=== PATIENT | male | born 1945 | race Caucasian/White ===

== ENCOUNTER 2025-02-09 16:54 | Inpatient (IN) | payer MEDICARE, OTHER, SELFPAY ==
[2025-02-09 17:35] VITALS: BMI 32.8
--- NOTE | 2025-02-09 18:04 | HP.PCM_ITS ---
HPI - General General Date of Admission: 02/09/25 Date of Service: 02/11/25 Chief Complaint: Here for rehabilitation. HPI Narrative ANDREW ARNOLD, is a 79 Male who presents with followin01/28/2025 Admit [facility] with malaise, tachycardia, after left ganglion cyst removal. Vancomycin, Zosyn, Clindamycin, pressors, panculture, IV fluids ID consult for septic shock 2/2 left hand cellulitis/abscess. Insulin drip, IV fluids for diabetic ketoacidosis, glucose 528. Trend troponin, heparin drip for elevated troponin. Trend AST/ALT for transaminitis 2/2 septic shock. IV fluids, Hold Lisinopril, avoid nephrotoxins for acute kidney injury. 01/29/2025 Blood cultures positive for strep 2 out of 2 bottles, Lactic acid improved from 5.8 to 2.9. Vancomycin, Zosyn, Clindamycin. Urinalysis positive for ketones for DKA. Troponin 247, 1046, 2216 2/2 demand ischemia/sepic shock, Cardiology consulted. 01/30/2025 Echo EF 43% Global systolic dysfunction. Stop IV fluids for acute HFpEF. Change antibiotics from Vancomycin, Zosyn, Clindamycin to PCN G per Infectious Disease. 01/31/2025 CT left hand negative for septic arthritis. SHAHAB to rule out endocarditis. Creatinine 1.65, 2.26, 3.06, Nephrology consulted. Hines catheter with good urine output. 02/01/2025 OR incision and drainage left hand today. PCN G for strep bacteremia, septic shock, left hand abscess/cellulitis. Renal ultrasound negative. Creatinine improved to 2.53. 02/02/2025 Continue PCN G. SHAHAB postponed to 02/05/2025. Lantus 30 units bid for diabetes mellitus II, DKA, sugar improved. Creatinine improved to .95. 02/03/2025 Surgical cultures grew gram positive cocci. Repeat blood culture 02/01/2025 positive growing strep agalactiae. Encephalopathy resolved. Creatinine improved to 1.50. Restart Eliquis soon for atrial fibrillation. 02/04/2025 NSTEMI 2/2 demand ischemia. Decrease Lantus to 25 units bid for Diabetes Mellitus II, DKA. Stop heparin drip for elevated troponin 2/2 demand ischemia 2/2 septic shock. 02/05/2025 SHAHAB negative for vegetations. Continue PCN G for strep bacteremia, repeat blood culture negative. Hemoccult positive, GI recommends restarting Eliquis, no sign of bleeding. 02/06/2025 Ceftriaxone IV at discharge for strep agalactiae for convenience of administration. Restart Lexapro for depression. Nystatin for thrush. 02/07/2025 Flomax, bladderscan, consider hines for urinary retention. Resume Eliquis, GI deferred endoscopy. Fluconazole for 2 weeks for esophageal candidiasis. 02/08/2025 Ceftriaxone IV for 3-4 weeks for strep agalactiae bacteremia. Fluconazole for esophageal candidiasis. 02/09/2025 Admit to TCU with debility, here for rehabilitation, strengthening, intravenous antibiotics, prior to discharge home with significant other. [facility] Medical History History of subdural hematoma TIA (transient ischemic attack) Essential (primary) hypertension Mood disorder Type 2 diabetes mellitus with hyperglycemia Atrial fibrillation Coronary artery disease Blood in stool BPH (benign prostatic hyperplasia) Urinary retention Cellulitis of left hand Abscess of left hand Acute heart failure with preserved ejection fraction (HFpEF) Transaminitis Acute kidney injury Demand ischemia Elevated troponin Diabetic ketoacidosis Acute encephalopathy Streptococcal bacteremia Septic shock Debility Home Medications ?Medication ?Instructions ?Recorded ?Last Taken ?Type apixaban 5 mg tablet (Eliquis) 5 mg PO BID blood thinn er 02/09/25 Unknown History ascorbic acid (vitamin C) 500 mg 500 mg PO .every othe r day 02/09/25 Unknown History capsule supplement aspirin 81 mg tablet 81 mg PO DAILY heart 5 Unknown History bumetanide 1 mg tablet 0.5 mg PO QODAY diuretic 09/04 Unknown History ceftriaxone 2 gram intravenous 2 g IV DAILY infection 02/09/25 Unknown History solution docusate sodium 100 mg capsule 100 mg PO BID bowel 09/04 Unknown History escitalopram oxalate 10 mg tablet 10 mg PO QHS mood Unknown History fluconazole 200 mg tablet 200 mg PO DAILY infection Unknown History insulin glargine 100 unit/mL 5 unit subcut QHS diabete s 02/09/25 Unknown History subcutaneous solution (Lantus U-100 Insulin) lisinopril 5 mg tablet 5 mg PO DAILY heart health 0 8/02/25 Unknown History metoprolol succinate 25 mg 25 mg PO DAILY heart health 02/09/25 Unknown History tablet,extended release 24 hr pantoprazole 40 mg tablet,delayed 40 mg PO BID stomach 02/09/25 Unknown History release potassium chloride 10 mEq 10 meq PO QODAY supplement 0 02/09/25 Unknown History tablet,extended release sennosides 8.6 mg-docusate sodium 1 tab-cap PO BID bow el 02/09/25 Unknown History 50 mg tablet (Senna with Docusate Sodium) simvastatin 40 mg tablet 40 mg PO QHS cholesterol 09/04 Unknown History tamsulosin 0.4 mg capsule 0.4 mg PO .After evening josh l 02/09/25 Unknown History prostate Allergy/AdvReac Type Severity Reaction Status Date / Time pioglitazone (From Actos) AdvReac Other Verified 02/09/25 19:11 Family History Mother COPD (chronic obstructive pulmonary disease) Father Diabetes Grandmother CVA (cerebral vascular accident) Surgical History Status post de Quervain release surgery History of oral cancer History of cardiac cath 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 Gaetano Menendez MD) household members: significant other and other details: Sister in law Smoking Status: Former smoker Smokeless tobacco user: chewing tobacco alcohol intake: never substance use type: does not use ROS Constitutional Constitutional: Reports weakness; Denies chills, fever(s) or weight gain ENT HEENT: Denies headache(s), nasal congestion or nasal discharge Cardiovascular Cardiovascular: Denies chest pain or palpitations Respiratory/Chest Respiratory/Chest: Denies cough, excessive phlegm production or shortness of breath with exertion Gastrointestinal Gastrointestinal: Denies abdominal pain, nausea or vomiting Genitourinary Genitourinary: Denies dysuria Musculoskeletal Musculoskeletal: Denies joint pain or joint swelling Integumentary Integumentary: Denies rash or wounds Neurologic Neurologic: Denies focal weakness, numbness or tingling Psychiatric Psychiatric: Denies anxiety, auditory hallucinations, depression, homicidal ideation or suicidal ideation Physical Exam Const alert General Appearance: cooperative HEENT normocephalic Eyes PERRL and EOMs intact bilaterally Neck supple, no JVD and no carotid bruits Resp normal respiratory effort, normal air movement and clear to auscultation bilaterally Cardio regular rate and regular rhythm GI normal to inspection, nondistended, normoactive bowel sounds, non-tender and non-distended Extremity normal capillary refill Extremity Narrative: RUE PICC, Left hand dressed with Kerlix. General Extremity: Negative for edema Skin no rashes or lesions noted General Skin Exam: no breakdown Psych affect normal Appearance: appropriate Results Lab / Micro Data 02/10/25 06:53 02/10/25 06:53 Assessment & Plan Assessment/Plan (1) Debility: (2) Septic shock: (3) Streptococcal bacteremia: (4) Acute encephalopathy: (5) Diabetic ketoacidosis: (6) Elevated troponin: (7) Demand ischemia: (8) Acute kidney injury: (9) Transaminitis: (10) Acute heart failure with preserved ejection fraction (HFpEF): (11) Abscess of left hand: (12) Cellulitis of left hand: (13) Urinary retention: (14) BPH (benign prostatic hyperplasia): (15) Blood in stool: (16) Coronary artery disease: (17) Atrial fibrillation: (18) Type 2 diabetes mellitus with hyperglycemia: (19) Mood disorder: (20) Essential (primary) hypertension: (21) TIA (transient ischemic attack): (22) History of subdural hematoma: PLAN: Plan 79 year old male with below past medical history hospitalized for septic shock 2/2 left hand abscess/cellulitis, strep agalactiae bacteremia, complicated by encephalopathy, diabetic ketoacidosis, acute kidney injury, transaminitis, elevated troponin 2/2 demand ischemia, acute HFpEF, urinary retention, admitted to TCU with debility, here for rehabilitation, strengthening, intravenous antibiotics, prior to discharge home with significant other. * Debility - PT/OT. * Pain - Tylenol 650mg q6 prn. * Bowel - senna/colace 1 tablet bid. * Adult immunization - Administer pneumonia vaccine, covid vaccine, flu vaccine. * DVT prophylaxis - Hold, reassess after labs back. * Septic shock/left hand abscess/Strep Agalactiae bacteremia - Ceftriaxone 2gm iv daily thru 03/02/2025, Consult Dr. Snyder for expert care. * Esophageal candidiasis - Fluconazole 200mg daily thru 02/20/2025. * GERD - Pantoprazole 40mg bid. * BPH - Tamsulosin 0.4mg daily. * Diabetes Mellitus II - Lantus 5 units qhs, Ozempic 1mg per week if available. * Vitamin C deficiency - Vitamin C 500mg daily. * Coronary artery disease - Metoprolol succinate 25mg daily, Lisinopril 5mg daily, Aspirin 81mg daily. * Chronic HFpEF - Metoprolol succinate 25mg daily, Lisinopril 5mg daily, Bumex 1mg 1/2 tablet every other day. * Hypokalemia - KCL ER 10meq every other day. The following psychotropic medication was present on admission: Lexapro 10mg daily. Psychotropic medication therapy is indicated for a diagnosis of: Major Depression. Based on my clinical evaluation, continuation of the medication is necessary at this time. Gradual dose reduction plan (select one): ____ GDR will be attempted. Will monitor patient symptoms and behaviors in response to GDR. __x__ GRD contraindicated. 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
[2025-02-09 19:00] VITALS: BP 120/51; PULSE 51; RESP 18; TEMP 36.8; O2SAT 94
[2025-02-09] MEDS: Insulin Glargine-YFGN 100 UNIT/ML Pen SC (21:45)
[2025-02-09] MEDS: Senna/Docusate Sodium 1 Tablet PO (21:45)
[2025-02-09 22:00] VITALS: BMI 32.7
--- NOTE | 2025-02-10 01:50 | NURSING ---
Order received for PICC placement due to IV ATB through 02/27/25. Order placed to [facility].
[2025-02-10 07:17] LABS: Hematocrit 23.3 % (40-54); Hemoglobin 7.5 g/dL (13.0-16.5); Immature Granulocytes Count 0.100 X10^3/uL (0.0-0.0); Mean Corp Hgb Conc 32.2 g/dL (32-36); Mean Corpuscular Volume 82.0 fL (80-94); Mean Platelet Vol. 8.4 fl (6.2-12.0); NRBC Flagged by Analyzer 0 % (0-5); Platelet Count 346 K/mm3 (150-450); RBC Distribution Width CV 14.5 % (11.6-14.6); RBC Distribution Width SD 42.7 fl (35.1-43.9); Red Blood Count 2.84 M/mm3 (4.6-6.2); White Blood Count 8.7 K/mm3 (4.4-11.0)
[2025-02-10 07:48] LABS: Anion Gap 11 (5-15); BUN 12 mg/dL (4-19); BUN/Creat Ratio 10.9 RATIO (10-20); Calcium,Total 8.5 mg/dL (7.6-11.0); Carbon Dioxide 25.6 mmol/L (21.0-32.0); Chloride 95 mmol/L (98-108); Estimated Creatinine Clearance 60.99 ml/min (50-250); Glucose 204 mg/dL (70-99); Potassium 3.9 mmol/L (3.3-5.1)
[2025-02-10 09:33] VITALS: BP 101/53; PULSE 88; RESP 16; TEMP 36.7; O2SAT 93
[2025-02-10 09:37] VITALS: PULSE 88
[2025-02-10] MEDS: Senna/Docusate Sodium 1 Tablet PO ×2 (09:37→21:37)
[2025-02-10] MEDS: Tuberculin,Purif.prot.deriv. 50 TU/ML Vial 0.1 ML ID (09:37)
[2025-02-10] MEDS: Metoprolol(XL)Succ 25 MG Tablet PO (09:37)
[2025-02-10 13:30] LABS: Iron 23 ug/dL (65-175); Iron Binding Capacity,Unsat 205 ug/dL (228-428)
[2025-02-10 13:59] LABS: Iron Binding Capacity,Total 228 ug/dL (250-450)
--- NOTE | 2025-02-10 14:23 | RAD_ITS ---
PROCEDURE: CHEST 1 VIEW (PORTABLE) 02/10/2025 REASON FOR EXAM: PICC PLACEMENT TECHNIQUE: Frontal view of the chest. COMPARISON: None. FINDINGS: Hardware: Right-sided PICC line tip is seen near the cavoatrial junction. Heart: Normal size Lungs: Grossly clear Bones: No aggressive process. Other: RAD/Chest 1 View (Portable) IMPRESSION: PICC line in satisfactory position. No acute process in the chest. Reading Location: [facility]
--- NOTE | 2025-02-10 14:30 | PHA.CONS_ITS ---
Documented by User: Sheryl Castillo 02/10/25 16:36 TCU RX Drug Regimen Review Subjective/Objective Subjective/Objective Subjective: TCU Admission. 79 YOM presented to outside ER with malaise/tachycardia following ganglion cyst removal. Hospitalized for septic shock 2/2 left hand abscess/cellulitis, strep agalactiae bacteremia, complicated by encephalopathy, diabetic ketoacidosis, acute kidney injury, transaminitis, elevated troponin 2/2 demand ischemia, acute HFpEF, urinary retention. Admitted to TCU with debility for strengthening, rehabilitation and IV antibiotics. Objective: Allergies pioglitazone (From Gini) Adverse Reaction (Verified 02/09/25 19:11) Other GI irritation Current Medications Generic Name Dose Route Start Last Admin Trade Name Freq PRN Reason Stop Dose Admin Acetaminophen 650 mg 02/09/25 18:32 Acetaminophen 325 Mg Tablet PO Q6H PRN PRN Pain Score 1-10 Apixaban 5 mg 02/09/25 22:00 Apixaban 5 Mg Tablet PO BID [facility] Ascorbic Acid 500 mg 02/11/25 10:00 Ascorbic Acid 500 Mg Tablet PO QODAY@1000 [facility] Aspirin 81 mg 02/10/25 08:00 02/10/25 09:36 Aspirin 81 Mg Tab.Chew PO 81 mg DAILY TEREZA Administration Atorvastatin Calcium 20 mg 02/09/25 22:00 Atorvastatin Calcium 20 Mg Tablet PO QHS TEREZA Bumetanide 0.5 mg 02/11/25 10:00 Bumetanide 0.5 Mg Tablet PO QODAY TEREZA Escitalopram Oxalate 10 mg 02/09/25 22:00 02/09/25 21:45 Escitalopram Oxalate 10 Mg Tablet PO 10 mg QHS TEREZA Administration Fluconazole 200 mg 02/10/25 10:00 02/10/25 09:36 Fluconazole 100 Mg Tablet PO 200 mg DAILY TEREZA Administration Ceftriaxone Sodium 2 gm/ 50 mls @ 100 mls/hr 02/10/25 10:00 Sodium Chloride IV 02/27/25 10:01 Q24 [facility] Insulin Glargine 5 unit 02/09/25 22:00 02/09/25 21:45 Insulin Glargine-Yfgn 100 Unit/Ml Pen SC 5 unit QHS TEREZA Administration Lisinopril 5 mg 02/10/25 10:00 02/10/25 09:37 Lisinopril 5 Mg Tablet PO 5 mg DAILY TEREZA Administration Protocol Metoprolol Succinate 25 mg 02/10/25 10:00 02/10/25 09:37 Metoprolol(Xl)Succ 25 Mg Tablet PO 25 mg DAILY TEREZA Administration Protocol Pantoprazole Sodium 40 mg 02/09/25 22:00 02/10/25 09:36 Pantoprazole Sodium 40 Mg Tablet PO 40 mg BID TEREZA Administration Potassium Chloride 10 meq 02/11/25 08:00 Potassium Chloride Oral Tablet 10 Meq PO QODAY@0800 [facility] Senna/Docusate Sodium 1 tablet 02/09/25 22:00 02/10/25 09:37 Senna/Docusate Sodium 1 Tablet PO 1 tablet BID [facility] Administration Tamsulosin HCl 0.4 mg 02/10/25 18:15 Tamsulosin Hcl 0.4 Mg Capsule PO 1815 [facility] Tuberculin PPD 0.1 ml 02/17/25 10:00 Tuberculin,Purif.Prot.Deriv. 50 Tu/Ml Vial ID 02/17/25 10:01 X1 ONE Problem List History of subdural hematoma (Acute) TIA (transient ischemic attack) (Acute) Essential (primary) hypertension (Acute) Mood disorder (Acute) Type 2 diabetes mellitus with hyperglycemia (Acute) Atrial fibrillation (Acute) Coronary artery disease (Acute) Blood in stool (Acute) BPH (benign prostatic hyperplasia) (Acute) Urinary retention (Acute) Cellulitis of left hand (Acute) Abscess of left hand (Acute) Acute heart failure with preserved ejection fraction (HFpEF) (Acute) Transaminitis (Acute) Acute kidney injury (Acute) Demand ischemia (Acute) Elevated troponin (Acute) Diabetic ketoacidosis (Acute) Acute encephalopathy (Acute) Streptococcal bacteremia (Acute) Septic shock (Acute) Debility (Acute) Vital Signs Temp Pulse Resp BP Pulse Ox O2 Del Method 98.1 F 88 16 101/53 L 93 Room Air 02/10/25 09:33 02/10/25 09:37 02/10/25 09:33 02/10/25 09:33 02/10/25 09:33 02/10/25 09:33 Oxygen Delivery Method Room Air Weight: 94.8 kg Body Mass Index (BMI) 32.7 Sodium 132 mmol/L (133-145) L 02/10/25 06:53 Potassium 3.9 mmol/L (3.3-5.1) 02/10/25 06:53 Chloride 95 mmol/L (98-108) L 02/10/25 06:53 Carbon Dioxide 25.6 mmol/L (21.0-32.0) 02/10/25 06:53 Anion Gap 11 (5-15) 02/10/25 06:53 BUN 12 mg/dL (4-19) 02/10/25 06:53 Creatinine 1.06 mg/dL (0.70-1.20) 02/10/25 06:53 Est GFR (MDRD) Non-Af 71 (>60) 02/10/25 06:53 BUN/Creatinine Ratio 10.9 RATIO (10-20) 02/10/25 06:53 Glucose 204 mg/dL (70-99) H 02/10/25 06:53 Assessment/Plan: 1. Pain: acetaminophen 650mg PO Q6H PRN pain 1-10. No PRN doses given. Please continue to monitor for increased pain and PRN usage. 2. Bowel: senna/docusate 1T PO BID. Please continue to monitor for constipation and diarrhea. No documented bowel movement at this time. 3. Septic shock/left hand abscess/step agalactiae bacteremia: ceftriaxone 2gm IV daily thru 02/27/25. ID consulted. Please continue to monitor for S/S of infection, diarrhea. 4. Esophageal candidiasis: fluconazole 200mg PO daily thru 02/20/25. Please continue to monitor for improvement in candidiasis, diarrhea and renal function. 5. CAD/chronic HFpEF: metoprolol succinate 25mg PO daily, lisinopril 5mg PO daily, aspirin 81mg PO daily, bumetanide 0.5mg PO every other day and atorvastatin 20mg PO QHS (on hold due to elevated transaminitis at previous facility). Please continue to monitor BP (101/53 - 120/51), HR (88), renal function, cough, potassium (last 3.9mmol/L), edema. 6. GERD: pantoprazole 40mg PO BID. Please continue to monitor for S/S of GERD and diarrhea (Anita). 7. Diabetes mellitus II: insulin glargine 5units SC QHS. Please consider ordering a hemoglobin A1c as there is no level in the chart. Thanks. Please continue to monitor glucose (last 198mg/dL) and S/S of hypoglycemia. 8. BPH: tamsulosin 0.4mg PO daily. Please continue to monitor for S/S of BPH and BP. 9. Hypokalemia: potassium chloride 10meq PO every other day. Please continue to monitor potassium (last 3.9mmol/L). 10. Vitamin C deficiency: ascorbic acid 500mg PO daily. Please continue to monitor. Assessment/Plan for indications treated with psychotropic medications: 1. Major depression: escitalopram 10mg PO daily. Please see physician note regarding GDR. Monitor for diarrhea, nausea, headache, anxiety or drowsiness, suicidal thoughts or behaviors (Boxed Warning), symptoms of bleeding, symptoms of serotonin syndrome (including agitation, confusion, hyperreflexia, rigidity/myoclonus, tremor, tachycardia, tachypnea), sodium levels (last Na =132mmol/L). Monitor for efficacy including resident symptoms, behaviors and indications of distress. Monitor for tolerability including mental status, cognition, excessive sleepiness, withdrawal or decreased participation in activities and decline in physical functioning. Maximize use of nonpharmacologic/behavioral interventions to facilitate dose reduction or discontinuation as appropriate. Please evaluate the appropriateness of GDR unless contraindicated. If appropriate, GDR should be attempted in 2 separate quarters within the first year of use or admission to TCU. If GDR attempted, monitor resident symptoms/behaviors. Medical chart and medication regimen reviewed. The following medication irregularities or issues were identified: 1. Insulin glargine 5units SC QHS. Please consider ordering a hemoglobin A1c as there is no level in the chart. Thanks. Date Date of Note: 02/10/25 Documented by User: Dr. Gaetano Menendez MD 02/10/25 17:10 TCU RX Drug Regimen Review Provider Comments Provider responsibility Provider Comments to Recommendations by Pharmacy Agree
[2025-02-10] MEDS: 0.9% Normal Saline 250 ML IV.SOLN. IV (19:02)
[2025-02-10] MEDS: Ceftriaxone 2 GM in 0.9% Normal Saline (50mL MB+) 50 ML IV (19:02)
[2025-02-10] MEDS: Insulin Glargine-YFGN 100 UNIT/ML Pen 30 UNIT SC (21:36)
--- NOTE | 2025-02-11 07:09 | NURSING ---
dr Snyder texted this AM for consult order
--- NOTE | 2025-02-11 08:15 | NURSING ---
infusion center called pt will get blood tomorrow morning.
[2025-02-11 08:21] VITALS: BP 116/61; PULSE 79; RESP 18; TEMP 36.1; O2SAT 93
[2025-02-11 08:24] VITALS: PULSE 79
[2025-02-11] MEDS: Senna/Docusate Sodium 1 Tablet PO ×2 (08:24→20:42)
[2025-02-11] MEDS: Metoprolol(XL)Succ 25 MG Tablet PO (08:24)
[2025-02-11] MEDS: Potassium Chloride Oral Tablet 10 MEQ PO (08:24)
[2025-02-11] MEDS: 0.9% Saline Lock 10 ML Syringe IV ×2 (08:26→20:44)
[2025-02-11] MEDS: Ceftriaxone 2 GM in 0.9% Normal Saline (50mL MB+) 50 ML IV (08:27)
--- NOTE | 2025-02-11 10:50 | NURSING ---
I.D. here to see pt, reviewing chart
--- NOTE | 2025-02-11 11:30 | CON.PCM.ID_ITS ---
Assessment & Plan Assessment/Plan (1) Abscess of left hand: (2) Streptococcal bacteremia: PLAN: Reviewed [facility] records. Overall much improved. Ceftriaxone until 02/27, fluconazole until 02/20. Will follow, thank you (3) Esophageal candidiasis: HPI Consult Data Date of Consult: 02/11/25 HPI Narrative Reason for Consultation: hand infection HPI Narrative: ANDREW ARNOLD, is a 79 M who presented to [facility] 01/28/25 with several days worsening L hand pain, redness, swelling after ganglion cyst removal. Had associated fever and chills. Admitted with septic shock, started on vanc/zosyn/clinda. Also with DKA at that time. Seen by ID (Dr. Norman). Taken to OR 02/01 for I&D. Bcx with GBS. Picc placed. EGD showed esophagitis. Discharged to TCU on ceftriaxone and po fluc. Feeling better, no issues with picc, hand much improved, no n/v/d. Full ROS performed and neg except as noted above. [facility] Medical History History of subdural hematoma TIA (transient ischemic attack) Essential (primary) hypertension Mood disorder Type 2 diabetes mellitus with hyperglycemia Atrial fibrillation Coronary artery disease Blood in stool BPH (benign prostatic hyperplasia) Urinary retention Cellulitis of left hand Abscess of left hand Acute heart failure with preserved ejection fraction (HFpEF) Transaminitis Acute kidney injury Demand ischemia Elevated troponin Diabetic ketoacidosis Acute encephalopathy Streptococcal bacteremia Septic shock Debility Home Medications ?Medication ?Instructions ?Recorded ?Last Taken ?Type apixaban 5 mg tablet (Eliquis) 5 mg PO BID blood thinn er 02/09/25 Unknown History ascorbic acid (vitamin C) 500 mg 500 mg PO .every othe r day 02/09/25 Unknown History capsule supplement aspirin 81 mg tablet 81 mg PO DAILY heart 5 Unknown History bumetanide 1 mg tablet 0.5 mg PO QODAY diuretic 09/04 Unknown History ceftriaxone 2 gram intravenous 2 g IV DAILY infection 02/09/25 Unknown History solution docusate sodium 100 mg capsule 100 mg PO BID bowel 09/04 Unknown History escitalopram oxalate 10 mg tablet 10 mg PO QHS mood Unknown History fluconazole 200 mg tablet 200 mg PO DAILY infection Unknown History insulin glargine 100 unit/mL 5 unit subcut QHS diabete s 02/09/25 Unknown History subcutaneous solution (Lantus U-100 Insulin) lisinopril 5 mg tablet 5 mg PO DAILY heart health 0 02/09/25 Unknown History metoprolol succinate 25 mg 25 mg PO DAILY heart health 02/09/25 Unknown History tablet,extended release 24 hr pantoprazole 40 mg tablet,delayed 40 mg PO BID stomach 02/09/25 Unknown History release potassium chloride 10 mEq 10 meq PO QODAY supplement 0 02/09/25 Unknown History tablet,extended release sennosides 8.6 mg-docusate sodium 1 tab-cap PO BID bow el 02/09/25 Unknown History 50 mg tablet (Senna with Docusate Sodium) simvastatin 40 mg tablet 40 mg PO QHS cholesterol 09/04 Unknown History tamsulosin 0.4 mg capsule 0.4 mg PO .After evening josh l 02/09/25 Unknown History prostate Allergy/AdvReac Type Severity Reaction Status Date / Time pioglitazone (From Actos) AdvReac Other Verified 02/09/25 19:11 Family History Mother COPD (chronic obstructive pulmonary disease) Father Diabetes Grandmother CVA (cerebral vascular accident) Surgical History Status post de Quervain release surgery History of oral cancer History of cardiac cath 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 Gaetano Menendez MD) household members: significant other and other details: Sister in law Smoking Status: Former smoker Smokeless tobacco user: chewing tobacco alcohol intake: never substance use type: does not use Physical Exam Const alert and no apparent distress General Appearance: cooperative HEENT normocephalic and head/scalp atraumatic Eyes PERRL and EOMs intact bilaterally Neck supple and No nodes Resp normal air movement and clear to auscultation bilaterally Cardio regular rate and regular rhythm GI soft to palpation, non-tender and non-distended Extremity General Extremity: Negative for edema Skin no rashes or lesions noted Skin Narrative: L hand wrapped, minimal swelling, no redness, no drainage. Neuro CN's II-XII intact bilaterally Lab / Micro Data Attestation: I reviewed the patient's lab results. 02/10/25 06:53 02/10/25 06:53 Labs: Laboratory Results - last 24 hr 02/10/25 06:53: Hemoglobin A1c 8.3 H, Iron 23 L, TIBC 228 L, Iron Saturation 10.1, Unsaturated IBC 205 L 02/10/25 16:33: POC Glucose 349 H 02/10/25 17:12: Blood Type A POSITIVE, Antibody Screen NEGATIVE, Crossmatch See Detail 02/10/25 21:33: POC Glucose 317 H 02/11/25 06:24: POC Glucose 190 H Imaging Radiology Impression Chest X-Ray 02/10/25 14:23 IMPRESSION: PICC line in satisfactory position. No acute process in the chest. Reading Location[facility]
[2025-02-11 11:44] VITALS: PULSE 78; RESP 18
--- NOTE | 2025-02-11 12:02 | NURSING ---
dr munoz notified of sugar 100, new order to administer 5 units of humalog instead of 10units. insulin adjusted at bedtime also
--- NOTE | 2025-02-11 17:05 | CASEMGMT ---
Social Work MARY notified by RN that pt made comments of being better off during the end of his PT session. SW immediately met with pt in therapy gym, introduced self and role, and propelled pt back to his room. SW spoke with patient for about 40 minutes. Completed initial assessment throughout conversation. Pt wishes to be DNR-CCA, no intubation. Nursing notified. Educated to Medicare benefit and IV ATB through 02/27. Pt's goal is to DC home with SOMigdalia, of 5.5 years. SW inquired about advance directives and pt states his bankruptcy attorney has those and agreed to sign release of records for this worker to retrieve those. SW explored pt's comments with DIRECTOR OF HEALTH CARE MARKETING. Pt stated, I should have never said that. I was just joking. People don't know me here. SW thanked pt for sharing his feelings as this worker and staff are here to assist pt. Pt asked if this conversation was confidential. SW confirmed. This worker explored feelings further, assured no judgement, as this worker wants to meet pt where he is at and determine how to assist pt moving forward. Pt agreed to continue speaking with this worker. SW inquired if pt had thoughts of going to sleep and not waking up in the last 30 days. Pt explained he only had those thoughts in the last two weeks, once or twice since the injury/cellulitis started in his left hand, which lead to TCU admission. Pt and SW identified the trigger to these thoughts are the pain in his hand, which pt made this comment while in therapy. Pt states he was only speaking out of pain, but once pain subsides, so do those thoughts of being better off . SW pressed further on thoughts of how pt would kill himself, intentions, plans. Pt visibly thought about those questions, but stated I can't answer that question, as he did not have a plan, and genuinely had not thought further about harming himself. SW provided possible examples such as strangulation, overdosing on medications, using a gun or other lethal means. Pt denied and does not have guns or access to ample medications at home. Pt denied known family history of suicide. SW asked pt to promise to notify this worker or other staff member if thoughts continue, intensify or if plans develop. Pt promised. SW explored protective factors. Pt identified his SO, Migdalia, as a protective factor and he does not want to leave her behind to live life without me, along with his other friends. Pt could not identify additional protective factors, though. SW questioned if Migdalia was going to be 'enough' of a protective factor to not act on future thoughts of suicide. Pt responded, you're good jokingly, but then confirmed she is his strongest protective factor. SW explored latter day. Pt states he believes in God, but does not have an opinion on suicide being a sin, as he began to analyze if God states suicide is a sin. Pt is sporadic with his thoughts at times. SW provided ongoing active listening and probed further as appropriate. Pt shared stories on his longterm, past marriage and 's , the of his daughter four years after his , his history of health issues, and his connection with current SO. SW explored pt's symptoms of depression and grief from loss of his about 8 years ago, and dtr. Pt stated his PCP started him on an antidepressant and referred him to grief support through hospice. Pt attended at the time. Pt shared he has feelings of guilt that stem from him continuing to live and dying a year after her colon cancer dx. SW discussed feelings and stages of grief. SW offered counseling but pt denied. SW provided ongoing emotional and verbal support during life reflection. Pt expressed gratitude several times for conversation with this worker. SW concluded conversation with ensuring pt notifies staff of any further feelings/thoughts/plans/intents of suicide, and this worker will communicate with Dr. Menendez on pain being a trigger, to determine if pt is on an appropriate pain medication regime. Pt agreed and appreciative. - SW left written communication with Dr. Menendez on above and request for adjusting pain medication regime. - SW concluded that although pt has risk factors of suicide, ie. gender, age, loss of and daughter, pain; pt identified a strong protective factor, thoughts are acute, and could not identify any plans or intentions of dying by suicide. SW will continue to monitor for any changes, but is cleared from SI precautions at this time. SW collaborated with Bulkhead Carpenter of and Bulkhead Carpenter agreed with this workers conclusion and intervention. Windy Castillo BUSINESS CASE ANALYST ACUTE CARE NURSE
[2025-02-11] MEDS: Magnesium Citrate 300 ML PO (17:48)
[2025-02-11] MEDS: Insulin Glargine-YFGN 100 UNIT/ML Pen 20 UNIT SC (23:09)
[2025-02-12] VITALS (10 sets, daily range): BP systolic 86–123; BP diastolic 42–58; PULSE 61–890; RESP 14–18; TEMP 35.6–36.2; O2SAT 93–98
[2025-02-12 06:53] LABS: Anion Gap 10 (5-15); BUN 21 mg/dL (4-19); BUN/Creat Ratio 14.4 RATIO (10-20); Calcium,Total 8.5 mg/dL (7.6-11.0); Carbon Dioxide 28.1 mmol/L (21.0-32.0); Chloride 97 mmol/L (98-108); Estimated Creatinine Clearance 44.90 ml/min (50-250); Glucose 169 mg/dL (70-99); Potassium 5.0 mmol/L (3.3-5.1)
[2025-02-12] MEDS: Senna/Docusate Sodium 1 Tablet PO ×2 (07:57→22:54)
[2025-02-12] MEDS: Metoprolol(XL)Succ 25 MG Tablet PO (07:57)
--- NOTE | 2025-02-12 08:20 | NURSING ---
left unit for
[2025-02-12] MEDS: 0.9% Saline Lock 10 ML Syringe IV ×4 (13:21→23:22)
[2025-02-12] MEDS: Ceftriaxone 2 GM in 0.9% Normal Saline (50mL MB+) 50 ML IV (13:43)
--- NOTE | 2025-02-12 13:43 | NURSING ---
pt returned from unit
--- NOTE | 2025-02-12 14:50 | WOUNDNOTE ---
wound photo: left hand
--- NOTE | 2025-02-12 15:29 | CHAPLAIN ---
Type of Pastoral Visit ___ Initial Visit ___ Follow-up Visit ___ On-call Visit ___ General Patient Visit ___ Spiritual Assessment ___ Family Conference ___ Bereavement ___ Rapid Response ___ Code Blue ___ Other (describe below) Pastoral Care Referral From ___ Patient ___ Family ___ Nurse ___ Physician ___ Nonprofit Manager ___ Manager [place] ___ Other (describe below) Sacrament/Intervention ___ Active listening ___ Anointing ___ Anglican ___ Bereavement ___ Communion ___ Chanelle exploration ___ ___ Life review ___ Prayer ___ Reconciliation ___ Sacrament of Sick ___ Supportive presence ___ Wedding ___ Other (describe below) Pastoral Comments made three attempts today to visit this patient but he was unavailable or having patient care or in therapy
--- NOTE | 2025-02-12 23:17 | NURSING ---
Addendum entered by Rose Cartagena 02/13/25 00:11: IV Glucagon administered per order. Rechecked blood sugar, increased to 137. Original Note: Patient's blood sugar 55 at HS. Patient given milkshake. Recheck blood sugar increased to 66. Gave patient another milkshake and snack. Recheck blood sugar decreased to 59. Consulted Dr. Menendez via telephone, new orders to discontinue all insulin on eMAR and administer x1 dose of IV Glucagon 1mg. Orders read back and verified.
[2025-02-12] MEDS: Glucagon 1 MG/ML Syringe IV (23:23)
[2025-02-13 06:21] LABS: Anion Gap 11 (5-15); BUN 26 mg/dL (4-19); BUN/Creat Ratio 19.7 RATIO (10-20); Calcium,Total 8.4 mg/dL (7.6-11.0); Carbon Dioxide 24.6 mmol/L (21.0-32.0); Chloride 93 mmol/L (98-108); Estimated Creatinine Clearance 49.35 ml/min (50-250); Glucose 164 mg/dL (70-99); Potassium 5.1 mmol/L (3.3-5.1)
[2025-02-13 09:01] VITALS: BP 103/53; PULSE 71; RESP 16; TEMP 35.9; O2SAT 94
[2025-02-13 09:45] VITALS: PULSE 71
[2025-02-13] MEDS: Metoprolol(XL)Succ 25 MG Tablet PO (09:45)
[2025-02-13] MEDS: Senna/Docusate Sodium 1 Tablet PO ×2 (09:45→21:42)
[2025-02-13] MEDS: Glucerna Shake 120 ML LIQUID PO ×3 (09:45→17:26)
[2025-02-13] MEDS: Ceftriaxone 2 GM in 0.9% Normal Saline (50mL MB+) 50 ML IV (09:47)
[2025-02-13] MEDS: 0.9% Saline Lock 10 ML Syringe IV (09:50)
[2025-02-13 10:00] VITALS: PULSE 71; RESP 18; O2SAT 94
[2025-02-13 10:16] LABS: Osmolality, Serum 291 mOsm/KG (280-301)
[2025-02-13 10:17] LABS: Osmolality, Urine 416 mOsm/KG
--- NOTE | 2025-02-13 14:07 | CASEMGMT ---
Social Work IDT met with patient, SO, brother, GAVIN and son for care plan meeting. Discussed patient's progress in PT/OT/ST/SN/RDN. Educated to Medicare benefit. Provided pt/family with written communication of insurance process and copay coverage during stay. SO having difficulty comprehending fluid restriction and sodium levels explained by the RDN, along with SW insurance information explanation. Pt is on IV ATB through 02/27. IDT will assess pt's progress at that time of IV stop date to determine pt's overall readiness to DC. Offered SO to attend therapy training closer to DC to ensure she can provide assistance needed to pt. SW will continue to follow for DC planning. SW signed release of records and secure emailed to research attorney's office to obtain advance directives. Windy SCHAEFERW
--- NOTE | 2025-02-13 15:34 | NURSING ---
pt sig other Migdalia had many questions regarding fluid restriction, low sodium, IV ATBs, sugars & Dr Menendez. pt verbalized understanding. Education provided on all.
[2025-02-13 16:16] LABS: Hematocrit 28.1 % (40-54); Hemoglobin 8.8 g/dL (13.0-16.5)
[2025-02-13 17:30] VITALS: BMI 33.5
--- NOTE | 2025-02-13 18:54 | NURSING ---
dr munoz placed new order for consult DR Gar d/t anemia & + occult stool. pt and family updated.
[2025-02-14 06:21] LABS: Anion Gap 8 (5-15); BUN 24 mg/dL (4-19); BUN/Creat Ratio 19.3 RATIO (10-20); Calcium,Total 8.5 mg/dL (7.6-11.0); Carbon Dioxide 27.5 mmol/L (21.0-32.0); Chloride 94 mmol/L (98-108); Estimated Creatinine Clearance 53.21 ml/min (50-250); Glucose 177 mg/dL (70-99); Potassium 5.0 mmol/L (3.3-5.1)
[2025-02-14] MEDS: Glucerna Shake 120 ML LIQUID PO ×3 (08:03→17:21)
[2025-02-14 08:06] VITALS: PULSE 71
[2025-02-14] MEDS: Senna/Docusate Sodium 1 Tablet PO ×2 (08:06→21:25)
[2025-02-14] MEDS: Metoprolol(XL)Succ 25 MG Tablet PO (08:06)
--- NOTE | 2025-02-14 08:38 | NURSING ---
Clinical Research Director Note; Activity Asset: Aram Tenorio is independent in his choice of daily activities. His family and friends visit daily and bring him things he may need. Jona will work on word puzzles , watch tv, read and rest when not in therapy. He welcomes visits from the quality control chemist and therapy dog when available. Staff will remind him of weekly activities and respect his right to say no.
[2025-02-14 10:00] VITALS: RESP 18
[2025-02-14] MEDS: Ceftriaxone 2 GM in 0.9% Normal Saline (50mL MB+) 50 ML IV (10:22)
[2025-02-14 11:41] VITALS: BP 112/60; PULSE 71; RESP 18; TEMP 36.1; O2SAT 95
--- NOTE | 2025-02-14 13:19 | MDS.RN ---
Pain assessment for MDS complete.
--- NOTE | 2025-02-14 15:10 | CHAPLAIN ---
Type of Pastoral Visit _x__ Initial Visit ___ Follow-up Visit ___ On-call Visit ___ General Patient Visit ___ Spiritual Assessment ___ Family Conference ___ Bereavement ___ Rapid Response ___ Code Blue ___ Other (describe below) Pastoral Care Referral From _x__ Patient ___ Family ___ Nurse ___ Physician ___ Gusset Edger ___ Automobiles Salesperson ___ Other (describe below) Sacrament/Intervention _x__ Active listening ___ Anointing ___ Mormonism ___ Bereavement ___ Communion ___ Chanelle exploration ___ _x__ Life review _x__ Prayer ___ Reconciliation ___ Sacrament of Sick _x__ Supportive presence ___ Wedding ___ Other (describe below) Pastoral Comments patient is welcoming and talkative; pt speaks of his current health situation and the sudden turn of events that led to this hospitalization; pt is trying to deal with the emotional reality of a new health concern after having plans for his life and alf years; pt has a SO and this has been a blessing to him as they enjoy companionship and travel; pt and SO have been but found each other in these years; pt expresses some 'guilt' at enjoying this kind of life without his of 52 years who of cancer; pt expresses some frustration on the change of plans but says that he is getting good care and that he enjoys talking with people; pt welcomes future visits if possible; prayer is also welcomed; pt adds that he attends worship with his SO and has been finding this helpful for his own life journey
[2025-02-14] MEDS: 0.9% Saline Lock 10 ML Syringe IV (21:24)
[2025-02-15 05:49] LABS: Hematocrit 26.2 % (40-54); Hemoglobin 8.4 g/dL (13.0-16.5); Immature Granulocytes Count 0.040 X10^3/uL (0.0-0.0); Mean Corp Hgb Conc 32.1 g/dL (32-36); Mean Corpuscular Volume 84.8 fL (80-94); Mean Platelet Vol. 8.8 fl (6.2-12.0); NRBC Flagged by Analyzer 0 % (0-5); Platelet Count 243 K/mm3 (150-450); RBC Distribution Width CV 14.9 % (11.6-14.6); RBC Distribution Width SD 46.0 fl (35.1-43.9); Red Blood Count 3.09 M/mm3 (4.6-6.2); White Blood Count 5.4 K/mm3 (4.4-11.0)
[2025-02-15 06:14] LABS: Anion Gap 12 (5-15); BUN 23 mg/dL (4-19); BUN/Creat Ratio 20.1 RATIO (10-20); CRP 34.90 mg/L (0.0-3.0); Calcium,Total 8.7 mg/dL (7.6-11.0); Carbon Dioxide 23.6 mmol/L (21.0-32.0); Chloride 96 mmol/L (98-108); Estimated Creatinine Clearance 57.41 ml/min (50-250); Glucose 243 mg/dL (70-99); Potassium 4.4 mmol/L (3.3-5.1)
[2025-02-15 08:22] VITALS: PULSE 81
[2025-02-15] MEDS: Senna/Docusate Sodium 1 Tablet PO ×2 (08:22→22:45)
[2025-02-15] MEDS: Metoprolol(XL)Succ 25 MG Tablet PO (08:22)
[2025-02-15] MEDS: Glucerna Shake 120 ML LIQUID PO ×3 (08:26→17:15)
[2025-02-15] MEDS: Ceftriaxone 2 GM in 0.9% Normal Saline (50mL MB+) 50 ML IV (12:17)
[2025-02-15 16:00] VITALS: BP 108/55; PULSE 81; RESP 18; TEMP 36.8; O2SAT 93
--- NOTE | 2025-02-15 17:50 | CASEMGMT ---
Social Work SW completed BIMS () and PHQ-2 () for MDS assessment. Pt did not remember this worker from previous conversations. SW pressed further with mood. Pt raved about how happy I am to be getting my life back after incident. Pt stated I feel so good, I almost feel bad [for feeling so good]. SW assured pt had no further thoughts of harm. Windy Castillo ALTITUDE CHAMBER TECHNICIAN SOURCING ASSOCIATE
--- NOTE | 2025-02-15 17:50 | CASEMGMT ---
Social Work SW completed BIMS () and PHQ-2 () for MDS assessment. Pt did not remember this worker from previous conversations. SW pressed further with mood. Pt raved about how happy I am to be getting my life back after incident. Pt stated I feel so good, I feel bad. SW assured pt had no further thoughts of harm. Windy Castillo DANCE HALL HOST/HOSTESS PARCEL WRAPPER
[2025-02-15] MEDS: 0.9% Saline Lock 10 ML Syringe IV (22:49)
[2025-02-16] MEDS: Glucerna Shake 120 ML LIQUID PO ×3 (07:48→18:14)
[2025-02-16 07:50] VITALS: PULSE 78
[2025-02-16] MEDS: Senna/Docusate Sodium 1 Tablet PO ×2 (07:50→20:55)
[2025-02-16] MEDS: Metoprolol(XL)Succ 25 MG Tablet PO (07:50)
[2025-02-16 07:53] LABS: Anion Gap 11 (5-15); BUN 20 mg/dL (4-19); BUN/Creat Ratio 20.4 RATIO (10-20); Calcium,Total 8.9 mg/dL (7.6-11.0); Carbon Dioxide 23.4 mmol/L (21.0-32.0); Chloride 97 mmol/L (98-108); Estimated Creatinine Clearance 66.11 ml/min (50-250); Glucose 265 mg/dL (70-99); Potassium 4.5 mmol/L (3.3-5.1)
[2025-02-16 08:00] VITALS: BP 115/72; PULSE 87; RESP 16; TEMP 36.1; O2SAT 96
[2025-02-16] MEDS: 0.9% Saline Lock 10 ML Syringe IV (09:58)
[2025-02-16] MEDS: Ceftriaxone 2 GM in 0.9% Normal Saline (50mL MB+) 50 ML IV (09:58)
[2025-02-16 18:20] VITALS: RESP 16
[2025-02-16] MEDS: Insulin Glargine-YFGN 100 UNIT/ML Pen 10 UNIT SC (21:00)
[2025-02-17 06:13] VITALS: PULSE 83; RESP 18; O2SAT 95
[2025-02-17 07:49] VITALS: BP 123/59; PULSE 87; RESP 17; TEMP 36.1; O2SAT 95
[2025-02-17 07:54] VITALS: PULSE 87
[2025-02-17] MEDS: Metoprolol(XL)Succ 25 MG Tablet PO (07:54)
[2025-02-17] MEDS: Senna/Docusate Sodium 1 Tablet PO ×2 (07:54→20:56)
[2025-02-17] MEDS: Ceftriaxone 2 GM in 0.9% Normal Saline (50mL MB+) 50 ML IV (07:58)
[2025-02-17] MEDS: 0.9% Saline Lock 10 ML Syringe IV ×2 (07:58→20:55)
[2025-02-17] MEDS: Glucerna Shake 120 ML LIQUID PO ×3 (08:05→17:42)
[2025-02-17] MEDS: Tuberculin,Purif.prot.deriv. 50 TU/ML Vial 0.1 ML ID (10:58)
[2025-02-17] MEDS: Insulin Glargine-YFGN 100 UNIT/ML Pen 20 UNIT SC (21:02)
--- NOTE | 2025-02-18 00:01 | NURSING ---
NPO per order
[2025-02-18 08:10] VITALS: BP 140/82; PULSE 88; RESP 18; TEMP 36.3; O2SAT 96
[2025-02-18 08:13] VITALS: PULSE 88
[2025-02-18] MEDS: Ceftriaxone 2 GM in 0.9% Normal Saline (50mL MB+) 50 ML IV (08:13)
[2025-02-18] MEDS: Metoprolol(XL)Succ 25 MG Tablet PO (08:13)
[2025-02-18] MEDS: 0.9% Saline Lock 10 ML Syringe IV ×2 (08:16→22:32)
[2025-02-18] MEDS: 0.9% Normal Saline 250 ML IV.SOLN. IV (08:16)
[2025-02-18] MEDS: 0.9% Normal Saline (250mL Bag) 250 ML 15 ML IV (08:25)
--- NOTE | 2025-02-18 08:35 | NURSING ---
Die Maker Note; MDS for 02/16/2025 Complete
[2025-02-18 08:37] VITALS: BP 140/82; PULSE 88; RESP 18; TEMP 36.3; O2SAT 96; BMI 33.5
--- NOTE | 2025-02-18 08:49 | NURSING ---
Offered covid vaccine, VIS provided. Resident declines.
--- NOTE | 2025-02-18 08:57 | NURSING ---
attempted to call alan Negron significant other for EGD time today. no answer.
--- NOTE | 2025-02-18 11:13 | NURSING ---
Addendum entered by Analisa Kendrick 02/18/25 11:57: Call back, orders to remove sutures on 02/22/25. Ok to leave AVIATION MAINTENANCE INSTRUCTOR if healed or cover with DSD as needed as open area heals. No creams/lotions to site. F/u appt made for 03/01/25 at the [place] office. Original Note: Spoke with Dr. Cooper's nurse Paola, asked about removing sutures and let her know still small open area to middle of incision, no redness. She will call back with orders. Office #[phone].
--- NOTE | 2025-02-18 11:45 | NURSING ---
pt off unit via bed to endo
--- NOTE | 2025-02-18 13:56 | NURSING ---
pt returned from endo at this time.
[2025-02-18 14:30] VITALS: BP 98/45; PULSE 72; RESP 16; TEMP 36.2; O2SAT 96
[2025-02-18] MEDS: Glucerna Shake 120 ML LIQUID PO (17:13)
[2025-02-18 20:15] VITALS: PULSE 82; RESP 16; O2SAT 95
[2025-02-18] MEDS: Insulin Glargine-YFGN 100 UNIT/ML Pen 20 UNIT SC (22:32)
--- NOTE | 2025-02-19 07:19 | NURSING ---
Written communication left for Dr. Menendez regarding restarting Eliquis.
[2025-02-19] MEDS: Glucerna Shake 120 ML LIQUID PO ×3 (07:59→17:37)
[2025-02-19 08:02] VITALS: PULSE 62
[2025-02-19] MEDS: Metoprolol(XL)Succ 25 MG Tablet PO (08:02)
[2025-02-19] MEDS: APIXABAN 5 MG TABLET PO ×2 (08:04→21:54)
[2025-02-19 08:10] VITALS: BP 108/55; PULSE 62; RESP 18; TEMP 36.1; O2SAT 94
[2025-02-19] MEDS: Ceftriaxone 2 GM in 0.9% Normal Saline (50mL MB+) 50 ML IV (10:03)
[2025-02-19] MEDS: 0.9% Saline Lock 10 ML Syringe IV ×2 (11:10→21:50)
[2025-02-19 13:56] VITALS: BMI 33.0
--- NOTE | 2025-02-19 16:45 | NURSING ---
Pt BS was 66 troy crackers and peanut butter given and BS rechecked and was 71. More Peanut butter and Troy crackers given and rechecked 15 min later and was 82. Will continue to monitor.
[2025-02-19] MEDS: Senna/Docusate Sodium 1 Tablet PO (21:53)
[2025-02-19] MEDS: Insulin Glargine-YFGN 100 UNIT/ML Pen 15 UNIT SC (21:54)
[2025-02-20 05:13] VITALS: PULSE 64; RESP 18; O2SAT 94
[2025-02-20 08:10] VITALS: PULSE 83
[2025-02-20] MEDS: Metoprolol(XL)Succ 25 MG Tablet PO (08:10)
[2025-02-20] MEDS: Glucerna Shake 120 ML LIQUID PO ×3 (08:10→17:51)
[2025-02-20] MEDS: Senna/Docusate Sodium 1 Tablet PO (08:11)
[2025-02-20] MEDS: APIXABAN 5 MG TABLET PO ×2 (08:11→21:25)
[2025-02-20 08:16] VITALS: BP 107/59; PULSE 83; RESP 17; TEMP 36.8; O2SAT 92
[2025-02-20] MEDS: 0.9% Saline Lock 10 ML Syringe IV ×2 (10:30→21:31)
[2025-02-20] MEDS: Ceftriaxone 2 GM in 0.9% Normal Saline (50mL MB+) 50 ML IV (10:30)
[2025-02-20] MEDS: 0.9% Normal Saline 250 ML IV.SOLN. IV (10:31)
[2025-02-20] MEDS: Insulin Glargine-YFGN 100 UNIT/ML Pen 15 UNIT SC (21:25)
[2025-02-21 08:22] VITALS: BP 124/64; PULSE 81; RESP 17; TEMP 36.3; O2SAT 93
[2025-02-21] MEDS: Glucerna Shake 120 ML LIQUID PO ×3 (08:26→18:02)
[2025-02-21] MEDS: APIXABAN 5 MG TABLET PO ×2 (08:31→22:56)
[2025-02-21] MEDS: Senna/Docusate Sodium 1 Tablet PO (08:31)
[2025-02-21 08:32] VITALS: PULSE 81
[2025-02-21] MEDS: Metoprolol(XL)Succ 25 MG Tablet PO (08:32)
[2025-02-21] MEDS: Ceftriaxone 2 GM in 0.9% Normal Saline (50mL MB+) 50 ML IV (11:07)
[2025-02-21] MEDS: 0.9% Saline Lock 10 ML Syringe IV ×2 (11:08→23:05)
--- NOTE | 2025-02-21 12:54 | MDS.RN ---
Information for the MDS was obtained from review of the clinical record, interview of resident, staff, and direct observation of resident?s care.
[2025-02-21 22:00] VITALS: PULSE 85; RESP 16; O2SAT 93
[2025-02-21] MEDS: Insulin Glargine-YFGN 100 UNIT/ML Pen 15 UNIT SC (22:56)
--- NOTE | 2025-02-22 04:21 | NURSING ---
Four sutures removed this shift per order. Edges of wound well approximated. Center of wound open and draining. Adaptic, DSD, and kerlex applied to protect open area and promote healing per order. Pt denies further needs at this time. Call light and personal belongings within reach.
[2025-02-22 05:49] LABS: Hematocrit 27.0 % (40-54); Hemoglobin 8.7 g/dL (13.0-16.5); Immature Granulocytes Count 0.020 X10^3/uL (0.0-0.0); Mean Corp Hgb Conc 32.2 g/dL (32-36); Mean Corpuscular Volume 83.3 fL (80-94); Mean Platelet Vol. 9.3 fl (6.2-12.0); NRBC Flagged by Analyzer 0 % (0-5); POSITIVE MORPHOLOGY YES; Platelet Count 156 K/mm3 (150-450); RBC Distribution Width CV 15.2 % (11.6-14.6); RBC Distribution Width SD 46.4 fl (35.1-43.9); Red Blood Count 3.24 M/mm3 (4.6-6.2); White Blood Count 4.2 K/mm3 (4.4-11.0)
[2025-02-22 06:19] LABS: Differential Indicated SCAN CRITERIA MET
[2025-02-22 06:52] LABS: Differential Comment SCANNED
[2025-02-22 07:02] VITALS: PULSE 72; RESP 17; O2SAT 93
[2025-02-22 07:30] LABS: Anion Gap 10 (5-15); BUN 23 mg/dL (4-19); BUN/Creat Ratio 25.3 RATIO (10-20); Calcium,Total 8.6 mg/dL (7.6-11.0); Carbon Dioxide 24.0 mmol/L (21.0-32.0); Chloride 100 mmol/L (98-108); Estimated Creatinine Clearance 72.04 ml/min (50-250); Glucose 209 mg/dL (70-99); Potassium 4.2 mmol/L (3.3-5.1)
[2025-02-22 07:57] VITALS: BP 108/61; PULSE 84; RESP 16; TEMP 36.3; O2SAT 92
[2025-02-22] MEDS: Glucerna Shake 120 ML LIQUID PO ×3 (08:05→16:25)
[2025-02-22] MEDS: APIXABAN 5 MG TABLET PO ×2 (08:06→22:38)
[2025-02-22 08:07] VITALS: PULSE 84
[2025-02-22] MEDS: Senna/Docusate Sodium 1 Tablet PO (08:07)
[2025-02-22] MEDS: Metoprolol(XL)Succ 25 MG Tablet PO (08:07)
[2025-02-22 09:21] LABS: CRP 30.80 mg/L (0.0-3.0)
[2025-02-22] MEDS: Ceftriaxone 2 GM in 0.9% Normal Saline (50mL MB+) 50 ML IV (12:14)
[2025-02-22] MEDS: Insulin Glargine-YFGN 100 UNIT/ML Pen 15 UNIT SC (22:39)
--- NOTE | 2025-02-23 00:57 | NURSING ---
During pt care, pt's wrist appeared swollen and inflamed with fluid weeping out. Pt denied pain in the inflamed area. Area was not tender or hot to touch. Pt temperature WNL at 98.5. Area marked for re-evaluation. Written communication left for Dr. Menendez. Pt denies any needs at this time. Personal belonging and call light within reach.
[2025-02-23] MEDS: 0.9% Saline Lock 10 ML Syringe IV ×2 (06:49→10:35)
[2025-02-23 08:23] VITALS: PULSE 81
[2025-02-23] MEDS: APIXABAN 5 MG TABLET PO ×2 (08:23→20:06)
[2025-02-23] MEDS: Senna/Docusate Sodium 1 Tablet PO ×2 (08:23→20:06)
[2025-02-23] MEDS: Metoprolol(XL)Succ 25 MG Tablet PO (08:23)
[2025-02-23] MEDS: Glucerna Shake 120 ML LIQUID PO ×3 (08:23→17:47)
[2025-02-23 08:28] VITALS: BP 121/62; PULSE 81; RESP 17; TEMP 36.3; O2SAT 92
--- NOTE | 2025-02-23 10:00 | NURSING ---
Pt's left forearm red inflamed and warm to touch. Sent pictures VIA secure text. Dr. Menendez called this nurse and gave order to swab surgical incision of left hand for MRSA. Dr. Menendez also updated at this time that pt was bladder scanned for 600ml. N.O. received to reinsert Brenner and start pt on Finasteride 5 mg daily and increase Tamsulosin to BID. Orders read back.
[2025-02-23] MEDS: 0.9% Normal Saline 250 ML IV.SOLN. IV (10:34)
[2025-02-23] MEDS: Ceftriaxone 2 GM in 0.9% Normal Saline (50mL MB+) 50 ML IV (10:34)
[2025-02-23 12:55] LABS: Hematocrit 27.3 % (40-54); Hemoglobin 8.5 g/dL (13.0-16.5); Immature Granulocytes Count 0.030 X10^3/uL (0.0-0.0); Mean Corp Hgb Conc 31.1 g/dL (32-36); Mean Corpuscular Volume 84.8 fL (80-94); Mean Platelet Vol. 9.4 fl (6.2-12.0); NRBC Flagged by Analyzer 0 % (0-5); POSITIVE MORPHOLOGY YES; Platelet Count 183 K/mm3 (150-450); RBC Distribution Width CV 15.3 % (11.6-14.6); RBC Distribution Width SD 47.2 fl (35.1-43.9); Red Blood Count 3.22 M/mm3 (4.6-6.2); White Blood Count 4.8 K/mm3 (4.4-11.0)
[2025-02-23 13:06] LABS: Anion Gap 11 (5-15); BUN 21 mg/dL (4-19); BUN/Creat Ratio 21.3 RATIO (10-20); CRP 39.10 mg/L (0.0-3.0); Calcium,Total 8.6 mg/dL (7.6-11.0); Carbon Dioxide 25.3 mmol/L (21.0-32.0); Chloride 100 mmol/L (98-108); Estimated Creatinine Clearance 66.15 ml/min (50-250); Glucose 190 mg/dL (70-99); Potassium 4.2 mmol/L (3.3-5.1); Uric Acid 5.5 mg/dL (3.5-7.2)
[2025-02-23 13:14] LABS: Differential Indicated SCAN CRITERIA MET
[2025-02-23 13:41] LABS: Differential Comment SCANNED
[2025-02-23 17:55] LABS: Staph aureus DNA By PCR NEGATIVE (Negative)
[2025-02-23] MEDS: Insulin Glargine-YFGN 100 UNIT/ML Pen 15 UNIT SC (20:07)
[2025-02-24 02:43] VITALS: O2SAT 95
[2025-02-24 08:06] VITALS: PULSE 78
[2025-02-24] MEDS: APIXABAN 5 MG TABLET PO (08:06)
[2025-02-24] MEDS: Metoprolol(XL)Succ 25 MG Tablet PO (08:06)
[2025-02-24] MEDS: Senna/Docusate Sodium 1 Tablet PO (08:06)
[2025-02-24] MEDS: Glucerna Shake 120 ML LIQUID PO (08:07)
[2025-02-24 08:18] VITALS: BP 108/55; PULSE 78; RESP 17; TEMP 36.8
[2025-02-24] MEDS: 0.9% Saline Lock 10 ML Syringe IV (10:14)
[2025-02-24] MEDS: Ceftriaxone 2 GM in 0.9% Normal Saline (50mL MB+) 50 ML IV (10:14)
--- NOTE | 2025-02-24 10:49 | NURSING ---
Pt Left wrist more swollen red and painful Dr. Menendez updated N.O. received for MRI without contrast if able to do today if not do a Cat Scan with contrast. Order read back. MRI called and unable to get pt in today. Written order Faxed to CT scan. Pt updated.
--- NOTE | 2025-02-24 13:46 | NURSING ---
Dr. Menendez updated on CT scan of left wrist/hand. N.O. received to send pt to ER. Report called to Anette HEDRICK.
--- NOTE | 2025-02-24 15:02 | DS.PCM_ITS ---
Providers Date of Admission: 02/09/25 Primary Care Physician: VIVIEN FOREMAN MD Consultations 02/09/25 18:40 Consult: Infectious Disease Routine Consulting Provider: Nik Snyder Reason for Consult: Left hand abscess/S. Agalactiae bacteremia. EMERGENT Consult: No Notified: Yes Date Notified: 02/11/25 Time Notified: 07:09 Method of Notification: Text 02/09/25 19:45 Consult: Onc/Wound/vamp cut out worker Routine Comment: 02/12/25 17:19 Consult: Gastroenterology Routine Consulting Provider: Lexie Gastroenterology Reason for Consult: Anemia, +hemoccult. EMERGENT Consult: No Notified: Yes Date Notified: 02/13/25 Time Notified: 12:36 Method of Notification: Text Reason For Visit: LEFT HAND ABSCESS, SEPTIC SHOCK Diagnosis Discharge Diagnosis (1) Abscess of left hand: Status: Acute Code(s): L02.512 - Cutaneous abscess of left hand (2) Streptococcal bacteremia: Status: Acute Code(s): R78.81 - Bacteremia; B95.5 - Unspecified streptococcus as the cause of diseases classified elsewhere (3) Esophageal candidiasis: Status: Acute Code(s): B37.81 - Candidal esophagitis Plan 79 year old male with below past medical history hospitalized for septic shock 2/2 left hand abscess/cellulitis, strep agalactiae bacteremia, complicated by encephalopathy, diabetic ketoacidosis, acute kidney injury, transaminitis, elevated troponin 2/2 demand ischemia, acute HFpEF, urinary retention, admitted to TCU with debility, here for rehabilitation, strengthening, intravenous antibiotics, prior to discharge home with significant other. * Debility - PT/OT. * Pain - Tylenol 650mg q6 prn. * Bowel - senna/colace 1 tablet bid. * Adult immunization - Administer pneumonia vaccine, covid vaccine, flu vaccine. * DVT prophylaxis - Hold, reassess after labs back. * Septic shock/left hand abscess/Strep Agalactiae bacteremia - Ceftriaxone 2gm iv daily thru 03/02/2025, Consult Dr. Snyder for expert care. * Esophageal candidiasis - Fluconazole 200mg daily thru 02/20/2025. * GERD - Pantoprazole 40mg bid. * BPH - Tamsulosin 0.4mg daily. * Diabetes Mellitus II - Lantus 5 units qhs, Ozempic 1mg per week if available. * Vitamin C deficiency - Vitamin C 500mg daily. * Coronary artery disease - Metoprolol succinate 25mg daily, Lisinopril 5mg daily, Aspirin 81mg daily. * Chronic HFpEF - Metoprolol succinate 25mg daily, Lisinopril 5mg daily, Bumex 1mg 1/2 tablet every other day. * Hypokalemia - KCL ER 10meq every other day. The following psychotropic medication was present on admission: Lexapro 10mg daily. Psychotropic medication therapy is indicated for a diagnosis of: Major Depression. Based on my clinical evaluation, continuation of the medication is necessary at this time. Gradual dose reduction plan (select one): ____ GDR will be attempted. Will monitor patient symptoms and behaviors in response to GDR. __x__ GRD contraindicated. Reason contraindicated: stable chronic senior living use. Medications at Discharge Home Medications apixaban 5 mg tablet (Eliquis) 5 mg PO BID blood thinner 02/09/25 Held on 02/18/25. Instructions: Ordered ascorbic acid (vitamin C) 500 mg capsule 500 mg PO .every other day supplement 02/09/25 aspirin 81 mg tablet 81 mg PO DAILY heart 02/09/25 bumetanide 1 mg tablet 0.5 mg PO QODAY diuretic 02/09/25 ceftriaxone 2 gram intravenous solution 2 g IV DAILY infection 02/09/25 docusate sodium 100 mg capsule 100 mg PO BID bowel 02/09/25 escitalopram oxalate 10 mg tablet 10 mg PO QHS mood 02/09/25 fluconazole 200 mg tablet 200 mg PO DAILY infection 02/09/25 insulin glargine 100 unit/mL subcutaneous solution (Lantus U-100 Insulin) 20 unit subcut QHS diabetes 02/09/25 lisinopril 5 mg tablet 5 mg PO DAILY heart health 02/09/25 metoprolol succinate 25 mg tablet,extended release 24 hr 25 mg PO DAILY heart health 02/09/25 pantoprazole 40 mg tablet,delayed release 40 mg PO BID stomach 02/09/25 potassium chloride 10 mEq tablet,extended release 10 meq PO QODAY supplement 02/09/25 Held on 02/18/25. Instructions: Ordered sennosides 8.6 mg-docusate sodium 50 mg tablet (Senna with Docusate Sodium) 1 tab-cap PO BID bowel 02/09/25 tamsulosin 0.4 mg capsule 0.4 mg PO .After evening meal prostate 02/09/25 acetaminophen 500 mg capsule 1,000 mg PO Q8 02/18/25 atorvastatin 20 mg tablet (Lipitor) 20 mg PO QHS 02/18/25 bisacodyl 10 mg rectal suppository 10 mg AK DAILY PRN constipation 02/18/25 insulin lispro 100 unit/mL subcutaneous solution 7 unit subcut TID 02/18/25 nystatin 150 million unit oral powder unit 02/18/25 Hospital Course Operations - (See below.) Procedures EGD Summary of Care Provided Minutes Spent on Discharge: 15 Hospital Course: 79 year old male with below past medical history hospitalized for septic shock 2/2 left hand abscess/cellulitis, strep agalactiae bacteremia, complicated by encephalopathy, diabetic ketoacidosis, acute kidney injury, transaminitis, elevated troponin 2/2 demand ischemia, acute HFpEF, urinary retention, admitted to TCU with debility, here for rehabilitation, strengthening, intravenous antibiotics, prior to discharge home with significant other. 02/18/2025 Dr. Gar EGD: Impression: - Normal esophagus. 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 Treated with a heater probe. - Non-bleeding gastric ulcers with no stigmata of bleeding. Biopsied. - No gross lesions in the entire examined duodenum. Recommendation: - Discharge patient to home. - Resume previous diet. - Continue present medications. - Await pathology results. -Carafate 1 g 3 times a day for 4 weeks and Protonix 40 mg twice a day for 8 weeks 02/23/2025 Left wrist swelling, redness, no pain, Uric acid normal, CRP elevated. 02/24/2025 Left wrist swelling, redness, pain. 02/24/2025 CT left upper extremity: IMPRESSION: A 3.7 AP, 6 cm longitudinal and 3.7 transverse peripherally enhancing collection which contains air at the dorsal and medial aspect of the left wrist surrounding the ulnar head and consistent with an abscess. Extensive lytic changes at the ulnar head and to a lesser degree the radial head, also the proximal scaphoid, lunate and capitate bones consistent with osteomyelitis. Discharge to [facility] ED for evaluation of left wrist abscess/osteomyelitis, while on intravenous antibiotics. Weight / BMI Weight Weight: 95.345 kg Body Mass Index (BMI) 33.0 ABG / Lab / Microbiology Data 02/23/25 12:01 02/23/25 12:01 Laboratory: Laboratory Results - last 24 hr 02/23/25 15:20: S.aureus Protein A PCR NEGATIVE, MRSA (PCR) Negative 02/23/25 16:27: POC Glucose 217 H 02/23/25 20:04: POC Glucose 210 H 02/24/25 05:57: POC Glucose 170 H 02/24/25 11:42: POC Glucose 211 H Microbiology: Microbiology 02/12/25 15:30 Stool Stool Occult Blood (ARMINDA) - Final Occult Blood Positive D/C Instructions Discharge Activity: Return to Normal Activity, May Shower and Use Walker Weight Bearing Status: Weight bearing as tolerated Call your doctor if you observe: Fever of 101 or Higher, Inability to urinate, Inability to have a bowel movement, Shortness of breath, Dizziness, Fainting spells, Swelling in the ankles, Chest pain and Uncontrolled pain DC O2, CPAP, BIPAP Needs Home O2 Discharge instructions: No Please Follow Up With: Jessica Hargrove Meaningful Use Info Meaningful Use Meaningful Use Diagnoses (Choose all that apply): None applicable Discharge Plan Admission Admit Date/Time: 02/09/25 16:54 Primary Reason for Your Visit: Debility. Attending Provider: Gaetano Menendez Chi Primary Care Provider: VIVIEN FOREMAN Consulting Providers: Nik Snyder Instructions Additional Instructions / Restrictions: Discharge to [facility] ED for evaluation of left wrist abscess/osteomyelitis, while on intravenous antibiotics. Discharge Orders/Prescriptions Prescriptions: No Action Eliquis 5 mg tablet 5 mg PO BID Rx Instructions: currently on hold until hemoglobin is stable bumetanide 1 mg tablet 0.5 mg PO QODAY escitalopram oxalate 10 mg tablet 10 mg PO QHS fluconazole 200 mg tablet 200 mg PO DAILY insulin glargine [Lantus U-100 Insulin] 100 unit/mL solution 20 unit subcut QHS lisinopril 5 mg tablet 5 mg PO DAILY metoprolol succinate 25 mg tablet extended release 24 hr 25 mg PO DAILY pantoprazole 40 mg tablet,delayed release (DR/EC) 40 mg PO BID potassium chloride 10 mEq tablet extended release 10 meq PO QODAY tamsulosin 0.4 mg capsule 0.4 mg PO .After evening meal sennosides-docusate sodium [Senna with Docusate Sodium] 8.6-50 mg tablet 1 tab-cap PO BID docusate sodium 100 mg capsule 100 mg PO BID ascorbic acid (vitamin C) 500 mg capsule 500 mg PO .every other day aspirin 81 mg tablet 81 mg PO DAILY ceftriaxone 2 gram recon soln 2 g IV DAILY acetaminophen 500 mg capsule 1,000 mg PO Q8 atorvastatin [Lipitor] 20 mg tablet 20 mg PO QHS bisacodyl 10 mg suppository 10 mg AK DAILY PRN (Reason: constipation) insulin lispro 100 unit/mL solution 7 unit subcut TID nystatin 150 million unit powder Referrals / Follow Up: VIVIEN FOREMAN MD [Primary Care Provider] - Dillan Cooper MD [Non-Staff] - 03/01/25 3:15 pm Disposition Disposition (needs filled in before D/C Order can be placed): Acute Care Hospital [facility]
== END 2025-02-24 13:50 | disposition short-term general hospital (02) | DRG 602 ==
PROVIDERS: Admitting Provider Family Medicine Geriatric Medicine; PCP Family Medicine; Visit Provider Family Medicine Geriatric Medicine
DX: L03.114 Cellulitis of left upper limb (principal); I21.A1 Myocardial infarction type 2; I50.33 Acute on chronic diastolic (congestive) heart failure; K31.811 Angiodysplasia of stomach and duodenum with bleeding; R78.81 Bacteremia; B37.81 Candidal esophagitis; M86.8X3 Other osteomyelitis, forearm; N17.9 Acute kidney failure, unspecified; L02.512 Cutaneous abscess of left hand; E11.69 Type 2 diabetes mellitus with other specified complication; I11.0 Hypertensive heart disease with heart failure; F32.9 Major depressive disorder, single episode, unspecified; K25.9 Gastric ulcer, unspecified as acute or chronic, without hemorrhage or perforation; I48.91 Unspecified atrial fibrillation; Z79.4 Long term (current) use of insulin; K21.9 Gastro-esophageal reflux disease without esophagitis; I25.10 Atherosclerotic heart disease of native coronary artery without angina pectoris; E87.6 Hypokalemia; F17.220 Nicotine dependence, chewing tobacco, uncomplicated; Z87.891 Personal history of nicotine dependence; R79.89 Other specified abnormal findings of blood chemistry; R33.8 Other retention of urine; Z79.84 Long term (current) use of oral hypoglycemic drugs; R74.01 Elevation of levels of liver transaminase levels; Z79.01 Long term (current) use of anticoagulants; B95.5 Unspecified streptococcus as the cause of diseases classified elsewhere; N40.1 Benign prostatic hyperplasia with lower urinary tract symptoms
CPT/HCPCS: 36415; 36430; 36569; 71045; 80048; 82274; 82962; 83036; 83540; 83550; 83930; 83935; 84300; 84550; 85014; 85018; 85025; 85652; 86140; 86850; 86900; 86901; 87640; 92507; 92523; 97110; 97116; 97162; 97166; 97530; 97535; 97802; P9016; A4216; J0696; J1610

== ENCOUNTER 2025-02-18 11:57 | Day surgery (SDC) | payer MEDICARE, OTHER, SELFPAY ==
[2025-02-18] VITALS (7 sets, daily range): BP systolic 89–130; BP diastolic 53–73; PULSE 67–84; RESP 16; TEMP 36.1–36.8; O2SAT 93–97; BMI 33.6
[2025-02-18] MEDS: Lactated Ringers 1,000 ML 15 ML IV (12:15)
--- NOTE | 2025-02-18 12:38 | PCM.PRE.AN2 ---
ASA Classification* ASA Classification ASA Classification: 3 Assessment & Plan Anesthesia* Anesthesia Assessment Anesthesia Assessment: Discussed sedation and/or anesthesia options, risks, benefits, and alternatives with patient/parents/legal guardian/POA. Questions invited. The patient/parents/legal guardian/POA seems to understand and agrees to proceed with anesthesia plan. Reviewed the physical assessment, medical history, allergy history and patient home medications list prior to surgery/procedure/anesthetic and documented any changes. Performed airway and anesthesia risk assessments. Anesthesia Type Anesthesia Type: MAC History Source History Obtained from:: Patient and Chart Anesthesia Focused Assessment* Temperature: 98.3 F Pulse Rate: 84 Blood Pressure: 130/73 Respiratory Rate: 16 Pulse Ox: 97 Oxygen Delivery Method: Room Air Airway Assessment Mouth opens: >3 cm Mallampati Score: IV Teeth Condition: Missing (Patient is edentulous.) Neck Range of motion (ROM): Limited ROM (Severe Restriction) Labs Anesthesia Preop lab: CBC WBC 5.4 K/mm3 (4.4-11.0) 02/15/25 05:38 02/15/25 RBC 3.09 M/mm3 (4.6-6.2) L 02/15/25 05:38 02/15/25 Hgb 8.4 g/dL (13.0-16.5) L 02/15/25 05:38 02/15/25 Hct 26.2 % (40-54) L 02/15/25 05:38 02/15/25 Plt Count 243 K/mm3 (150-450) 02/15/25 05:38 02/15/25 CHEMISTRY Potassium 4.5 mmol/L (3.3-5.1) 02/16/25 07:06 02/16/25 Sodium 132 mmol/L (133-145) L 02/16/25 07:06 02/16/25 BUN 20 mg/dL (4-19) H 02/16/25 07:06 02/16/25 Creatinine 0.99 mg/dL (0.70-1.20) 02/16/25 07:06 02/16/25 Glucose 265 mg/dL (70-99) H 02/16/25 07:06 02/16/25 POC Glucose 166 mg/dL (74-106) H 02/18/25 11:36 02/18/25 COAG Pre-Assessment Diagnosis/Proposed Procedure Planned Operative Procedure(s): Esophagogastroduodenoscopy Anesthesia History Anesthesia History - owner consulting engineer: Anesthesia History - owner consulting engineer Hx Hospitalization Any Problems With Anesthesia Cholinesterase deficiency You/Your Family Experience fever (hyperthermia) with Relationship Recent Exposure to Contagious No 02/18/25 12:18 Disease Does patient have nerve stimulator Patient instructed to have device shut off --Does patient have Pacemaker or ICD? When Was Last Pacemaker Check QUESTION #4 FULL TEXT: You/Your Family Experience fever (hyperthermia) with Anesthesia Last Oral Intake Last Oral intake: Last Oral Intake NPO since 00:00 02/18/25 12:18 Meds taken in AM with sips of water? Meds patient instructed to take am of surgery PONV PONV - owner consulting engineer: PONV - owner consulting engineer Female HX of Motion Sickness HX of N/V After Surgery Non-Smoker Duration of Surgery greater than 60 minutes Number of Risk Factors PONV Score Height & Weight Height & Weight: Anesthesia: Height & Weight Height 5 ft 7 in 02/18/25 12:18 Weight: 97.522 kg 02/18/25 12:18 Body Mass Index (BMI) 33.6 02/18/25 12:18 Respiratory Assessment Respiratory Assessment - owner consulting engineer: Respiratory Tract Infection Hx - owner consulting engineer Hx Respiratory Tract Infection Any additional information?: Yes Hx Respiratory Tract Infection: No STOP Sleep Apnea STOP Sleep Apnea - owner consulting engineer: STOP Sleep Apnea - owner consulting engineer Hx Hypertension No 02/12/25 08:40 Hx Sleep Apnea No 02/09/25 17:58 CPAP BIPAP Do you snore loudly (louder than talking or can be heard Do you often feel tired/ fatigued/ sleepy during daytime? Has anyone observed you stop breathing during sleep? STOP Results QUESTION #5 FULL TEXT : Do you snore loudly (louder than talking or can be heard through closed doors)? Tobacco Use History Tobacco Use History - owner consulting engineer: Tobacco Use History - owner consulting engineer Tobacco Use Smoking Status Former smoker 02/11/25 07:28 Hx Tobacco Use No 02/09/25 17:58 Years Smoking Packs Smoked per Day Smoking Cessation Date was within the last 15 years Hx Smoking Cessation Date Hx Smoking Cessation Counseling Hematologic Medial History Hematologic Hx - owner consulting engineer: Hematologic Medical Hx - territory outside sales manager Hx of Blood Transfusion Hx of Transfusion in last 3 Months Date of Last Transfusion (if within last 3 months) Ever experience any problems with transfusion(s)? Specify any problems Hx of Preganancy in last 3 Months Nurse Filling Out Transfusion & Questions: Date: Time: Patient unable to answer at this time (ie. confused, unrespo /Reproduction History /Reproductive History - owner consulting engineer: /Reproductive Hx- owner consulting engineer Hx Now Gestational Age (in weeks): EDC: Hx Hx Para Hx Section SAB Active Medications Active Medications: Current Medications Generic Name Dose Route Start Last Admin Trade Name Freq PRN Reason Stop Dose Admin Lactated Ringer's 1,000 mls @ 15 mls/hr 02/18/25 12:00 02/18/25 12:15 IV 15 mls/hr .Q48H TEREZA Administration PFSH Medical History History of subdural hematoma TIA (transient ischemic attack) Essential (primary) hypertension Mood disorder Type 2 diabetes mellitus with hyperglycemia Atrial fibrillation Coronary artery disease Blood in stool BPH (benign prostatic hyperplasia) Urinary retention Cellulitis of left hand Abscess of left hand Acute heart failure with preserved ejection fraction (HFpEF) Transaminitis Acute kidney injury Demand ischemia Elevated troponin Diabetic ketoacidosis Acute encephalopathy Streptococcal bacteremia Septic shock Debility Home Medications ?Medication ?Instructions ?Recorded ?Last Taken ?Type apixaban 5 mg tablet (Eliquis) 5 mg PO BID blood thinner 02/09/25 Unknown History Held on 02/18/25. Instructions: Ordered ascorbic acid (vitamin C) 500 mg 500 mg PO .every other day 02/09/25 02/17/25 History capsule supplement aspirin 81 mg tablet 81 mg PO DAILY heart 02/09/25 02/17/25 History bumetanide 1 mg tablet 0.5 mg PO QODAY diuretic 02/09/25 02/17/25 History ceftriaxone 2 gram intravenous 2 g IV DAILY infection 02/09/25 02/17/25 History solution docusate sodium 100 mg capsule 100 mg PO BID bowel 02/09/25 02/17/25 History escitalopram oxalate 10 mg tablet 10 mg PO QHS mood 02/09/25 02/17/25 History fluconazole 200 mg tablet 200 mg PO DAILY infection 02/09/25 02/17/25 History insulin glargine 100 unit/mL 20 unit subcut QHS diabetes 02/09/25 02/17/25 History subcutaneous solution (Lantus U-100 Insulin) lisinopril 5 mg tablet 5 mg PO DAILY heart health 02/09/25 02/17/25 History metoprolol succinate 25 mg 25 mg PO DAILY heart health 02/09/25 02/17/25 History tablet,extended release 24 hr pantoprazole 40 mg tablet,delayed 40 mg PO BID stomach 02/09/25 Unknown History release potassium chloride 10 mEq 10 meq PO QODAY supplement 02/09/25 Unknown History tablet,extended release Held on 02/18/25. Instructions: MD Ordered sennosides 8.6 mg-docusate sodium 1 tab-cap PO BID bowel 02/09/25 Unknown History 50 mg tablet (Senna with Docusate Sodium) tamsulosin 0.4 mg capsule 0.4 mg PO .After evening meal 02/09/25 02/17/25 History prostate acetaminophen 500 mg capsule 1,000 mg PO Q8 02/18/25 02/17/25 History atorvastatin 20 mg tablet (Lipitor) 20 mg PO QHS 02/18/25 Unknown History bisacodyl 10 mg rectal suppository 10 mg [place] DAILY PRN constipation 02/18/25 Unknown History insulin lispro 100 unit/mL 7 unit subcut TID 02/18/25 02/17/25 History subcutaneous solution nystatin 150 million unit oral unit 02/18/25 Unknown History powder Allergy/AdvReac Type Severity Reaction Status Date / Time pioglitazone (From Actos) AdvReac Other Verified 02/09/25 19:11 Family History Mother COPD (chronic obstructive pulmonary disease) Father Diabetes Grandmother CVA (cerebral vascular accident) Surgical History Status post de Quervain release surgery History of oral cancer History of cardiac cath 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
--- NOTE | 2025-02-18 12:49 | PCM.HP.STD ---
[facility] - General General Date of Admission: 02/18/25 Date of Service: 02/18/25 Chief Complaint: Anemia HPI Narrative ANDREW ARNOLD, is a 79 M who presents for the evaluation of anemia. He had a history of TIA, subdural hematoma, type 2 diabetes, atrial fibrillation and non-ST segment elevation AL on Eliquis therapy and low-dose aspirin. His hemoglobin has progressively been going down. He was Hemoccult positive. He is consented for upper endoscopy to evaluate his upper GI tract for possible upper GI bleed. [facility] Medical History History of subdural hematoma TIA (transient ischemic attack) Essential (primary) hypertension Mood disorder Type 2 diabetes mellitus with hyperglycemia Atrial fibrillation Coronary artery disease Blood in stool BPH (benign prostatic hyperplasia) Urinary retention Cellulitis of left hand Abscess of left hand Acute heart failure with preserved ejection fraction (HFpEF) Transaminitis Acute kidney injury Demand ischemia Elevated troponin Diabetic ketoacidosis Acute encephalopathy Streptococcal bacteremia Septic shock Debility Home Medications ?Medication ?Instructions ?Recorded ?Last Taken ?Type apixaban 5 mg tablet (Eliquis) 5 mg PO BID blood thinner 02/09/25 Unknown History Held on 02/18/25. Instructions: Ordered ascorbic acid (vitamin C) 500 mg 500 mg PO .every other day 02/09/25 02/17/25 History capsule supplement aspirin 81 mg tablet 81 mg PO DAILY heart 02/09/25 02/17/25 History bumetanide 1 mg tablet 0.5 mg PO QODAY diuretic 02/09/25 02/17/25 History ceftriaxone 2 gram intravenous 2 g IV DAILY infection 02/09/25 02/17/25 History solution docusate sodium 100 mg capsule 100 mg PO BID bowel 02/09/25 02/17/25 History escitalopram oxalate 10 mg tablet 10 mg PO QHS mood 02/09/25 02/17/25 History fluconazole 200 mg tablet 200 mg PO DAILY infection 02/09/25 02/17/25 History insulin glargine 100 unit/mL 20 unit subcut QHS diabetes 02/09/25 02/17/25 History subcutaneous solution (Lantus U-100 Insulin) lisinopril 5 mg tablet 5 mg PO DAILY [facility] 02/09/25 02/17/25 History metoprolol succinate 25 mg 25 mg PO DAILY [facility] 02/09/25 02/17/25 History tablet,extended release 24 hr pantoprazole 40 mg tablet,delayed 40 mg PO BID stomach 02/09/25 Unknown History release potassium chloride 10 mEq 10 meq PO QODAY supplement 02/09/25 Unknown History tablet,extended release Held on 02/18/25. Instructions: MD Ordered sennosides 8.6 mg-docusate sodium 1 tab-cap PO BID bowel 02/09/25 Unknown History 50 mg tablet (Senna with Docusate Sodium) tamsulosin 0.4 mg capsule 0.4 mg PO .After evening meal 02/09/25 02/17/25 History prostate acetaminophen 500 mg capsule 1,000 mg PO Q8 02/18/25 02/17/25 History atorvastatin 20 mg tablet (Lipitor) 20 mg PO QHS 02/18/25 Unknown History bisacodyl 10 mg rectal suppository 10 mg SC DAILY PRN constipation 02/18/25 Unknown History insulin lispro 100 unit/mL 7 unit subcut TID 02/18/25 02/17/25 History subcutaneous solution nystatin 150 million unit oral unit 02/18/25 Unknown History powder Allergy/AdvReac Type Severity Reaction Status Date / Time pioglitazone (From Actos) AdvReac Other Verified 02/09/25 19:11 Family History Mother COPD (chronic obstructive pulmonary disease) Father Diabetes Grandmother CVA (cerebral vascular accident) Surgical History Status post de Quervain release surgery History of oral cancer History of cardiac cath History 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 Social History household members: significant other and other details: Sister in law Smoking Status: Former smoker Smokeless tobacco user: chewing tobacco alcohol intake: never substance use type: does not use ROS Constitutional Constitutional: Denies fatigue, fever(s), poor appetite, weight gain or weight loss Gastrointestinal Gastrointestinal: Denies belching, bloating, change in bowel habits, change in stool character, chewing difficulty, coffee ground emesis, constipation, cramping, diarrhea, dyspepsia, dysphagia, early satiety, excessive flatus, fecal incontinence, heartburn, hematemesis, hematochezia, hemorrhoids, loose stools, melena, nausea, odynophagia, rectal bleeding, tenesmus, vomiting or weight changes Vital Signs Vital Signs Vital Signs: 02/18/25 12:18 02/18/25 12:18 02/18/25 12:48 Temperature 98.3 F 98.3 F Temperature Source Temporal Pulse Rate 84 84 Respiratory Rate 16 16 Respiratory Pattern Normal Blood Pressure 130/73 H 130/73 H Blood Pressure Mean 92 Blood Pressure Source Monitor Blood Pressure Position Semi-Fowlers Blood Pressure Location Right Arm Pulse Ox 97 97 Oxygen Delivery Method Room Air Room Air Weight Weight: 215 lb Body Mass Index (BMI) 33.6 Physical Exam Const alert, oriented x3, no apparent distress and healthy appearing General Appearance: cooperative GI normal to inspection, nondistended, normoactive bowel sounds, soft to palpation, non-tender and non-distended Percussion: normal to percussion Rectal Exam: deferred Assessment & Plan Assessment/Plan (1) Anemia: (2) Blood in stool: PLAN: He will undergo an upper endoscopy and possible colonoscopy. He was explained alternatives, risk and benefits include not withstanding bleeding, infection, sepsis, perforation, need for return to . He will have an ASA 3.
--- NOTE | 2025-02-18 13:00 | EGD_PTH ---
PATIENT: ANDREW ARNOLD LOC: EN U#:[id number] AGE/SX: 79/M ROOM: RE02/18/[address]: Dr. Kali Gar DO : 1945 BED: DIS: 02/18/2025 SPEC #: [id number] RECD: 02/18/25 14:47 STATUS: AGUSTINA REMabel #: [id number] ZAHRA: 02/18/25 13:[address]: Kali Gar DEPT: SURGICAL PATHOLOGY RECD BY: Jonathon Roper ENTERED: 02/18/25 15:40 SP TYPE: EGD BIOPSY OTHR DR: VIVIEN FOREMAN MD Tissues: A - Gastric mucous membrane Procedures: Immunohistochemical Stains Surgery Specimen Level IV HEADER OPERATION: EGD with biopsy and electrohemostasis PRE-OP DIAGNOSIS: Anemia, blood in stool TISSUE SUBMITTED: A- Gastric body biopsy MICROSCOPIC DIAGNOSIS A. Gastric body, biopsy: - Oxyntic mucosa with chronic inflammation. - IHC negative for H. pylori organisms. MICROSCOPIC DESCRIPTION Slides are reviewed. All matched controls reacted appropriately. These tests were developed and their performance characteristics determined by [facility]. They may not have been cleared or approved by the U.S. Food and Drug Administration. The FDA has determined that such clearance or approval is not necessary. The above immunohistochemical markers are reviewed by the Pathologist. GROSS DESCRIPTION A. Received in fixative is one container labeled with the patient's name and designated Gastric body biopsy. The specimen consists of two irregular fragments of light loza soft tissue that measure 0.3 and 0.5 cm. The specimen is totally submitted in one cassette. PR 02/18/2025 CPT:53968 ,80271
--- NOTE | 2025-02-18 13:19 | OP.PROVAT_ITS ---
02/18/2025 Mara Arriaga Md Re : Upper GI endoscopy procedure for Jona Zambrano Dear Corina This procedure was performed on Tuesday, February 18, 2025. My impressions and recommendations are as follows: Impressions : - Normal esophagus. 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 Treated with a heater probe. - Non-bleeding gastric ulcers with no stigmata of bleeding. Biopsied. - No gross lesions in the entire examined duodenum. Recommendations : - Discharge patient to home. - Resume previous diet. - Continue present medications. - Await pathology results. -Carafate 1 g 3 times a day for 4 weeks and Protonix 40 mg twice a day for 8 weeks My findings are described in the full procedure note, which is enclosed. If I can be of further assistance, please feel free to contact me at . Sincerely, Kali Gar, 02/18/2025 1:18:51 PM This report has been signed electronically.
--- NOTE | 2025-02-18 13:19 | OP.EGD_ITS ---
Patient Name: Jona Zambrano Procedure Date: 02/18/2025 1:00 PM Date of : 1945 Age: 79 Procedure: Upper GI endoscopy Indications: Iron deficiency anemia, Heme positive stool, Suspected upper gastrointestinal bleeding Providers: Kali Gar DO Medicines: Monitored Anesthesia Care Patient Profile: This is an 79 year old male. Refer to note in patient chart for documentation of history and physical. Patient has symptoms. Complications: No immediate complications. Procedure: Pre-Anesthesia Assessment: - Prior to the procedure, a History and Physical was performed, and patient medications and allergies were reviewed. The patient is competent. The risks and benefits of the procedure and the sedation options and risks were discussed with the patient. All questions were answered and informed consent was obtained. Patient identification and proposed procedure were verified by the physician in the pre-procedure area. Mental Status Examination: alert and oriented. Airway Examination: normal oropharyngeal airway and neck mobility. Respiratory Examination: clear to auscultation. CV Examination: normal. Prophylactic Antibiotics: The patient does not require prophylactic antibiotics. Prior Anticoagulants: The patient has taken no anticoagulant or antiplatelet agents except for NSAID medication. ASA Grade Assessment: II - A patient with mild systemic disease. After reviewing the risks and benefits, the patient was deemed in satisfactory condition to undergo the procedure. The anesthesia plan was to use monitored anesthesia care (MAC). Immediately prior to administration of medications, the patient was re-assessed for adequacy to receive sedatives. The heart rate, respiratory rate, oxygen saturations, blood pressure, adequacy of pulmonary ventilation, and response to care were monitored throughout the procedure. The physical status of the patient was re-assessed after the procedure. After obtaining informed consent, the endoscope was passed under direct vision. Throughout the procedure, the patient's blood pressure, pulse, and oxygen saturations were monitored continuously. The Colonoscope was introduced through the mouth, and advanced to the jejunum. Small bowel enteroscopy was deemed necessary. The upper GI endoscopy was accomplished without difficulty. The patient tolerated the procedure well. Scope In: 1:05:17 PM Scope Out: 1:10:14 PM Total Procedure Duration Time 0 hours 4 minutes 57 seconds Findings: The examined esophagus was normal. One 8 mm angiodysplastic lesion with bleeding was found on the greater curvature of the stomach. Coagulation for bleeding prevention using heater probe was successful. Estimated blood loss was minimal. Many non-bleeding linear gastric ulcers with no stigmata of bleeding were found in the gastric body. The largest lesion was 6 mm in largest dimension. Biopsies were taken with a cold forceps for histology. Verification of patient identification for the specimen was done. Biopsies were taken with a cold forceps for Helicobacter pylori testing. Verification of patient identification for the specimen was done. Estimated blood loss was minimal. No gross lesions were noted in the entire examined duodenum. Impression: - Normal esophagus. 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 Treated with a heater probe. - Non-bleeding gastric ulcers with no stigmata of bleeding. Biopsied. - No gross lesions in the entire examined duodenum. Recommendation: - Discharge patient to home. - Resume previous diet. - Continue present medications. - Await pathology results. -Carafate 1 g 3 times a day for 4 weeks and Protonix 40 mg twice a day for 8 weeks Procedure Code(s): --- Professional --- 12865, 59, Small intestinal endoscopy, enteroscopy beyond second portion of duodenum, not including ileum; with control of bleeding (eg, injection, bipolar cautery, unipolar cautery, laser, heater probe, stapler, plasma welt sole layer) 66537, 51, Small intestinal endoscopy, enteroscopy beyond second portion of duodenum, not including ileum; with biopsy, single or multiple CPT copyright 2021 [employer]. All rights reserved. The codes documented in this report are preliminary and upon typewriter ribbon winder review may be revised to meet current compliance requirements. Kali Gar DO 02/18/2025 1:18:51 PM This report has been signed electronically. Number of Addenda: 0 Note Initiated On: 02/18/2025 1:00 PM
--- NOTE | 2025-02-18 13:20 | PCM.POST.ANE ---
Anesthesia: Postop Eval I Current Vital Signs Temperature: 97 F Pulse Rate: 67 Blood Pressure: 99/53 Respiratory Rate: 16 Pulse Ox: 95 Oxygen Delivery Method: Room Air Assessment Airway patent: Yes Spontaneous unlabored respirations: Yes Mental status: Asleep nausea: No Vomiting: No Anesthesia Complication: No Fluid Hydration Crystalloid volume administer (ml): 300 Total IV fluid infused: 300 Progress Note Anesthesia document: Postop Eval 1 completed: Yes
--- NOTE | 2025-02-18 14:17 | PCM.POSTANE2 ---
Anesthesia Postop Eval I Sum Postop Eval Completion status Anesthesia document: Postop Eval 1 completed: Yes Anesthesia Postop Eval I Summary Anesthesia Postop Eval I Summary: Anesthesia Postop Eval I: Assessment Summary Airway patent Yes 02/18/25 13:20 [email or web address] Spontaneous unlabored Yes 02/18/25 13:20 [email or web address] respirations Mental status Asleep 02/18/25 13:20 [email or web address] nausea No 02/18/25 13:20 [email or web address] Vomiting No 02/18/25 13:20 [email or web address] Anesthesia Postop Eval I: Fluid Summary Crystalloid volume administer 300 02/18/25 13:20 [email or web address] (ml) Colloids volume administered ( ml) Blood Product volume administered (ml) Total IV fluid infused 300 02/18/25 13:20 [email or web address] Anesthesia Postop Eval I: Summary Notes Anesthesia Complication No 02/18/25 13:20 [email or web address] Anesthesia Complication Comment: Post-operative progress note Anesthesia: Postop Eval II Evaluation Mental status: Awake and Calm Pain Level: 0 nausea: No Vomiting: No Complications Anesthesia Complication: No
== END 2025-02-18 13:45 | disposition home or self-care (01) ==
LOC: EN 12:01 → AC 12:01
PROVIDERS: PCP Family Medicine; Referring Provider Family Medicine; Visit Provider Internal Medicine Gastroenterology
PROC: 0DJ08ZZ Inspection of Upper Intestinal Tract, Via Natural or Artificial Opening Endoscopic (ICD-10-PCS; CPT 43235; principal; 2025-02-18 12:55)
DX: K25.9 Gastric ulcer, unspecified as acute or chronic, without hemorrhage or perforation (principal); E11.9 Type 2 diabetes mellitus without complications; K92.1 Melena; Z83.3 Family history of diabetes mellitus; D64.9 Anemia, unspecified; Z87.891 Personal history of nicotine dependence; I25.10 Atherosclerotic heart disease of native coronary artery without angina pectoris; I25.2 Old myocardial infarction; I10 Essential (primary) hypertension; K31.811 Angiodysplasia of stomach and duodenum with bleeding
CPT/HCPCS: 44366; 44361; 82962; 88305; 88342; C1889; A4216; J2405

== ENCOUNTER 2025-02-24 13:58 | Emergency (ER) | payer MEDICARE, OTHER, SELFPAY ==
[2025-02-24] VITALS (8 sets, daily range): BP systolic 112–136; BP diastolic 51–75; PULSE 72–98; RESP 16–18; TEMP 36.9; O2SAT 92–98; BMI 33.7
--- NOTE | 2025-02-24 14:21 | EX.ED.DYSGE1 ---
HPI History of Present Illness Chief Complaint: Abscess Narrative Narrative: Patient is an 79-year-old male presenting to the emergency department for osteomyelitis found on an outpatient CT. Patient was recently hospitalized on 01/28 for septic shock secondary to a left hand abscess and cellulitis with complications of encephalopathy, DKA, DOMENICO, transaminitis and elevated troponin at [facility]. He was discharged on 02/09 to TCU at [facility] for rehab with a right upper extremity PICC line in place for abx. Patient has been receiving Rocephin 2 g daily through 03/02. Had a CT done today that showed osteomyelitis and was sent here for evaluation. Patient denies any fever or chills. Feels well otherwise. Denies any nausea or vomiting. [facility] Medical History History of subdural hematoma TIA (transient ischemic attack) Essential (primary) hypertension Mood disorder Type 2 diabetes mellitus with hyperglycemia Atrial fibrillation Coronary artery disease Blood in stool BPH (benign prostatic hyperplasia) Urinary retention Cellulitis of left hand Abscess of left hand Acute heart failure with preserved ejection fraction (HFpEF) Transaminitis Acute kidney injury Demand ischemia Elevated troponin Diabetic ketoacidosis Acute encephalopathy Streptococcal bacteremia Septic shock Debility Home Medications ?Medication ?Instructions ?Recorded ?Last Taken ?Type apixaban 5 mg tablet (Eliquis) 5 mg PO BID blood thinner 02/09/25 Unknown History Held on 02/18/25. Instructions: Ordered ascorbic acid (vitamin C) 500 mg 500 mg PO .every other day 02/09/25 02/17/25 History capsule supplement aspirin 81 mg tablet 81 mg PO DAILY heart 02/09/25 02/17/25 History bumetanide 1 mg tablet 0.5 mg PO QODAY diuretic 02/09/25 02/17/25 History ceftriaxone 2 gram intravenous 2 g IV DAILY infection 02/09/25 02/17/25 History solution docusate sodium 100 mg capsule 100 mg PO BID bowel 02/09/25 02/17/25 History escitalopram oxalate 10 mg tablet 10 mg PO QHS mood 02/09/25 02/17/25 History fluconazole 200 mg tablet 200 mg PO DAILY infection 02/09/25 02/17/25 History insulin glargine 100 unit/mL 20 unit subcut QHS diabetes 02/09/25 02/17/25 History subcutaneous solution (Lantus U-100 Insulin) lisinopril 5 mg tablet 5 mg PO DAILY heart health 02/09/25 02/17/25 History metoprolol succinate 25 mg 25 mg PO DAILY [facility] health 02/09/25 02/17/25 History tablet,extended release 24 hr pantoprazole 40 mg tablet,delayed 40 mg PO BID stomach 02/09/25 Unknown History release potassium chloride 10 mEq 10 meq PO QODAY supplement 02/09/25 Unknown History tablet,extended release Held on 02/18/25. Instructions: MD Ordered sennosides 8.6 mg-docusate sodium 1 tab-cap PO BID bowel 02/09/25 Unknown History 50 mg tablet (Senna with Docusate Sodium) tamsulosin 0.4 mg capsule 0.4 mg PO .After evening meal 02/09/25 02/17/25 History prostate acetaminophen 500 mg capsule 1,000 mg PO Q8 02/18/25 02/17/25 History atorvastatin 20 mg tablet (Lipitor) 20 mg PO QHS 02/18/25 Unknown History bisacodyl 10 mg rectal suppository 10 mg MI DAILY PRN constipation 02/18/25 Unknown History insulin lispro 100 unit/mL 7 unit subcut TID 02/18/25 02/17/25 History subcutaneous solution nystatin 150 million unit oral unit 02/18/25 Unknown History powder Allergy/AdvReac Type Severity Reaction Status Date / Time pioglitazone (From Actos) AdvReac Other Verified 02/24/25 14:03 Family History Mother COPD (chronic obstructive pulmonary disease) Father Diabetes Grandmother CVA (cerebral vascular accident) Surgical History Status post de Quervain release surgery History of oral cancer History of cardiac cath History 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 Social History household members: significant other and other details: Sister in law Smoking Status: Former smoker Smokeless tobacco user: chewing tobacco alcohol intake: never substance use type: does not use ROS ROS ED ROS Narrative see HPI EXAM Physical Exam Narrative Exam Narrative: Vital signs: Reviewed General: Alert and orientedx3. No acute distress HEENT: Head is normocephalic and atraumatic, sinuses nontender, pupils equal round and reactive. Nares are patent. Oropharynx and throat exams normal. Neck: Supple without lymphadenopathy nontender Cardiovascular: Regular rate and rhythm, no murmurs. No rubs or gallops. Normal S1 and S2 Respiratory: Clear to auscultation bilaterally. No wheezes, rales, rhonchi Abdominal: Soft and nontender. Normal bowel sounds. No guarding or rebound. Nonsurgical abdomen Extremities: Left dorsal wrist with an open wound about 1.5 cm with some surrounding erythema and scant purulent discharge. Slightly proximal to this wound is an area of swelling, fluctuance and warmth that is about 4 cm in diameter. Radial pulse intact. Sensation and motor intact in radial, median and ulnar distributions. Neurological: Cranial nerves II through XII are grossly intact. Normal strength and sensation. Normal cerebellar function The rest of the physical exam is unremarkable Const Vital Signs: 02/24/25 14:03 02/24/25 14:08 02/24/25 15:08 Temperature 98.5 F 98.4 F 98.4 F Temperature Source Oral Oral Oral Pulse Rate 98 91 84 Respiratory Rate 18 18 18 Blood Pressure 132/65 H 132/65 H 136/74 H Blood Pressure Mean 87 87 94 Pulse Ox 95 97 96 Oxygen Delivery Method Room Air Room Air Room Air 02/24/25 15:59 Temperature 98.4 F Temperature Source Oral Pulse Rate 76 Respiratory Rate 16 Blood Pressure 121/75 H Blood Pressure Mean 90 Pulse Ox 96 Oxygen Delivery Method Room Air MDM MDM MDM Narrative Medical decision making narrative: Patient is a 79-year-old male presenting to the emergency department for osteomyelitis seen on CT done outpatient today. Patient was seen and examined. Vitals are stable. Patient resting bed comfortably no acute distress. Patient's vitals are all stable, no signs of systemic infection. I did speak to Dr. Menendez, from TCU who was caring for the patient prior and he recommended admission given the findings. I offered the patient transfer to [facility] in [place] where he had the debridement performed versus attempting to stay here if our orthopedics would accept. He asked to stay here. I did speak to on-call orthopedics, Dr. Mckeon, who recommended a hand surgeon specifically for debridement. He recommended that I speak to Dr. Renee. He was not food preparation supervisor, but was able to take my call. He recommended transfer to a tertiary care center such as [facility], [facility] or [facility]. I attempted to transfer to [facility] but was told they would not have a bed for a week. [facility] and [facility] were both then contacted. [facility] accepted the patient for transfer under Dr. Auguste. Patient and family updated on the plan and are agreeable. History & Record Review Discussion w/independent historian: Patient and Family Discharge Plan Triage Chief Complaint: Abscess ED Provider: Nikki Watson Dx/Rx/DC Orders Prescriptions: No Action Eliquis 5 mg tablet 5 mg PO BID Rx Instructions: currently on hold until hemoglobin is stable bumetanide 1 mg tablet 0.5 mg PO QODAY escitalopram oxalate 10 mg tablet 10 mg PO QHS fluconazole 200 mg tablet 200 mg PO DAILY insulin glargine [Lantus U-100 Insulin] 100 unit/mL solution 20 unit subcut QHS lisinopril 5 mg tablet 5 mg PO DAILY metoprolol succinate 25 mg tablet extended release 24 hr 25 mg PO DAILY pantoprazole 40 mg tablet,delayed release (DR/EC) 40 mg PO BID potassium chloride 10 mEq tablet extended release 10 meq PO QODAY tamsulosin 0.4 mg capsule 0.4 mg PO .After evening meal sennosides-docusate sodium [Senna with Docusate Sodium] 8.6-50 mg tablet 1 tab-cap PO BID docusate sodium 100 mg capsule 100 mg PO BID ascorbic acid (vitamin C) 500 mg capsule 500 mg PO .every other day aspirin 81 mg tablet 81 mg PO DAILY ceftriaxone 2 gram recon soln 2 g IV DAILY acetaminophen 500 mg capsule 1,000 mg PO Q8 atorvastatin [Lipitor] 20 mg tablet 20 mg PO QHS bisacodyl 10 mg suppository 10 mg MI DAILY PRN (Reason: constipation) insulin lispro 100 unit/mL solution 7 unit subcut TID nystatin 150 million unit powder Primary Care Provider: VIVIEN FOREMAN Referrals: VIVIEN FOREMAN MD [Primary Care Provider] - Print Language: Cymro
--- OUTSIDE RECORDS SUMMARY | 2025-02-24 14:36 | XMS RPT_ITS | CCD ---
Author Organization [facility] Care Team Providers Care Water/Wastewater Project Engineer Name Role Phone Dieter Bernal Unavailable Unavailable Unavailable Unavailable Preston Healy Unavailable Unavailable [...] Vivien Ybarra Primary Care Pro vider Hughes JHON, Radha Edward Unavailable [phone] Preston Healy MD Unavailable Adilson Stone MD Unavailable [phone] Cruz Montana DPM, Hola Unavailable Fly COELHO DO, W. Don Unavailable [phone] Vivien Foreman MD Unavailable Vivien Foreman MD Unavailable Pernell RN, Hayley R Unavailable Unav ailable Saul LOPEZ, Radha Castellanosward Unavailable Sung OWEN, Dieter Rosa Primary Care Provider Saul LOPEZ, Radha Edward Unavailable [phone] Rich KEATING, [facility] Unavailable Unavailable Cruz Montana DPM, [...] PRESTON HEALY Attending Unavailabl e CORINA, VIVIEN AKRTIK MOUNIR Attending Rylee vailable CORINA, VIVIEN KARTIK [...] Care Pro vider Radha Hughes CNP Unavailable Preston Healy MD Unavailable Adilson Stone MD Unavailable Cruz Montana, DPM, Hola Unavailable Fly COELHO DO WLaquita Don Unavailable Shon OWEN, Dr. Gaetano Farias Admit Provider Shon OWEN, Dr. Gaetano Farias Attending Provider Claudio OWEN, Dr. Zaragoza Other Provider [phone] CORINA OWEN, VIVIEN Primary Care Provider VIVIEN FOREMAN MD Referring Provider Friend Dr. Kali TAYLOR Attending Provider Friend Dr. Kali TAYLOR Other Provider [phone] CORINA, VIVIEN KARTIK MOUNIR Primary Care Rylee [...] (9 sources) pioglitazone Drug Allergy GI Intolerance [facility] (20 sources) pioglitazone; 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: [Unknown] Propensity to adverse reactions to drug 02-10-20 GI Intolerance [facility] Comment on above: GI irritation (1 source) pioglitazone Drug Allergy 02-10-20 [facility] Repository Medications Current Medications Medication Drug Class(es) [...] EC tablet Indications: Coronary 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 without angina pectoris Take 1 tablet [...] Active docusate sodium 50 mg / sennosides, [facility] 8.6 mg oral tablet (6 sources) Start: [...] 01/26/2025 01/31/2025 Suspended 20 ml albumin human, [facility] 250 mg/ml injection (1 source) Human Serum [...] for 3 wks. Follow up with the [facility] weekly and clinic at [facility]. End: 02/27/25 42 each 02/06/2025 02/27/2025 Active cilostazol 100 mg oral tablet (20 sources) Phosphodiesterase 3 Inhibitor Start: 02-02-2023 End: 02-09-2025 take 1 tablet by mouth twice daily cilostazoL (PLETAL) 100 MG tablet Indications: PAD (peripheral artery disease) (HCC) , Atherosclerosis of [place] arteries of extremities with intermittent claudication, bilateral legs (HCC) TAKE 1 TABLET BY MOUTH TWICE DAILY ON AN EMPTY STOMACH 180 tablet 06/26/2024 Suspended Start: 03-17-2022 End: 10-28-2022 take 1 tablet by mouth twice daily cilostazoL (PLETAL) 100 MG tablet Indications: PAD (peripheral artery disease) (HCC) , Atherosclerosis of [place] arteries of extremities with intermittent claudication, bilateral [...] 12-26-2018 naloxone (NARCAN) injection 0.1 mg nystatin 501701 unt/ml oral suspension (14 sources) Polyene Antifungal [...] as needed 50 ml penicillin g potassium 81434 unt/ml injection (1 source) Penicillin-class Antibacterial Start: [...] Start: 01-28-2025 End: 01-28-2025 polyethylene glycol 3350 81658 mg powder for oral solution (1 source) [...] Coronary arteriosclerosis; 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: [Atherosclerotic heart disease of [place] coronary artery without angina pectoris] Onset: 02-20-2025 [...] Unclassified (20 sources) HEALTHY DIET INFORMATION NEEDED ([id number]) Onset: 08-08-2023 08-08-2023 Unclassified (2 sources) Nail [...] sources) Long-term current use of anticoagulant; 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: [terminal clerk (current) use of anticoagulants] Onset: 12-09-2022 12-09-2022 Episodic Other aftercare (2 sources) FPC (current) use of insulin; 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: [terminal clerk (current) use of insulin] Onset: 07-28-2023 Episodic Other aftercare (2 sources) terminal clerk (current) use of anticoagulants; 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: [terminal clerk (current) use of anticoagulants] Onset: 12-09-2022 Episodic [...] BUN/CRE 21.3 RATIO High 10-20 [facility] Comment on above: Performed By: #### L 101.9900, L500.2500, L100.0100, L501.6710, L501.1400 #### [facility] [address] [place], [address] Calcium [Mass/Vol] 8.6 mg/dL Normal 7.6-11.0 [facility] Comment on above: Performed By: #### L 101.9900, L500.2500, L100.0100, L501.6710, L501.1400 #### [facility] [address] [place], [address] Chloride [Moles/Vol] 100 mmol/L Normal 98-108 [facility] Comment on above: Performed By: #### L 101.9900, L500.2500, L100.0100, L501.6710, L501.1400 #### [facility] [address] [place], [address] CO2 [Moles/Vol] 25.3 mmol/L Normal 21.0-32.0 [facility] Comment on above: Performed By: #### L 101.9900, L500.2500, L100.0100, L501.6710, L501.1400 #### [facility] [address] [place], [address] Creatinine [Mass/Vol] 0.98 mg/dL Normal 0.70-1.20 [facility] Comment on above: Performed By: #### L 101.9900, L500.2500, L100.0100, L501.6710, L501.1400 #### [facility] [address] [place], [address] ECRCL 66.15 ml/min Normal 50-250 [facility] Comment on above: Performed By: #### L 101.9900, L500.2500, L100.0100, L501.6710, L501.1400 #### [facility] [address] [place], [address] GAP 11 Normal 5-15 [facility] Comment on above: Performed By: #### L 101.9900, L500.2500, L100.0100, L501.6710, L501.1400 #### [facility] [address] [place], [address] GFR/1.73 sq M.predicted among non-blacks MDRD (S/P/Bld) [Vol rate/Area] 78 mL/min/{1.73_m2} Normal >60 [facility] Comment on above: Result Comment: mL/m in/1.73m2 CKD-EPI Creatinine Equation (2020) Performed By: #### L 101.9900, L500.2500, L100.0100, L501.6710, L501.1400 #### [facility] [address] [place], [address] Glucose [Mass/Vol] 190 mg/dL High 70-99 [facility] Comment on above: Performed By: #### L 101.9900, L500.2500, L100.0100, L501.6710, L501.1400 #### [facility] [address] [place], [address] Potassium [Moles/Vol] 4.2 mmol/L Normal 3.3-5.1 [facility] Comment on above: Performed By: #### L 101.9900, L500.2500, L100.0100, L501.6710, L501.1400 #### [facility] [address] [place], [address] Sodium [Moles/Vol] 136 mmol/L Normal 133-145 [facility] Comment on above: Performed By: #### L 101.9900, L500.2500, L100.0100, L501.6710, L501.1400 #### [facility] [address] [place], [address] Urea nitrogen [Mass/Vol] 21 mg/dL High 4-19 [facility] Comment on above: Performed By: #### L 101.9900, L500.2500, L100.0100, L501.6710, L501.1400 #### [facility] [address] [place], [address] Bedside Glucoseon 02-23-2025 FINGERSTICK GLU 217 mg/dL High 74-106 [facility] Comment on above: Result Comment: ARACELI FISH OF PATIENT CARE PER NURSING PROTOCOL Performed By: #### L 501.080 #### [facility] [address] [place], [address] FINGERSTICK GLU 190 mg/dL High 74-106 [facility] Comment on above: Result Comment: ARACELI GEMENT OF PATIENT CARE PER NURSING PROTOCOL Performed By: #### L 501.080 #### [facility] [address] [place], [address] FINGERSTICK GLU 185 mg/dL High 74-106 [facility] Comment on above: Result Comment: ARACELI GEMENT OF PATIENT CARE PER NURSING PROTOCOL Performed By: #### L 501.080 #### [facility] [address] [place], [address] CBC W/Diff, Automatedon 02-08 ATYPICAL LYMPH 2+ Normal [facility] Comment on above: Performed By: #### L 101.9900, L500.2500, L100.0100, L501.6710, L501.1400 #### [facility] [address] [place], [address] SMEAR COMMENT SCANNED Normal [facility] Comment on above: Performed By: #### L 101.9900, L500.2500, L100.0100, L501.6710, L501.1400 #### [facility] [address] [place], [address] CRPon 02-23-2025 C-REACTIVE PROT 39.10 mg/L High 0.0-3.0 [facility] Comment on above: Performed By: #### L 101.9900, L500.2500, L100.0100, L501.6710, L501.1400 #### [facility] [address] [place], [address] Erythrocyte Sed Rateon 02-23 SED RATE 50 mm/hr High 0-20 [facility] Comment on above: Performed By: #### L 101.9900, L500.2500, L100.0100, L501.6710, L501.1400 #### [facility] [address] [place], [address] MRSA Wound DNA by PCRon 02-08 MRSA DNA ASSAY Negative Normal Negative [facility] Comment on above: Order Comment: Left Hand wound Performed By: #### L 501.080 #### [facility] [address] [place], [address] SA DNA ASSAY Negative Normal Negative [facility] Comment on above: Order Comment: Left Hand wound Performed By: #### L 501.080 #### [facility] [address] [place], [address] Uric Acidon 02-23-2025 URIC 5.5 mg/dL Normal 3.5-7.2 [facility] Comment on above: Result Comment: The drugs N-Acetylcysteine and Metamizole may falsely depress this assay. Performed By: #### L 101.9900, L500.2500, L100.0100, L501.6710, L501.1400 #### [facility] [address] [place], [address] Basic Metabolic Profile (BMP )on 02-22-2025 BUN/CRE 25.3 RATIO High 10-20 [facility] Comment on above: Performed By: #### L 500.2500, L100.0100 #### [facility] [address] [place], [address] Calcium [Mass/Vol] 8.6 mg/dL Normal 7.6-11.0 [facility] Comment on above: Performed By: #### L 500.2500, L100.0100 #### [facility] [address] [place], [address] Chloride [Moles/Vol] 100 mmol/L Normal 98-108 [facility] Comment on above: Performed By: #### L 500.2500, L100.0100 #### [facility] [address] [place], [address] CO2 [Moles/Vol] 24.0 mmol/L Normal 21.0-32.0 [facility] Comment on above: Performed By: #### L 500.2500, L100.0100 #### [facility] [address] [place], [address] Creatinine [Mass/Vol] 0.90 mg/dL Normal 0.70-1.20 [facility] Comment on above: Performed By: #### L 500.2500, L100.0100 #### [facility] [address] [place], [address] ECRCL 72.04 ml/min Normal 50-250 [facility] Comment on above: Performed By: #### L 500.2500, L100.0100 #### [facility] [address] [place], [address] GAP 10 Normal 5-15 [facility] Comment on above: Performed By: #### L 500.2500, L100.0100 #### [facility] [address] [place], [address] GFR/1.73 sq M.predicted among non-blacks MDRD (S/P/Bld) [Vol rate/Area] 86 mL/min/{1.73_m2} Normal >60 [facility] Comment on above: Result Comment: mL/m in/1.73m2 CKD-EPI Creatinine Equation (2020) Performed By: #### L 500.2500, L100.0100 #### [facility] [address] [place], [address] Glucose [Mass/Vol] 209 mg/dL High 70-99 [facility] Comment on above: Performed By: #### L 500.2500, L100.0100 #### [facility] [address] [place], [address] Potassium [Moles/Vol] 4.2 mmol/L Normal 3.3-5.1 [facility] Comment on above: Performed By: #### L 500.2500, L100.0100 #### [facility] [address] [place], [address] Sodium [Moles/Vol] 134 mmol/L Normal 133-145 [facility] Comment on above: Performed By: #### L 500.2500, L100.0100 #### [facility] [address] [place], [address] Urea nitrogen [Mass/Vol] 23 mg/dL High 4-19 [facility] Comment on above: Performed By: #### L 500.2500, L100.0100 #### [facility] [address] [place], [address] Bedside Glucoseon 02-22-2025 FINGERSTICK GLU 169 mg/dL High 74-106 [facility] Comment on above: Result Comment: ARACELI GEMENT OF PATIENT CARE PER NURSING PROTOCOL Performed By: #### L 501.080 #### [facility] [address] [place], [address] FINGERSTICK GLU 218 mg/dL High 74-106 [facility] Comment on above: Result Comment: ARACELI GEMENT OF PATIENT CARE PER NURSING PROTOCOL Performed By: #### L 501.080 #### [facility] [address] [place], [address] FINGERSTICK GLU 178 mg/dL High 74-106 [facility] Comment on above: Result Comment: ARACELI GEMENT OF PATIENT CARE PER NURSING PROTOCOL Performed By: #### L 101.9900, L500.2500, L100.0100, L501.6710, L501.1400 #### [facility] [address] [place], [address] FINGERSTICK GLU 192 mg/dL High 74-106 [facility] Comment on above: Result Comment: ARACELI GEMENT OF PATIENT CARE PER NURSING PROTOCOL Performed By: #### L 500.2500, L100.0100 #### [facility] [address] [place], [address] CBC W/Diff, Automatedon 08 SMEAR COMMENT SCANNED Normal [facility] Comment on above: Performed By: #### L 500.2500, L100.0100 #### [facility] [address] [place], [address] CRPon 02-22-2025 C-REACTIVE PROT 30.80 mg/L High 0.0-3.0 [facility] Comment on above: Performed By: #### L 500.2500, L100.0100 #### [facility] [address] [place], [address] Erythrocyte Sed Rateon 02-22 SED RATE 52 mm/hr High 0-20 [facility] Comment on above: Performed By: #### L 500.2500, L100.0100 #### [facility] [address] [place], [address] Bedside Glucoseon 02-21-2025 FINGERSTICK GLU 188 mg/dL High 74-106 [facility] Comment on above: Result Comment: ARACELI GEMENT OF PATIENT CARE PER NURSING PROTOCOL Performed By: #### L 500.2500, L100.0100 #### [facility] [address] [place], [address] FINGERSTICK GLU 211 mg/dL High 74-106 [facility] Comment on above: Result Comment: ARACELI GEMENT OF PATIENT CARE PER NURSING PROTOCOL Performed By: #### L 101.9900, L500.2500, L100.0100, L501.6710, L501.1400 #### [facility] [address] [place], [address] FINGERSTICK GLU 110 mg/dL High 74-106 [facility] Comment on above: Result Comment: ARACELI GEMENT OF PATIENT CARE PER NURSING PROTOCOL Performed By: #### L 101.9900, L500.2500, L100.0100, L501.6710, L501.1400 #### [facility] [address] [place], [address] FINGERSTICK GLU 159 mg/dL High 74-106 [facility] Comment on above: Result Comment: ARACELI GEMENT OF PATIENT CARE PER NURSING PROTOCOL Performed By: #### L 101.9900, L500.2500, L100.0100, L501.6710, L501.1400 #### [facility] [address] [place], [address] Bedside Glucoseon 02-20-2025 FINGERSTICK GLU 102 mg/dL Normal 74-106 [facility] Comment on above: Result Comment: ARACELI GEMENT OF PATIENT CARE PER NURSING PROTOCOL Performed By: #### L 101.9900, L500.2500, L100.0100, L501.6710, L501.1400 #### [facility] [address] [place], [address] FINGERSTICK GLU 155 mg/dL High 74-106 [facility] Comment on above: Result Comment: AARCELI GEMENT OF PATIENT CARE PER NURSING PROTOCOL Performed By: #### L 500.2500, L100.0100 #### [facility] [address] [place], [address] FINGERSTICK GLU 220 mg/dL High 74-106 [facility] Comment on above: Result Comment: ARACELI GEMENT OF PATIENT CARE PER NURSING PROTOCOL Performed By: #### L 500.2500, L100.0100 #### [facility] [address] [place], [address] FINGERSTICK GLU 162 mg/dL High [facility]106 [facility] Comment on above: Result Comment: ARACELI GEMENT OF PATIENT CARE PER NURSING PROTOCOL Performed By: #### L 500.2500, L100.0100 #### [facility] [address] [place], [address] Bedside Glucoseon 02-19-2025 FINGERSTICK GLU 191 mg/dL High 74-106 [facility] Comment on above: Result Comment: ARACELI GEMENT OF PATIENT CARE PER NURSING PROTOCOL Performed By: #### L 101.9900, L500.2500, L100.0100, L501.6710, L501.1400 #### [facility] [address] [place], [address] FINGERSTICK GLU 82 mg/dL Normal 74-106 [facility] Comment on above: Result Comment: ARACELI GEMENT OF PATIENT CARE PER NURSING PROTOCOL Performed By: #### L 500.2500, L100.0100 #### [facility] [address] [place], [address] FINGERSTICK GLU 71 mg/dL Low 74-106 [facility] Comment on above: Result Comment: ARACELI GEMENT OF PATIENT CARE PER NURSING PROTOCOL Performed By: #### L 101.9900, L500.2500, L100.0100, L501.6710, L501.1400 #### [facility] [address] [place], [address] FINGERSTICK GLU 66 mg/dL Low 74-106 [facility] Comment on above: Result Comment: ARACELI GEMENT OF PATIENT CARE PER NURSING PROTOCOL Performed By: #### L 500.2500, L100.0100 #### [facility] [address] [place], [address] FINGERSTICK GLU 102 mg/dL Normal 74-106 [facility] Comment on above: Result Comment: ARACELI GEMENT OF PATIENT CARE PER NURSING PROTOCOL Performed By: #### L 500.2500, L100.0100 #### [facility] [address] [place], [address] FINGERSTICK GLU 137 mg/dL High 74-106 [facility] Comment on above: Result Comment: ARACELI GEMENT OF PATIENT CARE PER NURSING PROTOCOL Performed By: #### L 101.9900, L500.2500, L100.0100, L501.6710, L501.1400 #### [facility] [address] [place], [address] Gl[facility] measurement at [facility] deOrdered By: Gaetano Menendez on 02-19-2025 Glucose [Mass/Vol] 137 mg/dL High 74-106 [facility] Comment on above: MANAGEMENT OF PATIEN T CARE PER NURSING PROTOCOL Bedside Glucoseon 02-18-2025 FINGERSTICK GLU 159 mg/dL High 74-106 [facility] Comment on above: Result Comment: ARACELI GEMENT OF PATIENT CARE PER NURSING PROTOCOL Performed By: #### L 500.2500, L100.0100 #### [facility] [address] [place], [address] FINGERSTICK GLU 292 mg/dL High -106 [facility] Comment on above: Result Comment: ARACELI GEMENT OF PATIENT CARE PER NURSING PROTOCOL Performed By: #### L 101.9900, L500.2500, L100.0100, L501.6710, L501.1400 #### [facility] [address] [place], [address] FINGERSTICK GLU 166 mg/dL High [address] [place] [address] Comment on above: Result Comment: ARACELI GEMENT OF PATIENT CARE PER NURSING PROTOCOL Performed By: #### L 500.2500, L100.0100 #### [facility] [address] [place], [address] FINGERSTICK GLU 153 mg/dL High 74-106 [facility] Comment on above: Result Comment: ARACELI GEMENT OF PATIENT CARE PER NURSING PROTOCOL Performed By: #### L 101.9900, L500.2500, L100.0100, L501.6710, L501.1400 #### [facility] [address] [place], [address] EGD Reporton 02-18-2025 EGD Report [facility] Medical Records Department [address] [place] [address] EGD Report MR#: [id number] Acct: [id number] Name: ANDREW ARNOLD Rep #: [id number] : 1945 79 From: Kali Gar DO PCP: VIVIEN FOREMAN MD Status:REG [facility] Patient Name: Andrew Arnold Procedure Date: 02/18/2025 [...] 8 weeks Procedure Code(s): --- Professional --- 27813, 59, Small intestinal endoscopy, enteroscopy beyond second portion of duodenum, not including ileum; with control of bleeding (eg, injection, bipolar cautery, unipolar cautery, laser, heater probe, stapler, plasma director graphics) 03641, 51, Small intestinal endoscopy, enteroscopy beyond second portion of duodenum, not including ileum; with biopsy, single or multiple CPT copyright 2021 [employer]. All rights reserved. The codes documented in this report are preliminary and upon thread cutter review may be revised to meet current compliance requirements. Kali Gar DO 02/18/2025 1:18:51 PM This report has been signed electronically. Number of Addenda: 0 Note Initiated On: 02/18/2025 1:00 PM 02/18/25 1318 Date (more content not included)... Normal [facility] deOrdered By: Kali Gar on 02-18-2025 Glucose [Mass/Vol] 292 mg/dL High 74-106 [facility] Comment on above: MANAGEMENT OF PATIEN T CARE PER NURSING PROTOCOL MR/OP.Faisal 02-18-2025 MR/OP.[facility] Medical Records Department [address] [place] [address] Provation Physician Letter MR#: [id number] Acct: [id number] Name: ANDREW ARNOLD Rep #: [id number] : 1945 79 From: Kali Gar DO PCP: VIVIEN FOREMAN MD Status:[facility] 02/18/2025 Vivien Foreman Md Re : Upper [...] DO Date Dictated: 02/18/25 1300 Date Transcribed: Cartridge Maker: RF Signed [facility] MR/POSTOP.ANEon 02-18-2025 MR/POSTOP.[facility] Medical Records Department [address] [place] [address] Anesthesia Postop Eval I 02/18/25 1320 MR#: [id number] Acct: [id number] Name: ANDREW ARNOLD Rep #: [id number] : 1945 79 From: Anatoliy Mtz PCP: VIVIEN FOREMAN MD Status:REG LESIA Y Race: C Location: [place] [address] Anesthesia: Postop Eval I Current Vital Signs [...] Date Anatoliy Ortizigntariq Signature: Date CC: Signed [facility] [id number] 02-18-2025 [facility] Medical Records Department [address] [place] [address] Anesthesia Postop Eval II 02/18/25 1417 MR#: [id number] Acct: [id number] Name: ANDREW ARNOLD Rep #: [id number] : 1945 79 From: Yun Sapp CRNA PCP: VIVIEN FOREMAN MD Status:REG SDC Y Race: C Location: [address] Anesthesia Postop Eval I Sum Postop [...] Signature: Date CC: Signed Normal [facility] Bedside Glucoseon 02-17-2025 FINGERSTICK GLU 141 mg/dL High 74-106 [facility] Comment on above: Result Comment: ARACELI FISH OF PATIENT CARE PER NURSING PROTOCOL Performed By: #### L 500.2500, L100.0100 #### [facility] [address] [place], [address] FINGERSTICK GLU 155 mg/dL High 74-106 [facility] Comment on above: Result Comment: ARACELI GEMENT OF PATIENT CARE PER NURSING PROTOCOL Performed By: #### L 500.2500, L100.0100 #### [facility] [address] [place], [address] FINGERSTICK GLU 150 mg/dL High [address] [place] [address] Comment on above: Result Comment: ARACELI GEMENT OF PATIENT CARE PER NURSING PROTOCOL Performed By: #### L 101.9900, L500.2500, L100.0100, L501.6710, L501.1400 #### [facility] [address] [place], [address] FINGERSTICK GLU 238 mg/dL High [address] [place] [address] Comment on above: Result Comment: ARACELI GEMENT OF PATIENT CARE PER NURSING PROTOCOL Performed By: #### L 500.2500, L100.0100 #### [facility] [address] [place], [address] FINGERSTICK GLU 217 mg/dL High [address] [place] [address] Comment on above: Result Comment: ARACELI GEMENT OF PATIENT CARE PER NURSING PROTOCOL Performed By: #### L 500.2500, L100.0100 #### [facility] [facility] [address] [place], [address] Anion gap in Serum or Plasma Ordered By: Gaetano Menendez on 02-16-2025 Anion gap [Moles/Vol] 11 mmol/L 5-15 [facility] BUN/creatinine ratioOrdered By: Gaetano Menendez on 02-16-2025 Urea nitrogen/Creatinine [Mass ratio] 20.4 mg/mg High - [facility] Basic Metabolic Profile (BMP )on 02-16-2025 BUN/CRE 20.4 RATIO High - [facility] Comment on above: Performed By: #### L 101.9900, L500.2500, L100.0100, L501.6710, L501.1400 #### [facility] [address] [place], [address] Calcium [Mass/Vol] 8.9 mg/dL Normal 7.6-11.0 [facility] Comment on above: Performed By: #### L 101.9900, L500.2500, L100.0100, L501.6710, L501.1400 #### [facility] [address] [place], [address] Chloride [Moles/Vol] 97 mmol/L Low 98-108 [facility] Comment on above: Performed By: #### L 101.9900, L500.2500, L100.0100, L501.6710, L501.1400 #### [facility] [address] [place], [address] CO2 [Moles/Vol] 23.4 mmol/L Normal 21.0-32.0 [facility] Comment on above: Performed By: #### L 101.9900, L500.2500, L100.0100, L501.6710, L501.1400 #### [facility] [address] [place], [address] Creatinine [Mass/Vol] 0.99 mg/dL Normal 0.70-1.20 [facility] Comment on above: Performed By: #### L 101.9900, L500.2500, L100.0100, L501.6710, L501.1400 #### [facility] [address] [place], [address] ECRCL 66.11 ml/min Normal 50-250 [facility] Comment on above: Performed By: #### L 101.9900, L500.2500, L100.0100, L501.6710, L501.1400 #### [facility] [address] [place], [address] GAP 11 Normal 5-15 [facility] Comment on above: Performed By: #### L 101.9900, L500.2500, L100.0100, L501.6710, L501.1400 #### [facility] [address] [place], [address] GFR/1.73 sq M.predicted among non-blacks MDRD (S/P/Bld) [Vol rate/Area] 77 mL/min/{1.73_m2} Normal >60 [facility] Comment on above: Result Comment: mL/m in/1.73m2 CKD-EPI Creatinine Equation (2020) Performed By: #### L 101.9900, L500.2500, L100.0100, L501.6710, L501.1400 #### [facility] [address] [place], [address] Glucose [Mass/Vol] 265 mg/dL High 70-99 [facility] Comment on above: Performed By: #### L 101.9900, L500.2500, L100.0100, L501.6710, L501.1400 #### [facility] [address] [place], [address] Potassium [Moles/Vol] 4.5 mmol/L Normal 3.3-5.1 [facility] Comment on above: Performed By: #### L 101.9900, L500.2500, L100.0100, L501.6710, L501.1400 #### [facility] [address] [place], [address] Sodium [Moles/Vol] 132 mmol/L Low 133-145 [facility] Comment on above: Performed By: #### L 101.9900, L500.2500, L100.0100, L501.6710, L501.1400 #### [facility] [address] [place], [address] Urea nitrogen [Mass/Vol] 20 mg/dL High 4-19 [facility] Comment on above: Performed By: #### L 101.9900, L500.2500, L100.0100, L501.6710, L501.1400 #### [facility] [address] [place], [address] Bedside Glucoseon 02-16-2025 FINGERSTICK GLU 225 mg/dL High [address] [place] [address] Comment on above: Result Comment: ARACELI GEMENT OF PATIENT CARE PER NURSING PROTOCOL Performed By: #### L 101.9900, L500.2500, L100.0100, L501.6710, L501.1400 #### [facility] [address] [place], [address] FINGERSTICK GLU 258 mg/dL High [address] [place] [address] Comment on above: Result Comment: ARACELI GEMENT OF PATIENT CARE PER NURSING PROTOCOL Performed By: #### L 500.2500, L100.0100 #### [facility] [address] [place], [address] FINGERSTICK GLU 220 mg/dL High [address] [place] [address] Comment on above: Result Comment: ARACELI GEMENT OF PATIENT CARE PER NURSING PROTOCOL Performed By: #### L 500.2500, L100.0100 #### [facility] [address] [place], [address] FINGERSTICK GLU 248 mg/dL [address] Comment on above: Result Comment: ARACELI GEMENT OF PATIENT CARE PER NURSING PROTOCOL Performed By: #### L 501.080 #### [facility] [address] [place], [address] Carbon dioxide, total [Moles /volume] in Central venous bloodOrdered By: Gaetano Menendez on 02-16-2025 CO2 [Moles/Vol] 23.4 mmol/L 21.0-32.0 [facility] Chloride assayOrdered By: Joseluis Menendez on 02-16-2025 Chloride [Moles/Vol] 97 mmol/L Low 98-108 [facility] Glomerular filtration rate ( GFR) estimation/1.73 sq m using serum, plasma, or whole bOrdered By: Gaetano Menendez on 02-16-2025 GFR/1.73 sq M.predicted among non-blacks MDRD (S/P/Bld) [Vol rate/Area] 77 mL/min/{1.73_m2} >60 [facility] Comment on above: mL/min/1.73m2 CKD-EP I Creatinine Equation (2020) Potassium measurement (mass/ volume)Ordered By: Gaetano Menendez on 02-16-2025 Potassium (Unsp spec) [Mass/Vol] 4.5 mmol/L 3.3-5.1 [facility] Serum creatinine measurement (mass/volume)Ordered By: Gaetano Menendez on 02-16-2025 Creatinine [Mass/Vol] 0.99 mg/dL 0.70-1.20 [facility] Serum glucose measurement (m ass/volume)Ordered By: Gaetano Menendez on 02-16-2025 Glucose [Mass/Vol] 265 mg/dL High 70-99 [facility] Serum or plasma calcium nola urement (mass/volume)Ordered By: Gaetano Menendez on 02-16-2025 Calcium [Mass/Vol] 8.9 mg/dL 7.6-11.0 [facility] Serum or plasma urea nitroge n measurement (mass/volume)Ordered By: Gaetano Menendez on 02-16-2025 Urea nitrogen [Mass/Vol] 20 mg/dL High 4-19 [facility] Sodium levelOrdered By: Gaetano Menendez on 02-16-2025 Sodium [Moles/Vol] 132 mmol/L Low 133-145 [facility] Absolute lymphocyte countOrd ered By: Gaetano Menendez on 02-15-2025 Lymphocytes Auto (Unsp spec) [#/Vol] 1.13 10*3/uL 0.83-4.51 [facility] Absolute neutrophil countOrd ered By: Gaetano Menendez on 02-15-2025 Neutrophils (Bld) [#/Vol] 3.3 10*3/uL 2.0-7.7 [facility] Automated lymphocyte count a s percentage of total leukocytesOrdered By: Gaetano Menendez on 02-15-2025 Lymphocytes/100 WBC Auto (Unsp spec) 21.0 % 19-41 [facility] Basic Metabolic Profile (BMP )on 02-15-2025 BUN/CRE 20.1 RATIO High 10-20 [facility] Comment on above: Performed By: #### L 101.9900, L500.2500, L100.0100, L501.6710, L501.1400 #### [facility] [address] [place], [address] Calcium [Mass/Vol] 8.7 mg/dL Normal 7.6-11.0 [facility] Comment on above: Performed By: #### L 101.9900, L500.2500, L100.0100, L501.6710, L501.1400 #### [facility] [address] [place], [address] Chloride [Moles/Vol] 96 mmol/L Low 98-108 [facility] Comment on above: Performed By: #### L 101.9900, L500.2500, L100.0100, L501.6710, L501.1400 #### [facility] [address] [place], [address] CO2 [Moles/Vol] 23.6 mmol/L Normal 21.0-32.0 [facility] Comment on above: Performed By: #### L 101.9900, L500.2500, L100.0100, L501.6710, L501.1400 #### [facility] [address] [place], [address] Creatinine [Mass/Vol] 1.14 mg/dL Normal 0.70-1.20 [facility] Comment on above: Performed By: #### L 101.9900, L500.2500, L100.0100, L501.6710, L501.1400 #### [facility] [address] [place], [address] ECRCL 57.41 ml/min Normal 50-250 [facility] Comment on above: Performed By: #### L 101.9900, L500.2500, L100.0100, L501.6710, L501.1400 #### [facility] [address] [place], [address] GAP 12 Normal 5-15 [facility] Comment on above: Performed By: #### L 101.9900, L500.2500, L100.0100, L501.6710, L501.1400 #### [facility] [address] [place], [address] GFR/1.73 sq M.predicted among non-blacks MDRD (S/P/Bld) [Vol rate/Area] 65 mL/min/{1.73_m2} Normal >60 [facility] Comment on above: Result Comment: mL/m in/1.73m2 CKD-EPI Creatinine Equation (2020) Performed By: #### L 101.9900, L500.2500, L100.0100, L501.6710, L501.1400 #### [facility] [address] [place], [address] Glucose [Mass/Vol] 243 mg/dL High 70-99 [facility] Comment on above: Performed By: #### L 101.9900, L500.2500, L100.0100, L501.6710, L501.1400 #### [facility] [address] [place], [address] Potassium [Moles/Vol] 4.4 mmol/L Normal 3.3-5.1 [facility] Comment on above: Performed By: #### L 101.9900, L500.2500, L100.0100, L501.6710, L501.1400 #### [facility] [address] [place], [address] Sodium [Moles/Vol] 131 mmol/L Low 133-145 [facility] Comment on above: Performed By: #### L 101.9900, L500.2500, L100.0100, L501.6710, L501.1400 #### [facility] [address] [place], [address] Urea nitrogen [Mass/Vol] 23 mg/dL High 4-19 [facility] Comment on above: Performed By: #### L 101.9900, L500.2500, L100.0100, L501.6710, L501.1400 #### [facility] [address] [place], [address] Basophil percentageOrdered B y: Gaetano Shon on 02-15-2025 Basophils/100 WBC (Bld) 0.9 % 0-1 [facility] Bedside Glucoseon 02-15-2025 FINGERSTICK GLU 183 mg/dL High 74-106 [facility] Comment on above: Result Comment: ARACELI GEMENT OF PATIENT CARE PER NURSING PROTOCOL Performed By: #### L 101.9900, L500.2500, L100.0100, L501.6710, L501.1400 #### [facility] [address] [place], [address] FINGERSTICK GLU 231 mg/dL High 74-106 [facility] Comment on above: Result Comment: ARACELI GEMENT OF PATIENT CARE PER NURSING PROTOCOL Performed By: #### L 101.9900, L500.2500, L100.0100, L501.6710, L501.1400 #### [facility] [address] [place], [address] FINGERSTICK GLU 266 mg/dL High 74-106 [facility] Comment on above: Result Comment: ARACELI GEMENT OF PATIENT CARE PER NURSING PROTOCOL Performed By: #### L 101.9900, L500.2500, L100.0100, L501.6710, L501.1400 #### [facility] [address] [place], [address] FINGERSTICK GLU 229 mg/dL High 74-106 [facility] Comment on above: Result Comment: ARACELI GEMENT OF PATIENT CARE PER NURSING PROTOCOL Performed By: #### L 101.9900, L500.2500, L100.0100, L501.6710, L501.1400 #### [facility] [address] [place], [address] CBC W/Diff, Automatedon 08-0 8-2024 Absolute Lymph 1.13 X10 3/uL Normal 0.83-4.51 [facility] Comment on above: Performed By: #### L 101.9900, L500.2500, L100.0100, L501.6710, L501.1400 #### [facility] [address] [place], [address] Absolute Neut 3.3 X10 3/uL Normal 2.0-7.7 [facility] Comment on above: Performed By: #### L 101.9900, L500.2500, L100.0100, L501.6710, L501.1400 #### [facility] [address] [place], [address] Basophils/100 WBC (Bld) 0.9 % Normal 0-1 [facility] Comment on above: Performed By: #### L 101.9900, L500.2500, L100.0100, L501.6710, L501.1400 #### [facility] [address] [place], [address] Eosinophils/100 WBC (Bld) 5.8 % High 0-5 [facility] Comment on above: Performed By: #### L 101.9900, L500.2500, L100.0100, L501.6710, L501.1400 #### [facility] [address] [place], [address] Erythrocyte distribution width (RBC) [Ratio] 14.9 % High 11.6-14.6 [facility] Comment on above: Performed By: #### L 101.9900, L500.2500, L100.0100, L501.6710, L501.1400 #### [facility] [address] [place], [address] Hematocrit (Bld) [Volume fraction] 26.2 % Low 40-54 [facility] Comment on above: Performed By: #### L 101.9900, L500.2500, L100.0100, L501.6710, L501.1400 #### [facility] [address] [place], [address] Hemoglobin (Bld) [Mass/Vol] 8.4 g/dL Low 13.0-16.5 [facility] Comment on above: Performed By: #### L 101.9900, L500.2500, L100.0100, L501.6710, L501.1400 #### [facility] [address] [place], [address] IG% 0.700 Normal 0.0-0.9 [facility] Comment on above: Result Comment: IG% - Immature Granulocytes (promyelocytes, myelocytes and metamyelocytes) > 1% indicates that a LEFT SHIFT is Present. Performed By: #### L 101.9900, L500.2500, L100.0100, L501.6710, L501.1400 #### [facility] [address] [place], [address] Lymphocytes/100 WBC (Bld) 21.0 % Normal 19-41 [facility] Comment on above: Performed By: #### L 101.9900, L500.2500, L100.0100, L501.6710, L501.1400 #### [facility] [address] [place], [address] MCH (RBC) [Entitic mass] 27.2 pg Normal 27.0-32.0 [facility] Comment on above: Performed By: #### L 101.9900, L500.2500, L100.0100, L501.6710, L501.1400 #### [facility] [address] [place], [address] MCHC (RBC) [Mass/Vol] 32.1 g/dL Normal 32-36 [facility] Comment on above: Performed By: #### L 101.9900, L500.2500, L100.0100, L501.6710, L501.1400 #### [facility] [address] [place], [address] MCV (RBC) [Entitic vol] 84.8 fL Normal 80-94 [facility] Comment on above: Performed By: #### L 101.9900, L500.2500, L100.0100, L501.6710, L501.1400 #### [facility] [address] [place], [address] Monocytes/100 WBC (Bld) 9.9 % Normal 0-10 [facility] Comment on above: Performed By: #### L 101.9900, L500.2500, L100.0100, L501.6710, L501.1400 #### [facility] [address] [place], [address] Neutrophils/100 WBC (Bld) 61.7 % Normal 47-70 [facility] Comment on above: Performed By: #### L 101.9900, L500.2500, L100.0100, L501.6710, L501.1400 #### [facility] [address] [place], [address] Nucleated RBC (Bld) [#/Vol] 0 10*3/uL Normal 0-5 [facility] Comment on above: Performed By: #### L 101.9900, L500.2500, L100.0100, L501.6710, L501.1400 #### [facility] [address] [place], [address] Platelet mean volume (Bld) [Entitic vol] 8.8 fL Normal 6.2-12.0 [facility] Comment on above: Performed By: #### L 101.9900, L500.2500, L100.0100, L501.6710, L501.1400 #### [facility] [address] [place], [address] Platelets (Bld) [#/Vol] 243 10*3/uL Normal 150-450 [facility] Comment on above: Performed By: #### L 101.9900, L500.2500, L100.0100, L501.6710, L501.1400 #### [facility] [address] [place], [address] RBC (Bld) [#/Vol] 3.09 10*6/uL Low 4.6-6.2 [facility] Comment on above: Performed By: #### L 101.9900, L500.2500, L100.0100, L501.6710, L501.1400 #### [facility] [address] [place], [address] RDW SD 46.0 fl High 35.1-43.9 [facility] Comment on above: Performed By: #### L 101.9900, L500.2500, L100.0100, L501.6710, L501.1400 #### [facility] [address] [place], [address] WBC (Bld) [#/Vol] 5.4 10*3/uL Normal 4.4-11.0 [facility] Comment on above: Performed By: #### L 101.9900, L500.2500, L100.0100, L501.6710, L501.1400 #### [facility] [address] [place], [address] CRPon 02-15-2025 C-REACTIVE PROT 34.90 mg/L High 0.0-3.0 [facility] Comment on above: Performed By: #### L 101.9900, L500.2500, L100.0100, L501.6710, L501.1400 #### [facility] [address] [place], [address] Eosinophil percentageOrdered By: Gaetano Menendez on 02-15-2025 Eosinophils/100 WBC (Bld) 5.8 % High 0-5 [facility] Erythrocyte Sed Rateon 02-15 SED RATE 47 mm/hr High 0-20 [facility] Comment on above: Performed By: #### L 101.9900, L500.2500, L100.0100, L501.6710, L501.1400 #### [facility] [address] [place], [place], [id number] Erythrocyte distribution wid th ratioOrdered By: Gaetano Menendez on 02-15-2025 Erythrocyte distribution width (RBC) [Ratio] 14.9 % High 11.6-14.6 [facility] Erythrocyte distribution wid th standard deviationOrdered By: Gaetano Menendez on 02-15-2025 Erythrocyte distribution width (RBC) [Ratio] 46.0 fl High 35.1-43.9 [facility] Erythrocyte sedimentation ra teOrdered By: Gaetano Menendez 02-15-2025 ESR (Bld) [Velocity] 47 mm/h High 0-20 [facility] Hematocrit Auto (Bld) [Volum e fraction]Ordered By: Gaetano Menendez 02-15-2025 Hematocrit (Bld) [Volume fraction] 26.2 % Low 40-54 [facility] Hemoglobin measurementOrdere d By: Gaetano Menendez 02-15-2025 Hemoglobin (Bld) [Mass/Vol] 8.4 g/dL Low 13.0-16.5 [facility] Immature granulocytes/100 WB C Auto (Bld)Ordered By: Gaetano Menendez on 02-15-2025 Immature granulocytes/100 WBC (Bld) 0.700 % 0.0-0.9 [facility] Comment on above: IG% - Immature Granu locytes (promyelocytes, myelocytes and metamyelocytes) > 1% indicates that a LEFT SHIFT is Present. MCV (mean corpuscular volume ) determinationOrdered By: Gaetano Shon on 02-15-2025 MCV (RBC) [Entitic vol] 84.8 fL 80-94 [facility] Mean corpuscular hemoglobin (MCH) determinationOrdered By: Gaetano Menendez on 02-15-2025 MCH (RBC) [Entitic mass] 27.2 pg 27.0-32.0 [facility] Mean corpuscular hemoglobin concentration (MCHC) determinationOrdered By: Gaetano Menendez on 02-15-2025 MCHC (RBC) [Mass/Vol] 32.1 g/dL 32-36 [facility] Mean platelet volume determi nationOrdered By: Gaetano Menendez on 02-15-2025 Platelet mean volume (Bld) [Entitic vol] 8.8 fL 6.2-12.0 [facility] Monocyte percentageOrdered B y: Gaetano Menendez on 02-15-2025 Monocytes/100 WBC (Bld) 9.9 % 0-10 [facility] Neutrophil percentageOrdered By: Gaetano Menendez on 02-15-2025 Neutrophils/100 WBC (Bld) 61.7 % 47-70 [facility] Nucleated red blood cell per centageOrdered By: Gaetano Menendez on 02-15-2025 Nucleated RBC/100 WBC (Bld) [Ratio] 0 % 0-5 [facility] Platelet countOrdered By: Joseluis Menendez on 02-15-2025 Platelets (Bld) [#/Vol] 243 10*3/uL 150-450 [facility] RBC Auto (Bld) [#/Vol]Ordere d By: Gaetano Menendez on 02-15-2025 RBC (Bld) [#/Vol] 3.09 10*6/uL Low 4.6-6.2 [facility] Serum or plasma C reactive p rotein measurement (mass/volume)Ordered By: Gaetano Menendez on 02-15-2025 CRP [Mass/Vol] 34.90 mg/L High 0.0-3.0 [facility] White blood cell (WBC) count Ordered By: Gaetano Menendez on 02-15-2025 WBC (Bld) [#/Vol] 5.4 10*3/uL 4.4-11.0 [facility] Basic Metabolic Profile (BMP )on 02-14-2025 BUN/CRE 19.3 RATIO Normal 10-20 [facility] Comment on above: Performed By: #### L 501.550 #### [facility] [address] [place], [address] Calcium [Mass/Vol] 8.5 mg/dL Normal 7.6-11.0 [facility] Comment on above: Performed By: #### L 501.080 #### [facility] [address] [place], [address] Chloride [Moles/Vol] 94 mmol/L Low 98-108 [facility] Comment on above: Performed By: #### L 501.080 #### [facility] [address] [place], [address] CO2 [Moles/Vol] 27.5 mmol/L Normal 21.0-32.0 [facility] Comment on above: Performed By: #### L 501.080 #### [facility] [address] [place], [address] Creatinine [Mass/Vol] 1.23 mg/dL High 0.70-1.20 [facility] Comment on above: Performed By: #### L 501.080 #### [facility] [address] [place], [address] ECRCL 53.21 ml/min Normal 50-250 [facility] Comment on above: Performed By: #### L 501.080 #### [facility] [address] [place], [address] GAP 8 Normal 5-15 [facility] Comment on above: Performed By: #### L 501.080 #### [facility] [address] [place], [address] GFR/1.73 sq M.predicted among non-blacks MDRD (S/P/Bld) [Vol rate/Area] 59 mL/min/{1.73_m2} Low >60 [facility] Comment on above: Result Comment: mL/m in/1.73m2 CKD-EPI Creatinine Equation (2020) Performed By: #### L 501.080 #### [facility] [address] [place], [address] Glucose [Mass/Vol] 177 mg/dL High 70-99 [facility] Comment on above: Performed By: #### L 501.080 #### [facility] [address] [place], [address] Potassium [Moles/Vol] 5.0 mmol/L Normal 3.3-5.1 [facility] Comment on above: Performed By: #### L 501.080 #### [facility] [address] [place], [address] Sodium [Moles/Vol] 130 mmol/L Low 133-145 [facility] Comment on above: Performed By: #### L 501.080 #### [facility] [address] [place], [address] Urea nitrogen [Mass/Vol] 24 mg/dL High 4-19 [facility] Comment on above: Performed By: #### L 501.080 #### [facility] [address] [place], [address] Bedside Glucoseon 02-14-2025 FINGERSTICK GLU 260 mg/dL High 74-106 [facility] Comment on above: Result Comment: ARACELI GEMENT OF PATIENT CARE PER NURSING PROTOCOL Performed By: #### L 101.9900, L500.2500, L100.0100, L501.6710, L501.1400 #### [facility] [address] [place], [address] FINGERSTICK GLU 165 mg/dL High 74-106 [facility] Comment on above: Result Comment: ARACELI GEMENT OF PATIENT CARE PER NURSING PROTOCOL Performed By: #### L 101.9900, L500.2500, L100.0100, L501.6710, L501.1400 #### [facility] [address] [place], [address] FINGERSTICK GLU 135 mg/dL High 74-106 [facility] Comment on above: Result Comment: ARACELI GEMENT OF PATIENT CARE PER NURSING PROTOCOL Performed By: #### L 101.9900, L500.2500, L100.0100, L501.6710, L501.1400 #### [facility] [address] [place], [address] FINGERSTICK GLU 162 mg/dL High 74-106 [facility] Comment on above: Result Comment: ARACELI GEMENT OF PATIENT CARE PER NURSING PROTOCOL Performed By: #### L 101.9900, L500.2500, L100.0100, L501.6710, L501.1400 #### [facility] [address] [place], [address] Basic Metabolic Profile (BMP )on 02-13-2025 BUN/CRE 19.7 RATIO Normal 10-20 [facility] Comment on above: Performed By: #### L 501.080 #### [facility] [address] [place], [address] Calcium [Mass/Vol] 8.4 mg/dL Normal 7.6-11.0 [facility] Comment on above: Performed By: #### L 501.080 #### [facility] [address] [place], [address] Chloride [Moles/Vol] 93 mmol/L Low 98-108 [facility] Comment on above: Performed By: #### L 501.080 #### [facility] [address] [place], [address] CO2 [Moles/Vol] 24.6 mmol/L Normal 21.0-32.0 [facility] Comment on above: Performed By: #### L 501.080 #### [facility] [address] [place], [address] Creatinine [Mass/Vol] 1.31 mg/dL High 0.70-1.20 [facility] Comment on above: Performed By: #### L 501.080 #### [facility] [address] [place], [address] ECRCL 49.35 ml/min Low 50-250 [facility] Comment on above: Performed By: #### L 501.080 #### [facility] [address] [place], [address] GAP 11 Normal 5-15 [facility] Comment on above: Performed By: #### L 501.080 #### [facility] [address] [place], [address] GFR/1.73 sq M.predicted among non-blacks MDRD (S/P/Bld) [Vol rate/Area] 55 mL/min/{1.73_m2} Low >60 [facility] Comment on above: Result Comment: mL/m in/1.73m2 CKD-EPI Creatinine Equation (2020) Performed By: #### L 501.080 #### [facility] [address] [place], [address] Glucose [Mass/Vol] 164 mg/dL High 70-99 [facility] Comment on above: Performed By: #### L 501.080 #### [facility] [address] [place], [address] Potassium [Moles/Vol] 5.1 mmol/L Normal 3.3-5.1 [facility] Comment on above: Performed By: #### L 501.080 #### [facility] [address] [place], [address] Sodium [Moles/Vol] 128 mmol/L Low 133-145 [facility] Comment on above: Performed By: #### L 501.080 #### [facility] [address] [place], [address] Urea nitrogen [Mass/Vol] 26 mg/dL High 4-19 [facility] Comment on above: Performed By: #### L 501.080 #### [facility] [address] [place], [address] Bedside Glucoseon 02-13-2025 FINGERSTICK GLU 127 mg/dL High 74-106 [facility] Comment on above: Result Comment: ARACELI GEMENT OF PATIENT CARE PER NURSING PROTOCOL Performed By: #### L 501.080 #### [facility] [address] [place], [address] FINGERSTICK GLU 242 mg/dL High 74-106 [facility] Comment on above: Result Comment: ARACELI GEMENT OF PATIENT CARE PER NURSING PROTOCOL Performed By: #### L 101.9900, L500.2500, L100.0100, L501.6710, L501.1400 #### [facility] [address] [place], [address] FINGERSTICK GLU 197 mg/dL High 74-106 [facility] Comment on above: Result Comment: ARACELI GEMENT OF PATIENT CARE PER NURSING PROTOCOL Performed By: #### L 101.9900, L500.2500, L100.0100, L501.6710, L501.1400 #### [facility] [address] [place], [address] FINGERSTICK GLU 154 mg/dL High 74-106 [facility] Comment on above: Result Comment: ARACELI GEMENT OF PATIENT CARE PER NURSING PROTOCOL Performed By: #### L 101.9900, L500.2500, L100.0100, L501.6710, L501.1400 #### [facility] [address] [place], [address] FINGERSTICK GLU 133 mg/dL High 74-106 [facility] Comment on above: Result Comment: ARACELI GEMENT OF PATIENT CARE PER NURSING PROTOCOL Performed By: #### L 501.080 #### [facility] [address] [place], [address] HH, Hemoglobin AND Hematocri ton 02-13-2025 Hematocrit (Bld) [Volume fraction] 28.1 % Low 40-54 [facility] Comment on above: Performed By: #### L 101.9900, L500.2500, L100.0100, L501.6710, L501.1400 #### [facility] [address] [place], [address] Hemoglobin (Bld) [Mass/Vol] 8.8 g/dL Low 13.0-16.5 [facility] Comment on above: Performed By: #### L 101.9900, L500.2500, L100.0100, L501.6710, L501.1400 #### [facility] [address] [place], [address] Osmolality urOrdered By: Gaetano Menendez on 02-13-2025 Osmolality (U) [Osmolality] 416 mOsm/KG >50 [facility] Comment on above: Normal Urine Referen ce Ranges Random: 50 - 1200 mOsm/kg H20 depending on fluid intake Random: >850 mOsm/kg after 12 hour fluid restriction 24 hour: ~300 - 900 mOsm/kg H2O Osmolality, Serumon 02-14-20 25 OSMOLALITY,SER 291 mOsm/KG Normal 280-301 [facility] Comment on above: Performed By: #### L 101.9900, L500.2500, L100.0100, L501.6710, L501.1400 #### [facility] [address] [place], [address] Osmolality, Urineon 02-14-20 25 OSMOLALITY,UR 416 mOsm/KG Normal [facility] Comment on above: Result Comment: Normal Urine Reference Ranges Random: 50 - 1200 mOsm/kg H20 depending on fluid intake Random: >850 mOsm/kg after 12 hour fluid restriction 24 hour: 300 - 900 mOsm/kg H2O Performed By: #### L 501.080 #### [facility] [address] [place], [address] Urine sodium measurement (mo les/volume)Ordered By: Gaetano Menendez on 02-13-2025 Sodium (U) [Moles/Vol] 28 mmol/L Normal Not Establ. [facility] Comment on above: Performed By: #### L 101.9900, L500.2500, L100.0100, L501.6710, L501.1400 #### [facility] [address] [place], [address] Basic Metabolic Profile (BMP )on 02-12-2025 BUN/CRE 14.4 RATIO Normal 10-20 [facility] Comment on above: Performed By: #### L 501.080 #### [facility] [address] [place], [address] Calcium [Mass/Vol] 8.5 mg/dL Normal 7.6-11.0 [facility] Comment on above: Performed By: #### L 501.080 #### [facility] [address] [place], [address] Chloride [Moles/Vol] 97 mmol/L Low 98-108 [facility] Comment on above: Performed By: #### L 501.080 #### [facility] [address] [place], [address] CO2 [Moles/Vol] 28.1 mmol/L Normal 21.0-32.0 [facility] Comment on above: Performed By: #### L 501.080 #### [facility] [address] [place], [address] Creatinine [Mass/Vol] 1.44 mg/dL High 0.70-1.20 [facility] Comment on above: Performed By: #### L 501.080 #### [facility] [address] [place], [address] ECRCL 44.90 ml/min Low 50-250 [facility] Comment on above: Performed By: #### L 501.080 #### [facility] [address] [place], [address] GAP 10 Normal 5-15 [facility] Comment on above: Performed By: #### L 501.080 #### [facility] [address] [place], [address] GFR/1.73 sq M.predicted among non-blacks MDRD (S/P/Bld) [Vol rate/Area] 49 mL/min/{1.73_m2} Low >60 [facility] Comment on above: Result Comment: mL/m in/1.73m2 CKD-EPI Creatinine Equation (2020) Performed By: #### L 501.080 #### [facility] [address] [place], [address] Glucose [Mass/Vol] 169 mg/dL High 70-99 [facility] Comment on above: Performed By: #### L 501.080 #### [facility] [address] [place], [address] Potassium [Moles/Vol] 5.0 mmol/L Normal 3.3-5.1 [facility] Comment on above: Performed By: #### L 501.080 #### [facility] [address] [place], [address] Sodium [Moles/Vol] 134 mmol/L Normal 133-145 [facility] Comment on above: Performed By: #### L 501.080 #### [facility] [address] [place], [address] Urea nitrogen [Mass/Vol] 21 mg/dL High 4-19 [facility] Comment on above: Performed By: #### L 501.080 #### [facility] [address] [place], [address] Bedside Glucoseon 02-12-2025 FINGERSTICK GLU 59 mg/dL Low 74-106 [facility] Comment on above: Result Comment: ARACELI GEMENT OF PATIENT CARE PER NURSING PROTOCOL Performed By: #### L 101.9900, L500.2500, L100.0100, L501.6710, L501.1400 #### [facility] [address] [place], [address] FINGERSTICK GLU 66 mg/dL Low 74-106 [facility] Comment on above: Result Comment: ARACELI GEMENT OF PATIENT CARE PER NURSING PROTOCOL Performed By: #### L 501.080 #### [facility] [address] [place], [address] FINGERSTICK GLU 55 mg/dL Low 74-106 [facility] Comment on above: Result Comment: ARACELI GEMENT OF PATIENT CARE PER NURSING PROTOCOL Performed By: #### L 501.080 #### [facility] [address] [place], [address] FINGERSTICK GLU 74 mg/dL Normal 74-106 [facility] Comment on above: Result Comment: ARACELI GEMENT OF PATIENT CARE PER NURSING PROTOCOL Performed By: #### L 101.9900, L500.2500, L100.0100, L501.6710, L501.1400 #### [facility] [address] [place], [address] FINGERSTICK GLU 157 mg/dL High 74-106 [facility] Comment on above: Result Comment: ARACELI GEMENT OF PATIENT CARE PER NURSING PROTOCOL Performed By: #### L 101.9900, L500.2500, L100.0100, L501.6710, L501.1400 #### [facility] [address] [place], [address] Stool Occult Blood iFOBon STOB Positive Normal [facility] Comment on above: Performed By: #### L 101.9900, L500.2500, L100.0100, L501.6710, L501.1400 #### [facility] [address] [place], [address] Stool gastrointestinal hemog lobin detection by immunologic methodOrdered By: Gaetano Menendez on 02-12-2025 Lower GI hemoglobin IA Ql (Stl) Positive Abnormal [facility] Bedside Glucoseon 02-11-2025 FINGERSTICK GLU 167 mg/dL High 74-106 [facility] Comment on above: Result Comment: ARACELI GEMENT OF PATIENT CARE PER NURSING PROTOCOL Performed By: #### L 101.9900, L500.2500, L100.0100, L501.6710, L501.1400 #### [facility] [address] [place], [address] FINGERSTICK GLU 189 mg/dL High 74-106 [facility] Comment on above: Result Comment: ARACELI GEMENT OF PATIENT CARE PER NURSING PROTOCOL Performed By: #### L 101.9900, L500.2500, L100.0100, L501.6710, L501.1400 #### [facility] [address] [place], [address] FINGERSTICK GLU 100 mg/dL Normal -106 [facility] Comment on above: Result Comment: ARACELI GEMENT OF PATIENT CARE PER NURSING PROTOCOL Performed By: #### L 501.080 #### [facility] [address] [place], [address] FINGERSTICK GLU 190 mg/dL High 74-106 [facility] Comment on above: Result Comment: ARACELI GEMENT OF PATIENT CARE PER NURSING PROTOCOL Performed By: #### L 501.080 #### [facility] [address] [place], [address] Consultation - Infectious Dx on 02-11-2025 Consultation - Infectious Dx [facility] Medical Records Department [address] [place] [address] Consultation - Infectious Dx 02/11/25 1130 MR#: [id number] Acct: [id number] Name: ANDREW ARNOLD Rep #: [id number] : 1945 79 From: Nik Snyder MD PCP: Care Physician,No Primary Status:ADM IN Location: TCU TC22-1 Assessment Plan Assessment/Plan (1) Abscess of left hand: (2) Streptococcal bacteremia: PLAN: Reviewed [facility] records. Overall much improved. Ceftriaxone until 02/27, fluconazole until 02/20. Will follow, thank you (3) Esophageal candidiasis: HPI Consult Data Date of Consult: 02/11/25 HPI Narrative Reason for Consultation: hand infection HPI Narrative: ANDREW ARNOLD, is a 79 M who presented to [facility] 01/28/25 with several days worsening L hand [...] and neg except as noted above. [facility] Medical History History of subdural hematoma TIA [...] (more content not included)... Normal [facility] BRCon 02-10-2025 Normal [facility] Comment on above: Result Comment: [id number] AP RC TRANSFUSED 02/12/25 1102 [id number] AP TRANSFUSED 02/12/25 0846 Performed By: #### L 101.9900, L500.2500, L100.0100, L501.6710, L501.1400 #### [facility] [address] [place], [address] Basic Metabolic Profile (BMP )on 02-10-2025 BUN/CRE 10.9 RATIO Normal 10-20 [facility] Comment on above: Performed By: #### L 500.2500, L100.0100 #### [facility] [address] [place], [address] Calcium [Mass/Vol] 8.5 mg/dL Normal 7.6-11.0 [facility] Comment on above: Performed By: #### L 500.2500, L100.0100 #### [facility] [address] [place], [address] Chloride [Moles/Vol] 95 mmol/L Low 98-108 [facility] Comment on above: Performed By: #### L 500.2500, L100.0100 #### [facility] [address] [place], [address] CO2 [Moles/Vol] 25.6 mmol/L Normal 21.0-32.0 [facility] Comment on above: Performed By: #### L 500.2500, L100.0100 #### [facility] [address] [place], [address] Creatinine [Mass/Vol] 1.06 mg/dL Normal 0.70-1.20 [facility] Comment on above: Performed By: #### L 500.2500, L100.0100 #### [facility] [address] [place], [address] ECRCL 60.99 ml/min Normal 50-250 [facility] Comment on above: Performed By: #### L 500.2500, L100.0100 #### [facility] [address] [place], [address] GAP 11 Normal 5-15 [facility] Comment on above: Performed By: #### L 500.2500, L100.0100 #### [facility] [address] [place], [address] GFR/1.73 sq M.predicted among non-blacks MDRD (S/P/Bld) [Vol rate/Area] 71 mL/min/{1.73_m2} Normal >60 [facility] Comment on above: Result Comment: mL/m in/1.73m2 CKD-EPI Creatinine Equation (2020) Performed By: #### L 500.2500, L100.0100 #### [facility] [address] [place], [address] Glucose [Mass/Vol] 204 mg/dL High 70-99 [facility] Comment on above: Performed By: #### L 500.2500, L100.0100 #### [facility] [address] [place], [address] Potassium [Moles/Vol] 3.9 mmol/L Normal 3.3-5.1 [facility] Comment on above: Performed By: #### L 500.2500, L100.0100 #### [facility] [address] [place], [address] Sodium [Moles/Vol] 132 mmol/L Low 133-145 [facility] Comment on above: Performed By: #### L 500.2500, L100.0100 #### [facility] [address] [place], [address] Urea nitrogen [Mass/Vol] 12 mg/dL Normal 4-19 [facility] Comment on above: Performed By: #### L 500.2500, L100.0100 #### [facility] [address] [place], [address] Bedside Glucoseon 02-10-2024 FINGERSTICK GLU 317 mg/dL High 74-106 [facility] Comment on above: Result Comment: ARACELI GEMENT OF PATIENT CARE PER NURSING PROTOCOL Performed By: #### L 501.080 #### [facility] [address] [place], [address] FINGERSTICK GLU 349 mg/dL High 74-106 [facility] Comment on above: Result Comment: ARACELI GEMENT OF PATIENT CARE PER NURSING PROTOCOL Performed By: #### L 101.9900, L500.2500, L100.0100, L501.6710, L501.1400 #### [facility] [address] [place], [address] FINGERSTICK GLU 198 mg/dL High 74-106 [facility] Comment on above: Result Comment: ARACELI GEMENT OF PATIENT CARE PER NURSING PROTOCOL Performed By: #### L 501.080 #### [facility] [address] [place], [address] CBC W/Diff, Automatedon 08-0 Absolute Lymph 1.57 X10 3/uL Normal 0.83-4.51 [facility] Comment on above: Performed By: #### L 500.2500, L100.0100 #### [facility] [address] [place], [address] Absolute Neut 6.1 X10 3/uL Normal 2.0-7.7 [facility] Comment on above: Performed By: #### L 500.2500, L100.0100 #### [facility] [address] [place], [address] Basophils/100 WBC (Bld) 0.7 % Normal 0-1 [facility] Comment on above: Performed By: #### L 500.2500, L100.0100 #### [facility] [address] [place], [address] Eosinophils/100 WBC (Bld) 1.6 % Normal 0-5 [facility] Comment on above: Performed By: #### L 500.2500, L100.0100 #### [facility] [address] [place], [address] Erythrocyte distribution width (RBC) [Ratio] 14.5 % Normal 11.6-14.6 [facility] Comment on above: Performed By: #### L 500.2500, L100.0100 #### [facility] [address] [place], [address] Hematocrit (Bld) [Volume fraction] 23.3 % Low 40-54 [facility] Comment on above: Performed By: #### L 500.2500, L100.0100 #### [facility] [address] [place], [address] Hemoglobin (Bld) [Mass/Vol] 7.5 g/dL Low 13.0-16.5 [facility] Comment on above: Performed By: #### L 500.2500, L100.0100 #### [facility] [address] [place], [address] IG% 1.100 High 0.0-0.9 [facility] Comment on above: Result Comment: IG% - Immature Granulocytes (promyelocytes, myelocytes and metamyelocytes) > 1% indicates that a LEFT SHIFT is Present. Performed By: #### L 500.2500, L100.0100 #### [facility] [address] [place], [address] Lymphocytes/100 WBC (Bld) 18.0 % Low 19-41 [facility] Comment on above: Performed By: #### L 500.2500, L100.0100 #### [facility] [address] [place], [address] MCH (RBC) [Entitic mass] 26.4 pg Low 27.0-32.0 [facility] Comment on above: Performed By: #### L 500.2500, L100.0100 #### [facility] [address] [place], [address] MCHC (RBC) [Mass/Vol] 32.2 g/dL Normal 32-36 [facility] Comment on above: Performed By: #### L 500.2500, L100.0100 #### [facility] [address] [place], [address] MCV (RBC) [Entitic vol] 82.0 fL Normal 80-94 [facility] Comment on above: Performed By: #### L 500.2500, L100.0100 #### [facility] [address] [place], [address] Monocytes/100 WBC (Bld) 9.0 % Normal 0-10 [facility] Comment on above: Performed By: #### L 500.2500, L100.0100 #### [facility] [address] [place], [address] Neutrophils/100 WBC (Bld) 69.6 % Normal 47-70 [facility] Comment on above: Performed By: #### L 500.2500, L100.0100 #### [facility] [address] [place], [address] Nucleated RBC (Bld) [#/Vol] 0 10*3/uL Normal 0-5 [facility] Comment on above: Performed By: #### L 500.2500, L100.0100 #### [facility] [address] [place], [address] Platelet mean volume (Bld) [Entitic vol] 8.4 fL Normal 6.2-12.0 [facility] Comment on above: Performed By: #### L 500.2500, L100.0100 #### [facility] [address] [place], [address] Platelets (Bld) [#/Vol] 346 10*3/uL Normal 150-450 [facility] Comment on above: Performed By: #### L 500.2500, L100.0100 #### [facility] [address] [place], [address] RBC (Bld) [#/Vol] 2.84 10*6/uL Low 4.6-6.2 [facility] Comment on above: Performed By: #### L 500.2500, L100.0100 #### [facility] [address] [place], [address] RDW SD 42.7 fl Normal 35.1-43.9 [facility] Comment on above: Performed By: #### L 500.2500, L100.0100 #### [facility] [address] [place], [address] WBC (Bld) [#/Vol] 8.7 10*3/uL Normal 4.4-11.0 [facility] Comment on above: Performed By: #### L 500.2500, L100.0100 #### [facility] [address] [place], [address] Chest 1 View (Portable)on Chest 1 View (Portable) [facility] Imaging Services [address] [place] [address] Chest 1 View (Portable) MR#: [id number] Acct: [id number] Name: ANDREW ARNOLD Rep #: [id number] : 1945 M 79 From: Petey Andersen DO PCP: Care Physician,No Primary Status: ADM IN Study: Chest 1 View (Portable) Date of Exam: 02/10/25 Exam# [id number] Ordering Dr: Gaetano Menendez MD PROCEDURE: CHEST [...] acute process in the chest. [facility] CC: Dr. 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 Performed By: #### L 501.080 #### [facility] [address] [place] [address], [address] Hemoglobin A1c percentageOrd ered By: Gaetano Menendez on 02-10-2025 HbA1c (Bld) [Mass fraction] 8.3 % High <5.7 [facility] Comment on above: Normal < 5.7 % Predi abetic 5.7 - 6.4 % Diabetic >or= 6.5 % Please note range changes. Iron measurement (mass/mass) Ordered By: Gaetano Menendez on 02-10-2025 Iron (Unsp spec) [Mass/Mass] 23 ug/dL Low 65-175 [facility] Iron+Iron Binding Capacityon 02-10-2025 TIBC 228 ug/dL Low 250-450 [facility] Comment on above: Performed By: #### L 101.9900, L500.2500, L100.0100, L501.6710, L501.1400 #### [facility] [address] [place], [address] No Panel InformationOrdered By: Gaetano Menendez on 02-10-2025 Unsaturated Iron Binding Capacity 205 ug/dL Low 228-428 [facility] Serum or plasma iron saturat ion measurement (mass fraction)Ordered By: Gaetano Menendez on 02-10-2025 Iron saturation [Mass fraction] 10.1 % 9-55 [facility] Comment on above: Previous reported re sult: 10.0 %Edited by: CarousellONER on 02/10/25:1359 Type AND Screenon 02-10-2025 Ab SCREEN GEL Negative Normal [facility] Comment on above: Order Comment: CMV N EG? NNumber of units to transfuse: 2Reason for Ordering Blood: AcuteAre the blood/blood products to be transfused? YIs the patient having/had surgery? NWhen Ale Performed By: #### L 101.9900, L500.2500, L100.0100, L501.6710, L501.1400 #### [facility] [address] [place], [address] BASIC METABOLIC PANELon Anion gap [Moles/Vol] 15 mmol/L Normal 10-20 [facility] Comment on above: Order Comment: [facility] has implemented the eGFR calculation approach that does not have a coefficient for race that conforms to the NKF-ASN Task Force Recommendations. Performed By: #### 4 6124 #### [address] [place], [place] [address] Yusuf Villaseñor M.D. [id number] Calcium [Mass/Vol] 8.6 mg/dL Normal 8.4-10.2 [facility] Comment on above: Order Comment: [facility] has implemented the eGFR calculation approach that does not have a coefficient for race that conforms to the NKF-ASN Task Force Recommendations. Performed By: #### 4 6189 ####[facility] [address] [place], [place] [address] Yusuf Villaseñor M.D. [id number] Chloride [Moles/Vol] 95 mmol/L Low 98-108 [facility] Comment on above: Order Comment: [facility] has implemented the eGFR calculation approach that does not have a coefficient for race that conforms to the NKF-ASN Task Force Recommendations. Performed By: #### 4 6124 #### [address] [place] [address] Yusuf Villaseñor M.D. [id number] Creatinine [Mass/Vol] 1.19 mg/dL Normal 0.80-1.30 [facility] Comment on above: Order Comment: [facility] has implemented the eGFR calculation approach that does not have a coefficient for race that conforms to the NKF-ASN Task Force Recommendations. Performed By: #### 4 6124 #### [address] [place] [address] Yusuf Villaseñor M.D. [id number] EGFR 62 mL/min/1.73 m2 Normal >=60 [facility] Comment on above: Order Comment: [facility] has implemented the eGFR calculation approach that does not have a coefficient for race that conforms to the NKF-ASN Task Force Recommendations. Result Comment: Aide mated GFR was calculated using the 2020 CKD-EPI creatinine equation. Performed By: #### 4 6124 #### [address] [place] [address] Yusuf Villaseñor M.D. [id number] Glucose [Mass/Vol] 142 mg/dL High 65-99 [facility] Comment on above: Order Comment: [facility] has implemented the eGFR calculation approach that does not have a coefficient for race that conforms to the NKF-ASN Task Force Recommendations. Performed By: #### 4 [id number] #### LAB [address] [address] Yusuf Villaseñor M.D. [id number] HCO3 (Bld) [Moles/Vol] 25 mmol/L Normal 21-32 [facility] Comment on above: Order Comment: [facility] has implemented the eGFR calculation approach that does not have a coefficient for race that conforms to the NKF-ASN Task Force Recommendations. Performed By: #### 4 [id number] #### LAB [address] [address] Yusuf Villaseñor M.D. [id number] Potassium [Moles/Vol] 4.0 mmol/L Normal 3.5-5.1 [facility] Comment on above: Order Comment: [facility] has implemented the eGFR calculation approach that does not have a coefficient for race that conforms to the NKF-ASN Task Force Recommendations. Performed By: #### 4 [id number] #### LAB [address] [address] Yusuf Villaseñor M.D. [id number] Sodium [Moles/Vol] 131 mmol/L Low 135-145 [facility] Comment on above: Order Comment: [facility] has implemented the eGFR calculation approach that does not have a coefficient for race that conforms to the NKF-ASN Task Force Recommendations. Performed By: #### 4 [id number] #### LAB [address] [address] Yusuf Villaseñor M.D. [id number] Urea nitrogen [Mass/Vol] 11 mg/dL Normal 8-25 [facility] Comment on above: Order Comment: [facility] has implemented the eGFR calculation approach that does not have a coefficient for race that conforms to the NKF-ASN Task Force Recommendations. Performed By: #### 4 6124 #### LAB [address] [address] Yusuf Villaseñor M.D. [id number] Urea nitrogen/Creatinine [Mass ratio] 9.2 mg/mg Low 10.0-20.0 [facility] Comment on above: Order Comment: [facility] has implemented the eGFR calculation approach that does not have a coefficient for race that conforms to the NKF-ASN Task Force Recommendations. Performed By: #### 4 [id number] #### LAB [address] [address] Yusuf Villaseñor M.D. [id number] Bacteria identified Cx Nom ( Bld)on 02-09-2025 Interpretation and review of laboratory results Normal [facility] Basic metabolic 2000 panelon 02-09-2025 Anion gap [Moles/Vol] 15 mmol/L 10 - 2 0 mmol/L [facility] Calcium [Mass/Vol] 8.6 mg/dL 8.4 - 10. 2 mg/dL [facility] Chloride [Moles/Vol] 95 mmol/L Low 98 - 10 8 mmol/L [facility] Creatinine [Mass/Vol] 1.19 mg/dL 0.80 - 1.30 mg/dL [facility] GFR/1.73 sq M.predicted CKD-EPI (S/P/Bld) [Vol rate/Area] 62 - PINF [facility] Glucose [Mass/Vol] 142 mg/dL High 65 - 99 mg/dL [facility] HCO3 [Moles/Vol] 25 mmol/L 21 - 32 mmol/L [facility] Potassium [Moles/Vol] 4 mmol/L 3.5 - 5.1 mmol/L [facility] Sodium [Moles/Vol] 131 mmol/L Low 135 - 145 mmol/L [facility] Urea nitrogen [Mass/Vol] 11 mg/dL 8 - 25 mg/dL [facility] Urea nitrogen/Creatinine [Mass ratio] 9.2 mg/mg Low 10.0 - 20.0 [facility] Bedside Glucoseon 02-09-2025 [facility] GLU 271 mg/dL High 74-106 [facility] Comment on above: Result Comment: ARACELI FISH OF PATIENT CARE PER NURSING PROTOCOL Performed By: #### L 101.9900, L500.2500, L100.0100, L501.6710, L501.1400 #### [facility] [address] [place], [address] CBC Auto Differentialon Basophils (Bld) [#/Vol] 0.04 10*3/uL [facility] Basophils/100 WBC (Bld) 0.4 % [facility] Eosinophils (Bld) [#/Vol] 0.2 10*3/uL [facility] Eosinophils/100 WBC (Bld) 1.8 % [facility] Erythrocyte distribution width (RBC) [Entitic vol] 14.6 % 11.6 - 14.8 % [facility] Hematocrit (Bld) [Volume fraction] 24.4 % Low 41.0 - 53.0 % [facility] Hemoglobin (Bld) [Mass/Vol] 7.6 g/dL Low 13.5 - 17.5 g/dL [facility] Immature granulocytes (Bld) [#/Vol] 0.21 10*3/uL [facility] Immature granulocytes/100 WBC (Bld) 1.9 % [facility] Interpretation and review of laboratory results Abnormal [facility] Lymphocytes (Bld) [#/Vol] 1.81 10*3/uL [facility] Lymphocytes/100 WBC (Bld) 16 % [facility] MCH (RBC) [Entitic mass] 26 pg 26.0 - 34.0 pg [facility] MCHC (RBC) [Mass/Vol] 31.1 g/dL 31.0 - 37.0 g/dL [facility] MCV (RBC) [Entitic vol] 83.6 fL 80.0 - 100.0 fL [facility] Monocytes (Bld) [#/Vol] 0.78 10*3/uL [facility] Monocytes/100 WBC (Bld) 6.9 % [facility] Neutrophils (Bld) [#/Vol] 8.26 10*3/uL High [facility] Neutrophils/100 WBC (Bld) 73 % [facility] Nucleated RBC (Bld) [#/Vol] 0 10*3/uL [facility] Nucleated RBC/100 WBC (Bld) [Ratio] 0 % [facility] Platelet mean volume (Bld) [Entitic vol] 8.5 fL Low 9.4 - 12.4 fL [facility] Platelets (Bld) [#/Vol] 325 10*3/uL [facility] RBC (Bld) [#/Vol] 2.92 10*6/uL Low [facility] WBC (Bld) [#/Vol] 11.3 10*3/uL High [facility] CBC WITH AUTO DIFFERENTIALon 02-09-2025 AUTO NRBC 0.0 % Normal [facility] Comment on above: Performed By: #### L [id number] ####[facility] LAB [address], [place] [address] Yusuf Villaseñor M.D. [id number] AUTO NRBC ABS COUNT 0.00 K/mcL Normal 0.00-0.00 [facility] Comment on above: Performed By: #### L [id number] #### LAB [address] [address] Yusuf Villaseñor M.D. [id number] BASOPHILS ABSOLUTE COUNT 0.04 K/mcL Normal 0.00-0.30 [facility] Comment on above: Performed By: #### L [id number] #### LAB [address] [address] Yusuf Villaseñor M.D. [id number] Basophils/100 WBC (Bld) 0.4 % Normal [facility] Comment on above: Performed By: #### L [id number] #### LAB [address] [address] Yusuf Villaseñor M.D. [id number] Eosinophils (Bld) [#/Vol] 0.20 10*3/uL Normal 0.00-0.50 [facility] Comment on above: Performed By: #### L [id number] #### LAB [address] [address] Yusuf Villaseñor M.D. [id number] Eosinophils/100 WBC (Bld) 1.8 % Normal [facility] Comment on above: Performed By: #### L [id number] #### LAB [address] [place] [address] Yusuf Villaseñor M.D. [id number] Erythrocyte distribution width (RBC) [Ratio] 14.6 % Normal 11.6-14.8 [facility] Comment on above: Performed By: #### L [id number] #### LAB [address] [address] Yusuf Villaseñor M.D. [id number] Hematocrit (Bld) [Volume fraction] 24.4 % Low 41.0-53.0 [facility] Comment on above: Performed By: #### L [id number] #### LAB [address] [place] [address] Yusuf Villaseñor M.D. [id number] Hemoglobin (Bld) [Mass/Vol] 7.6 g/dL Low 13.5-17.5 [facility] Comment on above: Performed By: #### L [id number] #### LAB [address] [address] Yusuf Villaseñor M.D. [id number] IG ABSOLUTE 0.21 K/mcL Normal 0.00-0.30 [facility] Comment on above: Performed By: #### L [id number] #### LAB [address] [address] Yusuf Villaseñor M.D. [id number] IG PERCENT 1.90 % [facility] Comment on above: Result Comment: The IG parameter is the percentage of metamyelocytes, myelocytes and promyelocytes. An immature granulocyte count (IG) of 1% or more suggests the possibility of infection, an IG count of 3% is very likely related to an infection. Performed By: #### L [id number] #### LAB [address] [address] Yusuf Villaseñor M.D. [id number] Lymphocytes (Bld) [#/Vol] 1.81 10*3/uL Normal 0.90-4.00 [facility] Comment on above: Performed By: #### L [id number] #### LAB [address] [address] Yusuf Villaseñor M.D. [id number] Lymphocytes/100 WBC (Bld) 16.0 % Normal [facility] Comment on above: Performed By: #### L [id number] #### LAB [address] [address] Yusuf Villaseñor M.D. [id number] MCH (RBC) [Entitic mass] 26.0 pg Normal 26.0-34.0 [facility] Comment on above: Performed By: #### L [id number] #### LAB [address] [address] Yusuf Villaseñor M.D. [id number] MCV (RBC) [Entitic vol] 83.6 fL Normal 80.0-100.0 [facility] Comment on above: Performed By: #### L [id number] #### LAB [address] [address] Yusuf Villaseñor M.D. [id number] MEAN CORPUSCULAR HEMOGLOBIN CONC 31.1 g/dL Normal 31.0-37.0 [facility] Comment on above: Performed By: #### L [id number] #### LAB [address] [address] Yusuf Villaseñor M.D. [id number] Monocytes (Bld) [#/Vol] 0.78 10*3/uL Normal 0.30-0.90 [facility] Comment on above: Performed By: #### L [id number] #### LAB [address] [address] Yusuf Villaseñor M.D. [id number] Monocytes/100 WBC (Bld) 6.9 % Normal [facility] Comment on above: Performed By: #### L [id number] #### LAB [address] [address] Yusuf Villaseñor M.D. [id number] NEUTROPHILS ABSOLUTE COUNT 8.26 K/mcL High 1.70-7.00 [facility] Comment on above: Performed By: #### L [id number] #### LAB [address] [address] Yusuf Villaseñor M.D. [id number] Neutrophils/100 WBC (Bld) 73.0 % Normal [facility] Comment on above: Performed By: #### L [id number] #### LAB [address] [address] Yusuf Villaseñor M.D. [id number] Platelet mean volume (Bld) [Entitic vol] 8.5 fL Low 9.4-12.4 [facility] Comment on above: Performed By: #### L [id number] #### LAB [address] [address] Yusuf Villaseñor M.D. [id number] Platelets (Bld) [#/Vol] 325 10*3/uL Normal 150-400 [facility] Comment on above: Performed By: #### L [id number] ####[facility] LAB [address], [place] [address] Yusuf Villaseñor M.D. [id number] RBC (Bld) [#/Vol] 2.92 10*6/uL Low 4.50-5.90 [facility] Comment on above: Performed By: #### L [id number] ####[facility] LAB [address] [address] Yusuf Villaseñor M.D. [id number] WBC (Bld) [#/Vol] 11.30 10*3/uL High 4.50-11.00 [facility] Comment on above: Performed By: #### L [id number] ####[facility] LAB [address] [address] Yusuf Villaseñor M.D. [id number] Disch [place] 02-09-2025 Disch [facility] Glucose (Bld) [Mass/Vol]on 0 02-09-2025 Glucose [Mass/Vol] 183 mg/dL High 65 - 99 mg/[facility] Interpretation and review of laboratory results Abnormal [facility] Glucose [Mass/Vol] 145 mg/dL High 65 - 99 mg/dL [facility] Interpretation and review of laboratory results Abnormal [facility] HEPATIC FUNCTION PANELon Albumin [Mass/Vol] 2.8 g/dL Low 3.2-5.2 [facility] Comment on above: Performed By: #### 4 5866 ####[facility] LAB [address] [id number] Yusuf Villaseñor M.D. [id number] ALP [Catalytic activity/Vol] 93 U/L Normal 40-150 [facility] Comment on above: Performed By: #### 4 5866 ####[facility] LAB [address] [id number] Yusuf Villaseñor M.D. [id number] ALT [Catalytic activity/Vol] 146 U/L High 0-50 U/L [facility] Comment on above: Performed By: #### 4 5866 ####[facility] LAB [address], [place] [address] Yusuf Villaseñor M.D. [id number] AST [Catalytic activity/Vol] 28 U/L Normal 0-50 U/L [facility] Comment on above: Performed By: #### 4 5866 #### LAB [address], [place] [address] Yusuf Villaseñor M.D. [id number] Bilirubin [Mass/Vol] 0.5 mg/dL Normal 0.0-1.3 [facility] Comment on above: Performed By: #### 4 5866 #### LAB [address] [address] Yusuf Villaseñor M.D. [id number] Bilirubin.indirect [Mass/Vol] 0.3 mg/dL Normal 0.0-0.4 [facility] Comment on above: Performed By: #### 4 5866 #### LAB [address] [address] Yusuf Villaseñor M.D. [id number] Protein [Mass/Vol] 6.5 g/dL Normal 6.0-8.0 [facility] Comment on above: Performed By: #### 4 5866 #### LAB [address] [id number] Yusuf Villaseñor M.D. [id number] Hepatic function 2000 panelo n 02-09-2025 Albumin [Mass/Vol] 2.8 g/dL Low 3.2 - 5.2 g/dL [facility] ALP [Catalytic activity/Vol] 93 U/L 40 - 150 U/L [facility] ALT [Catalytic activity/Vol] 146 U/L High 0 - 50 U/L [facility] AST [Catalytic activity/Vol] 28 U/L 0 - 50 U/L [facility] Bilirubin [Mass/Vol] 0.5 mg/dL 0.0 - 1 .3 mg/dL [facility] Bilirubin.conjugated [Mass/Vol] 0.3 mg/dL 0.0 - 0.4 mg/dL [facility] Protein [Mass/Vol] 6.5 g/dL 6.0 - 8.0 g/dL [facility] INR Coag (PPP) [Relative pily e]on 02-09-2025 Interpretation and review of laboratory results Abnormal [facility] PT Coag (PPP) [Time] 21.2 s High [facility] - Microbiology an d Antimicrobial susceptibilityon 02-09-2025 Bacteria identified Cx Nom (Bld) No Growth after 5 days [facility] MAGNESIUM LEVELon 02-09-2025 Magnesium [Mass/Vol] 1.6 mg/dL Normal 1.6-2.4 [facility] Comment on above: Performed By: #### 4 6109 #### LAB [address], [place] [address] Yusuf Villaseñor M.D. [id number] Magnesium Levelon 02-09-2025 Magnesium [Mass/Vol] 1.6 mg/dL 1.6 - 2 .4 mg/dL [facility] Magnesium [Mass/Vol]on 02-09 Interpretation and review of laboratory results Normal [facility] No Panel Informationon 02-09 Interpretation and review of laboratory results Abnormal [facility] POC GLUCOSE - RALSon 025 Glucose [Mass/Vol] 183 mg/dL High 65-99 [facility] Glucose [Mass/Vol] 145 mg/dL High 65-99 [facility] PT/INRon 02-09-2025 INR Coag (PPP) [Relative time] 1.8 {INR} High 0.8 - 1.1 [facility] INR Coag (PPP) [Relative time] 1.8 {INR} High 0.8-1.1 [facility] Comment on above: Order Comment: Annie nicole the induction phase of oral anticoagulation, the INR may not reflect the anticoagulation status of the patient. Therapeutic ranges for INR's are:Most clinical situations: INR 2.0-3.0Mechanical Prosthetic Valve: INR 2.5-3.5Critical: INR >5.0 Performed By: #### 4 6391 #### LAB [address], [place] [address] Yusuf Villaseñor M.D. [id number] PT Coag (PPP) [Time] 21.2 s High 11.8-14.3 [facility] Comment on above: Order Comment: Annie nicole the induction phase of oral anticoagulation, the INR may not reflect the anticoagulation status of the patient. Therapeutic ranges for INR's are:Most clinical situations: INR 2.0-3.0Mechanical Prosthetic Valve: INR 2.5-3.5Critical: INR >5.0 Performed By: #### 4 6391 #### LAB [address] [address] Yusuf Villaseñor M.D. [id number] B12/FOLATEon 02-08-2025 Cobalamin (Vitamin B12) [Mass/Vol] 1076 pg/mL Normal 232-1245 [facility] Comment on above: Performed By: #### 4 6967 #### LAB [address] [address] Yusuf Villaseñor M.D. [id number] FOLATE 12.6 ng/mL Normal 3.1-17.5 [facility] Comment on above: Result Comment: Defi cient <2.2Borderline 2.2 - 3.0Excessive >17.5 Performed By: #### 4 6967 #### LAB [address] [address] Yusuf Villaseñor M.D. [id number] B12/Folateon 02-08-2025 Cobalamin (Vitamin B12) [Mass/Vol] 1076 pg/mL 232 - 1245 pg/mL [facility] Folate [Mass/Vol] 12.6 ng/mL 3.1 - 17.5 ng/mL [facility] Interpretation and review of laboratory results Normal [facility] BASIC METABOLIC PANELon 08-0 Anion gap [Moles/Vol] 12 mmol/L Normal 10-20 [facility] Comment on above: Order Comment: [facility] has implemented the eGFR calculation approach that does not have a coefficient for race that conforms to the NKF-ASN Task Force Recommendations. Performed By: #### 4 6124 #### LAB [address] [address] Yusuf Villaseñor M.D. [id number] Calcium [Mass/Vol] 8.3 mg/dL Low 8.4-10.2 [facility] Comment on above: Order Comment: [facility] has implemented the eGFR calculation approach that does not have a coefficient for race that conforms to the NKF-ASN Task Force Recommendations. Performed By: #### 4 6124 #### LAB [address], [place] [address] Yusuf Villaseñor M.D. [id number] Chloride [Moles/Vol] 99 mmol/L Normal 98-108 [facility] Comment on above: Order Comment: [facility] has implemented the eGFR calculation approach that does not have a coefficient for race that conforms to the NKF-ASN Task Force Recommendations. Performed By: #### 4 6124 ####[facility] [address] [address] Yusuf Villaseñor M.D. [id number] Creatinine [Mass/Vol] 1.13 mg/dL Normal 0.80-1.30 [facility] Comment on above: Order Comment: [facility] has implemented the eGFR calculation approach that does not have a coefficient for race that conforms to the NKF-ASN Task Force Recommendations. Performed By: #### 4 6124 #### LAB [address] [address] Yusuf Villaseñor M.D. [id number] EGFR 66 mL/min/1.73 m2 Normal >=60 [facility] Comment on above: Order Comment: [facility] has implemented the eGFR calculation approach that does not have a coefficient for race that conforms to the NKF-ASN Task Force Recommendations. Result Comment: Aide mated GFR was calculated using the 2020 CKD-EPI creatinine equation. Performed By: #### 4 6124 ####[facility] [address] [address] Yusuf Villaseñor M.D. [id number] Glucose [Mass/Vol] 104 mg/dL High 65-99 [facility] Comment on above: Order Comment: [facility] has implemented the eGFR calculation approach that does not have a coefficient for race that conforms to the NKF-ASN Task Force Recommendations. Performed By: #### 4 6124 #### LAB [address] [id number] Yusuf Villaseñor M.D. [id number] HCO3 (Bld) [Moles/Vol] 26 mmol/L Normal 21-32 [facility] Comment on above: Order Comment: [facility] has implemented the eGFR calculation approach that does not have a coefficient for race that conforms to the NKF-ASN Task Force Recommendations. Performed By: #### 4 6124 #### LAB [address] [id number] Yusuf Villaseñor M.D. [id number] Potassium [Moles/Vol] 4.1 mmol/L Normal 3.5-5.1 [facility] Comment on above: Order Comment: [facility] has implemented the eGFR calculation approach that does not have a coefficient for race that conforms to the NKF-ASN Task Force Recommendations. Performed By: #### 4 6124 #### LAB [address] [address] Yusuf Villaseñor M.D. [id number] Sodium [Moles/Vol] 133 mmol/L Low 135-145 [facility] Comment on above: Order Comment: [facility] has implemented the eGFR calculation approach that does not have a coefficient for race that conforms to the NKF-ASN Task Force Recommendations. Performed By: #### 4 6124 #### LAB [address] [address] Yusuf Villaseñor M.D. [id number] Urea nitrogen [Mass/Vol] 9 mg/dL Normal 8-25 [facility] Comment on above: Order Comment: [facility] has implemented the eGFR calculation approach that does not have a coefficient for race that conforms to the NKF-ASN Task Force Recommendations. Performed By: #### 4 6124 ####[facility] [address] [address] Yusuf Villaseñor M.D. [id number] Urea nitrogen/Creatinine [Mass ratio] 8.0 mg/mg Low 10.0-20.0 [facility] Comment on above: Order Comment: [facility] has implemented the eGFR calculation approach that does not have a coefficient for race that conforms to the NKF-ASN Task Force Recommendations. Performed By: #### 4 6124 ####[facility] [address] [place], [place] [address] Yusuf Villaseñor M.D. [id number] Basic metabolic 2000 panelon 02-08-2025 Anion gap [Moles/Vol] 12 mmol/L 10 - 2 0 mmol/L [facility] Calcium [Mass/Vol] 8.3 mg/dL Low 8.4 - 10. 2 mg/[facility] Chloride [Moles/Vol] 99 mmol/L 98 - 10 8 mmol/[facility] Creatinine [Mass/Vol] 1.13 mg/dL 0.80 - 1.30 mg/dL [facility] GFR/1.73 sq M.predicted CKD-EPI (S/P/Bld) [Vol rate/Area] 66 - PINF [facility] Glucose [Mass/Vol] 104 mg/dL High 65 - 99 mg/dL [facility] HCO3 [Moles/Vol] 26 mmol/L 21 - 32 mmol/L [facility] Potassium [Moles/Vol] 4.1 mmol/L 3.5 - 5.1 mmol/L [facility] Sodium [Moles/Vol] 133 mmol/L Low 135 - 145 mmol/L [facility] Urea nitrogen [Mass/Vol] 9 mg/dL 8 - 25 mg/dL [facility] Urea nitrogen/Creatinine [Mass ratio] 8 mg/mg Low 10.0 - 20.0 [facility] CBC Auto Differentialon Basophils (Bld) [#/Vol] 0.05 10*3/uL [facility] Basophils/100 WBC (Bld) 0.4 % [facility] Eosinophils (Bld) [#/Vol] 0.28 10*3/uL [facility] Eosinophils/100 WBC (Bld) 2.3 % [facility] Erythrocyte distribution width (RBC) [Entitic vol] 14.7 % 11.6 - 14.8 % [facility] Hematocrit (Bld) [Volume fraction] 23.9 % Low 41.0 - 53.0 % [facility] Hemoglobin (Bld) [Mass/Vol] 7.4 g/dL Low 13.5 - 17.5 g/dL [facility] Immature granulocytes (Bld) [#/Vol] 0.3 10*3/uL [facility] Immature granulocytes/100 WBC (Bld) 2.4 % [facility] Interpretation and review of laboratory results Abnormal [facility] Lymphocytes (Bld) [#/Vol] 2.06 10*3/uL [facility] Lymphocytes/100 WBC (Bld) 16.7 % [facility] MCH (RBC) [Entitic mass] 26.1 pg 26.0 - 34.0 pg [facility] MCHC (RBC) [Mass/Vol] 31 g/dL 31.0 - 37.0 g/dL [facility] MCV (RBC) [Entitic vol] 84.2 fL 80.0 - 100.0 fL [facility] Monocytes (Bld) [#/Vol] 0.88 10*3/uL [facility] Monocytes/100 WBC (Bld) 7.1 % [facility] Neutrophils (Bld) [#/Vol] 8.78 10*3/uL High [facility] Neutrophils/100 WBC (Bld) 71.1 % [facility] Nucleated RBC (Bld) [#/Vol] 0 10*3/uL [facility] Nucleated RBC/100 WBC (Bld) [Ratio] 0 % [facility] Platelet mean volume (Bld) [Entitic vol] 8.4 fL Low 9.4 - 12.4 fL [facility] Platelets (Bld) [#/Vol] 295 10*3/uL [facility] RBC (Bld) [#/Vol] 2.84 10*6/uL Low [facility] ealt WBC (Bld) [#/Vol] 12.35 10*3/uL High [facility] CBC WITH AUTO DIFFERENTIALon 02-08-2025 AUTO NRBC 0.0 % Normal [facility] Comment on above: Performed By: #### L [id number] ####[facility] [address] [place], [place] [address] Yusuf Villaseñor M.D. [id number] AUTO NRBC ABS COUNT 0.00 K/mcL Normal 0.00-0.00 [facility] Comment on above: Performed By: #### L [id number] ####[facility] [address] [place], [place] [address] Yusuf Villaseñor M.D. [id number] BASOPHILS ABSOLUTE COUNT 0.05 K/mcL Normal 0.00-0.30 [facility] Comment on above: Performed By: #### L [id number] #### LAB [address] [address] Yusuf Villaseñor M.D. [id number] Basophils/100 WBC (Bld) 0.4 % Normal [facility] Comment on above: Performed By: #### L [id number] #### LAB [address] [address] Yusuf Villaseñor M.D. [id number] Eosinophils (Bld) [#/Vol] 0.28 10*3/uL Normal 0.00-0.50 [facility] Comment on above: Performed By: #### L [id number] #### LAB [address] [address] Yusuf Villaseñor M.D. [id number] Eosinophils/100 WBC (Bld) 2.3 % Normal [facility] Comment on above: Performed By: #### L [id number] #### LAB [address] [place] [address] Yusuf Villaseñor M.D. [id number] Erythrocyte distribution width (RBC) [Ratio] 14.7 % Normal 11.6-14.8 [facility] Comment on above: Performed By: #### L [id number] #### LAB [address] [place] [address] Yusuf Villaseñor M.D. [id number] Hematocrit (Bld) [Volume fraction] 23.9 % Low 41.0-53.0 [facility] Comment on above: Performed By: #### L [id number] #### LAB [address] [place] [address] Yusuf Villaseñor M.D. [id number] Hemoglobin (Bld) [Mass/Vol] 7.4 g/dL Low 13.5-17.5 [facility] Comment on above: Performed By: #### L [id number] #### LAB [address] [place] [address] Yusuf Villaseñor M.D. [id number] IG ABSOLUTE 0.30 K/mcL Normal 0.00-0.30 [facility] Comment on above: Performed By: #### L [id number] #### LAB [address] [place] [address] Yusuf Villaseñor M.D. [id number] IG PERCENT 2.40 % Normal [facility] Comment on above: Result Comment: The IG parameter is the percentage of metamyelocytes, myelocytes and promyelocytes. An immature granulocyte count (IG) of 1% or more suggests the possibility of infection, an IG count of 3% is very likely related to an infection. Performed By: #### L [id number] #### LAB [address] [address] Yusuf Villaseñor M.D. [id number] Lymphocytes (Bld) [#/Vol] 2.06 10*3/uL Normal 0.90-4.00 [facility] Comment on above: Performed By: #### L [id number] #### LAB [address] [place] [address] Yusuf Villaseñor M.D. [id number] Lymphocytes/100 WBC (Bld) 16.7 % Normal [facility] Comment on above: Performed By: #### L [id number] #### LAB [address] [place] [address] Yusuf Villaseñor M.D. [id number] MCH (RBC) [Entitic mass] 26.1 pg Normal 26.0-34.0 [facility] Comment on above: Performed By: #### L [id number] #### LAB [address] [address] Yusuf Villaseñor M.D. [id number] MCV (RBC) [Entitic vol] 84.2 fL Normal 80.0-100.0 [facility] Comment on above: Performed By: #### L [id number] #### LAB [address] [place] [address] Yusuf Villaseñor M.D. [id number] MEAN CORPUSCULAR HEMOGLOBIN CONC 31.0 g/dL Normal 31.0-37.0 [facility] Comment on above: Performed By: #### L [id number] #### LAB [address] [place], [place] [id number] Yusuf Villaseñor M.D. [id number] Monocytes (Bld) [#/Vol] 0.88 10*3/uL Normal 0.30-0.90 [facility] Comment on above: Performed By: #### L [id number] #### LAB [address] [address] Yusuf Villaseñor M.D. [id number] Monocytes/100 WBC (Bld) 7.1 % Normal [facility] Comment on above: Performed By: #### L [id number] #### LAB [address] [address] Yusuf Villaseñor M.D. [id number] NEUTROPHILS ABSOLUTE COUNT 8.78 K/mcL High 1.70-7.00 [facility] Comment on above: Performed By: #### L [id number] #### LAB [address] [address] Yusuf Villaseñor M.D. [id number] Neutrophils/100 WBC (Bld) 71.1 % Normal [facility] Comment on above: Performed By: #### L [id number] #### LAB [address] [address] Yusuf Villaseñor M.D. [id number] Platelet mean volume (Bld) [Entitic vol] 8.4 fL Low 9.4-12.4 [facility] Comment on above: Performed By: #### L [id number] #### LAB [address] [address] Yusuf Villaseñor M.D. [id number] Platelets (Bld) [#/Vol] 295 10*3/uL Normal 150-400 [facility] Comment on above: Performed By: #### L [id number] #### LAB [address] [address] Yusuf Villaseñor M.D. [id number] RBC (Bld) [#/Vol] 2.84 10*6/uL Low 4.50-5.90 [facility] Comment on above: Performed By: #### L [id number] ####[facility] LAB [address] [place], [place] [address] Yusuf Villaseñor M.D. [id number] WBC (Bld) [#/Vol] 12.35 10*3/uL High 4.50-11.00 [facility] Comment on above: Performed By: #### L [id number] #### LAB [address] [place], [place] [address] Yusuf Villaseñor M.D. [id number] Glucose (Bld) [Mass/Vol]on 0 02-08-2025 Glucose [Mass/Vol] 182 mg/dL High 65 - 99 mg/dL [facility] Interpretation and review of laboratory results Abnormal [facility] Glucose [Mass/Vol] 215 mg/dL High 65 - 99 mg/dL [facility] Interpretation and review of laboratory results Abnormal [facility] Glucose [Mass/Vol] 151 mg/dL High 65 - 99 mg/dL [facility] Interpretation and review of laboratory results Abnormal [facility] Glucose [Mass/Vol] 119 mg/dL High 65 - 99 mg/dL [facility] Interpretation and review of laboratory results Abnormal [facility] HEPATIC FUNCTION PANELon Albumin [Mass/Vol] 2.8 g/dL Low 3.2-5.2 [facility] Comment on above: Performed By: #### 4 5866 ####[facility] LAB [address] [place], [place] [address] Yusuf Villaseñor M.D. [id number] ALP [Catalytic activity/Vol] 90 U/L Normal 40-150 [facility] Comment on above: Performed By: #### 4 5866 ####[facility] LAB [address] [place], [place] [address] Yusuf Villaseñor M.D. [id number] ALT [Catalytic activity/Vol] 181 U/L High 0-50 U/L [facility] Comment on above: Performed By: #### 4 5866 ####[facility] LAB [address] [place], [place] [address] Yusuf Villaseñor M.D. [id number] AST [Catalytic activity/Vol] 34 U/L Normal 0-50 U/L [facility] Comment on above: Performed By: #### 4 5866 #### LAB [address], [place] [address] Yusuf Villaseñor M.D. [id number] Bilirubin [Mass/Vol] 0.6 mg/dL Normal 0.0-1.3 [facility] Comment on above: Performed By: #### 4 5866 #### LAB [address] [address] Yusuf Villaseñor M.D. [id number] Bilirubin.indirect [Mass/Vol] 0.3 mg/dL Normal 0.0-0.4 [facility] Comment on above: Performed By: #### 4 [id number] #### LAB [address] [address] Yusuf Villaseñor M.D. [id number] Protein [Mass/Vol] 6.2 g/dL Normal 6.0-8.0 [facility] Comment on above: Performed By: #### 4 [id number] #### LAB [address] [address] Yusuf Villaseñor M.D. [id number] Hepatic function 2000 panelo n 02-08-2025 Albumin [Mass/Vol] 2.8 g/dL Low 3.2 - 5.2 g/dL [facility] ALP [Catalytic activity/Vol] 90 U/L 40 - 150 U/L [facility] ALT [Catalytic activity/Vol] 181 U/L High 0 - 50 U/L [facility] AST [Catalytic activity/Vol] 34 U/L 0 - 50 U/L [facility] Bilirubin [Mass/Vol] 0.6 mg/dL 0.0 - 1 .3 mg/dL [facility] Bilirubin.conjugated [Mass/Vol] 0.3 mg/dL 0.0 - 0.4 mg/dL [facility] Protein [Mass/Vol] 6.2 g/dL 6.0 - 8.0 g/dL [facility] INR Coag (PPP) [Relative pily e]on 02-08-2025 Interpretation and review of laboratory results Abnormal [facility] PT Coag (PPP) [Time] 20.5 s High [facility] IRON STUDY WITH FERRITINon 0 02-08-2025 Ferritin [Mass/Vol] 154 ng/mL Normal 30-400 [facility] Comment on above: Performed By: #### 4 [id number] #### LAB [address] [address] Yusuf Villaseñor M.D. [id number] Iron [Mass/Vol] 21 ug/dL Low 40-165 [facility] Comment on above: Performed By: #### 4 7645 #### LAB [address] [address] Yusuf Villaseñor M.D. [id number] IRON SATURATION 9 % Low 20-50 [facility] Comment on above: Performed By: #### 4 7645 #### LAB [address] [address] Yusuf Villaseñor M.D. [id number] TIBC (CALCULATED) 236 mcg/dL Normal 225-430 [facility] Comment on above: Performed By: #### 4 7645 #### LAB [address] [address] Yusuf Villaseñor M.D. [id number] Iron Study with Ferritinon 0 02-08-2025 Ferritin [Mass/Vol] 154 ng/mL 30 - 400 ng/mL [facility] Interpretation and review of laboratory results Abnormal [facility] Iron [Mass/Vol] 21 ug/dL Low [facility] h Iron binding capacity [Mass/Vol] 236 [facility] Iron saturation [Mass fraction] 9 % Low 20 - 50 % [facility] MAGNESIUM LEVELon 02-08-2025 Magnesium [Mass/Vol] 1.7 mg/dL Normal 1.6-2.4 [facility] Comment on above: Performed By: #### 4 6109 #### LAB [address] [address] Yusuf Villaseñor M.D. [id number] Magnesium Levelon 02-08-2025 Magnesium [Mass/Vol] 1.7 mg/dL 1.6 - 2 .4 mg/dL [facility] Magnesium [Mass/Vol]on 02-08 Interpretation and review of laboratory results Normal [facility] No Panel Informationon 02-08 Interpretation and review of laboratory results Abnormal [facility] POC GLUCOSE - Kiah 025 Glucose [Mass/Vol] 182 mg/dL High 65- [facility] Glucose [Mass/Vol] 215 mg/dL High 65- [facility] Glucose [Mass/Vol] 151 mg/dL High 65- [facility] Glucose [Mass/Vol] 119 mg/dL High 65- [facility] PT/INRon 02-08-2025 INR Coag (PPP) [Relative time] 1.7 {INR} High 0.8 - 1.1 [facility] INR Coag (PPP) [Relative time] 1.7 {INR} High 0.8-1.1 [facility] Comment on above: Order Comment: Annie nicole the induction phase of oral anticoagulation, the INR may not reflect the anticoagulation status of the patient. Therapeutic ranges for INR's are:Most clinical situations: INR 2.0-3.0Mechanical Prosthetic Valve: INR 2.5-3.5Critical: INR >5.0 Performed By: #### 4 6391 #### LAB [address], [place] [address] Yusuf Villaseñor M.D. [id number] PT Coag (PPP) [Time] 20.5 s High 11.8-14.3 [facility] Comment on above: Order Comment: Annie nicole the induction phase of oral anticoagulation, the INR may not reflect the anticoagulation status of the patient. Therapeutic ranges for INR's are:Most clinical situations: INR 2.0-3.0Mechanical Prosthetic Valve: INR 2.5-3.5Critical: INR >5.0 Performed By: #### 4 6391 #### LAB [address] [place], [place] [address] Yusuf Vilalseñor M.D. [id number] BASIC METABOLIC PANELon 01-10 Anion gap [Moles/Vol] 14 mmol/L Normal 10-20 [facility] Comment on above: Order Comment: [facility] has implemented the eGFR calculation approach that does not have a coefficient for race that conforms to the NKF-ASN Task Force Recommendations. Performed By: #### 4 6124 ####[facility] LAB [address] [place], [place] [address] Yusuf Villaseñor M.D. [id number] Calcium [Mass/Vol] 8.5 mg/dL Normal 8.4-10.2 [facility] Comment on above: Order Comment: [facility] has implemented the eGFR calculation approach that does not have a coefficient for race that conforms to the NKF-ASN Task Force Recommendations. Performed By: #### 4 6124 #### LAB [address] [address] Yusuf Villaseñor M.D. [id number] Chloride [Moles/Vol] 98 mmol/L Normal 98-108 [facility] Comment on above: Order Comment: [facility] has implemented the eGFR calculation approach that does not have a coefficient for race that conforms to the NKF-ASN Task Force Recommendations. Performed By: #### 4 6124 #### LAB [address] [address] Yusuf Villaseñor M.D. [id number] Creatinine [Mass/Vol] 1.17 mg/dL Normal 0.80-1.30 [facility] Comment on above: Order Comment: [facility] has implemented the eGFR calculation approach that does not have a coefficient for race that conforms to the NKF-ASN Task Force Recommendations. Performed By: #### 4 6124 #### LAB [address] [address] Yusuf Villaseñor M.D. [id number] EGFR 63 mL/min/1.73 m2 Normal >=60 [facility] Comment on above: Order Comment: [facility] has implemented the eGFR calculation approach that does not have a coefficient for race that conforms to the NKF-ASN Task Force Recommendations. Result Comment: Aide mated GFR was calculated using the 2020 CKD-EPI creatinine equation. Performed By: #### 4 6124 #### LAB [address] [address] Yusuf Villaseñor M.D. [id number] Glucose [Mass/Vol] 56 mg/dL Low 65-99 [facility] Comment on above: Order Comment: [facility] has implemented the eGFR calculation approach that does not have a coefficient for race that conforms to the NKF-ASN Task Force Recommendations. Performed By: #### 4 6124 #### LAB [address] [address] Yuusf Villaseñor M.D. [id number] HCO3 (Bld) [Moles/Vol] 26 mmol/L Normal 21-32 [facility] Comment on above: Order Comment: [facility] has implemented the eGFR calculation approach that does not have a coefficient for race that conforms to the NKF-ASN Task Force Recommendations. Performed By: #### 4 6124 #### LAB [address] [address] Yusuf Villaseñor M.D. [id number] Potassium [Moles/Vol] 4.1 mmol/L Normal 3.5-5.1 [facility] Comment on above: Order Comment: [facility] has implemented the eGFR calculation approach that does not have a coefficient for race that conforms to the NKF-ASN Task Force Recommendations. Performed By: #### 4 6124 #### LAB [address] [address] Yusuf Villaseñor M.D. [id number] Sodium [Moles/Vol] 134 mmol/L Low 135-145 [facility] Comment on above: Order Comment: [facility] has implemented the eGFR calculation approach that does not have a coefficient for race that conforms to the NKF-ASN Task Force Recommendations. Performed By: #### 4 6124 #### LAB [address] [address] Yusuf Villaseñor M.D. [id number] Urea nitrogen [Mass/Vol] 13 mg/dL Normal 8-25 [facility] Comment on above: Order Comment: [facility] has implemented the eGFR calculation approach that does not have a coefficient for race that conforms to the NKF-ASN Task Force Recommendations. Performed By: #### 4 6125 #### LAB [address] [address] Yusuf Villaseñor M.D. [id number] Urea nitrogen/Creatinine [Mass ratio] 11.1 mg/mg Normal 10.0-20.0 [facility] Comment on above: Order Comment: [facility] has implemented the eGFR calculation approach that does not have a coefficient for race that conforms to the NKF-ASN Task Force Recommendations. Performed By: #### 4 6124 #### LAB [address] [address] Yusuf Villaseñor M.D. [id number] Basic metabolic 2000 panelon 02-07-2025 Anion gap [Moles/Vol] 14 mmol/L 10 - 2 0 mmol/L [facility] Calcium [Mass/Vol] 8.5 mg/dL 8.4 - 10. 2 mg/dL [facility] Chloride [Moles/Vol] 98 mmol/L 98 - 10 8 mmol/L [facility] Creatinine [Mass/Vol] 1.17 mg/dL 0.80 - 1.30 mg/dL [facility] GFR/1.73 sq M.predicted CKD-EPI (S/P/Bld) [Vol rate/Area] 63 - PINF [facility] Glucose [Mass/Vol] 56 mg/dL Low 65 - 99 mg/dL [facility] HCO3 [Moles/Vol] 26 mmol/L 21 - 32 mmol/L [facility] Potassium [Moles/Vol] 4.1 mmol/L 3.5 - 5.1 mmol/L [facility] Sodium [Moles/Vol] 134 mmol/L Low 135 - 145 mmol/L [facility] Urea nitrogen [Mass/Vol] 13 mg/dL 8 - 25 mg/dL [facility] Urea nitrogen/Creatinine [Mass ratio] 11.1 mg/mg 10.0 - 20.0 [facility] CBCon 02-07-2025 AUTO NRBC 0.0 % Normal [facility] Comment on above: Order Comment: While on heparin Performed By: #### 4 [id number] #### LAB [address] [place], [place] [address] Yusuf Villaseñor M.D. [id number] AUTO NRBC ABS COUNT 0.00 K/mcL Normal 0.00-0.00 [facility] Comment on above: Order Comment: While on heparin Performed By: #### 4 [id number] #### LAB [address] [address] Yusuf Villaseñor M.D. [id number] Erythrocyte distribution width (RBC) [Ratio] 14.8 % Normal 11.6-14.8 [facility] Comment on above: Order Comment: While on heparin Performed By: #### 4 [id number] #### LAB [address] [address] Yusuf Villaseñor M.D. [id number] Hematocrit (Bld) [Volume fraction] 24.7 % Low 41.0-53.0 [facility] Comment on above: Order Comment: While on heparin Performed By: #### 4 [id number] #### LAB [address] [address] Yusuf Villaseñor M.D. [id number] Hemoglobin (Bld) [Mass/Vol] 7.7 g/dL Low 13.5-17.5 [facility] Comment on above: Order Comment: While on heparin Performed By: #### 4 [id number] #### LAB [address] [address] Yusuf Villaseñor M.D. [id number] MCH (RBC) [Entitic mass] 26.2 pg Normal 26.0-34.0 [facility] Comment on above: Order Comment: While on heparin Performed By: #### 4 [id number] #### LAB [address] [address] Yusuf Villaseñor M.D. [id number] MCV (RBC) [Entitic vol] 84.0 fL Normal 80.0-100.0 [facility] Comment on above: Order Comment: While on heparin Performed By: #### 4 [id number] #### LAB [address] [address] Yusuf Villaseñor M.D. [id number] MEAN CORPUSCULAR HEMOGLOBIN CONC 31.2 g/dL Normal 31.0-37.0 [facility] Comment on above: Order Comment: While on heparin Performed By: #### 4 [id number] #### LAB [address] [address] Yusuf Villaseñor M.D. [id number] Platelet mean volume (Bld) [Entitic vol] 8.2 fL Low 9.4-12.4 [facility] Comment on above: Order Comment: While on heparin Performed By: #### 4 [id number] #### LAB [address] [place] [id number] Yusuf Villaseñor M.D. [id number] Platelets (Bld) [#/Vol] 280 10*3/uL Normal 150-400 [facility] Comment on above: Order Comment: While on heparin Performed By: #### 4 [id number] #### LAB [address] [address] Yusuf Villaseñor M.D. [id number] RBC (Bld) [#/Vol] 2.94 10*6/uL Low 4.50-5.90 [facility] Comment on above: Order Comment: While on heparin Performed By: #### 4 [id number] #### LAB [address] [address] Yusuf Villaseñor M.D. [id number] WBC (Bld) [#/Vol] 12.99 10*3/uL High 4.50-11.00 [facility] Comment on above: Order Comment: While on heparin Performed By: #### 4 [id number] #### LAB [address] [place], [place] [address] Yusuf Villaseñor M.D. [id number] CBC Auto Differentialon 01-10 Erythrocyte distribution width (RBC) [Entitic vol] 14.6 % 11.6 - 14.8 % [facility] Hematocrit (Bld) [Volume fraction] 24.3 % Low 41.0 - 53.0 % [facility] Hemoglobin (Bld) [Mass/Vol] 7.6 g/dL Low 13.5 - 17.5 g/dL [facility] MCH (RBC) [Entitic mass] 26.6 pg 26.0 - 34.0 pg [facility] MCHC (RBC) [Mass/Vol] 31.3 g/dL 31.0 - 37.0 g/dL [facility] MCV (RBC) [Entitic vol] 85 fL 80.0 - 100.0 fL [facility] Nucleated RBC (Bld) [#/Vol] 0.02 10*3/uL High [facility] Nucleated RBC/100 WBC (Bld) [Ratio] 0.1 % [facility] Platelet mean volume (Bld) [Entitic vol] 8.4 fL Low 9.4 - 12.4 fL [facility] Platelets (Bld) [#/Vol] 303 10*3/uL [facility] RBC (Bld) [#/Vol] 2.86 10*6/uL Low [facility] ealt WBC (Bld) [#/Vol] 14.58 10*3/uL [facility] CBC WITH AUTO DIFFERENTIALon 02-07-2025 AUTO NRBC 0.1 % Normal [facility] Comment on above: Performed By: #### L [id number] #### LAB [address] [place] [address] Yusuf Villaseñor M.D. [id number] AUTO NRBC ABS COUNT 0.02 K/mcL High 0.00-0.00 [facility] Comment on above: Performed By: #### L [id number] #### LAB [address] [address] Yusuf Villaseñor M.D. [id number] Erythrocyte distribution width (RBC) [Ratio] 14.6 % Normal 11.6-14.8 [facility] Comment on above: Performed By: #### L [id number] #### LAB [address] [address] Yusuf Villaseñor M.D. [id number] Hematocrit (Bld) [Volume fraction] 24.3 % Low 41.0-53.0 [facility] Comment on above: Performed By: #### L [id number] #### LAB [address] [address] Yusuf Villaseñor M.D. [id number] Hemoglobin (Bld) [Mass/Vol] 7.6 g/dL Low 13.5-17.5 [facility] Comment on above: Performed By: #### L [id number] #### LAB [address] [place] [address] Yusuf Villaseñor M.D. [id number] MCH (RBC) [Entitic mass] 26.6 pg Normal 26.0-34.0 [facility] Comment on above: Performed By: #### L [id number] #### LAB [address] [address] Yusuf Villaseñor M.D. [id number] MCV (RBC) [Entitic vol] 85.0 fL Normal 80.0-100.0 [facility] Comment on above: Performed By: #### L [id number] ####[facility] LAB [address] [address] Yusuf Villaseñor M.D. [id number] MEAN CORPUSCULAR HEMOGLOBIN CONC 31.3 g/dL Normal 31.0-37.0 [facility] Comment on above: Performed By: #### L [id number] #### LAB [address] [place] [address] Yusuf Villaseñor M.D. [id number] Platelet mean volume (Bld) [Entitic vol] 8.4 fL Low 9.4-12.4 [facility] Comment on above: Performed By: #### L [id number] #### LAB [address] [place] [address] Yusuf Villaseñor M.D. [id number] Platelets (Bld) [#/Vol] 303 10*3/uL Normal 150-400 [facility] Comment on above: Performed By: #### L [id number] #### LAB [address] [place] [address] Yusuf Villaseñor M.D. [id number] RBC (Bld) [#/Vol] 2.86 10*6/uL Low 4.50-5.90 [facility] Comment on above: Performed By: #### L [id number] ####[facility] LAB [address] [place] [address] Yusuf Villaseñor M.D. [id number] WBC (Bld) [#/Vol] 14.58 10*3/uL High 4.50-11.00 [facility] Comment on above: Performed By: #### L [id number] ####[facility] LAB [address] [place], [place] [address] Yusuf Villaseñor M.D. [id number] CBC and Diff Morphologyon Ovalocytes LM Ql (Bld) Few [facility] Platelets LM Ql (Bld) Normal Normal [facility] Polychromasia LM Ql (Bld) Few [facility] RBC morphology finding Nom (Bld) See Comment [facility] CBC panel Auto (Bld)on 02-07 Erythrocyte distribution width (RBC) [Entitic vol] 14.8 % 11.6 - 14.8 % [facility] Hematocrit (Bld) [Volume fraction] 24.7 % Low 41.0 - 53.0 % [facility] Hemoglobin (Bld) [Mass/Vol] 7.7 g/dL Low 13.5 - 17.5 g/dL [facility] Interpretation and review of laboratory results Abnormal [facility] MCH (RBC) [Entitic mass] 26.2 pg 26.0 - 34.0 pg [facility] MCHC (RBC) [Mass/Vol] 31.2 g/dL 31.0 - 37.0 g/dL [facility] MCV (RBC) [Entitic vol] 84 fL 80.0 - 100.0 fL [facility] Nucleated RBC (Bld) [#/Vol] 0 10*3/uL [facility] Nucleated RBC/100 WBC (Bld) [Ratio] 0 % [facility] Platelet mean volume (Bld) [Entitic vol] 8.2 fL Low 9.4 - 12.4 fL [facility] Platelets (Bld) [#/Vol] 280 10*3/uL [facility] RBC (Bld) [#/Vol] 2.94 10*6/uL Low [facility] W[facility] (Bld) [#/Vol] 12.99 10*3/uL High [facility] Glucose (Bld) [Mass/Vol]on 0 02-07-2025 Glucose [Mass/Vol] 161 mg/dL High 65 - 99 mg/dL [facility] Interpretation and review of laboratory results Abnormal [facility] Glucose [Mass/Vol] 129 mg/dL High 65 - 99 mg/dL [facility] Interpretation and review of laboratory results Abnormal [facility] Glucose [Mass/Vol] 133 mg/dL High 65 - 99 mg/dL [facility] Interpretation and review of laboratory results Abnormal [facility] Glucose [Mass/Vol] 122 mg/dL High 65 - 99 mg/dL [facility] Interpretation and review of laboratory results Abnormal [facility] Glucose [Mass/Vol] 55 mg/dL Critically low 65 - 99 mg/dL [facility] Interpretation and review of laboratory results Abnormal [facility] HEPATIC FUNCTION PANELon Albumin [Mass/Vol] 2.8 g/dL Low 3.2-5.2 [facility] Comment on above: Performed By: #### 4 [id number] #### LAB [address] [place] [address] Yusuf Villaseñor M.D. [id number] ALP [Catalytic activity/Vol] 95 U/L Normal 40-150 [facility] Comment on above: Performed By: #### 4 5866 #### LAB [address] [place] [address] Yusuf Villaseñor M.D. [id number] ALT [Catalytic activity/Vol] 241 U/L High 0-50 U/L [facility] Comment on above: Performed By: #### 4 [id number] #### LAB [address] [place] [address] Yusuf Villaseñor M.D. [id number] AST [Catalytic activity/Vol] 37 U/L Normal 0-50 U/L [facility] [facility] Comment on above: Performed By: #### 4 [id number] #### LAB [address] [address] Yusuf Villaseñor M.D. [id number] Bilirubin [Mass/Vol] 0.5 mg/dL Normal 0.0-1.3 [facility] Comment on above: Performed By: #### 4 5866 #### LAB [address] [address] Yusuf Villaseñor M.D. [id number] Bilirubin.indirect [Mass/Vol] 0.3 mg/dL Normal 0.0-0.4 [facility] Comment on above: Performed By: #### 4 5866 #### LAB [address] [address] Yusuf Villaseñor M.D. [id number] Protein [Mass/Vol] 6.4 g/dL Normal 6.0-8.0 [facility] Comment on above: Performed By: #### 4 [id number] #### LAB [address] [place], [place] [address] Yusuf Villaseñor M.D. [id number] Hepatic function 2000 panelo n 02-07-2025 Albumin [Mass/Vol] 2.8 g/dL Low 3.2 - 5.2 g/dL [facility] ALP [Catalytic activity/Vol] 95 U/L 40 - 150 U/L [facility] ALT [Catalytic activity/Vol] 241 U/L High 0 - 50 U/L [facility] AST [Catalytic activity/Vol] 37 U/L 0 - 50 U/L [facility] Bilirubin [Mass/Vol] 0.5 mg/dL 0.0 - 1 .3 mg/dL [facility] Bilirubin.conjugated [Mass/Vol] 0.3 mg/dL 0.0 - 0.4 mg/dL [facility] Protein [Mass/Vol] 6.4 g/dL 6.0 - 8.0 g/dL [facility] INR Coag (PPP) [Relative pily e]on 02-07-2025 Interpretation and review of laboratory results Abnormal [facility] PT Coag (PPP) [Time] 17.7 s High [facility] MAGNESIUM LEVELon 02-07-2025 Magnesium [Mass/Vol] 1.9 mg/dL Normal 1.6-2.4 [facility] Comment on above: Performed By: #### 4 6109 ####[facility] LAB [address] [id number] Yusuf Villaseñor M.D. [id number] MANUAL DIFFERENTIALon 2024 BASOPHILS - ABS (DIFF) 0.00 K/mcL Normal 0.00-0.30 [facility] Comment on above: Performed By: #### 4 5456 ####[facility] LAB [address] [id number] Yusuf Villaseñor M.D. [id number] BASOPHILS - REL (DIFF) 0.0 % Normal [facility] Comment on above: Performed By: #### 4 [id number] #### LAB [address] [address] Yusuf Villaseñor M.D. [id number] EOSINOPHILS - ABS (DIFF) 0.00 K/mcL Normal 0.00-0.50 [facility] Comment on above: Performed By: #### 4 [id number] #### LAB [address] [address] Yusuf Villaseñor M.D. [id number] EOSINOPHILS - REL (DIFF) 0.0 % [facility] Comment on above: Performed By: #### 4 [id number] #### LAB [address] [address] Yusuf Villaseñor M.D. [id number] LYMPHOCYTES - ABS (DIFF) 2.19 K/mcL Normal 0.90-4.00 [facility] Comment on above: Performed By: #### 4 5456 #### LAB [address] [place] [address] Yusuf Villaseñor M.D. [id number] LYMPHOCYTES - REL (DIFF) 15.0 % [facility] Comment on above: Performed By: #### 4 5456 #### LAB [address] [place] [address] Yusuf Villaseñor M.D. [id number] METAMYELOCYTES-REL (DIFF) 1.0 % [facility] Comment on above: Performed By: #### 4 5456 #### LAB [address] [place] [address] Yusuf Villaseñor M.D. [id number] MONOCYTES - ABS (DIFF) 0.73 K/mcL Normal 0.30-0.90 [facility] Comment on above: Performed By: #### 4 [id number] #### LAB [address] [address] Yusuf Villaseñor M.D. [id number] MONOCYTES - REL (DIFF) 5.0 % Normal [facility] Comment on above: Performed By: #### 4 1467 #### LAB [address] [address] Yusuf Villaseñor M.D. [id number] MYELOCYTES RELATIVE PERCENT 4.0 % Normal [facility] Comment on above: Performed By: #### 4 5456 ####[facility] LAB [address] [address] Yusuf Villaseñor M.D. [id number] NEUTROPHILS - ABS (DIFF) 11.66 K/mcL High 1.70-7.00 [facility] Comment on above: Performed By: #### 4 [id number] ####[facility] LAB [address] [address] Yusuf Villaseñor M.D. [id number] NEUTROPHILS - REL (DIFF) 75.0 % Normal [facility] Comment on above: Performed By: #### 4 [id number] ####[facility] LAB [address] [address] Yusuf Villaseñor M.D. [id number] MORPHOLOGYon 02-07-2025 OVAL SCAN Few Normal [facility] Comment on above: Performed By: #### L [id number] ####[facility] LAB [address] [address] Yusuf Villaseñor M.D. [id number] PLATELET ESTIMATE Normal Normal Normal [facility] Comment on above: Performed By: #### L [id number] ####[facility] LAB [address] [address] Yusuf Villaseñor M.D. [id number] POLY SCAN Few Normal [facility] Comment on above: Performed By: #### L [id number] ####[facility] LAB [address] [address] Yusuf Villaseñor M.D. [id number] RBC MORPH SCAN See Comment Normal [facility] Comment on above: Result Comment: RBC Indices confirmed with manual peripheral smear review. Performed By: #### L [id number] ####[facility] LAB [address] [address] Yusuf Villaseñor M.D. [id number] Magnesium Levelon 02-07-2025 Magnesium [Mass/Vol] 1.9 mg/dL 1.6 - 2 .4 mg/dL [facility] Magnesium [Mass/Vol]on 02-07 Interpretation and review of laboratory results Normal [facility] Manual Differential panel (B ld)on 02-07-2025 Basophils (Bld) [#/Vol] 0 10*3/uL [facility] Basophils/100 WBC (Bld) 0 % [facility] Eosinophils (Bld) [#/Vol] 0 10*3/uL [facility] Eosinophils/100 WBC (Bld) 0 % [facility] Lymphocytes (Bld) [#/Vol] 2.19 10*3/uL [facility] Lymphocytes/100 WBC (Bld) 15 % [facility] Metamyelocytes/100 WBC (Bld) 1 % [facility] Monocytes (Bld) [#/Vol] 0.73 10*3/uL [facility] Monocytes/100 WBC (Bld) 5 % [facility] Myelocytes/100 WBC (Bld) 4 % [facility] Neutrophils (Bld) [#/Vol] 11.66 10*3/uL High [facility] Neutrophils/100 WBC (Bld) 75 % [facility] No Panel Informationon 02-07 Interpretation and review of laboratory results Abnormal [facility] Interpretation and review of laboratory results Abnormal [facility] POC GLUCOSE - [facility] 025 Glucose [Mass/Vol] 161 mg/dL High 65-99 [facility] Glucose [Mass/Vol] 129 mg/dL High 65-99 [facility] Glucose [Mass/Vol] 133 mg/dL High 65-99 [facility] Glucose [Mass/Vol] 122 mg/dL High 65-99 [facility] Glucose [Mass/Vol] 55 mg/dL Off scale low 65-99 [facility] Comment on above: Order Comment: Criti ian result acted upon time of test. Test performed at bedside. PT/INRon 02-07-2025 INR Coag (PPP) [Relative time] 1.5 {INR} High 0.8 - 1.1 [facility] INR Coag (PPP) [Relative time] 1.5 {INR} High 0.8-1.1 [facility] Comment on above: Order Comment: Annie nicole the induction phase of oral anticoagulation, the INR may not reflect the anticoagulation status of the patient. Therapeutic ranges for INR's are:Most clinical situations: INR 2.0-3.0Mechanical Prosthetic Valve: INR 2.5-3.5Critical: INR >5.0 Performed By: #### 4 6391 #### LAB [address] [place], [place] [address] Yusuf Villaseñor M.D. [id number] PT Coag (PPP) [Time] 17.7 s High 11.8-14.3 [facility] Comment on above: Order Comment: Annie nicole the induction phase of oral anticoagulation, the INR may not reflect the anticoagulation status of the patient. Therapeutic ranges for INR's are:Most clinical situations: INR 2.0-3.0Mechanical Prosthetic Valve: INR 2.5-3.5Critical: INR >5.0 Performed By: #### 4 6391 #### LAB [address], [place] [address] Yusuf Villaseñor M.D. [id number] XR CHEST PA/APon 02-07-2025 XR CHEST PA/AP Normal [facility] Comment on above: Order Comment: Injur y/Trauma or Illness?:Illness/OtherHow long have you had these symptoms (acute/chronic)?:AcuteReason for exam?:coughHistory of cancer?:unknownSurgeries, chemotherapy, or radiation?:unknownType of Exam?:OngoingAdditional signs and symptoms?:cough XR Chest PA and Abdomen APon 02-07-2025 GE RIS GE RIS [facility] Radiology Study observation (narrative) XR Chest PA and Abdomen APOr dered By: Giovani Fernandez on 02-07-2025 [facility] Work Phone: BASIC METABOLIC PANELon 01-10 Anion gap [Moles/Vol] 14 mmol/L Normal 10-20 [facility] Comment on above: Order Comment: [facility] has implemented the eGFR calculation approach that does not have a coefficient for race that conforms to the NKF-ASN Task Force Recommendations. Performed By: #### 4 6124 #### LAB [address] [place], [place] [address] Yusuf Villaseñor M.D. [id number] Calcium [Mass/Vol] 8.3 mg/dL Low 8.4-10.2 [facility] Comment on above: Order Comment: [facility] has implemented the eGFR calculation approach that does not have a coefficient for race that conforms to the NKF-ASN Task Force Recommendations. Performed By: #### 4 6124 #### LAB [address] [place], [place] [address] Yusuf Villaseñor M.D. [id number] Chloride [Moles/Vol] 95 mmol/L Low 98-108 [facility] Comment on above: Order Comment: [facility] has implemented the eGFR calculation approach that does not have a coefficient for race that conforms to the NKF-ASN Task Force Recommendations. Performed By: #### 4 6124 #### LAB [address] [address] Yusuf Villaseñor M.D. [id number] Creatinine [Mass/Vol] 1.14 mg/dL Normal 0.80-1.30 [facility] Comment on above: Order Comment: [facility] has implemented the eGFR calculation approach that does not have a coefficient for race that conforms to the NKF-ASN Task Force Recommendations. Performed By: #### 4 6124 #### LAB [address] [address] Yusuf Villaseñor M.D. [id number] EGFR 65 mL/min/1.73 m2 Normal >=60 [facility] Comment on above: Order Comment: [facility] has implemented the eGFR calculation approach that does not have a coefficient for race that conforms to the NKF-ASN Task Force Recommendations. Result Comment: Aide mated GFR was calculated using the 2020 CKD-EPI creatinine equation. Performed By: #### 4 6124 ####[facility] LAB [address] [address] Yusuf Villaseñor M.D. [id number] Glucose [Mass/Vol] 84 mg/dL Normal 65-99 [facility] Comment on above: Order Comment: [facility] has implemented the eGFR calculation approach that does not have a coefficient for race that conforms to the NKF-ASN Task Force Recommendations. Performed By: #### 4 6156 ####[facility] LAB [address] [id number] Yusuf Villaseñor M.D. [id number] HCO3 (Bld) [Moles/Vol] 26 mmol/L Normal 21-32 [facility] Comment on above: Order Comment: [facility] has implemented the eGFR calculation approach that does not have a coefficient for race that conforms to the NKF-ASN Task Force Recommendations. Performed By: #### 4 6124 #### LAB [address] [address] Yusuf Villaseñor M.D. [id number] Potassium [Moles/Vol] 3.8 mmol/L Normal 3.5-5.1 [facility] Comment on above: Order Comment: [facility] has implemented the eGFR calculation approach that does not have a coefficient for race that conforms to the NKF-ASN Task Force Recommendations. Performed By: #### 4 6124 #### LAB [address] [address] Yusuf Villaseñor M.D. [id number] Sodium [Moles/Vol] 131 mmol/L Low 135-145 [facility] Comment on above: Order Comment: [facility] has implemented the eGFR calculation approach that does not have a coefficient for race that conforms to the NKF-ASN Task Force Recommendations. Performed By: #### 4 6124 #### LAB [address] [address] Yusuf Villaseñor M.D. [id number] Urea nitrogen [Mass/Vol] 18 mg/dL Normal 8-25 [facility] Comment on above: Order Comment: [facility] has implemented the eGFR calculation approach that does not have a coefficient for race that conforms to the NKF-ASN Task Force Recommendations. Performed By: #### 4 6124 #### LAB [address] [address] Yusuf Villaseñor M.D. [id number] Urea nitrogen/Creatinine [Mass ratio] 15.8 mg/mg Normal 10.0-20.0 [facility] Comment on above: Order Comment: [facility] has implemented the eGFR calculation approach that does not have a coefficient for race that conforms to the NKF-ASN Task Force Recommendations. Performed By: #### 4 6124 ####[address] [address] [address] [place], [place] [address] Yusuf Villaseñor M.D. [id number] Basic metabolic 2000 panelon 02-06-2025 Anion gap [Moles/Vol] 14 mmol/L 10 - 2 0 mmol/L [facility] Calcium [Mass/Vol] 8.3 mg/dL Low 8.4 - 10. 2 mg/dL [facility] Chloride [Moles/Vol] 95 mmol/L Low 98 - 10 8 mmol/L [facility] Creatinine [Mass/Vol] 1.14 mg/dL 0.80 - 1.30 mg/dL [facility] GFR/1.73 sq M.predicted CKD-EPI (S/P/Bld) [Vol rate/Area] 65 - PINF [facility] Glucose [Mass/Vol] 84 mg/dL 65 - 99 mg/dL [facility]3 [Moles/Vol] 26 mmol/L 21 - 32 mmol/L [facility] Potassium [Moles/Vol] 3.8 mmol/L 3.5 - 5.1 mmol/L [facility] Sodium [Moles/Vol] 131 mmol/L Low 135 - 145 mmol/L [facility] Urea nitrogen [Mass/Vol] 18 mg/dL 8 - 25 mg/dL [facility] Urea nitrogen/Creatinine [Mass ratio] 15.8 mg/mg 10.0 - 20.0 [facility] CBC Auto Differentialon 01-10 Erythrocyte distribution width (RBC) [Entitic vol] 14.6 % 11.6 - 14.8 % [facility] Hematocrit (Bld) [Volume fraction] 24.4 % Low 41.0 - 53.0 % [facility] Hemoglobin (Bld) [Mass/Vol] 7.7 g/dL Low 13.5 - 17.5 g/dL [facility] MCH (RBC) [Entitic mass] 26.5 pg 26.0 - 34.0 pg [facility] MCHC (RBC) [Mass/Vol] 31.6 g/dL 31.0 - 37.0 g/dL [facility] MCV (RBC) [Entitic vol] 83.8 fL 80.0 - 100.0 fL [facility] Nucleated RBC (Bld) [#/Vol] 0.03 10*3/uL High [facility] Nucleated RBC/100 WBC (Bld) [Ratio] 0.2 % [facility] Platelet mean volume (Bld) [Entitic vol] 8.5 fL Low 9.4 - 12.4 fL [facility] Platelets (Bld) [#/Vol] 267 10*3/uL [facility] RBC (Bld) [#/Vol] 2.91 10*6/uL Low [facility] ealt WBC (Bld) [#/Vol] 14.44 10*3/uL High [facility] CBC WITH AUTO DIFFERENTIALon 02-06-2025 AUTO NRBC 0.2 % Normal [facility] Comment on above: Performed By: #### L [id number] #### LAB [address] [address] Yusuf Villaseñor M.D. [id number] AUTO NRBC ABS COUNT 0.03 K/mcL High 0.00-0.00 [facility] Comment on above: Performed By: #### L [id number] #### LAB [address] [address] Yusuf Villaseñor M.D. [id number] Erythrocyte distribution width (RBC) [Ratio] 14.6 % Normal 11.6-14.8 [facility] Comment on above: Performed By: #### L [id number] #### LAB [address] [address] Yusuf Villaseñor M.D. [id number] Hematocrit (Bld) [Volume fraction] 24.4 % Low 41.0-53.0 [facility] Comment on above: Performed By: #### L [id number] #### LAB [address] [address] Yusuf Villaseñor M.D. [id number] Hemoglobin (Bld) [Mass/Vol] 7.7 g/dL Low 13.5-17.5 [facility] Comment on above: Performed By: #### L [id number] #### LAB [address] [address] Yusuf Villaseñor M.D. [id number] MCH (RBC) [Entitic mass] 26.5 pg Normal 26.0-34.0 [facility] Comment on above: Performed By: #### L [id number] #### LAB [address] [address] Yusuf Villaseñor M.D. [id number] MCV (RBC) [Entitic vol] 83.8 fL Normal 80.0-100.0 [facility] Comment on above: Performed By: #### L [id number] ####[facility] LAB [address] [address] Yusuf Villaseñor M.D. [id number] MEAN CORPUSCULAR HEMOGLOBIN CONC 31.6 g/dL Normal 31.0-37.0 [facility] Comment on above: Performed By: #### L [id number] #### LAB [address] [address] Yusuf Villaseñor M.D. [id number] Platelet mean volume (Bld) [Entitic vol] 8.5 fL Low 9.4-12.4 [facility] Comment on above: Performed By: #### L [id number] ####[facility] LAB [address] [address] Yusuf Villaseñor M.D. [id number] Platelets (Bld) [#/Vol] 267 10*3/uL Normal 150-400 [facility] Comment on above: Performed By: #### L [id number] ####[facility] LAB [address] [address] Yusuf Villaseñor M.D. [id number] RBC (Bld) [#/Vol] 2.91 10*6/uL Low 4.50-5.90 [facility] Comment on above: Performed By: #### L [id number] ####[facility] LAB [address] [address] Yusuf Villaseñor M.D. [id number] WBC (Bld) [#/Vol] 14.44 10*3/uL High 4.50-11.00 [facility] Comment on above: Performed By: #### L [id number] ####[facility] LAB [address], [place] [address] Yusuf Villaseñor M.D. [id number] CBC and Diff Morphologyon Acanthocytes LM Ql (Bld) Few [facility] Platelets LM Ql (Bld) Normal Normal [facility] Polychromasia LM Ql (Bld) Few [facility] RBC morphology finding Nom (Bld) See Comment [facility] Glucose (Bld) [Mass/Vol]on 0 02-06-2025 Glucose [Mass/Vol] 192 mg/dL High 65 - 99 mg/dL [facility] Interpretation and review of laboratory results Abnormal [facility] Glucose [Mass/Vol] 118 mg/dL High 65 - 99 mg/dL [facility] Interpretation and review of laboratory results Abnormal [facility] Glucose [Mass/Vol] 160 mg/dL High 65 - 99 mg/dL [facility] Interpretation and review of laboratory results Abnormal [facility] Glucose [Mass/Vol] 116 mg/dL High 65 - 99 mg/dL [facility] Interpretation and review of laboratory results Abnormal [facility] Glucose [Mass/Vol] 73 mg/dL 65 - 99 mg/dL [facility] Interpretation and review of laboratory results Normal [facility] HEPATIC FUNCTION PANELon Albumin [Mass/Vol] 2.8 g/dL Low 3.2-5.2 [facility] Comment on above: Performed By: #### 4 5866 ####[facility] LAB [address] [place], [place] [address] Yusuf Villaseñor M.D. [id number] ALP [Catalytic activity/Vol] 98 U/L Normal 40-150 [facility] Comment on above: Performed By: #### 4 5866 ####[facility] LAB [address], [place] [address] Yusuf Villaseñor M.D. [id number] ALT [Catalytic activity/Vol] 315 U/L High 0-50 U/L [facility] Comment on above: Performed By: #### 4 5866 ####[facility] LAB [address], [place] [address] Yusuf Villaseñor M.D. [id number] AST [Catalytic activity/Vol] 40 U/L Normal 0-50 U/L [facility] Comment on above: Performed By: #### 4 5866 #### LAB [address] [address] Yusuf Villaseñor M.D. [id number] Bilirubin [Mass/Vol] 0.5 mg/dL Normal 0.0-1.3 [facility] Comment on above: Performed By: #### 4 5866 #### LAB [address] [address] Yusuf Villaseñor M.D. [id number] Bilirubin.indirect [Mass/Vol] 0.3 mg/dL Normal 0.0-0.4 [facility] Comment on above: Performed By: #### 4 5866 #### LAB [address] [address] Yusuf Villaseñor M.D. [id number] Protein [Mass/Vol] 5.8 g/dL Low 6.0-8.0 [facility] Comment on above: Performed By: #### 4 5866 #### LAB [address] [address] Yusuf Villaseñor M.D. [id number] Hepatic function 2000 panelo n 02-06-2025 Albumin [Mass/Vol] 2.8 g/dL Low 3.2 - 5.2 g/dL [facility] ALP [Catalytic activity/Vol] 98 U/L 40 - 150 U/L [facility] ALT [Catalytic activity/Vol] 315 U/L High 0 - 50 U/L [facility] AST [Catalytic activity/Vol] 40 U/L 0 - 50 U/L [facility] Bilirubin [Mass/Vol] 0.5 mg/dL 0.0 - 1 .3 mg/dL [facility] Bilirubin.conjugated [Mass/Vol] 0.3 mg/dL 0.0 - 0.4 mg/dL [facility] Protein [Mass/Vol] 5.8 g/dL Low 6.0 - 8.0 g/dL [facility] INR Coag (PPP) [Relative pily e]on 02-06-2025 Interpretation and review of laboratory results Abnormal [facility] PT Coag (PPP) [Time] 15.3 s High [facility] MAGNESIUM LEVELon 02-06-2025 Magnesium [Mass/Vol] 1.8 mg/dL Normal 1.6-2.4 [facility] Comment on above: Performed By: #### 4 6109 #### LAB [address] [address] Yusuf Villaseñor M.D. [id number] MANUAL DIFFERENTIALon 2024 BASOPHILS - ABS (DIFF) 0.29 K/mcL Normal 0.00-0.30 [facility] Comment on above: Performed By: #### 4 [id number] #### LAB [address] [address] Yusuf Villaseñor M.D. [id number] BASOPHILS - REL (DIFF) 2.0 % Normal [facility] Comment on above: Performed By: #### 4 5456 #### LAB [address] [address] Yusuf Villaseñor M.D. [id number] EOSINOPHILS - ABS (DIFF) 0.72 K/mcL High 0.00-0.50 [facility] Comment on above: Performed By: #### 4 5456 #### LAB [address] [address] Yusuf Villaseñor M.D. [id number] EOSINOPHILS - REL (DIFF) 5.0 % [facility] Comment on above: Performed By: #### 4 5456 #### LAB [address] [address] Yusuf Villaseñor M.D. [id number] LYMPHOCYTES - ABS (DIFF) 0.87 K/mcL Low 0.90-4.00 [facility] Comment on above: Performed By: #### 4 5456 #### LAB [address] [address] Yusuf Villaseñor M.D. [id number] LYMPHOCYTES - REL (DIFF) 6.0 % Normal [facility] Comment on above: Performed By: #### 4 3192 #### LAB [address] [address] Yusuf Villaseñor M.D. [id number] METAMYELOCYTES-REL (DIFF) 2.0 % Normal [facility] Comment on above: Performed By: #### 4 5456 #### LAB [address] [address] Yusuf Villaseñor M.D. [id number] MONOCYTES - ABS (DIFF) 1.01 K/mcL High 0.30-0.90 [facility] Comment on above: Performed By: #### 4 5456 #### LAB [address] [address] Yusuf Villaseñor M.D. [id number] MONOCYTES - REL (DIFF) 7.0 % Normal [facility] Comment on above: Performed By: #### 4 5456 #### LAB [address] [address] Yusuf Villaseñor M.D. [id number] NEUTROPHILS - ABS (DIFF) 11.55 K/mcL High 1.70-7.00 [facility] Comment on above: Performed By: #### 4 5456 #### LAB [address] [address] Yusuf Villaseñor M.D. [id number] NEUTROPHILS - REL (DIFF) 78.0 % [facility] Comment on above: Performed By: #### 4 5456 #### LAB [address] [address] Yusuf Villaseñor M.D. [id number] MORPHOLOGYon 02-06-[address] [facility] Comment on above: Performed By: #### L [id number] #### LAB [address] [address] Yusuf Villaseñor M.D. [id number] PLATELET ESTIMATE Normal Normal [facility] Comment on above: Performed By: #### L [id number] #### LAB [address] [address] Yusuf Villaseñor M.D. [id number] POLY SCAN Few [facility] Comment on above: Performed By: #### L [id number] ####[facility] LAB [address] [address] Yusuf Villaseñor M.D. [id number] RBC MORPH SCAN See Comment Normal [facility] Comment on above: Result Comment: RBC Indices confirmed with manual peripheral smear review. Performed By: #### L [id number] ####[facility] LAB [address] [place], [place] [address] Yusuf Villaseñor M.D. [id number] Magnesium Levelon 02-06-2025 Magnesium [Mass/Vol] 1.8 mg/dL 1.6 - 2 .4 mg/dL [facility] Magnesium [Mass/Vol]on 02-06 Interpretation and review of laboratory results Normal [facility] Manual Differential panel (B ld)on 02-06-2025 Basophils (Bld) [#/Vol] 0.29 10*3/uL [facility] Basophils/100 WBC (Bld) 2 % [facility] Eosinophils (Bld) [#/Vol] 0.72 10*3/uL High [facility] Eosinophils/100 WBC (Bld) 5 % [facility] Lymphocytes (Bld) [#/Vol] 0.87 10*3/uL Low [facility] Lymphocytes/100 WBC (Bld) 6 % [facility] Metamyelocytes/100 WBC (Bld) 2 % [facility] Monocytes (Bld) [#/Vol] 1.01 10*3/uL High [facility] Monocytes/100 WBC (Bld) 7 % [facility] Neutrophils (Bld) [#/Vol] 11.55 10*3/uL High [facility] Neutrophils/100 WBC (Bld) 78 % [facility] No Panel Informationon 02-06 Interpretation and review of laboratory results Abnormal [facility] Interpretation and review of laboratory results Abnormal [facility] POC GLUCOSE - [facility] 025 Glucose [Mass/Vol] 192 mg/dL High 65-99 [facility] Glucose [Mass/Vol] 118 mg/dL High 65- [facility] Glucose [Mass/Vol] 160 mg/dL High 65-99 [facility] Glucose [Mass/Vol] 116 mg/dL High 65- [facility] Glucose [Mass/Vol] 73 mg/dL Normal 65-99 [facility] POTASSIUM LEVELon 02-06-2025 Potassium [Moles/Vol] 4.3 mmol/L Normal 3.5-5.1 [facility] Comment on above: Performed By: #### 4 6351 #### LAB [address] [place], [place] [address] Yusuf Villaseñor M.D. [id number] PT/INRon 02-06-2025 INR Coag (PPP) [Relative time] 1.2 {INR} High 0.8 - 1.1 [facility] INR Coag (PPP) [Relative time] 1.2 {INR} High 0.8-1.1 [facility] Comment on above: Order Comment: Durin g the induction phase of oral anticoagulation, the INR may not reflect the anticoagulation status of the patient. Therapeutic ranges for INR's are:Most clinical situations: INR 2.0-3.0Mechanical Prosthetic Valve: INR 2.5-3.5Critical: INR >5.0 Performed By: #### 4 6391 #### LAB [address] [place], [place] [address] Yusuf Villaseñor M.D. [id number] PT Coag (PPP) [Time] 15.3 s High 11.8-14.3 [facility] Comment on above: Order Comment: Durradha g the induction phase of oral anticoagulation, the INR may not reflect the anticoagulation status of the patient. Therapeutic ranges for INR's are:Most clinical situations: INR 2.0-3.0Mechanical Prosthetic Valve: INR 2.5-3.5Critical: INR >5.0 Performed By: #### 4 6391 #### LAB [address] [place], [place] [address] Yusuf Villaseñor M.D. [id number] Potassium Levelon 02-06-2025 Potassium [Moles/Vol] 4.3 mmol/L 3.5 - 5.1 mmol/L [facility] Potassium [Moles/Vol]on 01-10 Interpretation and review of laboratory results Normal [facility] Surgical Site Aerobic & Anae robic CultureOrdered By: Rosi Miramontes on 02-06-2025 Bacteria identified Aer cx Nom (Unsp spec) No Anaerobic Growth after 5 days [facility] Bacteria identified Aer cx Nom (Unsp spec) Moderate Growth Streptococcus agalactiae (Group B) Abnormal [facility] Interpretation and review of laboratory results Abnormal [facility] Microscopic observation Gram stain Nom (Unsp spec) Moderate WBC [facility] Microscopic observation Gram stain Nom (Unsp spec) Positive [facility] Aerobic & Anae robic CultureOrdered By: Zohra Manrique on 02-06-2025 Bacteria identified Aer cx Nom (Unsp spec) No Anaerobic Growth after 5 days [facility] Bacteria identified Aer cx Nom (Unsp spec) Moderate Growth Streptococcus agalactiae (Group B) Abnormal [facility] Interpretation and review of laboratory results Abnormal [facility] Microscopic observation Gram stain Nom (Unsp spec) Many WBC [facility] Microscopic observation Gram stain Nom (Unsp spec) Many RBC [facility] Microscopic observation Gram stain Nom (Unsp spec) Positive [facility] BASIC METABOLIC PANELon 01-09 Anion gap [Moles/Vol] 15 mmol/L Normal 10-20 [facility] Comment on above: Order Comment: [facility] has implemented the eGFR calculation approach that does not have a coefficient for race that conforms to the NKF-ASN Task Force Recommendations. Performed By: #### 4 6124 #### LAB [address] [place] [address] Yusuf Villaseñor M.D. [id number] Calcium [Mass/Vol] 8.5 mg/dL Normal 8.4-10.2 [facility] Comment on above: Order Comment: [facility] has implemented the eGFR calculation approach that does not have a coefficient for race that conforms to the NKF-ASN Task Force Recommendations. Performed By: #### 4 6124 ####[facility] LAB [address] [place] [address] Yusuf Villaseñor M.D. [id number] Chloride [Moles/Vol] 95 mmol/L Low 98-108 [facility] Comment on above: Order Comment: [facility] has implemented the eGFR calculation approach that does not have a coefficient for race that conforms to the NKF-ASN Task Force Recommendations. Performed By: #### 4 6124 ####[facility] LAB [address] [place] [address] Yusuf Villaseñor M.D. [id number] Creatinine [Mass/Vol] 1.24 mg/dL Normal 0.80-1.30 [facility] Comment on above: Order Comment: [facility] has implemented the eGFR calculation approach that does not have a coefficient for race that conforms to the NKF-ASN Task Force Recommendations. Performed By: #### 4 6136 #### LAB [address] [place] [address] Yusuf Villaseñor M.D. [id number] EGFR 59 mL/min/1.73 m2 Low >=60 [facility] Comment on above: Order Comment: [facility] has implemented the eGFR calculation approach that does not have a coefficient for race that conforms to the NKF-ASN Task Force Recommendations. Result Comment: Aide mated GFR was calculated using the 2020 CKD-EPI creatinine equation. Performed By: #### 4 6124 #### LAB [address] [place] [address] Yusuf Villaseñor M.D. [id number] Glucose [Mass/Vol] 136 mg/dL High 65-99 [facility] Comment on above: Order Comment: [facility] has implemented the eGFR calculation approach that does not have a coefficient for race that conforms to the NKF-ASN Task Force Recommendations. Performed By: #### 4 6124 #### LAB [address] [place] [address] Yusuf Villaseñor M.D. [id number] HCO3 (Bld) [Moles/Vol] 27 mmol/L Normal 21-32 [facility] Comment on above: Order Comment: [facility] has implemented the eGFR calculation approach that does not have a coefficient for race that conforms to the NKF-ASN Task Force Recommendations. Performed By: #### 4 6136 #### LAB [address] [place] [address] Yusuf Villaseñor M.D. [id number] Potassium [Moles/Vol] 4.2 mmol/L Normal 3.5-5.1 [facility] Comment on above: Order Comment: [facility] has implemented the eGFR calculation approach that does not have a coefficient for race that conforms to the NKF-ASN Task Force Recommendations. Performed By: #### 4 6124 #### LAB [address] [place], [place] [address] Yusuf Villaseñor M.D. [id number] Sodium [Moles/Vol] 133 mmol/L Low 135-145 [facility] Comment on above: Order Comment: [facility] has implemented the eGFR calculation approach that does not have a coefficient for race that conforms to the NKF-ASN Task Force Recommendations. Performed By: #### 4 6124 #### LAB [address] [place] [address] Yusuf Villaseñor M.D. [id number] Urea nitrogen [Mass/Vol] 21 mg/dL Normal 8-25 [facility] Comment on above: Order Comment: [facility] has implemented the eGFR calculation approach that does not have a coefficient for race that conforms to the NKF-ASN Task Force Recommendations. Performed By: #### 4 6124 #### LAB [address] [place] [address] Yusuf Villaseñor M.D. [id number] Urea nitrogen/Creatinine [Mass ratio] 16.9 mg/mg Normal 10.0-20.0 [facility] Comment on above: Order Comment: [facility] has implemented the eGFR calculation approach that does not have a coefficient for race that conforms to the NKF-ASN Task Force Recommendations. Performed By: #### 4 6124 #### LAB [address] [place] [address] Yusuf Villaseñor M.D. [id number] Basic metabolic 2000 panelon 02-05-2025 Anion gap [Moles/Vol] 15 mmol/L 10 - 2 0 mmol/L [facility] Calcium [Mass/Vol] 8.5 mg/dL 8.4 - 10. 2 mg/dL [facility] Chloride [Moles/Vol] 95 mmol/L Low 98 - 10 8 mmol/L [facility] Creatinine [Mass/Vol] 1.24 mg/dL 0.80 - 1.30 mg/dL [facility] GFR/1.73 sq M.predicted CKD-EPI (S/P/Bld) [Vol rate/Area] 59 Low - PINF [facility] Glucose [Mass/Vol] 136 mg/dL High 65 - 99 mg/dL [facility] HCO3 [Moles/Vol] 27 mmol/L 21 - 32 mmol/L [facility] Potassium [Moles/Vol] 4.2 mmol/L 3.5 - 5.1 mmol/L [facility] Sodium [Moles/Vol] 133 mmol/L Low 135 - 145 mmol/L [facility] Urea nitrogen [Mass/Vol] 21 mg/dL 8 - 25 mg/dL [facility] Urea nitrogen/Creatinine [Mass ratio] 16.9 mg/mg 10.0 - 20.0 [facility] CBC Auto Differentialon 01-09 Erythrocyte distribution width (RBC) [Entitic vol] 14.5 % 11.6 - 14.8 % [facility] Hematocrit (Bld) [Volume fraction] 24.4 % Low 41.0 - 53.0 % [facility] Hemoglobin (Bld) [Mass/Vol] 7.7 g/dL Low 13.5 - 17.5 g/dL [facility] MCH (RBC) [Entitic mass] 26.7 pg 26.0 - 34.0 pg [facility] MCHC (RBC) [Mass/Vol] 31.6 g/dL 31.0 - 37.0 g/dL [facility] MCV (RBC) [Entitic vol] 84.7 fL 80.0 - 100.0 fL [facility] Nucleated RBC (Bld) [#/Vol] 0.04 10*3/uL [facility] Nucleated RBC/100 WBC (Bld) [Ratio] 0.3 % [facility] Platelet mean volume (Bld) [Entitic vol] 8.7 fL Low 9.4 - 12.4 fL [facility] Platelets (Bld) [#/Vol] 228 10*3/uL [facility] RBC (Bld) [#/Vol] 2.88 10*6/uL Low [facility] ealth WBC (Bld) [#/Vol] 15.98 10*3/uL [facility] CBC WITH AUTO DIFFERENTIALon 02-05-2025 AUTO NRBC 0.3 % Normal [facility] Comment on above: Performed By: #### L [id number] ####[facility] LAB [address] [place], [place] [address] Yusuf Villaseñor M.D. [id number] AUTO NRBC ABS COUNT 0.04 K/mcL High 0.00-0.00 [facility] Comment on above: Performed By: #### L [id number] #### LAB [address] [place] [address] Yusuf Villaseñor M.D. [id number] Erythrocyte distribution width (RBC) [Ratio] 14.5 % Normal 11.6-14.8 [facility] Comment on above: Performed By: #### L [id number] ####[facility] LAB [address] [place] [address] Yusuf Villaseñor M.D. [id number] Hematocrit (Bld) [Volume fraction] 24.4 % Low 41.0-53.0 [facility] Comment on above: Performed By: #### L [id number] #### LAB [address] [place] [address] Yusuf Villaseñor M.D. [id number] Hemoglobin (Bld) [Mass/Vol] 7.7 g/dL Low 13.5-17.5 [facility] Comment on above: Performed By: #### L [id number] #### LAB [address] [place] [address] Yusuf Villaseñor M.D. [id number] MCH (RBC) [Entitic mass] 26.7 pg Normal 26.0-34.0 [facility] Comment on above: Performed By: #### L [id number] #### LAB [address] [place] [address] Yusuf Villaseñor M.D. [id number] MCV (RBC) [Entitic vol] 84.7 fL Normal 80.0-100.0 [facility] Comment on above: Performed By: #### L [id number] ####[facility] LAB [address] [place] [address] Yusuf Villaseñor M.D. [id number] MEAN CORPUSCULAR HEMOGLOBIN CONC 31.6 g/dL Normal 31.0-37.0 [facility] Comment on above: Performed By: #### L [id number] ####[facility] LAB [address] [place] [address] Yusuf Villaseñor M.D. [id number] Platelet mean volume (Bld) [Entitic vol] 8.7 fL Low 9.4-12.4 [facility] Comment on above: Performed By: #### L [id number] ####[facility] LAB [address] [place], [place] [address] Yusuf Villaseñor M.D. [id number] Platelets (Bld) [#/Vol] 228 10*3/uL Normal 150-400 [facility] Comment on above: Performed By: #### L [id number] ####[facility] LAB [address] [place] [address] Yusuf Villaseñor M.D. [id number] RBC (Bld) [#/Vol] 2.88 10*6/uL Low 4.50-5.90 [facility] Comment on above: Performed By: #### L [id number] ####[facility] LAB [address] [place] [address] Yusuf Villaseñor M.D. [id number] WBC (Bld) [#/Vol] 15.98 10*3/uL High 4.50-11.00 [facility] Comment on above: Performed By: #### L [id number] ####[facility] LAB [address] [place] [address] Yusuf Villaseñor M.D. [id number] CBC and Diff Morphologyon Ovalocytes LM Ql (Bld) [facility] Platelets LM Ql (Bld) Normal [facility] Polychrom[facility] LM Ql (Bld) Moderate [facility] RBC morphology finding Nom (Bld) See Comment [facility] Glucose (Bld) [Mass/Vol]on 0 02-05-2025 Glucose [Mass/Vol] 139 mg/dL High 65 - 99 mg/dL [facility] Interpretation and review of laboratory results Abnormal [facility] Glucose [Mass/Vol] 105 mg/dL High 65 - 99 mg/dL [facility] Interpretation and review of laboratory results Abnormal [facility] Glucose [Mass/Vol] 161 mg/dL High 65 - 99 mg/dL [facility] Interpretation and review of laboratory results Abnormal [facility] Glucose [Mass/Vol] 152 mg/dL High 65 - 99 mg/dL [facility] Interpretation and review of laboratory results Abnormal [facility] HEPATIC FUNCTION PANELon Albumin [Mass/Vol] 2.9 g/dL Low 3.2-5.2 [facility] Comment on above: Performed By: #### 4 5866 #### LAB [address] [place] [address] Yusuf Villaseñor M.D. [id number] ALP [Catalytic activity/Vol] 109 U/L Normal 40-150 [facility] Comment on above: Performed By: #### 4 5866 ####[facility] LAB [address] [place] [address] Yusuf Villaseñor M.D. [id number] ALT [Catalytic activity/Vol] 414 U/L High 0-50 U/L [facility] Comment on above: Performed By: #### 4 5866 #### LAB [address] [place] [address] Yusuf Villaseñor M.D. [id number] AST [Catalytic activity/Vol] 55 U/L High 0-50 U/L [facility] Comment on above: Performed By: #### 4 5866 #### LAB [address] [place] [address] Yusuf Villaseñor M.D. [id number] Bilirubin [Mass/Vol] 0.6 mg/dL Normal 0.0-1.3 [facility] Comment on above: Performed By: #### 4 5866 ####[facility] LAB [address] [place] [address] Yusuf Villaseñor M.D. [id number] Bilirubin.indirect [Mass/Vol] 0.3 mg/dL Normal 0.0-0.4 [facility] Comment on above: Performed By: #### 4 5866 #### LAB [address] [place] [address] Yusuf Villaseñor M.D. [id number] Protein [Mass/Vol] 6.2 g/dL Normal 6.0-8.0 [facility] Comment on above: Performed By: #### 4 5866 #### LAB [address] [place] [address] Yusuf Villaseñor M.D. [id number] Hepatic function 2000 panelo n 02-05-2025 Albumin [Mass/Vol] 2.9 g/dL Low 3.2 - 5.2 g/dL [facility] ALP [Catalytic activity/Vol] 109 U/L 40 - 150 U/L [facility] ALT [Catalytic activity/Vol] 414 U/L High 0 - 50 U/L [facility] AST [Catalytic activity/Vol] 55 U/L High 0 - 50 U/L [facility] Bilirubin [Mass/Vol] 0.6 mg/dL 0.0 - 1 .3 mg/dL [facility] Bilirubin.conjugated [Mass/Vol] 0.3 mg/dL 0.0 - 0.4 mg/dL [facility] Protein [Mass/Vol] 6.2 g/dL 6.0 - 8.0 g/dL [facility] INR Coag (PPP) [Relative pily e]on 02-05-2025 Interpretation and review of laboratory results Abnormal [facility] PT Coag (PPP) [Time] 15.3 s High [facility] MAGNESIUM LEVELon 02-05-2025 Magnesium [Mass/Vol] 2.0 mg/dL Normal 1.6-2.4 [facility] Comment on above: Performed By: #### 4 6109 #### LAB [address] [place] [address] Yusuf Villaseñor M.D. [id number] MANUAL DIFFERENTIALon 2024 BASOPHILS - ABS (DIFF) 0.00 K/mcL Normal 0.00-0.30 [facility] Comment on above: Performed By: #### 4 5456 #### LAB [address] [place] [id number] Yusuf Villaseñor M.D. [id number] BASOPHILS - REL (DIFF) 0.0 % Normal [facility] Comment on above: Performed By: #### 4 5456 #### LAB [address] [place] [address] Yusuf Villaseñor M.D. [id number] EOSINOPHILS - ABS (DIFF) 0.16 K/mcL Normal 0.00-0.50 [facility] Comment on above: Performed By: #### 4 5496 #### LAB [address] [place] [address] Yusuf Villaseñor M.D. [id number] EOSINOPHILS - REL (DIFF) 1.0 % [facility] Comment on above: Performed By: #### 4 5439 #### LAB [address] [place] [address] Yusuf Villaseñor M.D. [id number] LYMPHOCYTES - ABS (DIFF) 1.44 K/mcL Normal 0.90-4.00 [facility] Comment on above: Performed By: #### 4 5456 #### LAB [address] [place] [address] Yusuf Villaseñor M.D. [id number] LYMPHOCYTES - REL (DIFF) 9.0 % [facility] Comment on above: Performed By: #### 4 3287 #### LAB [address] [place] [address] Yusuf Villaseñor M.D. [id number] METAMYELOCYTES-REL (DIFF) 3.0 % [facility] Comment on above: Performed By: #### 4 9656 #### LAB [address] [place] [address] Yusuf Villaseñor M.D. [id number] MONOCYTES - ABS (DIFF) 1.12 K/mcL High 0.30-0.90 [facility] Comment on above: Performed By: #### 4 4856 #### LAB [address] [place] [address] Yusuf Villaseñor M.D. [id number] MONOCYTES - REL (DIFF) 7.0 % Normal [facility] Comment on above: Performed By: #### 4 9900 #### LAB [address] [place] [address] Yusuf Villaseñor M.D. [id number] MYELOCYTES RELATIVE PERCENT 2.0 % [facility] Comment on above: Performed By: #### 4 1977 ####[facility] LAB [address] [place] [id number] Yusuf Villaseñor M.D. [id number] NEUTROPHILS - ABS (DIFF) 13.26 K/mcL High 1.70-7.00 [facility] Comment on above: Performed By: #### 4 5456 ####[facility] LAB [address] [place] [address] Yusuf Villaseñor M.D. [id number] NEUTROPHILS - REL (DIFF) 78.0 % Normal [facility] Comment on above: Performed By: #### 4 5456 #### LAB [address] [place] [address] Yusuf Villaseñor M.D. [id number] MORPHOLOGYon 02-05-2025 OVAL SCAN Few Normal [facility] Comment on above: Performed By: #### L [id number] ####[facility] LAB [address] [place] [address] Yusuf Villaseñor M.D. [id number] PLATELET ESTIMATE Normal Normal Normal [facility] Comment on above: Performed By: #### L [id number] ####[facility] LAB [address] [place] [address] Yusuf Villaseñor M.D. [id number] POLY SCAN Moderate Normal [facility] Comment on above: Performed By: #### L [id number] ####[facility] LAB [address] [place] [address] Yusuf Villaseñor M.D. [id number] RBC MORPH SCAN See Comment Normal [facility] Comment on above: Result Comment: RBC Indices confirmed with manual peripheral smear review. Performed By: #### L [id number] ####[facility] LAB [address] [place] [address] Yusuf Villaseñor M.D. [id number] Magnesium Levelon 02-05-2025 Magnesium [Mass/Vol] 2 mg/dL 1.6 - 2 .4 mg/dL [facility] Magnesium [Mass/Vol]on 02-05 Interpretation and review of laboratory results Normal [facility] Manual Differential panel (B ld)on 02-05-2025 Basophils (Bld) [#/Vol] 0 10*3/uL [facility] Basophils/100 WBC (Bld) 0 % [facility] Eosinophils (Bld) [#/Vol] 0.16 10*3/uL [facility] Eosinophils/100 WBC (Bld) 1 % [facility] Lymphocytes (Bld) [#/Vol] 1.44 10*3/uL [facility] Lymphocytes/100 WBC (Bld) 9 % [facility] Metamyelocytes/100 WBC (Bld) 3 % [facility] Monocytes (Bld) [#/Vol] 1.12 10*3/uL High [facility] Monocytes/100 WBC (Bld) 7 % [facility] Myelocytes/100 WBC (Bld) 2 % [facility] Neutrophils (Bld) [#/Vol] 13.26 10*3/uL High [facility] Neutrophils/100 WBC (Bld) 78 % [facility] No Panel Informationon 02-05 Interpretation and review of laboratory results Abnormal [facility] Interpretation and review of laboratory results Abnormal [facility] POC GLUCOSE - [facility] 025 Glucose [Mass/Vol] 139 mg/dL High 65-[address] [place] [address] Glucose [Mass/Vol] 105 mg/dL High [address] [place] [address] Glucose [Mass/Vol] 161 mg/dL High [address] Glucose [Mass/Vol] 152 mg/dL High -[address] [place] [address] PT/INRon 02-05-2025 INR Coag (PPP) [Relative time] 1.2 {INR} High 0.8 - 1.1 [facility] INR Coag (PPP) [Relative time] 1.2 {INR} High 0.8-1.1 [facility] Comment on above: Order Comment: Annie nicole the induction phase of oral anticoagulation, the INR may not reflect the anticoagulation status of the patient. Therapeutic ranges for INR's are:Most clinical situations: INR 2.0-3.0Mechanical Prosthetic Valve: INR 2.5-3.5Critical: INR >5.0 Performed By: #### 4 6391 #### LAB [address] [place], [place] [address] Yusuf Villaseñor M.D. [id number] PT Coag (PPP) [Time] 15.3 s High 11.8-14.3 [facility] Comment on above: Order Comment: Annie nicole the induction phase of oral anticoagulation, the INR may not reflect the anticoagulation status of the patient. Therapeutic ranges for INR's are:Most clinical situations: INR 2.0-3.0Mechanical Prosthetic Valve: INR 2.5-3.5Critical: INR >5.0 Performed By: #### 4 6391 #### LAB [address] [place], [place] [address] Yusuf Villaseñor M.D. [id number] BASIC METABOLIC PANELon 07-2 Anion gap [Moles/Vol] 15 mmol/L Normal 10-20 [facility] Comment on above: Order Comment: [facility] has implemented the eGFR calculation approach that does not have a coefficient for race that conforms to the NKF-ASN Task Force Recommendations. Performed By: #### 4 6124 #### LAB [address] [place] [address] Yusuf Villaseñor M.D. [id number] Calcium [Mass/Vol] 8.5 mg/dL Normal 8.4-10.2 [facility] Comment on above: Order Comment: [facility] has implemented the eGFR calculation approach that does not have a coefficient for race that conforms to the NKF-ASN Task Force Recommendations. Performed By: #### 4 6124 #### LAB [address] [place], [place] [address] Yusuf Villaseñor M.D. [id number] Chloride [Moles/Vol] 95 mmol/L Low 98-108 [facility] Comment on above: Order Comment: [facility] has implemented the eGFR calculation approach that does not have a coefficient for race that conforms to the NKF-ASN Task Force Recommendations. Performed By: #### 4 6199 #### LAB [address] [place] [address] Yusuf Villaseñor M.D. [id number] Creatinine [Mass/Vol] 1.32 mg/dL High 0.80-1.30 [facility] Comment on above: Order Comment: [facility] has implemented the eGFR calculation approach that does not have a coefficient for race that conforms to the NKF-ASN Task Force Recommendations. Performed By: #### 4 6124 #### LAB [address] [place] [address] Yusuf Villaseñor M.D. [id number] EGFR 55 mL/min/1.73 m2 Low >=60 [facility] Comment on above: Order Comment: [facility] has implemented the eGFR calculation approach that does not have a coefficient for race that conforms to the NKF-ASN Task Force Recommendations. Result Comment: Aide mated GFR was calculated using the 2020 CKD-EPI creatinine equation. Performed By: #### 4 6124 #### LAB [address] [place] [address] Yusuf Villaseñor M.D. [id number] Glucose [Mass/Vol] 104 mg/dL High 65-99 [facility] Comment on above: Order Comment: [facility] has implemented the eGFR calculation approach that does not have a coefficient for race that conforms to the NKF-ASN Task Force Recommendations. Performed By: #### 4 6124 #### LAB [address] [place] [address] Yusuf Villaseñor M.D. [id number] HCO3 (Bld) [Moles/Vol] 27 mmol/L Normal 21-32 [facility] Comment on above: Order Comment: [facility] has implemented the eGFR calculation approach that does not have a coefficient for race that conforms to the NKF-ASN Task Force Recommendations. Performed By: #### 4 6124 ####[facility] [address] [place] [address] Yusuf Villaseñor M.D. [id number] Potassium [Moles/Vol] 4.3 mmol/L Normal 3.5-5.1 [facility] Comment on above: Order Comment: [facility] has implemented the eGFR calculation approach that does not have a coefficient for race that conforms to the NKF-ASN Task Force Recommendations. Performed By: #### 4 [id number] #### LAB [address] [address] Yusuf Villaseñor M.D. [id number] Sodium [Moles/Vol] 133 mmol/L Low 135-145 [facility] Comment on above: Order Comment: [facility] has implemented the eGFR calculation approach that does not have a coefficient for race that conforms to the NKF-ASN Task Force Recommendations. Performed By: #### 4 6124 #### LAB [address] [place], [place] [address] Yusuf Villaseñor M.D. [id number] Urea nitrogen [Mass/Vol] 30 mg/dL High 8-25 [facility] Comment on above: Order Comment: [facility] has implemented the eGFR calculation approach that does not have a coefficient for race that conforms to the NKF-ASN Task Force Recommendations. Performed By: #### 4 6124 #### LAB [address] [address] Yusuf Villaseñor M.D. [id number] Urea nitrogen/Creatinine [Mass ratio] 22.7 mg/mg High 10.0-20.0 [facility] Comment on above: Order Comment: [facility] has implemented the eGFR calculation approach that does not have a coefficient for race that conforms to the NKF-ASN Task Force Recommendations. Performed By: #### 4 6124 #### LAB [address] [address] Yusuf Villaseñor M.D. [id number] BLOOD CULTURE AEROBIC/ANAERO BICon 02-04-2025 BLOOD CULTURE AEROBIC/ANAEROBIC BLOOD CULTURE No Growth after 5 days Normal [facility] Comment on above: Performed By: #### 4 [id number] ####[facility] [address] [address] Giorgio Williamson M.D. [id number] Bacteria identified Cx Nom ( Bld)on 02-04-2025 Interpretation and review of laboratory results Normal [facility] Basic metabolic 2000 panelon 02-04-2025 Anion gap [Moles/Vol] 15 mmol/L 10 - 2 0 mmol/L [facility] Calcium [Mass/Vol] 8.5 mg/dL 8.4 - 10. 2 mg/dL [facility] Chloride [Moles/Vol] 95 mmol/L Low 98 - 10 8 mmol/L [facility] Creatinine [Mass/Vol] 1.32 mg/dL High 0.80 - 1.30 mg/dL [facility] GFR/1.73 sq M.predicted CKD-EPI (S/P/Bld) [Vol rate/Area] 55 Low - PINF [facility] Glucose [Mass/Vol] 104 mg/dL High 65 - 99 mg/dL [facility] HCO3 [Moles/Vol] 27 mmol/L 21 - 32 mmol/L [facility] Potassium [Moles/Vol] 4.3 mmol/L 3.5 - 5.1 mmol/L [facility] Sodium [Moles/Vol] 133 mmol/L Low 135 - 145 mmol/L [facility] Urea nitrogen [Mass/Vol] 30 mg/dL High 8 - 25 mg/dL [facility] Urea nitrogen/Creatinine [Mass ratio] 22.7 mg/mg High 10.0 - 20.0 [facility] CBC Auto Differentialon 01-09 Erythrocyte distribution width (RBC) [Entitic vol] 14.5 % 11.6 - 14.8 % [facility] Hematocrit (Bld) [Volume fraction] 25.8 % Low 41.0 - 53.0 % [facility] Hemoglobin (Bld) [Mass/Vol] 8.2 g/dL Low 13.5 - 17.5 g/dL [facility] MCH (RBC) [Entitic mass] 26.3 pg 26.0 - 34.0 pg [facility] MCHC (RBC) [Mass/Vol] 31.8 g/dL 31.0 - 37.0 g/dL [facility] MCV (RBC) [Entitic vol] 82.7 fL 80.0 - 100.0 fL [facility] Nucleated RBC (Bld) [#/Vol] 0.05 10*3/uL High [facility] Nucleated RBC/100 WBC (Bld) [Ratio] 0.3 % [facility] Platelet mean volume (Bld) [Entitic vol] 8.9 fL Low 9.4 - 12.4 fL [facility] Platelets (Bld) [#/Vol] 211 10*3/uL [facility] RBC (Bld) [#/Vol] 3.12 10*6/uL Low [facility] ealth WBC (Bld) [#/Vol] 14.49 10*3/uL [facility] CBC WITH AUTO DIFFERENTIALon 02-04-2025 AUTO NRBC 0.3 % Normal [facility] Comment on above: Performed By: #### L [id number] #### LAB [address] [address] Yusuf Villaseñor M.D. [id number] AUTO NRBC ABS COUNT 0.05 K/mcL High 0.00-0.00 [facility] Comment on above: Performed By: #### L [id number] ####[facility] LAB [address] [address] Yusuf Villaseñor M.D. [id number] Erythrocyte distribution width (RBC) [Ratio] 14.5 % Normal 11.6-14.8 [facility] Comment on above: Performed By: #### L [id number] #### LAB [address] [address] Yusuf Villaseñor M.D. [id number] Hematocrit (Bld) [Volume fraction] 25.8 % Low 41.0-53.0 [facility] Comment on above: Performed By: #### L [id number] ####[facility] LAB [address] [address] Yusuf Villaseñor M.D. [id number] Hemoglobin (Bld) [Mass/Vol] 8.2 g/dL Low 13.5-17.5 [facility] Comment on above: Performed By: #### L [id number] #### LAB [address] [address] Yusuf Villaseñor M.D. [id number] MCH (RBC) [Entitic mass] 26.3 pg Normal 26.0-34.0 [facility] Comment on above: Performed By: #### L [id number] ####[facility] LAB [address] [place] [address] Yusuf Villaseñor M.D. [id number] MCV (RBC) [Entitic vol] 82.7 fL Normal 80.0-100.0 [facility] Comment on above: Performed By: #### L [id number] #### LAB [address] [place] [address] Yusuf Villaseñor M.D. [id number] MEAN CORPUSCULAR HEMOGLOBIN CONC 31.8 g/dL Normal 31.0-37.0 [facility] Comment on above: Performed By: #### L [id number] #### LAB [address] [address] Yusuf Villaseñor M.D. [id number] Platelet mean volume (Bld) [Entitic vol] 8.9 fL Low 9.4-12.4 [facility] Comment on above: Performed By: #### L [id number] ####[facility] LAB [address] [address] Yusuf Villaseñor M.D. [id number] Platelets (Bld) [#/Vol] 211 10*3/uL Normal 150-400 [facility] Comment on above: Performed By: #### L [id number] ####[facility] LAB [address] [address] Yusuf Villaseñor M.D. [id number] RBC (Bld) [#/Vol] 3.12 10*6/uL Low 4.50-5.90 [facility] Comment on above: Performed By: #### L [id number] ####[facility] LAB [address] [address] Yusuf Villaseñor M.D. [id number] WBC (Bld) [#/Vol] 14.49 10*3/uL High 4.50-11.00 [facility] Comment on above: Performed By: #### L [id number] ####[facility] LAB [address] [address] Yusuf Villaseñor M.D. [id number] CBC and Diff Morphologyon Platelets LM Ql (Bld) Normal Normal [facility] Polychromasia LM Ql (Bld) Moderate [facility] RBC morphology finding Nom (Bld) See Comment [facility] CONSULTon 02-04-2025 CONSULT Normal [facility] ECHOCARDIOGRAM TRANSESOPHAGE Antonia 02-04-2025 ECHOCARDIOGRAM TRANSESOPHAGEAL Normal [facility] Glucose (Bld) [Mass/Vol]on 0 02-04-2025 Glucose [Mass/Vol] 200 mg/dL High 65 - 99 mg/dL [facility] Interpretation and review of laboratory results Abnormal [facility] Glucose [Mass/Vol] 141 mg/dL High 65 - 99 mg/dL [facility] Interpretation and review of laboratory results Abnormal [facility] Glucose [Mass/Vol] 141 mg/dL High 65 - 99 mg/dL [facility] Interpretation and review of laboratory results Abnormal [facility] Glucose [Mass/Vol] 113 mg/dL High 65 - 99 mg/dL [facility] Interpretation and review of laboratory results Abnormal [facility] Glucose [Mass/Vol] 111 mg/dL High 65 - 99 mg/dL [facility] Interpretation and review of laboratory results Abnormal [facility] HEPATIC FUNCTION PANELon Albumin [Mass/Vol] 2.8 g/dL Low 3.2-5.2 [facility] Comment on above: Performed By: #### 4 5866 #### LAB [address] [address] Yusuf Villaseñor M.D. [id number] ALP [Catalytic activity/Vol] 106 U/L Normal 40-150 [facility] Comment on above: Performed By: #### 4 5866 #### LAB [address] [address] Yusuf Villaseñor M.D. [id number] ALT [Catalytic activity/Vol] 570 U/L High 0-50 U/L [facility] Comment on above: Performed By: #### 4 5866 #### LAB [address] [address] Yusuf Villaseñor M.D. [id number] AST [Catalytic activity/Vol] 81 U/L High 0-50 U/L [facility] Comment on above: Performed By: #### 4 5866 #### LAB [address] [address] Yusuf Villaseñor M.D. [id number] Bilirubin [Mass/Vol] 0.6 mg/dL Normal 0.0-1.3 [facility] Comment on above: Performed By: #### 4 5866 ####[facility] LAB [address] [id number] Yusuf Villaseñor M.D. [id number] Bilirubin.indirect [Mass/Vol] 0.4 mg/dL Normal 0.0-0.4 [facility] Comment on above: Performed By: #### 4 5866 #### LAB [address] [address] Yusuf Villaseñor M.D. [id number] Protein [Mass/Vol] 6.0 g/dL Normal 6.0-8.0 [facility] Comment on above: Performed By: #### 4 5866 #### LAB [address] [id number] Yusuf Villaseñor M.D. [id number] Hepatic function 2000 panelo n 02-04-2025 Albumin [Mass/Vol] 2.8 g/dL Low 3.2 - 5.2 g/dL [facility] ALP [Catalytic activity/Vol] 106 U/L 40 - 150 U/L [facility] ALT [Catalytic activity/Vol] 570 U/L High 0 - 50 U/L [facility] AST [Catalytic activity/Vol] 81 U/L High 0 - 50 U/L [facility] Bilirubin [Mass/Vol] 0.6 mg/dL 0.0 - 1 .3 mg/dL [facility] Bilirubin.conjugated [Mass/Vol] 0.4 mg/dL 0.0 - 0.4 mg/dL [facility] Protein [Mass/Vol] 6 g/dL 6.0 - 8.0 g/dL [facility] INR Coag (PPP) [Relative pily e]on 02-04-2025 Interpretation and review of laboratory results Abnormal [facility] PT Coag (PPP) [Time] 15.5 s High [facility] - Microbiology an d Antimicrobial susceptibilityon 02-04-2025 Bacteria identified Cx Nom (Bld) No Growth after 5 days [facility] MAGNESIUM LEVELon 02-04-2025 Magnesium [Mass/Vol] 1.9 mg/dL Normal 1.6-2.4 [facility] Comment on above: Performed By: #### 4 6109 #### LAB [address] [address] Yusuf Villaseñor M.D. [id number] MANUAL DIFFERENTIALon 2024 BASOPHILS - ABS (DIFF) 0.00 K/mcL Normal 0.00-0.30 [facility] Comment on above: Performed By: #### 4 [id number] #### LAB [address] [address] Yusuf Villaseñor M.D. [id number] BASOPHILS - REL (DIFF) 0.0 % Normal [facility] Comment on above: Performed By: #### 4 5456 #### LAB [address] [address] Yusuf Villaseñor M.D. [id number] EOSINOPHILS - ABS (DIFF) 0.29 K/mcL Normal 0.00-0.50 [facility] Comment on above: Performed By: #### 4 5456 #### LAB [address] [address] Yusuf Villaseñor M.D. [id number] EOSINOPHILS - REL (DIFF) 2.0 % [facility] Comment on above: Performed By: #### 4 5456 #### LAB [address] [address] Yusuf Villaseñor M.D. [id number] LYMPHOCYTES - ABS (DIFF) 1.59 K/mcL Normal 0.90-4.00 [facility] Comment on above: Performed By: #### 4 5456 #### LAB [address] [address] Yusuf Villaseñor M.D. [id number] LYMPHOCYTES - REL (DIFF) 11.0 % [facility] Comment on above: Performed By: #### 4 5456 #### LAB [address] [address] Yusuf Villaseñor M.D. [id number] METAMYELOCYTES-REL (DIFF) 8.0 % [facility] Comment on above: Performed By: #### 4 5481 #### LAB [address] [address] Yusuf Villaseñor M.D. [id number] MONOCYTES - ABS (DIFF) 0.87 K/mcL Normal 0.30-0.90 [facility] Comment on above: Performed By: #### 4 5456 #### LAB [address] [address] Yusuf Villaseñor M.D. [id number] MONOCYTES - REL (DIFF) 6.0 % Normal [facility] Comment on above: Performed By: #### 4 5456 #### LAB [address] [address] Yusuf Villaseñor M.D. [id number] MYELOCYTES RELATIVE PERCENT 2.0 % Normal [facility] Comment on above: Performed By: #### 4 5456 #### LAB [address] [address] Yusuf Villaseñor M.D. [id number] NEUTROPHILS - ABS (DIFF) 11.74 K/mcL High 1.70-7.00 [facility] Comment on above: Performed By: #### 4 [id number] #### LAB [address] [address] Yusuf Villaseñor M.D. [id number] NEUTROPHILS - REL (DIFF) 71.0 % [facility] Comment on above: Performed By: #### 4 [id number] #### LAB [address] [address] Yusuf Villaseñor M.D. [id number] MORPHOLOGYon 02-04-2025 PLATELET ESTIMATE Normal Normal [facility] Comment on above: Performed By: #### L [id number] #### LAB [address] [address] Yusuf Villaseñor M.D. [id number] POLY SCAN Moderate [facility] Comment on above: Performed By: #### L [id number] ####[facility] LAB [address] [address] Yusuf Villaseñor M.D. [id number] RBC MORPH SCAN See Comment [facility] Comment on above: Result Comment: RBC Indices confirmed with manual peripheral smear review. Performed By: #### L [id number] ####[facility] LAB [address] [address] Yusuf Villaseñor M.D. [id number] Magnesium Levelon 02-04-2025 Magnesium [Mass/Vol] 1.9 mg/dL 1.6 - 2 .4 mg/dL [facility] Magnesium [Mass/Vol]on 02-04 Interpretation and review of laboratory results Normal [facility] Manual Differential panel (B ld)on 02-04-2025 Basophils (Bld) [#/Vol] 0 10*3/uL [facility] Basophils/100 WBC (Bld) 0 % [facility] Eosinophils (Bld) [#/Vol] 0.29 10*3/uL [facility] Eosinophils/100 WBC (Bld) 2 % [facility] Lymphocytes (Bld) [#/Vol] 1.59 10*3/uL [facility] Lymphocytes/100 WBC (Bld) 11 % [facility] Metamyelocytes/100 WBC (Bld) 8 % [facility] Monocytes (Bld) [#/Vol] 0.87 10*3/uL [facility] Monocytes/100 WBC (Bld) 6 % [facility] Myelocytes/100 WBC (Bld) 2 % [facility] Neutrophils (Bld) [#/Vol] 11.74 10*3/uL High [facility] Neutrophils/100 WBC (Bld) 71 % [facility] No Panel Informationon 02-04 Interpretation and review of laboratory results Abnormal [facility] Interpretation and review of laboratory results Abnormal [facility] POC GLUCOSE - [facility] 025 Glucose [Mass/Vol] 200 mg/dL High 65-99 [facility] Glucose [Mass/Vol] 141 mg/dL High 65-99 [facility] Glucose [Mass/Vol] 141 mg/dL High 65-99 [facility] Glucose [Mass/Vol] 113 mg/dL High 65-99 [facility] Glucose [Mass/Vol] 111 mg/dL High 65-[address] [place] [address] PT/INRon 02-04-2025 INR Coag (PPP) [Relative time] 1.2 {INR} High 0.8 - 1.1 [facility] INR Coag (PPP) [Relative time] 1.2 {INR} High 0.8-1.1 [facility] Comment on above: Order Comment: Annie nicole the induction phase of oral anticoagulation, the INR may not reflect the anticoagulation status of the patient. Therapeutic ranges for INR's are:Most clinical situations: INR 2.0-3.0Mechanical Prosthetic Valve: INR 2.5-3.5Critical: INR >5.0 Performed By: #### 4 6391 #### LAB [address] [place], [place] [address] Yusuf Villaseñor M.D. [id number] PT Coag (PPP) [Time] 15.5 s High 11.8-14.3 [facility] Comment on above: Order Comment: Annie nicole the induction phase of oral anticoagulation, the INR may not reflect the anticoagulation status of the patient. Therapeutic ranges for INR's are:Most clinical situations: INR 2.0-3.0Mechanical Prosthetic Valve: INR 2.5-3.5Critical: INR >5.0 Performed By: #### 4 6391 #### LAB [address] [place], [place] [address] Yusuf Villaseñor M.D. [id number] Wound Aerobic And Anaerobic Cultureon 02-04-2025 Bacteria identified Aer cx Nom (Unsp spec) No Anaerobic Growth after 5 days [facility] Bacteria identified Aer cx Nom (Unsp spec) Moderate Growth Streptococcus agalactiae (Group B) Abnormal [facility] Interpretation and review of laboratory results Abnormal [facility] Microscopic observation Gram stain Nom (Unsp spec) Rare WBC [facility] Microscopic observation Gram stain Nom (Unsp spec) Many RBC [facility] Microscopic observation Gram stain Nom (Unsp spec) Positive [facility] BASIC METABOLIC PANELon 01-09 Anion gap [Moles/Vol] 14 mmol/L Normal 10-20 [facility] Comment on above: Order Comment: [facility] has implemented the eGFR calculation approach that does not have a coefficient for race that conforms to the NKF-ASN Task Force Recommendations. Performed By: #### 4 6124 #### LAB [address] [place], [place] [address] Yusuf Villaseñor M.D. [id number] Calcium [Mass/Vol] 8.5 mg/dL Normal 8.4-10.2 [facility] Comment on above: Order Comment: [facility] has implemented the eGFR calculation approach that does not have a coefficient for race that conforms to the NKF-ASN Task Force Recommendations. Performed By: #### 4 6124 #### LAB [address] [place], [place] [address] Yusuf Villaseñor M.D. [id number] Chloride [Moles/Vol] 93 mmol/L Low 98-108 [facility] Comment on above: Order Comment: [facility] has implemented the eGFR calculation approach that does not have a coefficient for race that conforms to the NKF-ASN Task Force Recommendations. Performed By: #### 4 6124 ####[facility] LAB [address] [address] Yusuf Villaseñor M.D. [id number] Creatinine [Mass/Vol] 1.50 mg/dL High 0.80-1.30 [facility] Comment on above: Order Comment: [facility] has implemented the eGFR calculation approach that does not have a coefficient for race that conforms to the NKF-ASN Task Force Recommendations. Performed By: #### 4 6124 #### LAB [address] [address] Yusuf Villaseñor M.D. [id number] EGFR 47 mL/min/1.73 m2 Low >=60 [facility] Comment on above: Order Comment: [facility] has implemented the eGFR calculation approach that does not have a coefficient for race that conforms to the NKF-ASN Task Force Recommendations. Result Comment: Aide mated GFR was calculated using the 2020 CKD-EPI creatinine equation. Performed By: #### 4 6124 ####[facility] LAB [address] [address] Yusuf Villaseñor M.D. [id number] Glucose [Mass/Vol] 69 mg/dL Normal 65-99 [facility] Comment on above: Order Comment: [facility] has implemented the eGFR calculation approach that does not have a coefficient for race that conforms to the NKF-ASN Task Force Recommendations. Performed By: #### 4 6124 #### LAB [address] [address] Yusuf Villaseñor M.D. [id number] HCO3 (Bld) [Moles/Vol] 28 mmol/L Normal 21-32 [facility] Comment on above: Order Comment: [facility] has implemented the eGFR calculation approach that does not have a coefficient for race that conforms to the NKF-ASN Task Force Recommendations. Performed By: #### 4 6124 #### LAB [address] [id number] Yusuf Villaseñor M.D. [id number] Potassium [Moles/Vol] 4.5 mmol/L Normal 3.5-5.1 [facility] Comment on above: Order Comment: [facility] has implemented the eGFR calculation approach that does not have a coefficient for race that conforms to the NKF-ASN Task Force Recommendations. Performed By: #### 4 6124 #### LAB [address] [address] Yusuf Villaseñor M.D. [id number] Sodium [Moles/Vol] 130 mmol/L Low 135-145 [facility] Comment on above: Order Comment: [facility] has implemented the eGFR calculation approach that does not have a coefficient for race that conforms to the NKF-ASN Task Force Recommendations. Performed By: #### 4 6124 #### LAB [address] [id number] Yusuf Villaseñor M.D. [id number] Urea nitrogen [Mass/Vol] 42 mg/dL High 8-25 [facility] Comment on above: Order Comment: [facility] has implemented the eGFR calculation approach that does not have a coefficient for race that conforms to the NKF-ASN Task Force Recommendations. Performed By: #### 4 6124 #### LAB [address] [address] Yusuf Villaseñor M.D. [id number] Urea nitrogen/Creatinine [Mass ratio] 28.0 mg/mg High 10.0-20.0 [facility] Comment on above: Order Comment: [facility] has implemented the eGFR calculation approach that does not have a coefficient for race that conforms to the NKF-ASN Task Force Recommendations. Performed By: #### 4 6124 ####[facility] LAB [address], [place] [address] Yusuf Villaseñor M.D. [id number] Basic metabolic 2000 panelon 02-03-2025 Anion gap [Moles/Vol] 14 mmol/L 10 - 2 0 mmol/L [facility] Calcium [Mass/Vol] 8.5 mg/dL 8.4 - 10. 2 mg/dL [facility] Chloride [Moles/Vol] 93 mmol/L Low 98 - 10 8 mmol/L [facility] Creatinine [Mass/Vol] 1.5 mg/dL High 0.80 - 1.30 mg/dL [facility] GFR/1.73 sq M.predicted CKD-EPI (S/P/Bld) [Vol rate/Area] 47 Low - PINF [facility] Glucose [Mass/Vol] 69 mg/dL 65 - 99 mg/dL [facility] HCO3 [Moles/Vol] 28 mmol/L 21 - 32 mmol/L [facility] Interpretation and review of laboratory results Abnormal [facility] Potassium [Moles/Vol] 4.5 mmol/L 3.5 - 5.1 mmol/L [facility] Sodium [Moles/Vol] 130 mmol/L Low 135 - 145 mmol/L [facility] Urea nitrogen [Mass/Vol] 42 mg/dL High 8 - 25 mg/dL [facility] Urea nitrogen/Creatinine [Mass ratio] 28 mg/mg High 10.0 - 20.0 [facility] CBC Auto Differentialon 01-09 Erythrocyte distribution width (RBC) [Entitic vol] 14.3 % 11.6 - 14.8 % [facility] Hematocrit (Bld) [Volume fraction] 26.7 % Low 41.0 - 53.0 % [facility] Hemoglobin (Bld) [Mass/Vol] 8.4 g/dL Low 13.5 - 17.5 g/dL [facility] MCH (RBC) [Entitic mass] 26.3 pg 26.0 - 34.0 pg [facility] MCHC (RBC) [Mass/Vol] 31.5 g/dL 31.0 - 37.0 g/dL [facility] MCV (RBC) [Entitic vol] 83.4 fL 80.0 - 100.0 fL [facility] Nucleated RBC (Bld) [#/Vol] 0.07 10*3/uL High [facility] Nucleated RBC/100 WBC (Bld) [Ratio] 0.4 % [facility] Platelet mean volume (Bld) [Entitic vol] 9.2 fL Low 9.4 - 12.4 fL [facility] Platelets (Bld) [#/Vol] 181 10*3/uL [facility] RBC (Bld) [#/Vol] 3.2 10*6/uL Low [facility] alth WBC (Bld) [#/Vol] 16.16 10*3/uL [facility] CBC WITH AUTO DIFFERENTIALon 02-03-2025 AUTO NRBC 0.4 % Normal [facility] Comment on above: Performed By: #### L [id number] #### LAB [address] [address] Yusuf Villaseñor M.D. [id number] AUTO NRBC ABS COUNT 0.07 K/mcL High 0.00-0.00 [facility] Comment on above: Performed By: #### L [id number] #### LAB [address] [address] Yusuf Villaseñor M.D. [id number] Erythrocyte distribution width (RBC) [Ratio] 14.3 % Normal 11.6-14.8 [facility] Comment on above: Performed By: #### L [id number] #### LAB [address] [address] Yusuf Villaseñor M.D. [id number] Hematocrit (Bld) [Volume fraction] 26.7 % Low 41.0-53.0 [facility] Comment on above: Performed By: #### L [id number] #### LAB [address] [address] Yusuf Villaseñor M.D. [id number] Hemoglobin (Bld) [Mass/Vol] 8.4 g/dL Low 13.5-17.5 [facility] Comment on above: Performed By: #### L [id number] #### LAB [address] [place] [address] Yusuf Villaseñor M.D. [id number] MCH (RBC) [Entitic mass] 26.3 pg Normal 26.0-34.0 [facility] Comment on above: Performed By: #### L [id number] #### LAB [address] [address] Yusuf Villaseñor M.D. [id number] MCV (RBC) [Entitic vol] 83.4 fL Normal 80.0-100.0 [facility] Comment on above: Performed By: #### L [id number] #### LAB [address] [address] Yusuf Villaseñor M.D. [id number] MEAN CORPUSCULAR HEMOGLOBIN CONC 31.5 g/dL Normal 31.0-37.0 [facility] Comment on above: Performed By: #### L [id number] #### LAB [address] [address] Yusuf Villaseñor M.D. [id number] Platelet mean volume (Bld) [Entitic vol] 9.2 fL Low 9.4-12.4 [facility] Comment on above: Performed By: #### L [id number] #### LAB [address] [address] Yusuf Villaseñor M.D. [id number] Platelets (Bld) [#/Vol] 181 10*3/uL Normal 150-400 [facility] Comment on above: Performed By: #### L [id number] #### LAB [address] [address] Yusuf Villaseñor M.D. [id number] RBC (Bld) [#/Vol] 3.20 10*6/uL Low 4.50-5.90 [facility] Comment on above: Performed By: #### L [id number] ####[facility] LAB [address] [address] Yusuf Villaseñor M.D. [id number] WBC (Bld) [#/Vol] 16.16 10*3/uL High 4.50-11.00 [facility] Comment on above: Performed By: #### L [id number] ####[facility] LAB [address] [address] Yusuf Villaseñor M.D. [id number] CBC and Diff Morphologyon Ovalocytes LM Ql (Bld) Few [facility] Platelets LM Ql (Bld) Normal Normal [facility] Polychromasia LM Ql (Bld) Few [facility] RBC morphology finding Nom (Bld) See Comment [facility] Glucose (Bld) [Mass/Vol]on 0 02-03-2025 Glucose [Mass/Vol] 136 mg/dL High 65 - 99 mg/dL [facility] Interpretation and review of laboratory results Abnormal [facility] Glucose [Mass/Vol] 200 mg/dL High 65 - 99 mg/dL [facility] Interpretation and review of laboratory results Abnormal [facility] Glucose [Mass/Vol] 224 mg/dL High 65 - 99 mg/dL [facility] Interpretation and review of laboratory results Abnormal [facility] Glucose [Mass/Vol] 73 mg/dL 65 - 99 mg/dL [facility] Interpretation and review of laboratory results Normal [facility] Glucose [Mass/Vol] 79 mg/dL 65 - 99 mg/dL [facility] Interpretation and review of laboratory results Normal [facility] HEPATIC FUNCTION PANELon Albumin [Mass/Vol] 2.7 g/dL Low 3.2-5.2 [facility] Comment on above: Performed By: #### 4 [id number] ####[facility] LAB [address], [place] [address] Yusuf Villaseñor M.D. [id number] ALP [Catalytic activity/Vol] 111 U/L Normal 40-150 [facility] Comment on above: Performed By: #### 4 [id number] ####[facility] LAB [address], [place] [address] Yusuf Villaseñor M.D. [id number] ALT [Catalytic activity/Vol] 841 U/L High 0-50 U/L [facility] Comment on above: Performed By: #### 4 [id number] ####[facility] LAB [address], [place] [address] Yusuf Villaseñor M.D. [id number] AST [Catalytic activity/Vol] 149 U/L High 0-50 U/L [facility] Comment on above: Performed By: #### 4 [id number] #### LAB [address] [address] Yusuf Villaseñor M.D. [id number] Bilirubin [Mass/Vol] 0.6 mg/dL Normal 0.0-1.3 [facility] Comment on above: Performed By: #### 4 [id number] #### LAB [address] [id number] Yusuf Villaseñor M.D. [id number] Bilirubin.indirect [Mass/Vol] 0.4 mg/dL Normal 0.0-0.4 [facility] Comment on above: Performed By: #### 4 [id number] #### LAB [address] [address] Yusuf Villaseñor M.D. [id number] Protein [Mass/Vol] 5.8 g/dL Low 6.0-8.0 [facility] Comment on above: Performed By: #### 4 [id number] #### LAB [address] [address] Yusuf Villaseñor M.D. [id number] Hepatic function 2000 panelo n 02-03-2025 Albumin [Mass/Vol] 2.7 g/dL Low 3.2 - 5.2 g/dL [facility] ALP [Catalytic activity/Vol] 111 U/L 40 - 150 U/L [facility] ALT [Catalytic activity/Vol] 841 U/L High 0 - 50 U/L [facility] AST [Catalytic activity/Vol] 149 U/L High 0 - 50 U/L [facility] Bilirubin [Mass/Vol] 0.6 mg/dL 0.0 - 1 .3 mg/dL [facility] Bilirubin.conjugated [Mass/Vol] 0.4 mg/dL 0.0 - 0.4 mg/dL [facility] Interpretation and review of laboratory results Abnormal [facility] Protein [Mass/Vol] 5.8 g/dL Low 6.0 - 8.0 g/dL [facility] INR Coag (PPP) [Relative pily e]on 02-03-2025 Interpretation and review of laboratory results Abnormal [facility] PT Coag (PPP) [Time] 16 s High [facility] MAGNESIUM LEVELon 02-03-2025 Magnesium [Mass/Vol] 2.0 mg/dL Normal 1.6-2.4 [facility] Comment on above: Performed By: #### 4 6109 #### LAB [address] [address] Yusuf Villaseñor M.D. [id number] MANUAL DIFFERENTIALon 2024 BASOPHILS - ABS (DIFF) 0.00 K/mcL Normal 0.00-0.30 [facility] Comment on above: Performed By: #### 4 [id number] #### LAB [address] [address] Yusuf Villaseñor M.D. [id number] BASOPHILS - REL (DIFF) 0.0 % Normal [facility] Comment on above: Performed By: #### 4 [id number] #### LAB [address] [address] Yusuf Villaseñor M.D. [id number] EOSINOPHILS - ABS (DIFF) 0.32 K/mcL Normal 0.00-0.50 [facility] Comment on above: Performed By: #### 4 [id number] #### LAB [address] [address] Yusuf Villaseñor M.D. [id number] EOSINOPHILS - REL (DIFF) 2.0 % Normal [facility] Comment on above: Performed By: #### 4 [id number] #### LAB [address] [address] Yusuf Villaseñor M.D. [id number] LYMPHOCYTES - ABS (DIFF) 2.10 K/mcL Normal 0.90-4.00 [facility] Comment on above: Performed By: #### 4 [id number] #### LAB [address] [address] Yusuf Villaseñor M.D. [id number] LYMPHOCYTES - REL (DIFF) 13.0 % Normal [facility] Comment on above: Performed By: #### 4 5403 #### LAB [address] [address] Yusuf Villaseñor M.D. [id number] METAMYELOCYTES-REL (DIFF) 3.0 % Normal [facility] Comment on above: Performed By: #### 4 [id number] #### LAB [address] [address] Yusuf Villaseñor M.D. [id number] MONOCYTES - ABS (DIFF) 1.45 K/mcL High 0.30-0.90 [facility] Comment on above: Performed By: #### 4 [id number] #### LAB [address] [address] Yusuf Villaseñor M.D. [id number] MONOCYTES - REL (DIFF) 9.0 % Normal [facility] Comment on above: Performed By: #### 4 [id number] #### LAB [address] [address] Yusuf Villaseñor M.D. [id number] MYELOCYTES RELATIVE PERCENT 2.0 % [facility] Comment on above: Performed By: #### 4 [id number] #### LAB [address] [address] Yusuf Villaseñor M.D. [id number] NEUTROPHILS - ABS (DIFF) 12.28 K/mcL High 1.70-7.00 [facility] Comment on above: Performed By: #### 4 [id number] #### LAB [address] [address] Yusuf Villaseñor M.D. [id number] NEUTROPHILS - REL (DIFF) 71.0 % Normal [facility] Comment on above: Performed By: #### 4 [id number] #### LAB [address] [address] Yusuf Villaseñor M.D. [id number] MORPHOLOGYon 02-03-2025 OVAL SCAN Few Normal [facility] Comment on above: Performed By: #### L [id number] ####[facility] LAB [address] [address] Yusuf Villaseñor M.D. [id number] PLATELET ESTIMATE Normal Normal [facility] Comment on above: Performed By: #### L [id number] ####[facility] LAB [address] [address] Yusuf Villaseñor M.D. [id number] POLY SCAN Few Normal [facility] Comment on above: Performed By: #### L [id number] ####[facility] LAB [address], [place] [address] Yusuf Villaseñor M.D. [id number] RBC MORPH SCAN See Comment Normal [facility] Comment on above: Result Comment: RBC Indices confirmed with manual peripheral smear review. Performed By: #### L [id number] ####[facility] LAB [address], [place] [address] Yusuf Villaseñor M.D. [id number] Magnesium Levelon 02-03-2025 Magnesium [Mass/Vol] 2 mg/dL 1.6 - 2 .4 mg/dL [facility] Magnesium [Mass/Vol]on 02-03 Interpretation and review of laboratory results Normal [facility] Manual Differential panel (B ld)on 02-03-2025 Basophils (Bld) [#/Vol] 0 10*3/uL [facility] Basophils/100 WBC (Bld) 0 % [facility] Eosinophils (Bld) [#/Vol] 0.32 10*3/uL [facility] Eosinophils/100 WBC (Bld) 2 % [facility] Lymphocytes (Bld) [#/Vol] 2.1 10*3/uL [facility] Lymphocytes/100 WBC (Bld) 13 % [facility] Metamyelocytes/100 WBC (Bld) 3 % [facility] Monocytes (Bld) [#/Vol] 1.45 10*3/uL High [facility] Monocytes/100 WBC (Bld) 9 % [facility] Myelocytes/100 WBC (Bld) 2 % [facility] Neutrophils (Bld) [#/Vol] 12.28 10*3/uL High [facility] Neutrophils/100 WBC (Bld) 71 % [facility] No Panel Informationon 02-03 Interpretation and review of laboratory results Abnormal [facility] POC GLUCOSE - Kiah 025 Glucose [Mass/Vol] 136 mg/dL High 65- [facility] Glucose [Mass/Vol] 200 mg/dL High 65- [facility] Glucose [Mass/Vol] 224 mg/dL High 65- [facility] Glucose [Mass/Vol] 73 mg/dL Normal 65-99 [facility] Glucose [Mass/Vol] 79 mg/dL Normal 65-99 [facility] PT/INRon 02-03-2025 INR Coag (PPP) [Relative time] 1.3 {INR} High 0.8 - 1.1 [facility] INR Coag (PPP) [Relative time] 1.3 {INR} High 0.8-1.1 [facility] Comment on above: Order Comment: Annie nicole the induction phase of oral anticoagulation, the INR may not reflect the anticoagulation status of the patient. Therapeutic ranges for INR's are:Most clinical situations: INR 2.0-3.0Mechanical Prosthetic Valve: INR 2.5-3.5Critical: INR >5.0 Performed By: #### 4 6391 #### LAB [address] [address] Yusuf Villaseñor M.D. [id number] PT Coag (PPP) [Time] 16.0 s High 11.8-14.3 [facility] Comment on above: Order Comment: Annie nicole the induction phase of oral anticoagulation, the INR may not reflect the anticoagulation status of the patient. Therapeutic ranges for INR's are:Most clinical situations: INR 2.0-3.0Mechanical Prosthetic Valve: INR 2.5-3.5Critical: INR >5.0 Performed By: #### 4 6391 #### LAB [address] [address] Yusuf Villaseñor M.D. [id number] APTT HEPARIN COVERAGEon 01-09 aPTT Coag (Bld) [Time] 32 s Normal 23-34 [facility] Comment on above: Order Comment: Thera peutic range for APTT's is 68 - 104 seconds Performed By: #### 4 6848 #### LAB [address], [place] [address] Yusuf Villaseñor M.D. [id number] APTT Heparin CoverageOrdered By: Luis Enrique Ricketts on 02-02-2025 aPTT Coag (Bld) [Time] 32 s [facility] Interpretation and review of laboratory results Normal [facility] BASIC METABOLIC PANELon 07-2 Anion gap [Moles/Vol] 17 mmol/L Normal 10-20 [facility] Comment on above: Order Comment: [facility] has implemented the eGFR calculation approach that does not have a coefficient for race that conforms to the NKF-ASN Task Force Recommendations. Performed By: #### 4 6124 #### LAB [address] [address] Yusuf Villaseñor M.D. [id number] Calcium [Mass/Vol] 8.5 mg/dL Normal 8.4-10.2 [facility] Comment on above: Order Comment: [facility] has implemented the eGFR calculation approach that does not have a coefficient for race that conforms to the NKF-ASN Task Force Recommendations. Performed By: #### 4 6124 #### LAB [address] [address] Yusuf Villaseñor M.D. [id number] Chloride [Moles/Vol] 96 mmol/L Low 98-108 [facility] Comment on above: Order Comment: [facility] has implemented the eGFR calculation approach that does not have a coefficient for race that conforms to the NKF-ASN Task Force Recommendations. Performed By: #### 4 6124 #### LAB [address] [address] Yusuf Villaseñor M.D. [id number] Creatinine [Mass/Vol] 1.95 mg/dL High 0.80-1.30 [facility] Comment on above: Order Comment: [facility] has implemented the eGFR calculation approach that does not have a coefficient for race that conforms to the NKF-ASN Task Force Recommendations. Performed By: #### 4 6124 #### LAB [address] [address] Yusuf Villaseñor M.D. [id number] EGFR 34 mL/min/1.73 m2 Low >=60 [facility] Comment on above: Order Comment: [facility] has implemented the eGFR calculation approach that does not have a coefficient for race that conforms to the NKF-ASN Task Force Recommendations. Result Comment: Aide mated GFR was calculated using the 2020 CKD-EPI creatinine equation. Performed By: #### 4 6186 #### LAB [address] [address] Yusuf Villaseñor M.D. [id number] Glucose [Mass/Vol] 50 mg/dL Off scale low 65-99 [facility] Comment on above: Order Comment: [facility] has implemented the eGFR calculation approach that does not have a coefficient for race that conforms to the NKF-ASN Task Force Recommendations. Performed By: #### 4 6116 #### LAB [address] [address] Yusuf Villaseñor M.D. [id number] HCO3 (Bld) [Moles/Vol] 27 mmol/L Normal 21-32 [facility] Comment on above: Order Comment: [facility] has implemented the eGFR calculation approach that does not have a coefficient for race that conforms to the NKF-ASN Task Force Recommendations. Performed By: #### 4 6111 #### LAB [address] [address] Yusuf Villaseñor M.D. [id number] Potassium [Moles/Vol] 3.7 mmol/L Normal 3.5-5.1 [facility] Comment on above: Order Comment: [facility] has implemented the eGFR calculation approach that does not have a coefficient for race that conforms to the NKF-ASN Task Force Recommendations. Performed By: #### 4 6159 #### LAB [address] [address] Yusuf Villaseñor M.D. [id number] Sodium [Moles/Vol] 136 mmol/L Normal 135-145 [facility] Comment on above: Order Comment: [facility] has implemented the eGFR calculation approach that does not have a coefficient for race that conforms to the NKF-ASN Task Force Recommendations. Performed By: #### 4 6101 #### LAB [address] [address] Yusuf Villaseñor M.D. [id number] Urea nitrogen [Mass/Vol] 61 mg/dL High 8-25 [facility] Comment on above: Order Comment: [facility] has implemented the eGFR calculation approach that does not have a coefficient for race that conforms to the NKF-ASN Task Force Recommendations. Performed By: #### 4 6124 #### LAB [address], [place] [address] Yusuf Villaseñor M.D. [id number] Urea nitrogen/Creatinine [Mass ratio] 31.3 mg/mg High 10.0-20.0 [facility] Comment on above: Order Comment: [facility] has implemented the eGFR calculation approach that does not have a coefficient for race that conforms to the NKF-ASN Task Force Recommendations. Performed By: #### 4 6124 #### LAB [address], [place] [address] Yusuf Villaseñor M.D. [id number] Basic metabolic 2000 panelon 02-02-2025 Anion gap [Moles/Vol] 17 mmol/L 10 - 2 0 mmol/L [facility] Calcium [Mass/Vol] 8.5 mg/dL 8.4 - 10. 2 mg/dL [facility] Chloride [Moles/Vol] 96 mmol/L Low 98 - 10 8 mmol/L [facility] Creatinine [Mass/Vol] 1.95 mg/dL High 0.80 - 1.30 mg/dL [facility] GFR/1.73 sq M.predicted CKD-EPI (S/P/Bld) [Vol rate/Area] 34 Low - PINF [facility] Glucose [Mass/Vol] 50 mg/dL Critically low 65 - 99 mg/dL [facility] HCO3 [Moles/Vol] 27 mmol/L 21 - 32 mmol/L [facility] Interpretation and review of laboratory results Abnormal [facility] Potassium [Moles/Vol] 3.7 mmol/L 3.5 - 5.1 mmol/L [facility] Sodium [Moles/Vol] 136 mmol/L 135 - 145 mmol/L [facility] Urea nitrogen [Mass/Vol] 61 mg/dL High 8 - 25 mg/dL [facility] Urea nitrogen/Creatinine [Mass ratio] 31.3 mg/mg High 10.0 - 20.[address] [facility] CBC Auto Differentialon 01-09 Erythrocyte distribution width (RBC) [Entitic vol] 14.2 % 11.6 - 14.8 % [facility] Hematocrit (Bld) [Volume fraction] 29.4 % Low 41.0 - 53.0 % [facility] Hemoglobin (Bld) [Mass/Vol] 9.4 g/dL Low 13.5 - 17.5 g/dL [facility] MCH (RBC) [Entitic mass] 26.6 pg 26.0 - 34.0 pg [facility] MCHC (RBC) [Mass/Vol] 32 g/dL 31.0 - 37.0 g/dL [facility] MCV (RBC) [Entitic vol] 83.1 fL 80.0 - 100.0 fL [facility] Nucleated RBC (Bld) [#/Vol] 0.04 10*3/uL High [facility] Nucleated RBC/100 WBC (Bld) [Ratio] 0.3 % [facility] Platelet mean volume (Bld) [Entitic vol] 9.3 fL Low 9.4 - 12.4 fL [facility] Platelets (Bld) [#/Vol] 174 10*3/uL [facility] RBC (Bld) [#/Vol] 3.54 10*6/uL Low [facility] W[facility] (Bld) [#/Vol] 15.6 10*3/uL High [facility] CBC WITH AUTO DIFFERENTIALon 02-02-2025 AUTO NRBC 0.3 % Normal [facility] Comment on above: Performed By: #### L [id number] ####[facility] LAB [address], [place] [address] Yusuf Villaseñor M.D. [id number] AUTO NRBC ABS COUNT 0.04 K/mcL High 0.00-0.00 [facility] Comment on above: Performed By: #### L [id number] ####[facility] LAB [address], [place] [address] Yusuf Villaseñor M.D. [id number] Erythrocyte distribution width (RBC) [Ratio] 14.2 % Normal 11.6-14.8 [facility] Comment on above: Performed By: #### L [id number] #### LAB [address], [place] [address] Yusuf Villaseñor M.D. [id number] Hematocrit (Bld) [Volume fraction] 29.4 % Low 41.0-53.0 [facility] Comment on above: Performed By: #### L [id number] #### LAB [address] [address] Yusuf Villaseñor M.D. [id number] Hemoglobin (Bld) [Mass/Vol] 9.4 g/dL Low 13.5-17.5 [facility] Comment on above: Performed By: #### L [id number] ####[facility] LAB [address] [address] Yusuf Villaseñor M.D. [id number] MCH (RBC) [Entitic mass] 26.6 pg Normal 26.0-34.0 [facility] Comment on above: Performed By: #### L [id number] #### LAB [address] [address] Yusuf Villaseñor M.D. [id number] MCV (RBC) [Entitic vol] 83.1 fL Normal 80.0-100.0 [facility] Comment on above: Performed By: #### L [id number] #### LAB [address] [address] Yusuf Villaseñor M.D. [id number] MEAN CORPUSCULAR HEMOGLOBIN CONC 32.0 g/dL Normal 31.0-37.0 [facility] Comment on above: Performed By: #### L [id number] #### LAB [address] [address] Yusuf Villaseñor M.D. [id number] Platelet mean volume (Bld) [Entitic vol] 9.3 fL Low 9.4-12.4 [facility] Comment on above: Performed By: #### L [id number] #### LAB [address] [address] Yusuf Villaseñor M.D. [id number] Platelets (Bld) [#/Vol] 174 10*3/uL Normal 150-400 [facility] Comment on above: Performed By: #### L [id number] #### LAB [address], [place] [address] Yusuf Villaseñor M.D. [id number] RBC (Bld) [#/Vol] 3.54 10*6/uL Low 4.50-5.90 [facility] Comment on above: Performed By: #### L [id number] ####[facility] LAB [address], [place] [address] Yusuf Villaseñor M.D. [id number] WBC (Bld) [#/Vol] 15.60 10*3/uL High 4.50-11.00 [facility] Comment on above: Performed By: #### L [id number] ####[facility] LAB [address] [address] Yusuf Villaseñor M.D. [id number] CBC and Diff Morphologyon Ovalocytes LM Ql (Bld) Few [facility] Platelets LM Ql (Bld) Normal Normal [facility] Polychromasia LM Ql (Bld) Few [facility] RBC morphology finding Nom (Bld) See Comment [facility] Glucose (Bld) [Mass/Vol]on 0 02-02-2025 Glucose [Mass/Vol] 196 mg/dL High 65 - 99 mg/dL [facility] Interpretation and review of laboratory results Abnormal [facility] Glucose [Mass/Vol] 119 mg/dL High 65 - 99 mg/dL [facility] Interpretation and review of laboratory results Abnormal [facility] Glucose [Mass/Vol] 200 mg/dL High 65 - 99 mg/dL [facility] Interpretation and review of laboratory results Abnormal [facility] Glucose [Mass/Vol] 216 mg/dL High 65 - 99 mg/dL [facility] Interpretation and review of laboratory results Abnormal [facility] Glucose [Mass/Vol] 304 mg/dL High 65 - 99 mg/dL [facility] Interpretation and review of laboratory results Abnormal [facility] Glucose [Mass/Vol] 242 mg/dL High 65 - 99 mg/dL [facility] Interpretation and review of laboratory results Abnormal [facility] Glucose [Mass/Vol] 30 mg/dL Critically low 65 - 99 mg/dL [facility] Interpretation and review of laboratory results Abnormal [facility] Glucose [Mass/Vol] 34 mg/dL Critically low 65 - 99 mg/dL [facility] Interpretation and review of laboratory results Abnormal [facility] Glucose [Mass/Vol] 44 mg/dL Critically low 65 - 99 mg/dL [facility] Interpretation and review of laboratory results Abnormal [facility] Glucose [Mass/Vol] 46 mg/dL Critically low 65 - 99 mg/dL [facility] Interpretation and review of laboratory results Abnormal [facility] Glucose [Mass/Vol] 62 mg/dL Low 65 - 99 mg/dL [facility] Interpretation and review of laboratory results Abnormal [facility] Glucose [Mass/Vol] 50 mg/dL Critically low 65 - 99 mg/dL [facility] Interpretation and review of laboratory results Abnormal [facility] HEMOGLOBIN AND HEMATOCRITon 02-02-2025 Hematocrit (Bld) [Volume fraction] 29.5 % Low 41.0-53.0 [facility] Comment on above: Performed By: #### 4 6909 ####[facility] LAB [address] [address] Yusuf Villaseñor M.D. [id number] Hemoglobin (Bld) [Mass/Vol] 9.4 g/dL Low 13.5-17.5 [facility] Comment on above: Performed By: #### 4 6909 ####[facility] LAB [address] [id number] Yusuf Villaseñor M.D. [id number] HEPATIC FUNCTION PANELon Albumin [Mass/Vol] 3.1 g/dL Low 3.2-5.2 [facility] Comment on above: Performed By: #### 4 5866 ####[facility] LAB [address], [place] [address] Yusuf Villaseñor M.D. [id number] ALP [Catalytic activity/Vol] 135 U/L Normal 40-150 [facility] Comment on above: Performed By: #### 4 5866 ####[facility] LAB [address], [place] [address] Yusuf Villaseñor M.D. [id number] ALT [Catalytic activity/Vol] 1371 U/L High 0-50 U/L [facility] Comment on above: Performed By: #### 4 5866 #### LAB [address] [address] Yusuf Villaseñor M.D. [id number] AST [Catalytic activity/Vol] 422 U/L High 0-50 U/L [facility] Comment on above: Performed By: #### 4 5866 #### LAB [address] [address] Yusuf Villaseñor M.D. [id number] Bilirubin [Mass/Vol] 0.9 mg/dL Normal 0.0-1.3 [facility] Comment on above: Performed By: #### 4 5866 #### LAB [address] [address] Yusuf Villaseñor M.D. [id number] Bilirubin.indirect [Mass/Vol] 0.6 mg/dL High 0.0-0.4 [facility] Comment on above: Performed By: #### 4 5866 #### LAB [address] [address] Yusuf Villaseñor M.D. [id number] Protein [Mass/Vol] 6.3 g/dL Normal 6.0-8.0 [facility] Comment on above: Performed By: #### 4 5866 #### LAB [address] [address] Yusuf Villaseñor M.D. [id number] Hemoglobin and Hematocrit pa karly (Bld)on 02-02-2025 Hematocrit (Bld) [Volume fraction] 29.5 % Low 41.0 - 53.0 % [facility] Hemoglobin (Bld) [Mass/Vol] 9.4 g/dL Low 13.5 - 17.5 g/dL [facility] Interpretation and review of laboratory results Abnormal [facility] Hepatic function 2000 panelo n 02-02-2025 Albumin [Mass/Vol] 3.1 g/dL Low 3.2 - 5.2 g/dL [facility] [facility] ALP [Catalytic activity/Vol] 135 U/L 40 - 150 U/L [facility] ALT [Catalytic activity/Vol] 1371 U/L High 0 - 50 U/L [facility] AST [Catalytic activity/Vol] 422 U/L High 0 - 50 U/L [facility] Bilirubin [Mass/Vol] 0.9 mg/dL 0.0 - 1 .3 mg/dL [facility] Bilirubin.conjugated [Mass/Vol] 0.6 mg/dL High 0.0 - 0.4 mg/dL [facility] Interpretation and review of laboratory results Abnormal [facility] Protein [Mass/Vol] 6.3 g/dL 6.0 - 8.0 g/dL [facility] INR Coag (PPP) [Relative pily e]on 02-02-2025 Interpretation and review of laboratory results Abnormal [facility] PT Coag (PPP) [Time] 16 s High [facility] MAGNESIUM LEVELon 02-02-2025 Magnesium [Mass/Vol] 2.2 mg/dL Normal 1.6-2.4 [facility] Comment on above: Performed By: #### 4 6109 #### LAB [address] [address] Yusuf Villaseñor M.D. [id number] Magnesium [Mass/Vol] 2.3 mg/dL Normal 1.6-2.4 [facility] Comment on above: Performed By: #### 4 6109 #### LAB [address] [address] Yusuf Villaseñor M.D. [id number] MANUAL DIFFERENTIALon 2024 BASOPHILS - ABS (DIFF) 0.00 K/mcL Normal 0.00-0.30 [facility] Comment on above: Performed By: #### 4 5456 #### LAB [address] [address] Yusuf Villaseñor M.D. [id number] BASOPHILS - REL (DIFF) 0.0 % Normal [facility] Comment on above: Performed By: #### 4 5456 #### LAB [address] [address] Yusuf Villaseñor M.D. [id number] EOSINOPHILS - ABS (DIFF) 0.31 K/mcL Normal 0.00-0.50 [facility] Comment on above: Performed By: #### 4 5456 #### LAB [address] [address] Yusuf Villaseñor M.D. [id number] EOSINOPHILS - REL (DIFF) 2.0 % [facility] Comment on above: Performed By: #### 4 [id number] #### LAB [address] [address] Yusuf Villaseñor M.D. [id number] LYMPHOCYTES - ABS (DIFF) 2.03 K/mcL Normal 0.90-4.00 [facility] Comment on above: Performed By: #### 4 5456 #### LAB [address] [address] Yusuf Villaseñor M.D. [id number] LYMPHOCYTES - REL (DIFF) 13.0 % Normal [facility] Comment on above: Performed By: #### 4 5456 #### LAB [address] [address] Yusuf Villaseñor M.D. [id number] METAMYELOCYTES-REL (DIFF) 2.0 % [facility] Comment on above: Performed By: #### 4 5456 #### LAB [address] [address] Yusuf Villaseñor M.D. [id number] MONOCYTES - ABS (DIFF) 1.25 K/mcL High 0.30-0.90 [facility] Comment on above: Performed By: #### 4 [id number] #### LAB [address] [address] Yusuf Villaseñor M.D. [id number] MONOCYTES - REL (DIFF) 8.0 % Normal [facility] Comment on above: Performed By: #### 4 5456 #### LAB [address] [address] Yusuf Villaseñor M.D. [id number] MYELOCYTES RELATIVE PERCENT 3.0 % [facility] Comment on above: Performed By: #### 4 5456 #### LAB [address] [address] Yusuf Villaseñor M.D. [id number] NEUTROPHILS - ABS (DIFF) 12.01 K/mcL High 1.70-7.00 [facility] Comment on above: Performed By: #### 4 8931 ####[facility] LAB [address] [place], [place] [address] Yusuf Villaseñor M.D. [id number] NEUTROPHILS - REL (DIFF) 72.0 % Normal [facility] Comment on above: Performed By: #### 4 5456 ####[facility] LAB [address] [id number] Yusuf Villaseñor M.D. [id number] MORPHOLOGYon 02-02-2025 OVAL SCAN Few Normal [facility] Comment on above: Performed By: #### L [id number] ####[facility] LAB [address] [address] Yusuf Villaseñor M.D. [id number] PLATELET ESTIMATE Normal Normal Normal [facility] Comment on above: Performed By: #### L [id number] ####[facility] LAB [address] [address] Yusuf Villaseñor M.D. [id number] POLY SCAN Few Normal [facility] Comment on above: Performed By: #### L [id number] ####[facility] LAB [address] [address] Yusuf Villaseñor M.D. [id number] RBC MORPH SCAN See Comment Normal [facility] Comment on above: Result Comment: RBC Indices confirmed with manual peripheral smear review. Performed By: #### L [id number] ####[facility] LAB [address] [id number] Yusuf Villaseñor M.D. [id number] Magnesium LevelOrdered By: Matilda Campos on 02-02-2025 Magnesium [Mass/Vol] 2.3 mg/dL 1.6 - 2 .4 mg/dL [facility] Magnesium Levelon 02-02-2025 Magnesium [Mass/Vol] 2.2 mg/dL 1.6 - 2 .4 mg/dL [facility] Magnesium [Mass/Vol]Ordered By: Grover Campos on 02-02-2025 Interpretation and review of laboratory results Normal [facility] Magnesium [Mass/Vol]on 02-02 Interpretation and review of laboratory results Normal [facility] Manual Differential panel (B ld)on 02-02-2025 Basophils (Bld) [#/Vol] 0 10*3/uL [facility] Basophils/100 WBC (Bld) 0 % [facility] Eosinophils (Bld) [#/Vol] 0.31 10*3/uL [facility] Eosinophils/100 WBC (Bld) 2 % [facility] Lymphocytes (Bld) [#/Vol] 2.03 10*3/uL [facility] Lymphocytes/100 WBC (Bld) 13 % [facility] Metamyelocytes/100 WBC (Bld) 2 % [facility] Monocytes (Bld) [#/Vol] 1.25 10*3/uL High [facility] Monocytes/100 WBC (Bld) 8 % [facility] Myelocytes/100 WBC (Bld) 3 % [facility] Neutrophils (Bld) [#/Vol] 12.01 10*3/uL High [facility] Neutrophils/100 WBC (Bld) 72 % [facility] No Panel Informationon 02-02 Interpretation and review of laboratory results Abnormal [facility] No Panel InformationOrdered By: Luis Enrique Ricketts on 02-02-2025 [facility] OCCULT BLOOD STOOL IMMUNOASS AY ([facility] ONLY)on 02-02-2025 OCCULT BLOOD STOOL IMMUNOASSAY ([facility] ONLY) Positive Abnormal Negative for Occult Blood [facility] Comment on above: Performed By: #### 4 8354 ####[facility] LAB [address] [place] [address] Yusuf Villaseñor M.D. [id number] Occult Blood Stool Immunoass ay ([facility] Only)Ordered By: Olivia Thacker on 02-02-2025 Hemoglobin.gastrointest inal Ql (Stl) Positive Abnormal Negative for Occult Blood [facility] Interpretation and review of laboratory results Abnormal [facility] POC GLUCOSE - Kiah 025 Glucose [Mass/Vol] 196 mg/dL High 65- [facility] Glucose [Mass/Vol] 119 mg/dL High 65- [facility] Glucose [Mass/Vol] 200 mg/dL High 65- [facility] Glucose [Mass/Vol] 216 mg/dL High 65- [facility] Glucose [Mass/Vol] 304 mg/dL High 65- [facility] Glucose [Mass/Vol] 242 mg/dL High 65-99 [facility] Glucose [Mass/Vol] 30 mg/dL Off scale low [address] Comment on above: Order Comment: Criti ian result acted upon time of test. Test performed at bedside. Glucose [Mass/Vol] 34 mg/dL Off scale low [address] [place] [address] Comment on above: Order Comment: Criti ian result acted upon time of test. Test performed at bedside. Glucose [Mass/Vol] 44 mg/dL Off scale low [address] [place] [address] Comment on above: Order Comment: Criti ian result acted upon time of test. Test performed at bedside. Glucose [Mass/Vol] 46 mg/dL Off scale [address] Comment on above: Order Comment: Criti ian result acted upon time of test. Test performed at bedside. Glucose [Mass/Vol] 62 mg/dL Low [address] [place] [address] Glucose [Mass/Vol] 50 mg/dL Off scale [address] Comment on above: Order Comment: Criti ian result acted upon time of test. Test performed at bedside. POTASSIUM LEVELon 02-02-2025 Potassium [Moles/Vol] 4.4 mmol/L Normal 3.5-5.1 [facility] Comment on above: Performed By: #### 4 6351 ####[facility] LAB [address] [address] Yusuf Villaseñor M.D. [id number] PT/INRon 02-02-2025 INR Coag (PPP) [Relative time] 1.3 {INR} High 0.8 - 1.1 [facility] INR Coag (PPP) [Relative time] 1.3 {INR} High 0.8-1.1 [facility] Comment on above: Order Comment: Annie nicole the induction phase of oral anticoagulation, the INR may not reflect the anticoagulation status of the patient. Therapeutic ranges for INR's are:Most clinical situations: INR 2.0-3.0Mechanical Prosthetic Valve: INR 2.5-3.5Critical: INR >5.0 Performed By: #### 4 6350 #### LAB [address] [address] Yusuf Villaseñor M.D. [id number] PT Coag (PPP) [Time] 16.0 s High 11.8-14.3 [facility] Comment on above: Order Comment: Annie nicole the induction phase of oral anticoagulation, the INR may not reflect the anticoagulation status of the patient. Therapeutic ranges for INR's are:Most clinical situations: INR 2.0-3.0Mechanical Prosthetic Valve: INR 2.5-3.5Critical: INR >5.0 Performed By: #### 4 6391 #### LAB [address] [place], [place] [address] Yusuf Villaseñor M.D. [id number] Potassium Levelon 02-02-2025 Potassium [Moles/Vol] 4.4 mmol/L 3.5 - 5.1 mmol/L [facility] Potassium [Moles/Vol]on 01-09 Interpretation and review of laboratory results Normal [facility] APTT HEPARIN COVERAGEon 01-09 aPTT Coag (Bld) [Time] 97 s High 23-34 [facility] Comment on above: Order Comment: 0400T herapeutic range for APTT's is 68 - 104 seconds Performed By: #### 4 6848 #### LAB [address] [id number] Yusuf Villaseñor M.D. [id number] APTT Heparin Coverageon 01-09 aPTT Coag (Bld) [Time] 97 s High [facility] Interpretation and review of laboratory results Abnormal [facility] BASIC METABOLIC PANELon 01-09 Anion gap [Moles/Vol] 18 mmol/L Normal 10-20 [facility] Comment on above: Order Comment: [facility] has implemented the eGFR calculation approach that does not have a coefficient for race that conforms to the NKF-ASN Task Force Recommendations. Performed By: #### 4 6124 #### LAB [address], [place] [address] Yusuf Villaseñor M.D. [id number] Calcium [Mass/Vol] 8.6 mg/dL Normal 8.4-10.2 [facility] Comment on above: Order Comment: [facility] has implemented the eGFR calculation approach that does not have a coefficient for race that conforms to the NKF-ASN Task Force Recommendations. Performed By: #### 4 6124 ####[facility] LAB [address], [place] [address] Yusuf Villaseñor M.D. [id number] Chloride [Moles/Vol] 94 mmol/L Low 98-108 [facility] Comment on above: Order Comment: [facility] has implemented the eGFR calculation approach that does not have a coefficient for race that conforms to the NKF-ASN Task Force Recommendations. Performed By: #### 4 6124 ####[facility] LAB [address] [address] Yusuf Villaseñor M.D. [id number] Creatinine [Mass/Vol] 2.53 mg/dL High 0.80-1.30 [facility] Comment on above: Order Comment: [facility] has implemented the eGFR calculation approach that does not have a coefficient for race that conforms to the NKF-ASN Task Force Recommendations. Performed By: #### 4 6124 #### LAB [address] [address] Yusuf Villaseñor M.D. [id number] EGFR 25 mL/min/1.73 m2 Low >=60 [facility] Comment on above: Order Comment: [facility] has implemented the eGFR calculation approach that does not have a coefficient for race that conforms to the NKF-ASN Task Force Recommendations. Result Comment: Aide mated GFR was calculated using the 2020 CKD-EPI creatinine equation. Performed By: #### 4 6184 ####[facility] LAB [address], [place] [address] Yusuf Villaseñor M.D. [id number] Glucose [Mass/Vol] 73 mg/dL Normal 65-99 [facility] Comment on above: Order Comment: [facility] has implemented the eGFR calculation approach that does not have a coefficient for race that conforms to the NKF-ASN Task Force Recommendations. Performed By: #### 4 6156 ####[facility] LAB [address] [id number] Yusuf Villaseñor M.D. [id number] HCO3 (Bld) [Moles/Vol] 25 mmol/L Normal 21-32 [facility] Comment on above: Order Comment: [facility] has implemented the eGFR calculation approach that does not have a coefficient for race that conforms to the NKF-ASN Task Force Recommendations. Performed By: #### 4 6124 #### LAB [address] [address] Yusuf Villaseñor M.D. [id number] Potassium [Moles/Vol] 3.7 mmol/L Normal 3.5-5.1 [facility] Comment on above: Order Comment: [facility] has implemented the eGFR calculation approach that does not have a coefficient for race that conforms to the NKF-ASN Task Force Recommendations. Performed By: #### 4 6124 #### LAB [address] [address] Yusuf Villaseñor M.D. [id number] Sodium [Moles/Vol] 133 mmol/L Low 135-145 [facility] Comment on above: Order Comment: [facility] has implemented the eGFR calculation approach that does not have a coefficient for race that conforms to the NKF-ASN Task Force Recommendations. Performed By: #### 4 6124 #### LAB [address] [address] Yusuf Villaseñor M.D. [id number] Urea nitrogen [Mass/Vol] 74 mg/dL High 8-25 [facility] Comment on above: Order Comment: [facility] has implemented the eGFR calculation approach that does not have a coefficient for race that conforms to the NKF-ASN Task Force Recommendations. Performed By: #### 4 6124 #### LAB [address] [address] Yusuf Villaseñor M.D. [id number] Urea nitrogen/Creatinine [Mass ratio] 29.2 mg/mg High 10.0-20.0 [facility] Comment on above: Order Comment: [facility] has implemented the eGFR calculation approach that does not have a coefficient for race that conforms to the NKF-ASN Task Force Recommendations. Performed By: #### 4 6124 ####[facility] LAB [address] [place], [place] [address] Yusuf Villaseñor M.D. [id number] Basic metabolic 2000 panelon 02-01-2025 Anion gap [Moles/Vol] 18 mmol/L 10 - 2 0 mmol/L [facility] Calcium [Mass/Vol] 8.6 mg/dL 8.4 - 10. 2 mg/dL [facility] Chloride [Moles/Vol] 94 mmol/L Low 98 - 10 8 mmol/L [facility] Creatinine [Mass/Vol] 2.53 mg/dL High 0.80 - 1.30 mg/dL [facility] GFR/1.73 sq M.predicted CKD-EPI (S/P/Bld) [Vol rate/Area] 25 Low - PINF [facility] Glucose [Mass/Vol] 73 mg/dL 65 - 99 mg/dL [facility] HCO3 [Moles/Vol] 25 mmol/L 21 - 32 mmol/L [facility] Interpretation and review of laboratory results Abnormal [facility] Potassium [Moles/Vol] 3.7 mmol/L 3.5 - 5.1 mmol/L [facility] Sodium [Moles/Vol] 133 mmol/L Low 135 - 145 mmol/L [facility] Urea nitrogen [Mass/Vol] 74 mg/dL High 8 - 25 mg/dL [facility] Urea nitrogen/Creatinine [Mass ratio] 29.2 mg/mg High 10.0 - 20.0 [facility] CBC Auto Differentialon 01-09 Basophils (Bld) [#/Vol] 0.07 10*3/uL [facility] Basophils/100 WBC (Bld) 0.4 % [facility] Eosinophils (Bld) [#/Vol] 0.24 10*3/uL [facility] Eosinophils/100 WBC (Bld) 1.4 % [facility] Erythrocyte distribution width (RBC) [Entitic vol] 14.3 % 11.6 - 14.8 % [facility] Hematocrit (Bld) [Volume fraction] 30 % Low 41.0 - 53.0 % [facility] Hemoglobin (Bld) [Mass/Vol] 9.8 g/dL Low 13.5 - 17.5 g/dL [facility] Immature granulocytes (Bld) [#/Vol] 0.4 10*3/uL High [facility] Immature granulocytes/100 WBC (Bld) 2.3 % [facility] Interpretation and review of laboratory results Abnormal [facility] Lymphocytes (Bld) [#/Vol] 2.38 10*3/uL [facility] Lymphocytes/100 WBC (Bld) 13.4 % [facility] MCH (RBC) [Entitic mass] 26.5 pg 26.0 - 34.0 pg [facility] MCHC (RBC) [Mass/Vol] 32.7 g/dL 31.0 - 37.0 g/dL [facility] MCV (RBC) [Entitic vol] 81.1 fL 80.0 - 100.0 fL [facility] Monocytes (Bld) [#/Vol] 1.5 10*3/uL High [facility] Monocytes/100 WBC (Bld) 8.5 % [facility] Neutrophils (Bld) [#/Vol] 13.16 10*3/uL High [facility] Neutrophils/100 WBC (Bld) 74 % [facility] Nucleated RBC (Bld) [#/Vol] 0.02 10*3/uL High [facility] Nucleated RBC/100 WBC (Bld) [Ratio] 0.1 % [facility] Platelet mean volume (Bld) [Entitic vol] 9.9 fL 9.4 - 12.4 fL [facility] Platelets (Bld) [#/Vol] 168 10*3/uL [facility] RBC (Bld) [#/Vol] 3.7 10*6/uL Low [facility] alth WBC (Bld) [#/Vol] 17.75 10*3/uL [facility] CBC WITH AUTO DIFFERENTIALon 02-01-2025 AUTO NRBC 0.1 % Normal [facility] Comment on above: Performed By: #### L [id number] #### LAB [address] [place], [place] [address] Yusuf Villaseñor M.D. [id number] AUTO NRBC ABS COUNT 0.02 K/mcL High 0.00-0.00 [facility] Comment on above: Performed By: #### L [id number] #### LAB [address] [address] Yusuf Villaseñor M.D. [id number] BASOPHILS ABSOLUTE COUNT 0.07 K/mcL Normal 0.00-0.30 [facility] Comment on above: Performed By: #### L [id number] #### LAB [address] [address] Yusuf Villaseñor M.D. [id number] Basophils/100 WBC (Bld) 0.4 % Normal [facility] Comment on above: Performed By: #### L [id number] #### LAB [address] [address] Yusuf Villaseñor M.D. [id number] Eosinophils (Bld) [#/Vol] 0.24 10*3/uL Normal 0.00-0.50 [facility] Comment on above: Performed By: #### L [id number] #### LAB [address] [place] [address] Yusuf Villaseñor M.D. [id number] Eosinophils/100 WBC (Bld) 1.4 % Normal [facility] Comment on above: Performed By: #### L [id number] #### LAB [address] [place] [address] Yusuf Villaseñor M.D. [id number] Erythrocyte distribution width (RBC) [Ratio] 14.3 % Normal 11.6-14.8 [facility] Comment on above: Performed By: #### L [id number] #### LAB [address] [place] [address] Yusuf Villaseñor M.D. [id number] Hematocrit (Bld) [Volume fraction] 30.0 % Low 41.0-53.0 [facility] Comment on above: Performed By: #### L [id number] #### LAB [address] [address] Yusuf Villaseñor M.D. [id number] Hemoglobin (Bld) [Mass/Vol] 9.8 g/dL Low 13.5-17.5 [facility] Comment on above: Performed By: #### L [id number] #### LAB [address] [place] [address] Yusuf Villaseñor M.D. [id number] IG ABSOLUTE 0.40 K/mcL High 0.00-0.30 [facility] Comment on above: Performed By: #### L [id number] #### LAB [address] [address] Yusuf Villaseñor M.D. [id number] IG PERCENT 2.30 % Normal [facility] Comment on above: Result Comment: The IG parameter is the percentage of metamyelocytes, myelocytes and promyelocytes. An immature granulocyte count (IG) of 1% or more suggests the possibility of infection, an IG count of 3% is very likely related to an infection. Performed By: #### L [id number] #### LAB [address] [address] Yusuf Villaseñor M.D. [id number] Lymphocytes (Bld) [#/Vol] 2.38 10*3/uL Normal 0.90-4.00 [facility] Comment on above: Performed By: #### L [id number] #### LAB [address] [address] Yusuf Villaseñor M.D. [id number] Lymphocytes/100 WBC (Bld) 13.4 % [facility] Comment on above: Performed By: #### L [id number] #### LAB [address] [address] Yusuf Villaseñor M.D. [id number] MCH (RBC) [Entitic mass] 26.5 pg Normal 26.0-34.0 [facility] Comment on above: Performed By: #### L [id number] #### LAB [address] [address] Yusuf Villaseñor M.D. [id number] MCV (RBC) [Entitic vol] 81.1 fL Normal 80.0-100.0 [facility] Comment on above: Performed By: #### L [id number] #### LAB [address] [address] Yusuf Villaseñor M.D. [id number] MEAN CORPUSCULAR HEMOGLOBIN CONC 32.7 g/dL Normal 31.0-37.0 [facility] Comment on above: Performed By: #### L [id number] #### LAB [address] [address] Yusuf Villaseñor M.D. [id number] Monocytes (Bld) [#/Vol] 1.50 10*3/uL High 0.30-0.90 [facility] Comment on above: Performed By: #### L [id number] #### LAB [address] [address] Yusuf Villaseñor M.D. [id number] Monocytes/100 WBC (Bld) 8.5 % Normal [facility] Comment on above: Performed By: #### L [id number] #### LAB [address] [address] Yusuf Villaseñor M.D. [id number] NEUTROPHILS ABSOLUTE COUNT 13.16 K/mcL High 1.70-7.00 [facility] Comment on above: Performed By: #### L [id number] #### LAB [address] [address] Yusuf Villaseñor M.D. [id number] Neutrophils/100 WBC (Bld) 74.0 % Normal [facility] Comment on above: Performed By: #### L [id number] #### LAB [address] [place] [address] Yusuf Villaseñor M.D. [id number] Platelet mean volume (Bld) [Entitic vol] 9.9 fL Normal 9.4-12.4 [facility] Comment on above: Performed By: #### L [id number] #### LAB [address] [address] Yusuf Villaseñor M.D. [id number] Platelets (Bld) [#/Vol] 168 10*3/uL Normal 150-400 [facility] Comment on above: Performed By: #### L [id number] #### LAB [address] [place] [address] Yusuf Villaseñor M.D. [id number] RBC (Bld) [#/Vol] 3.70 10*6/uL Low 4.50-5.90 [facility] Comment on above: Performed By: #### L [id number] ####[facility] [address] [place], [place] [address] Yusuf Villaseñor M.D. [id number] WBC (Bld) [#/Vol] 17.75 10*3/uL High 4.50-11.00 [facility] Comment on above: Performed By: #### L [id number] ####[facility] [address] [place], [place] [address] Yusuf Villaseñor M.D. [id number] Glucose (Bld) [Mass/Vol]on 0 02-01-2025 Glucose [Mass/Vol] 80 mg/dL 65 - 99 mg/dL [facility] Interpretation and review of laboratory results Normal [facility] Glucose [Mass/Vol] 104 mg/dL High 65 - 99 mg/dL [facility] Interpretation and review of laboratory results Abnormal [facility] Glucose [Mass/Vol] 88 mg/dL 65 - 99 mg/dL [facility] Interpretation and review of laboratory results Normal [facility] Glucose [Mass/Vol] 96 mg/dL 65 - 99 mg/dL [facility] Interpretation and review of laboratory results Normal [facility] Glucose [Mass/Vol] 99 mg/dL 65 - 99 mg/dL [facility] Interpretation and review of laboratory results Normal [facility] Glucose [Mass/Vol] 83 mg/dL 65 - 99 mg/dL [facility] Interpretation and review of laboratory results Normal [facility] HEPATIC FUNCTION PANELon Albumin [Mass/Vol] 3.0 g/dL Low 3.2-5.2 [facility] Comment on above: Performed By: #### 4 5866 ####[facility] [address] [id number] Yusuf Villaseñor M.D. [id number] ALP [Catalytic activity/Vol] 147 U/L Normal 40-150 [facility] Comment on above: Performed By: #### 4 5866 ####[facility] [address] [address] Yusuf Villaseñor M.D. [id number] ALT [Catalytic activity/Vol] 2070 U/L High 0-50 U/L [facility] Comment on above: Performed By: #### 4 5866 #### LAB [address] [address] Yusuf Villaseñor M.D. [id number] AST [Catalytic activity/Vol] 1257 U/L High 0-50 U/L [facility] Comment on above: Performed By: #### 4 5866 #### LAB [address] [address] Yusuf Villaseñor M.D. [id number] Bilirubin [Mass/Vol] 0.9 mg/dL Normal 0.0-1.3 [facility] Comment on above: Performed By: #### 4 5866 #### LAB [address] [address] Yusuf Villaseñor M.D. [id number] Bilirubin.indirect [Mass/Vol] 0.6 mg/dL High 0.0-0.4 [facility] Comment on above: Performed By: #### 4 5866 #### LAB [address] [address] Yusuf Villaseñor M.D. [id number] Protein [Mass/Vol] 6.3 g/dL Normal 6.0-8.0 [facility] Comment on above: Performed By: #### 4 [id number] #### LAB [address] [id number] Yusuf Villaseñor M.D. [id number] Hepatic function 2000 panelo n 02-01-2025 Albumin [Mass/Vol] 3 g/dL Low 3.2 - 5.2 g/dL [facility] ALP [Catalytic activity/Vol] 147 U/L 40 - 150 U/L [facility] ALT [Catalytic activity/Vol] 2070 U/L High 0 - 50 U/L [facility] AST [Catalytic activity/Vol] 1257 U/L High 0 - 50 U/L [facility] Bilirubin [Mass/Vol] 0.9 mg/dL 0.0 - 1 .3 mg/dL [facility] Bilirubin.conjugated [Mass/Vol] 0.6 mg/dL High 0.0 - 0.4 mg/dL [facility] Interpretation and review of laboratory results Abnormal [facility] Protein [Mass/Vol] 6.3 g/dL 6.0 - 8.0 g/dL [facility] INR Coag (PPP) [Relative pily e]on 02-01-2025 Interpretation and review of laboratory results Abnormal [facility] PT Coag (PPP) [Time] 18.5 s High [facility] MAGNESIUM LEVELon 02-01-2025 Magnesium [Mass/Vol] 1.9 mg/dL Normal 1.6-2.4 [facility] Comment on above: Performed By: #### 4 [id number] ####[facility] LAB [address], [place] [address] Yusuf Villaseñor M.D. [id number] Magnesium Levelon 02-01-2025 Magnesium [Mass/Vol] 1.9 mg/dL 1.6 - 2 .4 mg/dL [facility] Magnesium [Mass/Vol]on 02-01 Interpretation and review of laboratory results Normal [facility] No Panel Informationon 02-01 [facility] OP NOTEon 02-01-2025 OP NOTE Normal [facility] POC GLUCOSE - [facility] 025 Glucose [Mass/Vol] 80 mg/dL Normal 65-99 [facility] Glucose [Mass/Vol] 104 mg/dL High 65-99 [facility] Glucose [Mass/Vol] 88 mg/dL Normal 65-99 [facility] Glucose [Mass/Vol] 96 mg/dL Normal 65-99 [facility] Glucose [Mass/Vol] 99 mg/dL Normal 65-99 [facility] Glucose [Mass/Vol] 83 mg/dL Normal 65-99 [facility] POTASSIUM LEVELon 02-01-2025 Potassium [Moles/Vol] 4.2 mmol/L Normal 3.5-5.1 [facility] Comment on above: Order Comment: 1000 Performed By: #### 4 6351 ####[facility] LAB [address], [place] [address] Yusuf Villaseñor M.D. [id number] PT/INRon 02-01-2025 INR Coag (PPP) [Relative time] 1.5 {INR} High 0.8 - 1.1 [facility] INR Coag (PPP) [Relative time] 1.5 {INR} High 0.8-1.1 [facility] Comment on above: Order Comment: Annie nicole the induction phase of oral anticoagulation, the INR may not reflect the anticoagulation status of the patient. Therapeutic ranges for INR's are:Most clinical situations: INR 2.0-3.0Mechanical Prosthetic Valve: INR 2.5-3.5Critical: INR >5.0 Performed By: #### 4 6391 ####[facility] LAB [address] [address] Yusuf Villaseñor M.D. [id number] PT Coag (PPP) [Time] 18.5 s High 11.8-14.3 [facility] Comment on above: Order Comment: Annie nicole the induction phase of oral anticoagulation, the INR may not reflect the anticoagulation status of the patient. Therapeutic ranges for INR's are:Most clinical situations: INR 2.0-3.0Mechanical Prosthetic Valve: INR 2.5-3.5Critical: INR >5.0 Performed By: #### 4 [id number] ####[facility] [address] [address] Yusuf Villaseñor M.D. [id number] Potassium Levelon 02-01-2025 Potassium [Moles/Vol] 4.2 mmol/L 3.5 - 5.1 mmol/L [facility] Potassium [Moles/Vol]on 01-09 Interpretation and review of laboratory results Normal [facility] SURGICAL SITE AEROBIC AND AN AEROBIC CULTUREon 02-01-2025 SURGICAL SITE AEROBIC AND ANAEROBIC CULTURE Abnormal [facility] Comment on above: Performed By: #### L [id number] ####[facility] [place], [place] [address] Giorgio Williamson M.D. [id number] TROPONIN (ONCE)on 02-01-2025 BASELINE TROPONIN T NG/L 721 ng/L Off scale high <=22 [facility] Comment on above: Performed By: #### L [id number] ####[facility] [address] [address] Yusuf Villaseñor M.D. [id number] TROPONIN T INTERPRETATION Possible acute cardiac injury. Normal [facility] Comment on above: Performed By: #### L [id number] ####[facility] [address] [address] Yusuf Villaseñor M.D. [id number] Troponin (Once)Ordered By: Robby Wood on 02-01-2025 Interpretation and review of laboratory results Abnormal [facility] Troponin T 721 ng/L Critically high NINF - 22 ng/L [facility] Troponin T Interpretation Possible acute cardiac injury. [facility] APTT HEPARIN COVERAGEon 01-09 aPTT Coag (Bld) [Time] 98 s High 23-34 [facility] Comment on above: Order Comment: Thera peutic range for APTT's is 68 - 104 seconds Performed By: #### 4 [id number] ####[facility] [address] [address] Yusuf Villaseñor M.D. [id number] aPTT Coag (Bld) [Time] 107 s High 23-34 [facility] Comment on above: Order Comment: Thera peutic range for APTT's is 68 - 104 seconds Performed By: #### 4 [id number] ####[facility] [address] [address] Yusuf Villaseñor M.D. [id number] aPTT Coag (Bld) [Time] 66 s High 23-34 [facility] Comment on above: Order Comment: Thera peutic range for APTT's is 68 - 104 seconds Performed By: #### 4 [id number] ####[facility] [address] [address] Yusuf Villaseñor M.D. [id number] APTT Heparin Coverageon 01-09 aPTT Coag (Bld) [Time] 98 s High [facility] Interpretation and review of laboratory results Abnormal [facility] aPTT Coag (Bld) [Time] 107 s High [facility] Interpretation and review of laboratory results Abnormal [facility] APTT Heparin CoverageOrdered By: Daisy Méndez on 01-31-2025 aPTT Coag (Bld) [Time] 66 s High [facility] BASIC METABOLIC PANELon 01-09 Anion gap [Moles/Vol] 19 mmol/L Normal 10-20 [facility] Comment on above: Order Comment: [facility] has implemented the eGFR calculation approach that does not have a coefficient for race that conforms to the NKF-ASN Task Force Recommendations. Performed By: #### 4 6124 #### LAB [address] [address] Yusuf Villaseñor M.D. [id number] Calcium [Mass/Vol] 8.0 mg/dL Low 8.4-10.2 [facility] Comment on above: Order Comment: [facility] has implemented the eGFR calculation approach that does not have a coefficient for race that conforms to the NKF-ASN Task Force Recommendations. Performed By: #### 4 6124 #### LAB [address] [address] Yusuf Villaseñor M.D. [id number] Chloride [Moles/Vol] 97 mmol/L Low 98-108 [facility] Comment on above: Order Comment: [facility] has implemented the eGFR calculation approach that does not have a coefficient for race that conforms to the NKF-ASN Task Force Recommendations. Performed By: #### 4 6124 #### LAB [address] [address] Yusuf Villaseñor M.D. [id number] Creatinine [Mass/Vol] 3.06 mg/dL High 0.80-1.30 [facility] Comment on above: Order Comment: [facility] has implemented the eGFR calculation approach that does not have a coefficient for race that conforms to the NKF-ASN Task Force Recommendations. Performed By: #### 4 6124 #### LAB [address] [address] Yusuf Villaseñor M.D. [id number] EGFR 20 mL/min/1.73 m2 Low >=60 [facility] Comment on above: Order Comment: [facility] has implemented the eGFR calculation approach that does not have a coefficient for race that conforms to the NKF-ASN Task Force Recommendations. Result Comment: Aide mated GFR was calculated using the 2020 CKD-EPI creatinine equation. Performed By: #### 4 6124 #### LAB [address] [address] Yusuf Villaseñor M.D. [id number] Glucose [Mass/Vol] 103 mg/dL High 65-99 [facility] Comment on above: Order Comment: [facility] has implemented the eGFR calculation approach that does not have a coefficient for race that conforms to the NKF-ASN Task Force Recommendations. Performed By: #### 4 6183 #### LAB [address] [address] Yusuf Villaseñor M.D. [id number] HCO3 (Bld) [Moles/Vol] 19 mmol/L Low 21-32 [facility] Comment on above: Order Comment: [facility] has implemented the eGFR calculation approach that does not have a coefficient for race that conforms to the NKF-ASN Task Force Recommendations. Performed By: #### 4 6124 #### LAB [address] [address] Yusuf Villaseñor M.D. [id number] Potassium [Moles/Vol] 4.2 mmol/L Normal 3.5-5.1 [facility] Comment on above: Order Comment: [facility] has implemented the eGFR calculation approach that does not have a coefficient for race that conforms to the NKF-ASN Task Force Recommendations. Performed By: #### 4 6105 ####[facility] [address] [address] Yusuf Villaseñor M.D. [id number] Sodium [Moles/Vol] 131 mmol/L Low 135-145 [facility] Comment on above: Order Comment: [facility] has implemented the eGFR calculation approach that does not have a coefficient for race that conforms to the NKF-ASN Task Force Recommendations. Performed By: #### 4 6123 #### LAB [address], [place] [address] Yusuf Villaseñor M.D. [id number] Urea nitrogen [Mass/Vol] 81 mg/dL High 8- [facility] Comment on above: Order Comment: [facility] has implemented the eGFR calculation approach that does not have a coefficient for race that conforms to the NKF-ASN Task Force Recommendations. Performed By: #### 4 6124 #### LAB [address] [address] Yusuf Villaseñor M.D. [id number] Urea nitrogen/Creatinine [Mass ratio] 26.5 mg/mg High 10.0-20.0 [facility] Comment on above: Order Comment: [facility] has implemented the eGFR calculation approach that does not have a coefficient for race that conforms to the NKF-ASN Task Force Recommendations. Performed By: #### 4 6124 #### LAB [address] [address] Yusuf Villaseñor M.D. [id number] Bacteria identified Cx Nom ( Bld)on 01-31-2025 Gram Stain Result Positive Abnormal [facility] Interpretation and review of laboratory results Abnormal [facility] Basic metabolic 2000 panelon 01-31-2025 Anion gap [Moles/Vol] 19 mmol/L 10 - 2 0 mmol/L [facility] Calcium [Mass/Vol] 8 mg/dL Low 8.4 - 10. 2 mg/dL [facility] Chloride [Moles/Vol] 97 mmol/L Low 98 - 10 8 mmol/L [facility] Creatinine [Mass/Vol] 3.06 mg/dL High 0.80 - 1.30 mg/dL [facility] GFR/1.73 sq M.predicted CKD-EPI (S/P/Bld) [Vol rate/Area] 20 Low - PINF [facility] Glucose [Mass/Vol] 103 mg/dL High 65 - 99 mg/dL [facility] HCO3 [Moles/Vol] 19 mmol/L Low 21 - 32 mmol/L [facility] Interpretation and review of laboratory results Abnormal [facility] Potassium [Moles/Vol] 4.2 mmol/L 3.5 - 5.1 mmol/L [facility] Sodium [Moles/Vol] 131 mmol/L Low 135 - 145 mmol/L [facility] Urea nitrogen [Mass/Vol] 81 mg/dL High 8 - 25 mg/dL [facility] Urea nitrogen/Creatinine [Mass ratio] 26.5 mg/mg High 10.0 - 20.[address] [facility] Blood Culture Aerobic/Anaero bicon 01-31-2025 Bacteria identified Cx Nom (Bld) Streptococcus agalactiae (Group B) Abnormal [facility] CBC Auto Differentialon 01-09 Basophils (Bld) [#/Vol] 0.05 10*3/uL [facility] Basophils/100 WBC (Bld) 0.3 % [facility] Eosinophils (Bld) [#/Vol] 0.1 10*3/uL [facility] Eosinophils/100 WBC (Bld) 0.6 % [facility] Erythrocyte distribution width (RBC) [Entitic vol] 14.6 % 11.6 - 14.8 % [facility] Hematocrit (Bld) [Volume fraction] 28.8 % Low 41.0 - 53.0 % [facility] Hemoglobin (Bld) [Mass/Vol] 9.2 g/dL Low 13.5 - 17.5 g/dL [facility] Immature granulocytes (Bld) [#/Vol] 0.24 10*3/uL [facility] Immature granulocytes/100 WBC (Bld) 1.4 % [facility] Interpretation and review of laboratory results Abnormal [facility] Lymphocytes (Bld) [#/Vol] 1.39 10*3/uL [facility] Lymphocytes/100 WBC (Bld) 7.9 % [facility] MCH (RBC) [Entitic mass] 26.6 pg 26.0 - 34.0 pg [facility] MCHC (RBC) [Mass/Vol] 31.9 g/dL 31.0 - 37.0 g/dL [facility] MCV (RBC) [Entitic vol] 83.2 fL 80.0 - 100.0 fL [facility] Monocytes (Bld) [#/Vol] 1.13 10*3/uL High [facility] Monocytes/100 WBC (Bld) 6.4 % [facility] Neutrophils (Bld) [#/Vol] 14.71 10*3/uL High [facility] Neutrophils/100 WBC (Bld) 83.4 % [facility] Nucleated RBC (Bld) [#/Vol] 0.03 10*3/uL High [facility] Nucleated RBC/100 WBC (Bld) [Ratio] 0.2 % [facility] Platelet mean volume (Bld) [Entitic vol] 9.4 fL 9.4 - 12.4 fL [facility] Platelets (Bld) [#/Vol] 146 10*3/uL Low [facility] RBC (Bld) [#/Vol] 3.46 10*6/uL Low [facility] ealt WBC (Bld) [#/Vol] 17.62 10*3/uL High [facility] CBC WITH AUTO DIFFERENTIALon 01-31-2025 AUTO NRBC 0.2 % [facility] Comment on above: Performed By: #### L [id number] #### LAB [address] [place] [address] Yusuf Villaseñor M.D. [id number] AUTO NRBC ABS COUNT 0.03 K/mcL High 0.00-0.00 [facility] Comment on above: Performed By: #### L [id number] #### LAB [address] [place] [address] Yusuf Villaseñor M.D. [id number] BASOPHILS ABSOLUTE COUNT 0.05 K/mcL Normal 0.00-0.30 [facility] Comment on above: Performed By: #### L [id number] #### LAB [address] [place] [address] Yusuf Villaseñor M.D. [id number] Basophils/100 WBC (Bld) 0.3 % [facility] Comment on above: Performed By: #### L [id number] #### LAB [address] [place] [address] Yusuf Villaseñor M.D. [id number] Eosinophils (Bld) [#/Vol] 0.10 10*3/uL Normal 0.00-0.50 [facility] Comment on above: Performed By: #### L [id number] #### LAB [address] [place] [address] Yusuf Villaseñor M.D. [id number] Eosinophils/100 WBC (Bld) 0.6 % [facility] Comment on above: Performed By: #### L [id number] #### LAB [address] [address] Yusuf Villaseñor M.D. [id number] Erythrocyte distribution width (RBC) [Ratio] 14.6 % Normal 11.6-14.8 [facility] Comment on above: Performed By: #### L [id number] #### LAB [address] [address] Yusuf Villaseñor M.D. [id number] Hematocrit (Bld) [Volume fraction] 28.8 % Low 41.0-53.0 [facility] Comment on above: Performed By: #### L [id number] #### LAB [address] [address] Yusuf Villaseñor M.D. [id number] Hemoglobin (Bld) [Mass/Vol] 9.2 g/dL Low 13.5-17.5 [facility] Comment on above: Performed By: #### L [id number] #### LAB [address] [address] Yusuf Villaseñor M.D. [id number] IG ABSOLUTE 0.24 K/mcL Normal 0.00-0.30 [facility] Comment on above: Performed By: #### L [id number] #### LAB [address] [address] Yusuf Villaseñor M.D. [id number] IG PERCENT 1.40 % Normal [facility] Comment on above: Result Comment: The IG parameter is the percentage of metamyelocytes, myelocytes and promyelocytes. An immature granulocyte count (IG) of 1% or more suggests the possibility of infection, an IG count of 3% is very likely related to an infection. Performed By: #### L [id number] #### LAB [address] [place] [address] Yusuf Villaseñor M.D. [id number] Lymphocytes (Bld) [#/Vol] 1.39 10*3/uL Normal 0.90-4.00 [facility] Comment on above: Performed By: #### L [id number] #### LAB [address] [place] [address] Yusuf Villaseñor M.D. [id number] Lymphocytes/100 WBC (Bld) 7.9 % Normal [facility] Comment on above: Performed By: #### L [id number] #### LAB [address] [address] Yusuf Villaseñor M.D. [id number] MCH (RBC) [Entitic mass] 26.6 pg Normal 26.0-34.0 [facility] Comment on above: Performed By: #### L [id number] ####[facility] [address] [address] Yusuf Villaseñor M.D. [id number] MCV (RBC) [Entitic vol] 83.2 fL Normal 80.0-100.0 [facility] Comment on above: Performed By: #### L [id number] #### LAB [address] [address] Yusuf Villaseñor M.D. [id number] MEAN CORPUSCULAR HEMOGLOBIN CONC 31.9 g/dL Normal 31.0-37.0 [facility] Comment on above: Performed By: #### L [id number] #### LAB [address] [address] Yusuf Villaseñor M.D. [id number] Monocytes (Bld) [#/Vol] 1.13 10*3/uL High 0.30-0.90 [facility] Comment on above: Performed By: #### L [id number] #### LAB [address] [address] Yusuf Villaseñor M.D. [id number] Monocytes/100 WBC (Bld) 6.4 % Normal [facility] Comment on above: Performed By: #### L [id number] #### LAB [address] [address] Yusuf Villaseñor M.D. [id number] NEUTROPHILS ABSOLUTE COUNT 14.71 K/mcL High 1.70-7.00 [facility] Comment on above: Performed By: #### L [id number] #### LAB [address] [id number] Yusuf Villaseñor M.D. [id number] Neutrophils/100 WBC (Bld) 83.4 % Normal [facility] Comment on above: Performed By: #### L [id number] #### LAB [address] [address] Yusuf Villaseñor M.D. [id number] Platelet mean volume (Bld) [Entitic vol] 9.4 fL Normal 9.4-12.4 [facility] Comment on above: Performed By: #### L [id number] ####[facility] [address] [address] Yusuf Villaseñor M.D. [id number] Platelets (Bld) [#/Vol] 146 10*3/uL Low 150-400 [facility] Comment on above: Performed By: #### L [id number] ####[facility] [address] [address] Yusuf Villaseñor M.D. [id number] RBC (Bld) [#/Vol] 3.46 10*6/uL Low 4.50-5.90 [facility] Comment on above: Performed By: #### L [id number] ####[facility] [address] [address] Yusuf Villaseñor M.D. [id number] WBC (Bld) [#/Vol] 17.62 10*3/uL High 4.50-11.00 [facility] Comment on above: Performed By: #### L [id number] ####[facility] [address] [address] Yusuf Villaseñor M.D. [id number] Glucose (Bld) [Mass/Vol]on 0 01-31-2025 Glucose [Mass/Vol] 125 mg/dL High 65 - 99 mg/dL [facility] Interpretation and review of laboratory results Abnormal [facility] Glucose [Mass/Vol] 155 mg/dL High 65 - 99 mg/[facility] Interpretation and review of laboratory results Abnormal [facility] Glucose [Mass/Vol] 243 mg/dL High 65 - 99 mg/dL [facility] Interpretation and review of laboratory results Abnormal [facility] Glucose [Mass/Vol] 128 mg/dL High 65 - 99 mg/dL [facility] Interpretation and review of laboratory results Abnormal [facility] HEPATIC FUNCTION PANELon Albumin [Mass/Vol] 2.9 g/dL Low 3.2-5.2 [facility] Comment on above: Performed By: #### 4 [id number] #### LAB [address] [address] Yusuf Villaseñor M.D. [id number] ALP [Catalytic activity/Vol] 120 U/L Normal 40-150 [facility] Comment on above: Performed By: #### 4 5866 #### LAB [address] [address] Yusuf Villaseñor M.D. [id number] ALT [Catalytic activity/Vol] 1883 U/L High 0-50 U/L [facility] Comment on above: Performed By: #### 4 5866 #### LAB [address] [address] Yusuf Villaseñor M.D. [id number] AST [Catalytic activity/Vol] 1779 U/L High 0-50 U/L [facility] Comment on above: Performed By: #### 4 5866 #### LAB [address] [address] Yusuf Villaseñor M.D. [id number] Bilirubin [Mass/Vol] 0.9 mg/dL Normal 0.0-1.3 [facility] Comment on above: Performed By: #### 4 5866 #### LAB [address] [id number] Yusuf Villaseñor M.D. [id number] Bilirubin.indirect [Mass/Vol] 0.6 mg/dL High 0.0-0.4 [facility] Comment on above: Performed By: #### 4 5866 #### LAB [address] [address] Yusuf Villaseñor M.D. [id number] Protein [Mass/Vol] 5.8 g/dL Low 6.0-8.0 [facility] Comment on above: Performed By: #### 4 5866 #### LAB [address], [place] [address] Yusuf Villaseñor M.D. [id number] Hepatic function 2000 panelo n 01-31-2025 Albumin [Mass/Vol] 2.9 g/dL Low 3.2 - 5.2 g/dL [facility] ALP [Catalytic activity/Vol] 120 U/L 40 - 150 U/L [facility] ALT [Catalytic activity/Vol] 1883 U/L High 0 - 50 U/L [facility] AST [Catalytic activity/Vol] 1779 U/L High 0 - 50 U/L [facility] Bilirubin [Mass/Vol] 0.9 mg/dL 0.0 - 1 .3 mg/dL [facility] Bilirubin.conjugated [Mass/Vol] 0.6 mg/dL High 0.0 - 0.4 mg/dL [facility] Interpretation and review of laboratory results Abnormal [facility] Protein [Mass/Vol] 5.8 g/dL Low 6.0 - 8.0 g/dL [facility] INR Coag (PPP) [Relative pily e]on 01-31-2025 PT Coag (PPP) [Time] 21.3 s High [facility] MAGNESIUM LEVELon 01-31-2025 Magnesium [Mass/Vol] 2.0 mg/dL Normal 1.6-2.4 [facility] Comment on above: Performed By: #### 4 6109 #### LAB [address], [place] [address] Yusuf Villaseñor M.D. [id number] Magnesium Levelon 01-31-2025 Magnesium [Mass/Vol] 2 mg/dL 1.6 - 2 .4 mg/dL [facility] Magnesium [Mass/Vol]on 01-31 Interpretation and review of laboratory results Normal [facility] No Panel InformationOrdered By: Daisy Méndez on 01-31-2025 Interpretation and review of laboratory results Abnormal [facility] POC GLUCOSE - [place] 025 Glucose [Mass/Vol] 125 mg/dL High 65-99 [facility] Glucose [Mass/Vol] 155 mg/dL High 65-99 [facility] Glucose [Mass/Vol] 243 mg/dL High 65-99 [facility] Glucose [Mass/Vol] 128 mg/dL High 65-99 [facility] PT/INRon 01-31-2025 INR Coag (PPP) [Relative time] 1.8 {INR} High 0.8 - 1.1 [facility] INR Coag (PPP) [Relative time] 1.8 {INR} High 0.8-1.1 [facility] Comment on above: Order Comment: Annie nicole the induction phase of oral anticoagulation, the INR may not reflect the anticoagulation status of the patient. Therapeutic ranges for INR's are:Most clinical situations: INR 2.0-3.0Mechanical Prosthetic Valve: INR 2.5-3.5Critical: INR >5.0 Performed By: #### 4 [id number] #### LAB [address] [address] Yusuf Villaseñor M.D. [id number] PT Coag (PPP) [Time] 21.3 s High 11.8-14.3 [facility] Comment on above: Order Comment: Annie nicole the induction phase of oral anticoagulation, the INR may not reflect the anticoagulation status of the patient. Therapeutic ranges for INR's are:Most clinical situations: INR 2.0-3.0Mechanical Prosthetic Valve: INR 2.5-3.5Critical: INR >5.0 Performed By: #### 4 6391 ####[facility] [address], [place] [address] Yusuf Villaseñor M.D. [id number] AMMONIAon 01-30-2025 AMMONIA 21 micromol/L Normal 12-47 [facility] Comment on above: Performed By: #### 4 5060 ####[facility] [address], [place] [address] Yusuf Villaseñor M.D. [id number] APTTOrdered By: Eliel caputo on 01-30-2025 aPTT Coag (Bld) [Time] 69 s High [facility] APTTon 01-30-2025 aPTT Coag (Bld) [Time] 69 s High 23-34 [facility] Comment on above: Order Comment: Thera peutic range for APTT's is 68 - 104 seconds Performed By: #### 4 5113 #### LAB [address], [place] [address] Yusuf Villaseñor M.D. [id number] APTT HEPARIN COVERAGEon 01-09 aPTT Coag (Bld) [Time] 78 s High 23-34 [facility] Comment on above: Order Comment: Thera peutic range for APTT's is 68 - 104 seconds Performed By: #### 4 6848 #### LAB [address], [place] [address] Yusuf Villaseñor M.D. [id number] Ammoniaon 01-30-2025 Ammonia (P) [Mass/Vol] 21 ug/dL [facility] Ammonia (P) [Mass/Vol]on Interpretation and review of laboratory results Normal [facility] BASIC METABOLIC PANELon 01-09 Anion gap [Moles/Vol] 21 mmol/L High 10-20 [facility] Comment on above: Order Comment: [facility] has implemented the eGFR calculation approach that does not have a coefficient for race that conforms to the NKF-ASN Task Force Recommendations. Performed By: #### 4 6124 #### LAB [address] [place], [place] [address] Yusuf Villaseñor M.D. [id number] Calcium [Mass/Vol] 8.0 mg/dL Low 8.4-10.2 [facility] Comment on above: Order Comment: [facility] has implemented the eGFR calculation approach that does not have a coefficient for race that conforms to the NKF-ASN Task Force Recommendations. Performed By: #### 4 6124 #### LAB [address] [place], [place] [address] Yusuf Villaseñor M.D. [id number] Chloride [Moles/Vol] 98 mmol/L Normal 98-108 [facility] Comment on above: Order Comment: [facility] has implemented the eGFR calculation approach that does not have a coefficient for race that conforms to the NKF-ASN Task Force Recommendations. Performed By: #### 4 6124 #### LAB [address] [place] [address] Yusuf Villaseñor M.D. [id number] Creatinine [Mass/Vol] 3.02 mg/dL High 0.80-1.30 [facility] Comment on above: Order Comment: [facility] has implemented the eGFR calculation approach that does not have a coefficient for race that conforms to the NKF-ASN Task Force Recommendations. Performed By: #### 4 6124 #### LAB [address] [place] [address] Yusuf Villaseñor M.D. [id number] EGFR 20 mL/min/1.73 m2 Low >=60 [facility] Comment on above: Order Comment: [facility] has implemented the eGFR calculation approach that does not have a coefficient for race that conforms to the NKF-ASN Task Force Recommendations. Result Comment: Aide mated GFR was calculated using the 2020 CKD-EPI creatinine equation. Performed By: #### 4 6124 #### LAB [address] [place] [address] Yusuf Villaseñor M.D. [id number] Glucose [Mass/Vol] 202 mg/dL High 65-99 [facility] Comment on above: Order Comment: [facility] has implemented the eGFR calculation approach that does not have a coefficient for race that conforms to the NKF-ASN Task Force Recommendations. Performed By: #### 4 6124 #### LAB [address] [place] [address] Yusuf Villaseñor M.D. [id number] HCO3 (Bld) [Moles/Vol] 18 mmol/L Low 21-32 [facility] Comment on above: Order Comment: [facility] has implemented the eGFR calculation approach that does not have a coefficient for race that conforms to the NKF-ASN Task Force Recommendations. Performed By: #### 4 6124 #### LAB [address] [place] [address] Yusuf Villaseñor M.D. [id number] Potassium [Moles/Vol] 5.5 mmol/L High 3.5-5.1 [facility] Comment on above: Order Comment: [facility] has implemented the eGFR calculation approach that does not have a coefficient for race that conforms to the NKF-ASN Task Force Recommendations. Performed By: #### 4 6124 #### LAB [address] [place] [address] Yusuf Villaseñor M.D. [id number] Sodium [Moles/Vol] 131 mmol/L Low 135-145 [facility] Comment on above: Order Comment: [facility] has implemented the eGFR calculation approach that does not have a coefficient for race that conforms to the NKF-ASN Task Force Recommendations. Performed By: #### 4 6151 #### LAB [address] [place] [address] Yusuf Villaseñor M.D. [id number] Urea nitrogen [Mass/Vol] 77 mg/dL High 8-25 [facility] Comment on above: Order Comment: [facility] has implemented the eGFR calculation approach that does not have a coefficient for race that conforms to the NKF-ASN Task Force Recommendations. Performed By: #### 4 6124 #### LAB [address] [place] [address] Yusuf Villaseñor M.D. [id number] Urea nitrogen/Creatinine [Mass ratio] 25.5 mg/mg High 10.0-20.0 [facility] Comment on above: Order Comment: [facility] has implemented the eGFR calculation approach that does not have a coefficient for race that conforms to the NKF-ASN Task Force Recommendations. Performed By: #### 4 6148 #### LAB [address] [place] [address] Yusuf Villaseñor M.D. [id number] Anion gap [Moles/Vol] 22 mmol/L High 10-20 [facility] Comment on above: Order Comment: [facility] has implemented the eGFR calculation approach that does not have a coefficient for race that conforms to the NKF-ASN Task Force Recommendations. Performed By: #### 4 6137 #### LAB [address] [place] [address] Yusuf Villaseñor M.D. [id number] Calcium [Mass/Vol] 8.2 mg/dL Low 8.4-10.2 [facility] Comment on above: Order Comment: [facility] has implemented the eGFR calculation approach that does not have a coefficient for race that conforms to the NKF-ASN Task Force Recommendations. Performed By: #### 4 6124 #### LAB [address] [place] [address] Yusuf Villaseñor M.D. [id number] Chloride [Moles/Vol] 100 mmol/L Normal 98-108 [facility] Comment on above: Order Comment: [facility] has implemented the eGFR calculation approach that does not have a coefficient for race that conforms to the NKF-ASN Task Force Recommendations. Performed By: #### 4 6124 #### LAB [address] [place] [id number] Yusuf Villaseñor M.D. [id number] Creatinine [Mass/Vol] 2.83 mg/dL High 0.80-1.30 [facility] Comment on above: Order Comment: [facility] has implemented the eGFR calculation approach that does not have a coefficient for race that conforms to the NKF-ASN Task Force Recommendations. Performed By: #### 4 6124 #### LAB [address] [place] [address] Yusuf Villaseñor M.D. [id number] EGFR 22 mL/min/1.73 m2 Low >=60 [facility] Comment on above: Order Comment: [facility] has implemented the eGFR calculation approach that does not have a coefficient for race that conforms to the NKF-ASN Task Force Recommendations. Result Comment: Aide mated GFR was calculated using the 2020 CKD-EPI creatinine equation. Performed By: #### 4 6124 #### LAB [address] [place] [address] Yusuf Villaseñor M.D. [id number] Glucose [Mass/Vol] 150 mg/dL High 65-99 [facility] Comment on above: Order Comment: [facility] has implemented the eGFR calculation approach that does not have a coefficient for race that conforms to the NKF-ASN Task Force Recommendations. Performed By: #### 4 6124 #### LAB [address] [place] [id number] Yusuf Villaseñor M.D. [id number] HCO3 (Bld) [Moles/Vol] 16 mmol/L Low 21-32 [facility] Comment on above: Order Comment: [facility] has implemented the eGFR calculation approach that does not have a coefficient for race that conforms to the NKF-ASN Task Force Recommendations. Performed By: #### 4 6124 #### LAB [address] [place] [address] Yusuf Villaseñor M.D. [id number] Potassium [Moles/Vol] 5.4 mmol/L High 3.5-5.1 [facility] Comment on above: Order Comment: [facility] has implemented the eGFR calculation approach that does not have a coefficient for race that conforms to the NKF-ASN Task Force Recommendations. Performed By: #### 4 6124 #### LAB [address] [place] [address] Yusuf Villaseñor M.D. [id number] Sodium [Moles/Vol] 133 mmol/L Low 135-145 [facility] Comment on above: Order Comment: [facility] has implemented the eGFR calculation approach that does not have a coefficient for race that conforms to the NKF-ASN Task Force Recommendations. Performed By: #### 4 6124 ####[facility] LAB [address] [place] [address] Yusuf Villaseñor M.D. [id number] Urea nitrogen [Mass/Vol] 64 mg/dL High 8-25 [facility] Comment on above: Order Comment: [facility] has implemented the eGFR calculation approach that does not have a coefficient for race that conforms to the NKF-ASN Task Force Recommendations. Performed By: #### 4 6124 #### LAB [address] [place] [address] Yusuf Villaseñor M.D. [id number] Urea nitrogen/Creatinine [Mass ratio] 22.6 mg/mg High 10.0-20.0 [facility] Comment on above: Order Comment: [facility] has implemented the eGFR calculation approach that does not have a coefficient for race that conforms to the NKF-ASN Task Force Recommendations. Performed By: #### 4 6124 #### LAB [address] [place], [place] [address] Yusuf Villaseñor M.D. [id number] BETA-HYDROXYBUTYRATEon 01-30 BETA-HYDROXYBUTYRATE 0.6 mmol/L High 0.0-0.3 [facility] Comment on above: Performed By: #### 4 5139 #### LAB [address] [place] [address] Yusuf Villaseñor M.D. [id number] BLOOD CULTURE AEROBIC/ANAERO BICon 01-30-2025 BLOOD CULTURE AEROBIC/ANAEROBIC BLOOD CULTURE No Growth after [address] [facility] Comment on above: Performed By: #### 4 4014 ####[facility] [address] [address] Giorgio Williamson M.D. [id number] BLOOD CULTURE AEROBIC/ANAEROBIC BLOOD CULTURE No Growth after [address] [facility] Comment on above: Performed By: #### 4 4014 ####[facility] [address] [address] Giorgio Williamson M.D. [id number] Bacteria identified Aer cx N om (Unsp spec)Ordered By: Checo Zelaya on 01-30-2025 [facility] Bacteria identified Cx Nom ( Bld)Ordered By: Elli Vera on 01-30-2025 Gram Stain Result Positive Abnormal [facility] Interpretation and review of laboratory results Abnormal [facility] Basic metabolic 2000 panelon 01-30-2025 Anion gap [Moles/Vol] 21 mmol/L High 10 - 2 0 mmol/L [facility] Calcium [Mass/Vol] 8 mg/dL Low 8.4 - 10. 2 mg/dL [facility] Chloride [Moles/Vol] 98 mmol/L 98 - 10 8 mmol/L [facility] Creatinine [Mass/Vol] 3.02 mg/dL High 0.80 - 1.30 mg/dL [facility] GFR/1.73 sq M.predicted CKD-EPI (S/P/Bld) [Vol rate/Area] 20 Low - PINF [facility] Glucose [Mass/Vol] 202 mg/dL High 65 - 99 mg/dL [facility] HCO3 [Moles/Vol] 18 mmol/L Low 21 - 32 mmol/L [facility] Potassium [Moles/Vol] 5.5 mmol/L High 3.5 - 5.1 mmol/L [facility] Sodium [Moles/Vol] 131 mmol/L Low 135 - 145 mmol/L [facility] Urea nitrogen [Mass/Vol] 77 mg/dL High 8 - 25 mg/dL [facility] Urea nitrogen/Creatinine [Mass ratio] 25.5 mg/mg High 10.0 - 20.0 [facility] Beta-Hydroxybutyrateon 01-30 Beta hydroxybutyrate [Moles/Vol] 0.6 mmol/L High 0.0 - 0.3 mmol/L [facility] Blood Culture Aerobic/Anaero bicOrdered By: Elli Vera on 01-30-2025 Bacteria identified Cx Nom (Bld) Streptococcus agalactiae (Group B) Abnormal [facility] CBC WITH AUTO DIFFERENTIALon 01-30-2025 AUTO NRBC 0.2 % Normal [facility] Comment on above: Performed By: #### L [id number] ####[facility] [address] [place] [address] Yusuf Villaseñor M.D. [id number] AUTO NRBC ABS COUNT 0.05 K/mcL High 0.00-0.00 [facility] Comment on above: Performed By: #### L [id number] ####[facility] [address] [place], [place] [address] Yusuf Villaseñor M.D. [id number] BASOPHILS ABSOLUTE COUNT 0.04 K/mcL Normal 0.00-0.30 [facility] Comment on above: Performed By: #### L [id number] ####[facility] [address] [place] [id number] Yusuf Villaseñor M.D. [id number] Basophils/100 WBC (Bld) 0.2 % Normal [facility] Comment on above: Performed By: #### L [id number] #### LAB [address] [place] [address] Yusuf Villaseñor M.D. [id number] Eosinophils (Bld) [#/Vol] 0.07 10*3/uL Normal 0.00-0.50 [facility] Comment on above: Performed By: #### L [id number] #### LAB [address] [place] [address] Yusuf Villaseñor M.D. [id number] Eosinophils/100 WBC (Bld) 0.3 % Normal [facility] Comment on above: Performed By: #### L [id number] #### LAB [address] [place] [address] Yusuf Villaseñor M.D. [id number] Erythrocyte distribution width (RBC) [Ratio] 14.5 % Normal 11.6-14.8 [facility] Comment on above: Performed By: #### L [id number] #### LAB [address] [place] [address] Yusuf Villaseñor M.D. [id number] Hematocrit (Bld) [Volume fraction] 31.6 % Low 41.0-53.0 [facility] Comment on above: Performed By: #### L [id number] #### LAB [address] [place] [address] Yusuf Villaseñor M.D. [id number] Hemoglobin (Bld) [Mass/Vol] 10.2 g/dL Low 13.5-17.5 [facility] Comment on above: Performed By: #### L [id number] ####[facility] LAB [address] [place] [address] Yusuf Villaseñor M.D. [id number] IG ABSOLUTE 0.29 K/mcL Normal 0.00-0.30 [facility] Comment on above: Performed By: #### L [id number] #### LAB [address] [place] [address] Yusuf Villaseñor M.D. [id number] IG PERCENT 1.40 % Normal [facility] Comment on above: Result Comment: The IG parameter is the percentage of metamyelocytes, myelocytes and promyelocytes. An immature granulocyte count (IG) of 1% or more suggests the possibility of infection, an IG count of 3% is very likely related to an infection. Performed By: #### L [id number] #### LAB [address] [place] [address] Yusuf Villaseñor M.D. [id number] Lymphocytes (Bld) [#/Vol] 1.55 10*3/uL Normal 0.90-4.00 [facility] Comment on above: Performed By: #### L [id number] #### LAB [address] [place] [address] Yusuf Villaseñor M.D. [id number] Lymphocytes/100 WBC (Bld) 7.6 % [facility] Comment on above: Performed By: #### L [id number] #### LAB [address] [place] [address] Yusuf Villaseñor M.D. [id number] MCH (RBC) [Entitic mass] 27.1 pg Normal 26.0-34.0 [facility] Comment on above: Performed By: #### L [id number] #### LAB [address] [place] [address] Yusuf Villaseñor M.D. [id number] MCV (RBC) [Entitic vol] 84.0 fL Normal 80.0-100.0 [facility] Comment on above: Performed By: #### L [id number] #### LAB [address] [place] [address] Yusuf Villaseñor M.D. [id number] MEAN CORPUSCULAR HEMOGLOBIN CONC 32.3 g/dL Normal 31.0-37.0 [facility] Comment on above: Performed By: #### L [id number] #### LAB [address] [place] [address] Yusuf Villaseñor M.D. [id number] Monocytes (Bld) [#/Vol] 1.29 10*3/uL High 0.30-0.90 [facility] Comment on above: Performed By: #### L [id number] #### LAB [address] [place] [address] Yusuf Villaseñor M.D. [id number] Monocytes/100 WBC (Bld) 6.3 % Normal [facility] Comment on above: Performed By: #### L [id number] #### LAB [address] [place] [address] Yusuf Villaseñor M.D. [id number] NEUTROPHILS ABSOLUTE COUNT 17.24 K/mcL High 1.70-7.00 [facility] Comment on above: Performed By: #### L [id number] #### LAB [address] [place] [address] Yusuf Villaseñor M.D. [id number] Neutrophils/100 WBC (Bld) 84.2 % [facility] Comment on above: Performed By: #### L [id number] #### LAB [address] [place] [address] Yusuf Villaseñor M.D. [id number] Platelet mean volume (Bld) [Entitic vol] 10.4 fL Normal 9.4-12.4 [facility] Comment on above: Performed By: #### L [id number] #### LAB [address] [place] [address] Yusuf Villaseñor M.D. [id number] Platelets (Bld) [#/Vol] 154 10*3/uL Normal 150-400 [facility] Comment on above: Performed By: #### L [id number] #### LAB [address] [place] [address] Yusuf Villaseñor M.D. [id number] RBC (Bld) [#/Vol] 3.76 10*6/uL Low 4.50-5.90 [facility] Comment on above: Performed By: #### L [id number] #### LAB [address] [place] [address] Yusuf Villaseñor M.D. [id number] WBC (Bld) [#/Vol] 20.48 10*3/uL High 4.50-11.00 [facility] Comment on above: Performed By: #### L [id number] ####[facility] [address] [place], [place] [address] Yusuf Villaseñor M.D. [id number] CONSULTon 01-30-2025 CONSULT Normal [facility] CONSULT Normal [facility] ECG 12 Leadon 01-30-2025 Q-T Interval 466 ms [facility] QRS Duration 178 ms [facility] QTC Calculation (Bezet) 566 ms [facility] [place] -76 degrees [facility] T [place] 5 degrees [facility] Ventricular Rate 89 BPM [facility] EKGon 01-30-2025 [facility] EKG 12-leadon 01-30-2025 Q-T Interval 316 ms [facility] QRS Duration 168 ms [facility] QTC Calculation (Bezet) 482 ms [facility] [place] -79 degrees [facility] T [place] 45 degrees [facility] Ventricular Rate 140 BPM [facility] Glucose (Bld) [Mass/Vol]on 0 01-30-2025 Glucose [Mass/Vol] 174 mg/dL High 65 - 99 mg/dL [facility] Interpretation and review of laboratory results Abnormal [facility] Glucose [Mass/Vol] 193 mg/dL High 65 - 99 mg/dL [facility] Interpretation and review of laboratory results Abnormal [facility] Glucose [Mass/Vol] 158 mg/dL High 65 - 99 mg/dL [facility] Interpretation and review of laboratory results Abnormal [facility] Glucose [Mass/Vol] 153 mg/dL High 65 - 99 mg/dL [facility] Interpretation and review of laboratory results Abnormal [facility] HEPATIC FUNCTION PANELon Albumin [Mass/Vol] 3.1 g/dL Low 3.2-5.2 [facility] Comment on above: Performed By: #### 4 5866 ####[facility] [address] [place], [place] [address] Yusuf Villaseñor M.D. [id number] ALP [Catalytic activity/Vol] 127 U/L Normal 40-150 [facility] Comment on above: Performed By: #### 4 5866 ####[facility] [address] [place], [place] [address] Yusuf Villaseñor M.D. [id number] ALT [Catalytic activity/Vol] 1419 U/L High 0-50 U/L [facility] Comment on above: Performed By: #### 4 5866 #### LAB [address] [place], [place] [address] Yusuf Villaseñor M.D. [id number] AST [Catalytic activity/Vol] 1591 U/L High 0-50 U/L [facility] Comment on above: Performed By: #### 4 5866 #### LAB [address] [place], [place] [address] Yusuf Villaseñor M.D. [id number] Bilirubin [Mass/Vol] 1.3 mg/dL Normal 0.0-1.3 [facility] Comment on above: Performed By: #### 4 5866 #### LAB [address] [place] [address] Yusuf Villaseñor M.D. [id number] Bilirubin.indirect [Mass/Vol] 0.8 mg/dL High 0.0-0.4 [facility] Comment on above: Performed By: #### 4 5866 #### LAB [address] [place] [address] Yusuf Villaseñor M.D. [id number] Protein [Mass/Vol] 6.1 g/dL Normal 6.0-8.0 [facility] Comment on above: Performed By: #### 4 5866 #### LAB [address] [place] [id number] Yusuf Villaseñor M.D. [id number] HEPATITIS PANEL, ACUTEon HEPATITIS A IGM ANTIBODY Negative Normal Negative [facility] Comment on above: Order Comment: Test performed using Katiana AZUL immunoassay system Performed By: #### 4 5887 ####[facility] [address] [place], [place] [address] Giorgio Williamson M.D. [id number] HEPATITIS B CORE IGM ANTIBODY Negative Normal Negative [facility] Comment on above: Order Comment: Test performed using Kat[employer] AZUL immunoassay system Performed By: #### 4 5887 ####[facility] [address] [place] [address] Giorgio Williamson M.D. [id number] HEPATITIS B SURFACE ANTIGEN Negative Normal Negative [facility] Comment on above: Order Comment: Test performed using [employer] AZUL immunoassay system Performed By: #### 4 5887 ####[facility] [address] [place] [address] Giorgio Williamson M.D. [id number] HEPATITIS C ANTIBODY Negative Normal Negative [facility] Comment on above: Order Comment: Test performed using [employer] AZUL immunoassay system Performed By: #### 4 5887 ####[facility] [address] [place] [address] Giorgio Williamson M.D. [id number] Hepatic function 2000 panelo n 01-30-2025 Albumin [Mass/Vol] 3.1 g/dL Low 3.2 - 5.2 g/dL [facility] ALP [Catalytic activity/Vol] 127 U/L 40 - 150 U/L [facility] ALT [Catalytic activity/Vol] 1419 U/L High 0 - 50 U/L [facility] AST [Catalytic activity/Vol] 1591 U/L High 0 - 50 U/L [facility] Bilirubin [Mass/Vol] 1.3 mg/dL 0.0 - 1 .3 mg/dL [facility] Bilirubin.conjugated [Mass/Vol] 0.8 mg/dL High 0.0 - 0.4 mg/dL [facility] Hepatitis Panel, Acuteon HAV IgM Ql (S) Negative Negative [facility] HBV core IgM Ql (S) Negative Negative [facility] surface Ag Ql (S) Negative Negative [facility] HCV Ab Ql (S) Negative Negative [facility] Interpretation and review of laboratory results Normal [facility] INR Coag (PPP) [Relative pily e]on 01-30-2025 Interpretation and review of laboratory results Abnormal [facility] PT Coag (PPP) [Time] 23.9 s High [facility] LACTIC ACID, PLASMAon 2024 LACTIC ACID, PLASMA 1.8 mmol/L Normal 0.6-2.0 [facility] Comment on above: Performed By: #### 4 6053 #### LAB [address] [place], [place] [address] Yusuf Villaseñor M.D. [id number] Lactate [Moles/Vol]on 2024 Interpretation and review of laboratory results Normal [facility] Lactic Acid, Plasmaon 2024 Lactate [Moles/Vol] 1.8 mmol/L 0.6 - 2. 0 mmol/L [facility] MAGNESIUM LEVELon 01-30-2025 Magnesium [Mass/Vol] 2.0 mg/dL Normal 1.6-2.4 [facility] Comment on above: Performed By: #### 4 6109 #### LAB [address] [place], [place] [address] Yusuf Villaseñor M.D. [id number] No Panel Informationon 01-30 Interpretation and review of laboratory results Abnormal [facility] Obtain venous blood gases an d performon 01-30-2025 [facility] POC GLUCOSE - [facility] 025 Glucose [Mass/Vol] 174 mg/dL High 65-99 [facility] Glucose [Mass/Vol] 193 mg/dL High -[address] [place] [address] Glucose [Mass/Vol] 158 mg/dL High 65-[address] [place] [address] Glucose [Mass/Vol] 153 mg/dL High 65-[address] [place] [address] POC VENOUS BLOOD GAS PANEL-P ULM - [facility] 01-30-2025 BASE EXCESS, VENOUS -6.5 Low -2.0-2.0 [facility] FIO2 28 Normal [facility] HCO3 (Bld) [Moles/Vol] 19.8 mmol/L Low 24.0-28.0 [facility] Hematocrit (Bld) [Volume fraction] 32.0 % Low 41.0-53.0 [facility] Hemoglobin (Bld) [Mass/Vol] 10.4 g/dL Low 13.5-17.5 [facility] Oxygen saturation in Blood 59.5 % Normal 40.0-70.0 [facility] PCO2 VENOUS 41.6 mm Hg Normal 41.0-51.0 [facility] PH VENOUS 7.29 Low 7.32-7.42 [facility] PO2 VENOUS 34 mm Hg Normal 25-40 [facility] SPECIMEN SOURCE RADIANCE Not specified Normal [facility] POC Venous Blood Gas Panel-P ulmon 01-30-2025 Base excess Calc (BldV) [Moles/Vol] -6.5000 mmol/L Low -2.0 - 2.0 [facility] CO2 (BldV) [Partial pressure] 41.6 mm[Hg] [facility] Hematocrit (BldA) [Volume fraction] 32 % Low 41.0 - 53.0 % [facility] Inhaled oxygen concentration 28 % [facility] Interpretation and review of laboratory results Abnormal [facility] Oxygen (BldV) [Partial pressure] 34 mm[Hg] [facility] Oxygen saturation in Venous blood 59.5 % 40.0 - 70.0 % [facility] pH (BldV) 7.29 [pH] Low 7.32 - 7.42 [facility] Specimen source Nom (Unsp spec) Not specified [facility] PT/INRon 01-30-2025 INR Coag (PPP) [Relative time] 2.1 {INR} High 0.8 - 1.1 [facility] INR Coag (PPP) [Relative time] 2.1 {INR} High 0.8-1.1 [facility] Comment on above: Order Comment: Annie nicole the induction phase of oral anticoagulation, the INR may not reflect the anticoagulation status of the patient. Therapeutic ranges for INR's are:Most clinical situations: INR 2.0-3.0Mechanical Prosthetic Valve: INR 2.5-3.5Critical: INR >5.0 Performed By: #### 4 6391 #### LAB [address] [address] Yusuf Villaseñor M.D. [id number] PT Coag (PPP) [Time] 23.9 s High 11.8-14.3 [facility] Comment on above: Order Comment: Annie nicole the induction phase of oral anticoagulation, the INR may not reflect the anticoagulation status of the patient. Therapeutic ranges for INR's are:Most clinical situations: INR 2.0-3.0Mechanical Prosthetic Valve: INR 2.5-3.5Critical: INR >5.0 Performed By: #### 4 6391 #### LAB [address] [place], [place] [address] Yusuf Villaseñor M.D. [id number] URINALYSISon 01-30-2025 AMORPHOUS CRYSTALS Few Abnormal None Seen , Rare [facility] Comment on above: Order Comment: Micro scopic examination is performed on all urinalysis samples and only positive findings are reported. The test for blood on the chemical analytic portion of urinalysis may also be positive due to hemoglobinuria and myoglobinuria and if red blood cells are present they are quantified by microscopic examination. Performed By: #### 4 6625 #### LAB [address] [address] Yusuf Villaseñor M.D. [id number] BACTERIA, URINE Rare Abnormal None Seen [facility] Comment on above: Order Comment: Micro scopic examination is performed on all urinalysis samples and only positive findings are reported. The test for blood on the chemical analytic portion of urinalysis may also be positive due to hemoglobinuria and myoglobinuria and if red blood cells are present they are quantified by microscopic examination. Performed By: #### 4 6625 #### LAB [address] [address] Yusuf Villaseñor M.D. [id number] BILIRUBIN, URINE Negative Normal Negative [facility] Comment on above: Order Comment: Micro scopic examination is performed on all urinalysis samples and only positive findings are reported. The test for blood on the chemical analytic portion of urinalysis may also be positive due to hemoglobinuria and myoglobinuria and if red blood cells are present they are quantified by microscopic examination. Performed By: #### 4 6625 ####[facility] [address] [address] Yusuf Villaseñor M.D. [id number] BLOOD, URINE Large Abnormal Negative [facility] Comment on above: Order Comment: Micro scopic examination is performed on all urinalysis samples and only positive findings are reported. The test for blood on the chemical analytic portion of urinalysis may also be positive due to hemoglobinuria and myoglobinuria and if red blood cells are present they are quantified by microscopic examination. Performed By: #### 4 6625 ####[facility] [address] [address] Yusuf Villaseñor M.D. [id number] Clarity (U) Cloudy Abnormal Clear [facility] Comment on above: Order Comment: Micro scopic examination is performed on all urinalysis samples and only positive findings are reported. The test for blood on the chemical analytic portion of urinalysis may also be positive due to hemoglobinuria and myoglobinuria and if red blood cells are present they are quantified by microscopic examination. Performed By: #### 4 6625 #### LAB [address] [place] [address] Yusuf Villaseñor M.D. [id number] Color (U) Brown Abnormal Colorless, Yellow [facility] Comment on above: Order Comment: Micro scopic examination is performed on all urinalysis samples and only positive findings are reported. The test for blood on the chemical analytic portion of urinalysis may also be positive due to hemoglobinuria and myoglobinuria and if red blood cells are present they are quantified by microscopic examination. Performed By: #### 4 6625 #### LAB [address] [place] [address] Yusuf Villaseñor M.D. [id number] Glucose Ql (U) Negative Normal Negative [facility] Comment on above: Order Comment: Micro scopic examination is performed on all urinalysis samples and only positive findings are reported. The test for blood on the chemical analytic portion of urinalysis may also be positive due to hemoglobinuria and myoglobinuria and if red blood cells are present they are quantified by microscopic examination. Performed By: #### 4 6625 #### LAB [address] [address] Yusuf Villaseñor M.D. [id number] Ketones Ql (U) Negative Normal Negative [facility] Comment on above: Order Comment: Micro scopic examination is performed on all urinalysis samples and only positive findings are reported. The test for blood on the chemical analytic portion of urinalysis may also be positive due to hemoglobinuria and myoglobinuria and if red blood cells are present they are quantified by microscopic examination. Performed By: #### 4 6625 #### LAB [address] [address] Yusuf Villaseñor M.D. [id number] Leukocyte esterase Test strip Ql (U) Trace Abnormal Negative [facility] Comment on above: Order Comment: Micro scopic examination is performed on all urinalysis samples and only positive findings are reported. The test for blood on the chemical analytic portion of urinalysis may also be positive due to hemoglobinuria and myoglobinuria and if red blood cells are present they are quantified by microscopic examination. Performed By: #### 4 6625 #### LAB [address] [address] Yusuf Villaseñor M.D. [id number] MUCUS, URINE Rare Normal None Seen, Rare [facility] Comment on above: Order Comment: Micro scopic examination is performed on all urinalysis samples and only positive findings are reported. The test for blood on the chemical analytic portion of urinalysis may also be positive due to hemoglobinuria and myoglobinuria and if red blood cells are present they are quantified by microscopic examination. Performed By: #### 4 6625 #### LAB [address] [address] Yusuf Villaseñor M.D. [id number] NITRITE, URINE Negative Normal Negative [facility] Comment on above: Order Comment: Micro scopic examination is performed on all urinalysis samples and only positive findings are reported. The test for blood on the chemical analytic portion of urinalysis may also be positive due to hemoglobinuria and myoglobinuria and if red blood cells are present they are quantified by microscopic examination. Performed By: #### 4 6625 #### LAB [address] [address] Yusuf Villaseñor M.D. [id number] pH (U) 5.0 [pH] Normal 5.0-7.0 [facility] Comment on above: Order Comment: Micro scopic examination is performed on all urinalysis samples and only positive findings are reported. The test for blood on the chemical analytic portion of urinalysis may also be positive due to hemoglobinuria and myoglobinuria and if red blood cells are present they are quantified by microscopic examination. Performed By: #### 4 6625 #### LAB [address] [address] Yusuf Villaseñor M.D. [id number] Protein (U) [Mass/Vol] 30 mg/dL Abnormal Negative [facility] Comment on above: Order Comment: Micro [...] By: #### 4 6625 #### LAB [address], [place] [address] Yusuf Villaseñor M.D. [id number] RBC, URINE > High 0-3 [facility] Comment on above: Order Comment: Micro scopic examination is performed on all urinalysis samples and only positive findings are reported. The test for blood on the chemical analytic portion of urinalysis may also be positive due to hemoglobinuria and myoglobinuria and if red blood cells are present they are quantified by microscopic examination. Performed By: #### 4 6625 #### LAB [address], [place] [address] Yusuf Villaseñor M.D. [id number] Specific gravity (U) [Rel density] 1.015 Normal 1.005-1.025 [facility] Comment on above: Order Comment: Micro scopic examination is performed on all urinalysis samples and only positive findings are reported. The test for blood on the chemical analytic portion of urinalysis may also be positive due to hemoglobinuria and myoglobinuria and if red blood cells are present they are quantified by microscopic examination. Performed By: #### 4 6625 #### LAB [address], [place] [address] Yusuf Villaseñor M.D. [id number] UROBILINOGEN, URINE <2.0 Normal <2.0 [facility] Comment on above: Order Comment: Micro scopic examination is performed on all urinalysis samples and only positive findings are reported. The test for blood on the chemical analytic portion of urinalysis may also be positive due to hemoglobinuria and myoglobinuria and if red blood cells are present they are quantified by microscopic examination. Performed By: #### 4 6625 #### LAB [address], [place] [address] Yusuf Villaseñor M.D. [id number] WBC, URINE > High 0-5 [facility] Comment on above: Order Comment: Micro scopic examination is performed on all urinalysis samples and only positive findings are reported. The test for blood on the chemical analytic portion of urinalysis may also be positive due to hemoglobinuria and myoglobinuria and if red blood cells are present they are quantified by microscopic examination. Performed By: #### 4 6625 #### LAB [address], [place] [address] Yusuf Villaseñor M.D. [id number] US ABDOMEN LIMITED STUDYon 0 01-30-2025 US ABDOMEN LIMITED STUDY Normal [facility] Comment on above: Order Comment: Injur y/Trauma or Illness?:Illness/OtherHow long have you had these symptoms (acute/chronic)?:AcuteReason for exam?:elevated LFTSHistory of cancer?:unknownSurgeries, chemotherapy, or radiation?:unknownType of Exam?:InitialAdditional signs and symptoms?:none US Abdomen limitedon 025 GE RIS GE RIS [facility] Radiology Study observation (narrative) [facility] US Abdomen limitedOrdered By : Sonam Jenkins on 01-30-2025 [facility] Work Phone: Urinalysison 01-30-2025 Bacteria Auto Ql (U) Rare Abnormal None Se en /hpf [facility] Bilirubin Ql (U) Negative [facility] Cl[facility] Refractometry automated (U) Cloudy Abnormal Clear [facility] Color (U) Brown Abnormal Colorless, Yellow [facility] Crystals.amorphous Computer assisted (U) [#/Area] Few Abnormal None Seen, Rare /hpf [facility] Glucose Auto test strip (U) [Mass/Vol] Negative Negative mg/dL [facility] Hemoglobin Auto test strip Ql (U) Large Abnormal Negative [facility] Interpretation and review of laboratory results Abnormal [facility] Ketones (U) [Mass/Vol] Negative Negat aleksander mg/dL [facility] Leukocyte esterase Auto test strip Ql (U) Trace Abnormal Negative [facility] Mucus Auto (Urine sed) [#/Area] Rare None Seen, Rare /lpf [facility] Nitrite Auto test strip Ql (U) Negative Negative [facility] pH (U) 5 [pH] 5.0 - 7.0 [facility] Protein (U) [Mass/Vol] 30 mg/dL Abnormal Negative [facility] RBC Auto (Urine sed) [#/Area] High [facility] Specific gravity (U) [Rel density] 1.015 1.005 - 1.025 [facility] Urobilinogen (U) [Mass/Vol] mg/dL NINF - 2.0 mg/dL [facility] WBC Auto (Urine sed) [#/Area] High [facility] Urine Aerobic CultureOrdered By: Checo Zelaya on 01-30-2025 Bacteria identified Aer cx Nom (Unsp spec) No Growth (<1,000 CFU/mL) [facility] WOUND AEROBIC AND ANAEROBIC CULTUREon 01-30-2025 WOUND AEROBIC AND ANAEROBIC CULTURE Abnormal [facility] Comment on above: Performed By: #### 4 [id number] ####[facility] [address] [place] [address] Giorgio Williamson M.D. [id number] aPTT Coag (Bld) [Time]Ordere d By: Eliel Huerta on 01-30-2025 Interpretation and review of laboratory results Abnormal [facility] APTT HEPARIN COVERAGEon 01-09 aPTT Coag (Bld) [Time] 64 s High 23-34 [facility] Comment on above: Order Comment: Thera peutic range for APTT's is 68 - 104 seconds Performed By: #### 4 6848 #### LAB [address] [address] Yusuf Villaseñor M.D. [id number] aPTT Coag (Bld) [Time] 54 s High 23-34 [facility] Comment on above: Order Comment: Thera peutic range for APTT's is 68 - 104 seconds Performed By: #### 4 6881 #### LAB [address] [address] Yusuf Villaseñor M.D. [id number] aPTT Coag (Bld) [Time] 44 s High 23-34 [facility] Comment on above: Order Comment: Thera peutic range for APTT's is 68 - 104 seconds Performed By: #### 4 6848 #### LAB [address] [place], [place] [address] Yusuf Villaseñor M.D. [id number] BASIC METABOLIC PANELon 07-2 -2024 Anion gap [Moles/Vol] 22 mmol/L High 10-20 [facility] Comment on above: Order Comment: [facility] has implemented the eGFR calculation approach that does not have a coefficient for race that conforms to the NKF-ASN Task Force Recommendations. Performed By: #### 4 6124 #### LAB [address] [address] Yusuf Villaseñor M.D. [id number] Calcium [Mass/Vol] 8.2 mg/dL Low 8.4-10.2 [facility] Comment on above: Order Comment: [facility] has implemented the eGFR calculation approach that does not have a coefficient for race that conforms to the NKF-ASN Task Force Recommendations. Performed By: #### 4 6124 #### LAB [address] [address] Yusuf Villaseñor M.D. [id number] Chloride [Moles/Vol] 100 mmol/L Normal 98-108 [facility] Comment on above: Order Comment: [facility] has implemented the eGFR calculation approach that does not have a coefficient for race that conforms to the NKF-ASN Task Force Recommendations. Performed By: #### 4 6124 ####[facility] [address] [address] Yusuf Villaseñor M.D. [id number] Creatinine [Mass/Vol] 2.68 mg/dL High 0.80-1.30 [facility] Comment on above: Order Comment: [facility] has implemented the eGFR calculation approach that does not have a coefficient for race that conforms to the NKF-ASN Task Force Recommendations. Performed By: #### 4 6138 #### LAB [address] [id number] Yusuf Villaseñor M.D. [id number] EGFR 23 mL/min/1.73 m2 Low >=60 [facility] Comment on above: Order Comment: [facility] has implemented the eGFR calculation approach that does not have a coefficient for race that conforms to the NKF-ASN Task Force Recommendations. Result Comment: Aide mated GFR was calculated using the 2020 CKD-EPI creatinine equation. Performed By: #### 4 6124 #### LAB [address] [address] Yusuf Villaseñor M.D. [id number] Glucose [Mass/Vol] 133 mg/dL High 65-99 [facility] Comment on above: Order Comment: [facility] has implemented the eGFR calculation approach that does not have a coefficient for race that conforms to the NKF-ASN Task Force Recommendations. Performed By: #### 4 6124 #### LAB [address] [address] Yusuf Villaseñor M.D. [id number] HCO3 (Bld) [Moles/Vol] 15 mmol/L Low 21-32 [facility] Comment on above: Order Comment: [facility] has implemented the eGFR calculation approach that does not have a coefficient for race that conforms to the NKF-ASN Task Force Recommendations. Performed By: #### 4 6124 #### LAB [address] [address] Yusuf Villaseñor M.D. [id number] Potassium [Moles/Vol] 5.5 mmol/L High 3.5-5.1 [facility] Comment on above: Order Comment: [facility] has implemented the eGFR calculation approach that does not have a coefficient for race that conforms to the NKF-ASN Task Force Recommendations. Performed By: #### 4 6124 #### LAB [address] [address] Yusuf Villaseñor M.D. [id number] Sodium [Moles/Vol] 131 mmol/L Low 135-145 [facility] Comment on above: Order Comment: [facility] has implemented the eGFR calculation approach that does not have a coefficient for race that conforms to the NKF-ASN Task Force Recommendations. Performed By: #### 4 6124 #### LAB [address] [address] Yusuf Villaseñor M.D. [id number] Urea nitrogen [Mass/Vol] 59 mg/dL High 8-25 [facility] Comment on above: Order Comment: [facility] has implemented the eGFR calculation approach that does not have a coefficient for race that conforms to the NKF-ASN Task Force Recommendations. Performed By: #### 4 6124 #### LAB [address] [address] Yusuf Villaseñor M.D. [id number] Urea nitrogen/Creatinine [Mass ratio] 22.0 mg/mg High 10.0-20.0 [facility] Comment on above: Order Comment: [facility] has implemented the eGFR calculation approach that does not have a coefficient for race that conforms to the NKF-ASN Task Force Recommendations. Performed By: #### 4 6124 #### LAB [address] [address] Yusuf Villaseñor M.D. [id number] Anion gap [Moles/Vol] 21 mmol/L High 10-20 [facility] Comment on above: Order Comment: [facility] has implemented the eGFR calculation approach that does not have a coefficient for race that conforms to the NKF-ASN Task Force Recommendations. Performed By: #### 4 6124 #### LAB [address] [address] Yusuf Villaseñor M.D. [id number] Calcium [Mass/Vol] 8.2 mg/dL Low 8.4-10.2 [facility] Comment on above: Order Comment: [facility] has implemented the eGFR calculation approach that does not have a coefficient for race that conforms to the NKF-ASN Task Force Recommendations. Performed By: #### 4 6124 #### LAB [address] [address] Yusuf Villaseñor M.D. [id number] Chloride [Moles/Vol] 101 mmol/L Normal 98-108 [facility] Comment on above: Order Comment: [facility] has implemented the eGFR calculation approach that does not have a coefficient for race that conforms to the NKF-ASN Task Force Recommendations. Performed By: #### 4 6124 #### LAB [address] [address] Yusuf Villaseñor M.D. [id number] Creatinine [Mass/Vol] 2.52 mg/dL High 0.80-1.30 [facility] Comment on above: Order Comment: [facility] has implemented the eGFR calculation approach that does not have a coefficient for race that conforms to the NKF-ASN Task Force Recommendations. Performed By: #### 4 6124 ####[facility] [address] [address] Yusuf Villaseñor M.D. [id number] EGFR 25 mL/min/1.73 m2 Low >=60 [facility] Comment on above: Order Comment: [facility] has implemented the eGFR calculation approach that does not have a coefficient for race that conforms to the NKF-ASN Task Force Recommendations. Result Comment: Aide mated GFR was calculated using the 2020 CKD-EPI creatinine equation. Performed By: #### 4 6124 ####[facility] [address] [address] Yusuf Villaseñor M.D. [id number] Glucose [Mass/Vol] 134 mg/dL High 65-99 [facility] Comment on above: Order Comment: [facility] has implemented the eGFR calculation approach that does not have a coefficient for race that conforms to the NKF-ASN Task Force Recommendations. Performed By: #### 4 6124 #### LAB [address] [address] Yusuf Villaseñor M.D. [id number] HCO3 (Bld) [Moles/Vol] 15 mmol/L Low 21-32 [facility] Comment on above: Order Comment: [facility] has implemented the eGFR calculation approach that does not have a coefficient for race that conforms to the NKF-ASN Task Force Recommendations. Performed By: #### 4 6124 #### LAB [address] [address] Yusuf Villaseñor M.D. [id number] Potassium [Moles/Vol] 5.3 mmol/L High 3.5-5.1 [facility] Comment on above: Order Comment: [facility] has implemented the eGFR calculation approach that does not have a coefficient for race that conforms to the NKF-ASN Task Force Recommendations. Performed By: #### 4 6124 #### LAB [address] [address] Yusuf Villaseñor M.D. [id number] Sodium [Moles/Vol] 132 mmol/L Low 135-145 [facility] Comment on above: Order Comment: [facility] has implemented the eGFR calculation approach that does not have a coefficient for race that conforms to the NKF-ASN Task Force Recommendations. Performed By: #### 4 6124 #### LAB [address] [address] Yusuf Villaseñor M.D. [id number] Urea nitrogen [Mass/Vol] 55 mg/dL High 8-25 [facility] Comment on above: Order Comment: [facility] has implemented the eGFR calculation approach that does not have a coefficient for race that conforms to the NKF-ASN Task Force Recommendations. Performed By: #### 4 6124 #### LAB [address] [address] Yusuf Villaseñor M.D. [id number] Urea nitrogen/Creatinine [Mass ratio] 21.8 mg/mg High 10.0-20.0 [facility] Comment on above: Order Comment: [facility] has implemented the eGFR calculation approach that does not have a coefficient for race that conforms to the NKF-ASN Task Force Recommendations. Performed By: #### 4 6124 #### LAB [address] [address] Yusuf Villaseñor M.D. [id number] Anion gap [Moles/Vol] 18 mmol/L Normal 10-20 [facility] Comment on above: Order Comment: [facility] has implemented the eGFR calculation approach that does not have a coefficient for race that conforms to the NKF-ASN Task Force Recommendations. Performed By: #### 4 6124 #### LAB [address] [place], [place] [address] Yusuf Villaseñor M.D. [id number] Calcium [Mass/Vol] 8.3 mg/dL Low 8.4-10.2 [facility] Comment on above: Order Comment: [facility] has implemented the eGFR calculation approach that does not have a coefficient for race that conforms to the NKF-ASN Task Force Recommendations. Performed By: #### 4 6124 #### LAB [address] [place], [place] [address] Yusuf Villaseñor M.D. [id number] Chloride [Moles/Vol] 103 mmol/L Normal 98-108 [facility] Comment on above: Order Comment: [facility] has implemented the eGFR calculation approach that does not have a coefficient for race that conforms to the NKF-ASN Task Force Recommendations. Performed By: #### 4 6124 #### LAB [address] [place], [place] [address] Yusuf Villaseñor M.D. [id number] Creatinine [Mass/Vol] 2.26 mg/dL High 0.80-1.30 [facility] Comment on above: Order Comment: [facility] has implemented the eGFR calculation approach that does not have a coefficient for race that conforms to the NKF-ASN Task Force Recommendations. Performed By: #### 4 6124 #### LAB [address] [place], [place] [address] Yusuf Villaseñor M.D. [id number] EGFR 29 mL/min/1.73 m2 Low >=60 [facility] Comment on above: Order Comment: [facility] has implemented the eGFR calculation approach that does not have a coefficient for race that conforms to the NKF-ASN Task Force Recommendations. Result Comment: Aide mated GFR was calculated using the 2020 CKD-EPI creatinine equation. Performed By: #### 4 6124 #### LAB [address] [place] [address] Yusuf Villaseñor M.D. [id number] Glucose [Mass/Vol] 178 mg/dL High 65-99 [facility] Comment on above: Order Comment: [facility] [facility] has implemented the eGFR calculation approach that does not have a coefficient for race that conforms to the NKF-ASN Task Force Recommendations. Performed By: #### 4 6124 #### LAB [address] [address] Yusuf Villaseñor M.D. [id number] HCO3 (Bld) [Moles/Vol] 17 mmol/L Low 21-32 [facility] Comment on above: Order Comment: [facility] has implemented the eGFR calculation approach that does not have a coefficient for race that conforms to the NKF-ASN Task Force Recommendations. Performed By: #### 4 6124 #### LAB [address] [address] Yusuf Villaseñor M.D. [id number] Potassium [Moles/Vol] 4.7 mmol/L Normal 3.5-5.1 [facility] Comment on above: Order Comment: [facility] has implemented the eGFR calculation approach that does not have a coefficient for race that conforms to the NKF-ASN Task Force Recommendations. Performed By: #### 4 6124 #### LAB [address] [address] Yusuf Villaseñor M.D. [id number] Sodium [Moles/Vol] 133 mmol/L Low 135-145 [facility] Comment on above: Order Comment: [facility] has implemented the eGFR calculation approach that does not have a coefficient for race that conforms to the NKF-ASN Task Force Recommendations. Performed By: #### 4 6124 ####[facility] [address] [address] Yusuf Villaseñor M.D. [id number] Urea nitrogen [Mass/Vol] 45 mg/dL High 8-25 [facility] Comment on above: Order Comment: [facility] has implemented the eGFR calculation approach that does not have a coefficient for race that conforms to the NKF-ASN Task Force Recommendations. Performed By: #### 4 6124 #### LAB [address] [address] Yusuf Villaseñor M.D. [id number] Urea nitrogen/Creatinine [Mass ratio] 19.9 mg/mg Normal 10.0-20.0 [facility] Comment on above: Order Comment: [facility] has implemented the eGFR calculation approach that does not have a coefficient for race that conforms to the NKF-ASN Task Force Recommendations. Performed By: #### 4 6124 #### LAB [address] [address] Yusuf Villaseñor M.D. [id number] Anion gap [Moles/Vol] 19 mmol/L Normal 10-20 [facility] Comment on above: Order Comment: [facility] has implemented the eGFR calculation approach that does not have a coefficient for race that conforms to the NKF-ASN Task Force Recommendations. Performed By: #### 4 6124 #### LAB [address] [address] Yusuf Villaseñor M.D. [id number] Calcium [Mass/Vol] 8.4 mg/dL Normal 8.4-10.2 [facility] Comment on above: Order Comment: [facility] has implemented the eGFR calculation approach that does not have a coefficient for race that conforms to the NKF-ASN Task Force Recommendations. Performed By: #### 4 6192 ####[facility] [address] [address] Yusuf Villaseñor M.D. [id number] Chloride [Moles/Vol] 100 mmol/L Normal 98-108 [facility] Comment on above: Order Comment: [facility] has implemented the eGFR calculation approach that does not have a coefficient for race that conforms to the NKF-ASN Task Force Recommendations. Performed By: #### 4 6104 #### LAB [address] [address] Yusuf Villaseñor M.D. [id number] Creatinine [Mass/Vol] 2.11 mg/dL High 0.80-1.30 [facility] Comment on above: Order Comment: [facility] has implemented the eGFR calculation approach that does not have a coefficient for race that conforms to the NKF-ASN Task Force Recommendations. Performed By: #### 4 6124 #### LAB [address] [address] Yusuf Villaseñor M.D. [id number] EGFR 31 mL/min/1.73 m2 Low >=60 [facility] Comment on above: Order Comment: [facility] has implemented the eGFR calculation approach that does not have a coefficient for race that conforms to the NKF-ASN Task Force Recommendations. Result Comment: Aide mated GFR was calculated using the 2020 CKD-EPI creatinine equation. Performed By: #### 4 6124 #### LAB [address] [address] Yusuf Villaseñor M.D. [id number] Glucose [Mass/Vol] 282 mg/dL High 65-99 [facility] Comment on above: Order Comment: [facility] has implemented the eGFR calculation approach that does not have a coefficient for race that conforms to the NKF-ASN Task Force Recommendations. Performed By: #### 4 6124 #### LAB [address] [address] Yusuf Villaseñor M.D. [id number] HCO3 (Bld) [Moles/Vol] 18 mmol/L Low 21-32 [facility] Comment on above: Order Comment: [facility] has implemented the eGFR calculation approach that does not have a coefficient for race that conforms to the NKF-ASN Task Force Recommendations. Performed By: #### 4 6124 ####[facility] [address] [address] Yusuf Villaseñor M.D. [id number] Potassium [Moles/Vol] 4.4 mmol/L Normal 3.5-5.1 [facility] Comment on above: Order Comment: [facility] has implemented the eGFR calculation approach that does not have a coefficient for race that conforms to the NKF-ASN Task Force Recommendations. Performed By: #### 4 6124 #### LAB [address] [address] Yusuf Villaseñor M.D. [id number] Sodium [Moles/Vol] 133 mmol/L Low 135-145 [facility] Comment on above: Order Comment: [facility] has implemented the eGFR calculation approach that does not have a coefficient for race that conforms to the NKF-ASN Task Force Recommendations. Performed By: #### 4 6124 #### LAB [address] [address] Yusuf Villaseñor M.D. [id number] Urea nitrogen [Mass/Vol] 43 mg/dL High 8-25 [facility] Comment on above: Order Comment: [facility] has implemented the eGFR calculation approach that does not have a coefficient for race that conforms to the NKF-ASN Task Force Recommendations. Performed By: #### 4 6124 #### LAB [address] [address] Yusuf Villaseñor M.D. [id number] Urea nitrogen/Creatinine [Mass ratio] 20.4 mg/mg High 10.0-20.0 [facility] Comment on above: Order Comment: [facility] has implemented the eGFR calculation approach that does not have a coefficient for race that conforms to the NKF-ASN Task Force Recommendations. Performed By: #### 4 6124 ####[facility] [address] [address] Yusuf Villaseñor M.D. [id number] BETA-HYDROXYBUTYRATEon 01-29 BETA-HYDROXYBUTYRATE 0.9 mmol/L High 0.0-0.3 [facility] Comment on above: Performed By: #### 4 5139 #### LAB [address] [address] Yusuf Villaseñor M.D. [id number] BETA-HYDROXYBUTYRATE 0.8 mmol/L High 0.0-0.3 [facility] Comment on above: Performed By: #### 4 5139 #### LAB [address] [address] Yusuf Villaseñor M.D. [id number] BETA-HYDROXYBUTYRATE < Normal 0.0-0.3 [facility] Comment on above: Performed By: #### 4 5139 ####[facility] [address] [address] Yusuf Villaseñor M.D. [id number] BETA-HYDROXYBUTYRATE 0.1 mmol/L Normal 0.0-0.3 [facility] Comment on above: Performed By: #### 4 5139 #### LAB [address] [address] Yusuf Villaseñor M.D. [id number] CONSULTon 01-29-[address] [facility] CONSULT Normal [facility] CONSULT [facility] CPKon 01-29-2025 CPK 828 U/L High 60-225 [facility] Comment on above: Performed By: #### 4 8261 #### LAB [address] [address] Yusuf Villaseñor M.D. [id number] CT UPPER EXTREMITY LEFT SOFT TISSUE WITHOUT CONTRASTon 01-29-2025 CT UPPER EXTREMITY LEFT SOFT TISSUE WITHOUT CONTRAST [facility] Comment on above: Order Comment: Injur y/Trauma or Illness?:Illness/OtherHow long have you had these symptoms (acute/chronic)?:AcuteReason for exam?:pain, swelling left forearm and hand. possible cellulitis.Type of Exam?:Subsequent/Follow-upAdditional signs and symptoms?:. ECHOCARDIOGRAM COMPLETEon ECHOCARDIOGRAM COMPLETE Normal [facility] MAGNESIUM LEVELon 01-29-2025 Magnesium [Mass/Vol] 2.0 mg/dL Normal 1.6-2.4 [facility] Comment on above: Performed By: #### 4 6109 ####[facility] [address] [address] Yusuf Villaseñor M.D. [id number] Magnesium [Mass/Vol] 2.1 mg/dL Normal 1.6-2.4 [facility] Comment on above: Performed By: #### 4 6109 #### LAB [address] [place], [place] [address] Yusuf Villaseñor M.D. [id number] MRSA DNA AMPLIFIED PROBEon 0 01-29-2025 MRSA DNA AMPLIFIED PROBE Negative Normal Not Detected, MRSA NEGATIVE [facility] Comment on above: Performed By: #### 4 8061 #### LAB [address] [address] Yusuf Villaseñor M.D. [id number] NT PRO BNPon 01-29-2025 Natriuretic peptide B (Bld) [Mass/Vol] 76794 pg/mL High 0-300 [facility] Comment on above: Order Comment: Pride Study Cut-offsRule In:< /= 50 Years >450 pg/mL51 Years - 75 Years >900 pg/mL76 Years - 99 Years >1800 pg/mLRule Out:All patients <300 pg/mL Performed By: #### 4 7395 #### LAB [address] [address] Yusuf Villaseñor M.D. [id number] PHOSPHORUSon 01-29-2025 Phosphate [Mass/Vol] 3.9 mg/dL High 2.3-3.7 [facility] Comment on above: Performed By: #### 4 6299 #### LAB [address] [address] Yusuf Villaseñor M.D. [id number] POC GLUCOSE - [facility] 025 Glucose [Mass/Vol] 119 mg/dL High 65-99 [facility] Glucose [Mass/Vol] 122 mg/dL High 65-99 [facility] Glucose [Mass/Vol] 128 mg/dL High 65-99 [facility] Glucose [Mass/Vol] 119 mg/dL High 65-99 [facility] Glucose [Mass/Vol] 105 mg/dL High 65-99 [facility] Glucose [Mass/Vol] 93 mg/dL Normal 65-99 [facility] Glucose [Mass/Vol] 94 mg/dL Normal 65-99 [facility] Glucose [Mass/Vol] 118 mg/dL High 65-99 [facility] Glucose [Mass/Vol] 137 mg/dL High 65-99 [facility] Glucose [Mass/Vol] 183 mg/dL High 65-99 [facility] Glucose [Mass/Vol] 186 mg/dL High 65-99 [facility] Glucose [Mass/Vol] 209 mg/dL High 65-99 [facility] Glucose [Mass/Vol] 290 mg/dL High 65-99 [facility] Glucose [Mass/Vol] 291 mg/dL High 65-99 [facility] Glucose [Mass/Vol] 348 mg/dL High 65-99 [facility] Glucose [Mass/Vol] 394 mg/dL High 65-99 [facility] Glucose [Mass/Vol] 409 mg/dL Off scale high 65-99 [facility] Comment on above: Order Comment: Criti ian result acted upon time of test. Test performed at bedside. Glucose [Mass/Vol] 456 mg/dL Off scale high 65-99 [facility] Comment on above: Order Comment: Criti ian result acted upon time of test. Test performed at bedside. POC VENOUS BLOOD GAS PANEL-P AMANDEEP Dupont 01-29-2025 BASE EXCESS, VENOUS -7.4 Low -2.0-2.0 [facility] CALCIUM IONIZED 4.2 mg/dL Low 4.5-5.3 [facility] CARBOXYHEMOGLOBIN 2.5 % of total Hb High <=1.5 [facility] Comment on above: Result Comment: Refe kenji Ranges:Suburban Non-smokers: <1.5%Smokers: 1.5-5.0%Heavy Smokers: 5.0-9.0% Chloride [Moles/Vol] 105 mmol/L Normal 98-108 [facility] FIO2 32 Normal [facility] Glucose [Mass/Vol] 102 mg/dL High 65-99 [facility] HCO3 (Bld) [Moles/Vol] 18.7 mmol/L Low 24.0-28.0 [facility] Hematocrit (Bld) [Volume fraction] 33.5 % Low 41.0-53.0 [facility] Hemoglobin (Bld) [Mass/Vol] 10.9 g/dL Low 13.5-17.5 [facility] LACTIC ACID, WHOLE BLOOD 2.5 mmol/L High 0.6-2.0 [facility] METHEMOGLOBIN 0.3 % Normal 0.0-2.0 [facility] O2HB 90.1 % Normal No established reference range [facility] Oxygen saturation in Blood 92.7 % High 40.0-70.0 [facility] PCO2 VENOUS 39.0 mm Hg Low 41.0-51.0 [facility] PH VENOUS 7.29 Low 7.32-7.42 [facility] PO2 VENOUS 69 mm Hg High 25-40 [facility] Potassium [Moles/Vol] 4.7 mmol/L Normal 3.5-5.1 [facility] Sodium [Moles/Vol] 135 mmol/L Normal 135-145 [facility] SPECIMEN SOURCE RADIANCE Not specified Normal [facility] PT/INRon 01-29-2025 INR Coag (PPP) [Relative time] 2.5 {INR} High 0.8-1.1 [facility] Comment on above: Order Comment: Annie the induction phase of oral anticoagulation, the INR may not reflect the anticoagulation status of the patient. Therapeutic ranges for INR's are:Most clinical situations: INR 2.0-3.0Mechanical Prosthetic Valve: INR 2.5-3.5Critical: INR >5.0 Performed By: #### 4 6391 ####[facility] [address] [address] Yusuf Villaseñor M.D. [id number] PT Coag (PPP) [Time] 27.5 s High 11.8-14.3 [facility] Comment on above: Order Comment: Annie nicole the induction phase of oral anticoagulation, the INR may not reflect the anticoagulation status of the patient. Therapeutic ranges for INR's are:Most clinical situations: INR 2.0-3.0Mechanical Prosthetic Valve: INR 2.5-3.5Critical: INR >5.0 Performed By: #### 4 6391 #### LAB [address] [address] Yusuf Villaseñor M.D. [id number] REFLEX LACTIC ACID, PLASMAon 01-29-2025 LACTIC ACID, PLASMA 1.8 mmol/L Normal 0.6-2.0 [facility] Comment on above: Performed By: #### L [id number] ####[facility] [address] [address] Yusuf Villaseñor M.D. [id number] LACTIC ACID, PLASMA 2.9 mmol/L High 0.6-2.0 [facility] Comment on above: Performed By: #### L [id number] ####[facility] [address] [id number] Yusuf Villaseñor M.D. [id number] LACTIC ACID, PLASMA 2.7 mmol/L High 0.6-2.0 [facility] Comment on above: Performed By: #### L [id number] ####[facility] [address] [address] Yusuf Villaseñor M.D. [id number] LACTIC ACID, PLASMA 3.3 mmol/L High 0.6-2.0 [facility] Comment on above: Performed By: #### L [id number] #### LAB [address] [address] Yusuf Villaseñor M.D. [id number] TROPONIN X 2 (NOW AND REPEAT IN 2 HOURS)on 01-29-2025 TROPONIN T DELTA % NG/L 2 % Normal <20% of Baseline Troponin [facility] Comment on above: Performed By: #### 4 6608 ####[facility] [address] [address] Ysuuf Villaseñor M.D. [id number] TROPONIN T DELTA CHANGE INTERPRETATION Probable non-acute cardiac injury or late presentation of acute injury. Normal [facility] Comment on above: Performed By: #### 4 6608 ####[facility] [address] [address] Yusuf Villaseñor M.D. [id number] TROPONIN T NG/L 2278 ng/L Off scale high <=22 [facility] Comment on above: Performed By: #### 4 6608 #### LAB [address] [address] Yusuf Villaseñor M.D. [id number] BASELINE TROPONIN T NG/L 2216 ng/L Off scale high <=22 [facility] Comment on above: Performed By: #### 4 6608 #### LAB [address] [address] Yusuf Villaseñor M.D. [id number] TROPONIN T INTERPRETATION Possible acute cardiac injury. [facility] Comment on above: Performed By: #### 4 6608 #### LAB [address] [address] Yusuf Villaseñor M.D. [id number] TROPONIN T DELTA % NG/L 576 % Off scale high <2 0% of Baseline Troponin [facility] Comment on above: Performed By: #### 4 6608 #### LAB [address] [address] Yusuf Villaseñor M.D. [id number] TROPONIN T DELTA CHANGE INTERPRETATION Probable acute injury or myocardial infarction. [facility] Comment on above: Performed By: #### 4 6608 #### LAB [address] [address] Yusuf Villaseñor M.D. [id number] TROPONIN T NG/L 1670 ng/L Off scale high <=22 [facility] Comment on above: Performed By: #### 4 6608 #### LAB [address] [address] Yusuf Villaseñor M.D. [id number] URINE AEROBIC CULTUREon 01-09 URINE AEROBIC CULTURE URINE CULTURE No Growth (<1,000 CFU/mL) [facility] Comment on above: Performed By: #### 4 4053 ####[facility] [address] [address] Giorgio Williamson M.D. [id number] US RENAL AND BLADDERon 01-29 US RENAL AND BLADDER [facility] Comment on above: Order Comment: Injur y/Trauma or Illness?:Illness/OtherHow long have you had these symptoms (acute/chronic)?:AcuteReason for exam?:AKIHistory of cancer?:uSurgeries, chemotherapy, or radiation?:uType of Exam?:InitialAdditional signs and symptoms?:none BASIC METABOLIC PANELon 07-2 Anion gap [Moles/Vol] 25 mmol/L High 10-20 [facility] Comment on above: Order Comment: [facility] has implemented the eGFR calculation approach that does not have a coefficient for race that conforms to the NKF-ASN Task Force Recommendations. Performed By: #### 4 6124 #### LAB [address] [address] Yusuf Villaseñor M.D. [id number] Calcium [Mass/Vol] 8.2 mg/dL Low 8.4-10.2 [facility] Comment on above: Order Comment: [facility] has implemented the eGFR calculation approach that does not have a coefficient for race that conforms to the NKF-ASN Task Force Recommendations. Performed By: #### 4 6124 #### LAB [address] [address] Yusuf Villaseñor M.D. [id number] Chloride [Moles/Vol] 96 mmol/L Low 98-108 [facility] Comment on above: Order Comment: [facility] has implemented the eGFR calculation approach that does not have a coefficient for race that conforms to the NKF-ASN Task Force Recommendations. Performed By: #### 4 6124 #### LAB [address] [place], [place] [address] Yusuf Villaseñor M.D. [id number] Creatinine [Mass/Vol] 1.86 mg/dL High 0.80-1.30 [facility] Comment on above: Order Comment: [facility] has implemented the eGFR calculation approach that does not have a coefficient for race that conforms to the NKF-ASN Task Force Recommendations. Performed By: #### 4 6124 #### LAB [address] [address] Yusuf Villaseñor M.D. [id number] EGFR 36 mL/min/1.73 m2 Low >=60 [facility] Comment on above: Order Comment: [facility] has implemented the eGFR calculation approach that does not have a coefficient for race that conforms to the NKF-ASN Task Force Recommendations. Result Comment: Aide mated GFR was calculated using the 2020 CKD-EPI creatinine equation. Performed By: #### 4 6116 #### LAB [address] [address] Yusuf Villaseñor M.D. [id number] Glucose [Mass/Vol] 464 mg/dL Off scale high 65-99 [facility] Comment on above: Order Comment: [facility] has implemented the eGFR calculation approach that does not have a coefficient for race that conforms to the NKF-ASN Task Force Recommendations. Performed By: #### 4 6124 #### LAB [address] [address] Yusuf Villaseñor M.D. [id number] HCO3 (Bld) [Moles/Vol] 13 mmol/L Low 21-32 [facility] Comment on above: Order Comment: [facility] has implemented the eGFR calculation approach that does not have a coefficient for race that conforms to the NKF-ASN Task Force Recommendations. Performed By: #### 4 6124 #### LAB [address] [address] Yusuf Villaseñor M.D. [id number] Potassium [Moles/Vol] 4.6 mmol/L Normal 3.5-5.1 [facility] Comment on above: Order Comment: [facility] has implemented the eGFR calculation approach that does not have a coefficient for race that conforms to the NKF-ASN Task Force Recommendations. Performed By: #### 4 6124 #### LAB [address] [address] Yusuf Villaseñor M.D. [id number] Sodium [Moles/Vol] 129 mmol/L Low 135-145 [facility] Comment on above: Order Comment: [facility] has implemented the eGFR calculation approach that does not have a coefficient for race that conforms to the NKF-ASN Task Force Recommendations. Performed By: #### 4 6124 #### LAB [address] [address] Yusuf Villaseñor M.D. [id number] Urea nitrogen [Mass/Vol] 38 mg/dL High 8-25 [facility] Comment on above: Order Comment: [facility] has implemented the eGFR calculation approach that does not have a coefficient for race that conforms to the NKF-ASN Task Force Recommendations. Performed By: #### 4 6124 #### LAB [address] [address] Yusuf Villaseñor M.D. [id number] Urea nitrogen/Creatinine [Mass ratio] 20.4 mg/mg High 10.0-20.0 [facility] Comment on above: Order Comment: [facility] has implemented the eGFR calculation approach that does not have a coefficient for race that conforms to the NKF-ASN Task Force Recommendations. Performed By: #### 4 6124 #### LAB [address] [address] Yusuf Villaseñor M.D. [id number] BETA-HYDROXYBUTYRATEon 01-28 BETA-HYDROXYBUTYRATE 2.1 mmol/L High 0.0-0.3 [facility] Comment on above: Performed By: #### 4 5139 #### LAB [address] [address] Yusuf Villaseñor M.D. [id number] BETA-HYDROXYBUTYRATE 4.2 mmol/L High 0.0-0.3 [facility] Comment on above: Performed By: #### 4 5139 #### LAB [address] [address] Yusuf Villaseñor M.D. [id number] BILIRUBIN, DIRECTon 01-29-20 Bilirubin.indirect [Mass/Vol] 1.0 mg/dL High 0.0-0.4 [facility] Comment on above: Performed By: #### 4 5145 #### LAB [address] [address] Yusuf Villaseñor M.D. [id number] BLOOD CULTURE AEROBIC/ANAERO BICon 01-28-2025 BLOOD CULTURE AEROBIC/ANAEROBIC Abnormal [facility] Comment on above: Performed By: #### 4 4014 ####[facility] [address] [place] [address] Giorgio Williamson M.D. [id number] BLOOD CULTURE ID PCRon 01-28 BLOOD CULTURE ID PCR Abnormal Not Detected [facility] Comment on above: Performed By: #### L [id number] ####[facility] [address] [place] [address] Giorgio Williamson M.D. [id number] CBCon 01-28-2025 AUTO NRBC 0.1 % Normal [facility] Comment on above: Order Comment: While on heparin Performed By: #### 4 5218 #### LAB [address] [address] Yusuf Villaseñor M.D. [id number] AUTO NRBC ABS COUNT 0.02 K/mcL High 0.00-0.00 [facility] Comment on above: Order Comment: While on heparin Performed By: #### 4 5218 #### LAB [address] [address] Yusuf Villaseñor M.D. [id number] Erythrocyte distribution width (RBC) [Ratio] 14.2 % Normal 11.6-14.8 [facility] Comment on above: Order Comment: While on heparin Performed By: #### 4 5218 #### LAB [address] [address] Yusuf Villaseñor M.D. [id number] Hematocrit (Bld) [Volume fraction] 34.2 % Low 41.0-53.0 [facility] Comment on above: Order Comment: While on heparin Performed By: #### 4 5218 #### LAB [address] [address] Yusuf Villaseñor M.D. [id number] Hemoglobin (Bld) [Mass/Vol] 10.8 g/dL Low 13.5-17.5 [facility] Comment on above: Order Comment: While on heparin Performed By: #### 4 5218 ####[facility] [address] [address] Yusuf Villsaeñor M.D. [id number] MCH (RBC) [Entitic mass] 27.2 pg Normal 26.0-34.0 [facility] Comment on above: Order Comment: While on heparin Performed By: #### 4 5218 #### LAB [address] [address] Yusuf Villaseñor M.D. [id number] MCV (RBC) [Entitic vol] 86.1 fL Normal 80.0-100.0 [facility] Comment on above: Order Comment: While on heparin Performed By: #### 4 5218 #### LAB [address] [address] Yusuf Villaseñor M.D. [id number] MEAN CORPUSCULAR HEMOGLOBIN CONC 31.6 g/dL Normal 31.0-37.0 [facility] Comment on above: Order Comment: While on heparin Performed By: #### 4 5218 #### LAB [address] [address] Yusuf Villaseñor M.D. [id number] Platelet mean volume (Bld) [Entitic vol] 10.0 fL Normal 9.4-12.4 [facility] Comment on above: Order Comment: While on heparin Performed By: #### 4 [id number] #### LAB [address] [address] Yusuf Villaseñor M.D. [id number] Platelets (Bld) [#/Vol] 162 10*3/uL Normal 150-400 [facility] Comment on above: Order Comment: While on heparin Performed By: #### 4 [id number] #### LAB [address] [address] Yusuf Villaseñor M.D. [id number] RBC (Bld) [#/Vol] 3.97 10*6/uL Low 4.50-5.90 [facility] Comment on above: Order Comment: While on heparin Performed By: #### 4 [id number] #### LAB [address] [address] Yusuf Villaseñor M.D. [id number] WBC (Bld) [#/Vol] 22.21 10*3/uL High 4.50-11.00 [facility] Comment on above: Order Comment: While on heparin Performed By: #### 4 [id number] #### LAB [address] [address] Yusuf Villaseñor M.D. [id number] CBC WITH AUTO DIFFERENTIALon 01-28-2025 AUTO NRBC 0.0 % [facility] Comment on above: Performed By: #### L [id number] #### LAB [address] [address] Yusuf Villaseñor M.D. [id number] AUTO NRBC ABS COUNT 0.00 K/mcL Normal 0.00-0.00 [facility] Comment on above: Performed By: #### L [id number] #### LAB [address] [place] [address] Yusuf Vlilaseñor M.D. [id number] BASOPHILS ABSOLUTE COUNT 0.04 K/mcL Normal 0.00-0.30 [facility] Comment on above: Performed By: #### L [id number] #### LAB [address] [place] [address] Yusuf Villaseñor M.D. [id number] Basophils/100 WBC (Bld) 0.2 % [facility] Comment on above: Performed By: #### L [id number] #### LAB [address] [place] [address] Yusuf Villaseñor M.D. [id number] Eosinophils (Bld) [#/Vol] 0.00 10*3/uL Normal 0.00-0.50 [facility] Comment on above: Performed By: #### L [id number] #### LAB [address] [place] [address] Yusuf Villaseñor M.D. [id number] Eosinophils/100 WBC (Bld) 0.0 % [facility] Comment on above: Performed By: #### L [id number] #### LAB [address] [place] [address] Yusuf Villaseñor M.D. [id number] Erythrocyte distribution width (RBC) [Ratio] 14.1 % Normal 11.6-14.8 [facility] Comment on above: Performed By: #### L [id number] #### LAB [address] [address] Yusuf Villaseñor M.D. [id number] Hematocrit (Bld) [Volume fraction] 36.6 % Low 41.0-53.0 [facility] Comment on above: Performed By: #### L [id number] #### LAB [address] [address] Yusuf Villaseñor M.D. [id number] Hemoglobin (Bld) [Mass/Vol] 11.7 g/dL Low 13.5-17.5 [facility] Comment on above: Performed By: #### L [id number] #### LAB [address] [address] Yusuf Villaseñor M.D. [id number] IG ABSOLUTE 0.31 K/mcL High 0.00-0.30 [facility] Comment on above: Performed By: #### L [id number] #### LAB [address] [address] Yusuf Villaseñor M.D. [id number] IG PERCENT 1.70 % Normal [facility] Comment on above: Result Comment: The IG parameter is the percentage of metamyelocytes, myelocytes and promyelocytes. An immature granulocyte count (IG) of 1% or more suggests the possibility of infection, an IG count of 3% is very likely related to an infection. Performed By: #### L [id number] #### LAB [address] [place] [address] Yusuf Villaseñor M.D. [id number] Lymphocytes (Bld) [#/Vol] 0.31 10*3/uL Low 0.90-4.00 [facility] Comment on above: Performed By: #### L [id number] #### LAB [address] [place] [address] Yusuf Villaseñor M.D. [id number] Lymphocytes/100 WBC (Bld) 1.7 % Normal [facility] Comment on above: Performed By: #### L [id number] #### LAB [address] [address] Yusuf Villaseñor M.D. [id number] MCH (RBC) [Entitic mass] 27.1 pg Normal 26.0-34.0 [facility] Comment on above: Performed By: #### L [id number] #### LAB [address] [address] Yusuf Villaseñor M.D. [id number] MCV (RBC) [Entitic vol] 84.7 fL Normal 80.0-100.0 [facility] Comment on above: Performed By: #### L [id number] #### LAB [address] [address] Yusuf Villaseñor M.D. [id number] MEAN CORPUSCULAR HEMOGLOBIN CONC 32.0 g/dL Normal 31.0-37.0 [facility] Comment on above: Performed By: #### L [id number] #### LAB [address] [address] Yusuf Villaseñor M.D. [id number] Monocytes (Bld) [#/Vol] 0.58 10*3/uL Normal 0.30-0.90 [facility] Comment on above: Performed By: #### L [id number] #### LAB [address] [place] [address] Yusuf Villaseñor M.D. [id number] Monocytes/100 WBC (Bld) 3.2 % Normal [facility] Comment on above: Performed By: #### L [id number] ####[facility] LAB [address] [address] Yusuf Villaseñor M.D. [id number] NEUTROPHILS ABSOLUTE COUNT 16.90 K/mcL High 1.70-7.00 [facility] Comment on above: Performed By: #### L [id number] #### LAB [address] [place] [address] Yusuf Villaseñor M.D. [id number] Neutrophils/100 WBC (Bld) 93.2 % Normal [facility] Comment on above: Performed By: #### L [id number] ####[facility] LAB [address] [address] Yusuf Villaseñor M.D. [id number] Platelet mean volume (Bld) [Entitic vol] 9.4 fL Normal 9.4-12.4 [facility] Comment on above: Performed By: #### L [id number] ####[facility] LAB [address] [address] Yusuf Villaseñor M.D. [id number] Platelets (Bld) [#/Vol] 170 10*3/uL Normal 150-400 [facility] Comment on above: Performed By: #### L [id number] ####[facility] LAB [address] [address] Yusuf Villaseñor M.D. [id number] RBC (Bld) [#/Vol] 4.32 10*6/uL Low 4.50-5.90 [facility] Comment on above: Performed By: #### L [id number] ####[facility] LAB [address] [address] Yusuf Villaseñor M.D. [id number] WBC (Bld) [#/Vol] 18.14 10*3/uL High 4.50-11.00 [facility] Comment on above: Performed By: #### L [id number] #### LAB [address] [address] Yusuf Villaseñor M.D. [id number] COMPREHENSIVE METABOLIC PANE Ruddy 01-28-2025 Albumin [Mass/Vol] 3.6 g/dL Normal 3.2-5.2 [facility] Comment on above: Order Comment: [facility] has implemented the eGFR calculation approach that does not have a coefficient for race that conforms to the NKF-ASN Task Force Recommendations. Performed By: #### 4 [id number] ####[facility] LAB [address] [address] Yusuf Villaseñor M.D. [id number] ALP [Catalytic activity/Vol] 115 U/L Normal 40-150 [facility] Comment on above: Order Comment: [facility] has implemented the eGFR calculation approach that does not have a coefficient for race that conforms to the NKF-ASN Task Force Recommendations. Performed By: #### 4 [id number] #### LAB [address] [address] Yusuf Villaseñor M.D. [id number] ALT [Catalytic activity/Vol] 102 U/L High 0-50 U/L [facility] Comment on above: Order Comment: [facility] has implemented the eGFR calculation approach that does not have a coefficient for race that conforms to the NKF-ASN Task Force Recommendations. Performed By: #### 4 [id number] #### LAB [address] [address] Yusuf Villaseñor M.D. [id number] Anion gap [Moles/Vol] 29 mmol/L High 10-20 [facility] Comment on above: Order Comment: [facility] has implemented the eGFR calculation approach that does not have a coefficient for race that conforms to the NKF-ASN Task Force Recommendations. Performed By: #### 4 [id number] #### LAB [address] [address] Yusuf Villaseñor M.D. [id number] AST [Catalytic activity/Vol] 139 U/L High 0-50 U/L [facility] Comment on above: Order Comment: [facility] has implemented the eGFR calculation approach that does not have a coefficient for race that conforms to the NKF-ASN Task Force Recommendations. Performed By: #### 4 6126 #### LAB [address] [address] Yusuf Villaseñor M.D. [id number] Bilirubin [Mass/Vol] 1.7 mg/dL High 0.0-1.3 [facility] Comment on above: Order Comment: [facility] has implemented the eGFR calculation approach that does not have a coefficient for race that conforms to the NKF-ASN Task Force Recommendations. Performed By: #### 4 6126 #### LAB [address] [place], [place] [address] Yusuf Villaseñor M.D. [id number] Calcium [Mass/Vol] 9.1 mg/dL Normal 8.4-10.2 [facility] Comment on above: Order Comment: [facility] has implemented the eGFR calculation approach that does not have a coefficient for race that conforms to the NKF-ASN Task Force Recommendations. Performed By: #### 4 6126 #### LAB [address] [address] Yusuf Villaseñor M.D. [id number] Chloride [Moles/Vol] 88 mmol/L Low 98-108 [facility] Comment on above: Order Comment: [facility] has implemented the eGFR calculation approach that does not have a coefficient for race that conforms to the NKF-ASN Task Force Recommendations. Performed By: #### 4 6126 #### LAB [address] [address] Yusuf Villaseñor M.D. [id number] Creatinine [Mass/Vol] 1.65 mg/dL High 0.80-1.30 [facility] Comment on above: Order Comment: [facility] has implemented the eGFR calculation approach that does not have a coefficient for race that conforms to the NKF-ASN Task Force Recommendations. Performed By: #### 4 6126 #### LAB [address] [address] Yusuf Villaseñor M.D. [id number] EGFR 42 mL/min/1.73 m2 Low >=60 [facility] Comment on above: Order Comment: [facility] has implemented the eGFR calculation approach that does not have a coefficient for race that conforms to the NKF-ASN Task Force Recommendations. Result Comment: Aide mated GFR was calculated using the 2020 CKD-EPI creatinine equation. Performed By: #### 4 6126 #### LAB [address] [address] Yusuf Villaseñor M.D. [id number] Glucose [Mass/Vol] 528 mg/dL Off scale high 65-99 [facility] Comment on above: Order Comment: [facility] has implemented the eGFR calculation approach that does not have a coefficient for race that conforms to the NKF-ASN Task Force Recommendations. Performed By: #### 4 6126 #### LAB [address] [address] Yusuf Villaseñor M.D. [id number] HCO3 (Bld) [Moles/Vol] 14 mmol/L Low 21-32 [facility] Comment on above: Order Comment: [facility] has implemented the eGFR calculation approach that does not have a coefficient for race that conforms to the NKF-ASN Task Force Recommendations. Performed By: #### 4 6126 #### LAB [address] [address] Yusuf Villaseñor M.D. [id number] Potassium [Moles/Vol] 5.1 mmol/L Normal 3.5-5.1 [facility] Comment on above: Order Comment: [facility] has implemented the eGFR calculation approach that does not have a coefficient for race that conforms to the NKF-ASN Task Force Recommendations. Performed By: #### 4 6126 #### LAB [address] [address] Yusuf Villaseñor M.D. [id number] Protein [Mass/Vol] 7.2 g/dL Normal 6.0-8.0 [facility] Comment on above: Order Comment: [facility] has implemented the eGFR calculation approach that does not have a coefficient for race that conforms to the NKF-ASN Task Force Recommendations. Performed By: #### 4 6126 #### LAB [address] [address] Yusuf Villaseñor M.D. [id number] Sodium [Moles/Vol] 126 mmol/L Low 135-145 [facility] Comment on above: Order Comment: [facility] has implemented the eGFR calculation approach that does not have a coefficient for race that conforms to the NKF-ASN Task Force Recommendations. Performed By: #### 4 6126 #### LAB [address] [address] Yusuf Villaseñor M.D. [id number] Urea nitrogen [Mass/Vol] 34 mg/dL High 8-25 [facility] Comment on above: Order Comment: [facility] has implemented the eGFR calculation approach that does not have a coefficient for race that conforms to the NKF-ASN Task Force Recommendations. Performed By: #### 4 6126 #### LAB [address] [place], [place] [address] Yusuf Villaseñor M.D. [id number] Urea nitrogen/Creatinine [Mass ratio] 20.6 mg/mg High 10.0-20.0 [facility] Comment on above: Order Comment: [facility] has implemented the eGFR calculation approach that does not have a coefficient for race that conforms to the NKF-ASN Task Force Recommendations. Performed By: #### 4 6126 #### LAB [address] [place], [place] [address] Yusuf Villaseñor M.D. [id number] CRP, INFLAMMATIONon 01-29-20 CRP [Mass/Vol] 311.0 mg/L High 0.0-10.0 [facility] Comment on above: Performed By: #### 4 5334 #### LAB [address] [place], [place] [address] Yusuf Villaseñor M.D. [id number] CT PULMONARY ARTERIESon 01-09 CT PULMONARY ARTERIES [facility] Comment on above: Order Comment: Injur y/Trauma or Illness?:Illness/OtherHow long have you had these symptoms (acute/chronic)?:AcuteReason for exam?:tachycardia, sobType of Exam?:InitialAdditional signs and symptoms?:pt on eliquis D-DIMER, QUANTITATIVEon 01-09 D-DIMER QUANTITATIVE 3.48 mcg/mL FEU High 0.27-0.49 [facility] Comment on above: Order Comment: A D-d [...] By: #### 4 5434 #### LAB [address] [address] Yusuf Villaseñor M.D. [id number] ED Prov Noteon 01-28-2025 ED Prov Note Normal [facility] H AND Maximiliano 01-28-2025 H AND P Normal [facility] HEMOGLOBIN A1Con 01-28-2025 Glucose [Mass/Vol] 203 mg/dL High 74-114 [facility] Comment on above: Performed By: #### 4 8202 #### LAB [address] [address] Yusuf Villaseñor M.D. [id number] HbA1c (Bld) [Mass fraction] 8.7 % High 4.2-5.6 [facility] Comment on above: Performed By: #### 4 8202 #### LAB [address] [address] Yusuf Villaseñor M.D. [id number] LACTIC ACID, PLASMAon 2024 LACTIC ACID, PLASMA 6.0 mmol/L Off scale high 0.6-2.0 [facility] Comment on above: Performed By: #### 4 6053 #### LAB [address] [address] Yusuf Villaseñor M.D. [id number] MAGNESIUM LEVELon 01-28-2025 Magnesium [Mass/Vol] 1.9 mg/dL Normal 1.6-2.4 [facility] Comment on above: Performed By: #### 4 6109 ####[facility] LAB [address] [address] Yusuf Villaseñor M.D. [id number] PHOSPHORUSon 01-28-2025 Phosphate [Mass/Vol] 3.9 mg/dL High 2.3-3.7 [facility] Comment on above: Performed By: #### 4 6299 #### LAB [address] [id number] Yusuf Villaseñor M.D. [id number] [facility] POC GLUCOSE > Off scale high 65-99 [facility] Comment on above: Order Comment: Criti ian result acted upon time of test. Test performed at bedside. POC VENOUS BLOOD GAS PANEL-P AMANDEEP Dupont 01-28-2025 BASE EXCESS, VENOUS -12.8 Low -2.0-2.0 [facility] Comment on above: Order Comment: Criti ian result acted upon time of test. Test performed at bedside. CALCIUM IONIZED 4.2 mg/dL Low 4.5-5.3 [facility] Comment on above: Order Comment: Criti ian result acted upon time of test. Test performed at bedside. CARBOXYHEMOGLOBIN 2.5 % of total Hb High <=1.5 [facility] Comment on above: Order Comment: Criti ian result acted upon time of test. Test performed at bedside. Result Comment: Refe rence Ranges:[facility] Non-smokers: <1.5%Smokers: 1.5-5.0%Heavy Smokers: 5.0-9.0% Chloride [Moles/Vol] 101 mmol/L Normal 98-108 [facility] Comment on above: Order Comment: Criti ian result acted upon time of test. Test performed at bedside. FIO2 40 Normal [facility] Comment on above: Order Comment: Criti ian result acted upon time of test. Test performed at bedside. Glucose [Mass/Vol] 450 mg/dL Off scale high 65-99 [facility] Comment on above: Order Comment: Criti ian result acted upon time of test. Test performed at bedside. HCO3 (Bld) [Moles/Vol] 13.4 mmol/L Low 24.0-28.0 [facility] Comment on above: Order Comment: Criti ian result acted upon time of test. Test performed at bedside. Hematocrit (Bld) [Volume fraction] 35.0 % Low 41.0-53.0 [facility] Comment on above: Order Comment: Criti ian result acted upon time of test. Test performed at bedside. Hemoglobin (Bld) [Mass/Vol] 11.4 g/dL Low 13.5-17.5 [facility] Comment on above: Order Comment: Criti ian result acted upon time of test. Test performed at bedside. LACTIC ACID, WHOLE BLOOD 5.7 mmol/L Off scale high 0.6-2.0 [facility] Comment on above: Order Comment: Criti ian result acted upon time of test. Test performed at bedside. METHEMOGLOBIN 0.5 % Normal 0.0-2.0 [facility] Comment on above: Order Comment: Criti ian result acted upon time of test. Test performed at bedside. O2HB 90.4 % Normal No established reference range [facility] Comment on above: Order Comment: Criti ian result acted upon time of test. Test performed at bedside. Oxygen saturation in Blood 93.3 % High 40.0-70.0 [facility] Comment on above: Order Comment: Criti ian result acted upon time of test. Test performed at bedside. PCO2 VENOUS 31.4 mm Hg Low 41.0-51.0 [facility] Comment on above: Order Comment: Criti ian result acted upon time of test. Test performed at bedside. PH VENOUS 7.24 Low 7.32-7.42 [facility] Comment on above: Order Comment: Criti ian result acted upon time of test. Test performed at bedside. PO2 VENOUS 74 mm Hg High 25-40 [facility] Comment on above: Order Comment: Criti ian result acted upon time of test. Test performed at bedside. Potassium [Moles/Vol] 4.4 mmol/L Normal 3.5-5.1 [facility] Comment on above: Order Comment: Criti ian result acted upon time of test. Test performed at bedside. Sodium [Moles/Vol] 130 mmol/L Low 135-145 [facility] Comment on above: Order Comment: Criti ian result acted upon time of test. Test performed at bedside. SPECIMEN SOURCE RADIANCE Not specified Normal [facility] Comment on above: Order Comment: Criti ian result acted upon time of test. Test performed at bedside. BASE EXCESS, VENOUS -10.4 Low -2.0-2.0 [facility] Comment on above: Order Comment: Criti ian result acted upon time of test. Test performed at bedside. CALCIUM IONIZED 4.4 mg/dL Low 4.5-5.3 [facility] Comment on above: Order Comment: Criti ian result acted upon time of test. Test performed at bedside. CARBOXYHEMOGLOBIN 2.5 % of total Hb High <=1.5 [facility] Comment on above: Order Comment: Criti ian result acted upon time of test. Test performed at bedside. Result Comment: Refe rence Ranges:[place] Non-smokers: <1.5%Smokers: 1.5-5.0%Heavy Smokers: 5.0-9.0% Chloride [Moles/Vol] 94 mmol/L Low 98-108 [facility] Comment on above: Order Comment: Criti ian result acted upon time of test. Test performed at bedside. FIO2 21 Normal [facility] Comment on above: Order Comment: Criti ian result acted upon time of test. Test performed at bedside. Glucose [Mass/Vol] 522 mg/dL Off scale high 65-99 [facility] Comment on above: Order Comment: Criti ian result acted upon time of test. Test performed at bedside. HCO3 (Bld) [Moles/Vol] 14.7 mmol/L Low 24.0-28.0 [facility] Comment on above: Order Comment: Criti ian result acted upon time of test. Test performed at bedside. Hematocrit (Bld) [Volume fraction] 36.4 % Low 41.0-53.0 [facility] Comment on above: Order Comment: Criti ian result acted upon time of test. Test performed at bedside. Hemoglobin (Bld) [Mass/Vol] 11.9 g/dL Low 13.5-17.5 [facility] Comment on above: Order Comment: Criti ian result acted upon time of test. Test performed at bedside. LACTIC ACID, WHOLE BLOOD 5.4 mmol/L Off scale high 0.6-2.0 [facility] Comment on above: Order Comment: Criti ian result acted upon time of test. Test performed at bedside. METHEMOGLOBIN 0.5 % Normal 0.0-2.0 [facility] Comment on above: Order Comment: Criti ian result acted upon time of test. Test performed at bedside. O2HB 71.5 % Normal No established reference range [facility] Comment on above: Order Comment: Criti ian result acted upon time of test. Test performed at bedside. Oxygen saturation in Blood 73.7 % High 40.0-70.0 [facility] Comment on above: Order Comment: Criti ian result acted upon time of test. Test performed at bedside. PCO2 VENOUS 30.0 mm Hg Low 41.0-51.0 [facility] Comment on above: Order Comment: Criti ian result acted upon time of test. Test performed at bedside. PH VENOUS 7.30 Low 7.32-7.42 [facility] Comment on above: Order Comment: Criti ian result acted upon time of test. Test performed at bedside. PO2 VENOUS 42 mm Hg High 25-40 [facility] Comment on above: Order Comment: Criti ian result acted upon time of test. Test performed at bedside. Potassium [Moles/Vol] 4.9 mmol/L Normal 3.5-5.1 [facility] Comment on above: Order Comment: Criti ian result acted upon time of test. Test performed at bedside. Sodium [Moles/Vol] 127 mmol/L Low 135-145 [facility] Comment on above: Order Comment: Criti ian result acted upon time of test. Test performed at bedside. SPECIMEN SOURCE RADIANCE Not specified Normal [facility] Comment on above: Order Comment: Criti ian result acted upon time of test. Test performed at bedside. PROCALCITONINon 01-28-2025 PROCALCITONIN 2.66 ng/ml High <0.50 [facility] Comment on above: Order Comment: Resul ts >2.00 ng/ml represent a high risk of severe sepsis and/or septic shock. Performed By: #### 4 7652 #### LAB [address] [place], [place] [address] Yusuf Villaseñor M.D. [id number] REFLEX LACTIC ACID, PLASMAon 01-28-2025 LACTIC ACID, PLASMA 5.8 mmol/L Off scale high 0.6-2.0 [facility] Comment on above: Performed By: #### L [id number] ####[facility] LAB [address] [place], [place] [address] Yusuf Villaseñor M.D. [id number] SEDIMENTATION RATEon 025 SEDIMENTATION RATE, ERYTHROCYTE 69 mm/hr High 0-20 [facility] Comment on above: Performed By: #### 4 6477 #### LAB [address] [place], [place] [address] Yusuf Villaseñor M.D. [id number] TROPONIN X 2 (NOW AND REPEAT IN 2 HOURS)on 01-28-2025 TROPONIN T DELTA % NG/L 323 % Off scale high <2 0% of Baseline Troponin [facility] Comment on above: Performed By: #### 4 6608 #### LAB [address] [place] [address] Yusuf Villaseñor M.D. [id number] TROPONIN T DELTA CHANGE INTERPRETATION Probable acute injury or myocardial infarction. [facility] Comment on above: Performed By: #### 4 6608 #### LAB [address] [place] [address] Yusuf Villaseñor M.D. [id number] TROPONIN T NG/L 1046 ng/L Off scale high <=22 [facility] Comment on above: Performed By: #### 4 6608 #### LAB [address] [place] [address] Yusuf Villaseñor M.D. [id number] TROPONIN T DELTA % NG/L 186 % Off scale high <2 0% of Baseline Troponin [facility] Comment on above: Performed By: #### 4 6608 #### LAB [address] [place] [address] Yusuf Villaseñor M.D. [id number] TROPONIN T DELTA CHANGE INTERPRETATION Probable acute injury or myocardial infarction. [facility] Comment on above: Performed By: #### 4 6608 #### LAB [address] [place] [address] Yusuf Villaseñor M.D. [id number] TROPONIN T NG/L 708 ng/L Off scale high <=22 [facility] Comment on above: Performed By: #### 4 6608 #### LAB [address] [place] [address] Yusuf Villaseñor M.D. [id number] BASELINE TROPONIN T NG/L 247 ng/L Off scale high <=22 [facility] Comment on above: Performed By: #### 4 6608 #### LAB [address] [place] [address] Yusuf Villaseñor M.D. [id number] TROPONIN T INTERPRETATION Possible acute cardiac injury. [facility] Comment on above: Performed By: #### 4 [id number] #### LAB [address] [address] Yusuf Villaseñor M.D. [id number] URINALYSISon 01-28-2025 BACTERIA, URINE Rare Abnormal None Seen [facility] Comment on above: Order Comment: Micro scopic examination is performed on all urinalysis samples and only positive findings are reported. The test for blood on the chemical analytic portion of urinalysis may also be positive due to hemoglobinuria and myoglobinuria and if red blood cells are present they are quantified by microscopic examination. Performed By: #### 4 6625 #### LAB [address] [address] Yusuf Villaseñor M.D. [id number] BILIRUBIN, URINE Negative Normal Negative [facility] Comment on above: Order Comment: Micro scopic examination is performed on all urinalysis samples and only positive findings are reported. The test for blood on the chemical analytic portion of urinalysis may also be positive due to hemoglobinuria and myoglobinuria and if red blood cells are present they are quantified by microscopic examination. Performed By: #### 4 6625 #### LAB [address] [address] Yusuf Villaseñor M.D. [id number] BLOOD, URINE Small Abnormal Negative [facility] Comment on above: Order Comment: Micro scopic examination is performed on all urinalysis samples and only positive findings are reported. The test for blood on the chemical analytic portion of urinalysis may also be positive due to hemoglobinuria and myoglobinuria and if red blood cells are present they are quantified by microscopic examination. Performed By: #### 4 6625 #### LAB [address] [address] Yusuf Villaseñor M.D. [id number] Clarity (U) Clear Normal Clear [facility] Comment on above: Order Comment: Micro scopic examination is performed on all urinalysis samples and only positive findings are reported. The test for blood on the chemical analytic portion of urinalysis may also be positive due to hemoglobinuria and myoglobinuria and if red blood cells are present they are quantified by microscopic examination. Performed By: #### 4 [id number] #### LAB [address] [address] Yusuf Villaseñor M.D. [id number] Color (U) Yellow Normal Colorless, Yellow [facility] Comment on above: Order Comment: Micro scopic examination is performed on all urinalysis samples and only positive findings are reported. The test for blood on the chemical analytic portion of urinalysis may also be positive due to hemoglobinuria and myoglobinuria and if red blood cells are present they are quantified by microscopic examination. Performed By: #### 4 [id number] #### LAB [address] [address] Yusuf Villaseñor M.D. [id number] Glucose Ql (U) >=500 Abnormal Negative [facility] Comment on above: Order Comment: Micro scopic examination is performed on all urinalysis samples and only positive findings are reported. The test for blood on the chemical analytic portion of urinalysis may also be positive due to hemoglobinuria and myoglobinuria and if red blood cells are present they are quantified by microscopic examination. Performed By: #### 4 6625 #### LAB [address] [address] Yusuf Villaseñor M.D. [id number] Hyaline casts LM Ql (Urine sed) 3-5 Abnormal 0-2 [facility] Comment on above: Order Comment: Micro scopic examination is performed on all urinalysis samples and only positive findings are reported. The test for blood on the chemical analytic portion of urinalysis may also be positive due to hemoglobinuria and myoglobinuria and if red blood cells are present they are quantified by microscopic examination. Performed By: #### 4 6625 #### LAB [address] [address] Yusuf Villaseñor M.D. [id number] Ketones Ql (U) 20 mg/dL Abnormal Negative [facility] Comment on above: Order Comment: Micro scopic examination is performed on all urinalysis samples and only positive findings are reported. The test for blood on the chemical analytic portion of urinalysis may also be positive due to hemoglobinuria and myoglobinuria and if red blood cells are present they are quantified by microscopic examination. Performed By: #### 4 6625 #### LAB [address] [id number] Yusuf Villaseñor M.D. [id number] Leukocyte esterase Test strip Ql (U) Trace Abnormal Negative [facility] Comment on above: Order Comment: Micro scopic examination is performed on all urinalysis samples and only positive findings are reported. The test for blood on the chemical analytic portion of urinalysis may also be positive due to hemoglobinuria and myoglobinuria and if red blood cells are present they are quantified by microscopic examination. Performed By: #### 4 6625 #### LAB [address] [address] Yusuf Villaseñor M.D. [id number] MUCUS, URINE Rare Normal None Seen, Rare [facility] Comment on above: Order Comment: Micro scopic examination is performed on all urinalysis samples and only positive findings are reported. The test for blood on the chemical analytic portion of urinalysis may also be positive due to hemoglobinuria and myoglobinuria and if red blood cells are present they are quantified by microscopic examination. Performed By: #### 4 6625 #### LAB [address] [address] Yusuf Villaseñor M.D. [id number] NITRITE, URINE Negative Normal Negative [facility] Comment on above: Order Comment: Micro scopic examination is performed on all urinalysis samples and only positive findings are reported. The test for blood on the chemical analytic portion of urinalysis may also be positive due to hemoglobinuria and myoglobinuria and if red blood cells are present they are quantified by microscopic examination. Performed By: #### 4 6625 #### LAB [address] [address] Yusuf Villaseñor M.D. [id number] pH (U) 5.5 [pH] Normal 5.0-7.0 [facility] Comment on above: Order Comment: Micro scopic examination is performed on all urinalysis samples and only positive findings are reported. The test for blood on the chemical analytic portion of urinalysis may also be positive due to hemoglobinuria and myoglobinuria and if red blood cells are present they are quantified by microscopic examination. Performed By: #### 4 6625 #### LAB [address] [id number] Yusuf Villaseñor M.D. [id number] Protein (U) [Mass/Vol] 30 mg/dL Abnormal Negative [facility] Comment on above: Order Comment: Micro [...] By: #### 4 6625 #### LAB [address] [address] Yusuf Villaseñor M.D. [id number] RBC LM.HPF (Urine sed) [#/Area] 10 /[HPF] High 0-3 [facility] Comment on above: Order Comment: Micro scopic examination is performed on all urinalysis samples and only positive findings are reported. The test for blood on the chemical analytic portion of urinalysis may also be positive due to hemoglobinuria and myoglobinuria and if red blood cells are present they are quantified by microscopic examination. Performed By: #### 4 6625 ####[facility] [address] [address] Yusuf Villaseñor M.D. [id number] Specific gravity (U) [Rel density] 1.024 Normal 1.005-1.025 [facility] Comment on above: Order Comment: Micro scopic examination is performed on all urinalysis samples and only positive findings are reported. The test for blood on the chemical analytic portion of urinalysis may also be positive due to hemoglobinuria and myoglobinuria and if red blood cells are present they are quantified by microscopic examination. Performed By: #### 4 6625 #### LAB [address] [address] Yusuf Villaseñor M.D. [id number] SQUAMOUS EPITHELIAL 2 /hpf Normal 0-4 [facility] Comment on above: Order Comment: Micro scopic examination is performed on all urinalysis samples and only positive findings are reported. The test for blood on the chemical analytic portion of urinalysis may also be positive due to hemoglobinuria and myoglobinuria and if red blood cells are present they are quantified by microscopic examination. Performed By: #### 4 6625 #### LAB [address] [address] Yusuf Villaseñor M.D. [id number] UROBILINOGEN, URINE <2.0 Normal <2.0 [facility] Comment on above: Order Comment: Micro scopic examination is performed on all urinalysis samples and only positive findings are reported. The test for blood on the chemical analytic portion of urinalysis may also be positive due to hemoglobinuria and myoglobinuria and if red blood cells are present they are quantified by microscopic examination. Performed By: #### 4 6625 #### LAB [address] [address] Yusuf Villaseñor M.D. [id number] WBC LM.HPF (Urine sed) [#/Area] 26 /[HPF] High 0-5 [facility] Comment on above: Order Comment: Micro scopic examination is performed on all urinalysis samples and only positive findings are reported. The test for blood on the chemical analytic portion of urinalysis may also be positive due to hemoglobinuria and myoglobinuria and if red blood cells are present they are quantified by microscopic examination. Performed By: #### 4 6625 #### LAB [address] [place] [address] Yusuf Villaseñor M.D. [id number] XR CHEST PA/APon 01-28-2025 XR CHEST PA/AP [facility] Comment on above: Order Comment: Injur y/Trauma or Illness?:Illness/OtherHow long have you had these symptoms (acute/chronic)?:AcuteReason for exam?:palpitationsHistory of cancer?:uSurgeries, chemotherapy, or radiation?:uType of Exam?:InitialAdditional signs and symptoms?:tachycardia ED Prov Noteon 01-27-2025 ED Prov Note Normal [facility] XR WRIST LEFT 3+ VIEWS (ARCADIO GALICIA)on 01-27-2025 XR WRIST LEFT 3+ VIEWS (STANDARD) [facility] Comment on above: Order Comment: Injur [...] to auscultation segundo (more content not included)... [facility] ED Prov Note HPI: 01/26/2025, Time: [...] no mu (more content not included)... Normal [facility] XR HAND LEFT 3+ VIEWS (STAND GLYNN)on [...] TueNovember 08, 2024 8:13:41 PM EDT Normal [facility] Comment on above: Order Comment: Injur y/Trauma or Illness?:Illness/Other How long have you had these symptoms (acute/chronic)?:Chronic Reason for exam?:Dorsal left hand pain with moveable lump x 6 months without injury. History of cancer?:u Surgeries, chemotherapy, or radiation?:u Type of Exam?:Initial Additional signs and symptoms?:none US ANKLE/BRACHIAL INDICES EX TREMITY LIMITEDon 04-26-2024 US ANKLE/BRACHIAL INDICES EXTREMITY LIMITED Normal [facility] ANKLE/BRACHIAL INDICES EXTREMITY LIMITED Normal [facility] Basic metabolic 2000 panelon 06-30-2023 Anion gap [Moles/Vol] 9 mmol/L Low 10 - 2 0 mmol/L [facility] Calcium [Mass/Vol] 8.7 mg/dL 8.4 - 10. 2 mg/dL [facility] Chloride [Moles/Vol] 103 mmol/L 98 - 10 8 mmol/L [facility] Creatinine [Mass/Vol] 1.03 mg/dL 0.80 - 1.30 mg/dL [facility] GFR/1.73 sq M.predicted CKD-EPI (S/P/Bld) [Vol rate/Area] 74 - PINF [facility] Comment on above: Estimated GFR was ca lculated using the 2020 CKD-EPI creatinine equation. Glucose [Mass/Vol] 142 mg/dL High 65 - 99 mg/dL [facility] HCO3 [Moles/Vol] 29 mmol/L 21 - 32 mmol/L [facility] Interpretation and review of laboratory results Abnormal [facility] Potassium [Moles/Vol] 4.5 mmol/L 3.5 - 5.1 mmol/L [facility] Sodium [Moles/Vol] 136 mmol/L 135 - 145 mmol/L [facility] Urea nitrogen [Mass/Vol] 23 mg/dL 8 - 25 mg/dL [facility] Urea nitrogen/Creatinine [Mass ratio] 22.3 mg/mg High 10.0 - 20.0 [facility] has implemented the eGFR calculation approach that does not have a coefficient for race that conforms to the NKF-ASN Task Force Recommendations. [facility] ECG 12 Leadon 03-04-2023 Atrial Rate [facility] P [place] [facility] P-R Interval [facility] Q-T Interval [facility] Q-T Interval (corrected) [facility] QRS Duration [facility] QTC Calculation (Bezet) [facility] [place] [facility] T [place] [facility] Ventricular Rate [facility] ESR Westergren method (Bld) [Velocity]on 01-21-2023 ESR (Bld) [Velocity] 43 mm/h High [facility] Interpretation and review of laboratory results Abnormal [facility] UrinalysisOrdered By: Aye lloyd on 01-21-2023 Bacteria Auto Ql (U) None Seen None Se en /hpf [facility] Bilirubin Ql (U) Negative Negative [facility] Clarity Refractometry automated (U) Clear Clear [facility] Color (U) Colorless Colorless, Yellow [facility] Epithelial cells.squamous Auto (Urine sed) [#/Area] 1 [facility] Glucose Auto test strip (U) [Mass/Vol] Negative Negative mg/dL [facility] Hemoglobin Auto test strip Ql (U) Negative Negative [facility] Interpretation and review of laboratory results Normal [facility] Ketones (U) [Mass/Vol] Negative Negat aleksander mg/dL [facility] Leukocyte esterase Auto test strip Ql (U) Negative Negative [facility] Nitrite Auto test strip Ql (U) Negative Negative [facility] pH (U) 5.5 [pH] 5.0 - 7.0 [facility] Protein (U) [Mass/Vol] Negative Negat aleksander mg/dL [facility] RBC Auto (Urine sed) [#/Area] 1 [facility] Specific gravity (U) [Rel density] 1.008 1.005 - 1.025 [facility] Urobilinogen (U) [Mass/Vol] mg/dL NINF - 2.0 mg/dL [facility] WBC Auto (Urine sed) [#/Area] [facility] Microscopic examination is performed on all urinalysis samples and only positive findings are reported. The test for blood on the chemical analytic portion of urinalysis may also be positive due to hemoglobinuria and myoglobinuria and if red blood cells are present they are quantified by microscopic examination. [facility] Basic metabolic 2000 panelon 12-22-2021 Anion gap [Moles/Vol] 11 mmol/L 10 - 2 0 mmol/L [facility] Calcium [Mass/Vol] 9.2 mg/dL 8.4 - 10. 2 mg/dL [facility] Chloride [Moles/Vol] 106 mmol/L 98 - 10 8 mmol/L [facility] Creatinine [Mass/Vol] 1.04 mg/dL 0.80 - 1.30 mg/dL [facility] GFR/1.73 sq M.predicted CKD-EPI (S/P/Bld) [Vol rate/Area] 74 - PINF [facility] Comment on above: Estimated GFR was ca lculated using the 2020 CKD-EPI creatinine equation. Glucose [Mass/Vol] 97 mg/dL 65 - 99 mg/dL [facility] HCO3 [Moles/Vol] 27 mmol/L 21 - 32 mmol/L [facility] Interpretation and review of laboratory results Abnormal [facility] Potassium [Moles/Vol] 4.5 mmol/L 3.5 - 5.1 mmol/L [facility] Sodium [Moles/Vol] 139 mmol/L 135 - 145 mmol/L [facility] Urea nitrogen [Mass/Vol] 23 mg/dL 8 - 25 mg/dL [facility] Urea nitrogen/Creatinine [Mass ratio] 22.1 mg/mg High 10 - 20 [facility] has implemented the eGFR calculation approach that does not have a coefficient for race that conforms to the NKF-ASN Task Force Recommendations. [facility] ECG 12-LEADOrdered By: Nichol Healy on 01-09-2021 Atrial Rate [facility] P [place] [facility] P-R Interval [facility] Q-T Interval [facility] Q-T Interval (corrected) [facility] QRS Duration [facility] QTC Calculation (Bezet) [facility] [place] [facility] T [place] [facility] COMPREHENSIVE PANELon 2019 Albumin [Mass/Vol] 3.9 g/dL Normal 3.4 - 5.0 [facility] Comment on above: Performed By: #### C MP ####[address] [address] ALP [Catalytic activity/Vol] 70 U/L Normal 33 - 136 [facility] Comment on above: Performed By: #### C MP ####[address] [address] ALT [Catalytic activity/Vol] 16 U/L Normal 10 - 52 [facility] Comment on above: Result Comment: Carie ents treated with Sulfasalazine may generate falsely decreased results for ALT. Performed By: #### C MP ####[address] [id number] Anion gap [Moles/Vol] 11 mmol/L Normal 10 - 20 [facility] Comment on above: Performed By: #### C MP ####[address] [id number] AST [Catalytic activity/Vol] 17 U/L Normal 9 - 39 [facility] Comment on above: Performed By: #### C MP ####[address] [id number] Bilirubin [Mass/Vol] 0.6 mg/dL Normal 0.0 - 1.2 [facility] Comment on above: Performed By: #### C MP ####[address] [id number] Calcium [Mass/Vol] 9.2 mg/dL Normal 8.6 - 10.3 [facility] Comment on above: Performed By: #### C MP ####[address] [id number] Chloride [Moles/Vol] 104 mmol/L Normal 98 - 107 [facility] Comment on above: Performed By: #### C MP ####[address] [address] Creatinine [Mass/Vol] 0.94 mg/dL Normal 0.50 - 1.30 [facility] Comment on above: Performed By: #### C MP ####[address] [id number] GFR- AM. >60 Normal >60 [facility] Comment on above: Result Comment: CALC ULATIONS OF ESTIMATED GFR ARE PERFORMED USING THE MDRD STUDY EQUATION FOR THE IDMS-TRACEABLE CREATININE METHODS. CLIN CHEM 2007;53:766-72 Performed By: #### C MP ####[address] [address] GFR-NON AM. >60 Normal >60 [facility] Comment on above: Performed By: #### C MP ####[address] [address] Glucose [Mass/Vol] 189 mg/dL High 74 - 99 [facility] Comment on above: Performed By: #### C MP ####[address] [address] HCO3 (Bld) [Moles/Vol] 27 mmol/L Normal 21 - 32 [facility] Comment on above: Performed By: #### C MP ####[address] [address] Potassium [Moles/Vol] 4.0 mmol/L Normal 3.5 - 5.3 [facility] Comment on above: Performed By: #### C MP ####[address] [address] Protein [Mass/Vol] 6.8 g/dL Normal 6.4 - 8.2 [facility] Comment on above: Performed By: #### C MP ####[address] [address] Sodium [Moles/Vol] 138 mmol/L Normal 136 - 145 [facility] Comment on above: Performed By: #### C MP ####[address] [address] Urea nitrogen [Mass/Vol] 23 mg/dL Normal 6 - 23 [facility] Comment on above: Performed By: #### C MP ####[address] [address] HEMOGLOBIN A1Con 05-05-2020 HbA1c (Bld) [Mass fraction] 209 MG/DL Normal [facility] Comment on above: Performed By: #### C BCDF #### [address] [address] HbA1c (Bld) [Mass fraction] 8.9 % Normal [facility] Comment on above: Result Comment: Diag nosis of Diabetes-Adults Non-Diabetic: < or = 5.6% Increased risk for developing diabetes: 5.7-6.4% Diagnostic of diabetes: > or = 6.5% . Monitoring of Diabetes Age (y) Therapeutic Goal (%) Adults: >18 <7.0 Pediatrics: 13-18 <7.5 7-12 <8.0 0- 6 7.5-8.5 [place] [employer]. Diabetes Care 33(S1), Jul 2009. Performed By: #### C BCDF #### [address] [id number] THYROXINE,FREEon 05-05-2020 THYROXINE,FREE 1.10 ng/dL Normal 0.61 - 1.12 [facility] Comment on above: Result Comment: Thyr oxine Free testing is performed using different testing methodology at [facility] than at other [facility]. Direct result comparisons should only be made [...] blood draw. Performed By: #### T 4FRE ####[address] [id number] TSHon 05-05-2020 TSH Qn 2.39 m[IU]/L Normal 0.44 - 3.98 [facility] Comment on above: Result Comment: TSH testing is performed using different testing methodology at [facility] than at other [facility]. Direct result comparisons should only be made within the same method. Performed By: #### T SH2 ####[place] [address] Provider Note - ED v2on 03-12 Provider [...] 5 hours PHYSICAL EXAM Image Comments: Physical vsyorwwtkaa-jbps-omxa l avulsion of skin along the submental [...] Updated: 02-Apr-2020 08:02 by Jenaro Villalta () [facility] Risk Screen - Adult Emergenc yon [...] Learning Preferencesverbal instruction Cultural Considerationsnone Developmental Considerationsnone Islam Considerationsnone Learning Assessment (Other Learner): Learning Assessment (Other Learner): Other learner availableno Pressure Injury/TB/Substance: Pressure Injury: Do you have a coughno Substance Use Current or Former Historynever: Street Drugs YES: Cigarette/Tobacco Smoking Statusformer smoker Admission Risk Screen: Significant IndicatorsComplete CAGE: CAGE: Is this an injured patient at a Trauma Center ([facility]/[place]/[facility]/[place]): no Electronic Signatures: Elinor Sandoval (RN) (Signed 02-Apr-2020 08:00) Authored: Preferred Language, Advanced Directives, Family Violence Adult, Learning Assessment (Patient), Learning Assessment (Other Learner), Pressure Injury/TB/Substance, Pressure Injury, CAGE Last Updated: 02-Apr-2020 08:00 by Elinor Sandoval (RN) Normal [facility] Triage - EDon 04-02-2020 Triage - ED [...] Arrival From: home Language: Spoken Language Preferred: Danish Reading Language Preferred: Danish Present on Arrival: Device Present on Arrival [...] 02-Apr-2020 07:59 by Elinor Sandoval (RYLEY) Normal [facility] CBC AND DIFFERENTIALon 12-26 Basophils (Bld) [#/Vol] 0.00 10*3/uL Normal 0.00 - 0.1 0 [facility] Comment on above: Performed By: #### C BCDF ####[address] [address] Basophils/100 WBC (Bld) 0.5 % Normal 0.0 - 2.0 [facility] Comment on above: Performed By: #### C BCDF ####[address] [address] Eosinophils (Bld) [#/Vol] 0.20 10*3/uL Normal 0.00 - 0.40 [facility] Comment on above: Performed By: #### C BCDF ####[address] [address] Eosinophils/100 WBC (Bld) 2.6 % Normal 0.0 - 6.0 [facility] Comment on above: Performed By: #### C BCDF ####[address] [address] Erythrocyte distribution width (RBC) [Ratio] 14.2 % Normal 11.5 - 14.5 [facility] Comment on above: Performed By: #### C BCDF ####[address] [address] Hematocrit (Bld) [Volume fraction] 42.7 % Normal 41.0 - 52.0 [facility] Comment on above: Performed By: #### C BCDF ####[address] [address] Hemoglobin (Bld) [Mass/Vol] 14.0 g/dL Normal 13.5 - 17.5 [facility] Comment on above: Performed By: #### C BCDF ####[address] [address] Lymphocytes (Bld) [#/Vol] 2.20 10*3/uL Normal 0.80 - 3.00 [facility] Comment on above: Performed By: #### C BCDF ####[address] [address] Lymphocytes/100 WBC (Bld) 31.7 % Normal 13.0 - 44.0 [facility] Comment on above: Performed By: #### C BCDF ####[address] [address] MCHC (RBC) [Mass/Vol] 32.8 g/dL Normal 32.0 - 36.0 [facility] Comment on above: Performed By: #### C BCDF ####[address] [address] MCV (RBC) [Entitic vol] 86 fL Normal 80 - 100 [facility] Comment on above: Performed By: #### C BCDF ####[address] [address] Monocytes (Bld) [#/Vol] 0.60 10*3/uL Normal 0.05 - 0.8 0 [facility] Comment on above: Performed By: #### C BCDF ####[address] [address] Monocytes/100 WBC (Bld) 8.5 % Normal 2.0 - 10.0 [facility] Comment on above: Performed By: #### C BCDF ####[address] [address] Neutrophils (Bld) [#/Vol] 4.00 10*3/uL Normal 1.60 - 5.50 [facility] Comment on above: Result Comment: Perc ent differential counts (%) should be interpreted in the context of the absolute cell counts (cells/L). Performed By: #### C BCDF ####[address] [address] Neutrophils/100 WBC (Bld) 56.7 % Normal 40.0 - 80.0 [facility] Comment on above: Performed By: #### C BCDF ####[address] [address] Nucleated RBC/100 WBC (Bld) [Ratio] 0.3 /100 WBC Normal [facility] Comment on above: Performed By: #### C BCDF ####[address] [address] Platelets (Bld) [#/Vol] 201 10*3/uL Normal 150 - 450 [facility] Comment on above: Performed By: #### C BCDF ####[address] [address] RBC (Bld) [#/Vol] 4.97 x10E12/L Normal 4.50 - 5.90 [facility] Comment on above: Performed By: #### C BCDF ####[address] [address] WBC (Bld) [#/Vol] 7.0 10*3/uL Normal 4.4 - 11.3 [facility] Comment on above: Performed By: #### C BCDF ####[place] [id number] COMPREHENSIVE PANELon 2019 Albumin [Mass/Vol] 3.7 g/dL Normal 3.4 - 5.0 [facility] Comment on above: Performed By: #### C MP #### [address] [address] ALP [Catalytic activity/Vol] 63 U/L Normal 33 - 136 [facility] Comment on above: Performed By: #### C MP #### [address] [address] ALT [Catalytic activity/Vol] 21 U/L Normal 10 - 52 [facility] Comment on above: Result Comment: Carie ents treated with Sulfasalazine may generate falsely decreased results for ALT. Performed By: #### C MP #### [address] [address] Anion gap [Moles/Vol] 9 mmol/L Low 10 - 20 [facility] Comment on above: Performed By: #### C MP #### [address] [address] AST [Catalytic activity/Vol] 14 U/L Normal 9 - 39 [facility] Comment on above: Performed By: #### C MP #### [address] [address] Bilirubin [Mass/Vol] 0.5 mg/dL Normal 0.0 - 1.2 [facility] Comment on above: Performed By: #### C MP #### [address] [address] Calcium [Mass/Vol] 8.8 mg/dL Normal 8.6 - 10.3 [facility] Comment on above: Performed By: #### C MP #### [address] [address] Chloride [Moles/Vol] 101 mmol/L Normal 98 - 107 [facility] Comment on above: Performed By: #### C MP #### [address] [address] Creatinine [Mass/Vol] 0.98 mg/dL Normal 0.50 - 1.30 [facility] Comment on above: Performed By: #### C MP #### [address] [address] GFR- AM. >60 Normal >60 [facility] Comment on above: Result Comment: CALC ULATIONS OF ESTIMATED GFR ARE PERFORMED USING THE MDRD STUDY EQUATION FOR THE IDMS-TRACEABLE CREATININE METHODS. CLIN CHEM 2007;53:766-72 Performed By: #### C MP #### [address] [address] GFR-NON AM. >60 Normal >60 [facility] Comment on above: Performed By: #### C MP #### [address] [address] Glucose [Mass/Vol] 255 mg/dL High 74 - 99 [facility] Comment on above: Performed By: #### C MP #### [address] [address] HCO3 (Bld) [Moles/Vol] 30 mmol/L Normal 21 - 32 [facility] Comment on above: Performed By: #### C MP #### [address] [address] Potassium [Moles/Vol] 4.6 mmol/L Normal 3.5 - 5.3 [facility] Comment on above: Performed By: #### C MP #### [address] [address] Protein [Mass/Vol] 6.4 g/dL Normal 6.4 - 8.2 [facility] Comment on above: Performed By: #### C MP #### [address] [address] Sodium [Moles/Vol] 135 mmol/L Low 136 - 145 [facility] Comment on above: Performed By: #### C MP #### [address] [address] Urea nitrogen [Mass/Vol] 32 mg/dL High 6 - 23 [facility] Comment on above: Performed By: #### C MP #### [address] [address] HEMOGLOBIN A1Con 12-27-2019 HbA1c (Bld) [Mass fraction] 212 MG/DL Normal [facility] Comment on above: Performed By: #### H BA1E ####[address] [address] HbA1c (Bld) [Mass fraction] 9.0 % Normal [facility] Comment on above: Result Comment: Diag nosis of Diabetes-Adults Non-Diabetic: < or = 5.6% Increased risk for developing diabetes: 5.7-6.4% Diagnostic of diabetes: > or = 6.5% . Monitoring of Diabetes Age (y) Therapeutic Goal (%) Adults: >18 <7.0 Pediatrics: 13-18 <7.5 7-12 <8.0 0- 6 7.5-8.5 [place]. Diabetes Care 33(S1), Jul 2009. Performed By: #### H BA1E ####[address] [address] LIPID PANEL (CORONARY RISK 2 )on 12-27-2019 Cholesterol [Mass/Vol] 133 mg/dL Normal 0 - 199 [facility] Comment on above: Result Comment: . AGE [...] dosing. Performed By: #### L IPID #### [address] [address] Cholesterol in HDL [Mass/Vol] 52.0 mg/dL Normal [facility] Comment on above: Result Comment: . AGE VERY LOW LOW NORMAL HIGH 0-19 Y < 35 < 40 40-45 ---- 20-24 Y ---- < 40 >45 ---- >24 Y ---- < 40 40-60 >60 . Performed By: #### L IPID #### [address] [address] Cholesterol in LDL [Mass/Vol] 70 mg/dL Normal 0 - 99 [facility] Comment on above: Result Comment: . NEAR BORD AGE DESIRABLE OPTIMAL HIGH HIGH VERY HIGH 0-19 Y 0 - 109 --- 110-129 >/= 130 ---- 20-24 Y 0 - 119 --- 120-159 >/= 160 ---- >24 Y 0 - 99 100-129 130-159 160-189 >/=190 . Performed By: #### L IPID #### [address] [address] Cholesterol in VLDL [Mass/Vol] 11 mg/dL Normal 0 - 40 [facility] Comment on above: Performed By: #### L IPID #### [address] [address] Cholesterol.total/Princess sterol in HDL [Mass ratio] 2.6 {ratio} Normal [facility] Comment on above: Result Comment: REF VALUES DESIRABLE < 3.4 HIGH RISK > 5.0 Performed By: #### L IPID #### [address] [address] Triglyceride [Mass/Vol] 56 mg/dL Normal 0 - 149 [facility] Comment on above: Result Comment: . AGE [...] dosing. Performed By: #### L IPID #### [address] [address] THYROXINE,FREEon 12-27-2019 THYROXINE,FREE 1.05 ng/dL Normal 0.61 - 1.12 [facility] Comment on above: Result Comment: Thyr oxine Free testing is performed using different testing methodology at [facility] than at other [facility]. Direct result comparisons should only be made [...] blood draw. Performed By: #### T 4FRE ####[address] [address] TSHon 12-27-2019 TSH Qn 2.72 m[IU]/L Normal 0.44 - 3.98 [facility] Comment on above: Result Comment: TSH testing is performed using different testing methodology at [facility] than at other [facility]. Direct result comparisons should only be made within the same method. Performed By: #### T SH2 ####[address] [address] BASIC METABOLIC PANELon 12-2 Anion gap [Moles/Vol] 10 mmol/L Normal 10 - 20 [facility] Comment on above: Performed By: #### B MP #### [address] [address] Calcium [Mass/Vol] 8.5 mg/dL Low 8.6 - 10.3 [facility] Comment on above: Performed By: #### B MP #### [address] [address] Chloride [Moles/Vol] 103 mmol/L Normal 98 - 107 [facility] Comment on above: Performed By: #### B MP #### [address] [address] Creatinine [Mass/Vol] 0.94 mg/dL Normal 0.50 - 1.30 [facility] Comment on above: Performed By: #### B MP #### [address] [address] GFR- AM. >60 Normal >60 [facility] Comment on above: Result Comment: CALC ULATIONS OF ESTIMATED GFR ARE PERFORMED USING THE MDRD STUDY EQUATION FOR THE IDMS-TRACEABLE CREATININE METHODS. CLIN CHEM 2007;53:766-72 Performed By: #### B MP #### [place] [id number] GFR-NON AM. >60 Normal >60 [facility] Comment on above: Performed By: #### B MP #### [address] [address] Glucose [Mass/Vol] 338 mg/dL High 74 - 99 [facility] Comment on above: Performed By: #### B MP #### [address] [address] HCO3 (Bld) [Moles/Vol] 25 mmol/L Normal 21 - 32 [facility] Comment on above: Performed By: #### B MP #### [address] [address] Potassium [Moles/Vol] 4.4 mmol/L Normal 3.5 - 5.3 [facility] Comment on above: Performed By: #### B MP #### [address] [address] Sodium [Moles/Vol] 134 mmol/L Low 136 - 145 [facility] Comment on above: Performed By: #### B MP #### [address] [address] Urea nitrogen [Mass/Vol] 24 mg/dL High 6 - 23 [facility] Comment on above: Performed By: #### B MP #### [address] [address] CBC AND DIFFERENTIALon 07-08 Basophils (Bld) [#/Vol] 0.00 10*3/uL Normal 0.00 - 0.1 0 [facility] Comment on above: Performed By: #### C BCDF #### [address] [address] Basophils/100 WBC (Bld) 0.5 % Normal 0.0 - 2.0 [facility] Comment on above: Performed By: #### C BCDF #### [address] [address] Eosinophils (Bld) [#/Vol] 0.20 10*3/uL Normal 0.00 - 0.40 [facility] Comment on above: Performed By: #### C BCDF #### [address] [address] Eosinophils/100 WBC (Bld) 2.8 % Normal 0.0 - 6.0 [facility] Comment on above: Performed By: #### C BCDF #### [address] [address] Erythrocyte distribution width (RBC) [Ratio] 13.9 % Normal 11.5 - 14.5 [facility] Comment on above: Performed By: #### C BCDF #### [address] [address] Hematocrit (Bld) [Volume fraction] 38.1 % Low 41.0 - 52.0 [facility] Comment on above: Performed By: #### C BCDF #### [address] [address] Hemoglobin (Bld) [Mass/Vol] 12.6 g/dL Low 13.5 - 17.5 [facility] Comment on above: Performed By: #### C BCDF #### [address] [address] Lymphocytes (Bld) [#/Vol] 1.50 10*3/uL Normal 0.80 - 3.00 [facility] Comment on above: Performed By: #### C BCDF #### [address] [address] Lymphocytes/100 WBC (Bld) 24.1 % Normal 13.0 - 44.0 [facility] Comment on above: Performed By: #### C BCDF #### [address] [address] MCHC (RBC) [Mass/Vol] 33.1 g/dL Normal 32.0 - 36.0 [facility] Comment on above: Performed By: #### C BCDF #### [address] [address] MCV (RBC) [Entitic vol] 84 fL Normal 80 - 100 [facility] Comment on above: Performed By: #### C BCDF #### [address] [address] Monocytes (Bld) [#/Vol] 0.50 10*3/uL Normal 0.05 - 0.8 0 [facility] Comment on above: Performed By: #### C BCDF #### [address] [address] Monocytes/100 WBC (Bld) 8.2 % Normal 2.0 - 10.0 [facility] Comment on above: Performed By: #### C BCDF #### [address] [address] Neutrophils (Bld) [#/Vol] 4.00 10*3/uL Normal 1.60 - 5.50 [facility] Comment on above: Performed By: #### C BCDF #### [address] [address] Neutrophils/100 WBC (Bld) 64.4 % Normal 40.0 - 80.0 [facility] Comment on above: Performed By: #### C BCDF #### [address] [address] Platelets (Bld) [#/Vol] 188 10*3/uL Normal 150 - 450 [facility] Comment on above: Performed By: #### C BCDF #### [address] [address] RBC (Bld) [#/Vol] 4.56 x10E12/L Normal 4.50 - 5.90 [facility] Comment on above: Performed By: #### C BCDF #### [address] [address] WBC (Bld) [#/Vol] 6.3 10*3/uL Normal 4.4 - 11.3 [facility] Comment on above: Performed By: #### C BCDF #### [address] [address] CHEST 2 VIEW PA AND LATon CHEST 2 VIEW PA AND LAT Patient Name: ANDREW ARNOLD STUDY: CHEST 2 VIEW PA AND LAT; 07/08/2019 1:45 am INDICATION: Chest Pain. COMPARISON: 11/14/2014 ACCESSION NUMBER(S): [id number] ORDERING CLINICIAN: RANJAN CASTRO FINDINGS: Elevation right hemidiaphragm Cardiomediastinal silhouette with ectatic thoracic aorta vascular calcifications Calcified granuloma left lower lung No segmental consolidation, no large pleural effusion or pneumothorax Apical superimposition of structures. CABG surgery EKG leads are present. IMPRESSION: Cardiomediastinal silhouette/ectatic thoracic aorta. Electronically signed by: ZEFERINO GARY [facility] RADIOLOGIST Normal [facility] Provider Note - ED v2on 06-11 Provider [...] dysrhythmia. QTC is slightly prolonged at [address] interval is 182 Labs: Labs showed hyperglycemia [...] made to minimize errors. Minor errors in dispersion mixer may be present. Please call if questions.. [...] Referenced From Triage - ED 08-Jul-2019 00:58 [facility] Risk Screen - Adult Emergenc yon [...] instruction; written material Cultural Considerationsnone Developmental Considerationsnone Islam Considerationsnone Other Learnerssignificant other Learning Assessment (Other Learner): Learning Assessment (Other Learner): Other learner availableyes... Learnersignificant other Factors Influencing Readiness to Learninterest in learning Factors that Impact Ability to Learnnone Devices/Methods Used to Communicatenone Learning Preferencesverbal instruction, written material Cultural Considerationsnone Developmental Considerationsnone Islam Considerationsnone Pressure Injury/TB/Substance: Pressure Injury: Pressure Injury Present on Admissionno Do you have a coughyes... Has your cough lasted longer than 2 weeksno Substance Use Current or Former Historynever: Cigarette/Tobacco, e-Cigarette/Vaping, Alcohol, Street Drugs Admission Risk Screen: Significant IndicatorsComplete CAGE: CAGE: Is this an injured patient at a Trauma Center ([facility]/[place]/[facility]/[place]): no Electronic Signatures: Amber Gregorio (RYLEY) (Signed 08-Jul-2019 01:09) Authored: Preferred Language, Advanced Directives, Family Violence Adult, Learning Assessment (Patient), Learning Assessment (Other Learner), Pressure Injury/TB/Substance, CAGE Last Updated: 08-Jul-2019 01:09 by Amber Gregorio (RYLEY) Normal [facility] TROPONIN Ion 07-08-2019 Troponin I.cardiac [Mass/Vol] 0.03 ng/mL Normal 0.00 - 0.03 [facility] Comment on above: Result Comment: LESS THAN [...] is performed using different testing methodology at [facility] than at other [facility]. Direct result comparisons should only be made within the same method. Performed By: #### T ROP2 #### [facility] [address] [place] [address] TSHon 07-08-2019 TSH Qn 2.28 m[IU]/L Normal 0.44 - 3.98 [facility] Comment on above: Result Comment: TSH testing is performed using different testing methodology at [facility] than at other [facility]. Direct result comparisons should only be made within the same method. Performed By: #### T SH2 #### [facility] [address] [place] [address] Triage - EDon 07-08-2019 Triage - ED [...] 08-Jul-2019 01:53 by Amber Gregorio (RN) Normal [facility] CMPon 02-20-2019 Albumin [Mass/Vol] 3.8 g/dL Normal 3.4-5.0 [facility] Comment on above: Performed By: #### 2 [id number] #### [employer] [address] [place] [address] Albumin/Globulin [Mass ratio] 1.4 {ratio} Normal 1.1-1.9 [facility] Comment on above: Performed By: #### 2 [id number] #### [employer] [address] [place] [address] Alk Phos 69 Int._Unit/L Normal 33-136 [facility] Comment on above: Performed By: #### 2 [id number] #### [employer] [address] [place] [address] ALT [Catalytic activity/Vol] 25 Int._Unit/L Normal 10-52 [facility] Comment on above: Performed By: #### 2 [id number] #### [employer] [address] [place] [address] Anion gap [Moles/Vol] 9 mmol/L Low 10-20 [facility] Comment on above: Performed By: #### 2 [id number] #### [employer] [address] [place] [address] AST [Catalytic activity/Vol] 22 Int._Unit/L Normal 9-39 [facility] Comment on above: Performed By: #### 2 504742 #### [employer] [address] [place] [address] Bili Total 0.53 mg/dL Normal 0.00-1.20 [facility] Comment on above: Performed By: #### 2 574023 #### [employer] [address] [place] [address] Calcium [Mass/Vol] 9.2 mg/dL Normal 8.6-10.3 [facility] Comment on above: Performed By: #### 2 397610 #### [employer] [address] [place] [address] Chloride [Moles/Vol] 106 mmol/L Normal 98-107 [facility] Comment on above: Performed By: #### 2 887076 #### [employer] [address] [place] [address] CO2 [Moles/Vol] 29.0 mmol/L Normal 21.0-32.0 [facility] Comment on above: Performed By: #### 2 514722 #### [employer] [address] [place] [address] Creatinine [Mass/Vol] 1.0 mg/dL Normal 0.5-1.3 [facility] Comment on above: Performed By: #### 2 251827 #### [employer] [address] [place] [address] Globulin (S) [Mass/Vol] 3.0 g/dL Normal 2.0-4.0 [facility] Comment on above: Performed By: #### 2 995755 #### [employer] [address] [place] [address] Glucose [Mass/Vol] 103 mg/dL High 70-99 [facility] Comment on above: Performed By: #### 2 532492 #### [employer] [address] [place] [address] Potassium [Moles/Vol] 4.1 mmol/L Normal 3.5-5.3 [facility] Comment on above: Performed By: #### 2 087597 #### [facility] [employer] [address] [place] [address] Protein [Mass/Vol] 6.6 g/dL Normal 6.4-8.2 [facility] Comment on above: Performed By: #### 2 080109 #### [employer] [address] [place] [address] Sodium [Moles/Vol] 139 mmol/L Normal 136-145 [facility] Comment on above: Performed By: #### 2 654666 #### [employer] [address] [place] [address] Urea nitrogen [Mass/Vol] 25 mg/dL High 6-23 [facility] Comment on above: Performed By: #### 2 433941 #### [employer] [facility] [place] [address] Urea nitrogen/Creatinine [Mass ratio] 25.0 ratio Normal 5.4-30.0 [facility] Comment on above: Performed By: #### 2 861774 #### [employer] [facility] [place] [address] [id number] 02-20-2019 HbA1c (Bld) [Mass fraction] 8.8 % High 4.0-6.3 [facility] Comment on above: Performed By: #### 2 491154 #### [employer] [address] [place] [address] eGFRon 02-20-2019 GFR/1.73 sq M predicted among non-blacks MDRD (S/P/Bld) [Vol rate/Area] mL/min/{1.73_m2} Normal [facility] Comment on above: Order Comment: Order added by Discern Expert. Performed By: #### 2 548011 #### [employer] [address] [place] [address] POC Glucoseon 12-26-2018 Glucose mass conc 143 mg/dL High 65 - 99 mg/dL [facility] Interpretation and review of laboratory results Abnormal [facility] Glucose mass conc 192 mg/dL High 65 - 99 mg/dL [facility] Interpretation and review of laboratory results Abnormal [facility] XR WRIST RIGHT 3+ VIEWS (STA [...] on TueDec 15, 2018 10:58:[address] [facility] Comment on above: Order Comment: Reaso [...] 3. Soft tissue edema. Workstation ID: [id number] [facility] EXAMINATION: XR WRIS T RIGHT 3+ [...] joint space. Soft tissue edema is suggested. [facility], Rad In Fuji Speechq - 12/15/2018 11:00 [...] 3. Soft tissue edema. Workstation ID: [id number] [facility] 12-12-2018 Nuclear Report Patient: CLAYTON Mccollum Med Rec#: [id number] (Age): 1945(73y) Height: Study Date: 12/12/2018 Weight: [...] imaging protocol was followed using Tc-99m tetrofosmin (Mobilisafeview) injected intravenously. For the rest portion of [...] 12/12/2018 15:06:04 by: Ernesto Gibbs MD, PI [facility] Interface, Rad In [facility]lab [facility] - 12/12/2018 3:25 PM EDT Nuclear Report Patient: CLAYTON Mccollum [facility] Rec#: [id number] (Age): 1945(73y) Height: Study Date: 12/12/2018 Weight: [...] imaging protocol was followed using Tc-99m tetrofosmin (Mobilisafeview) injected intravenously. For the rest portion of [...] 12/12/2018 15:06:04 by: Ernesto Gibbs MD, RVPI [facility] ECHOCARDIOGRAM 2D COMPLETEon 12-08-2018 Transthoracic Echocardiogram Patient: CLAYTON Mccollum [facility] Rec#: [id number] (Age): 1945(73y) Height: 170.18(cm)/66(i Study Date: 12/08/2018 Weight: 93.9(kg)/207(lb Room#: BSA: [id number] Type: Loc: Sex: M Reading: Jennifer Cintron M.D. Referring: PRESTON HEALY PAUL Pantograph Machine Set Up Operator: Irina Hooper RDCS, RVT History: Aortic Valve [...] at 12/08/2018 10:51:17 by: Jennifer Cintron M.D. [facility] Interface, Rad In Heartlab Xper Echopacs - 12/08/2018 10:53 AM EDT Transthoracic Echocardiogram Patient: CLAYTON Mccollum [facility] Rec#: [id number] (Age): 1945(73y) Height: 170.18(cm)/66(i Study Date: 12/08/2018 Weight: 93.9(kg)/207(lb Room#: BSA: [id number] Type: Loc: Sex: M Reading: Jennifer Cintron M.D. Referring: PRESTON HEALY PAUL Pantograph Machine Set Up Operator: Irina Hooper RDCS, RVT History: Aortic Valve [...] at 12/08/2018 10:51:17 by: Jennifer Cintron M.D. [facility] Ultrasound abdominal aorta d uplex limitedon 12-07-2018 Non-Invasive Vascula r Patient: CLAYTON Mccollum [facility] Rec#: [id number] (Age): 1945(73y) Study Date: 12/07/2018 Room#: Type: Sex: M Reading: CIRA Reading: Irwin Gayle MD, RPVI Referring: PRESTON HEALY PAUL Pantograph Machine Set Up Operator: VIPUL COOPER Procedure Info: [id number] Study Quality: Aneurysm Duplex: adequate Diagnosis: R09.89 [...] Electronically signed at 12/07/2018 12:15:35 by: Irwin aGyle MD, RPTANISHA [facility], [facility] In Heartlab [facility] - 12/07/2018 12:31 PM EDT Non-Invasive Vascular Patient: CLAYTON Mccollum [facility] Rec#: [id number] (Age): 1945(73y) Study Date: 12/07/2018 Room#: Type: Sex: M Reading: CIRA Reading: Irwin Gayle MD, ALISHAVI Referring: PRESTON HEALY PAUL Pantograph Machine Set Up Operator: VIPUL COOPER Procedure Info: [id number] Study Quality: Aneurysm Duplex: adequate Diagnosis: R09.89 [...] at 12/07/2018 12:15:35 by: Irwin Gayle MD, [facility] XR CHEST AP/PA AND LATon No acute cardiopulmonary process. Prif[employer]ell[employer] Workstation ID: [id number] [facility] EXAMINATION: XR CHES T AP/PA AND [...] multilevel degenerative changes of the thoracic spine. [facility] Interface, Rad In Rudyi Speechq - [...] thoracic spine. IMPRESSION: No acute cardiopulmonary process. Nusirt Workstation ID: [id number] [facility] Auto Diffon 10-23-2018 Basophils (Bld) [#/Vol] 0.0 E3/mcL Normal 0.0-0.2 [facility] Comment on above: Order Comment: Order Added by Discern Expert. Performed By: #### 2 [id number] #### [employer] [address] [place] [address] Basophils/100 WBC (Bld) 0.8 % Normal 0.0-2.0 [facility] Comment on above: Order Comment: Order Added by Discern Expert. Performed By: #### 2 [id number] #### [employer] [address] [place] [address] Eos Absolute 0.2 E3/mcL Normal 0.0-0.7 [facility] Comment on above: Order Comment: Order Added by Discern Expert. Performed By: #### 2 710310 #### [employer] [address] [place] [address] Eosinophils/100 WBC (Bld) 3.1 % Normal 0.0-11.0 [facility] Comment on above: Order Comment: Order Added by Discern Expert. Performed By: #### 2 149655 #### [employer] [address] [place] [address] Lymphocytes (Bld) [#/Vol] 1.7 E3/mcL Normal 1.2-3.4 [facility] Comment on above: Order Comment: Order Added by Discern Expert. Performed By: #### 2 063383 #### [employer] [address] [place] [address] Lymphocytes/100 WBC (Bld) 33.4 % Normal 20.0-55.0 [facility] Comment on above: Order Comment: Order Added by Discern Expert. Performed By: #### 2 495211 #### [employer] [address] [place] [address] Ross Absolute 0.4 E3/mcL Normal 0.0-0.7 [facility] Comment on above: Order Comment: Order Added by Discern Expert. Performed By: #### 2 [id number] #### DWIGHT JudiHemo [address] [id number] Monocytes/100 WBC (Bld) 8.0 % Normal 0.0-10.0 [facility] Comment on above: Order Comment: Order Added by Discern Expert. Performed By: #### 2 [id number] #### DWIGHT JudiHemo [facility] [id number] Neutro Absolute 2.8 E3/mcL Normal 1.4-6.5 [facility] Comment on above: Order Comment: Order Added by Discern Expert. Performed By: #### 2 [id number] #### DWIGHT JudiHemo [address] [place], [place] [id number] Neutro Auto 54.7 % Normal 37.0-75.0 [facility] Comment on above: Order Comment: Order Added by Discern Expert. Performed By: #### 2 034910 #### DWIGHT JudiHemo [facility] [place] [address] CBC w/ Auto Diffon 9 Erythrocyte distribution width (RBC) [Ratio] 14.2 % Normal 11.5-14.5 [facility] Comment on above: Performed By: #### 2 707313 #### DWIGHT JudiHemo [facility] [place] [address] Hematocrit (Bld) [Volume fraction] 42.6 % Normal 42.0-52.0 [facility] Comment on above: Performed By: #### 2 060798 #### DWIGHT JudiHemo [facility] [place] [address] Hemoglobin (Bld) [Mass/Vol] 14.3 g/dL Normal 13.5-18.0 [facility] Comment on above: Performed By: #### 2 510960 #### DWIGHT RemHemo [address] [place] [address] MCH (RBC) [Entitic mass] 28.7 pg Normal 27.0-31.0 [facility] Comment on above: Performed By: #### 2 577452 #### DWIGHT RemHemo [address] [place] [address] MCHC (RBC) [Mass/Vol] 33.6 g/dL Normal 33.0-37.0 [facility] Comment on above: Performed By: #### 2 201072 #### DWIGHT RemHemo [address] [place] [address] MCV (RBC) [Entitic vol] 85.4 fL Normal 78.0-100.0 [facility] Comment on above: Performed By: #### 2 945405 #### DWIGHT RemHemo [address] [place] [address] Platelet mean volume (Bld) [Entitic vol] 8.6 fL Normal 7.4-11.0 [facility] Comment on above: Performed By: #### 2 794116 #### DWIGHT RemHemo [facility] [place] [address] Platelets (Bld) [#/Vol] 180 E3/mcL Normal 130-400 [facility] Comment on above: Performed By: #### 2 349117 #### DWIGHT RemHemo [address] [place] [address] RBC (Bld) [#/Vol] 4.99 E6/mcL Normal 3.90-6.10 [facility] Comment on above: Performed By: #### 2 265072 #### DWIGHT RemHemo [address] [place] [address] WBC (Bld) [#/Vol] 5.2 E3/mcL Normal 3.6-11.0 [facility] Comment on above: Performed By: #### 2 748682 #### DWIGHT RemHemo [address] [place] [address] CMPon 10-23-2018 Albumin [Mass/Vol] 4.0 g/dL Normal 3.4-5.0 [facility] Comment on above: Performed By: #### 2 602648 #### DWIGHT Arangoo [address] [place] [address] Albumin/Globulin [Mass ratio] 1.5 {ratio} Normal 1.1-1.9 [facility] Comment on above: Performed By: #### 2 799732 #### DWIGHT Arangoo [address] [place] [address] Alk Phos 71 Int._Unit/L Normal 33-136 [facility] Comment on above: Performed By: #### 2 590363 #### DWIGHT LauHemo [facility] [place] [address] ALT [Catalytic activity/Vol] 31 Int._Unit/L Normal 10-52 [facility] Comment on above: Performed By: #### 2 792419 #### DWIGHT Arangoo [facility] [place] [address] Anion gap [Moles/Vol] 10 mmol/L Normal 10-20 [facility] Comment on above: Performed By: #### 2 687996 #### DWIGHT Arangoo [address] [place] [address] AST [Catalytic activity/Vol] 22 Int._Unit/L Normal 9-39 [facility] Comment on above: Performed By: #### 2 754275 #### DWIGHT LauHemo [address] [place] [address] Bili Total 0.70 mg/dL Normal 0.00-1.20 [facility] Comment on above: Performed By: #### 2 074794 #### DWIGHT LauHemo [facility] [place] [address] Calcium [Mass/Vol] 9.2 mg/dL Normal 8.6-10.3 [facility] Comment on above: Performed By: #### 2 428717 #### DWIGHT LauHemo [address] [place] [address] Chloride [Moles/Vol] 104 mmol/L Normal 98-107 [facility] Comment on above: Performed By: #### 2 645241 #### DWIGHT LauHemo [address] [place] [address] CO2 [Moles/Vol] 30.0 mmol/L Normal 21.0-32.0 [facility] Comment on above: Performed By: #### 2 039680 #### DWIGHT RemHemo [address] [place] [address] Creatinine [Mass/Vol] 1.0 mg/dL Normal 0.5-1.3 [facility] Comment on above: Performed By: #### 2 530900 #### DWIGHT RemHemo [address] [place] [address] Globulin (S) [Mass/Vol] 3.0 g/dL Normal 2.0-4.0 [facility] Comment on above: Performed By: #### 2 098984 #### DWIGHT RemHemo [address] [place] [address] Glucose [Mass/Vol] 106 mg/dL High 70-99 [facility] Comment on above: Performed By: #### 2 279751 #### DWIGHT RemHemo [address] [place] [address] Potassium [Moles/Vol] 4.2 mmol/L Normal 3.5-5.3 [facility] Comment on above: Performed By: #### 2 120535 #### DWIGHT RemHemo [address] [place] [address] Protein [Mass/Vol] 6.7 g/dL Normal 6.4-8.2 [facility] Comment on above: Performed By: #### 2 554809 #### DWIGHT RemHemo [address] [place] [address] Sodium [Moles/Vol] 140 mmol/L Normal 136-145 [facility] Comment on above: Performed By: #### 2 739429 #### DWIGHT RemHemo [address] [place] [address] Urea nitrogen [Mass/Vol] 28 mg/dL High 6-23 [facility] Comment on above: Performed By: #### 2 578708 #### DWIGHT RemHemo [address] [place] [address] Urea nitrogen/Creatinine [Mass ratio] 28.0 ratio Normal 5.4-30.0 [facility] Comment on above: Performed By: #### 2 935137 #### DWIGHT RemHemo [address] [place] [address] Free T4on 10-23-2018 Free T4 [Mass/Vol] 0.87 ng/dL Normal 0.58-1.64 [facility] Comment on above: Performed By: #### 2 748873 #### DWIGHT LauHemo [address] [place] [address] [id number] 10-23-2018 HbA1c (Bld) [Mass fraction] 9.7 % High 4.0-6.3 [facility] Comment on above: Performed By: #### 2 474217 #### DWIGHT Arangoo [address] [place] [address] Lipid Profileon 10-23-2018 Cholesterol [Mass/Vol] 118 mg/dL Normal 0-199 [facility] Comment on above: Performed By: #### 2 232808 #### DWIGHT LauHemo [address] [place] [address] Cholesterol in HDL [Mass/Vol] 51 mg/dL Normal 40-60 [facility] Comment on above: Performed By: #### 2 167924 #### DWIGHT LauHemo [address] [place] [address] Cholesterol in LDL [Mass/Vol] 57 mg/dL Normal 0-130 [facility] Comment on above: Performed By: #### 2 196666 #### DWIGHT LauHemo [address] [place] [address] Cholesterol in VLDL [Mass/Vol] 10 mg/dL Normal 0-40 [facility] Comment on above: Performed By: #### 2 834500 #### DWIGHT LauHemo [address] [place] [address] Triglyceride [Mass/Vol] 49 mg/dL Normal 0-149 [facility] Comment on above: Result Comment: AGE DESIRABLE BORDERLINE HIGH 91 D - 9 Y 0 - 74 75 - 99 > 100 10 - 19 Y 0 - 89 90 - 129 > 130 20 - 24 Y 0 - 114 115 - 149 > 150 > 25 0 - 149 150 - 199 200 - 499 Performed By: #### 2 058610 #### DWIGHTMarielena LauHemo [address] [place] [address] Microalb/Creat Ratioon 10-23 Creatinine [Mass/Vol] 68.0 mg/dL Normal 20.0-300.0 [facility] Comment on above: Performed By: #### 2 195903 #### DWIGHT LauHemo [address] [address] Creatinine [Mass/Vol] 12 ug/mg Normal 0-30 [facility] Comment on above: Performed By: #### 2 060282 #### DWIGHT LauHemo [address] [address] Ur Microalbumin 0.8 mg/dL Normal 0.0-1.9 [facility] Comment on above: Performed By: #### 2 448383 #### DWIGHT LauHemo [facility] [address] TSHon 10-23-2018 TSH Qn 2.03 mcIU/mL Normal 0.30-5.60 [facility] Comment on above: Performed By: #### 2 351014 #### DWIGHT LauHemo [address] [place], [place] [id number] eGFRon 10-23-2018 GFR/1.73 sq M predicted among non-blacks MDRD (S/P/Bld) [Vol rate/Area] mL/min/{1.73_m2} Normal [facility] Comment on above: Order Comment: Order Added by Discern Expert. Performed By: #### 2 394984 #### DWIGHT LauHemo [address] [place] [address] CMPon 06-20-2018 Albumin [Mass/Vol] 4.1 g/dL Normal 3.4-5.0 [facility] Comment on above: Performed By: #### 2 849781 #### DWIGHT [employer] [address] [place] [address] Albumin/Globulin [Mass ratio] 1.4 {ratio} Normal 1.1-1.9 [facility] Comment on above: Performed By: #### 2 449895 #### DWIGHT [employer] [address] [place] [address] Alk Phos 80 Int._Unit/L Normal 33-136 [facility] Comment on above: Performed By: #### 2 416837 #### DWIGHT [employer] [address] [place] [address] ALT [Catalytic activity/Vol] 17 Int._Unit/L Normal 10-52 [facility] Comment on above: Performed By: #### 2 897613 #### DWIGHT [employer] [address] [place] [address] Anion gap [Moles/Vol] 9 mmol/L Low 10-20 [facility] Comment on above: Performed By: #### 2 214834 #### DWIGHT LauChem [facility] [place] [address] AST [Catalytic activity/Vol] 25 Int._Unit/L Normal 9-39 [facility] Comment on above: Performed By: #### 2 875881 #### DWIGHT LauChem [facility] [place] [address] Bili Total 0.65 mg/dL Normal 0.00-1.20 [facility] Comment on above: Performed By: #### 2 513671 #### DWIGHT [employer] [address] [place] [address] Calcium [Mass/Vol] 9.7 mg/dL Normal 8.6-10.3 [facility] Comment on above: Performed By: #### 2 248175 #### DWIGHT [employer] [address] [place] [address] Chloride [Moles/Vol] 104 mmol/L Normal 98-107 [facility] Comment on above: Performed By: #### 2 784045 #### DWIGHT RemChem [facility] [place] [address] CO2 [Moles/Vol] 30.0 mmol/L Normal 21.0-32.0 [facility] Comment on above: Performed By: #### 2 588511 #### DWIGHT [employer] [address] [place] [address] Creatinine [Mass/Vol] 0.9 mg/dL Normal 0.5-1.3 [facility] Comment on above: Performed By: #### 2 503201 #### DWIGHT [employer] [address] [place] [address] Globulin (S) [Mass/Vol] 3.0 g/dL Normal 2.0-4.0 [facility] Comment on above: Performed By: #### 2 677510 #### DWIGHT [employer] [address] [place] [address] Glucose [Mass/Vol] 58 mg/dL Low 70-99 [facility] Comment on above: Performed By: #### 2 185528 #### DWIGHT [employer] [address] [place] [address] Potassium [Moles/Vol] 4.3 mmol/L Normal 3.5-5.3 [facility] Comment on above: Performed By: #### 2 804744 #### DWIGHT [employer] [address] [place] [address] Protein [Mass/Vol] 7.1 g/dL Normal 6.4-8.2 [facility] Comment on above: Performed By: #### 2 077114 #### DWIGHT [employer] [address] [place] [address] Sodium [Moles/Vol] 139 mmol/L Normal 136-145 [facility] Comment on above: Performed By: #### 2 509471 #### DWIGHT [employer] [address] [place] [address] Urea nitrogen [Mass/Vol] 21 mg/dL Normal 6-23 [facility] Comment on above: Performed By: #### 2 679226 #### DWIGHT [employer] [address] [place] [address] Urea nitrogen/Creatinine [Mass ratio] 23.3 ratio Normal 5.4-30.0 [facility] Comment on above: Performed By: #### 2 117536 #### DWIGHT [facility] [address] [place] [address] [id number] 06-20-2018 HbA1c (Bld) [Mass fraction] 6.3 % Normal 4.0-6.3 [facility] Comment on above: Performed By: #### 2 345708 #### DWIGHT RemHemo [address] [place] [address] eGFRon 06-20-2018 GFR/1.73 sq M predicted among non-blacks MDRD (S/P/Bld) [Vol rate/Area] mL/min/{1.73_m2} Normal [facility] Comment on above: Order Comment: Order added by Discern Expert. Performed By: #### 1 [id number] #### DWIGHT [facility] [address] [place] [address] Auto Diffon 03-07-2018 Basophils (Bld) [#/Vol] 0.1 E3/mcL Normal 0.0-0.2 [facility] Comment on above: Order Comment: Order Added by Discern Expert. Performed By: #### 2 161440 #### DWIGHT RemHemo [address] [place] [address] Basophils/100 WBC (Bld) 1.1 % Normal 0.0-2.0 [facility] Comment on above: Order Comment: Order Added by Discern Expert. Performed By: #### 2 362481 #### DWIGHT RemHemo [address] [place] [address] Eos Absolute 0.3 E3/mcL Normal 0.0-0.7 [facility] Comment on above: Order Comment: Order Added by Lorenza Expert. Performed By: #### 2 814520 #### DWIGHT RemHemo [address] [place] [address] Eosinophils/100 WBC (Bld) 6.6 % Normal 0.0-11.0 [facility] Comment on above: Order Comment: Order Added by Discern Expert. Performed By: #### 2 623285 #### DWIGHT RemHemo [address] [place] [address] Lymphocytes (Bld) [#/Vol] 1.3 E3/mcL Normal 1.2-3.4 [facility] Comment on above: Order Comment: Order Added by Discern Expert. Performed By: #### 2 482842 #### DWIGHT RemHemo [address] [place] [address] Lymphocytes/100 WBC (Bld) 28.5 % Normal 20.0-55.0 [facility] Comment on above: Order Comment: Order Added by Discern Expert. Performed By: #### 2 986825 #### DWIGHT RemHemo [address] [place] [address] Ross Absolute 0.4 E3/mcL Normal 0.0-0.7 [facility] Comment on above: Order Comment: Order Added by Discern Expert. Performed By: #### 2 204799 #### DWIGHT LauHemo [address] [place] [address] Monocytes/100 WBC (Bld) 9.3 % Normal 0.0-10.0 [facility] Comment on above: Order Comment: Order Added by Discern Expert. Performed By: #### 2 520358 #### DWIGHT LauHemo [address] [place] [address] Neutro Absolute 2.5 E3/mcL Normal 1.4-6.5 [facility] Comment on above: Order Comment: Order Added by Discern Expert. Performed By: #### 2 068865 #### DWIGHT LauHemo [address] [address] Neutro Auto 54.5 % Normal 37.0-75.0 [facility] Comment on above: Order Comment: Order Added by Discern Expert. Performed By: #### 2 157553 #### DWIGHT LauHemo [facility] [place] [address] CBC w/ Auto Diffon 8 Erythrocyte distribution width (RBC) [Ratio] 14.3 % Normal 11.5-14.5 [facility] Comment on above: Performed By: #### 2 049451 #### DWIGHT Arangoo [address] [place] [address] Hematocrit (Bld) [Volume fraction] 42.4 % Normal 42.0-52.0 [facility] Comment on above: Performed By: #### 2 626680 #### DWIGHT LauHemo [address] [place] [address] Hemoglobin (Bld) [Mass/Vol] 14.2 g/dL Normal 13.5-18.0 [facility] Comment on above: Performed By: #### 2 789929 #### DWIGHT LauHemo [facility] [place] [address] MCH (RBC) [Entitic mass] 27.7 pg Normal 27.0-31.0 [facility] Comment on above: Performed By: #### 2 083181 #### DWIGHT LauHemo [facility] [place] [address] MCHC (RBC) [Mass/Vol] 33.5 g/dL Normal 33.0-37.0 [facility] Comment on above: Performed By: #### 2 917127 #### DWIGHT LauHemo [facility] [place] [address] MCV (RBC) [Entitic vol] 82.9 fL Normal 78.0-100.0 [facility] Comment on above: Performed By: #### 2 550732 #### DWIGHT JudiHemo [facility] [place] [address] Platelet mean volume (Bld) [Entitic vol] 8.3 fL Normal 7.4-11.0 [facility] Comment on above: Performed By: #### 2 378327 #### DWIGHT JudiHemo [address] [place] [address] Platelets (Bld) [#/Vol] 194 E3/mcL Normal 130-400 [facility] Comment on above: Performed By: #### 2 456053 #### DWIGHT JudiHemo [address] [place] [address] RBC (Bld) [#/Vol] 5.11 E6/mcL Normal 3.90-6.10 [facility] Comment on above: Performed By: #### 2 479129 #### DWIGHT LauHemo [address] [place] [address] WBC (Bld) [#/Vol] 4.6 E3/mcL Normal 3.6-11.0 [facility] Comment on above: Performed By: #### 2 304530 #### DWIGHT JudiHemo [facility] [place] [address] CMPon 03-07-2018 Albumin [Mass/Vol] 3.8 g/dL Normal 3.2-5.0 [facility] Comment on above: Performed By: #### 2 296062 #### DWIGHT JudiChem [facility] [place] [address] Albumin/Globulin [Mass ratio] 1.2 {ratio} Normal 1.1-1.9 [facility] Comment on above: Performed By: #### 2 360717 #### DWIGHT [facility] [place] [address] Alk Phos 63 Int._Unit/L Normal 42-121 [facility] Comment on above: Performed By: #### 2 533808 #### DWIGHT [facility] [address] [place] [address] ALT [Catalytic activity/Vol] 14 Int._Unit/L Normal 10-40 [facility] Comment on above: Performed By: #### 2 842233 #### DWIGHT [facility] [address] [place] [address] AST [Catalytic activity/Vol] 23 Int._Unit/L Normal 10-42 [facility] Comment on above: Performed By: #### 2 163644 #### DWIGHT [facility] [address] [place] [address] Bili Total 0.8 mg/dL Normal 0.2-1.0 [facility] Comment on above: Performed By: #### 2 773813 #### DWIGHT [facility] [address] [place] [address] Calcium [Mass/Vol] 9.3 mg/dL Normal 8.4-10.2 [facility] Comment on above: Performed By: #### 2 493677 #### DWIGHT [facility] [address] [place] [address] Chloride [Moles/Vol] 102 mmol/L Normal 98-107 [facility] Comment on above: Performed By: #### 2 654952 #### DWIGHT [facility] [address] [place] [address] CO2 [Moles/Vol] 25.1 mmol/L Normal 24.0-30.0 [facility] Comment on above: Performed By: #### 2 176619 #### DWIGHT [facility] [address] [place] [address] Creatinine [Mass/Vol] 0.8 mg/dL Normal 0.6-1.3 [facility] Comment on above: Performed By: #### 2 263722 #### DWIGHT [facility] [address] [place] [address] Globulin (S) [Mass/Vol] 3.1 g/dL Normal 2.0-4.0 [facility] Comment on above: Performed By: #### 2 190825 #### DWIGHT [facility] [address] [place] [address] Glucose [Mass/Vol] 137 mg/dL High 70-99 [facility] Comment on above: Performed By: #### 2 117488 #### DWIGHT [facility] [address] [place] [address] Potassium [Moles/Vol] 4.3 mmol/L Normal 3.5-5.1 [facility] Comment on above: Performed By: #### 2 707622 #### DWIGHT [employer] [address] [place] [address] Protein [Mass/Vol] 6.9 g/dL Normal 6.4-8.3 [facility] Comment on above: Performed By: #### 2 832905 #### DWIGHT [employer] [address] [place] [address] Sodium [Moles/Vol] 136 mmol/L Normal 136-145 [facility] Comment on above: Performed By: #### 2 086475 #### DWIGHT [facility] [address] [place] [address] Urea nitrogen [Mass/Vol] 17 mg/dL Normal 7-18 [facility] Comment on above: Performed By: #### 2 311186 #### DWIGHT [address] [address] Urea nitrogen/Creatinine [Mass ratio] 21.2 ratio Normal 5.4-30.0 [facility] Comment on above: Performed By: #### 2 817046 #### DWIGHT Rem[address] [address] Free T4on 03-07-2018 Free T4 [Mass/Vol] 0.92 ng/dL Normal 0.58-1.64 [facility] Comment on above: Performed By: #### 2 770285 #### DWIGHT [employer] [address] [place] [address] [id number] 03-07-2018 HbA1c (Bld) [Mass fraction] 7.9 % High 4.0-6.3 [facility] Comment on above: Performed By: #### 3 [id number] #### DWIGHT Chemistry Manual Subsection [address] [place] [address] Lipid Profileon 03-07-2018 Cholesterol [Mass/Vol] 102 mg/dL Normal 50-200 [facility] Comment on above: Result Comment: TOTA L CHOLEESTEROL: <200 NORMAL 200 - 239 BORDERLINE HIGH >240 HIGH Performed By: #### 3 [id number] #### DWIGHT [facility] [address] [place] [address] Cholesterol in HDL [Mass/Vol] 45 mg/dL Normal >=41 [facility] Comment on above: Performed By: #### 3 4354540 #### DWIGHT [facility] [address] [place] [address] Cholesterol in LDL [Mass/Vol] 44 mg/dL Normal 0-130 [facility] Comment on above: Result Comment: <100 OPTIMAL 100-129 NEAR / ABOVE OPTIMAL 130-159 BORDERLINE HIGH 160-189 HIGH >190 VERY HIGH CALC LDL NOT VALID WHEN TRIGLYCERIDE IS >400 MG/DL Performed By: #### 3 [id number] #### DWIGHT [facility] [address] [place] [address] Cholesterol in VLDL [Mass/Vol] 13 mg/dL Normal [facility] Comment on above: Performed By: #### 3 [id number] #### DWIGHT [facility] [address] [place] [address] Triglyceride [Mass/Vol] 66 mg/dL Normal 35-150 [facility] Comment on above: Result Comment: <150 NORMAL 150-199 BORDERLINE HIGH 200-499 HIGH >500 VERY HIGH Performed By: #### 3 4187251 #### DWIGHT [facility] [address] [place] [address] TSHon 03-07-2018 TSH Qn 2.18 mIU/m Normal 0.30-5.60 [facility] Comment on above: Performed By: #### 2 931399 #### DWIGHT [employer] [address] [place] [address] eGFRon 03-07-2018 GFR/1.73 sq M predicted among non-blacks MDRD (S/P/Bld) [Vol rate/Area] mL/min/{1.73_m2} Normal [facility] Comment on above: Order Comment: Order added by Discern Expert. Performed By: #### 1 [id number] #### DWIGHT [facility] [address] [place] [address] XR Hand Left 2 Viewson 12-26 XR Hand Left 2 Views X-ray left hand 3 views reveals a left fifth finger proximal phalangeal fracture anatomic alignment on the AP plane 35? angulation on the lateral film Invalid Interpretation Code [employer] [facility] Echocardiogram complete w co ntraston 11-21-2017 Echocardiogram complete w contrast Transthoracic Echocardiogram Patient: CLAYTON Mccollum Med Rec#: [id number] (Age): 1945(72y) Height: 170(cm)/66(in) Study Date: 11/21/2017 Weight: 110(kg)/242(lbs Room#: BSA: [id number] Type: Outpatient Loc: Sex: M Reading: Ernesto Gibbs MD, RVPI Referring[facility] Healy [facility] Pantograph Machine Set Up Operator: Yen Yeh RN, [facility] History: Aortic Valve replacement. -#23mm [facility] [...] Ernesto Gibbs MD, RVPI Invalid Interpretation Code [facility] Echocardiogram complete w contrast Interface, Rad [facility] 11/21/2017 4:38 PM EDT Transthoracic Echocardiogram Patient: CLAYTON Mccollum [facility] Rec#: [id number] (Age): 1945(72y) Height: 170(cm)/66(in) Study Date: 11/21/2017 Weight: 110(kg)/242(lbs Room#: BSA: [id number] Type: Outpatient Loc: Sex: M Reading: Ernesto Gibbs MD, RVPI Ref[facility]: [facility] ProvidDr. Preston Healy MD Pantograph Machine Set Up Operator: Yen Yeh RN, [facility] History: Aortic Valve replacement. -#23mm [facility] [...] Ernesto Gibbs MD, RVPI Invalid Interpretation Code [facility] Vital Signs Date Time Vital Sign Value Performing Clinician Facility 02-18-2025 20:15-0400 Heart rate 82 /min Dr. Gaetano Menendez MD Work Phone: [facility] 02-18-2025 20:15-0400 Respiratory rate 16 /min Dr. Gaetano Menendez MD Work Phone: [facility] 02-18-2025 20:15-0400 SaO2% (BldA) [Mass fraction] 95 % Dr. Gaetano Menendez MD Work Phone: [facility] 02-18-2025 14:30-0400 Body temperature 97.2 [degF] Dr. Gaetano Menendez MD Work Phone: [facility] 02-18-2025 14:30-0400 Diastolic blood pressure 45 mm[Hg] Dr. Gaetano Menendez MD Work Phone: [facility] 02-18-2025 14:30-0400 Systolic blood pressure 98 mm[Hg] Dr. Gaetano Menendez MD Work Phone: [facility] 02-18-2025 13:35-0400 Body temperature 98.1 [degF] Dr. Gaetano Menendez MD Work Phone: [facility] 02-18-2025 13:35-0400 Diastolic blood pressure 55 mm[Hg] Dr. Gaetano Menendez MD Work Phone: [facility] 02-18-2025 13:35-0400 Heart rate 71 /min Dr. Gaetano Menendez MD Work Phone: [facility] 02-18-2025 13:35-0400 Respiratory rate 16 /min Dr. Gaetano Menendez MD Work Phone: [facility] 02-18-2025 13:35-0400 SaO2% (BldA) [Mass fraction] 93 % Dr. Gaetano Menendez MD Work Phone: [facility] 02-18-2025 13:35-0400 Systolic blood pressure 106 mm[Hg] Dr. Gaetano Menendez MD Work Phone: [facility] 02-18-2025 13:21-0400 Body height 170.[address] Gaetano Menendez MD Work Phone: [facility] 02-18-2025 13:21-0400 Body weight 97.[address] Gaetano Menendez MD Work Phone: [facility] 02-18-2025 12:18-0400 Body mass index (BMI) [Ratio] 33.6 kg/m2 Dr. Gaetano Menendez MD Work Phone: [facility] 02-18-2025 12:18-0400 Body weight 97.[address] Gaetano Menendez MD Work Phone: [facility] 02-18-2025 08:37-0400 Body mass index (BMI) [Ratio] 33.5 kg/m2 Dr. Gaetano Menendez MD Work Phone: [facility] 02-09-2025 11:43-0400 Body temperature 98.49 [degF] Kelly Burton MD Work Phone: [facility] 02-09-2025 11:43-0400 Diastolic blood pressure 55 mm[Hg] Kelly Burton MD Work Phone: [facility] 02-09-2025 11:43-0400 Heart rate 85 /min Kelly Burton MD Work Phone: [facility] 02-09-2025 11:43-0400 Respiratory rate 24 /min Kelly Burton MD Work Phone: [facility] 02-09-2025 11:43-0400 SaO2% (BldA) [Mass fraction] 94 % Kelly Burton MD Work Phone: [facility] 02-09-2025 11:43-0400 Systolic blood pressure 100 mm[Hg] Kelly Burton MD Work Phone: [facility] 02-09-2025 06:13-0400 Body mass index (BMI) [Ratio] 32.73 kg/m2 Kelly Burton MD Work Phone: [facility] 02-09-2025 06:13-0400 Body weight 94.8 kg Kelly Burton MD Work Phone: [facility] 01-29-2025 00:04-0400 Body height 170.2 cm Kelly Burton MD Work Phone: [facility] 01-28-2025 10:58-0400 Body height 170.2 cm Bradley Moore MD Work Phone: [facility] 01-28-2025 10:58-0400 Body mass index (BMI) [Ratio] 34.46 kg/m2 Bradley Moore MD Work Phone: [facility] 01-28-2025 10:58-0400 Body weight 99.79 kg Bradley Moore MD Work Phone: [facility] 11-21-2024 11:06-0400 Body temperature 98.1 [degF] Hola Arroyo Jr. DPM Work Phone: [facility] 11-21-2024 11:06-0400 Diastolic blood pressure 78 mm[Hg] Hola Arroyo Jr. DPM Work Phone: [facility] 11-21-2024 11:06-0400 Heart rate 79 /min Hola Arroyo Jr. DPM Work Phone: [facility] 11-21-2024 11:06-0400 Systolic blood pressure 121 mm[Hg] Hola Arroyo Jr. DPM Work Phone: [facility] 11-12-2024 08:50-0400 Body mass index (BMI) [Ratio] 34.99 kg/m2 Radha Hughes CNP Work Phone: [facility] 11-12-2024 08:50-0400 Body weight 101.33 kg Radha Hughes MOLD [employer]ER Work Phone: [facility] 11-12-2024 08:50-0400 Diastolic blood pressure 71 mm[Hg] Radha Hughes MOLD [employer]ER Work Phone: [facility] 11-12-2024 08:50-0400 Heart rate 99 /min Radha Hughes MOLD [employer]ER Work Phone: [facility] 11-12-2024 08:50-0400 Systolic blood pressure 109 mm[Hg] Radha Hughes MOLD CO[employer]ER Work Phone: [facility] 10-30-2024 08:38-0400 Body height 170.2 cm Liliya Shank M[employer]ER Work Phone: [facility] 10-30-2024 08:38-0400 Body mass index (BMI) [Ratio] 35.07 kg/m2 Liliya Shank M[employer]ER Work Phone: [facility] 10-30-2024 08:38-0400 Body temperature 97.81 [degF] Liliya Shank MOLD [employer]ER Work Phone: [facility] 10-30-2024 08:38-0400 Body weight 101.56 kg Liliya Shank MOLD [employer]ER Work Phone: [facility] 10-30-2024 08:38-0400 Diastolic blood pressure 72 mm[Hg] Liliya Shank MOLD [employer]ER Work Phone: [facility] 10-30-2024 08:38-0400 Heart rate 85 /min Liliya Shank M[employer]ER Work Phone: [facility] 10-30-2024 08:38-0400 Respiratory rate 16 /min Liliya Shank M[employer]ER Work Phone: [facility] 10-30-2024 08:38-0400 SaO2% (BldA) [Mass fraction] 96 % Liliya Shank MOLD [employer]ER Work Phone: [facility] 10-30-2024 08:38-0400 Systolic blood pressure 128 mm[Hg] Liliya Shank MOLD [employer]ER Work Phone: [facility] 10-19-2024 08:50-0400 Body height 170.2 cm Preston Healy MD Work Phone: [facility] 10-19-2024 08:50-0400 Body mass index (BMI) [Ratio] 34.3 kg/m2 Preston Healy MD Work Phone: [facility] 10-19-2024 08:50-0400 Body weight 99.34 kg Preston Healy MD Work Phone: [facility] 10-19-2024 08:50-0400 Diastolic blood pressure 51 mm[Hg] Preston Healy MD Work Phone: [facility] 10-19-2024 08:50-0400 Heart rate 79 /min Preston Healy MD Work Phone: [facility] 10-19-2024 08:50-0400 SaO2% (BldA) [Mass fraction] 92 % Preston Healy MD Work Phone: [facility] 10-19-2024 08:50-0400 Systolic blood pressure 106 mm[Hg] Preston Healy MD Work Phone: [facility] 06-06-2024 10:59-0500 Body height 170.2 cm Vivien Foreman MD Work Phone: [facility] 06-06-2024 10:59-0500 Body mass index (BMI) [Ratio] 33.99 kg/m2 Vivien Foreman MD Work Phone: [facility] 06-06-2024 10:59-0500 Body temperature 98.01 [degF] Vivien Foreman MD Work Phone: [facility] 06-06-2024 10:59-0500 Body weight 98.43 kg Vivien Foreman MD Work Phone: [facility] 06-06-2024 10:59-0500 Diastolic blood pressure 78 mm[Hg] Vivien Foreman MD Work Phone: [facility] 06-06-2024 10:59-0500 Heart rate 62 /min Vivien Foreman MD Work Phone: [facility] 06-06-2024 10:59-0500 Respiratory rate 16 /min Vivien Foreman MD Work Phone: [facility] 06-06-2024 10:59-0500 SaO2% (BldA) [Mass fraction] 97 % Vivien Foreman MD Work Phone: [facility] 06-06-2024 10:59-0500 Systolic blood pressure 128 mm[Hg] Vivien Foreman MD Work Phone: [facility] 05-23-2024 11:06-0500 Body temperature 98.2 [degF] Hola Arroyo Jr., DPM Work Phone: [facility] 05-23-2024 11:06-0500 Diastolic blood pressure 62 mm[Hg] Hola Arroyo Jr., DPM Work Phone: [facility] 05-23-2024 11:06-0500 Heart rate 82 /min Hola Arroyo Jr., DPM Work Phone: [facility] 05-23-2024 11:06-0500 Systolic blood pressure 119 mm[Hg] Hola Arroyo Jr., DPM Work Phone: [facility] 05-18-2024 08:27-0500 Diastolic blood pressure 69 mm[Hg] Radha Hughes MOLD [employer]ER Work Phone: [facility] 05-18-2024 08:27-0500 Heart rate 93 /min Radha Hughes MOLD [employer]ER Work Phone: [facility] 05-18-2024 08:27-0500 Systolic blood pressure 136 mm[Hg] Radha Hughes MOLD CO[employer]ER Work Phone: [facility] 05-18-2024 08:15-0500 Body mass index (BMI) [Ratio] 34.85 kg/m2 Radha Hughes MOLD [employer]ER Work Phone: [facility] 05-18-2024 08:15-0500 Body weight 100.92 kg Radha Hughes MOLD CO[employer]ER Work Phone: [facility] 02-22-2024 13:47-0400 Body temperature 97.59 [degF] Hola Mohrn Jr., DPM Work Phone: [facility] 02-22-2024 13:47-0400 Diastolic blood pressure 66 mm[Hg] Hola Mohrn Jr., DPM Work Phone: [facility] 02-22-2024 13:47-0400 Heart rate 109 /min Hola Mohrn Jr., DPM Work Phone: [facility] 02-22-2024 13:47-0400 Systolic blood pressure 100 mm[Hg] Hola Arroyo Jr., DPM Work Phone: [facility] 01-26-2024 09:26-0400 Diastolic blood pressure 70 mm[Hg] W. Megganske III, DO Work Phone: [facility] 01-26-2024 09:26-0400 Systolic blood pressure 110 mm[Hg] W. Craske III, DO Work Phone: [facility] 01-26-2024 09:23-0400 Body mass index (BMI) [Ratio] 35.24 kg/m2 W. Craske III, DO Work Phone: [facility] 01-26-2024 09:23-0400 Body weight 102.06 kg W. Craske III, DO Work Phone: [facility] 01-26-2024 09:23-0400 Heart rate 81 /min W. Craske III, DO Work Phone: [facility] 01-26-2024 09:23-0400 SaO2% (BldA) [Mass fraction] 97 % W. Craske III, DO Work Phone: [facility] 12-09-2023 08:46-0400 Body mass index (BMI) [Ratio] 36.81 kg/m2 Radha Hughes MOLD CO[employer]ER Work Phone: [facility] 12-09-2023 08:46-0400 Body weight 106.59 kg Radha Hughes MOLD CO[employer]ER Work Phone: [facility] 12-09-2023 08:46-0400 Diastolic blood pressure 88 mm[Hg] Radha Hughes MOLD CO[employer]ER Work Phone: [facility] 12-09-2023 08:46-0400 Heart rate 93 /min Radha Hughes MOLD [employer]ER Work Phone: [facility] 12-09-2023 08:46-0400 Systolic blood pressure 135 mm[Hg] Radha Hughes MOLD CO[employer]ER Work Phone: [facility] 11-29-2023 07:27-0400 Body height 170.2 cm Vivien Foreman MD Work Phone: [facility] 11-29-2023 07:27-0400 Body mass index (BMI) [Ratio] 35.4 kg/m2 Vivien Foreman MD Work Phone: [facility] 11-29-2023 07:27-0400 Body temperature 98.2 [degF] Vivien Foreman MD Work Phone: [facility] 11-29-2023 07:27-0400 Body weight 102.51 kg Vivien Foreman MD Work Phone: [facility] 11-29-2023 07:27-0400 Diastolic blood pressure 72 mm[Hg] Vivien Foreman MD Work Phone: [facility] 11-29-2023 07:27-0400 Heart rate 54 /min Vivien Foreman MD Work Phone: [facility] 11-29-2023 07:27-0400 Respiratory rate 16 /min Vivien Foreman MD Work Phone: [facility] 11-29-2023 07:27-0400 SaO2% (BldA) [Mass fraction] 93 % Vivien Foreman MD Work Phone: [facility] 11-29-2023 07:27-0400 Systolic blood pressure 134 mm[Hg] Vivien Foreman MD Work Phone: [facility] 11-23-2023 10:27-0400 Diastolic blood pressure 66 mm[Hg] Hola Mohrcecile [place], DPM Work Phone: [facility] 11-23-2023 10:27-0400 Heart rate 85 /min Hola Arroyo Jr., DPM Work Phone: [facility] 11-23-2023 10:27-0400 Systolic blood pressure 102 mm[Hg] Hola Mohrcecile Rhodes., DPM Work Phone: [facility] 11-23-2023 10:00-0400 Body temperature 97.9 [degF] Hola Mohrcecile Rhodes., DPM Work Phone: [facility] 11-23-2023 10:00-0400 SaO2% (BldA) [Mass fraction] 93 % Hola Mohrcecile [place], DPM Work Phone: [facility] 11-11-2023 09:38-0400 Diastolic blood pressure 53 mm[Hg] Preston Healy MD Work Phone: [facility] 11-11-2023 09:38-0400 Systolic blood pressure 98 mm[Hg] Preston Healy MD Work Phone: [facility] 11-11-2023 09:33-0400 Body height 170.2 cm Preston Healy MD Work Phone: [facility] 11-11-2023 09:33-0400 Body mass index (BMI) [Ratio] 35.4 kg/m2 Preston Healy MD Work Phone: [facility] 11-11-2023 09:33-0400 Body weight 102.51 kg Preston Healy MD Work Phone: [facility] 11-11-2023 09:33-0400 Heart rate 83 /min Preston Healy MD Work Phone: [facility] 11-11-2023 09:33-0400 SaO2% (BldA) [Mass fraction] 92 % Preston Healy MD Work Phone: [facility] 10-27-2023 09:38-0400 Diastolic blood pressure 67 mm[Hg] W. Craske III, DO Work Phone: [facility] 10-27-2023 09:38-0400 Heart rate 88 /min W. Craske III, DO Work Phone: [facility] 10-27-2023 09:38-0400 Systolic blood pressure 103 mm[Hg] W. Craske III, DO Work Phone: [facility] 10-27-2023 09:28-0400 Body height 170.2 cm W. Craske III, DO Work Phone: [facility] 10-27-2023 09:28-0400 Body mass index (BMI) [Ratio] 35.87 kg/m2 W. Craske III, DO Work Phone: [facility] 10-27-2023 09:28-0400 Body weight 103.87 kg W. Craske III, DO Work Phone: [facility] 08-08-2023 11:00-0500 Body height 170.2 cm Besslaura Villanueva [facility] 08-08-2023 11:00-0500 Body mass index (BMI) [Ratio] 37.75 kg/m2 Bessrobby Villanueva [facility] 08-08-2023 11:00-0500 Body weight 109.32 kg Bessrobby Aguilars [facility] 07-28-2023 08:54-0500 Diastolic blood pressure 77 mm[Hg] W. Craske III, DO Work Phone: [facility] 07-28-2023 08:54-0500 Heart rate 85 /min W. Craske III, DO Work Phone: [facility] 07-28-2023 08:54-0500 Systolic blood pressure 123 mm[Hg] W. Craske III, DO Work Phone: [facility] 07-28-2023 08:46-0500 Body height 170.2 cm WLaquita Craske III, DO Work Phone: [facility] 07-28-2023 08:46-0500 Body mass index (BMI) [Ratio] 37.75 kg/m2 W. Craske III, DO Work Phone: [facility] 07-28-2023 08:46-0500 Body weight 109.32 kg W. Megganske III, DO Work Phone: [facility] 06-30-2023 09:42-0500 Diastolic blood pressure 70 mm[Hg] W. Megganske III, DO Work Phone: [facility] 06-30-2023 09:42-0500 Heart rate 86 /min WLaquita Broderickske III, DO Work Phone: [facility] 06-30-2023 09:42-0500 Systolic blood pressure 121 mm[Hg] W. Megganske III, DO Work Phone: [facility] 06-30-2023 09:34-0500 Body height 170.2 cm WLaquita Broderickske III, DO Work Phone: [facility] 06-30-2023 09:34-0500 Body mass index (BMI) [Ratio] 36.65 kg/m2 W. Craske III, DO Work Phone: [facility] 06-30-2023 09:34-0500 Body weight 106.14 kg WLaquita Broderickske III, DO Work Phone: [facility] 06-06-2023 09:17-0500 Diastolic blood pressure 70 mm[Hg] Radha Hughes MOLD [employer]ER Work Phone: [facility] 06-06-2023 09:17-0500 Systolic blood pressure 128 mm[Hg] Radha Hughes MOLD [employer]ER Work Phone: [facility] 06-06-2023 08:56-0500 Body mass index (BMI) [Ratio] 37.32 kg/m2 Radha Hughes MOLD [employer]ER Work Phone: [facility] 11-27-2023 08:56-0500 Body weight 108.09 kg Radha Hughes MOLD [employer]ER Work Phone: [facility] 06-06-2023 08:56-0500 Heart rate 74 /min Radha Hughes MOLD [employer]ER Work Phone: [facility] 05-13-2023 07:59-0400 Body temperature 97.5 [degF] Hola Mohrn ., DPM Work Phone: [facility] 05-13-2023 07:59-0400 Diastolic blood pressure 68 mm[Hg] Hola Cruz Jr., DPM Work Phone: [facility] 05-13-2023 07:59-0400 Heart rate 86 /min Holacaron Arroyo Jr., DPM Work Phone: [facility] 05-13-2023 07:59-0400 Systolic blood pressure 115 mm[Hg] Hola Arroyo Jr., DPM Work Phone: [facility] 03-04-2023 08:10-0400 Body height 170.2 cm Preston Healy MD Work Phone: [facility] 03-04-2023 08:10-0400 Body mass index (BMI) [Ratio] 36.18 kg/m2 Preston Healy MD Work Phone: [facility] 03-04-2023 08:10-0400 Body weight 104.78 kg Preston Healy MD Work Phone: [facility] 03-04-2023 08:10-0400 Diastolic blood pressure 79 mm[Hg] Preston Healy MD Work Phone: [facility] 03-04-2023 08:10-0400 Heart rate 84 /min Preston Healy MD Work Phone: [facility] 03-04-2023 08:10-0400 SaO2% (BldA) [Mass fraction] 93 % Preston Healy MD Work Phone: [facility] 03-04-2023 08:10-0400 Systolic blood pressure 123 mm[Hg] Preston Healy MD Work Phone: [facility] 01-21-2023 09:42-0400 Body height 170.2 cm Vivien Foreman MD Work Phone: [facility] 01-21-2023 09:42-0400 Body mass index (BMI) [Ratio] 35.87 kg/m2 Vivien Foreman MD Work Phone: [facility] 01-21-2023 09:42-0400 Body temperature 98.01 [degF] Vivien Foreman MD Work Phone: [facility] 01-21-2023 09:42-0400 Body weight 103.87 kg Vivien Foreman MD Work Phone: [facility] 01-21-2023 09:42-0400 Diastolic blood pressure 66 mm[Hg] Vivien Foreman MD Work Phone: [facility] 01-21-2023 09:42-0400 Heart rate 83 /min Vivien Foreman MD Work Phone: [facility] 01-21-2023 09:42-0400 Respiratory rate 16 /min Vivien Foreman MD Work Phone: [facility] 01-21-2023 09:42-0400 SaO2% (BldA) [Mass fraction] 92 % Vivien Foreman MD Work Phone: [facility] 01-21-2023 09:42-0400 Systolic blood pressure 115 mm[Hg] Vivien Foreman MD Work Phone: [facility] 01-07-2023 08:05-0400 Body temperature 98.4 [degF] Hola Arroyo Jr. DPOlegario Work Phone: [facility] 01-07-2023 08:05-0400 Diastolic blood pressure 74 mm[Hg] Hola Arroyo Jr. DPOlegario Work Phone: [facility] 01-07-2023 08:05-0400 Heart rate 83 /min Hola Arroyo Jr., DPM Work Phone: [facility] 01-07-2023 08:05-0400 Systolic blood pressure 114 mm[Hg] Holaobed Arroyo Jr., DPM Work Phone: [facility] 12-09-2022 08:37-0400 Diastolic blood pressure 77 mm[Hg] WLaquita Broderickske III, DO Work Phone: [facility] 12-09-2022 08:37-0400 Heart rate 97 /min WLaquita Broderickske III, DO Work Phone: [facility] 12-09-2022 08:37-0400 Systolic blood pressure 144 mm[Hg] WLaquita Craske III, DO Work Phone: [facility] 12-09-2022 08:28-0400 Body height 170.2 cm WLaquita Craske III, DO Work Phone: [facility] 12-09-2022 08:28-0400 Body mass index (BMI) [Ratio] 35.24 kg/m2 WLaquita Craske III, DO Work Phone: [facility] 12-09-2022 08:28-0400 Body weight 102.06 kg WLaquita Broderickske III, DO Work Phone: [facility] 07-23-2022 12:29-0500 Body height 170.2 cm Vivien Foreman MD Work Phone: [facility] 07-23-2022 12:29-0500 Body mass index (BMI) [Ratio] 35.32 kg/m2 Vivien Foreman MD Work Phone: [facility] 07-23-2022 12:29-0500 Body temperature 98.1 [degF] Vivien Foreman MD Work Phone: [facility] 07-23-2022 12:29-0500 Body weight 102.29 kg Vivien Foreman MD Work Phone: [facility] 07-23-2022 12:29-0500 Diastolic blood pressure 63 mm[Hg] Vivien Foreman MD Work Phone: [facility] 07-23-2022 12:29-0500 Heart rate 73 /min Vivien Foreman MD Work Phone: [facility] 07-23-2022 12:29-0500 Respiratory rate 16 /min Vivien Foreman MD Work Phone: [facility] 07-23-2022 12:29-0500 SaO2% (BldA) [Mass fraction] 96 % Vivien Foreman MD Work Phone: [facility] 07-23-2022 12:29-0500 Systolic blood pressure 119 mm[Hg] Vivien Foreman MD Work Phone: [facility] 07-09-2022 08:21-0500 Diastolic blood pressure 70 mm[Hg] Hola Arroyo Jr., DPM Work Phone: [facility] 07-09-2022 08:21-0500 Heart rate 67 /min Hola Arroyo Jr., DPM Work Phone: [facility] 07-09-2022 08:21-0500 Systolic blood pressure 122 mm[Hg] Hola Arroyo Jr., DPM Work Phone: [facility] 07-09-2022 08:16-0500 Body temperature 96.8 [degF] Hola Arroyo Jr., DPM Work Phone: [facility] 06-14-2022 08:05-0500 Diastolic blood pressure 62 mm[Hg] Vivien Foreman MD Work Phone: [facility] 06-14-2022 08:05-0500 Systolic blood pressure 104 mm[Hg] Vivien Foreman MD Work Phone: [facility] 06-14-2022 08:04-0500 Body height 170.2 cm Vivien Foreman MD Work Phone: [facility] 06-14-2022 08:04-0500 Body mass index (BMI) [Ratio] 35.01 kg/m2 Vivien Foreman MD Work Phone: [facility] 06-14-2022 08:04-0500 Body temperature 97.81 [degF] Vivien Foreman MD Work Phone: [facility] 06-14-2022 08:04-0500 Body weight 101.38 kg Vivien Foreman MD Work Phone: [facility] 06-14-2022 08:04-0500 Heart rate 87 /min Vivien Foreman MD Work Phone: [facility] 06-14-2022 08:04-0500 Respiratory rate 18 /min Vivien Foreman MD Work Phone: [facility] 06-14-2022 08:04-0500 SaO2% (BldA) [Mass fraction] 92 % Vivien Foreman MD Work Phone: [facility] Comment on above: room air 05-14-2022 08:25-0400 Body height 170.2 cm Preston Healy MD Work Phone: [facility] 05-14-2022 08:25-0400 Body mass index (BMI) [Ratio] 34.14 kg/m2 Preston Healy MD Work Phone: [facility] 05-14-2022 08:25-0400 Body weight 98.88 kg Preston Healy MD Work Phone: [facility] 05-14-2022 08:25-0400 Diastolic blood pressure 68 mm[Hg] Preston Healy MD Work Phone: [facility] 05-14-2022 08:25-0400 Heart rate 79 /min Preston Healy MD Work Phone: [facility] 05-14-2022 08:25-0400 SaO2% (BldA) [Mass fraction] 93 % Preston Healy MD Work Phone: [facility] 05-14-2022 08:25-0400 Systolic blood pressure 126 mm[Hg] Preston Healy MD Work Phone: [facility] 04-07-2022 07:58-0400 Body temperature 96.69 [degF] Hola Arroyo Jr., DPM Work Phone: [facility] 04-07-2022 07:58-0400 Diastolic blood pressure 77 mm[Hg] Hola Mohrn Jr., DPM Work Phone: [facility] 04-07-2022 07:58-0400 Heart rate 72 /min Hola Arroyo Jr., DPM Work Phone: [facility] 04-07-2022 07:58-0400 Systolic blood pressure 129 mm[Hg] Hola Arroyo Jr., DPM Work Phone: [facility] 03-17-2022 14:20-0400 Diastolic blood pressure 73 mm[Hg] W. Craske III, DO Work Phone: [facility] 03-17-2022 14:20-0400 Heart rate 80 /min W. Craske III, DO Work Phone: [facility] 03-17-2022 14:20-0400 Systolic blood pressure 112 mm[Hg] W. Craske III, DO Work Phone: [facility] 03-17-2022 14:14-0400 Body height 170.2 cm W. Craske III, DO Work Phone: [facility] 03-17-2022 14:14-0400 Body mass index (BMI) [Ratio] 34.14 kg/m2 W. Craske III, DO Work Phone: [facility] 03-17-2022 14:14-0400 Body weight 98.88 kg W. Craske III, DO Work Phone: [facility] 02-22-2022 07:54-0400 Body height 170.2 cm Vivien Foreman MD Work Phone: [facility] 02-22-2022 07:54-0400 Body mass index (BMI) [Ratio] 34.14 kg/m2 Vivien Foreman MD Work Phone: [facility] 02-22-2022 07:54-0400 Body temperature 98.01 [degF] Vivien Foreman MD Work Phone: [facility] 02-22-2022 07:54-0400 Body weight 98.88 kg Vivien Foreman MD Work Phone: [facility] 02-22-2022 07:54-0400 Diastolic blood pressure 70 mm[Hg] Vivien Foreman MD Work Phone: [facility] 02-22-2022 07:54-0400 Heart rate 64 /min Vivien Foreman MD Work Phone: [facility] 02-22-2022 07:54-0400 SaO2% (BldA) [Mass fraction] 97 % Vivien Foreman MD Work Phone: [facility] 02-22-2022 07:54-0400 Systolic blood pressure 132 mm[Hg] Vivien Foreman MD Work Phone: [facility] 02-19-2022 08:06-0400 Body mass index (BMI) [Ratio] 33.99 kg/m2 Radha Hughes CNP Work Phone: [facility] 02-19-2022 08:06-0400 Body weight 98.43 kg Radha Hughes CNP Work Phone: [facility] 02-19-2022 08:06-0400 Diastolic blood pressure 69 mm[Hg] Radha Hughes MOLD [employer]ER Work Phone: [facility] 02-19-2022 08:06-0400 Heart rate 63 /min Radha Hughes MOLD [employer]ER Work Phone: [facility] 02-19-2022 08:06-0400 Systolic blood pressure 136 mm[Hg] Radha Hughes MOLD [employer]ER Work Phone: [facility] 12-23-2021 08:13-0400 Body temperature 97.5 [degF] Hola Cruz Jr., DPM Work Phone: [facility] 12-23-2021 08:13-0400 Diastolic blood pressure 75 mm[Hg] Hola Arroyo Jr., DPM Work Phone: [facility] 12-23-2021 08:13-0400 Heart rate 66 /min Hola Arrooy Jr., DPM Work Phone: [facility] 12-23-2021 08:13-0400 Systolic blood pressure 132 mm[Hg] Hola Arroyo Jr., DPM Work Phone: [facility] 10-12-2021 08:01-0400 Body height 170.2 cm Radha Hughes MOLD CO[employer]ER Work Phone: [facility] 10-12-2021 08:01-0400 Body mass index (BMI) [Ratio] 36.41 kg/m2 Radha Hughes M[employer]ER Work Phone: [facility] 10-12-2021 08:01-0400 Body weight 105.46 kg Radha Hughes MOLD CO[employer]ER Work Phone: [facility] 10-12-2021 08:01-0400 Diastolic blood pressure 73 mm[Hg] Radha Hughes MOLD [employer]ER Work Phone: [facility] 10-12-2021 08:01-0400 Heart rate 80 /min Radha Hughes MOLD [employer]ER Work Phone: [facility] 10-12-2021 08:01-0400 Systolic blood pressure 118 mm[Hg] Radhagilson Hughes MOLD CO[employer]ER Work Phone: [facility] 06-19-2021 08:25-0500 Body height 170.2 cm Preston Healy MD Work Phone: [facility] 06-19-2021 08:25-0500 Body mass index (BMI) [Ratio] 36.65 kg/m2 Preston Healy MD Work Phone: [facility] 06-19-2021 08:25-0500 Body weight 106.14 kg Preston Healy MD Work Phone: [facility] 06-19-2021 08:25-0500 Diastolic blood pressure 68 mm[Hg] Preston Healy MD Work Phone: [facility] 06-19-2021 08:25-0500 Heart rate 73 /min Preston Healy MD Work Phone: [facility] 06-19-2021 08:25-0500 Systolic blood pressure 129 mm[Hg] Preston Healy MD Work Phone: [facility] 06-15-2021 08:47-0500 Body mass index (BMI) [Ratio] 36.79 kg/m2 Radha Hughes MOLD COOLER Work Phone: [facility] 06-15-2021 08:47-0500 Body weight 106.55 kg Radha Hughes M[employer]ER Work Phone: [facility] 06-15-2021 08:47-0500 Diastolic blood pressure 78 mm[Hg] Radha Hughes MOLD [employer]ER Work Phone: [facility] 06-15-2021 08:47-0500 Heart rate 91 /min Radha Hughes [employer]ER Work Phone: [facility] 06-15-2021 08:47-0500 Systolic blood pressure 128 mm[Hg] Radhagilson Hughes MOLD COOLER Work Phone: [facility] 06-12-2021 10:11-0500 Body height 170.2 cm Vivien Foreman MD Work Phone: [facility] 06-12-2021 10:11-0500 Body mass index (BMI) [Ratio] 36.74 kg/m2 Vivien Foreman MD Work Phone: [facility] 06-12-2021 10:11-0500 Body temperature 97.9 [degF] Vivien Foreman MD Work Phone: [facility] 06-12-2021 10:11-0500 Body weight 106.41 kg Vivien Foreman MD Work Phone: [facility] 06-12-2021 10:11-0500 Diastolic blood pressure 83 mm[Hg] Vivien Foreman MD Work Phone: [facility] 06-12-2021 10:11-0500 Heart rate 90 /min Vivien Foreman MD Work Phone: [facility] 06-12-2021 10:11-0500 Respiratory rate 18 /min Vivien Foreman MD Work Phone: [facility] 06-12-2021 10:11-0500 SaO2% (BldA) [Mass fraction] 94 % Vivien Foreman MD Work Phone: [facility] 06-12-2021 10:11-0500 Systolic blood pressure 129 mm[Hg] Vivien Foreman MD Work Phone: [facility] 03-25-2021 08:09-0400 Body temperature 96.8 [degF] Hola Arroyo Jr., DPM Work Phone: [facility] 03-25-2021 08:09-0400 Diastolic blood pressure 72 mm[Hg] Hola Arroyo Jr., DPM Work Phone: [facility] 03-25-2021 08:09-0400 Heart rate 81 /min Hola Arroyo Jr., DPM Work Phone: [facility] 03-25-2021 08:09-0400 Systolic blood pressure 137 mm[Hg] Hola Arroyo Jr., DPM Work Phone: [facility] 03-02-2021 09:53-0400 Body height 170.2 cm Vivien Foreman MD Work Phone: [facility] 03-02-2021 09:53-0400 Body mass index (BMI) [Ratio] 36.18 kg/m2 Vivien Foreman MD Work Phone: [facility] 03-02-2021 09:53-0400 Body temperature 99 [degF] Vivien Foreman MD Work Phone: [facility] 03-02-2021 09:53-0400 Body weight 104.78 kg Vivien Foreman MD Work Phone: [facility] 03-02-2021 09:53-0400 Diastolic blood pressure 62 mm[Hg] Vivien Foreman MD Work Phone: [facility] 03-02-2021 09:53-0400 Heart rate 83 /min Vivien Foreman MD Work Phone: [facility] 03-02-2021 09:53-0400 Respiratory rate 16 /min Vivien Foreman MD Work Phone: [facility] 03-02-2021 09:53-0400 SaO2% (BldA) [Mass fraction] 96 % Vivien Foreman MD Work Phone: [facility] 03-02-2021 09:53-0400 Systolic blood pressure 120 mm[Hg] Vivien Foreman MD Work Phone: [facility] 03-02-2021 09:13-0400 Diastolic blood pressure 75 mm[Hg] Radha Hughes MOLD COOLER Work Phone: [facility] 03-02-2021 09:13-0400 Heart rate 92 /min Radha Hughes M[employer]ER Work Phone: [facility] 03-02-2021 09:13-0400 Systolic blood pressure 133 mm[Hg] Radha Hughes MOLD CO[employer]ER Work Phone: [facility] 03-02-2021 09:06-0400 Body height 170.2 cm Radha Hughes M[employer]ER Work Phone: [facility] 03-02-2021 09:06-0400 Body mass index (BMI) [Ratio] 36.31 kg/m2 Radha Hughes M[employer]ER Work Phone: [facility] 03-02-2021 09:06-0400 Body weight 105.14 kg Radha Hughes M[employer]ER Work Phone: [facility] 02-27-2021 08:26-0400 Body height 170.2 cm Preston Healy MD Work Phone: [facility] 02-27-2021 08:26-0400 Body mass index (BMI) [Ratio] 36.34 kg/m2 Preston Haely MD Work Phone: [facility] 02-27-2021 08:26-0400 Body weight 105.23 kg Preston Healy MD Work Phone: [facility] 02-27-2021 08:26-0400 Diastolic blood pressure 64 mm[Hg] Preston Healy MD Work Phone: [facility] 02-27-2021 08:26-0400 Heart rate 78 /min Preston Healy MD Work Phone: [facility] 02-27-2021 08:26-0400 SaO2% (BldA) [Mass fraction] 95 % Preston Healy MD Work Phone: [facility] 02-27-2021 08:26-0400 Systolic blood pressure 117 mm[Hg] Preston Healy MD Work Phone: [facility] 01-09-2021 08:31-0400 Body height 170.2 cm Preston Healy MD Work Phone: [facility] 01-09-2021 08:31-0400 Body mass index (BMI) [Ratio] 33.83 kg/m2 Preston Healy MD Work Phone: [facility] 01-09-2021 08:31-0400 Body weight 97.98 kg Preston Healy MD Work Phone: [facility] 01-09-2021 08:31-0400 Diastolic blood pressure 72 mm[Hg] Preston Healy MD Work Phone: [facility] 01-09-2021 08:31-0400 Heart rate 81 /min Preston Healy MD Work Phone: [facility] 01-09-2021 08:31-0400 SaO2% (BldA) [Mass fraction] 93 % Preston Healy MD Work Phone: [facility] 01-09-2021 08:31-0400 Systolic blood pressure 116 mm[Hg] Preston Healy MD Work Phone: [facility] 01-05-2021 09:04-0400 Body height 170.2 cm Radha Hughes MOLD CO[employer]ER Work Phone: [facility] 01-05-2021 09:04-0400 Body mass index (BMI) [Ratio] 36.15 kg/m2 Radha Hughes M[employer] CO[employer]ER Work Phone: [facility] 01-05-2021 09:04-0400 Body weight 104.7 kg Radha Hughes MOLD CO[employer]ER Work Phone: [facility] 01-05-2021 09:04-0400 Diastolic blood pressure 77 mm[Hg] Radha Hughes M[employer]ER Work Phone: [facility] 01-05-2021 09:04-0400 Heart rate 77 /min Radha Hughes M[employer]ER Work Phone: [facility] 01-05-2021 09:04-0400 Systolic blood pressure 130 mm[Hg] Radha Hughes M[employer]ER Work Phone: [facility] 01-05-2021 08:20-0400 Body height 170.2 cm Vivien Foreman MD Work Phone: [facility] 01-05-2021 08:20-0400 Body mass index (BMI) [Ratio] 36.15 kg/m2 Vivien Foreman MD Work Phone: [facility] 01-05-2021 08:20-0400 Body temperature 97.81 [degF] Vivien Foreman MD Work Phone: [facility] 01-05-2021 08:20-0400 Body weight 104.69 kg Vivien Foreman MD Work Phone: [facility] 01-05-2021 08:20-0400 Diastolic blood pressure 77 mm[Hg] Vivien Foreman MD Work Phone: [facility] 01-05-2021 08:20-0400 Heart rate 77 /min Vivien Foreman MD Work Phone: [facility] 01-05-2021 08:20-0400 Respiratory rate 16 /min Vivien Foreman MD Work Phone: [facility] 01-05-2021 08:20-0400 SaO2% (BldA) [Mass fraction] 95 % Vivien Foreman MD Work Phone: [facility] 01-05-2021 08:20-0400 Systolic blood pressure 130 mm[Hg] Vivien Foreman MD Work Phone: [facility] 12-16-2020 08:32-0400 Diastolic blood pressure 79 mm[Hg] Vivien Foreman MD Work Phone: [facility] 12-16-2020 08:32-0400 Systolic blood pressure 146 mm[Hg] Vivien Foreman MD Work Phone: [facility] 12-16-2020 08:27-0400 Body height 170.2 cm Vivien Foreman MD Work Phone: [facility] 12-16-2020 08:27-0400 Body mass index (BMI) [Ratio] 36.12 kg/m2 Vivien Foreman MD Work Phone: [facility] 12-16-2020 08:27-0400 Body temperature 97.39 [degF] Vivien Foreman MD Work Phone: [facility] 12-16-2020 08:27-0400 Body weight 104.6 kg Vivien Foreman MD Work Phone: [facility] 12-16-2020 08:27-0400 Heart rate 79 /min Vivien Foreman MD Work Phone: [facility] 12-16-2020 08:27-0400 Respiratory rate 18 /min Vivien Foreman MD Work Phone: [facility] 12-16-2020 08:27-0400 SaO2% (BldA) [Mass fraction] 94 % Vivien Foreman MD Work Phone: [facility] 05-12-2020 09:20-0500 BMI (Body Mass Index) 33.39 kg/m2 Radha [facility] 05-12-2020 09:20-0500 Body weight 96.71 kg Radha [facility] 05-12-2020 09:20-0500 BP Diastolic 69 mm[Hg] Radha [facility] 05-12-2020 09:20-0500 BP Systolic 131 mm[Hg] Radha [facility] 05-12-2020 09:20-0500 Height 170.2 cm Radha [facility] 05-12-2020 09:20-0500 Pulse (Heart Rate) 83 /min Radha [facility] 12-31-2019 14:32-0400 BMI (Body Mass Index) 34.93 kg/m2 Radha [facility] 12-31-2019 14:32-0400 Body weight 101.15 kg Radha [facility] 12-31-2019 14:32-0400 BP Diastolic 72 mm[Hg] Radha [facility] 12-31-2019 14:32-0400 BP Systolic 161 mm[Hg] [facility] 12-31-2019 14:32-0400 Height 170.2 cm Radha [facility] 12-31-2019 14:32-0400 Pulse (Heart Rate) 86 /min Radha [facility] 09-20-2019 08:49-0400 BMI (Body Mass Index) 35.24 kg/m2 Amanda Johnson [facility] 09-20-2019 08:49-0400 Body weight 102.06 kg Amanda Johnson [facility] 09-20-2019 08:49-0400 Height 170.2 cm Amanda Johnson [facility] 07-26-2019 09:30-0500 BMI (Body Mass Index) 33.83 kg/m2 Preston Healy [facility] 07-26-2019 09:30-0500 Body weight 97.98 kg Preston Healy [facility] 07-26-2019 09:30-0500 BP Diastolic 63 mm[Hg] Preston Healy [facility] 07-26-2019 09:30-0500 BP Systolic 111 mm[Hg] Preston Healy [facility] 07-26-2019 09:30-0500 Pulse (Heart Rate) 69 /min Preston Healy [facility] 07-26-2019 09:30-0500 Pulse Oximetry 96 % Preston Healy [facility] 03-01-2019 08:28-0400 BMI (Body Mass Index) 33.05 kg/m2 Radha [facility] 03-01-2019 08:28-0400 Body weight 95.71 kg Radha [facility] 03-01-2019 08:28-0400 BP Diastolic 76 mm[Hg] Radha [facility] 03-01-2019 08:28-0400 BP Systolic 129 mm[Hg] Radha Hughes [facility] 03-01-2019 08:28-0400 Height 170.2 cm Radha [facility] 03-01-2019 08:28-0400 Pulse (Heart Rate) 59 /min [facility] 12-26-2018 16:00-0400 Body Temperature 97.9 [degF] [facility] 12-26-2018 15:33-0400 BP Diastolic 74 mm[Hg] [facility] 12-26-2018 15:33-0400 BP Systolic 137 mm[Hg] [facility] 12-26-2018 15:33-0400 Pulse (Heart Rate) 59 /min [facility] 12-26-2018 15:33-0400 Pulse Oximetry 98 % [facility] 12-26-2018 15:33-0400 Respiratory Rate 16 /min [facility] 12-26-2018 11:24-0400 BMI (Body Mass Index) 31.64 kg/m2 [facility] 12-26-2018 11:24-0400 Height 170.[address] [facility] 12-26-2018 11:24-04[address] [facility] 12-15-2018 09:56-0400 BMI (Body Mass Index) 32.42 kg/m2 [facility] 12-15-2018 09:56-0400 Height 170.[address] [facility] 12-15-2018 09:56-04[address] [facility] 12-12-2018 11:17-0400 BP Diastolic 77 mm[Hg] Preston Healy [facility] 12-12-2018 11:17-0400 BP Systolic 175 mm[Hg] Preston Healy [facility] 12-12-2018 11:17-0400 Height 170.2 cm Preston Healy [facility] 12-12-2018 11:17-0400 Pulse (Heart Rate) 60 /min Preston Hobbsjose [facility] 12-01-2018 07:46-0400 BMI (Body Mass Index) 32.51 kg/m2 Preston Hobbsjose [facility] 12-01-2018 07:46-0400 Body weight 94.17 kg Preston Hobbsjose [facility] 12-01-2018 07:46-0400 BP Diastolic 82 mm[Hg] Preston Hobbsjose [facility] 12-01-2018 07:46-0400 BP Systolic 162 mm[Hg] Preston Hobbsjose [facility] 12-01-2018 07:46-0400 Height 170.2 cm Preston [facility] 12-01-2018 07:46-0400 Pulse (Heart Rate) 60 /min Preston [facility] 12-01-2018 07:46-0400 Pulse Oximetry 95 % Preston [facility] 10-30-2018 11:31-0400 BMI (Body Mass Index) 31.75 kg/m2 [facility] 10-30-2018 11:31-0400 BP Diastolic 79 mm[Hg] [facility] 10-30-2018 11:31-0400 BP Systolic 150 mm[Hg] [facility] 10-30-2018 11:31-0400 Height 170.2 cm [facility] 10-30-2018 11:31-0400 Pulse (Heart Rate) 66 /min [facility] 10-30-2018 11:31-0400 Weight 91.94 kg [facility] 06-29-2018 10:44-0500 BMI (Body Mass Index) 32.31 kg/m2 Radha [facility] 06-29-2018 10:44-0500 BP Diastolic 77 mm[Hg] Radha [facility] 06-29-2018 10:44-0500 BP Systolic 134 mm[Hg] Radha [facility] 06-29-2018 10:44-0500 Height 170.2 cm Radha [facility] 06-29-2018 10:44-0500 Pulse (Heart Rate) 64 /min Radha [facility] 06-29-2018 10:44-0500 Weight 93.58 kg Radha [facility] 11-07-2017 12:40-0400 BMI (Body Mass Index) 38.22 kg/m2 Radha Hughes [facility] 11-07-2017 12:40-0400 BP Diastolic 74 mm[Hg] Radha Hughes [facility] 11-07-2017 12:40-0400 BP Systolic 118 mm[Hg] Radha Hughes [facility] 11-07-2017 12:40-0400 Height 170.2 cm Radha [facility] 11-07-2017 12:40-0400 Pulse (Heart Rate) 72 /min Radha Hughes [facility] 11-07-2017 12:40-0400 Weight 110.68 kg Radha [facility] 11-04-2017 07:30-0400 BMI (Body Mass Index) 38.69 kg/m2 [facility] 11-04-2017 07:30-0400 BP Diastolic 76 mm[Hg] Preston Hobbsjose [facility] 11-04-2017 07:30-0400 BP Systolic 150 mm[Hg] Preston Hobbsjose [facility] 11-04-2017 07:30-0400 Height 170.2 cm Preston [facility] 11-04-2017 07:30-0400 Pulse (Heart Rate) 69 /min Preston Hobbsjose [facility] 11-04-2017 07:30-0400 Pulse Oximetry 97 % Preston Healy [facility] 11-04-2017 07:30-0400 Weight 112.04 kg Preston Healy [facility] 05-09-2017 13:26-0400 BMI (Body Mass Index) 40.41 kg/m2 Preston Healy [facility] Work Phone: 05-09-2017 13:26-0400 BP Diastolic 85 mm[Hg] Preston Healy [facility] Work Phone: 05-09-2017 13:26-0400 BP Systolic 132 mm[Hg] Preston Healy [facility] Work Phone: 05-09-2017 13:26-0400 Height 170.2 cm Preston Healy [facility] Work Phone: 05-09-2017 13:26-0400 Pulse (Heart Rate) 77 /min Preston Healy [facility] Work Phone: 05-09-2017 13:26-0400 Pulse Oximetry 94 % Preston Healy [facility] Work Phone: 05-09-2017 13:26-0400 Weight 117.03 kg Preston Healy [facility] Work Phone: 02-09-2017 13:41-0400 BMI (Body Mass Index) 37.59 kg/m2 Estephania Yeh [facility] Work Phone: 02-09-2017 13:41-0400 BP Diastolic 74 mm[Hg] Estephania Yeh [facility] Work Phone: 02-09-2017 13:41-0400 BP Systolic 112 mm[Hg] Estephania Yeh [facility] Work Phone: 02-09-2017 13:41-0400 Height 170.2 cm Estephania Yeh [facility] Work Phone: 02-09-2017 13:41-0400 Weight 108.86 kg Estephania Yeh [facility] Work Phone: Encounters Encounter Date Encounter Type Care Provider Facility Start: 02-21-2025 End: 02-21-2025 Documentation procedure Darrell Norman CNP Work Phone: [facility] Procedural Care Unit Start: 02-18-2025 End: 02-18-2025 Documentation procedure Poala Rangel LPN [facility] Start: 02-18-2025 Non-patient / Non-visit Kali Ferrer nd DO -[facility] Start: 02-18-2025 End: 02-18-2025 Admission to same day surgery center Kali Gar DO -Endoscopy Work Phone: Start: 02-18-2025 End: 02-18-[address] Gaetano Menendez MD Work Phone: -Endoscopy Start: 02-15-2025 End: 02-15-2025 Documentation procedure Darrell Norman M[employer]ER Work Phone: [facility] Procedural Care Unit Start: 02-09-2025 Evaluation and manag ement of inpatient Dr. Gaetano Menendez MD -Transitional Care Unit Start: 02-04-2025 End: 02-04-2025 Orders Only Niharika Delarosa MOLD [employer]ER Work Phone: [facility] Comment on above: Echocardiogram abnor mal (Primary Dx) Start: 02-04-2025 End: 02-04-2025 Evaluation and management of inpatient OREN URBAN [facility] Start: 01-30-2025 End: 01-30-2025 Orders Only Luis A Gayle M[employer]ER Work Phone: [facility] Comment on above: Sepsis, due to unspe cified organism, unspecified whether acute organ dysfunction present (HCC) (Primary Dx) Start: 01-28-2025 End: 02-09-2025 Evaluation and management of inpatient Nevin Matthew MD Work Phone: [facility] Intermediate Care Unit Start: 01-28-2025 End: 01-28-2025 Office outpatient new 30 minutes Bradley Moore MD Work Phone: [facility] Comment on above: Left wrist pain (Sydni ernesto Dx) Start: 01-28-2025 End: 01-28-20[facility] Start: 01-27-2025 End: 01-27-2025 Emergency department patient visit VIVIENRAFA HERRERAHAM [facility] Start: 01-26-2025 End: 01-26-2025 Emergency department patient visit VIVIEN AMES [facility] Start: 01-26-2025 End: 01-26-2025 Emergency department patient visit VIVIEN AMES [facility] Start: 01-22-2025 ambulatory VIVIEN HERMAN [facility] Ambulatory Start: 12-14-2024 End: 12-14-2024 Refill Vivien Foreman MD Work Phone: [facility] Comment on above: Mild major depressio n; Essential hypertension; Hyperlipidemia, unspecified hyperlipidemia type Start: 12-07-2024 ambulatory SHARON ARREOLA [facility] Ambulatory Start: 11-21-2024 End: 11-21-2024 Patient encounter procedure Hola Arroyo DPOlegario Work Phone: [facility] Comment on above: Onychomycosis (Prima ry Dx); Peripheral vascular disease, unspecified Start: 11-21-2024 End: 11-21-2024 ambulatory HOLA ARROYO JR. 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, with long-term current use of insulin, macular edema presence unspecified, unspecified retinopathy severity (HCC) (Primary Dx); Hypercholesterolemia; Primary hypertension Start: 11-12-2024 End: 11-12-2024 [facility] Start: 11-09-2024 End: 11-09-2024 Orders Only Radha Hughes CNP Work Phone: [facility] Lila Comment on above: 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, with long-term current use of insulin, macular edema presence unspecified, unspecified retinopathy severity (HCC) (Primary Dx); Hypercholesterolemia Start: 11-07-2024 End: 11-07-2024 Office outpatient new 30 minutes Liliya Fine M[employer]ER Work Phone: [facility] Comment on above: Ganglion cyst Start: 11-07-2024 End: 11-11-2024 ambulatory [facility] Start: 10-30-2024 End: 10-30-2024 Office outpatient visit 15 minutes Liliya Fine [employer]ER Work Phone: [facility] Comment on above: Ganglion cyst (Prima ry Dx) Start: 10-30-2024 End: 11-03-2024 ambulatory VIVIEN AMES [facility] Ambulatory Start: 10-24-2024 End: 10-24-2024 Refill Radha Lantigua Saul LOPEZ Work Phone: [facility] Cecilia Start: 10-19-2024 End: 10-19-2024 Office outpatient visit 25 minutes Preston Healy MD Work Phone: [facility] Comment on above: PAD (peripheral conor ry disease) (HCC) (Primary Dx); Essential hypertension; Primary hypertension; Persistent atrial fibrillation (HCC); S/P CABG (coronary artery bypass graft); S/P AVR Start: 10-19-2024 End: 10-19-2024 [facility] Start: 09-07-2024 End: 09-07-2024 Refill Preston Healy MD Work Phone: [facility] Comment on above: Medication Refill Essential hypertensi on; Hyperlipidemia, unspecified hyperlipidemia type Start: 08-31-2024 End: 08-31-2024 Refill Preston Healy MD Work Phone: [facility] Comment on above: Medication Refill Start: 08-03-2024 End: 08-03-2024 Refill Preston Healy MD Work Phone: [facility] Comment on above: Medication Refill Essential hypertensi on; Hyperlipidemia, unspecified hyperlipidemia type Start: 06-23-2024 End: 07-08-2024 Refill Vee Mtz PA-C Work Phone: [facility] Comment on above: Medication Refill Start: 06-11-2024 ambulatory VIVIEN HERMAN [facility] Ambulatory Start: 06-06-2024 End: 06-06-2024 Office outpatient visit 25 minutes Vivien Foreman MD Work Phone: [facility] Comment on above: PAD (peripheral conor ry disease) (HCC) (Primary Dx); Primary hypertension Start: 06-06-2024 End: 06-06-2024 ambulatory VIVIEN FOREMAN [facility] Ambulatory Start: 05-23-2024 End: 05-23-2024 Patient encounter procedure Hola Arroyo DPM Work Phone: [facility] Comment on above: Onychomycosis (Prima ry Dx); Peripheral vascular disease, unspecified (HCC) Start: 05-23-2024 End: 05-23-2024 ambulatory HOLA ARROYO JR. 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) (Primary Dx); Type 2 diabetes mellitus with retinopathy of both eyes, with long-term current use of insulin, macular edema presence unspecified, unspecified retinopathy severity (HCC) Start: 05-18-2024 End: 05-18-2024 ambulatory RADHA HUGHES [facility] Start: 05-09-2024 End: 05-09-2024 Refill Preston Heayl MD Work Phone: [facility] Comment on above: Medication Refill Start: 04-26-2024 End: 04-26-2024 ambulatory JessicaLaquita MAL FLY III [facility] Ambulatory Start: 03-16-2024 End: 03-16-2024 Refill Vivien Foreman MD Work Phone: [facility] Comment on above: Essential hypertensi on Hyperlipidemia, unsp ecified hyperlipidemia type Start: 02-22-2024 End: 02-22-2024 Patient encounter procedure Hola Arroyo DPM Work Phone: [facility] Comment on above: Onychomycosis (Prima ry Dx); Peripheral vascular disease, unspecified (HCC) Start: 02-22-2024 End: 02-22-2024 ambulatory HOLA ARROYO JR. 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; Obesity (BMI 30-39.9) Start: 01-24-2024 End: 01-24-2024 ambulatory Vivien Foreman MD Work Phone: [facility] Comment on above: At high risk for fal ls (Primary Dx) Start: 01-19-2024 End: 01-19-2024 Treatment Vivien Foreman MD Work Phone: [facility] Comment on above: Balance disorder (Pr imary Dx) Start: 01-17-2024 End: 01-17-2024 ambulatory Vivien Foreman MD Work Phone: [facility] Comment on above: At high risk for fal ls (Primary Dx) Start: 01-10-2024 End: 01-10-2024 ambulatory Vivien Foreman MD Work Phone: [facility] Comment on above: At high risk for fal ls (Primary Dx) Start: 01-05-2024 End: 01-05-2024 ambulatory Vivien Foreman MD Work Phone: [facility] Comment on above: At high risk for fal ls (Primary Dx) Start: 01-03-2024 End: 01-03-2024 ambulatory Vivien Foreman MD Work Phone: [facility] Comment on above: At high risk for fal ls (Primary Dx) Start: 12-29-2023 End: 12-29-2023 ambulatory Vivien Foreman MD Work Phone: [facility] Comment on above: At high risk for fal ls (Primary Dx) Start: 12-27-2023 End: 12-27-2023 ambulatory [facility] Fore[facility] MD [facility] Phone[facility] Comment on above: At high risk for fal ls (Primary Dx) Start: 12-19-2023 End: 12-19-2023 ambulatory Viv[facility] Foreman MD [facility] Phone[facility] Comment on above: At high risk for fal ls Start: 12-09-2023 End: 12-09-2023 Office outpatient visit 25 minutes Radha Hughes CNP Work Phone: [facility] [place] Comment on above: 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, with long-term current use of insulin, macular edema presence unspecified, unspecified retinopathy severity (HCC) (Primary Dx) Start: 11-29-2023 End: 11-29-2023 Patient encounter procedure Vivien Foreman MD Work Phone: [facility] Comment on above: [...] loss of consciousness, sequela (HCC); Atherosclerosis of [place] arteries of extremities with intermittent claudication, bilateral [...] encounter procedure Hola Arroyo DPM Work Phone: [facility] Comment on above: Onychomycosis (Prima ry Dx); Peripheral vascular disease, unspecified (HCC) Start: 11-11-2023 End: 11-11-2023 Office outpatient visit 25 minutes Preston Healy MD Work Phone: [facility] Comment on above: Persistent atrial fi brillation (HCC) (Primary Dx); Essential hypertension; PAD (peripheral artery disease) (HCC); S/P CABG (coronary artery bypass graft); S/P aortic valve replacement Start: 10-27-2023 End: 10-27-2023 Office outpatient visit 25 minutes Sanju Bill DO Work Phone: [facility] Comment on above: 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, bilateral legs (HCC) (Primary Dx); PAD (peripheral artery disease) (HCC); Abrasion, right foot, subsequent encounter; Poorly controlled diabetes mellitus (HCC); Persistent atrial fibrillation (HCC); FPC current use of anticoagulant; Obesity (BMI 30-39.9) Start: 10-20-2023 ambulatory Bess Villanueva [facility] Comment on above: Diabetes Mgt [facility] Start: 08-25-2023 Refill Radha Hughes CNP Work Phone: [facility] Comment on above: 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, with long-term current use of insulin, macular edema presence unspecified, unspecified retinopathy severity (HCC) (Primary Dx) Start: 08-08-2023 End: 08-08-2023 Orders Only Radha Hughes CNP Work Phone: [facility] Comment on above: Diabetes Mgt [facility] Start: 08-06-2023 Refill Preston Healy MD Work Phone: [facility] Comment on above: Medication Refill Essential hypertensi on Start: 07-28-2023 End: 07-28-2023 Office outpatient visit 25 minutes JessicaLaquita Bill DO Work Phone: [facility] Comment on above: 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, bilateral legs (HCC) (Primary Dx); PAD (peripheral artery disease) (HCC); Poorly controlled diabetes mellitus (HCC); Type 2 diabetes mellitus with other circulatory complication, with long-term current use of insulin (HCC); Persistent atrial fibrillation (HCC); FPC current use of anticoagulant; Obesity (BMI 30-39.9); Aneurysm of ascending aorta without rupture (HCC) Start: 06-30-2023 Orders Only Shaila Matos RN [facility] Comment on above: PAD (peripheral conor ry disease) (HCC) (Primary Dx); Essential hypertension Start: 06-30-2023 End: 06-30-2023 Office outpatient visit 25 minutes Sanju Bill DO Work Phone: [facility] Comment on above: 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, bilateral legs (HCC) (Primary Dx); PAD (peripheral artery disease) (HCC); Type 2 diabetes mellitus with other circulatory complication, with long-term current use of insulin (HCC); FPC current use of anticoagulant; Obesity (BMI 30-39.9) Start: 06-24-2023 Refill Vivien Foreman MD Work Phone: [facility] Comment on above: Mild major depressio n (HCC) Start: 06-06-2023 End: 06-06-2023 Office outpatient visit 25 minutes Radha Hughes CNP Work Phone: [facility] [place] Comment on above: 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, with long-term current use of insulin, macular edema presence unspecified, unspecified retinopathy severity (HCC) (Primary Dx); Primary hypertension Start: 05-13-2023 End: 05-13-2023 Patient encounter procedure Hola Arroyo DPM Work Phone: [facility] Comment on above: Onychomycosis (Prima ry Dx); Peripheral vascular disease, unspecified (HCC) Start: 03-04-2023 End: 03-04-2023 Office outpatient visit 25 minutes Preston Healy MD Work Phone: [facility] Comment on above: Persistent atrial fi brillation (HCC) (Primary Dx); S/P CABG (coronary artery bypass graft); S/P aortic valve replacement Start: 02-09-2023 Refill Radha Hughes CNP Work Phone: [facility] [place] Start: 01-31-2023 Refill Sanju Bill DO Work Phone: [facility] Comment on above: Medication Refill Start: 01-21-2023 End: 01-21-2023 Office outpatient visit 25 minutes Vivien Foreman MD Work Phone: [facility] Comment on above: Diarrhea, unspecifie d type (Primary Dx); Essential hypertension; Hyperlipidemia, unspecified hyperlipidemia type; Persistent atrial fibrillation (HCC); Atherosclerosis of [place] arteries of extremities with intermittent claudication, bilateral legs (HCC) Start: 01-07-2023 End: 01-07-2023 Patient encounter procedure Hola Cruz SEYMOURM Work Phone: [facility] Comment on above: Onychomycosis (Prima ry Dx); Peripheral vascular disease, unspecified (HCC) Start: 12-10-2022 Refill Vivien Foreman MD Work Phone: [facility] Comment on above: Essential hypertensi on; Hyperlipidemia, unspecified hyperlipidemia type Medication Refill Start: 12-09-2022 End: 12-09-2022 Office outpatient visit 15 minutes Sanju Bill DO Work Phone: [facility] Comment on above: 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, bilateral legs (HCC) (Primary Dx); PAD (peripheral artery disease) (HCC); Type 2 diabetes mellitus with other circulatory complication, with long-term current use of insulin (HCC); Obesity (BMI 30-39.9); 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 Start: 10-28-2022 Refill Sanju Bill DO Work Phone: [facility] Comment on above: Medication Refill Start: 08-27-2022 Refill Preston Healy MD Work Phone: [facility] Comment on above: Medication Refill Start: 07-23-2022 End: 07-23-2022 Office outpatient visit 25 minutes Vivien Foreman MD Work Phone: [facility] Comment on above: [...] PAD (peripheral artery disease) (HCC); Atherosclerosis of [place] arteries of extremities with intermittent claudication, bilateral legs (HCC) Start: 07-09-2022 End: 07-09-2022 Patient encounter procedure Hola Arroyo DPM Work Phone: [facility] Comment on above: Onychomycosis (Prima ry Dx); Peripheral vascular disease, unspecified (HCC); Diabetic polyneuropathy 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) Start: 06-25-2022 Refill Yun Darnell RN [facility] Comment on above: Medication Refill Start: 06-14-2022 End: 06-14-2022 Patient encounter procedure Vivien Foreman MD Work Phone: [facility] Comment on above: At low risk for fall (Primary Dx); Mild major depression (HCC); Persistent atrial fibrillation (HCC); Medicare annual wellness visit, subsequent; Need for COVID-19 vaccine; Advanced directives, counseling/discussion; PAD (peripheral artery disease) (HCC) Start: 05-14-2022 End: 05-14-2022 Office outpatient visit 25 minutes Preston Healy MD Work Phone: [facility] Comment on above: Persistent atrial fi brillation (HCC); S/P CABG (coronary artery bypass graft); S/P aortic valve replacement Start: 04-07-2022 End: 04-07-2022 Office outpatient visit 15 minutes Hola Arroyo DPM Work Phone: [facility] Comment on above: Diabetic polyneuropa thy 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) (Primary Dx); Onychomycosis; Peripheral vascular disease, unspecified (HCC) Start: 04-03-2022 Refill Preston Healy MD Work Phone: [facility] Comment on above: Medication Refill Start: 03-20-2022 Refill Preston Healy MD Work Phone: [facility] Comment on above: Medication Refill Start: 03-17-2022 End: 03-17-2022 Office outpatient new 45 minutes Osbaldo Jim MD Work Phone: [facility] Comment on above: 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, bilateral legs (HCC) (Primary Dx); PAD (peripheral artery disease) (HCC); Persistent atrial fibrillation (HCC); Morbid obesity (HCC); Type 2 diabetes mellitus with other circulatory complication, with long-term current use of insulin (HCC) Start: 03-04-2022 Refill Yanna bernardo CNP Work Phone: [facility] Comment on above: Medication Refill Start: 02-22-2022 End: 02-22-2022 Office outpatient visit 25 minutes Vivien Foreman MD Work Phone: [facility] Comment on above: Coronary artery dise ase involving [place] heart without angina pectoris, unspecified vessel or [...] 25 minutes Radha Hughes CNP Work Phone: [facility] [place] Comment on above: 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, with long-term current use of insulin, macular edema presence unspecified, unspecified retinopathy severity (HCC) (Primary Dx); Primary hypertension; Hypercholesterolemia Start: 01-14-2022 Orders Only Yun Darnell RN [facility] Comment on above: PAD (peripheral conor ry disease) (HCC) (Primary Dx); Claudication (HCC) PAD (peripheral conor ry disease) (HCC) (Primary Dx) Start: 01-12-2022 Refill Rdaha Hughes CNP Work Phone: [facility] [place] Start: 12-23-2021 End: 12-23-2021 Patient encounter procedure Hola Arroyo DPM Work Phone: [facility] Comment on above: Onychomycosis (Prima ry Dx); Peripheral vascular disease, unspecified (HCC) Start: 12-22-2021 Admission to [facility] Preston Healy MD Work Phone: [facility] Start: 12-22-2021 End: 12-22-2021 Documentation procedure Preston Healy MD Work Phone: [facility] Comment on above: Pre-operative cardio vascular examination (Primary Dx); Hx of aortic valve replacement Medication Refill Abnormal stress test (Primary Dx); Coronary artery disease, unspecified vessel or lesion type, unspecified whether angina present, unspecified whether [place] or transplanted heart Start: 12-22-2021 End: 12-22-2021 Patient encounter status Yun Darnell RN [facility] Start: 10-22-2021 Refill Radha Hughes CNP Work Phone: [facility] [place] Start: 10-12-2021 End: 10-12-2021 Office outpatient visit 25 minutes Radha Grzegorz Hughes CNP Work Phone: [facility] [place] Comment on above: 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, with long-term current use of insulin, macular edema presence unspecified, unspecified retinopathy severity (HCC) (Primary Dx); Primary hypertension Start: 06-19-2021 End: 06-19-2021 Phys/qhp telephone evaluation 21-30 min Preston Healy MD Work Phone: [facility] Comment on above: Persistent atrial fi brillation (HCC) (Primary Dx); Coronary artery disease involving [place] heart without angina pectoris, unspecified vessel or lesion type Start: 06-15-2021 End: 06-15-2021 Office outpatient visit 25 minutes Radha Hughes CNP Work Phone: [facility] [place] Comment on above: 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, with long-term current use of insulin, macular edema presence unspecified, unspecified retinopathy severity (HCC) (Primary Dx); Primary hypertension; Hypercholesterolemia Start: 06-12-2021 End: 06-12-2021 Office outpatient visit 25 minutes Vivien Foreman MD Work Phone: [facility] Comment on above: At low risk for fall (Primary Dx); Ventricular fibrillation (HCC); Primary hypertension; Mild major depression (HCC); Anxiety and depression; Encounter for immunization Start: 04-27-2021 Refill Yun Darnell RN [facility] Comment on above: Medication Refill Start: 03-25-2021 End: 03-25-2021 Patient encounter procedure Hoal Arroyo DPM Work Phone: [facility] Comment on above: Onychomycosis (Prima ry Dx); Peripheral vascular disease, unspecified (HCC) Start: 03-03-2021 ambulatory Cindy huber [facility] Start: 03-03-2021 Coordination of care plan Kamryn Dyer [facility] Comment on above: Care Coordination-BH P Start: 03-02-2021 End: 03-02-2021 Patient encounter procedure Vivien Foreman MD Work Phone: [facility] Comment on above: Anxiety and depressi on (Primary Dx); Balance disorder; Encounter for immunization Start: 03-02-2021 End: 03-02-2021 Office outpatient visit 15 minutes Radha Hughes CNP Work Phone: [facility] [place] Comment on above: 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, with long-term current use of insulin, macular edema presence unspecified, unspecified retinopathy severity (HCC) (Primary Dx); Essential hypertension Start: 02-27-2021 End: 02-27-2021 Office outpatient visit 25 minutes Preston Healy MD Work Phone: [facility] Comment on above: Persistent atrial fi brillation (HCC) Start: 01-26-2021 End: 01-26-2021 Refill Dayna Johnson RN [facility] Comment on above: Medication Refill Start: 01-13-2021 End: 01-13-2021 Subsequent hospital visit by physician Preston Healy MD Work Phone: [facility] Comment on above: Arrived Start: 01-09-2021 End: 01-09-2021 Office outpatient visit 40 minutes Preston Healy MD Work Phone: [facility] Comment on above: Essential hypertensi on; Hyperlipidemia, unspecified hyperlipidemia type; Persistent atrial fibrillation (HCC); S/P CABG (coronary artery bypass graft); S/P aortic valve replacement Start: 01-05-2021 End: 01-05-2021 Office outpatient visit 25 minutes Vivien Foreman MD Work Phone: [facility] Comment on above: [...] 12-31-2020 Refill Preston Healy MD Work Phone: [facility] Comment on above: Medication Refill Start: 12-27-2020 End: 12-27-2020 Refill Preston Healy MD Work Phone: [facility] Comment on above: Medication Refill Start: 12-17-2020 End: 12-17-2020 Orders Only Radha Hughes CNP Work Phone: [facility] Comment on above: 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 and macular edema, with long-term current use of insulin, unspecified laterality, unspecified retinopathy severity (HCC) (Primary Dx); Pure hypercholesterolemia Start: 12-16-2020 End: 12-16-2020 Office outpatient new 60 minutes Vivien Foreman MD Work Phone: [facility] Comment on above: [facility]counter to [facility] (Primary Dx); Malignant neoplasm of buccal sulcus (HCC); Type 2 diabetes mellitus with retinopathy of both eyes, with long-term current use of insulin, macular edema presence unspecified, unspecified retinopathy severity (HCC); Postoperative atrial fibrillation (HCC); Morbid obesity (HCC); Essential hypertension; 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, sequela (HCC); Hypercholesterolemia; S/P aortic valve replacement; Coronary artery disease involving [place] heart without angina pectoris, unspecified vessel or lesion type; Skin mole Start: 10-15-2020 End: 10-15-2020 Refill Dayna Johnson [facility] Comment on above: Medication Refill Start: 09-08-2020 End: 09-08-2020 Refill Tianna Conn [facility] Comment on above: Medication Refill Start: 08-01-2020 End: 08-01-2020 Orders Only Vipul Bueno Work Phone: [facility] Start: 07-26-2020 End: 07-26-2020 Refill Preston Healy Work Phone: [facility] Comment on above: Medication Refill Start: 05-12-2020 End: 05-12-2020 Office outpatient visit 25 minutes Radha Hughes Work Phone: [facility] Comment on above: 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, with long-term current use of insulin, macular edema presence unspecified, unspecified retinopathy severity (HCC) (Primary Dx); Essential hypertension; Hypercholesterolemia Start: 12-31-2019 End: 12-31-2019 Office outpatient visit 25 minutes Radha Hughes Work Phone: [facility] Comment on above: 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, with long-term current use of insulin, macular edema presence unspecified, unspecified retinopathy severity (HCC) (Primary Dx); Essential hypertension; Hypercholesterolemia Start: 10-11-2019 End: 10-11-2019 Patient encounter procedure Amanda Johnson Work Phone: [facility] Comment on above: DDD (degenerative di sc disease), lumbar (Primary Dx) Start: 10-02-2019 End: 10-02-2019 Patient encounter procedure Amanda Johnson Work Phone: [facility] Comment on above: DDD (degenerative di sc disease), lumbar Start: 09-20-2019 End: 09-20-2019 Office outpatient new 30 minutes Amanda Johnson Work Phone: [facility] Comment on above: DDD (degenerative di sc disease), lumbar (Primary Dx) Start: 07-26-2019 End: 07-26-2019 Office outpatient visit 15 minutes Preston Healy Work Phone: [facility] Comment on above: Hyperlipidemia, unsp ecified hyperlipidemia type; S/P CABG (coronary artery bypass graft) Start: 03-01-2019 End: 03-01-2019 Office outpatient visit 25 minutes Radha Hughes Work Phone: [facility] Comment on above: 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, with long-term current use of insulin, macular edema presence unspecified, unspecified retinopathy severity (HCC) (Primary Dx); Essential hypertension; Hypercholesterolemia Start: 02-19-2019 Patient encounter procedure DIETER CARCAMO AnNINO Facility:[facility] Start: 01-29-2019 Refill Radha Hughes CNP Work Phone: [facility] Start: 01-03-2019 End: 01-03-2019 Follow-up encounter Jenaro Oquendo Work Phone: [facility] Comment on above: Surgery follow-up (P rimary Dx) Start: 12-26-2018 End: 12-26-2018 Patient encounter procedure [facility] Start: 12-26-2018 End: 12-26-2018 [facility] [place] Work Phone: [facility] Start: 12-21-2018 End: 12-25-2018 Patient encounter procedure [facility] Start: 12-21-2018 End: 12-21-2018 Patient encounter procedure Jenaro Oquendo Work Phone: [facility] Comment on above: Preoperative testing (Primary Dx); Type 2 diabetes mellitus with retinopathy of both eyes, with long-term current use of insulin, macular edema presence unspecified, unspecified retinopathy severity (HCC) Start: 12-15-2018 End: 12-15-2018 Documentation procedure Joe Viramontes [facility] Start: 12-15-2018 End: 12-19-2018 Patient encounter procedure [facility] Start: 12-15-2018 End: 12-15-2018 Office outpatient new 20 minutes Jenaro Oquendo Work Phone: [facility] [place] Comment on above: Wrist pain, chronic, right (Primary Dx); De Quervain's disease (radial styloid tenosynovitis) Start: 12-12-2018 End: 12-12-2018 Patient encounter procedure Preston Healy Work Phone: [facility] Comment on above: Arrived Coronary artery dise ase involving [place] heart without angina pectoris, unspecified vessel or lesion type; Chest pain, unspecified type Start: 12-08-2018 End: 12-08-2018 Patient encounter procedure Preston Healy Work Phone: [facility] Comment on above: Chest pain, unspecif ied type; S/P aortic valve replacement Start: 12-07-2018 End: 12-07-2018 Patient encounter procedure Preston Healy Work Phone: [facility] Comment on above: Chest pain, unspecif ied type Prominent abdominal aortic pulse Start: 12-01-2018 End: 12-01-2018 Office outpatient visit 25 minutes Preston Healy Work Phone: [facility] Comment on above: Coronary artery dise ase involving [place] heart without angina pectoris, unspecified vessel or lesion type (Primary Dx); Chest pain, unspecified type; Prominent abdominal aortic pulse; S/P aortic valve replacement; Essential hypertension; S/P CABG (coronary artery bypass graft) Start: 10-30-2018 End: 10-30-2018 Office outpatient visit 25 minutes Girish Gramajo Work Phone: [facility] Comment on above: 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, with long-term current use of insulin, macular edema presence unspecified, unspecified retinopathy severity (HCC) (Primary Dx); Coronary artery disease involving [place] heart without angina pectoris, unspecified vessel or lesion type; Essential hypertension; Hypercholesterolemia Start: 10-23-2018 Patient encounter procedure Facility:[id number] Start: 10-05-2018 Refill Preston Healy MD Work Phone: [facility] Comment on above: Medication Refill Start: 06-29-2018 End: 06-29-2018 Office outpatient visit 25 minutes Radha Hughes Work Phone: [facility] Comment on above: 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, with long-term current use of insulin, macular edema presence unspecified, unspecified retinopathy severity (HCC) (Primary Dx); Hypercholesterolemia Start: 06-20-2018 Patient encounter procedure Facility:[id number] Start: 05-31-2018 Patient encounter procedure Facility:[id number] Start: 03-07-2018 Patient encounter procedure Facility:[id number] Start: 02-20-2018 Patient encounter procedure DIETER CHRISTINA [facility] Start: 12-26-2017 End: 12-26-2017 Office outpatient visit 10 minutes Dillan Cooper Work Phone: [facility] Start: 11-28-2017 End: 11-28-2017 Office/outpatient visit, est, level 2 Dillan Cooper Work Phone: [facility] Start: 11-21-2017 Ambulatory Preston Healy [facility] ity:Janett Start: 11-21-2017 End: 11-21-2017 Ambulatory Preston Healy Work Phone: [facility] Start: 11-07-2017 End: 11-07-2017 Office/outpatient visit, est, level 4 Radha Hughes Work Phone: [facility] Start: 11-04-2017 End: 11-04-2017 Office/outpatient visit, est, level 3 Preston Healy Work Phone: [facility] Start: 05-09-2017 Office outpatient vi sit 15 minutes Preston Healy Work Phone: [facility] Start: 02-09-2017 Office/outpatient vi sit, est, level 4 Estephania Yeh Work Phone: [facility] Start: 11-03-2015 Refill Preston Healy MD Work Phone: [facility] Comment on [...] Work Phone: Start: 02-09-2025 Glucose measurement Generic [facility] Work Phone: Start: 02-09-2025 Complete blood count with white cell differential, manual Dominga Muñiz [employer] Work Phone: Start: 02-09-2025 Comprehensive metabolic panel Dominga Marks [employer] Work Phone: Start: 02-09-2025 Hepatic function panel Dominga fox [employer] Work Phone: Start: 02-08-2025 Glucose measurement Generic [facility] Work Phone: Start: 02-08-2025 Glucose measurement Generic [facility] Work Phone: Start: 02-08-2025 Glucose measurement Generic [facility] Work Phone: Start: 02-08-2025 Cyanocobalamin vitamin b-12 Kelly Burton MD Work Phone: Start: 02-08-2025 Glucose measurement Generic [facility] Work Phone: Start: 02-08-2025 Complete blood count with white cell differential, manual Dominga Muñiz [employer] Work Phone: Start: 02-08-2025 Comprehensive metabolic panel Dominga Marks [employer] Work Phone: Start: 02-08-2025 Hepatic function panel Dominga fox [employer] Work Phone: Start: 02-07-2025 Blood count complete automated [place] Nikki Matthew MD Work Phone: Start: 02-07-2025 [...] with white cell differential, manual Dominga Muñiz [employer] Work Phone: Start: 02-07-2025 Comprehensive metabolic panel Dominga Marks [employer] Work Phone: Start: 02-07-2025 Hepatic function panel Dominga fox [employer] Work Phone: Start: 02-07-2025 Red blood cell morphology Dominga crawford [employer] Work Phone: Start: 02-06-2025 Glucose measurement Generic [facility] Work Phone: Start: 02-06-2025 Glucose measurement Generic [facility] Work Phone: Start: 02-06-2025 Glucose measurement Generic [facility] Work Phone: Start: 02-06-2025 Potassium serum plasma/whole blood Kelly Burton MD Work Phone: Start: 02-06-2025 End: 02-06-2025 Glucose measurement Generic [facility] Work Phone: Start: 02-06-2025 Complete blood count with white cell differential, manual Dominga Muñiz [employer] Work Phone: Start: 02-06-2025 Comprehensive metabolic panel Dominga Marks [employer] Work Phone: Start: 02-06-2025 Hepatic function panel Dominga fox [employer] Work Phone: Start: 02-06-2025 Red blood cell morphology Dominga crawford [employer] Work Phone: Start: 02-05-2025 Glucose measurement Generic [facility] Work Phone: Start: 02-05-2025 Glucose measurement Generic [facility] Work Phone: Start: 02-05-2025 Glucose measurement Generic [facility] Work Phone: Start: 02-05-2025 Glucose measurement Generic [facility] Work Phone: Start: 02-05-2025 Complete blood count with white cell differential, manual Dominga Muñiz [employer] Work Phone: Start: 02-05-2025 Comprehensive metabolic panel Dominga Marks [employer] Work Phone: Start: 02-05-2025 Hepatic function panel Dominga fox [employer] Work Phone: Start: 02-05-2025 Red blood cell morphology Dominga crawford [employer] Work Phone: Start: 02-04-2025 Glucose measurement Generic [...] with white cell differential, manual Dominga Muñiz [employer] Work Phone: Start: 02-04-2025 Comprehensive metabolic panel Dominga Marks [employer] Work Phone: Start: 02-04-2025 Hepatic function panel Dominga Poeo dominique [employer] Work Phone: Start: 02-04-2025 Red blood cell morphology Dominga crawford [employer] Work Phone: Start: 02-03-2025 Glucose measurement Generic [facility] Work Phone: Start: 02-03-2025 Glucose measurement Generic [facility] Work Phone: Start: 02-03-2025 Glucose measurement Generic [facility] Work Phone: Start: 02-03-2025 Glucose measurement Generic [facility] Work Phone: Start: 02-03-2025 Complete blood count with white cell differential, manual Dominga Muñiz [employer] Work Phone: Start: 02-03-2025 Comprehensive metabolic panel Dominga Marks [employer] Work Phone: Start: 02-03-2025 Hepatic function panel Dominga Poeo dominique [employer] Work Phone: Start: 02-03-2025 Red blood cell morphology Dominga crawford [employer] Work Phone: Start: 02-03-2025 Glucose measurement Generic [...] with white cell differential, manual Dominga Muñiz [employer] Work Phone: Start: 02-02-2025 Comprehensive metabolic panel Dominga Marks [employer] Work Phone: Start: 02-02-2025 Hepatic function panel Dominga fox [employer] Work Phone: Start: 02-02-2025 Red blood cell morphology Dominga crawford [employer] Work Phone: Start: 02-01-2025 Glucose measurement Generic [...] 02-01-2025 Potassium serum plasma/whole blood Dominga Muñiz [employer] Work Phone: Start: 02-01-2025 Glucose measurement Generic [facility] Work Phone: Start: 02-01-2025 Complete blood count with white cell differential, manual Dominga Muñiz [employer] Work Phone: Start: 02-01-2025 Comprehensive metabolic panel Domigna Marks [employer] Work Phone: Start: 02-01-2025 Hepatic function panel Dominga fox [employer] Work Phone: Start: 01-31-2025 Glucose measurement Generic [facility] Work Phone: Start: 01-31-2025 Thromboplastin time partial plasma/whole blood Noemi Andrade MD Work Phone: Start: 01-31-2025 Glucose measurement Generic [facility] Work Phone: Start: 01-31-2025 Thromboplastin time partial plasma/whole blood Noemi Andrade MD Work Phone: Start: 01-31-2025 Glucose measurement Generic [facility] Work Phone: Start: 01-31-2025 Glucose measurement Generic [facility] Work Phone: Start: 01-31-2025 Complete blood count with white cell differential, manual Dominga Muñiz [employer] Work Phone: Start: 01-31-2025 Comprehensive metabolic panel Dominga Marks [employer] Work Phone: Start: 01-31-2025 Hepatic function panel Dominga fox [employer] Work Phone: Start: 01-30-2025 Electrocardiogram Generic [facility] Work Phone: Start: 01-30-2025 Glucose measurement Generic [facility] Work Phone: Start: 01-30-2025 Glucose measurement Generic [facility] Work Phone: Start: 01-30-2025 Us abdominal real time w/image limited Dominga Muñiz [employer] Work Phone: Start: 01-30-2025 Basic metabolic panel calcium total Dominga Muñiz [employer] Work Phone: Start: 01-30-2025 Urnls dip stick/tablet reagent auto microscopy Noemi Andrade MD Work Phone: Start: 01-30-2025 End: 01-30-2025 Culture bacterial blood aerobic w/id isolates Dominga Muñiz [employer] Work Phone: Start: 01-30-2025 Glucose measurement Generic [facility] Work Phone: Start: 01-30-2025 Cul bact xcpt urine blood/stool aerobic isol Dominga Muñiz [employer] Work Phone: Start: 01-30-2025 Gases blood ph direct nola xcpt pulse oximitry Generic [facility] Work Phone: Start: 01-30-2025 Assay of ammonia Dominga Muñiz [employer] Work Phone: Start: 01-30-2025 OBTAIN VENOUS BLOOD GASES AND PERFORM Dominga Muñiz [employer] Work Phone: Start: 01-30-2025 Glucose measurement Generic [facility] Work Phone: Start: 01-30-2025 Complete blood count with white cell differential, manual Dominga Muñiz [employer] Work Phone: Start: 01-30-2025 Comprehensive metabolic panel Dominga Marks [employer] Work Phone: Start: 01-30-2025 Hepatic function panel Dominga fox [employer] Work Phone: Start: 01-29-2025 Glucose measurement Generic [facility] Work Phone: Start: 01-29-2025 Basic metabolic panel calcium total Demetria Gomez MD Work Phone: Start: 01-29-2025 Glucose measurement Generic [facility] Work Phone: Start: 01-29-2025 Thromboplastin time partial plasma/whole blood Noemi Andrade MD Work Phone: Start: 01-29-2025 Culture bacterial quanttative colony count urine Dominga Muñiz [employer] Work Phone: Start: 01-29-2025 Us retroperitoneal real time w/image complete Dominga Muñiz [employer] Work Phone: Start: 01-29-2025 Glucose measurement Generic [facility] Work Phone: Start: 01-29-2025 Basic metabolic panel calcium total Nanci Andrade MD Work Phone: Start: 01-29-2025 Ct upper extremity w/o contrast material Kunal Norman MD Work Phone: Start: 01-29-2025 Glucose measurement Generic [facility] Work Phone: Start: 01-29-2025 Echo tthrc r-t 2d w/wom-mode compl spec&colr d Dominga Muñiz [employer] Work Phone: Start: 01-29-2025 Assay of lactate Nevin Matthew MD Work Phone: Start: 01-29-2025 End: 01-29-2025 Glucose measurement Generic [facility] Work Phone: Start: 01-29-2025 Gases blood ph direct nola xcpt pulse oximitry Generic [facility] Work Phone: Start: 01-29-2025 OBTAIN VENOUS BLOOD GASES AND PERFORM Dominga Muñiz [employer] Work Phone: Start: 01-29-2025 Assay of troponin quantitative [facility] [employer] Work Phone: Start: 01-29-2025 Ecg routine ecg w/least 12 lds trcg only w/o i&r [facility] Work Phone: Start: 01-29-2025 End: 01-29-2025 Glucose measurement Generic [facility] Work Phone: Start: 01-29-2025 Glucose measurement Generic [facility] Work Phone: Start: 01-29-2025 Iadna s aureus methicillin resist amp probe tq Dominga Poeour [employer] Work Phone: Start: 01-29-2025 Basic metabolic panel [...] Start: 01-29-2025 End: 01-29-2025 Glucose measurement Generic [facility] Work Phone: Start: 01-29-2025 Glucose measurement Generic [facility] Work Phone: Start: 01-28-2025 Gases blood [...] MD Work Phone: Start: 01-28-2025 Glucose measurement [facility] Start: 01-28-2025 VAZQUEZ TOP Nevin Matthew MD Work Phone: Start: 01-28-2025 LIGHT BLUE TOP Nevin Matthew MD Work Phone: Start: 01-28-2025 RAINBOW DRAW Nevin Matthew MD Work Phone: Start: 01-28-2025 Ecg routine ecg w/least 12 lds w/i&r Nevin Matthew MD Work Phone: Start: 01-28-2025 EMS RUN SHEET Generic Ems Provider Start: 11-12-2024 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, 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 carla Hughes [employer] Work Phone: Start: 05-18-2024 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, CGM carla Hughes [employer] Work Phone: Start: 03-04-2023 Ecg routine ecg [...] comp foot exam completed Radha Watso n [employer] Work Phone: Start: 12-02-2021 Ophthalmic examination and evaluation Yanna Minor [facility] Work Phone: Start: 10-12-2021 3 comp foot exam completed Radha Watso n [employer] Work Phone: Start: 06-15-2021 3 comp foot exam completed Radha Watso n [employer] Work Phone: Start: 03-02-2021 3 comp foot exam completed Radha Watso n [employer] Work Phone: Start: 01-09-2021 Ecg routine ecg w/least 12 lds w/i&r Preston Healy MD Work Phone: Start: 01-05-2021 3 comp foot exam completed Vivien Foreman MD Work Phone: Start: 12-22-2020 Ophthalmic examination and evaluation Vivien Foreman MD Work Phone: Start: 12-17-2020 Microalbumin [Mass/volume] in Urine by Test strip Preston Healy MD Work Phone: Start: 12-16-2020 Adult depression screening assessment Radha Hughes [facility] Work Phone: Start: 05-12-2020 3 comp foot exam completed Preston garcia Start: 12-31-2019 3 comp foot exam completed Radha Watso n Start: 03-01-2019 3 comp foot exam completed Preston Beltran an Start: 12-26-2018 Glucose [Mass/volume] in Blood Jenaro Bernie Oquendo Work Phone: Start: 12-26-2018 Glucose [Mass/volume] in Blood Jenaro Bernie Oquendo Work Phone: Start: 12-15-2018 Radex wrist complete minimum 3 views Jenaro Oquendo Work Phone: Start: 12-12-2018 Radionuclide myocardial [...] CABG (coronary artery bypass graft) Radha Hughes [employer] Work Phone: History of coronary artery bypass [...] Author Start: 02-09-2026 eGFR Diabetes eGFR Diabetes [facility] Start: 02-04-2026 eGFR Diabetes eGFR Diabetes [facility] Start: 11-12-2025 Diabetic foot examination Diabetic Foot Exam [facility] Start: 11-09-2025 eGFR Diabetes eGFR Diabetes [facility] Start: 11-09-2025 Urine screening for protein eGFR Diabetes [facility] Start: 09-01-2025 Depression Remission Assessment (PHQ9) Depression Remission Assessment (PHQ9) [facility] Start: 08-02-2025 eGFR Diabetes eGFR Diabetes [facility] Start: 07-01-2025 End: 07-01-2025 ambulatory [facility] Start: 07-01-2025 End: 07-01-2025 Patient encounter procedure 07/01/2025 2:00 PM EST Office Visit [facility] [address] [place] [address] Vivien Foreman MD [address] [address] [facility] Start: 05-18-2025 Diabetic foot examination Diabetic Foot Exam [facility] Start: 05-13-2025 End: 05-13-2025 ambulatory [facility] Start: 05-13-2025 End: 05-13-2025 Patient encounter procedure 05/13/2025 1:00 PM EST Office Visit [facility] [address] [place] [address] Radha Hughes, [employer] [address] [place] [address] [facility] Start: 05-11-2025 Urine screening for protein eGFR Diabetes [facility] Start: 04-30-2025 Hemoglobin A1c measurement A1C [facility] Start: 04-26-2025 End: 04-26-2025 ambulatory [facility] Start: 04-26-2025 End: 04-26-2025 Patient encounter procedure 04/26/2025 8:40 AM EDT Office Visit [facility] [address] [place] [phone] Preston Healy MD [address] [address] [facility] Start: 03-11-2025 Influenza vaccination [facility] Start: 03-01-2025 End: 03-01-2025 Follow-up encounter 03/01/2025 3:15 PM EDT Follow-Up [facility] [address] [id number] Dillan Cooper MD [address] [place] [address] [facility] Start: 02-28-2025 End: 02-28-2025 Patient encounter procedure 02/28/2025 3:40 PM EDT Office Visit [facility] [address] [place] [address] [place] [address] [place], [place] [id number] [facility] Start: 02-26-2025 End: 02-26-2025 ambulatory [facility] Start: 02-26-2025 End: 02-26-2025 Patient encounter procedure 02/26/2025 3:20 PM EDT Office Visit [facility] [address] [place] [address] Vivien Foreman MD [address] [address] [facility] Start: 02-20-2025 End: 02-20-2025 ambulatory [facility] Start: 02-20-2025 End: 02-20-2025 Patient encounter procedure 02/20/2025 10:30 AM EDT Office Visit [facility] [address] [place] [address] Hola Arroyo Jr., DPM [address] [address] [facility] Start: 02-19-2025 Patient discharge [facility] Start: 02-18-2025 Removal of device [facility] Start: 02-16-2025 [facility] Start: 02-14-2025 End: 02-14-2025 ambulatory [facility] Start: 02-14-2025 End: 02-14-2025 Patient encounter procedure 02/14/2025 9:30 AM EDT Office Visit [facility] [address] [place] [address] Sanju Bill III, DO [address] [place] [address] [facility] Start: 02-13-2025 [facility] Start: 02-12-2025 Speech therapy management [facility] Start: 02-12-2025 Administration of blood product [facility] Start: 02-12-2025 [facility] Start: 02-11-2025 Speech therapy assessment [facility] Start: 02-11-2025 Verification routine [facility] Start: 02-11-2025 Following clinical pathway protocol [facility] Start: 02-10-2025 Administration of blood product [facility] Start: 02-10-2025 Development of care plan [facility] Start: 02-10-2025 Developing a treatment plan [facility] Start: 02-10-2025 Wound care [facility] Start: 02-10-2025 Contact precautions [facility] Start: 02-09-2025 End: 02-10-2025 Patient referral to dietitian [facility] Start: 02-09-2025 Consultation for treatment [facility] Start: 02-09-2025 Consultation [facility] Start: 02-09-2025 Admission procedure [facility] Start: 02-09-2025 Introduction of urinary catheter [facility] Start: 02-09-2025 Measuring intake and output [facility] Start: 02-09-2025 Referral to occupational therapist [facility] Start: 02-09-2025 Referral to service [facility] Start: 02-09-2025 Vital signs measurements [facility] Start: 02-09-2025 [facility] Start: 02-09-2025 Hemoglobin A1c measurement A1C [facility] Start: 02-04-2025 End: 02-04-2025 Patient encounter procedure [facility] Start: 01-24-2025 End: 01-24-2025 Patient encounter procedure [facility] Start: 12-12-2024 Glaucoma screening Diabetic Eye Exam [facility] Start: 12-08-2024 Diabetic foot examination Diabetic Foot Exam [facility] Start: 12-01-2024 Urine screening for protein eGFR Diabetes [facility] Start: 11-30-2024 End: 11-30-2024 Patient encounter procedure 11/30/2024 10:00 AM EDT Office Visit [facility] [address] [place] [address] Vivien Foreman MD [address] [address] [facility] Start: 11-28-2024 Fall risk assessment Falls Risk Assessment [facility] Start: 11-28-2024 History and physical examination, annual for health maintenance Wellness Visit [facility] Start: 11-28-2024 Medicare Wellness Visit Medicare Wellness Visit [facility] Start: 11-21-2024 End: 11-21-2024 Patient encounter procedure 11/21/2024 11:15 AM EDT Office Visit [facility] [address] [place] [address] Hola Arroyo Jr., DPM [address] [place] [address] [facility] Start: 11-12-2024 End: 11-12-2024 Patient encounter procedure 11/12/2024 9:15 AM EDT Office Visit [facility] [address] [place] [address] Radha Hughes, [employer] [address] [place] [address] [facility] Start: 11-09-2024 End: 11-09-2025 Complete blood count with white cell differential, manual CBC and Differential Lab Routine Type 2 diabetes mellitus with retinopathy of both eyes, with long-term current use of insulin, macular edema presence unspecified, unspecified retinopathy severity (HCC) Expected: 11/09/2024, Expires: 11/09/2025 [facility] Comment on above: Expected: 11/09/2024, Expires: Start: 11-09-2024 End: 11-09-2025 Comprehensive metabolic 2000 panel - Serum or Plasma Comprehensive metabolic panel Lab Routine Type 2 diabetes mellitus with retinopathy of both eyes, with long-term current use of insulin, macular edema presence unspecified, unspecified retinopathy severity (HCC) Expected: 11/09/2024, Expires: 11/09/2025 [facility] Comment on above: Expected: 11/09/2024, Expires: Start: 11-09-2024 End: 11-09-2025 Hemoglobin A1c/Hemoglobin.total in Blood Hemoglobin A1c Lab Routine Type 2 diabetes mellitus with retinopathy of both eyes, with long-term current use of insulin, macular edema presence unspecified, unspecified retinopathy severity (HCC) Expected: 11/09/2024, Expires: 11/09/2025 [facility] Work Phone: Comment on above: Expected: 11/09/2024, Expires: Start: 11-09-2024 End: 11-09-2025 Lipid 1996 panel - Serum or Plasma Lipid panel Lab Routine Type 2 diabetes mellitus with retinopathy of both eyes, with long-term current use of insulin, macular edema presence unspecified, unspecified retinopathy severity (HCC) Hypercholesterolemia Expected: 11/09/2024, Expires: 11/09/2025 [facility] Comment on above: Expected: 11/09/2024, Expires: Start: 11-09-2024 End: 11-09-2025 Thyrotropin [Units/volume] in Serum or Plasma TSH Lab Routine Type 2 diabetes mellitus with retinopathy of both eyes, with long-term current use of insulin, macular edema presence unspecified, unspecified retinopathy severity (HCC) Expected: 11/09/2024, Expires: 11/09/2025 [facility] Comment on above: Expected: 11/09/2024, Expires: Start: 11-09-2024 End: 11-09-2025 Thyroxine (T4) free [Mass/volume] in Serum or Plasma T4, free Lab Routine Type 2 diabetes mellitus with retinopathy of both eyes, with long-term current use of insulin, macular edema presence unspecified, unspecified retinopathy severity (HCC) Expected: 11/09/2024, Expires: 11/09/2025 [facility] Comment on above: Expected: 11/09/2024, Expires: Start: 11-08-2024 Hemoglobin A1c measurement A1C [facility] Start: 10-19-2024 End: 10-19-2024 Patient encounter procedure 10/19/2024 8:40 AM EDT Office Visit [facility] [address] [place] [phone] Preston Healy MD [address] [address] [facility] Start: 09-28-2024 Depression Remission Assessment (PHQ9) Depression Remission Assessment (PHQ9) [facility] Start: 08-11-2024 Hemoglobin A1c measurement A1C [facility] Start: 06-06-2024 Diabetic foot examination Diabetic Foot Exam [facility] Start: 06-06-2024 End: 06-06-2024 Patient encounter procedure 06/06/2024 11:20 AM EST Office Visit [facility] [address] [place] [address] Vivien Foreman MD [address] [address] [facility] Start: 06-03-2024 Hemoglobin A1c measurement A1C [facility] Start: 05-23-2024 End: 05-23-2024 Patient encounter procedure [facility] Start: 05-18-2024 End: 05-18-2024 Patient encounter procedure [facility] Start: 04-26-2024 End: 04-26-2024 Patient encounter procedure [facility] Start: 03-11-2024 COVID-19 Vaccine () COVID-19 Vaccine () [facility] Start: 03-11-2024 COVID-19 Vaccine () COVID-19 Vaccine () [facility] Start: 03-11-2024 Influenza vaccination [facility] Start: 02-22-2024 End: 02-22-2024 Patient encounter procedure 02/22/2024 2:00 PM EDT Office Visit [facility] Physician [facility] Podiatry [address] [place] [address] Hola Arroyo Jr., DPM [address] [place] [address] [facility] Physician [facility] Start: 01-26-2024 End: 01-26-2024 Patient encounter procedure 01/26/2024 9:20 AM EDT Office Visit [facility] [address] [place] [address] Sanju Bill III, DO [address] [place] [address] [facility] Start: 01-24-2024 End: 01-24-2024 ambulatory 01/24/2024 7:45 AM EDT Treatment [facility] [address] [place] [phone] Vivien Foreman MD [address] [address] Santiago Dozier, PT [facility] Start: 01-19-2024 End: 01-19-2024 ambulatory [facility] Start: 01-17-2024 End: 01-17-2024 ambulatory 01/17/2024 7:45 AM EDT [facility] [address] [place] [address] Vivien Foreman MD [address] [address] Lupe Kunz, ELECTRIFICATION ADVISER [facility] Start: 01-10-2024 End: 01-10-2024 ambulatory [facility] Start: 01-05-2024 End: 01-05-2024 ambulatory 01/05/2024 7:45 AM EDT [facility] [address] [place] [address] Vivien Foreman MD [address] [place] [id number] Santiago Dozier, PT [facility] Start: 01-03-2024 End: 01-03-2024 ambulatory 01/03/2024 7:45 AM EDT Treatment [facility] [place] [address] Vivien Formean MD [facility] [address] [address] Kar Medel, ELECTRIFICATION ADVISER [facility] Start: 12-29-2023 End: 12-29-2023 ambulatory 12/29/2023 7:45 AM EDT [facility] [place] [address] Vivien Foreman MD [facility] [address] [address] Santiago Dozier, PT [facility] Start: 12-27-2023 End: 12-27-2023 ambulatory 12/27/2023 7:45 AM EDT Treatment [facility] [address] [place] [address] Vivien Foreman MD [address] [address] Santiago Dozier, PT Discharge Disposition: Home [facility] Start: 12-19-2023 End: 12-19-2023 ambulatory 12/19/2023 10:00 AM EDT Evaluation [facility] [address] [place] [address] [place] [address] [place] [id number] Santiago Dozier, PT Discharge Disposition: [facility] Start: 12-09-2023 End: 12-09-2023 Patient encounter procedure 12/09/2023 9:15 AM EDT Office Visit [facility] Phys[facility] End[facility] [place] [address] [place] [phone] Radha Hughes, MOLD COOLER [address] [place] [address] [facility] [place] Start: 12-04-2023 Diabetic foot examination Foot Exam [facility] Start: 11-30-2023 Urine screening for protein [facility] Start: 11-28-2023 End: 11-28-2023 Patient encounter procedure 11/28/2023 8:00 AM EDT Office Visit [facility] [address] [place] [address] Vivien Foreman MD [address] [address] [facility] Start: 11-11-2023 End: 11-11-2023 Patient encounter procedure 11/11/2023 9:40 AM EDT Office Visit [facility] [address] [place] [address] Preston Healy MD [address] [address] [facility] Start: 10-27-2023 End: 10-27-2023 Patient encounter procedure 10/27/2023 9:40 AM EDT Office Visit [facility] [address] [place] [address] Sanju Bill III, DO [address] [place] [address] [facility] Start: 10-03-2023 End: 06-06-2024 Comprehensive metabolic 2000 panel - Serum or Plasma Comprehensive Metabolic Panel Lab Routine Type 2 diabetes mellitus with retinopathy of both eyes, with long-term current use of insulin, macular edema presence unspecified, unspecified retinopathy severity (HCC) Expected: 10/03/2023, Expires: 06/06/2024 [facility] Work Phone: Comment on above: Expected: 10/03/2023, Expires: Start: 10-03-2023 End: 06-06-2024 Hemoglobin A1c/Hemoglobin.total in Blood Hemoglobin A1c Lab Routine Type 2 diabetes mellitus with retinopathy of both eyes, with long-term current use of insulin, macular edema presence unspecified, unspecified retinopathy severity (HCC) Expected: 10/03/2023, Expires: 06/06/2024 [facility] Comment on above: Expected: 10/03/2023, Expires: Start: 10-03-2023 End: 06-06-2024 Thyrotropin [Units/volume] in Serum or Plasma TSH Lab Routine Type 2 diabetes mellitus with retinopathy of both eyes, with long-term current use of insulin, macular edema presence unspecified, unspecified retinopathy severity (HCC) Expected: 10/03/2023, Expires: 06/06/2024 [facility] Comment on above: Expected: 10/03/2023, Expires: Start: 10-03-2023 End: 06-06-2024 Thyroxine (T4) free [Mass/volume] in Serum or Plasma T4, Free Lab Routine Type 2 diabetes mellitus with retinopathy of both eyes, with long-term current use of insulin, macular edema presence unspecified, unspecified retinopathy severity (HCC) Expected: 10/03/2023, Expires: 06/06/2024 [facility] Comment on above: Expected: 10/03/2023, Expires: Start: 09-01-2023 Hemoglobin A1c measurement A1C [facility] Start: 08-08-2023 End: 08-08-2023 ambulatory 08/08/2023 11:00 AM EST Patient Outreach [facility] [address] [place] [address] [facility] Start: 07-28-2023 End: 07-28-2023 Patient encounter procedure 07/28/2023 9:00 AM EST Office Visit [facility] [address] [place] [address] Sanju Bill III, DO [address] [place] [address] [facility] Start: 07-14-2023 End: 07-14-2023 Patient encounter procedure 07/14/2023 2:00 PM EST Appointment [facility] CT Scan [address] [place] [address] Sanju Bill III, DO [address] [place] [address] [facility] CT Scan Start: 07-12-2023 End: 07-12-2023 Patient encounter procedure 07/12/2023 8:00 AM EST Office Visit [facility] [place] [phone] Vivien Foreman MD [address] [address] [facility] Start: 06-30-2023 End: 06-30-2023 Patient encounter procedure [facility] Start: 06-14-2023 Fall risk assessment Falls Risk Assessment [facility] Start: 06-14-2023 History and physical examination, annual for health maintenance Wellness Visit [facility] Start: 06-06-2023 End: 06-06-2023 Patient encounter procedure 06/06/2023 9:15 AM EST Office Visit [facility] [place] [address] [place] [phone] Radha Hughes, MOLD COOLER [address] [place] [address] [facility] [place] Start: 06-01-2023 Urine screening for protein Urine (micro)albumin/creatinine ratio - Diabetes [facility] Start: 05-13-2023 End: 05-13-2023 Patient encounter procedure 05/13/2023 8:00 AM EDT Office Visit [facility] Physician [facility] Pod[facility] [address] [place] [phone] Hola Arroyo Jr., DPM [address] [place] [address] [facility] Physician [facility] Start: 04-14-2023 Depression Remission Assessment (PHQ9) Depression Remission Assessment (PHQ9) [facility] Start: 04-05-2023 Glaucoma screening [facility] Start: 03-11-2023 COVID-19 Vaccine ( season) COVID-19 Vaccine ( season) [facility] Start: 03-11-2023 Influenza vaccination Sequential Influenza Vaccine (#1) [facility] Start: 03-04-2023 End: 03-04-2023 Patient encounter procedure 03/04/2023 8:20 AM EDT Office Visit [facility] [address] [place] [address] Preston Healy MD [address] [address] [facility] Start: 03-01-2023 Hemoglobin A1c measurement A1C [facility] Start: 02-19-2023 Diabetic foot examination Foot Exam [facility] Start: 01-21-2023 End: 01-21-2023 Patient encounter procedure [facility] Start: 01-07-2023 End: 01-07-2023 Patient encounter procedure [facility] Start: 12-09-2022 End: 12-09-2022 Patient encounter procedure [facility] Start: 12-02-2022 Glaucoma screening Ophthalmology Exam [facility] Start: 11-19-2022 End: 11-19-2022 Patient encounter procedure 11/19/2022 Office Visit Cardiology Preston Healy MD [address] [address] [facility] Start: 10-12-2022 Diabetic foot examination Foot Exam [facility] Start: 07-09-2022 End: 07-09-2022 Patient encounter procedure 07/09/2022 Office Visit Podiatry Hola Arroyo Jr., DPM [address] [place] [address] [facility] Start: 07-07-2022 End: 07-07-2022 Patient encounter procedure 07/07/2022 Office Visit Podiatry Hola Arroyo Jr., DPM [address] [place] [address] [facility] Start: 06-15-2022 Diabetic foot examination Foot Exam [facility] Start: 06-14-2022 End: 06-14-2022 Patient encounter procedure 06/14/2022 Office Visit Primary Care Vivien Foreman MD [address] [place] [phone] [facility] Start: 06-12-2022 Fall risk assessment Falls Risk Assessment [facility] Start: 06-10-2022 End: 02-20-2023 Comprehensive metabolic 2000 panel - Serum or Plasma Comprehensive Metabolic Panel Lab Routine Type 2 diabetes mellitus with retinopathy of both eyes, with long-term current use of insulin, macular edema presence unspecified, unspecified retinopathy severity (HCC) Expected: 06/10/2022, Expires: 02/20/2023 [facility] Work Phone: Comment on above: Expected: 06/10/2022, Expires: 3 Start: 06-10-2022 End: 02-20-2023 Hemoglobin A1c/Hemoglobin.total in Blood Hemoglobin A1c Lab Routine Type 2 diabetes mellitus with retinopathy of both eyes, with long-term current use of insulin, macular edema presence unspecified, unspecified retinopathy severity (HCC) Expected: 06/10/2022, Expires: 02/20/2023 [facility] Comment on above: Expected: 06/10/2022, Expires: 3 Start: 06-10-2022 End: 02-20-2023 Lipid 1996 panel - Serum or Plasma Lipid Panel Lab Routine Type 2 diabetes mellitus with retinopathy of both eyes, with long-term current use of insulin, macular edema presence unspecified, unspecified retinopathy severity (HCC) Expected: 06/10/2022, Expires: 02/20/2023 [facility] Comment on above: Expected: 06/10/2022, Expires: 3 Start: 06-10-2022 End: 02-20-2023 Thyrotropin [Units/volume] in Serum or Plasma TSH Lab Routine Type 2 diabetes mellitus with retinopathy of both eyes, with long-term current use of insulin, macular edema presence unspecified, unspecified retinopathy severity (HCC) Expected: 06/10/2022, Expires: 02/20/2023 [facility] Comment on above: Expected: 06/10/2022, Expires: 3 Start: 06-10-2022 End: 02-20-2023 Thyroxine (T4) free [Mass/volume] in Serum or Plasma T4, Free Lab Routine Type 2 diabetes mellitus with retinopathy of both eyes, with long-term current use of insulin, macular edema presence unspecified, unspecified retinopathy severity (HCC) Expected: 06/10/2022, Expires: 02/20/2023 [facility] Comment on above: Expected: 06/10/2022, Expires: Start: 06-10-2022 End: 06-10-2022 Patient encounter procedure 06/10/2022 Office Visit Cardiology Sanju Bill III, DO [address] [place] [address] [facility] Start: 05-20-2022 Hemoglobin A1c measurement A1C [facility] Start: 05-14-2022 End: 05-14-2022 Patient encounter procedure 05/14/2022 Office Visit Cardiology Preston Healy MD [address] [address] [facility] Start: 04-11-2022 COVID-19 Vaccine (5 - Booster for Moderna series) COVID-19 Vaccine (5 - Booster for Moderna series) [facility] Start: 04-07-2022 End: 04-07-2022 Patient encounter procedure 04/07/2022 Office Visit Podiatry Hola Arroyo Jr., DPM [address] [place] [address] [facility] Start: 03-17-2022 End: 03-17-2022 Patient encounter procedure [facility] Start: 03-11-2022 Influenza vaccination Sequential Influenza Vaccine (#1) [facility] Start: 03-11-2022 End: 03-11-2022 Patient encounter procedure [facility] Start: 03-02-2022 Diabetic foot examination Foot Exam [facility] Start: 03-02-2022 Fall risk assessment Falls Risk Assessment [facility] Start: 03-02-2022 History and physical examination, annual for health maintenance Wellness Visit [facility] Start: 02-22-2022 End: 02-22-2022 Patient encounter procedure 02/22/2022 Office Visit Primary Care Vivien Foreman MD [address] [address] [facility] Start: 02-19-2022 End: 02-19-2022 Patient encounter procedure 02/19/2022 Office Visit Endocrinology Radha Hughes, MOLD COOLER [address] [place] [address] [facility] [place] Start: 02-10-2022 End: 02-10-2022 Patient encounter procedure [facility] Start: 02-08-2022 End: 10-13-2022 Complete blood count with white cell differential, manual CBC and Differential Lab Routine Type 2 diabetes mellitus with retinopathy of both eyes, with long-term current use of insulin, macular edema presence unspecified, unspecified retinopathy severity (HCC) Expected: 02/08/2022, Expires: 10/13/2022 [facility] Comment on above: Expected: 02/08/2022, Expires: 3 Start: 02-08-2022 End: 10-13-2022 Comprehensive metabolic 2000 panel - Serum or Plasma Comprehensive Metabolic Panel Lab Routine Type 2 diabetes mellitus with retinopathy of both eyes, with long-term current use of insulin, macular edema presence unspecified, unspecified retinopathy severity (HCC) Expected: 02/08/2022, Expires: 10/13/2022 [facility] Work Phone: Comment on above: Expected: 02/08/2022, Expires: 3 Start: 02-08-2022 End: 10-13-2022 Hemoglobin A1c/Hemoglobin.total in Blood Hemoglobin A1c Lab Routine Type 2 diabetes mellitus with retinopathy of both eyes, with long-term current use of insulin, macular edema presence unspecified, unspecified retinopathy severity (HCC) Expected: 02/08/2022, Expires: 10/13/2022 [facility] Comment on above: Expected: 02/08/2022, Expires: 3 Start: 02-08-2022 End: 02-08-2022 Patient encounter procedure 02/08/2022 Office Visit Cardiology Preston Healy MD [address] [address] Osbaldo Jim MD [address] [place] [address] [facility] Start: 02-04-2022 COVID-19 Vaccine (5 - Booster for Moderna series) COVID-19 Vaccine (5 - Booster for Moderna series) [facility] Start: 01-07-2022 Hemoglobin A1c measurement A1C [facility] Start: 01-05-2022 Diabetic foot examination Foot Exam [facility] Start: 01-05-2022 Pneumococcal Vaccine: Age 65+ (3 - PPSV23 or PCV20) Pneumococcal Vaccine: Age 65+ (3 - PPSV23 or PCV20) [facility] Start: 12-31-2021 Depression Remission Assessment (PHQ9) Depression Remission Assessment (PHQ9) [facility] Start: 12-25-2021 Subsequent hospital visit by physician 12/25/2021 Hospital Encounter Cardiology Adilson Stone MD [address] [place] [address] [facility] Start: 12-23-2021 End: 12-23-2021 Patient encounter procedure 12/23/2021 Office Visit Podiatry Hola Arroyo Jr., DPOlegario [address] [place] [address] [facility] Start: 12-22-2021 End: 12-22-2021 Patient encounter procedure 12/22/2021 Appointment Cardiology Preston Healy MD [address] [address] [facility] Start: 12-22-2021 Ophthalmic examination and evaluation Ophthalmology Exam [facility] Start: 12-17-2021 Microalbumin measurement, urine, quantitative Urine Microalbumin [facility] Start: 12-17-2021 Urine screening for protein Urine Microalbumin [facility] Start: 12-16-2021 Depression screening using PHQ-9 (Patient Health Questionnaire 9) score Depression Screening (PHQ9) [facility] Start: 12-16-2021 Fall risk assessment Falls Risk Assessment [facility] Start: 12-10-2021 End: 12-10-2021 Patient encounter procedure 12/10/2021 Office Visit Primary Care Vivien Foreman MD [address] [address] [facility] Start: 10-16-2021 Depression Remission Assessment (PHQ9) Depression Remission Assessment (PHQ9) [facility] Start: 10-12-2021 End: 10-12-2021 Patient encounter procedure 10/12/2021 Office Visit Endocrinology Radha Hughes, MOLD COOLER [address] [place] [address] [facility] [place] Start: 10-09-2021 End: 06-16-2022 Comprehensive metabolic 2000 panel - Serum or Plasma Comprehensive Metabolic Panel Lab Routine Type 2 diabetes mellitus with retinopathy of both eyes, with long-term current use of insulin, macular edema presence unspecified, unspecified retinopathy severity (HCC) Expected: 10/09/2021, Expires: 06/16/2022 [facility] Work Phone: Comment on above: Expected: 10/09/2021, Expires: 2 Start: 10-09-2021 End: 06-16-2022 Hemoglobin A1c/Hemoglobin.total in Blood Hemoglobin A1c Lab Routine Type 2 diabetes mellitus with retinopathy of both eyes, with long-term current use of insulin, macular edema presence unspecified, unspecified retinopathy severity (HCC) Expected: 10/09/2021, Expires: 06/16/2022 [facility] Comment on above: Expected: 10/09/2021, Expires: 2 Start: 10-09-2021 End: 06-16-2022 Lipid 1996 panel - Serum or Plasma Lipid Panel Lab Routine Type 2 diabetes mellitus with retinopathy of both eyes, with long-term current use of insulin, macular edema presence unspecified, unspecified retinopathy severity (HCC) Expected: 10/09/2021, Expires: 06/16/2022 [facility] Comment on above: Expected: 10/09/2021, Expires: 2 Start: 10-09-2021 End: 06-16-2022 Thyrotropin [Units/volume] in Serum or Plasma TSH Lab Routine Type 2 diabetes mellitus with retinopathy of both eyes, with long-term current use of insulin, macular edema presence unspecified, unspecified retinopathy severity (HCC) Expected: 10/09/2021, Expires: 06/16/2022 [facility] Comment on above: Expected: 10/09/2021, Expires: 2 Start: 10-09-2021 End: 06-16-2022 Thyroxine (T4) free [Mass/volume] in Serum or Plasma T4, Free Lab Routine Type 2 diabetes mellitus with retinopathy of both eyes, with long-term current use of insulin, macular edema presence unspecified, unspecified retinopathy severity (HCC) Expected: 10/09/2021, Expires: 06/16/2022 [facility] Comment on above: Expected: 10/09/2021, Expires: 2 Start: 09-10-2021 Hemoglobin A1c measurement A1C [facility] Start: 08-28-2021 Hemoglobin A1c measurement A1C [facility] Start: 07-11-2021 COVID-19 Vaccine (2 - Moderna risk 4-dose series) COVID-19 Vaccine (2 - Moderna risk 4-dose series) [facility] Start: 06-24-2021 End: 06-24-2021 Patient encounter procedure 06/24/2021 Office Visit Podiatry Hola Arroyo Jr., DPOlegario [address] [place] [address] [facility] [facility] Start: 06-19-2021 End: 06-19-2021 Patient encounter procedure 06/19/2021 Office Visit Cardiology Preston Healy MD [address] [place] [address] [facility] Start: 06-18-2021 Hemoglobin A1c measurement A1C [facility] Start: 06-15-2021 End: 06-15-2021 Patient encounter procedure 06/15/2021 Office Visit Endocrinology Radha Hughes, JOHN [address] [place] [address] [facility] Start: 06-12-2021 End: 06-12-2021 Patient encounter procedure 06/12/2021 Office Visit Primary Care Vivien Foreman MD [address] [address] [facility] Start: 06-01-2021 End: 06-01-2021 Patient encounter procedure 06/01/2021 Office Visit Endocrinology Radha Hughes CNP [address] [place] [address] [facility] Start: 05-25-2021 End: 05-25-2021 Patient encounter procedure 05/25/2021 Office Visit Endocrinology Radha Hughes CNP [address] [place] [address] [facility] Start: 05-12-2021 Diabetic foot examination Foot Exam [facility] Start: 05-11-2021 End: 03-03-2022 Comprehensive metabolic 2000 panel - Serum or Plasma Comprehensive Metabolic Panel Lab Routine Type 2 diabetes mellitus with retinopathy of both eyes, with long-term current use of insulin, macular edema presence unspecified, unspecified retinopathy severity (HCC) Expected: 05/11/2021, Expires: 03/03/2022 [facility] Work Phone: Comment on above: Expected: 05/11/2021, Expires: Start: 05-11-2021 End: 03-03-2022 Hemoglobin A1c/Hemoglobin.total in Blood Hemoglobin A1c Lab Routine Type 2 diabetes mellitus with retinopathy of both eyes, with long-term current use of insulin, macular edema presence unspecified, unspecified retinopathy severity (HCC) Expected: 05/11/2021, Expires: 03/03/2022 [facility] Comment on above: Expected: 05/11/2021, Expires: 2 Start: 05-11-2021 End: 03-03-2022 Thyrotropin [Units/volume] in Serum or Plasma TSH Lab Routine Type 2 diabetes mellitus with retinopathy of both eyes, with long-term current use of insulin, macular edema presence unspecified, unspecified retinopathy severity (HCC) Expected: 05/11/2021, Expires: 03/03/2022 [facility] Comment on above: Expected: 05/11/2021, Expires: 2 Start: 05-11-2021 End: 03-03-2022 Thyroxine (T4) free [Mass/volume] in Serum or Plasma T4, Free Lab Routine Type 2 diabetes mellitus with retinopathy of both eyes, with long-term current use of insulin, macular edema presence unspecified, unspecified retinopathy severity (HCC) Expected: 05/11/2021, Expires: 03/03/2022 [facility] Comment on above: Expected: 05/11/2021, Expires: 2 Start: 04-28-2021 Administration of herpes zoster vaccine Zoster Vaccines (2 of 2) [facility] Start: 03-18-2021 Tetanus vaccination Tetanus: Every 10yrs [facility] Start: 03-11-2021 End: 01-06-2022 Comprehensive metabolic 2000 panel - Serum or Plasma Comprehensive Metabolic Panel Lab Routine Type 2 diabetes mellitus with retinopathy of both eyes, with long-term current use of insulin, macular edema presence unspecified, unspecified retinopathy severity (HCC) Expected: 03/11/2021, Expires: 01/06/2022 [facility] Comment on above: Expected: 03/11/2021, Expires: 2 Start: 03-11-2021 End: 01-06-2022 Hemoglobin A1c/Hemoglobin.total in Blood Hemoglobin A1c Lab Routine Type 2 diabetes mellitus with retinopathy of both eyes, with long-term current use of insulin, macular edema presence unspecified, unspecified retinopathy severity (HCC) Expected: 03/11/2021, Expires: 01/06/2022 [facility] Comment on above: Expected: 03/11/2021, Expires: 2 Start: 03-11-2021 Influenza vaccination Sequential Influenza Vaccine (#1) [facility] Start: 03-11-2021 End: 01-06-2022 Thyrotropin [Units/volume] in Serum or Plasma TSH Lab Routine Type 2 diabetes mellitus with retinopathy of both eyes, with long-term current use of insulin, macular edema presence unspecified, unspecified retinopathy severity (HCC) Expected: 03/11/2021, Expires: 01/06/2022 [facility] Comment on above: Expected: 03/11/2021, Expires: Start: 03-11-2021 End: 01-06-2022 Thyroxine (T4) free [Mass/volume] in Serum or Plasma T4, Free Lab Routine Type 2 diabetes mellitus with retinopathy of both eyes, with long-term current use of insulin, macular edema presence unspecified, unspecified retinopathy severity (HCC) Expected: 03/11/2021, Expires: 01/06/2022 [facility] Comment on above: Expected: 03/11/2021, Expires: 2 Start: 03-02-2021 End: 03-02-2021 Telemedicine consultation with patient 03/02/2021 Telemedicine Primary Care Vivien Foreman MD [address] [address] [phone] [facility] Start: 03-02-2021 End: 03-02-2021 Patient encounter procedure [facility] Cecilia Start: 02-27-2021 End: 02-27-2021 Patient encounter procedure 02/27/2021 Office Visit Cardiology Preston Healy MD [address] [address] [phone] [facility] Start: 02-02-2021 End: 02-02-2021 Patient encounter procedure 02/02/2021 Appointment Cardiology Preston Healy MD [address] [address] [phone] [facility] Start: 01-13-2021 End: 01-13-2021 Patient encounter procedure 01/13/2021 Appointment Cardiology Preston Healy MD [address] [address] [phone] [facility] Start: 01-09-2021 End: 01-09-2021 Office Visit 01/09/2021 Office Visit Cardiology Preston Healy MD [address] [address] [phone] [facility] Start: 01-05-2021 End: 01-05-2021 Patient encounter procedure [facility] Start: 12-30-2020 Diabetic foot examination Foot Exam [facility] Start: 11-03-2020 HbA1c (Bld) [Mass fraction] A1C [facility] Start: 11-03-2020 Hemoglobin A1c measurement A1C [facility] Start: 10-13-2020 End: 10-13-2020 Office Visit [facility] Start: 10-07-2020 End: 05-13-2021 Complete blood count with white cell differential, manual CBC and Differential Lab Routine Type 2 diabetes mellitus with retinopathy of both eyes, with long-term current use of insulin, macular edema presence unspecified, unspecified retinopathy severity (HCC) Expected: 10/07/2020, Expires: 05/13/2021 [facility] Comment on above: Expected: 10/07/2020, Expires: Start: 10-07-2020 End: 05-13-2021 Comprehensive metabolic 2000 panel Comprehensive Metabolic Panel Lab Routine Type 2 diabetes mellitus with retinopathy of both eyes, with long-term current use of insulin, macular edema presence unspecified, unspecified retinopathy severity (HCC) Expected: 10/07/2020, Expires: 05/13/2021 [facility] Comment on above: Expected: 10/07/2020, Expires: Start: 10-07-2020 End: 05-13-2021 Free T4 [Mass/Vol] T4, Free Lab Routine Type 2 diabetes mellitus with retinopathy of both eyes, with long-term current use of insulin, macular edema presence unspecified, unspecified retinopathy severity (HCC) Expected: 10/07/2020, Expires: 05/13/2021 [facility] Comment on above: Expected: 10/07/2020, Expires: Start: 10-07-2020 End: 05-13-2021 HbA1c (Bld) [Mass fraction] Hemoglobin A1c Lab Routine Type 2 diabetes mellitus with retinopathy of both eyes, with long-term current use of insulin, macular edema presence unspecified, unspecified retinopathy severity (HCC) Expected: 10/07/2020, Expires: 05/13/2021 [facility] Comment on above: Expected: 10/07/2020, Expires: Start: 10-07-2020 End: 05-13-2021 Lipid 1996 panel Lipid Panel Lab Routine Type 2 diabetes mellitus with retinopathy of both eyes, with long-term current use of insulin, macular edema presence unspecified, unspecified retinopathy severity (HCC) Expected: 10/07/2020, Expires: 05/13/2021 [facility] Comment on above: Expected: 10/07/2020, Expires: Start: 10-07-2020 End: 05-13-2021 TSH Qn TSH Lab Routine Type 2 diabetes mellitus with retinopathy of both eyes, with long-term current use of insulin, macular edema presence unspecified, unspecified retinopathy severity (HCC) Expected: 10/07/2020, Expires: 05/13/2021 [facility] Comment on above: Expected: 10/07/2020, Expires: Start: 06-27-2020 HbA1c (Bld) [Mass fraction] A1C [facility] Start: 05-05-2020 End: 05-05-2020 Office Visit 05/05/2020 Office Visit Endocrinology Radha Hughes, MOLD COOLER [address] [place] [id number] [phone] [facility] Start: 04-15-2020 End: 12-31-2020 Comprehensive metabolic 2000 panel Comprehensive Metabolic Panel Lab Routine Type 2 diabetes mellitus with retinopathy of both eyes, with long-term current use of insulin, macular edema presence unspecified, unspecified retinopathy severity (HCC) Expected: 04/15/2020, Expires: 12/31/2020 [facility] Comment on above: Expected: 04/15/2020, Expires: 1 Start: 04-15-2020 End: 12-31-2020 Free T4 [Mass/Vol] T4, Free Lab Routine Type 2 diabetes mellitus with retinopathy of both eyes, with long-term current use of insulin, macular edema presence unspecified, unspecified retinopathy severity (HCC) Expected: 04/15/2020, Expires: 12/31/2020 [facility] Comment on above: Expected: 04/15/2020, Expires: 1 Start: 04-15-2020 End: 12-31-2020 HbA1c (Bld) [Mass fraction] Hemoglobin A1c Lab Routine Type 2 diabetes mellitus with retinopathy of both eyes, with long-term current use of insulin, macular edema presence unspecified, unspecified retinopathy severity (HCC) Expected: 04/15/2020, Expires: 12/31/2020 [facility] Comment on above: Expected: 04/15/2020, Expires: 1 Start: 04-15-2020 End: 12-31-2020 TSH Qn TSH Lab Routine Type 2 diabetes mellitus with retinopathy of both eyes, with long-term current use of insulin, macular edema presence unspecified, unspecified retinopathy severity (HCC) Expected: 04/15/2020, Expires: 12/31/2020 [facility] Comment on above: Expected: 04/15/2020, Expires: 1 Start: 03-11-2020 Influenza vaccination given [facility] Start: 03-01-2020 Diabetic foot examination FOOT EXAM [facility] Start: 02-01-2020 End: 02-01-2020 Office Visit 02/01/2020 Office Visit Cardiology Preston Healy MD [address] [address] [phone] [facility] Start: 11-05-2019 End: 11-05-2019 Office Visit 11/05/2019 Office Visit Endocrinology Radha Hughes, MOLD COOLER [address] [address] [phone] [facility] Start: 10-31-2019 Diabetic foot examination FOOT EXAM [facility] Start: 10-24-2019 Microalbumin measurement, urine, quantitative Urine Microalbumin [facility] Start: 10-11-2019 End: 10-11-2019 Treatment 10/11/2019 Treatment Rehabilitation Amanda Johnson, MOLD CO[employer]ER [address] [place] [address] [phone] Joyce Moraes PTA [facility] Start: 08-23-2019 HbA1c (Bld) [Mass fraction] A1C [facility] Start: 06-29-2019 Diabetic foot examination FOOT EXAM [facility] Start: 06-21-2019 End: 06-21-2019 Office Visit 06/21/2019 Office Visit Endocrinology Radha Hughes CNP [address] [place] [address] [phone] [facility] Start: 2019 Respiratory Syncytial Virus Immunization: Risk, 60-74 Risk, or 75+ (1 - 1-dose 75+ series) Respiratory Syncytial Virus Immunization: Risk, 60-74 Risk, or 75+ (1 - 1-dose 75+ series) [facility] Start: 04-24-2019 Hemoglobin A1c/Hemoglobin.total mass fraction (Bld) A1C [facility] Start: 03-11-2019 Influenza vaccination given [facility] Start: 03-01-2019 End: 03-01-2019 Office Visit 03/01/2019 Office Visit Endocrinology Radha Hughes CNP [address] [place] [address] [phone] [facility] Start: 01-03-2019 End: 01-03-2019 Follow-Up 01/03/2019 Follow-Up Sports Medicine Jenaro Oquendo MD [address] [place] [address] [phone] [facility] [place] Start: 12-26-2018 End: 12-26-2018 Surgery 12/26/2018 Surgery Jenaro Oquendo MD [address] [place] [address] [phone] TENDON RELEASE DE QUERVAINS [facility] Comment on above: TENDON RELEASE DE QUERVAHEATHER Start: 12-26-2018 End: 12-26-2018 Hospital Encounter [facility] Comment on above: TENDON RELEASE DE QUERVAHEATHER RIGHT Start: 12-15-2018 End: 12-15-2018 Office Visit 12/15/2018 Office Visit Sports Medicine Jenaro Oquendo MD [address] [address] [phone] [facility] [place] Start: 12-12-2018 End: 12-12-2018 Appointment 12/12/2018 Appointment Cardiology Preston Healy MD [address] [address] [phone] [facility] Start: 12-08-2018 End: 12-08-2018 Appointment 12/08/2018 Appointment Cardiology Preston Healy MD [address] [address] [phone] [facility] Start: 12-07-2018 End: 12-07-2018 Appointment 12/07/2018 Appointment Cardiology Preston Healy MD [address] [address] [phone] [facility] Start: 12-01-2018 End: 12-01-2018 Office Visit 12/01/2018 Office Visit Cardiology Preston Healy MD [address] [address] [phone] [facility] Start: 11-07-2018 Diabetic foot examination (regime/therapy) FOOT EXAM [facility] Start: 10-30-2018 End: 10-30-2018 Ambulatory 10/30/2018 Office Visit Endocrinology Estephania Yeh MD [facility] [address] [address] [phone] [facility] Start: 03-14-2018 End: 03-14-2018 Ambulatory 03/14/2018 Office Visit Endocrinology Vipul Arnold PA-C [address] [address] [phone] [facility] Start: 03-11-2018 Influenza vaccination [facility] Start: 03-11-2018 Influenza vaccination given SEQUENTIAL INFLUENZA VACCINE (#1) [facility] Start: 02-09-2018 Diabetic foot examination (regime/therapy) FOOT EXAM [facility] Work Phone: Start: 02-09-2018 FOOT EXAM FOOT EXAM [facility] Work Phone: Start: 12-26-2017 End: 12-26-2017 Ambulatory 12/26/2017 Office Visit Sports Medicine Dillan Cooper MD [address] [place] [address] [phone] [facility] Start: 11-21-2017 End: 11-21-2017 Ambulatory 11/21/2017 Appointment Cardiology Preston Healy MD [address] [address] [phone] [facility] Start: 11-07-2017 End: 11-07-2017 Ambulatory 11/07/2017 Office Visit Endocrinology Radha Hughes CNP [address] [address] [phone] [facility] Start: 11-04-2017 Ambulatory 11/04/2017 Office Visit Cardiology Preston Healy MD [address] [place] [address] [phone] [facility] Start: 06-13-2017 Ambulatory 06/13/2017 Office Visit Endocrinology Radha Hughes CNP [address] [address] [phone] [facility] Start: 03-11-2017 Influenza vaccination SEQUENTIAL INFLUENZA VACCINE (#1) [facility] Work Phone: Start: 03-11-2017 SEQUENTIAL INFLUENZA VACCINE (#1) SEQUENTIAL INFLUENZA VACCINE (#1) [facility] Work Phone: Start: 03-10-2017 Ambulatory 03/10/2017 Office Visit Cardiology Preston Healy MD [address] [place] [address] [phone] [facility] Start: 09-05-2013 Pneumococcal vaccination Pneumococcal Vaccine Age 65+ (2 of 2 - PCV13) [facility] Start: 2009 ABDOMINAL AORTIC ULTRASOUND ABDOMINAL AORTIC ULTRASOUND [facility] Work Phone: Start: 2009 Fall risk assessment Falls Risk Assessment [facility] Start: 2009 Pneumococcal vaccination PNEUMOCOCCAL VACCINE AGE 65+ (1 of 2 - PCV13) [facility] Work Phone: Start: 2009 PNEUMOCOCCAL VACCINE AGE 65+ (1 of 2 - PCV13) PNEUMOCOCCAL VACCINE AGE 65+ (1 of 2 - PCV13) [facility] Work Phone: Start: 2009 Ultrasound scan of abdominal aorta ABDOMINAL AORTIC ULTRASOUND [facility] Work Phone: Start: 2004 Zoster vacc, sc ZOSTER VACCINE [facility] Work Phone: Start: 1994 Administration of herpes zoster vaccine Zoster Vaccines (1 of 2) [facility] Start: 1994 Screening for malignant neoplasm of colon [facility] Start: 1994 ZOSTER VACCINES (1 of 2) ZOSTER VACCINES (1 of 2) [facility] Start: 1962 Hepatitis C antibody, confirmatory test Hepatitis C Screening [facility] Start: 1962 Hepatitis C screening Hepatitis C Screening [facility] Start: 1960 COVID-19 Vaccine (1 of 2) COVID-19 Vaccine (1 of 2) [facility] Start: 1960 COVID-19 Vaccine (1) COVID-19 Vaccine (1) [facility] Start: 1956 Adolescent depression screening assessment Depression Screening (PHQ9) [facility] Start: 1956 COVID-19 Vaccine (1) COVID-19 Vaccine (1) [facility] Start: 1954 Diabetic foot examination Diabetic Foot Exam [facility] Start: 1954 Ophthalmic examination and evaluation OPHTHALMOLOGY EXAM [facility] Start: 1954 OPHTHALMOLOGY EXAM OPHTHALMOLOGY EXAM [facility] Work Phone: Start: 1954 URINE MICROALBUMIN URINE MICROALBUMIN [facility] Work Phone: Start: 1954 Urine, microalbumin URINE MICROALBUMIN [facility] Work Phone: Start: 1950 Pneumococcal Vaccine: Age 65+ (1 of 4 - PCV13) Pneumococcal Vaccine: Age 65+ (1 of 4 - PCV13) [facility] Start: 1947 History and physical examination, annual for health maintenance Wellness Visit [facility] Start: 1944 Colonoscopy COLONOSCOPY [facility] Work Phone: Start: 1944 HbA1c HEMOGLOBIN A1C [facility] Work Phone: Start: 1944 HEMOGLOBIN A1C HEMOGLOBIN A1C [facility] Work Phone: Start: 1944 Screening colonoscopy COLONOSCOPY [facility] Work Phone: Start: 1944 TETANUS EVERY 10 YR TETANUS EVERY 10 YR [facility] Work Phone: Start: 1944 End: 1944 Tetanus vaccination [facility] Work Phone: Start: 1944 Depression screening using PHQ-9 (Patient Health Questionnaire 9) score DEPRESSION SCREENING (PHQ9) [facility] Start: 1944 Fall risk assessment Falls Risk Assessment [facility] Start: 1944 Physical therapy management PT Plan of Care [facility] Start: 1944 Prostate specific antigen measurement PSA Level [facility] Start: 1944 Screening for malignant neoplasm of colon Colorectal Cancer Screening: Colonoscopy [facility] Start: 1944 Screening for substance abuse SUBSTANCE ABUSE SCREENING (AUDIT-C) [facility] Start: 1944 US scan of abdominal aorta Abdominal Aortic Ultrasound [facility] 12 lead ECG ECG 12 Lead ECG Routine Preoperative testing Ordered: 12/21/2018 [facility] Comment on above: Ordered: 12/21/2018 Anion gap in Serum o r Plasma [facility] Anion gap in Serum o r Plasma [facility] Anion gap in Serum o r Plasma [facility] Anion gap in Serum o r Plasma [facility] Anion gap in Serum o r Plasma [facility] Anion gap in Serum o r Plasma [facility] Anion gap in Serum o r Plasma [facility] Anion gap in Serum o r Plasma [facility] BUN/Creatinine ratio [facility] BUN/Creatinine ratio [facility] BUN/Creatinine ratio [facility] BUN/Creatinine ratio [facility] BUN/Creatinine ratio [facility] BUN/Creatinine ratio [facility] BUN/Creatinine ratio [facility] BUN/Creatinine ratio [facility] End: 01-22-2024 C reactive protein [Mass/volume] in Serum or Plasma CRP, Inflammation Lab Routine Diarrhea, unspecified type 1 Occurrences starting 01/21/2023 until 01/22/2024 [facility] Comment on above: 1 Occurrences starting 01/21/2023 until 01/22/2024 C reactive protein [Mass/volume] in Serum or Plasma CRP, Inflammation Lab Routine Diarrhea, unspecified type 01/21/2023 10:37 AM EDT [facility] C reactive protein [Mass/volume] in Serum or Plasma [facility] C reactive protein [Mass/volume] in Serum or Plasma [facility] Calcium [Mass/volume ] in Serum or Plasma [facility] Calcium [Mass/volume ] in Serum or Plasma [facility] Calcium [Mass/volume ] in Serum or Plasma [facility] Calcium [Mass/volume ] in Serum or Plasma [facility] Calcium [Mass/volume ] in Serum or Plasma [facility] Calcium [Mass/volume ] in Serum or Plasma [facility] Calcium [Mass/volume ] in Serum or Plasma [facility] Calcium [Mass/volume ] in Serum or Plasma [facility] Carbon dioxide, tota l [Moles/volume] in Central venous blood [facility] Carbon dioxide, tota l [Moles/volume] in Central venous blood [facility] Carbon dioxide, tota l [Moles/volume] in Central venous blood [facility] Carbon dioxide, tota l [Moles/volume] in Central venous blood [facility] Carbon dioxide, tota l [Moles/volume] in Central venous blood [facility] Carbon dioxide, tota l [Moles/volume] in Central venous blood [facility] Carbon dioxide, tota l [Moles/volume] in Central venous blood [facility] Carbon dioxide, tota l [Moles/volume] in Central venous blood [facility] End: 11-08-2018 CBC and Differential CBC and Differential Routine Type 2 diabetes mellitus with retinopathy of both eyes, with long-term current use of insulin, macular edema presence unspecified, unspecified retinopathy severity (HCC) 1 Occurrences starting 11/07/2017 until 11/08/2018 [facility] Complete blood count (hemogram) panel - Blood by Automated count CBC Lab Routine Preoperative testing Ordered: 12/21/2018 [facility] Comment on above: Ordered: 12/21/2018 End: 06-30-2019 Complete blood count with white cell differential, manual CBC and Differential Routine Type 2 diabetes mellitus with retinopathy of both eyes, with long-term current use of insulin, macular edema presence unspecified, unspecified retinopathy severity (HCC) 1 Occurrences starting 06/29/2018 until 06/30/2019 [facility] Comment on above: 1 Occurrences starting 06/29/2018 until 06/30/2019 End: 03-01-2020 Complete blood count with white cell differential, manual CBC and Differential Lab Routine Type 2 diabetes mellitus with retinopathy of both eyes, with long-term current use of insulin, macular edema presence unspecified, unspecified retinopathy severity (HCC) 1 Occurrences starting 03/01/2019 until 03/01/2020 [facility] Comment on above: 1 Occurrences starting 03/01/2019 until 03/01/2020 End: 12-17-2021 Complete blood count with white cell differential, manual CBC and Differential Lab Routine 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, with long-term current use of insulin, unspecified laterality, unspecified retinopathy severity (HCC) 1 Occurrences starting 12/17/2020 until 12/17/2021 [facility] Comment on above: 1 Occurrences starting 12/17/2020 until 12/17/2021 Complete blood count with white cell differential, manual CBC and Differential Lab Routine 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, with long-term current use of insulin, unspecified laterality, unspecified retinopathy severity (HCC) 12/17/2020 7:57 AM EDT [facility] End: 11-28-2024 Complete blood count with white cell differential, manual CBC and Differential Lab Routine Atherosclerosis of [place] arteries of extremities with intermittent claudication, bilateral legs (HCC) 1 Occurrences starting 11/29/2023 until 11/28/2024 [facility] Comment on above: 1 Occurrences starting 11/29/2023 until 11/28/2024 End: 06-30-2019 Comprehensive metabolic 2000 panel Comprehensive Metabolic Panel Routine Type 2 diabetes mellitus with retinopathy of both eyes, with long-term current use of insulin, macular edema presence unspecified, unspecified retinopathy severity (HCC) 1 Occurrences starting 06/29/2018 until 06/30/2019 [facility] Comment on above: 1 Occurrences starting 06/29/2018 until 06/30/2019 End: 10-31-2019 Comprehensive metabolic 2000 panel Comprehensive Metabolic Panel Routine Type 2 diabetes mellitus with retinopathy of both eyes, with long-term current use of insulin, macular edema presence unspecified, unspecified retinopathy severity (HCC) 1 Occurrences starting 10/30/2018 until 10/31/2019 [facility] Comment on above: 1 Occurrences starting 10/30/2018 until 10/31/2019 Comprehensive metabo lic 2000 panel [facility] Comment on above: Ordered: 12/21/2018 End: 03-01-2020 Comprehensive metabolic 2000 panel Comprehensive Metabolic Panel Lab Routine Type 2 diabetes mellitus with retinopathy of both eyes, with long-term current use of insulin, macular edema presence unspecified, unspecified retinopathy severity (HCC) 1 Occurrences starting 03/01/2019 until 03/01/2020 [facility] Comment on above: 1 Occurrences starting 03/01/2019 until 03/01/2020 End: 12-16-2021 Comprehensive metabolic 2000 panel - Serum or Plasma Comprehensive Metabolic Panel Lab Routine Type 2 diabetes mellitus with retinopathy of both eyes, with long-term current use of insulin, macular edema presence unspecified, unspecified retinopathy severity (HCC) Essential hypertension 1 Occurrences starting 12/16/2020 until 12/16/2021 [facility] Comment on above: 1 Occurrences starting 12/16/2020 until 12/16/2021 End: 01-22-2024 Comprehensive metabolic 2000 panel - Serum or Plasma Comprehensive Metabolic Panel Lab Routine Diarrhea, unspecified type 1 Occurrences starting 01/21/2023 until 01/22/2024 [facility] Comment on above: 1 Occurrences starting 01/21/2023 until 01/22/2024 Comprehensive metabo lic 2000 panel - Serum or Plasma Comprehensive Metabolic Panel Lab Routine Diarrhea, unspecified type 01/21/2023 10:37 AM EDT [facility] End: 12-09-2024 Comprehensive metabolic 1999 panel - Serum or Plasma Comprehensive Metabolic Panel Lab Routine Type 2 diabetes mellitus with retinopathy of both eyes, with long-term current use of insulin, macular edema presence unspecified, unspecified retinopathy severity (HCC) 1 Occurrences starting 12/09/2023 until 12/09/2024 [facility] Work Phone: Comment on above: 1 Occurrences starting 12/09/2023 until 12/09/2024 End: 11-13-2025 Comprehensive metabolic 2000 panel - Serum or Plasma Comprehensive Metabolic Panel Lab Routine Type 2 diabetes mellitus with retinopathy of both eyes, with long-term current use of insulin, macular edema presence unspecified, unspecified retinopathy severity (HCC) 1 Occurrences starting 11/12/2024 until 11/13/2025 [facility] Comment on above: 1 Occurrences starting 11/12/2024 until 11/13/2025 End: 11-08-2018 Comprehensive metabolic panel [AGGREGATE] Comprehensive Metabolic Panel Routine Type 2 diabetes mellitus with retinopathy of both eyes, with long-term current use of insulin, macular edema presence unspecified, unspecified retinopathy severity (HCC) 1 Occurrences starting 11/07/2017 until 11/08/2018 [facility] End: 02-10-2018 Comprehensive metabolic panel [AGGREGATE] Comprehensive Metabolic Panel Routine Type 2 diabetes mellitus with retinopathy, with long-term current use of insulin, macular edema presence unspecified, unspecified laterality, unspecified retinopathy severity (HCC) Hypercholesterolemia Essential hypertension 1 Occurrences starting 02/09/2017 until 02/10/2018 [facility] Work Phone: Creatinine [Mass/volume] in Serum or Plasma [facility] Creatinine [Mass/volume] in Serum or Plasma [facility] Creatinine [Mass/volume] in Serum or Plasma [facility] Creatinine [Mass/volume] in Serum or Plasma [facility] Creatinine [Mass/volume] in Serum or Plasma [facility] Creatinine [Mass/volume] in Serum or Plasma [facility] Creatinine [Mass/volume] in Serum or Plasma [facility] Creatinine [Mass/volume] in Serum or Plasma [facility] End: 08-30-2024 CTA Abdominal Aorta and Bilateral Runoff Vessels W contrast IV CT Angiogram Abdominal Aorta With Lower Extremity Imaging Routine Atherosclerosis of [place] arteries of extremities with intermittent claudication, bilateral legs (HCC) PAD (peripheral artery disease) (HCC) 1 Occurrences starting 06/30/2023 until 08/30/2024 [facility] Work Phone: Comment on above: 1 Occurrences starting 06/30/2023 until 08/30/2024 End: 11-05-2018 Echocardiogram complete Echocardiogram complete Routine S/P aortic valve replacement 1 Occurrences starting 11/04/2017 until 11/05/2018 [facility] End: 12-02-2019 Echocardiography Echocardiogram complete Echocardiography Routine Chest pain, unspecified type S/P aortic valve replacement 1 Occurrences starting 12/01/2018 until 12/02/2019 [facility] Comment on above: 1 Occurrences starting 12/01/2018 until 12/02/2019 End: 03-12-2022 Echocardiography Echocardiogram complete Echocardiography Routine Persistent atrial fibrillation (HCC) 1 Occurrences starting 01/09/2021 until 03/12/2022 [facility] Comment on above: 1 Occurrences starting 01/09/2021 until 03/12/2022 End: 02-21-2023 Echocardiography Echocardiogram complete Echocardiography Routine Pre-operative cardiovascular examination Hx of aortic valve replacement 1 Occurrences starting 12/22/2021 until 02/21/2023 [employer] Work Phone: Comment on above: 1 Occurrences starting 12/22/2021 until 02/21/2023 End: 03-04-2024 Echocardiography Echocardiogram complete Echocardiography Routine Persistent atrial fibrillation (HCC) 1 Occurrences starting 03/04/2023 until 03/04/2024 [employer] Work Phone: Comment on above: 1 Occurrences starting 03/04/2023 until 03/04/2024 Erythrocyte mean corpuscular volume determination [facility] Erythrocyte mean corpuscular volume determination [facility] Erythrocyte mean corpuscular volume determination [facility] Erythrocyte mean corpuscular volume determination [facility] Erythrocyte mean corpuscular volume determination [facility] Erythrocyte mean corpuscular volume determination [facility] Erythrocyte mean corpuscular volume determination [facility] Erythrocyte sedimentation rate [facility] Erythrocyte sedimentation rate [facility] End: 03-12-2022 Extended Holter Monitor (3-7 days) Extended Holter Monitor (3-7 days) Cardiac Services Routine Persistent atrial fibrillation (HCC) 1 Occurrences starting 01/09/2021 until 03/12/2022 [facility] Comment on above: 1 Occurrences starting 01/09/2021 until 03/12/2022 End: 01-13-2021 Extended Holter Monitor (3-7 days) Extended Holter Monitor (3-7 days) Cardiac Services Routine Persistent atrial fibrillation (HCC) Once for 1 Occurrences starting 01/13/2021 until 01/13/2021 [facility] Comment on above: Once for 1 Occurrences starting 01/14/20 until 01/13/2021 End: 02-10-2018 External Lab Microalbumin/Creatinine External Lab Microalbumin/Creatinine Routine Type 2 diabetes mellitus with retinopathy, with long-term current use of insulin, macular edema presence unspecified, unspecified laterality, unspecified retinopathy severity (HCC) Hypercholesterolemia Essential hypertension 1 Occurrences starting 02/09/2017 until 02/10/2018 [facility] Work Phone: End: 06-30-2019 External Lab Microalbumin/Creatinine External Lab Microalbumin/Creatinine Routine Type 2 diabetes mellitus with retinopathy of both eyes, with long-term current use of insulin, macular edema presence unspecified, unspecified retinopathy severity (HCC) 1 Occurrences starting 06/29/2018 until 06/30/2019 [facility] Comment on above: 1 Occurrences starting 06/29/2018 until 06/30/2019 End: 03-01-2020 Free T4 [Mass/Vol] T4, Free Lab Routine Type 2 diabetes mellitus with retinopathy of both eyes, with long-term current use of insulin, macular edema presence unspecified, unspecified retinopathy severity (HCC) 1 Occurrences starting 03/01/2019 until 03/01/2020 [facility] Comment on above: 1 Occurrences starting 03/01/2019 until 03/01/2020 End: 01-22-2024 Gastrointestinal pathogens DNA and RNA panel - Stool by [facility] with non-probe detection Stool/GI PCR Panel Microbiology Routine Diarrhea, unspecified type 1 Occurrences starting 01/21/2023 until 01/22/2024 [facility] Comment on above: 1 Occurrences starting 01/21/2023 until 01/22/2024 Glucose [Mass/volume ] in Serum or Plasma [facility] Glucose [Mass/volume ] in Serum or Plasma [facility] Glucose [Mass/volume ] in Serum or Plasma [facility] Glucose [Mass/volume ] in Serum or Plasma [facility] Glucose [Mass/volume ] in Serum or Plasma [facility] Glucose [Mass/volume ] in Serum or Plasma [facility] Glucose [Mass/volume ] in Serum or Plasma [facility] Glucose [Mass/volume ] in Serum or Plasma [facility] Glucose mass conc POC Glucose Po int of Care Testing STAT 12/26/2018 11:48 AM EDT [facility] End: 11-08-2018 HbA1c Hemoglobin A1c Routine Type 2 diabetes mellitus with retinopathy of both eyes, with long-term current use of insulin, macular edema presence unspecified, unspecified retinopathy severity (HCC) 1 Occurrences starting 11/07/2017 until 11/08/2018 [facility] End: 02-10-2018 HbA1c Hemoglobin A1c Routine Type 2 diabetes mellitus with retinopathy, with long-term current use of insulin, macular edema presence unspecified, unspecified laterality, unspecified retinopathy severity (HCC) Hypercholesterolemia Essential hypertension 1 Occurrences starting 02/09/2017 until 02/10/2018 [facility] Work Phone: End: 03-01-2020 HbA1c (Bld) [Mass fraction] Hemoglobin A1c Lab Routine Type 2 diabetes mellitus with retinopathy of both eyes, with long-term current use of insulin, macular edema presence unspecified, unspecified retinopathy severity (HCC) 1 Occurrences starting 03/01/2019 until 03/01/2020 [facility] Comment on above: 1 Occurrences starting 03/01/2019 until 03/01/2020 Hematocrit [Volume Fraction] of Blood [facility] Hematocrit [Volume Fraction] of Blood [facility] Hematocrit [Volume Fraction] of Blood [facility] Hematocrit [Volume Fraction] of Blood [facility] Hematocrit [Volume Fraction] of Blood [facility] Hematocrit [Volume Fraction] of Blood [facility] Hematocrit [Volume Fraction] of Blood [facility] Hemoglobin [Mass/volume] in Blood [facility] Hemoglobin [Mass/volume] in Blood [facility] Hemoglobin [Mass/volume] in Blood [facility] Hemoglobin [Mass/volume] in Blood [facility] Hemoglobin [Mass/volume] in Blood [facility] Hemoglobin [Mass/volume] in Blood [facility] Hemoglobin [Mass/volume] in Blood [facility] End: 12-17-2021 Hemoglobin A1c/Hemoglobin.total in Blood Hemoglobin A1c Lab Routine 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, with long-term current use of insulin, unspecified laterality, unspecified retinopathy severity (HCC) 1 Occurrences starting 12/17/2020 until 12/17/2021 [facility] Comment on above: 1 Occurrences starting 12/17/2020 until 12/17/2021 Hemoglobin A1c/Hemoglobin.total in Blood Hemoglobin A1c Lab Routine 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, with long-term current use of insulin, unspecified laterality, unspecified retinopathy severity (HCC) 12/17/2020 7:57 AM EDT [facility] End: 12-09-2024 Hemoglobin A1c/Hemoglobin.total in Blood Hemoglobin A1c Lab Routine Type 2 diabetes mellitus with retinopathy of both eyes, with long-term current use of insulin, macular edema presence unspecified, unspecified retinopathy severity (HCC) 1 Occurrences starting 12/09/2023 until 12/09/2024 [facility] Comment on above: 1 Occurrences starting 12/09/2023 until 12/09/2024 End: 11-13-2025 Hemoglobin A1c/Hemoglobin.total in Blood Hemoglobin A1c Lab Routine Type 2 diabetes mellitus with retinopathy of both eyes, with long-term current use of insulin, macular edema presence unspecified, unspecified retinopathy severity (HCC) 1 Occurrences starting 11/12/2024 until 11/13/2025 [facility] Work Phone: Comment on above: 1 Occurrences starting 11/12/2024 until 11/13/2025 End: 06-30-2019 Hemoglobin A1c/Hemoglobin.total mass fraction (Bld) Hemoglobin A1c Routine Type 2 diabetes mellitus with retinopathy of both eyes, with long-term current use of insulin, macular edema presence unspecified, unspecified retinopathy severity (HCC) 1 Occurrences starting 06/29/2018 until 06/30/2019 [facility] Comment on above: 1 Occurrences starting 06/29/2018 until 06/30/2019 End: 10-31-2019 Hemoglobin A1c/Hemoglobin.total mass fraction (Bld) Hemoglobin A1c Routine Type 2 diabetes mellitus with retinopathy of both eyes, with long-term current use of insulin, macular edema presence unspecified, unspecified retinopathy severity (HCC) 1 Occurrences starting 10/30/2018 until 10/31/2019 [facility] Comment on above: 1 Occurrences starting 10/30/2018 until 10/31/2019 End: 07-23-2023 Hepatitis C antibody measurement Hepatitis C Antibody Lab Routine Type 2 diabetes mellitus with retinopathy of both eyes, with long-term current use of insulin, macular edema presence unspecified, unspecified retinopathy severity (HCC) 1 Occurrences starting 07/23/2022 until 07/23/2023 [facility] Comment on above: 1 Occurrences starting 07/23/2022 until 07/23/2023 LEFT HEART CATH W/GRAFTS LEFT HEART CATH W/GRAFTS Abnormal stress test Coronary artery disease, unspecified vessel or lesion type, unspecified whether angina present, unspecified whether [place] or transplanted heart [facility] Leukocytes [#/volume ] in Blood [facility] Leukocytes [#/volume ] in Blood [facility] Leukocytes [#/volume ] in Blood [facility] Leukocytes [#/volume ] in Blood [facility] Leukocytes [#/volume ] in Blood [facility] Leukocytes [#/volume ] in Blood [facility] Leukocytes [#/volume ] in Blood [facility] End: 06-30-2019 Lipid 1996 panel Lipid Panel Routine Type 2 diabetes mellitus with retinopathy of both eyes, with long-term current use of insulin, macular edema presence unspecified, unspecified retinopathy severity (HCC) 1 Occurrences starting 06/29/2018 until 06/30/2019 [facility] Comment on above: 1 Occurrences starting 06/29/2018 until 06/30/2019 End: 03-01-2020 Lipid 1996 panel Lipid Panel Lab Routine Type 2 diabetes mellitus with retinopathy of both eyes, with long-term current use of insulin, macular edema presence unspecified, unspecified retinopathy severity (HCC) 1 Occurrences starting 03/01/2019 until 03/01/2020 [facility] Comment on above: 1 Occurrences starting 03/01/2019 until 03/01/2020 End: 12-16-2021 Lipid 1996 panel - Serum or Plasma Lipid Panel Lab Routine Essential hypertension Hypercholesterolemia 1 Occurrences starting 12/16/2020 until 12/16/2021 [facility] Comment on above: 1 Occurrences starting 12/16/2020 until 12/16/2021 Lipid 1996 panel - Serum or Plasma Lipid Panel Lab Routine Essential hypertension Hypercholesterolemia 12/17/2020 7:57 AM EDT [facility] End: 11-28-2024 Lipid 1996 panel - Serum or Plasma Lipid Panel Lab Routine Type 2 diabetes mellitus with other circulatory complication, with long-term current use of insulin (HCC) 1 Occurrences starting 11/29/2023 until 11/28/2024 [facility] Work Phone: Comment on above: 1 Occurrences starting 11/29/2023 until 11/28/2024 End: 11-08-2018 Lipid panel Lipid Panel Routine Type 2 diabetes mellitus with retinopathy of both eyes, with long-term current use of insulin, macular edema presence unspecified, unspecified retinopathy severity (HCC) 1 Occurrences starting 11/07/2017 until 11/08/2018 [facility] Mean corpuscular hemoglobin concentration determination [facility] Mean corpuscular hemoglobin concentration determination [facility] Mean corpuscular hemoglobin concentration determination [facility] Mean corpuscular hemoglobin concentration determination [facility] Mean corpuscular hemoglobin concentration determination [facility] Mean corpuscular hemoglobin concentration determination [facility] Mean corpuscular hemoglobin concentration determination [facility] Mean corpuscular hemoglobin determination [facility] Mean corpuscular hemoglobin determination [facility] Mean corpuscular hemoglobin determination [facility] Mean corpuscular hemoglobin determination [facility] Mean corpuscular hemoglobin determination [facility] Mean corpuscular hemoglobin determination [facility] Mean corpuscular hemoglobin determination [facility] Measurement of renal function [facility] Measurement of renal function [facility] Measurement of renal function [facility] Measurement of renal function [facility] Measurement of renal function [facility] Measurement of renal function [facility] Measurement of renal function [facility] Measurement of renal function [facility] End: 12-16-2021 Microalbumin measurement, urine, quantitative Microalbumin, Urine, Random Lab Routine Essential hypertension 1 Occurrences starting 12/16/2020 until 12/16/2021 [facility] Comment on above: 1 Occurrences starting 12/16/2020 until 12/16/2021 Microalbumin measurement, urine, quantitative Microalbumin, Urine, Random Lab Routine Essential hypertension 12/17/2020 8:01 AM EDT [facility] End: 07-23-2023 Microalbumin measurement, urine, quantitative Microalbumin/Creatinine Ratio, UR Random Lab Routine Type 2 diabetes mellitus with retinopathy of both eyes, with long-term current use of insulin, macular edema presence unspecified, unspecified retinopathy severity (HCC) 1 Occurrences starting 07/23/2022 until 07/23/2023 [facility] Work Phone: Comment on above: 1 Occurrences starting 07/23/2022 until 07/23/2023 Neutrophil count [facility] Neutrophil count [facility] Neutrophil count [facility] Neutrophil count [facility] Neutrophil count [facility] Neutrophil count [facility] Neutrophil count [facility] Neutrophil percent differential count [facility] Neutrophil percent differential count [facility] Neutrophil percent differential count [facility] Neutrophil percent differential count [facility] Neutrophil percent differential count [facility] Neutrophil percent differential count [facility] Neutrophil percent differential count [facility] Platelets [#/volume] in Blood [facility] Platelets [#/volume] in Blood [facility] Platelets [#/volume] in Blood [facility] Platelets [#/volume] in Blood [facility] Platelets [#/volume] in Blood [facility] Platelets [#/volume] in Blood [facility] Platelets [#/volume] in Blood [facility] Potassium measurement [facility] Potassium measurement [facility] Potassium measurement [facility] Potassium measurement [facility] Potassium measurement [facility] Potassium measurement [facility] Potassium measurement [facility] Potassium measurement [facility] End: 12-02-2019 Radionuclide myocardial perfusion study NM Myocardial Perfusion Multiple SPECT Imaging Routine Coronary artery disease involving [place] heart without angina pectoris, unspecified vessel or lesion type Chest pain, unspecified type 1 Occurrences starting 12/01/2018 until 12/02/2019 [facility] Comment on above: 1 Occurrences starting 12/01/2018 until 12/02/2019 Red blood cell count [facility] Red blood cell count [facility] Red blood cell count [facility] Red blood cell count [facility] Red blood cell count [facility] Red blood cell count [facility] Red blood cell count [facility] Red cell distributio n width determination [facility] Red cell distributio n width determination [facility] Red cell distributio n width determination [facility] Red cell distributio n width determination [facility] Red cell distributio n width determination [facility] Red cell distributio n width determination [facility] Red cell distributio n width determination [facility] Serum chloride measurement [facility] Serum chloride measurement [facility] Serum chloride measurement [facility] Serum chloride measurement [facility] Serum chloride measurement [facility] [facility] Serum chloride measurement [facility] Serum chloride measurement [facility] Serum chloride measurement [facility] Sodium measurement [facility] Sodium measurement [facility] Sodium measurement [facility] Sodium measurement [facility] Sodium measurement [facility] Sodium measurement [facility] Sodium measurement [facility] Sodium measurement [facility] End: 12-01-2019 Standard chest X-ray XR Chest AP/PA and LAT Imaging Routine Chest pain, unspecified type 1 Occurrences starting 12/01/2018 until 12/01/2019 [facility] Comment on above: 1 Occurrences starting 12/01/2018 until 12/01/2019 End: 06-30-2019 T4 free mass conc T4, Free Routine Type 2 diabetes mellitus with retinopathy of both eyes, with long-term current use of insulin, macular edema presence unspecified, unspecified retinopathy severity (HCC) 1 Occurrences starting 06/29/2018 until 06/30/2019 [facility] Comment on above: 1 Occurrences starting 06/29/2018 until 06/30/2019 End: 12-16-2021 Thyrotropin [Units/volume] in Serum or Plasma TSH with Reflex Free T4 Lab Routine Essential hypertension 1 Occurrences starting 12/16/2020 until 12/16/2021 [facility] Comment on above: 1 Occurrences starting 12/16/2020 until 12/16/2021 Thyrotropin [Units/volume] in Serum or Plasma TSH with Reflex Free T4 Lab Routine Essential hypertension 12/17/2020 7:57 AM EDT [facility] End: 01-22-2024 Thyrotropin [Units/volume] in Serum or Plasma TSH with Reflex Free T4 Lab Routine Diarrhea, unspecified type 1 Occurrences starting 01/21/2023 until 01/22/2024 [facility] Comment on above: 1 Occurrences starting 01/21/2023 until 01/22/2024 Thyrotropin [Units/volume] in Serum or Plasma TSH with Reflex Free T4 Lab Routine Diarrhea, unspecified type 01/21/2023 10:37 AM EDT [facility] End: 12-09-2024 Thyrotropin [Units/volume] in Serum or Plasma TSH Lab Routine Type 2 diabetes mellitus with retinopathy of both eyes, with long-term current use of insulin, macular edema presence unspecified, unspecified retinopathy severity (HCC) 1 Occurrences starting 12/09/2023 until 12/09/2024 [facility] Comment on above: 1 Occurrences starting 12/09/2023 until 12/09/2024 End: 06-30-2019 Thyrotropin Qn TSH Routine Type 2 diabetes mellitus with retinopathy of both eyes, with long-term current use of insulin, macular edema presence unspecified, unspecified retinopathy severity (HCC) 1 Occurrences starting 06/29/2018 until 06/30/2019 [facility] Comment on above: 1 Occurrences starting 06/29/2018 until 06/30/2019 End: 11-08-2018 Thyroxine (T4) free T4, Free Routine Type 2 diabetes mellitus with retinopathy of both eyes, with long-term current use of insulin, macular edema presence unspecified, unspecified retinopathy severity (HCC) 1 Occurrences starting 11/07/2017 until 11/08/2018 [facility] End: 02-10-2018 Thyroxine (T4) free T4, Free Routine Type 2 diabetes mellitus with retinopathy, with long-term current use of insulin, macular edema presence unspecified, unspecified laterality, unspecified retinopathy severity (HCC) Hypercholesterolemia Essential hypertension 1 Occurrences starting 02/09/2017 until 02/10/2018 [facility] Work Phone: End: 12-09-2024 Thyroxine (T4) free [Mass/volume] in Serum or Plasma T4, Free Lab Routine Type 2 diabetes mellitus with retinopathy of both eyes, with long-term current use of insulin, macular edema presence unspecified, unspecified retinopathy severity (HCC) 1 Occurrences starting 12/09/2023 until 12/09/2024 [facility] Comment on above: 1 Occurrences starting 12/09/2023 until 12/09/2024 End: 01-22-2024 Tissue transglutaminase IgA measurement Tissue Transglutaminase, IgA Lab Routine Diarrhea, unspecified type 1 Occurrences starting 01/21/2023 until 01/22/2024 [facility] Work Phone: Comment on above: 1 Occurrences starting 01/21/2023 until 01/22/2024 Tissue transglutamin ase IgA measurement Tissue Transglutaminase, IgA Lab Routine Diarrhea, unspecified type 01/21/2023 10:37 AM EDT [facility] End: 04-02-2026 Transesophageal echocardiography Echocardiogram transesophageal Echocardiography Routine Sepsis, due to unspecified organism, unspecified whether acute organ dysfunction present (HCC) 1 Occurrences starting 01/30/2025 until 04/02/2026 [facility] Work Phone: Comment on above: 1 Occurrences starting 01/30/2025 until 04/02/2026 End: 11-08-2018 TSH TSH Routine Type 2 diabetes mellitus with retinopathy of both eyes, with long-term current use of insulin, macular edema presence unspecified, unspecified retinopathy severity (HCC) 1 Occurrences starting 11/07/2017 until 11/08/2018 [facility] End: 03-01-2020 TSH Qn TSH Lab Routine Type 2 diabetes mellitus with retinopathy of both eyes, with long-term current use of insulin, macular edema presence unspecified, unspecified retinopathy severity (HCC) 1 Occurrences starting 03/01/2019 until 03/01/2020 [facility] Comment on above: 1 Occurrences starting 03/01/2019 until 03/01/2020 End: 01-31-2020 Ultrasound abdominal aorta duplex limited Ultrasound abdominal aorta duplex limited Vascular Ultrasound Routine Prominent abdominal aortic pulse 1 Occurrences starting 12/01/2018 until 01/31/2020 [facility] Comment on above: 1 Occurrences starting 12/01/2018 until 01/31/2020 End: 03-17-2023 Ultrasound ankle / brachial indices extremity complete Ultrasound ankle / brachial indices extremity complete Vascular Ultrasound Routine PAD (peripheral artery disease) (HCC) 1 Occurrences starting 01/14/2022 until 03/17/2023 [facility] Work Phone: Comment on above: 1 Occurrences starting 01/14/2022 until 03/17/2023 Urea nitrogen [Mass/volume] in Serum or Plasma [facility] Urea nitrogen [Mass/volume] in Serum or Plasma [facility] Urea nitrogen [Mass/volume] in Serum or Plasma [facility] Urea nitrogen [Mass/volume] in Serum or Plasma [facility] Urea nitrogen [Mass/volume] in Serum or Plasma [facility] Urea nitrogen [Mass/volume] in Serum or Plasma [facility] Urea nitrogen [Mass/volume] in Serum or Plasma [facility] Urea nitrogen [Mass/volume] in Serum or Plasma [facility] End: 02-09-2024 US Doppler ankle/brachial index US Doppler ankle/brachial index Vascular Ultrasound Routine Atherosclerosis of [place] arteries of extremities with intermittent claudication, bilateral legs (HCC) PAD (peripheral artery disease) (HCC) 1 Occurrences starting 12/09/2022 until 02/09/2024 [facility] Work Phone: Comment on above: 1 Occurrences starting 12/09/2022 until 02/09/2024 End: 03-28-2025 US Doppler ankle/brachial index US Doppler ankle/brachial index Vascular Ultrasound Routine Atherosclerosis of [place] arteries of extremities with intermittent claudication, bilateral legs (HCC) PAD (peripheral artery disease) (HCC) 1 Occurrences starting 01/26/2024 until 03/28/2025 [facility] Work Phone: Comment on above: 1 Occurrences starting 01/26/2024 until 03/28/2025 Immunizations Immunization Date Immunization Notes Care Provider Fa [facility] 06-14-2022 PFIZER-BIONT[employer]Bridge COVI D-19 VACCINE BIVALENT BOOSTER (12+) Vivien Foreman MD Work Phone: [facility] 06-14-2022 COVID-19 vac, bv, Pfizer,,PF, (PFIZER COVID-10 BIVALENT VACCINE) injection Vivien Foreman MD Work Phone: [facility] 04-22-2022 Influenza High-Dose Quadrivalent Dr. Gaetano Menendez MD Work Phone: [facility] 04-22-2022 influenza virus vacc ine, unspecified formulation Bessrobby Aguilars RD [facility] 12-10-2021 Covid (Pfizer) Dr. Gaetano Menendez MD Work Phone: [facility] 12-10-2021 Pfizer 12+ Years inocente-sucrose COVID-19 vaccine Preston Healy MD Work Phone: [facility] 07-07-2021 zoster vaccine recombinant Preston Healy MD Work Phone: [facility] 06-13-2021 Covid (Moderna) Dr. Gaetano Menendez MD Work Phone: [facility] 06-12-2021 Influenza IIV4 high dose 65 and Older Vivien Foreman MD Work Phone: [facility] 06-12-2021 influenza, high dose seasonal, preservative-free Vivien Foreman MD Work Phone: [facility] 06-12-2021 flu vacc [id number] 5yr up,-PF (FLUZONE HIGH-DOSE) syringe Vivien Foreman MD Work Phone: [facility] 03-03-2021 zoster vaccine recombinant Vivien Foreman MD Work Phone: [facility] 03-02-2021 varicella-zoster gE (SHINGRIX-KIT) 0.5 mL Vivien Foreman MD Work Phone: [facility] 01-05-2021 pneumococcal conjuga te vaccine, 13 valent Vivien Foreman MD Work Phone: [facility] 01-05-2021 pneumococcal vaccine , unspecified formulation Vivien Foreman MD Work Phone: [facility] 10-16-2020 Moderna SARS-CoV-2 Vaccination Preston Healy MD Work Phone: [facility] 09-18-2020 Moderna SARS-CoV-2 Vaccination Preston Healy MD Work Phone: [facility] 04-18-2020 Influenza IIV4 high dose 65 and Older Vivien Foreman MD Work Phone: [facility] 04-18-2020 influenza, high dose seasonal, preservative-free Vivien Foreman MD Work Phone: [facility] 04-14-2015 influenza, injectabl e, quadrivalent, preservative free Dr. Gaetano Menendez MD Work Phone: [facility] 04-14-2015 influenza, seasonal, injectable Vivien Foreman MD Work Phone: [facility] 09-05-2012 pneumococcal polysaccharide vaccine, 23 valent Vivien Foreman MD Work Phone: [facility] 03-18-2011 tetanus toxoid, redu hazel diphtheria toxoid, and acellular pertussis vaccine, adsorbed Vivien Foreman MD Work Phone: [facility] 04-10-2008 influenza virus vacc ine, unspecified formulation Vivien Foreman MD Work Phone: [facility] 04-10-2008 influenza virus vacc ine, whole virus Preston Healy MD Work Phone: [facility] 04-10-2008 influenza, injectabl e, quadrivalent, preservative free Dr. Gaetano Menendez MD Work Phone: [facility] 04-10-2004 pneumococcal conjuga te vaccine, 7 valent Yun Darnell RN [facility] 04-10-2004 pneumococcal Conjuga te, unspecified formulation Vivien Foreman MD Work Phone: [facility] Payers Date Payer Category Payer Self-pay 2015 Managed Care (unspecified) [id number] 2015 Private Health Insurance HUMANA HUMANA OTHER AFTER MEDICARE xxxxxxxxx 2015-Present xxxxxxxxx [id number] 2015 Private Health Insurance [id number] 2015 Private Health Insurance HUMANA HUMANA OTHER AFTER MEDICARE [id number] 2015-Present [phone] [place] [id number] [id number] .[id number] 2015 Private Health Insurance [id number] 2.16.840.1.306538.3.249.1 3 2009 Medicare [id number] 2.16.840.1.039177.3.249.1 3 2009 Medicare MEDICARE MEDICAR E PART A & B xxxxxxxxxxx 2009-Present [place] xxxxxxxxxxx [id number] 2009 Medicare [id number] 1.2.840.362945.1.13.385.2 .7.3.527404.315 2009 Medicare [id number]. 1.13.385.2 .7.3.848779.315 2009 Medicare [id number] 1945 Unknown [id number] 2.16840.1.559659.3.579.2 .356 1944 Unknown [id number] 2.16840.1.327511.3.579.2 .356 1944 Unknown [id number] 2.16840.1.261879.3.579.2 .356 1944 Unknown [id number] 2.840.1.419343.3.579.2 .356 1944 Unknown [id number] 2.840.1.918449.3.579.2 .594 1944 Unknown [id number] 2.840.1.675078.3.579.2 .594 1944 Unknown [id number] 2.16840.1.735452.3.579.2 .903 1944 Unknown [id number] 2.840.1.618041.3.579.2 .903 1944 Unknown [id number] 2.16840.1.896868.3.579.2 .903 1944 Unknown [id number] 2.16840.1.373369.3.579.2 .903 1944 Unknown [id number] 2.16840.1.628716.3.579.2 .903 1944 Unknown [id number] 2.16840.1.007839.3.579.2 .903 1944 Unknown [id number] 2.16.840.1.328197.3.579.2 .1944 Unknown [id number] 2..840.1.847153.3.579.2 1944 Unknown [id number] 2..840.1.520857.3.579.2 1944 Unknown [id number] 2.840.1.711883.3.579.2 1944 Unknown [id number] 2.840.1.484062.3.579.2 1944 Unknown [id number] 2.840.1.431333.3.579.2 1944 Unknown [id number] 2.840.1.620661.3.579.2 1944 Unknown [id number] 2.840.1.387838.3.579.2 1944 Unknown [id number] 2.840.1.635809.3.579.2 1944 Unknown [id number] 2.840.1.375840.3.579.2 1944 Unknown [id number] 2.840.1.489837.3.579.2 1944 Unknown [id number] 2.840.1.811864.3.579.2 1944 Unknown [id number] 2.840.1.210313.3.579.2 1944 Unknown [id number] 2.16.840.1.207506.3.579.2 1944 Unknown [id number] 2.840.1.642928.3.579.2 1944 Unknown [id number] 2.16.840.1.166759.3.579.2 .903 1944 Unknown [id number] 2.16.840.1.037819.3.579.2 .903 1944 Unknown [id number] 2.16.840.1.382441.3.579.2 .903 1944 Unknown [id number] 2.16.840.1.977070.3.579.2 .903 Unknown [id number] 2.16.840.1.208211.3.579.2 .462 Unknown [id number] 2.16.840.1.737325.3.579.2 .462 Unknown [id number] 2.16.840.1.838552.3.579.2 .462 Social History Date Type Detail Facility Start: 11-28-2017 End: 01-26-2024 Tobacco smoking status ILIS Former smoker [facility] Start: 08-27-1961 End: 08-27-1973 History of tobacco use Current smoker [facility] Work Phone: Start: 11-28-2017 End: 02-05-2025 Cigarettes smoked current (pack per day) - Reported [facility] Start: 1945 Sex Assigned At Not on file [facility] Work Phone: Start: 10-27-2015 End: 07-29-2019 Alcohol intake Current non-drinker of alcohol (finding) [facility] Start: 12-15-2015 End: 05-12-2020 Tobacco use and exposure Never used [facility] Start: 10-02-2021 End: 07-23-2022 Exposure to SARS-CoV-2 (event) Not sure [facility] Start: 12-16-2020 End: 12-17-2020 Tobacco use and exposure Current user [facility] History of tobacco use Chews Tobacco [facility] Start: 12-17-2020 End: 02-07-2025 Alcohol intake Ex-drinker (finding) [facility] Start: 01-09-2021 End: 01-26-2024 Tobacco use and exposure Former user [facility] Exposure to SARS-CoV -2 (event) Unable to assess [facility] Start: 08-27-1961 End: 08-27-1973 History of tobacco use [facility]igarette [facility] Start: 06-14-2022 History SDOH Social Connections Get Together 2 [facility] Start: 06-14-2022 History SDOH Financial [address] [facility] Start: 06-14-2022 History SDOH Food Worry 1 [facility] Start: 06-14-2022 End: 02-05-2025 Social connection and isolation panel [facility] Frequency of Communication with Friends and Family Not on file [facility] (I/We) worried wheth er (my/our) food would run out before (I/we) got money to buy more. Never true [facility] Start: 12-16-2020 Gender identity Identifies as male gender (finding) [facility] Start: 12-16-2020 Sexual orientation Heterosexual (finding) [facility] Start: 11-28-2022 End: 12-08-2022 Exposure to SARS-CoV-2 (event) Yes [facility] In the past 12 month s, was there a time when you were not able to pay the mortgage or rent on time? No [facility] Start: 1945 Sex Assigned At Male [facility] Medical Equipment Procedure Code Equipment Code Equipment Origin al Text Equipment Identifier Dates E11.65 Use as directed 4 times per day. [id number] Start: 01-05-2016 Dx code E11.9 us e to check BG 4x daily. [id number] Start: 01-05-2016 End: 06-06-2024 Use as directed QID. [id number] Star t: 09-26-2015 Use to check BG QID SolusV2 brand Dx E11.65. [id number] Start: 09-23-2015 Use as directed 4 times daily. . [id number] Start: 06-29-2018 End: 12-09-2023 Use as directed TID. [id number] Star t: 09-23-2015 End: 06-29-2018 Diag code E11.31 9 Use 4 times daily . [id number] Start: 10-30-2018 End: 06-15-2021 Use as directed QID . [id number] Start: 12-10-2021 Use to check BG 4x daily E 11.65. [id number] Start: 09-30-2015 End: 01-05-2016 Use as directed 4 times daily. . [id number] Start: 12-09-2023 End: 05-18-2024 Use as directed 4 times daily. . [id number] Start: 05-18-2024 Goals Date Patient Goal Desired [...] Nutritional Foundations and Clinical Applications. 7th ed. [place], [place]: Franky, 2020:1-16. Notes: Functional Status Date Assessment Result Facility 02-19-2025 Functional status [facility] Work Phone: 02-18-2025 Functional status Tolerates Activity Fair [facility] Work Phone: Mental Status Date Assessment Result Facility 02-18-2025 Cognitive function Voice/Name [facility] Work Phone: 02-18-2025 Cognitive function Voice/Name;Touch/Shaki ng [facility] Work Phone: Clinical Notes 12-16-2020 to 02-21-2025 Darrell Norman CNP - 02/21/2025 9:13 AM EDT Note Date & Type Note Facility 02-21-2025 Note [facility] 02-21-2025 History of Presen t illness Narrative I called patient today to follow-up but not available to answer. Also called his friend Loretta but no answer. Voicemail was dropped to call the clinic as soon as possible for reevaluation. documented in this encounter [facility] 02-18-2025 Consult note Note Date/Time February 18, 2025 2:17pm [facility] Medical Records Department [address] [place] [address] Anesthesia Postop Eval II 08/06/04 1417 MR#: [id number] Acct: [id number] Name: ANDREW ARNOLD Rep #:[id number] : 1945 79 From: Yun summers CRNA PCP: VIVIEN FOREMAN MD Status:REG SDC Y Race: C Location: [place] [address] Anesthesia Postop Eval I Sum Postop Eval [...] Signature: Date CC: ~ Signed [facility] Work Phone: 1(918) 476-342608-11-2025 Consult note Author Anatoliy Mtz [facility] Note Date/Time February 18, 2025 1: 45pm [facility] Medical Records Department [address] [place] [address] Anesthesia Postop Eval I 02/18/25 1320 MR#: [id number] Acct: [id number] Name: ANDREW ARNOLD Rep #:[id number] : 1945 79 From: Anatoliy Mtz PCP: VIVIEN FOREMAN MD Status:REG SDC Y Race: C Location: [place] [address] Anesthesia: Postop Eval I Current Vital Signs [...] Signature: Date CC: ~ Signed [facility] Work Phone: 1(748) 472-463808-11-2025 History and physical note Author Kali Friend [facility] Note Date/Time February 18, 2025 12 :51pm [facility] Medical Records Department [address] [place] [address] History & Physical Exam 02/18/25 1249 MR#: [id number] Acct: [id number] Name: ANDREW ARNOLD Veda Rep #:[id number] : 1945 79 From: Kali Gar DO PCP: VIVIEN FOREMAN MD Status:REG [facility] Location: [place] [address] HPI - General General Date of Admission: [...] tract for possible upper GI bleed. [facility] Medical History History of subdural hematoma TIA [...] bisacodyl 10 mg rectal suppository 10 mg [place] DAILY PRN constipation 02/18/25 Unknown History insulin [...] MD; Kali Gar DO~ Signed [facility] Work Phone: 1(867) 806-247108-11-2025 Consult note Author Leo Cassidy [facility] Note Date/Time February 18, 2025 12 :48pm [facility] Medical Records Department [address] [place] [address] Pre-Anesthesia Evaluation 02/18/25 1238 MR#: [id number] Acct: [id number] Name: ANDREW ARNOLD Rep #:[id number] : 1945 79 From: Leo Cassidy MD PCP: VIVIEN FOREMAN MD Status:REG SD Y Race: C Location: [place] [address] ASA Classification* ASA Classification ASA Classification: 3 [...] Procedure(s): Esophagogastroduodenoscopy Anesthesia History 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 Hx Hospitalization Any Problems With Anesthesia Cholinesterase [...] take am of surgery PONV 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: 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 Female HX of Motion Sickness HX of N/V After Surgery Non-Smoker Duration of Surgery greater than 60 minutes Number of Risk Factors PONV Score Height & Weight Height & Weight: Anesthesia: Height & Weight Height 5 ft 7 in 02/18/25 12:18 Weight: 97.522 kg 02/18/25 12:18 Body Mass Index (BMI) 33.6 02/18/25 12:18 Respiratory Assessment 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: Respiratory Tract Infection 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 Hx Respiratory Tract Infection Any additional information?: Yes Hx Respiratory Tract Infection: No STOP Sleep Apnea STOP Sleep Apnea - 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: STOP Sleep Apnea - 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 Hx Hypertension No 02/12/25 08:40 Hx Sleep [...] Tobacco Use History Tobacco Use History - 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 Specify any problems Hx of Preganancy in last 3 Months Nurse Filling Out Transfusion & Questions: Date: Time: Patient unable to answer at this time (ie. 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 Hx Now Gestational Age (in weeks): EDC: [...] bisacodyl 10 mg rectal suppository 10 mg [place] DAILY PRN constipation 02/18/25 Unknown History insulin [...] Signature: Date CC: ~ Signed [facility] Work Phone: 1(784) 924-178608-11-2025 Consult note [facility] Medical Records Department [address] [place] [address] Anesthesia Postop Eval II 02/18/25 1417 MR#: [id number] Acct: [id number] Name: ANDREW ARNOLD Veda Rep #:[id number] : 1945 79 From: Yun summers CRNA PCP: VIVIEN FOREMAN MD Status:REG [facility] Y Race: C Location: [place] [address] Anesthesia Postop Eval I Sum Postop Eval [...] Complications Anesthesia Complication: No 02/18/25 1417 maribel CONTACT LENS MANUFACTURER> Date _ Yun Sekou CONTACT LENS MANUFACTURER Cosigner Signature: Date CC: ~ Signed [facility]08-11-2025 Consult note [facility] Medical Records Department [address] [place] [address] Anesthesia Postop Eval I 02/18/25 1320 MR#: [id number] Acct: [id number] Name: ANDREW ARNOLD Rep #:[id number] : 1945 79 From: Anatoliy Mtz PCP: VIVIEN FOREMAN MD Status:REG [facility] Y Race: C Location: [place] [address] Anesthesia: Postop Eval I Current Vital Signs [...] Signature: Date CC: ~ Signed [facility]-11-2025 Procedure note [facility] Medical Records Department [address] [place] [address] EGD Report MR#: [id number] Acct: [id number] Name: ANDREW ARNOLD Rep #:[id number] : 1945 79 From: Kali Gar DO PCP: VIVIEN FOREMAN MD Status:REG [facility] Patient Name: Andrew Arnold Procedure Date: 02/18/2025 [...] 8 weeks Procedure Code(s): --- Professional --- 20388, 59, Small intestinal endoscopy, enteroscopy beyond second portion of duodenum, not including ileum; with control of bleeding (eg, injection, bipolar cautery, unipolar cautery, laser, heater probe, stapler, plasma director graphics) [address], 51, Small intestinal endoscopy, enteroscopy beyond second portion of duodenum, not including ileum; with biopsy, single or multiple CPT copyright 2021 [employer]. All rights reserved. The codes documented in this report are preliminary and upon thread cutter review may be revised to meet current compliance requirements. Kali Gar DO 02/18/2025 1:18:51 PM This report has been signed electronically. Number of Addenda: 0 Note Initiated On: 02/18/2025 1:00 PM 02/18/25 1318 Date _ Kali Gar DO Cosigner Signature: Date (if indicated) CC: VIVIEN FOREMAN MD; Kali Gar DO ~ Date Dictated: 02/18/25 1300 Date Transcribed: Cartridge Maker: RF Signed [facility]08-11-2025 Procedure note [facility] Medical Records Department [address] [place] [address] Provation Physician Letter MR#: [id number] Acct: [id number] Name: ANDREW ARNOLD Rep #:[id number] : 1945 79 From: Kali Gar DO PCP: VIVIEN FOREMAN MD Status:[facility] 02/18/2025 Vivien Foreman Md Re : Upper [...] ~ Date Dictated: 02/18/25 1300 Date Transcribed: Cartridge Maker: RF Signed [facility]08-11-2025 History and physical note [facility] Medical Records Department [address] [place] [address] History & Physical Exam 02/18/25 1249 MR#: [id number] Acct: [id number] Name: ANDREW ARNOLD Rep #:[id number] : 1945 79 From: Kali Gar DO PCP: VIVIEN FOREMAN MD Status:[facility] Location: [place] [address] HPI - General General Date of Admission: [...] tract for possible upper GI bleed. [facility] Medical History History of subdural hematoma TIA [...] bisacodyl 10 mg rectal suppository 10 mg [place] DAILY PRN constipation 02/18/25 Unknown History insulin [...] MD; Kali Gar DO~ Signed [facility]08-11-2025 [facility] Medical Records Department [address] [place] [address] History Physical Exam 02/18/25 1249 MR#: [id number] Acct: [id number] Name: ANDREW ARNOLD Rep #: [id number] : 1945 79 From: Kali Gar DO PCP: VIVIEN FOREMAN MD Status:REG [facility] Location: [place] [address] HPI - General General Date of Admission: [...] tract for possible upper GI bleed. [facility] Medical History History of subdural hematoma TIA [...] 5 mg tablet 5 mg PO DAILY [facility] 5 02/17/25 History metoprolol succinate 25 mg 25 mg PO DAILY [facility] 02/17/25 History tablet,extended release 24 hr [...] bisacodyl 10 mg rectal suppository 10 mg [place] DAILY PRN constipation 02/18/25 Unknown History insulin [...] stools, melena (more content not included)...[facility]08-11-2025 Consult note [facility] Medical Records Department [address] [place] [address] Pre-Anesthesia Evaluation 02/18/25 1238 MR#: [id number] Acct: [id number] Name: ANDREW ARNOLD Rep #:[id number] : 1945 79 From: Leo Cassidy MD PCP: VIVIEN FOREMAN MD Status:REG [facility] Y Race: C Location: [place] [address] ASA Classification* ASA Classification ASA Classification: 3 [...] Procedure(s): Esophagogastroduodenoscopy Anesthesia History 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 Hx Hospitalization Any Problems With Anesthesia Cholinesterase [...] take am of surgery PONV 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: 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 Female HX of Motion Sickness HX of N/V After Surgery Non-Smoker Duration of Surgery greater than 60 minutes Number of Risk Factors PONV Score Height & Weight Height & Weight: Anesthesia: Height & Weight Height 5 ft 7 in 02/18/25 12:18 Weight: 97.522 kg 02/18/25 12:18 Body Mass Index (BMI) 33.6 02/18/25 12:18 Respiratory Assessment 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: Respiratory Tract Infection 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 Hx Respiratory Tract Infection Any additional information?: Yes Hx Respiratory Tract Infection: No STOP Sleep Apnea STOP Sleep Apnea - 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: STOP Sleep Apnea - 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 Hx Hypertension No 02/12/25 08:40 Hx Sleep [...] Tobacco Use History Tobacco Use History - 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 Specify any problems Hx of Preganancy in last 3 Months Nurse Filling Out Transfusion & Questions: Date: Time: Patient unable to answer at this time (ie. 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 Per Dr Cooper the sutures can be removed on 02-22-25 and apply a dry sterile dressing. He would like to seehim in the office when he gets home. I have tentatively made him an appointment on 03-01-25. documented in this [id number] NotePatient not available to answer calls a voicemail was dropped to call the clinic if there is any question or concerns.. AUTHENTICATED BY DARRELL NORMAN, ON 02/15/2025 14:36:[address] [place] [address] 02-15-2025 History of Present illness Narrative* Darrell Norman CNP - 02/15/2025 2:35 PM EDT Patient not available to answer calls a voicemail was dropped to call the clinic if there is any question or concerns.. documented in this [id number] Evaluation note* Diagnosis Onset Date Resolution Status [...] in stool acute February 11:57am [facility] Work Phone: 1(794) 772-612208-02-2025 [facility] Medical Records Department [address] [place] [address] History Physical Exam 02/09/25 1804 MR#: [id number] Acct: [id number] Name: ANDREW ARNOLD Rep #: [id number] : 1945 79 From: Gaetano Menendez MD PCP: VIVIEN FOREMAN MD Status:ADM IN Location: [place] [address] HPI - General General Date of Admission: 02/09/25 Date of Service: 02/11/25 Chief Complaint: Here for rehabilitation. HPI Narrative ANDREW ARNOLD, is a 79 Male who presents with followin01/28/2025 Admit [facility] with malaise, tachycardia, after left ganglion cyst [...] to discharge home with significant other. [facility] Medical History History of subdural hematoma TIA [...] succinate 25 mg 25 mg PO DAILY [facility] Unknown History tablet,extended release 24 hr pantoprazole 40 (more content not included)...[facility] 02-09-2025 [facility]08-02-2025 History of Present illness Narrative * Kunal Norman MD - 02/09/2025 3:00 PM EDT Patient Name: Andrew Arnold Admit Date: 7200815 MR #: [id number] : 1945 Physicians: Vivien Foreman MD (Family); [...] excoriations Musculoskeletal: No joint swelling, non tender FUNERAL PROFESSIONAL: Awake, and Ox3, Wound: Left wrist area [...] of breath Elevated troponin DKA (diabetic ketoacidosis) ([facility]) Relevant Medications insulin regular (Humulin R, [...] 81 mg, 81 mg, Oral, Daily, Oren Mireles, , 81 mg at 02/09/25 0822 bumetanide [...] 4 mg, Intravenous, Q6H PRN, Dominga Muñiz, MOLD COOLER, 4 mg at01/29/25 1538 oxyCODONE (ROXICODONE) immediate [...] 02/09/2025 1:40 PM EDT Report called to [facility]. All questions answered. * Lin Tarn RN - 02/09/2025 8:16 AM EDT Care Management Progress Note Date: 02/09/2025 Time: 8:16 AM Patient Name: Andrew Arnold Date of : 1945 Discharge Plan: D/C Disposition: Swing Bed Final D/C Agency/Destination: Other ([facility] SNF (Swing Bed)) HME: None Reason for Choice: Patient/Family preference Regulatory Documentation: Medicare IM Regulatory Documentation Status: Certified Plan A: [facility] Facility Plan A : Post Acute Patient Choice 1: Other ([facility] bed) Patient Paper Copy: Patient declined paper copy Discharging Transportation Plan: Transportation Type: Ambulance Transportation Company/Agency Name: [facility] Discharge Plan Status: IPR Assessment and Background Information: Virtual Care Management Discharge planning IPR Secure chat to medical team with transport time. [phone] Faxed to [facility] the day of discharge bundle * Kunal Norman MD - 02/08/2025 2:59 PM EDT Patient Name: Andrew Arnold Admit Date: 7200815 MR #: [id number] : 1945 Physicians: Vivien Foreman MD (Family); [...] excoriations Musculoskeletal: No joint swelling, non tender FUNERAL PROFESSIONAL: Awake, and Ox3, Wound: Left wrist area [...] % infusion, 50 mL/hr, Intravenous, Continuous, Cindy Herrear, MOLD COOLER, Last Rate: 50 mL/hr at 02/08/25 0233, [...] hospital request: Date:02/09/25Tuesday Time:2:30pm Destination: [facility]: Inpatient Rehab [address] [place] [address] Company: [employer] ([phone]) Special needs/equipment:Oxygen Truck Type: Ambulance Companies called:Roundtrip * Mamie Del Rosario PSA - 02/08/2025 1:08 PM EDT Transport request received and is being scheduled, trip information will follow as soon as the timeis secured. * Dillan Cooper MD - 02/08/2025 11:36 AM EDT ATTENDING PHYSICIAN CANDIDA PATRICIO [facility] PRIMARY CARE PHYSICIAN VIVIEN FOREMAN MD [...] weeks for suture removal. D 02/08/2025 11:37 [id number] T 02/08/2025 12:07 MCB/MODL * Lillian Spicer [...] Lillian Spicer RDN, LD, CLC Dietitian Office: [phone] * Elli Hanna RN - 02/08/2025 11:30 AM EDT Care Management Progress Note Date: 02/08/2025 Time: 11:30 AM Patient Name: Andrew Arnold Date of : 1945 Discharge Plan: [facility] (Swing Bed) Discharging Transportation Plan: Ambulance needed Discharge Plan Status: [facility] notified [facility] that they had a bed open today, if pt can cometoday. Per medical team, pt will not be medically ready until tomorrow- stated CM could request ambulance transport for 2pm or after tomorrow. Pt and pt's SO notified. IV ATBs signed printed script faxed [facility] at [phone]. Ambulance transport request sent. 1340- Ambulance transport scheduled for tomorrow at 2:30pm, Unit nurse and medical team notified. Unit nurse is to call [phone] to give [place] report tomorrow. 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.) Cognition Arousal/Alertness: Appropriate responses to stimuli Orientation [...] hearing, Left ear, Right ear Social Interaction: [facility] Comments: Followed all commands throughout session.Pt to discharge to [place] transitional Unit 02/09/25 ADL Grooming: (declined reporting [...] Sit: Minimal assist, Head of bed elevated Cracking Machine Operator: bedrails, bed positioning mechanics Skilled Intervention Provided: monitoring patient response with activity For: efficient movement, safe use of bedrails and/or equipment, sequencing of movement Resulting In: improved performance Functional Transfers Sit to Stand: Minimal assist (from EOB) Bed to Chair Transfers: Minimal assist Cracking Machine Operator: wheeled walker Skilled Intervention Provided: verbal cues, [...] via walker Mobility Equipment: Cane ADL Equipment: Real Estate Office Supervisor Prior Level of Function Level of [place] - Transfers/Ambulation/Mobility: Independent with community ambulation (no AD) Level of [place] - ADLs: Independent (Sometimes assist for hair combing.) Level of [place] - Homemaking: (S.O. did cooking and laundry [...] Burton MD - 02/08/2025 8:36 AM EDT [facility] PROGRESS NOTE Patient Name: Andrew Arnold : 1945 Assessment and Plan Andrew Arnold is a 79 y.o. male patient of Vivien Foreman MD with history of CAD s/p CABG, atrial fibrillation on Eliquis, DM II, and mood disorder who presented to [facility] on01/28/2025 with tachycardia and generalized malaise which [...] acute distress. Family members present. He is [place]. HEENT: Head- normocephalic; Eyes- EOMI, sclera anicteric; [...] and affect, no agitation. * Chidi Murillo, ELECTRIFICATION ADVISER - 02/07/2025 2:17 PM EDT Physical Therapy PHYSICAL THERAPY TREATMENT NOTE Skilled Therapy Needs After Discharge Are therapist respiratory Therapy Services Needed After Discharge: Yes Intensity of therapist respiratory Therapy: 5 to 7 days per week Anticipated Duration of therapist respiratory Therapy: Duration 7 - 10 days Rehab [...] assist Standing Balance - Static: Moderate assist Cracking Machine Operator - Standing Static: wheeled walker Bed Mobility Supine to Sit: Moderate assist, Minimal assist Skilled Intervention Provided: facilitation, verbal cues, tactile cues, monitoring patient vital signs at rest/during/after activity, monitoring patient response with positional changes, monitoring patient response with activity For: sequencing of movement Transfers Sit to Stand: Moderate assist, Minimal assist Bed to Chair: Moderate assist, Minimal assist Cracking Machine Operator: wheeled walker Skilled Intervention Provided: verbal cues, [...] via walker Mobility Equipment: Cane ADL Equipment: Real Estate Office Supervisor Prior Level of Function Level of [place] - Transfers/Ambulation/Mobility: Independent with community ambulation (no AD) Level of [place] - ADLs: Independent (Sometimes assist for hair combing.) Level of [place] - Homemaking: (S.O. did cooking and laundry [...] Andrew Arnold Admit Date: 7200815 MR #: [id number] : 1945 Physicians: Vivein Foreman MD (Family); No ref. provider found [...] excoriations Musculoskeletal: No joint swelling, non tender FUNERAL PROFESSIONAL: Awake, and Ox3, Wound: Left wrist area [...] infusion, 50 mL/hr, Intravenous, Continuous, Cindy Herrera, MOLD COOLER, Last Rate: 50 mL/hr at 02/07/25 0617, [...] Burton MD - 02/07/2025 8:21 AM EDT [facility] PROGRESS NOTE Patient Name: Andrew Arnold : 1945 Assessment and Plan Andrew Arnold is a 79 y.o. male patient of Vivien Foreman MD with history of CAD s/p CABG, atrial fibrillation on Eliquis, DM II, and mood disorder who presented to [facility] on01/28/2025 with tachycardia and generalized malaise which [...] acute distress. Family members present. He is [place]. HEENT: Head- normocephalic; Eyes- EOMI, sclera anicteric; [...] Andrew Arnold Admit Date: 7200815 MR #: [id number] : 1945 Physicians: Vivien Foreman MD (Family); [...] excoriations Musculoskeletal: No joint swelling, non tender FUNERAL PROFESSIONAL: Awake, and Ox3, Wound: Left wrist area [...] infusion, 50 mL/hr, Intravenous, Continuous, Cindy Herrera, MOLD COOLER, Stopped at 02/02/25 0800 [Held by provider] [...] 1 tablet, 1 tablet, Oral, BID, Kiza, Oern Sherylmukiza,DO, 1 tablet at 02/06/25 0832 [Held [...] NOTE Skilled Therapy Needs After Discharge Are therapist respiratory Therapy Services Needed After Discharge: Yes Intensity of therapist respiratory Therapy: 5 to 7 days per week Anticipated Duration of therapist respiratory Therapy: Duration 7 - 10 days Rehab [...] assist Standing Balance - Static: Moderate assist Cracking Machine Operator - Standing Static: (none) Bed Mobility Supine to Sit: (pt in the bed upon arrival) Transfers Sit to Stand: Moderate assist, Minimal assist Cracking Machine Operator: (none) Skilled Intervention Provided: verbal cues, tactile [...] via walker Mobility Equipment: Cane ADL Equipment: Real Estate Office Supervisor Prior Level of Function Level of [place] - Transfers/Ambulation/Mobility: Independent with community ambulation (no AD) Level of [place] - ADLs: Independent (Sometimes assist for hair combing.) Level of [place] - Homemaking: (S.O. did cooking and laundry [...] : 1945 Discharge Plan: Possible [facility] SNF (Swing bed) Discharging Transportation Plan: Ambulance needed Discharge Plan Status: Spoke with pt at the bedside this morning, he would like referral sent to [facility] swing bed, Jennifer KOTHARI notified. Per medical team pt will possibly be medically ready for discharge on Tuesday. Pt does not require a precert. CM will continue to follow. Assessment and Background Information: * Kelly Burton MD - 02/06/2025 10:07 AM EDT [facility] PROGRESS NOTE Patient Name: Andrew Arnold : 1945 Assessment and Plan Andrew Arnold is a 79 y.o. male patient of Vivien Foreman MD with history of CAD s/p CABG, atrial fibrillation on Eliquis, DM II, and mood disorder who presented to [facility] on01/28/2025 with tachycardia and generalized malaise which [...] acute distress. Family members present. He is [place]. HEENT: Head- normocephalic; Eyes- EOMI, sclera anicteric; [...] Andrew Arnold Admit Date: 7200815 MR #: [id number] : 1945 Physicians: Vivien Foreman MD (Family); [...] excoriations Musculoskeletal: No joint swelling, non tender FUNERAL PROFESSIONAL: Awake, and Ox3, Wound: Left wrist area [...] Burton MD - 02/05/2025 11:34 AM EDT [facility] PROGRESS NOTE Patient Name: Andrew Arnold : 1945 Assessment and Plan Andrew Arnold is a 79 y.o. male patient of Vivien Foreman MD with history of CAD s/p CABG, atrial fibrillation on Eliquis, DM II, and mood disorder who presented to [facility] on01/28/2025 with tachycardia and generalized malaise which [...] acute distress. Family members present. He is [place]. HEENT: Head- normocephalic; Eyes- EOMI, sclera anicteric; [...] SO at the bedside. Educate both on [facility] and SNFs, pt inquired about [facility] and if there was a Swing bed closer to [place] where they live, educated on [facility] Swing bed, they would like to think about it and pt's girlfriend would like to discuss with pt's son this evening as well. CM will continueto follow. Assessment and Background Information: * Destiney Lora CNP - 02/05/2025 8:40 AM EDT DAILY PROGRESS NOTE Patient Name: Andrew Arnold MR #: [id number] Assessment/Plan: 79 y.o. male with history of [...] this chart may have been created with [employer] voice recognition software. Occasional wrong-word or sound-like [...] follow DI protocol and reach out to IRON PLASTIC BULLET MAKER as needed for support. * Carla Callahan [...] Andrew Arnold Admit Date: 7200815 MR #: [id number] : 1945 Physicians: Vivien Foreman MD (Family); [...] excoriations Musculoskeletal: No joint swelling, non tender FUNERAL PROFESSIONAL: Awake, and Ox3, Wound: Left wrist area [...] , , Until Discontinued, Antonino, Dominga Joyce, MOLD COOLER insulin lispro (AdmeLOG,HumaLOG) injection 0-30 Units, 0-30 Units, Subcutaneous, TID AC, Dominga Muñiz CNP, 6 Units at 02/03/25 1641 [Held by provider] lisinopriL (PRINIVIL,ZESTRIL) tablet 5 mg, 5 mg, Oral, Daily, Oren Mireles DO melatonin tablet 3 mg, 3 mg, Oral, Nightly PRN, oNemi Andrade MD, 3 mg at 02/03/25 2307 [...] Angiogram; Surgeon: Adilson Stone MD; Location: [employer] WORK[employer]; Service: Cardiovascular CARDIAC CATHETERIZATION N/A 12/25/2021 Procedure: [...] No Nutrition Related Allergies noted Cultural or Islam Dietary Needs :No Cultural or Islam Dietary needs noted Patient/family comments:Deferred: Pt confused; [...] Lillian Spicer RDN, LD, CLC Dietitian Office: [phone] * Gina Reyna MD - 02/04/2025 10:37 AM EDT NEPHROLOGY PROGRESS [facility] Patient Name: Andrew Arnold Admit Date: 7200815 MR #: [id number] : 1945 Perpetual Assessment: Andrew Arnold is [...] created by dictation via voice recognition software (DoApp). The completed note was reviewed for accuracy. However, there may be subtle errors that were not found during the review. If such errors are discovered, or if there are any questions or concerns regarding the recommendations/plan of care, please contact the author of the note prior to undertaking the recommendations/plan of care. * Noemi Andrade MD - 02/04/2025 8:42 AM EDT [facility] PROGRESS NOTE Patient Name: Andrew Arnold : 1945 Assessment and Plan Andrew Arnold is a 79 y.o. male patient of Vivien Foreman MD with history of CAD s/p CABG, atrial fibrillation on Eliquis, DM II, and mood disorder who presented to [facility] on01/28/2025 with tachycardia and generalized malaise which [...] acute distress. Family members present. He is [place]. HEENT: Head- normocephalic; Eyes- EOMI, sclera anicteric; [...] General Cardiology Inpatient Follow-up Heart & Vascular [facility] 02/04/2025 Niharika Delarosa CNP [facility] Patient: Andrew Arnold Date of : 1945 (79 y.o.) PCP: Vivien Foreman MD Primary press loader: Dr. Healy Assessment/Plan: This is an 79-year-old [...] due to reported and bleeding and anemia [id number] over 2 Will need Eliquis restarted prior [...] Final Result by Interface, Lab Results In [facility] (01/30/2025 1116) Echocardiogram Complete Final Result [...] infusion 50 mL/hr Intravenous Continuous Cindy Herrera, MOLD COOLER Stopped at 02/02/25 0800 [Held by provider] [...] Andrew Arnold Admit Date: 7200815 MR #: [id number] : 1945 Perpetual Assessment: Andrew Arnold is [...] created by dictation via voice recognition software (DoApp). The completed note was reviewed for accuracy. However, there may be subtle errors that were not found during the review. If such errors are discovered, or if there are any questions or concerns regarding the recommendations/plan of care, please contact the author of the note prior to undertaking the recommendations/plan of care. * Noemi Andrade MD - 02/03/2025 9:17 AM EDT [facility] PROGRESS NOTE Patient Name: Andrew Arnold : 1945 Assessment and Plan Andrew Arnold is a 79 y.o. male patient of Vivien Foreman MD with history of CAD s/p CABG, atrial fibrillation on Eliquis, DM II, and mood disorder who presented to [facility] on01/28/2025 with tachycardia and generalized malaise which [...] 8:45 AM EDT ATTENDING PHYSICIAN CANDIDA PATRICIO [facility] PRIMARY CARE PHYSICIAN VIVIEN FOREMAN MD [...] Further recommendations to follow. D 02/03/2025 08:46 [id number] 02/03/2025 09:37 MCB/MODL * Franchesca Dior RN - 02/03/2025 3:08 AM EDT Deterioration Index score is 59, DI increased by 17, chart reviewed, nursing to continue to follow DI protocol and reach out to IRON PLASTIC BULLET MAKER as needed for support. * Kunal Norman MD - 02/02/2025 4:24 PM EDT Patient Name: Andrew Arnold Admit Date: 7200815 MR #: [id number] : 1945 Physicians: Vivien Foreman MD (Family); [...] excoriations Musculoskeletal: No joint swelling, non tender FUNERAL PROFESSIONAL: Awake, and Ox3, Wound: Left wrist area [...] Andrew Arnold Admit Date: 7200815 MR #: [id number] : 1945 Perpetual Assessment: Andrew Arnold is [...] created by dictation via voice recognition software (DoApp). The completed note was reviewed for accuracy. [...] 9:29 AM EDT ATTENDING PHYSICIAN CANDIDA PATRICIO [facility] PRIMARY CARE PHYSICIAN VIVIEN FOREMAN MD [...] results. Continue current antibiotics. D 02/02/2025 09:30 [id number] T 02/02/2025 09:54 MCB/MODL * Noemi Andrade MD - 02/02/2025 8:17 AM EDT [facility] PROGRESS NOTE Patient Name: Andrew Arnold : 1945 Assessment and Plan Andrew Arnold is a 79 y.o. male patient of Vivien Foreman MD with history of CAD s/p CABG, atrial fibrillation on Eliquis, DM II, and mood disorder who presented to [facility] on01/28/2025 with tachycardia and generalized malaise which [...] bed, awake and alert, no acute distress. PILOT POINT. Family members present. HEENT: Head- normocephalic; Eyes- [...] Andrew Arnold Admit Date: 7200815 MR #: [id number] : 1945 Physicians: Vivien Foreman MD (Family); [...] a call back. Stat RN, Dr Hartman, Director Translational [facility] messaged aboutdressing saturating dressing again. Heparin put on hold by fraud prevention analyst [facility] and this RN and Ariana RN called Dr Cooper's cell phone to get instruction on dressing care. Per Dr Cooper, nursing is to cover with more gauze, kyrlex, ABD, and Patricia wrap and to make it look like a club. Dr Cooper insisted that the bleeding will stop this way. Heparin holding, ok with [facility] and Dr Cooper. Pressure was held by Stat RN for about 10 minutes before applying more to the dressing. * Gina Reyna MD - 02/01/2025 2:01 PM EDT NEPHROLOGY PROGRESS NOTE [facility] Patient Name: Andrew Arnold Admit Date: 7200815 MR #: [id number] : 1945 Perpetual Assessment: Andrew Arnold is [...] created by dictation via voice recognition software (DoApp). The completed note was reviewed for accuracy. [...] General Cardiology Inpatient Follow-up Heart & Vascular [facility] 02/01/2025 Luis A Gayle CNP [facility] Patient: Andrew Arnold Date of : 1945 (79 y.o.) PCP: Vivien Foreman MD Primary press loader: Assessment/Plan: This is an 79-year-old male with [...] Final Result by Interface, Lab Results In [facility] (01/30/2025 1116) Echocardiogram Complete Final Result [...] software was used Luis A Gayle MSN, STILL OPERATOR BRANDY, ANP-C [1] Current Facility-Administered Medications Medication Dose [...] injection 0-15 Units 0-15 Units Subcutaneous at bedtimeSeyuvalde memorial hospitalDominga CNP [SEP Hold] insulin lispro (AdmeLOG,HumaLOG) injection [...] 4 mg Intravenous Q6H PRN Dominga Muñiz MOLD COOLER 4mg at 01/29/25 1538 [SEP Hold] oxyCODONE (ROXICODONE) immediate release tablet 5 mg 5 mg Oral Q4H PRN Noemi Andrade MD 5 mg at 02/01/25 0849 [SEP Hold] pantoprazole (PROTONIX) EC tablet 40 mg 40 mg Oral Daily Dominga Muñiz MOLD COOLER 40 mgat 02/01/25 0848 [SEP Hold] penicillin G potassium 3 million unit/50 mL IVPB 3 Million Units 3 Million Units Intravenous Q4H Dominga Muñiz MOLD COOLER 200 mL/hr at 02/01/25 0927 3 Million [...] 02/01/2025 9:44 AM EDT ATTENDING PHYSICIAN [facility] PRIMARY [facility]ARE PHYSICIAN VIVIEN FOREMAN MD [...] of the left hand. D 02/01/2025 09:45 [id number] T 02/01/2025 10:12 MCB/MODL * Noemi Andrade MD - 02/01/2025 8:48 AM EDT [facility] PROGRESS NOTE Patient Name: Andrew Arnold : 1945 Assessment and Plan Andrew Arnold is a 79 y.o. male patient of Vivien Foreman MD with history of CAD s/p CABG, atrial fibrillation on Eliquis, DM II, and mood disorder who presented to [facility] on01/28/2025 with tachycardia and generalized malaise which [...] Appearance: Supine in bed, awake and alert, PILOT POINT, no acute distress. Family members present. HEENT: [...] Andrew Arnold Admit Date: 7200815 MR #: [id number] : 1945 Perpetual Assessment: Andrew Arnold is [...] Large* Small* NITRITE, UR Negative Negative LEUK BARNYE, UR Trace* Trace* MUCUS, UR /lpf Rare Rare WBC, UR /hpf >180* 26* BACTERIA, UR /hpf Rare* Rare* HYALINE CASTS /lpf -- 3-5* Potential limitations of the note: Parts of this note were created by dictation via voice recognition software (DoApp). The completed note was reviewed for accuracy. [...] Andrew Arnold Admit Date: 7200815 MR #: [id number] : 1945 Physicians: Vivien Foreman MD (Family); [...] upper extremity stable, with less pain but blending tank tender . Tmax of 97.9. Saturating 98% on [...] excoriations Musculoskeletal: No joint swelling, non tender FUNERAL PROFESSIONAL: Awake, and Ox3, weak looking. Wound: Scabbed [...] injection 1 mg, 1 mg, Intravenous, Q12H [facility] Beth Ashley, MOLD COOLER, 1 mg at 01/31/25 0512 [Held by [...] With Patient Not Available Visit By Staff Public Housing Manager Visit Progression Attempt Visit Requested By Public Housing Manager Initiated Visit Source Public Housing Manager Initiated Visit Type Inpatient;Rounding Visit Circumstances and Events Routine Visit Visit Length (minutes) 5 Patient's Response to Pastoral Care Timing of Visit Not Optimal. Visit Rescheduled Visit Planning PRN Spiritual Assessment Not assessed during visit Islam Assessment Not assessed during this visit Family assessment provided? Not assessed during this visit Signature: Stephanie Randhawa MDiv Staff Public Housing Manager [facility] On-Call Public Housing Manager /[place] On-Call Public Housing Manager She/Her/Hers * Luis A Gayle CNP - 01/31/2025 10:07 AM EDT General Cardiology Inpatient Follow-up Heart & Vascular [facility] 01/31/2025 Luis A Gayle CNP [facility] Patient: Andrew Arnold Date of : 1945 (79 y.o.) PCP: Vivien Foreman MD Primary press loader: Assessment/Plan: This is an 79-year-old male with [...] Final Result by Interface, [facility] (01/30/2025 1116) Echocardiogram Complete Final [...] software was used Luis A Gayle MSN, STILL OPERATOR BRANDY, ANP-C [1] Current Facility-Administered Medications Medication Dose Route Frequency Provider Last Rate Last Admin aspirin EC tablet 81 mg 81 mg Oral Daily Oren Mireles DO 81 mg at 01/31/25 0839 bumetanide (BUMEX) injection 1 mg 1 mg Intravenous Q12H [facility] Dominga Muñiz CNP 1 mg at 01/31/25 [...] Andrew Arnold Date of : 1945 Site: [facility] Provider: Iván Robbins CNP ASSESSMENT/PLAN: Andrew Arnold [...] Intake/Output Summary (Last 24 hours) at 01/31/2025 0990 Last data filed at 01/31/2025 0850 Gross [...] Andrade MD - 01/31/2025 9:04 AM EDT [facility] PROGRESS NOTE Patient Name: Andrew Arnold : 1945 Assessment and Plan Andrew Arnold is a 79 y.o. male patient of Vivien Foreman MD with history of CAD s/p CABG, atrial fibrillation on Eliquis, DM II, and mood disorder who presented to [facility] on01/28/2025 with tachycardia and generalized malaise which [...] Appearance: Supine in bed, awake and alert, PILOT POINT, no acute distress. Family members present. HEENT: [...] Andrew Arnold Admit Date: 7200815 MR #: [id number] : 1945 Physicians: Vivien Foreman MD (Family); [...] excoriations Musculoskeletal: No joint swelling, non tender FUNERAL PROFESSIONAL: Awake, and Ox3, weak looking. Wound: Scabbed [...] injection 1 mg, 1 mg, Intravenous, Q12H [facility], Dominga Muñiz CNP, 1 mg at 01/30/25 [...] General Cardiology Inpatient Follow-up Heart & Vascular [facility] 01/30/2025 Luis A Gayle CNP [facility] Patient: Andrew Arnold Date of : 1945 (79 y.o.) PCP: Vivien Foreman MD Primary press loader: Assessment/Plan: This is an 79-year-old male with [...] Final Result by Interface, Lab Results In [facility] (01/30/2025 1116) Echocardiogram Complete Final [...] software was used Luis A Gayle MSN, STILL OPERATOR BRANDY, ANP-C [1] Current Facility-Administered Medications Medication Dose [...] injection 1 mg 1 mg Intravenous Q12H [facility] Dominga Muñiz CNP 1 mg at 01/30/25 [...] infusion 0- 100 mcg/min Intravenous Continuous Nevin Mtathew MD 18.8 mL/hr at 01/28/25 2205 5 mcg/min at 01/28/25 220 And VASOpressin (PITRESSIN) 0.2 unit/mL infusion 0.03 Units/min Intravenous Continuous PRN Familia Matthew MD ondansetron (ZOFRAN) injection 4 mg 4 mg Intravenous Q6H PRN AntoninoDominga crawford CNP 4 mg at 01/29/25 1538 pantoprazole (PROTONIX) EC tablet 40 mg 40 mg Oral Daily [facility] Center[facility]inga crawford CNP 40 mg at 01/30/25 0913 [...] Andrade MD - 01/30/2025 9:00 AM EDT [facility] PROGRESS NOTE Patient Name: Andrew Arnold : 1945 Assessment and Plan Andrew Arnold is a 79 y.o. male patient of Vivien Foreman MD with history of CAD s/p CABG, atrial fibrillation on Eliquis, DM II, and mood disorder who presented to [facility] on01/28/2025 with tachycardia and generalized malaise which [...] Appearance: Comfortable in bed, awake and alert, PILOT POINT, no acute distress. Significant other was present. [...] Andrew Arnold Date of : 1945 Site: [facility] Provider: Dominga Muñiz CNP ASSESSMENT/PLAN: Andrew Arnold [...] examined and interviewed the patient with the MOLD COOLER. SUBJECTIVE: 79-year-old male admitted with complaints of [...] unit providing critical care services [facility] and other care providers. My time managing this critically ill patient included review of interval history, laboratories, radiology and consultation reports; performing a physical examination; discussing the patient with the multi-disciplinary team and managing life sustaining therapies to prevent imminent clinical deterioration, including managing vent support. * Noemi Andrade MD - 01/29/2025 11:34 AM EDT [facility] PROGRESS NOTE Patient Name: Andrew Arnold DOB: 1945 Assessment and Plan Andrew Arnold is a 79 y.o. male patient of Vivien Foreman MD with history of CAD s/p CABG, atrial fibrillation on Eliquis, DM II, and mood disorder who presented to [facility] on01/28/2025 with tachycardia and generalized malaise which [...] Supine in bed, awake and alert, conversant, PILOT POINT. Family members were present. HEENT: Head- normocephalic; [...] and affect, no agitation. * Radha Brar [facility],PharmD - 01/28/2025 10:55 PM EDT Pharmacy to [...] and make adjustments as needed. Please use [employer] to call pharmacy or secure chat the [...] 1 Encounters: 01/28/25 99.8 kg (220 lb) [place] body weight: 66.1 kg (145 lb 11.6 oz) Adjusted ideal body weight: 79.6 kg (175 lb 6.9 oz) Patient Tmax (last 24 hours): 101 F Micro: Pharmacy Personnel: Radha Brar RPh,PharmD Contact: or Vocera documented in this [id number] Hospital course Narrative* Kelly Burton MD - 02/09/2025 11:14 AM EDT [facility] DISCHARGE SUMMARY -- [facility] Andrew Arnold : 1945 Admitted: 01/28/2025 Discharge [...] II, and mood disorder who presented to [facility] on01/28/2025 with tachycardia and generalized malaise which [...] for 3 wks. Follow up with the MOLD COOLER weekly and clinic at [facility]. End: 02/27/25 [...] directed QID . Quantity: 400 each lancets [facility] Use to check BG QID SolusV2 brand [...] Physician(s) Follow Up: Darrell Norman CNP [address] [facility] [address] Schedule an appointment as soon as possible for a visit weekly telehealth Kunal Norman MD [address] [facility] [address] Schedule an appointment as soon as possible for a visit at [facility] [address] [place] [address] Condition at Discharge: Stable Disposition: SNF I reviewed discharge recommendations with the patient in person. Patient instructions, including activity, were given to the patient/family at discharge. On day of discharge I saw Andrew Arnold and spent: > 30 minutes on discharge. Completed by: Kelly Burton MD on 02/09/25, 11:14 AM documented in this [id number] [facility] 02-08-2025 [facility]08-01-2025 [facility]07-31-2025 [facility]07-31-2025 Miscellaneous Notes* Quick Note - Jenaro Sanchez [...] Macias MD - 02/06/2025 9:33 PM EDT [facility] SUPPORT CENTER NOTE Contacted by staff regarding [...] 02/04/2025 2:14 PM EDT Cardiology Progress Note [facility] Heart and Vascular Physicians Cardiology Sign-Off [...] Unable to reach his staff. @ 1705 [facility] on-call MD Hernandez was notified of situation [...] (79 y.o.) Date of Service: 02/01/2025 CSN: [id number] Procedure(s): LEFT HAND IRRIGATION AND DEBRIDEMENT Pre-Operative Diagnoses: * Left hand abscess Post-Operative Diagnoses: * Same as Pre-Op Diagnosis Surgeons and Role: * Dillan oCoper MD - Primary Anesthesiologist: Edgar Rowan MD CONTACT LENS MANUFACTURER: Marichuy Barnett CRNA Communications Scientist: Daphne Skaggs RN Scrub Person: Ranjan Gayle [...] 1:29 PM EDT ATTENDING PHYSICIAN CANDIDA PATRICIO [facility] PRIMARY CARE PHYSICIAN VIVIEN FOREMAN MD [...] PACU without intraoperative complication. D 02/01/2025 18:08 [id number] T 02/01/2025 18:52 MCB/MODL * Quick Note [...] reported to Dr. Matthew. documented in this [id number] [facility] 02-06-2025 [facility]07-30-2025 [facility]07-29-2025 [facility]07-29-2025 [facility]07-29-2025 Consult note* Ranjan Jimenez, PT - 02/05/2025 8:48 AM EDT Physical Therapy PHYSICAL THERAPY EVALUATION and TREATMENT NOTE Dx: Left upper extremity cellulitis/abscess, s/p I&D 01/26 Acute encephalopathy Septic Shock Bacteremia DOMENICO on chronic kidney disease PHYSICAL THERAPY EVALUATION Skilled Therapy Needs After Discharge Are therapist respiratory Therapy Services Needed After Discharge: Yes Intensity of therapist respiratory Therapy: 5 to 7 days per week Anticipated Duration of therapist respiratory Therapy: Duration 7 - 10 days Rehab [...] assist Standing Balance - Static: Moderate assist Cracking Machine Operator - Standing Static: (none) Bed Mobility Supine [...] 1 Prior Level of Function Level of Conway - Transfers/Ambulation/Mobility: Independent with community ambulation (no [...] Coronary Angiogram; Surgeon: Adilson Stone MD; Location: [facility]; Service: Cardiovascular CARDIAC CATHETERIZATION N/A 12/25/2021 Procedure: Left Heart Cath w/Grafts; Surgeon: Adilson Stone MD; Location: [facility]; Service: Cardiovascular CARDIAC VALVE REPLACEMENT CORONARY [...] for discharge planning. Pt in room with channel rougher talking, spoke with SO in the hallway- [...] Gastroenterology Inpatient Consult 02/04/2025 Destiney Lora CNP [facility] Patient: Andrew Arnold Date of : 1945 [...] Last colonoscopy over 10 years ago in [place] no report available; Report found for colonoscopy [...] colonoscopy was over 10 years ago in [place], no report available. Pending Lab and Radiology [...] Angiogram; Surgeon: Adilson Stone MD; Location: [facility]; Service: Cardiovascular CARDIAC CATHETERIZATION N/A 12/25/2021 Procedure: [...] this chart may have been created with DoApp voice recognition software. Occasional wrong-word or sound-like [...] interviewed and examined the patient. I reviewed [facility] nurse practitioner consultation report and agree with [...] Last colonoscopy over 10 years ago in [place] no report available; Report found for colonoscopy [...] 5:18 PM EDT ATTENDING PHYSICIAN CANDIDA PATRICIO [facility] PRIMARY CARE PHYSICIAN VIVIEN FOREMAN MD [...] infectionfor potential further debridement. D 01/30/2025 17:20 [id number] 01/30/2025 18:16 MCB/MODL * Gina Reyna MD - 01/30/2025 12:36 PM EDTAssociated Order(s): IP CONSULT TO NEPHROLOGY NEPHROLOGY CONSULTATION NOTE [facility] Patient Name: Andrew Arnold MR #: [id number] : 1945 Requesting provider: Dominga Muñiz CNP [...] Coronary Angiogram; Surgeon: Adilson Stone MD; Location: [facility]; Service: Cardiovascular CARDIAC CATHETERIZATION N/A 12/25/2021 Procedure: Left Heart Cath w/Grafts; Surgeon: Adilson Stone MD; Location: [facility]; Service: Cardiovascular CARDIAC VALVE REPLACEMENT CORONARY [...] I have reviewed Progress Notes in the [facility] EHR and CareEverywhere. [x] I have interpreted/reviewed lab tests and radiography data in the [facility] EHR. [x] I have discussed the case with the primary service. [x] I have ordered appropriate tests/labs Comments: Thank you for allowing us to participate in the care of this patient. We will continue to follow. Please call if questions or concerns arise. Potential limitations of the note: Parts of this note were created by dictation via voice recognition software (DoApp). The completed note was reviewed for accuracy. [...] kids and one grand-duaghter Retired [place] [employer] in 2005 Social Drivers of Health Financial [...] intolerance. The patient's home setup is a coffee weigher, limitations of family / caregiver support is a barrier for return to prior level of function. The patient's education level is a coffee weigher, compliance is a coffee weigher, awareness of own capacity and performance is a coffee weigher to return to prior level of function. [...] fall at home about a month ago ELECTRIFICATION ADVISER.) Progressive Mobility Level 3 Cognition Arousal/Alertness: Appropriate responses to stimuli Orientation Level: Oriented to place, Oriented to time, Oriented to person (Knew birthdate.) Attention: Attends to distracted environment Hearing Status: Hard of hearing, Left ear, Right ear, Hearing aide Social Interaction: [facility] ADL Grooming: Maximal assist (Hair [...] Supine: Minimal assist, Head of bed flat Cracking Machine Operator: bedrails, bed positioning mechanics, patient slide sheet / friction-reducing device Functional Transfers Sit to Stand: Minimal assist (Min A for stand to sit transition at BSC.) Stand Pivot Transfers: Minimal assist (1-2 person assist) Cracking Machine Operator: (None) (SBA with UE support for EOB [...] via walker Mobility Equipment: Cane ADL Equipment: Real Estate Office Supervisor Prior Level of Function Level of Conway - Transfers/Ambulation/Mobility: Independent with functional transfers, Independent with household ambulation, Independent with community ambulation (No AD for ambulation at home ELECTRIFICATION ADVISER.) Level of [place] - ADLs: Independent (Sometimes assist for hair combing.) Level of [place] - Homemaking: (S.O. did cooking and laundry [...] Coronary Angiogram; Surgeon: Adilson Stone MD; Location: [facility]GET[facility] FA[facility]ORY WORKER; Service: Cardiovascular CARDIAC CATHETERIZATION N/A 12/25/2021 Procedure: Left Heart Cath w/Grafts; Surgeon: Adilson Stone MD; Location: [facility]; Service: Cardiovascular CARDIAC VALVE REPLACEMENT CORONARY ARTERY BYPASS GRAFT 08/13/2015 3 Vessel/YEUNG to the LAD/SVG to obtuse marginal/SVG to a PDA MOUTH SURGERY 2007 Oral cancer TENDON RELEASE DEQUERVAINS Right 12/26/2018 Procedure: TENDON RELEASE DE QUERVAINS RIGHT; Surgeon: Jenaro Oquendo MD; Location: [facility]; Service: Orthopedic For complete objective data, detailed [...] IP CONSULT TO CARDIOLOGY General Cardiology Consult [facility] Heart & Vascular 01/29/2025 Neetu Pinto MD [address] [facility] [id number] Date of Service: 01/29/2025 Patient: Andrew Arnold [...] cardiac surgeries. With good accuracy and collation [facility] medical chart. He reports that he is [...] Final Result by Interface, Lab Results In [facility] (07/12/20232049) Echocardiogram complete w contrast Final [...] Coronary Angiogram; Surgeon: Adilson Stone MD; Location: [facility]ORY [facility]; Service: Cardiovascular CARDIAC CATHETERIZATION N/A 12/25/2021 Procedure: Left Heart Cath w/Grafts; Surgeon: Adilson Stone MD; Location: [facility]; Service: Cardiovascular CARDIAC VALVE REPLACEMENT CORONARY [...] is improved hemodynamically. Neetu Pinto MD, MPH Non-Chief Medical Technologist, [facility] Heart and Vascular [1] Social History Tobacco Use Smoking Status Former Current packs/day: 0.00 Average packs/day: 3.0 packs/day for 12.0 years (36.0 ttl pk-yrs) Types: Cigarettes Start date: 08/27/1961 Quit date: 08/27/1973 Years since quittin.4 Smokeless Tobacco Former Types: Chew * Kunal Norman MD - 01/29/2025 11:59 AM EDT Patient Name: Andrew Arnold MR #: [id number] : 1945 Physicians: Vivien Foreman MD (Family); [...] Coronary Angiogram; Surgeon: Adilson Stone MD; Location: [facility] FA[facility]ORY WORK[facility]; Service: Cardiovascular CARDIAC CATHETERIZATION N/A 12/25/2021 Procedure: [...] one grand-duaghter Retired [place] [employer] in 2006 Social Drivers of Health Financial [...] 7:40 AM EDTAssociated Order(s): IP CONSULT TO WELDING MANAGER CRITICAL CARE CONSULT 01/29/2025 Patient: Andrew Arnold Date of : 1945 Site: [facility] Referring Provider: Refer to consult order in [...] Coronary Angiogram; Surgeon: Adilson Stone MD; Location: [facility]; Service: Cardiovascular CARDIAC CATHETERIZATION N/A 12/25/2021 Procedure: Left Heart Cath w/Grafts; Surgeon: Adilson Stone MD; Location: [facility]; Service: Cardiovascular CARDIAC VALVE REPLACEMENT CORONARY [...] mg 20 mg Intravenous Daily Umang Underwood, [facility],PharmD heparin (porcine) 25,000 unit/250 mL(100 unit/mL) in [...] mL 5 mL Intravenous PRN Kiza, Oren Nicorettamukiza, DO And sodium chloride (PF) (NS) [...] provided not including procedures. documented in this [id number] [facility] 02-04-2025 [facility]07-28-2025 [facility]07-28-2025 [facility]07-28-2025 [facility]07-27-2025 [facility]07-27-2025 [facility]07-27-2025 [facility] 02-02-2025 [facility]07-26-2025 [facility]07-26-2025 [facility]07-26-2025 [facility]07-25-2025 [facility]07-25-2025 [facility]07-25-2025 [facility] 02-01-2025 [facility]07-25-2025 [facility]07-24-2025 [facility]07-24-2025 [facility]07-24-2025 [facility]07-24-2025 [facility]07-24-2025 [facility] 01-30-2025 [facility]07-23-2025 [facility]07-23-2025 [facility]07-23-2025 [facility]07-22-2025 [facility]07-21-2025 History and physical note* Oren Mireles, DO - 01/28/2025 10:16 PM EDT [facility] HISTORY AND PHYSICAL -- [facility] Patient Name: Andrew Arnold : 1945 MR #: [id number] Admit Date: 01/28/2025 Physicians: Vivien Foreman MD (Family); No ref. provider found (Referring) Andrew Arnold is a 79 y.o. male patient of Vivien Foreman MD with history of CAD status post CABG, atrial fibrillation on Eliquis, insulin- dependent type 2 diabetes mellitus, and mood disorder who presented to [facility] on 01/28/2025 with tachycardia and generalized malaise, [...] mellitus, and mood disorder who presented to [facility] on 01/28/2025 with tachycardia and generalized malaise, [...] Angiogram; Surgeon: Adilson Stone MD; Location: [facility] WORKER; Service: Cardiovascular CARDIAC CATHETERIZATION N/A 12/25/2021 Procedure: Left Heart Cath w/Grafts; Surgeon: Adilson Stone MD; Location: [facility]; Service: Cardiovascular CARDIAC VALVE REPLACEMENT CORONARY ARTERY BYPASS GRAFT 08/13/2015 3 Vessel/YEUNG to the LAD/SVG to obtuse marginal/SVG to a PDA MOUTH SURGERY 2007 Oral cancer TENDON RELEASE DEQUERVAINS Right 12/26/2018 Procedure: TENDON RELEASE DE QUERVAINS RIGHT; Surgeon: Jenaro Oquenod MD; Location: Main OR; Service: Orthopedic Family [...] Withdrawn -- The note was dictated using [employer]App dictation system. The voice recognition software is inherently subject to errors including those of syntax and sound- alike substitutions which may escape proofreading. In such instances, original meaning may be extrapolated by contextual derivation. Reach out tome via Med.ly Chat for clarification, if needed. -- Critical [...] Tobacco Former Types: Chew documented in this [id number] Emergency department Note* Nevin Matthew MD - 01/28/2025 10:02 PM EDT [facility] ED note NAME: Andrew Arnold 79 y.o. 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; Service: Cardiovascular CARDIAC CATHETERIZATION N/A 12/25/2021 Procedure: Left Heart Cath w/Grafts; Surgeon: Adilson Stone MD; Location: [facility] CATH[facility]; Service: Cardiovascular CARDIAC VALVE REPLACEMENT CORONARY [...] All other components within normal limits Narrative: [facility] has implemented the eGFR [...] All other components within normal limits Narrative: [facility] has implemented the eGFR [...] Procedure Abnormality Status --------- ------ CBC Auto Differential[[id number]] Abnormal Final result Please view results for [...] 09/01/2015 S/P AVR 09/01/2015 Fractured sternal wires ([facility]) 09/01/2015 Type 2 diabetes mellitus with retinopathy of both eyes, with long-term current use of insulin ([facility])09/23/2015 Hypercholesterolemia 09/23/2015 Iron deficiency anemia 06/15/2016 RBBB 08/19/2016 Wrist pain, chronic, right 12/15/2018 De Quervain's disease (radial styloid tenosynovitis) 12/15/2018 DDD (degenerative disc disease), lumbar 10/02/2019 Malignant neoplasm of buccal sulcus ([facility]) 12/16/2020 Obesity (BMI 30-39.9) 12/16/2020 Benign prostatic hyperplasia with urinary retention 12/16/2020 Hearing loss, sensorineural 12/16/2020 Skin mole 12/17/2020 A-fib ([facility]) 01/09/2021 Balance disorder 03/02/2021 Anxiety and depression 03/02/2021 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 ([facility]) 12/10/2021 Atherosclerosis of [place] arteries of extremities with intermittent claudication, bilateral legs ([facility]) 03/17/2022 Mild major depression 06/14/2022 Medicare annual wellness visit, subsequent 06/14/2022 Advanced directives, counseling/discussion 06/15/2022 FPC current use of anticoagulant 12/09/2022 PAD (peripheral artery disease) ([facility]) 07/28/2023 Aneurysm of ascending aorta without rupture ([facility]) 07/28/2023 Poorly controlled diabetes mellitus ([facility]) 07/28/2023 Abrasion, right foot, subsequent encounter 10/27/2023 At high risk for falls 12/19/2023 Resolved Ambulatory Problems Diagnosis Date Noted CAD (coronary artery disease) Postoperative atrial fibrillation ([facility]) 09/01/2015 Delayed wound healing 10/15/2015 Chest pain 12/01/2018 Prominent abdominal aortic pulse 12/01/2018 Traumatic subdural hemorrhage ([facility]) 03/22/2008 Ventricular fibrillation ([facility]) 06/12/2021 Chest discomfort 12/10/2021 Abnormal stress test 12/22/2021 PAD (peripheral artery disease) ([facility]) 02/22/2022 Cough 07/23/2022 Diarrhea 01/21/2023 Morbid obesity ([facility]) 11/29/2023 Past Medical History: Diagnosis Date Aortic valve calcification Arrhythmia Atrial fibrillation ([facility]) Claudication Fractures Ganglion cyst of dorsum of left wrist Ganglion cyst of dorsum of left wrist Mitral valve annular calcification Myocardial infarction ([facility]) 08/02/2015 Obesity Oral cancer (HCC) Pilonidal [...] available in inpatient encounters. Please contact a cable systems installer. Nevin Matthew MD ED Attending Physician Alyce [...] kids and one grand-duaghter Retired [place] [employer] in 2005 Social Drivers of Health Financial [...] date: Expected time: Means of arrival: Comments: [place] documented in this [id number] NoteOPG [address] (11) [facility] [address] [facility] [id number] Andrew Arnold is a 79 y.o. male [...] MD AUTHENTICATED BY BRADLEY MOORE, ON 01/28/2025 13:12:17[facility]07-21-2025 History of Present illness Narrative* Bradley Moore MD - 01/28/2025 1:10 PM EDT O[facility] [address] (11) [facility] [address] [facility] [phone] Andrew Arnold is a 79 y.o. male [...] 02/04/2025). Bradley Moore MD documented in this [id number] NoteThis encounter was created in error - please disregard. AUTHENTICATED BY LILIYA FINE ON 01/24/2025 07:48:38[facility]06-06-2025 Telephone encounter Note* Telephone Encounter - Jeri Mccallum LPN - 12/14/2024 8:20 AM EDT Last OV 10/30/24. Next OV 02/26/25. [id number] Miscellaneous Notes* Telephone Encounter - Jeri Mccallum LPN - 12/14/2024 8:20 AM EDT Last OV 10/30/24. Next OV 02/26/25. documented in this [id number] NoteNail care Patient is a pleasant 78 [...] cool proximal to distal. Nails left foot 58567 and right foot 60211 are elongated thickened mycotic crumbling dystrophic. Neuro: [...] AUTHENTICATED BY HOLA ARROYO JR., ON 11/21/2024 17:03:31[facility]05-14-2025 History of Present illness Narrative* Hola [...] cool proximal to distal. Nails left foot 38876 and right foot 25914 are elongated thickened mycotic crumbling dystrophic. Neuro: [...] Follow-up in 3 months documented in this [id number] NotePatient ID: Andrew Arnold is a 79 y.o. male 1945 Subjective: Andrew Arnold presents for follow-up of Type 2 diabetes Patient has had diabetes for 24 years. Diagnosed in 12/02: Reports no major issues, was in [place] for 3[place] months and was not using [...] Syrg, Use as directed QID . lancets [facility] Use to check BG QID SolusV2 brand [...] 11/09/24: *labs reviewed 11/12/24 (more content not included)...[facility] 11-12-2024 History of Present illness Narrative* Radha Hughes CNP - 11/12/2024 9:03 AM EDT Images from the original note were not included. Patient ID: Andrew Arnold is a 79 y.o. male 1945 Subjective: Andrew Arnold presents for follow-up of Type 2 diabetes Patient has had diabetes for 24 years. Diagnosed in 12/02: Reports no major issues, was in [place] for 3-[place] months and was not using [...] Syrg, Use as directed QID . 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 Arroyo. Follows with Podiatry: Yes Hole Digger: Dr. Arroyo History of foot ulceration: Yes, [...] cancer March 2017. Had COVID-19 vaccine in [place]. Plan: 1. Rx changes: Adjust medications as [...] Arnold would benefit from continued use of [employer] continuous glucose monitoring system. Patient has had [...] Call if BG consistently <70 or >250. [phone] Patient has been checking blood glucoses 4 [...] Encounter Procedures Hemoglobin A1c Comprehensive Metabolic Panel [place] WASTEWATER PROCESS ENGINEER (MONITOR); EXTERNAL, FOR USE WITH NONDURABLE MEDICAL EQUIPMENT INTERSTITIAL CONTINUOUS GLUCOSE MONITORING SYSTEM (CGM) documented in this [id number] [facility] [address] [facility] [phone] Chief Complaint Patient presents with Left Hand [...] Surgeon: Adilson Stone MD; Location: [facility] FACTORY WORKER; Service: Cardiovascular CARDIAC CATHETERIZATION N/A 12/25/2021 Procedure: Left Heart Cath w/Grafts; Surgeon: Adilson Stone MD; Location: [facility] FACTORY WORKER; Service: Cardiovascular CARDIAC VALVE REPLACEMENT CORONARY ARTERY [...] Reactions Pioglitazone GI Intolerance (more content not included)...[facility]04-30-2025 History of Present illness Narrative* Amanda Johnson, [facility] - 11/07/2024 9:15 PM EDT Images from the original note were not included. 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; Service: Cardiovascular CARDIAC CATHETERIZATION N/A 12/25/2021 Procedure: [...] one grand-duaghter Retired [place] [employer] in 2005 Social Drivers of Health Financial [...] the Last Year: No documented in this [id number] NoteSubjective Patient ID: Andrew Arnold is a [...] Coronary Angiogram; Surgeon: Adilson Stone MD; Location: [facility] FR[facility] AND VEGETABLE FACTORY WORKER; Service: Cardiovascular CARDIAC CATHETERIZATION N/A 12/25/2021 Procedure: Left Heart Cath w/Grafts; Surgeon: Adilson Stone MD; Location: [facility] FR[facility] AND VEGETABLE FACTORY WORKER; Service: Cardiovascular CARDIAC VALVE REPLACEMENT CORONARY ARTERY [...] Mental Status: He is (more content not included)...[facility] 10-30-2024 History of Present illness Narrative* [...] Angiogram; Surgeon: Adilson Stone MD; Location: [facility] WORKER; Service: Cardiovascular CARDIAC CATHETERIZATION N/A 12/25/2021 Procedure: [...] mouth nightly . flash glucose sensor (FreeStyle Jonhny 2 Sensor) Kit 1 kit by Miscellaneous [...] Reactions Pioglitazone GI Intolerance documented in this [id number] Evaluation + Plan note* Assessment & Plan Note - Preston Healy MD - 10/19/2024 11:02 AM EDT Associated Problem(s): S/P AVR Reviewed. [id number] Miscellaneous Notes* Assessment & Plan Note - [...] artery disease) (HCC) Stable documented in this [id number] Evaluation + Plan note* Assessment & Plan Note - Preston Healy MD - 10/19/2024 9:20 AM EDT Associated Problem(s): S/P CABG (coronary artery bypass graft) Reviewed echo 03/2023 reviewed. [id number] Evaluation + Plan note* Assessment & Plan Note - Preston Healy MD - 10/19/2024 9:20 AM EDTAssociated Problem(s): A-fib (HCC) Tolerating rate controlled. No heart failure symptoms. [id number] Evaluation + Plan note* Assessment & Plan Note - Preston Healy MD - 10/19/2024 9:19 AM EDTAssociated Problem(s): Hypertension Systolic 106 occasional lightheadedness we will cut his lisinopril back to 5 mg daily. BP better onOzempic. [facility] [id number] Evaluation + Plan note* Assessment & Plan Note - Preston Healy MD - 10/19/2024 9:19 AM EDTAssociated Problem(s): PAD (peripheral artery disease) ([facility]) Stable [facility] [id number] [facility] [address] [facility] [phone] Subjective: Andrew Arnold is a 79 y.o. [...] Problems Addressed: Problem Pad (Peripheral Artery Disease) ([facility]) Severe claudication. Following with the vascular. A-Fib ([facility]) Since 2020, Holter monitor A. fib throughout [...] Heart cath December 2021 patent grafts severe [place] coronary artery disease Medical therapy ON 08/11/2015 [...] & Plan: Reviewed PAD (peripheral artery disease) ([facility]) Stable Hypertension Systolic 106 occasional lightheadedness we will cut his lisinopril back to 5 mg daily. BP better on Ozempic. A-fib ([facility]) Tolerating rate controlled. No heart failure symptoms. S/P CABG (coronary artery bypass graft) Reviewed echo 03/2023 reviewed. S/P AVR Reviewed. Histories: Past Medical History: Diagnosis Date Aortic valve calcification Arrhythmia Atrial fibrillation (HCC) after CABG CAD (coronary artery disease) 3 Vessel Claudication Left lower extremity symptoms Fractures Hypertension Mitral valve annular calcification Myocardial infarction (HCC) 08/02/2015 Non-ST Obesity Oral cancer ([facility]) Pilonidal cyst Subdural hematoma ([facility]) 2008 minor trauma while on Plavix at the time. Tendonitis of wrist, right TIA (transient ischemic attack) 2007 was put on plavix then had subdural one year later. Vitreous hemorrhage of left eye ([facility]) Past Surgical History: Procedure Laterality Date AORTIC VALVE REPLACEMENT CARDIAC CATHETERIZATION CARDIAC CATHETERIZATION N/A 12/25/2021 Procedure: Coronary Angiogram; Surgeon: Adilson Stone MD; Location: [facility] FR[facility] AND VEGETABLE FACTORY WORKER; Service: Cardiovascular CARDIAC CATHETERIZATION N/A 12/25/2021 Procedure: Left Heart Cath w/Grafts; Surgeon: Adilson Stone MD; Location: [facility] FRUIT AND VEGETABLE FACTORY WORKER; Service: Cardiovascular CARDIAC VALVE REPLACEMENT CORONARY ARTERY [...] total) by mouth every (more content not included)...[facility]04-11-2025 History of Present illness Narrative* Preston Healy MD - 10/19/2024 9:17 AM EDT [facility] [address] [facility] [address] [facility] [phone] Subjective: Andrew Arnold is a 79 y.o. [...] Severe claudication. Following with the vascular. A-Fib ([facility]) Since 2020, Holter monitor A. fib throughout [...] Heart cath December 2021 patent grafts severe [place] coronary artery disease Medical therapy ON 08/11/2015 [...] & Plan: Reviewed PAD (peripheral artery disease) ([facility]) Stable Hypertension Systolic 106 occasional lightheadedness we will cut his lisinopril back to 5 mg daily. BP better onOzempic. A-fib ([facility]) Tolerating rate controlled. No heart failure symptoms. S/P CABG (coronary artery bypass graft) Reviewed echo 03/2023 reviewed. S/P AVR Reviewed. Histories: Past Medical History: Diagnosis Date Aortic valve calcification Arrhythmia Atrial fibrillation ([facility]) after CABG CAD (coronary artery disease) 3 Vessel Claudication Left lower extremity symptoms Fractures Hypertension Mitral valve annular calcification Myocardial infarction ([facility]) 08/02/2015 Non-ST Obesity Oral cancer ([facility]) Pilonidal cyst Subdural hematoma ([facility]) 2008 minor trauma while on Plavix at the time. Tendonitis of wrist, right TIA (transient ischemic attack) 2007 was put on plavix then had subdural one year later. 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 documented in this [id number] Instructions* Patient Instructions* Tianna Conn MA - 10/17/2024 9:38 AM EDT How to Contact your Care Team: Provider: Dr. Preston Healy MD Hourly Shift: Marie HEDRICK assistant vice president: Tianna documented in this [id number] Telephone encounter Note* Telephone Encounter - Jeri Mccallum LPN - 09/07/2024 7:56 AM EST Last OV 06/06/24. No future scheduled OV. [id number] Miscellaneous Notes* Telephone Encounter - Jeri Mccallum LPN - 09/07/2024 7:56 AM EST Last OV 06/06/24. No future scheduled OV. documented in this [id number] Telephone encounter Note* Telephone Encounter - Tianna Conn MA - 08/31/2024 11:06 AM EST Eliquis Last ov 11/11/[address] Healy Recall 6 mo. Scheduling to contact for ov [facility] Work Phone: [phone] Miscellaneous Notes* Telephone Encounter - Tianna Conn MA - 08/31/2024 11:06 AM EST Eliquis Last ov 11/11/[address] Healy Recall 6 mo. Scheduling to contact for ov documented in this [id number] Telephone encounter Note* Telephone Encounter - Jeri Mccallum LPN - 08/03/2024 7:58 AM EST Last OV 06/06/24. Next OV 11/30/24. [id number] Miscellaneous Notes* Telephone Encounter - Jeri Mccallum LPN - 08/03/2024 7:58 AM EST Last OV 06/06/24. Next OV 11/30/24. documented in this [id number] History of Present illness Narrative* Pebbles Ball MA - 06/06/2024 12:08 PM EST Images from the original note were not included. Vivien Foreman MD Salsgiver Ashly, MA; Pebbles Ball MA Please get records from [facility] for last DM eye exam RECORD REQUESTED [...] with minimal exertion or when working on [employer] and sometimes while watching TV. Associated with [...] he has been having trouble walking through [place] that he needs to stop given pain [...] Coronary Angiogram; Surgeon: Adilson Stone MD; Location: [facility] FRUIT AND VEGETABLE FACTORY WORKER; Service: Cardiovascular CARDIAC CATHETERIZATION N/A 12/25/2021 Procedure: Left Heart Cath w/Grafts; Surgeon: Adilson Stone MD; Location: [facility]; Service: Cardiovascular CARDIAC VALVE REPLACEMENT CORONARY [...] will be considered. He can send a [employer] message if symptoms worsen, and the prescription can be sent to [facility]. 2. Leg claudication. His kidney and liver functions, as well as electrolytes, are within normal limits. His blood pressure is well-controlled. He was encouraged to maintain his exercise regimen. Swimming was suggested asa low-impact exercise option. He was advised to keep working with [employer] and continue losing weight, as recommended by [...] 12/04/2024) for MWV. VIVIEN FOREMAN MD [facility] [address] Dept: [phone] Over the last 2 weeks, how often [...] Not difficult at all documented in this [id number] NoteChief Complaint Patient presents with Follow-up No [...] he has been having trouble walking through [place] that he needs to stop given pain [...] Coronary Angiogram; Surgeon: Adilson Stone MD; Location: [facility] FRUIT AND VEGETABLE FACTORY WORKER; Service: Cardiovascular CARDIAC CATHETERIZATION N/A 12/25/2021 Procedure: Left Heart Cath w/Grafts; Surgeon: Adilson Stone MD; Location: [facility] FRUIT AND VEGETABLE FACTORY WORKER; Service: Cardiovascular CARDIAC VALVE REPLACEMENT CORONARY ARTERY [...] Right Ear: Tympanic membr (more content not included)...[facility] 05-23-2024 NoteNail care Patient is a [...] cool proximal to distal. Nails left foot 02928 and right foot 31087 are elongated thickened mycotic crumbling dystrophic. Neuro: [...] AUTHENTICATED BY HOLA ARROYO JR., ON 05/23/2024 11:23:22[facility]11-13-2024 History of Present illness Narrative* Hola [...] cool proximal to distal. Nails left foot 00697 and right foot 03759 are elongated thickened mycotic crumbling dystrophic. Neuro: [...] Follow-up in 3 months documented in this [id number] NotePatient ID: Andrew Arnold is a 78 [...] Hgb A1c: 8.4% Creat: (more content not included)...[facility]11-08-2024 History of Present illness Narrative* Radha [...] macular edema presence unspecified, unspecified retinopathy severity ([facility]) pen needle, diabetic 31 gauge x [...] blood tests - 4 times daily utilizing [employer] johnny CGM. 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 Arroyo History of foot ulceration: Yes, [...] cancer March 2017. Had COVID-19 vaccine in [place]. Plan: 1. Rx changes: Adjust medications as [...] Arnold would benefit from continued use of [employer] continuous glucose monitoring system. Patient has [...] Call if BG consistently <70 or >250. [phone] Patient has been checking blood glucoses 4 [...] placed in this encounter. documented in this [id number] NoteAssessment & Plan: 1. Atherosclerosis of [place] arteries of extremities with intermittent claudication, bilateral legs (HCC) 2. PAD (peripheral artery disease) (HCC) 3. Persistent atrial fibrillation (HCC) 4. FPC current use of anticoagulant 5. Type 2 [...] months (around 01/24/2025) for Recheck in the [place] office. Subjective: Andrew Arnold is a 78 y.o. male seen in the office today for follow up regarding PAD with claudication. Mr. Arnold (birthdate 1945) was seen in the [place] office on April 26, 2024. It has [...] Coronary Angiogram; Surgeon: Adilson Stone MD; Location: [facility] FRUIT AND VEGETABLE FACTORY WORKER; Service: Cardiovascular CARDIAC CATHETERIZATION N/A 12/25/2021 Procedure: Left Heart Cath w/Grafts; Surgeon: Adilson Stone MD; Location: [facility] FRUIT AND VEGETABLE FACTORY WORKER; Service: Cardiovascular CARDIAC VALVE REPLACEMENT CORONARY ARTERY [...] Take 1 (o (more content not included)... [facility]09-06-2024 Telephone encounter Note* Telephone Encounter - Rosi Casarez RN - 03/16/2024 9:38 AM EDT LAST OV 11/29/23. NEXT OV SCHEDULED FOR 06/06/24. [id number] Miscellaneous Notes* Telephone Encounter - Rosi Casarez RN - 03/16/2024 9:38 AM EDT LAST OV 11/29/23. NEXT OV SCHEDULED FOR 06/06/24. documented in this [id number] Telephone encounter Note* Telephone Encounter - Rosi Casarez RN - 03/16/2024 9:36 AM EDT LAST OV 11/29/23. NEXT OV SCHEDULED FOR 06/06/24. [id number] Miscellaneous Notes* Telephone Encounter - Rosi Casarez RN - 03/16/2024 9:36 AM EDT LAST OV 11/29/23. NEXT OV SCHEDULED FOR 06/06/24. documented in this [id number] NoteNail care Patient is a pleasant 78 [...] cool proximal to distal. Nails left foot 62919 and right foot 41432 are elongated thickened mycotic crumbling dystrophic. Neuro: [...] AUTHENTICATED BY HOLA ARROYO JR., ON 02/22/2024 14:22:30[facility]08-14-2024 History of Present illness Narrative* Hola [...] cool proximal to distal. Nails left foot 63194 and right foot 98168 are elongated thickened mycotic crumbling dystrophic. Neuro: [...] Follow-up in 3 months documented in this [id number] Telephone encounter Note* Telephone Encounter - Jeri Mccallum LPN - 02/06/2024 8:06 AM EDT Last OV 11/29/23. Next OV 05/18/24. [id number] Miscellaneous Notes* Telephone Encounter - Jeri Mccallum LPN - 02/06/2024 8:06 AM EDT Last OV 11/29/23. Next OV 05/18/24. documented in this [id number] History of Present illness Narrative* Sanju Bill III, - 01/26/2024 9:09 AM EDT Assessment & Plan: 1. Atherosclerosis of [place] arteries of extremities with intermittent claudication, bilateral legs(HCC) US Doppler ankle/brachial index 2. PAD (peripheral artery disease) (HCC) US Doppler ankle/brachial index 3. Persistent atrial fibrillation (HCC) 4. 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 5. Obesity (BMI [...] Arnold (birthdate 1945) was seen in the [place] office on January 26, 2024. It has [...] Oral cancer (HCC) Pilonidal cyst Subdural hematoma ([facility]) 2008 minor trauma while on Plavix at the time. Tendonitis of wrist, right TIA (transient ischemic attack) 2007 was put on plavix then had subdural one year later. Vitreous hemorrhage of left eye (HCC) Past Surgical History: Procedure Laterality Date AORTIC VALVE REPLACEMENT CARDIAC CATHETERIZATION CARDIAC CATHETERIZATION N/A 12/25/2021 Procedure: Coronary Angiogram; Surgeon: Adilson Stone MD; Location: [facility]; Service: Cardiovascular CARDIAC CATHETERIZATION N/A 12/25/2021 Procedure: Left Heart Cath w/Grafts; Surgeon: Adilson Stone MD; Location: [facility]; Service: Cardiovascular CARDIAC VALVE REPLACEMENT CORONARY [...] TWICE DAILY ON AN EMPTY STOMACH 180 docusate sodium (COLACE) 100 MG capsule Take [...] study from March 2022. documented in this [id number] History of Present illness Narrative* Santiago Dozier, PT - 01/24/2024 7:45 AM EDT [facility] DAILY TREATMENT NOTE Today's Date 01/24/2024 Patient Name: Andrew Arnold Date of : [...] Forward with Outstretched Arms while Standing 3 Regulatory Affairs Assistant Object From The Floor From a Standing [...] Visit 7: 7:46 - 8:24 Therapeutic Exercise (47857) Intervention scifit lvl 4 x5 mins Parameters [...] Plan: Discharge Santiago Dozier PT State License, [id number] documented in this [id number] History of Present illness Narrative* Alvarado Tinajero PTA - 01/19/2024 7:45 AM EDT [facility] DAILY TREATMENT NOTE Today's Date [...] Precautions/Contraindications Supervising PT: Ward Notes Visit [phone] Therapeutic Exercise (30755) Intervention scifit lvl 4 x5 mins Parameters [...] on DC Alvarado Tinajero PTA STATE LICENSE, [id number] documented in this [id number] History of Present illness Narrative* Lupe Kunz PTA - 01/17/2024 7:45 AM EDT [facility] DAILY TREATMENT NOTE Today's Date [...] Precautions/Contraindications Supervising PT: Ward Notes Visit [phone] Therapeutic Exercise (06979) Intervention scifit lvl 4 x5 mins Parameters [...] balance exercises Lupe Kunz PTA STATE LICENSE, [id number] documented in this [id number] History of Present illness Narrative* Alvarado Tinajero PTA - 01/10/2024 7:45 AM EDT [facility] DAILY TREATMENT NOTE Today's Date [...] Precautions/Contraindications Supervising PT: Ward Notes Visit [phone] Therapeutic Exercise (57279) Intervention scifit lvl 4 x5 mins Parameters [...] as tolerated Alvarado Tinajero PTA STATE LICENSE, [id number] documented in this [id number] History of Present illness Narrative* Alvarado Tinajero PTA - 01/05/2024 7:45 AM EDT [facility] DAILY TREATMENT NOTE Today's Date [...] Precautions/Contraindications Supervising PT: Ward Notes Visit 4 [phone] Therapeutic Exercise (16476) Intervention scifit lvl 4 x5 mins Parameters [...] as tolerated Alvarado Tinajero PTA STATE LICENSE, [id number] documented in this [id number] History of Present illness Narrative* Kar Medel PTA - 01/03/2024 7:45 AM EDT [facility] DAILY TREATMENT NOTE Today's Date [...] Visit 3: 7:40 - 8:30 Therapeutic Exercise (13083) Intervention scifit lvl 4 x5 mins Parameters [...] strengthening progressions Kar Medel PTA STATE LICENSE, [id number] documented in this [id number] History of Present illness Narrative* Santiago Dozier, PT - 12/29/2023 7:45 AM EDT [facility] DAILY TREATMENT NOTE Today's Date [...] Visit 2: 7:47 - 8:28 Therapeutic Exercise (34521) Intervention scifit lvl 3 x5 mins Parameters [...] mobility progressions Santiago Dozier PT State License, [id number] documented in this [id number] History of Present illness Narrative* Santiago Dozier PT - 12/27/2023 7:45 AM EDT [facility] DAILY TREATMENT NOTE Today's Date [...] Visit 1: 7:53 - 8:28 Therapeutic Exercise (91368) Parameters sink ex on airex x10 bilat. [...] provided HEP Santiago Dozier PT State License, [id number] documented in this [id number] History of Present illness Narrative* Santiago Dozier PT - 12/19/2023 10:00 AM EDT Images from the original note were not included. [facility] Physical Therapy Evaluation Today's Date [...] Current Activity Level: low active Social Support: Islam, social, or cultural considerations to be made [...] fall in the last 12 months: No Islam, social, or cultural considerations to be made [...] UE: Grossly WFL Tone: WNL Neuromotor Coordination: [facility] Neuromotor Tests Light Touch RLE: [...] Forward with Outstretched Arms while Standing 2 Regulatory Affairs Assistant Object From The Floor From a Standing Position 3 Turning to Look Behind Over Left and Right Shoulders While Standing 4 Turn [address]ate Foot on Step or Stool While Standing Unsupported 2 Standing Unsupported One Foot Infront 2 Standing on One Leg 1 Ahll Balance Scale Score 45 Out of a [...] Notes Eval: 10:01 - 10:40 Therapeutic Exercise (04850) Intervention reviewed PT POC and goals w/ [...] a patient reported outcome measure. CPT Code 40508 Low 58884 Moderate 41410 High History 0 1-2 3+ Comorbidities: cardiac history, HTN, and obesity, Personal factors: chronicity or severity of the current condition Examination of body systems (elements of body structures & functions, activity limitations, and/or participation restrictions) 1-2 elements 3+ elements 4+ elements See below clinical impression Clinical Presentation Stable Evolving Unstable As evidenced by reports of fluctuating symptoms over time Andrew Arnold presents to [facility] outpatient neurological rehab services with c/o impaired balance and abnormal gait. Upon assessment, patient demonstrates the following impairments: decreased strength, impaired balance and impaired posture. 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 [...] week Duration: 6 weeks Interventions: Therapeutic Exercise (50211), Neuromuscular Re-Education (29436), Manual Therapy (38260), Therapeutic/ Functional Activities (56548), and Gait Training (06916) Rehab Potential: good Patient Education Provided Pt [...] to 02/17/2024. Santiago Dozier, [place] State License, [id number] documented in this [id number] History of Present illness Narrative* Radha Hughes, [...] blood tests - 4 times daily utilizing [employer] CGM. 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 Arroyo History of foot ulceration: Yes, [...] cancer March 2017. Had COVID-19 vaccine in [place]. Plan: 1. Rx changes: Adjust medications as [...] Call if BG consistently <70 or >250. [phone] Patient has been checking blood glucoses 4 [...] A1c T4, Free TSH documented in this [id number] Evaluation + Plan note* Assessment & Plan Note - Vivien Foreman MD - 11/29/2023 8:19 AM EDTAssociated Problem(s): PAD (peripheral artery disease) (HCC) Following up with vascular with , thinking of procedure with helping his quality of life [id number] Miscellaneous Notes* Assessment & Plan Note - [...] need to follow up documented in this [id number] Evaluation + Plan note* Assessment & Plan Note - Vivien Foreman MD - 11/29/2023 8:16 AM EDTAssociated Problem(s): Mild major depression (HCC) Improving depression with increasing the lexapro dose to 10 mg [id number] Evaluation + Plan note* Assessment & Plan Note - Vivien Foreman MD - 11/29/2023 8:12 AM EDTAssociated Problem(s): Hearing loss, sensorineural Working with ENT at 's office and has hearing aids tuned recently [id number] Evaluation + Plan note* Assessment & Plan [...] his second son is his emergency contact [id number] Evaluation + Plan note* Assessment & Plan Note - Vivien Foreman MD - 11/29/2023 8:08 AM EDTAssociated Problem(s): Morbid obesity (HCC) Decreased weight with Ozempic and has been working on dietary modifications. 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 - Follow up annually told doesn't need to follow up [id number] History of Present illness Narrative* Vivien Foreman [...] (Case Management) Pharmacy / Equipment Co. (DME) [facility] [address] [place] [address] [address] [facility] [address] [facility] [address] [facility] [address] [place], [place] - [address] [facility] [address] [facility] [address] Medicare Risk Assessment Do you have an Advanced Directive (Living Will and/or Durable Power of Soaking Room Operator for Health Care)? If not, would you [...] 04/10/2008 Moderna SARS-CoV-2 Vaccination 09/18/2020, 10/16/2020, 06/13/2021 ideeli COVID-19 VACCINE BIVALENT BOOSTER (12+) 06/14/2022 Pfizer [...] eyes, with long-term current use of insulin ([facility]) A1c 9.3 in 06/2023 meds: insulin Humalog with meals. Lantus 30 units at bedtime , added Ozempic which is helping to lose weight. Getting continuous glucose monitoring system through [employer]. 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) Cardiovascular and Mediastinum Atherosclerosis of [place] arteries of extremities with intermittent claudication, bilateral legs ([facility]) Relevant Orders CBC and Differential PAD (peripheral artery disease) ([facility]) Following up with vascular with , [...] circulatory complication, with long-term current use of insulin([facility]) (Chronic) - Primary Relevant Orders Lipid [...] Not difficult at all documented in this [id number] History of Present illness Narrative* Hola Arroyo [...] cool proximal to distal. Nails left foot 05101 and right foot 16512 are elongated thickened mycotic crumbling dystrophic. Neuro: [...] Follow-up in 3 months documented in this [id number] Evaluation + Plan note* Assessment & Plan Note - Preston Healy MD - 11/13/2023 2:24 PM EDT Associated Problem(s): S/P aortic valve replacement Reviewed. [id number] Miscellaneous Notes* Assessment & Plan Note - [...] Problem(s): A-fib (HCC) Reviewed. documented in this [id number] Evaluation + Plan note* Assessment & Plan Note - Preston Healy MD - 11/13/2023 2:23 PM EDT Associated Problem(s): S/P CABG (coronary artery bypass graft) No angina. [id number] Evaluation + Plan note* Assessment & Plan Note - Preston Healy MD - 11/13/2023 2:22 PM EDTAssociated Problem(s): A-fib (HCC) Reviewed. [id number] History of Present illness Narrative* Preston Healy MD - 11/11/2023 10:06 AM EDT [facility] [address] [facility] [address] [facility] [id number] Subjective: Andrew Arnold is a 78 y.o. male seen in the office today for Chief Complaint Patient presents with Follow-up 6 mo -no complaints Doing reasonably well. No cardiac symptoms. Cardiac reviewed no chest pain no signs of any heart failure biggest problem is his significant claudication lower extremities reviewed notes from [facility]. Certainly has claudication on a flat surface less than 50 yards he says. Any slight hill or carrying things brings on much faster. Denies any abrasions of his feet. Cardiac status stable. Following up with vascular no change medications today. Overview of Problems Addressed: Problem Pad (Peripheral Artery Disease) ([facility]) Severe claudication. Following with the vascular. A-Fib ([facility]) Holter monitor A. fib throughout with rate [...] Heart cath December 2021 patent grafts severe [place] coronary artery disease Medical therapy ON 08/11/2015 [...] mmHg. 2021 Assessment & Plan: Reviewed. A-fib ([facility]) Reviewed. S/P CABG (coronary artery bypass [...] Coronary Angiogram; Surgeon: Adilson Stone MD; Location: [facility]; Service: Cardiovascular CARDIAC CATHETERIZATION N/A 12/25/2021 Procedure: Left Heart Cath w/Grafts; Surgeon: Adilson Stone MD; Location: [facility]; Service: Cardiovascular CARDIAC VALVE REPLACEMENT CORONARY [...] Neurological: Negative for dizziness. documented in this [id number] Instructions* Patient Instructions* Tianna Conn MA - 10/31/2023 3:20 PM EDT How to Contact your Care Team: Provider: Dr. Preston Healy MD Hourly Shift: Yun Darnell RN documented in this [id number] Instructions* Patient Instructions* Nilsa Garza MA - 10/27/2023 9:28 AM EDT How to contact your Care Team: Providers: DO Duane Centeno III, CNP Jill Bender, PA Nurse: Shaila Matos To reschedule office appointments call Scheduling [phone] In case of an emergency please call 911. When in need of refills please call the phone number listed above. Please include medication name, pharmacy name and specify 30 or 90 day supply Please check with your pharmacy within 24 hours of your request for refill. You must follow up as directed to continue current refills. Thank you! documented in this [id number] History of Present illness Narrative* Sanju Bill III, DO - 10/27/2023 9:27 AM EDT Assessment & Plan: 1. Atherosclerosis of [place] arteries of extremities with intermittent claudication, bilateral legs(HCC) 2. PAD (peripheral artery disease) (HCC) 3. Abrasion, right foot, subsequent encounter 4. Poorly controlled diabetes mellitus (HCC) 5. Persistent atrial fibrillation (HCC) 6. FPC current use of anticoagulant 7. Obesity (BMI [...] 3 months (around 01/26/2024) for Recheck in [place] office. Subjective: Andrew Arnold is a 78 y.o. male seen in the office today for follow up regarding PAD with significant claudication. Mr. Snyder (birthday is 1945) was seen in the [place] office on October 27, 2023. It has [...] Coronary Angiogram; Surgeon: Adilson Stone MD; Location: [facility]; Service: Cardiovascular CARDIAC CATHETERIZATION N/A 12/25/2021 Procedure: Left Heart Cath w/Grafts; Surgeon: Adilson Stone MD; Location: [facility]; Service: Cardiovascular CARDIAC VALVE REPLACEMENT CORONARY [...] TWICE DAILY ON AN EMPTY STOMACH 180 femzoc35 docusate sodium (COLACE) 100 MG capsule Take [...] directed QID . 400 each 3 [facility] Use to check BG QID SolusV2 brand [...] are noted bilateral extremities. documented in this [id number] History of Present illness Narrative* Bess Villanueva [...] 140 mg/dL. Pt provided this RD with Honey data with TIRat 81%, GMI 6.7%, and 3% low. Goal: Continue with CHO and protein balance at meals & snacks Follow-Up: 1 month Bess Villanueva RDN, [place], [facility] Office documented in this [id number] History of Present illness Narrative* Bess Villanueva RD - 08/08/2023 4:14 PM EST 08/08/23 1449 Diabetes - Initial Consideration Pt: What would you like to talk about today?[QM] Monitoring and management Diabetes - Condition Knowledge Pt: What type of diabetes do you have? Type 2 Diabetes - Provider Information Pt: What doctor manages your diabetes?[QM] Press Washer (marketing operations specialist), name and phone number: Pt: When [...] proactive outreach. He is currently BGM with [employer]. Pt states that his blood [...] one grand-duaghter Retired [place] department of [employer] in 2006 Social Determinants of Health Financial [...] Management, Goal Assessment Bess Villanueva RDN, LD, [facility] Office Cell documented in this [id number] Telephone encounter Note* Telephone Encounter - Jeri Mccallum LPN - 08/08/2023 8:49 AM EST Last OV 07/20/23. Next OV 11/28/23. [id number] Miscellaneous Notes* Telephone Encounter - Jeri Mccallum LPN - 08/08/2023 8:49 AM EST Last OV 07/20/23. Next OV 11/28/23. documented in this [id number] History of Present illness Narrative* Sanju Bill III, - 07/28/2023 8:46 AM EST Assessment & Plan: 1. Atherosclerosis of [place] arteries of extremities with intermittent claudication, bilateral legs(HCC) 2. PAD (peripheral artery disease) (HCC) 3. Poorly controlled diabetes mellitus (HCC) 4. Type 2 diabetes mellitus with other circulatory complication, with long-term current use of insulin (HCC) 5. Persistent atrial fibrillation (HCC) 6. FPC current use of anticoagulant 7. 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 Subjective: Andrew Arnold is a 78 y.o. male seen in the office today for follow up regarding PAD with claudication. Mr. Snyder (birthdate 1945) was seen in the [place] office on July 28, 2023. It has [...] scheduled to be seen by either dietary sap ppm consultant and/or his endocrinology physician in the [...] Coronary Angiogram; Surgeon: Adilson Stone MD; Location: [facility]; Service: Cardiovascular CARDIAC CATHETERIZATION N/A 12/25/2021 Procedure: Left Heart Cath w/Grafts; Surgeon: Adilson Stone MD; Location: [facility]; Service: Cardiovascular CARDIAC VALVE REPLACEMENT CORONARY ARTERY BYPASS GRAFT 08/13/2015 3 Vessel/YEUNG to the LAD/SVG to obtuse marginal/SVG to a PDA MOUTH SURGERY 2007 Oral cancer TENDON RELEASE DEQUERVAINS Right 12/26/2018 Procedure: TENDON RELEASE DE QUERVAINS RIGHT; Surgeon: Jenaro Oquendo MD; Location: [facility]; Service: Orthopedic Family History Problem Relation Age [...] TWICE DAILY ON AN EMPTY STOMACH 180 nilyjb62 docusate sodium (COLACE) 100 MG capsule Take [...] suggesting mild arterial disease. documented in this [id number] Instructions* Patient Instructions* Nilsa Garza MA - 07/28/2023 8:46 AM EST How to contact your Care Team: Providers: DO Duane Centeno III, CNP Jill Bender, PA Nurse: Shaila Matos To reschedule office appointments call Scheduling [phone] In case of an emergency please call 911. When in need of refills please call the phone number listed above. Please include medication name, pharmacy name and specify 30 or 90 day supply Please check with your pharmacy within 24 hours of your request for refill. You must follow up as directed to continue current refills. Thank you! documented in this [id number] Instructions* Patient Instructions* Nilsa Garza MA - 06/30/2023 9:34 AM EST How to contact your Care Team: Providers: DO Duane Centeno III, CNP Jill Bender, PA Nurse: Shaila Matos To reschedule office appointments call Scheduling [phone] In case of an emergency please call 911. When in need of refills please call the phone number listed above. Please include medication name, pharmacy name and specify 30 or 90 day supply Please check with your pharmacy within 24 hours of your request for refill. You must follow up as directed to continue current refills. Thank you! documented in this [id number] History of Present illness Narrative* Sanju Bill III, DO - 06/30/2023 9:27 AM EST Assessment & Plan: 1. Atherosclerosis of [place] arteries of extremities with intermittent claudication, bilateral legs(HCC) CT Angiogram Abdominal Aorta With Lower Extremity 2. PAD (peripheral artery disease) (HCC) CT Angiogram Abdominal Aorta With Lower Extremity 3. Type 2 diabetes mellitus with other circulatory complication, with long-term current use of insulin (HCC) 4. FPC current use of anticoagulant 5. Obesity (BMI [...] Arnold (birthdate 1945) was seen in the [place] office on June 30, 2023. It has been approximately 6 months since he was seen last. He states he is doing fairly well. He states that he just returned from a cruise to the [facility]. He says that he was walking up [...] Coronary Angiogram; Surgeon: Adilson Stone MD; Location: [facility]; Service: Cardiovascular CARDIAC CATHETERIZATION N/A 12/25/2021 Procedure: [...] TWICE DAILY ON AN EMPTY STOMACH 180 docusate sodium (COLACE) 100 MG capsule Take [...] leg. Clinical correlation advised. documented in this [id number] Telephone encounter Note* Telephone Encounter - Jeri Mccallum LPN - 06/24/2023 8:09 AM EST Last OV 01/21/23. Next OV 11/28/23. [id number] Miscellaneous Notes* Telephone Encounter - Jeri Mccallum LPN - 06/24/2023 8:09 AM EST Last OV 01/21/23. Next OV 11/28/23. documented in this [id number] Instructions* Patient Instructions* Radha Hughes CNP - [...] to 0.5 mg weekly. documented in this [id number] History of Present illness Narrative* Radha Hughes [...] Syrg, Use as directed QID . lancets [facility] Use to check BG QID SolusV2 brand [...] blood tests - 4 times daily utilizing [employer] CGM. 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 Podiatry notes elevated limb loss risk score he does qualify for diabetic shoes. . Thyroid: Lab Results Component Value Date TSH 1.80 01/21/2023 Negative Other: from colon cancer March 2017. Had COVID-19 vaccine in [place]. Plan: 1. Rx changes: Adjust medications as [...] Arnold would benefit from continued use of [employer] continuous glucose monitoring system. Patient has had [...] Call if BG consistently <70 or >250. [phone] Patient has been checking blood glucoses 4 [...] A1c T4, Free TSH documented in this [id number] History of Present illness Narrative* Hola Arroyo [...] cool proximal to distal. Nails left foot 56814 and right foot 79899 are elongated thickened mycotic crumbling dystrophic. Neuro: [...] Follow-up in 3 months documented in this [id number] Evaluation + Plan note* Assessment & Plan Note - Preston Healy MD - 03/04/2023 4:36 PM EDT Associated Problem(s): S/P aortic valve replacement Mayeck echo. [id number] Miscellaneous Notes* Assessment & Plan Note - [...] degree of aortic stenosis documented in this [id number] Evaluation + Plan note* Assessment & Plan Note - Preston Healy MD - 03/04/2023 4:35 PM EDT Associated Problem(s): S/P CABG (coronary artery bypass graft) Rare if any angina. Somewhat atypical chest discomfort medical therapy [id number] Evaluation + Plan note* Assessment & Plan Note - Preston Healy MD - 03/04/2023 4:35 PM EDTAssociated Problem(s): A-fib (HCC) Check echocardiogram for LV function and a degree of aortic stenosis [id number] History of Present illness Narrative* Preston Healy MD - 03/04/2023 8:40 AM EDT [facility] [address] [facility] [address] [facility] [address] Subjective: Andrew Arnold is a 77 y.o. male seen in the office today for Chief Complaint Patient presents with Follow-up 6 mo - occasional cp left sided states its been going on for years, asking ab keto diet Denies any significant chest pains. Is limited by his claudication lower extremities following closely with [facility]. EKG A-fib chronic rate controlled right bundle [...] reviewed. Overview of Problems Addressed: Problem A-Fib ([facility]) Holter monitor A. fib throughout with rate [...] Heart cath December 2021 patent grafts severe [place] coronary artery disease Medical therapy ON 08/11/[address] SONAM MÉNDEZ History of coronary bypass grafting 3 History of tissue aortic valve replacement early August 2015. S/P Aortic Valve Replacement 08/26 tissue AVR. 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 2021 Assessment & Plan: As above. A-fib ([facility]) Check echocardiogram for LV function and a degree of aortic stenosis S/P CABG (coronary artery bypass graft) Rare if any angina. Somewhat atypical chest discomfort medical therapy S/P aortic valve replacement Recheck echo. Histories: Past Medical History: Diagnosis Date Aortic valve calcification Arrhythmia Atrial fibrillation (HCC) after CABG CAD (coronary artery disease) 3 Vessel Claudication ([facility]) Left lower extremity symptoms Fractures Hypertension Mitral valve annular calcification Myocardial infarction (HCC) 08/02/2015 Non-ST Obesity Oral cancer (HCC) Pilonidal cyst Subdural hematoma ([facility]) 2008 minor trauma while on Plavix at the time. Tendonitis of wrist, right TIA (transient ischemic attack) 2007 was put on plavix then had subdural one year later. Vitreous hemorrhage of left eye ([facility]) Past Surgical History: Procedure Laterality Date AORTIC VALVE REPLACEMENT CARDIAC CATHETERIZATION CARDIAC CATHETERIZATION N/A 12/25/2021 Procedure: Coronary Angiogram; Surgeon: Adilson Stone MD; Location: [facility] [employer] [facility] [facility]; Service: Cardiovascular CARDIAC CATHETERIZATION N/A 12/25/2021 Procedure: Left Heart Cath w/Grafts; Surgeon: Adilson Stone MD; Location: [facility]; Service: Cardiovascular CARDIAC VALVE REPLACEMENT CORONARY [...] Neurological: Negative for dizziness. documented in this [id number] Instructions* Patient Instructions* Tianna Conn MA - 02/22/2023 2:41 PM EDT How to Contact your Care Team: Provider: Dr. Preston Healy MD Hourly Shift: Yun Darnell, RYLEY documented in this [id number] Evaluation + Plan note* Assessment & Plan [...] look into GI referral and possible colonoscopy [id number] Miscellaneous Notes* Assessment & Plan Note - [...] 01/21/2023 10:17 AM EDTAssociated Problem(s): Atherosclerosis of [place] arteries of extremities with intermittent claudication, bilateral legs (HCC) Meeting with vascular in 6 months, stable and improving on cilostazol, simvastatin, aspirin and eliquis * Assessment & Plan Note - Vivien Foreman MD - 01/21/2023 10:16 AM EDTAssociated Problem(s): A-fib (HCC) Doing well, asymptomatic , stable on eliquis and metoprolol documented in this [id number] Evaluation + Plan note* Assessment & Plan Note - Vivien Foreman MD - 01/21/2023 10:17 AM EDTAssociated Problem(s): Atherosclerosis of [place] arteries of extremities with intermittent claudication, bilateral legs (HCC) Meeting with vascular in 6 months, stable and improving on cilostazol, simvastatin, aspirin and eliquis [id number] Evaluation + Plan note* Assessment & Plan Note - Vivien Foreman MD - 01/21/2023 10:16 AM EDTAssociated Problem(s): A-fib (HCC) Doing well, asymptomatic , stable on eliquis and metoprolol [id number] History of Present illness Narrative* Vivien Foreman [...] with minimal exertion or when working on [employer] and sometimes while watching TV. Associated with [...] he has been having trouble walking through [place] that he needs to stop given pain [...] Coronary Angiogram; Surgeon: Adilson Stone MD; Location: [facility]; Service: Cardiovascular CARDIAC CATHETERIZATION N/A 12/25/2021 Procedure: Left Heart Cath w/Grafts; Surgeon: Adilson Stone MD; Location: [facility]; Service: Cardiovascular CARDIAC VALVE REPLACEMENT CORONARY [...] simvastatin (ZOCOR) 40 MG tablet Atherosclerosis of [place] arteries of extremities with intermittent claudication, bilateral [...] for medicare wellness. VIVIEN FOREMAN MD [facility] [address] Dept: [phone] Over the last 2 weeks, how often [...] Somewhat difficult Somewhat difficult documented in this [id number] History of Present illness Narrative* Hola Arroyo [...] cool proximal to distal. Nails left foot 14135 and right foot 82939 are elongated thickened mycotic crumbling dystrophic. Neuro: [...] Follow-up in 3 months documented in this [id number] Instructions* Patient Instructions* Nilsa Garza MA - 12/09/2022 8:28 AM EDT How to contact your Care Team: Providers: DO Duane Centeno III, CNP Jill Bender, PA Nurse: Kalyn Stewart RN To reschedule office appointments call Scheduling [phone] In case of an emergency please call 911. When in need of refills please call the phone number listed above. Please include medication name, pharmacy name and specify 30 or 90 day supply Please check with your pharmacy within 24 hours of your request for refill. You must follow up as directed to continue current refills. Thank you! documented in this [id number] History of Present illness Narrative* Sanju Bill LAQUITA, DO - 12/09/2022 8:24 AM EDT Assessment & Plan: 1. Atherosclerosis of [place] arteries of extremities with intermittent claudication, bilateral legs(HCC) US Doppler ankle/brachial index 2. PAD (peripheral artery disease) (HCC) US Doppler ankle/brachial index 3. Type 2 diabetes mellitus with other circulatory complication, with long-term current use of insulin (HCC) 4. Obesity (BMI 30-39.9) 5. FPC current use of anticoagulant Plan: At the [...] (around 06/10/2023) for Recheck with testing in [place] office.. Subjective: Andrew Arnold is a 77 y.o. male seen in the office today for follow up regarding PAD with claudication. Mr. Arnold (birthday 1945) was seen in the [place] office on December 09, 2022. It has [...] Oral cancer (HCC) Pilonidal cyst Subdural hematoma ([facility]) 2008 minor trauma while on Plavix at the time. Tendonitis of wrist, right TIA (transient ischemic attack) 2007 was put on plavix then had subdural one year later. Vitreous hemorrhage of left eye (HCC) Past Surgical History: Procedure Laterality Date AORTIC VALVE REPLACEMENT CARDIAC CATHETERIZATION CARDIAC CATHETERIZATION N/A 12/25/2021 Procedure: Coronary Angiogram; Surgeon: Adilson Stone MD; Location: [facility]; Service: Cardiovascular CARDIAC CATHETERIZATION N/A 12/25/2021 Procedure: Left Heart Cath w/Grafts; Surgeon: Adilson Stone MD; Location: [facility]; Service: Cardiovascular CARDIAC VALVE REPLACEMENT CORONARY [...] Content: Thought content normal. documented in this [id number] Telephone encounter Note* Telephone Encounter - Jaclyn Chowdhury MA - 08/27/2022 11:04 AM EST Refill request through [employer] for bumex and metoprolol succ to be sent to [facility] in [place]. Called pt. to verify he was in need of us to send to this pharmacy and pt. verified he did need meds sent. Last OV 05/14/22. Refills appropriate. [id number] Miscellaneous Notes* Telephone Encounter - Jaclyn Chowdhury MA - 08/27/2022 11:04 AM EST Refill request through [employer] for bumex and metoprolol succ to be sent to [facility] in [place]. Called pt. to verify he was in need of us to send to this pharmacy and pt. verified he did need meds sent. Last OV 05/14/22. Refills appropriate. documented in this [id number] Evaluation + Plan note* Assessment & Plan Note - Vivien Foreman MD - 07/23/2022 4:36 PM ESTAssociated Problem(s): Atherosclerosis of [place] arteries of extremities with intermittent claudication, bilateral legs (HCC) Meeting with vascular in 6 months, stable and improving on cilostazol [id number] Evaluation + Plan note* Assessment & Plan Note - Vivien Foreman MD - 07/23/2022 4:36 PM ESTAssociated Problem(s): PAD (peripheral artery disease) (HCC) Stable and improving on cilostazol [id number] Evaluation + Plan note* Assessment & Plan Note - Vivien Foreman MD - 07/23/2022 4:36 PM ESTAssociated Problem(s): Mild major depression (HCC) Significantly improving on Lexapro 5 mg, prescriptions ordered for refills. Will continue to monitor [id number] Miscellaneous Notes* Assessment & Plan Note - Vivien Foreman MD - 07/23/2022 4:36 PM ESTAssociated Problem(s): Atherosclerosis of [place] arteries of extremities with intermittent claudicat ion, [...] right side. Follow up with neurosurgery in [facility] showing improving and self limited subdural collection. [...] if it is persistent documented in this [id number] Evaluation + Plan note* Assessment & Plan Note - Vivien Foreman MD - 07/23/2022 4:35 PM ESTAssociated Problem(s): Morbid obesity (HCC) Working on lifestyle modifications. Performing daily activities and physical activity. [id number] Evaluation + Plan note* Assessment & Plan Note - Vivien Foreman MD - 07/23/2022 4:35 PM ESTAssociated Problem(s): Traumatic subdural hemorrhage Had a mechanical fall back in 2007 without losing consciousness. Evaluated in ER, CT head showed subdural interhemispheric fissure on the right side. Follow up with neurosurgery in [facility] showing improving and self limited subdural collection. No headaches at this time. 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 - Follow up annually told doesn't need to follow up [id number] Evaluation + Plan note* Assessment & Plan Note - Vivein Foreman MD - 07/23/2022 1:02 PM ESTAssociated Problem(s): Cough Post viral cough Continue to monitor for another month and let me know if it is persistent [id number] History of Present illness Narrative* Vivien Foerman MD - 07/23/2022 12:44 PM EST Chief [...] with minimal exertion or when working on [employer] and sometimes while watching TV. Associated with [...] Coronary Angiogram; Surgeon: Adilson Stone MD; Location: [facility]; Service: Cardiovascular CARDIAC CATHETERIZATION N/A 12/25/2021 Procedure: Left Heart Cath w/Grafts; Surgeon: Adilson Stone MD; Location: [facility]; Service: Cardiovascular CARDIAC VALVE REPLACEMENT CORONARY [...] Stable and improving on cilostazol Atherosclerosis of [place] arteries of extremities with intermittent claudication, bilateral legs (HCC) Meeting with vascular in 6 months, stable and improving on cilostazol Nervous and Auditory Traumatic subdural hemorrhage Had a mechanical fall back in 2007 without losing consciousness. Evaluated in ER, CT head showed subdural interhemispheric fissure on the right side. Follow up with neurosurgery in [facility] showing improving and self limited subdural collection. [...] Follow Up. VIVIEN FOREMAN MD [facility] [address] [facility] [address] [facility] [address] Dept: [phone] Over the last 2 weeks, how often [...] Somewhat difficult Somewhat difficult documented in this [id number] History of Present illness Narrative* Hloa Arroyo Jr., DPM - 07/09/2022 8:29 AM [...] cool proximal to distal. Nails left foot 85229 and right foot 15053 are elongated thickened mycotic crumbling dystrophic. Neuro: [...] Follow-up in 3 months documented in this [id number] Evaluation + Plan note* Assessment & Plan Note - Vivien Foreman MD - 06/15/2022 8:33 AM ESTAssociated Problem(s): PAD (peripheral artery disease) (HCC) Stable and improving on cilostazole [id number] Miscellaneous Notes* Assessment & Plan Note - Vivien Foreman MD - 06/15/2022 8:33 AM ESTAssociated Problem(s): PAD (peripheral artery disease) ([facility]) Stable and improving on cilostazole * Assessment & Plan Note - Vivien Foreman MD - 06/15/2022 8:32 AM ESTAssociated Problem(s): A-fib ([facility]) Doing well , stable on eliquis [...] up in one month documented in this [id number] Evaluation + Plan note* Assessment & Plan Note - Vivien Foreman MD - 06/15/2022 8:32 AM ESTAssociated Problem(s): A-fib (HCC) Doing well , stable on eliquis and metoprolol [id number] Evaluation + Plan note* Assessment & Plan Note - Vivien Foreman MD - 06/15/2022 8:32 AM ESTAssociated Problem(s): Advanced directives, counseling/discussion Patient was counseled about advanced directives and code status, given forms for DNR Encouraged to discuss with partner and kids. [id number] History of Present illness Narrative* Rosi Casarez [...] Directive (Living Will and/or Durable Power of Soaking Room Operator for Health Care)? If not, would you [...] right]. Use a different list each time.: elba guzman table Version Used: Version 2: Elba [...] and doing better. 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 Intermittent claudications/PAD: Mentioned that for a while now he has been having trouble walking through [place] that he needs to stop given pain [...] S/P aortic valve replacement Fractured sternal wires ([facility]) Type 2 diabetes mellitus with retinopathy of both eyes, with long-term current use of insulin ([facility]) Hypercholesterolemia Iron deficiency anemia RBBB Wrist pain, chronic, right De Quervain's disease (radial styloid tenosynovitis) DDD (degenerative disc disease), lumbar Malignant neoplasm of buccal sulcus (HCC) Morbid obesity ([facility]) Benign prostatic hyperplasia with urinary retention Hearing loss, sensorineural Traumatic subdural hemorrhage Skin mole A-fib ([facility]) Balance disorder Anxiety and depression 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) PAD (peripheral artery disease) ([facility]) Atherosclerosis of [place] arteries of extremities with intermittent claudication, bilateral legs ([facility]) Diabetes mellitus ([facility]) Past Medical History: Diagnosis Date Aortic valve calcification Arrhythmia Atrial fibrillation ([facility]) after CABG CAD (coronary artery disease) 3 Vessel Claudication ([facility]) Left lower extremity symptoms Fractures Hypertension Mitral valve annular calcification Myocardial infarction ([facility]) 08/02/2015 Non-ST Obesity Oral cancer ([facility]) Pilonidal cyst Subdural hematoma 2008 minor trauma while on Plavix at the time. Tendonitis of wrist, right TIA (transient ischemic attack) 2007 was put on plavix then had subdural one year later. Vitreous hemorrhage of left eye ([facility]) Past Surgical History: Procedure Laterality Date AORTIC VALVE REPLACEMENT CARDIAC CATHETERIZATION CARDIAC CATHETERIZATION N/A 12/25/2021 Procedure: Coronary Angiogram; Surgeon: Adilson Stone MD; Location: [facility]; Service: Cardiovascular CARDIAC CATHETERIZATION N/A 12/25/2021 Procedure: Left Heart Cath w/Grafts; Surgeon: Adilson Stone MD; Location: [facility]; Service: Cardiovascular CARDIAC VALVE REPLACEMENT CORONARY ARTERY BYPASS GRAFT 08/13/2015 3 Vessel/YEUNG to the LAD/SVG to obtuse marginal/SVG to a PDA MOUTH SURGERY 2007 Oral cancer TENDON RELEASE DEQUERVAINS Right 12/26/2018 Procedure: TENDON RELEASE DE QUERVAINS RIGHT; Surgeon: Jenaro Oquendo MD; Location: [facility] OR; Service: Orthopedic Current Outpatient Medications Medication [...] one grand-duaghter Retired [place] [employer] in 2005 Allergies: Allergies Allergen Reactions Pioglitazone GI Intolerance Care Team Patient Care Team: Vivien Foreman MD as PCP - General (Family Medicine) Radha Hughes CNP as Nurse Practitioner (Nurse Practitioner) Preston Healy MD as Consulting Physician (Cardiovascular Disease) Adilson Stone MD (Cardiology) Hola Arroyo Jr., DPM (Podiatry) Sanju Bill III, DO as Consulting Physician (Vascular Surgery) Pharmacy / Equipment Co. (DME) [facility] [address] [address] [address] [address] [facility] [address] [place] [phone] Objective Blood pressure 104/62, pulse 87, temperature [...] all - Somewhat difficult documented in this [id number] Evaluation + Plan note* Assessment & Plan [...] Encouraged to discuss with partner and kids. [id number] Evaluation + Plan note* Assessment & Plan Note - Vivien Foreman MD - 06/14/2022 8:20 AM ESTAssociated Problem(s): Mild major depression (HCC) PHQ9 score 10 and GAD7 score 8 Had a lengthy discussion about counseling vs medication He was in favor of taking medication and starting on lexapro 5 mg Close follow up in one month [id number] Instructions* Patient Instructions* Vivien Foreman MD - 06/14/2022 8:18 AM EST STEADI Low Risk Patient Instructions: Your Falls Screening today shows that you are at low risk for falls. To further protect yourself from falls and maintain your independence, we recommend: 1. Read through the brochure, What You Can Do to Prevent Falls (from [facility]). 2. Go through the brochure, Check for Safety: A Home Fall Prevention Checklist for Older Adults (from [facility]), and make changes as recommended. 3. [...] blankets, or other objects on the floor? A.supervisor cook room things that are on the floor. Always keep objects off the floor. Q: Do you have to walk over or around wires or cords (like lamp, telephone, or extension cords)? A. Coil or tape cords and wires next to the wall so you can t trip over them. If needed, have an electronic gaming device supervisor put in another outlet. STAIRS AND STEPS: Look at the stairs you use both inside and outside your home. Q: Are there papers, shoes, books, or other objects on the stairs? A. supervisor cook room things on the stairs. Always keep objects off stairs. Q: Are some steps broken or uneven? A. Fix loose or uneven steps. Q: Are you missing a light over the stairway? A. Have an electronic gaming device supervisor put in an overhead light at the top and bottom of the stairs. Q: Do you have only one light switch for your stairs (only at the top or at the bottom of the stairs)? A. Have an electronic gaming device supervisor put in a light switch at the [...] at all the medicines you take, even azma-fmo-udmnjep medicines.Some medicines can make you sleepy or [...] lightweight curtains or shades to reduce glare. [place] a contrasting color on the top edge [...] vision, and medications. Classes are offered at [facility]. To find out specifics about a class, please call [phone]. Gaetano chi: Moving for Better Balance involves low impact exercise. The 12-week class is offered for three hours per week and is led by a trained upholstery instructor. It is intended for people aged [...] additional resources about fall prevention please contact: [facility] Violence and Injury Prevention Program at [phone] or [email or web address] A Matter of Balance: Managing Concerns about Falls is an evidence based program designed to reduce the fear of falling and increase activity levels of older adults. A trained coffee weigher leads 8 two-hour sessions for small groups [...] at home. Classes are offered in all [address] [place] [address] in [place]. For more information about specific classes near you, please visit http://aging.[place].gov/steadyu/resources/matterofbalance.aspx. documented in this [id number] Evaluation + Plan note* Assessment & Plan Note - Preston Healy MD - 05/14/2022 9:16 AM EDT Associated Problem(s): S/P aortic valve replacement Reviewed. [id number] Evaluation + Plan note* Assessment & Plan Note - Preston Healy MD - 05/14/2022 9:16 AM EDTAssociated Problem(s): S/P CABG (coronary artery bypass graft) No angina no evidence of heart failure. [id number] Miscellaneous Notes* Assessment & Plan Note - [...] Problem(s): A-fib (HCC) Reviewed. documented in this [id number] Evaluation + Plan note* Assessment & Plan Note - Preston Healy MD - 05/14/2022 9:15 AM EDT Associated Problem(s): A-fib (HCC) Reviewed. [id number] History of Present illness Narrative* Preston Healy MD - 05/14/2022 9:13 AM EDT [facility] [address] [facility] [address] [facility] [address] Subjective: Andrew Arnold is a 76 y.o. [...] of moderate prosthetic aortic valve stenosis severe [place] coronary disease with patent coronary grafting by [...] Heart cath December 2021 patent grafts severe [place] coronary artery disease Medical therapy ON 08/11/2015 [...] Date Aortic valve calcification Arrhythmia Atrial fibrillation ([facility]) after CABG CAD (coronary artery disease) 3 Vessel Claudication ([facility]) Left lower extremity symptoms Fractures Hypertension Mitral valve annular calcification Myocardial infarction (HCC) 08/02/2015 Non-ST Obesity Oral cancer (HCC) Pilonidal cyst Subdural hematoma 2008 minor trauma while on Plavix at the time. Tendonitis of wrist, right TIA (transient ischemic attack) 2007 was put on plavix then had subdural one year later. Vitreous hemorrhage of left eye ([facility]) Past Surgical History: Procedure Laterality Date AORTIC VALVE REPLACEMENT CARDIAC CATHETERIZATION CARDIAC CATHETERIZATION N/A 12/25/2021 Procedure: Coronary Angiogram; Surgeon: Adilson Stone MD; Location: [facility]; Service: Cardiovascular CARDIAC CATHETERIZATION N/A 12/25/2021 Procedure: Left Heart Cath w/Grafts; Surgeon: Adilson Stone MD; Location: [facility]; Service: Cardiovascular CARDIAC VALVE REPLACEMENT CORONARY [...] Neurological: Negative for dizziness. documented in this [id number] Instructions* Patient Instructions* Tianna Conn MA - 05/14/2022 8:30 AM EDT How to Contact your Care Team: Provider: Dr. Preston Healy MD Hourly Shift: Yun Darnell RN documented in this [id number] History of Present illness Narrative* Hola Arroyo [...] cool proximal to distal. Nails left foot 93827 and right foot 30606 are elongated thickened mycotic crumbling dystrophic. Neuro: [...] Follow-up in 3 months documented in this [id number] Telephone encounter Note* Telephone Encounter - Tianna Conn MA - 04/05/2022 8:45 AM EDT Last ov 06/19/21 w/ Dr. Healy Upcoming 05/14/22 [id number] Miscellaneous Notes* Telephone Encounter - Tianna Conn MA - 04/05/2022 8:45 AM EDT Last ov 06/19/21 w/ Dr. Healy Upcoming 05/14/22 documented in this [id number] Instructions* Patient Instructions* Nilsa Garza MA - 03/17/2022 2:14 PM EDT How to contact your Care Team: Providers: DO Duane Centeno III, CNP Jill Bender, PA Nurse: Kalyn Stewart RN To reschedule office appointments call Scheduling [phone] In case of an emergency please call 911. When in need of refills please call the phone number listed above. Please include medication name, pharmacy name and specify 30 or 90 day supply Please check with your pharmacy within 24 hours of your request for refill. You must follow up as directed to continue current refills. Thank you! documented in this [id number] History of Present illness Narrative* Sanju Bill LAQUITA, DO - 03/17/2022 1:42 PM EDT Assessment & Plan: 1. Atherosclerosis of [place] arteries of extremities with intermittent claudication, bilateral legs(HCC) Ambulatory referral to Vascular Surgery cilostazoL (PLETAL) 100 MG tablet 2. PAD (peripheral artery disease) ([facility]) Ambulatory referral to Vascular Surgery cilostazoL [...] recommend that he get into see his nnp for further therapy and possibly gettinginto diabetic [...] 2022. 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 This patient describes [...] his claudication symptomatology. He does see a nnp, but only for trimming his toenails. He [...] Coronary Angiogram; Surgeon: Adilson Stone MD; Location: [facility]; Service: Cardiovascular CARDIAC CATHETERIZATION N/A 12/25/2021 Procedure: Left Heart Cath w/Grafts; Surgeon: Adilson Stone MD; Location: [facility]; Service: Cardiovascular CARDIAC VALVE REPLACEMENT CORONARY [...] 0.67. Clinical correlation advised. documented in this [id number] Telephone encounter Note* Telephone Encounter - Yanna Minor CNP - 03/08/2022 6:27 AM EDT I have refilled medication, just FYI [id number] Miscellaneous Notes* Telephone Encounter - Yanna Minor CNP - 03/08/2022 6:27 AM EDT I have refilled medication, just FYI documented in this [id number] Evaluation + Plan note* Assessment & Plan [...] Continue on aspirin and simvastatin 40 mg. [id number] Evaluation + Plan note* Assessment & Plan [...] exam: 12/22/21, obtaining records Foot exam: 10/30/21 [id number] Miscellaneous Notes* Assessment & Plan Note - [...] to monitor alongside cardiology. documented in this [id number] Evaluation + Plan note* Assessment & Plan Note - Vivien Foreman MD - 02/22/2022 8:25 AM EDTAssociated Problem(s): 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) Encouraged to call his eye doctor to schedule an appointment. [id number] Evaluation + Plan note* Assessment & Plan Note - Vivien Foreman MD - 02/22/2022 8:25 AM EDTAssociated Problem(s): Intermittent claudication (HCC) Chronic , has appointment with on 03/11/22 Concern for PAD. Discussed importance of regular physical activity and exercise. Optimizing underlying risk factors as hypertension and diabetes which are improving. [id number] Evaluation + Plan note* Assessment & Plan Note - Vivien Foreman MD - 02/22/2022 8:24 AM EDTAssociated Problem(s): Postoperative atrial fibrillation (HCC) Persistent A. fib for which she has rate controlled on metoprolol as well as Eliquis. Continue to monitor alongside cardiology. [id number] History of Present illness Narrative* Vivien Foreman [...] and doing better. 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 Chest discomfort: Left-sided chest pain occurs every other day sometimes with minimal exertion or when working on [employer] and sometimes while watching TV. Associated with [...] he has been having trouble walking through [place] that he needs to stop given pain in bilateral anterior thighs. 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 Healy who recommended getting checked for [...] Coronary Angiogram; Surgeon: Adilson Stone MD; Location: [facility]; Service: Cardiovascular CARDIAC CATHETERIZATION N/A 12/25/2021 Procedure: Left Heart Cath w/Grafts; Surgeon: Adilson Stone MD; Location: [facility]; Service: Cardiovascular CARDIAC VALVE REPLACEMENT CORONARY [...] eyes, with long-term current use of insulin ([facility]) A1c 10.6 in September 2021, improved [...] Annual Exam. VIVIEN FOREMAN MD [facility] [address] [facility] [address] [facility] [address] Dept: [phone] Over the last 2 weeks, how often [...] difficult at all - documented in this [id number] History of Present illness Narrative* Radha Hughes [...] blood tests - 4 times daily utilizing [employer] CGM. 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 Arroyo History of foot ulceration: No History of amputation: No Thyroid: Lab Results Component Value Date TSH 1.99 10/08/2021 Negative Other: from colon cancer March 2017. Had COVID-19 vaccine in [place]. Plan: 1. Rx changes: Adjust medications as [...] Arnold would benefit from continued use of CromoUpe continuous glucose monitoring system. Patient has had [...] Call if BG consistently <70 or >250. [phone] Patient has been checking blood glucoses 4 [...] Free TSH Lipid Panel documented in this [id number] History of Present illness Narrative* Hola Arroyo [...] cool proximal to distal. Nails left foot 94731 and right foot 18346 are elongated thickened mycotic crumbling dystrophic. Neuro: [...] Follow-up in 3 months documented in this [id number] History of Present illness Narrative* Preston Healy [...] XL to twice daily. documented in this [id number] History of Present illness Narrative* Yun Darnell RN - 12/22/2021 9:21 AM EDT [facility] scheduled for Tuesday12-25-21 arrival time of 9:00 a.m. with a procedure time of 11:[address] Healy, the patient is to increase his Metoprolol XL 25 mg to twice daily and have an Echo priorto Heart Cath on Tuesday. Patient notified and new Rx to be sent to the [facility] in [place]. Echo is scheduled for today at 2:15 p.m. * Yun Darnell RN - 12/22/2021 8:43 AM EDT Patient set up for [facility] for an abnormal stress test. Dr Healy to discuss procedure with patient. Labs ordered and consent obtained. Written and verbal instructions given to patient. documented in this [id number] Instructions* Patient Instructions* Yun Darnell RN - 12/22/2021 8:45 AM EDT How to Contact your Care Team: Provider: Dr. Preston Healy MD Hourly Shift: Yun Darnell RN Heart Catheterization Date and Time of your procedure Tuesday12-25-21 at 11:00 a.m. [facility] at [facility] and check in at the Outpatient Registration [...] questions or concerns please contact us at [phone]. 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 Follows with Podiatry: Yes Hole Digger: Dr. Arroyo History of foot ulceration: No History of amputation: No Thyroid: Lab Results Component Value Date TSH 1.99 10/08/2021 Negative Other: from colon cancer March 2017. Had COVID-19 vaccine in [place]. Plan: 1. Rx changes: Adjust medications as [...] 6 units fast acting insulin Remain off [facility] due to cost. Mr. Arnold would benefit from [employer] continuous glucose monitoring system. Patient has had [...] Call if BG consistently <70 or >250. [phone] Patient has been checking blood glucoses 4 [...] A1c CBC and Differential documented in this [id number] History of Present illness Narrative* Preston Healy MD - 06/19/2021 8:58 AM EST Telephone Visit Via Phone Call [facility] [address] [facility] [address] Telephone Visit [facility] 06/19/2021 Preston Healy MD Provider Location: Patient Location Looper Fixer: None Patient Location: Patient's Home Patient: Andrew [...] there are inherent diagnostic limitations compared to rxuq-yp-tyse evaluations. We elected toproceed with the telephone visit telemedicine consultation. HPI Telephone visit today. Due to patient having cough and cold symptoms. No fever no chills. Precaution. Cardiac grene patient doing well denies any chest pain [...] atrial fibrillation (HCC) Coronary artery disease involving [place] heart without angina pectoris, unspecified vessel or lesion type I have spent 21 minutes with the patient reviewing the HPI and Plan of Care. * Tianna Conn MA - 06/19/2021 8:26 AM EST Review of Systems Constitutional: Negative for malaise/fatigue. Cardiovascular: Negative for chest pain, dyspnea on exertion, leg swelling and palpitations. Neurological: Negative for dizziness. documented in this [id number] Instructions* Patient Instructions* Tianna Conn MA - 06/19/2021 8:22 AM EST How to Contact your Care Team: Provider: Dr. Preston Healy MD Hourly Shift: Yun Darnell RN REFILLS: When in need for refills please call your care team or the office at [phone]. Please include medication name, pharmacy name, and specify 30-day or 90-day supply. Please check with your pharmacy within 24 hours of request for your refill. You must follow up as directed to continue current refills. Thank you! 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 Follows with Podiatry: Yes Hole Digger: Dr. Cruz History of foot ulceration: No History of amputation: No Thyroid: Lab Results Component Value Date TSH 1.85 06/12/2021 Negative Other: from colon cancer March 2017. Had COVID-19 vaccine in [place]. Plan: 1. Rx changes: Continue current regimen [...] Call if BG consistently <70 or >250. [phone] Patient has been checking blood glucoses 4 [...] Panel TSH T4, Free documented in this [id number] Miscellaneous Notes* Assessment & Plan Note - Vivien Foreman MD - 06/12/2021 10:32 AM EST Associated Problem(s): Anxiety and depression PHQ 9 Score 8 MILLER 7 Score 15 Grieving appropriately , receiving counseling at this time , not interested in medications. Will continue to monitor and provide support whenever needed. documented in this [id number] Instructions* Patient Instructions* Vivien Foreman MD - 06/12/2021 10:12 AM EST STEADI Low Risk Patient Instructions: Your Falls Screening today shows that you are at low risk for falls. To further protect yourself from falls and maintain your independence, we recommend: 1. Read through the brochure, What You Can Do to Prevent Falls (from [facility]). 2. Go through the brochure, Check for Safety: A Home Fall Prevention Checklist for Older Adults (from [facility]), and make changes as recommended. 3. [...] blankets, or other objects on the floor? A.supervisor cook room things that are on the floor. Always keep objects off the floor. Q: Do you have to walk over or around wires or cords (like lamp, telephone, or extension cords)? A. Coil or tape cords and wires next to the wall so you can t trip over them. If needed, have an electronic gaming device supervisor put in another outlet. STAIRS AND STEPS: Look at the stairs you use both inside and outside your home. Q: Are there papers, shoes, books, or other objects on the stairs? A. supervisor cook room things on the stairs. Always keep objects off stairs. Q: Are some steps broken or uneven? A. Fix loose or uneven steps. Q: Are you missing a light over the stairway? A. Have an electronic gaming device supervisor put in an overhead light at the top and bottom of the stairs. Q: Do you have only one light switch for your stairs (only at the top or at the bottom of the stairs)? A. Have an electronic gaming device supervisor put in a light switch at the [...] at all the medicines you take, even qlzh-jut-fzfnxqg medicines.Some medicines can make you sleepy or [...] lightweight curtains or shades to reduce glare. [place] a contrasting color on the top edge [...] vision, and medications. Classes are offered at [facility]. To find out specifics about a class, please call [phone]. Gaetano chi: Moving for Better Balance involves low impact exercise. The 12-week class is offered for three hours per week and is led by a trained upholstery instructor. It is intended for people aged [...] additional resources about fall prevention please contact: [facility] Violence and Injury Prevention Program at [phone] or HealthyO@[facility].[place].gov A Matter of Balance: Managing Concerns about Falls is an evidence based program designed to reduce the fear of falling and increase activity levels of older adults. A trained coffee weigher leads 8 two-hour sessions for small groups [...] at home. Classes are offered in all [address] [place] [address] in [place]. For more information about specific classes near you, please visit http://aging.[place].gov/steadyu/resources/matterofbalance.aspx. documented in this [id number] History of Present illness Narrative* Yvette Miguel LPN - 06/12/2021 10:09 AM EST PHQ 9 Score 8 MILLER 7 Score 15 Falls Risk 5 * Vivien Foreman MD - 06/12/2021 10:00 AM EST Chief Complaint Patient presents with Follow-up 4 month f/u- Feeling a little better but still struggling Not sure when next counseling appointment Fall Risk Screening HPI: Andrew Anrold is a 75-year-old gentleman presenting today for [...] skin once a week . FLU VACC [id number],65YR UP,-PF (FLUZONE HIGH-DOSE) SYRINGE Sign this order in conjunction with the immunization order to satisfy [place] Board of Pharmacy Positive ID requirements for [...] Encounter for immunization Relevant Medications flu vacc bu1317-64,65yr up,-PF (FLUZONE HIGH-DOSE) syringe Other Relevant Orders Influenza vaccine IIV4 High Dose (Completed) I spent over 45 mins reviewing patient's chart , HPI and coordicating plan of care. Return in about 6 months (around 12/11/2021) for Annual Exam. VIVIEN FOREMAN MD [facility] [address] [facility] [address] [facility] [address] Dept: [phone] Over the last 2 weeks, how often [...] difficult - Somewhat difficult documented in this [id number] History of Present illness Narrative* Hola Arroyo [...] cool proximal to distal. Nails left foot 18477 and right foot 24660 are elongated thickened mycotic crumbling dystrophic. Neuro: [...] Follow-up in 3 months documented in this [id number] History of Present illness Narrative* GONZALO Hercules - 03/03/2021 2:19 PM EDT P reached out to [facility] regarding BH referral placed by PCP. [facility] left message including contact information with request for a return call. [facility] will follow up in 1 week. documented in this [id number] Miscellaneous Notes* Assessment & Plan Note - [...] up in 2-3 months documented in this [id number] Instructions* Patient Instructions* Vivien Foreman MD - [...] Relevant Orders Ambulatory Ref to [place] [facility] [employer] Debeader Encounter for immunization Relevant Medications varicella-zoster gE [...] look into their status. Customer Service/Billing Questions: [phone] [facility] Assistance: [phone] or [phone] Financial Assistance: [phone] or [phone] As of July 16, 2019 my schedule [...] the QR code OR Visit the website [email or web address] Current as of: June 26, 2020 Content Version: 12.9 Zhitu. Care instructions adapted under license by your healthcare professional. If you have questions about a medical condition or this instruction, always ask your healthcare professional. [employer] disclaims any warranty or liability for your [...] 2. Slowly rotate your hips in a cheesh-na pattern. Keep the movement focused at your hips. 3. Repeat, but cheesh-na in the other direction. 4. Repeat 8 [...] more? Log into your personal health record on?[email or web address].Seedrs?and enter\I011?in the Education box to learn more about Therapeutic Ball: Back Exercises. Current as of: May 26, 2020 Content Version: 12.9 Zhitu. Care instructions adapted under license by your healthcare professional. If you have questions about a medical condition or this instruction, always ask your healthcare professional. [employer] disclaims any warranty or liability for your [...] more? Log into your personal health record on?[email or web address]://Paradigm.Scopix.Secure Software?and enter X601?in the Education box to learn more about Diabetes and Preventing Falls: Care Instructions. Current as of: June 16, 2020 Content Version: 12.9 Zhitu. Care instructions adapted under license by your healthcare professional. If you have questions about a medical condition or this instruction, always ask your healthcare professional. [employer] disclaims any warranty or liability for your use of this information. documented in this [id number] History of Present illness Narrative* Vivien Foreman [...] Directive (Living Will and/or Durable Power of Soaking Room Operator for Health Care)?: Yes What is your [...] one grand-duaghter Retired [place] department of [employer] in 2005 Social Determinants of Health Financial [...] Friends and Family: Not on file Attends Islam Services: Not on file Active Member of [...] (Family Medicine) Pharmacy / Equipment Co. (DME) [facility] [address] [place], [place] [address] [facility] [address] [facility] [address] [facility] [address] - [place], [place] [address] [facility] [address] [facility] [address] Objective Blood pressure 120/62, pulse 83, temperature [...] placed today. Relevant Orders Ambulatory Ref to [place] [facility] [employer] Debeader Other Visit Diagnoses Encounter for immunization Relevant Medications varicella-zoster gE (SHINGRIX-KIT) 0.5 mL Patient Instructions (the written plan) was given to the patient. 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 Follows with Podiatry: Yes Hole Digger: Dr. Arroyo History of foot ulceration: No History of amputation: No Thyroid: Lab Results Component Value Date TSH 1.54 02/25/2021 Negative Other: from colon cancer March 2017. Had COVID-19 vaccine in [place]. Plan: 1. Rx changes: Adjust medications as [...] Call if BG consistently <70 or >250. [phone] Patient has been checking blood glucoses 4 [...] A1c TSH T4, Free documented in this [id number] Miscellaneous Notes* Assessment & Plan Note - [...] therapy. No changes today. documented in this [id number] History of Present illness Narrative* Preston Healy MD - 02/27/2021 8:57 AM EDT [facility] [address] [facility] [address] [facility] [address] Subjective: Andrew Arnold is a 75 y.o. [...] Diabetes mellitus, type 2 (HCC) Diabetic retinopathy ([facility]) Laser treatment Fractures Hypertension Mitral valve [...] swelling, palpitations and syncope. documented in this [id number] Instructions* Patient Instructions* Dayna Johnson RN - 02/27/2021 8:25 AM EDT How to Contact your Care Team: Provider: Dr. Preston Healy MD Hourly Shift: Dayna Johnson RN REFILLS: When in need for refills please call your care team or the office at [phone]. Please include medication name, pharmacy name, and specify 30-day or 90-day supply. Please check with your pharmacy within 24 hours of request for your refill. You must follow up as directed to continue current refills. Thank you! documented in this [id number] Miscellaneous Notes* Telephone Encounter - Dayna Johnson RN - 01/26/2021 1:40 PM EDT Last OV 01/09/21. RX attempted but failed in transmission on 01/09/21 documented in this [id number] Miscellaneous Notes* Assessment & Plan Note - [...] issues continue low-dose aspirin documented in this [id number] Instructions* Patient Instructions* Sheryl Hooker RN - [...] bleeding problems. Do not take any vitamins, wfnd-jzt-vpblube drugs, or herbal products without talking to [...] irregular heartbeat. After you call 911, the framing mill operator may tell you to chew 1 [...] Log into your personal health record on https://Derivixt.Seedrs and enter U020 in the Education box to learn more about Atrial Fibrillation: Care Instructions. Current as of: March 10, 2020 Content Version: 12.8 Zhitu. Care instructions adapted under license by your healthcare professional. If you have questions about a medical condition or this instruction, always ask your healthcare professional. Zhitu disclaims any warranty or liability for your [...] Carbamazepine, itraconazole, ketoconazole, phenytoin, rifampin, ritonavir, or [place]'s wort. If you are breast-feeding. Do not [...] and when it happened. documented in this [id number] History of Present illness Narrative* Preston Healy MD - 01/09/2021 9:06 AM EDT [facility] [address] [facility] [address] [facility] [address] Subjective: Andrew Arnold is a 75 y.o. [...] orthopnea, palpitations and syncope. 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 Follows with Podiatry: Yes Hole Digger: Dr. Arroyo History of foot ulceration: No [...] Call if BG consistently <70 or >250. [phone] Mr. Arnold would benefit from [employer] continuous glucose monitoring system. Patient has had [...] Free TSH Electronically Signed by: Radha Hughes, MOLD COOLER documented in this [id number] Miscellaneous Notes* Assessment & Plan Note - [...] to 20 mins daily documented in this [id number] Instructions* Patient Instructions* Vivien Foreman MD - [...] look into their status. Customer Service/Billing Questions: [phone] [facility] Assistance: [phone] or [phone] Financial Assistance: [phone] or [phone] As of July 16, 2019 my schedule will be changing: Tuesday 7 am to 5 pm Tuesday 7 am to 5 pm Tuesday closed 7 am to 5 pm Tuesday 7 am to 1 pm documented in this [id number] History of Present illness Narrative* Vivien Foreman [...] conjunction with the immunization order to satisfy [place] Board [place] Pharm[place] Positive ID requirements for [...] physical . VIVIEN FOREMAN MD [facility] [address] [facility] [address] [facility] [id number] Dept: [phone] Over the last 2 weeks, how often [...] along with other people? documented in this [id number] Telephone encounter Note* Telephone Encounter - Jaclyn Farah CMA - 01/02/2021 10:47 AM EDT Refill at 01/09 appt [id number] Miscellaneous Notes* Telephone Encounter - Jaclyn Farah CMA - 01/02/2021 10:47 AM EDT Refill at 7 appt documented in this [id number] Miscellaneous Notes* Assessment & Plan Note - [...] right side. Follow up with neurosurgery in [facility] showing improving and self limited subdural collection. [...] your diet goal<2 g documented in this [id number] History of Present illness Narrative* Vivien Foreman [...] in 2008 by in head and neck [facility]. Follow up for the past 10 [...] right side. Follow up with neurosurgery in [facility] showing improving and self limited subdural collection. [...] right side. Follow up with neurosurgery in [facility] showing improving and self limited subdural collection. [...] issues . VIVIEN FOREMAN MD [facility] [address] [facility] [address] [facility] [address] Dept: [phone] Over the last 2 weeks, how often [...] other people? Somewhat difficult [facility] Diagnosis Type 2 diabetes mellitus with [...] by other means Coronary artery disease involving [place] heart without angina pectoris, unspecified vessel or [...] (HCC) Atrial fibrillation [facility] Diagnosis Type 2 diabetes mellitus with retinopathy of both eyes, with long-term current use of insulin, macular edema presence unspecified, unspecified retinopathy severity (HCC)- Primary Essential hypertension Unspecified essential hypertension [facility] Diagnosis Anxiety and depression- Primary Balance disorder Encounter for immunization [facility] Diagnosis Onychomycosis- Primary Dermatophytosis of nail Peripheral vascular disease, unspecified (HCC) Peripheral vascular disease, unspecified [facility] Diagnosis At low risk for fall- Primary Ventricular fibrillation (HCC) Ventricular fibrillation Primary hypertension Unspecified essential hypertension 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, single episode, mild Anxiety and depression Encounter for immunization [facility] Diagnosis Type 2 diabetes mellitus with retinopathy of both eyes, with long-term current use of insulin, macular edema presence unspecified, unspecified retinopathy severity (HCC)- Primary Primary hypertension Unspecified essential hypertension Hypercholesterolemia Pure hypercholesterolemia [facility] Diagnosis Persistent atrial fibrillation (HCC)- Primary Atrial fibrillation Coronary artery disease involving [place] heart without angina pectoris, unspecified vessel or lesion type [facility] Diagnosis Type 2 diabetes mellitus with retinopathy of both eyes, with long-term current use of insulin, macular edema presence unspecified, unspecified retinopathy severity (HCC)- Primary Primary hypertension Unspecified essential hypertension [facility]* Diagnosis Pre-operative cardiovascular examination- Primary Hx of aortic valve replacement [facility] Diagnosis Abnormal stress test- Primary Other nonspecific abnormal cardiovascular system function study Coronary artery disease, unspecified vessel or lesion type, unspecified whether angina present, unspecified whether [place] or transplanted heart Abnormal stress test Other nonspecific abnormal cardiovascular system function study [facility] Diagnosis Abnormal stress test Other nonspecific abnormal cardiovascular system function study CAD (coronary artery disease) Coronary atherosclerosis of unspecified type of vessel, [place] or graft Onychomycosis- Primary Dermatophytosis of nail Peripheral vascular disease, unspecified (HCC) Peripheral vascular disease, unspecified [facility] Diagnosis PAD (peripheral artery disease) (HCC)- Primary Unspecified peripheral vascular disease Claudication (HCC) Unspecified peripheral vascular disease [facility]* Diagnosis PAD (peripheral artery disease) ([facility])- Primary Unspecified peripheral vascular disease [facility] Diagnosis Type 2 diabetes mellitus with retinopathy of both eyes, with long-term current use of insulin, macular edema presence unspecified, unspecified retinopathy severity (HCC)- Primary Primary hypertension Unspecified essential hypertension Hypercholesterolemia Pure hypercholesterolemia [facility]* Diagnosis Coronary artery disease involving [place] heart without angina pectoris, unspecified vessel or lesion type- Primary 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, with long-term current use of insulin, macular edema presence unspecified, unspecified retinopathy severity ([facility]) Intermittent claudication (HCC) Unspecified peripheral vascular disease [facility] Diagnosis Atherosclerosis of [place] arteries of extremities with intermittent claudication, bilateral legs ([facility])- Primary PAD (peripheral artery disease) ([facility]) Unspecified peripheral vascular disease Persistent atrial fibrillation (HCC) Atrial fibrillation Morbid obesity (HCC) Morbid obesity Type 2 diabetes mellitus with other circulatory complication, with long-term current use of insulin ([facility]) [facility] Diagnosis Essential hypertension Unspecified essential hypertension [facility]* Diagnosis Diabetic polyneuropathy 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)- Primary Onychomycosis Dermatophytosis of nail Peripheral vascular disease, unspecified (HCC) Peripheral vascular disease, unspecified [facility]* Diagnosis Persistent atrial fibrillation (HCC) Atrial fibrillation S/P CABG (coronary artery bypass graft) Postsurgical aortocoronary bypass status S/P aortic valve replacement Heart valve replaced by other means [facility]* Diagnosis At low risk for fall- Primary 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, single episode, mild Persistent atrial fibrillation (HCC) Atrial fibrillation Medicare annual wellness visit, subsequent Need for COVID-19 vaccine Advanced directives, counseling/discussion Other specified counseling PAD (peripheral artery disease) (HCC) Unspecified peripheral vascular disease [facility] Diagnosis Onychomycosis- Primary Dermatophytosis of nail Peripheral vascular disease, unspecified (HCC) Peripheral vascular disease, unspecified Diabetic polyneuropathy 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) [facility]* Diagnosis Type 2 diabetes mellitus [...] (HCC) Unspecified peripheral vascular disease Atherosclerosis of [place] arteries of extremities with intermittent claudication, bilateral legs ([facility]) [facility] Diagnosis Essential hypertension Unspecified essential hypertension [facility]* Diagnosis PAD (peripheral artery disease) (HCC) Unspecified peripheral vascular disease Atherosclerosis of [place] arteries of extremities with intermittent claudication, bilateral legs (HCC) [facility]* Diagnosis Atherosclerosis of [place] arteries of extremities with intermittent claudication, bilateral legs (HCC)- Primary PAD (peripheral artery disease) ([facility]) Unspecified peripheral vascular disease Type 2 diabetes mellitus with other circulatory complication, with long-term current use of insulin (HCC) Obesity (BMI 30-39.9) FPC current use of anticoagulant [facility] Diagnosis Essential hypertension Unspecified essential hypertension Hyperlipidemia, unspecified hyperlipidemia type [facility]* Diagnosis Onychomycosis- Primary Dermatophytosis of nail Peripheral vascular disease, unspecified (HCC) Peripheral vascular disease, unspecified [facility]* Diagnosis Diarrhea, unspecified type- Primary Essential hypertension Unspecified essential hypertension Hyperlipidemia, unspecified hyperlipidemia type Persistent atrial fibrillation (HCC) Atrial fibrillation Atherosclerosis of [place] arteries of extremities with intermittent claudication, bilateral legs (HCC) [facility]* Diagnosis PAD (peripheral artery disease) (HCC) Unspecified peripheral vascular disease Atherosclerosis of [place] arteries of extremities with intermittent claudication, bilateral legs (HCC) [facility]* Diagnosis Persistent atrial fibrillation (HCC)- [...] single episode, mild 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 Diagnosis Atherosclerosis of [place] arteries of extremities with intermittent claudication, bilateral legs (HCC)- Primary PAD (peripheral artery disease) (HCC) Unspecified peripheral vascular disease Poorly controlled diabetes mellitus (HCC) Type II or unspecified type diabetes mellitus without mention of complication, not stated as uncontrolled Type 2 diabetes mellitus with other circulatory complication, with long-term current use of insulin (HCC) Persistent atrial fibrillation (HCC) Atrial fibrillation FPC current use of anticoagulant Obesity (BMI 30-39.9) Aneurysm of ascending aorta without rupture (HCC) [facility] Diagnosis Essential hypertension Unspecified essential hypertension [facility]* Diagnosis Type 2 diabetes mellitus with retinopathy of both eyes, with long-term current use of insulin, macular edema presence unspecified, unspecified retinopathy severity (HCC)- Primary [facility]* Diagnosis Atherosclerosis of [place] arteries of extremities with intermittent claudication, bilateral legs (HCC)- Primary PAD (peripheral artery disease) (HCC) Unspecified peripheral vascular disease Abrasion, right foot, subsequent encounter Poorly controlled diabetes mellitus (HCC) Type II or unspecified type diabetes mellitus without mention of complication, not stated as uncontrolled Persistent atrial fibrillation (HCC) Atrial fibrillation FPC current use of anticoagulant Obesity (BMI 30-39.9) [...] vascular disease, unspecified [facility] Diagnosis Onychomycosis- Primary Dermatophytosis of nail Peripheral vascular disease, unspecified (HCC) Peripheral vascular disease, unspecified [facility]* Diagnosis Type 2 diabetes mellitus with [...] loss of consciousness, sequela (HCC) Atherosclerosis of [place] arteries of extremities with intermittent claudication, bilateral legs (HCC) Type 2 diabetes mellitus with retinopathy of both eyes, with long-term current use of insulin, macular edema presence unspecified, unspecified retinopathy severity (HCC) PAD (peripheral artery disease) (HCC) Unspecified peripheral vascular disease Medicare annual wellness visit, subsequent Sensorineural hearing loss (SNHL) of both ears At high risk for falls [facility]* Diagnosis Type 2 diabetes mellitus with retinopathy of both eyes, with long-term current use of insulin, macular edema presence unspecified, unspecified retinopathy severity (HCC)- Primary [facility]* Diagnosis At high risk for falls- Primary [facility]* Diagnosis At high risk for falls- Primary [facility] Diagnosis At high risk for falls [facility] Diagnosis At high risk for falls- Primary [facility]* Diagnosis At high risk for falls- Primary [facility] Diagnosis At high risk for falls- Primary [facility]* Diagnosis Balance disorder- Primary [facility]* Diagnosis At high risk for falls- Primary [facility]* Diagnosis Atherosclerosis of [place] arteries of extremities with intermittent claudication, bilateral legs (HCC)- Primary PAD (peripheral artery disease) (HCC) Unspecified peripheral vascular disease Persistent atrial fibrillation (HCC) Atrial fibrillation [facility]PC current use of anticoagulant Obesity (BMI 30-39.9) [facility]* Diagnosis Essential hypertension Unspecified essential hypertension [facility]* Diagnosis Onychomycosis- Primary Dermatophytosis of nail Peripheral vascular disease, unspecified (HCC) Peripheral vascular disease, unspecified [facility]* Diagnosis Essential hypertension Unspecified essential hypertension [facility]* Diagnosis Hyperlipidemia, unspecified hyperlipidemia type [facility] Diagnosis Coronary 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 without angina pectoris- Primary Essential hypertension [...] artery disease involving coronary bypass graft of [place] heart without angina pectoris- Primary Essential hypertension, [...] aortocoronary bypass status Coronary artery disease involving [place] heart without angina pectoris, unspecified vessel or [...] by other means Coronary artery disease involving [place] heart without angina pectoris, unspecified vessel or [...] for COVID-19 vaccine Coronary artery disease involving [place] heart without angina pectoris, unspecified vessel or [...] (HCC) Unspecified peripheral vascular disease Atherosclerosis of [place] arteries of extremities with intermittent claudication, bilateral legs (HCC) Diarrhea, unspecified type- Primary Essential hypertension Unspecified essential hypertension Hyperlipidemia, unspecified hyperlipidemia type Persistent atrial fibrillation (HCC) Atrial fibrillation Atherosclerosis of [place] arteries of extremities with intermittent claudication, bilateral [...] loss of consciousness, sequela (HCC) Atherosclerosis of [place] arteries of extremities with intermittent claudication, bilateral [...] macular edema presence unspecified, unspecified retinopathy severity ([facility]) documented in this encounter [facility]* Diagnosis Coronary 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 without angina pectoris- Primary Essential hypertension [...] artery disease involving coronary bypass graft of [place] heart without angina pectoris- Primary Essential hypertension, [...] aortocoronary bypass status Coronary artery disease involving [place] heart without angina pectoris, unspecified vessel or [...] by other means Coronary artery disease involving [place] heart without angina pectoris, unspecified vessel or [...] for COVID-19 vaccine Coronary artery disease involving [place] heart without angina pectoris, unspecified vessel or [...] (HCC) Unspecified peripheral vascular disease Atherosclerosis of [place] arteries of extremities with intermittent claudication, bilateral legs (HCC) Diarrhea, unspecified type- Primary Essential hypertension Unspecified essential hypertension Hyperlipidemia, unspecified hyperlipidemia type Persistent atrial fibrillation (HCC) Atrial fibrillation Atherosclerosis of [place] arteries of extremities with intermittent claudication, bilateral [...] loss of consciousness, sequela (HCC) Atherosclerosis of [place] arteries of extremities with intermittent claudication, bilateral [...] vascular disease, unspecified [facility] Diagnosis Coronary 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 without angina pectoris- Primary Essential hypertension [...] artery disease involving coronary bypass graft of [place] heart without angina pectoris- Primary Essential hypertension, [...] aortocoronary bypass status Coronary artery disease involving [place] heart without angina pectoris, unspecified vessel or [...] by other means Coronary artery disease involving [place] heart without angina pectoris, unspecified vessel or [...] for COVID-19 vaccine Coronary artery disease involving [place] heart without angina pectoris, unspecified vessel or [...] (HCC) Unspecified peripheral vascular disease Atherosclerosis of [place] arteries of extremities with intermittent claudication, bilateral legs (HCC) Diarrhea, unspecified type- Primary Essential hypertension Unspecified essential hypertension Hyperlipidemia, unspecified hyperlipidemia type Persistent atrial fibrillation (HCC) Atrial fibrillation Atherosclerosis of [place] arteries of extremities with intermittent claudication, bilateral [...] loss of consciousness, sequela (HCC) Atherosclerosis of [place] arteries of extremities with intermittent claudication, bilateral [...] Unspecified essential hypertension [facility] Diagnosis Coronary 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 without angina pectoris- Primary Essential hypertension [...] artery disease involving coronary bypass graft of [place] heart without angina pectoris- Primary Essential hypertension, [...] aortocoronary bypass status Coronary artery disease involving [place] heart without angina pectoris, unspecified vessel or [...] by other means Coronary artery disease involving [place] heart without angina pectoris, unspecified vessel or [...] for COVID-19 vaccine Coronary artery disease involving [place] heart without angina pectoris, unspecified vessel or [...] Cough, unspecified type PAD (peripheral artery disease) ([facility]) Unspecified peripheral vascular disease Atherosclerosis of [place] arteries of extremities with intermittent claudication, bilateral legs (HCC) Diarrhea, unspecified type- Primary Essential hypertension Unspecified essential hypertension Hyperlipidemia, unspecified hyperlipidemia type Persistent atrial fibrillation (HCC) Atrial fibrillation Atherosclerosis of [place] arteries of extremities with intermittent claudication, bilateral [...] loss of consciousness, sequela (HCC) Atherosclerosis of [place] arteries of extremities with intermittent claudication, bilateral [...] (HCC) Unspecified peripheral vascular disease Atherosclerosis of [place] arteries of extremities with intermittent claudication, bilateral legs (HCC) documented in this encounter [facility]* Diagnosis Coronary 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 without angina pectoris- Primary Essential hypertension [...] artery disease involving coronary bypass graft of [place] heart without angina pectoris- Primary Essential hypertension, [...] aortocoronary bypass status Coronary artery disease involving [place] heart without angina pectoris, unspecified vessel or [...] by other means Coronary artery disease involving [place] heart without angina pectoris, unspecified vessel or [...] for COVID-19 vaccine Coronary artery disease involving [place] heart without angina pectoris, unspecified vessel or [...] (HCC) Unspecified peripheral vascular disease Atherosclerosis of [place] arteries of extremities with intermittent claudication, bilateral legs (HCC) Diarrhea, unspecified type- Primary Essential hypertension Unspecified essential hypertension Hyperlipidemia, unspecified hyperlipidemia type Persistent atrial fibrillation (HCC) Atrial fibrillation Atherosclerosis of [place] arteries of extremities with intermittent claudication, bilateral [...] loss of consciousness, sequela (HCC) Atherosclerosis of [place] arteries of extremities with intermittent claudication, bilateral [...] unspecified hyperlipidemia type documented in this encounter [facility] note* Diagnosis Coronary 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 without angina pectoris- Primary Essential hypertension [...] artery disease involving coronary bypass graft of [place] heart without angina pectoris- Primary Essential hypertension, hypertension with unspecified goal Persistent atrial fibrillation ([facility]) Atrial fibrillation S/P CABG (coronary artery [...] aortocoronary bypass status Coronary artery disease involving [place] heart without angina pectoris, unspecified vessel or [...] by other means Coronary artery disease involving [place] heart without angina pectoris, unspecified vessel or [...] for COVID-19 vaccine Coronary artery disease involving [place] heart without angina pectoris, unspecified vessel or [...] (HCC) Unspecified peripheral vascular disease Atherosclerosis of [place] arteries of extremities with intermittent claudication, bilateral legs (HCC) Diarrhea, unspecified type- Primary Essential hypertension Unspecified essential hypertension Hyperlipidemia, unspecified hyperlipidemia type Persistent atrial fibrillation (HCC) Atrial fibrillation Atherosclerosis of [place] arteries of extremities with intermittent claudication, bilateral [...] loss of consciousness, sequela (HCC) Atherosclerosis of [place] arteries of extremities with intermittent claudication, bilateral [...] Unspecified essential [facility] Diagnosis Coronary 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 without angina pectoris- Primary Essential hypertension [...] artery disease involving coronary bypass graft of [place] heart without angina pectoris- Primary Essential hypertension, hypertension with unspecified goal Persistent atrial fibrillation ([facility]) Atrial fibrillation S/P CABG (coronary artery [...] aortocoronary bypass status Coronary artery disease involving [place] heart without angina pectoris, unspecified vessel or [...] by other means Coronary artery disease involving [place] heart without angina pectoris, unspecified vessel or [...] for COVID-19 vaccine Coronary artery disease involving [place] heart without angina pectoris, unspecified vessel or [...] (HCC) Unspecified peripheral vascular disease Atherosclerosis of [place] arteries of extremities with intermittent claudication, bilateral legs (HCC) Diarrhea, unspecified type- Primary Essential hypertension Unspecified essential hypertension Hyperlipidemia, unspecified hyperlipidemia type Persistent atrial fibrillation (HCC) Atrial fibrillation Atherosclerosis of [place] arteries of extremities with intermittent claudication, bilateral [...] complication, with long-term current use of insulin ([facility])- Primary 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 heart disease with heart failure (HCC) Unspecified hypertensive heart disease with heart failure 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 ([facility]) Mild major depression Major depressive disorder, single episode, mild Traumatic subdural hemorrhage with unknown loss of consciousness status, subsequent encounter Morbid obesity (HCC) Morbid obesity 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, sequela ([facility]) Atherosclerosis of [place] arteries of extremities with intermittent claudication, bilateral legs ([facility]) Type 2 diabetes mellitus with retinopathy of both eyes, with long-term current use of insulin, macular edema presence unspecified, unspecified retinopathy severity ([facility]) PAD (peripheral artery disease) ([facility]) Unspecified peripheral vascular disease Medicare annual wellness visit, subsequent Sensorineural hearing loss (SNHL) of both ears At high risk for falls PAD (peripheral artery disease) ([facility])- Primary Unspecified peripheral vascular disease Essential hypertension Unspecified essential hypertension Primary hypertension Unspecified essential hypertension Persistent atrial fibrillation ([facility]) Atrial fibrillation S/P CABG (coronary artery bypass graft) Postsurgical aortocoronary bypass status S/P AVR [facility] Diagnosis Coronary 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 without angina pectoris- Primary Essential hypertension Unspecified essential hypertension S/P AVR (aortic valve replacement) Heart valve replaced by other means HLD (hyperlipidemia) Other and unspecified hyperlipidemia Persistent atrial fibrillation (HCC) Atrial fibrillation S/P CABG (coronary artery bypass graft) Postsurgical aortocoronary bypass status S/P aortic valve replacement Heart valve replaced by other means Postoperative atrial fibrillation ([facility]) Coronary artery disease involving coronary bypass graft of [place] heart without angina pectoris- Primary Essential hypertension, hypertension with unspecified goal Persistent atrial fibrillation ([facility]) Atrial fibrillation S/P CABG (coronary artery [...] aortocoronary bypass status Coronary artery disease involving [place] heart without angina pectoris, unspecified vessel or [...] by other means Coronary artery disease involving [place] heart without angina pectoris, unspecified vessel or [...] for COVID-19 vaccine Coronary artery disease involving [place] heart without angina pectoris, unspecified vessel or [...] (HCC) Unspecified peripheral vascular disease Atherosclerosis of [place] arteries of extremities with intermittent claudication, bilateral legs (HCC) Diarrhea, unspecified type- Primary Essential hypertension Unspecified essential hypertension Hyperlipidemia, unspecified hyperlipidemia type Persistent atrial fibrillation (HCC) Atrial fibrillation Atherosclerosis of [place] arteries of extremities with intermittent claudication, bilateral legs (HCC) Persistent atrial fibrillation (HCC)- Primary Atrial fibrillation S/P CABG (coronary artery bypass graft) Postsurgical aortocoronary bypass status S/P aortic valve replacement Heart valve replaced by other means Persistent atrial fibrillation (HCC)- Primary Atrial fibrillation Essential hypertension Unspecified essential hypertension PAD (peripheral artery disease) ([facility]) Unspecified peripheral vascular disease S/P CABG (coronary artery bypass graft) Postsurgical aortocoronary bypass status S/P aortic valve replacement Heart valve replaced by other means Type 2 diabetes mellitus with other circulatory complication, with long-term current use of insulin ([facility])- Primary Malignant neoplasm of buccal sulcus [...] loss of consciousness, sequela (HCC) Atherosclerosis of [place] arteries of extremities with intermittent claudication, bilateral legs (HCC) Type 2 diabetes mellitus with retinopathy of both eyes, with long-term current use of insulin, macular edema presence unspecified, unspecified retinopathy severity ([facility]) PAD (peripheral artery disease) ([facility]) Unspecified peripheral vascular disease Medicare annual wellness visit, subsequent Sensorineural hearing loss (SNHL) of both ears At high risk for falls PAD (peripheral artery disease) ([facility])- Primary Unspecified peripheral vascular disease Essential hypertension Unspecified essential hypertension Primary hypertension Unspecified essential hypertension Persistent atrial fibrillation (HCC) Atrial fibrillation S/P CABG (coronary artery bypass graft) Postsurgical aortocoronary bypass status S/P AVR Ganglion cyst- Primary Unspecified ganglion [facility] Diagnosis Coronary 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 without angina pectoris- Primary Essential hypertension [...] artery disease involving coronary bypass graft of [place] heart without angina pectoris- Primary Essential hypertension, [...] aortocoronary bypass status Coronary artery disease involving [place] heart without angina pectoris, unspecified vessel or [...] by other means Coronary artery disease involving [place] heart without angina pectoris, unspecified vessel or [...] for COVID-19 vaccine Coronary artery disease involving [place] heart without angina pectoris, unspecified vessel or [...] (HCC) Unspecified peripheral vascular disease Atherosclerosis of [place] arteries of extremities with intermittent claudication, bilateral legs (HCC) Diarrhea, unspecified type- Primary Essential hypertension Unspecified essential hypertension Hyperlipidemia, unspecified hyperlipidemia type Persistent atrial fibrillation (HCC) Atrial fibrillation Atherosclerosis of [place] arteries of extremities with intermittent claudication, bilateral [...] complication, with long-term current use of insulin ([facility])- Primary Malignant neoplasm of buccal sulcus ([facility]) Hypertensive heart disease with heart failure ([facility]) Unspecified hypertensive heart disease with heart failure 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 ([facility]) Mild major depression Major depressive disorder, single episode, mild Traumatic subdural hemorrhage with unknown loss of consciousness status, subsequent encounter Morbid obesity (HCC) Morbid obesity 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, sequela (HCC) Atherosclerosis of [place] arteries of extremities with intermittent claudication, bilateral legs (HCC) Type 2 diabetes mellitus with retinopathy of both eyes, with long-term current use of insulin, macular edema presence unspecified, unspecified retinopathy severity ([facility]) PAD (peripheral artery disease) ([facility]) Unspecified peripheral vascular disease Medicare annual wellness visit, subsequent Sensorineural hearing loss (SNHL) of both ears At high risk for falls PAD (peripheral artery disease) ([facility])- Primary Unspecified peripheral vascular disease Essential hypertension Unspecified essential hypertension Primary hypertension Unspecified essential hypertension Persistent atrial fibrillation (HCC) Atrial fibrillation S/P CABG (coronary artery bypass graft) Postsurgical aortocoronary bypass status S/P AVR Type 2 diabetes mellitus with retinopathy of both eyes, with long-term current use of insulin, macular edema presence unspecified, unspecified retinopathy severity ([facility])- Primary Hypercholesterolemia Pure hypercholesterolemia [facility] Diagnosis Coronary 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 without angina pectoris- Primary Essential hypertension [...] artery disease involving coronary bypass graft of [place] heart without angina pectoris- Primary Essential hypertension, [...] aortocoronary bypass status Coronary artery disease involving [place] heart without angina pectoris, unspecified vessel or [...] by other means Coronary artery disease involving [place] heart without angina pectoris, unspecified vessel or [...] for COVID-19 vaccine Coronary artery disease involving [place] heart without angina pectoris, unspecified vessel or [...] (HCC) Unspecified peripheral vascular disease Atherosclerosis of [place] arteries of extremities with intermittent claudication, bilateral legs (HCC) Diarrhea, unspecified type- Primary Essential hypertension Unspecified essential hypertension Hyperlipidemia, unspecified hyperlipidemia type Persistent atrial fibrillation (HCC) Atrial fibrillation Atherosclerosis of [place] arteries of extremities with intermittent claudication, bilateral legs (HCC) Persistent atrial fibrillation (HCC)- Primary Atrial fibrillation S/P CABG (coronary artery bypass graft) Postsurgical aortocoronary bypass status S/P aortic valve replacement Heart valve replaced by other means Persistent atrial fibrillation (HCC)- Primary Atrial fibrillation Essential hypertension Unspecified essential hypertension PAD (peripheral artery disease) ([facility]) Unspecified peripheral vascular disease S/P CABG [...] loss of consciousness, sequela (HCC) Atherosclerosis of [place] arteries of extremities with intermittent claudication, bilateral legs (HCC) Type 2 diabetes mellitus with retinopathy of both eyes, with long-term current use of insulin, macular edema presence unspecified, unspecified retinopathy severity (HCC) PAD (peripheral artery disease) ([facility]) Unspecified peripheral vascular disease Medicare annual wellness visit, subsequent Sensorineural hearing loss (SNHL) of both ears At high risk for falls PAD (peripheral artery disease) ([facility])- Primary Unspecified peripheral vascular disease Essential [...] Unspecified essential hypertension documented in this encounter [facility] note* Diagnosis Coronary 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 without angina pectoris- Primary Essential hypertension [...] artery disease involving coronary bypass graft of [place] heart without angina pectoris- Primary Essential hypertension, [...] aortocoronary bypass status Coronary artery disease involving [place] heart without angina pectoris, unspecified vessel or [...] by other means Coronary artery disease involving [place] heart without angina pectoris, unspecified vessel or [...] for COVID-19 vaccine Coronary artery disease involving [place] heart without angina pectoris, unspecified vessel or [...] (HCC) Unspecified peripheral vascular disease Atherosclerosis of [place] arteries of extremities with intermittent claudication, bilateral legs (HCC) Diarrhea, unspecified type- Primary Essential hypertension Unspecified essential hypertension Hyperlipidemia, unspecified hyperlipidemia type Persistent atrial fibrillation (HCC) Atrial fibrillation Atherosclerosis of [place] arteries of extremities with intermittent claudication, bilateral [...] loss of consciousness, sequela (HCC) Atherosclerosis of [place] arteries of extremities with intermittent claudication, bilateral [...] Unspecified essential hypertension [facility] Diagnosis Coronary 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 without angina pectoris- Primary Essential hypertension [...] artery disease involving coronary bypass graft of [place] heart without angina pectoris- Primary Essential hypertension, [...] aortocoronary bypass status Coronary artery disease involving [place] heart without angina pectoris, unspecified vessel or [...] by other means Coronary artery disease involving [place] heart without angina pectoris, unspecified vessel or [...] for COVID-19 vaccine Coronary artery disease involving [place] heart without angina pectoris, unspecified vessel or [...] (HCC) Unspecified peripheral vascular disease Atherosclerosis of [place] arteries of extremities with intermittent claudication, bilateral legs (HCC) Diarrhea, unspecified type- Primary Essential hypertension Unspecified essential hypertension Hyperlipidemia, unspecified hyperlipidemia type Persistent atrial fibrillation (HCC) Atrial fibrillation Atherosclerosis of [place] arteries of extremities with intermittent claudication, bilateral [...] complication, with long-term current use of insulin ([facility])- Primary 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 heart disease with heart failure (HCC) Unspecified hypertensive heart disease with heart failure 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 ([facility]) Mild major depression Major depressive disorder, single episode, mild Traumatic subdural hemorrhage with unknown loss of consciousness status, subsequent encounter Morbid obesity (HCC) Morbid obesity 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, sequela (HCC) Atherosclerosis of [place] arteries of extremities with intermittent claudication, bilateral legs ([facility]) Type 2 diabetes mellitus with retinopathy of both eyes, with long-term current use of insulin, macular edema presence unspecified, unspecified retinopathy severity ([facility]) PAD (peripheral artery disease) ([facility]) Unspecified peripheral vascular disease Medicare annual wellness visit, subsequent Sensorineural hearing loss (SNHL) of both ears At high risk for falls PAD (peripheral artery disease) ([facility])- Primary Unspecified peripheral vascular disease Essential hypertension Unspecified essential hypertension Primary hypertension Unspecified essential hypertension Persistent atrial fibrillation (HCC) Atrial fibrillation S/P CABG (coronary artery bypass graft) Postsurgical aortocoronary bypass status S/P AVR Ganglion cyst Unspecified ganglion [facility] Diagnosis Coronary 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 without angina pectoris- Primary Essential hypertension [...] artery disease involving coronary bypass graft of [place] heart without angina pectoris- Primary Essential hypertension, [...] aortocoronary bypass status Coronary artery disease involving [place] heart without angina pectoris, unspecified vessel or [...] by other means Coronary artery disease involving [place] heart without angina pectoris, unspecified vessel or [...] for COVID-19 vaccine Coronary artery disease involving [place] heart without angina pectoris, unspecified vessel or [...] (HCC) Unspecified peripheral vascular disease Atherosclerosis of [place] arteries of extremities with intermittent claudication, bilateral legs (HCC) Diarrhea, unspecified type- Primary Essential hypertension Unspecified essential hypertension Hyperlipidemia, unspecified hyperlipidemia type Persistent atrial fibrillation (HCC) Atrial fibrillation Atherosclerosis of [place] arteries of extremities with intermittent claudication, bilateral [...] loss of consciousness, sequela (HCC) Atherosclerosis of [place] arteries of extremities with intermittent claudication, bilateral legs (HCC) Type 2 diabetes mellitus with retinopathy of both eyes, with long-term current use of insulin, macular edema presence unspecified, unspecified retinopathy severity (HCC) PAD (peripheral artery disease) ([facility]) Unspecified peripheral vascular disease Medicare annual wellness visit, subsequent Sensorineural hearing loss (SNHL) of both ears At high risk for falls PAD (peripheral artery disease) ([facility])- Primary Unspecified peripheral vascular disease Essential hypertension Unspecified essential hypertension Primary hypertension Unspecified essential hypertension Persistent atrial fibrillation (HCC) Atrial fibrillation S/P CABG (coronary artery bypass graft) Postsurgical aortocoronary bypass status S/P AVR Onychomycosis- Primary Dermatophytosis of nail Peripheral vascular disease, unspecified [facility] Diagnosis Coronary 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 without angina pectoris- Primary Essential hypertension [...] artery disease involving coronary bypass graft of [place] heart without angina pectoris- Primary Essential hypertension, [...] aortocoronary bypass status Coronary artery disease involving [place] heart without angina pectoris, unspecified vessel or [...] by other means Coronary artery disease involving [place] heart without angina pectoris, unspecified vessel or [...] for COVID-19 vaccine Coronary artery disease involving [place] heart without angina pectoris, unspecified vessel or [...] (HCC) Unspecified peripheral vascular disease Atherosclerosis of [place] arteries of extremities with intermittent claudication, bilateral legs (HCC) Diarrhea, unspecified type- Primary Essential hypertension Unspecified essential hypertension Hyperlipidemia, unspecified hyperlipidemia type Persistent atrial fibrillation (HCC) Atrial fibrillation Atherosclerosis of [place] arteries of extremities with intermittent claudication, bilateral [...] loss of consciousness, sequela (HCC) Atherosclerosis of [place] arteries of extremities with intermittent claudication, bilateral [...] unspecified hyperlipidemia type [facility] Diagnosis Coronary 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 without angina pectoris- Primary Essential hypertension [...] artery disease involving coronary bypass graft of [place] heart without angina pectoris- Primary Essential hypertension, [...] aortocoronary bypass status Coronary artery disease involving [place] heart without angina pectoris, unspecified vessel or [...] by other means Coronary artery disease involving [place] heart without angina pectoris, unspecified vessel or [...] for COVID-19 vaccine Coronary artery disease involving [place] heart without angina pectoris, unspecified vessel or [...] Cough, unspecified type PAD (peripheral artery disease) ([facility]) Unspecified peripheral vascular disease Atherosclerosis of [place] arteries of extremities with intermittent claudication, bilateral legs ([facility]) Diarrhea, unspecified type- Primary Essential hypertension Unspecified essential hypertension Hyperlipidemia, unspecified hyperlipidemia type Persistent atrial fibrillation (HCC) Atrial fibrillation Atherosclerosis of [place] arteries of extremities with intermittent claudication, bilateral legs (HCC) Persistent atrial fibrillation ([facility])- Primary Atrial fibrillation S/P CABG (coronary artery bypass graft) Postsurgical aortocoronary bypass status S/P aortic valve replacement Heart valve replaced by other means Persistent atrial fibrillation ([facility])- Primary Atrial fibrillation Essential hypertension Unspecified essential hypertension PAD (peripheral artery disease) ([facility]) Unspecified peripheral vascular disease S/P CABG [...] loss of consciousness, sequela (HCC) Atherosclerosis of [place] arteries of extremities with intermittent claudication, bilateral legs (HCC) Type 2 diabetes mellitus with retinopathy of both eyes, with long-term current use of insulin, macular edema presence unspecified, unspecified retinopathy severity (HCC) PAD (peripheral artery disease) ([facility]) Unspecified peripheral vascular disease Medicare annual [...] in joint, forearm documented in this encounter [facility] note* Diagnosis Coronary 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 without angina pectoris- Primary Essential hypertension [...] artery disease involving coronary bypass graft of [place] heart without angina pectoris- Primary Essential hypertension, [...] aortocoronary bypass status Coronary artery disease involving [place] heart without angina pectoris, unspecified vessel or [...] by other means Coronary artery disease involving [place] heart without angina pectoris, unspecified vessel or [...] for COVID-19 vaccine Coronary artery disease involving [place] heart without angina pectoris, unspecified vessel or [...] (HCC) Unspecified peripheral vascular disease Atherosclerosis of [place] arteries of extremities with intermittent claudication, bilateral legs (HCC) Diarrhea, unspecified type- Primary Essential hypertension Unspecified essential hypertension Hyperlipidemia, unspecified hyperlipidemia type Persistent atrial fibrillation (HCC) Atrial fibrillation Atherosclerosis of [place] arteries of extremities with intermittent claudication, bilateral [...] loss of consciousness, sequela (HCC) Atherosclerosis of [place] arteries of extremities with intermittent claudication, bilateral [...] other intrathoracic organs [facility] Diagnosis Coronary 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 without angina pectoris- Primary Essential hypertension [...] artery disease involving coronary bypass graft of [place] heart without angina pectoris- Primary Essential hypertension, [...] aortocoronary bypass status Coronary artery disease involving [place] heart without angina pectoris, unspecified vessel or [...] by other means Coronary artery disease involving [place] heart without angina pectoris, unspecified vessel or [...] for COVID-19 vaccine Coronary artery disease involving [place] heart without angina pectoris, unspecified vessel or [...] (HCC) Unspecified peripheral vascular disease Atherosclerosis of [place] arteries of extremities with intermittent claudication, bilateral legs (HCC) Diarrhea, unspecified type- Primary Essential hypertension Unspecified essential hypertension Hyperlipidemia, unspecified hyperlipidemia type Persistent atrial fibrillation (HCC) Atrial fibrillation Atherosclerosis of [place] arteries of extremities with intermittent claudication, bilateral [...] 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 ([facility]) Mild major depression Major depressive disorder, single episode, mild Traumatic subdural hemorrhage with unknown loss of consciousness status, subsequent encounter Morbid obesity (HCC) Morbid obesity 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, sequela (HCC) Atherosclerosis of [place] arteries of extremities with intermittent claudication, bilateral legs ([facility]) Type 2 diabetes mellitus with retinopathy of both eyes, with long-term current use of insulin, macular edema presence unspecified, unspecified retinopathy severity ([facility]) PAD (peripheral artery disease) ([facility]) Unspecified peripheral vascular disease Medicare annual wellness visit, subsequent Sensorineural hearing loss (SNHL) of both ears At high risk for falls PAD (peripheral artery disease) ([facility])- Primary Unspecified peripheral vascular disease Essential hypertension Unspecified essential hypertension Primary hypertension Unspecified essential hypertension Persistent atrial fibrillation (HCC) Atrial fibrillation S/P CABG (coronary artery bypass graft) Postsurgical aortocoronary bypass status S/P AVR Shock ([facility])- Primary Unspecified shock Septic shock ([facility]) Shortness of breath Elevated troponin Other abnormal blood chemistry DKA (diabetic ketoacidosis) ([facility]) Type II or unspecified type diabetes mellitus with ketoacidosis, not stated as uncontrolled Anemia of chronic disease Anemia of other chronic disease Shock ([facility]) Unspecified shock documented in this encounter [facility] note* Diagnosis Coronary 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 without angina pectoris- Primary Essential hypertension Unspecified essential hypertension S/P AVR (aortic valve replacement) Heart valve replaced by other means HLD (hyperlipidemia) Other and unspecified hyperlipidemia Persistent atrial fibrillation (HCC) Atrial fibrillation S/P CABG (coronary artery bypass graft) Postsurgical aortocoronary bypass status S/P aortic valve replacement Heart valve replaced by other means Postoperative atrial fibrillation ([facility]) Coronary artery disease involving coronary bypass graft of [place] heart without angina pectoris- Primary Essential hypertension, hypertension with unspecified goal Persistent atrial fibrillation ([facility]) Atrial fibrillation S/P CABG (coronary artery [...] aortocoronary bypass status Coronary artery disease involving [place] heart without angina pectoris, unspecified vessel or [...] by other means Coronary artery disease involving [place] heart without angina pectoris, unspecified vessel or [...] for COVID-19 vaccine Coronary artery disease involving [place] heart without angina pectoris, unspecified vessel or [...] (HCC) Unspecified peripheral vascular disease Atherosclerosis of [place] arteries of extremities with intermittent claudication, bilateral legs (HCC) Diarrhea, unspecified type- Primary Essential hypertension Unspecified essential hypertension Hyperlipidemia, unspecified hyperlipidemia type Persistent atrial fibrillation (HCC) Atrial fibrillation Atherosclerosis of [place] arteries of extremities with intermittent claudication, bilateral [...] loss of consciousness, sequela (HCC) Atherosclerosis of [place] arteries of extremities with intermittent claudication, bilateral [...] present (HCC)- Primary [facility] ([facility]arrative)No reason for referral information availableWTriHealth [facility] Work Phone: Assessments Diagnosis Hand fracture, [...] severity (HCC)- Primary Coronary artery disease involving [place] heart without angina pectoris, unspecified vessel or lesion type Essential hypertension Unspecified essential hypertension Hypercholesterolemia Pure hypercholesterolemia Diagnosis Chest pain, unspecified type Diagnosis Prominent abdominal aortic pulse Diagnosis Chest pain, unspecified type S/P aortic valve replacement Heart valve replaced by other means Diagnosis Coronary artery disease involving [place] heart without angina pectoris, unspecified vessel or [...] Pure hypercholesterolemia Diagnosis Coronary artery disease involving [place] heart without angina pectoris, unspecified vessel or [...] Documents on File Type Date Recorded Patient Director Corporate Compliance Expl anation Advance Directives and Livin g Will 12/07/2018 9:36 AM Documents on File Type Date Recorded Patient Director Corporate Compliance Expl anation Advance Directives and Livin g Will 12/07/2018 9:36 AM Documents on File Type Date Recorded Patient Director Corporate Compliance Expl anation Advance Directives and Livin g Will 12/07/2018 9:36 AM Advance Directives and Livin g Will 12/08/2018 12:00 AM Documents on File Type Date Recorded Patient Director Corporate Compliance Expl anation Advance Directives and Livin g Will 12/15/2018 9:36 AM Advance Directives and Livin g Will 12/08/2018 12:00 AM Documents on File Type Date Recorded Patient Director Corporate Compliance Expl anation Advance Directives and Livin g Will 12/21/2018 9:36 AM Advance Directives and Livin g Will 12/26/2018 10:49 AM Documents on File Type Date Recorded Patient Director Corporate Compliance Expl anation Advance Directives and Livin g Will 12/21/2018 9:36 AM Advance Directives and Livin g Will 12/26/2018 10:49 AM Documents on File Type Date Recorded Patient Director Corporate Compliance Expl anation Advance Directives and Livin g Will 12/21/2018 9:36 AM Advance Directives and Livin g Will 12/08/2018 12:00 AM Documents on File Type Date Recorded Patient Director Corporate Compliance Expl anation Advance Directives and Living Will Documents on File Type Date Recorded Patient Director Corporate Compliance Expl anation Advance Directives and Livin g Will 12/26/2018 10:49 AM Advance Directives and Livin g Will 12/21/2018 9:36 AM Documents on File Type Date Recorded Patient Director Corporate Compliance Expl anation Advance Directives and Livin g Will 12/26/2018 10:49 AM Advance Directives and Livin g Will 12/21/2018 9:36 AM Documents on File Type Date Recorded Patient Director Corporate Compliance Expl anation Advance Directives and Living Will 01/13/2021 10:49 AM NO COPY IN SOARIAN Advance Directives and Living Will 12/21/2018 9:36 AM Documents on File Type Date Recorded Patient Director Corporate Compliance Expl anation Advance Directives and Living Will 01/13/2021 10:49 AM NO COPY IN SOARIAN Advance Directives and Living Will 12/21/2018 9:36 AM Documents on File Type Date Recorded Patient Director Corporate Compliance Expl anation Advance Directives and Living Will 02/02/2021 10:41 AM NO COPY IN SOARIAN Advance Directives and Living Will 12/21/2018 9:36 AM Documents on File Type Date Recorded Patient Director Corporate Compliance Expl anation Advance Directives and Living Will 02/02/2021 10:41 AM NO COPY IN SOARIAN Advance Directives and Living Will 12/21/2018 9:36 AM Documents on File Type Date Recorded Patient Director Corporate Compliance Expl anation Advance Directives and Living Will [...] you have a Healthcare Pow er of Soaking Room Operator? Yes February 11, 2025 4:52pm Name of Medical Power of Soaking Room Operator SW requesting from pharmacy services representative's office. Unsure who is the HCPOA. February [...] Call if BG consistently <70 or >250. [phone] Check blood sugar 4 times daily. 6. Bring blood sugar meter to follow up appointment. Orders Placed This Encounter Procedures Hemoglobin A1c Comprehensive Metabolic Panel TSH T4, Free Lipid Panel CBC and Differential External Lab Microalbumin/Creatinine in this encounter* Patient Instructions* Dayna Johnson RN - 12/01/2018 7:39 AM EDT How to Contact your Care Team: Provider: Dr. Preston Healy MD Hourly Shift: Dayna Johnson RN REFILLS: When in need for refills please call your care team or the office at [phone]. Please include medication name, pharmacy name, and [...] questions please contact your care team or [phone]. documented in this encounter History of Present Illness * Radha Hughes, MOLD COOLER - 06/29/2018 10:49 AM EST Formatting of [...] lantus at HS. He has been eating [employer] systems. Has lost approximately 43 lbs. Having increased frequency of hypoglycemia. Plan: Stop Humalog May need 3 units with larger (non [employer] meals). Low dose SSI. Continue Lantus 22 units at at bedtime. Check blood glucoses more frequently and report blood sugars to office for adjustment of insulin doses. Retinopathy: Positive [employer]; has had laser treatment for retinopathy. Exam [...] Call if BG consistently <70 or >250. [phone] Check blood sugar 4 times daily. 6. [...] Hemoglobin A1c 2. Coronary artery disease involving [place] heart without angina pectoris, unspecified vessel or lesion type CORONARY ARTERIOSCLEROSIS 3. Essential hypertension ESSENTIAL HYPERTENSION 4. Hypercholesterolemia HYPERCHOLESTEROLEMIA Type 2 diabetes, under poor control Andrew Arnold presents for follow-up of Type 2 diabetes Patient is currently managed with: QID insulin. He is currenlty taking sensitive SSI Humalog with meals and 22 lantus at HS. He has since stopped his [employer] diet, and states he has increase his caloric intake. Has lost approximately 43 lbs. patient spent the winter in [place] and states he was not as compliant with mealtime insulin orchecking his BG while away. Retinopathy: Positive [employer]ANT; has had laser treatment for retinopathy. Exam [...] per day. Patient is interested in a [employer] johnny CGM. I did inform him if [...] Call if BG consistently <70 or >250. [phone] Check blood sugar 4 times daily. 6. Bring blood sugar meter to follow up appointment. Orders Placed This Encounter Procedures Comprehensive Metabolic Panel Hemoglobin A1c Electronically signed by: Girish Gramajo PA-C, [facility] 10/30/18 1:43 PM documented in this encounter* Jenaro Oquendo MD - 12/15/2018 10:15 AM EDT Subjective: Patient ID: Andrew Arnold is a 73 y.o. male. HPI: Patient is a 73-year-old male with right hand and thumb pain he was diagnosed in [place] with de Quervain's tenosynovitis. He had a [...] Nuclear Report Patient: CLAYTON Mccollum Med Rec#: [id number] (Age): 1945(73y) Height: Study Date: 12/12/2018 Weight: [...] on: 01/03/2019 10:12 AM by: JENARO OQUENDO [[id number]] documented in this encounter* Preston Healy MD - 07/29/2019 1:49 PM EST [facility] [address] (11) [facility] [address] [facility] [id number] Subjective: Andrew Arnold is a 74 y.o. male seen in the office today for Chief Complaint Patient presents with Follow-up 6 mo ov w/ no complaints today Medication Refill pt would like RX to [facility] due to leaving tomorrow for [facility] Overview of Problems Addressed: Problem S/P Cabg [...] Dozier PT - 10/02/2019 1:45 PM EDT [facility] Evaluation Today's Date 10/02/2019 Patient [...] body heights and disc spaces. There is kdft-fn-wuvqzcup multilevel disc space narrowing, endplate degenerative change [...] Social History Occupation: Retired Home environment: house Islam, social, or cultural considerations to be made [...] OTHER Notes 14:07 - 14:38 Therapeutic Exercise (19536) Intervention SciFit Parameters SKC Stretch Intervention PPTs [...] with HEP in 2 weeks. CPT Code 09391 Low 64371 Moderate 27088 High History 0 1-2 3+ Comorbidities: cardiac [...] pain control. Santiago Dozier PT State License, [id number] documented in this encounter* Amanda Johnson, MOLD COOLER - 09/20/2019 10:02 AM EDT Andrew Mccollum [...] file Gets together: Not on file Attends yazidism service: Not on file Active member of [...] body heights and disc spaces. There is vtxq-co-nxuirivn multilevel disc space narrowing, endplate degenerative change [...] Moraes PTA - 10/11/2019 1:45 PM EDT [facility] DAILY TREATMENT NOTE Today's Date [...] 10/11/19 1340 OTHER Notes 140-220 Vitals Ward Jacoby, PT Therapeutic Exercise (49494) Parameters SKC Stretch, 20x3 Intervention PPTs, x10 [...] this time. Joyce Moraes PTA STATE LICENSE, [id number] documented in this encounter* Radha Hughes CNP [...] within last 12 months: yes Date: 12/31/19 Mechanical Assembly/Dining Server: Other Ophthalmologic Conditions: None known Nephropathy: Negative [...] 05/09/20 saw podiatry. Follows with Podiatry: Yes Hole Digger: Dr. Arroyo History of foot ulceration: No [...] Call if BG consistently <70 or >250. [phone] Mr. Arnold would benefit from [employer] continuous glucose monitoring system. Patient has had [...] within last 12 months: yes Date: 07/29 Mechanical Assembly/Dining Server: Other Ophthalmologic Conditions: None known Nephropathy: Negative [...] foot exam: 03/01/19 Follows with Podiatry: Yes Hole Digger: Dr. Arroyo History of foot ulceration: No [...] Call if BG consistently <70 or >250. [phone] Patient has been checking blood glucoses 4 [...] 5/16 Syrg, Use as directed QID. lancets [facility] Use to check BG QID SolusV2 brand [...] within last 12 months: yes Date: 12/31/19 Mechanical Assembly/Dining Server: Other Ophthalmologic Conditions: None known Nephropathy: Negative [...] foot exam: 12/31/19 Follows with Podiatry: Yes Hole Digger: Dr. Arroyo History of foot ulceration: No [...] Call if BG consistently <70 or >250. [phone] Mr. Arnold would benefit from [employer] continuous glucose monitoring system. Patient has had [...] 8:04 AM EDT [facility] [address] [facility] [address] [facility] [phone] Subjective: Andrew Arnold is a 73 y.o. [...] to schedule the procedure. Fax Order/Script to: [phone] for [place] Scheduling scripts [phone] for [facility] Scheduling scripts DO NOT USE R/O A DIAGNOSIS Order Specific Question: What type of stressing agent do you want to be used? Answer: Exercise / Treadmill Order Specific Question: Reason for Exam: Answer: chest discomfort XR Chest AP/PA and LAT Standing Status: Future Standing Expiration Date: 12/01/2019 Scheduling Instructions: OK to schedule at [facility] and all ambulatory sites Fax script to: [facility]- [phone] [facility]-[phone] ISM-[phone] [facility] - [phone] Echocardiogram complete Standing Status: Future Standing Expiration [...] limited Preston Healy MD [address] [address] Status Reason Specialty Diagnoses / Procedures Referre d By Contact Referred To Contact Closed Radiology Diagnoses Coronary artery disease involving [place] heart without angina pectoris, unspecified vessel or lesion type Chest pain, unspecified type Procedures NM Myocardial Perfusion Multiple SPECT Preston Healy MD [address] [address] Status Reason Specialty Diagnoses / Procedures Referred By Contact Referred To Contact Authorized Specialty Services Required/Carie ent's Best Interest Physical Therapy / Rehabilitation Diagnoses DDD (degenerative disc disease), lumbar Johnson, Amanda Arevalo, MOLD COOLER [address] [place] [address] [facility] [address] [facility] [address] [place] [phone] Status Reason Specialty Diagnoses / Procedures Referred By Contact Referred To Contact Authorized Cardiology Diagnoses Preoperative testing Procedures ECG 12 Lead Madiha Pandey MD [address] [place] [phone] Status Reason Specialty Diagnoses / Procedures Referred By Contact Referred To Contact Authorized Radiology Diagnoses Coronary artery disease involving [place] heart without angina pectoris, unspecified vessel or lesion type Chest pain, unspecified type Procedures NM Myocardial Perfusion Multiple SPECT Preston Healy MD [address] [address] Status Reason Specialty Diagnoses / Procedures Referred By Contact Referred To Contact Authorized Cardiology Diagnoses Chest pain, unspecified type S/P aortic valve replacement Procedures Echocardiogram complete Preston Healy MD [address] [address] Status Reason Specialty Diagnoses / Procedures Referred By Contact Referred To Contact New Request Cardiology Diagnoses Persistent atrial fibrillation (HCC) Procedures Echocardiogram complete Preston Healy MD [address] [address] Status Reason Specialty Diagnoses / Procedures Re ferred By Contact Referred To Contact Authorized Cardiology Diagnoses Persistent atrial fibrillation (HCC) Procedures Extended Holter Monitor (3-7 days) Preston Healy MD [address] [address] Status Reason Specialty Diagnoses / Procedures Referre d By Contact Referred To Contact Closed Cardiology Diagnoses Persistent atrial fibrillation (HCC) Procedures Extended Holter Monitor (3-7 days) Preston Healy MD [address] [address] Specialty Diagnoses / Procedures Referred By Contac t Referred To Contact Behavorist (Outpatient Social Work) Diagnoses Anxiety and depression Vivien Foreman MD [facility] [place] [address] Referral ID Status Reason Start Date Expiration Date V isits Requested Visits Authorized [id number] Authorized 03/02/2021 03/02/2022 1 1 Specialty Diagnoses / Procedures Referred By Contac t Referred To Contact Cardiology Diagnoses Pre-operative cardiovascular examination Hx of aortic valve replacement Procedures Echocardiogram complete Preston Healy MD [address] [address] Referral ID Status Reason Start Date Expiration Date V isits Requested Visits Authorized [id number] Authorized 12/22/2021 12/22/2022 1 1 Specialty Diagnoses / Procedures Referred By Contac t Referred To Contact Vascular Surgery Diagnoses PAD (peripheral artery disease) (HCC) Claudication (HCC) Preston Healy MD [address] [address] Referral ID Status Reason Start Date Expiration Date V isits Requested Visits Authorized [id number] Authorized 01/14/2022 01/14/2023 1 1 Specialty Diagnoses / Procedures Referred By Contac t Referred To Contact Cardiology Diagnoses PAD (peripheral artery disease) (HCC) Procedures Ultrasound ankle / brachial indices extremity complete Osbaldo Jim MD [address] [place] [address] Referral ID Status Reason Start Date Expiration Date V isits Requested Visits Authorized [id number] Authorized 01/14/2022 01/14/2023 1 1 Specialty Diagnoses / Procedures Referred By Contac t Referred To Contact Cardiology Diagnoses Atherosclerosis of [place] arteries of extremities with intermittent claudication, bilateral legs (HCC) PAD (peripheral artery disease) (HCC) Procedures US Doppler ankle/brachial index Sanju Bill III, DO [address] [place] [address] Referral ID Status Reason Start Date Expiration Date V isits Requested Visits Authorized [id number] Pending Review 12/09/2022 12/09/2023 1 1 Specialty Diagnoses / Procedures Referred By Contac t Referred To Contact Cardiology Diagnoses Persistent atrial fibrillation (HCC) Procedures Echocardiogram complete Preston Healy MD [address] [address] Referral ID Status Reason Start Date Expiration Date V isits Requested Visits Authorized [id number] Pending Review 03/04/2023 03/03/2024 1 1 Specialty Diagnoses / Procedures Referred By Contac t Referred To Contact Radiology Diagnoses Atherosclerosis of [place] arteries of extremities with intermittent claudication, bilateral legs (HCC) PAD (peripheral artery disease) (HCC) Procedures CT Angiogram Abdominal Aorta With Lower Extremity Sanju Bill III, DO [address] [place] [address] Referral ID Status Reason Start Date Expiration Date V isits Requested Visits Authorized [id number] Authorized 06/30/2023 06/29/2024 1 1 Specialty Diagnoses / Procedures Referred By Contac t Referred To Contact Diagnoses Type 2 diabetes mellitus with retinopathy of both eyes, with long-term current use of insulin, macular edema presence unspecified, unspecified retinopathy severity (HCC) Radha Hughes, JOHN [address] [place] [address] Referral ID Status Reason Start Date Expiration Date Visits Re quested Visits Authorized [id number] Closed 1 1 Specialty Diagnoses / Procedures Referred By Contac t Referred To Contact Rehabilitation Diagnoses At high risk for falls Corina, Vivien Kartik Mounir, MD [address] [address] Rehab [facility] [address] [place] [address] Referral ID Status Reason Start Date Expiration Date V isits Requested Visits Authorized [id number] Authorized 11/29/2023 11/28/2024 1 1 Referral ID Status Reason Start Date Expiration Date V isits Requested Visits Authorized [id number] Pending Review 01/26/2024 01/25/2025 1 1 Discharge [...] A MEDICAL NATURE, CALL YOUR DOCTOR/EMERGENCY ROOM. [facility] [phone] Make a follow-up appointment with your surgeon. [...] in this encounter Patient currently traveling in [place] and needs a refills on his Metoprolol succinate 25 mg every day #30/0. RX called to [facility] in [facility] Last OV 02/01/20. Scheduling to contact patient for appointment. documented in this encounter (unrecognized sect ion and content) No Status Records FoundNo Status Records FoundNo Status Records FoundNo Status Records FoundNo Status Records FoundNo Status Records FoundNo Status Records FoundNo Status Records FoundNo Status Records FoundNo Status Records Found INFORMATION SOURCE (unrecogn ized section and content) DATE CREATED AUTHOR 12/28/2017 [facility] DATE CREATED AUTHOR AUTHOR'S ORGANIZ ATION 10/25/2018 [facility] DATE CREATED AUTHOR AUTHOR'S ORGANIZ ATION 02/19/2019 [facility] DATE CREATED AUTHOR AUTHOR'S ORGANIZ ATION 02/21/2019 [facility] DATE CREATED AUTHOR AUTHOR'S ORGANIZ ATION 03/10/2019 [facility] DATE CREATED AUTHOR AUTHOR'S ORGANIZ ATION 05/08/2020 [facility] DATE CREATED AUTHOR AUTHOR'S ORGANIZ ATION 01/29/2025 [facility] DATE CREATED AUTHOR AUTHOR'S ORGANIZ ATION 02/19/2025 [facility] DATE CREATED AUTHOR AUTHOR'S ORGANIZ ATION 02/21/2025 [facility] DATE CREATED AUTHOR AUTHOR'S ORGANIZ ATION 02/23/2025 [facility] Reason for Visit (unrecogniz ed section and content) Reason Comments Physical Therapy Specialty Diagnoses / Procedures Referred By Vinod mercado Referred To Contact Rehabilitation Diagnoses At high risk for falls CorinaVivien cuba MD [address] [address] [facility] [address] [place] [address] Referral ID Status Reason Start Date Expiration Date V isits Requested Visits Authorized [id number] Authorized 11/29/2023 11/28/2024 9 199 Reason Comments Diabetes Mellitus Status Reason Specialty Diagnoses / Procedures Referred By Contact Referred To Contact Pending Review Cardiology Diagnoses Prominent abdominal aortic pulse Procedures Ultrasound abdominal aorta duplex limited Preston Healy MD [address] [address] Status Reason Specialty Diagnoses / Procedures Referre d By Contact Referred To Contact Closed Cardiology Diagnoses Chest pain, unspecified type S/P aortic valve replacement Procedures Echocardiogram complete w contrast Echocardiogram complete Preston Healy MD [address] [address] Status Reason Specialty Diagnoses / Procedures Referre d By Contact Referred To Contact Closed Radiology Diagnoses Coronary artery disease involving [place] heart without angina pectoris, unspecified vessel or lesion type Chest pain, unspecified type Procedures NM Myocardial Perfusion Multiple SPECT Preston Healy MD [address] [address] Reason Comments Pain Reason Comments Status Reason Specialty Diagnoses / Procedures Referre d By Contact Referred To Contact Diagnoses De Quervain's disease (radial styloid tenosynovitis) De Quervain's disease (radial styloid tenosynovitis) [M65.4] Procedures TENDON RELEASE DE QUERVAINS RIGHT Reason Comments Follow-up 6 mo ov w/ no compla ints today Medication Refill pt would like RX to [facility] due to leaving tomorrow for [facility] Status Reason Specialty Diagnoses / Procedures Referred By Contact Referred To Contact Authorized Specialty Services Required/Carie ent's Best Interest Physical Therapy / Rehabilitation Diagnoses DDD (degenerative disc disease), lumbar Amanda Johnson, MOLD COOLER [phone] [place] [address] [place] [address] [place] [address] Reason Comments Pain Reason Onset Date Comments [...] days) Preston Healy MD [address] [address] Reason Onset Date Comments Medication Refill 01/26/2021 [...] Risk Screening 06/12/2021 Reason Comments TELEHEATH PH. [phone] -DE NIES CP/ SOB/ DIZZINESS/ PALPITATIONS/ FATIGUE/ [...] (HCC) Preston Healy MD [address] [address] [facility] [address] [place] [address] Referral ID Status Reason Start Date Expiration Date Visits Re quested Visits Authorized [id number] Closed 01/14/2022 01/14/2023 1 1 Reason Comments [...] risk for falls Vivien Foreman MD [address] [address] [facility] [address] [place] [address] Reason Onset Date Comments Medication Refill 02/04/2024 [...] Ganglion cyst Babatunde, Liliya Oviedo, JOHN [address] [address] Phone: tel: fax: Amanda Johnson, MOLD COOLER [address] [place] [phone] Phone: tel: fax: Referral ID Status Reason Start Date Expiration Date V isits Requested Visits Authorized [id number] Closed Specialty Services Required/Carie ent's Best Interest [...] Expiration Date Visits Re quested Visits Authorized [id number] 1 1 Ernesto Gayle RN - 12/12/2018 [...] Andrew Arnold Admit Date: [id number] MR #: [id number] : 1945 The H&P has been reviewed [...] and thumb pain he was diagnosed in [place] with de Quervain's tenosynovitis. He had a [...] Nuclear Report Patient: CLAYTON Mccollum Med Rec#: [id number] (Age): 1945(73y) Height: Study Date: 12/12/2018 Weight: [...] Care Teams (unrecognized sec tion and content) Water/Wastewater Project Engineer Relationship Specialty Start Date End Date Vivien Foreman MD 1720 [place] [address] PCP - General Family Medicine 12/16/20 Water/Wastewater Project Engineer Relationship Specialty Start Date End Date Vivien Foreman MD [address] [address] PCP - General Family Medicine 12/16/20 Water/Wastewater Project Engineer Relationship Specialty Start Date End Date Vivien Foreman MD [address] [address] PCP - General Family Medicine 12/16/20 Water/Wastewater Project Engineer Relationship Specialty Start Date End Date Vivien Foreman MD [address] [address] PCP - General Family Medicine 12/16/20 Water/Wastewater Project Engineer Relationship Specialty Start Date End Date Vivien Foreman MD [address] [phone] PCP - General Family Medicine 12/16/20 Water/Wastewater Project Engineer Relationship Specialty Start Date End Date Vivien Foreman MD [address] [address] PCP - General Family Medicine 12/16/20 Vivien Foreman MD [address] [address] PCP - CMS Attributed Provider 10/09/20 Water/Wastewater Project Engineer Relationship Specialty Start Date End Date Vivien Foreman MD [address] [address] PCP - General Family Medicine 12/16/20 Vivien Foreman MD [address] [address] PCP - CMS Attributed Provider 10/09/20 Water/Wastewater Project Engineer Relationship Specialty Start Date End Date Vivien Foreman MD [address] [address] PCP - General Family Medicine 12/16/20 Vivien Foreman MD [address] [address] PCP - CMS Attributed Provider 10/09/20 Water/Wastewater Project Engineer Relationship Specialty Start Date End Date Vivien Foreman MD [address] [address] PCP - General Family Medicine 12/16/20 Vivien Foreman MD [address] [address] PCP - CMS Attributed Provider 10/09/20 Water/Wastewater Project Engineer Relationship Specialty Start Date End Date Vivien Foreman MD [address] [address] PCP - General Family Medicine 12/16/20 Water/Wastewater Project Engineer Relationship Specialty Start Date End Date Vivien Foreman MD [address] [address] PCP - General Family Medicine 12/16/20 Water/Wastewater Project Engineer Relationship Specialty Start Date End Date Vivien Foreman MD [address] [address] PCP - General Family Medicine 12/16/20 Water/Wastewater Project Engineer Relationship Specialty Start Date End Date Vivien Foreman MD [address] [address] PCP - General Family Medicine 12/16/20 Water/Wastewater Project Engineer Relationship Specialty Start Date End Date Vivien Foreman MD [address] [phone] PCP - General Family Medicine 12/16/20 Water/Wastewater Project Engineer Relationship Specialty Start Date End Date Vivien Foreman MD [address] [phone] PCP - General Family Medicine 12/16/20 Water/Wastewater Project Engineer Relationship Specialty Start Date End Date Vivien Foreman MD [address] [phone] PCP - General Family Medicine 12/16/20 Water/Wastewater Project Engineer Relationship Specialty Start Date End Date Vivien Foreman MD [address] [phone] PCP - General Family Medicine 12/16/20 Water/Wastewater Project Engineer Relationship Specialty Start Date End Date Vivien Foreman MD [address] [phone] PCP - General Family Medicine 12/16/20 Water/Wastewater Project Engineer Relationship Specialty Start Date End Date Vivien Foreman MD [address] [phone] PCP - General Family Medicine 12/16/20 Water/Wastewater Project Engineer Relationship Specialty Start Date End Date Vivien Foreman MD [address] [address] PCP - General Family Medicine 12/16/20 Radha Hughes CNP [address] [phone] Nurse Practitioner Nurse Practitioner 02/22/22 Preston Healy MD [address] [place] [address] Consulting Physician Cardiovascular Disease 02/22/22 Adilson Stone MD [address] [place] [address] Cardiology 02/22/22 Hola Arroyo Jr., DPM [address] [place] [address] Podiatry 02/22/22 Water/Wastewater Project Engineer Relationship Specialty Start Date End Date Vivien Foreman MD [address] [address] PCP - General Family Medicine 12/16/20 Radha Hughes, JOHN [address] [address] Nurse Practitioner Nurse Practitioner 02/22/22 Preston Healy MD [address] [place] [address] Consulting Physician Cardiovascular Disease 02/22/22 Adilson Stone MD [address] [place] [address] Cardiology 02/22/22 Hola Arroyo Jr., DPOlegario [address] [place] [address] Podiatry 02/22/22 Water/Wastewater Project Engineer Relationship Specialty Start Date End Date Vivien Foreman MD [address] [address] PCP - General Family Medicine 12/16/20 Radha Hughes, MOLD COOLER [address] [address] Nurse Practitioner Nurse Practitioner 02/22/22 Preston Healy MD [address] [place] [address] Consulting Physician Cardiovascular Disease 02/22/22 Adilson Stone MD [address] [place] [address] Cardiology 02/22/22 Hola Arroyo Jr., DPOlegario 45 [place] [address] Podiatry 02/22/22 Sanju Bill III, DO [address] [place] [address] Consulting Physician Vascular Surgery 03/17/22 Water/Wastewater Project Engineer Relationship Specialty Start Date End Date Vivien Foreman MD [address] [address] PCP - General Family Medicine 12/16/20 Radha Hughes, MOLD COOLER [address] [address] Nurse Practitioner Nurse Practitioner 02/22/22 Preston Healy MD [address] [place] [address] Consulting Physician Cardiovascular Disease 02/22/22 Adilson Stone MD [address] [place] [address] Cardiology 02/22/22 Hola Arroyo Jr., DPOlegario [address] [place] [address] Podiatry 02/22/22 Sanju Bill III, DO [address] [place] [address] Consulting Physician Vascular Surgery 03/17/22 Water/Wastewater Project Engineer Relationship Specialty Start Date End Date Vivien Foreman MD [address] [address] PCP - General Family Medicine 12/16/20 Radha Hughes, MOLD COOLER [address] [address] Nurse Practitioner Nurse Practitioner 02/22/22 Preston Healy MD [address] [place] [address] Consulting Physician Cardiovascular Disease 02/22/22 Adilson Stone MD [address] [place] [address] Cardiology 02/22/22 Hola Arroyo Jr., DPM 45 [place] [address] Podiatry 02/22/22 Sanju Bill III, DO [address] [place] [address] Consulting Physician Vascular Surgery 03/17/22 Water/Wastewater Project Engineer Relationship Specialty Start Date End Date Vivien Foreman MD [address] [address] PCP - General Family Medicine 12/16/20 Radha Hughes, MOLD COOLER [address] [address] Nurse Practitioner Nurse Practitioner 02/22/22 Preston Healy MD [address] [place] [address] Consulting Physician Cardiovascular Disease 02/22/22 Adilson Stone MD [address] [place] [address] Cardiology 02/22/22 Hola Arroyo Jr., DPM [address] [place] [address] Podiatry 02/22/22 Sanju Bill III, DO [address] [place] [address] Consulting Physician Vascular Surgery 03/17/22 Water/Wastewater Project Engineer Relationship Specialty Start Date End Date Vivien Foreman MD [address] [address] PCP - General Family Medicine 12/16/20 Radha Hughes CNP [address] [address] Nurse Practitioner Nurse Practitioner 02/22/22 Preston Healy MD [address] [place] [address] Consulting Physician Cardiovascular Disease 02/22/22 Adilson Stone MD [address] [place] [address] Cardiology 02/22/22 Hola Arroyo Jr., DPM [address] [place] [address] Podiatry 02/22/22 Sanju Bill III, DO [address] [place] [address] Consulting Physician Vascular Surgery 03/17/22 Water/Wastewater Project Engineer Relationship Specialty Start Date End Date Vivien Foreman MD [address] [address] PCP - General Family Medicine 12/16/20 Radha Hughes CNP [address] [address] Nurse Practitioner Nurse Practitioner 02/22/22 Preston Healy MD [address] [place] [address] Consulting Physician Cardiovascular Disease 02/22/22 Adilson Stone MD [address] [place] [address] Cardiology 02/22/22 Hola Arroyo Jr., DPM 45 [place] [address] Podiatry 02/22/22 Sanju Bill III, DO [address] [place] [address] Consulting Physician Vascular Surgery 03/17/22 Water/Wastewater Project Engineer Relationship Specialty Start Date End Date Vivien Foreman MD [address] [address] PCP - General Family Medicine 12/16/20 Vivien Foreman MD [address] [address] PCP - [facility] Attributed Provider 01/08/22 Radha Hughes MOLD COOLER [address] [address] Nurse Practitioner Nurse Practitioner 02/22/22 Preston Healy MD [address] [place] [address] Consulting Physician Cardiovascular Disease 02/22/22 Adilson Stone MD [address] [phone] Cardiology 02/22/22 Hola Arroyo Jr., DPM 45 [place] [address] Podiatry 02/22/22 Sanju Bill III, DO [address] [phone] Consulting Physician Vascular Surgery 03/17/22 Water/Wastewater Project Engineer Relationship Specialty Start Date End Date Vivien Foreman MD [address] [address] PCP - General Family Medicine 12/16/20 Vivien Foreman MD [address] [address] PCP - [facility] Attributed Provider 01/08/22 Radha Hughes, MOLD COOLER [address] [address] Nurse Practitioner Nurse Practitioner 02/22/22 Preston Healy MD [address] [place] [address] Consulting Physician Cardiovascular Disease 02/22/22 Adilson Stone MD [address] [place] [address] Cardiology 02/22/22 Hola Arroyo Jr., DPM 45 [place] [address] Podiatry 02/22/22 Sanju Bill III, [address] [place] [address] Consulting Physician Vascular Surgery 03/17/22 Water/Wastewater Project Engineer Relationship Specialty Start Date End Date Vivien Foreman MD [address] [address] PCP - General Family Medicine 12/16/20 Vivien Foreman MD [address] [address] PCP - CMS Attributed Provider 10/09/20 07/10/21 Radha Hughes, JOHN [address] [place] [address] PCP - CMS Attributed Provider 10/09/21 01/07/22 Vivien Foreman MD [address] [address] PCP - CMS Attributed Provider 01/08/22 Hayley Gimenez, heel top lift splitterComposing Room Machinist Apprentice 12/21/21 12/21/21 Radha Hughes CNP [address] [address] Nurse Practitioner Nurse Practitioner 02/22/22 Preston Healy MD [address] [place] [address] Consulting Physician Cardiovascular Disease 02/22/22 Adilson Stone MD [address] [place] [address] Cardiology 02/22/22 Hola Arroyo Jr., DPM 45 [place] [address] Podiatry 02/22/22 Sanju Bill III, [address] [phone] Consulting Physician Vascular Surgery 03/17/22 Water/Wastewater Project Engineer Relationship Specialty Start Date End Date Dieter Bernal MD [address] [id number] PCP - General Family Medicine 09/01/15 12/15/20 Vivien Foreman MD [address] [phone] PCP - General Family Medicine 12/16/20 Vivien Foreman MD [address] [address] PCP - CMS Attributed Provider 10/09/20 07/10/21 Radha Hughes CNP [address] [place] [address] PCP - CMS Attributed Provider 10/09/21 01/07/22 Vivien Foreman MD [address] [address] PCP - CMS Attributed Provider 01/08/22 Hayley Gimenez, heel top lift splitterComposing Room Machinist Apprentice 12/21/21 12/21/21 Radha Hughes CNP [facility] [phone] Nurse Practitioner Nurse Practitioner 02/22/22 Preston Healy MD [address] [place] [address] Consulting Physician Cardiovascular Disease 02/22/22 Adilson Stone MD [address] [place] [address] Cardiology 02/22/22 Hola Arroyo Jr., DPM [facility] [place] [phone] Podiatry 02/22/22 Sanju Bill III, DO [address] [place] [address] Consulting Physician Vascular Surgery 03/17/22 Water/Wastewater Project Engineer Relationship Specialty Start Date End Date Dieter Bernal MD [address] [id number] PCP - General Family Medicine 09/01/15 12/15/20 Vivien Foreman MD [address] [address] PCP - General Family Medicine 12/16/20 Vivien Foreman MD [address] [address] PCP - CMS Attributed Provider 10/09/20 07/10/21 Radha Hughes CNP [address] [place] [address] PCP - CMS Attributed Provider 10/09/21 01/07/22 Vivien Foreman MD [address] [address] PCP - CMS Attributed Provider 01/08/22 Hayley Gimenez, heel top lift splitterComposing Room Machinist Apprentice 12/21/21 12/21/21 Radha Hughes, JOHN [address] [address] Nurse Practitioner Nurse Practitioner 02/22/22 Preston Healy MD [address] [place] [address] Consulting Physician Cardiovascular Disease 02/22/22 Adilson Stone MD [address] [place] [address] Cardiology 02/22/22 Hola Arroyo Jr., DPM [address] [phone] Podiatry 02/22/22 Sanju Bill III, [address] [phone] Consulting Physician Vascular Surgery 03/17/22 Water/Wastewater Project Engineer Relationship Specialty Start Date End Date Vivien Foreman MD [address] [address] PCP - General Family Medicine 12/16/20 Vivien Foreman MD [address] [address] PCP - CMS Attributed Provider 01/08/22 Radha Hughes, JOHN [address] [address] Nurse Practitioner Nurse Practitioner 02/22/22 Preston Healy MD [address] [place] [address] Consulting Physician Cardiovascular Disease 02/22/22 Adilson Stone MD [address] [place] [address] Cardiology 02/22/22 Hola Arroyo Jr., SAMIR 45 [place] [address] Podiatry 02/22/22 Sanju Bill III, DO [address] [place] [address] Consulting Physician Vascular Surgery 03/17/22 Water/Wastewater Project Engineer Relationship Specialty Start Date End Date Vivien Foreman MD [facility] [address] [address] PCP - General Family Medicine 12/16/20 Radha Hughes CNP [facility] [address] [address] Nurse Practitioner Nurse Practitioner 02/22/22 Preston Healy MD [address] [place] [address] Consulting Physician Cardiovascular Disease 02/22/22 Adilson Stone MD [address] [place] [address] Cardiology 02/22/22 Hola Arroyo Jr., DPM 45 [place] [address] Podiatry 02/22/22 Sanju Bill III, DO [address] [place] [address] Consulting Physician Vascular Surgery 03/17/22 Water/Wastewater Project Engineer Relationship Specialty Start Date End Date Vivien Foreman MD [address] [address] PCP - General Family Medicine 12/16/20 Radha Hughes CNP [facility] [address] [address] Nurse Practitioner Nurse Practitioner 02/22/22 Preston Healy MD [address] [place] [address] Consulting Physician Cardiovascular Disease 02/22/22 Adilson Stone MD [address] [place] [address] Cardiology 02/22/22 Hola Arroyo Jr., DPM [address] [place] [address] Podiatry 02/22/22 Sanju Bill III, DO [address] [place] [address] Consulting Physician Vascular Surgery 03/17/22 Water/Wastewater Project Engineer Relationship Specialty Start Date End Date Vivien Foreman MD [facility] [address] [address] PCP - General Family Medicine 12/16/20 Radha Hughes CNP [facility] [address] [address] Nurse Practitioner Nurse Practitioner 02/22/22 Preston Healy MD [address] [facility] [place] [address] Consulting Physician Cardiovascular Disease 02/22/22 Adilson Stone MD [address] [facility] [place] [address] Cardiology 02/22/22 Hola Arroyo Jr., [place] [address] Podiatry 02/22/22 Sanju Bill III, DO [address] [place] [address] Consulting Physician Vascular Surgery 03/17/22 Water/Wastewater Project Engineer Relationship Specialty Start Date End Date Vivien Foreman MD [facility] [address] [address] PCP - General Family Medicine 12/16/20 Radha Hughes CNP [facility] [address] [address] Nurse Practitioner Nurse Practitioner 02/22/22 Preston Healy MD [address] [facility] [place] [address] Consulting Physician Cardiovascular Disease 02/22/22 Adilson Stone MD [address] [place] [address] Cardiology 02/22/22 Hola Arroyo Jr., DPM [address] [place] [address] Podiatry 02/22/22 Sanju Bill III, [address] [place] [address] Consulting Physician Vascular Surgery 03/17/22 Water/Wastewater Project Engineer Relationship Specialty Start Date End Date Vivien Foreman MD [address] [address] PCP - General Family Medicine 12/16/20 Radha Hughes, JOHN [facility] [address] [address] Nurse Practitioner Nurse Practitioner 02/22/22 Preston Healy MD [address] [place] [address] Consulting Physician Cardiovascular Disease 02/22/22 Adilson Stone MD [address] [place] [address] Cardiology 02/22/22 Hola Arroyo Jr., DPM 45 [place] [address] Podiatry 02/22/22 Sanju Bill III, [address] [place] [address] Consulting Physician Vascular Surgery 03/17/22 Water/Wastewater Project Engineer Relationship Specialty Start Date End Date Vivien Foreman MD [address] [place], [place] [phone] PCP - General Family Medicine 12/16/20 Radha Hughes, JOHN [address] [place], [place] [address] Nurse Practitioner Nurse Practitioner 02/22/22 Preston Healy MD [address] [place] [address] Consulting Physician Cardiovascular Disease 02/22/22 Adilson Stone MD [address] [place] [phone] Cardiology 02/22/22 Hola Arroyo Jr., DPM [address] [place], [place] [phone] Podiatry 02/22/22 Sanju Bill III, DO [address] [place] [address] Consulting Physician Vascular Surgery 03/17/22 Water/Wastewater Project Engineer Relationship Specialty Start Date End Date Vivien Foreman MD [address] [place] [address] PCP - General Family Medicine 12/16/20 Radha Hughes, JOHN [address] [place], [place] [address] Nurse Practitioner Nurse Practitioner 02/22/22 Preston Healy MD [address] [place] [address] Consulting Physician Cardiovascular Disease 02/22/22 Adilson Stone MD [address] [place] [address] Cardiology 02/22/22 Hola Arroyo Jr., DPM [address] [place] [address] Podiatry 02/22/22 Sanju Bill III, DO [address] [place] [address] Consulting Physician Vascular Surgery 03/17/22 Water/Wastewater Project Engineer Relationship Specialty Start Date End Date Vivien Foreman MD [address] [address] PCP - General Family Medicine 12/16/20 Radha Hughes CNP [facility] [address] [address] Nurse Practitioner Nurse Practitioner 02/22/22 Preston Healy MD [address] [place] [address] Consulting Physician Cardiovascular Disease 02/22/22 Adilson Stone MD [address] [place] [address] Cardiology 02/22/22 Hola Arroyo Jr. DPM [address] [place] [address] Podiatry 02/22/22 Sanju Bill III, DO [address] [facility] [place] [address] Consulting Physician Vascular Surgery 03/17/22 Water/Wastewater Project Engineer Relationship Specialty Start Date End Date Vivien Foreman MD [address] [address] PCP - General Family Medicine 12/16/20 Radha Hughes CNP [address] [address] Nurse Practitioner Nurse Practitioner 02/22/22 Preston Healy MD [address] [place] [address] Consulting Physician Cardiovascular Disease 02/22/22 Adilson Stone MD [address] [place] [address] Cardiology 02/22/22 Hola Arroyo Jr., DPOlegario 45 [place] [address] Podiatry 02/22/22 Sanju Bill III, DO 335 [facility] [place] [address] Consulting Physician Vascular Surgery 03/17/22 Water/Wastewater Project Engineer Relationship Specialty Start Date End Date Vivien Foreman MD [address] [address] PCP - General Family Medicine 12/16/20 Radha Hughes, JOHN [facility] [address] [address] Nurse Practitioner Nurse Practitioner 02/22/22 Preston Healy MD [address] [place] [address] Consulting Physician Cardiovascular Disease 02/22/22 Adilson Stone MD [address] [place] [address] Cardiology 02/22/22 Hola Arroyo Jr., DPM [address] [place] [address] Podiatry 02/22/22 Sanju Bill III, DO [address] [place] [address] Consulting Physician Vascular Surgery 03/17/22 Water/Wastewater Project Engineer Relationship Specialty Start Date End Date Vivien Foreman MD [facility] [address] [address] PCP - General Family Medicine 12/16/20 Radha Hughes, JOHN [address] [address] Nurse Practitioner Nurse Practitioner 02/22/22 Preston Healy MD [address] [place] [address] Consulting Physician Cardiovascular Disease 02/22/22 Adilson Stone MD [address] [place] [address] Cardiology 02/22/22 Hola Arroyo Jr., DPM [address] [place] [address] Podiatry 02/22/22 Sanju Bill III, DO [address] [place] [address] Consulting Physician Vascular Surgery 03/17/22 Water/Wastewater Project Engineer Relationship Specialty Start Date End Date Vivien Foreman MD [facility] [address] [address] PCP - General Family Medicine 12/16/20 Radha Hughes CNP [facility] [address] [address] Nurse Practitioner Nurse Practitioner 02/22/22 Preston Healy MD [address] [place] [address] Consulting Physician Cardiovascular Disease 02/22/22 Adilson Stone MD [address] [place] [address] Cardiology 02/22/22 Hola Arroyo Jr., DPM [address] [place] [address] Podiatry 02/22/22 Sanju Bill III, DO [address] [place] [address] Consulting Physician Vascular Surgery 03/17/[address] Dietitian Case Management 07/20/23 Water/Wastewater Project Engineer Relationship Specialty Start Date End Date Vivien Foreman MD [address] [address] PCP - General Family Medicine 12/16/20 Radha Hughes CNP [facility] [address] [address] Nurse Practitioner Nurse Practitioner 02/22/22 Preston Healy MD 335 [facility] [place] [address] Consulting Physician Cardiovascular Disease 02/22/22 Adilson Stone MD 335 [facility] [place] [address] Cardiology 02/22/22 Hola Arroyo Jr., SAMIR [address] [place] [address] Podiatry 02/22/22 Sanju Bill III, DO [address] [place] [address] Consulting Physician Vascular Surgery 03/17/[address] Dietitijose Case Management 07/20/23 Water/Wastewater Project Engineer Relationship Specialty Start Date End Date Vivien Foreman MD [address] [address] PCP - General Family Medicine 12/16/20 Radha Hughes, JOHN [address] [address] Nurse Practitioner Nurse Practitioner 02/22/22 Preston Healy MD [address] [place] [address] Consulting Physician Cardiovascular Disease 02/22/22 Adilson Stone MD [address] [place] [address] Cardiology 02/22/22 Hola Arroyo Jr. DPOlegario [address] [place] [address] Podiatry 02/22/22 Sanju Bill III, DO [address] [place] [address] Consulting Physician Vascular Surgery 03/17/[address] Dietitian Case Management 07/20/23 Water/Wastewater Project Engineer Relationship Specialty Start Date End Date Vivien Foreman MD [facility] [address] [address] PCP - General Family Medicine 12/16/20 Radha Hugehs, JOHN [address] [address] Nurse Practitioner Nurse Practitioner 02/22/22 Preston Healy MD [address] [place] [address] Consulting Physician Cardiovascular Disease 02/22/22 Adilson Stone MD [address] [place] [address] Cardiology 02/22/22 Hola Arroyo Jr., DPM [address] [place] [address] Podiatry 02/22/22 Sanju Bill III, DO [address] [place] [address] Consulting Physician Vascular Surgery 03/17/[address] Dietitian Case Management 07/20/23 Water/Wastewater Project Engineer Relationship Specialty Start Date End Date Vivien Foreman MD [facility] [address] [address] PCP - General Family Medicine 12/16/20 Radha Hughes, JOHN [facility] [address] [address] Nurse Practitioner Nurse Practitioner 02/22/22 Preston Healy MD [address] [place] [address] Consulting Physician Cardiovascular Disease 02/22/22 Adilson Stone MD [address] [place] [address] Cardiology 02/22/22 Hola Arroyo Jr. DPOlegario [address] [place] [address] Podiatry 02/22/22 Sanju Bill III, DO [address] [place] [address] Consulting Physician Vascular Surgery 03/17/[address] Dietitian Case Management 07/20/23 Water/Wastewater Project Engineer Relationship Specialty Start Date End Date Vivien Foreman MD [address] [address] PCP - General Family Medicine 12/16/20 Radha Hughes CNP [facility] [place] [phone] Nurse Practitioner Nurse Practitioner 02/22/22 Preston Healy MD [address] [place] [address] Consulting Physician Cardiovascular Disease 02/22/22 Adilson Stone MD [address] [place] [address] Cardiology 02/22/22 Hola Arroyo Jr., DPOlegario [address] [place] [address] Podiatry 02/22/22 Sanju Bill III, DO [address] [place] [address] Consulting Physician Vascular Surgery 03/17/[address] Dietitian Case Management 07/20/23 Water/Wastewater Project Engineer Relationship Specialty Start Date End Date Vivien Foreman MD [facility] [address] [address] PCP - General Family Medicine 12/16/20 Radha Hughes CNP [facility] [address] [address] Nurse Practitioner Nurse Practitioner 02/22/22 Preston Healy MD [address] [place] [phone] Consulting Physician Cardiovascular Disease 02/22/22 Adilson Stone MD [address] [place], [place] [id number] Cardiology 02/22/22 Hola Arroyo Jr., DPM [address] [place], [place] [phone] Podiatry 02/22/22 Sanju Bill III, DO [address] [place] [address] Consulting Physician Vascular Surgery 03/17/[address] Dietitian Case Management 07/20/23 Water/Wastewater Project Engineer Relationship Specialty Start Date End Date Vivien Foreman MD [facility] [address] [address] PCP - General Family Medicine 12/16/20 Radha Hughes CNP [address] [address] Nurse Practitioner Nurse Practitioner 02/22/22 Preston Healy MD [address] [place] [address] Consulting Physician Cardiovascular Disease 02/22/22 Adilson Stone MD [address] [place] [address] Cardiology 02/22/22 Hola Arroyo Jr., DPM [address] [place] [address] Podiatry 02/22/22 Sanju Bill III, DO [address] [place] [address] Consulting Physician Vascular Surgery 03/17/[address] Dietitian Case Management 07/20/23 Water/Wastewater Project Engineer Relationship Specialty Start Date End Date Vivien Foreman MD [facility] [address] [address] PCP - General Family Medicine 12/16/20 Radha Hughes CNP [address] [address] Nurse Practitioner Nurse Practitioner 02/22/22 Preston Healy MD [address] [place] [address] Consulting Physician Cardiovascular Disease 02/22/22 Adilson Stone MD 335 [facility] [place] [address] Cardiology 02/22/22 Hola Arroyo Jr., DPM [address] [place] [address] Podiatry 02/22/22 Sanju Bill III, DO [address] [place] [address] Consulting Physician Vascular Surgery 03/17/[address] Dietitian Case Management 07/20/23 Water/Wastewater Project Engineer Relationship Specialty Start Date End Date Vivien Foreman MD [address] [address] PCP - General Family Medicine 12/16/20 Radha Hughes, JOHN [address] [address] Nurse Practitioner Nurse Practitioner 02/22/22 Preston Healy MD [address] [place] [address] Consulting Physician Cardiovascular Disease 02/22/22 Adilson Stone MD [address] [place] [address] Cardiology 02/22/22 Hola Arroyo Jr., DPM [address] [place] [address] Podiatry 02/22/22 Sanju Bill III, DO [address] [place] [address] Consulting Physician Vascular Surgery 03/17/[address] Dietitian Case Management 07/20/23 Water/Wastewater Project Engineer Relationship Specialty Start Date End Date Vivien Foreman MD [facility] [address] [address] PCP - General Family Medicine 12/16/20 Radha Hughes CNP [facility] [address] [address] Nurse Practitioner Nurse Practitioner 02/22/22 Preston Healy MD [address] [place] [phone] Consulting Physician Cardiovascular Disease 02/22/22 Adilson Stone MD [address] [place] [address] Cardiology 02/22/22 Hola Arroyo Jr., DPM [address] [place] [address] Podiatry 02/22/22 Sanju Bill III, DO [address] [place] [address] Consulting Physician Vascular Surgery 03/17/[address] Dietitian Case Management 07/20/23 Water/Wastewater Project Engineer Relationship Specialty Start Date End Date Vivien Foreman MD [facility] [address] [address] PCP - General Family Medicine 12/16/20 Radha Hughes CNP [address] [place] [address] Nurse Practitioner Nurse Practitioner 02/22/22 Preston Healy MD [address] [place] [address] Consulting Physician Cardiovascular Disease 02/22/22 Adilson Stone MD [address] [place] [address] Cardiology 02/22/22 Hola Arroyo Jr., DPM [address] [place] [address] Podiatry 02/22/22 Sanju Bill III, DO [address] [place] [address] Consulting Physician Vascular Surgery 03/17/[address] Dietitian Case Management 07/20/23 Water/Wastewater Project Engineer Relationship Specialty Start Date End Date Vivien Foreman MD [address] [place] [address] PCP - General Family Medicine 12/16/20 Radha Hughes CNP [address] [place] [address] Nurse Practitioner Nurse Practitioner 02/22/22 Preston Healy MD [address] [place] [address] Consulting Physician Cardiovascular Disease 02/22/22 Adilson Stone MD [address] [place] [phone] Cardiology 02/22/22 Hola Arroyo Jr., SAMIR [address] [place] [phone] Podiatry 02/22/22 Sanju Bill III, DO [address] [place] [phone] Consulting Physician Vascular Surgery 03/17/[address] Dietitian Case Management 07/20/23 Water/Wastewater Project Engineer Relationship Specialty Start Date End Date Vivien Foreman MD [address] [place] [phone] PCP - General Family Medicine 12/16/20 Radha Hughes CNP [address] [place] [phone] Nurse Practitioner Nurse Practitioner 02/22/22 Preston Healy MD [address] [place] [address] Consulting Physician Cardiovascular Disease 02/22/22 Adilson Stone MD [address] [place] [address] Cardiology 02/22/22 Hola Arroyo Jr., DPM [address] [place] [address] Podiatry 02/22/22 Sanju Bill III, DO 335 [facility] [place] [address] Consulting Physician Vascular Surgery 03/17/[address] Dietitian Case Management 07/20/23 Water/Wastewater Project Engineer Relationship Specialty Start Date End Date Vivien Foreman MD [address] [address] PCP - General Family Medicine 12/16/20 Radha Hughes CNP [address] [address] Nurse Practitioner Nurse Practitioner 02/22/22 Preston Healy MD [address] [place] [address] Consulting Physician Cardiovascular Disease 02/22/22 Adilson Stone MD [address] [place] [address] Cardiology 02/22/22 Hola Arroyo Jr., SAMIR [address] [place] [address] Podiatry 02/22/22 Sanju Bill III, DO [address] [place] [address] Consulting Physician Vascular Surgery 03/17/[address] Dietitijose Case Management 07/20/23 Water/Wastewater Project Engineer Relationship Specialty Start Date End Date Vivien Foreman MD [facility] [address] [address] PCP - General Family Medicine 12/16/20 Radha Hughes, JHON [facility] [address] [address] Nurse Practitioner Nurse Practitioner 02/22/22 Preston Healy MD [address] [place] [address] Consulting Physician Cardiovascular Disease 02/22/22 Adilson Stone MD [address] [place] [address] Cardiology 02/22/22 Hola Arroyo Jr., DPM [address] [place] [address] Podiatry 02/22/22 Sanju Bill III, DO [address] [place] [address] Consulting Physician Vascular Surgery 03/17/22 Water/Wastewater Project Engineer Relationship Specialty Start Date End Date Vivien Foreman MD [facility] [address] [address] PCP - General Family Medicine 12/16/20 Radha Hughes CNP [facility] [address] [address] Nurse Practitioner Nurse Practitioner 02/22/22 Preston Healy MD 335 [facility] [place] [address] Consulting Physician Cardiovascular Disease 02/22/22 Adilson Stone MD [address] [place] [address] Cardiology 02/22/22 Hola Arroyo Jr., DPM [address] [place] [address] Podiatry 02/22/22 Sanju Bill III, DO 335 [facility] [place] [address] Consulting Physician Vascular Surgery 03/17/22 Water/Wastewater Project Engineer Relationship Specialty Start Date End Date Vivien Foreman MD [address] [place] [phone] PCP - General Family Medicine 12/16/20 Radha Hughes CNP [address] [address] Nurse Practitioner Nurse Practitioner 02/22/22 Preston Healy MD [address] [place] [address] Consulting Physician Cardiovascular Disease 02/22/22 Adilson Stone MD [address] [place] [address] Cardiology 02/22/22 Hola Arroyo Jr., DPM [address] [place] [address] Podiatry 02/22/22 Sanju Bill III, DO [address] [place] [address] Consulting Physician Vascular Surgery 03/17/22 Water/Wastewater Project Engineer Relationship Specialty Start Date End Date Vivien Foreman MD [facility] [place] [phone] PCP - General Family Medicine 12/16/20 Radah Hughes CNP [address] [place], [place] [phone] Nurse Practitioner Nurse Practitioner 02/22/22 Preston Healy MD [address] [place], [place] [phone] Consulting Physician Cardiovascular Disease 02/22/22 Adilson Stone MD [address] [place] [address] Cardiology 02/22/22 Hola Arroyo Jr., [place] [address] Podiatry 02/22/22 Sanju Bill III, DO [address] [place] [address] Consulting Physician Vascular Surgery 03/17/22 Water/Wastewater Project Engineer Relationship Specialty Start Date End Date Vivien Foreman MD [address] [place] [address] PCP - General Family Medicine 12/16/20 Radha Hughes CNP [address] [place], [place] [phone] Nurse Practitioner Nurse Practitioner 02/22/22 Preston Healy MD [address] [place] [address] Consulting Physician Cardiovascular Disease 02/22/22 Adilson Stone MD [address] [place] [address] Cardiology 02/22/22 Hola Arroyo Jr., DPM [address] [place], [place] [phone] Podiatry 02/22/22 Sanuj Bill III, DO [address] [place] [address] Consulting Physician Vascular Surgery 03/17/22 Water/Wastewater Project Engineer Relationship Specialty Start Date End Date Vivien Foreman MD [address] [place] [address] PCP - General Family Medicine 12/16/20 Radha Hughes CNP [address] [place] [address] Nurse Practitioner Nurse Practitioner 02/22/22 Preston Healy MD [address] [place] [address] Consulting Physician Cardiovascular Disease 02/22/22 Adilson Stone MD 335 [facility] [place] [address] Cardiology 02/22/22 Hola Arroyo Jr., DPM [address] [place] [address] Podiatry 02/22/22 Sanju Bill III, DO [address] [place] [address] Consulting Physician Vascular Surgery 03/17/22 Water/Wastewater Project Engineer Relationship Specialty Start Date End Date Vivien Foreman MD [address] [address] PCP - General Family Medicine 12/16/20 Radha Hughes CNP [address] [address] Nurse Practitioner Nurse Practitioner 02/22/22 Preston Healy MD [address] [place] [address] Consulting Physician Cardiovascular Disease 02/22/22 Adilson Stone MD [address] [place] [address] Cardiology 02/22/22 Hola Arroyo Jr., DPOlegario [address] [place] [address] Podiatry 02/22/22 Sanju Bill III, DO [address] [place] [address] Consulting Physician Vascular Surgery 03/17/22 Water/Wastewater Project Engineer Relationship Specialty Start Date End Date Vivien Foreman MD [facility] [address] [address] PCP - General Family Medicine 12/16/20 Radha Hughes, MOLD COOLER [address] [place] [address] Nurse Practitioner Nurse Practitioner 02/22/22 Preston Healy MD [address] [place] [address] Consulting Physician Cardiovascular Disease 02/22/22 Adilson Stone MD [address] [place] [address] Cardiology 02/22/22 Hola Arroyo Jr., DPM [address] [place] [address] Podiatry 02/22/22 Sanju Bill III, DO [address] [place] [address] Consulting Physician Vascular Surgery 03/17/22 Water/Wastewater Project Engineer Relationship Specialty Start Date End Date Vivien Foreman MD [facility] [address] [address] PCP - General Family Medicine 12/16/20 Radha Hughes, JOHN [address] [address] Nurse Practitioner Nurse Practitioner 02/22/22 Preston Healy MD [address] [place] [address] Consulting Physician Cardiovascular Disease 02/22/22 Adilson Stone MD [address] [place] [address] Cardiology 02/22/22 Hola Arroyo Jr., DPM [address] [place] [address] Podiatry 02/22/22 Sanju iBll III, DO [address] [place] [address] Consulting Physician Vascular Surgery 03/17/22 Water/Wastewater Project Engineer Relationship Specialty Start Date End Date Vivien Foreman MD [facility] [address] [address] PCP - General Family Medicine 12/16/20 Radha Hughes CNP [facility] [address] [address] Nurse Practitioner Nurse Practitioner 02/22/22 Preston Healy MD [address] [place] [address] Consulting Physician Cardiovascular Disease 02/22/22 Adilson Stone MD [address] [place] [address] Cardiology 02/22/22 Hola Arroyo Jr. DPOlegario [address] [place] [address] Podiatry 02/22/22 Sanju Bill III, 335 [facility] [place] [phone] Consulting Physician Vascular Surgery 03/17/22 Water/Wastewater Project Engineer Relationship Specialty Start Date End Date Vivien Foreman MD [address] [address] PCP - General Family Medicine 12/16/20 Radha Hughes CNP [address] [place] [phone] Nurse Practitioner Nurse Practitioner 02/22/22 Preston Healy MD [address] [place] [address] Consulting Physician Cardiovascular Disease 02/22/22 Adilson Stone MD [address] [place] [address] Cardiology 02/22/22 Hola Arroyo Jr. DPOlegario [address] [place] [address] Podiatry 02/22/22 Sanju Bill III, DO [address] [place] [address] Consulting Physician Vascular Surgery 03/17/22 Water/Wastewater Project Engineer Relationship Specialty Start Date End Date Vivien Foreman MD [facility] [address] [address] PCP - General Family Medicine 12/16/20 Radha Hughes, JOHN [facility] [address] [address] Nurse Practitioner Nurse Practitioner 02/22/22 Preston Healy MD [address] [place] [address] Consulting Physician Cardiovascular Disease 02/22/22 Adilson Stone MD [address] [place] [address] Cardiology 02/22/22 Hola Arroyo Jr., DPM [address] [place] [address] Podiatry 02/22/22 Sanju Bill III, DO [address] [place] [address] Consulting Physician Vascular Surgery 03/17/22 Water/Wastewater Project Engineer Relationship Specialty Start Date End Date Vivien Foreman MD [facility] [address] [address] PCP - General Family Medicine 12/16/20 Radha Hughes, JOHN [facility] [address] [address] Nurse Practitioner Nurse Practitioner 02/22/22 Preston Healy MD 335 [facility] [place] [address] Consulting Physician Cardiovascular Disease 02/22/22 Adilson Stone MD [address] [facility] [place] [address] Cardiology 02/22/22 Hola Arroyo Jr., DPM [address] [place] [address] Podiatry 02/22/22 Sanju Bill III, DO [address] [place] [address] Consulting Physician Vascular Surgery 03/17/22 Water/Wastewater Project Engineer Relationship Specialty Start Date End Date Vivien Foreman MD [address] [address] PCP - General Family Medicine 12/16/20 Radha Hughes CNP [address] [address] Nurse Practitioner Nurse Practitioner 02/22/22 Preston Healy MD 335 [facility] [place] [address] Consulting Physician Cardiovascular Disease 02/22/22 Adilson Stone MD [address] [place] [address] Cardiology 02/22/22 Hola Arroyo Jr., DPM [address] [place] [address] Podiatry 02/22/22 Sanju Bill III, DO [address] [facility] [place] [address] Consulting Physician Vascular Surgery 03/17/22 Water/Wastewater Project Engineer Relationship Specialty Start Date End Date Vivien Foreman MD [address] [address] PCP - General Family Medicine 12/16/20 Radha Hughes CNP [facility] [address] [address] Nurse Practitioner Nurse Practitioner 02/22/22 Preston Healy MD 335 [facility] [place] [address] Consulting Physician Cardiovascular Disease 02/22/22 Adilson Stone MD [address] [place] [address] Cardiology 02/22/22 Hola Arroyo Jr., SAMIR [address] [place] [address] Podiatry 02/22/22 Sanju Bill III, DO [address] [facility] [place] [address] Consulting Physician Vascular Surgery 03/17/22 Water/Wastewater Project Engineer Relationship Specialty Start Date End Date Vivien Foreman MD [address] [address] PCP - General Family Medicine 12/16/20 Radha Hughes CNP [facility] [address] [address] Nurse Practitioner Nurse Practitioner 02/22/22 Preston Healy MD [address] [place], [place] [address] Consulting Physician Cardiovascular Disease 02/22/22 Adilson Stone MD [address] [place] [address] Cardiology 02/22/22 Hola Arroyo Jr., LIONM [address] [place] [address] Podiatry 02/22/22 Sanju Bill III, DO [address] [place] [address] Consulting Physician Vascular Surgery 03/17/22 Water/Wastewater Project Engineer Relationship Specialty Start Date End Date Vivien Foreman MD [address] [place] [address] PCP - General Family Medicine 12/16/20 Radha Hughes CNP [address] [place] [address] Nurse Practitioner Nurse Practitioner 02/22/22 Preston Healy MD [address] [place] [address] Consulting Physician Cardiovascular Disease 02/22/22 Adilson Stone MD [address] [place] [address] Cardiology 02/22/22 Hola Arroyo Jr., DPM [address] [place] [address] Podiatry 02/22/22 Sanju Bill III, DO [address] [place] [address] Consulting Physician Vascular Surgery 03/17/22 Water/Wastewater Project Engineer Relationship Specialty Start Date End Date Vivien Foreman MD [facility] [address] [address] PCP - General Family Medicine 12/16/20 Radha Hughes, JOHN [facility] [address] [address] Nurse Practitioner Nurse Practitioner 02/22/22 Preston Healy MD [address] [place] [address] Consulting Physician Cardiovascular Disease 02/22/22 Adilson Stone MD [address] [place] [address] Cardiology 02/22/22 Hola Arroyo Jr., SAMIR [address] [place] [address] Podiatry 02/22/22 Sanju Bill III, DO [address] [place] [address] Consulting Physician Vascular Surgery 03/17/22 Water/Wastewater Project Engineer Relationship Specialty Start Date End Date Vivien Foreman MD [address] [address] PCP - General Family Medicine 12/16/20 Radha Hughes CNP [facility] [address] [address] Nurse Practitioner Nurse Practitioner 02/22/22 Preston Healy MD [address] [place] [address] Consulting Physician Cardiovascular Disease 02/22/22 Adilson Stone MD [address] [place] [address] Cardiology 02/22/22 Hola Arroyo Jr., DPM [address] [place] [address] Podiatry 02/22/22 Sanju Bill III, DO [address] [place] [address] Consulting Physician Vascular Surgery 03/17/22 Water/Wastewater Project Engineer Relationship Specialty Start Date End Date Vivien Foreman MD [facility] [address] [address] PCP - General Family Medicine 12/16/20 Radha Hughes CNP [facility] [address] [address] Nurse Practitioner Nurse Practitioner 02/22/22 Preston Healy MD 335 [facility] [place] [address] Consulting Physician Cardiovascular Disease 02/22/22 Adilson Stone MD 335 [facility] [place] [address] Cardiology 02/22/22 Hola Arroyo Jr., DPM [address] [place] [address] Podiatry 02/22/22 Sanju Bill III, DO [address] [place] [address] Consulting Physician Vascular Surgery 03/17/22 Water/Wastewater Project Engineer Relationship Specialty Start Date End Date Vivien Foreman MD [address] [place] [address] PCP - General Family Medicine 12/16/20 Radha Hughes CNP [facility] [address] [address] Nurse Practitioner Nurse Practitioner 02/22/22 Preston Healy MD [address] [facility] [place] [address] Consulting Physician Cardiovascular Disease 02/22/22 Adilson Stone MD [address] [place] [address] Cardiology 02/22/22 Hola Arroyo Jr. DPOlegario [address] [place] [address] Podiatry 02/22/22 Sanju Bill III, DO [address] [place] [address] Consulting Physician Vascular Surgery 03/17/22 Water/Wastewater Project Engineer Relationship Specialty Start Date End Date Vivien Foreman MD [facility] [address] [address] PCP - General Family Medicine 12/16/20 Radha Hughes CNP [facility] [address] [address] Nurse Practitioner Nurse Practitioner 02/22/22 Preston Healy MD [address] [place] [address] Consulting Physician Cardiovascular Disease 02/22/22 Adilson Stone MD [address] [place] [address] Cardiology 02/22/22 Hola Arroyo Jr., DPM [address] [place] [address] Podiatry 02/22/22 Sanju Bill III, DO [address] [place] [address] Consulting Physician Vascular Surgery 03/17/22 Water/Wastewater Project Engineer Relationship Specialty Start Date End Date Vivien Foreman MD [facility] [address] PCP - General Family Medicine 12/16/20 Radha Hughes CNP [address] [place] [id number] Nurse Practitioner Nurse Practitioner 02/22/22 Preston Healy MD [address] [place] [address] Consulting Physician Cardiovascular Disease 02/22/22 Adilson Stone MD [address] [place] [address] Cardiology 02/22/22 Hola Arroyo Jr., SAMIR [address] [place] [address] Podiatry 02/22/22 Sanju Bill III, DO [address] [place] [address] Consulting Physician Vascular Surgery 03/17/22 Water/Waste[employer] Project Engineer Relationship Specialty Start Date End Date Vivien Foreman MD [facility] [address] [address] PCP - General Family Medicine 12/16/20 Radha Hughes CNP [address] [place] [address] Nurse Practitioner Nurse Practitioner 02/22/22 Preston Healy MD [address] [facility] [place] [address] Consulting Physician Cardiovascular Disease 02/22/22 Adilson Stone MD [address] [facility] [place] [address] Cardiology 02/22/22 Hola Arroyo Jr., DPM [address] [place] [id number] Podiatry 02/22/22 Sanju Bill III, DO [address] [place] [address] Consulting Physician Vascular Surgery 03/17/22 Water/Wastewater Project Engineer Relationship Specialty Start Date End Date Vivien Foreman MD [address] [address] PCP - General Family Medicine 12/16/20 Radha Hughes CNP [address] [address] Nurse Practitioner Nurse Practitioner 02/22/22 Preston Healy MD 335 [facility] [place] [address] Consulting Physician Cardiovascular Disease 02/22/22 Adilson Stone MD [address] [place] [address] Cardiology 02/22/22 Hola Arroyo Jr., SAMIR [address] [place] [address] Podiatry 02/22/22 Sanju Bill III, DO [address] [place] [address] Consulting Physician Vascular Surgery 03/17/22 Water/Wastewater Project Engineer Relationship Specialty Start Date End Date Vivien Foreman MD [address] [address] PCP - General Family Medicine 12/16/20 Radha Hughes CNP [address] [address] Nurse Practitioner Nurse Practitioner 02/22/22 Preston Healy MD [address] [facility] [place] [address] Consulting Physician Cardiovascular Disease 02/22/22 Adilson Stone MD [address] [facility] [place] [address] Cardiology 02/22/22 Hola Arroyo Jr., DPM [address] [place] [address] Podiatry 02/22/22 Sanju Bill III, DO [address] [place] [address] Consulting Physician Vascular Surgery 03/17/22 Team Status: [...] RN)[id number] (Held by provider - Provider: Kelly Burtno MD - Reason: Other) 0900 (Automatically Held [...] Jaclyn Ramos RN)1722 (New Bag - Provider: Jcalyn Ramos RN)[id number] (New Bag - Provider: Chhaya [...] Venegas RN)2200 (Not Given - Provider: Jonathon Corrigan RN - Reason: Other - Comment: iv [...] BE BASED ON THE PRIMARY CLINICAL RECORDS. [facility]. provides no warranty or guarantee of the accuracy or completeness of information in this document.
--- NOTE | 2025-02-24 17:33 | PCA ---
THIS US RECEIVED UPDATE THAT PT IS ACCEPTED PER DR NATH, INTERNAL MEDICINE, AT [facility] WILL CALL WITH BED ASSIGNMENT.
--- NOTE | 2025-02-24 18:57 | PCA ---
PT ACCEPTED AT [facility] RM [address] NATH N2N [phone]
--- NOTE | 2025-02-24 19:17 | PCA ---
called for local squad at 1900, given a 5 hr eta. asked dispatch to try and outsource, waiting a call back.
--- NOTE | 2025-02-24 19:59 | ED.RN ---
Per dr. vila to give night dose of lantus, tylenol,atorvastatin, lexapro and protonix. Do NOT give eliquis d/t transfer.
[2025-02-24] MEDS: Insulin Glargine-YFGN 100 UNIT/ML Pen 20 UNIT SC (20:22)
[2025-02-24 20:27] LABS: Hematocrit 26.6 % (40-54); Hemoglobin 8.3 g/dL (13.0-16.5); Immature Granulocytes Count 0.020 X10^3/uL (0.0-0.0); Mean Corp Hgb Conc 31.2 g/dL (32-36); Mean Corpuscular Volume 84.7 fL (80-94); Mean Platelet Vol. 8.7 fl (6.2-12.0); NRBC Flagged by Analyzer 0 % (0-5); POSITIVE MORPHOLOGY YES; Platelet Count 173 K/mm3 (150-450); RBC Distribution Width CV 15.6 % (11.6-14.6); RBC Distribution Width SD 47.3 fl (35.1-43.9); Red Blood Count 3.14 M/mm3 (4.6-6.2); White Blood Count 4.9 K/mm3 (4.4-11.0)
[2025-02-24 20:35] LABS: Prothrombin Time (Protime)PT. 18.6 SECONDS (11.7-14.9)
[2025-02-24 20:36] LABS: Partial Thromboplast Time 31.5 Seconds (24.1-36.2)
[2025-02-24 20:37] LABS: Anisocytosis 1+; Differential Indicated SCAN CRITERIA MET; Hypochromasia 1+
[2025-02-24 20:53] LABS: Anion Gap 10 (5-15); BUN 19 mg/dL (4-19); BUN/Creat Ratio 22.3 RATIO (10-20); Calcium,Total 8.2 mg/dL (7.6-11.0); Carbon Dioxide 24.9 mmol/L (21.0-32.0); Chloride 101 mmol/L (98-108); Estimated Creatinine Clearance 76.34 ml/min (50-250); Glucose 246 mg/dL (70-99); Potassium 3.8 mmol/L (3.3-5.1)
== END 2025-02-24 23:35 | disposition short-term general hospital (02) ==
LOC: ED 14:29
PROVIDERS: Emergency Medicine; Emergency Provider Student in an Organized Health Care Education/Training Program; PCP Family Medicine; Visit Provider Student in an Organized Health Care Education/Training Program
DX: E11.69 Type 2 diabetes mellitus with other specified complication (principal); M86.9 Osteomyelitis, unspecified; I11.0 Hypertensive heart disease with heart failure; I50.33 Acute on chronic diastolic (congestive) heart failure; I48.91 Unspecified atrial fibrillation; Z79.4 Long term (current) use of insulin; I25.10 Atherosclerotic heart disease of native coronary artery without angina pectoris; F17.220 Nicotine dependence, chewing tobacco, uncomplicated; Z95.1 Presence of aortocoronary bypass graft; Z79.01 Long term (current) use of anticoagulants; Z79.82 Long term (current) use of aspirin; Z79.899 Other long term (current) drug therapy
CPT/HCPCS: 36592; 80048; 82962; 85025; 85610; 85730; 96372; 99284; A4216

== ENCOUNTER → 2025-02-24 | Outpatient (CLI) | payer MEDICARE, OTHER, SELFPAY ==
--- OUTSIDE RECORDS SUMMARY | 2025-02-24 11:38 | XMS RPT_ITS | CCD ---
Author Organization [facility] Care Team Providers Care Sheet Metal Duct Installer Name Role Phone Dieter Bernal Unavailable [phone] Unavailable Unavailable Unavailable Preston Healy Unavailable Unavailable Preston Healy Unavailable Unavailable Dieter Bernal Primary Care Provider DIETER BERNAL Primary Care Unavailable BETY BARROS Attending Unavailable REMY RICH Referring Unavailable DIETER BERNAL Primary Care Unavailable NILSA LANGE PA-C Attending Unavail able REMY RICH Referring Unavailable JENARO OQUENDO Admitting Unavail able JENARO OQUENDO Referring Unavail able DIETER BERNAL Primary Care Unavailable JENARO OQUENDO Admitting Unavail able JENARO OQUENDO Attending Unavail able DIETER BERNAL Primary Care Unavailable DIETER BERNAL Primary Care Unavailable JENARO OQUENDO Admitting Unavail able DIETER BERNAL Primary Care Unavailable Dieter Bernal Primary Care Provider Corina OWEN, Vivien Cantuunember Primary Care Pro vider Vivien Foreman MDunember Primary Care Pro vider Vivien Foreman MDir Unavailable Vivien Foreman MDir Unavailable Vivien Foreman MD Primary Care Pro vider Saul LOPEZ, Radha Edward Unavailable Preston Healy MD Unavailable Adilson Stone MD Unavailable Cruz Montana DPM, Hola Unavailable Fly COELHO DO, W. Don Unavailable Corina OWEN, Vivien Ybarra Primary Care Pro vider Hughes JOHN, Radha Edward Unavailable Preston Healy MD Unavailable Adilson Stone MD Unavailable Cruz Montana DPM, Hola Unavailable Fly COELHO DO, W. Don Unavailable Vivien Foreman MD Unavailable Vivien Foreman MD Unavailable Pernell RN, Hayley R Unavailable Unav ailable Saul LOPEZ, Radha Castellanosward Unavailable Sung OWEN, Dieter Rosa Primary Care Provider Saul LOPEZ, Radha Edward Unavailable Rich KEATING, [facility] Unavailable Unavailable Cruz Montana DPM, Hola Unavailable Preston Healy MD Unavailable Adilson Stone MD Unavailable Fly COELHO DO, W. Don Unavailable VIVIEN FOREMAN Primary Care Rylee vailable AMANDA JOHNSON Admitting Unavailable AMANDA JOHNSON Referring Unavailable VIVIEN FOREMAN Primary Care Rylee vailable LILIYA FINE Admitting Unavailabl e LILIYA FINE Referring Unavailabl e AMANDA JOHNSON Attending Unavailable CORINA, VIVIEN KARTIK MOUNIR Primary Care Rylee vailable LILIYA FINE Attending Unavailabl e CORINA, VIVIEN KARTIK MOUNIR Primary Care Rylee vailable PRESTON HEALY Attending Unavailabl e CORINA, VIVIEN KARTIK MOUNIR Attending Rylee vailable CORINA, VIVIEN KARTIK MOUNIR Primary Care Rylee vailable CRUZ JR., HOLA Attending Unavailable CORINA, VIVIEN KARTIK MOUNIR Primary Care Rylee vailable RADHA HUGHES Attending Unavailab le CORINA, VIVIEN KARTIK MOUNIR Primary Care Rylee vailable Sanju BILL III Attending Unavailable CORINA, VIVIEN KARTIK MOUNIR Primary Care Rylee vailable CRUZ RHODES., HOLA Attending Unavailable CORINA, VIVIEN KARTIK MOUNIR Primary Care Rylee vailable CORINA, VIVIEN KARTIK MOUNIR Primary Care Rylee vailable BRADLEY MOORE Attending Unavailable CORINA, VIVIEN KARTIK MOUNIR Primary Care Rylee vailable LILIYA FINE Attending Unavailabl e CRUZ JR., HOLA Attending Unavailable CORINA, VIVIEN KARTIK MOUNIR Primary Care Rylee vailable SHARON ARREOLA Attending Unava ilable CORINA, VIVIEN KARTIK MOUNIR Primary Care Rylee vailable CORINA, VIVIEN KARTIK MOUNIR Attending Rylee vailable CORINA, VIVIEN KARTIK MOUNIR Primary Care Rylee vailable CORINA, VIVIEN KARTIK MOUNIR Primary Care Rylee vailable RADHA HUGHES Attending Unavailab janet Foreman MD, Vivien Kartik Mounir Primary Care Pro vider Radha Hughes CNP Unavailable [phone] Preston Healy MD Unavailable Adilson Stone MD Unavailable Cruz Montana, DPM, Hola Unavailable Fly COELHO DO WLaquita Don Unavailable [phone] Shon OWEN, Dr. Gaetano Farias Admit Provider Shon OWEN, Dr. Gaetano Farias Attending Provider Claudio OWEN, Dr. Zaragoza Other Provider CORINA OWEN, VIVIEN Primary Care Provider [phone] VIVIEN FOREMAN MD Referring Provider Friend Dr. Kali TAYLOR Attending Provider Friend Dr. Kali TAYLOR Other Provider CORINA, VIVIEN KARTIK MOUNIR Primary Care Rylee vailable JENARO MARTIN Attending Unavailable CORINA, VIVIEN KARTIK MOUNIR Primary Care Rylee vailable JENARO MARTIN Attending Unavailable CORINA, VIVIEN KARTIK MOUNIR Primary Care Rylee vailable VALENTÍN CRUMP Attending Unavailable OREN MIRELES Admitting Unavailabl LUIS A Costello Attending Unavailable LUIS A GAYLE Referring Unavailable CORINA, VIVIEN KARTIK MOUNIR Primary Care Rylee vailable CORINA, VIVIEN KARTIK MOUNIR Primary Care Rylee vailable CRASKE III, W. DON Attending Unavailable CRASKE III, W. DON Referring Unavailable CORINA, VIVIEN KARTIK MOUNIR Primary Care Rylee vailable ANITA ROGERS Consulting Unava ilKELLY Blair Attending Unavailable OREN MIRELES Admitting Unavailabl e NEETU PINTO Consulting Unavailable CORINA, VIVIEN Referring Unavailable CORINA, VIVIEN Primary Care Unavailable Kali Gar Attending Unavailable Kali Gar Consulting Unavailable CORINA, VIVIEN Referring Unavailable CORINA, VIVIEN Primary Care Unavailable Kali Gar Attending Unavailable Nik Snyder Consulting Unavailable CORINA, VIVIEN Primary Care Unavailable Gaetano Menendez Chi Attending Unavailable Gaetano Menendez Chi Admitting Unavailable Allergies Allergy Classification Reported Allergen(s) Allergy Type Date of Onset Reaction(s) Facility Thiazolidinediones (glitazones) (9 sources) pioglitazone Drug Allergy GI Intolerance [facility] (20 sources) pioglitazone; 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: [Unknown] Propensity to adverse reactions to drug 02-10-20 GI Intolerance [facility] Comment on above: GI irritation (1 source) pioglitazone Drug Allergy 02-10-20 [facility] Repository Medications Current Medications Medication Drug Class(es) Dates Sig (Normalized) Sig (Original) acetaminophen 500 mg oral capsule (20 sources) Start: 02-18-2025 take 2 capsules by mouth every eight hours Acetaminophen 500 mg capsule Active 1000 mg PO EVERY 8 HOURS February 18, 2025 12:00am take 2 tablets by mo uth every six hours as needed for pain acetaminophen (TYLENOL) 325 MG tablet Ta ke 2 (two) tablets (650 mg total) by mouth every 6 (six) hours as needed for pain (1-2 tablets) . Active apixaban 5 mg oral tablet (20 sources) Factor Xa Inhibitor Start: 03-08-2022 End: 02-09-2025 take 1 tablet by mouth twice daily apixaban (Eliquis) 5 mg Tab Take 1 (one) tablet (5 mg total) by mouth 2 (two) times a day . 180 tablet 3 10/19/2024 Active Start: 10-08-2021 End: 03-04-2022 take 1 tablet by mouth twice daily apixaban (ELIQUIS) 5 mg Tab Take 1 (one) tablet (5 mg total) by mouth 2 (two) times a day . 60 tablet 3 10/08/2021 03/04/2022 Discontinued (Reorder) Start: 01-09-2021 End: 01-09-2021 take 1 tablet by mouth twice daily apixaban (ELIQUIS) 5 mg Tab Take 1 (one) tablet (5 mg total) by mouth 2 (two) times a day . 180 tablet 3 01/09/2021 Active ascorbic acid 500 mg oral capsule (20 sources) Start: 02-09-2025 take 1 capsule by mouth every other day Ascorbic Acid (Vitamin C) 500 mg capsule Active 500 mg PO .every other day February 09, 2025 12:00am supplement take 1 capsule by mouth every ot her day ascorbic Acid (VITAMIN C) 500 mg CpER Take 1 (one) capsule (500 mg total) by mouth every other day . Active take 500 mg by mouth once daily ascorbic Acid (VITAMIN C) 500 mg CpER Take 500 mg by mouth daily. Active aspirin 81 mg oral tablet (20 sources) Nonsteroidal Anti-inflammatory Drug Start: 02-09-2025 take 1 tablet by mouth once daily Aspirin 81 mg tablet Active 81 mg PO DAILY February 09, 2025 12:00am heart Start: 09-29-2015 End: 02-09-2025 take 1 tablet by mouth once daily aspirin 81 MG EC tablet Indications: Coronary artery disease involving [place] coronary artery of [place] heart without angina pectoris Take 1 tablet (81 mg total) by mouth daily. 90 tablet 3 09/29/2015 Active atorvastatin 20 mg oral tablet (1 source) HMG-CoA Reductase Inhibitor Start: 02-18-2025 take 1 tablet by mouth at bedtime Atorvastatin (Lipitor) 20 mg tablet Active 20 mg PO AT BEDTIME February 18, 2025 12:00am bisacodyl 10 mg rectal suppository (2 sources) Stimulant Laxative Start: 02-18-2025 Bisacodyl 10 mg suppository Active 10 mg RC DAILY as needed for constipation February 18, 2025 12:00am End: 12-15-2015 take 10 mg rectal route once daily as needed for constipation bisacodyl (DULCOLAX) 10 mg suppository Insert 10 mg into the rectum daily as needed for constipation. 0 12/15/2015 Discontinued (Therapy completed) blood sugar diagnostic (gluc ose blood) strips (6 sources) Start: 01-05-2016 blood sugar di agnostic (glucose blood) strips Dx code E11.9 use to check BG 4x daily. 150 strip 11 01/05/2016 Active blood sugar diagnostic (RELI ON PRIME TEST STRIPS) strips (6 sources) Start: 01-05-2016 blood sugar di agnostic (RELION PRIME TEST STRIPS) strips E11.65 Use as directed 4 times per day. 150 strip 11 01/05/2016 Active Blood Sugar Diagnostic Strip s (4 sources) Start: 01-05-2016 blood sugar di agnostic (RELION PRIME TEST STRIPS) strips E11.65 Use as directed 4 times per day. 150 strip 01/05/2016 Active Start: 01-05-2016 blood sugar di agnostic (glucose blood) strips Dx code E11.9 use to check BG 4x daily. 150 strip 11 01/05/2016 Active bumetanide 1 mg oral tablet (20 sources) Loop Diuretic Start: 02-09-2025 take 1 tablet by mouth every other day Bumetanide 1 mg tablet Active 0.5 mg PO EVERY OTHER DAY February 09, 2025 12:00am diuretic Start: 01-29-2025 End: 01-31-2025 Start: 08-09-2023 End: 06-12-2025 take 0.5 tablet by mouth every other day bumetanide (BUMEX) 1 MG tablet Indications: Essential hypertension Take 0.5 (one-half) tablet (0.5 mg total) by mouth every other day . 23 tablet 1 12/14/2024 06/12/2025 Active Start: 08-27-2022 End: 08-06-2023 take 0.5 tablet by mouth every other day bumetanide (BUMEX) 1 MG tablet Indications: Essential hypertension Take 0.5 (one-half) tablet (0.5 mg total) by mouth every other day . 45 tablet 0 01/21/2023 08/06/2023 Discontinued (Reorder (Suppress CancelRx Message to Pharmacy)) Start: 03-23-2022 End: 08-27-2022 take 0.5 tablet by mouth once daily bumetanide (BUMEX) 1 MG tablet Indications: Essential hypertension Take 1/2 (one-half) tablet by mouth once daily 45 tablet 3 03/23/2022 08/27/2022 Discontinued Start: 12-25-2021 End: 01-24-2022 take 0.5 tablet by mouth every other day bumetanide (BUMEX) 1 MG tablet Indications: Essential hypertension Take 0.5 (one-half) tablet (0.5 mg total) by mouth every other day . 8 tablet 0 12/25/2021 Active Start: 01-09-2021 take 0.5 tablet by m outh once daily bumetanide (BUMEX) 1 MG tablet Indications: Essential hypertension Take 0.5 (one-half) tablet (0.5 mg total) by mouth daily . 45 tablet 3 01/09/2021 Active Start: 04-22-2020 End: 01-09-2021 take 0.5 tablet by mouth every other day bumetanide (BUMEX) 1 MG tablet Indications: Essential hypertension TAKE 1/2 (ONE-HALF) TABLET BY MOUTH EVERY OTHER DAY 45 tablet 3 04/22/2020 01/09/2021 Discontinued (Reorder (Suppress CancelRx Message to Pharmacy)) Start: 10-08-2016 End: 04-06-2019 take 0.5 tablet by mouth every other day bumetanide (BUMEX) 1 MG tablet Indications: Essential hypertension Take 0.5 tablets (0.5 mg total) by mouth every other day. 45 tablet 3 10/08/2016 04/06/2019 Discontinued (Reorder (Suppress CancelRx Message to Pharmacy)) Start: 10-08-2015 End: 04-16-2016 take 1 tablet by mouth once daily bumetanide (BUMEX) 2 MG tablet Indications: S/P AVR (aortic valve replacement) , Essential hypertension Take 1 tablet (2 mg total) by mouth daily. 90 tablet 3 10/08/2015 04/16/2016 Discontinued (Therapy completed) docusate sodium 100 mg oral capsule (20 sources) Start: 02-09-2025 take 1 capsule by mouth twice daily Docusate Sodium 100 mg capsule Active 100 mg PO TWICE A DAY February 09, 2025 12:00am bowel take 1 capsule by mouth once colette ly docusate sodium (COLACE) 100 MG capsule Take 100 mg by mouth daily. 0 Active docusate sodium 50 mg / sennosides, prison 8.6 mg oral tablet (6 sources) Start: 02-09-2025 End: 02-19-2025 take 1 tablet by mouth twice daily senna-docusate (SENNA-S) 8.6-50 mg Take 1 (one) tablet by mouth 2 (two) times a day for 10 days . 20 tablet 02/09/2025 02/19/2025 Active Start: 01-29-2025 End: 02-19-2025 0.5 ml dulaglutide 3 mg/ml auto-injector (17 sources) GLP-1 Receptor Agonist Start: 03-02-2021 End: 10-12-2021 inject 0.5 mL by subcutaneous injection every week dulaglutide (Trulicity) 1.5 mg/0.5 mL Pen Inject 0.5 mL (1.5 mg total) under the skin once a week . 2.5 mL 11 03/02/2021 10/12/2021 Discontinued Start: 01-05-2021 End: 08-23-2021 inject 0.5 mL by subcutaneous injection every week dulaglutide (Trulicity) 0.75 mg/0.5 mL Pen Inject 0.5 mL (0.75 mg total) under the skin once a week . 7.5 mL 3 01/05/2021 03/02/2021 Discontinued escitalopram 10 mg oral tablet (20 sources) Serotonin Reuptake Inhibitor Start: 11-29-2023 End: 12-14-2025 take 1 tablet by mouth once daily escitalopram oxalate (LEXAPRO) 10 MG tablet Indications: Mild major depression Take 1 (one) tablet (10 mg total) by mouth nightly . 30 tablet 11 12/14/2024 12/14/2025 Active Start: 06-14-2022 End: 06-23-2024 take 1 tablet by mouth once daily escitalopram oxalate (LEXAPRO) 5 MG tablet Indications: Mild major depression (HCC) Take 1 (one) tablet (5 mg total) by mouth daily . 30 tablet 11 06/24/2023 11/29/2023 Discontinued flash glucose sensor (FreeStyle Johnny 2 Sensor) Kit (20 sources) Start: 10-12-2021 flash glucose sensor (FreeStyle Johnny 2 Sensor) Kit Indications: Type 2 diabetes mellitus with retinopathy of both eyes, with long-term current use of insulin, macular edema presence unspecified, unspecified retinopathy severity (HCC) 1 kit by Miscellaneous route every 14 (fourteen) days Use as directed to apply new sensor . 2 kit 11 10/12/2021 Suspended Start: 10-12-2021 flash glucose sensor (FreeStyle Johnny 2 Sensor) Kit Indications: Type 2 diabetes mellitus with retinopathy of both eyes, with long-term current use of insulin, macular edema presence unspecified, unspecified retinopathy severity (HCC) 1 kit by Miscellaneous route every 14 (fourteen) days Use as directed to apply new sensor . 2 kit 11 10/12/2021 Active fluconazole 200 mg oral tablet (7 sources) Azole Antifungal Start: 02-09-2025 End: 02-20-2025 take 1 tablet by mouth once daily fluconazole (DIFLUCAN) 200 MG tablet Take 1 (one) tablet (200 mg total) by mouth daily for 10 days Start: 02/10/25. 10 tablet 02/10/2025 02/20/2025 Active Start: 02-08-2025 End: 02-09-2025 Start: 02-07-2025 End: 02-07-2025 insulin glargine 100 unt/ml injectable solution (20 sources) Insulin Analogue Start: 02-09-2025 End: 03-11-2025 inject 5 [IU] by subcutaneous injection once daily insulin glargine (Lantus U-100 Insulin) 100 unit/mL injection Inject 5 (five) Units under the skin nightly . 1.5 mL 02/09/2025 03/11/2025 Active Start: 12-09-2023 End: 09-07-2025 inject 25 [IU] by subcutaneous injection once daily insulin glargine (Lantus U-100 Insulin) 100 unit/mL injection Inject 25 (twenty five) Units under the skin nightly . 10 mL 11 09/07/2024 09/07/2025 Suspended Start: 09-23-2023 End: 12-09-2023 Lantus Solostar U-100 Insuli n 100 unit/mL (3 mL) InPn Inject 30 (thirty) Units under the skin nightly . 45 mL 3 09/23/2023 12/09/2023 Discontinued Start: 08-08-2023 inject 30 [IU] by armijo bcutaneous injection every week insulin glargine U-300 conc (Toujeo SoloStar U-300 Insulin) 300 unit/mL (1.5 mL) Inject 30 (thirty) Units under the skin once a week . 9 mL 11 08/08/2023 Active Start: 01-05-2021 End: 08-08-2023 inject 28 [IU] by subcutaneous injection once daily insulin glargine (Lantus U-100 Insulin) 100 unit/mL injection Inject 28 (twenty eight) Units under the skin nightly . 30 mL 3 02/10/2023 08/08/2023 Discontinued Start: 01-29-2019 End: 01-05-2021 insulin glargine (LANTUS U-1 00 INSULIN) 100 unit/mL injection Use as directed approx 30 u per day total. . 20 mL 3 01/29/2019 03/01/2019 Discontinued (Reorder (Suppress CancelRx Message to Pharmacy)) Start: 11-07-2017 End: 01-29-2019 inject 30 [IU] by subcutaneous injection once daily insulin glargine (LANTUS U-100 INSULIN) 100 unit/mL injection Inject 30 (thirty) Units under the skin nightly. 40 mL 3 11/07/2017 01/29/2019 Discontinued (Reorder (Suppress CancelRx Message to Pharmacy)) Start: 11-07-2017 End: 11-07-2018 insulin glargine (LANTUS U-1 00 INSULIN) 100 unit/mL injection Inject 30 (thirty) Units under the skin nightly. 40 mL 3 11/07/2017 11/07/2018 Active Start: 05-11-2017 End: 11-07-2017 insulin glargine (LANTUS) 10 0 unit/mL (3 mL) InPn Indications: type 2 diabetes mellitus Inject 30 (thirty) Units under the skin nightly Reasons: type 2 diabetes mellitus. 10 mL 11 05/11/2017 11/07/2017 Discontinued End: 05-10-2017 insulin glargine (LANTUS) 10 0 unit/mL (3 mL) InPn Indications: type 2 diabetes mellitus Inject 30 Units under the skin nightly ReasonsType 2 Diabetes Mellitus. 0 05/10/2017 Discontinued (Reorder (Suppress CancelRx Message to Pharmacy)) insulin glargine (LANTUS) 100 unit/mL (3 mL) InPn Indications: type 2 diabetes mellitus Inject 30 Units under the skin nightly ReasonsType 2 Diabetes Mellitus. Active Insulin Glargine (Lantus U-100 Insulin) 100 unit/mL solution (1 source) Start: 02-09-2025 Insulin Glargi ne (Lantus U-100 Insulin) 100 unit/mL solution Active 20 U SC AT BEDTIME February 09, 2025 12:00am diabetes insulin lispro 100 unt/ml injectable solution (20 sources) Insulin Analogue Start: 02-18-2025 Insulin Lispr o 100 unit/mL solution Active 7 U SC THREE TIMES A DAY February 18, 2025 12:00am Start: 12-09-2023 End: 02-09-2025 Start: 12-09-2023 insulin lispro (AdmeLOG,HumaLOG) 100 unit/mL injection Inject 6 (six) Units to 12 (twelve) Units under the skin 3 (three) times a day before meals . 20 mL 11 12/09/2023 Suspended Start: 09-12-2023 End: 12-09-2023 insulin lispro (AdmeLOG,Elis LOG) 100 unit/mL injection USE DIRECTED, APPROXIMATELY 30 UNITS A DAY. . 30 mL 3 09/12/2023 12/09/2023 Discontinued (Reorder (Suppress CancelRx Message to Pharmacy)) Start: 08-08-2023 End: 12-09-2023 insulin lispro-aabc (Lyumjev KwikPen U-100 Insulin) 100 unit/mL InPn Inject 10 (ten) Units to 12 (twelve) Units under the skin 3 (three) times a day . 15 mL 11 08/08/2023 12/09/2023 Discontinued Start: 01-05-2021 End: 02-09-2023 insulin lispro (AdmeLOG,Elis LOG) 100 unit/mL injection USE DIRECTED, APPROXIMATELY 30 UNITS A DAY. . 30 mL 3 02/10/2023 Active Start: 02-28-2020 End: 01-05-2021 insulin lispro (HumaLOG) 100 unit/mL injection USE DIRECTED, APPROXIMATELY 20 UNITS A DAY. . 30 mL 3 05/12/2020 01/05/2021 Discontinued (Reorder (Suppress CancelRx Message to Pharmacy)) Start: 12-08-2016 End: 11-07-2017 insulin lispro (HumaLOG U-10 0 Insulin) 100 unit/mL injection Use as directed 36 units daily.. 60 mL 3 11/07/2017 Active Start: 12-07-2016 End: 02-28-2020 insulin lispro (HumaLOG) 100 unit/mL injection Use as directed (approx 40 units/day). 40 mL 3 12/07/2016 10/30/2018 Discontinued (Reorder (Suppress CancelRx Message to Pharmacy)) Start: 10-09-2015 End: 12-04-2016 insulin lispro (HumaLOG) 100 unit/mL injection Use as directed (approx 40 units/day). 40 mL 3 10/09/2015 12/04/2016 Discontinued (Reorder (Suppress CancelRx Message to Pharmacy)) Insulin Syringe-Needle U-100 0.3 Ml 31 Gauge X 5/16 (2 sources) Start: 09-26-2015 insulin syringe-needle U-100 0.3 mL 31 x 5/16 Syrg Use as directed QID. 400 each 3 09/26/2015 Active Lancets (2 sources) Start: 09-23-2015 lancets Misc Use to check BG QID SolusV2 brand Dx E11.65. 200 each 09/23/2015 Active lancets Misc (6 sources) Start: 09-23-2015 lancets Misc Use to check BG QID SolusV2 brand Dx E11.65. 200 each 09/23/2015 Active lisinopril 5 mg oral tablet (20 sources) Angiotensin Converting Enzyme Inhibitor Start: 10-19-2024 End: 10-19-2025 take 1 tablet by mouth once daily lisinopriL (PRINIVIL,ZESTRIL) 5 MG tablet Indications: Essential hypertension Take 1 (one) tablet (5 mg total) by mouth daily . 90 tablet 3 10/19/2024 10/19/2025 Active Start: 11-11-2023 End: 09-07-2025 take 1 tablet by mouth once daily lisinopriL (PRINIVIL,ZESTRIL) 10 MG tablet Indications: Essential hypertension Take 1 (one) tablet (10 mg total) by mouth daily . 90 tablet 3 09/07/2024 10/19/2024 Discontinued (Reorder (Suppress CancelRx Message to Pharmacy)) Start: 12-14-2022 End: 01-21-2024 take 1 tablet by mouth once daily lisinopriL (PRINIVIL,ZESTRIL) 20 MG tablet Indications: Essential hypertension Take 1 (one) tablet (20 mg total) by mouth daily . 90 tablet 3 01/21/2023 11/11/2023 Discontinued (Reorder (Suppress CancelRx Message to Pharmacy)) Start: 12-16-2020 End: 12-10-2022 take 1 tablet by mouth once daily lisinopriL (PRINIVIL,ZESTRIL) 20 MG tablet Indications: Essential hypertension Take 1 (one) tablet (20 mg total) by mouth daily . 90 tablet 3 12/10/2021 12/10/2022 Discontinued (Reorder (Suppress CancelRx Message to Pharmacy)) Start: 12-01-2018 End: 12-16-2020 take 1 tablet by mouth once daily lisinopriL (PRINIVIL,ZESTRIL) 10 MG tablet Take 1 (one) tablet (10 mg total) by mouth daily . 90 tablet 3 10/26/2019 12/16/2020 Discontinued Start: 06-16-2018 End: 12-01-2018 take 1 tablet by mouth once daily lisinopril (PRINIVIL,ZESTRIL) 2.5 MG tablet Take 1 (one) tablet (2.5 mg total) by mouth daily . 90 tablet 3 06/16/2018 12/01/2018 Discontinued (Reorder (Suppress CancelRx Message to Pharmacy)) Start: 04-16-2016 End: 03-07-2018 take 1 tablet by mouth once daily, then take 1 tablet by mouth lisinopril (PRINIVIL,ZESTRIL) 5 MG tablet Take 1 (one) tablet (5 mg total) by mouth daily. 90 tablet 3 03/07/2017 03/07/2018 Active 24 hr metoprolol succinate 2 5 mg extended release oral tablet (20 sources) beta-Adrenergic Julia Start: 01-28-2025 End: 01-28-2025 Start: 08-09-2023 End: 02-09-2025 take 1 tablet by mouth once daily metoprolol succinate (TOPROL-XL) 25 MG 24 hr tablet Indications: Essential hypertension Take 1 (one) tablet (25 mg total) by mouth daily . 90 tablet 1 08/03/2024 Active Start: 08-27-2022 End: 08-06-2023 take 1 tablet by mouth once daily metoprolol succinate (TOPROL-XL) 25 MG 24 hr tablet Indications: Essential hypertension Take 1 (one) tablet (25 mg total) by mouth daily . 90 tablet 0 01/21/2023 08/06/2023 Discontinued (Reorder (Suppress CancelRx Message to Pharmacy)) Start: 12-22-2021 End: 08-27-2022 take 1 tablet by mouth twice daily metoprolol succinate (TOPROL-XL) 25 MG 24 hr tablet Take 1 (one) tablet (25 mg total) by mouth 2 (two) times a day . 180 tablet 3 12/22/2021 08/27/2022 Discontinued Start: 10-09-2018 End: 12-22-2021 take 1 tablet by mouth once daily metoprolol succinate (TOPROL-XL) 25 MG 24 hr tablet Take 1 (one) tablet (25 mg total) by mouth daily . 90 tablet 3 10/09/2018 07/26/2019 Discontinued (Reorder (Suppress CancelRx Message to Pharmacy)) Start: 10-13-2017 take 1 tablet by renzo th once daily metoprolol succinate (TOPROL-XL) 25 MG 24 hr tablet TAKE ONE TABLET BY MOUTH ONCE DAILY 90 tablet 3 10/13/2017 Active Start: 09-09-2016 End: 09-09-2017 take 1 tablet by mouth once daily metoprolol succinate (TOPROL-XL) 25 MG 24 hr tablet Take 1 tablet (25 mg total) by mouth daily. 90 tablet 3 09/09/2016 09/09/2017 Active Nystatin 150 million unit powder (1 source) Start: 02-18-2025 Nystatin 150 million unit powder Active U February 18, 2025 12:00am pantoprazole 40 mg delayed release oral tablet (8 sources) Proton Pump Inhibitor Start: 01-30-2025 End: 03-11-2025 take 1 tablet by mouth twice daily pantoprazole (PROTONIX) 40 MG tablet Take 1 (one) tablet (40 mg total) by mouth 2 (two) times a day . 60 tablet 02/09/2025 03/11/2025 Active Pen Needle, Diabetic 30 Gauge X 5/16 (2 sources) Start: 09-23-2015 pen needle, diabetic 30 gauge x 5/16 Ndle Use as directed TID. 300 each 3 09/23/2015 Active pen needle, diabetic 30 gauge x 5/16 Ndle (6 sources) Start: 09-23-2015 pen needle, diabetic 30 gauge x 5/16 Ndle Use as directed TID. 300 each 3 09/23/2015 Active potassium chloride 10 meq extended release oral tablet (20 sources) Start: 02-09-2025 take 1 tablet by mouth every other day Potassium Chloride 10 mEq tablet extended release Active 10 meq PO EVERY OTHER DAY February 09, 2025 12:00am supplement On Hold: MD Rico Start: 02-02-2025 Start: 02-01-2025 End: 02-01-2025 Start: 03-04-2023 End: 08-03-2025 take 1 tablet by mouth every other day potassium chloride SA (K-DUR,KLOR-CON M10) 10 MEQ tablet Take 1 (one) tablet (10 mEq total) by mouth every other day . 45 tablet 3 08/03/2024 08/03/2025 Active Start: 06-24-2019 End: 03-04-2023 take 1 tablet by mouth every other day potassium chloride 20 mEq TbER TAKE 1 TABLET BY MOUTH EVERY OTHER DAY 45 tablet 3 04/05/2022 03/04/2023 Discontinued Start: 06-16-2018 End: 06-16-2019 take 1 tablet by mouth every other day potassium chloride 20 mEq TbER Take 1 (one) tablet (20 mEq total) by mouth every other day . 45 tablet 3 06/16/2018 06/16/2019 Discontinued (Reorder (Suppress CancelRx Message to Pharmacy)) Start: 05-09-2017 End: 05-09-2017 take 1 tablet by mouth every other day potassium chloride 20 mEq TbER Take 1 (one) tablet (20 mEq total) by mouth every other day. 45 tablet 3 05/09/2017 Active Start: 09-29-2015 End: 11-05-2015 take 1 tablet by mouth once daily potassium chloride 20 mEq TbER Indications: S/P AVR (aortic valve replacement) Take 20 mEq by mouth daily. 30 tablet 0 09/29/2015 11/05/2015 Discontinued (Reorder (Suppress CancelRx Message to Pharmacy)) End: 05-09-2017 take 1 tablet by mouth every other day, then take 1 tablet by mouth potassium chloride SA (K-DUR,KLOR-CON) 20 MEQ tablet Take 20 mEq by mouth every other day. 05/09/2017 Discontinued predniSONE (4 sources) Start: 08-30-2019 predniSONE (DE LTASONE) 10 mg tablet pack See Admin Instructions . 0 08/30/2019 Active psyllium 520 mg oral capsule (20 sources) psyllium (METAMU CIL) 0.52 gram capsule Take 2 (two) capsules (1.04 g total) by mouth as needed . Active semaglutide (Ozempic) 0.25 mg or 0.5 mg (2 mg/3 mL) Pen (19 sources) Start: 08-26-2023 End: 12-09-2023 inject 0.5 mg by subcutaneous injection every week semaglutide (Ozempic) 0.25 mg or 0.5 mg (2 mg/3 mL) Pen Indications: Type 2 diabetes mellitus with retinopathy of both eyes, with long-term current use of insulin, macular edema presence unspecified, unspecified retinopathy severity (HCC) Inject 0.5 (one-half) mg under the skin once a week . 9 mL 3 08/26/2023 12/09/2023 Discontinued Start: 08-26-2023 End: 07-27-2024 inject 0.5 mg by subcutaneous injection every week semaglutide (Ozempic) 0.25 mg or 0.5 mg (2 mg/3 mL) Pen Indications: Type 2 diabetes mellitus with retinopathy of both eyes, with long-term current use of insulin, macular edema presence unspecified, unspecified retinopathy severity (HCC) Inject 0.5 (one-half) mg under the skin once a week . 9 mL 3 08/26/2023 07/27/2024 Active Start: 08-08-2023 End: 08-25-2023 inject 0.5 mg by subcutaneous injection every week semaglutide (Ozempic) 0.25 mg or 0.5 mg (2 mg/3 mL) Pen Inject 0.5 (one-half) mg under the skin once a week . 9 mL 3 08/08/2023 08/25/2023 Discontinued (Reorder (Suppress CancelRx Message to Pharmacy)) Start: 08-08-2023 End: 09-05-2023 inject 0.5 mg by subcutaneous injection every week semaglutide (Ozempic) 0.25 mg or 0.5 mg (2 mg/3 mL) Pen Inject 0.5 (one-half) mg under the skin once a week . 9 mL 3 08/08/2023 09/05/2023 Active Start: 06-06-2023 End: 08-08-2023 inject 0.25 mg by subcutaneous injection every week, then inject 0.5 mg by subcutaneous injection every week semaglutide (Ozempic) 0.25 mg or 0.5 mg (2 mg/3 mL) Pen Inject 0.25 (one-quarter) mg under the skin once a week for 28 days, THEN 0.5 (one-half) mg once a week. 9 mL 3 06/06/2023 08/08/2023 Discontinued (Reorder (Suppress CancelRx Message to Pharmacy)) Start: 06-06-2023 End: 07-03-2024 inject 0.25 mg by subcutaneous injection every week, then inject 0.5 mg by subcutaneous injection every week semaglutide (Ozempic) 0.25 mg or 0.5 mg (2 mg/3 mL) Pen Inject 0.25 (one-quarter) mg under the skin once a week for 28 days, THEN 0.5 (one-half) mg once a week. 9 mL 3 06/06/2023 07/03/2024 Active semaglutide (Ozempic) 1 mg/dose (4 mg/3 mL) Pen (20 sources) Start: 10-24-2024 inject 0.75 mL by subcutaneous injection every week semaglutide (Ozempic) 1 mg/dose (4 mg/3 mL) Pen Inject 0.75 mL (1 mg total) under the skin once a week . 9 mL 3 10/24/2024 Suspended Start: 10-24-2024 inject 0.75 mL by armijo bcutaneous injection every week semaglutide (Ozempic) 1 mg/dose (4 mg/3 mL) Pen Inject 0.75 mL (1 mg total) under the skin once a week . 9 mL 3 10/24/2024 Active Start: 12-09-2023 End: 10-24-2024 inject 0.75 mL by subcutaneous injection every week semaglutide (Ozempic) 1 mg/dose (4 mg/3 mL) Pen Inject 0.75 mL (1 mg total) under the skin once a week . 9 mL 3 12/09/2023 10/24/2024 Discontinued (Reorder (Suppress CancelRx Message to Pharmacy)) Start: 12-09-2023 inject 0.75 mL by armijo bcutaneous injection every week semaglutide (Ozempic) 1 mg/dose (4 mg/3 mL) Pen Inject 0.75 mL (1 mg total) under the skin once a week . 9 mL 3 12/09/2023 Active simvastatin 40 mg oral table t (20 sources) HMG-CoA Reductase Inhibitor Start: 12-14-2024 End: 12-14-2025 Start: 12-14-2022 End: 12-14-2025 take 1 tablet by mouth at bedtime simvastatin (ZOCOR) 40 MG tablet Indications: Hyperlipidemia, unspecified hyperlipidemia type Take 1 (one) tablet (40 mg total) by mouth at bedtime . 90 tablet 1 12/14/2024 12/14/2025 Active Start: 12-10-2021 End: 12-10-2022 take 1 tablet by mouth at bedtime simvastatin (ZOCOR) 40 MG tablet Indications: Hyperlipidemia, unspecified hyperlipidemia type Take 1 (one) tablet (40 mg total) by mouth at bedtime . 90 tablet 3 12/10/2021 12/10/2022 Discontinued (Reorder (Suppress CancelRx Message to Pharmacy)) Start: 07-28-2020 End: 01-09-2021 take 1 tablet by mouth at bedtime simvastatin (ZOCOR) 20 MG tablet Indications: Hyperlipidemia, unspecified hyperlipidemia type Take 1 (one) tablet (20 mg total) by mouth at bedtime . 90 tablet 1 07/28/2020 01/09/2021 Discontinued (Reorder (Suppress CancelRx Message to Pharmacy)) Start: 08-12-2017 End: 07-26-2020 take 1 tablet by mouth once daily simvastatin (ZOCOR) 20 MG tablet Indications: Hyperlipidemia, unspecified hyperlipidemia type TAKE ONE TABLET BY MOUTH ONCE NIGHTLY 90 tablet 3 06/29/2018 07/12/2019 Discontinued Start: 09-09-2016 take 1 tablet by mouth once si mvastatin (ZOCOR) 20 MG tablet Indications: Hyperlipidemia, unspecified hyperlipidemia type Take 1 tablet (20 mg total) by mouth nightly. 90 tablet 3 09/09/2016 Active Start: 09-29-2015 End: 07-21-2016 take 1 tablet by mouth once daily simvastatin (ZOCOR) 10 MG tablet Indications: HLD (hyperlipidemia) Take 1 tablet (10 mg total) by mouth nightly. 30 tablet 0 09/29/2015 07/21/2016 Discontinued (Reorder (Suppress CancelRx Message to Pharmacy)) tamsulosin hydrochloride 0.4 mg oral capsule (7 sources) alpha-Adrenergic Julia Start: 02-09-2025 End: 03-11-2025 take 1 capsule by mouth at dinner tamsulosin (FLOMAX) 0.4 mg capsule Take 1 (one) capsule (0.4 mg total) by mouth after evening meal . 30 capsule 02/09/2025 03/11/2025 Active Start: 02-07-2025 End: 03-11-2025 (2 sources) Start: 09-23-2015 (2 sources) Start: 01-05-2016 (2 sources) Start: 10-12-2021 (2 sources) Start: 12-10-2021 (2 sources) Start: 05-18-2024 (2 sources) Start: 10-24-2024 Completed/Discontinued Medications Medication Drug Class(es) Dates Sig (Normalized) Sig (Original) acetaminophen 300 mg / codeine phosphate 30 mg oral tablet (1 source) Opioid Agonist Start: 12-26-2018 End: 12-26-2018 acetaminophen-code ine (TYLENOL #3) 300-30 mg per tablet 1 tablet Start: 12-26-2018 End: 12-26-2018 acetaminophen-codeine (TYLEN OL #3) 300-30 mg per tablet 1 tablet acetaminophen 325 mg / oxyCO DONE hydrochloride 5 mg oral tablet (3 sources) Opioid Agonist Start: 01-26-2025 End: 02-09-2025 Start: 01-26-2025 End: 01-31-2025 oxyCODONE-acetaminophen (PER COCET) 5-325 mg per tablet Indications: Left wrist pain , Abscess of skin of left wrist Take 1 (one) tablet by mouth every 6 (six) hours as needed for pain (Days supply per fill: 5) . 20 tablet 01/26/2025 01/31/2025 Suspended 20 ml albumin human, prison 250 mg/ml injection (1 source) Human Serum Albumin Start: 01-28-2025 End: 01-29-2025 albuterol 0.833 mg/ml / ipratropium bromide 0.167 mg/ml inhalation solution (1 source) Anticholinergic, beta2-Adrenergic Agonist Start: 01-28-2025 End: 01-28-2025 amiodarone hydrochloride 200 mg oral tablet (1 source) Antiarrhythmic Start: 09-29-2015 End: 12-15-2015 take 1 tablet by mouth twice daily amiodarone (CORDARONE) 200 MG tablet Indications: prevention of recurrent atrial fibrillation Take 1 tablet (200 mg total) by mouth 2 (two) times a day ReasonsPrevention of Recurrent Atrial Fibrillation. 30 tablet 6 09/29/2015 12/15/2015 Discontinued (Therapy completed) calcium chloride 0.0014 meq/ml / potassium chloride 0.004 meq/ml / sodium chloride 0.103 meq/ml / sodium lactate 0.028 meq/ml injectable solution (2 sources) Start: 01-28-2025 End: 01-28-2025 Start: 12-26-2018 End: 12-26-2018 lactated Ringers infusion cefTRIAXone 2000 mg injection (7 sources) Cephalosporin Antibacterial Start: 02-09-2025 End: 02-09-2025 take 2000 mg intravenously every twenty-four hours Start: 02-06-2025 End: 02-27-2025 take 2000 mg intravenously every twenty-four hours cefTRIAXone IV (Outpatient Therapy) Indications: Bacteremia Infuse 2,000 (two thousand) mg into a venous catheter daily . Obtain labs for cbc,crp,esr and bmp weekly for 3 wks. Follow up with the [facility] weekly and clinic at [facility]. End: 02/27/25 42 each 02/06/2025 02/27/2025 Active cilostazol 100 mg oral tablet (20 sources) Phosphodiesterase 3 Inhibitor Start: 02-02-2023 End: 02-09-2025 take 1 tablet by mouth twice daily cilostazoL (PLETAL) 100 MG tablet Indications: PAD (peripheral artery disease) (HCC) , 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, bilateral legs (HCC) TAKE 1 TABLET BY MOUTH TWICE DAILY ON AN EMPTY STOMACH 180 tablet 06/26/2024 Suspended Start: 03-17-2022 End: 10-28-2022 take 1 tablet by mouth twice daily cilostazoL (PLETAL) 100 MG tablet Indications: PAD (peripheral artery disease) (HCC) , 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, bilateral legs (HCC) TAKE 1 TABLET BY MOUTH TWICE DAILY ON AN EMPTY STOMACH 60 tablet 2 10/28/2022 Active 50 ml clindamycin 18 mg/ml injection (5 sources) Lincosamide Antibacterial Start: 01-28-2025 End: 01-29-2025 take 900 mg intravenously every eight hours Start: 01-26-2025 End: 02-09-2025 50 ml fentaNYL 0.05 mg/ml injection (1 source) Opioid Agonist Start: 12-26-2018 End: 12-26-2018 25 mcg, Intravenous, Every 5 min PRN, Pain, Starting 12/26/18 at 1446, For 4 doses, PACU (only) [] Do not give more than 100 mcg while in PACU. FREESTYLE LITE METER kit (1 source) Start: 09-29-2015 End: 01-05-2016 FREESTYLE LITE METER kit Use as instructed to check BG DX code E 11.65. 1 each 0 09/29/2015 01/05/2016 Discontinued (Formulary change) 50 ml glucose 500 mg/ml prefilled syringe (7 sources) Start: 02-07-2025 End: 02-07-2025 Start: 02-02-2025 End: 02-02-2025 Start: 02-02-2025 End: 02-08-2025 Start: 02-02-2025 End: 02-02-2025 Start: 02-02-2025 End: 02-02-2025 Start: 02-02-2025 End: 02-02-2025 Start: 02-02-2025 End: 02-02-2025 500 ml glucose 50 mg/ml / potassium chloride 0.02 meq/ml / sodium chloride 4.5 mg/ml injection (1 source) Start: 01-28-2025 End: 01-29-2025 250 ml heparin sodium, porcine 100 unt/ml injection (1 source) Unfractionated Heparin, Anti-coagulant Start: 01-28-2025 End: 02-06-2025 insulin syringe-needle U-100 0.3 mL 31 x 5/16 Syrg (20 sources) Start: 09-26-2015 End: 12-10-2021 insulin syringe-needle U-100 0.3 mL 31 x 5/16 Syrg Use as directed QID. 400 each 3 09/26/2015 12/10/2021 Discontinued (Reorder (Suppress CancelRx Message to Pharmacy)) Start: 09-26-2015 insulin syring e-needle U-100 0.3 mL 31 x 5/16 Syrg Use as directed QID. 400 each 3 09/26/2015 Active 100 ml insulin, regular, hum an 1 unt/ml injection (2 sources) Insulin Start: 01-28-2025 End: 01-29-2025 Start: 01-28-2025 End: 01-28-2025 1 ml ketorolac tromethamine 30 mg/ml injection (1 source) Nonsteroidal Anti-inflammatory Drug, Cyclooxygenase Inhibitor Start: 01-28-2025 End: 01-28-2025 4 ml labetalol hydrochloride 5 mg/ml cartridge (1 source) beta-Adrenergic Julia Start: 12-26-2018 End: 12-26-2018 5 mg, Intravenous, Every 5 min PRN, SBP greater than 160 or DBP greater than 90, Starting 12/26/18 at 1446, For 4 doses, PACU (only) [] Do not give more than 20 mg total. [] Hold for HR less than 50. 50 ml magnesium sulfate 40 mg/ml injection (4 sources) Start: 02-09-2025 End: 02-09-2025 Start: 02-06-2025 End: 02-06-2025 Start: 02-04-2025 End: 02-04-2025 Start: 02-01-2025 End: 02-01-2025 melatonin 3 mg oral tablet (1 source) Start: 01-31-2025 End: 02-09-2025 naloxone (NARCAN) injection 0.1 mg (1 source) Start: 12-26-2018 End: 12-26-2018 naloxone (NARCAN) injection 0.1 mg nystatin [id number] unt/ml oral suspension (14 sources) Polyene Antifungal Start: 02-06-2025 End: 02-08-2025 Start: 08-02-2021 End: 08-02-2022 nystatin (MYCOSTATIN) powder Apply topically 2 (two) times a day . 15 g 0 08/02/2021 02/19/2022 Discontinued (Therapy completed) 2 ml ondansetron 2 mg/ml injection (1 source) Serotonin-3 Receptor Antagonist Start: 01-29-2025 End: 02-09-2025 take 4 mg intravenously every six hours as needed for nausea and vomiting oxyCODONE hydrochloride 5 mg oral tablet (1 source) Opioid Agonist Start: 01-31-2025 End: 02-09-2025 take 5 mg by mouth every four hours as needed 50 ml penicillin g potassium 55505 unt/ml injection (1 source) Penicillin-class Antibacterial Start: 01-29-2025 End: 02-08-2025 Perflutren Lipid Microspheres Syringe 10 Ml (Cmp) (1 source) Contrast Agent for Ultrasound Imaging Start: 11-21-2017 End: 11-21-2017 perflutren lipid microspheres (DEFINITY) 0.143 mg/mL solution 0-10 mL of mixture perflutren lipid microspheres (DEFINITY) 0.143 mg/mL solution 0-10 mL of mixture (1 source) Start: 12-08-2018 End: 12-08-2018 perflutren lipid microspheres (DEFINITY) 0.143 mg/mL solution 0-10 mL of mixture piperacillin 3000 mg / tazobactam 375 mg injection (2 sources) Penicillin-class Antibacterial, beta Lactamase Inhibitor Start: 01-29-2025 End: 01-29-2025 take 3.375 g intravenously every eight hours Start: 01-28-2025 End: 01-28-2025 polyethylene glycol 3350 66607 mg powder for oral solution (1 source) Osmotic Laxative Start: 02-06-2025 End: 02-09-2025 1000 ml potassium chloride 0.02 meq/ml / sodium chloride 9 mg/ml injection (1 source) Start: 01-28-2025 End: 01-29-2025 Potassium Chloride 20 Meq Oral Packet (2 sources) Start: 03-07-2017 End: 05-09-2017 take 20 mEq by mouth every other day potassium chloride (KLOR-CON) 20 mEq packet Take 20 (twenty) mEq by mouth every other day. 15 packet 11 03/07/2017 05/09/2017 Discontinued Start: 04-16-2016 End: 04-16-2017 take 20 mEq by mouth every other day potassium chloride (KLOR-CON) 20 mEq packet Take 20 mEq by mouth every other day. 15 packet 11 04/16/2016 04/16/2017 Active sildenafil 100 mg oral tablet (20 sources) Phosphodiesterase 5 Inhibitor Start: 03-31-2018 End: 03-31-2019 sildenafil (VIAGRA) 100 MG tablet Take 1 (one) tablet (100 mg total) by mouth as needed for erectile dysfunction. 5 tablet 12 03/31/2018 03/31/2019 Start: 11-04-2017 End: 11-04-2018 sildenafil (VIAGRA) 50 MG ta blet Take 1 (one) tablet (50 mg total) by mouth as needed for erectile dysfunction. 5 tablet 3 11/04/2017 11/04/2018 Active 1000 ml sodium chloride 9 mg /ml injection (4 sources) Start: 01-28-2025 End: 01-28-2025 Start: 01-28-2025 End: 01-28-2025 Start: 12-26-2018 End: 12-26-2018 sodium chloride 0.9% (NS) technetium (Tc-99m) tetrofos min (Tc-MYOVIEW) injection 8-25 millicurie (2 sources) Start: 12-12-2018 End: 12-12-2018 technetium (Tc-99m) tetrofos min (Tc-MYOVIEW) injection 8-25 millicurie Start: 12-12-2018 End: 12-12-2018 technetium (Tc-99m) tetrofos min (Tc-MYOVIEW) injection 8-25 millicurie warfarin sodium 2 mg oral tablet (1 source) Vitamin K Antagonist Start: 09-29-2015 End: 04-16-2016 warfarin (COUMADIN) 2 MG tablet Indications: as directed by INR directed based on blood test. Reasonsas directed by INR. 30 tablet 0 09/29/2015 04/16/2016 Discontinued (Therapy completed) (4 sources) Start: 02-07-2025 End: 02-09-2025 [Order 1 Start] Name: insulin lispro (AdmeLOG,HumaLOG) injection 0-15 Units Signed Summary: 0-15 Units, Subcutaneous, At bedtime, First dose (after last modification) on Tue02/07/25 at 2100, IF initial POC glucose is greater than 250, administer insulin as directed and re-check POC glucose no sooner than 2 hours after administration. THEN notify provider if POC glucose is still greater than 250., For nightly BG greater than 250, give: Half ( ) Corrective Scale, Nightly Prandial Snack Dosing Method: NO Snack Coverage - Corrective Scale ONLY, Nightly Insulin Dose Corrective Scale: FOLLOW DAYTIME Prandial Corrective Scale, Corrective Insulin Regimen (select desired scale to cover BG result): USUAL Sensitivity Scale, (REMINDER: Nightly Insulin Dose Corrective Scale will be automatically calculated to be of the daytime scale), Dose Reduction Threshold (at meals) for POC Blood Glucose less than or equal to: 80, For Downtime Calculator, use: Insulin SC NIGHTtime, On hold since Tue02/08/2025 at 0841 until manually unheld [Order 1 End] [Order 2 Start] Name: Notify physician Signed Summary: Routine, Until discontinued, Starting on Tue02/07/25 at 1103, Until Specified, Other: IF HS POC Glucose RE-CHECK Greater than 250, If initial HS POC glucose is greater than 250, administer insulin as directed and re-check POC glucose no sooner than 2 hours after administration. IF RE-CHECK POC glucose is still greater than 250, notify provider. [Order 2 End] Start: 01-31-2025 End: 02-09-2025 [Order 1 Start] Name: naloxo ne (NARCAN) injection 0.1 mg Signed Summary: 0.1 mg, Intravenous, As needed, opioid reversal, For respiratory rate less than or equal to 8 per minute., Starting on Martha 01/31/25 at 0957, Mix nalOXone (NARCAN) 0.4 mg (1mL) with 9 mL of Normal Saline to total 10 mL. Administer 0.1 mg (2.5mL) IV Push every 2 minutes until respiratory rate is 10 or greater. [Order 1 End] [Order 2 Start] Name: Notify physician Signed Summary: STAT, Until discontinued, Starting on Martha 01/31/25 at 0958, Until Specified, Respiratory rate less than: 8, For respiratory rate less than or equal to 8, notify physician and/or appropriate staff for additional orders. [Order 2 End] [Order 3 Start] Name: naloxone (NARCAN) injection 0.4 mg Signed Summary: 0.4 mg, Intravenous, As needed, opioid reversal, patient is pulseless, breathless, and unresponsive, Starting on Martha 01/31/25 at 0957, Call a code first, then administer naloxone dose undiluted IV Push over 30 seconds. [Order 3 End] Start: 01-29-2025 End: 01-29-2025 Start: 01-28-2025 End: 02-09-2025 [Order 1 Start] Name: Saline lock IV Signed Summary: Routine, Continuous, Starting on Tue01/28/25 at 2231, Until Specified [Order 1 End] [Order 2 Start] Name: sodium chloride (PF) (NS) flush 5 mL Signed Summary: 5 mL, Intravenous, As needed, line care, Starting on Tue01/28/25 at 2230 [Order 2 End] [Order 3 Start] Name: sodium chloride (PF) (NS) flush 5 mL Signed Summary: 5 mL, Intravenous, Every 8 hours scheduled, First dose on Tue01/28/25 at 2235, Saline lock [Order 3 End] [Order 4 Start] Name: sodium chloride 0.9% (NS) Signed Summary: 0-150 mL/hr, Intravenous, As needed, To flush line after IV infusions when no maintenance IV ordered or a compatibility issue. Infuse 20ml at the same rate as the secondary infusion, Starting on Tue01/28/25 at 2230, Run as Primary IV. NOT intended for KVO. [Order 4 End] (1 source) Start: 01-28-2025 End: 02-06-2025 (1 source) Start: 01-28-2025 End: 01-28-2025 (1 source) Start: 01-28-2025 End: 01-28-2025 Problems Active Problems Problem Classification Problem Date Documented Da te Episodic/Chronic Acute and unspecified renal failure (3 sources) Acute renal failure syndrome; 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: [Acute kidney failure, unspecified] Onset: 02-20-2025 02-09-2025 Episodic Anxiety disorders (20 sources) Mixed anxiety and depressive disorder; 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: [Anxiety disorder, unspecified] Onset: 03-02-2021 03-02-2021 Chronic Aortic; peripheral; and visceral artery aneurysms (20 sources) Aneurysm of ascending aorta; 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: [Aneurysm of ascending aorta without rupture (HCC)] Onset: 07-28-2023 07-28-2023 Chronic Bacterial infection; unspecified site (4 sources) Bacteremia caused by Gram-positive bacteria; 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: [Bacteremia] Onset: 02-20-2025 02-09-2025 Episodic Cancer of head and neck (20 sources) Primary malignant neoplasm of vestibule of mouth; 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: [Malignant neoplasm of vestibule of mouth] Onset: 12-16-2020 12-16-2020 Chronic Cardiac dysrhythmias (20 sources) Atrial fibrillation; 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: [Persistent atrial fibrillation] Onset: 09-01-2015 09-01-2015 Chronic Conduction disorders (20 sources) Right bundle branch block; 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: [Unspecified right bundle-branch block] Onset: 08-19-2016 08-19-2016 Chronic Congestive heart failure; nonhypertensive (3 sources) Heart failure with normal ejection fraction; 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: [Acute diastolic (congestive) heart failure] Onset: 02-20-2025 02-09-2025 Chronic Coronary atherosclerosis and other heart disease (20 sources) Coronary arteriosclerosis; 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: [Atherosclerotic heart disease of [place] coronary artery without angina pectoris] Onset: 02-20-2025 Resolved: 03-04-2023 09-01-2015 Chronic Deficiency and other anemia (1 source) Anemia of chronic disease; 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: [Anemia in other chronic diseases classified elsewhere] 01-29-2025 Chronic Deficiency and other anemia (2 sources) Anemia in other chronic diseases classified elsewhere; 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: [Anemia in other chronic diseases classified elsewhere] Onset: 01-28-2025 Chronic Deficiency and other anemia (2 sources) Anemia; 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: [Anemia, unspecified] 02-18-2025 Episodic Deficiency and other anemia (1 source) Anemia, unspecified; 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: [Anemia, unspecified] Onset: 02-22-2025 Episodic Diabetes mellitus with complications (20 sources) Type 2 diabetes mellitus; 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: [Type 2 diabetes mellitus with unspecified diabetic retinopathy with macular edema] Onset: 09-23-2015 Chronic Diabetes mellitus without complication (20 sources) Diabetes mellitus; 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: [Type 2 diabetes mellitus] Onset: 09-23-2015 09-23-2015 Chronic Disorders of lipid metabolism (20 sources) Hypercholesterolemia ; 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: [Hyperlipidemia] Onset: 09-23-2015 09-23-2015 Chronic Essential hypertension (20 sources) Hypertensive disorder; 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: [Essential hypertension] Onset: 09-01-2015 09-01-2015 Chronic Fracture of upper limb (1 source) Fracture of hand Episodic Gastrointestinal hemorrhage (5 sources) Hematochezia; 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: [Melena] Onset: 02-22-2025 02-09-2025 Episodic Genitourinary symptoms and ill-defined conditions (3 sources) Retention of urine; 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: [Retention of urine, unspecified] Onset: 02-20-2025 02-09-2025 Episodic Heart valve disorders (20 sources) History of aortic valve replacement; 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: [Presence of prosthetic heart valve] Onset: 09-01-2015 11-04-2017 Chronic Hyperplasia of prostate (20 sources) Benign prostatic hypertrophy with outflow obstruction; 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: [Benign prostatic hyperplasia with lower urinary tract symptoms] Onset: 12-16-2020 12-16-2020 Chronic Hypertension with complications and secondary hypertension (2 sources) Hypertensive heart failure; 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: [Hypertensive heart disease with heart failure] Chronic Immunizations and screening for infectious disease (1 source) Vaccination needed; 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: [Encounter for immunization] Episodic Malaise and fatigue (3 sources) Asthenia; 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: [Other malaise] Onset: 02-20-2025 02-09-2025 Episodic Mood disorders (20 sources) Mild major depression; 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: [Major depressive disorder, single episode, mild] Onset: 06-14-2022 Chronic Mycoses (16 sources) Onychomycosis; 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: [Tinea unguium] Onset: 02-22-2024 Episodic Other aftercare (1 source) Traumatic subdural hemorrhage; 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: [Traumatic subdural hemorrhage with unknown loss of consciousness status, subsequent encounter] 11-29-2023 Episodic Other circulatory disease (2 sources) History of subdural hematoma; 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: [Personal history of other diseases of the circulatory system] 02-09-2025 Episodic Other circulatory disease (1 source) Personal history of other diseases of the circulatory system; 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: [Personal history of other diseases of the circulatory system] Onset: 02-20-2025 Episodic Other connective tissue disease (5 sources) Ganglion cyst; 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: [Ganglion, unspecified site] 10-30-2024 Episodic Other connective tissue disease (2 sources) Ganglion, unspecified site; 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: [Ganglion, unspecified site] Onset: 11-07-2024 Episodic Other connective tissue disease (2 sources) Abscess of bursa, left wrist; 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: [Abscess of bursa, left wrist] Onset: 01-26-2025 Episodic Other connective tissue disease (2 sources) Ganglion, left wrist; 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: [Ganglion, left wrist] Onset: 01-27-2025 Episodic Other ear and sense organ disorders (20 sources) Sensorineural hearing loss; 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: [Unspecified sensorineural hearing loss] Onset: 12-16-2020 12-16-2020 Chronic Other ear and sense organ disorders (1 source) Sensorineural hearing loss, bilateral; 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: [Sensorineural hearing loss, bilateral] 11-29-2023 Chronic Other eye disorders (2 sources) Vitreous hemorrhage, unspecified eye; 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: [Vitreous hemorrhage, unspecified eye] Onset: 12-10-2021 Chronic Other injuries and conditions due to external causes (2 sources) At low risk for fall; 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: [History of falling] Episodic Other liver diseases (2 sources) Enzyme level - finding; 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: [Elevated transaminase measurement] 02-09-2025 Episodic Other lower respiratory disease (2 sources) Dyspnea; 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: [Shortness of breath] Onset: 01-28-2025 01-28-2025 Episodic Other lower respiratory disease (1 source) Shortness of breath; 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: [Shortness of breath] Onset: 01-28-2025 Episodic Other nervous system disorders (2 sources) Disorder of brain; 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: [Encephalopathy, unspecified] 02-09-2025 Chronic Other nervous system disorders (1 source) Encephalopathy, unspecified; 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: [Encephalopathy, unspecified] Onset: 02-20-2025 Chronic Other non-traumatic joint disorders (1 source) Pain of left wrist; 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: [Pain in left wrist] 01-28-2025 Episodic Other non-traumatic joint disorders (4 sources) Pain in left wrist; 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: [Pain in left wrist] Onset: 01-26-2025 Episodic Other nutritional; endocrine; and metabolic disorders (20 sources) Body mass index 30+ - obesity; 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: [Obesity, unspecified] Onset: 12-16-2020 12-09-2022 Chronic Other nutritional; endocrine; and metabolic disorders (2 sources) Obesity, unspecified; 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: [Obesity, unspecified] Onset: 12-09-2022 Chronic Other screening for suspected conditions (not mental disorders or infectious disease) (20 sources) Cardiovascular stress test abnormal; 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: [Abnormal result of other cardiovascular function study] Onset: 12-22-2021 Resolved: 05-14-2022 Episodic Peripheral and visceral atherosclerosis (20 sources) Peripheral vascular disease; 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: [Peripheral vascular disease, unspecified] Onset: 02-22-2022 Resolved: 03-04-2023 Chronic Residual codes; unclassified (1 source) H/O: surgery; 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: [Surgery follow-up] Episodic Residual codes; unclassified (2 sources) Pain, unspecified; 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: [Pain, unspecified] Onset: 11-07-2024 Episodic Septicemia (except in labor) (8 sources) Septic shock; 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: [Sepsis, unspecified organism] Onset: 02-04-2025 01-28-2025 Episodic Shock (13 sources) Shock; 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: [Shock, unspecified] Onset: 01-28-2025 01-28-2025 Episodic Skin and subcutaneous tissue infections (8 sources) Abscess of left hand; 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: [Cutaneous abscess of left hand] Onset: 01-26-2025 02-09-2025 Episodic Spondylosis; intervertebral disc disorders; other back problems (20 sources) Degeneration of lumbar intervertebral disc; 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: [Other intervertebral disc degeneration, lumbar region] Onset: 10-02-2019 10-02-2019 Chronic Transient cerebral ischemia (3 sources) Transient cerebral ischemia; 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: [Transient cerebral ischemic attack, unspecified] Onset: 02-20-2025 02-09-2025 Chronic Unclassified (1 source) Patient encounter status; 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: [Preoperative testing] Unclassified (20 sources) HEALTHY DIET INFORMATION NEEDED ([id number]) Onset: 08-08-2023 08-08-2023 Unclassified (2 sources) Nail Care Onset: 05-23-2024 Unclassified (2 sources) Other persistent atrial fibrillation; 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: [Other persistent atrial fibrillation] Onset: 05-14-2022 Unclassified (1 source) Elevation of levels of liver transaminase levels; 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: [Elevation of levels of liver transaminase levels] Onset: 02-20-2025 Past or Other Problems Problem Classification Problem Date Documented Da te Episodic/Chronic Administrative/social admission (20 sources) Patient encounter status; 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: [Persons encountering health services in other specified circumstances] Onset: 06-15-2022 Episodic Cardiac arrest and ventricular fibrillation (20 sources) Ventricular fibrillation; 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: [Ventricular fibrillation] Onset: 06-12-2021 Resolved: 12-10-2021 Chronic Complication of device; implant or graft (20 sources) Complication after wiring of sternum; 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: [Breakdown (mechanical) of internal fixation device of other bones, initial encounter] Onset: 09-01-2015 09-01-2015 Episodic Complications of surgical procedures or medical care (20 sources) Impaired wound healing; 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: [Complication after wiring of sternum] Onset: 09-01-2015 Resolved: 05-14-2022 10-15-2015 Episodic Coronary atherosclerosis and other heart disease (20 sources) History of coronary artery bypass grafting; 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: [S/P CABG (coronary artery bypass graft)] Onset: 09-01-2015 05-09-2017 Episodic Deficiency and other anemia (20 sources) Iron deficiency anemia; 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: [Iron deficiency anemia, unspecified] Onset: 06-15-2016 06-15-2016 Episodic Intracranial injury (20 sources) Hemorrhage into subdural space of neuraxis; 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: [Traumatic subdural hemorrhage with loss of consciousness of unspecified duration, initial encounter] Onset: 03-22-2008 Resolved: 11-29-2023 12-16-2020 Episodic Mood disorders (20 sources) Mood disorders Onset: 11-29-2023 Resolved: 10-30-2024 11-29-2023 Nonspecific chest pain (20 sources) Chest pain; 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: [Chest pain, unspecified] Onset: 12-01-2018 Resolved: 05-14-2022 12-01-2018 Episodic Other aftercare (20 sources) Long-term current use of anticoagulant; 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] Onset: 12-09-2022 12-09-2022 Episodic Other aftercare (2 sources) halfway (current) use of insulin; 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: [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] Onset: 07-28-2023 Episodic Other aftercare (2 sources) 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; 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] Onset: 12-09-2022 Episodic Other and unspecified benign neoplasm (20 sources) Pigmented skin lesion ; 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: [Melanocytic nevi, unspecified] Onset: 12-17-2020 12-17-2020 Episodic Other circulatory disease (20 sources) Aortic pulsation in abdomen; 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: [Other specified symptoms and signs involving the circulatory and respiratory systems] Onset: 12-01-2018 Resolved: 05-14-2022 12-01-2018 Episodic Other connective tissue disease (20 sources) Radial styloid tenosynovitis; 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: [Radial styloid tenosynovitis [de Quervain]] Onset: 12-15-2018 12-15-2018 Episodic Other gastrointestinal disorders (20 sources) Diarrhea; 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: [Diarrhea, unspecified] Onset: 01-21-2023 Resolved: 03-04-2023 01-21-2023 Episodic Other injuries and conditions due to external causes (20 sources) Delayed healing of wound; 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: [Other injury of unspecified body region, subsequent encounter] Onset: 10-15-2015 Resolved: 05-14-2022 10-15-2015 Episodic Other injuries and conditions due to external causes (20 sources) At high risk for fall; 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: [History of falling] Onset: 12-19-2023 11-29-2023 Episodic Other lower respiratory disease (20 sources) Cough; 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: [Cough, unspecified type] Onset: 07-23-2022 Resolved: 03-04-2023 Episodic Other nervous system disorders (20 sources) Impairment of balance; 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: [Other abnormalities of gait and mobility] Onset: 03-02-2021 03-02-2021 Episodic Other non-traumatic joint disorders (20 sources) Pain in wrist; 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: [Pain in right wrist] Onset: 12-15-2018 12-15-2018 Episodic Other non-traumatic joint disorders (20 sources) Chronic pain of right upper limb; 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: [Pain in right wrist] Onset: 12-15-2018 12-15-2018 Episodic Other nutritional; endocrine; and metabolic disorders (20 sources) Morbid obesity; 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: [Morbid (severe) obesity due to excess calories] Onset: 12-16-2020 Resolved: 01-26-2024 12-16-2020 Chronic Superficial injury; contusion (20 sources) Abrasion, right foot, subsequent encounter; 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: [Other specified aftercare] Onset: 10-27-2023 10-27-2023 Episodic Unclassified (20 sources) Onset: 11-29-2023 11-29-2023 Results Test Name Value Interpretation Reference Range Facility Basic Metabolic Profile (BMP )on 02-23-2025 BUN/CRE 21.3 RATIO High 10-20 [facility] Comment on above: Performed By: #### L 101.9900, L500.2500, L100.0100, L501.6710, L501.1400 #### [facility] [address] [place], [address] Calcium [Mass/Vol] 8.6 mg/dL Normal 7.6-11.0 [facility] Comment on above: Performed By: #### L 101.9900, L500.2500, L100.0100, L501.6710, L501.1400 #### [facility] [address] [place], [address] Chloride [Moles/Vol] 100 mmol/L Normal 98-108 [facility] Comment on above: Performed By: #### L 101.9900, L500.2500, L100.0100, L501.6710, L501.1400 #### [facility] [address] [place], [address] CO2 [Moles/Vol] 25.3 mmol/L Normal 21.0-32.0 [facility] Comment on above: Performed By: #### L 101.9900, L500.2500, L100.0100, L501.6710, L501.1400 #### [facility] [address] [place], [address] Creatinine [Mass/Vol] 0.98 mg/dL Normal 0.70-1.20 [facility] Comment on above: Performed By: #### L 101.9900, L500.2500, L100.0100, L501.6710, L501.1400 #### [facility] [address] [place], [address] ECRCL 66.15 ml/min Normal 50-250 [facility] Comment on above: Performed By: #### L 101.9900, L500.2500, L100.0100, L501.6710, L501.1400 #### [facility] [address] [place], [address] GAP 11 Normal 5-15 [facility] Comment on above: Performed By: #### L 101.9900, L500.2500, L100.0100, L501.6710, L501.1400 #### [facility] [address] [place], [address] GFR/1.73 sq M.predicted among non-blacks MDRD (S/P/Bld) [Vol rate/Area] 78 mL/min/{1.73_m2} Normal >60 [facility] Comment on above: Result Comment: mL/m in/1.73m2 CKD-EPI Creatinine Equation (2020) Performed By: #### L 101.9900, L500.2500, L100.0100, L501.6710, L501.1400 #### [facility] [address] [place], [address] Glucose [Mass/Vol] 190 mg/dL High 70-99 [facility] Comment on above: Performed By: #### L 101.9900, L500.2500, L100.0100, L501.6710, L501.1400 #### [facility] [address] [place], [address] Potassium [Moles/Vol] 4.2 mmol/L Normal 3.3-5.1 [facility] Comment on above: Performed By: #### L 101.9900, L500.2500, L100.0100, L501.6710, L501.1400 #### [facility] [address] [place], [address] Sodium [Moles/Vol] 136 mmol/L Normal 133-145 [facility] Comment on above: Performed By: #### L 101.9900, L500.2500, L100.0100, L501.6710, L501.1400 #### [facility] [address] [place], [address] Urea nitrogen [Mass/Vol] 21 mg/dL High 4-19 [facility] Comment on above: Performed By: #### L 101.9900, L500.2500, L100.0100, L501.6710, L501.1400 #### [facility] [address] [place], [address] Bedside Glucoseon 02-23-2025 FINGERSTICK GLU 217 mg/dL High 74-106 [facility] Comment on above: Result Comment: ARACELI FISH OF PATIENT CARE PER NURSING PROTOCOL Performed By: #### L 501.080 #### [facility] [address] [place], [address] FINGERSTICK GLU 190 mg/dL High 74-106 [facility] Comment on above: Result Comment: ARACELI GEMENT OF PATIENT CARE PER NURSING PROTOCOL Performed By: #### L 501.080 #### [facility] [address] [place], [address] FINGERSTICK GLU 185 mg/dL High 74-106 [facility] Comment on above: Result Comment: ARACELI GEMENT OF PATIENT CARE PER NURSING PROTOCOL Performed By: #### L 501.080 #### [facility] [address] [place], [address] CBC W/Diff, Automatedon 02-08 ATYPICAL LYMPH 2+ Normal [facility] Comment on above: Performed By: #### L 101.9900, L500.2500, L100.0100, L501.6710, L501.1400 #### [facility] [address] [place], [address] SMEAR COMMENT SCANNED Normal [facility] Comment on above: Performed By: #### L 101.9900, L500.2500, L100.0100, L501.6710, L501.1400 #### [facility] [address] [place], [address] CRPon 02-23-2025 C-REACTIVE PROT 39.10 mg/L High 0.0-3.0 [facility] Comment on above: Performed By: #### L 101.9900, L500.2500, L100.0100, L501.6710, L501.1400 #### [facility] [address] [place], [address] Erythrocyte Sed Rateon 02-23 SED RATE 50 mm/hr High 0-20 [facility] Comment on above: Performed By: #### L 101.9900, L500.2500, L100.0100, L501.6710, L501.1400 #### [facility] [address] [place], [address] MRSA Wound DNA by PCRon 02-08 MRSA DNA ASSAY Negative Normal Negative [facility] Comment on above: Order Comment: Left Hand wound Performed By: #### L 501.080 #### [facility] [address] [place], [address] SA DNA ASSAY Negative Normal Negative [facility] Comment on above: Order Comment: Left Hand wound Performed By: #### L 501.080 #### [facility] [address] [place], [address] Uric Acidon 02-23-2025 URIC 5.5 mg/dL Normal 3.5-7.2 [facility] Comment on above: Result Comment: The drugs N-Acetylcysteine and Metamizole may falsely depress this assay. Performed By: #### L 101.9900, L500.2500, L100.0100, L501.6710, L501.1400 #### [facility] [address] [place], [address] Basic Metabolic Profile (BMP )on 02-22-2025 BUN/CRE 25.3 RATIO High 10-20 [facility] Comment on above: Performed By: #### L 500.2500, L100.0100 #### [facility] [address] [place], [address] Calcium [Mass/Vol] 8.6 mg/dL Normal 7.6-11.0 [facility] Comment on above: Performed By: #### L 500.2500, L100.0100 #### [facility] [address] [place], [address] Chloride [Moles/Vol] 100 mmol/L Normal 98-108 [facility] Comment on above: Performed By: #### L 500.2500, L100.0100 #### [facility] [address] [place], [address] CO2 [Moles/Vol] 24.0 mmol/L Normal 21.0-32.0 [facility] Comment on above: Performed By: #### L 500.2500, L100.0100 #### [facility] [address] [place], [address] Creatinine [Mass/Vol] 0.90 mg/dL Normal 0.70-1.20 [facility] Comment on above: Performed By: #### L 500.2500, L100.0100 #### [facility] [address] [place], [address] ECRCL 72.04 ml/min Normal 50-250 [facility] Comment on above: Performed By: #### L 500.2500, L100.0100 #### [facility] [address] [place], [address] GAP 10 Normal 5-15 [facility] Comment on above: Performed By: #### L 500.2500, L100.0100 #### [facility] [address] [place], [address] GFR/1.73 sq M.predicted among non-blacks MDRD (S/P/Bld) [Vol rate/Area] 86 mL/min/{1.73_m2} Normal >60 [facility] Comment on above: Result Comment: mL/m in/1.73m2 CKD-EPI Creatinine Equation (2020) Performed By: #### L 500.2500, L100.0100 #### [facility] [address] [place], [address] Glucose [Mass/Vol] 209 mg/dL High 70-99 [facility] Comment on above: Performed By: #### L 500.2500, L100.0100 #### [facility] [address] [place], [address] Potassium [Moles/Vol] 4.2 mmol/L Normal 3.3-5.1 [facility] Comment on above: Performed By: #### L 500.2500, L100.0100 #### [facility] [address] [place], [address] Sodium [Moles/Vol] 134 mmol/L Normal 133-145 [facility] Comment on above: Performed By: #### L 500.2500, L100.0100 #### [facility] [address] [place], [address] Urea nitrogen [Mass/Vol] 23 mg/dL High 4-19 [facility] Comment on above: Performed By: #### L 500.2500, L100.0100 #### [facility] [address] [place], [address] Bedside Glucoseon 02-22-2025 FINGERSTICK GLU 169 mg/dL High 74-106 [facility] Comment on above: Result Comment: ARACELI GEMENT OF PATIENT CARE PER NURSING PROTOCOL Performed By: #### L 501.080 #### [facility] [address] [place], [address] FINGERSTICK GLU 218 mg/dL High 74-106 [facility] Comment on above: Result Comment: ARACELI GEMENT OF PATIENT CARE PER NURSING PROTOCOL Performed By: #### L 501.080 #### [facility] [address] [place], [address] FINGERSTICK GLU 178 mg/dL High 74-106 [facility] Comment on above: Result Comment: ARACELI GEMENT OF PATIENT CARE PER NURSING PROTOCOL Performed By: #### L 101.9900, L500.2500, L100.0100, L501.6710, L501.1400 #### [facility] [address] [place], [address] FINGERSTICK GLU 192 mg/dL High 74-106 [facility] Comment on above: Result Comment: ARACELI GEMENT OF PATIENT CARE PER NURSING PROTOCOL Performed By: #### L 500.2500, L100.0100 #### [facility] [address] [place], [address] CBC W/Diff, Automatedon 08 SMEAR COMMENT SCANNED Normal [facility] Comment on above: Performed By: #### L 500.2500, L100.0100 #### [facility] [address] [place], [address] CRPon 02-22-2025 C-REACTIVE PROT 30.80 mg/L High 0.0-3.0 [facility] Comment on above: Performed By: #### L 500.2500, L100.0100 #### [facility] [address] [place], [address] Erythrocyte Sed Rateon 02-22 SED RATE 52 mm/hr High 0-20 [facility] Comment on above: Performed By: #### L 500.2500, L100.0100 #### [facility] [address] [place], [address] Bedside Glucoseon 02-21-2025 FINGERSTICK GLU 188 mg/dL High 74-106 [facility] Comment on above: Result Comment: ARACELI GEMENT OF PATIENT CARE PER NURSING PROTOCOL Performed By: #### L 500.2500, L100.0100 #### [facility] [address] [place], [address] FINGERSTICK GLU 211 mg/dL High 74-106 [facility] Comment on above: Result Comment: ARACELI GEMENT OF PATIENT CARE PER NURSING PROTOCOL Performed By: #### L 101.9900, L500.2500, L100.0100, L501.6710, L501.1400 #### [facility] [address] [place], [address] FINGERSTICK GLU 110 mg/dL High 74-106 [facility] Comment on above: Result Comment: ARACELI GEMENT OF PATIENT CARE PER NURSING PROTOCOL Performed By: #### L 101.9900, L500.2500, L100.0100, L501.6710, L501.1400 #### [facility] [address] [place], [address] FINGERSTICK GLU 159 mg/dL High 74-106 [facility] Comment on above: Result Comment: ARACELI GEMENT OF PATIENT CARE PER NURSING PROTOCOL Performed By: #### L 101.9900, L500.2500, L100.0100, L501.6710, L501.1400 #### [facility] [address] [place], [address] Bedside Glucoseon 02-20-2025 FINGERSTICK GLU 102 mg/dL Normal 74-106 [facility] Comment on above: Result Comment: ARACELI GEMENT OF PATIENT CARE PER NURSING PROTOCOL Performed By: #### L 101.9900, L500.2500, L100.0100, L501.6710, L501.1400 #### [facility] [address] [place], [address] FINGERSTICK GLU 155 mg/dL High 74-106 [facility] Comment on above: Result Comment: ARACELI GEMENT OF PATIENT CARE PER NURSING PROTOCOL Performed By: #### L 500.2500, L100.0100 #### [facility] [address] [place], [address] FINGERSTICK GLU 220 mg/dL High 74-106 [facility] Comment on above: Result Comment: ARACELI GEMENT OF PATIENT CARE PER NURSING PROTOCOL Performed By: #### L 500.2500, L100.0100 #### [facility] [address] [place], [address] FINGERSTICK GLU 162 mg/dL High [facility]106 [facility] Comment on above: Result Comment: ARACEIL GEMENT OF PATIENT CARE PER NURSING PROTOCOL Performed By: #### L 500.2500, L100.0100 #### [facility] [address] [place], [address] Bedside Glucoseon 02-19-2025 FINGERSTICK GLU 191 mg/dL High 74-106 [facility] Comment on above: Result Comment: ARACELI GEMENT OF PATIENT CARE PER NURSING PROTOCOL Performed By: #### L 101.9900, L500.2500, L100.0100, L501.6710, L501.1400 #### [facility] [address] [place], [address] FINGERSTICK GLU 82 mg/dL Normal 74-106 [facility] Comment on above: Result Comment: ARACELI GEMENT OF PATIENT CARE PER NURSING PROTOCOL Performed By: #### L 500.2500, L100.0100 #### [facility] [address] [place], [address] FINGERSTICK GLU 71 mg/dL Low 74-106 [facility] Comment on above: Result Comment: ARACELI GEMENT OF PATIENT CARE PER NURSING PROTOCOL Performed By: #### L 101.9900, L500.2500, L100.0100, L501.6710, L501.1400 #### [facility] [address] [place], [address] FINGERSTICK GLU 66 mg/dL Low 74-106 [facility] Comment on above: Result Comment: ARACELI GEMENT OF PATIENT CARE PER NURSING PROTOCOL Performed By: #### L 500.2500, L100.0100 #### [facility] [address] [place], [address] FINGERSTICK GLU 102 mg/dL Normal 74-106 [facility] Comment on above: Result Comment: ARACELI GEMENT OF PATIENT CARE PER NURSING PROTOCOL Performed By: #### L 500.2500, L100.0100 #### [facility] [address] [place], [address] FINGERSTICK GLU 137 mg/dL High 74-106 [facility] Comment on above: Result Comment: ARACELI GEMENT OF PATIENT CARE PER NURSING PROTOCOL Performed By: #### L 101.9900, L500.2500, L100.0100, L501.6710, L501.1400 #### [facility] [address] [place], [address] Glucose measurement at [facility] deOrdered By: Gaetano Menendez on 02-19-2025 Glucose [Mass/Vol] 137 mg/dL High 74-106 [facility] Comment on above: MANAGEMENT OF PATIEN T CARE PER NURSING PROTOCOL Bedside Glucoseon 02-18-2025 FINGERSTICK GLU 159 mg/dL High 74-106 [facility] Comment on above: Result Comment: ARACELI GEMENT OF PATIENT CARE PER NURSING PROTOCOL Performed By: #### L 500.2500, L100.0100 #### [facility] [address] [place], [address] FINGERSTICK GLU 292 mg/dL High -106 [facility] Comment on above: Result Comment: ARACELI GEMENT OF PATIENT CARE PER NURSING PROTOCOL Performed By: #### L 101.9900, L500.2500, L100.0100, L501.6710, L501.1400 #### [facility] [address] [place], [address] FINGERSTICK GLU 166 mg/dL High [address] [place] [address] Comment on above: Result Comment: ARACELI GEMENT OF PATIENT CARE PER NURSING PROTOCOL Performed By: #### L 500.2500, L100.0100 #### [facility] [address] [place], [address] FINGERSTICK GLU 153 mg/dL High 74-106 [facility] Comment on above: Result Comment: ARACELI GEMENT OF PATIENT CARE PER NURSING PROTOCOL Performed By: #### L 101.9900, L500.2500, L100.0100, L501.6710, L501.1400 #### [facility] [address] [place], [address] EGD Reporton 02-18-2025 EGD Report [facility] Medical Records Department [address] [place] [address] EGD Report MR#: [id number] Acct: [id number] Name: ANDREW ARNOLD Rep #: [id number] : 1945 79 From: Kali Gar DO PCP: VIVIEN FOREMAN MD Status:REG [facility] Patient Name: Andrew Arnold Procedure Date: 02/18/2025 1:00 PM Date of : 1945 Age: 79 Procedure: Upper GI endoscopy Indications: Iron deficiency anemia, Heme positive stool, Suspected upper gastrointestinal bleeding Providers: Kali Gar DO Medicines: Monitored Anesthesia Care Patient Profile: This is an 79 year old male. Refer to note in patient chart for documentation of history and physical. Patient has symptoms. Complications: No immediate complications. Procedure: Pre-Anesthesia Assessment: - Prior to the procedure, a History and Physical was performed, and patient medications and allergies were reviewed. The patient is competent. The risks and benefits of the procedure and the sedation options and risks were discussed with the patient. All questions were answered and informed consent was obtained. Patient identification and proposed procedure were verified by the physician in the pre-procedure area. Mental Status Examination: alert and oriented. Airway Examination: normal oropharyngeal airway and neck mobility. Respiratory Examination: clear to auscultation. CV Examination: normal. Prophylactic Antibiotics: The patient does not require prophylactic antibiotics. Prior Anticoagulants: The patient has taken no anticoagulant or antiplatelet agents except for NSAID medication. ASA Grade Assessment: II - A patient with mild systemic disease. After reviewing the risks and benefits, the patient was deemed in satisfactory condition to undergo the procedure. The anesthesia plan was to use monitored anesthesia care (MAC). Immediately prior to administration of medications, the patient was re-assessed for adequacy to receive sedatives. The heart rate, respiratory rate, oxygen saturations, blood pressure, adequacy of pulmonary ventilation, and response to care were monitored throughout the procedure. The physical status of the patient was re-assessed after the procedure. After obtaining informed consent, the endoscope was passed under direct vision. Throughout the procedure, the patient's blood pressure, pulse, and oxygen saturations were monitored continuously. The Colonoscope was introduced through the mouth, and advanced to the jejunum. Small bowel enteroscopy was deemed necessary. The upper GI endoscopy was accomplished without difficulty. The patient tolerated the procedure well. Scope In: 1:05:17 PM Scope Out: 1:10:14 PM Total Procedure Duration Time 0 hours 4 minutes 57 seconds Findings: The examined esophagus was normal. One 8 mm angiodysplastic lesion with bleeding was found on the greater curvature of the stomach. Coagulation for bleeding prevention using heater probe was successful. Estimated blood loss was minimal. Many non-bleeding linear gastric ulcers with no stigmata of bleeding were found in the gastric body. The largest lesion was 6 mm in largest dimension. Biopsies were taken with a cold forceps for histology. Verification of patient identification for the specimen was done. Biopsies were taken with a cold forceps for Helicobacter pylori testing. Verification of patient identification for the specimen was done. Estimated blood loss was minimal. No gross lesions were noted in the entire examined duodenum. Impression: - Normal esophagus. 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 Treated with a heater probe. - Non-bleeding gastric ulcers with no stigmata of bleeding. Biopsied. - No gross lesions in the entire examined duodenum. Recommendation: - Discharge patient to home. - Resume previous diet. - Continue present medications. - Await pathology results. -Carafate 1 g 3 times a day for 4 weeks and Protonix 40 mg twice a day for 8 weeks Procedure Code(s): --- Professional --- 78693, 59, Small intestinal endoscopy, enteroscopy beyond second portion of duodenum, not including ileum; with control of bleeding (eg, injection, bipolar cautery, unipolar cautery, laser, heater probe, stapler, plasma rental representative) 63629, 51, Small intestinal endoscopy, enteroscopy beyond second portion of duodenum, not including ileum; with biopsy, single or multiple CPT copyright 2021 [employer]. All rights reserved. The codes documented in this report are preliminary and upon national secretary review may be revised to meet current compliance requirements. Kali Gar DO 02/18/2025 1:18:51 PM This report has been signed electronically. Number of Addenda: 0 Note Initiated On: 02/18/2025 1:00 PM 02/18/25 1318 Date (more content not included)... Normal [facility] deOrdered By: Kali Gar on 02-18-2025 Glucose [Mass/Vol] 292 mg/dL High 74-106 [facility] Comment on above: MANAGEMENT OF PATIEN T CARE PER NURSING PROTOCOL MR/OP.Faisal 02-18-2025 MR/OP.[facility] Medical Records Department [address] [place] [address] Provation Physician Letter MR#: [id number] Acct: [id number] Name: ANDREW ARNOLD Rep #: [id number] : 1945 79 From: Kali Gar DO PCP: VIVIEN FOREMAN MD Status:[facility] 02/18/2025 Vivien Foreman Md Re : Upper GI endoscopy procedure for Andrew Arnold [place] This procedure was performed on Tuesday, February 18, 2025. My impressions and recommendations are as follows: Impressions : - Normal esophagus. 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 Treated with a heater probe. - Non-bleeding gastric ulcers with no stigmata of bleeding. Biopsied. - No gross lesions in the entire examined duodenum. Recommendations : - Discharge patient to home. - Resume previous diet. - Continue present medications. - Await pathology results. -Carafate 1 g 3 times a day for 4 weeks and Protonix 40 mg twice a day for 8 weeks My findings are described in the full procedure note, which is enclosed. If I can be of further assistance, please feel free to contact me at . Sincerely, Kali Gar DO 02/18/2025 1:18:51 PM This report has been signed electronically. 02/18/25 1318 Date Kali Morales Signature: Date (if indicated) CC: VIVIEN FOREMAN MD; Kali Gar DO Date Dictated: 02/18/25 1300 Date Transcribed: Assistant Store Leader: RF Signed [facility] MR/POSTOP.ANEon 02-18-2025 MR/POSTOP.[facility] Medical Records Department [address] [place] [address] Anesthesia Postop Eval I 02/18/25 1320 MR#: [id number] Acct: [id number] Name: ANDREW ARNOLD Rep #: [id number] : 1945 79 From: Anatoliy Mtz PCP: VIVIEN FOREMAN MD Status:REG LESIA Y Race: C Location: [place] [address] Anesthesia: Postop Eval I Current Vital Signs Temperature: 97 F Pulse Rate: 67 Blood Pressure: 99/53 Respiratory Rate: 16 Pulse Ox: 95 Oxygen Delivery Method: Room Air Assessment Airway patent: Yes Spontaneous unlabored respirations: Yes Mental status: Asleep nausea: No Vomiting: No Anesthesia Complication: No Fluid Hydration Crystalloid volume administer (ml): 300 Total IV fluid infused: 300 Progress Note Anesthesia document: Postop Eval 1 completed: Yes 02/18/25 1320 Date Anatoliy Ortizigntariq Signature: Date CC: Signed [facility] MR/[id number] 02-18-2025 [facility] Medical Records Department [address] [place] [address] Anesthesia Postop Eval II 02/18/25 1417 MR#: [id number] Acct: [id number] Name: ANDREW ARNOLD Rep #: [id number] : 1945 79 From: Yun Sapp CRNA PCP: VIVIEN FOREMAN MD Status:REG SDC Y Race: C Location: [address] Anesthesia Postop Eval I Sum Postop Eval Completion status Anesthesia document: Postop Eval 1 completed: Yes Anesthesia Postop Eval I Summary Anesthesia Postop Eval I Summary: Anesthesia Postop Eval I: Assessment Summary Airway patent Yes 02/18/25 13:20 [email or web address] Spontaneous unlabored Yes 02/18/25 13:20 [email or web address] respirations Mental status Asleep 02/18/25 13:20 [email or web address] nausea No 02/18/25 13:20 [email or web address] Vomiting No 02/18/25 13:20 [email or web address] Anesthesia Postop Eval I: Fluid Summary Crystalloid volume administer 300 02/18/25 13:20 [email or web address] (ml) Colloids volume administered ( ml) Blood Product volume administered (ml) Total IV fluid infused 300 02/18/25 13:20 [email or web address] Anesthesia Postop Eval I: Summary Notes Anesthesia Complication No 02/18/25 13:20 [email or web address] Anesthesia Complication Comment: Post-operative progress note Anesthesia: Postop Eval II Evaluation Mental status: Awake and Calm Pain Level: 0 nausea: No Vomiting: No Complications Anesthesia Complication: No 02/18/25 1417 Date Yun Whatley Signature: Date CC: Signed Normal [facility] Bedside Glucoseon 02-17-2025 FINGERSTICK GLU 141 mg/dL High 74-106 [facility] Comment on above: Result Comment: ARACELI FISH OF PATIENT CARE PER NURSING PROTOCOL Performed By: #### L 500.2500, L100.0100 #### [facility] [address] [place], [address] FINGERSTICK GLU 155 mg/dL High 74-106 [facility] Comment on above: Result Comment: ARACELI GEMENT OF PATIENT CARE PER NURSING PROTOCOL Performed By: #### L 500.2500, L100.0100 #### [facility] [address] [place], [address] FINGERSTICK GLU 150 mg/dL High [address] [place] [address] Comment on above: Result Comment: ARACELI GEMENT OF PATIENT CARE PER NURSING PROTOCOL Performed By: #### L 101.9900, L500.2500, L100.0100, L501.6710, L501.1400 #### [facility] [address] [place], [address] FINGERSTICK GLU 238 mg/dL High [address] [place] [address] Comment on above: Result Comment: ARACELI GEMENT OF PATIENT CARE PER NURSING PROTOCOL Performed By: #### L 500.2500, L100.0100 #### [facility] [address] [place], [address] FINGERSTICK GLU 217 mg/dL High [address] [place] [address] Comment on above: Result Comment: ARCAELI GEMENT OF PATIENT CARE PER NURSING PROTOCOL Performed By: #### L 500.2500, L100.0100 #### [facility] [address] [place], [address] Anion gap in Serum or Plasma Ordered By: Gaetano Menendez on 02-16-2025 Anion gap [Moles/Vol] 11 mmol/L 5-15 [facility] BUN/creatinine ratioOrdered By: Gaetano Menendez on 02-16-2025 Urea nitrogen/Creatinine [Mass ratio] 20.4 mg/mg High - [facility] Basic Metabolic Profile (BMP )on 02-16-2025 BUN/CRE 20.4 RATIO High - [facility] Comment on above: Performed By: #### L 101.9900, L500.2500, L100.0100, L501.6710, L501.1400 #### [facility] [address] [place], [address] Calcium [Mass/Vol] 8.9 mg/dL Normal 7.6-11.0 [facility] Comment on above: Performed By: #### L 101.9900, L500.2500, L100.0100, L501.6710, L501.1400 #### [facility] [address] [place], [address] Chloride [Moles/Vol] 97 mmol/L Low 98-108 [facility] Comment on above: Performed By: #### L 101.9900, L500.2500, L100.0100, L501.6710, L501.1400 #### [facility] [address] [place], [address] CO2 [Moles/Vol] 23.4 mmol/L Normal 21.0-32.0 [facility] Comment on above: Performed By: #### L 101.9900, L500.2500, L100.0100, L501.6710, L501.1400 #### [facility] [address] [place], [address] Creatinine [Mass/Vol] 0.99 mg/dL Normal 0.70-1.20 [facility] Comment on above: Performed By: #### L 101.9900, L500.2500, L100.0100, L501.6710, L501.1400 #### [facility] [address] [place], [address] ECRCL 66.11 ml/min Normal 50-250 [facility] Comment on above: Performed By: #### L 101.9900, L500.2500, L100.0100, L501.6710, L501.1400 #### [facility] [address] [place], [address] GAP 11 Normal 5-15 [facility] Comment on above: Performed By: #### L 101.9900, L500.2500, L100.0100, L501.6710, L501.1400 #### [facility] [address] [place], [address] GFR/1.73 sq M.predicted among non-blacks MDRD (S/P/Bld) [Vol rate/Area] 77 mL/min/{1.73_m2} Normal >60 [facility] Comment on above: Result Comment: mL/m in/1.73m2 CKD-EPI Creatinine Equation (2020) Performed By: #### L 101.9900, L500.2500, L100.0100, L501.6710, L501.1400 #### [facility] [address] [place], [address] Glucose [Mass/Vol] 265 mg/dL High 70-99 [facility] Comment on above: Performed By: #### L 101.9900, L500.2500, L100.0100, L501.6710, L501.1400 #### [facility] [address] [place], [address] Potassium [Moles/Vol] 4.5 mmol/L Normal 3.3-5.1 [facility] Comment on above: Performed By: #### L 101.9900, L500.2500, L100.0100, L501.6710, L501.1400 #### [facility] [address] [place], [address] Sodium [Moles/Vol] 132 mmol/L Low 133-145 [facility] Comment on above: Performed By: #### L 101.9900, L500.2500, L100.0100, L501.6710, L501.1400 #### [facility] [address] [place], [address] Urea nitrogen [Mass/Vol] 20 mg/dL High 4-19 [facility] Comment on above: Performed By: #### L 101.9900, L500.2500, L100.0100, L501.6710, L501.1400 #### [facility] [address] [place], [address] Bedside Glucoseon 02-16-2025 FINGERSTICK GLU 225 mg/dL High [address] [place] [address] Comment on above: Result Comment: ARACELI GEMENT OF PATIENT CARE PER NURSING PROTOCOL Performed By: #### L 101.9900, L500.2500, L100.0100, L501.6710, L501.1400 #### [facility] [address] [place], [address] FINGERSTICK GLU 258 mg/dL High [address] [place] [address] Comment on above: Result Comment: ARACELI GEMENT OF PATIENT CARE PER NURSING PROTOCOL Performed By: #### L 500.2500, L100.0100 #### [facility] [address] [place], [address] FINGERSTICK GLU 220 mg/dL High [address] [place] [address] Comment on above: Result Comment: ARACELI GEMENT OF PATIENT CARE PER NURSING PROTOCOL Performed By: #### L 500.2500, L100.0100 #### [facility] [address] [place], [address] FINGERSTICK GLU 248 mg/dL [address] Comment on above: Result Comment: ARACELI GEMENT OF PATIENT CARE PER NURSING PROTOCOL Performed By: #### L 501.080 #### [facility] [address] [place], [address] Carbon dioxide, total [Moles /volume] in Central venous bloodOrdered By: Gaetano Menendez on 02-16-2025 CO2 [Moles/Vol] 23.4 mmol/L 21.0-32.0 [facility] Chloride assayOrdered By: Joseluis Menendez on 02-16-2025 Chloride [Moles/Vol] 97 mmol/L Low 98-108 [facility] Glomerular filtration rate ( GFR) estimation/1.73 sq m using serum, plasma, or whole bOrdered By: Gaetano Menendez on 02-16-2025 GFR/1.73 sq M.predicted among non-blacks MDRD (S/P/Bld) [Vol rate/Area] 77 mL/min/{1.73_m2} >60 [facility] Comment on above: mL/min/1.73m2 CKD-EP I Creatinine Equation (2020) Potassium measurement (mass/ volume)Ordered By: Gaetano Menendez on 02-16-2025 Potassium (Unsp spec) [Mass/Vol] 4.5 mmol/L 3.3-5.1 [facility] Serum creatinine measurement (mass/volume)Ordered By: Gaetano Menendez on 02-16-2025 Creatinine [Mass/Vol] 0.99 mg/dL 0.70-1.20 [facility] Serum glucose measurement (m ass/volume)Ordered By: Gaetano Menendez on 02-16-2025 Glucose [Mass/Vol] 265 mg/dL High 70-99 [facility] Serum or plasma calcium nola urement (mass/volume)Ordered By: Gaetano Menendez on 02-16-2025 Calcium [Mass/Vol] 8.9 mg/dL 7.6-11.0 [facility] Serum or plasma urea nitroge n measurement (mass/volume)Ordered By: Gaetano Menendez on 02-16-2025 Urea nitrogen [Mass/Vol] 20 mg/dL High 4-19 [facility] Sodium levelOrdered By: Gaetano Menendez on 02-16-2025 Sodium [Moles/Vol] 132 mmol/L Low 133-145 [facility] Absolute lymphocyte countOrd ered By: Gaetano Menendez on 02-15-2025 Lymphocytes Auto (Unsp spec) [#/Vol] 1.13 10*3/uL 0.83-4.51 [facility] Absolute neutrophil countOrd ered By: Gaetano Menendez on 02-15-2025 Neutrophils (Bld) [#/Vol] 3.3 10*3/uL 2.0-7.7 [facility] Automated lymphocyte count a s percentage of total leukocytesOrdered By: Gaetano Menendez on 02-15-2025 Lymphocytes/100 WBC Auto (Unsp spec) 21.0 % 19-41 [facility] Basic Metabolic Profile (BMP )on 02-15-2025 BUN/CRE 20.1 RATIO High 10-20 [facility] Comment on above: Performed By: #### L 101.9900, L500.2500, L100.0100, L501.6710, L501.1400 #### [facility] [address] [place], [address] Calcium [Mass/Vol] 8.7 mg/dL Normal 7.6-11.0 [facility] Comment on above: Performed By: #### L 101.9900, L500.2500, L100.0100, L501.6710, L501.1400 #### [facility] [address] [place], [address] Chloride [Moles/Vol] 96 mmol/L Low 98-108 [facility] Comment on above: Performed By: #### L 101.9900, L500.2500, L100.0100, L501.6710, L501.1400 #### [facility] [address] [place], [address] CO2 [Moles/Vol] 23.6 mmol/L Normal 21.0-32.0 [facility] Comment on above: Performed By: #### L 101.9900, L500.2500, L100.0100, L501.6710, L501.1400 #### [facility] [address] [place], [address] Creatinine [Mass/Vol] 1.14 mg/dL Normal 0.70-1.20 [facility] Comment on above: Performed By: #### L 101.9900, L500.2500, L100.0100, L501.6710, L501.1400 #### [facility] [address] [place], [address] ECRCL 57.41 ml/min Normal 50-250 [facility] Comment on above: Performed By: #### L 101.9900, L500.2500, L100.0100, L501.6710, L501.1400 #### [facility] [address] [place], [address] GAP 12 Normal 5-15 [facility] Comment on above: Performed By: #### L 101.9900, L500.2500, L100.0100, L501.6710, L501.1400 #### [facility] [address] [place], [address] GFR/1.73 sq M.predicted among non-blacks MDRD (S/P/Bld) [Vol rate/Area] 65 mL/min/{1.73_m2} Normal >60 [facility] Comment on above: Result Comment: mL/m in/1.73m2 CKD-EPI Creatinine Equation (2020) Performed By: #### L 101.9900, L500.2500, L100.0100, L501.6710, L501.1400 #### [facility] [address] [place], [address] Glucose [Mass/Vol] 243 mg/dL High 70-99 [facility] Comment on above: Performed By: #### L 101.9900, L500.2500, L100.0100, L501.6710, L501.1400 #### [facility] [address] [place], [address] Potassium [Moles/Vol] 4.4 mmol/L Normal 3.3-5.1 [facility] Comment on above: Performed By: #### L 101.9900, L500.2500, L100.0100, L501.6710, L501.1400 #### [facility] [address] [place], [address] Sodium [Moles/Vol] 131 mmol/L Low 133-145 [facility] Comment on above: Performed By: #### L 101.9900, L500.2500, L100.0100, L501.6710, L501.1400 #### [facility] [address] [place], [address] Urea nitrogen [Mass/Vol] 23 mg/dL High 4-19 [facility] Comment on above: Performed By: #### L 101.9900, L500.2500, L100.0100, L501.6710, L501.1400 #### [facility] [address] [place], [address] Basophil percentageOrdered B y: Gaetano Shon on 02-15-2025 Basophils/100 WBC (Bld) 0.9 % 0-1 [facility] Bedside Glucoseon 02-15-2025 FINGERSTICK GLU 183 mg/dL High 74-106 [facility] Comment on above: Result Comment: ARACELI GEMENT OF PATIENT CARE PER NURSING PROTOCOL Performed By: #### L 101.9900, L500.2500, L100.0100, L501.6710, L501.1400 #### [facility] [address] [place], [address] FINGERSTICK GLU 231 mg/dL High 74-106 [facility] Comment on above: Result Comment: ARACELI GEMENT OF PATIENT CARE PER NURSING PROTOCOL Performed By: #### L 101.9900, L500.2500, L100.0100, L501.6710, L501.1400 #### [facility] [address] [place], [address] FINGERSTICK GLU 266 mg/dL High 74-106 [facility] Comment on above: Result Comment: ARACELI GEMENT OF PATIENT CARE PER NURSING PROTOCOL Performed By: #### L 101.9900, L500.2500, L100.0100, L501.6710, L501.1400 #### [facility] [address] [place], [address] FINGERSTICK GLU 229 mg/dL High 74-106 [facility] Comment on above: Result Comment: ARACELI GEMENT OF PATIENT CARE PER NURSING PROTOCOL Performed By: #### L 101.9900, L500.2500, L100.0100, L501.6710, L501.1400 #### [facility] [address] [place], [address] CBC W/Diff, Automatedon 08-0 8-2024 Absolute Lymph 1.13 X10 3/uL Normal 0.83-4.51 [facility] Comment on above: Performed By: #### L 101.9900, L500.2500, L100.0100, L501.6710, L501.1400 #### [facility] [address] [place], [address] Absolute Neut 3.3 X10 3/uL Normal 2.0-7.7 [facility] Comment on above: Performed By: #### L 101.9900, L500.2500, L100.0100, L501.6710, L501.1400 #### [facility] [address] [place], [address] Basophils/100 WBC (Bld) 0.9 % Normal 0-1 [facility] Comment on above: Performed By: #### L 101.9900, L500.2500, L100.0100, L501.6710, L501.1400 #### [facility] [address] [place], [address] Eosinophils/100 WBC (Bld) 5.8 % High 0-5 [facility] Comment on above: Performed By: #### L 101.9900, L500.2500, L100.0100, L501.6710, L501.1400 #### [facility] [address] [place], [address] Erythrocyte distribution width (RBC) [Ratio] 14.9 % High 11.6-14.6 [facility] Comment on above: Performed By: #### L 101.9900, L500.2500, L100.0100, L501.6710, L501.1400 #### [facility] [facility] [address] [place], [address] Hematocrit (Bld) [Volume fraction] 26.2 % Low 40-54 [facility] Comment on above: Performed By: #### L 101.9900, L500.2500, L100.0100, L501.6710, L501.1400 #### [facility] [address] [place], [address] Hemoglobin (Bld) [Mass/Vol] 8.4 g/dL Low 13.0-16.5 [facility] Comment on above: Performed By: #### L 101.9900, L500.2500, L100.0100, L501.6710, L501.1400 #### [facility] [address] [place], [address] IG% 0.700 Normal 0.0-0.9 [facility] Comment on above: Result Comment: IG% - Immature Granulocytes (promyelocytes, myelocytes and metamyelocytes) > 1% indicates that a LEFT SHIFT is Present. Performed By: #### L 101.9900, L500.2500, L100.0100, L501.6710, L501.1400 #### [facility] [address] [place], [address] Lymphocytes/100 WBC (Bld) 21.0 % Normal 19-41 [facility] Comment on above: Performed By: #### L 101.9900, L500.2500, L100.0100, L501.6710, L501.1400 #### [facility] [address] [place], [address] MCH (RBC) [Entitic mass] 27.2 pg Normal 27.0-32.0 [facility] Comment on above: Performed By: #### L 101.9900, L500.2500, L100.0100, L501.6710, L501.1400 #### [facility] [address] [place], [address] MCHC (RBC) [Mass/Vol] 32.1 g/dL Normal 32-36 [facility] Comment on above: Performed By: #### L 101.9900, L500.2500, L100.0100, L501.6710, L501.1400 #### [facility] [address] [place], [address] MCV (RBC) [Entitic vol] 84.8 fL Normal 80-94 [facility] Comment on above: Performed By: #### L 101.9900, L500.2500, L100.0100, L501.6710, L501.1400 #### [facility] [address] [place], [address] Monocytes/100 WBC (Bld) 9.9 % Normal 0-10 [facility] Comment on above: Performed By: #### L 101.9900, L500.2500, L100.0100, L501.6710, L501.1400 #### [facility] [address] [place], [address] Neutrophils/100 WBC (Bld) 61.7 % Normal 47-70 [facility] Comment on above: Performed By: #### L 101.9900, L500.2500, L100.0100, L501.6710, L501.1400 #### [facility] [address] [place], [address] Nucleated RBC (Bld) [#/Vol] 0 10*3/uL Normal 0-5 [facility] Comment on above: Performed By: #### L 101.9900, L500.2500, L100.0100, L501.6710, L501.1400 #### [facility] [address] [place], [address] Platelet mean volume (Bld) [Entitic vol] 8.8 fL Normal 6.2-12.0 [facility] Comment on above: Performed By: #### L 101.9900, L500.2500, L100.0100, L501.6710, L501.1400 #### [facility] [address] [place], [address] Platelets (Bld) [#/Vol] 243 10*3/uL Normal 150-450 [facility] Comment on above: Performed By: #### L 101.9900, L500.2500, L100.0100, L501.6710, L501.1400 #### [facility] [address] [place], [address] RBC (Bld) [#/Vol] 3.09 10*6/uL Low 4.6-6.[address] [facility] Comment on above: Performed By: #### L 101.9900, L500.2500, L100.0100, L501.6710, L501.1400 #### [facility] [address] [place], [address] RDW SD 46.0 fl High 35.1-43.9 [facility] Comment on above: Performed By: #### L 101.9900, L500.2500, L100.0100, L501.6710, L501.1400 #### [facility] [address] [place], [address] WBC (Bld) [#/Vol] 5.4 10*3/uL Normal 4.4-11.0 [facility] Comment on above: Performed By: #### L 101.9900, L500.2500, L100.0100, L501.6710, L501.1400 #### [facility] [address] [place], [address] CRPon 02-15-2025 C-REACTIVE PROT 34.90 mg/L High 0.0-3.0 [facility] Comment on above: Performed By: #### L 101.9900, L500.2500, L100.0100, L501.6710, L501.1400 #### [facility] [address] [place], [address] Eosinophil percentageOrdered By: Gaetano Menendez on 02-15-2025 Eosinophils/100 WBC (Bld) 5.8 % High 0-5 [facility] Erythrocyte Sed Rateon 02-15 SED RATE 47 mm/hr High 0-20 [facility] Comment on above: Performed By: #### L 101.9900, L500.2500, L100.0100, L501.6710, L501.1400 #### [facility] [address] [place], [place], [address] Erythrocyte distribution wid th ratioOrdered By: Gaetano Menendez on 02-15-2025 Erythrocyte distribution width (RBC) [Ratio] 14.9 % High 11.6-14.6 [facility] Erythrocyte distribution wid th standard deviationOrdered By: Gaetano Menendez on 02-15-2025 Erythrocyte distribution width (RBC) [Ratio] 46.0 fl High 35.1-43.9 [facility] Erythrocyte sedimentation ra teOrdered By: Gaetano Menendez 02-15-2025 ESR (Bld) [Velocity] 47 mm/h High 0-20 [facility] Hematocrit Auto (Bld) [Volum e fraction]Ordered By: Gaetano Menendez 02-15-2025 Hematocrit (Bld) [Volume fraction] 26.2 % Low 40-54 [facility] Hemoglobin measurementOrdere d By: Gaetano Menendez 02-15-2025 Hemoglobin (Bld) [Mass/Vol] 8.4 g/dL Low 13.0-16.5 [facility] Immature granulocytes/100 WB C Auto (Bld)Ordered By: Gaetano Menendez on 02-15-2025 Immature granulocytes/100 WBC (Bld) 0.700 % 0.0-0.9 [facility] Comment on above: IG% - Immature Granu locytes (promyelocytes, myelocytes and metamyelocytes) > 1% indicates that a LEFT SHIFT is Present. MCV (mean corpuscular volume ) determinationOrdered By: Gaetano Shon on 02-15-2025 MCV (RBC) [Entitic vol] 84.8 fL 80-94 [facility] Mean corpuscular hemoglobin (MCH) determinationOrdered By: Gaetano Menendez on 02-15-2025 MCH (RBC) [Entitic mass] 27.2 pg 27.0-32.0 [facility] Mean corpuscular hemoglobin concentration (MCHC) determinationOrdered By: Gaetano Menendez on 02-15-2025 MCHC (RBC) [Mass/Vol] 32.1 g/dL 32-36 [facility] Mean platelet volume determi nationOrdered By: Gaetano Menendez on 02-15-2025 Platelet mean volume (Bld) [Entitic vol] 8.8 fL 6.2-12.0 [facility] Monocyte percentageOrdered B y: Gaetano Menendez on 02-15-2025 Monocytes/100 WBC (Bld) 9.9 % 0-10 [facility] Neutrophil percentageOrdered By: Gaetano Menendez on 02-15-2025 Neutrophils/100 WBC (Bld) 61.7 % 47-70 [facility] Nucleated red blood cell per centageOrdered By: Gaetano Menendez on 02-15-2025 Nucleated RBC/100 WBC (Bld) [Ratio] 0 % 0-5 [facility] Platelet countOrdered By: Joseluis Menendez on 02-15-2025 Platelets (Bld) [#/Vol] 243 10*3/uL 150-450 [facility] RBC Auto (Bld) [#/Vol]Ordere d By: Gaetano Menendez on 02-15-2025 RBC (Bld) [#/Vol] 3.09 10*6/uL Low 4.6-6.[address] [facility] Serum or plasma C reactive p rotein measurement (mass/volume)Ordered By: Gaetano Menendez on 02-15-2025 CRP [Mass/Vol] 34.90 mg/L High 0.0-3.0 [facility] White blood cell (WBC) count Ordered By: Gaetano Menendez on 02-15-2025 WBC (Bld) [#/Vol] 5.4 10*3/uL 4.4-11.0 [facility] Basic Metabolic Profile (BMP )on 02-14-2025 BUN/CRE 19.3 RATIO Normal 10-20 [facility] Comment on above: Performed By: #### L 501.860 #### [facility] [address] [place], [address] Calcium [Mass/Vol] 8.5 mg/dL Normal 7.6-11.0 [facility] Comment on above: Performed By: #### L 501.080 #### [facility] [address] [place], [address] Chloride [Moles/Vol] 94 mmol/L Low 98-108 [facility] Comment on above: Performed By: #### L 501.080 #### [facility] [address] [place], [address] CO2 [Moles/Vol] 27.5 mmol/L Normal 21.0-32.0 [facility] Comment on above: Performed By: #### L 501.080 #### [facility] [address] [place], [address] Creatinine [Mass/Vol] 1.23 mg/dL High 0.70-1.20 [facility] Comment on above: Performed By: #### L 501.080 #### [facility] [address] [place], [address] ECRCL 53.21 ml/min Normal 50-250 [facility] Comment on above: Performed By: #### L 501.080 #### [facility] [address] [place], [address] GAP 8 Normal 5-15 [facility] Comment on above: Performed By: #### L 501.080 #### [facility] [address] [place], [address] GFR/1.73 sq M.predicted among non-blacks MDRD (S/P/Bld) [Vol rate/Area] 59 mL/min/{1.73_m2} Low >60 [facility] Comment on above: Result Comment: mL/m in/1.73m2 CKD-EPI Creatinine Equation (2020) Performed By: #### L 501.080 #### [facility] [address] [place], [address] Glucose [Mass/Vol] 177 mg/dL High 70-99 [facility] Comment on above: Performed By: #### L 501.080 #### [facility] [address] [place], [address] Potassium [Moles/Vol] 5.0 mmol/L Normal 3.3-5.1 [facility] Comment on above: Performed By: #### L 501.080 #### [facility] [address] [place], [address] Sodium [Moles/Vol] 130 mmol/L Low 133-145 [facility] Comment on above: Performed By: #### L 501.080 #### [facility] [address] [place], [address] Urea nitrogen [Mass/Vol] 24 mg/dL High 4-19 [facility] Comment on above: Performed By: #### L 501.080 #### [facility] [address] [place], [address] Bedside Glucoseon 02-14-2025 FINGERSTICK GLU 260 mg/dL High 74-106 [facility] Comment on above: Result Comment: ARACELI GEMENT OF PATIENT CARE PER NURSING PROTOCOL Performed By: #### L 101.9900, L500.2500, L100.0100, L501.6710, L501.1400 #### [facility] [address] [place], [address] FINGERSTICK GLU 165 mg/dL High 74-106 [facility] Comment on above: Result Comment: ARACELI GEMENT OF PATIENT CARE PER NURSING PROTOCOL Performed By: #### L 101.9900, L500.2500, L100.0100, L501.6710, L501.1400 #### [facility] [address] [place], [address] FINGERSTICK GLU 135 mg/dL High 74-106 [facility] Comment on above: Result Comment: ARACELI GEMENT OF PATIENT CARE PER NURSING PROTOCOL Performed By: #### L 101.9900, L500.2500, L100.0100, L501.6710, L501.1400 #### [facility] [address] [place], [address] FINGERSTICK GLU 162 mg/dL High 74-106 [facility] Comment on above: Result Comment: ARACELI GEMENT OF PATIENT CARE PER NURSING PROTOCOL Performed By: #### L 101.9900, L500.2500, L100.0100, L501.6710, L501.1400 #### [facility] [address] [place], [address] Basic Metabolic Profile (BMP )on 02-13-2025 BUN/CRE 19.7 RATIO Normal 10-20 [facility] Comment on above: Performed By: #### L 501.080 #### [facility] [address] [place], [address] Calcium [Mass/Vol] 8.4 mg/dL Normal 7.6-11.0 [facility] Comment on above: Performed By: #### L 501.080 #### [facility] [address] [place], [address] Chloride [Moles/Vol] 93 mmol/L Low 98-108 [facility] Comment on above: Performed By: #### L 501.080 #### [facility] [address] [place], [address] CO2 [Moles/Vol] 24.6 mmol/L Normal 21.0-32.0 [facility] Comment on above: Performed By: #### L 501.080 #### [facility] [address] [place], [address] Creatinine [Mass/Vol] 1.31 mg/dL High 0.70-1.20 [facility] Comment on above: Performed By: #### L 501.080 #### [facility] [address] [place] [place], [address] ECRCL 49.35 ml/min Low 50-250 [facility] Comment on above: Performed By: #### L 501.080 #### [facility] [address] [place], [address] GAP 11 Normal 5-15 [facility] Comment on above: Performed By: #### L 501.080 #### [facility] [address] [place], [address] GFR/1.73 sq M.predicted among non-blacks MDRD (S/P/Bld) [Vol rate/Area] 55 mL/min/{1.73_m2} Low >60 [facility] Comment on above: Result Comment: mL/m in/1.73m2 CKD-EPI Creatinine Equation (2020) Performed By: #### L 501.080 #### [facility] [address] [place], [address] Glucose [Mass/Vol] 164 mg/dL High 70-99 [facility] Comment on above: Performed By: #### L 501.080 #### [facility] [address] [place], [address] Potassium [Moles/Vol] 5.1 mmol/L Normal 3.3-5.1 [facility] Comment on above: Performed By: #### L 501.080 #### [facility] [address] [place], [address] Sodium [Moles/Vol] 128 mmol/L Low 133-145 [facility] Comment on above: Performed By: #### L 501.080 #### [facility] [address] [place], [address] Urea nitrogen [Mass/Vol] 26 mg/dL High 4-19 [facility] Comment on above: Performed By: #### L 501.080 #### [facility] [address] [place], [address] Bedside Glucoseon 02-13-2025 FINGERSTICK GLU 127 mg/dL High 74-106 [facility] Comment on above: Result Comment: ARACELI GEMENT OF PATIENT CARE PER NURSING PROTOCOL Performed By: #### L 501.080 #### [facility] [address] [place], [address] FINGERSTICK GLU 242 mg/dL High 74-106 [facility] Comment on above: Result Comment: ARACELI GEMENT OF PATIENT CARE PER NURSING PROTOCOL Performed By: #### L 101.9900, L500.2500, L100.0100, L501.6710, L501.1400 #### [facility] [address] [place], [address] FINGERSTICK GLU 197 mg/dL High 74-106 [facility] Comment on above: Result Comment: ARACELI GEMENT OF PATIENT CARE PER NURSING PROTOCOL Performed By: #### L 101.9900, L500.2500, L100.0100, L501.6710, L501.1400 #### [facility] [address] [place], [address] FINGERSTICK GLU 154 mg/dL High 74-106 [facility] Comment on above: Result Comment: ARACELI GEMENT OF PATIENT CARE PER NURSING PROTOCOL Performed By: #### L 101.9900, L500.2500, L100.0100, L501.6710, L501.1400 #### [facility] [address] [place], [address] FINGERSTICK GLU 133 mg/dL High 74-106 [facility] Comment on above: Result Comment: ARACELI GEMENT OF PATIENT CARE PER NURSING PROTOCOL Performed By: #### L 501.080 #### [facility] [address] [place], [address] HH, Hemoglobin AND Hematocri ton 02-13-2025 Hematocrit (Bld) [Volume fraction] 28.1 % Low 40-54 [facility] Comment on above: Performed By: #### L 101.9900, L500.2500, L100.0100, L501.6710, L501.1400 #### [facility] [address] [place], [address] Hemoglobin (Bld) [Mass/Vol] 8.8 g/dL Low 13.0-16.5 [facility] Comment on above: Performed By: #### L 101.9900, L500.2500, L100.0100, L501.6710, L501.1400 #### [facility] [address] [place], [address] Osmolality urOrdered By: Gaetano Menendez on 02-13-2025 Osmolality (U) [Osmolality] 416 mOsm/KG >50 [facility] Comment on above: Normal Urine Referen ce Ranges Random: 50 - 1200 mOsm/kg H20 depending on fluid intake Random: >850 mOsm/kg after 12 hour fluid restriction 24 hour: ~300 - 900 mOsm/kg H2O Osmolality, Serumon 02-14-20 25 OSMOLALITY,SER 291 mOsm/KG Normal 280-301 [facility] Comment on above: Performed By: #### L 101.9900, L500.2500, L100.0100, L501.6710, L501.1400 #### [facility] [address] [place], [address] Osmolality, Urineon 02-14-20 25 OSMOLALITY,UR 416 mOsm/KG Normal [facility] Comment on above: Result Comment: Normal Urine Reference Ranges Random: 50 - 1200 mOsm/kg H20 depending on fluid intake Random: >850 mOsm/kg after 12 hour fluid restriction 24 hour: 300 - 900 mOsm/kg H2O Performed By: #### L 501.080 #### [facility] [address] [place], [address] Urine sodium measurement (mo les/volume)Ordered By: Gaetano Menendez on 02-13-2025 Sodium (U) [Moles/Vol] 28 mmol/L Normal Not Establ. [facility] Comment on above: Performed By: #### L 101.9900, L500.2500, L100.0100, L501.6710, L501.1400 #### [facility] [address] [place], [address] Basic Metabolic Profile (BMP )on 02-12-2025 BUN/CRE 14.4 RATIO Normal 10-20 [facility] Comment on above: Performed By: #### L 501.080 #### [facility] [address] [place], [address] Calcium [Mass/Vol] 8.5 mg/dL Normal 7.6-11.0 [facility] Comment on above: Performed By: #### L 501.080 #### [facility] [address] [place], [address] Chloride [Moles/Vol] 97 mmol/L Low 98-108 [facility] Comment on above: Performed By: #### L 501.080 #### [facility] [address] [place], [address] CO2 [Moles/Vol] 28.1 mmol/L Normal 21.0-32.0 [facility] Comment on above: Performed By: #### L 501.080 #### [facility] [address] [place], [address] Creatinine [Mass/Vol] 1.44 mg/dL High 0.70-1.20 [facility] Comment on above: Performed By: #### L 501.080 #### [facility] [address] [place], [address] ECRCL 44.90 ml/min Low 50-250 [facility] Comment on above: Performed By: #### L 501.080 #### [facility] [address] [place], [address] GAP 10 Normal 5-15 [facility] Comment on above: Performed By: #### L 501.080 #### [facility] [address] [place], [address] GFR/1.73 sq M.predicted among non-blacks MDRD (S/P/Bld) [Vol rate/Area] 49 mL/min/{1.73_m2} Low >60 [facility] Comment on above: Result Comment: mL/m in/1.73m2 CKD-EPI Creatinine Equation (2020) Performed By: #### L 501.080 #### [facility] [address] [place], [address] Glucose [Mass/Vol] 169 mg/dL High 70-99 [facility] Comment on above: Performed By: #### L 501.080 #### [facility] [address] [place], [address] Potassium [Moles/Vol] 5.0 mmol/L Normal 3.3-5.1 [facility] Comment on above: Performed By: #### L 501.080 #### [facility] [address] [place], [address] Sodium [Moles/Vol] 134 mmol/L Normal 133-145 [facility] Comment on above: Performed By: #### L 501.080 #### [facility] [address] [place], [address] Urea nitrogen [Mass/Vol] 21 mg/dL High 4-19 [facility] Comment on above: Performed By: #### L 501.080 #### [facility] [address] [place], [address] Bedside Glucoseon 02-12-2025 FINGERSTICK GLU 59 mg/dL Low 74-106 [facility] Comment on above: Result Comment: ARACELI GEMENT OF PATIENT CARE PER NURSING PROTOCOL Performed By: #### L 101.9900, L500.2500, L100.0100, L501.6710, L501.1400 #### [facility] [address] [place], [address] FINGERSTICK GLU 66 mg/dL Low 74-106 [facility] Comment on above: Result Comment: ARACELI GEMENT OF PATIENT CARE PER NURSING PROTOCOL Performed By: #### L 501.080 #### [facility] [address] [place], [address] FINGERSTICK GLU 55 mg/dL Low 74-106 [facility] Comment on above: Result Comment: ARACELI GEMENT OF PATIENT CARE PER NURSING PROTOCOL Performed By: #### L 501.080 #### [facility] [address] [place], [address] FINGERSTICK GLU 74 mg/dL Normal 74-106 [facility] Comment on above: Result Comment: ARACELI GEMENT OF PATIENT CARE PER NURSING PROTOCOL Performed By: #### L 101.9900, L500.2500, L100.0100, L501.6710, L501.1400 #### [facility] [address] [place], [address] FINGERSTICK GLU 157 mg/dL High 74-106 [facility] Comment on above: Result Comment: ARACELI GEMENT OF PATIENT CARE PER NURSING PROTOCOL Performed By: #### L 101.9900, L500.2500, L100.0100, L501.6710, L501.1400 #### [facility] [address] [place], [address] Stool Occult Blood iFOBon STOB Positive Normal [facility] Comment on above: Performed By: #### L 101.9900, L500.2500, L100.0100, L501.6710, L501.1400 #### [facility] [address] [place], [address] Stool gastrointestinal hemog lobin detection by immunologic methodOrdered By: Gaetano Menendez on 02-12-2025 Lower GI hemoglobin IA Ql (Stl) Positive Abnormal [facility] Bedside Glucoseon 02-11-2025 FINGERSTICK GLU 167 mg/dL High 74-106 [facility] Comment on above: Result Comment: ARACELI GEMENT OF PATIENT CARE PER NURSING PROTOCOL Performed By: #### L 101.9900, L500.2500, L100.0100, L501.6710, L501.1400 #### [facility] [address] [place], [address] FINGERSTICK GLU 189 mg/dL High 74-106 [facility] Comment on above: Result Comment: ARACELI GEMENT OF PATIENT CARE PER NURSING PROTOCOL Performed By: #### L 101.9900, L500.2500, L100.0100, L501.6710, L501.1400 #### [facility] [address] [place], [address] FINGERSTICK GLU 100 mg/dL Normal -106 [facility] Comment on above: Result Comment: ARACELI GEMENT OF PATIENT CARE PER NURSING PROTOCOL Performed By: #### L 501.080 #### [facility] [address] [place], [address] FINGERSTICK GLU 190 mg/dL High 74-106 [facility] Comment on above: Result Comment: ARACELI GEMENT OF PATIENT CARE PER NURSING PROTOCOL Performed By: #### L 501.080 #### [facility] [address] [place], [address] Consultation - Infectious Dx on 02-11-2025 Consultation - Infectious Dx [facility] Medical Records Department [address] [place] [address] Consultation - Infectious Dx 02/11/25 1130 MR#: [id number] Acct: [id number] Name: ANDREW ARNOLD Rep #: [id number] : 1945 79 From: Nik Snyder MD PCP: Care Physician,No Primary Status:ADM IN Location: TCU TC22-1 Assessment Plan Assessment/Plan (1) Abscess of left hand: (2) Streptococcal bacteremia: PLAN: Reviewed [facility] records. Overall much improved. Ceftriaxone until 02/27, fluconazole until 02/20. Will follow, thank you (3) Esophageal candidiasis: HPI Consult Data Date of Consult: 02/11/25 HPI Narrative Reason for Consultation: hand infection HPI Narrative: ANDREW ARNOLD, is a 79 M who presented to [facility] 01/28/25 with several days worsening L hand pain, redness, swelling after ganglion cyst removal. Had associated fever and chills. Admitted with septic shock, started on vanc/zosyn/clinda. Also with DKA at that time. Seen by ID (Dr. Norman). Taken to OR 02/01 for I D. Bcx with GBS. Picc placed. EGD showed esophagitis. Discharged to TCU on ceftriaxone and po fluc. Feeling better, no issues with picc, hand much improved, no n/v/d. Full ROS performed and neg except as noted above. [facility] Medical History History of subdural hematoma TIA (transient ischemic attack) Essential (primary) hypertension Mood disorder Type 2 diabetes mellitus with hyperglycemia Atrial fibrillation Coronary artery disease Blood in stool BPH (benign prostatic hyperplasia) Urinary retention Cellulitis of left hand Abscess of left hand Acute heart failure with preserved ejection fraction (HFpEF) Transaminitis Acute kidney injury Demand ischemia Elevated troponin Diabetic ketoacidosis Acute encephalopathy Streptococcal bacteremia Septic shock Debility Home Medications ???Medication ???Instructions ???Recorded ???Last Taken ???Type apixaban 5 mg tablet (Eliquis) 5 mg PO BID blood thinner 02/09/25 Unknown History ascorbic acid (vitamin C) 500 mg 500 mg PO .every other day 5 Unknown History capsule supplement aspirin 81 mg tablet 81 mg PO DAILY heart 02/09/25 Unkn own History bumetanide 1 mg tablet 0.5 mg PO QODAY diuretic 02/09/25 Unknown History ceftriaxone 2 gram intravenous 2 g IV DAILY infection 02/09/25 Un known History solution docusate sodium 100 mg capsule 100 mg PO BID bowel 02/09/25 Unkno wn History escitalopram oxalate 10 mg tablet 10 mg PO QHS mood 02/09/25 Unknow n History fluconazole 200 mg tablet 200 mg PO DAILY infection 02/09/25 Unknown History insulin glargine 100 unit/mL 5 unit subcut QHS diabetes 5 Unknown History subcutaneous solution (Lantus U-100 Insulin) lisinopril 5 mg tablet 5 mg PO DAILY heart health 5 Unknown History metoprolol succinate 25 mg 25 mg PO DAILY heart health Unknown History tablet,extended release 24 hr pantoprazole 40 mg tablet,delayed 40 mg PO BID stomach 02/09/25 Unk nown History release potassium chloride 10 mEq 10 meq PO QODAY supplement 5 Unknown History tablet,extended release sennosides 8.6 mg-docusate sodium 1 tab-cap PO BID bowel 02/09/25 U nknown History 50 mg tablet (Senna with Docusate Sodium) simvastatin 40 mg tablet 40 mg PO QHS cholesterol 02/09/25 Unknown History tamsulosin 0.4 mg capsule 0.4 mg PO .After evening meal 09/04 Unknown History prostate Allergy/AdvReac Type Severity Reaction Status Date / Time pioglitazone (From Actos) AdvReac Other Verified 02/09/25 19:11 Family History Mother COPD (chronic obstructive pulmonary disease) Father Diabetes Grandmother CVA (cerebral vascular accident) Surgical History Status post de Quervain release surgery History of oral cancer History of cardiac cath 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 Gaetano Menendez MD) household members: significant other and other details: Sister in law Smoking Status: Former smoker Smokeless tobacco user: chewing tobacco alcohol intake: never substance use type: does not use Physical Exam Const alert and no apparent distress General Appearance: cooperative HEENT normocephalic and head/scalp atraumatic Eyes PERRL and EOMs intact bilaterally Neck supple and No nodes Resp normal air movement and clear to auscultation bilaterally Cardio regular rate and regular rhythm GI soft to palpation, non-tender and non-distended Extremity General Extremity: Negative for edema Skin no rashes or lesions noted Skin Narrative: L hand wrapped, minimal swelling, no (more content not included)... Normal [facility] BRCon 02-10-2025 Normal [facility] Comment on above: Result Comment: [id number] AP RC TRANSFUSED 02/12/25 1102 [id number] AP TRANSFUSED 02/12/25 0846 Performed By: #### L 101.9900, L500.2500, L100.0100, L501.6710, L501.1400 #### [facility] [address] [place], [address] Basic Metabolic Profile (BMP )on 02-10-2025 BUN/CRE 10.9 RATIO Normal 10-20 [facility] Comment on above: Performed By: #### L 500.2500, L100.0100 #### [facility] [address] [place], [address] Calcium [Mass/Vol] 8.5 mg/dL Normal 7.6-11.0 [facility] Comment on above: Performed By: #### L 500.2500, L100.0100 #### [facility] [address] [place], [address] Chloride [Moles/Vol] 95 mmol/L Low 98-108 [facility] Comment on above: Performed By: #### L 500.2500, L100.0100 #### [facility] [address] [place], [address] CO2 [Moles/Vol] 25.6 mmol/L Normal 21.0-32.0 [facility] Comment on above: Performed By: #### L 500.2500, L100.0100 #### [facility] [address] [place], [address] Creatinine [Mass/Vol] 1.06 mg/dL Normal 0.70-1.20 [facility] Comment on above: Performed By: #### L 500.2500, L100.0100 #### [facility] [address] [place], [address] ECRCL 60.99 ml/min Normal 50-250 [facility] Comment on above: Performed By: #### L 500.2500, L100.0100 #### [facility] [address] [place], [address] GAP 11 Normal 5-15 [facility] Comment on above: Performed By: #### L 500.2500, L100.0100 #### [facility] [address] [place], [address] GFR/1.73 sq M.predicted among non-blacks MDRD (S/P/Bld) [Vol rate/Area] 71 mL/min/{1.73_m2} Normal >60 [facility] Comment on above: Result Comment: mL/m in/1.73m2 CKD-EPI Creatinine Equation (2020) Performed By: #### L 500.2500, L100.0100 #### [facility] [address] [place], [address] Glucose [Mass/Vol] 204 mg/dL High 70-99 [facility] Comment on above: Performed By: #### L 500.2500, L100.0100 #### [facility] [address] [place], [address] Potassium [Moles/Vol] 3.9 mmol/L Normal 3.3-5.1 [facility] Comment on above: Performed By: #### L 500.2500, L100.0100 #### [facility] [address] [place], [address] Sodium [Moles/Vol] 132 mmol/L Low 133-145 [facility] Comment on above: Performed By: #### L 500.2500, L100.0100 #### [facility] [address] [place], [address] Urea nitrogen [Mass/Vol] 12 mg/dL Normal 4-19 [facility] Comment on above: Performed By: #### L 500.2500, L100.0100 #### [facility] [address] [place], [address] Bedside Glucoseon 02-10-2024 FINGERSTICK GLU 317 mg/dL High 74-106 [facility] Comment on above: Result Comment: ARACELI GEMENT OF PATIENT CARE PER NURSING PROTOCOL Performed By: #### L 501.080 #### [facility] [address] [place], [address] FINGERSTICK GLU 349 mg/dL High 74-106 [facility] Comment on above: Result Comment: ARACELI GEMENT OF PATIENT CARE PER NURSING PROTOCOL Performed By: #### L 101.9900, L500.2500, L100.0100, L501.6710, L501.1400 #### [facility] [address] [place], [address] FINGERSTICK GLU 198 mg/dL High 74-106 [facility] Comment on above: Result Comment: ARACELI GEMENT OF PATIENT CARE PER NURSING PROTOCOL Performed By: #### L 501.080 #### [facility] [address] [place], [address] CBC W/Diff, Automatedon 08-0 Absolute Lymph 1.57 X10 3/uL Normal 0.83-4.51 [facility] Comment on above: Performed By: #### L 500.2500, L100.0100 #### [facility] [address] [place], [address] Absolute Neut 6.1 X10 3/uL Normal 2.0-7.7 [facility] Comment on above: Performed By: #### L 500.2500, L100.0100 #### [facility] [address] [place], [address] Basophils/100 WBC (Bld) 0.7 % Normal 0-1 [facility] Comment on above: Performed By: #### L 500.2500, L100.0100 #### [facility] [address] [place], [address] Eosinophils/100 WBC (Bld) 1.6 % Normal 0-5 [facility] Comment on above: Performed By: #### L 500.2500, L100.0100 #### [facility] [address] [place], [address] Erythrocyte distribution width (RBC) [Ratio] 14.5 % Normal 11.6-14.6 [facility] Comment on above: Performed By: #### L 500.2500, L100.0100 #### [facility] [address] [place], [address] Hematocrit (Bld) [Volume fraction] 23.3 % Low 40-54 [facility] Comment on above: Performed By: #### L 500.2500, L100.0100 #### [facility] [address] [place], [address] Hemoglobin (Bld) [Mass/Vol] 7.5 g/dL Low 13.0-16.5 [facility] Comment on above: Performed By: #### L 500.2500, L100.0100 #### [facility] [address] [place], [address] IG% 1.100 High 0.0-0.9 [facility] Comment on above: Result Comment: IG% - Immature Granulocytes (promyelocytes, myelocytes and metamyelocytes) > 1% indicates that a LEFT SHIFT is Present. Performed By: #### L 500.2500, L100.0100 #### [facility] [address] [place], [address] Lymphocytes/100 WBC (Bld) 18.0 % Low 19-41 [facility] Comment on above: Performed By: #### L 500.2500, L100.0100 #### [facility] [address] [place], [address] MCH (RBC) [Entitic mass] 26.4 pg Low 27.0-32.0 [facility] Comment on above: Performed By: #### L 500.2500, L100.0100 #### [facility] [address] [place], [address] MCHC (RBC) [Mass/Vol] 32.2 g/dL Normal 32-36 [facility] Comment on above: Performed By: #### L 500.2500, L100.0100 #### [facility] [address] [place], [address] MCV (RBC) [Entitic vol] 82.0 fL Normal 80-94 [facility] Comment on above: Performed By: #### L 500.2500, L100.0100 #### [facility] [address] [place], [address] Monocytes/100 WBC (Bld) 9.0 % Normal 0-10 [facility] Comment on above: Performed By: #### L 500.2500, L100.0100 #### [facility] [address] [place], [address] Neutrophils/100 WBC (Bld) 69.6 % Normal 47-70 [facility] Comment on above: Performed By: #### L 500.2500, L100.0100 #### [facility] [address] [place], [address] Nucleated RBC (Bld) [#/Vol] 0 10*3/uL Normal 0-5 [facility] Comment on above: Performed By: #### L 500.2500, L100.0100 #### [facility] [address] [place], [address] Platelet mean volume (Bld) [Entitic vol] 8.4 fL Normal 6.2-12.0 [facility] Comment on above: Performed By: #### L 500.2500, L100.0100 #### [facility] [address] [place], [address] Platelets (Bld) [#/Vol] 346 10*3/uL Normal 150-450 [facility] Comment on above: Performed By: #### L 500.2500, L100.0100 #### [facility] [address] [place], [address] RBC (Bld) [#/Vol] 2.84 10*6/uL Low 4.6-6.[address] [facility] Comment on above: Performed By: #### L 500.2500, L100.0100 #### [facility] [address] [place], [address] RDW SD 42.7 fl Normal 35.1-43.9 [facility] Comment on above: Performed By: #### L 500.2500, L100.0100 #### [facility] [address] [place], [address] WBC (Bld) [#/Vol] 8.7 10*3/uL Normal 4.4-11.0 [facility] Comment on above: Performed By: #### L 500.2500, L100.0100 #### [facility] [address] [place], [address] Chest 1 View (Portable)on Chest 1 View (Portable) [facility] Imaging Services [address] [place] [address] Chest 1 View (Portable) MR#: [id number] Acct: [id number] Name: ANDREW ARNOLD Rep #: [id number] : 1945 M 79 From: Petey Andersen DO PCP: Care Physician,No Primary Status: ADM IN Study: Chest 1 View (Portable) Date of Exam: 02/10/25 Exam# [id number] Ordering Dr: Gaetano Menendez MD PROCEDURE: CHEST 1 VIEW (PORTABLE) 02/10/2025 REASON FOR EXAM: PICC PLACEMENT TECHNIQUE: Frontal view of the chest. COMPARISON: None. FINDINGS: Hardware: Right-sided PICC line tip is seen near the cavoatrial junction. Heart: Normal size Lungs: Grossly clear Bones: No aggressive process. Other: RAD/Chest 1 View (Portable) IMPRESSION: PICC line in satisfactory position. No acute process in the chest. Reading [facility] CC: Dr. Gaetano Menendez MD; No Primary Care Physician Assistant Store Leader: Signed Normal [facility] Hemoglobin A1con 02-10-2025 HbA1c (Bld) [Mass fraction] 8.3 % High <=5.6 [facility] Comment on above: Result Comment: Norm al < 5.7 % Prediabetic 5.7 - 6.4 % Diabetic >or= 6.5 % Please note range changes. Performed By: #### L 501.080 #### [facility] [address] [place] [address], [address] Hemoglobin A1c percentageOrd ered By: Gaetano Menendez on 02-10-2025 HbA1c (Bld) [Mass fraction] 8.3 % High <5.7 [facility] Comment on above: Normal < 5.7 % Predi abetic 5.7 - 6.4 % Diabetic >or= 6.5 % Please note range changes. Iron measurement (mass/mass) Ordered By: Gaetano Menendez on 02-10-2025 Iron (Unsp spec) [Mass/Mass] 23 ug/dL Low 65-175 [facility] Iron+Iron Binding Capacityon 02-10-2025 TIBC 228 ug/dL Low 250-450 [facility] Comment on above: Performed By: #### L 101.9900, L500.2500, L100.0100, L501.6710, L501.1400 #### [facility] [address] [place], [address] No Panel InformationOrdered By: Gaetano Menendez on 02-10-2025 Unsaturated Iron Binding Capacity 205 ug/dL Low 228-428 [facility] Serum or plasma iron saturat ion measurement (mass fraction)Ordered By: Gaetano Menendez on 02-10-2025 Iron saturation [Mass fraction] 10.1 % 9-55 [facility] Comment on above: Previous reported re sult: 10.0 %Edited by: McKinstry ReklaimONER on 02/10/25:1359 Type AND Screenon 02-10-2025 Ab SCREEN GEL Negative Normal [facility] Comment on above: Order Comment: CMV N EG? NNumber of units to transfuse: 2Reason for Ordering Blood: AcuteAre the blood/blood products to be transfused? YIs the patient having/had surgery? NWhen Ale Performed By: #### L 101.9900, L500.2500, L100.0100, L501.6710, L501.1400 #### [facility] [address] [place], [address] BASIC METABOLIC PANELon Anion gap [Moles/Vol] 15 mmol/L Normal 10-20 [facility] Comment on above: Order Comment: [facility] has implemented the eGFR calculation approach that does not have a coefficient for race that conforms to the NKF-ASN Task Force Recommendations. Performed By: #### 4 6124 #### LAB [address] [place], [place] [address] Yusuf Villaseñor M.D. [id number] Calcium [Mass/Vol] 8.6 mg/dL Normal 8.4-10.2 [facility] Comment on above: Order Comment: [facility] has implemented the eGFR calculation approach that does not have a coefficient for race that conforms to the NKF-ASN Task Force Recommendations. Performed By: #### 4 6143 ####[facility] [address] [place], [place] [address] Yusuf Villaseñor M.D. [id number] Chloride [Moles/Vol] 95 mmol/L Low 98-108 [facility] Comment on above: Order Comment: [facility] has implemented the eGFR calculation approach that does not have a coefficient for race that conforms to the NKF-ASN Task Force Recommendations. Performed By: #### 4 6124 #### LAB [address] [place] [address] Yusuf Villaseñor M.D. [id number] Creatinine [Mass/Vol] 1.19 mg/dL Normal 0.80-1.30 [facility] Comment on above: Order Comment: [facility] has implemented the eGFR calculation approach that does not have a coefficient for race that conforms to the NKF-ASN Task Force Recommendations. Performed By: #### 4 6124 #### [facility] [address] [place] [address] Yusuf Villaseñor M.D. [id number] EGFR 62 mL/min/1.73 m2 Normal >=60 [facility] Comment on above: Order Comment: [facility] has implemented the eGFR calculation approach that does not have a coefficient for race that conforms to the NKF-ASN Task Force Recommendations. Result Comment: Aide mated GFR was calculated using the 2020 CKD-EPI creatinine equation. Performed By: #### 4 6124 #### [facility] [address] [place] [address] Yusuf Villaseñor M.D. [id number] Glucose [Mass/Vol] 142 mg/dL High 65-99 [facility] Comment on above: Order Comment: [facility] has implemented the eGFR calculation approach that does not have a coefficient for race that conforms to the NKF-ASN Task Force Recommendations. Performed By: #### 4 6124 #### [facility] [address] [place] [address] Yusuf Villaseñor M.D. [id number] HCO3 (Bld) [Moles/Vol] 25 mmol/L Normal 21-32 [facility] Comment on above: Order Comment: [facility] has implemented the eGFR calculation approach that does not have a coefficient for race that conforms to the NKF-ASN Task Force Recommendations. Performed By: #### 4 6124 #### LAB [address] [place] [address] Yusuf Villaseñor M.D. [id number] Potassium [Moles/Vol] 4.0 mmol/L Normal 3.5-5.1 [facility] Comment on above: Order Comment: [facility] has implemented the eGFR calculation approach that does not have a coefficient for race that conforms to the NKF-ASN Task Force Recommendations. Performed By: #### 4 6124 #### LAB [address] [place] [address] Yusuf Villaseñor M.D. [id number] Sodium [Moles/Vol] 131 mmol/L Low 135-145 [facility] Comment on above: Order Comment: [facility] has implemented the eGFR calculation approach that does not have a coefficient for race that conforms to the NKF-ASN Task Force Recommendations. Performed By: #### 4 6124 #### [facility] [address] [place] [address] Yusuf Villaseñor M.D. [id number] Urea nitrogen [Mass/Vol] 11 mg/dL Normal 8-25 [facility] Comment on above: Order Comment: [facility] has implemented the eGFR calculation approach that does not have a coefficient for race that conforms to the NKF-ASN Task Force Recommendations. Performed By: #### 4 6124 #### LAB [address] [place] [address] Yusuf Villaseñor M.D. [id number] Urea nitrogen/Creatinine [Mass ratio] 9.2 mg/mg Low 10.0-20.0 [facility] Comment on above: Order Comment: [facility] has implemented the eGFR calculation approach that does not have a coefficient for race that conforms to the NKF-ASN Task Force Recommendations. Performed By: #### 4 6124 #### LAB [address] [place] [address] Yusuf Villaseñor M.D. [id number] Bacteria identified Cx Nom ( Bld)on 02-09-2025 Interpretation and review of laboratory results Normal [facility] Basic metabolic 2000 panelon 02-09-2025 Anion gap [Moles/Vol] 15 mmol/L 10 - 2 0 mmol/L [facility] Calcium [Mass/Vol] 8.6 mg/dL 8.4 - 10. 2 mg/dL [facility] Chloride [Moles/Vol] 95 mmol/L Low 98 - 10 8 mmol/L [facility] Creatinine [Mass/Vol] 1.19 mg/dL 0.80 - 1.30 mg/dL [facility] GFR/1.73 sq M.predicted CKD-EPI (S/P/Bld) [Vol rate/Area] 62 - PINF [facility] Glucose [Mass/Vol] 142 mg/dL High 65 - 99 mg/dL [place] HCO3 [Moles/Vol] 25 mmol/L 21 - 32 mmol/L [facility] Potassium [Moles/Vol] 4 mmol/L 3.5 - 5.1 mmol/L [facility] Sodium [Moles/Vol] 131 mmol/L Low 135 - 145 mmol/L [facility] Urea nitrogen [Mass/Vol] 11 mg/dL 8 - 25 mg/dL [facility] Urea nitrogen/Creatinine [Mass ratio] 9.2 mg/mg Low 10.0 - 20.0 [facility] Bedside Glucoseon 02-09-2025 FINGERSTICK GLU 271 mg/dL High 74-106 [facility] Comment on above: Result Comment: ARACELI FISH OF PATIENT CARE PER NURSING PROTOCOL Performed By: #### L 101.9900, L500.2500, L100.0100, L501.6710, L501.1400 #### [facility] [address] [place], [address] CBC Auto Differentialon Basophils (Bld) [#/Vol] 0.04 10*3/uL [facility] Basophils/100 WBC (Bld) 0.4 % [facility] Eosinophils (Bld) [#/Vol] 0.2 10*3/uL [facility] Eosinophils/100 WBC (Bld) 1.8 % [facility] Erythrocyte distribution width (RBC) [Entitic vol] 14.6 % 11.6 - 14.8 % [facility] Hematocrit (Bld) [Volume fraction] 24.4 % Low 41.0 - 53.0 % [facility] Hemoglobin (Bld) [Mass/Vol] 7.6 g/dL Low 13.5 - 17.5 g/dL [facility] Immature granulocytes (Bld) [#/Vol] 0.21 10*3/uL [facility] Immature granulocytes/100 WBC (Bld) 1.9 % [facility] Interpretation and review of laboratory results Abnormal [facility] Lymphocytes (Bld) [#/Vol] 1.81 10*3/uL [facility] Lymphocytes/100 WBC (Bld) 16 % [facility] MCH (RBC) [Entitic mass] 26 pg 26.0 - 34.0 pg [facility] MCHC (RBC) [Mass/Vol] 31.1 g/dL 31.0 - 37.0 g/dL [facility] MCV (RBC) [Entitic vol] 83.6 fL 80.0 - 100.0 fL [facility] Monocytes (Bld) [#/Vol] 0.78 10*3/uL [facility] Monocytes/100 WBC (Bld) 6.9 % [facility] Neutrophils (Bld) [#/Vol] 8.26 10*3/uL High [facility] Neutrophils/100 WBC (Bld) 73 % [facility] Nucleated RBC (Bld) [#/Vol] 0 10*3/uL [facility] Nucleated RBC/100 WBC (Bld) [Ratio] 0 % [facility] Platelet mean volume (Bld) [Entitic vol] 8.5 fL Low 9.4 - 12.4 fL [facility] Platelets (Bld) [#/Vol] 325 10*3/uL [facility] RBC (Bld) [#/Vol] 2.92 10*6/uL Low [facility] WBC (Bld) [#/Vol] 11.3 10*3/uL High [facility] CBC WITH AUTO DIFFERENTIALon 02-09-2025 AUTO NRBC 0.0 % Normal [facility] Comment on above: Performed By: #### L [id number] ####[facility] [address] [place], [place] [address] Yusuf Villaseñor M.D. [id number] AUTO NRBC ABS COUNT 0.00 K/mcL Normal 0.00-0.00 [facility] Comment on above: Performed By: #### L [id number] #### LAB [address] [place] [address] Yusuf Villaseñor M.D. [id number] BASOPHILS ABSOLUTE COUNT 0.04 K/mcL Normal 0.00-0.30 [facility] Comment on above: Performed By: #### L [id number] #### [facility] [address] [place] [address] Yusuf Villaseñor M.D. [id number] Basophils/100 WBC (Bld) 0.4 % Normal [facility] Comment on above: Performed By: #### L [id number] #### [facility] [address] [place] [address] Yusuf Villaseñor M.D. [id number] Eosinophils (Bld) [#/Vol] 0.20 10*3/uL Normal 0.00-0.50 [facility] Comment on above: Performed By: #### L [id number] #### [facility] [address] [place] [address] Yusuf Villaseñor M.D. [id number] Eosinophils/100 WBC (Bld) 1.8 % Normal [facility] Comment on above: Performed By: #### L [id number] #### LAB [address] [place] [address] Yusuf Villaseñor M.D. [id number] Erythrocyte distribution width (RBC) [Ratio] 14.6 % Normal 11.6-14.8 [facility] Comment on above: Performed By: #### L [id number] #### LAB [address] [address] Yusuf Villaseñor M.D. [id number] Hematocrit (Bld) [Volume fraction] 24.4 % Low 41.0-53.0 [facility] Comment on above: Performed By: #### L [id number] #### LAB [address] [place] [address] Yusuf Villaseñor M.D. [id number] Hemoglobin (Bld) [Mass/Vol] 7.6 g/dL Low 13.5-17.5 [facility] Comment on above: Performed By: #### L [id number] #### LAB [address] [address] Yusuf Villaseñor M.D. [id number] IG ABSOLUTE 0.21 K/mcL Normal 0.00-0.30 [facility] Comment on above: Performed By: #### L [id number] #### LAB [address] [address] Yusuf Villaseñor M.D. [id number] IG PERCENT 1.90 % [facility] Comment on above: Result Comment: The IG parameter is the percentage of metamyelocytes, myelocytes and promyelocytes. An immature granulocyte count (IG) of 1% or more suggests the possibility of infection, an IG count of 3% is very likely related to an infection. Performed By: #### L [id number] #### LAB [address] [address] Yusuf Villaseñor M.D. [id number] Lymphocytes (Bld) [#/Vol] 1.81 10*3/uL Normal 0.90-4.00 [facility] Comment on above: Performed By: #### L [id number] #### LAB [address] [address] Yusuf Villaseñor M.D. [id number] Lymphocytes/100 WBC (Bld) 16.0 % Normal [facility] Comment on above: Performed By: #### L [id number] #### LAB [address] [address] Yusuf Villaseñor M.D. [id number] MCH (RBC) [Entitic mass] 26.0 pg Normal 26.0-34.0 [facility] Comment on above: Performed By: #### L [id number] #### LAB [address] [address] Yusuf Villaseñor M.D. [id number] MCV (RBC) [Entitic vol] 83.6 fL Normal 80.0-100.0 [facility] Comment on above: Performed By: #### L [id number] #### LAB [address] [address] Yusuf Villaseñor M.D. [id number] MEAN CORPUSCULAR HEMOGLOBIN CONC 31.1 g/dL Normal 31.0-37.0 [facility] Comment on above: Performed By: #### L [id number] #### LAB [address] [address] Yusuf Villaseñor M.D. [id number] Monocytes (Bld) [#/Vol] 0.78 10*3/uL Normal 0.30-0.90 [facility] Comment on above: Performed By: #### L [id number] #### LAB [address] [address] Yusuf Villaseñor M.D. [id number] Monocytes/100 WBC (Bld) 6.9 % Normal [facility] Comment on above: Performed By: #### L [id number] #### LAB [address] [address] Yusuf Villaseñor M.D. [id number] NEUTROPHILS ABSOLUTE COUNT 8.26 K/mcL High 1.70-7.00 [facility] Comment on above: Performed By: #### L [id number] #### LAB [address] [address] Yusuf Villaseñor M.D. [id number] Neutrophils/100 WBC (Bld) 73.0 % Normal [facility] Comment on above: Performed By: #### L [id number] #### LAB [address] [address] Yusuf Villaseñor M.D. [id number] Platelet mean volume (Bld) [Entitic vol] 8.5 fL Low 9.4-12.4 [facility] Comment on above: Performed By: #### L [id number] #### LAB [address] [address] Yusuf Villaseñor M.D. [id number] Platelets (Bld) [#/Vol] 325 10*3/uL Normal 150-400 [facility] Comment on above: Performed By: #### L [id number] ####[facility] LAB [address] [place], [place] [address] Yusuf Villaseñor M.D. [id number] RBC (Bld) [#/Vol] 2.92 10*6/uL Low 4.50-5.90 [facility] Comment on above: Performed By: #### L [id number] ####[facility] LAB [address] [address] Yusuf Villaseñor M.D. [id number] WBC (Bld) [#/Vol] 11.30 10*3/uL High 4.50-11.00 [facility] Comment on above: Performed By: #### L [id number] ####[facility] LAB [address] [address] Yusuf Villaseñor M.D. [id number] Disch [place] 02-09-2025 [facility] Glucose (Bld) [Mass/Vol]on 0 02-09-2025 Glucose [Mass/Vol] 183 mg/dL High 65 - 99 mg/[facility] Interpretation and review of laboratory results Abnormal [facility] Glucose [Mass/Vol] 145 mg/dL High 65 - 99 mg/dL [facility] Interpretation and review of laboratory results Abnormal [facility] HEPATIC FUNCTION PANELon Albumin [Mass/Vol] 2.8 g/dL Low 3.2-5.2 [facility] Comment on above: Performed By: #### 4 [id number] ####[facility] LAB [address] [id number] Yusuf Villaseñor M.D. [id number] ALP [Catalytic activity/Vol] 93 U/L Normal 40-150 [facility] Comment on above: Performed By: #### 4 5866 ####[facility] LAB [address] [id number] Yusuf Villaseñor M.D. [id number] ALT [Catalytic activity/Vol] 146 U/L High 0-50 U/L [facility] Comment on above: Performed By: #### 4 [id number] ####[facility] LAB [address] [place], [place] [address] Yusuf Villaseñor M.D. [id number] AST [Catalytic activity/Vol] 28 U/L Normal 0-50 U/L [facility] Comment on above: Performed By: #### 4 [id number] #### LAB [address] [place], [place] [address] Yusuf Villaseñor M.D. [id number] Bilirubin [Mass/Vol] 0.5 mg/dL Normal 0.0-1.3 [facility] Comment on above: Performed By: #### 4 [id number] #### LAB [address] [id number] Yusuf Villaseñor M.D. [id number] Bilirubin.indirect [Mass/Vol] 0.3 mg/dL Normal 0.0-0.4 [facility] Comment on above: Performed By: #### 4 [id number] #### LAB [address] [id number] Yusuf Villaseñor M.D. [id number] Protein [Mass/Vol] 6.5 g/dL Normal 6.0-8.0 [facility] Comment on above: Performed By: #### 4 [id number] #### LAB [address] [id number] Yusuf Villaseñor M.D. [id number] Hepatic function 2000 panelo n 02-09-2025 Albumin [Mass/Vol] 2.8 g/dL Low 3.2 - 5.2 g/dL [facility] ALP [Catalytic activity/Vol] 93 U/L 40 - 150 U/L [facility] ALT [Catalytic activity/Vol] 146 U/L High 0 - 50 U/L [facility] AST [Catalytic activity/Vol] 28 U/L 0 - 50 U/L [facility] Bilirubin [Mass/Vol] 0.5 mg/dL 0.0 - 1 .3 mg/dL [facility] Bilirubin.conjugated [Mass/Vol] 0.3 mg/dL 0.0 - 0.4 mg/dL [facility] Protein [Mass/Vol] 6.5 g/dL 6.0 - 8.0 g/dL [facility] INR Coag (PPP) [Relative pily e]on 02-09-2025 Interpretation and review of laboratory results Abnormal [facility] PT Coag (PPP) [Time] 21.2 s High [facility] - Microbiology an d Antimicrobial susceptibilityon 02-09-2025 Bacteria identified Cx Nom (Bld) No Growth after 5 days [facility] MAGNESIUM LEVELon 02-09-2025 Magnesium [Mass/Vol] 1.6 mg/dL Normal 1.6-2.4 [facility] Comment on above: Performed By: #### 4 [id number] #### LAB [address] [place], [place] [address] Yusuf Villaseñor M.D. [id number] Magnesium Levelon 02-09-2025 Magnesium [Mass/Vol] 1.6 mg/dL 1.6 - 2 .4 mg/dL [facility] Magnesium [Mass/Vol]on 02-09 Interpretation and review of laboratory results Normal [facility] No Panel Informationon 02-09 Interpretation and review of laboratory results Abnormal [facility] POC GLUCOSE - RALSon 025 Glucose [Mass/Vol] 183 mg/dL High 65-99 [facility] Glucose [Mass/Vol] 145 mg/dL High 65-99 [facility] PT/INRon 02-09-2025 INR Coag (PPP) [Relative time] 1.8 {INR} High 0.8 - 1.1 [facility] INR Coag (PPP) [Relative time] 1.8 {INR} High 0.8-1.1 [facility] Comment on above: Order Comment: Annie nicole the induction phase of oral anticoagulation, the INR may not reflect the anticoagulation status of the patient. Therapeutic ranges for INR's are:Most clinical situations: INR 2.0-3.0Mechanical Prosthetic Valve: INR 2.5-3.5Critical: INR >5.0 Performed By: #### 4 [id number] #### LAB [address] [place], [place] [address] Yusuf Villaseñor M.D. [id number] PT Coag (PPP) [Time] 21.2 s High 11.8-14.3 [facility] Comment on above: Order Comment: Annie nicole the induction phase of oral anticoagulation, the INR may not reflect the anticoagulation status of the patient. Therapeutic ranges for INR's are:Most clinical situations: INR 2.0-3.0Mechanical Prosthetic Valve: INR 2.5-3.5Critical: INR >5.0 Performed By: #### 4 6391 #### LAB [address] [address] Yusuf Villaseñor M.D. [id number] B12/FOLATEon 02-08-2025 Cobalamin (Vitamin B12) [Mass/Vol] 1076 pg/mL Normal 232-1245 [facility] Comment on above: Performed By: #### 4 6967 #### LAB [address] [address] Yusuf Villaseñor M.D. [id number] FOLATE 12.6 ng/mL Normal 3.1-17.5 [facility] Comment on above: Result Comment: Defi cient <2.2Borderline 2.2 - 3.0Excessive >17.5 Performed By: #### 4 [id number] #### LAB [address] [address] Yusuf Villaseñor M.D. [id number] B12/Folateon 02-08-2025 Cobalamin (Vitamin B12) [Mass/Vol] 1076 pg/mL 232 - 1245 pg/mL [facility] Folate [Mass/Vol] 12.6 ng/mL 3.1 - 17.5 ng/mL [facility] Interpretation and review of laboratory results Normal [facility] BASIC METABOLIC PANELon 08-0 Anion gap [Moles/Vol] 12 mmol/L Normal 10-20 [facility] Comment on above: Order Comment: [facility] has implemented the eGFR calculation approach that does not have a coefficient for race that conforms to the NKF-ASN Task Force Recommendations. Performed By: #### 4 6124 #### LAB [address] [address] Yusuf Villaseñor M.D. [id number] Calcium [Mass/Vol] 8.3 mg/dL Low 8.4-10.2 [facility] Comment on above: Order Comment: [facility] has implemented the eGFR calculation approach that does not have a coefficient for race that conforms to the NKF-ASN Task Force Recommendations. Performed By: #### 4 6124 #### LAB [address] [place], [place] [address] Yusuf Villaseñor M.D. [id number] Chloride [Moles/Vol] 99 mmol/L Normal 98-108 [facility] Comment on above: Order Comment: [facility] has implemented the eGFR calculation approach that does not have a coefficient for race that conforms to the NKF-ASN Task Force Recommendations. Performed By: #### 4 6124 ####[facility] LAB [address] [address] Yusuf Villaseñor M.D. [id number] Creatinine [Mass/Vol] 1.13 mg/dL Normal 0.80-1.30 [facility] Comment on above: Order Comment: [facility] has implemented the eGFR calculation approach that does not have a coefficient for race that conforms to the NKF-ASN Task Force Recommendations. Performed By: #### 4 6124 #### LAB [address] [address] Yusuf Villaseñor M.D. [id number] EGFR 66 mL/min/1.73 m2 Normal >=60 [facility] Comment on above: Order Comment: [facility] has implemented the eGFR calculation approach that does not have a coefficient for race that conforms to the NKF-ASN Task Force Recommendations. Result Comment: Aide mated GFR was calculated using the 2020 CKD-EPI creatinine equation. Performed By: #### 4 6124 ####[facility] LAB [address] [address] Yusuf Villaseñor M.D. [id number] Glucose [Mass/Vol] 104 mg/dL High 65-99 [facility] Comment on above: Order Comment: [facility] has implemented the eGFR calculation approach that does not have a coefficient for race that conforms to the NKF-ASN Task Force Recommendations. Performed By: #### 4 6124 #### LAB [address] [id number] Yusuf Villaseñor M.D. [id number] HCO3 (Bld) [Moles/Vol] 26 mmol/L Normal 21-32 [facility] Comment on above: Order Comment: [facility] has implemented the eGFR calculation approach that does not have a coefficient for race that conforms to the NKF-ASN Task Force Recommendations. Performed By: #### 4 6124 #### LAB [address] [id number] Yusuf Villaseñor M.D. [id number] Potassium [Moles/Vol] 4.1 mmol/L Normal 3.5-5.1 [facility] Comment on above: Order Comment: [facility] has implemented the eGFR calculation approach that does not have a coefficient for race that conforms to the NKF-ASN Task Force Recommendations. Performed By: #### 4 6124 #### LAB [address] [address] Yusuf Villaseñor M.D. [id number] Sodium [Moles/Vol] 133 mmol/L Low 135-145 [facility] Comment on above: Order Comment: [facility] has implemented the eGFR calculation approach that does not have a coefficient for race that conforms to the NKF-ASN Task Force Recommendations. Performed By: #### 4 6124 #### LAB [address] [address] Yusuf Villaseñor M.D. [id number] Urea nitrogen [Mass/Vol] 9 mg/dL Normal 8-25 [facility] Comment on above: Order Comment: [facility] has implemented the eGFR calculation approach that does not have a coefficient for race that conforms to the NKF-ASN Task Force Recommendations. Performed By: #### 4 6124 ####[facility] LAB [address] [address] Yusuf Villaseñor M.D. [id number] Urea nitrogen/Creatinine [Mass ratio] 8.0 mg/mg Low 10.0-20.0 [facility] Comment on above: Order Comment: [facility] has implemented the eGFR calculation approach that does not have a coefficient for race that conforms to the NKF-ASN Task Force Recommendations. Performed By: #### 4 6124 ####[facility] LAB [address] [place], [place] [address] Yusuf Villaseñor M.D. [id number] Basic metabolic 2000 panelon 02-08-2025 Anion gap [Moles/Vol] 12 mmol/L 10 - 2 0 mmol/L [facility] Calcium [Mass/Vol] 8.3 mg/dL Low 8.4 - 10. 2 mg/[facility] Chloride [Moles/Vol] 99 mmol/L 98 - 10 8 mmol/L [facility] Creatinine [Mass/Vol] 1.13 mg/dL 0.80 - 1.30 mg/dL [facility] GFR/1.73 sq M.predicted CKD-EPI (S/P/Bld) [Vol rate/Area] 66 - PINF [facility] Glucose [Mass/Vol] 104 mg/dL High 65 - 99 mg/dL [facility] HCO3 [Moles/Vol] 26 mmol/L 21 - 32 mmol/L [facility] Potassium [Moles/Vol] 4.1 mmol/L 3.5 - 5.1 mmol/L [facility] Sodium [Moles/Vol] 133 mmol/L Low 135 - 145 mmol/L [facility] Urea nitrogen [Mass/Vol] 9 mg/dL 8 - 25 mg/dL [facility] Urea nitrogen/Creatinine [Mass ratio] 8 mg/mg Low 10.0 - 20.0 [facility] CBC Auto Differentialon Basophils (Bld) [#/Vol] 0.05 10*3/uL [facility] Basophils/100 [facility] (Bld) 0.4 % [facility] Eosinophils (Bld) [#/Vol] 0.28 10*3/uL [facility] Eosinophils/100 WBC (Bld) 2.3 % [facility] Erythrocyte distribution width (RBC) [Entitic vol] 14.7 % 11.6 - 14.8 % [facility] Hematocrit (Bld) [Volume fraction] 23.9 % Low 41.0 - 53.0 % [facility] Hemoglobin (Bld) [Mass/Vol] 7.4 g/dL Low 13.5 - 17.5 g/dL [facility] Immature granulocytes (Bld) [#/Vol] 0.3 10*3/uL [facility] Immature granulocytes/100 WBC (Bld) 2.4 % [facility] Interpretation and review of laboratory results Abnormal [facility] Lymphocytes (Bld) [#/Vol] 2.06 10*3/uL [facility] Lymphocytes/100 WBC (Bld) 16.7 % [facility] MCH (RBC) [Entitic mass] 26.1 pg 26.0 - 34.0 pg [facility] MCHC (RBC) [Mass/Vol] 31 g/dL 31.0 - 37.0 g/dL [facility] MCV (RBC) [Entitic vol] 84.2 fL 80.0 - 100.0 fL [facility] Monocytes (Bld) [#/Vol] 0.88 10*3/uL [facility] Monocytes/100 WBC (Bld) 7.1 % [facility] Neutrophils (Bld) [#/Vol] 8.78 10*3/uL High [facility] Neutrophils/100 WBC (Bld) 71.1 % [facility] Nucleated RBC (Bld) [#/Vol] 0 10*3/uL [facility] Nucleated RBC/100 WBC (Bld) [Ratio] 0 % [facility] Platelet mean volume (Bld) [Entitic vol] 8.4 fL Low 9.4 - 12.4 fL [facility] Platelets (Bld) [#/Vol] 295 10*3/uL [facility] RBC (Bld) [#/Vol] 2.84 10*6/uL Low [facility] ealt WBC (Bld) [#/Vol] 12.35 10*3/uL High [facility] CBC WITH AUTO DIFFERENTIALon 02-08-2025 AUTO NRBC 0.0 % Normal [facility] Comment on above: Performed By: #### L [id number] ####[facility] LAB [address] [place], [place] [address] Yusuf Villaseñor M.D. [id number] AUTO NRBC ABS COUNT 0.00 K/mcL Normal 0.00-0.00 [facility] Comment on above: Performed By: #### L [id number] ####[facility] LAB [address] [place], [place] [address] Yusuf Villaseñor M.D. [id number] BASOPHILS ABSOLUTE COUNT 0.05 K/mcL Normal 0.00-0.30 [facility] Comment on above: Performed By: #### L [id number] #### LAB [address] [address] Yusuf Villaseñor M.D. [id number] Basophils/100 WBC (Bld) 0.4 % Normal [facility] Comment on above: Performed By: #### L [id number] #### LAB [address] [address] Yusuf Villaseñor M.D. [id number] Eosinophils (Bld) [#/Vol] 0.28 10*3/uL Normal 0.00-0.50 [facility] Comment on above: Performed By: #### L [id number] #### LAB [address] [address] Yusuf Villaseñor M.D. [id number] Eosinophils/100 WBC (Bld) 2.3 % Normal [facility] Comment on above: Performed By: #### L [id number] #### LAB [address] [place] [address] Yusuf Villaseñor M.D. [id number] Erythrocyte distribution width (RBC) [Ratio] 14.7 % Normal 11.6-14.8 [facility] Comment on above: Performed By: #### L [id number] #### LAB [address] [place] [address] Yusuf Villaseñor M.D. [id number] Hematocrit (Bld) [Volume fraction] 23.9 % Low 41.0-53.0 [facility] Comment on above: Performed By: #### L [id number] #### LAB [address] [place] [address] Yusuf Villaseñor M.D. [id number] Hemoglobin (Bld) [Mass/Vol] 7.4 g/dL Low 13.5-17.5 [facility] Comment on above: Performed By: #### L [id number] #### LAB [address] [place] [address] Yusuf Villaseñor M.D. [id number] IG ABSOLUTE 0.30 K/mcL Normal 0.00-0.30 [facility] Comment on above: Performed By: #### L [id number] #### LAB [address] [address] Yusuf Villaseñor M.D. [id number] IG PERCENT 2.40 % Normal [facility] Comment on above: Result Comment: The IG parameter is the percentage of metamyelocytes, myelocytes and promyelocytes. An immature granulocyte count (IG) of 1% or more suggests the possibility of infection, an IG count of 3% is very likely related to an infection. Performed By: #### L [id number] #### LAB [address] [address] Yusuf Villaseñor M.D. [id number] Lymphocytes (Bld) [#/Vol] 2.06 10*3/uL Normal 0.90-4.00 [facility] Comment on above: Performed By: #### L [id number] #### LAB [address] [place] [address] Yusuf Villaseñor M.D. [id number] Lymphocytes/100 WBC (Bld) 16.7 % Normal [facility] Comment on above: Performed By: #### L [id number] #### LAB [address] [place] [address] Yusuf Villaseñor M.D. [id number] MCH (RBC) [Entitic mass] 26.1 pg Normal 26.0-34.0 [facility] Comment on above: Performed By: #### L [id number] #### LAB [address] [address] Yusuf Villaseñor M.D. [id number] MCV (RBC) [Entitic vol] 84.2 fL Normal 80.0-100.0 [facility] Comment on above: Performed By: #### L [id number] #### LAB [address] [place] [address] Yusuf Villaseñor M.D. [id number] MEAN CORPUSCULAR HEMOGLOBIN CONC 31.0 g/dL Normal 31.0-37.0 [facility] Comment on above: Performed By: #### L [id number] #### LAB [address] [place], [place] [id number] Yusuf Villaseñor M.D. [id number] Monocytes (Bld) [#/Vol] 0.88 10*3/uL Normal 0.30-0.90 [facility] Comment on above: Performed By: #### L [id number] #### LAB [address] [address] Yusuf Villaseñor M.D. [id number] Monocytes/100 WBC (Bld) 7.1 % Normal [facility] Comment on above: Performed By: #### L [id number] #### LAB [address] [address] Yusuf Villaseñor M.D. [id number] NEUTROPHILS ABSOLUTE COUNT 8.78 K/mcL High 1.70-7.00 [facility] Comment on above: Performed By: #### L [id number] #### LAB [address] [address] Yusuf Villaseñor M.D. [id number] Neutrophils/100 WBC (Bld) 71.1 % Normal [facility] Comment on above: Performed By: #### L [id number] #### LAB [address] [address] Yusuf Villaseñor M.D. [id number] Platelet mean volume (Bld) [Entitic vol] 8.4 fL Low 9.4-12.4 [facility] Comment on above: Performed By: #### L [id number] #### LAB [address] [address] Yusuf Villaseñor M.D. [id number] Platelets (Bld) [#/Vol] 295 10*3/uL Normal 150-400 [facility] Comment on above: Performed By: #### L [id number] #### LAB [address] [address] Yusuf Villaseñor M.D. [id number] RBC (Bld) [#/Vol] 2.84 10*6/uL Low 4.50-5.90 [facility] Comment on above: Performed By: #### L [id number] ####[facility] LAB [address] [place], [place] [address] Yusuf Villaseñor M.D. [id number] WBC (Bld) [#/Vol] 12.35 10*3/uL High 4.50-11.00 [facility] Comment on above: Performed By: #### L [id number] #### LAB [address] [place], [place] [address] Yusuf Villaseñor M.D. [id number] Glucose (Bld) [Mass/Vol]on 0 02-08-2025 Glucose [Mass/Vol] 182 mg/dL High 65 - 99 mg/dL [facility] Interpretation and review of laboratory results Abnormal [facility] Glucose [Mass/Vol] 215 mg/dL High 65 - 99 mg/dL [facility] Interpretation and review of laboratory results Abnormal [facility] Glucose [Mass/Vol] 151 mg/dL High 65 - 99 mg/dL [facility] Interpretation and review of laboratory results Abnormal [facility] Glucose [Mass/Vol] 119 mg/dL High 65 - 99 mg/dL [facility] Interpretation and review of laboratory results Abnormal [facility] HEPATIC FUNCTION PANELon Albumin [Mass/Vol] 2.8 g/dL Low 3.2-5.2 [facility] Comment on above: Performed By: #### 4 5866 ####[facility] LAB [address] [place], [place] [address] Yusuf Villaseñor M.D. [id number] ALP [Catalytic activity/Vol] 90 U/L Normal 40-150 [facility] Comment on above: Performed By: #### 4 5866 ####[facility] LAB [address] [place], [place] [address] Yusuf Villaseñor M.D. [id number] ALT [Catalytic activity/Vol] 181 U/L High 0-50 U/L [facility] Comment on above: Performed By: #### 4 5866 ####[facility] LAB [address] [place], [place] [address] Yusuf Villaseñor M.D. [id number] AST [Catalytic activity/Vol] 34 U/L Normal 0-50 U/L [facility] Comment on above: Performed By: #### 4 5866 #### LAB [address] [place], [place] [address] Yusuf Villaseñor M.D. [id number] Bilirubin [Mass/Vol] 0.6 mg/dL Normal 0.0-1.3 [facility] Comment on above: Performed By: #### 4 5866 #### LAB [address] [address] Yusuf Villaseñor M.D. [id number] Bilirubin.indirect [Mass/Vol] 0.3 mg/dL Normal 0.0-0.4 [facility] Comment on above: Performed By: #### 4 5866 #### LAB [address] [address] Yusuf Villaseñor M.D. [id number] Protein [Mass/Vol] 6.2 g/dL Normal 6.0-8.0 [facility] Comment on above: Performed By: #### 4 5866 #### LAB [address] [address] Yusuf Villaseñor M.D. [id number] Hepatic function 2000 panelo n 02-08-2025 Albumin [Mass/Vol] 2.8 g/dL Low 3.2 - 5.2 g/dL [facility] ALP [Catalytic activity/Vol] 90 U/L 40 - 150 U/L [facility] ALT [Catalytic activity/Vol] 181 U/L High 0 - 50 U/L [facility] AST [Catalytic activity/Vol] 34 U/L 0 - 50 U/L [facility] Bilirubin [Mass/Vol] 0.6 mg/dL 0.0 - 1 .3 mg/dL [facility] Bilirubin.conjugated [Mass/Vol] 0.3 mg/dL 0.0 - 0.4 mg/dL [facility] Protein [Mass/Vol] 6.2 g/dL 6.0 - 8.0 g/dL [facility] INR Coag (PPP) [Relative pily e]on 02-08-2025 Interpretation and review of laboratory results Abnormal [facility] PT Coag (PPP) [Time] 20.5 s High [facility] IRON STUDY WITH FERRITINon 0 02-08-2025 Ferritin [Mass/Vol] 154 ng/mL Normal 30-400 [facility] Comment on above: Performed By: #### 4 7645 #### LAB [address] [address] Yusuf Villaseñor M.D. [id number] Iron [Mass/Vol] 21 ug/dL Low 40-165 [facility] Comment on above: Performed By: #### 4 7645 #### LAB [address] [address] Yusuf Villaseñor M.D. [id number] IRON SATURATION 9 % Low 20-50 [facility] Comment on above: Performed By: #### 4 7645 #### LAB [address] [address] Yusuf Villaseñor M.D. [id number] TIBC (CALCULATED) 236 mcg/dL Normal 225-430 [facility] Comment on above: Performed By: #### 4 7645 #### LAB [address] [address] Yusuf Villaseñor M.D. [id number] Iron Study with Ferritinon 0 02-08-2025 Ferritin [Mass/Vol] 154 ng/mL 30 - 400 ng/mL [facility] Interpretation and review of laboratory results Abnormal [facility] Iron [Mass/Vol] 21 ug/dL [facility] Iron binding capacity [Mass/Vol] 236 [facility] Iron saturation [Mass fraction] 9 % Low 20 - 50 % [facility] MAGNESIUM LEVELon 02-08-2025 Magnesium [Mass/Vol] 1.7 mg/dL Normal 1.6-2.4 [facility] Comment on above: Performed By: #### 4 6109 #### LAB [address] [address] Yusuf Villaseñor M.D. [id number] Magnesium Levelon 02-08-2025 Magnesium [Mass/Vol] 1.7 mg/dL 1.6 - 2 .4 mg/dL [facility] Magnesium [Mass/Vol]on 02-08 Interpretation and review of laboratory results Normal [facility] No Panel Informationon 02-08 Interpretation and review of laboratory results Abnormal [facility] POC GLUCOSE - [place] 025 Glucose [Mass/Vol] 182 mg/dL High 65- [facility] Glucose [Mass/Vol] 215 mg/dL High 65- [facility] Glucose [Mass/Vol] 151 mg/dL High 65- [facility] Glucose [Mass/Vol] 119 mg/dL High 65- [facility] PT/INRon 02-08-2025 INR Coag (PPP) [Relative time] 1.7 {INR} High 0.8 - 1.1 [facility] INR Coag (PPP) [Relative time] 1.7 {INR} High 0.8-1.1 [facility] Comment on above: Order Comment: Annie nicole the induction phase of oral anticoagulation, the INR may not reflect the anticoagulation status of the patient. Therapeutic ranges for INR's are:Most clinical situations: INR 2.0-3.0Mechanical Prosthetic Valve: INR 2.5-3.5Critical: INR >5.0 Performed By: #### 4 6391 #### LAB [address] [place], [place] [address] Yusuf Villaseñor M.D. [id number] PT Coag (PPP) [Time] 20.5 s High 11.8-14.3 [facility] Comment on above: Order Comment: Annie nicole the induction phase of oral anticoagulation, the INR may not reflect the anticoagulation status of the patient. Therapeutic ranges for INR's are:Most clinical situations: INR 2.0-3.0Mechanical Prosthetic Valve: INR 2.5-3.5Critical: INR >5.0 Performed By: #### 4 6391 #### LAB [address] [place], [place] [address] Yusuf Villaseñor M.D. [id number] BASIC METABOLIC PANELon 01-10 Anion gap [Moles/Vol] 14 mmol/L Normal 10-20 [facility] Comment on above: Order Comment: [facility] has implemented the eGFR calculation approach that does not have a coefficient for race that conforms to the NKF-ASN Task Force Recommendations. Performed By: #### 4 6124 ####[facility] LAB [address] [place], [place] [address] Yusuf Villaseñor M.D. [id number] Calcium [Mass/Vol] 8.5 mg/dL Normal 8.4-10.2 [facility] Comment on above: Order Comment: [facility] has implemented the eGFR calculation approach that does not have a coefficient for race that conforms to the NKF-ASN Task Force Recommendations. Performed By: #### 4 6124 #### LAB [address] [address] Yusuf Villaseñor M.D. [id number] Chloride [Moles/Vol] 98 mmol/L Normal 98-108 [facility] Comment on above: Order Comment: [facility] has implemented the eGFR calculation approach that does not have a coefficient for race that conforms to the NKF-ASN Task Force Recommendations. Performed By: #### 4 6124 #### LAB [address] [address] Yusuf Villaseñor M.D. [id number] Creatinine [Mass/Vol] 1.17 mg/dL Normal 0.80-1.30 [facility] Comment on above: Order Comment: [facility] has implemented the eGFR calculation approach that does not have a coefficient for race that conforms to the NKF-ASN Task Force Recommendations. Performed By: #### 4 6124 #### LAB [address] [address] Yusuf Villaseñor M.D. [id number] EGFR 63 mL/min/1.73 m2 Normal >=60 [facility] Comment on above: Order Comment: [facility] has implemented the eGFR calculation approach that does not have a coefficient for race that conforms to the NKF-ASN Task Force Recommendations. Result Comment: Aide mated GFR was calculated using the 2020 CKD-EPI creatinine equation. Performed By: #### 4 6124 #### LAB [address] [address] Yusuf Villaseñor M.D. [id number] Glucose [Mass/Vol] 56 mg/dL Low 65-99 [facility] Comment on above: Order Comment: [facility] has implemented the eGFR calculation approach that does not have a coefficient for race that conforms to the NKF-ASN Task Force Recommendations. Performed By: #### 4 6124 #### LAB [address] [address] Yusuf Villaseñor M.D. [id number] HCO3 (Bld) [Moles/Vol] 26 mmol/L Normal 21-32 [facility] Comment on above: Order Comment: [facility] has implemented the eGFR calculation approach that does not have a coefficient for race that conforms to the NKF-ASN Task Force Recommendations. Performed By: #### 4 6124 #### LAB [address] [address] Yusuf Villaseñor M.D. [id number] Potassium [Moles/Vol] 4.1 mmol/L Normal 3.5-5.1 [facility] Comment on above: Order Comment: [facility] has implemented the eGFR calculation approach that does not have a coefficient for race that conforms to the NKF-ASN Task Force Recommendations. Performed By: #### 4 6124 #### LAB [address] [address] Yusuf Villaseñor M.D. [id number] Sodium [Moles/Vol] 134 mmol/L Low 135-145 [facility] Comment on above: Order Comment: [facility] has implemented the eGFR calculation approach that does not have a coefficient for race that conforms to the NKF-ASN Task Force Recommendations. Performed By: #### 4 6124 #### LAB [address] [address] Yusuf Villaseñor M.D. [id number] Urea nitrogen [Mass/Vol] 13 mg/dL Normal 8-25 [facility] Comment on above: Order Comment: [facility] has implemented the eGFR calculation approach that does not have a coefficient for race that conforms to the NKF-ASN Task Force Recommendations. Performed By: #### 4 6116 #### LAB [address] [address] Yusuf Villaseñor M.D. [id number] Urea nitrogen/Creatinine [Mass ratio] 11.1 mg/mg Normal 10.0-20.0 [facility] Comment on above: Order Comment: [facility] has implemented the eGFR calculation approach that does not have a coefficient for race that conforms to the NKF-ASN Task Force Recommendations. Performed By: #### 4 6124 #### LAB [address] [address] Yusuf Villaseñor M.D. [id number] Basic metabolic 2000 panelon 02-07-2025 Anion gap [Moles/Vol] 14 mmol/L 10 - 2 0 mmol/L [facility] Calcium [Mass/Vol] 8.5 mg/dL 8.4 - 10. 2 mg/dL [facility] Chloride [Moles/Vol] 98 mmol/L 98 - 10 8 mmol/L [facility] Creatinine [Mass/Vol] 1.17 mg/dL 0.80 - 1.30 mg/dL [facility] GFR/1.73 sq M.predicted CKD-EPI (S/P/Bld) [Vol rate/Area] 63 - PINF [facility] Glucose [Mass/Vol] 56 mg/dL Low 65 - 99 mg/dL [facility] HCO3 [Moles/Vol] 26 mmol/L 21 - 32 mmol/L [facility] Potassium [Moles/Vol] 4.1 mmol/L 3.5 - 5.1 mmol/L [facility] Sodium [Moles/Vol] 134 mmol/L Low 135 - 145 mmol/L [facility] Urea nitrogen [Mass/Vol] 13 mg/dL 8 - 25 mg/dL [facility] Urea nitrogen/Creatinine [Mass ratio] 11.1 mg/mg 10.0 - 20.0 [facility] CBCon 02-07-2025 AUTO NRBC 0.0 % Normal [facility] Comment on above: Order Comment: While on heparin Performed By: #### 4 [id number] #### LAB [address] [place], [place] [address] Yusuf Villaseñor M.D. [id number] AUTO NRBC ABS COUNT 0.00 K/mcL Normal 0.00-0.00 [facility] Comment on above: Order Comment: While on heparin Performed By: #### 4 [id number] #### LAB [address] [address] Yusuf Villaseñor M.D. [id number] Erythrocyte distribution width (RBC) [Ratio] 14.8 % Normal 11.6-14.8 [facility] Comment on above: Order Comment: While on heparin Performed By: #### 4 [id number] #### LAB [address] [address] Yusuf Villaseñor M.D. [id number] Hematocrit (Bld) [Volume fraction] 24.7 % Low 41.0-53.0 [facility] Comment on above: Order Comment: While on heparin Performed By: #### 4 [id number] #### LAB [address] [address] Yusuf Villaseñor M.D. [id number] Hemoglobin (Bld) [Mass/Vol] 7.7 g/dL Low 13.5-17.5 [facility] Comment on above: Order Comment: While on heparin Performed By: #### 4 [id number] #### LAB [address] [address] Yusuf Villaseñor M.D. [id number] MCH (RBC) [Entitic mass] 26.2 pg Normal 26.0-34.0 [facility] Comment on above: Order Comment: While on heparin Performed By: #### 4 [id number] #### LAB [address] [address] Yusuf Villaseñor M.D. [id number] MCV (RBC) [Entitic vol] 84.0 fL Normal 80.0-100.0 [facility] Comment on above: Order Comment: While on heparin Performed By: #### 4 [id number] #### LAB [address] [address] Yusuf Villaseñor M.D. [id number] MEAN CORPUSCULAR HEMOGLOBIN CONC 31.2 g/dL Normal 31.0-37.0 [facility] Comment on above: Order Comment: While on heparin Performed By: #### 4 [id number] #### LAB [address] [address] Yusuf Villaseñor M.D. [id number] Platelet mean volume (Bld) [Entitic vol] 8.2 fL Low 9.4-12.4 [facility] Comment on above: Order Comment: While on heparin Performed By: #### 4 [id number] #### LAB [address] [id number] Yusuf Villaseñor M.D. [id number] Platelets (Bld) [#/Vol] 280 10*3/uL Normal 150-400 [facility] Comment on above: Order Comment: While on heparin Performed By: #### 4 [id number] #### LAB [address] [address] Yusuf Villaseñor M.D. [id number] RBC (Bld) [#/Vol] 2.94 10*6/uL Low 4.50-5.90 [facility] Comment on above: Order Comment: While on heparin Performed By: #### 4 [id number] #### LAB [address] [address] uYsuf Villaseñor M.D. [id number] WBC (Bld) [#/Vol] 12.99 10*3/uL High 4.50-11.00 [facility] Comment on above: Order Comment: While on heparin Performed By: #### 4 [id number] #### LAB [address] [place], [place] [address] Yusuf Villaseñor M.D. [id number] CBC Auto Differentialon 01-10 Erythrocyte distribution width (RBC) [Entitic vol] 14.6 % 11.6 - 14.8 % [facility] Hematocrit (Bld) [Volume fraction] 24.3 % Low 41.0 - 53.0 % [facility] Hemoglobin (Bld) [Mass/Vol] 7.6 g/dL Low 13.5 - 17.5 g/dL [facility] MCH (RBC) [Entitic mass] 26.6 pg 26.0 - 34.0 pg [facility] MCHC (RBC) [Mass/Vol] 31.3 g/dL 31.0 - 37.0 g/dL [facility] MCV (RBC) [Entitic vol] 85 fL 80.0 - 100.0 fL [facility] Nucleated RBC (Bld) [#/Vol] 0.02 10*3/uL High [facility] Nucleated RBC/100 WBC (Bld) [Ratio] 0.1 % [facility] Platelet mean volume (Bld) [Entitic vol] 8.4 fL Low 9.4 - 12.4 fL [facility] Platelets (Bld) [#/Vol] 303 10*3/uL [facility] RBC (Bld) [#/Vol] 2.86 10*6/uL Low [facility] ealt WBC (Bld) [#/Vol] 14.58 10*3/uL [facility] CBC WITH AUTO DIFFERENTIALon 02-07-2025 AUTO NRBC 0.1 % Normal [facility] Comment on above: Performed By: #### L [id number] #### LAB [address] [address] Yusuf Villaseñor M.D. [id number] AUTO NRBC ABS COUNT 0.02 K/mcL High 0.00-0.00 [facility] Comment on above: Performed By: #### L [id number] #### LAB [address] [address] Yusuf Villaseñor M.D. [id number] Erythrocyte distribution width (RBC) [Ratio] 14.6 % Normal 11.6-14.8 [facility] Comment on above: Performed By: #### L [id number] #### LAB [address] [address] Yusuf Villaseñor M.D. [id number] Hematocrit (Bld) [Volume fraction] 24.3 % Low 41.0-53.0 [facility] Comment on above: Performed By: #### L [id number] #### LAB [address] [address] Yusuf Villaseñor M.D. [id number] Hemoglobin (Bld) [Mass/Vol] 7.6 g/dL Low 13.5-17.5 [facility] Comment on above: Performed By: #### L [id number] #### LAB [address] [place] [address] Yusuf Villaseñor M.D. [id number] MCH (RBC) [Entitic mass] 26.6 pg Normal 26.0-34.0 [facility] Comment on above: Performed By: #### L [id number] #### LAB [address] [address] Yusuf Villaseñor M.D. [id number] MCV (RBC) [Entitic vol] 85.0 fL Normal 80.0-100.0 [facility] Comment on above: Performed By: #### L [id number] ####[facility] LAB [address] [address] Yusuf Villaseñor M.D. [id number] MEAN CORPUSCULAR HEMOGLOBIN CONC 31.3 g/dL Normal 31.0-37.0 [facility] Comment on above: Performed By: #### L [id number] #### LAB [address] [address] uYsuf Villaseñor M.D. [id number] Platelet mean volume (Bld) [Entitic vol] 8.4 fL Low 9.4-12.4 [facility] Comment on above: Performed By: #### L [id number] #### LAB [address] [address] Yusuf Villaseñor M.D. [id number] Platelets (Bld) [#/Vol] 303 10*3/uL Normal 150-400 [facility] Comment on above: Performed By: #### L [id number] #### LAB [address] [address] Yusuf Villaseñor M.D. [id number] RBC (Bld) [#/Vol] 2.86 10*6/uL Low 4.50-5.90 [facility] Comment on above: Performed By: #### L [id number] ####[facility] LAB [address] [address] Yusuf Villaseñor M.D. [id number] WBC (Bld) [#/Vol] 14.58 10*3/uL High 4.50-11.00 [facility] Comment on above: Performed By: #### L [id number] ####[facility] LAB [address] [place], [place] [address] Yusuf Villaseñor M.D. [id number] CBC and Diff Morphologyon Ovalocytes LM Ql (Bld) Few [place] [facility] Platelets LM Ql (Bld) Normal Normal [place] Polychromasia LM Ql (Bld) Few [facility] RBC morphology finding Nom (Bld) See Comment [facility] CBC panel Auto (Bld)on 02-07 Erythrocyte distribution width (RBC) [Entitic vol] 14.8 % 11.6 - 14.8 % [facility] Hematocrit (Bld) [Volume fraction] 24.7 % Low 41.0 - 53.0 % [facility] Hemoglobin (Bld) [Mass/Vol] 7.7 g/dL Low 13.5 - 17.5 g/dL [facility] Interpretation and review of laboratory results Abnormal [facility] MCH (RBC) [Entitic mass] 26.2 pg 26.0 - 34.0 pg [facility] MCHC (RBC) [Mass/Vol] 31.2 g/dL 31.0 - 37.0 g/dL [facility] MCV (RBC) [Entitic vol] 84 fL 80.0 - 100.0 fL [facility] Nucleated RBC (Bld) [#/Vol] 0 10*3/uL [facility] Nucleated RBC/100 WBC (Bld) [Ratio] 0 % [facility] Platelet mean volume (Bld) [Entitic vol] 8.2 fL Low 9.4 - 12.4 fL [facility] Platelets (Bld) [#/Vol] 280 10*3/uL [facility] RBC (Bld) [#/Vol] 2.94 10*6/uL Low [facility] W[facility] (Bld) [#/Vol] 12.99 10*3/uL High [facility] Glucose (Bld) [Mass/Vol]on 0 02-07-2025 Glucose [Mass/Vol] 161 mg/dL High 65 - 99 mg/dL [place] Interpretation and review of laboratory results Abnormal [facility] Glucose [Mass/Vol] 129 mg/dL High 65 - 99 mg/dL [place] Interpretation and review of laboratory results Abnormal [facility] Glucose [Mass/Vol] 133 mg/dL High 65 - 99 mg/dL [place] Interpretation and review of laboratory results Abnormal [facility] Glucose [Mass/Vol] 122 mg/dL High 65 - 99 mg/dL [place] Interpretation and review of laboratory results Abnormal [facility] Glucose [Mass/Vol] 55 mg/dL Critically low 65 - 99 mg/dL [facility] Interpretation and review of laboratory results Abnormal [facility] HEPATIC FUNCTION PANELon Albumin [Mass/Vol] 2.8 g/dL Low 3.2-5.2 [facility] Comment on above: Performed By: #### 4 5866 #### LAB [address] [address] Yusuf Villaseñor M.D. [id number] ALP [Catalytic activity/Vol] 95 U/L Normal 40-150 [facility] Comment on above: Performed By: #### 4 5866 #### LAB [address] [address] Yusuf Villaseñor M.D. [id number] ALT [Catalytic activity/Vol] 241 U/L High 0-50 U/L [facility] Comment on above: Performed By: #### 4 5866 #### LAB [address] [address] Yusuf Villaseñor M.D. [id number] AST [Catalytic activity/Vol] 37 U/L Normal 0-50 U/L [facility] Comment on above: Performed By: #### 4 5866 #### LAB [address] [address] Yusuf Villaseñor M.D. [id number] Bilirubin [Mass/Vol] 0.5 mg/dL Normal 0.0-1.3 [facility] Comment on above: Performed By: #### 4 5866 #### LAB [address] [address] Yusuf Villaseñor M.D. [id number] Bilirubin.indirect [Mass/Vol] 0.3 mg/dL Normal 0.0-0.4 [facility] Comment on above: Performed By: #### 4 5866 #### LAB [address] [address] Yusuf Villaseñor M.D. [id number] Protein [Mass/Vol] 6.4 g/dL Normal 6.0-8.0 [facility] Comment on above: Performed By: #### 4 5866 #### LAB [address] [place], [place] [address] Yusuf Villaseñor M.D. [id number] Hepatic function 2000 panelo n 02-07-2025 Albumin [Mass/Vol] 2.8 g/dL Low 3.2 - 5.2 g/dL [facility] ALP [Catalytic activity/Vol] 95 U/L 40 - 150 U/L [facility] ALT [Catalytic activity/Vol] 241 U/L High 0 - 50 U/L [facility] AST [Catalytic activity/Vol] 37 U/L 0 - 50 U/L [facility] Bilirubin [Mass/Vol] 0.5 mg/dL 0.0 - 1 .3 mg/dL [facility] Bilirubin.conjugated [Mass/Vol] 0.3 mg/dL 0.0 - 0.4 mg/dL [facility] Protein [Mass/Vol] 6.4 g/dL 6.0 - 8.0 g/dL [facility] INR Coag (PPP) [Relative pily e]on 02-07-2025 Interpretation and review of laboratory results Abnormal [facility] PT Coag (PPP) [Time] 17.7 s High [facility] MAGNESIUM LEVELon 02-07-2025 Magnesium [Mass/Vol] 1.9 mg/dL Normal 1.6-2.4 [facility] Comment on above: Performed By: #### 4 6109 ####[facility] LAB [address] [place] [id number] Yusuf Villaseñor M.D. [id number] MANUAL DIFFERENTIALon 2024 BASOPHILS - ABS (DIFF) 0.00 K/mcL Normal 0.00-0.30 [facility] Comment on above: Performed By: #### 4 5456 ####[facility] LAB [address] [id number] Yusuf Villaseñor M.D. [id number] BASOPHILS - REL (DIFF) 0.0 % Normal [facility] Comment on above: Performed By: #### 4 5456 #### LAB [address] [address] Yusuf Villaseñor M.D. [id number] EOSINOPHILS - ABS (DIFF) 0.00 K/mcL Normal 0.00-0.50 [facility] Comment on above: Performed By: #### 4 5456 #### LAB [address] [address] Yusuf Villaseñor M.D. [id number] EOSINOPHILS - REL (DIFF) 0.0 % [facility] Comment on above: Performed By: #### 4 5456 #### LAB [address] [address] Yusuf Villaseñor M.D. [id number] LYMPHOCYTES - ABS (DIFF) 2.19 K/mcL Normal 0.90-4.00 [facility] Comment on above: Performed By: #### 4 5456 #### LAB [address] [place] [address] Yusuf Villaseñor M.D. [id number] LYMPHOCYTES - REL (DIFF) 15.0 % [facility] Comment on above: Performed By: #### 4 5456 #### LAB [address] [place] [address] Yusuf Villaseñor M.D. [id number] METAMYELOCYTES-REL (DIFF) 1.0 % [facility] Comment on above: Performed By: #### 4 5456 #### LAB [address] [place] [address] Yusuf Villaseñor M.D. [id number] MONOCYTES - ABS (DIFF) 0.73 K/mcL Normal 0.30-0.90 [facility] Comment on above: Performed By: #### 4 5456 #### LAB [address] [address] Yusuf Villaseñor M.D. [id number] MONOCYTES - REL (DIFF) 5.0 % Normal [facility] Comment on above: Performed By: #### 4 1607 #### LAB [address] [address] Yusuf Villaseñor M.D. [id number] MYELOCYTES RELATIVE PERCENT 4.0 % Normal [facility] Comment on above: Performed By: #### 4 5456 ####[facility] LAB [address] [address] Yusuf Villaseñor M.D. [id number] NEUTROPHILS - ABS (DIFF) 11.66 K/mcL High 1.70-7.00 [facility] Comment on above: Performed By: #### 4 [id number] ####[facility] LAB [address] [address] Yusuf Villaseñor M.D. [id number] NEUTROPHILS - REL (DIFF) 75.0 % Normal [facility] Comment on above: Performed By: #### 4 5456 ####[facility] LAB [address] [address] Yusuf Villaseñor M.D. [id number] MORPHOLOGYon 02-07-2025 OVAL SCAN Few Normal [facility] Comment on above: Performed By: #### L [id number] ####[facility] LAB [address] [address] Yusuf Villaseñor M.D. [id number] PLATELET ESTIMATE Normal Normal Normal [facility] Comment on above: Performed By: #### L [id number] ####[facility] LAB [address] [address] Yusuf Villaseñor M.D. [id number] POLY SCAN Few Normal [facility] Comment on above: Performed By: #### L [id number] ####[facility] LAB [address] [address] Yusuf Villaseñor M.D. [id number] RBC MORPH SCAN See Comment Normal [facility] Comment on above: Result Comment: RBC Indices confirmed with manual peripheral smear review. Performed By: #### L [id number] ####[facility] LAB [address] [address] Yusuf Villaseñor M.D. [id number] Magnesium Levelon 02-07-2025 Magnesium [Mass/Vol] 1.9 mg/dL 1.6 - 2 .4 mg/dL [facility] Magnesium [Mass/Vol]on 02-07 Interpretation and review of laboratory results Normal [facility] Manual Differential panel (B ld)on 02-07-2025 Basophils (Bld) [#/Vol] 0 10*3/uL [facility] Basophils/100 WBC (Bld) 0 % [facility] Eosinophils (Bld) [#/Vol] 0 10*3/uL [facility] Eosinophils/100 WBC (Bld) 0 % [facility] Lymphocytes (Bld) [#/Vol] 2.19 10*3/uL [facility] Lymphocytes/100 WBC (Bld) 15 % [facility] Metamyelocytes/100 WBC (Bld) 1 % [facility] Monocytes (Bld) [#/Vol] 0.73 10*3/uL [facility] Monocytes/100 WBC (Bld) 5 % [facility] Myelocytes/100 WBC (Bld) 4 % [facility] Neutrophils (Bld) [#/Vol] 11.66 10*3/uL High [facility] Neutrophils/100 WBC (Bld) 75 % [facility] No Panel Informationon 02-07 Interpretation and review of laboratory results Abnormal [facility] Interpretation and review of laboratory results Abnormal [facility] POC GLUCOSE - [facility] 025 Glucose [Mass/Vol] 161 mg/dL High 65-99 [facility] Glucose [Mass/Vol] 129 mg/dL High 65-99 [facility] Glucose [Mass/Vol] 133 mg/dL High 65-99 [facility] Glucose [Mass/Vol] 122 mg/dL High 65-99 [facility] Glucose [Mass/Vol] 55 mg/dL Off scale low 65-99 [facility] Comment on above: Order Comment: Criti ian result acted upon time of test. Test performed at bedside. PT/INRon 02-07-2025 INR Coag (PPP) [Relative time] 1.5 {INR} High 0.8 - 1.1 [facility] INR Coag (PPP) [Relative time] 1.5 {INR} High 0.8-1.1 [facility] Comment on above: Order Comment: Annie nicole the induction phase of oral anticoagulation, the INR may not reflect the anticoagulation status of the patient. Therapeutic ranges for INR's are:Most clinical situations: INR 2.0-3.0Mechanical Prosthetic Valve: INR 2.5-3.5Critical: INR >5.0 Performed By: #### 4 6391 #### LAB [address] [place], [place] [address] Yusuf Villaseñor M.D. [id number] PT Coag (PPP) [Time] 17.7 s High 11.8-14.3 [facility] Comment on above: Order Comment: Annie nicole the induction phase of oral anticoagulation, the INR may not reflect the anticoagulation status of the patient. Therapeutic ranges for INR's are:Most clinical situations: INR 2.0-3.0Mechanical Prosthetic Valve: INR 2.5-3.5Critical: INR >5.0 Performed By: #### 4 6391 #### LAB [address] [place], [place] [address] Yusuf Villaseñor M.D. [id number] XR CHEST PA/APon 02-07-2025 XR CHEST PA/AP Normal [facility] Comment on above: Order Comment: Injur y/Trauma or Illness?:Illness/OtherHow long have you had these symptoms (acute/chronic)?:AcuteReason for exam?:coughHistory of cancer?:unknownSurgeries, chemotherapy, or radiation?:unknownType of Exam?:OngoingAdditional signs and symptoms?:cough XR Chest PA and Abdomen APon 02-07-2025 GE RIS GE RIS [facility] Radiology Study observation (narrative) XR Chest PA and Abdomen APOr dered By: Giovani Fernandez on 02-07-2025 [facility] Work Phone: BASIC METABOLIC PANELon 01-10 Anion gap [Moles/Vol] 14 mmol/L Normal 10-20 [facility] Comment on above: Order Comment: [facility] has implemented the eGFR calculation approach that does not have a coefficient for race that conforms to the NKF-ASN Task Force Recommendations. Performed By: #### 4 6124 #### LAB [address] [place], [place] [address] Yusuf Villaseñor M.D. [id number] Calcium [Mass/Vol] 8.3 mg/dL Low 8.4-10.2 [facility] Comment on above: Order Comment: [facility] has implemented the eGFR calculation approach that does not have a coefficient for race that conforms to the NKF-ASN Task Force Recommendations. Performed By: #### 4 6124 #### LAB [address] [place], [place] [address] Yusuf Villaseñor M.D. [id number] Chloride [Moles/Vol] 95 mmol/L Low 98-108 [facility] Comment on above: Order Comment: [facility] has implemented the eGFR calculation approach that does not have a coefficient for race that conforms to the NKF-ASN Task Force Recommendations. Performed By: #### 4 6124 #### LAB [address] [place] [address] Yusuf Villaseñor M.D. [id number] Creatinine [Mass/Vol] 1.14 mg/dL Normal 0.80-1.30 [facility] Comment on above: Order Comment: [facility] has implemented the eGFR calculation approach that does not have a coefficient for race that conforms to the NKF-ASN Task Force Recommendations. Performed By: #### 4 6124 #### LAB [address] [place] [address] Yusuf Villaseñor M.D. [id number] EGFR 65 mL/min/1.73 m2 Normal >=60 [facility] Comment on above: Order Comment: [facility] has implemented the eGFR calculation approach that does not have a coefficient for race that conforms to the NKF-ASN Task Force Recommendations. Result Comment: Aide mated GFR was calculated using the 2020 CKD-EPI creatinine equation. Performed By: #### 4 6124 ####[facility] LAB [address] [place] [address] Yusuf Villaseñor M.D. [id number] Glucose [Mass/Vol] 84 mg/dL Normal 65-99 [facility] Comment on above: Order Comment: [facility] has implemented the eGFR calculation approach that does not have a coefficient for race that conforms to the NKF-ASN Task Force Recommendations. Performed By: #### 4 6193 ####[facility] LAB [address] [place] [id number] Yusuf Villaseñor M.D. [id number] HCO3 (Bld) [Moles/Vol] 26 mmol/L Normal 21-32 [facility] Comment on above: Order Comment: [facility] has implemented the eGFR calculation approach that does not have a coefficient for race that conforms to the NKF-ASN Task Force Recommendations. Performed By: #### 4 6124 #### LAB [address] [place] [address] Yusuf Villaseñor M.D. [id number] Potassium [Moles/Vol] 3.8 mmol/L Normal 3.5-5.1 [facility] Comment on above: Order Comment: [facility] has implemented the eGFR calculation approach that does not have a coefficient for race that conforms to the NKF-ASN Task Force Recommendations. Performed By: #### 4 6124 #### LAB [address] [place] [address] Yusuf Villaseñor M.D. [id number] Sodium [Moles/Vol] 131 mmol/L Low 135-145 [facility] Comment on above: Order Comment: [facility] has implemented the eGFR calculation approach that does not have a coefficient for race that conforms to the NKF-ASN Task Force Recommendations. Performed By: #### 4 6124 #### LAB [address] [place] [address] Yusuf Villaseñor M.D. [id number] Urea nitrogen [Mass/Vol] 18 mg/dL Normal 8-25 [facility] Comment on above: Order Comment: [facility] has implemented the eGFR calculation approach that does not have a coefficient for race that conforms to the NKF-ASN Task Force Recommendations. Performed By: #### 4 6124 #### LAB [address] [place] [address] Yusuf Villaseñor M.D. [id number] Urea nitrogen/Creatinine [Mass ratio] 15.8 mg/mg Normal 10.0-20.0 [facility] Comment on above: Order Comment: [facility] has implemented the eGFR calculation approach that does not have a coefficient for race that conforms to the NKF-ASN Task Force Recommendations. Performed By: #### 4 6124 ####MH [place] [address] [address] [place], [place] [address] Yusuf Villaseñor M.D. [id number] Basic metabolic 2000 panelon 02-06-2025 Anion gap [Moles/Vol] 14 mmol/L 10 - 2 0 mmol/L [facility] Calcium [Mass/Vol] 8.3 mg/dL Low 8.4 - 10. 2 mg/dL [facility] Chloride [Moles/Vol] 95 mmol/L Low 98 - 10 8 mmol/L [facility] Creatinine [Mass/Vol] 1.14 mg/dL 0.80 - 1.30 mg/dL [facility] GFR/1.73 sq M.predicted CKD-EPI (S/P/Bld) [Vol rate/Area] 65 - PINF [facility] Glucose [Mass/Vol] 84 mg/dL 65 - 99 mg/dL [facility] HCO3 [Moles/Vol] 26 mmol/L 21 - 32 mmol/L [facility] Potassium [Moles/Vol] 3.8 mmol/L 3.5 - 5.1 mmol/L [facility] Sodium [Moles/Vol] 131 mmol/L Low 135 - 145 mmol/L [facility] Urea nitrogen [Mass/Vol] 18 mg/dL 8 - 25 mg/dL [facility] Urea nitrogen/Creatinine [Mass ratio] 15.8 mg/mg 10.0 - 20.0 [facility] CBC Auto Differentialon 01-10 Erythrocyte distribution width (RBC) [Entitic vol] 14.6 % 11.6 - 14.8 % [facility] Hematocrit (Bld) [Volume fraction] 24.4 % Low 41.0 - 53.0 % [facility] Hemoglobin (Bld) [Mass/Vol] 7.7 g/dL Low 13.5 - 17.5 g/dL [facility] MCH (RBC) [Entitic mass] 26.5 pg 26.0 - 34.0 pg [facility] MCHC (RBC) [Mass/Vol] 31.6 g/dL 31.0 - 37.0 g/dL [facility] MCV (RBC) [Entitic vol] 83.8 fL 80.0 - 100.0 fL [facility] Nucleated RBC (Bld) [#/Vol] 0.03 10*3/uL High [facility] Nucleated RBC/100 WBC (Bld) [Ratio] 0.2 % [facility] Platelet mean volume (Bld) [Entitic vol] 8.5 fL Low 9.4 - 12.4 fL [facility] Platelets (Bld) [#/Vol] 267 10*3/uL [facility] RBC (Bld) [#/Vol] 2.91 10*6/uL Low [facility] ealt WBC (Bld) [#/Vol] 14.44 10*3/uL High [facility] CBC WITH AUTO DIFFERENTIALon 02-06-2025 AUTO NRBC 0.2 % Normal [facility] Comment on above: Performed By: #### L [id number] #### LAB [address] [place] [address] Yusuf Villaseñor M.D. [id number] AUTO NRBC ABS COUNT 0.03 K/mcL High 0.00-0.00 [facility] Comment on above: Performed By: #### L [id number] #### LAB [address] [place] [address] Yusuf Villaseñor M.D. [id number] Erythrocyte distribution width (RBC) [Ratio] 14.6 % Normal 11.6-14.8 [facility] Comment on above: Performed By: #### L [id number] #### LAB [address] [place] [address] Yusuf Villaseñor M.D. [id number] Hematocrit (Bld) [Volume fraction] 24.4 % Low 41.0-53.0 [facility] Comment on above: Performed By: #### L [id number] #### LAB [address] [place] [address] Yusuf Villaseñor M.D. [id number] Hemoglobin (Bld) [Mass/Vol] 7.7 g/dL Low 13.5-17.5 [facility] Comment on above: Performed By: #### L [id number] #### LAB [address] [place] [address] Yusuf Villaseñor M.D. [id number] MCH (RBC) [Entitic mass] 26.5 pg Normal 26.0-34.0 [facility] Comment on above: Performed By: #### L [id number] #### LAB [address] [place] [address] Yusuf Villaseñor M.D. [id number] MCV (RBC) [Entitic vol] 83.8 fL Normal 80.0-100.0 [facility] Comment on above: Performed By: #### L [id number] ####[facility] LAB [address] [place] [address] Yusuf Villaseñor M.D. [id number] MEAN CORPUSCULAR HEMOGLOBIN CONC 31.6 g/dL Normal 31.0-37.0 [facility] Comment on above: Performed By: #### L [id number] #### LAB [address] [place] [address] Yusuf Villaseñor M.D. [id number] Platelet mean volume (Bld) [Entitic vol] 8.5 fL Low 9.4-12.4 [facility] Comment on above: Performed By: #### L [id number] ####[facility] LAB [address] [place] [address] Yusuf Villaseñor M.D. [id number] Platelets (Bld) [#/Vol] 267 10*3/uL Normal 150-400 [facility] Comment on above: Performed By: #### L [id number] ####[facility] LAB [address] [place] [address] Yusuf Villaseñor M.D. [id number] RBC (Bld) [#/Vol] 2.91 10*6/uL Low 4.50-5.90 [facility] Comment on above: Performed By: #### L [id number] ####[facility] LAB [address] [place] [address] Yusuf Villaseñor M.D. [id number] WBC (Bld) [#/Vol] 14.44 10*3/uL High 4.50-11.00 [facility] Comment on above: Performed By: #### L [id number] ####[facility] LAB [address] [place], [place] [address] Yusuf Villaseñor M.D. [id number] CBC and Diff Morphologyon Acanthocytes LM Ql (Bld) Few [facility] Platelets LM Ql (Bld) Normal Normal [facility] Polychromasia LM Ql (Bld) Few [facility] RBC morphology finding Nom (Bld) See Comment [facility] Glucose (Bld) [Mass/Vol]on 0 02-06-2025 Glucose [Mass/Vol] 192 mg/dL High 65 - 99 mg/dL [facility] Interpretation and review of laboratory results Abnormal [facility] Glucose [Mass/Vol] 118 mg/dL High 65 - 99 mg/dL [facility] Interpretation and review of laboratory results Abnormal [facility] Glucose [Mass/Vol] 160 mg/dL High 65 - 99 mg/dL [facility] Interpretation and review of laboratory results Abnormal [facility] Glucose [Mass/Vol] 116 mg/dL High 65 - 99 mg/dL [place] Interpretation and review of laboratory results Abnormal [facility] Glucose [Mass/Vol] 73 mg/dL 65 - 99 mg/dL [place] Interpretation and review of laboratory results Normal [facility] HEPATIC FUNCTION PANELon Albumin [Mass/Vol] 2.8 g/dL Low 3.2-5.2 [facility] Comment on above: Performed By: #### 4 5866 ####[facility] LAB [address] [place], [place] [address] Yusuf Villaseñor M.D. [id number] ALP [Catalytic activity/Vol] 98 U/L Normal 40-150 [facility] Comment on above: Performed By: #### 4 5866 ####[facility] LAB [address] [place], [place] [address] Yusuf Villaseñor M.D. [id number] ALT [Catalytic activity/Vol] 315 U/L High 0-50 U/L [facility] Comment on above: Performed By: #### 4 5866 ####[facility] LAB [address] [place], [place] [address] Yusuf Villaseñor M.D. [id number] AST [Catalytic activity/Vol] 40 U/L Normal 0-50 U/L [facility] Comment on above: Performed By: #### 4 5866 #### LAB [address] [place] [address] Yusuf Villaseñor M.D. [id number] Bilirubin [Mass/Vol] 0.5 mg/dL Normal 0.0-1.3 [facility] Comment on above: Performed By: #### 4 5866 #### LAB [address] [place] [address] Yusuf Villaseñor M.D. [id number] Bilirubin.indirect [Mass/Vol] 0.3 mg/dL Normal 0.0-0.4 [facility] Comment on above: Performed By: #### 4 5866 #### LAB [address] [place] [address] Yusuf Villaseñor M.D. [id number] Protein [Mass/Vol] 5.8 g/dL Low 6.0-8.0 [facility] Comment on above: Performed By: #### 4 5866 #### LAB [address] [place] [address] Yusuf Villaseñor M.D. [id number] Hepatic function 2000 panelo n 02-06-2025 Albumin [Mass/Vol] 2.8 g/dL Low 3.2 - 5.2 g/dL [facility] ALP [Catalytic activity/Vol] 98 U/L 40 - 150 U/L [facility] ALT [Catalytic activity/Vol] 315 U/L High 0 - 50 U/L [facility] AST [Catalytic activity/Vol] 40 U/L 0 - 50 U/L [facility] Bilirubin [Mass/Vol] 0.5 mg/dL 0.0 - 1 .3 mg/dL [facility] Bilirubin.conjugated [Mass/Vol] 0.3 mg/dL 0.0 - 0.4 mg/dL [facility] Protein [Mass/Vol] 5.8 g/dL Low 6.0 - 8.0 g/dL [facility] INR Coag (PPP) [Relative pily e]on 02-06-2025 Interpretation and review of laboratory results Abnormal [facility] PT Coag (PPP) [Time] 15.3 s High [facility] MAGNESIUM LEVELon 02-06-2025 Magnesium [Mass/Vol] 1.8 mg/dL Normal 1.6-2.4 [facility] Comment on above: Performed By: #### 4 6109 #### LAB [address] [place] [address] Yusuf Villaseñor M.D. [id number] MANUAL DIFFERENTIALon 2024 BASOPHILS - ABS (DIFF) 0.29 K/mcL Normal 0.00-0.30 [facility] Comment on above: Performed By: #### 4 [id number] #### LAB [address] [place] [address] Yusuf Villaseñor M.D. [id number] BASOPHILS - REL (DIFF) 2.0 % Normal [facility] Comment on above: Performed By: #### 4 [id number] #### LAB [address] [place] [address] Yusuf Villaseñor M.D. [id number] EOSINOPHILS - ABS (DIFF) 0.72 K/mcL High 0.00-0.50 [facility] Comment on above: Performed By: #### 4 [id number] #### LAB [address] [place] [address] Yusuf Villaseñor M.D. [id number] EOSINOPHILS - REL (DIFF) 5.0 % [facility] Comment on above: Performed By: #### 4 [id number] #### LAB [address] [place] [address] Yusuf Villaseñor M.D. [id number] LYMPHOCYTES - ABS (DIFF) 0.87 K/mcL Low 0.90-4.00 [facility] Comment on above: Performed By: #### 4 [id number] #### LAB [address] [place] [address] Yusuf Villaseñor M.D. [id number] LYMPHOCYTES - REL (DIFF) 6.0 % Normal [facility] Comment on above: Performed By: #### 4 6736 #### LAB [address] [place] [address] Yusuf Villaseñor M.D. [id number] METAMYELOCYTES-REL (DIFF) 2.0 % Normal [facility] Comment on above: Performed By: #### 4 [id number] #### LAB [address] [place] [address] Yusuf Villaseñor M.D. [id number] MONOCYTES - ABS (DIFF) 1.01 K/mcL High 0.30-0.90 [facility] Comment on above: Performed By: #### 4 [id number] #### LAB [address] [place] [address] Yusuf Villaseñor M.D. [id number] MONOCYTES - REL (DIFF) 7.0 % Normal [facility] Comment on above: Performed By: #### 4 [id number] #### LAB [address] [place] [address] Yusuf Villaseñro M.D. [id number] NEUTROPHILS - ABS (DIFF) 11.55 K/mcL High 1.70-7.00 [facility] Comment on above: Performed By: #### 4 [id number] #### LAB [address] [place] [address] Yusuf Villaseñor M.D. [id number] NEUTROPHILS - REL (DIFF) 78.0 % [facility] Comment on above: Performed By: #### 4 [id number] #### LAB [address] [place] [address] Yusuf Villaseñor M.D. [id number] MORPHOLOGYon 02-06-2025 ACANTHOCYTES Few [facility] Comment on above: Performed By: #### L [id number] #### LAB [address] [place] [address] Yusuf Villaseñor M.D. [id number] PLATELET ESTIMATE Normal Normal [facility] Comment on above: Performed By: #### L [id number] #### LAB [address] [place] [address] Yusuf Villaseñor M.D. [id number] POLY SCAN Few [facility] Comment on above: Performed By: #### L [id number] ####[facility] LAB [address] [place] [address] Yusuf Villaseñor M.D. [id number] RBC MORPH SCAN See Comment Normal [facility] Comment on above: Result Comment: RBC Indices confirmed with manual peripheral smear review. Performed By: #### L [id number] ####[facility] LAB [address] [place], [place] [address] Yusuf Villaseñor M.D. [id number] Magnesium Levelon 02-06-2025 Magnesium [Mass/Vol] 1.8 mg/dL 1.6 - 2 .4 mg/dL [facility] Magnesium [Mass/Vol]on 02-06 Interpretation and review of laboratory results Normal [facility] Manual Differential panel (B ld)on 02-06-2025 Basophils (Bld) [#/Vol] 0.29 10*3/uL [facility] Basophils/100 WBC (Bld) 2 % [facility] Eosinophils (Bld) [#/Vol] 0.72 10*3/uL High [facility] Eosinophils/100 WBC (Bld) 5 % [facility] Lymphocytes (Bld) [#/Vol] 0.87 10*3/uL Low [facility] Lymphocytes/100 WBC (Bld) 6 % [facility] Metamyelocytes/100 WBC (Bld) 2 % [facility] Monocytes (Bld) [#/Vol] 1.01 10*3/uL High [facility] Monocytes/100 WBC (Bld) 7 % [facility] Neutrophils (Bld) [#/Vol] 11.55 10*3/uL High [facility] Neutrophils/100 WBC (Bld) 78 % [facility] No Panel Informationon 02-06 Interpretation and review of laboratory results Abnormal [facility] Interpretation and review of laboratory results Abnormal [facility] POC GLUCOSE - [facility] 025 Glucose [Mass/Vol] 192 mg/dL High 65-99 [facility] Glucose [Mass/Vol] 118 mg/dL High 65- [facility] Glucose [Mass/Vol] 160 mg/dL High 65-99 [facility] Glucose [Mass/Vol] 116 mg/dL High 65- [facility] Glucose [Mass/Vol] 73 mg/dL Normal 65-99 [facility] POTASSIUM LEVELon 02-06-2025 Potassium [Moles/Vol] 4.3 mmol/L Normal 3.5-5.1 [facility] Comment on above: Performed By: #### 4 6351 #### LAB [address] [place], [place] [address] Yusuf Villaseñor M.D. [id number] PT/INRon 02-06-2025 INR Coag (PPP) [Relative time] 1.2 {INR} High 0.8 - 1.1 [facility] INR Coag (PPP) [Relative time] 1.2 {INR} High 0.8-1.1 [facility] Comment on above: Order Comment: Durin g the induction phase of oral anticoagulation, the INR may not reflect the anticoagulation status of the patient. Therapeutic ranges for INR's are:Most clinical situations: INR 2.0-3.0Mechanical Prosthetic Valve: INR 2.5-3.5Critical: INR >5.0 Performed By: #### 4 6391 #### LAB [address] [place], [place] [address] Yusuf Villaseñor M.D. [id number] PT Coag (PPP) [Time] 15.3 s High 11.8-14.3 [facility] Comment on above: Order Comment: Durradha g the induction phase of oral anticoagulation, the INR may not reflect the anticoagulation status of the patient. Therapeutic ranges for INR's are:Most clinical situations: INR 2.0-3.0Mechanical Prosthetic Valve: INR 2.5-3.5Critical: INR >5.0 Performed By: #### 4 6391 #### LAB [address] [place], [place] [address] Yusuf Villaseñor M.D. [id number] Potassium Levelon 02-06-2025 Potassium [Moles/Vol] 4.3 mmol/L 3.5 - 5.1 mmol/L [facility] Potassium [Moles/Vol]on 01-10 Interpretation and review of laboratory results Normal [facility] Surgical Site Aerobic & Anae robic CultureOrdered By: Rosi Miramontes on 02-06-2025 Bacteria identified Aer cx Nom (Unsp spec) No Anaerobic Growth after 5 days [facility] Bacteria identified Aer cx Nom (Unsp spec) Moderate Growth Streptococcus agalactiae (Group B) Abnormal [facility] Interpretation and review of laboratory results Abnormal [facility] Microscopic observation Gram stain Nom (Unsp spec) Moderate WBC [facility] Microscopic observation Gram stain Nom (Unsp spec) Positive [facility] Aerobic & Anae robic CultureOrdered By: Zohra Manrique on 02-06-2025 Bacteria identified Aer cx Nom (Unsp spec) No Anaerobic Growth after 5 days [facility] Bacteria identified Aer cx Nom (Unsp spec) Moderate Growth Streptococcus agalactiae (Group B) Abnormal [facility] Interpretation and review of laboratory results Abnormal [facility] Microscopic observation Gram stain Nom (Unsp spec) Many WBC [facility] Microscopic observation Gram stain Nom (Unsp spec) Many RBC [facility] Microscopic observation Gram stain Nom (Unsp spec) Positive [facility] BASIC METABOLIC PANELon 01-09 Anion gap [Moles/Vol] 15 mmol/L Normal 10-20 [facility] Comment on above: Order Comment: [facility] has implemented the eGFR calculation approach that does not have a coefficient for race that conforms to the NKF-ASN Task Force Recommendations. Performed By: #### 4 6124 #### LAB [address] [place] [address] Yusuf Villaseñor M.D. [id number] Calcium [Mass/Vol] 8.5 mg/dL Normal 8.4-10.2 [facility] Comment on above: Order Comment: [facility] has implemented the eGFR calculation approach that does not have a coefficient for race that conforms to the NKF-ASN Task Force Recommendations. Performed By: #### 4 6124 ####[facility] LAB [address] [place] [address] Yusuf Villaseñor M.D. [id number] Chloride [Moles/Vol] 95 mmol/L Low 98-108 [facility] Comment on above: Order Comment: [facility] has implemented the eGFR calculation approach that does not have a coefficient for race that conforms to the NKF-ASN Task Force Recommendations. Performed By: #### 4 6124 ####[facility] LAB [address] [place] [address] Yusuf Villaseñor M.D. [id number] Creatinine [Mass/Vol] 1.24 mg/dL Normal 0.80-1.30 [facility] Comment on above: Order Comment: [facility] has implemented the eGFR calculation approach that does not have a coefficient for race that conforms to the NKF-ASN Task Force Recommendations. Performed By: #### 4 6129 #### LAB [address] [place] [address] Yusuf Villaseñor M.D. [id number] EGFR 59 mL/min/1.73 m2 Low >=60 [facility] Comment on above: Order Comment: [facility] has implemented the eGFR calculation approach that does not have a coefficient for race that conforms to the NKF-ASN Task Force Recommendations. Result Comment: Aide mated GFR was calculated using the 2020 CKD-EPI creatinine equation. Performed By: #### 4 6124 #### LAB [address] [place] [address] Yusuf Villaseñor M.D. [id number] Glucose [Mass/Vol] 136 mg/dL High 65-99 [facility] Comment on above: Order Comment: [facility] has implemented the eGFR calculation approach that does not have a coefficient for race that conforms to the NKF-ASN Task Force Recommendations. Performed By: #### 4 6124 #### LAB [address] [place] [address] Yusuf Villaseñor M.D. [id number] HCO3 (Bld) [Moles/Vol] 27 mmol/L Normal 21-32 [facility] Comment on above: Order Comment: [facility] has implemented the eGFR calculation approach that does not have a coefficient for race that conforms to the NKF-ASN Task Force Recommendations. Performed By: #### 4 6197 #### LAB [address] [place] [address] Yusuf Villaseñor M.D. [id number] Potassium [Moles/Vol] 4.2 mmol/L Normal 3.5-5.1 [facility] Comment on above: Order Comment: [facility] has implemented the eGFR calculation approach that does not have a coefficient for race that conforms to the NKF-ASN Task Force Recommendations. Performed By: #### 4 6124 #### LAB [address] [place], [place] [address] Yusuf Villaseñor M.D. [id number] Sodium [Moles/Vol] 133 mmol/L Low 135-145 [facility] Comment on above: Order Comment: [facility] has implemented the eGFR calculation approach that does not have a coefficient for race that conforms to the NKF-ASN Task Force Recommendations. Performed By: #### 4 6124 #### LAB [address] [place] [address] Yusuf Villaseñor M.D. [id number] Urea nitrogen [Mass/Vol] 21 mg/dL Normal 8-25 [facility] Comment on above: Order Comment: [facility] Laboratory Services has implemented the eGFR calculation approach that does not have a coefficient for race that conforms to the NKF-ASN Task Force Recommendations. Performed By: #### 4 6124 #### LAB [address] [address] Yusuf Villaseñor M.D. [id number] Urea nitrogen/Creatinine [Mass ratio] 16.9 mg/mg Normal 10.0-20.0 [facility] Comment on above: Order Comment: [facility] Services has implemented the eGFR calculation approach that does not have a coefficient for race that conforms to the NKF-ASN Task Force Recommendations. Performed By: #### 4 6124 #### LAB [address] [address] Yusuf Villaseñor M.D. [id number] Basic metabolic 2000 panelon 02-05-2025 Anion gap [Moles/Vol] 15 mmol/L 10 - 2 0 mmol/L [facility] Calcium [Mass/Vol] 8.5 mg/dL 8.4 - 10. 2 mg/dL [facility] Chloride [Moles/Vol] 95 mmol/L Low 98 - 10 8 mmol/L [facility] Creatinine [Mass/Vol] 1.24 mg/dL 0.80 - 1.30 mg/dL [facility] GFR/1.73 sq M.predicted CKD-EPI (S/P/Bld) [Vol rate/Area] 59 Low - PINF [facility] Glucose [Mass/Vol] 136 mg/dL High 65 - 99 mg/dL [place] HCO3 [Moles/Vol] 27 mmol/L 21 - 32 mmol/L [facility] Potassium [Moles/Vol] 4.2 mmol/L 3.5 - 5.1 mmol/L [facility] Sodium [Moles/Vol] 133 mmol/L Low 135 - 145 mmol/L [facility] Urea nitrogen [Mass/Vol] 21 mg/dL 8 - 25 mg/dL [facility] Urea nitrogen/Creatinine [Mass ratio] 16.9 mg/mg 10.0 - 20.0 [facility] CBC Auto Differentialon 01-09 Erythrocyte distribution width (RBC) [Entitic vol] 14.5 % 11.6 - 14.8 % [facility] Hematocrit (Bld) [Volume fraction] 24.4 % Low 41.0 - 53.0 % [facility] Hemoglobin (Bld) [Mass/Vol] 7.7 g/dL Low 13.5 - 17.5 g/dL [facility] MCH (RBC) [Entitic mass] 26.7 pg 26.0 - 34.0 pg [facility] MCHC (RBC) [Mass/Vol] 31.6 g/dL 31.0 - 37.0 g/dL [facility] MCV (RBC) [Entitic vol] 84.7 fL 80.0 - 100.0 fL [facility] Nucleated RBC (Bld) [#/Vol] 0.04 10*3/uL [facility] Nucleated RBC/100 WBC (Bld) [Ratio] 0.3 % [facility] Platelet mean volume (Bld) [Entitic vol] 8.7 fL Low 9.4 - 12.4 fL [facility] Platelets (Bld) [#/Vol] 228 10*3/uL [facility] RBC (Bld) [#/Vol] 2.88 10*6/uL Low [facility] ealth WBC (Bld) [#/Vol] 15.98 10*3/uL [facility] CBC WITH AUTO DIFFERENTIALon 02-05-2025 AUTO NRBC 0.3 % Normal [facility] Comment on above: Performed By: #### L [id number] ####[facility] LAB [address] [place], [place] [address] Yusuf Villaseñor M.D. [id number] AUTO NRBC ABS COUNT 0.04 K/mcL High 0.00-0.00 [facility] Comment on above: Performed By: #### L [id number] #### LAB [address] [address] Yusuf Villaseñor M.D. [id number] Erythrocyte distribution width (RBC) [Ratio] 14.5 % Normal 11.6-14.8 [facility] Comment on above: Performed By: #### L [id number] ####[facility] LAB [address] [address] Yusuf Villaseñor M.D. [id number] Hematocrit (Bld) [Volume fraction] 24.4 % Low 41.0-53.0 [facility] Comment on above: Performed By: #### L [id number] #### LAB [address] [address] Yusuf Villaseñor M.D. [id number] Hemoglobin (Bld) [Mass/Vol] 7.7 g/dL Low 13.5-17.5 [facility] Comment on above: Performed By: #### L [id number] #### LAB [address] [address] Yusuf Villaseñor M.D. [id number] MCH (RBC) [Entitic mass] 26.7 pg Normal 26.0-34.0 [facility] Comment on above: Performed By: #### L [id number] #### LAB [address] [address] Yusuf Villaseñor M.D. [id number] MCV (RBC) [Entitic vol] 84.7 fL Normal 80.0-100.0 [facility] Comment on above: Performed By: #### L [id number] ####[facility] LAB [address] [address] Yusuf Villaseñor M.D. [id number] MEAN CORPUSCULAR HEMOGLOBIN CONC 31.6 g/dL Normal 31.0-37.0 [facility] Comment on above: Performed By: #### L [id number] ####[facility] LAB [address] [address] Yusuf Villaseñor M.D. [id number] Platelet mean volume (Bld) [Entitic vol] 8.7 fL Low 9.4-12.4 [facility] Comment on above: Performed By: #### L [id number] ####[facility] LAB [address] [place], [place] [address] Yusuf Villaseñor M.D. [id number] Platelets (Bld) [#/Vol] 228 10*3/uL Normal 150-400 [facility] Comment on above: Performed By: #### L [id number] ####[facility] LAB [address] [address] Yusuf Villaseñor M.D. [id number] RBC (Bld) [#/Vol] 2.88 10*6/uL Low 4.50-5.90 [facility] Comment on above: Performed By: #### L [id number] ####[facility] LAB [address] [address] Yusuf Villaseñor M.D. [id number] WBC (Bld) [#/Vol] 15.98 10*3/uL High 4.50-11.00 [facility] Comment on above: Performed By: #### L [id number] ####[facility] LAB [address] [address] Yusuf Villaseñor M.D. [id number] CBC and Diff Morphologyon Ovalocytes LM Ql (Bld) [facility] Platelets LM Ql (Bld) [facility] Pol[facility] LM Ql (Bld) Moderate [facility] RBC morphology finding Nom (Bld) See Comment [facility] Glucose (Bld) [Mass/Vol]on 0 02-05-2025 Glucose [Mass/Vol] 139 mg/dL High 65 - 99 mg/dL [facility] Interpretation and review of laboratory results Abnormal [facility] Glucose [Mass/Vol] 105 mg/dL High 65 - 99 mg/dL [facility] Interpretation and review of laboratory results Abnormal [facility] Glucose [Mass/Vol] 161 mg/dL High 65 - 99 mg/dL [facility] Interpretation and review of laboratory results Abnormal [facility] Glucose [Mass/Vol] 152 mg/dL High 65 - 99 mg/dL [facility] Interpretation and review of laboratory results Abnormal [facility] HEPATIC FUNCTION PANELon Albumin [Mass/Vol] 2.9 g/dL Low 3.2-5.2 [facility] Comment on above: Performed By: #### 4 5866 #### LAB [address] [address] Yusuf Villaseñor M.D. [id number] ALP [Catalytic activity/Vol] 109 U/L Normal 40-150 [facility] Comment on above: Performed By: #### 4 5866 ####[facility] LAB [address] [address] Yusuf Villaseñor M.D. [id number] ALT [Catalytic activity/Vol] 414 U/L High 0-50 U/L [facility] Comment on above: Performed By: #### 4 5866 #### LAB [address] [address] Yusuf Villaseñor M.D. [id number] AST [Catalytic activity/Vol] 55 U/L High 0-50 U/L [facility] Comment on above: Performed By: #### 4 5866 #### LAB [address] [address] Yusuf Villaseñor M.D. [id number] Bilirubin [Mass/Vol] 0.6 mg/dL Normal 0.0-1.3 [facility] Comment on above: Performed By: #### 4 5866 ####[facility] LAB [address] [address] Yusuf Villaseñor M.D. [id number] Bilirubin.indirect [Mass/Vol] 0.3 mg/dL Normal 0.0-0.4 [facility] Comment on above: Performed By: #### 4 5866 #### LAB [address] [address] Yusuf Villaseñor M.D. [id number] Protein [Mass/Vol] 6.2 g/dL Normal 6.0-8.0 [facility] Comment on above: Performed By: #### 4 5866 #### LAB [address] [address] Yusuf Villaseñor M.D. [id number] Hepatic function 2000 panelo n 02-05-2025 Albumin [Mass/Vol] 2.9 g/dL Low 3.2 - 5.2 g/dL [facility] ALP [Catalytic activity/Vol] 109 U/L 40 - 150 U/L [facility] ALT [Catalytic activity/Vol] 414 U/L High 0 - 50 U/L [facility] AST [Catalytic activity/Vol] 55 U/L High 0 - 50 U/L [facility] Bilirubin [Mass/Vol] 0.6 mg/dL 0.0 - 1 .3 mg/dL [facility] Bilirubin.conjugated [Mass/Vol] 0.3 mg/dL 0.0 - 0.4 mg/dL [facility] Protein [Mass/Vol] 6.2 g/dL 6.0 - 8.0 g/dL [facility] INR Coag (PPP) [Relative pily e]on 02-05-2025 Interpretation and review of laboratory results Abnormal [facility] PT Coag (PPP) [Time] 15.3 s High [facility] MAGNESIUM LEVELon 02-05-2025 Magnesium [Mass/Vol] 2.0 mg/dL Normal 1.6-2.4 [facility] Comment on above: Performed By: #### 4 6109 #### LAB [address] [address] Yusuf Villaseñor M.D. [id number] MANUAL DIFFERENTIALon 2024 BASOPHILS - ABS (DIFF) 0.00 K/mcL Normal 0.00-0.30 [facility] Comment on above: Performed By: #### 4 5456 #### LAB [address] [id number] Yusuf Villaseñor M.D. [id number] BASOPHILS - REL (DIFF) 0.0 % Normal [facility] Comment on above: Performed By: #### 4 5456 #### LAB [address] [address] Yusuf Villaseñor M.D. [id number] EOSINOPHILS - ABS (DIFF) 0.16 K/mcL Normal 0.00-0.50 [facility] Comment on above: Performed By: #### 4 5403 #### LAB [address] [address] Yusuf Villaseñor M.D. [id number] EOSINOPHILS - REL (DIFF) 1.0 % [facility] Comment on above: Performed By: #### 4 5483 #### LAB [address] [address] Yusuf Villaseñor M.D. [id number] LYMPHOCYTES - ABS (DIFF) 1.44 K/mcL Normal 0.90-4.00 [facility] Comment on above: Performed By: #### 4 5456 #### LAB [address] [address] Yusuf Villaseñor M.D. [id number] LYMPHOCYTES - REL (DIFF) 9.0 % [facility] Comment on above: Performed By: #### 4 1274 #### LAB [address] [address] Yusuf Villaseñor M.D. [id number] METAMYELOCYTES-REL (DIFF) 3.0 % [facility] Comment on above: Performed By: #### 4 6256 #### LAB [address] [address] Yusuf Villaseñor M.D. [id number] MONOCYTES - ABS (DIFF) 1.12 K/mcL High 0.30-0.90 [facility] Comment on above: Performed By: #### 4 0756 #### LAB [address] [address] Yusuf Villaseñor M.D. [id number] MONOCYTES - REL (DIFF) 7.0 % Normal [facility] Comment on above: Performed By: #### 4 2296 #### LAB [address] [address] Yusuf Villaseñor M.D. [id number] MYELOCYTES RELATIVE PERCENT 2.0 % [facility] Comment on above: Performed By: #### 4 8688 ####[facility] LAB [address] [id number] Yusuf Villaseñor M.D. [id number] NEUTROPHILS - ABS (DIFF) 13.26 K/mcL High 1.70-7.00 [facility] Comment on above: Performed By: #### 4 5456 ####[facility] LAB [address] [address] Yusuf Villaseñor M.D. [id number] NEUTROPHILS - REL (DIFF) 78.0 % Normal [facility] Comment on above: Performed By: #### 4 5456 #### LAB [address] [address] Yusuf Villaseñor M.D. [id number] MORPHOLOGYon 02-05-2025 OVAL SCAN Few Normal [facility] Comment on above: Performed By: #### L [id number] ####[facility] LAB [address] [address] Yusuf Villaseñor M.D. [id number] PLATELET ESTIMATE Normal Normal Normal [facility] Comment on above: Performed By: #### L [id number] ####[facility] LAB [address] [address] Yusuf Villaseñor M.D. [id number] POLY SCAN Moderate Normal [facility] Comment on above: Performed By: #### L [id number] ####[facility] LAB [address] [address] Yusuf Villaseñor M.D. [id number] RBC MORPH SCAN See Comment Normal [facility] Comment on above: Result Comment: RBC Indices confirmed with manual peripheral smear review. Performed By: #### L [id number] ####[facility] LAB [address] [address] Yusuf Villaseñor M.D. [id number] Magnesium Levelon 02-05-2025 Magnesium [Mass/Vol] 2 mg/dL 1.6 - 2 .4 mg/dL [facility] Magnesium [Mass/Vol]on 02-05 Interpretation and review of laboratory results Normal [facility] Manual Differential panel (B ld)on 02-05-2025 Basophils (Bld) [#/Vol] 0 10*3/uL [facility] Basophils/100 WBC (Bld) 0 % [facility] Eosinophils (Bld) [#/Vol] 0.16 10*3/uL [facility] Eosinophils/100 WBC (Bld) 1 % [facility] Lymphocytes (Bld) [#/Vol] 1.44 10*3/uL [facility] Lymphocytes/100 WBC (Bld) 9 % [facility] Metamyelocytes/100 WBC (Bld) 3 % [facility] Monocytes (Bld) [#/Vol] 1.12 10*3/uL High [facility] Monocytes/100 WBC (Bld) 7 % [facility] Myelocytes/100 WBC (Bld) 2 % [facility] Neutrophils (Bld) [#/Vol] 13.26 10*3/uL High [facility] Neutrophils/100 WBC (Bld) 78 % [facility] No Panel Informationon 02-05 Interpretation and review of laboratory results Abnormal [facility] Interpretation and review of laboratory results Abnormal [facility] POC GLUCOSE - [facility] 025 Glucose [Mass/Vol] 139 mg/dL High 65-[address] [place] [address] Glucose [Mass/Vol] 105 mg/dL High [address] [place] [address] Glucose [Mass/Vol] 161 mg/dL High [address] Glucose [Mass/Vol] 152 mg/dL High -[address] [place] [address] PT/INRon 02-05-2025 INR Coag (PPP) [Relative time] 1.2 {INR} High 0.8 - 1.1 [facility] INR Coag (PPP) [Relative time] 1.2 {INR} High 0.8-1.1 [facility] Comment on above: Order Comment: Annie nicole the induction phase of oral anticoagulation, the INR may not reflect the anticoagulation status of the patient. Therapeutic ranges for INR's are:Most clinical situations: INR 2.0-3.0Mechanical Prosthetic Valve: INR 2.5-3.5Critical: INR >5.0 Performed By: #### 4 6391 #### LAB [address] [place], [place] [address] Yusuf Villaseñor M.D. [id number] PT Coag (PPP) [Time] 15.3 s High 11.8-14.3 [facility] Comment on above: Order Comment: Annie nicole the induction phase of oral anticoagulation, the INR may not reflect the anticoagulation status of the patient. Therapeutic ranges for INR's are:Most clinical situations: INR 2.0-3.0Mechanical Prosthetic Valve: INR 2.5-3.5Critical: INR >5.0 Performed By: #### 4 6391 #### LAB [address] [place], [place] [address] Yusuf Villaseñor M.D. [id number] BASIC METABOLIC PANELon 07-2 Anion gap [Moles/Vol] 15 mmol/L Normal 10-20 [facility] Comment on above: Order Comment: [facility] has implemented the eGFR calculation approach that does not have a coefficient for race that conforms to the NKF-ASN Task Force Recommendations. Performed By: #### 4 6124 #### LAB [address] [address] Yusuf Villaseñor M.D. [id number] Calcium [Mass/Vol] 8.5 mg/dL Normal 8.4-10.2 [facility] Comment on above: Order Comment: [facility] has implemented the eGFR calculation approach that does not have a coefficient for race that conforms to the NKF-ASN Task Force Recommendations. Performed By: #### 4 6124 #### LAB [address] [place], [place] [address] Yusuf Villaseñor M.D. [id number] Chloride [Moles/Vol] 95 mmol/L Low 98-108 [facility] Comment on above: Order Comment: [facility] has implemented the eGFR calculation approach that does not have a coefficient for race that conforms to the NKF-ASN Task Force Recommendations. Performed By: #### 4 6101 #### LAB [address] [address] Yusuf Villaseñor M.D. [id number] Creatinine [Mass/Vol] 1.32 mg/dL High 0.80-1.30 [facility] Comment on above: Order Comment: [facility] has implemented the eGFR calculation approach that does not have a coefficient for race that conforms to the NKF-ASN Task Force Recommendations. Performed By: #### 4 6124 #### LAB [address] [address] Yusuf Villaseñor M.D. [id number] EGFR 55 mL/min/1.73 m2 Low >=60 [facility] Comment on above: Order Comment: [facility] has implemented the eGFR calculation approach that does not have a coefficient for race that conforms to the NKF-ASN Task Force Recommendations. Result Comment: Aide mated GFR was calculated using the 2020 CKD-EPI creatinine equation. Performed By: #### 4 6124 #### LAB [address] [address] Yusuf Villaseñor M.D. [id number] Glucose [Mass/Vol] 104 mg/dL High 65-99 [facility] Comment on above: Order Comment: [facility] has implemented the eGFR calculation approach that does not have a coefficient for race that conforms to the NKF-ASN Task Force Recommendations. Performed By: #### 4 6124 #### LAB [address] [address] Yusuf Villaseñor M.D. [id number] HCO3 (Bld) [Moles/Vol] 27 mmol/L Normal 21-32 [facility] Comment on above: Order Comment: [facility] has implemented the eGFR calculation approach that does not have a coefficient for race that conforms to the NKF-ASN Task Force Recommendations. Performed By: #### 4 6124 ####[facility] LAB [address] [address] Yusuf Villaseñor M.D. [id number] Potassium [Moles/Vol] 4.3 mmol/L Normal 3.5-5.1 [facility] Comment on above: Order Comment: [facility] has implemented the eGFR calculation approach that does not have a coefficient for race that conforms to the NKF-ASN Task Force Recommendations. Performed By: #### 4 6124 #### LAB [address] [address] Yusuf Villaseñor M.D. [id number] Sodium [Moles/Vol] 133 mmol/L Low 135-145 [facility] Comment on above: Order Comment: [facility] has implemented the eGFR calculation approach that does not have a coefficient for race that conforms to the NKF-ASN Task Force Recommendations. Performed By: #### 4 6124 #### LAB [address] [place], [place] [address] Yusuf Villaseñor M.D. [id number] Urea nitrogen [Mass/Vol] 30 mg/dL High 8-25 [facility] Comment on above: Order Comment: [facility] has implemented the eGFR calculation approach that does not have a coefficient for race that conforms to the NKF-ASN Task Force Recommendations. Performed By: #### 4 6124 #### LAB [address] [address] Yusuf Villaseñor M.D. [id number] Urea nitrogen/Creatinine [Mass ratio] 22.7 mg/mg High 10.0-20.0 [facility] Comment on above: Order Comment: [facility] has implemented the eGFR calculation approach that does not have a coefficient for race that conforms to the NKF-ASN Task Force Recommendations. Performed By: #### 4 6124 #### LAB [address] [address] Yusuf Villaseñor M.D. [id number] BLOOD CULTURE AEROBIC/ANAERO BICon 02-04-2025 BLOOD CULTURE AEROBIC/ANAEROBIC BLOOD CULTURE No Growth after 5 days Normal [facility] Comment on above: Performed By: #### 4 4014 ####[facility] [address] [address] Giorgio Williamson M.D. [id number] Bacteria identified Cx Nom ( Bld)on 02-04-2025 Interpretation and review of laboratory results Normal [facility] Basic metabolic 2000 panelon 02-04-2025 Anion gap [Moles/Vol] 15 mmol/L 10 - 2 0 mmol/L [facility] Calcium [Mass/Vol] 8.5 mg/dL 8.4 - 10. 2 mg/dL [facility] Chloride [Moles/Vol] 95 mmol/L Low 98 - 10 8 mmol/L [facility] Creatinine [Mass/Vol] 1.32 mg/dL High 0.80 - 1.30 mg/dL [facility] GFR/1.73 sq M.predicted CKD-EPI (S/P/Bld) [Vol rate/Area] 55 Low - PINF [facility] Glucose [Mass/Vol] 104 mg/dL High 65 - 99 mg/dL [facility] HCO3 [Moles/Vol] 27 mmol/L 21 - 32 mmol/L [facility] Potassium [Moles/Vol] 4.3 mmol/L 3.5 - 5.1 mmol/L [facility] Sodium [Moles/Vol] 133 mmol/L Low 135 - 145 mmol/L [facility] Urea nitrogen [Mass/Vol] 30 mg/dL High 8 - 25 mg/dL [facility] Urea nitrogen/Creatinine [Mass ratio] 22.7 mg/mg High 10.0 - 20.0 [facility] CBC Auto Differentialon 01-09 Erythrocyte distribution width (RBC) [Entitic vol] 14.5 % 11.6 - 14.8 % [facility] Hematocrit (Bld) [Volume fraction] 25.8 % Low 41.0 - 53.0 % [facility] Hemoglobin (Bld) [Mass/Vol] 8.2 g/dL Low 13.5 - 17.5 g/dL [facility] MCH (RBC) [Entitic mass] 26.3 pg 26.0 - 34.0 pg [facility] MCHC (RBC) [Mass/Vol] 31.8 g/dL 31.0 - 37.0 g/dL [facility] MCV (RBC) [Entitic vol] 82.7 fL 80.0 - 100.0 fL [facility] Nucleated RBC (Bld) [#/Vol] 0.05 10*3/uL High [facility] Nucleated RBC/100 WBC (Bld) [Ratio] 0.3 % [facility] Platelet mean volume (Bld) [Entitic vol] 8.9 fL Low 9.4 - 12.4 fL [facility] Platelets (Bld) [#/Vol] 211 10*3/uL [facility] RBC (Bld) [#/Vol] 3.12 10*6/uL Low [facility] WBC (Bld) [#/Vol] 14.49 10*3/uL [facility] CBC WITH AUTO DIFFERENTIALon 02-04-2025 AUTO NRBC 0.3 % Normal [facility] Comment on above: Performed By: #### L [id number] #### LAB [address] [address] Yusuf Villaseñor M.D. [id number] AUTO NRBC ABS COUNT 0.05 K/mcL High 0.00-0.00 [facility] Comment on above: Performed By: #### L [id number] ####[facility] LAB [address] [address] Ysuuf Villaseñor M.D. [id number] Erythrocyte distribution width (RBC) [Ratio] 14.5 % Normal 11.6-14.8 [facility] Comment on above: Performed By: #### L [id number] #### LAB [address] [address] Yusuf Villaseñor M.D. [id number] Hematocrit (Bld) [Volume fraction] 25.8 % Low 41.0-53.0 [facility] Comment on above: Performed By: #### L [id number] ####[facility] LAB [address] [address] Yusuf Villaseñor M.D. [id number] Hemoglobin (Bld) [Mass/Vol] 8.2 g/dL Low 13.5-17.5 [facility] Comment on above: Performed By: #### L [id number] #### LAB [address] [address] Yusuf Villaseñor M.D. [id number] MCH (RBC) [Entitic mass] 26.3 pg Normal 26.0-34.0 [facility] Comment on above: Performed By: #### L [id number] ####[facility] LAB [address] [place] [address] Yusuf Villaseñor M.D. [id number] MCV (RBC) [Entitic vol] 82.7 fL Normal 80.0-100.0 [facility] Comment on above: Performed By: #### L [id number] #### LAB [address] [place] [address] Yusuf Villaseñor M.D. [id number] MEAN CORPUSCULAR HEMOGLOBIN CONC 31.8 g/dL Normal 31.0-37.0 [facility] Comment on above: Performed By: #### L [id number] #### LAB [address] [address] Yusuf Villaseñor M.D. [id number] Platelet mean volume (Bld) [Entitic vol] 8.9 fL Low 9.4-12.4 [facility] Comment on above: Performed By: #### L [id number] ####[facility] LAB [address] [address] Yusuf Villaseñor M.D. [id number] Platelets (Bld) [#/Vol] 211 10*3/uL Normal 150-400 [facility] Comment on above: Performed By: #### L [id number] ####[facility] LAB [address] [address] Yusuf Villaseñor M.D. [id number] RBC (Bld) [#/Vol] 3.12 10*6/uL Low 4.50-5.90 [facility] Comment on above: Performed By: #### L [id number] ####[facility] LAB [address] [address] Yusuf Villaseñor M.D. [id number] WBC (Bld) [#/Vol] 14.49 10*3/uL High 4.50-11.00 [facility] Comment on above: Performed By: #### L [id number] ####[facility] LAB [address] [address] Yusuf Villaseñor M.D. [id number] CBC and Diff Morphologyon Platelets LM Ql (Bld) Normal Normal [facility] Polychromasia LM Ql (Bld) Moderate [facility] RBC morphology finding Nom (Bld) See Comment [facility] CONSULTon 02-04-2025 CONSULT Normal [facility] ECHOCARDIOGRAM TRANSESOPHAGE Antonia 02-04-2025 ECHOCARDIOGRAM TRANSESOPHAGEAL Normal [facility] Glucose (Bld) [Mass/Vol]on 0 02-04-2025 Glucose [Mass/Vol] 200 mg/dL High 65 - 99 mg/dL [facility] Interpretation and review of laboratory results Abnormal [facility] Glucose [Mass/Vol] 141 mg/dL High 65 - 99 mg/dL [facility] Interpretation and review of laboratory results Abnormal [facility] Glucose [Mass/Vol] 141 mg/dL High 65 - 99 mg/dL [facility] Interpretation and review of laboratory results Abnormal [facility] Glucose [Mass/Vol] 113 mg/dL High 65 - 99 mg/dL [facility] Interpretation and review of laboratory results Abnormal [facility] Glucose [Mass/Vol] 111 mg/dL High 65 - 99 mg/dL [facility] Interpretation and review of laboratory results Abnormal [facility] HEPATIC FUNCTION PANELon Albumin [Mass/Vol] 2.8 g/dL Low 3.2-5.2 [facility] Comment on above: Performed By: #### 4 5866 #### LAB [address] [address] Yusuf Villaseñor M.D. [id number] ALP [Catalytic activity/Vol] 106 U/L Normal 40-150 [facility] Comment on above: Performed By: #### 4 [id number] #### LAB [address] [address] Yusuf Villaseñor M.D. [id number] ALT [Catalytic activity/Vol] 570 U/L High 0-50 U/L [facility] Comment on above: Performed By: #### 4 [id number] #### LAB [address] [address] Yusuf Villaseñor M.D. [id number] AST [Catalytic activity/Vol] 81 U/L High 0-50 U/L [facility] Comment on above: Performed By: #### 4 [id number] #### LAB [address] [address] Yusuf Villaseñor M.D. [id number] Bilirubin [Mass/Vol] 0.6 mg/dL Normal 0.0-1.3 [facility] Comment on above: Performed By: #### 4 5866 ####[facility] LAB [address] [id number] Yusuf Villaseñor M.D. [id number] Bilirubin.indirect [Mass/Vol] 0.4 mg/dL Normal 0.0-0.4 [facility] Comment on above: Performed By: #### 4 5866 #### LAB [address] [address] Yusuf Villaseñor M.D. [id number] Protein [Mass/Vol] 6.0 g/dL Normal 6.0-8.0 [facility] Comment on above: Performed By: #### 4 [id number] #### LAB [address] [id number] Yusuf Villaseñor M.D. [id number] Hepatic function 2000 panelo n 02-04-2025 Albumin [Mass/Vol] 2.8 g/dL Low 3.2 - 5.2 g/dL [facility] ALP [Catalytic activity/Vol] 106 U/L 40 - 150 U/L [facility] ALT [Catalytic activity/Vol] 570 U/L High 0 - 50 U/L [facility] AST [Catalytic activity/Vol] 81 U/L High 0 - 50 U/L [facility] Bilirubin [Mass/Vol] 0.6 mg/dL 0.0 - 1 .3 mg/dL [facility] Bilirubin.conjugated [Mass/Vol] 0.4 mg/dL 0.0 - 0.4 mg/dL [facility] Protein [Mass/Vol] 6 g/dL 6.0 - 8.0 g/dL [facility] INR Coag (PPP) [Relative pily e]on 02-04-2025 Interpretation and review of laboratory results Abnormal [facility] PT Coag (PPP) [Time] 15.5 s High [facility] - Microbiology an d Antimicrobial susceptibilityon 02-04-2025 Bacteria identified Cx Nom (Bld) No Growth after 5 days [facility] MAGNESIUM LEVELon 02-04-2025 Magnesium [Mass/Vol] 1.9 mg/dL Normal 1.6-2.4 [facility] Comment on above: Performed By: #### 4 6109 #### LAB [address] [address] Yusuf Villaseñor M.D. [id number] MANUAL DIFFERENTIALon 2024 BASOPHILS - ABS (DIFF) 0.00 K/mcL Normal 0.00-0.30 [facility] Comment on above: Performed By: #### 4 [id number] #### LAB [address] [address] Yusuf Villaseñor M.D. [id number] BASOPHILS - REL (DIFF) 0.0 % Normal [facility] Comment on above: Performed By: #### 4 [id number] #### LAB [address] [address] Yusuf Villaseñor M.D. [id number] EOSINOPHILS - ABS (DIFF) 0.29 K/mcL Normal 0.00-0.50 [facility] Comment on above: Performed By: #### 4 [id number] #### LAB [address] [address] Yusuf Villaseñor M.D. [id number] EOSINOPHILS - REL (DIFF) 2.0 % [facility] Comment on above: Performed By: #### 4 [id number] #### LAB [address] [address] Yusuf Villaseñor M.D. [id number] LYMPHOCYTES - ABS (DIFF) 1.59 K/mcL Normal 0.90-4.00 [facility] Comment on above: Performed By: #### 4 [id number] #### LAB [address] [address] Yusuf Villaseñor M.D. [id number] LYMPHOCYTES - REL (DIFF) 11.0 % [facility] Comment on above: Performed By: #### 4 [id number] #### LAB [address] [address] Yusuf Villaseñor M.D. [id number] METAMYELOCYTES-REL (DIFF) 8.0 % [facility] Comment on above: Performed By: #### 4 5481 #### LAB [address] [address] Yusuf Villaseñor M.D. [id number] MONOCYTES - ABS (DIFF) 0.87 K/mcL Normal 0.30-0.90 [facility] Comment on above: Performed By: #### 4 [id number] #### LAB [address] [address] Yusuf Villaseñor M.D. [id number] MONOCYTES - REL (DIFF) 6.0 % Normal [facility] Comment on above: Performed By: #### 4 [id number] #### LAB [address] [address] Yusuf Villaseñor M.D. [id number] MYELOCYTES RELATIVE PERCENT 2.0 % Normal [facility] Comment on above: Performed By: #### 4 [id number] #### LAB [address] [address] Yusuf Villaseñor M.D. [id number] NEUTROPHILS - ABS (DIFF) 11.74 K/mcL High 1.70-7.00 [facility] Comment on above: Performed By: #### 4 [id number] #### LAB [address] [address] Yusuf Villaseñor M.D. [id number] NEUTROPHILS - REL (DIFF) 71.0 % [facility] Comment on above: Performed By: #### 4 [id number] #### LAB [address] [address] Yusuf Villaseñor M.D. [id number] MORPHOLOGYon 02-04-2025 PLATELET ESTIMATE Normal Normal [facility] Comment on above: Performed By: #### L [id number] #### LAB [address] [address] Yusuf Villaseñor M.D. [id number] POLY SCAN Moderate [facility] Comment on above: Performed By: #### L [id number] ####[facility] LAB [address] [address] Yusuf Villaseñor M.D. [id number] RBC MORPH SCAN See Comment [facility] Comment on above: Result Comment: RBC Indices confirmed with manual peripheral smear review. Performed By: #### L [id number] ####[facility] LAB [address] [address] Yusuf Villaseñor M.D. [id number] Magnesium Levelon 02-04-2025 Magnesium [Mass/Vol] 1.9 mg/dL 1.6 - 2 .4 mg/dL [facility] Magnesium [Mass/Vol]on 02-04 Interpretation and review of laboratory results Normal [facility] Manual Differential panel (B ld)on 02-04-2025 Basophils (Bld) [#/Vol] 0 10*3/uL [facility] Basophils/100 WBC (Bld) 0 % [facility] Eosinophils (Bld) [#/Vol] 0.29 10*3/uL [facility] Eosinophils/100 WBC (Bld) 2 % [facility] Lymphocytes (Bld) [#/Vol] 1.59 10*3/uL [facility] Lymphocytes/100 WBC (Bld) 11 % [facility] Metamyelocytes/100 WBC (Bld) 8 % [facility] Monocytes (Bld) [#/Vol] 0.87 10*3/uL [facility] Monocytes/100 WBC (Bld) 6 % [facility] Myelocytes/100 WBC (Bld) 2 % [facility] Neutrophils (Bld) [#/Vol] 11.74 10*3/uL High [facility] Neutrophils/100 WBC (Bld) 71 % [facility] No Panel Informationon 02-04 Interpretation and review of laboratory results Abnormal [facility] Interpretation and review of laboratory results Abnormal [facility] POC GLUCOSE - [facility] 025 Glucose [Mass/Vol] 200 mg/dL High 65-99 [facility] Glucose [Mass/Vol] 141 mg/dL High 65-99 [facility] Glucose [Mass/Vol] 141 mg/dL High 65-99 [facility] Glucose [Mass/Vol] 113 mg/dL High 65-99 [facility] Glucose [Mass/Vol] 111 mg/dL High 65-[address] [place] [address] PT/INRon 02-04-2025 INR Coag (PPP) [Relative time] 1.2 {INR} High 0.8 - 1.1 [facility] INR Coag (PPP) [Relative time] 1.2 {INR} High 0.8-1.1 [facility] Comment on above: Order Comment: Annie nicole the induction phase of oral anticoagulation, the INR may not reflect the anticoagulation status of the patient. Therapeutic ranges for INR's are:Most clinical situations: INR 2.0-3.0Mechanical Prosthetic Valve: INR 2.5-3.5Critical: INR >5.0 Performed By: #### 4 6391 #### LAB [address] [place], [place] [address] Yusuf Villaseñor M.D. [id number] PT Coag (PPP) [Time] 15.5 s High 11.8-14.3 [facility] Comment on above: Order Comment: Annie nicole the induction phase of oral anticoagulation, the INR may not reflect the anticoagulation status of the patient. Therapeutic ranges for INR's are:Most clinical situations: INR 2.0-3.0Mechanical Prosthetic Valve: INR 2.5-3.5Critical: INR >5.0 Performed By: #### 4 6391 #### LAB [address] [place], [place] [address] Yusuf Villaseñor M.D. [id number] Wound Aerobic And Anaerobic Cultureon 02-04-2025 Bacteria identified Aer cx Nom (Unsp spec) No Anaerobic Growth after 5 days [facility] Bacteria identified Aer cx Nom (Unsp spec) Moderate Growth Streptococcus agalactiae (Group B) Abnormal [facility] Interpretation and review of laboratory results Abnormal [facility] Microscopic observation Gram stain Nom (Unsp spec) Rare WBC [facility] Microscopic observation Gram stain Nom (Unsp spec) Many RBC [facility] Microscopic observation Gram stain Nom (Unsp spec) Positive [facility] BASIC METABOLIC PANELon 01-09 Anion gap [Moles/Vol] 14 mmol/L Normal 10-20 [facility] Comment on above: Order Comment: [facility] has implemented the eGFR calculation approach that does not have a coefficient for race that conforms to the NKF-ASN Task Force Recommendations. Performed By: #### 4 6124 #### LAB [address] [place], [place] [address] Yusuf Villaseñor M.D. [id number] Calcium [Mass/Vol] 8.5 mg/dL Normal 8.4-10.2 [facility] Comment on above: Order Comment: [facility] has implemented the eGFR calculation approach that does not have a coefficient for race that conforms to the NKF-ASN Task Force Recommendations. Performed By: #### 4 6124 #### LAB [address] [place], [place] [address] Yuusf Villaseñor M.D. [id number] Chloride [Moles/Vol] 93 mmol/L Low 98-108 [facility] Comment on above: Order Comment: [facility] has implemented the eGFR calculation approach that does not have a coefficient for race that conforms to the NKF-ASN Task Force Recommendations. Performed By: #### 4 6124 ####[facility] LAB [address] [address] Yusuf Villaseñor M.D. [id number] Creatinine [Mass/Vol] 1.50 mg/dL High 0.80-1.30 [facility] Comment on above: Order Comment: [facility] has implemented the eGFR calculation approach that does not have a coefficient for race that conforms to the NKF-ASN Task Force Recommendations. Performed By: #### 4 6124 #### LAB [address] [address] Yusuf Villaseñor M.D. [id number] EGFR 47 mL/min/1.73 m2 Low >=60 [facility] Comment on above: Order Comment: [facility] has implemented the eGFR calculation approach that does not have a coefficient for race that conforms to the NKF-ASN Task Force Recommendations. Result Comment: Aide mated GFR was calculated using the 2020 CKD-EPI creatinine equation. Performed By: #### 4 6124 ####[facility] LAB [address] [address] Yusuf Villaseñor M.D. [id number] Glucose [Mass/Vol] 69 mg/dL Normal 65-99 [facility] Comment on above: Order Comment: [facility] has implemented the eGFR calculation approach that does not have a coefficient for race that conforms to the NKF-ASN Task Force Recommendations. Performed By: #### 4 6124 #### LAB [address] [address] Yusuf Villaseñor M.D. [id number] HCO3 (Bld) [Moles/Vol] 28 mmol/L Normal 21-32 [facility] Comment on above: Order Comment: [facility] has implemented the eGFR calculation approach that does not have a coefficient for race that conforms to the NKF-ASN Task Force Recommendations. Performed By: #### 4 6124 #### LAB [address] [id number] Yusuf Villaseñor M.D. [id number] Potassium [Moles/Vol] 4.5 mmol/L Normal 3.5-5.1 [facility] Comment on above: Order Comment: [facility] has implemented the eGFR calculation approach that does not have a coefficient for race that conforms to the NKF-ASN Task Force Recommendations. Performed By: #### 4 6124 #### LAB [address] [address] Yusuf Villaseñor M.D. [id number] Sodium [Moles/Vol] 130 mmol/L Low 135-145 [facility] Comment on above: Order Comment: [facility] has implemented the eGFR calculation approach that does not have a coefficient for race that conforms to the NKF-ASN Task Force Recommendations. Performed By: #### 4 6124 #### LAB [address] [id number] Yusuf Villaseñor M.D. [id number] Urea nitrogen [Mass/Vol] 42 mg/dL High 8-25 [facility] Comment on above: Order Comment: [facility] has implemented the eGFR calculation approach that does not have a coefficient for race that conforms to the NKF-ASN Task Force Recommendations. Performed By: #### 4 6124 #### LAB [address] [address] Yusuf Villaseñor M.D. [id number] Urea nitrogen/Creatinine [Mass ratio] 28.0 mg/mg High 10.0-20.0 [facility] Comment on above: Order Comment: [facility] has implemented the eGFR calculation approach that does not have a coefficient for race that conforms to the NKF-ASN Task Force Recommendations. Performed By: #### 4 6124 ####[facility] LAB [address] [place], [place] [address] Yusuf Villaseñor M.D. [id number] Basic metabolic 2000 panelon 02-03-2025 Anion gap [Moles/Vol] 14 mmol/L 10 - 2 0 mmol/L [facility] Calcium [Mass/Vol] 8.5 mg/dL 8.4 - 10. 2 mg/dL [facility] Chloride [Moles/Vol] 93 mmol/L Low 98 - 10 8 mmol/L [facility] Creatinine [Mass/Vol] 1.5 mg/dL High 0.80 - 1.30 mg/dL [facility] GFR/1.73 sq M.predicted CKD-EPI (S/P/Bld) [Vol rate/Area] 47 Low - PINF [facility] Glucose [Mass/Vol] 69 mg/dL 65 - 99 mg/dL [facility] HCO3 [Moles/Vol] 28 mmol/L 21 - 32 mmol/L [facility] Interpretation and review of laboratory results Abnormal [facility] Potassium [Moles/Vol] 4.5 mmol/L 3.5 - 5.1 mmol/L [facility] Sodium [Moles/Vol] 130 mmol/L Low 135 - 145 mmol/L [facility] Urea nitrogen [Mass/Vol] 42 mg/dL High 8 - 25 mg/dL [facility] Urea nitrogen/Creatinine [Mass ratio] 28 mg/mg High 10.0 - 20.0 [facility] CBC Auto Differentialon 01-09 Erythrocyte distribution width (RBC) [Entitic vol] 14.3 % 11.6 - 14.8 % [facility] Hematocrit (Bld) [Volume fraction] 26.7 % Low 41.0 - 53.0 % [facility] Hemoglobin (Bld) [Mass/Vol] 8.4 g/dL Low 13.5 - 17.5 g/dL [facility] MCH (RBC) [Entitic mass] 26.3 pg 26.0 - 34.0 pg [facility] MCHC (RBC) [Mass/Vol] 31.5 g/dL 31.0 - 37.0 g/dL [facility] MCV (RBC) [Entitic vol] 83.4 fL 80.0 - 100.0 fL [facility] Nucleated RBC (Bld) [#/Vol] 0.07 10*3/uL High [facility] Nucleated RBC/100 WBC (Bld) [Ratio] 0.4 % [facility] Platelet mean volume (Bld) [Entitic vol] 9.2 fL Low 9.4 - 12.4 fL [facility] Platelets (Bld) [#/Vol] 181 10*3/uL [facility] RBC (Bld) [#/Vol] 3.2 10*6/uL Low [facility] alth WBC (Bld) [#/Vol] 16.16 10*3/uL [facility] CBC WITH AUTO DIFFERENTIALon 02-03-2025 AUTO NRBC 0.4 % Normal [facility] Comment on above: Performed By: #### L [id number] #### LAB [address] [address] Yusuf Villaseñor M.D. [id number] AUTO NRBC ABS COUNT 0.07 K/mcL High 0.00-0.00 [facility] Comment on above: Performed By: #### L [id number] #### LAB [address] [address] Yusuf Villaseñor M.D. [id number] Erythrocyte distribution width (RBC) [Ratio] 14.3 % Normal 11.6-14.8 [facility] Comment on above: Performed By: #### L [id number] #### LAB [address] [address] Yusuf Villaseñor M.D. [id number] Hematocrit (Bld) [Volume fraction] 26.7 % Low 41.0-53.0 [facility] Comment on above: Performed By: #### L [id number] #### LAB [address] [address] Yusuf Villaseñor M.D. [id number] Hemoglobin (Bld) [Mass/Vol] 8.4 g/dL Low 13.5-17.5 [facility] Comment on above: Performed By: #### L [id number] #### LAB [address] [place] [address] Yusuf Villaseñor M.D. [id number] MCH (RBC) [Entitic mass] 26.3 pg Normal 26.0-34.0 [facility] Comment on above: Performed By: #### L [id number] #### LAB [address] [address] Yusuf Villaseñor M.D. [id number] MCV (RBC) [Entitic vol] 83.4 fL Normal 80.0-100.0 [facility] Comment on above: Performed By: #### L [id number] #### LAB [address] [address] Yusuf Villaseñor M.D. [id number] MEAN CORPUSCULAR HEMOGLOBIN CONC 31.5 g/dL Normal 31.0-37.0 [facility] Comment on above: Performed By: #### L [id number] #### LAB [address] [address] Yusuf Villaseñor M.D. [id number] Platelet mean volume (Bld) [Entitic vol] 9.2 fL Low 9.4-12.4 [facility] Comment on above: Performed By: #### L [id number] #### LAB [address] [address] Yusuf Villaseñor M.D. [id number] Platelets (Bld) [#/Vol] 181 10*3/uL Normal 150-400 [facility] Comment on above: Performed By: #### L [id number] #### LAB [address] [address] Yusuf Villaseñor M.D. [id number] RBC (Bld) [#/Vol] 3.20 10*6/uL Low 4.50-5.90 [facility] Comment on above: Performed By: #### L [id number] ####[facility] LAB [address] [address] Yusuf Villaseñor M.D. [id number] WBC (Bld) [#/Vol] 16.16 10*3/uL High 4.50-11.00 [facility] Comment on above: Performed By: #### L [id number] ####[facility] LAB [address] [address] Yusuf Villaseñor M.D. [id number] CBC and Diff Morphologyon Ovalocytes LM Ql (Bld) Few [facility] Platelets LM Ql (Bld) Normal Normal [place] Polychromasia LM Ql (Bld) Few [facility] RBC morphology finding Nom (Bld) See Comment [facility] Glucose (Bld) [Mass/Vol]on 0 02-03-2025 Glucose [Mass/Vol] 136 mg/dL High 65 - 99 mg/dL [place] Interpretation and review of laboratory results Abnormal [facility] Glucose [Mass/Vol] 200 mg/dL High 65 - 99 mg/dL [place] Interpretation and review of laboratory results Abnormal [facility] Glucose [Mass/Vol] 224 mg/dL High 65 - 99 mg/dL [place] Interpretation and review of laboratory results Abnormal [facility] Glucose [Mass/Vol] 73 mg/dL 65 - 99 mg/dL [place] Interpretation and review of laboratory results Normal [facility] Glucose [Mass/Vol] 79 mg/dL 65 - 99 mg/dL [place] Interpretation and review of laboratory results Normal [facility] HEPATIC FUNCTION PANELon Albumin [Mass/Vol] 2.7 g/dL Low 3.2-5.2 [facility] Comment on above: Performed By: #### 4 5866 ####[facility] LAB [address] [place], [place] [address] Yusuf Villaseñor M.D. [id number] ALP [Catalytic activity/Vol] 111 U/L Normal 40-150 [facility] Comment on above: Performed By: #### 4 5866 ####[facility] LAB [address] [place], [place] [address] Yusuf Villaseñor M.D. [id number] ALT [Catalytic activity/Vol] 841 U/L High 0-50 U/L [facility] Comment on above: Performed By: #### 4 5866 ####[facility] LAB [address] [place], [place] [address] Yusuf Villaseñor M.D. [id number] AST [Catalytic activity/Vol] 149 U/L High 0-50 U/L [facility] Comment on above: Performed By: #### 4 5866 #### LAB [address] [address] Yusuf Villaseñor M.D. [id number] Bilirubin [Mass/Vol] 0.6 mg/dL Normal 0.0-1.3 [facility] Comment on above: Performed By: #### 4 5866 #### LAB [address] [id number] Yusuf Villaseñor M.D. [id number] Bilirubin.indirect [Mass/Vol] 0.4 mg/dL Normal 0.0-0.4 [facility] Comment on above: Performed By: #### 4 5866 #### LAB [address] [address] Yusuf Villaseñor M.D. [id number] Protein [Mass/Vol] 5.8 g/dL Low 6.0-8.0 [facility] Comment on above: Performed By: #### 4 5866 #### LAB [address] [address] Yusuf Villaseñor M.D. [id number] Hepatic function 2000 panelo n 02-03-2025 Albumin [Mass/Vol] 2.7 g/dL Low 3.2 - 5.2 g/dL [facility] ALP [Catalytic activity/Vol] 111 U/L 40 - 150 U/L [facility] ALT [Catalytic activity/Vol] 841 U/L High 0 - 50 U/L [facility] AST [Catalytic activity/Vol] 149 U/L High 0 - 50 U/L [facility] Bilirubin [Mass/Vol] 0.6 mg/dL 0.0 - 1 .3 mg/dL [facility] Bilirubin.conjugated [Mass/Vol] 0.4 mg/dL 0.0 - 0.4 mg/dL [facility] Interpretation and review of laboratory results Abnormal [facility] Protein [Mass/Vol] 5.8 g/dL Low 6.0 - 8.0 g/dL [facility] INR Coag (PPP) [Relative pily e]on 02-03-2025 Interpretation and review of laboratory results Abnormal [facility] PT Coag (PPP) [Time] 16 s High [facility] MAGNESIUM LEVELon 02-03-2025 Magnesium [Mass/Vol] 2.0 mg/dL Normal 1.6-2.4 [facility] Comment on above: Performed By: #### 4 6109 #### LAB [address] [address] Yusuf Villaseñor M.D. [id number] MANUAL DIFFERENTIALon 2024 BASOPHILS - ABS (DIFF) 0.00 K/mcL Normal 0.00-0.30 [facility] Comment on above: Performed By: #### 4 [id number] #### LAB [address] [address] Yusuf Villaseñor M.D. [id number] BASOPHILS - REL (DIFF) 0.0 % Normal [facility] Comment on above: Performed By: #### 4 [id number] #### LAB [address] [address] Yusuf Vlilaseñor M.D. [id number] EOSINOPHILS - ABS (DIFF) 0.32 K/mcL Normal 0.00-0.50 [facility] Comment on above: Performed By: #### 4 5456 #### LAB [address] [address] Yusuf Villaseñor M.D. [id number] EOSINOPHILS - REL (DIFF) 2.0 % Normal [facility] Comment on above: Performed By: #### 4 5456 #### LAB [address] [address] Yusuf Villaseñor M.D. [id number] LYMPHOCYTES - ABS (DIFF) 2.10 K/mcL Normal 0.90-4.00 [facility] Comment on above: Performed By: #### 4 [id number] #### LAB [address] [address] Yusuf Villaseñor M.D. [id number] LYMPHOCYTES - REL (DIFF) 13.0 % Normal [facility] Comment on above: Performed By: #### 4 5468 #### LAB [address] [address] Yusuf Villaseñor M.D. [id number] METAMYELOCYTES-REL (DIFF) 3.0 % Normal [facility] Comment on above: Performed By: #### 4 5456 #### LAB [address] [address] Yusuf Villaseñor M.D. [id number] MONOCYTES - ABS (DIFF) 1.45 K/mcL High 0.30-0.90 [facility] Comment on above: Performed By: #### 4 5456 #### LAB [address] [address] Yusuf Villaseñor M.D. [id number] MONOCYTES - REL (DIFF) 9.0 % Normal [facility] Comment on above: Performed By: #### 4 5456 #### LAB [address] [address] Yusuf Villaseñor M.D. [id number] MYELOCYTES RELATIVE PERCENT 2.0 % [facility] Comment on above: Performed By: #### 4 5456 #### LAB [address] [address] Yusuf Villaseñor M.D. [id number] NEUTROPHILS - ABS (DIFF) 12.28 K/mcL High 1.70-7.00 [facility] Comment on above: Performed By: #### 4 [id number] #### LAB [address] [address] Yusuf Villaseñor M.D. [id number] NEUTROPHILS - REL (DIFF) 71.0 % Normal [facility] Comment on above: Performed By: #### 4 [id number] #### LAB [address] [address] Yusuf Villaseñor M.D. [id number] MORPHOLOGYon 02-03-2025 OVAL SCAN Few Normal [facility] Comment on above: Performed By: #### L [id number] ####[facility] LAB [address] [address] Yusuf Villaseñor M.D. [id number] PLATELET ESTIMATE Normal Normal [facility] Comment on above: Performed By: #### L [id number] ####[facility] LAB [address] [address] Yusuf Villaseñor M.D. [id number] POLY SCAN Few Normal [facility] Comment on above: Performed By: #### L [id number] ####[facility] LAB [address] [place], [place] [address] Yusuf Villaseñor M.D. [id number] RBC MORPH SCAN See Comment Normal [facility] Comment on above: Result Comment: RBC Indices confirmed with manual peripheral smear review. Performed By: #### L [id number] ####[facility] LAB [address] [place], [place] [address] Yusuf Villaseñor M.D. [id number] Magnesium Levelon 02-03-2025 Magnesium [Mass/Vol] 2 mg/dL 1.6 - 2 .4 mg/dL [facility] Magnesium [Mass/Vol]on 02-03 Interpretation and review of laboratory results Normal [facility] Manual Differential panel (B ld)on 02-03-2025 Basophils (Bld) [#/Vol] 0 10*3/uL [facility] Basophils/100 WBC (Bld) 0 % [facility] Eosinophils (Bld) [#/Vol] 0.32 10*3/uL [facility] Eosinophils/100 WBC (Bld) 2 % [facility] Lymphocytes (Bld) [#/Vol] 2.1 10*3/uL [facility] Lymphocytes/100 WBC (Bld) 13 % [facility] Metamyelocytes/100 WBC (Bld) 3 % [facility] Monocytes (Bld) [#/Vol] 1.45 10*3/uL High [facility] Monocytes/100 WBC (Bld) 9 % [facility] Myelocytes/100 WBC (Bld) 2 % [facility] Neutrophils (Bld) [#/Vol] 12.28 10*3/uL High [facility] Neutrophils/100 WBC (Bld) 71 % [facility] No Panel Informationon 02-03 Interpretation and review of laboratory results Abnormal [facility] POC GLUCOSE - Kiah 025 Glucose [Mass/Vol] 136 mg/dL High 65- [facility] Glucose [Mass/Vol] 200 mg/dL High 65- [facility] Glucose [Mass/Vol] 224 mg/dL High 65- [facility] Glucose [Mass/Vol] 73 mg/dL Normal 65-99 [facility] Glucose [Mass/Vol] 79 mg/dL Normal 65-99 [facility] PT/INRon 02-03-2025 INR Coag (PPP) [Relative time] 1.3 {INR} High 0.8 - 1.1 [facility] INR Coag (PPP) [Relative time] 1.3 {INR} High 0.8-1.1 [facility] Comment on above: Order Comment: Annie nicole the induction phase of oral anticoagulation, the INR may not reflect the anticoagulation status of the patient. Therapeutic ranges for INR's are:Most clinical situations: INR 2.0-3.0Mechanical Prosthetic Valve: INR 2.5-3.5Critical: INR >5.0 Performed By: #### 4 [id number] #### LAB [address] [address] Yusuf Villaseñor M.D. [id number] PT Coag (PPP) [Time] 16.0 s High 11.8-14.3 [facility] Comment on above: Order Comment: Annie nicole the induction phase of oral anticoagulation, the INR may not reflect the anticoagulation status of the patient. Therapeutic ranges for INR's are:Most clinical situations: INR 2.0-3.0Mechanical Prosthetic Valve: INR 2.5-3.5Critical: INR >5.0 Performed By: #### 4 6391 #### LAB [address] [address] Yusuf Villaseñor M.D. [id number] APTT HEPARIN COVERAGEon 01-09 aPTT Coag (Bld) [Time] 32 s Normal 23-34 [facility] Comment on above: Order Comment: Thera peutic range for APTT's is 68 - 104 seconds Performed By: #### 4 6848 #### LAB [address] [place], [place] [address] Yusuf Villaseñor M.D. [id number] APTT Heparin CoverageOrdered By: Luis Enrique Ricketts on 02-02-2025 aPTT Coag (Bld) [Time] 32 s [facility] Interpretation and review of laboratory results Normal [facility] BASIC METABOLIC PANELon 07-2 Anion gap [Moles/Vol] 17 mmol/L Normal 10-20 [facility] Comment on above: Order Comment: [facility] has implemented the eGFR calculation approach that does not have a coefficient for race that conforms to the NKF-ASN Task Force Recommendations. Performed By: #### 4 6124 #### LAB [address] [address] Yusuf Villaseñor M.D. [id number] Calcium [Mass/Vol] 8.5 mg/dL Normal 8.4-10.2 [facility] Comment on above: Order Comment: [facility] has implemented the eGFR calculation approach that does not have a coefficient for race that conforms to the NKF-ASN Task Force Recommendations. Performed By: #### 4 6124 #### LAB [address] [address] Yusuf Villaseñor M.D. [id number] Chloride [Moles/Vol] 96 mmol/L Low 98-108 [facility] Comment on above: Order Comment: [facility] has implemented the eGFR calculation approach that does not have a coefficient for race that conforms to the NKF-ASN Task Force Recommendations. Performed By: #### 4 6124 #### LAB [address] [address] Yusuf Villaseñor M.D. [id number] Creatinine [Mass/Vol] 1.95 mg/dL High 0.80-1.30 [facility] Comment on above: Order Comment: [facility] has implemented the eGFR calculation approach that does not have a coefficient for race that conforms to the NKF-ASN Task Force Recommendations. Performed By: #### 4 6124 #### LAB [address] [address] Yusuf Villaseñor M.D. [id number] EGFR 34 mL/min/1.73 m2 Low >=60 [facility] Comment on above: Order Comment: [facility] has implemented the eGFR calculation approach that does not have a coefficient for race that conforms to the NKF-ASN Task Force Recommendations. Result Comment: Aide mated GFR was calculated using the 2020 CKD-EPI creatinine equation. Performed By: #### 4 6192 #### LAB [address] [address] Yusuf Villaseñor M.D. [id number] Glucose [Mass/Vol] 50 mg/dL Off scale low 65-99 [facility] Comment on above: Order Comment: [facility] has implemented the eGFR calculation approach that does not have a coefficient for race that conforms to the NKF-ASN Task Force Recommendations. Performed By: #### 4 6184 #### LAB [address] [address] Yusuf Villaseñor M.D. [id number] HCO3 (Bld) [Moles/Vol] 27 mmol/L Normal 21-32 [facility] Comment on above: Order Comment: [facility] has implemented the eGFR calculation approach that does not have a coefficient for race that conforms to the NKF-ASN Task Force Recommendations. Performed By: #### 4 6151 #### LAB [address] [address] Yusuf Villaseñor M.D. [id number] Potassium [Moles/Vol] 3.7 mmol/L Normal 3.5-5.1 [facility] Comment on above: Order Comment: [facility] has implemented the eGFR calculation approach that does not have a coefficient for race that conforms to the NKF-ASN Task Force Recommendations. Performed By: #### 4 6122 #### LAB [address] [address] Yusuf Villaseñor M.D. [id number] Sodium [Moles/Vol] 136 mmol/L Normal 135-145 [facility] Comment on above: Order Comment: [facility] has implemented the eGFR calculation approach that does not have a coefficient for race that conforms to the NKF-ASN Task Force Recommendations. Performed By: #### 4 6119 #### LAB [address] [address] Yusuf Villaseñor M.D. [id number] Urea nitrogen [Mass/Vol] 61 mg/dL High 8-25 [facility] Comment on above: Order Comment: [facility] has implemented the eGFR calculation approach that does not have a coefficient for race that conforms to the NKF-ASN Task Force Recommendations. Performed By: #### 4 6124 #### LAB [address] [place], [place] [address] Yusuf Villaseñor M.D. [id number] Urea nitrogen/Creatinine [Mass ratio] 31.3 mg/mg High 10.0-20.0 [facility] Comment on above: Order Comment: [facility] has implemented the eGFR calculation approach that does not have a coefficient for race that conforms to the NKF-ASN Task Force Recommendations. Performed By: #### 4 6124 #### LAB [address] [place], [place] [address] Yusuf Villaseñor M.D. [id number] Basic metabolic 2000 panelon 02-02-2025 Anion gap [Moles/Vol] 17 mmol/L 10 - 2 0 mmol/L [facility] Calcium [Mass/Vol] 8.5 mg/dL 8.4 - 10. 2 mg/dL [facility] Chloride [Moles/Vol] 96 mmol/L Low 98 - 10 8 mmol/L [facility] Creatinine [Mass/Vol] 1.95 mg/dL High 0.80 - 1.30 mg/dL [facility] GFR/1.73 sq M.predicted CKD-EPI (S/P/Bld) [Vol rate/Area] 34 Low - PINF [facility] Glucose [Mass/Vol] 50 mg/dL Critically low 65 - 99 mg/dL [facility] HCO3 [Moles/Vol] 27 mmol/L 21 - 32 mmol/L [facility] Interpretation and review of laboratory results Abnormal [facility] Potassium [Moles/Vol] 3.7 mmol/L 3.5 - 5.1 mmol/L [facility] Sodium [Moles/Vol] 136 mmol/L 135 - 145 mmol/L [facility] Urea nitrogen [Mass/Vol] 61 mg/dL High 8 - 25 mg/dL [facility] Urea nitrogen/Creatinine [Mass ratio] 31.3 mg/mg High 10.0 - 20.0 [facility] CBC Auto Differentialon 01-09 Erythrocyte distribution width (RBC) [Entitic vol] 14.2 % 11.6 - 14.8 % [facility] Hematocrit (Bld) [Volume fraction] 29.4 % Low 41.0 - 53.0 % [facility] Hemoglobin (Bld) [Mass/Vol] 9.4 g/dL Low 13.5 - 17.5 g/dL [facility] MCH (RBC) [Entitic mass] 26.6 pg 26.0 - 34.0 pg [facility] MCHC (RBC) [Mass/Vol] 32 g/dL 31.0 - 37.0 g/dL [facility] MCV (RBC) [Entitic vol] 83.1 fL 80.0 - 100.0 fL [facility] Nucleated RBC (Bld) [#/Vol] 0.04 10*3/uL High [facility] Nucleated RBC/100 WBC (Bld) [Ratio] 0.3 % [facility] Platelet mean volume (Bld) [Entitic vol] 9.3 fL Low 9.4 - 12.4 fL [facility] Platelets (Bld) [#/Vol] 174 10*3/uL [facility] RBC (Bld) [#/Vol] 3.54 10*6/uL Low [facility] W[facility] (Bld) [#/Vol] 15.6 10*3/uL High [facility] CBC WITH AUTO DIFFERENTIALon 02-02-2025 AUTO NRBC 0.3 % Normal [facility] Comment on above: Performed By: #### L [id number] ####[facility] LAB [address] [place], [place] [address] Yusuf Villaseñor M.D. [id number] AUTO NRBC ABS COUNT 0.04 K/mcL High 0.00-0.00 [facility] Comment on above: Performed By: #### L [id number] ####[facility] LAB [address] [place], [place] [address] Yusuf Villaseñor M.D. [id number] Erythrocyte distribution width (RBC) [Ratio] 14.2 % Normal 11.6-14.8 [facility] Comment on above: Performed By: #### L [id number] #### LAB [address] [place], [place] [address] Yusuf Villaseñor M.D. [id number] Hematocrit (Bld) [Volume fraction] 29.4 % Low 41.0-53.0 [facility] Comment on above: Performed By: #### L [id number] #### LAB [address] [address] Yusuf Villaseñor M.D. [id number] Hemoglobin (Bld) [Mass/Vol] 9.4 g/dL Low 13.5-17.5 [facility] Comment on above: Performed By: #### L [id number] ####[facility] LAB [address] [address] Yusuf Villaseñor M.D. [id number] MCH (RBC) [Entitic mass] 26.6 pg Normal 26.0-34.0 [facility] Comment on above: Performed By: #### L [id number] #### LAB [address] [address] Yusuf Villaseñor M.D. [id number] MCV (RBC) [Entitic vol] 83.1 fL Normal 80.0-100.0 [facility] Comment on above: Performed By: #### L [id number] #### LAB [address] [address] Yusuf Villaseñor M.D. [id number] MEAN CORPUSCULAR HEMOGLOBIN CONC 32.0 g/dL Normal 31.0-37.0 [facility] Comment on above: Performed By: #### L [id number] #### LAB [address] [address] Yusuf Villaseñor M.D. [id number] Platelet mean volume (Bld) [Entitic vol] 9.3 fL Low 9.4-12.4 [facility] Comment on above: Performed By: #### L [id number] #### LAB [address] [address] Yusuf Villaseñor M.D. [id number] Platelets (Bld) [#/Vol] 174 10*3/uL Normal 150-400 [facility] Comment on above: Performed By: #### L [id number] #### LAB [address] [place], [place] [address] Yusuf Villaseñor M.D. [id number] RBC (Bld) [#/Vol] 3.54 10*6/uL Low 4.50-5.90 [facility] Comment on above: Performed By: #### L [id number] ####[facility] LAB [address] [place], [place] [address] Yusuf Villaseñor M.D. [id number] WBC (Bld) [#/Vol] 15.60 10*3/uL High 4.50-11.00 [facility] Comment on above: Performed By: #### L [id number] ####[facility] LAB [address] [address] Yusuf Villaseñor M.D. [id number] CBC and Diff Morphologyon Ovalocytes LM Ql (Bld) Few [facility] Platelets LM Ql (Bld) Normal Normal [place] Polychromasia LM Ql (Bld) Few [facility] RBC morphology finding Nom (Bld) See Comment [facility] Glucose (Bld) [Mass/Vol]on 0 02-02-2025 Glucose [Mass/Vol] 196 mg/dL High 65 - 99 mg/dL [place] Interpretation and review of laboratory results Abnormal [facility] Glucose [Mass/Vol] 119 mg/dL High 65 - 99 mg/dL [place] Interpretation and review of laboratory results Abnormal [facility] Glucose [Mass/Vol] 200 mg/dL High 65 - 99 mg/dL [place] Interpretation and review of laboratory results Abnormal [facility] Glucose [Mass/Vol] 216 mg/dL High 65 - 99 mg/dL [place] Interpretation and review of laboratory results Abnormal [facility] Glucose [Mass/Vol] 304 mg/dL High 65 - 99 mg/dL [place] Interpretation and review of laboratory results Abnormal [facility] Glucose [Mass/Vol] 242 mg/dL High 65 - 99 mg/dL [place] Interpretation and review of laboratory results Abnormal [facility] Glucose [Mass/Vol] 30 mg/dL Critically low 65 - 99 mg/dL [facility] Interpretation and review of laboratory results Abnormal [facility] Glucose [Mass/Vol] 34 mg/dL Critically low 65 - 99 mg/dL [facility] Interpretation and review of laboratory results Abnormal [facility] Glucose [Mass/Vol] 44 mg/dL Critically low 65 - 99 mg/dL [facility] Interpretation and review of laboratory results Abnormal [facility] Glucose [Mass/Vol] 46 mg/dL Critically low 65 - 99 mg/dL [facility] Interpretation and review of laboratory results Abnormal [facility] Glucose [Mass/Vol] 62 mg/dL Low 65 - 99 mg/dL [place] Interpretation and review of laboratory results Abnormal [facility] Glucose [Mass/Vol] 50 mg/dL Critically low 65 - 99 mg/dL [facility] Interpretation and review of laboratory results Abnormal [facility] HEMOGLOBIN AND HEMATOCRITon 02-02-2025 Hematocrit (Bld) [Volume fraction] 29.5 % Low 41.0-53.0 [facility] Comment on above: Performed By: #### 4 6909 ####[facility] LAB [address] [address] Yusuf Villaseñor M.D. [id number] Hemoglobin (Bld) [Mass/Vol] 9.4 g/dL Low 13.5-17.5 [facility] Comment on above: Performed By: #### 4 6909 ####[facility] LAB [address] [id number] Yusuf Villaseñor M.D. [id number] HEPATIC FUNCTION PANELon Albumin [Mass/Vol] 3.1 g/dL Low 3.2-5.2 [facility] Comment on above: Performed By: #### 4 5866 ####[facility] LAB [address] [place], [place] [address] Yusuf Villaseñor M.D. [id number] ALP [Catalytic activity/Vol] 135 U/L Normal 40-150 [facility] Comment on above: Performed By: #### 4 5866 ####[facility] LAB [address] [place], [place] [address] Yusuf Villaseñor M.D. [id number] ALT [Catalytic activity/Vol] 1371 U/L High 0-50 U/L [facility] Comment on above: Performed By: #### 4 5866 #### LAB [address] [address] Yusuf Villaseñor M.D. [id number] AST [Catalytic activity/Vol] 422 U/L High 0-50 U/L [facility] Comment on above: Performed By: #### 4 5866 #### LAB [address] [address] Yusuf Villaseñor M.D. [id number] Bilirubin [Mass/Vol] 0.9 mg/dL Normal 0.0-1.3 [facility] Comment on above: Performed By: #### 4 5866 #### LAB [address] [address] Yusuf Villaseñor M.D. [id number] Bilirubin.indirect [Mass/Vol] 0.6 mg/dL High 0.0-0.4 [facility] Comment on above: Performed By: #### 4 5866 #### LAB [address] [address] Yusuf Villaseñor M.D. [id number] Protein [Mass/Vol] 6.3 g/dL Normal 6.0-8.0 [facility] Comment on above: Performed By: #### 4 5866 #### LAB [address] [address] Yusuf Villaseñor M.D. [id number] Hemoglobin and Hematocrit pa karly (Bld)on 02-02-2025 Hematocrit (Bld) [Volume fraction] 29.5 % Low 41.0 - 53.0 % [facility] Hemoglobin (Bld) [Mass/Vol] 9.4 g/dL Low 13.5 - 17.5 g/dL [facility] Interpretation and review of laboratory results Abnormal [facility] Hepatic function 2000 panelo n 02-02-2025 Albumin [Mass/Vol] 3.1 g/dL Low 3.2 - 5.2 g/dL [facility] ALP [Catalytic activity/Vol] 135 U/L 40 - 150 U/L [facility] ALT [Catalytic activity/Vol] 1371 U/L High 0 - 50 U/L [facility] AST [Catalytic activity/Vol] 422 U/L High 0 - 50 U/L [facility] Bilirubin [Mass/Vol] 0.9 mg/dL 0.0 - 1 .3 mg/dL [facility] Bilirubin.conjugated [Mass/Vol] 0.6 mg/dL High 0.0 - 0.4 mg/dL [facility] Interpretation and review of laboratory results Abnormal [facility] Protein [Mass/Vol] 6.3 g/dL 6.0 - 8.0 g/dL [facility] INR Coag (PPP) [Relative pily e]on 02-02-2025 Interpretation and review of laboratory results Abnormal [facility] PT Coag (PPP) [Time] 16 s High [facility] MAGNESIUM LEVELon 02-02-2025 Magnesium [Mass/Vol] 2.2 mg/dL Normal 1.6-2.4 [facility] Comment on above: Performed By: #### 4 6109 #### LAB [address] [place] [address] Yusuf Villaseñor M.D. [id number] Magnesium [Mass/Vol] 2.3 mg/dL Normal 1.6-2.4 [facility] Comment on above: Performed By: #### 4 6109 #### LAB [address] [place] [address] Yusuf Villaseñor M.D. [id number] MANUAL DIFFERENTIALon 2024 BASOPHILS - ABS (DIFF) 0.00 K/mcL Normal 0.00-0.30 [facility] Comment on above: Performed By: #### 4 5456 #### LAB [address] [place] [address] Yusuf Villaseñor M.D. [id number] BASOPHILS - REL (DIFF) 0.0 % Normal [facility] Comment on above: Performed By: #### 4 5456 #### LAB [address] [place] [address] Yusuf Villaseñor M.D. [id number] EOSINOPHILS - ABS (DIFF) 0.31 K/mcL Normal 0.00-0.50 [facility] Comment on above: Performed By: #### 4 [id number] #### LAB [address] [place] [address] Yusuf Villaseñor M.D. [id number] EOSINOPHILS - REL (DIFF) 2.0 % [facility] Comment on above: Performed By: #### 4 5456 #### LAB [address] [place] [address] Yusuf Villaseñor M.D. [id number] LYMPHOCYTES - ABS (DIFF) 2.03 K/mcL Normal 0.90-4.00 [facility] Comment on above: Performed By: #### 4 [id number] #### LAB [address] [place] [address] Yusuf Villaseñor M.D. [id number] LYMPHOCYTES - REL (DIFF) 13.0 % Normal [facility] Comment on above: Performed By: #### 4 5456 #### LAB [address] [place] [address] Yusuf Villaseñor M.D. [id number] METAMYELOCYTES-REL (DIFF) 2.0 % [facility] Comment on above: Performed By: #### 4 5456 #### LAB [address] [place] [address] Yusuf Villaseñor M.D. [id number] MONOCYTES - ABS (DIFF) 1.25 K/mcL High 0.30-0.90 [facility] Comment on above: Performed By: #### 4 [id number] #### LAB [address] [place] [address] Yusuf Villaseñor M.D. [id number] MONOCYTES - REL (DIFF) 8.0 % Normal [facility] Comment on above: Performed By: #### 4 5456 #### LAB [address] [place] [address] Yusuf Villaseñor M.D. [id number] MYELOCYTES RELATIVE PERCENT 3.0 % [facility] Comment on above: Performed By: #### 4 5456 #### LAB [address] [address] Yusuf Villaseñor M.D. [id number] NEUTROPHILS - ABS (DIFF) 12.01 K/mcL High 1.70-7.00 [facility] Comment on above: Performed By: #### 4 8837 ####[facility] LAB [address] [place], [place] [address] Yusuf Villaseñor M.D. [id number] NEUTROPHILS - REL (DIFF) 72.0 % Normal [facility] Comment on above: Performed By: #### 4 5456 ####[facility] LAB [address] [place] [id number] Yusuf Villaseñor M.D. [id number] MORPHOLOGYon 02-02-2025 OVAL SCAN Few Normal [facility] Comment on above: Performed By: #### L [id number] ####[facility] [address] [place] [address] Yusuf Villaseñor M.D. [id number] PLATELET ESTIMATE Normal Normal Normal [facility] Comment on above: Performed By: #### L [id number] ####[facility] [address] [place] [address] Yusuf Villaseñor M.D. [id number] POLY SCAN Few Normal [facility] Comment on above: Performed By: #### L [id number] ####[facility] [address] [place] [address] Yusuf Villaseñor M.D. [id number] RBC MORPH SCAN See Comment Normal [facility] Comment on above: Result Comment: RBC Indices confirmed with manual peripheral smear review. Performed By: #### L [id number] ####[facility] LAB [address] [place] [id number] Yusuf Villaseñor M.D. [id number] Magnesium LevelOrdered By: Matilda Campos on 02-02-2025 Magnesium [Mass/Vol] 2.3 mg/dL 1.6 - 2 .4 mg/dL [facility] Magnesium Levelon 02-02-2025 Magnesium [Mass/Vol] 2.2 mg/dL 1.6 - 2 .4 mg/dL [facility] Magnesium [Mass/Vol]Ordered By: Grover Campos on 02-02-2025 Interpretation and review of laboratory results Normal [facility] Magnesium [Mass/Vol]on 02-02 Interpretation and review of laboratory results Normal [facility] Manual Differential panel (B ld)on 02-02-2025 Basophils (Bld) [#/Vol] 0 10*3/uL [facility] Basophils/100 WBC (Bld) 0 % [facility] Eosinophils (Bld) [#/Vol] 0.31 10*3/uL [facility] Eosinophils/100 WBC (Bld) 2 % [facility] Lymphocytes (Bld) [#/Vol] 2.03 10*3/uL [facility] Lymphocytes/100 WBC (Bld) 13 % [facility] Metamyelocytes/100 WBC (Bld) 2 % [facility] Monocytes (Bld) [#/Vol] 1.25 10*3/uL High [facility] Monocytes/100 WBC (Bld) 8 % [facility] Myelocytes/100 WBC (Bld) 3 % [facility] Neutrophils (Bld) [#/Vol] 12.01 10*3/uL High [facility] Neutrophils/100 WBC (Bld) 72 % [facility] No Panel Informationon 02-02 Interpretation and review of laboratory results Abnormal [facility] No Panel InformationOrdered By: Luis Enrique Ricketts on 02-02-2025 [facility] OCCULT BLOOD STOOL IMMUNOASS AY ([facility]LY [facility] ONLY)on 02-02-2025 OCCULT BLOOD STOOL IMMUNOASSAY ([facility] ONLY) Positive Abnormal Negative for Occult Blood [facility] Comment on above: Performed By: #### 4 8354 ####[facility] [address] [place] [address] Yusuf Villasñeor M.D. [id number] Occult Blood Stool Immunoass ay ([facility] Only)Ordered By: Olivia Thacker on 02-02-2025 Hemoglobin.gastrointest inal Ql (Stl) Positive Abnormal Negative for Occult Blood [facility] Interpretation and review of laboratory results Abnormal [facility] POC GLUCOSE - Kiah 025 Glucose [Mass/Vol] 196 mg/dL High 65- [facility] Glucose [Mass/Vol] 119 mg/dL High 65- [facility] Glucose [Mass/Vol] 200 mg/dL High 65- [facility] Glucose [Mass/Vol] 216 mg/dL High 65- [facility] Glucose [Mass/Vol] 304 mg/dL High 65- [facility] Glucose [Mass/Vol] 242 mg/dL High 65-99 [facility] Glucose [Mass/Vol] 30 mg/dL Off scale low [address] Comment on above: Order Comment: Criti ian result acted upon time of test. Test performed at bedside. Glucose [Mass/Vol] 34 mg/dL Off scale low [address] [place] [address] Comment on above: Order Comment: Criti ian result acted upon time of test. Test performed at bedside. Glucose [Mass/Vol] 44 mg/dL Off scale low [address] [place] [address] Comment on above: Order Comment: Criti ian result acted upon time of test. Test performed at bedside. Glucose [Mass/Vol] 46 mg/dL Off scale [address] Comment on above: Order Comment: Criti ian result acted upon time of test. Test performed at bedside. Glucose [Mass/Vol] 62 mg/dL Low [address] [place] [address] Glucose [Mass/Vol] 50 mg/dL Off scale [address] Comment on above: Order Comment: Criti ian result acted upon time of test. Test performed at bedside. POTASSIUM LEVELon 02-02-2025 Potassium [Moles/Vol] 4.4 mmol/L Normal 3.5-5.1 [facility] Comment on above: Performed By: #### 4 6351 ####[facility] [address] [place] [address] Yusuf Villaseñor M.D. [id number] PT/INRon 02-02-2025 INR Coag (PPP) [Relative time] 1.3 {INR} High 0.8 - 1.1 [facility] INR Coag (PPP) [Relative time] 1.3 {INR} High 0.8-1.1 [facility] Comment on above: Order Comment: Annie nicole the induction phase of oral anticoagulation, the INR may not reflect the anticoagulation status of the patient. Therapeutic ranges for INR's are:Most clinical situations: INR 2.0-3.0Mechanical Prosthetic Valve: INR 2.5-3.5Critical: INR >5.0 Performed By: #### 4 6390 #### LAB [address] [place] [address] Yusuf Villaseñor M.D. [id number] PT Coag (PPP) [Time] 16.0 s High 11.8-14.3 [facility] Comment on above: Order Comment: Annie nicole the induction phase of oral anticoagulation, the INR may not reflect the anticoagulation status of the patient. Therapeutic ranges for INR's are:Most clinical situations: INR 2.0-3.0Mechanical Prosthetic Valve: INR 2.5-3.5Critical: INR >5.0 Performed By: #### 4 6391 #### LAB [address] [place], [place] [address] Yusuf Villaseñor M.D. [id number] Potassium Levelon 02-02-2025 Potassium [Moles/Vol] 4.4 mmol/L 3.5 - 5.1 mmol/L [facility] Potassium [Moles/Vol]on 01-09 Interpretation and review of laboratory results Normal [facility] APTT HEPARIN COVERAGEon 01-09 aPTT Coag (Bld) [Time] 97 s High 23-34 [facility] Comment on above: Order Comment: 0400T herapeutic range for APTT's is 68 - 104 seconds Performed By: #### 4 [id number] #### LAB [address] [place] [id number] Yusuf Villaseñor M.D. [id number] APTT Heparin Coverageon 01-09 aPTT Coag (Bld) [Time] 97 s High [facility] Interpretation and review of laboratory results Abnormal [facility] BASIC METABOLIC PANELon 01-09 Anion gap [Moles/Vol] 18 mmol/L Normal 10-20 [facility] Comment on above: Order Comment: [facility] has implemented the eGFR calculation approach that does not have a coefficient for race that conforms to the NKF-ASN Task Force Recommendations. Performed By: #### 4 6124 #### LAB [address] [place], [place] [address] Yusuf Villaseñor M.D. [id number] Calcium [Mass/Vol] 8.6 mg/dL Normal 8.4-10.2 [facility] Comment on above: Order Comment: [facility] has implemented the eGFR calculation approach that does not have a coefficient for race that conforms to the NKF-ASN Task Force Recommendations. Performed By: #### 4 6124 ####[facility] LAB [address] [place], [place] [address] Yusuf Villaseñor M.D. [id number] Chloride [Moles/Vol] 94 mmol/L Low 98-108 [facility] Comment on above: Order Comment: [facility] has implemented the eGFR calculation approach that does not have a coefficient for race that conforms to the NKF-ASN Task Force Recommendations. Performed By: #### 4 6124 ####[facility] LAB [address] [place] [address] Yusuf Villaseñor M.D. [id number] Creatinine [Mass/Vol] 2.53 mg/dL High 0.80-1.30 [facility] Comment on above: Order Comment: [facility] has implemented the eGFR calculation approach that does not have a coefficient for race that conforms to the NKF-ASN Task Force Recommendations. Performed By: #### 4 6124 #### LAB [address] [place] [address] Yusuf Villaseñor M.D. [id number] EGFR 25 mL/min/1.73 m2 Low >=60 [facility] Comment on above: Order Comment: [facility] has implemented the eGFR calculation approach that does not have a coefficient for race that conforms to the NKF-ASN Task Force Recommendations. Result Comment: Aide mated GFR was calculated using the 2020 CKD-EPI creatinine equation. Performed By: #### 4 6137 ####[facility] LAB [address] [place], [place] [address] Yusuf Villaseñor M.D. [id number] Glucose [Mass/Vol] 73 mg/dL Normal 65-99 [facility] Comment on above: Order Comment: [facility] has implemented the eGFR calculation approach that does not have a coefficient for race that conforms to the NKF-ASN Task Force Recommendations. Performed By: #### 4 6162 ####[facility] LAB [address] [place] [id number] Yusuf Villaseñor M.D. [id number] HCO3 (Bld) [Moles/Vol] 25 mmol/L Normal 21-32 [facility] Comment on above: Order Comment: [facility] has implemented the eGFR calculation approach that does not have a coefficient for race that conforms to the NKF-ASN Task Force Recommendations. Performed By: #### 4 6124 #### LAB [address] [place] [address] Yusuf Villaseñor M.D. [id number] Potassium [Moles/Vol] 3.7 mmol/L Normal 3.5-5.1 [facility] Comment on above: Order Comment: [facility] has implemented the eGFR calculation approach that does not have a coefficient for race that conforms to the NKF-ASN Task Force Recommendations. Performed By: #### 4 6124 #### LAB [address] [place] [address] Yusuf Villaseñor M.D. [id number] Sodium [Moles/Vol] 133 mmol/L Low 135-145 [facility] Comment on above: Order Comment: [facility] has implemented the eGFR calculation approach that does not have a coefficient for race that conforms to the NKF-ASN Task Force Recommendations. Performed By: #### 4 6124 #### LAB [address] [place] [address] Yusuf Villaseñor M.D. [id number] Urea nitrogen [Mass/Vol] 74 mg/dL High 8-25 [facility] Comment on above: Order Comment: [facility] has implemented the eGFR calculation approach that does not have a coefficient for race that conforms to the NKF-ASN Task Force Recommendations. Performed By: #### 4 6124 #### LAB [address] [place] [address] Yusuf Villaseñor M.D. [id number] Urea nitrogen/Creatinine [Mass ratio] 29.2 mg/mg High 10.0-20.0 [facility] Comment on above: Order Comment: [facility] has implemented the eGFR calculation approach that does not have a coefficient for race that conforms to the NKF-ASN Task Force Recommendations. Performed By: #### 4 6124 ####[facility] LAB [address] [place], [place] [address] Yusuf Villaseñor M.D. [id number] Basic metabolic 2000 panelon 02-01-2025 Anion gap [Moles/Vol] 18 mmol/L 10 - 2 0 mmol/L [facility] Calcium [Mass/Vol] 8.6 mg/dL 8.4 - 10. 2 mg/dL [facility] Chloride [Moles/Vol] 94 mmol/L Low 98 - 10 8 mmol/L [facility] Creatinine [Mass/Vol] 2.53 mg/dL High 0.80 - 1.30 mg/dL [facility] GFR/1.73 sq M.predicted CKD-EPI (S/P/Bld) [Vol rate/Area] 25 Low - PINF [facility] Glucose [Mass/Vol] 73 mg/dL 65 - 99 mg/dL [place] HCO3 [Moles/Vol] 25 mmol/L 21 - 32 mmol/L [facility] Interpretation and review of laboratory results Abnormal [facility] Potassium [Moles/Vol] 3.7 mmol/L 3.5 - 5.1 mmol/L [facility] Sodium [Moles/Vol] 133 mmol/L Low 135 - 145 mmol/L [facility] Urea nitrogen [Mass/Vol] 74 mg/dL High 8 - 25 mg/dL [facility] Urea nitrogen/Creatinine [Mass ratio] 29.2 mg/mg High 10.0 - 20.0 [facility] CBC Auto Differentialon 01-09 Basophils (Bld) [#/Vol] 0.07 10*3/uL [facility] Basophils/100 WBC (Bld) 0.4 % [facility] Eosinophils (Bld) [#/Vol] 0.24 10*3/uL [facility] Eosinophils/100 WBC (Bld) 1.4 % [facility] Erythrocyte distribution width (RBC) [Entitic vol] 14.3 % 11.6 - 14.8 % [facility] Hematocrit (Bld) [Volume fraction] 30 % Low 41.0 - 53.0 % [facility] Hemoglobin (Bld) [Mass/Vol] 9.8 g/dL Low 13.5 - 17.5 g/dL [facility] Immature granulocytes (Bld) [#/Vol] 0.4 10*3/uL High [facility] Immature granulocytes/100 WBC (Bld) 2.3 % [facility] Interpretation and review of laboratory results Abnormal [facility] Lymphocytes (Bld) [#/Vol] 2.38 10*3/uL [facility] Lymphocytes/100 WBC (Bld) 13.4 % [facility] MCH (RBC) [Entitic mass] 26.5 pg 26.0 - 34.0 pg [facility] MCHC (RBC) [Mass/Vol] 32.7 g/dL 31.0 - 37.0 g/dL [facility] MCV (RBC) [Entitic vol] 81.1 fL 80.0 - 100.0 fL [facility] Monocytes (Bld) [#/Vol] 1.5 10*3/uL High [facility] Monocytes/100 WBC (Bld) 8.5 % [facility] Neutrophils (Bld) [#/Vol] 13.16 10*3/uL High [facility] Neutrophils/100 WBC (Bld) 74 % [facility] Nucleated RBC (Bld) [#/Vol] 0.02 10*3/uL High [facility] Nucleated RBC/100 WBC (Bld) [Ratio] 0.1 % [facility] Platelet mean volume (Bld) [Entitic vol] 9.9 fL 9.4 - 12.4 fL [facility] Platelets (Bld) [#/Vol] 168 10*3/uL [facility] RBC (Bld) [#/Vol] 3.7 10*6/uL Low [facility] alth WBC (Bld) [#/Vol] 17.75 10*3/uL [facility] CBC WITH AUTO DIFFERENTIALon 02-01-2025 AUTO NRBC 0.1 % Normal [facility] Comment on above: Performed By: #### L [id number] #### LAB [address] [place], [place] [address] Yusuf Villaseñor M.D. [id number] AUTO NRBC ABS COUNT 0.02 K/mcL High 0.00-0.00 [facility] Comment on above: Performed By: #### L [id number] #### LAB [address] [place] [address] Yusuf Villaseñor M.D. [id number] BASOPHILS ABSOLUTE COUNT 0.07 K/mcL Normal 0.00-0.30 [facility] Comment on above: Performed By: #### L [id number] #### LAB [address] [place] [address] Yusuf Villaseñor M.D. [id number] Basophils/100 WBC (Bld) 0.4 % Normal [facility] Comment on above: Performed By: #### L [id number] #### LAB [address] [place] [address] Yusuf Villaseñor M.D. [id number] Eosinophils (Bld) [#/Vol] 0.24 10*3/uL Normal 0.00-0.50 [facility] Comment on above: Performed By: #### L [id number] #### LAB [address] [place] [address] Yusuf Villaseñor M.D. [id number] Eosinophils/100 WBC (Bld) 1.4 % Normal [facility] Comment on above: Performed By: #### L [id number] #### LAB [address] [place] [address] Yusuf Villaseñor M.D. [id number] Erythrocyte distribution width (RBC) [Ratio] 14.3 % Normal 11.6-14.8 [facility] Comment on above: Performed By: #### L [id number] #### LAB [address] [place] [address] Yusuf Villaseñor M.D. [id number] Hematocrit (Bld) [Volume fraction] 30.0 % Low 41.0-53.0 [facility] Comment on above: Performed By: #### L [id number] #### LAB [address] [place] [address] Yusuf Villaseñor M.D. [id number] Hemoglobin (Bld) [Mass/Vol] 9.8 g/dL Low 13.5-17.5 [facility] Comment on above: Performed By: #### L [id number] #### LAB [address] [place] [address] Yusuf Villaseñor M.D. [id number] IG ABSOLUTE 0.40 K/mcL High 0.00-0.30 [facility] Comment on above: Performed By: #### L [id number] #### LAB [address] [place] [address] Yusuf Villaseñor M.D. [id number] IG PERCENT 2.30 % Normal [facility] Comment on above: Result Comment: The IG parameter is the percentage of metamyelocytes, myelocytes and promyelocytes. An immature granulocyte count (IG) of 1% or more suggests the possibility of infection, an IG count of 3% is very likely related to an infection. Performed By: #### L [id number] #### LAB [address] [place] [address] Yusuf Villaseñor M.D. [id number] Lymphocytes (Bld) [#/Vol] 2.38 10*3/uL Normal 0.90-4.00 [facility] Comment on above: Performed By: #### L [id number] #### LAB [address] [place] [address] Yusuf Villaseñor M.D. [id number] Lymphocytes/100 WBC (Bld) 13.4 % [facility] Comment on above: Performed By: #### L [id number] #### LAB [address] [place] [address] Yusuf Villaseñor M.D. [id number] MCH (RBC) [Entitic mass] 26.5 pg Normal 26.0-34.0 [facility] Comment on above: Performed By: #### L [id number] #### LAB [address] [place] [address] Yusuf Villaseñor M.D. [id number] MCV (RBC) [Entitic vol] 81.1 fL Normal 80.0-100.0 [facility] Comment on above: Performed By: #### L [id number] #### LAB [address] [place] [address] Yusuf Villaseñor M.D. [id number] MEAN CORPUSCULAR HEMOGLOBIN CONC 32.7 g/dL Normal 31.0-37.0 [facility] Comment on above: Performed By: #### L [id number] #### LAB [address] [place] [address] Yusuf Villaseñor M.D. [id number] Monocytes (Bld) [#/Vol] 1.50 10*3/uL High 0.30-0.90 [facility] Comment on above: Performed By: #### L [id number] #### LAB [address] [place] [address] Yusuf Villaseñor M.D. [id number] Monocytes/100 WBC (Bld) 8.5 % Normal [facility] Comment on above: Performed By: #### L [id number] #### LAB [address] [place] [address] Yusuf Villaseñor M.D. [id number] NEUTROPHILS ABSOLUTE COUNT 13.16 K/mcL High 1.70-7.00 [facility] Comment on above: Performed By: #### L [id number] #### LAB [address] [place] [address] Yusuf Villaseñor M.D. [id number] Neutrophils/100 WBC (Bld) 74.0 % Normal [facility] Comment on above: Performed By: #### L [id number] #### LAB [address] [place] [address] Yusuf Villaseñor M.D. [id number] Platelet mean volume (Bld) [Entitic vol] 9.9 fL Normal 9.4-12.4 [facility] Comment on above: Performed By: #### L [id number] #### LAB [address] [place] [address] Yusuf Villaseñor M.D. [id number] Platelets (Bld) [#/Vol] 168 10*3/uL Normal 150-400 [facility] Comment on above: Performed By: #### L [id number] #### LAB [address] [place] [address] Yusuf Villaseñor M.D. [id number] RBC (Bld) [#/Vol] 3.70 10*6/uL Low 4.50-5.90 [facility] Comment on above: Performed By: #### L [id number] ####[facility] LAB [address] [place], [place] [address] Yusuf Villaseñor M.D. [id number] WBC (Bld) [#/Vol] 17.75 10*3/uL High 4.50-11.00 [facility] Comment on above: Performed By: #### L [id number] ####[facility] LAB [address] [place], [place] [address] Yusuf Villaseñor M.D. [id number] Glucose (Bld) [Mass/Vol]on 0 02-01-2025 Glucose [Mass/Vol] 80 mg/dL 65 - 99 mg/dL [facility] Interpretation and review of laboratory results Normal [facility] Glucose [Mass/Vol] 104 mg/dL High 65 - 99 mg/dL [facility] Interpretation and review of laboratory results Abnormal [facility] Glucose [Mass/Vol] 88 mg/dL 65 - 99 mg/dL [facility] Interpretation and review of laboratory results Normal [facility] Glucose [Mass/Vol] 96 mg/dL 65 - 99 mg/dL [facility] Interpretation and review of laboratory results Normal [facility] Glucose [Mass/Vol] 99 mg/dL 65 - 99 mg/dL [facility] Interpretation and review of laboratory results Normal [facility] Glucose [Mass/Vol] 83 mg/dL 65 - 99 mg/dL [facility] Interpretation and review of laboratory results Normal [facility] HEPATIC FUNCTION PANELon Albumin [Mass/Vol] 3.0 g/dL Low 3.2-5.2 [facility] Comment on above: Performed By: #### 4 5866 ####[facility] LAB [address] [place] [id number] Yusuf Villaseñor M.D. [id number] ALP [Catalytic activity/Vol] 147 U/L Normal 40-150 [facility] Comment on above: Performed By: #### 4 5866 ####[facility] LAB [address] [place] [address] Yusuf Villaseñor M.D. [id number] ALT [Catalytic activity/Vol] 2070 U/L High 0-50 U/L [facility] Comment on above: Performed By: #### 4 5866 #### LAB [address] [place] [id number] Yusuf Villaseñor M.D. [id number] AST [Catalytic activity/Vol] 1257 U/L High 0-50 U/L [facility] Comment on above: Performed By: #### 4 5866 #### LAB [address] [place] [id number] Yusuf Villaseñor M.D. [id number] Bilirubin [Mass/Vol] 0.9 mg/dL Normal 0.0-1.3 [facility] Comment on above: Performed By: #### 4 5866 #### LAB [address] [place] [address] Yusuf Villaseñor M.D. [id number] Bilirubin.indirect [Mass/Vol] 0.6 mg/dL High 0.0-0.4 [facility] Comment on above: Performed By: #### 4 5866 #### LAB [address] [place] [id number] Yusuf Villaseñor M.D. [id number] Protein [Mass/Vol] 6.3 g/dL Normal 6.0-8.0 [facility] Comment on above: Performed By: #### 4 5866 #### LAB [address] [place] [id number] Yusuf Villaseñor M.D. [id number] Hepatic function 2000 panelo n 02-01-2025 Albumin [Mass/Vol] 3 g/dL Low 3.2 - 5.2 g/dL [facility] ALP [Catalytic activity/Vol] 147 U/L 40 - 150 U/L [facility] ALT [Catalytic activity/Vol] 2070 U/L High 0 - 50 U/L [facility] AST [Catalytic activity/Vol] 1257 U/L High 0 - 50 U/L [facility] Bilirubin [Mass/Vol] 0.9 mg/dL 0.0 - 1 .3 mg/dL [facility] Bilirubin.conjugated [Mass/Vol] 0.6 mg/dL High 0.0 - 0.4 mg/dL [facility] Interpretation and review of laboratory results Abnormal [facility] Protein [Mass/Vol] 6.3 g/dL 6.0 - 8.0 g/dL [facility] INR Coag (PPP) [Relative pily e]on 02-01-2025 Interpretation and review of laboratory results Abnormal [facility] PT Coag (PPP) [Time] 18.5 s High [facility] MAGNESIUM LEVELon 02-01-2025 Magnesium [Mass/Vol] 1.9 mg/dL Normal 1.6-2.4 [facility] Comment on above: Performed By: #### 4 6109 ####[facility] LAB [address] [place], [place] [address] Yusuf Villaseñor M.D. [id number] Magnesium Levelon 02-01-2025 Magnesium [Mass/Vol] 1.9 mg/dL 1.6 - 2 .4 mg/dL [facility] Magnesium [Mass/Vol]on 02-01 Interpretation and review of laboratory results Normal [facility] No Panel Informationon 02-01 [facility] OP NOTEon 02-01-2025 OP NOTE Normal [facility] POC GLUCOSE - [facility] 025 Glucose [Mass/Vol] 80 mg/dL Normal 65-99 [facility] Glucose [Mass/Vol] 104 mg/dL High 65-99 [facility] Glucose [Mass/Vol] 88 mg/dL Normal 65-99 [facility] Glucose [Mass/Vol] 96 mg/dL Normal 65-99 [facility] Glucose [Mass/Vol] 99 mg/dL Normal 65-99 [facility] Glucose [Mass/Vol] 83 mg/dL Normal 65-99 [facility] POTASSIUM LEVELon 02-01-2025 Potassium [Moles/Vol] 4.2 mmol/L Normal 3.5-5.1 [facility] Comment on above: Order Comment: 1000 Performed By: #### 4 6351 ####[facility] LAB [address] [place], [place] [address] Yusuf Villaseñor M.D. [id number] PT/INRon 02-01-2025 INR Coag (PPP) [Relative time] 1.5 {INR} High 0.8 - 1.1 [facility] INR Coag (PPP) [Relative time] 1.5 {INR} High 0.8-1.1 [facility] Comment on above: Order Comment: Annie nicole the induction phase of oral anticoagulation, the INR may not reflect the anticoagulation status of the patient. Therapeutic ranges for INR's are:Most clinical situations: INR 2.0-3.0Mechanical Prosthetic Valve: INR 2.5-3.5Critical: INR >5.0 Performed By: #### 4 6391 ####[facility] LAB [address] [address] Yusuf Villaseñor M.D. [id number] PT Coag (PPP) [Time] 18.5 s High 11.8-14.3 [facility] Comment on above: Order Comment: Annie nicole the induction phase of oral anticoagulation, the INR may not reflect the anticoagulation status of the patient. Therapeutic ranges for INR's are:Most clinical situations: INR 2.0-3.0Mechanical Prosthetic Valve: INR 2.5-3.5Critical: INR >5.0 Performed By: #### 4 6391 ####[facility] [address] [place] [address] Yusuf Villaseñor M.D. [id number] Potassium Levelon 02-01-2025 Potassium [Moles/Vol] 4.2 mmol/L 3.5 - 5.1 mmol/L [facility] Potassium [Moles/Vol]on 01-09 Interpretation and review of laboratory results Normal [facility] SURGICAL SITE AEROBIC AND AN AEROBIC CULTUREon 02-01-2025 SURGICAL SITE AEROBIC AND ANAEROBIC CULTURE Abnormal [facility] Comment on above: Performed By: #### L [id number] ####[facility] [place], [place] [address] Giorgio Williamson M.D. [id number] TROPONIN (ONCE)on 02-01-2025 BASELINE TROPONIN T NG/L 721 ng/L Off scale high <=22 [facility] Comment on above: Performed By: #### L [id number] ####[facility] LAB [address] [place] [address] Yusuf Villaseñor M.D. [id number] TROPONIN T INTERPRETATION Possible acute cardiac injury. Normal [facility] Comment on above: Performed By: #### L [id number] ####[facility] [address] [address] Yusuf Villaseñor M.D. [id number] Troponin (Once)Ordered By: Robby Wood on 02-01-2025 Interpretation and review of laboratory results Abnormal [facility] Troponin T 721 ng/L Critically high NINF - 22 ng/L [facility] Troponin T Interpretation Possible acute cardiac injury. [facility] APTT HEPARIN COVERAGEon 01-09 aPTT Coag (Bld) [Time] 98 s High 23-34 [facility] Comment on above: Order Comment: Thera peutic range for APTT's is 68 - 104 seconds Performed By: #### 4 6848 ####[facility] LAB [address] [address] Yusuf Villaseñor M.D. [id number] aPTT Coag (Bld) [Time] 107 s High 23-34 [facility] Comment on above: Order Comment: Thera peutic range for APTT's is 68 - 104 seconds Performed By: #### 4 6848 ####[facility] LAB [address] [address] Yusuf Villaseñor M.D. [id number] aPTT Coag (Bld) [Time] 66 s High 23-34 [facility] Comment on above: Order Comment: Thera peutic range for APTT's is 68 - 104 seconds Performed By: #### 4 6848 ####[facility] [address] [place] [address] Yusuf Villaseñor M.D. [id number] APTT Heparin Coverageon 01-09 aPTT Coag (Bld) [Time] 98 s High [facility] Interpretation and review of laboratory results Abnormal [facility] aPTT Coag (Bld) [Time] 107 s High [facility] Interpretation and review of laboratory results Abnormal [facility] APTT Heparin CoverageOrdered By: Daisy Méndez on 01-31-2025 aPTT Coag (Bld) [Time] 66 s High [facility] BASIC METABOLIC PANELon 01-09 Anion gap [Moles/Vol] 19 mmol/L Normal 10-20 [facility] Comment on above: Order Comment: [facility] has implemented the eGFR calculation approach that does not have a coefficient for race that conforms to the NKF-ASN Task Force Recommendations. Performed By: #### 4 6124 #### LAB [address] [address] Yusuf Villaseñor M.D. [id number] Calcium [Mass/Vol] 8.0 mg/dL Low 8.4-10.2 [facility] Comment on above: Order Comment: [facility] has implemented the eGFR calculation approach that does not have a coefficient for race that conforms to the NKF-ASN Task Force Recommendations. Performed By: #### 4 6124 #### LAB [address] [place] [address] Yusuf Villaseñor M.D. [id number] Chloride [Moles/Vol] 97 mmol/L Low 98-108 [facility] Comment on above: Order Comment: [facility] has implemented the eGFR calculation approach that does not have a coefficient for race that conforms to the NKF-ASN Task Force Recommendations. Performed By: #### 4 6124 #### LAB [address] [address] Yusuf Villaseñor M.D. [id number] Creatinine [Mass/Vol] 3.06 mg/dL High 0.80-1.30 [facility] Comment on above: Order Comment: [facility] has implemented the eGFR calculation approach that does not have a coefficient for race that conforms to the NKF-ASN Task Force Recommendations. Performed By: #### 4 6124 #### LAB [address] [address] Yusuf Villaseñor M.D. [id number] EGFR 20 mL/min/1.73 m2 Low >=60 [facility] Comment on above: Order Comment: [facility] has implemented the eGFR calculation approach that does not have a coefficient for race that conforms to the NKF-ASN Task Force Recommendations. Result Comment: Aide mated GFR was calculated using the 2020 CKD-EPI creatinine equation. Performed By: #### 4 6124 #### LAB [address] [place] [address] Yusuf Villaseñor M.D. [id number] Glucose [Mass/Vol] 103 mg/dL High 65-99 [facility] Comment on above: Order Comment: [facility] has implemented the eGFR calculation approach that does not have a coefficient for race that conforms to the NKF-ASN Task Force Recommendations. Performed By: #### 4 6160 #### LAB [address] [place] [address] Yusuf Villaseñor M.D. [id number] HCO3 (Bld) [Moles/Vol] 19 mmol/L Low 21-32 [facility] Comment on above: Order Comment: [facility] has implemented the eGFR calculation approach that does not have a coefficient for race that conforms to the NKF-ASN Task Force Recommendations. Performed By: #### 4 6124 #### LAB [address] [place] [address] Yusuf Villaseñor M.D. [id number] Potassium [Moles/Vol] 4.2 mmol/L Normal 3.5-5.1 [facility] Comment on above: Order Comment: [facility] has implemented the eGFR calculation approach that does not have a coefficient for race that conforms to the NKF-ASN Task Force Recommendations. Performed By: #### 4 6141 ####[facility] [address] [address] Yusuf Villaseñor M.D. [id number] Sodium [Moles/Vol] 131 mmol/L Low 135-145 [facility] Comment on above: Order Comment: [facility] has implemented the eGFR calculation approach that does not have a coefficient for race that conforms to the NKF-ASN Task Force Recommendations. Performed By: #### 4 6125 #### LAB [address] [place], [place] [address] Yusuf Villaseñor M.D. [id number] Urea nitrogen [Mass/Vol] 81 mg/dL High 8- [facility] Comment on above: Order Comment: [facility] has implemented the eGFR calculation approach that does not have a coefficient for race that conforms to the NKF-ASN Task Force Recommendations. Performed By: #### 4 6124 #### LAB [address] [address] Yusuf Villaseñor M.D. [id number] Urea nitrogen/Creatinine [Mass ratio] 26.5 mg/mg High 10.0-20.0 [facility] Comment on above: Order Comment: [facility] has implemented the eGFR calculation approach that does not have a coefficient for race that conforms to the NKF-ASN Task Force Recommendations. Performed By: #### 4 6124 #### LAB [address] [address] Yusuf Villaseñor M.D. [id number] Bacteria identified Cx Nom ( Bld)on 01-31-2025 Gram Stain Result Positive Abnormal [facility] Interpretation and review of laboratory results Abnormal [facility] Basic metabolic 2000 panelon 01-31-2025 Anion gap [Moles/Vol] 19 mmol/L 10 - 2 0 mmol/L [facility] Calcium [Mass/Vol] 8 mg/dL Low 8.4 - 10. 2 mg/dL [facility] Chloride [Moles/Vol] 97 mmol/L Low 98 - 10 8 mmol/L [facility] Creatinine [Mass/Vol] 3.06 mg/dL High 0.80 - 1.30 mg/dL [facility] GFR/1.73 sq M.predicted CKD-EPI (S/P/Bld) [Vol rate/Area] 20 Low - PINF [facility] Glucose [Mass/Vol] 103 mg/dL High 65 - 99 mg/dL [place] HCO3 [Moles/Vol] 19 mmol/L Low 21 - 32 mmol/L [facility] Interpretation and review of laboratory results Abnormal [facility] Potassium [Moles/Vol] 4.2 mmol/L 3.5 - 5.1 mmol/L [facility] Sodium [Moles/Vol] 131 mmol/L Low 135 - 145 mmol/L [facility] Urea nitrogen [Mass/Vol] 81 mg/dL High 8 - 25 mg/dL [facility] Urea nitrogen/Creatinine [Mass ratio] 26.5 mg/mg High 10.0 - 20.0 [facility] Blood Culture Aerobic/Anaero bicon 01-31-2025 Bacteria identified Cx Nom (Bld) Streptococcus agalactiae (Group B) Abnormal [facility] CBC Auto Differentialon 01-09 Basophils (Bld) [#/Vol] 0.05 10*3/uL [facility] Basophils/100 WBC (Bld) 0.3 % [facility] Eosinophils (Bld) [#/Vol] 0.1 10*3/uL [facility] Eosinophils/100 WBC (Bld) 0.6 % [facility] Erythrocyte distribution width (RBC) [Entitic vol] 14.6 % 11.6 - 14.8 % [facility] Hematocrit (Bld) [Volume fraction] 28.8 % Low 41.0 - 53.0 % [facility] Hemoglobin (Bld) [Mass/Vol] 9.2 g/dL Low 13.5 - 17.5 g/dL [facility] Immature granulocytes (Bld) [#/Vol] 0.24 10*3/uL [facility] Immature granulocytes/100 WBC (Bld) 1.4 % [facility] Interpretation and review of laboratory results Abnormal [facility] Lymphocytes (Bld) [#/Vol] 1.39 10*3/uL [facility] Lymphocytes/100 WBC (Bld) 7.9 % [facility] MCH (RBC) [Entitic mass] 26.6 pg 26.0 - 34.0 pg [facility] MCHC (RBC) [Mass/Vol] 31.9 g/dL 31.0 - 37.0 g/dL [facility] MCV (RBC) [Entitic vol] 83.2 fL 80.0 - 100.0 fL [facility] Monocytes (Bld) [#/Vol] 1.13 10*3/uL High [facility] Monocytes/100 WBC (Bld) 6.4 % [facility] Neutrophils (Bld) [#/Vol] 14.71 10*3/uL High [facility] Neutrophils/100 WBC (Bld) 83.4 % [facility] Nucleated RBC (Bld) [#/Vol] 0.03 10*3/uL High [facility] Nucleated RBC/100 WBC (Bld) [Ratio] 0.2 % [facility] Platelet mean volume (Bld) [Entitic vol] 9.4 fL 9.4 - 12.4 fL [facility] Platelets (Bld) [#/Vol] 146 10*3/uL Low [facility] RBC (Bld) [#/Vol] 3.46 10*6/uL Low [facility] ealt WBC (Bld) [#/Vol] 17.62 10*3/uL High [facility] CBC WITH AUTO DIFFERENTIALon 01-31-2025 AUTO NRBC 0.2 % [facility] Comment on above: Performed By: #### L [id number] #### LAB [address] [place] [address] Yusuf Villaseñor M.D. [id number] AUTO NRBC ABS COUNT 0.03 K/mcL High 0.00-0.00 [facility] Comment on above: Performed By: #### L [id number] #### LAB [address] [place] [address] Yusuf Villaseñor M.D. [id number] BASOPHILS ABSOLUTE COUNT 0.05 K/mcL Normal 0.00-0.30 [facility] Comment on above: Performed By: #### L [id number] #### LAB [address] [place] [address] Yusuf Villaseñor M.D. [id number] Basophils/100 WBC (Bld) 0.3 % [facility] Comment on above: Performed By: #### L [id number] #### LAB [address] [place] [address] Yusuf Villaseñor M.D. [id number] Eosinophils (Bld) [#/Vol] 0.10 10*3/uL Normal 0.00-0.50 [facility] Comment on above: Performed By: #### L [id number] #### LAB [address] [place] [address] Yusuf Villaseñor M.D. [id number] Eosinophils/100 WBC (Bld) 0.6 % [facility] Comment on above: Performed By: #### L [id number] #### LAB [address] [address] Yusuf Villaseñor M.D. [id number] Erythrocyte distribution width (RBC) [Ratio] 14.6 % Normal 11.6-14.8 [facility] Comment on above: Performed By: #### L [id number] #### LAB [address] [address] Yusuf Villaseñor M.D. [id number] Hematocrit (Bld) [Volume fraction] 28.8 % Low 41.0-53.0 [facility] Comment on above: Performed By: #### L [id number] #### LAB [address] [address] Yusuf Villaseñor M.D. [id number] Hemoglobin (Bld) [Mass/Vol] 9.2 g/dL Low 13.5-17.5 [facility] Comment on above: Performed By: #### L [id number] #### LAB [address] [address] Yusuf Villaseñor M.D. [id number] IG ABSOLUTE 0.24 K/mcL Normal 0.00-0.30 [facility] Comment on above: Performed By: #### L [id number] #### LAB [address] [address] Yusuf Villaseñor M.D. [id number] IG PERCENT 1.40 % Normal [facility] Comment on above: Result Comment: The IG parameter is the percentage of metamyelocytes, myelocytes and promyelocytes. An immature granulocyte count (IG) of 1% or more suggests the possibility of infection, an IG count of 3% is very likely related to an infection. Performed By: #### L [id number] #### LAB [address] [place] [address] Yusuf Villaseñor M.D. [id number] Lymphocytes (Bld) [#/Vol] 1.39 10*3/uL Normal 0.90-4.00 [facility] Comment on above: Performed By: #### L [id number] #### LAB [address] [place] [address] Yusuf Villaseñor M.D. [id number] Lymphocytes/100 WBC (Bld) 7.9 % Normal [facility] Comment on above: Performed By: #### L [id number] #### LAB [address] [address] Yusuf Villaseñor M.D. [id number] MCH (RBC) [Entitic mass] 26.6 pg Normal 26.0-34.0 [facility] Comment on above: Performed By: #### L [id number] ####[facility] [address] [address] Yusuf Villaseñor M.D. [id number] MCV (RBC) [Entitic vol] 83.2 fL Normal 80.0-100.0 [facility] Comment on above: Performed By: #### L [id number] #### LAB [address] [address] Yusuf Villaseñor M.D. [id number] MEAN CORPUSCULAR HEMOGLOBIN CONC 31.9 g/dL Normal 31.0-37.0 [facility] Comment on above: Performed By: #### L [id number] #### LAB [address] [address] Yusuf Villaseñor M.D. [id number] Monocytes (Bld) [#/Vol] 1.13 10*3/uL High 0.30-0.90 [facility] Comment on above: Performed By: #### L [id number] #### LAB [address] [address] Yusuf Villaseñor M.D. [id number] Monocytes/100 WBC (Bld) 6.4 % Normal [facility] Comment on above: Performed By: #### L [id number] #### LAB [address] [address] Yusuf Villaseñor M.D. [id number] NEUTROPHILS ABSOLUTE COUNT 14.71 K/mcL High 1.70-7.00 [facility] Comment on above: Performed By: #### L [id number] #### LAB [address] [id number] Yusuf Villaseñor M.D. [id number] Neutrophils/100 WBC (Bld) 83.4 % Normal [facility] Comment on above: Performed By: #### L [id number] #### LAB [address] [address] Yusuf Villaseñor M.D. [id number] Platelet mean volume (Bld) [Entitic vol] 9.4 fL Normal 9.4-12.4 [facility] Comment on above: Performed By: #### L [id number] ####[facility] [address] [address] Yusuf Villaseñor M.D. [id number] Platelets (Bld) [#/Vol] 146 10*3/uL Low 150-400 [facility] Comment on above: Performed By: #### L [id number] ####[facility] [address] [address] Yusuf Villaseñor M.D. [id number] RBC (Bld) [#/Vol] 3.46 10*6/uL Low 4.50-5.90 [facility] Comment on above: Performed By: #### L [id number] ####[facility] [address] [address] Yusuf Villaseñor M.D. [id number] WBC (Bld) [#/Vol] 17.62 10*3/uL High 4.50-11.00 [facility] Comment on above: Performed By: #### L [id number] ####[facility] [address] [address] Yusuf Villaseñor M.D. [id number] Glucose (Bld) [Mass/Vol]on 0 01-31-2025 Glucose [Mass/Vol] 125 mg/dL High 65 - 99 mg/dL [place] Interpretation and review of laboratory results Abnormal [facility] Glucose [Mass/Vol] 155 mg/dL High 65 - 99 mg/dL [facility] Interpretation and review of laboratory results Abnormal [facility] Glucose [Mass/Vol] 243 mg/dL High 65 - 99 mg/dL [place] Interpretation and review of laboratory results Abnormal [facility] Glucose [Mass/Vol] 128 mg/dL High 65 - 99 mg/dL [facility] Interpretation and review of laboratory results Abnormal [facility] HEPATIC FUNCTION PANELon Albumin [Mass/Vol] 2.9 g/dL Low 3.2-5.2 [facility] Comment on above: Performed By: #### 4 5866 #### LAB [address] [address] Yusuf Villaseñor M.D. [id number] ALP [Catalytic activity/Vol] 120 U/L Normal 40-150 [facility] Comment on above: Performed By: #### 4 5866 #### LAB [address] [address] Yusuf Villaseñor M.D. [id number] ALT [Catalytic activity/Vol] 1883 U/L High 0-50 U/L [facility] Comment on above: Performed By: #### 4 5866 #### LAB [address] [address] Yusuf Villaseñor M.D. [id number] AST [Catalytic activity/Vol] 1779 U/L High 0-50 U/L [facility] Comment on above: Performed By: #### 4 5866 #### LAB [address] [address] Yusuf Villaseñor M.D. [id number] Bilirubin [Mass/Vol] 0.9 mg/dL Normal 0.0-1.3 [facility] Comment on above: Performed By: #### 4 5866 #### LAB [address] [id number] Yusuf Villaseñor M.D. [id number] Bilirubin.indirect [Mass/Vol] 0.6 mg/dL High 0.0-0.4 [facility] Comment on above: Performed By: #### 4 5866 #### LAB [address] [address] Yusuf Villaseñor M.D. [id number] Protein [Mass/Vol] 5.8 g/dL Low 6.0-8.0 [facility] Comment on above: Performed By: #### 4 5866 #### LAB [address] [place], [place] [address] Yusuf Villaseñor M.D. [id number] Hepatic function 2000 panelo n 01-31-2025 Albumin [Mass/Vol] 2.9 g/dL Low 3.2 - 5.2 g/dL [facility] ALP [Catalytic activity/Vol] 120 U/L 40 - 150 U/L [facility] ALT [Catalytic activity/Vol] 1883 U/L High 0 - 50 U/L [facility] AST [Catalytic activity/Vol] 1779 U/L High 0 - 50 U/L [facility] Bilirubin [Mass/Vol] 0.9 mg/dL 0.0 - 1 .3 mg/dL [facility] Bilirubin.conjugated [Mass/Vol] 0.6 mg/dL High 0.0 - 0.4 mg/dL [facility] Interpretation and review of laboratory results Abnormal [facility] Protein [Mass/Vol] 5.8 g/dL Low 6.0 - 8.0 g/dL [facility] INR Coag (PPP) [Relative pily e]on 01-31-2025 PT Coag (PPP) [Time] 21.3 s High [facility] MAGNESIUM LEVELon 01-31-2025 Magnesium [Mass/Vol] 2.0 mg/dL Normal 1.6-2.4 [facility] Comment on above: Performed By: #### 4 6109 #### LAB [address] [place], [place] [address] Yusuf Villaseñor M.D. [id number] Magnesium Levelon 01-31-2025 Magnesium [Mass/Vol] 2 mg/dL 1.6 - 2 .4 mg/dL [facility] Magnesium [Mass/Vol]on 01-31 Interpretation and review of laboratory results Normal [facility] No Panel InformationOrdered By: Daisy Méndez on 01-31-2025 Interpretation and review of laboratory results Abnormal [facility] POC GLUCOSE - Kiah 025 Glucose [Mass/Vol] 125 mg/dL High 65-99 [facility] Glucose [Mass/Vol] 155 mg/dL High 65-99 [facility] Glucose [Mass/Vol] 243 mg/dL High 65-99 [facility] Glucose [Mass/Vol] 128 mg/dL High 65-99 [facility] PT/INRon 01-31-2025 INR Coag (PPP) [Relative time] 1.8 {INR} High 0.8 - 1.1 [facility] INR Coag (PPP) [Relative time] 1.8 {INR} High 0.8-1.1 [facility] Comment on above: Order Comment: Annie nicole the induction phase of oral anticoagulation, the INR may not reflect the anticoagulation status of the patient. Therapeutic ranges for INR's are:Most clinical situations: INR 2.0-3.0Mechanical Prosthetic Valve: INR 2.5-3.5Critical: INR >5.0 Performed By: #### 4 6391 #### LAB [address] [address] Yusuf Villaseñor M.D. [id number] PT Coag (PPP) [Time] 21.3 s High 11.8-14.3 [facility] Comment on above: Order Comment: Annie nicole the induction phase of oral anticoagulation, the INR may not reflect the anticoagulation status of the patient. Therapeutic ranges for INR's are:Most clinical situations: INR 2.0-3.0Mechanical Prosthetic Valve: INR 2.5-3.5Critical: INR >5.0 Performed By: #### 4 6391 ####[facility] [address] [place], [place] [address] Yusuf Villaseñor M.D. [id number] AMMONIAon 01-30-2025 AMMONIA 21 micromol/L Normal 12-47 [facility] Comment on above: Performed By: #### 4 5060 ####[facility] [address] [place], [place] [address] Yusuf Villaseñor M.D. [id number] APTTOrdered By: Eliel caputo on 01-30-2025 aPTT Coag (Bld) [Time] 69 s High [facility] APTTon 01-30-2025 aPTT Coag (Bld) [Time] 69 s High 23-34 [facility] Comment on above: Order Comment: Thera peutic range for APTT's is 68 - 104 seconds Performed By: #### 4 5113 #### LAB [address] [place], [place] [address] Yusuf Villaseñor M.D. [id number] APTT HEPARIN COVERAGEon 01-09 aPTT Coag (Bld) [Time] 78 s High 23-34 [facility] Comment on above: Order Comment: Thera peutic range for APTT's is 68 - 104 seconds Performed By: #### 4 6848 #### LAB [address] [place], [place] [address] Yusuf Villaseñor M.D. [id number] Ammoniaon 01-30-2025 Ammonia (P) [Mass/Vol] 21 ug/dL [facility] Ammonia (P) [Mass/Vol]on Interpretation and review of laboratory results Normal [facility] BASIC METABOLIC PANELon 01-09 Anion gap [Moles/Vol] 21 mmol/L High 10-20 [facility] Comment on above: Order Comment: [facility] has implemented the eGFR calculation approach that does not have a coefficient for race that conforms to the NKF-ASN Task Force Recommendations. Performed By: #### 4 6124 #### LAB [address] [place], [place] [address] Yusuf Villaseñor M.D. [id number] Calcium [Mass/Vol] 8.0 mg/dL Low 8.4-10.2 [facility] Comment on above: Order Comment: [facility] has implemented the eGFR calculation approach that does not have a coefficient for race that conforms to the NKF-ASN Task Force Recommendations. Performed By: #### 4 6124 #### LAB [address] [place], [place] [address] Yusuf Villaseñor M.D. [id number] Chloride [Moles/Vol] 98 mmol/L Normal 98-108 [facility] Comment on above: Order Comment: [facility] has implemented the eGFR calculation approach that does not have a coefficient for race that conforms to the NKF-ASN Task Force Recommendations. Performed By: #### 4 6124 #### LAB [address] [address] Yusuf Villaseñor M.D. [id number] Creatinine [Mass/Vol] 3.02 mg/dL High 0.80-1.30 [facility] Comment on above: Order Comment: [facility] has implemented the eGFR calculation approach that does not have a coefficient for race that conforms to the NKF-ASN Task Force Recommendations. Performed By: #### 4 6124 #### LAB [address] [address] Yusuf Villaseñor M.D. [id number] EGFR 20 mL/min/1.73 m2 Low >=60 [facility] Comment on above: Order Comment: [facility] has implemented the eGFR calculation approach that does not have a coefficient for race that conforms to the NKF-ASN Task Force Recommendations. Result Comment: Aide mated GFR was calculated using the 2020 CKD-EPI creatinine equation. Performed By: #### 4 6124 #### LAB [address] [address] Yusuf Villaseñor M.D. [id number] Glucose [Mass/Vol] 202 mg/dL High 65-99 [facility] Comment on above: Order Comment: [facility] has implemented the eGFR calculation approach that does not have a coefficient for race that conforms to the NKF-ASN Task Force Recommendations. Performed By: #### 4 6124 #### LAB [address] [address] Yusuf Villaseñor M.D. [id number] HCO3 (Bld) [Moles/Vol] 18 mmol/L Low 21-32 [facility] Comment on above: Order Comment: [facility] has implemented the eGFR calculation approach that does not have a coefficient for race that conforms to the NKF-ASN Task Force Recommendations. Performed By: #### 4 6124 #### LAB [address] [address] Yusuf Villaseñor M.D. [id number] Potassium [Moles/Vol] 5.5 mmol/L High 3.5-5.1 [facility] Comment on above: Order Comment: [facility] has implemented the eGFR calculation approach that does not have a coefficient for race that conforms to the NKF-ASN Task Force Recommendations. Performed By: #### 4 6124 #### LAB [address] [address] Yusuf Villaseñor M.D. [id number] Sodium [Moles/Vol] 131 mmol/L Low 135-145 [facility] Comment on above: Order Comment: [facility] has implemented the eGFR calculation approach that does not have a coefficient for race that conforms to the NKF-ASN Task Force Recommendations. Performed By: #### 4 6115 #### LAB [address] [address] Yusuf Villaseñor M.D. [id number] Urea nitrogen [Mass/Vol] 77 mg/dL High 8-25 [facility] Comment on above: Order Comment: [facility] has implemented the eGFR calculation approach that does not have a coefficient for race that conforms to the NKF-ASN Task Force Recommendations. Performed By: #### 4 6124 #### LAB [address] [address] Yusuf Villaseñor M.D. [id number] Urea nitrogen/Creatinine [Mass ratio] 25.5 mg/mg High 10.0-20.0 [facility] Comment on above: Order Comment: [facility] has implemented the eGFR calculation approach that does not have a coefficient for race that conforms to the NKF-ASN Task Force Recommendations. Performed By: #### 4 6116 #### LAB [address] [address] Yusuf Villaseñor M.D. [id number] Anion gap [Moles/Vol] 22 mmol/L High 10-20 [facility] Comment on above: Order Comment: [facility] has implemented the eGFR calculation approach that does not have a coefficient for race that conforms to the NKF-ASN Task Force Recommendations. Performed By: #### 4 6173 #### LAB [address] [address] Yusuf Villaseñor M.D. [id number] Calcium [Mass/Vol] 8.2 mg/dL Low 8.4-10.2 [facility] Comment on above: Order Comment: [facility] has implemented the eGFR calculation approach that does not have a coefficient for race that conforms to the NKF-ASN Task Force Recommendations. Performed By: #### 4 6124 #### LAB [address] [address] Yusuf Villaseñor M.D. [id number] Chloride [Moles/Vol] 100 mmol/L Normal 98-108 [facility] Comment on above: Order Comment: [facility] has implemented the eGFR calculation approach that does not have a coefficient for race that conforms to the NKF-ASN Task Force Recommendations. Performed By: #### 4 6124 #### LAB [address] [place] [id number] Yusuf Villaseñor M.D. [id number] Creatinine [Mass/Vol] 2.83 mg/dL High 0.80-1.30 [facility] Comment on above: Order Comment: [facility] has implemented the eGFR calculation approach that does not have a coefficient for race that conforms to the NKF-ASN Task Force Recommendations. Performed By: #### 4 6124 #### LAB [address] [address] Yusuf Villaseñor M.D. [id number] EGFR 22 mL/min/1.73 m2 Low >=60 [facility] Comment on above: Order Comment: [facility] has implemented the eGFR calculation approach that does not have a coefficient for race that conforms to the NKF-ASN Task Force Recommendations. Result Comment: Aide mated GFR was calculated using the 2020 CKD-EPI creatinine equation. Performed By: #### 4 6124 #### LAB [address] [address] Yusuf Villaseñor M.D. [id number] Glucose [Mass/Vol] 150 mg/dL High 65-99 [facility] Comment on above: Order Comment: [facility] has implemented the eGFR calculation approach that does not have a coefficient for race that conforms to the NKF-ASN Task Force Recommendations. Performed By: #### 4 6124 #### LAB [address] [place] [id number] Yusuf Villaseñor M.D. [id number] HCO3 (Bld) [Moles/Vol] 16 mmol/L Low 21-32 [facility] Comment on above: Order Comment: [facility] has implemented the eGFR calculation approach that does not have a coefficient for race that conforms to the NKF-ASN Task Force Recommendations. Performed By: #### 4 6124 #### LAB [address] [address] Yusuf Villaseñor M.D. [id number] Potassium [Moles/Vol] 5.4 mmol/L High 3.5-5.1 [facility] Comment on above: Order Comment: [facility] has implemented the eGFR calculation approach that does not have a coefficient for race that conforms to the NKF-ASN Task Force Recommendations. Performed By: #### 4 6124 #### LAB [address] [address] Yusuf Villaseñor M.D. [id number] Sodium [Moles/Vol] 133 mmol/L Low 135-145 [facility] Comment on above: Order Comment: [facility] has implemented the eGFR calculation approach that does not have a coefficient for race that conforms to the NKF-ASN Task Force Recommendations. Performed By: #### 4 6124 ####[facility] [address] [address] Yusuf Villaseñor M.D. [id number] Urea nitrogen [Mass/Vol] 64 mg/dL High 8-25 [facility] Comment on above: Order Comment: [facility] has implemented the eGFR calculation approach that does not have a coefficient for race that conforms to the NKF-ASN Task Force Recommendations. Performed By: #### 4 6124 #### LAB [address] [address] Yusuf Villaseñor M.D. [id number] Urea nitrogen/Creatinine [Mass ratio] 22.6 mg/mg High 10.0-20.0 [facility] Comment on above: Order Comment: [facility] has implemented the eGFR calculation approach that does not have a coefficient for race that conforms to the NKF-ASN Task Force Recommendations. Performed By: #### 4 6124 #### LAB [address] [place], [place] [address] Yusuf Villaseñor M.D. [id number] BETA-HYDROXYBUTYRATEon 01-30 BETA-HYDROXYBUTYRATE 0.6 mmol/L High 0.0-0.3 [facility] Comment on above: Performed By: #### 4 [id number] #### LAB [address] [address] Yusuf Villaseñor M.D. [id number] BLOOD CULTURE AEROBIC/ANAERO BICon 01-30-2025 BLOOD CULTURE AEROBIC/ANAEROBIC BLOOD CULTURE No Growth after 5 days [facility] Comment on above: Performed By: #### 4 4014 ####[facility] [address] [place] [address] Giorgio Williamson M.D. [id number] BLOOD CULTURE AEROBIC/ANAEROBIC BLOOD CULTURE No Growth after 5 days [facility] Comment on above: Performed By: #### 4 4014 ####[facility] [address] [place] [address] Giorgio Williamson M.D. [id number] Bacteria identified Aer cx N om (Unsp spec)Ordered By: Checo Zelaya on 01-30-2025 [facility] Bacteria identified Cx Nom ( Bld)Ordered By: Elli Vera on 01-30-2025 Gram Stain Result Positive Abnormal [facility] Interpretation and review of laboratory results Abnormal [facility] Basic metabolic 2000 panelon 01-30-2025 Anion gap [Moles/Vol] 21 mmol/L High 10 - 2 0 mmol/L [facility] Calcium [Mass/Vol] 8 mg/dL Low 8.4 - 10. 2 mg/dL [facility] Chloride [Moles/Vol] 98 mmol/L 98 - 10 8 mmol/L [facility] Creatinine [Mass/Vol] 3.02 mg/dL High 0.80 - 1.30 mg/dL [facility] GFR/1.73 sq M.predicted CKD-EPI (S/P/Bld) [Vol rate/Area] 20 Low - PINF [facility] Glucose [Mass/Vol] 202 mg/dL High 65 - 99 mg/dL [facility] HCO3 [Moles/Vol] 18 mmol/L Low 21 - 32 mmol/L [facility] Potassium [Moles/Vol] 5.5 mmol/L High 3.5 - 5.1 mmol/L [facility] Sodium [Moles/Vol] 131 mmol/L Low 135 - 145 mmol/L [facility] Urea nitrogen [Mass/Vol] 77 mg/dL High 8 - 25 mg/dL [facility] Urea nitrogen/Creatinine [Mass ratio] 25.5 mg/mg High 10.0 - 20.0 [facility] Beta-Hydroxybutyrateon 01-30 Beta hydroxybutyrate [Moles/Vol] 0.6 mmol/L High 0.0 - 0.3 mmol/L [facility] Blood Culture Aerobic/Anaero bicOrdered By: Elli Vera on 01-30-2025 Bacteria identified Cx Nom (Bld) Streptococcus agalactiae (Group B) Abnormal [facility] CBC WITH AUTO DIFFERENTIALon 01-30-2025 AUTO NRBC 0.2 % Normal [facility] Comment on above: Performed By: #### L [id number] ####[facility] [address] [address] Yusuf Villaseñor M.D. [id number] AUTO NRBC ABS COUNT 0.05 K/mcL High 0.00-0.00 [facility] Comment on above: Performed By: #### L [id number] ####[facility] [address] [place], [place] [address] Yusuf Villaseñor M.D. [id number] BASOPHILS ABSOLUTE COUNT 0.04 K/mcL Normal 0.00-0.30 [facility] Comment on above: Performed By: #### L [id number] ####[facility] [address] [id number] Yusuf Villaseñor M.D. [id number] Basophils/100 WBC (Bld) 0.2 % Normal [facility] Comment on above: Performed By: #### L [id number] #### LAB [address] [address] Yusuf Villaseñor M.D. [id number] Eosinophils (Bld) [#/Vol] 0.07 10*3/uL Normal 0.00-0.50 [facility] Comment on above: Performed By: #### L [id number] #### LAB [address] [address] Yusuf Villaseñor M.D. [id number] Eosinophils/100 WBC (Bld) 0.3 % Normal [facility] Comment on above: Performed By: #### L [id number] #### LAB [address] [address] Yusuf Villaseñor M.D. [id number] Erythrocyte distribution width (RBC) [Ratio] 14.5 % Normal 11.6-14.8 [facility] Comment on above: Performed By: #### L [id number] #### LAB [address] [address] Yusuf Villaseñor M.D. [id number] Hematocrit (Bld) [Volume fraction] 31.6 % Low 41.0-53.0 [facility] Comment on above: Performed By: #### L [id number] #### LAB [address] [place] [address] Yusuf Villaseñor M.D. [id number] Hemoglobin (Bld) [Mass/Vol] 10.2 g/dL Low 13.5-17.5 [facility] Comment on above: Performed By: #### L [id number] ####[facility] [address] [address] Yusuf Villaseñor M.D. [id number] IG ABSOLUTE 0.29 K/mcL Normal 0.00-0.30 [facility] Comment on above: Performed By: #### L [id number] #### LAB [address] [place] [address] Yusuf Villaseñor M.D. [id number] IG PERCENT 1.40 % Normal [facility] Comment on above: Result Comment: The IG parameter is the percentage of metamyelocytes, myelocytes and promyelocytes. An immature granulocyte count (IG) of 1% or more suggests the possibility of infection, an IG count of 3% is very likely related to an infection. Performed By: #### L [id number] #### LAB [address] [place] [address] Yusuf Villaseñor M.D. [id number] Lymphocytes (Bld) [#/Vol] 1.55 10*3/uL Normal 0.90-4.00 [facility] Comment on above: Performed By: #### L [id number] #### LAB [address] [address] Yusuf Villaseñor M.D. [id number] Lymphocytes/100 WBC (Bld) 7.6 % [facility] Comment on above: Performed By: #### L [id number] #### LAB [address] [place] [address] Yusuf Villaseñor M.D. [id number] MCH (RBC) [Entitic mass] 27.1 pg Normal 26.0-34.0 [facility] Comment on above: Performed By: #### L [id number] #### LAB [address] [place] [address] Yusuf Villaseñor M.D. [id number] MCV (RBC) [Entitic vol] 84.0 fL Normal 80.0-100.0 [facility] Comment on above: Performed By: #### L [id number] #### LAB [address] [place] [address] Yusuf Villaseñor M.D. [id number] MEAN CORPUSCULAR HEMOGLOBIN CONC 32.3 g/dL Normal 31.0-37.0 [facility] Comment on above: Performed By: #### L [id number] #### LAB [address] [place] [address] Yusuf Villaseñor M.D. [id number] Monocytes (Bld) [#/Vol] 1.29 10*3/uL High 0.30-0.90 [facility] Comment on above: Performed By: #### L [id number] #### LAB [address] [address] Yusuf Villaseñor M.D. [id number] Monocytes/100 WBC (Bld) 6.3 % Normal [facility] Comment on above: Performed By: #### L [id number] #### LAB [address] [address] Yusuf Villaseñor M.D. [id number] NEUTROPHILS ABSOLUTE COUNT 17.24 K/mcL High 1.70-7.00 [facility] Comment on above: Performed By: #### L [id number] #### LAB [address] [address] Yusuf Villaseñor M.D. [id number] Neutrophils/100 WBC (Bld) 84.2 % [facility] Comment on above: Performed By: #### L [id number] #### LAB [address] [place] [address] Yusuf Villaseñor M.D. [id number] Platelet mean volume (Bld) [Entitic vol] 10.4 fL Normal 9.4-12.4 [facility] Comment on above: Performed By: #### L [id number] #### LAB [address] [place] [address] Yusuf Villaseñor M.D. [id number] Platelets (Bld) [#/Vol] 154 10*3/uL Normal 150-400 [facility] Comment on above: Performed By: #### L [id number] #### LAB [address] [address] Yusuf Villaseñor M.D. [id number] RBC (Bld) [#/Vol] 3.76 10*6/uL Low 4.50-5.90 [facility] Comment on above: Performed By: #### L [id number] #### LAB [address] [place] [address] Yusuf Villaseñor M.D. [id number] WBC (Bld) [#/Vol] 20.48 10*3/uL High 4.50-11.00 [facility] Comment on above: Performed By: #### L [id number] ####[facility] [address] [place], [place] [address] Yusuf Villaseñor M.D. [id number] CONSULTon 01-30-2025 CONSULT Normal [facility] CONSULT Normal [facility] ECG 12 Leadon 01-30-2025 Q-T Interval 466 ms [facility] QRS Duration 178 ms [facility] QTC Calculation (Bezet) 566 ms [facility] [place] -76 degrees [facility] T [place] 5 degrees [facility] Ventricular Rate 89 BPM [facility] EKGon 01-30-2025 [facility] EKG 12-leadon 01-30-2025 Q-T Interval 316 ms [facility] QRS Duration 168 ms [facility] QTC Calculation (Bezet) 482 ms [facility] [place] -79 degrees [facility] T [place] 45 degrees [facility] Ventricular Rate 140 BPM [facility] Glucose (Bld) [Mass/Vol]on 0 01-30-2025 Glucose [Mass/Vol] 174 mg/dL High 65 - 99 mg/dL [facility] Interpretation and review of laboratory results Abnormal [facility] Glucose [Mass/Vol] 193 mg/dL High 65 - 99 mg/dL [facility] Interpretation and review of laboratory results Abnormal [facility] Glucose [Mass/Vol] 158 mg/dL High 65 - 99 mg/dL [facility] Interpretation and review of laboratory results Abnormal [facility] Glucose [Mass/Vol] 153 mg/dL High 65 - 99 mg/dL [facility] Interpretation and review of laboratory results Abnormal [facility] HEPATIC FUNCTION PANELon Albumin [Mass/Vol] 3.1 g/dL Low 3.2-5.2 [facility] Comment on above: Performed By: #### 4 5866 ####[facility] [address] [place], [place] [address] Yusuf Villaseñor M.D. [id number] ALP [Catalytic activity/Vol] 127 U/L Normal 40-150 [facility] Comment on above: Performed By: #### 4 5866 ####[facility] [address] [place], [place] [address] Yusuf Villaseñor M.D. [id number] ALT [Catalytic activity/Vol] 1419 U/L High 0-50 U/L [facility] Comment on above: Performed By: #### 4 5866 #### LAB [address] [place], [place] [address] Yusuf Villaseñor M.D. [id number] AST [Catalytic activity/Vol] 1591 U/L High 0-50 U/L [facility] Comment on above: Performed By: #### 4 5866 #### LAB [address] [place], [place] [address] Yusuf Villaseñor M.D. [id number] Bilirubin [Mass/Vol] 1.3 mg/dL Normal 0.0-1.3 [facility] Comment on above: Performed By: #### 4 5866 #### LAB [address] [id number] Yusuf Villaseñor M.D. [id number] Bilirubin.indirect [Mass/Vol] 0.8 mg/dL High 0.0-0.4 [facility] Comment on above: Performed By: #### 4 5866 #### LAB [address] [id number] Yusuf Villaseñor M.D. [id number] Protein [Mass/Vol] 6.1 g/dL Normal 6.0-8.0 [facility] Comment on above: Performed By: #### 4 5866 #### LAB [address] [id number] Yusuf Villaseñor M.D. [id number] HEPATITIS PANEL, ACUTEon HEPATITIS A IGM ANTIBODY Negative Normal Negative [facility] Comment on above: Order Comment: Test performed using Katiana AZUL immunoassay system Performed By: #### 4 5887 ####[facility] [address] [place], [place] [address] Giorgio Williamson M.D. [id number] HEPATITIS B CORE IGM ANTIBODY Negative Normal Negative [facility] Comment on above: Order Comment: Test performed using Katiana AZUL immunoassay system Performed By: #### 4 5887 ####[facility] [address] [place] [address] Giorgio Williamson M.D. [id number] HEPATITIS B SURFACE ANTIGEN Negative Normal Negative [facility] Comment on above: Order Comment: Test performed using Katiana AZUL immunoassay system Performed By: #### 4 5887 ####[facility] [address] [place] [address] Giorgio Williamson M.D. [id number] HEPATITIS C ANTIBODY Negative Normal Negative [facility] Comment on above: Order Comment: Test performed using Katiana AZUL immunoassay system Performed By: #### 4 5887 ####[facility] [address] [place] [address] Giorgio Williamson M.D. [id number] Hepatic function 2000 panelo n 01-30-2025 Albumin [Mass/Vol] 3.1 g/dL Low 3.2 - 5.2 g/dL [facility] ALP [Catalytic activity/Vol] 127 U/L 40 - 150 U/L [facility] ALT [Catalytic activity/Vol] 1419 U/L High 0 - 50 U/L [facility] AST [Catalytic activity/Vol] 1591 U/L High 0 - 50 U/L [facility] Bilirubin [Mass/Vol] 1.3 mg/dL 0.0 - 1 .3 mg/dL [facility] Bilirubin.conjugated [Mass/Vol] 0.8 mg/dL High 0.0 - 0.4 mg/dL [facility] Hepatitis Panel, Acuteon HAV IgM Ql (S) Negative Negative [facility] HBV core IgM Ql (S) Negative Negative [facility] surface Ag Ql (S) Negative Negative [place] HCV Ab Ql (S) Negative Negative [facility] Interpretation and review of laboratory results Normal [facility] INR Coag (PPP) [Relative pily e]on 01-30-2025 Interpretation and review of laboratory results Abnormal [facility] PT Coag (PPP) [Time] 23.9 s High [facility] LACTIC ACID, PLASMAon 2024 LACTIC ACID, PLASMA 1.8 mmol/L Normal 0.6-2.0 [facility] Comment on above: Performed By: #### 4 6053 #### LAB [address] [place], [place] [address] Yusuf Villaseñor M.D. [id number] Lactate [Moles/Vol]on 2024 Interpretation and review of laboratory results Normal [facility] Lactic Acid, Plasmaon 2024 Lactate [Moles/Vol] 1.8 mmol/L 0.6 - 2. 0 mmol/L [facility] MAGNESIUM LEVELon 01-30-2025 Magnesium [Mass/Vol] 2.0 mg/dL Normal 1.6-2.4 [facility] Comment on above: Performed By: #### 4 6109 #### LAB [address] [place], [place] [address] Yusuf Villaseñor M.D. [id number] No Panel Informationon 01-30 Interpretation and review of laboratory results Abnormal [facility] Obtain venous blood gases an d performon 01-30-2025 [facility] POC GLUCOSE - [facility] 025 Glucose [Mass/Vol] 174 mg/dL High 65-99 [facility] Glucose [Mass/Vol] 193 mg/dL High -[address] [place] [address] Glucose [Mass/Vol] 158 mg/dL High 65-[address] [place] [address] Glucose [Mass/Vol] 153 mg/dL High 65-[address] [place] [address] POC VENOUS BLOOD GAS PANEL-P ULM - [facility] 01-30-2025 BASE EXCESS, VENOUS -6.5 Low -2.0-2.0 [facility] FIO2 28 Normal [facility] HCO3 (Bld) [Moles/Vol] 19.8 mmol/L Low 24.0-28.0 [facility] Hematocrit (Bld) [Volume fraction] 32.0 % Low 41.0-53.0 [facility] Hemoglobin (Bld) [Mass/Vol] 10.4 g/dL Low 13.5-17.5 [facility] Oxygen saturation in Blood 59.5 % Normal 40.0-70.0 [facility] PCO2 VENOUS 41.6 mm Hg Normal 41.0-51.0 [facility] PH VENOUS 7.29 Low 7.32-7.42 [facility] PO2 VENOUS 34 mm Hg Normal 25-40 [facility] SPECIMEN SOURCE RADIANCE Not specified Normal [facility] POC Venous Blood Gas Panel-P ulmon 01-30-2025 Base excess Calc (BldV) [Moles/Vol] -6.5000 mmol/L Low -2.0 - 2.0 [facility] CO2 (BldV) [Partial pressure] 41.6 mm[Hg] [facility] Hematocrit (BldA) [Volume fraction] 32 % Low 41.0 - 53.0 % [facility] Inhaled oxygen concentration 28 % [facility] Interpretation and review of laboratory results Abnormal [facility] Oxygen (BldV) [Partial pressure] 34 mm[Hg] [facility] Oxygen saturation in Venous blood 59.5 % 40.0 - 70.0 % [facility] pH (BldV) 7.29 [pH] Low 7.32 - 7.42 [facility] Specimen source Nom (Unsp spec) Not specified [facility] PT/INRon 01-30-2025 INR Coag (PPP) [Relative time] 2.1 {INR} High 0.8 - 1.1 [facility] INR Coag (PPP) [Relative time] 2.1 {INR} High 0.8-1.1 [facility] Comment on above: Order Comment: Annie nicole the induction phase of oral anticoagulation, the INR may not reflect the anticoagulation status of the patient. Therapeutic ranges for INR's are:Most clinical situations: INR 2.0-3.0Mechanical Prosthetic Valve: INR 2.5-3.5Critical: INR >5.0 Performed By: #### 4 6391 #### LAB [address] [address] Yusuf Villaseñor M.D. [id number] PT Coag (PPP) [Time] 23.9 s High 11.8-14.3 [facility] Comment on above: Order Comment: Annie nicole the induction phase of oral anticoagulation, the INR may not reflect the anticoagulation status of the patient. Therapeutic ranges for INR's are:Most clinical situations: INR 2.0-3.0Mechanical Prosthetic Valve: INR 2.5-3.5Critical: INR >5.0 Performed By: #### 4 6391 #### LAB [address] [place], [place] [address] Yusuf Villaseñor M.D. [id number] URINALYSISon 01-30-2025 AMORPHOUS CRYSTALS Few Abnormal None Seen , Rare [facility] Comment on above: Order Comment: Micro scopic examination is performed on all urinalysis samples and only positive findings are reported. The test for blood on the chemical analytic portion of urinalysis may also be positive due to hemoglobinuria and myoglobinuria and if red blood cells are present they are quantified by microscopic examination. Performed By: #### 4 6625 #### LAB [address] [address] Yusuf Villaseñor M.D. [id number] BACTERIA, URINE Rare Abnormal None Seen [facility] Comment on above: Order Comment: Micro scopic examination is performed on all urinalysis samples and only positive findings are reported. The test for blood on the chemical analytic portion of urinalysis may also be positive due to hemoglobinuria and myoglobinuria and if red blood cells are present they are quantified by microscopic examination. Performed By: #### 4 6625 #### LAB [address] [address] Yusuf Villaseñor M.D. [id number] BILIRUBIN, URINE Negative Normal Negative [facility] Comment on above: Order Comment: Micro scopic examination is performed on all urinalysis samples and only positive findings are reported. The test for blood on the chemical analytic portion of urinalysis may also be positive due to hemoglobinuria and myoglobinuria and if red blood cells are present they are quantified by microscopic examination. Performed By: #### 4 6625 ####[facility] [address] [address] Yusuf Villaseñor M.D. [id number] BLOOD, URINE Large Abnormal Negative [facility] Comment on above: Order Comment: Micro scopic examination is performed on all urinalysis samples and only positive findings are reported. The test for blood on the chemical analytic portion of urinalysis may also be positive due to hemoglobinuria and myoglobinuria and if red blood cells are present they are quantified by microscopic examination. Performed By: #### 4 6625 ####[facility] [address] [address] Yusuf Villaseñor M.D. [id number] Clarity (U) Cloudy Abnormal Clear [facility] Comment on above: Order Comment: Micro scopic examination is performed on all urinalysis samples and only positive findings are reported. The test for blood on the chemical analytic portion of urinalysis may also be positive due to hemoglobinuria and myoglobinuria and if red blood cells are present they are quantified by microscopic examination. Performed By: #### 4 6625 #### LAB [address] [place] [address] Yusuf Villaseñor M.D. [id number] Color (U) Brown Abnormal Colorless, Yellow [facility] Comment on above: Order Comment: Micro scopic examination is performed on all urinalysis samples and only positive findings are reported. The test for blood on the chemical analytic portion of urinalysis may also be positive due to hemoglobinuria and myoglobinuria and if red blood cells are present they are quantified by microscopic examination. Performed By: #### 4 6625 #### LAB [address] [place] [address] Yusuf Villaseñor M.D. [id number] Glucose Ql (U) Negative Normal Negative [facility] Comment on above: Order Comment: Micro scopic examination is performed on all urinalysis samples and only positive findings are reported. The test for blood on the chemical analytic portion of urinalysis may also be positive due to hemoglobinuria and myoglobinuria and if red blood cells are present they are quantified by microscopic examination. Performed By: #### 4 6625 #### LAB [address] [address] Yusuf Villaseñor M.D. [id number] Ketones Ql (U) Negative Normal Negative [facility] Comment on above: Order Comment: Micro scopic examination is performed on all urinalysis samples and only positive findings are reported. The test for blood on the chemical analytic portion of urinalysis may also be positive due to hemoglobinuria and myoglobinuria and if red blood cells are present they are quantified by microscopic examination. Performed By: #### 4 6625 #### LAB [address] [address] Yusuf Villaseñor M.D. [id number] Leukocyte esterase Test strip Ql (U) Trace Abnormal Negative [facility] Comment on above: Order Comment: Micro scopic examination is performed on all urinalysis samples and only positive findings are reported. The test for blood on the chemical analytic portion of urinalysis may also be positive due to hemoglobinuria and myoglobinuria and if red blood cells are present they are quantified by microscopic examination. Performed By: #### 4 6625 #### LAB [address] [address] Yusuf Villaseñor M.D. [id number] MUCUS, URINE Rare Normal None Seen, Rare [facility] Comment on above: Order Comment: Micro scopic examination is performed on all urinalysis samples and only positive findings are reported. The test for blood on the chemical analytic portion of urinalysis may also be positive due to hemoglobinuria and myoglobinuria and if red blood cells are present they are quantified by microscopic examination. Performed By: #### 4 6625 #### LAB [address] [address] Yusuf Villaseñor M.D. [id number] NITRITE, URINE Negative Normal Negative [facility] Comment on above: Order Comment: Micro scopic examination is performed on all urinalysis samples and only positive findings are reported. The test for blood on the chemical analytic portion of urinalysis may also be positive due to hemoglobinuria and myoglobinuria and if red blood cells are present they are quantified by microscopic examination. Performed By: #### 4 6625 #### LAB [address] [address] Yusuf Villaseñor M.D. [id number] pH (U) 5.0 [pH] Normal 5.0-7.0 [facility] Comment on above: Order Comment: Micro scopic examination is performed on all urinalysis samples and only positive findings are reported. The test for blood on the chemical analytic portion of urinalysis may also be positive due to hemoglobinuria and myoglobinuria and if red blood cells are present they are quantified by microscopic examination. Performed By: #### 4 6625 #### LAB [address] [address] Yusuf Villaseñor M.D. [id number] Protein (U) [Mass/Vol] 30 mg/dL Abnormal Negative [facility] Comment on above: Order Comment: Micro scopic examination is performed on all urinalysis samples and only positive findings are reported. The test for blood on the chemical analytic portion of urinalysis may also be positive due to hemoglobinuria and myoglobinuria and if red blood cells are present they are quantified by microscopic examination. Result Comment: Fals e positive results may occur in urines with large amounts of hemoglobin, pH greater than 8.0, contrast medium, or disinfectants including ammonium compounds. Performed By: #### 4 6625 #### LAB [address] [place], [place] [address] Yusuf Villaseñor M.D. [id number] RBC, URINE > High 0-3 [facility] Comment on above: Order Comment: Micro scopic examination is performed on all urinalysis samples and only positive findings are reported. The test for blood on the chemical analytic portion of urinalysis may also be positive due to hemoglobinuria and myoglobinuria and if red blood cells are present they are quantified by microscopic examination. Performed By: #### 4 6625 #### LAB [address] [place], [place] [address] Yusuf Villaseñor M.D. [id number] Specific gravity (U) [Rel density] 1.015 Normal 1.005-1.025 [facility] Comment on above: Order Comment: Micro scopic examination is performed on all urinalysis samples and only positive findings are reported. The test for blood on the chemical analytic portion of urinalysis may also be positive due to hemoglobinuria and myoglobinuria and if red blood cells are present they are quantified by microscopic examination. Performed By: #### 4 6625 #### [address] [place], [place] [address] Yusuf Villaseñor M.D. [id number] UROBILINOGEN, URINE <2.0 Normal <2.0 [facility] Comment on above: Order Comment: Micro scopic examination is performed on all urinalysis samples and only positive findings are reported. The test for blood on the chemical analytic portion of urinalysis may also be positive due to hemoglobinuria and myoglobinuria and if red blood cells are present they are quantified by microscopic examination. Performed By: #### 4 6625 #### [address] [place], [place] [address] Yusuf Villaseñor M.D. [id number] WBC, URINE > High 0-5 [facility] Comment on above: Order Comment: Micro scopic examination is performed on all urinalysis samples and only positive findings are reported. The test for blood on the chemical analytic portion of urinalysis may also be positive due to hemoglobinuria and myoglobinuria and if red blood cells are present they are quantified by microscopic examination. Performed By: #### 4 6625 #### [address] [place], [place] [address] Yusuf Villaseñor M.D. [id number] US ABDOMEN LIMITED STUDYon 0 01-30-2025 US ABDOMEN LIMITED STUDY Normal [facility] Comment on above: Order Comment: Injur y/Trauma or Illness?:Illness/OtherHow long have you had these symptoms (acute/chronic)?:AcuteReason for exam?:elevated LFTSHistory of cancer?:unknownSurgeries, chemotherapy, or radiation?:unknownType of Exam?:InitialAdditional signs and symptoms?:none US Abdomen limitedon 025 GE RIS GE RIS [facility] Radiology Study observation (narrative) [facility] US Abdomen limitedOrdered By : Sonam Jenkins on 01-30-2025 [facility] Work Phone: Urinalysison 01-30-2025 Bacteria Auto Ql (U) Rare Abnormal None Se en /hpf [facility] Bilirubin Ql (U) Negative [facility] Ref[facility] automated (U) Cloudy Abnormal Clear [facility] Color (U) Brown Abnormal Colorless, Yellow [facility] Crystals.amorphous Computer assisted (U) [#/Area] Few Abnormal None Seen, Rare /hpf [facility] Glucose Auto test strip (U) [Mass/Vol] Negative Negative mg/dL [facility] Hemoglobin Auto test strip Ql (U) Large Abnormal Negative [facility] Interpretation and review of laboratory results Abnormal [facility] Ketones (U) [Mass/Vol] Negative Negat aleksander mg/dL [facility] Leukocyte esterase Auto test strip Ql (U) Trace Abnormal Negative [facility] Mucus Auto (Urine sed) [#/Area] Rare None Seen, Rare /lpf [facility] Nitrite Auto test strip Ql (U) Negative Negative [facility] pH (U) 5 [pH] 5.0 - 7.0 [facility] Protein (U) [Mass/Vol] 30 mg/dL Abnormal Negative [facility] RBC Auto (Urine sed) [#/Area] High [facility] Specific gravity (U) [Rel density] 1.015 1.005 - 1.025 [facility] Urobilinogen (U) [Mass/Vol] mg/dL NINF - 2.0 mg/dL [facility] WBC Auto (Urine sed) [#/Area] High [facility] Urine Aerobic CultureOrdered By: Checo Zelaya on 01-30-2025 Bacteria identified Aer cx Nom (Unsp spec) No Growth (<1,000 CFU/mL) [facility] WOUND AEROBIC AND ANAEROBIC CULTUREon 01-30-2025 WOUND AEROBIC AND ANAEROBIC CULTURE Abnormal [facility] Comment on above: Performed By: #### 4 [id number] ####[facility] [address] [place] [address] Giorgio Williamson M.D. [id number] aPTT Coag (Bld) [Time]Ordere d By: Eliel Huerta on 01-30-2025 Interpretation and review of laboratory results Abnormal [facility] APTT HEPARIN COVERAGEon 01-09 aPTT Coag (Bld) [Time] 64 s High 23-34 [facility] Comment on above: Order Comment: Thera peutic range for APTT's is 68 - 104 seconds Performed By: #### 4 6848 #### LAB [address] [place] [address] Yusuf Villaseñor M.D. [id number] aPTT Coag (Bld) [Time] 54 s High 23-34 [facility] Comment on above: Order Comment: Thera peutic range for APTT's is 68 - 104 seconds Performed By: #### 4 6808 #### LAB [address] [place] [address] Yusuf Villaseñor M.D. [id number] aPTT Coag (Bld) [Time] 44 s High 23-34 [facility] Comment on above: Order Comment: Thera peutic range for APTT's is 68 - 104 seconds Performed By: #### 4 6848 #### LAB [address] [place], [place] [address] Yusuf Villaseñor M.D. [id number] BASIC METABOLIC PANELon 07-2 -2024 Anion gap [Moles/Vol] 22 mmol/L High 10-20 [facility] Comment on above: Order Comment: [facility] has implemented the eGFR calculation approach that does not have a coefficient for race that conforms to the NKF-ASN Task Force Recommendations. Performed By: #### 4 6124 #### LAB [address] [place] [address] Yusuf Villaseñor M.D. [id number] Calcium [Mass/Vol] 8.2 mg/dL Low 8.4-10.2 [facility] Comment on above: Order Comment: [facility] has implemented the eGFR calculation approach that does not have a coefficient for race that conforms to the NKF-ASN Task Force Recommendations. Performed By: #### 4 6124 #### [address] [place] [address] Yusuf Villaseñor M.D. [id number] Chloride [Moles/Vol] 100 mmol/L Normal 98-108 [facility] Comment on above: Order Comment: [facility] has implemented the eGFR calculation approach that does not have a coefficient for race that conforms to the NKF-ASN Task Force Recommendations. Performed By: #### 4 6124 ####[facility] [address] [place] [address] Yusuf Villaseñor M.D. [id number] Creatinine [Mass/Vol] 2.68 mg/dL High 0.80-1.30 [facility] Comment on above: Order Comment: [facility] has implemented the eGFR calculation approach that does not have a coefficient for race that conforms to the NKF-ASN Task Force Recommendations. Performed By: #### 4 6145 #### LAB [address] [place] [id number] Yusuf Villaseñor M.D. [id number] EGFR 23 mL/min/1.73 m2 Low >=60 [facility] Comment on above: Order Comment: [facility] has implemented the eGFR calculation approach that does not have a coefficient for race that conforms to the NKF-ASN Task Force Recommendations. Result Comment: Aide mated GFR was calculated using the 2020 CKD-EPI creatinine equation. Performed By: #### 4 6124 #### [address] [place] [address] Yusuf Villaseñor M.D. [id number] Glucose [Mass/Vol] 133 mg/dL High 65-99 [facility] Comment on above: Order Comment: [facility] has implemented the eGFR calculation approach that does not have a coefficient for race that conforms to the NKF-ASN Task Force Recommendations. Performed By: #### 4 6124 #### [address] [place] [address] Yusuf Villaseñor M.D. [id number] HCO3 (Bld) [Moles/Vol] 15 mmol/L Low 21-32 [facility] Comment on above: Order Comment: [facility] has implemented the eGFR calculation approach that does not have a coefficient for race that conforms to the NKF-ASN Task Force Recommendations. Performed By: #### 4 6124 #### [address] [place] [address] Yusuf Villaseñor M.D. [id number] Potassium [Moles/Vol] 5.5 mmol/L High 3.5-5.1 [facility] Comment on above: Order Comment: [facility] has implemented the eGFR calculation approach that does not have a coefficient for race that conforms to the NKF-ASN Task Force Recommendations. Performed By: #### 4 6124 #### [address] [place] [address] Yusuf Villaseñor M.D. [id number] Sodium [Moles/Vol] 131 mmol/L Low 135-145 [facility] Comment on above: Order Comment: [facility] has implemented the eGFR calculation approach that does not have a coefficient for race that conforms to the NKF-ASN Task Force Recommendations. Performed By: #### 4 6124 #### [address] [place] [address] Yusuf Villaseñor M.D. [id number] Urea nitrogen [Mass/Vol] 59 mg/dL High 8-25 [facility] Comment on above: Order Comment: [facility] has implemented the eGFR calculation approach that does not have a coefficient for race that conforms to the NKF-ASN Task Force Recommendations. Performed By: #### 4 6124 #### [address] [place] [address] Yusuf Villaseñor M.D. [id number] Urea nitrogen/Creatinine [Mass ratio] 22.0 mg/mg High 10.0-20.0 [facility] Comment on above: Order Comment: [facility] has implemented the eGFR calculation approach that does not have a coefficient for race that conforms to the NKF-ASN Task Force Recommendations. Performed By: #### 4 6124 #### [address] [place] [address] Yusuf Villaseñor M.D. [id number] Anion gap [Moles/Vol] 21 mmol/L High 10-20 [facility] Comment on above: Order Comment: [facility] has implemented the eGFR calculation approach that does not have a coefficient for race that conforms to the NKF-ASN Task Force Recommendations. Performed By: #### 4 6124 #### [address] [place] [address] Yusuf Villaseñor M.D. [id number] Calcium [Mass/Vol] 8.2 mg/dL Low 8.4-10.2 [facility] Comment on above: Order Comment: [facility] has implemented the eGFR calculation approach that does not have a coefficient for race that conforms to the NKF-ASN Task Force Recommendations. Performed By: #### 4 6124 #### [address] [place] [address] Yusuf Villaseñor M.D. [id number] Chloride [Moles/Vol] 101 mmol/L Normal 98-108 [facility] Comment on above: Order Comment: [facility] has implemented the eGFR calculation approach that does not have a coefficient for race that conforms to the NKF-ASN Task Force Recommendations. Performed By: #### 4 6124 #### [address] [place] [address] Yusuf Villaseoñr M.D. [id number] Creatinine [Mass/Vol] 2.52 mg/dL High 0.80-1.30 [facility] Comment on above: Order Comment: [facility] has implemented the eGFR calculation approach that does not have a coefficient for race that conforms to the NKF-ASN Task Force Recommendations. Performed By: #### 4 6124 ####[facility] [address] [place] [address] Yusuf Villaseñor M.D. [id number] EGFR 25 mL/min/1.73 m2 Low >=60 [facility] Comment on above: Order Comment: [facility] has implemented the eGFR calculation approach that does not have a coefficient for race that conforms to the NKF-ASN Task Force Recommendations. Result Comment: Aide mated GFR was calculated using the 2020 CKD-EPI creatinine equation. Performed By: #### 4 6124 ####[facility] [address] [place] [address] Yusuf Villaseñor M.D. [id number] Glucose [Mass/Vol] 134 mg/dL High 65-99 [facility] Comment on above: Order Comment: [facility] has implemented the eGFR calculation approach that does not have a coefficient for race that conforms to the NKF-ASN Task Force Recommendations. Performed By: #### 4 6124 #### [address] [place] [address] Yusuf Villaseñor M.D. [id number] HCO3 (Bld) [Moles/Vol] 15 mmol/L Low 21-32 [facility] Comment on above: Order Comment: [facility] has implemented the eGFR calculation approach that does not have a coefficient for race that conforms to the NKF-ASN Task Force Recommendations. Performed By: #### 4 6124 #### [address] [place] [address] Yusuf Villaseñor M.D. [id number] Potassium [Moles/Vol] 5.3 mmol/L High 3.5-5.1 [facility] Comment on above: Order Comment: [facility] has implemented the eGFR calculation approach that does not have a coefficient for race that conforms to the NKF-ASN Task Force Recommendations. Performed By: #### 4 6124 #### [address] [place] [address] Yusuf Villaseñor M.D. [id number] Sodium [Moles/Vol] 132 mmol/L Low 135-145 [facility] Comment on above: Order Comment: [facility] has implemented the eGFR calculation approach that does not have a coefficient for race that conforms to the NKF-ASN Task Force Recommendations. Performed By: #### 4 6124 #### [address] [place] [address] Yusuf Villaseñor M.D. [id number] Urea nitrogen [Mass/Vol] 55 mg/dL High 8-25 [facility] Comment on above: Order Comment: [facility] has implemented the eGFR calculation approach that does not have a coefficient for race that conforms to the NKF-ASN Task Force Recommendations. Performed By: #### 4 6124 #### [address] [place] [address] Yusuf Villaseñor M.D. [id number] Urea nitrogen/Creatinine [Mass ratio] 21.8 mg/mg High 10.0-20.0 [facility] Comment on above: Order Comment: [facility] has implemented the eGFR calculation approach that does not have a coefficient for race that conforms to the NKF-ASN Task Force Recommendations. Performed By: #### 4 6124 #### [address] [place] [address] Yusuf Villaseñor M.D. [id number] Anion gap [Moles/Vol] 18 mmol/L Normal 10-20 [facility] Comment on above: Order Comment: [facility] has implemented the eGFR calculation approach that does not have a coefficient for race that conforms to the NKF-ASN Task Force Recommendations. Performed By: #### 4 6124 #### [address] [place], [place] [address] Yusuf Villaseñor M.D. [id number] Calcium [Mass/Vol] 8.3 mg/dL Low 8.4-10.2 [facility] Comment on above: Order Comment: [facility] has implemented the eGFR calculation approach that does not have a coefficient for race that conforms to the NKF-ASN Task Force Recommendations. Performed By: #### 4 6124 #### [address] [place], [place] [address] Yusuf Villaseñor M.D. [id number] Chloride [Moles/Vol] 103 mmol/L Normal 98-108 [facility] Comment on above: Order Comment: [facility] has implemented the eGFR calculation approach that does not have a coefficient for race that conforms to the NKF-ASN Task Force Recommendations. Performed By: #### 4 6124 #### [address] [place], [place] [address] Yusuf Villaseñor M.D. [id number] Creatinine [Mass/Vol] 2.26 mg/dL High 0.80-1.30 [facility] Comment on above: Order Comment: [facility] has implemented the eGFR calculation approach that does not have a coefficient for race that conforms to the NKF-ASN Task Force Recommendations. Performed By: #### 4 6124 #### [address] [place], [place] [address] Yusuf Villaseñor M.D. [id number] EGFR 29 mL/min/1.73 m2 Low >=60 [facility] Comment on above: Order Comment: [facility] has implemented the eGFR calculation approach that does not have a coefficient for race that conforms to the NKF-ASN Task Force Recommendations. Result Comment: Aide mated GFR was calculated using the 2020 CKD-EPI creatinine equation. Performed By: #### 4 6124 #### [address] [place] [address] Yusuf Villaseñor M.D. [id number] Glucose [Mass/Vol] 178 mg/dL High 65-99 [facility] Comment on above: Order Comment: [facility] has implemented the eGFR calculation approach that does not have a coefficient for race that conforms to the NKF-ASN Task Force Recommendations. Performed By: #### 4 6124 #### [address] [place] [address] Yusuf Villaseñor M.D. [id number] HCO3 (Bld) [Moles/Vol] 17 mmol/L Low 21-32 [facility] Comment on above: Order Comment: [facility] has implemented the eGFR calculation approach that does not have a coefficient for race that conforms to the NKF-ASN Task Force Recommendations. Performed By: #### 4 6124 #### [address] [place] [address] Yusuf Villaseñor M.D. [id number] Potassium [Moles/Vol] 4.7 mmol/L Normal 3.5-5.1 [facility] Comment on above: Order Comment: [facility] has implemented the eGFR calculation approach that does not have a coefficient for race that conforms to the NKF-ASN Task Force Recommendations. Performed By: #### 4 6124 #### [address] [place] [address] Yusuf Villaseñor M.D. [id number] Sodium [Moles/Vol] 133 mmol/L Low 135-145 [facility] Comment on above: Order Comment: [facility] has implemented the eGFR calculation approach that does not have a coefficient for race that conforms to the NKF-ASN Task Force Recommendations. Performed By: #### 4 6124 ####[facility] [address] [place] [address] Yusuf Villaseñor M.D. [id number] Urea nitrogen [Mass/Vol] 45 mg/dL High 8-25 [facility] Comment on above: Order Comment: [facility] has implemented the eGFR calculation approach that does not have a coefficient for race that conforms to the NKF-ASN Task Force Recommendations. Performed By: #### 4 6124 #### [address] [place] [address] Yusuf Villaseñor M.D. [id number] Urea nitrogen/Creatinine [Mass ratio] 19.9 mg/mg Normal 10.0-20.0 [facility] Comment on above: Order Comment: [facility] has implemented the eGFR calculation approach that does not have a coefficient for race that conforms to the NKF-ASN Task Force Recommendations. Performed By: #### 4 6124 #### [address] [place] [address] Yusuf Villaseñor M.D. [id number] Anion gap [Moles/Vol] 19 mmol/L Normal 10-20 [facility] Comment on above: Order Comment: [facility] has implemented the eGFR calculation approach that does not have a coefficient for race that conforms to the NKF-ASN Task Force Recommendations. Performed By: #### 4 6124 #### [address] [place] [address] Yusuf Villaseñor M.D. [id number] Calcium [Mass/Vol] 8.4 mg/dL Normal 8.4-10.2 [facility] Comment on above: Order Comment: [facility] has implemented the eGFR calculation approach that does not have a coefficient for race that conforms to the NKF-ASN Task Force Recommendations. Performed By: #### 4 6193 ####[facility] [address] [place] [address] Yusuf Villaseñor M.D. [id number] Chloride [Moles/Vol] 100 mmol/L Normal 98-108 [facility] Comment on above: Order Comment: [facility] has implemented the eGFR calculation approach that does not have a coefficient for race that conforms to the NKF-ASN Task Force Recommendations. Performed By: #### 4 6117 #### [address] [place] [address] Yusuf Villaseñor M.D. [id number] Creatinine [Mass/Vol] 2.11 mg/dL High 0.80-1.30 [facility] Comment on above: Order Comment: [facility] has implemented the eGFR calculation approach that does not have a coefficient for race that conforms to the NKF-ASN Task Force Recommendations. Performed By: #### 4 6124 #### [address] [place] [address] Yusuf Villaseñor M.D. [id number] EGFR 31 mL/min/1.73 m2 Low >=60 [facility] Comment on above: Order Comment: [facility] has implemented the eGFR calculation approach that does not have a coefficient for race that conforms to the NKF-ASN Task Force Recommendations. Result Comment: Aide mated GFR was calculated using the 2020 CKD-EPI creatinine equation. Performed By: #### 4 6124 #### [address] [place] [address] Yusuf Villaseñor M.D. [id number] Glucose [Mass/Vol] 282 mg/dL High 65-99 [facility] Comment on above: Order Comment: [facility] has implemented the eGFR calculation approach that does not have a coefficient for race that conforms to the NKF-ASN Task Force Recommendations. Performed By: #### 4 6124 #### [address] [place] [address] Yusuf Villaseñor M.D. [id number] HCO3 (Bld) [Moles/Vol] 18 mmol/L Low 21-32 [facility] Comment on above: Order Comment: [facility] has implemented the eGFR calculation approach that does not have a coefficient for race that conforms to the NKF-ASN Task Force Recommendations. Performed By: #### 4 6124 ####[facility] [address] [place] [address] Yusuf Villaseñor M.D. [id number] Potassium [Moles/Vol] 4.4 mmol/L Normal 3.5-5.1 [facility] Comment on above: Order Comment: [facility] has implemented the eGFR calculation approach that does not have a coefficient for race that conforms to the NKF-ASN Task Force Recommendations. Performed By: #### 4 6124 #### [address] [place] [address] Yusuf Villaseñor M.D. [id number] Sodium [Moles/Vol] 133 mmol/L Low 135-145 [facility] Comment on above: Order Comment: [facility] has implemented the eGFR calculation approach that does not have a coefficient for race that conforms to the NKF-ASN Task Force Recommendations. Performed By: #### 4 6124 #### [address] [place] [address] Yusuf Villaseñro M.D. [id number] Urea nitrogen [Mass/Vol] 43 mg/dL High 8-25 [facility] Comment on above: Order Comment: [facility] has implemented the eGFR calculation approach that does not have a coefficient for race that conforms to the NKF-ASN Task Force Recommendations. Performed By: #### 4 6124 #### [address] [place] [address] Yusuf Villaseñor M.D. [id number] Urea nitrogen/Creatinine [Mass ratio] 20.4 mg/mg High 10.0-20.0 [facility] Comment on above: Order Comment: [facility] has implemented the eGFR calculation approach that does not have a coefficient for race that conforms to the NKF-ASN Task Force Recommendations. Performed By: #### 4 6124 ####[facility] [address] [place] [address] Yusuf Villaseñor M.D. [id number] BETA-HYDROXYBUTYRATEon 01-29 BETA-HYDROXYBUTYRATE 0.9 mmol/L High 0.0-0.3 [facility] Comment on above: Performed By: #### 4 5139 #### LAB [address] [place] [address] Yusuf Villaseñor M.D. [id number] BETA-HYDROXYBUTYRATE 0.8 mmol/L High 0.0-0.3 [facility] Comment on above: Performed By: #### 4 5139 #### [address] [place] [address] Yusuf Villaseñor M.D. [id number] BETA-HYDROXYBUTYRATE < Normal 0.0-0.3 [facility] Comment on above: Performed By: #### 4 5139 ####[facility] [address] [place] [address] Yusuf Villaseñor M.D. [id number] BETA-HYDROXYBUTYRATE 0.1 mmol/L Normal 0.0-0.3 [facility] Comment on above: Performed By: #### 4 5139 #### [address] [place] [address] Yusuf Villaseñor M.D. [id number] CONSULTon 01-29-2025 CONSULT [facility] CONSULT Normal [facility] CONSULT [facility] CPKon 01-29-2025 CPK 828 U/L High 60-225 [facility] Comment on above: Performed By: #### 4 8261 #### [address] [place] [address] Yusuf Villaseñor M.D. [id number] CT UPPER EXTREMITY LEFT SOFT TISSUE WITHOUT CONTRASTon 01-29-2025 CT UPPER EXTREMITY LEFT SOFT TISSUE WITHOUT CONTRAST [facility] Comment on above: Order Comment: Injur y/Trauma or Illness?:Illness/OtherHow long have you had these symptoms (acute/chronic)?:AcuteReason for exam?:pain, swelling left forearm and hand. possible cellulitis.Type of Exam?:Subsequent/Follow-upAdditional signs and symptoms?:. ECHOCARDIOGRAM COMPLETEon ECHOCARDIOGRAM COMPLETE Normal [facility] MAGNESIUM LEVELon 01-29-2025 Magnesium [Mass/Vol] 2.0 mg/dL Normal 1.6-2.4 [facility] Comment on above: Performed By: #### 4 6109 ####[facility] [address] [address] Yusuf Villaseñor M.D. [id number] Magnesium [Mass/Vol] 2.1 mg/dL Normal 1.6-2.4 [facility] Comment on above: Performed By: #### 4 6109 #### LAB [address] [place], [place] [address] Yusuf Villaseñor M.D. [id number] MRSA DNA AMPLIFIED PROBEon 0 01-29-2025 MRSA DNA AMPLIFIED PROBE Negative Normal Not Detected, MRSA NEGATIVE [facility] Comment on above: Performed By: #### 4 [id number] #### LAB [address] [address] Yusuf Villaseñor M.D. [id number] NT PRO BNPon 01-29-2025 Natriuretic peptide B (Bld) [Mass/Vol] 38399 pg/mL High 0-300 [facility] Comment on above: Order Comment: Pride Study Cut-offsRule In:< /= 50 Years >450 pg/mL51 Years - 75 Years >900 pg/mL76 Years - 99 Years >1800 pg/mLRule Out:All patients <300 pg/mL Performed By: #### 4 7395 #### LAB [address] [address] Yusuf Villaseñor M.D. [id number] PHOSPHORUSon 01-29-2025 Phosphate [Mass/Vol] 3.9 mg/dL High 2.3-3.7 [facility] Comment on above: Performed By: #### 4 6299 #### LAB [address] [address] Yusuf Villaseñor M.D. [id number] POC GLUCOSE - [facility] 025 Glucose [Mass/Vol] 119 mg/dL High 65-99 [facility] Glucose [Mass/Vol] 122 mg/dL High 65-99 [facility] Glucose [Mass/Vol] 128 mg/dL High 65-99 [facility] Glucose [Mass/Vol] 119 mg/dL High 65-99 [facility] Glucose [Mass/Vol] 105 mg/dL High 65-99 [facility] Glucose [Mass/Vol] 93 mg/dL Normal 65-99 [facility] Glucose [Mass/Vol] 94 mg/dL Normal 65-99 [facility] Glucose [Mass/Vol] 118 mg/dL High 65-99 [facility] Glucose [Mass/Vol] 137 mg/dL High 65-99 [facility] Glucose [Mass/Vol] 183 mg/dL High 65-99 [facility] Glucose [Mass/Vol] 186 mg/dL High 65-99 [facility] Glucose [Mass/Vol] 209 mg/dL High 65-99 [facility] Glucose [Mass/Vol] 290 mg/dL High 65-99 [facility] Glucose [Mass/Vol] 291 mg/dL High 65-99 [facility] Glucose [Mass/Vol] 348 mg/dL High 65-99 [facility] Glucose [Mass/Vol] 394 mg/dL High 65-99 [facility] Glucose [Mass/Vol] 409 mg/dL Off scale high 65-99 [facility] Comment on above: Order Comment: Criti ian result acted upon time of test. Test performed at bedside. Glucose [Mass/Vol] 456 mg/dL Off scale high 65-99 [facility] Comment on above: Order Comment: Criti ian result acted upon time of test. Test performed at bedside. POC VENOUS BLOOD GAS PANEL-P AMANDEEP Dupont 01-29-2025 BASE EXCESS, VENOUS -7.4 Low -2.0-2.0 [facility] CALCIUM IONIZED 4.2 mg/dL Low 4.5-5.3 [facility] CARBOXYHEMOGLOBIN 2.5 % of total Hb High <=1.5 [facility] Comment on above: Result Comment: Refe kenji Ranges:Suburban Non-smokers: <1.5%Smokers: 1.5-5.0%Heavy Smokers: 5.0-9.0% Chloride [Moles/Vol] 105 mmol/L Normal 98-108 [facility] FIO2 32 Normal [facility] Glucose [Mass/Vol] 102 mg/dL High 65-99 [facility] HCO3 (Bld) [Moles/Vol] 18.7 mmol/L Low 24.0-28.0 [facility] Hematocrit (Bld) [Volume fraction] 33.5 % Low 41.0-53.0 [facility] Hemoglobin (Bld) [Mass/Vol] 10.9 g/dL Low 13.5-17.5 [facility] LACTIC ACID, WHOLE BLOOD 2.5 mmol/L High 0.6-2.0 [facility] METHEMOGLOBIN 0.3 % Normal 0.0-2.0 [facility] O2HB 90.1 % Normal No established reference range [facility] Oxygen saturation in Blood 92.7 % High 40.0-70.0 [facility] PCO2 VENOUS 39.0 mm Hg Low 41.0-51.0 [facility] PH VENOUS 7.29 Low 7.32-7.42 [facility] PO2 VENOUS 69 mm Hg High 25-40 [facility] Potassium [Moles/Vol] 4.7 mmol/L Normal 3.5-5.1 [facility] Sodium [Moles/Vol] 135 mmol/L Normal 135-145 [facility] SPECIMEN SOURCE RADIANCE Not specified Normal [facility] PT/INRon 01-29-2025 INR Coag (PPP) [Relative time] 2.5 {INR} High 0.8-1.1 [facility] Comment on above: Order Comment: Annie the induction phase of oral anticoagulation, the INR may not reflect the anticoagulation status of the patient. Therapeutic ranges for INR's are:Most clinical situations: INR 2.0-3.0Mechanical Prosthetic Valve: INR 2.5-3.5Critical: INR >5.0 Performed By: #### 4 6391 ####[facility] [address] [address] Yusuf Villaseñor M.D. [id number] PT Coag (PPP) [Time] 27.5 s High 11.8-14.3 [facility] Comment on above: Order Comment: Annie nicole the induction phase of oral anticoagulation, the INR may not reflect the anticoagulation status of the patient. Therapeutic ranges for INR's are:Most clinical situations: INR 2.0-3.0Mechanical Prosthetic Valve: INR 2.5-3.5Critical: INR >5.0 Performed By: #### 4 6391 #### LAB [address] [address] Yusuf Villaseñor M.D. [id number] REFLEX LACTIC ACID, PLASMAon 01-29-2025 LACTIC ACID, PLASMA 1.8 mmol/L Normal 0.6-2.0 [facility] Comment on above: Performed By: #### L [id number] ####[facility] [address] [address] Yusuf Villaseñor M.D. [id number] LACTIC ACID, PLASMA 2.9 mmol/L High 0.6-2.0 [facility] Comment on above: Performed By: #### L [id number] ####[facility] [address] [id number] Yusuf Villaseñor M.D. [id number] LACTIC ACID, PLASMA 2.7 mmol/L High 0.6-2.0 [facility] Comment on above: Performed By: #### L [id number] ####[facility] [address] [address] Yusuf Villaseñor M.D. [id number] LACTIC ACID, PLASMA 3.3 mmol/L High 0.6-2.0 [facility] Comment on above: Performed By: #### L [id number] #### LAB [address] [address] Yusuf Villaseñor M.D. [id number] TROPONIN X 2 (NOW AND REPEAT IN 2 HOURS)on 01-29-2025 TROPONIN T DELTA % NG/L 2 % Normal <20% of Baseline Troponin [facility] Comment on above: Performed By: #### 4 6608 ####[facility] [address] [address] Yusuf Villaseñor M.D. [id number] TROPONIN T DELTA CHANGE INTERPRETATION Probable non-acute cardiac injury or late presentation of acute injury. Normal [facility] Comment on above: Performed By: #### 4 6608 ####[facility] [address] [address] Yusuf Villaseñor M.D. [id number] TROPONIN T NG/L 2278 ng/L Off scale high <=22 [facility] Comment on above: Performed By: #### 4 6608 #### LAB [address] [address] Yusuf Villaseñor M.D. [id number] BASELINE TROPONIN T NG/L 2216 ng/L Off scale high <=22 [facility] Comment on above: Performed By: #### 4 6608 #### LAB [address] [address] Yusuf Villaseñor M.D. [id number] TROPONIN T INTERPRETATION Possible acute cardiac injury. [facility] Comment on above: Performed By: #### 4 6608 #### LAB [address] [address] Yusuf Villaseñor M.D. [id number] TROPONIN T DELTA % NG/L 576 % Off scale high <2 0% of Baseline Troponin [facility] Comment on above: Performed By: #### 4 6608 #### LAB [address] [address] Yusuf Villaseñor M.D. [id number] TROPONIN T DELTA CHANGE INTERPRETATION Probable acute injury or myocardial infarction. [facility] Comment on above: Performed By: #### 4 6608 #### LAB [address] [address] Yusuf Villaseñor M.D. [id number] TROPONIN T NG/L 1670 ng/L Off scale high <=22 [facility] Comment on above: Performed By: #### 4 6608 #### LAB [address] [address] Yusuf Villaseñor M.D. [id number] URINE AEROBIC CULTUREon 01-09 URINE AEROBIC CULTURE URINE CULTURE No Growth (<1,000 CFU/mL) [facility] Comment on above: Performed By: #### 4 4053 ####[facility] [address] [address] Giorgio Williamson M.D. [id number] US RENAL AND BLADDERon 01-29 US RENAL AND BLADDER [facility] Comment on above: Order Comment: Injur y/Trauma or Illness?:Illness/OtherHow long have you had these symptoms (acute/chronic)?:AcuteReason for exam?:AKIHistory of cancer?:uSurgeries, chemotherapy, or radiation?:uType of Exam?:InitialAdditional signs and symptoms?:none BASIC METABOLIC PANELon 07-2 Anion gap [Moles/Vol] 25 mmol/L High 10-20 [facility] Comment on above: Order Comment: [facility] has implemented the eGFR calculation approach that does not have a coefficient for race that conforms to the NKF-ASN Task Force Recommendations. Performed By: #### 4 6124 #### LAB [address] [address] Yusuf Villaseñor M.D. [id number] Calcium [Mass/Vol] 8.2 mg/dL Low 8.4-10.2 [facility] Comment on above: Order Comment: [facility] has implemented the eGFR calculation approach that does not have a coefficient for race that conforms to the NKF-ASN Task Force Recommendations. Performed By: #### 4 6124 #### LAB [address] [address] Yusuf Villaseñor M.D. [id number] Chloride [Moles/Vol] 96 mmol/L Low 98-108 [facility] Comment on above: Order Comment: [facility] has implemented the eGFR calculation approach that does not have a coefficient for race that conforms to the NKF-ASN Task Force Recommendations. Performed By: #### 4 6124 #### LAB [address] [place], [place] [address] Yusuf Villaseñor M.D. [id number] Creatinine [Mass/Vol] 1.86 mg/dL High 0.80-1.30 [facility] Comment on above: Order Comment: [facility] has implemented the eGFR calculation approach that does not have a coefficient for race that conforms to the NKF-ASN Task Force Recommendations. Performed By: #### 4 6124 #### LAB [address] [address] Yusuf Villaseñor M.D. [id number] EGFR 36 mL/min/1.73 m2 Low >=60 [facility] Comment on above: Order Comment: [facility] has implemented the eGFR calculation approach that does not have a coefficient for race that conforms to the NKF-ASN Task Force Recommendations. Result Comment: Aide mated GFR was calculated using the 2020 CKD-EPI creatinine equation. Performed By: #### 4 6147 #### LAB [address] [address] Yusuf Villaseñor M.D. [id number] Glucose [Mass/Vol] 464 mg/dL Off scale high 65-99 [facility] Comment on above: Order Comment: [facility] has implemented the eGFR calculation approach that does not have a coefficient for race that conforms to the NKF-ASN Task Force Recommendations. Performed By: #### 4 6124 #### LAB [address] [address] Yusuf Villaseñor M.D. [id number] HCO3 (Bld) [Moles/Vol] 13 mmol/L Low 21-32 [facility] Comment on above: Order Comment: [facility] has implemented the eGFR calculation approach that does not have a coefficient for race that conforms to the NKF-ASN Task Force Recommendations. Performed By: #### 4 6124 #### LAB [address] [address] Yusuf Villaseñor M.D. [id number] Potassium [Moles/Vol] 4.6 mmol/L Normal 3.5-5.1 [facility] Comment on above: Order Comment: [facility] has implemented the eGFR calculation approach that does not have a coefficient for race that conforms to the NKF-ASN Task Force Recommendations. Performed By: #### 4 6124 #### LAB [address] [address] Yusuf Villaseñor M.D. [id number] Sodium [Moles/Vol] 129 mmol/L Low 135-145 [facility] Comment on above: Order Comment: [facility] has implemented the eGFR calculation approach that does not have a coefficient for race that conforms to the NKF-ASN Task Force Recommendations. Performed By: #### 4 6124 #### LAB [address] [address] Yusuf Villaseñor M.D. [id number] Urea nitrogen [Mass/Vol] 38 mg/dL High 8-25 [facility] Comment on above: Order Comment: [facility] has implemented the eGFR calculation approach that does not have a coefficient for race that conforms to the NKF-ASN Task Force Recommendations. Performed By: #### 4 6124 #### LAB [address] [address] Yusuf Villaseñor M.D. [id number] Urea nitrogen/Creatinine [Mass ratio] 20.4 mg/mg High 10.0-20.0 [facility] Comment on above: Order Comment: [facility] has implemented the eGFR calculation approach that does not have a coefficient for race that conforms to the NKF-ASN Task Force Recommendations. Performed By: #### 4 6124 #### LAB [address] [address] Yusuf Villaseñor M.D. [id number] BETA-HYDROXYBUTYRATEon 01-28 BETA-HYDROXYBUTYRATE 2.1 mmol/L High 0.0-0.3 [facility] Comment on above: Performed By: #### 4 5139 #### LAB [address] [address] Yusuf Villaseñor M.D. [id number] BETA-HYDROXYBUTYRATE 4.2 mmol/L High 0.0-0.3 [facility] Comment on above: Performed By: #### 4 5139 #### LAB [address] [address] Yusuf Villaseñor M.D. [id number] BILIRUBIN, DIRECTon 01-29-20 Bilirubin.indirect [Mass/Vol] 1.0 mg/dL High 0.0-0.4 [facility] Comment on above: Performed By: #### 4 5145 #### LAB [address] [address] Yusuf Villaseñor M.D. [id number] BLOOD CULTURE AEROBIC/ANAERO BICon 01-28-2025 BLOOD CULTURE AEROBIC/ANAEROBIC Abnormal [facility] Comment on above: Performed By: #### 4 4014 ####[facility] [address] [place] [address] Giorgio Williamson M.D. [id number] BLOOD CULTURE ID PCRon 01-28 BLOOD CULTURE ID PCR Abnormal Not Detected [facility] Comment on above: Performed By: #### L [id number] ####[facility] [address] [place] [address] Giorgio Williamson M.D. [id number] CBCon 01-28-2025 AUTO NRBC 0.1 % Normal [facility] Comment on above: Order Comment: While on heparin Performed By: #### 4 5218 #### LAB [address] [address] Yusuf Villaseñor M.D. [id number] AUTO NRBC ABS COUNT 0.02 K/mcL High 0.00-0.00 [facility] Comment on above: Order Comment: While on heparin Performed By: #### 4 5218 #### LAB [address] [address] Yusuf Villaseñor M.D. [id number] Erythrocyte distribution width (RBC) [Ratio] 14.2 % Normal 11.6-14.8 [facility] Comment on above: Order Comment: While on heparin Performed By: #### 4 5218 #### LAB [address] [address] Yusuf Villaseñor M.D. [id number] Hematocrit (Bld) [Volume fraction] 34.2 % Low 41.0-53.0 [facility] Comment on above: Order Comment: While on heparin Performed By: #### 4 5218 #### LAB [address] [address] Yusuf Villaseñor M.D. [id number] Hemoglobin (Bld) [Mass/Vol] 10.8 g/dL Low 13.5-17.5 [facility] Comment on above: Order Comment: While on heparin Performed By: #### 4 5218 ####[facility] [address] [address] Yusuf Villaseñor M.D. [id number] MCH (RBC) [Entitic mass] 27.2 pg Normal 26.0-34.0 [facility] Comment on above: Order Comment: While on heparin Performed By: #### 4 [id number] #### LAB [address] [address] Yusuf Villaseñor M.D. [id number] MCV (RBC) [Entitic vol] 86.1 fL Normal 80.0-100.0 [facility] Comment on above: Order Comment: While on heparin Performed By: #### 4 [id number] #### LAB [address] [address] Yusuf Villaseñor M.D. [id number] MEAN CORPUSCULAR HEMOGLOBIN CONC 31.6 g/dL Normal 31.0-37.0 [facility] Comment on above: Order Comment: While on heparin Performed By: #### 4 [id number] #### LAB [address] [address] Yusuf Villaseñor M.D. [id number] Platelet mean volume (Bld) [Entitic vol] 10.0 fL Normal 9.4-12.4 [facility] Comment on above: Order Comment: While on heparin Performed By: #### 4 [id number] #### LAB [address] [address] Yusuf Villaseñor M.D. [id number] Platelets (Bld) [#/Vol] 162 10*3/uL Normal 150-400 [facility] Comment on above: Order Comment: While on heparin Performed By: #### 4 5218 #### LAB [address] [address] Yusuf Villaseñor M.D. [id number] RBC (Bld) [#/Vol] 3.97 10*6/uL Low 4.50-5.90 [facility] Comment on above: Order Comment: While on heparin Performed By: #### 4 [id number] #### LAB [address] [address] Yusuf Villaseñor M.D. [id number] WBC (Bld) [#/Vol] 22.21 10*3/uL High 4.50-11.00 [facility] Comment on above: Order Comment: While on heparin Performed By: #### 4 [id number] #### LAB [address] [address] Yusuf Villaseñor M.D. [id number] CBC WITH AUTO DIFFERENTIALon 01-28-2025 AUTO NRBC 0.0 % [facility] Comment on above: Performed By: #### L [id number] #### LAB [address] [address] Yusuf Villaseñor M.D. [id number] AUTO NRBC ABS COUNT 0.00 K/mcL Normal 0.00-0.00 [facility] Comment on above: Performed By: #### L [id number] #### LAB [address] [place] [address] Yusuf Villaseñor M.D. [id number] BASOPHILS ABSOLUTE COUNT 0.04 K/mcL Normal 0.00-0.30 [facility] Comment on above: Performed By: #### L [id number] #### LAB [address] [place] [address] Yusuf Villaseñor M.D. [id number] Basophils/100 WBC (Bld) 0.2 % [facility] Comment on above: Performed By: #### L [id number] #### LAB [address] [place] [address] Yusuf Villaseñor M.D. [id number] Eosinophils (Bld) [#/Vol] 0.00 10*3/uL Normal 0.00-0.50 [facility] Comment on above: Performed By: #### L [id number] #### LAB [address] [place] [address] Yusuf Villaseñor M.D. [id number] Eosinophils/100 WBC (Bld) 0.0 % [facility] Comment on above: Performed By: #### L [id number] #### LAB [address] [place] [address] Yusuf Villaseñor M.D. [id number] Erythrocyte distribution width (RBC) [Ratio] 14.1 % Normal 11.6-14.8 [facility] Comment on above: Performed By: #### L [id number] #### LAB [address] [address] Yusuf Villaseñor M.D. [id number] Hematocrit (Bld) [Volume fraction] 36.6 % Low 41.0-53.0 [facility] Comment on above: Performed By: #### L [id number] #### LAB [address] [address] Yusuf Villaseñor M.D. [id number] Hemoglobin (Bld) [Mass/Vol] 11.7 g/dL Low 13.5-17.5 [facility] Comment on above: Performed By: #### L [id number] #### LAB [address] [address] Yusuf Villaseñor M.D. [id number] IG ABSOLUTE 0.31 K/mcL High 0.00-0.30 [facility] Comment on above: Performed By: #### L [id number] #### LAB [address] [address] Yusuf Villaseñor M.D. [id number] IG PERCENT 1.70 % Normal [facility] Comment on above: Result Comment: The IG parameter is the percentage of metamyelocytes, myelocytes and promyelocytes. An immature granulocyte count (IG) of 1% or more suggests the possibility of infection, an IG count of 3% is very likely related to an infection. Performed By: #### L [id number] #### LAB [address] [place] [address] Yusuf Villaseñor M.D. [id number] Lymphocytes (Bld) [#/Vol] 0.31 10*3/uL Low 0.90-4.00 [facility] Comment on above: Performed By: #### L [id number] #### LAB [address] [place] [address] Yusuf Villaseñor M.D. [id number] Lymphocytes/100 WBC (Bld) 1.7 % Normal [facility] Comment on above: Performed By: #### L [id number] #### LAB [address] [address] Yusuf Villaseñor M.D. [id number] MCH (RBC) [Entitic mass] 27.1 pg Normal 26.0-34.0 [facility] Comment on above: Performed By: #### L [id number] #### LAB [address] [address] Yusuf Villaseñor M.D. [id number] MCV (RBC) [Entitic vol] 84.7 fL Normal 80.0-100.0 [facility] Comment on above: Performed By: #### L [id number] #### LAB [address] [address] Yusuf Villaseñor M.D. [id number] MEAN CORPUSCULAR HEMOGLOBIN CONC 32.0 g/dL Normal 31.0-37.0 [facility] Comment on above: Performed By: #### L [id number] #### LAB [address] [address] Yusuf Villaseñor M.D. [id number] Monocytes (Bld) [#/Vol] 0.58 10*3/uL Normal 0.30-0.90 [facility] Comment on above: Performed By: #### L [id number] #### LAB [address] [place] [address] Yusuf Villaseñor M.D. [id number] Monocytes/100 WBC (Bld) 3.2 % Normal [facility] Comment on above: Performed By: #### L [id number] ####[facility] [address] [address] Yusuf Villaseñor M.D. [id number] NEUTROPHILS ABSOLUTE COUNT 16.90 K/mcL High 1.70-7.00 [facility] Comment on above: Performed By: #### L [id number] #### LAB [address] [place] [address] Yusuf Villaseñor M.D. [id number] Neutrophils/100 WBC (Bld) 93.2 % Normal [facility] Comment on above: Performed By: #### L [id number] ####[facility] [address] [address] Yusuf Villaseñor M.D. [id number] Platelet mean volume (Bld) [Entitic vol] 9.4 fL Normal 9.4-12.4 [facility] Comment on above: Performed By: #### L [id number] ####[facility] [address] [address] Yusuf Villaseñor M.D. [id number] Platelets (Bld) [#/Vol] 170 10*3/uL Normal 150-400 [facility] Comment on above: Performed By: #### L [id number] ####[facility] [address] [address] Yusuf Villaseñor M.D. [id number] RBC (Bld) [#/Vol] 4.32 10*6/uL Low 4.50-5.90 [facility] Comment on above: Performed By: #### L [id number] ####[facility] [address] [address] Yusuf Villaseñor M.D. [id number] WBC (Bld) [#/Vol] 18.14 10*3/uL High 4.50-11.00 [facility] Comment on above: Performed By: #### L [id number] #### LAB [address] [address] Yusuf Villaseñor M.D. [id number] COMPREHENSIVE METABOLIC PANE Ruddy 01-28-2025 Albumin [Mass/Vol] 3.6 g/dL Normal 3.2-5.2 [facility] Comment on above: Order Comment: [facility] has implemented the eGFR calculation approach that does not have a coefficient for race that conforms to the NKF-ASN Task Force Recommendations. Performed By: #### 4 6126 ####[facility] [address] [address] Yusuf Villaseñor M.D. [id number] ALP [Catalytic activity/Vol] 115 U/L Normal 40-150 [facility] Comment on above: Order Comment: [facility] has implemented the eGFR calculation approach that does not have a coefficient for race that conforms to the NKF-ASN Task Force Recommendations. Performed By: #### 4 6126 #### LAB [address] [address] Yusuf Villaseñor M.D. [id number] ALT [Catalytic activity/Vol] 102 U/L High 0-50 U/L [facility] Comment on above: Order Comment: [facility] has implemented the eGFR calculation approach that does not have a coefficient for race that conforms to the NKF-ASN Task Force Recommendations. Performed By: #### 4 6126 #### LAB [address] [address] Yusuf Villaseñor M.D. [id number] Anion gap [Moles/Vol] 29 mmol/L High 10-20 [facility] Comment on above: Order Comment: [facility] has implemented the eGFR calculation approach that does not have a coefficient for race that conforms to the NKF-ASN Task Force Recommendations. Performed By: #### 4 [id number] #### LAB [address] [place] [address] Yusuf Villaseñor M.D. [id number] AST [Catalytic activity/Vol] 139 U/L High 0-50 U/L [facility] Comment on above: Order Comment: [facility] has implemented the eGFR calculation approach that does not have a coefficient for race that conforms to the NKF-ASN Task Force Recommendations. Performed By: #### 4 [id number] #### LAB [address] [address] Yusuf Villaseñor M.D. [id number] Bilirubin [Mass/Vol] 1.7 mg/dL High 0.0-1.3 [facility] Comment on above: Order Comment: [facility] has implemented the eGFR calculation approach that does not have a coefficient for race that conforms to the NKF-ASN Task Force Recommendations. Performed By: #### 4 [id number] #### LAB [address] [place], [place] [address] Yusuf Villaseñor M.D. [id number] Calcium [Mass/Vol] 9.1 mg/dL Normal 8.4-10.2 [facility] Comment on above: Order Comment: [facility] has implemented the eGFR calculation approach that does not have a coefficient for race that conforms to the NKF-ASN Task Force Recommendations. Performed By: #### 4 [id number] #### LAB [address] [address] Yusuf Villaseñor M.D. [id number] Chloride [Moles/Vol] 88 mmol/L Low 98-108 [facility] Comment on above: Order Comment: [facility] has implemented the eGFR calculation approach that does not have a coefficient for race that conforms to the NKF-ASN Task Force Recommendations. Performed By: #### 4 [id number] #### LAB [address] [address] Yusuf Villaseñor M.D. [id number] Creatinine [Mass/Vol] 1.65 mg/dL High 0.80-1.30 [facility] Comment on above: Order Comment: [facility] has implemented the eGFR calculation approach that does not have a coefficient for race that conforms to the NKF-ASN Task Force Recommendations. Performed By: #### 4 [id number] #### LAB [address] [address] Yusuf Villaseñor M.D. [id number] EGFR 42 mL/min/1.73 m2 Low >=60 [facility] Comment on above: Order Comment: [facility] has implemented the eGFR calculation approach that does not have a coefficient for race that conforms to the NKF-ASN Task Force Recommendations. Result Comment: Aide mated GFR was calculated using the 2020 CKD-EPI creatinine equation. Performed By: #### 4 [id number] #### LAB [address] [address] Yusuf Villaseñor M.D. [id number] Glucose [Mass/Vol] 528 mg/dL Off scale high 65-99 [facility] Comment on above: Order Comment: [facility] has implemented the eGFR calculation approach that does not have a coefficient for race that conforms to the NKF-ASN Task Force Recommendations. Performed By: #### 4 [id number] #### LAB [address] [address] Yusuf Villaseñor M.D. [id number] HCO3 (Bld) [Moles/Vol] 14 mmol/L Low 21-32 [facility] Comment on above: Order Comment: [facility] has implemented the eGFR calculation approach that does not have a coefficient for race that conforms to the NKF-ASN Task Force Recommendations. Performed By: #### 4 6126 #### LAB [address] [address] Yusuf Villaseñor M.D. [id number] Potassium [Moles/Vol] 5.1 mmol/L Normal 3.5-5.1 [facility] Comment on above: Order Comment: [facility] has implemented the eGFR calculation approach that does not have a coefficient for race that conforms to the NKF-ASN Task Force Recommendations. Performed By: #### 4 6126 #### LAB [address] [address] Yusuf Villaseñor M.D. [id number] Protein [Mass/Vol] 7.2 g/dL Normal 6.0-8.0 [facility] Comment on above: Order Comment: [facility] has implemented the eGFR calculation approach that does not have a coefficient for race that conforms to the NKF-ASN Task Force Recommendations. Performed By: #### 4 [id number] #### LAB [address] [address] Yusuf Villaseñor M.D. [id number] Sodium [Moles/Vol] 126 mmol/L Low 135-145 [facility] Comment on above: Order Comment: [facility] has implemented the eGFR calculation approach that does not have a coefficient for race that conforms to the NKF-ASN Task Force Recommendations. Performed By: #### 4 [id number] #### LAB [address] [address] Yusuf Villaseñor M.D. [id number] Urea nitrogen [Mass/Vol] 34 mg/dL High 8-25 [facility] Comment on above: Order Comment: [facility] has implemented the eGFR calculation approach that does not have a coefficient for race that conforms to the NKF-ASN Task Force Recommendations. Performed By: #### 4 [id number] #### LAB [address] [place], [place] [address] Yusuf Villaseñor M.D. [id number] Urea nitrogen/Creatinine [Mass ratio] 20.6 mg/mg High 10.0-20.0 [facility] Comment on above: Order Comment: [facility] has implemented the eGFR calculation approach that does not have a coefficient for race that conforms to the NKF-ASN Task Force Recommendations. Performed By: #### 4 [id number] #### LAB [address] [place], [place] [address] Yusuf Villaseñor M.D. [id number] CRP, INFLAMMATIONon 01-29-20 CRP [Mass/Vol] 311.0 mg/L High 0.0-10.0 [facility] Comment on above: Performed By: #### 4 5334 #### LAB [address] [place], [place] [address] Yusuf Villaseñor M.D. [id number] CT PULMONARY ARTERIESon 01-09 CT PULMONARY ARTERIES [facility] Comment on above: Order Comment: Injur y/Trauma or Illness?:Illness/OtherHow long have you had these symptoms (acute/chronic)?:AcuteReason for exam?:tachycardia, sobType of Exam?:InitialAdditional signs and symptoms?:pt on eliquis D-DIMER, QUANTITATIVEon 01-09 D-DIMER QUANTITATIVE 3.48 mcg/mL FEU High 0.27-0.49 [facility] Comment on above: Order Comment: A D-d min concentration of <0.5 micrograms per milliliter FEU is considered a low probability for pulmonary embolus (PE) and deep venous thrombosis (DVT). Results of this test should always be interpreted in conjunction with the patient's medical history,clinical presentation, and other findings. Clinical diagnosis should not be based on the results of the D-dimer alone. Performed By: #### 4 5434 #### LAB [address] [address] Yusuf Villaseñor M.D. [id number] ED Prov Noteon 01-28-2025 ED Prov Note Normal [facility] H AND Maximiliano 01-28-2025 H AND P Normal [facility] HEMOGLOBIN A1Con 01-28-2025 Glucose [Mass/Vol] 203 mg/dL High 74-114 [facility] Comment on above: Performed By: #### 4 8202 #### LAB [address] [address] Yusuf Villaseñor M.D. [id number] HbA1c (Bld) [Mass fraction] 8.7 % High 4.2-5.6 [facility] Comment on above: Performed By: #### 4 8202 #### LAB [address] [address] Yusuf Villaseñor M.D. [id number] LACTIC ACID, PLASMAon 2024 LACTIC ACID, PLASMA 6.0 mmol/L Off scale high 0.6-2.0 [facility] Comment on above: Performed By: #### 4 6053 #### LAB [address] [address] Yusuf Villaseñor M.D. [id number] MAGNESIUM LEVELon 01-28-2025 Magnesium [Mass/Vol] 1.9 mg/dL Normal 1.6-2.4 [facility] Comment on above: Performed By: #### 4 6109 ####[facility] LAB [address] [address] Yusuf Villaseñor M.D. [id number] PHOSPHORUSon 01-28-2025 Phosphate [Mass/Vol] 3.9 mg/dL High 2.3-3.7 [facility] Comment on above: Performed By: #### 4 6299 #### LAB [address] [place] [id number] Yusuf Villaseñor M.D. [id number] [facility]SE > Off scale high 65-99 [facility] Comment on above: Order Comment: Criti ian result acted upon time of test. Test performed at bedside. POC VENOUS BLOOD GAS PANEL-P AMANDEEP Dupont 01-28-2025 BASE EXCESS, VENOUS -12.8 Low -2.0-2.0 [facility] Comment on above: Order Comment: Criti ian result acted upon time of test. Test performed at bedside. CALCIUM IONIZED 4.2 mg/dL Low 4.5-5.3 [facility] Comment on above: Order Comment: Criti ina result acted upon time of test. Test performed at bedside. CARBOXYHEMOGLOBIN 2.5 % of total Hb High <=1.5 [facility] Comment on above: Order Comment: Criti ian result acted upon time of test. Test performed at bedside. Result Comment: Refe rence Ranges:[facility] Non-smokers: <1.5%Smokers: 1.5-5.0%Heavy Smokers: 5.0-9.0% Chloride [Moles/Vol] 101 mmol/L Normal 98-108 [facility] Comment on above: Order Comment: Criti ian result acted upon time of test. Test performed at bedside. FIO2 40 Normal [facility] Comment on above: Order Comment: Criti ian result acted upon time of test. Test performed at bedside. Glucose [Mass/Vol] 450 mg/dL Off scale high 65-99 [facility] Comment on above: Order Comment: Criti ian result acted upon time of test. Test performed at bedside. HCO3 (Bld) [Moles/Vol] 13.4 mmol/L Low 24.0-28.0 [facility] Comment on above: Order Comment: Criti ian result acted upon time of test. Test performed at bedside. Hematocrit (Bld) [Volume fraction] 35.0 % Low 41.0-53.0 [facility] Comment on above: Order Comment: Criti ian result acted upon time of test. Test performed at bedside. Hemoglobin (Bld) [Mass/Vol] 11.4 g/dL Low 13.5-17.5 [facility] Comment on above: Order Comment: Criti ian result acted upon time of test. Test performed at bedside. LACTIC ACID, WHOLE BLOOD 5.7 mmol/L Off scale high 0.6-2.0 [facility] Comment on above: Order Comment: Criti ian result acted upon time of test. Test performed at bedside. METHEMOGLOBIN 0.5 % Normal 0.0-2.0 [facility] Comment on above: Order Comment: Criti ian result acted upon time of test. Test performed at bedside. O2HB 90.4 % Normal No established reference range [facility] Comment on above: Order Comment: Criti ian result acted upon time of test. Test performed at bedside. Oxygen saturation in Blood 93.3 % High 40.0-70.0 [facility] Comment on above: Order Comment: Criti ian result acted upon time of test. Test performed at bedside. PCO2 VENOUS 31.4 mm Hg Low 41.0-51.0 [facility] Comment on above: Order Comment: Criti ian result acted upon time of test. Test performed at bedside. PH VENOUS 7.24 Low 7.32-7.42 [facility] Comment on above: Order Comment: Criti ian result acted upon time of test. Test performed at bedside. PO2 VENOUS 74 mm Hg High 25-40 [facility] Comment on above: Order Comment: Criti ian result acted upon time of test. Test performed at bedside. Potassium [Moles/Vol] 4.4 mmol/L Normal 3.5-5.1 [facility] Comment on above: Order Comment: Criti ian result acted upon time of test. Test performed at bedside. Sodium [Moles/Vol] 130 mmol/L Low 135-145 [facility] Comment on above: Order Comment: Criti ian result acted upon time of test. Test performed at bedside. SPECIMEN SOURCE RADIANCE Not specified Normal [facility] Comment on above: Order Comment: Criti ian result acted upon time of test. Test performed at bedside. BASE EXCESS, VENOUS -10.4 Low -2.0-2.0 [facility] Comment on above: Order Comment: Criti ian result acted upon time of test. Test performed at bedside. CALCIUM IONIZED 4.4 mg/dL Low 4.5-5.3 [facility] Comment on above: Order Comment: Criti ian result acted upon time of test. Test performed at bedside. CARBOXYHEMOGLOBIN 2.5 % of total Hb High <=1.5 [facility] Comment on above: Order Comment: Criti ian result acted upon time of test. Test performed at bedside. Result Comment: Refe rence Ranges:[place] Non-smokers: <1.5%Smokers: 1.5-5.0%Heavy Smokers: 5.0-9.0% Chloride [Moles/Vol] 94 mmol/L Low 98-108 [facility] Comment on above: Order Comment: Criti ian result acted upon time of test. Test performed at bedside. FIO2 21 Normal [facility] Comment on above: Order Comment: Criti ian result acted upon time of test. Test performed at bedside. Glucose [Mass/Vol] 522 mg/dL Off scale high 65-99 [facility] Comment on above: Order Comment: Criti ian result acted upon time of test. Test performed at bedside. HCO3 (Bld) [Moles/Vol] 14.7 mmol/L Low 24.0-28.0 [facility] Comment on above: Order Comment: Criti ian result acted upon time of test. Test performed at bedside. Hematocrit (Bld) [Volume fraction] 36.4 % Low 41.0-53.0 [facility] Comment on above: Order Comment: Criti ian result acted upon time of test. Test performed at bedside. Hemoglobin (Bld) [Mass/Vol] 11.9 g/dL Low 13.5-17.5 [facility] Comment on above: Order Comment: Criti ian result acted upon time of test. Test performed at bedside. LACTIC ACID, WHOLE BLOOD 5.4 mmol/L Off scale high 0.6-2.0 [facility] Comment on above: Order Comment: Criti ian result acted upon time of test. Test performed at bedside. METHEMOGLOBIN 0.5 % Normal 0.0-2.0 [facility] Comment on above: Order Comment: Criti ian result acted upon time of test. Test performed at bedside. O2HB 71.5 % Normal No established reference range [facility] Comment on above: Order Comment: Criti ian result acted upon time of test. Test performed at bedside. Oxygen saturation in Blood 73.7 % High 40.0-70.0 [facility] Comment on above: Order Comment: Criti ian result acted upon time of test. Test performed at bedside. PCO2 VENOUS 30.0 mm Hg Low 41.0-51.0 [facility] Comment on above: Order Comment: Criti ian result acted upon time of test. Test performed at bedside. PH VENOUS 7.30 Low 7.32-7.42 [facility] Comment on above: Order Comment: Criti ian result acted upon time of test. Test performed at bedside. PO2 VENOUS 42 mm Hg High 25-40 [facility] Comment on above: Order Comment: Criti ian result acted upon time of test. Test performed at bedside. Potassium [Moles/Vol] 4.9 mmol/L Normal 3.5-5.1 [facility] Comment on above: Order Comment: Criti ian result acted upon time of test. Test performed at bedside. Sodium [Moles/Vol] 127 mmol/L Low 135-145 [facility] Comment on above: Order Comment: Criti ian result acted upon time of test. Test performed at bedside. SPECIMEN SOURCE RADIANCE Not specified Normal [facility] Comment on above: Order Comment: Criti ian result acted upon time of test. Test performed at bedside. PROCALCITONINon 01-28-2025 PROCALCITONIN 2.66 ng/ml High <0.50 [facility] Comment on above: Order Comment: Resul ts >2.00 ng/ml represent a high risk of severe sepsis and/or septic shock. Performed By: #### 4 [id number] #### LAB [address] [place], [place] [address] Yusuf Villaseñor M.D. [id number] REFLEX LACTIC ACID, PLASMAon 01-28-2025 LACTIC ACID, PLASMA 5.8 mmol/L Off scale high 0.6-2.0 [facility] Comment on above: Performed By: #### L [id number] ####[facility] LAB [address] [place], [place] [address] Yusuf Villaseñor M.D. [id number] SEDIMENTATION RATEon 025 SEDIMENTATION RATE, ERYTHROCYTE 69 mm/hr High 0-20 [facility] Comment on above: Performed By: #### 4 6477 #### LAB [address] [place], [place] [address] Yusuf Villaseñor M.D. [id number] TROPONIN X 2 (NOW AND REPEAT IN 2 HOURS)on 01-28-2025 TROPONIN T DELTA % NG/L 323 % Off scale high <2 0% of Baseline Troponin [facility] Comment on above: Performed By: #### 4 6608 #### LAB [address] [address] Yusuf Villaseñor M.D. [id number] TROPONIN T DELTA CHANGE INTERPRETATION Probable acute injury or myocardial infarction. [facility] Comment on above: Performed By: #### 4 [id number] #### LAB [address] [address] Yusuf Villaseñor M.D. [id number] TROPONIN T NG/L 1046 ng/L Off scale high <=22 [facility] Comment on above: Performed By: #### 4 6608 #### LAB [address] [place] [address] Yusuf Villaseñor M.D. [id number] TROPONIN T DELTA % NG/L 186 % Off scale high <2 0% of Baseline Troponin [facility] Comment on above: Performed By: #### 4 6608 #### LAB [address] [place] [address] Yusuf Villaseñor M.D. [id number] TROPONIN T DELTA CHANGE INTERPRETATION Probable acute injury or myocardial infarction. [facility] Comment on above: Performed By: #### 4 6608 #### LAB [address] [place] [address] Yusuf Villaseñor M.D. [id number] TROPONIN T NG/L 708 ng/L Off scale high <=22 [facility] Comment on above: Performed By: #### 4 6608 #### LAB [address] [place] [address] Yusuf Villaseñor M.D. [id number] BASELINE TROPONIN T NG/L 247 ng/L Off scale high <=22 [facility] Comment on above: Performed By: #### 4 6608 #### LAB [address] [place] [address] Yusuf Villaseñor M.D. [id number] TROPONIN T INTERPRETATION Possible acute cardiac injury. [facility] Comment on above: Performed By: #### 4 6608 #### LAB [address] [place] [address] Yusuf Villaseñor M.D. [id number] URINALYSISon 01-28-2025 BACTERIA, URINE Rare Abnormal None Seen [facility] Comment on above: Order Comment: Micro scopic examination is performed on all urinalysis samples and only positive findings are reported. The test for blood on the chemical analytic portion of urinalysis may also be positive due to hemoglobinuria and myoglobinuria and if red blood cells are present they are quantified by microscopic examination. Performed By: #### 4 6625 #### LAB [address] [place] [address] Yusuf Villaseñor M.D. [id number] BILIRUBIN, URINE Negative Normal Negative [facility] Comment on above: Order Comment: Micro scopic examination is performed on all urinalysis samples and only positive findings are reported. The test for blood on the chemical analytic portion of urinalysis may also be positive due to hemoglobinuria and myoglobinuria and if red blood cells are present they are quantified by microscopic examination. Performed By: #### 4 6625 #### LAB [address] [place] [address] Yusuf Villaseñor M.D. [id number] BLOOD, URINE Small Abnormal Negative [facility] Comment on above: Order Comment: Micro scopic examination is performed on all urinalysis samples and only positive findings are reported. The test for blood on the chemical analytic portion of urinalysis may also be positive due to hemoglobinuria and myoglobinuria and if red blood cells are present they are quantified by microscopic examination. Performed By: #### 4 6625 #### LAB [address] [place] [address] Yusuf Villaseñor M.D. [id number] Clarity (U) Clear Normal Clear [facility] Comment on above: Order Comment: Micro scopic examination is performed on all urinalysis samples and only positive findings are reported. The test for blood on the chemical analytic portion of urinalysis may also be positive due to hemoglobinuria and myoglobinuria and if red blood cells are present they are quantified by microscopic examination. Performed By: #### 4 6625 #### LAB [address] [place] [address] Yusuf Villaseñor M.D. [id number] Color (U) Yellow Normal Colorless, Yellow [facility] Comment on above: Order Comment: Micro scopic examination is performed on all urinalysis samples and only positive findings are reported. The test for blood on the chemical analytic portion of urinalysis may also be positive due to hemoglobinuria and myoglobinuria and if red blood cells are present they are quantified by microscopic examination. Performed By: #### 4 6625 #### LAB [address] [place] [address] Yusuf Villaseñor M.D. [id number] Glucose Ql (U) >=500 Abnormal Negative [facility] Comment on above: Order Comment: Micro scopic examination is performed on all urinalysis samples and only positive findings are reported. The test for blood on the chemical analytic portion of urinalysis may also be positive due to hemoglobinuria and myoglobinuria and if red blood cells are present they are quantified by microscopic examination. Performed By: #### 4 6625 #### LAB [address] [place] [address] Yusuf Villaseñor M.D. [id number] Hyaline casts LM Ql (Urine sed) 3-5 Abnormal 0-2 [facility] Comment on above: Order Comment: Micro scopic examination is performed on all urinalysis samples and only positive findings are reported. The test for blood on the chemical analytic portion of urinalysis may also be positive due to hemoglobinuria and myoglobinuria and if red blood cells are present they are quantified by microscopic examination. Performed By: #### 4 [id number] #### LAB [address] [place] [address] Yusuf Villaseñor M.D. [id number] Ketones Ql (U) 20 mg/dL Abnormal Negative [facility] Comment on above: Order Comment: Micro scopic examination is performed on all urinalysis samples and only positive findings are reported. The test for blood on the chemical analytic portion of urinalysis may also be positive due to hemoglobinuria and myoglobinuria and if red blood cells are present they are quantified by microscopic examination. Performed By: #### 4 6625 #### LAB [address] [place] [id number] Yusuf Villaseñor M.D. [id number] Leukocyte esterase Test strip Ql (U) Trace Abnormal Negative [facility] Comment on above: Order Comment: Micro scopic examination is performed on all urinalysis samples and only positive findings are reported. The test for blood on the chemical analytic portion of urinalysis may also be positive due to hemoglobinuria and myoglobinuria and if red blood cells are present they are quantified by microscopic examination. Performed By: #### 4 6625 #### LAB [address] [place] [address] Yusuf Villaseñor M.D. [id number] MUCUS, URINE Rare Normal None Seen, Rare [facility] Comment on above: Order Comment: Micro scopic examination is performed on all urinalysis samples and only positive findings are reported. The test for blood on the chemical analytic portion of urinalysis may also be positive due to hemoglobinuria and myoglobinuria and if red blood cells are present they are quantified by microscopic examination. Performed By: #### 4 [id number] #### LAB [address] [place] [address] Yusuf Villaseñor M.D. [id number] NITRITE, URINE Negative Normal Negative [facility] Comment on above: Order Comment: Micro scopic examination is performed on all urinalysis samples and only positive findings are reported. The test for blood on the chemical analytic portion of urinalysis may also be positive due to hemoglobinuria and myoglobinuria and if red blood cells are present they are quantified by microscopic examination. Performed By: #### 4 6625 #### LAB [address] [place] [address] Yusuf Villaseñor M.D. [id number] pH (U) 5.5 [pH] Normal 5.0-7.0 [facility] Comment on above: Order Comment: Micro scopic examination is performed on all urinalysis samples and only positive findings are reported. The test for blood on the chemical analytic portion of urinalysis may also be positive due to hemoglobinuria and myoglobinuria and if red blood cells are present they are quantified by microscopic examination. Performed By: #### 4 [id number] #### LAB [address] [id number] Yusuf Villaseñor M.D. [id number] Protein (U) [Mass/Vol] 30 mg/dL Abnormal Negative [facility] Comment on above: Order Comment: Micro scopic examination is performed on all urinalysis samples and only positive findings are reported. The test for blood on the chemical analytic portion of urinalysis may also be positive due to hemoglobinuria and myoglobinuria and if red blood cells are present they are quantified by microscopic examination. Result Comment: Fals e positive results may occur in urines with large amounts of hemoglobin, pH greater than 8.0, contrast medium, or disinfectants including ammonium compounds. Performed By: #### 4 [id number] #### LAB [address] [address] Yusuf Villaseñor M.D. [id number] RBC LM.HPF (Urine sed) [#/Area] 10 /[HPF] High 0-3 [facility] Comment on above: Order Comment: Micro scopic examination is performed on all urinalysis samples and only positive findings are reported. The test for blood on the chemical analytic portion of urinalysis may also be positive due to hemoglobinuria and myoglobinuria and if red blood cells are present they are quantified by microscopic examination. Performed By: #### 4 [id number] ####[facility] [address] [address] Yusuf Villaseñor M.D. [id number] Specific gravity (U) [Rel density] 1.024 Normal 1.005-1.025 [facility] Comment on above: Order Comment: Micro scopic examination is performed on all urinalysis samples and only positive findings are reported. The test for blood on the chemical analytic portion of urinalysis may also be positive due to hemoglobinuria and myoglobinuria and if red blood cells are present they are quantified by microscopic examination. Performed By: #### 4 [id number] #### LAB [address] [address] Yusuf Villaseñor M.D. [id number] SQUAMOUS EPITHELIAL 2 /hpf Normal 0-4 [facility] Comment on above: Order Comment: Micro scopic examination is performed on all urinalysis samples and only positive findings are reported. The test for blood on the chemical analytic portion of urinalysis may also be positive due to hemoglobinuria and myoglobinuria and if red blood cells are present they are quantified by microscopic examination. Performed By: #### 4 [id number] #### LAB [address] [address] Yusuf Villaseñor M.D. [id number] UROBILINOGEN, URINE <2.0 Normal <2.0 [facility] Comment on above: Order Comment: Micro scopic examination is performed on all urinalysis samples and only positive findings are reported. The test for blood on the chemical analytic portion of urinalysis may also be positive due to hemoglobinuria and myoglobinuria and if red blood cells are present they are quantified by microscopic examination. Performed By: #### 4 [id number] #### LAB [address] [address] Yusuf Villaseñor M.D. [id number] WBC LM.HPF (Urine sed) [#/Area] 26 /[HPF] High 0-5 [facility] Comment on above: Order Comment: Micro scopic examination is performed on all urinalysis samples and only positive findings are reported. The test for blood on the chemical analytic portion of urinalysis may also be positive due to hemoglobinuria and myoglobinuria and if red blood cells are present they are quantified by microscopic examination. Performed By: #### 4 [id number] #### LAB [address] [place] [address] Yusuf Villaseñor M.D. [id number] XR CHEST PA/APon 01-28-2025 XR CHEST PA/AP [facility] Comment on above: Order Comment: Injur y/Trauma or Illness?:Illness/OtherHow long have you had these symptoms (acute/chronic)?:AcuteReason for exam?:palpitationsHistory of cancer?:uSurgeries, chemotherapy, or radiation?:uType of Exam?:InitialAdditional signs and symptoms?:tachycardia ED Prov Noteon 01-27-2025 ED Prov Note Normal [facility] XR WRIST LEFT 3+ VIEWS (ARCADIO GALICIA)on 01-27-2025 XR WRIST LEFT 3+ VIEWS (STANDARD) [facility] Comment on above: Order Comment: Injur y/Trauma or Illness?:Illness/OtherHow long have you had these symptoms (acute/chronic)?:AcuteReason for exam?:severe pain, pt states ganglion cystHistory of cancer?:uSurgeries, chemotherapy, or radiation?:uType of Exam?:InitialAdditional signs and symptoms?:wound check ED Prov Noteon 01-26-2025 ED Prov Note HPI: 01/26/2025, Time: @NOWTUNDE@ Andrew Mccollum Clayton is a 79 y.o. male presenting to the ED for persistent left wrist pain status post incision and drainage of abscess left wrist done earlier today, beginning over the last week ago. The complaint has been constant, moderate in severity, and worsened by changing position. No alleviating factors. No fever or chills and patient does have adjacent swelling and erythema but no red streaks ROS: Pertinent positives and negatives are stated within HPI, all other systems reviewed and are negative. 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 Social History: reports that he quit smoking about 51 years ago. His smoking use included cigarettes. He started smoking about 63 years ago. He has a 36 pack-year smoking history. He has quit using smokeless tobacco. His smokeless tobacco use included chew. He reports that he does not currently use alcohol. He reports that he does not use drugs. Family History: family history includes COPD in his mother; Diabetes in his father; Stroke in his paternal grandmother. The patient's home medications have been reviewed. Allergies: Pioglitazone -------- RESULTS ------- All laboratory and radiology results have been personally reviewed by myself LABS: Results for orders placed or performed in visit on 11/09/24 Lipid panel Collection Time: 11/09/24 8:50 AM Result Value Ref Range Cholesterol ([facility]) 118 <200 mg/dL HDL ([facility]) 57 > OR = 40 mg/dL Triglycerides ([facility]) 38 <150 mg/dL LDL Cholesterol ([facility]) 50 mg/dL (calc) Chol/HDL Ratio ([facility]) 2.1 <5.0 (calc) Non HDL Cholesterol ([facility]) 61 <130 mg/dL (calc) Comprehensive metabolic panel Collection Time: 11/09/24 8:50 AM Result Value Ref Range Glucose ([facility]) 84 65 - 139 mg/dL BUN ([facility]) 30 (H) 7 - 25 mg/dL Creatinine ([facility]) 0.99 0.70 - 1.22 mg/dL eGFR ([facility]) 77 > OR = 60 mL/min/1.73m2 Sodium ([facility]) 133 (L) 135 - 146 mmol/L Potassium ([facility]) 4.8 3.5 - 5.3 mmol/L Chloride ([facility]) 101 98 - 110 mmol/L CO2 ([facility]) 25 20 - 32 mmol/L Electrolyte Balance ([facility]) 7 7 - 17 mmol/L (calc) Calcium ([facility]) 9.3 8.6 - 10.3 mg/dL Total Protein ([facility]) 7.3 6.1 - 8.1 g/dL Albumin, Serum ([facility]) 4.2 3.6 - 5.1 g/dL Bilirubin, Total ([facility]) 0.6 0.2 - 1.2 mg/dL Alkaline Phosphatase ([facility]) 56 35 - 144 U/L AST ([facility]) 17 10 - 35 U/L ALT ([facility]) 10 9 - 46 U/L CBC and Differential Collection Time: 11/09/24 8:50 AM Result Value Ref Range WBC ([facility]) 8.1 3.8 - 10.8 Thousand/uL RBC ([facility]) 4.40 4.20 - 5.80 Million/uL Hemoglobin ([facility]) 12.4 (L) 13.2 - 17.1 g/dL Hematocrit ([facility]) 38.0 (L) 38.5 - 50.0 % MCV ([facility]) 86.4 80.0 - 100.0 fL MCH ([facility]) 28.2 27.0 - 33.0 pg MCHC ([facility]) 32.6 32.0 - 36.0 g/dL RDW ([facility]) 12.9 11.0 - 15.0 % Platelets ([facility]) 185 140 - 400 Thousand/uL MPV ([facility]) 9.6 7.5 - 12.5 fL Absolute Neutrophils ([facility]) 5,354 1,500 - 7,800 cells/uL Absolute Lymphocytes ([facility]) 2,009 850 - 3,900 cells/uL Absolute Monocytes ([facility]) 583 200 - 950 cells/uL Absolute Eosinophils ([facility]) 97 15 - 500 cells/uL Absolute Basophils ([facility]) 57 0 - 200 cells/uL Neutrophils ([facility]) 66.1 % Lymphocytes ([facility]) 24.8 % Monocytes ([facility]) 7.2 % Eosinophils ([facility]) 1.2 % Basophils ([facility]) 0.7 % T4, free Collection Time: 11/09/24 8:50 AM Result Value Ref Range T4, Free ([facility]) 1.1 0.8 - 1.8 ng/dL TSH Collection Time: 11/09/24 8:50 AM Result Value Ref Range TSH ([facility]) 1.31 0.40 - 4.50 mIU/L Hemoglobin A1c Collection Time: 11/09/24 8:50 AM Result Value Ref Range Hemoglobin A1C ([facility]) 8.3 (H) <5.7 % RADIOLOGY: Interpreted by Radiologist. No orders to display ---- NURSING NOTES AND VITALS REVIEWED ------ The nursing notes within the ED encounter and vital signs as below have been reviewed. BP 131/70 (BP Location: Left arm, Patient Position: Sitting) Pulse 88 Temp 98.1 degrees F (36.7 degrees C) (Temporal) Resp 18 Ht 5' 7 Wt 99.8 kg (220 lb) SpO2 94% BMI 34.46 kg/m Oxygen Saturation Interpretation: Normal ---------PHYSICAL EXAM Constitutional/Genera l: Alert and oriented x3, moderate apparent discomfort Head: NC/AT Eyes: PERRL, EOMI Mouth: Oropharynx clear, handling secretions, no trismus Neck: Supple, full ROM, no meningeal signs Pulmonary: Lungs clear to auscultation segundo (more content not included)... [facility] ED Prov Note HPI: 01/26/2025, Time: @ANDRY@ Andrew Mccollum Clayton is a 79 y.o. male presenting to the ED for left wrist pain and history of ganglion cyst left wrist, beginning specially last few days ago. The complaint has been constant, moderate in severity, and worsened by changing position. And palpation. ROS: Pertinent positives and negatives are stated within HPI, all other systems reviewed and are negative. 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 Social History: reports that he quit smoking about 51 years ago. His smoking use included cigarettes. He started smoking about 63 years ago. He has a 36 pack-year smoking history. He has quit using smokeless tobacco. His smokeless tobacco use included chew. He reports that he does not currently use alcohol. He reports that he does not use drugs. Family History: family history includes COPD in his mother; Diabetes in his father; Stroke in his paternal grandmother. The patient's home medications have been reviewed. Allergies: Pioglitazone -------- RESULTS ------- All laboratory and radiology results have been personally reviewed by myself LABS: Results for orders placed or performed in visit on 11/09/24 Lipid panel Collection Time: 11/09/24 8:50 AM Result Value Ref Range Cholesterol ([facility]) 118 <200 mg/dL HDL ([facility]) 57 > OR = 40 mg/dL Triglycerides ([facility]) 38 <150 mg/dL LDL Cholesterol ([facility]) 50 mg/dL (calc) Chol/HDL Ratio ([facility]) 2.1 <5.0 (calc) Non HDL Cholesterol ([facility]) 61 <130 mg/dL (calc) Comprehensive metabolic panel Collection Time: 11/09/24 8:50 AM Result Value Ref Range Glucose ([facility]) 84 65 - 139 mg/dL BUN ([facility]) 30 (H) 7 - 25 mg/dL Creatinine ([facility]) 0.99 0.70 - 1.22 mg/dL eGFR ([facility]) 77 > OR = 60 mL/min/1.73m2 Sodium ([facility]) 133 (L) 135 - 146 mmol/L Potassium ([facility]) 4.8 3.5 - 5.3 mmol/L Chloride ([facility]) 101 98 - 110 mmol/L CO2 ([facility]) 25 20 - 32 mmol/L Electrolyte Balance ([facility]) 7 7 - 17 mmol/L (calc) Calcium ([facility]) 9.3 8.6 - 10.3 mg/dL Total Protein ([facility]) 7.3 6.1 - 8.1 g/dL Albumin, Serum ([facility]) 4.2 3.6 - 5.1 g/dL Bilirubin, Total ([facility]) 0.6 0.2 - 1.2 mg/dL Alkaline Phosphatase ([facility]) 56 35 - 144 U/L AST ([facility]) 17 10 - 35 U/L ALT ([facility]) 10 9 - 46 U/L CBC and Differential Collection Time: 11/09/24 8:50 AM Result Value Ref Range WBC ([facility]) 8.1 3.8 - 10.8 Thousand/uL RBC ([facility]) 4.40 4.20 - 5.80 Million/uL Hemoglobin ([facility]) 12.4 (L) 13.2 - 17.1 g/dL Hematocrit ([facility]) 38.0 (L) 38.5 - 50.0 % MCV ([facility]) 86.4 80.0 - 100.0 fL MCH ([facility]) 28.2 27.0 - 33.0 pg MCHC ([facility]) 32.6 32.0 - 36.0 g/dL RDW ([facility]) 12.9 11.0 - 15.0 % Platelets ([facility]) 185 140 - 400 Thousand/uL MPV ([facility]) 9.6 7.5 - 12.5 fL Absolute Neutrophils ([facility]) 5,354 1,500 - 7,800 cells/uL Absolute Lymphocytes ([facility]) 2,009 850 - 3,900 cells/uL Absolute Monocytes ([facility]) 583 200 - 950 cells/uL Absolute Eosinophils ([facility]) 97 15 - 500 cells/uL Absolute Basophils ([facility]) 57 0 - 200 cells/uL Neutrophils ([facility]) 66.1 % Lymphocytes ([facility]) 24.8 % Monocytes ([facility]) 7.2 % Eosinophils ([facility]) 1.2 % Basophils ([facility]) 0.7 % T4, free Collection Time: 11/09/24 8:50 AM Result Value Ref Range T4, Free ([facility]) 1.1 0.8 - 1.8 ng/dL TSH Collection Time: 11/09/24 8:50 AM Result Value Ref Range TSH ([facility]) 1.31 0.40 - 4.50 mIU/L Hemoglobin A1c Collection Time: 11/09/24 8:50 AM Result Value Ref Range Hemoglobin A1C ([facility]) 8.3 (H) <5.7 % RADIOLOGY: Interpreted by Radiologist. No orders to display ---- NURSING NOTES AND VITALS REVIEWED ------ The nursing notes within the ED encounter and vital signs as below have been reviewed. BP 121/80 (BP Location: Right arm, Patient Position: Sitting) Pulse 88 Temp 98.1 degrees F (36.7 degrees C) (Temporal) Resp 18 Ht 5' 7 Wt 99.8 kg (220 lb) SpO2 94% BMI 34.46 kg/m Oxygen Saturation Interpretation: Normal ---------PHYSICAL EXAM Constitutional/Genera l: Alert and oriented x3, well appearing, non toxic in moderate apparent pain Head: NC/AT Eyes: PERRL, EOMI Mouth: Oropharynx clear, handling secretions, no trismus Neck: Supple, full ROM, no meningeal signs Pulmonary: Lungs clear to auscultation bilaterally, no wheezes, rales, or rhonchi. Not in respiratory distress Cardiovascular: Regular rate and rhythm, no mu (more content not included)... Normal [facility] XR HAND LEFT 3+ VIEWS (STAND GLYNN)on 11-07-2024 XR HAND LEFT 3+ VIEWS (STANDARD) EXAMINATION: XR HAND LEFT 3+ VIEWS (STANDARD) HISTORY: ORDERING SYSTEM PROVIDED HISTORY: Pain, TECHNOLOGIST PROVIDED HISTORY: Illness/Other Reason for exam: Dorsal left hand pain with moveable lump x 6 months without injury. Cancer History: u Surgery, RadiationHistory: u Encounter Type: Initial Additional signs and symptoms: none ORDERING SYSTEM PROVIDED DIAGNOSIS CODES: R52 Pain COMPARISON: Left hand study from 11/28/2017 FINDINGS: Three views of the left hand. The visualized osseous structures are osteopenic. There is no acute osseous lesion, fracture or subluxation. There is increasing degenerative change in the 1st CMC and intercarpal joints. 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 There is calcified atherosclerotic change of the visualized arteries in the wrist and hand. Soft tissues are within normal limits. IMPRESSION: Worsening degenerative change in the intercarpal joints. The changes involve prominent periarticular erosions concerning for change from inflammatory arthritis. Worsening diffuse osteopenia Workstation ID: [id number] Dictated by: MUNDO WADE on TueNovember 08, 2024 8:13:41 PM EDT Transcribed by: MUNDO WADE on TueNovember 08, 2024 8:13:41 PM EDT Finalized by: MUNDO WADE on TueNovember 08, 2024 8:13:41 PM EDT Normal [facility] Comment on above: Order Comment: Injur y/Trauma or Illness?:Illness/Other How long have you had these symptoms (acute/chronic)?:Chronic Reason for exam?:Dorsal left hand pain with moveable lump x 6 months without injury. History of cancer?:u Surgeries, chemotherapy, or radiation?:u Type of Exam?:Initial Additional signs and symptoms?:none US ANKLE/BRACHIAL INDICES EX TREMITY LIMITEDon 04-26-2024 US ANKLE/BRACHIAL INDICES EXTREMITY LIMITED Normal [facility] ANKLE/BRACHIAL INDICES EXTREMITY LIMITED Normal [facility] Basic metabolic 2000 panelon 06-30-2023 Anion gap [Moles/Vol] 9 mmol/L Low 10 - 2 0 mmol/L [facility] Calcium [Mass/Vol] 8.7 mg/dL 8.4 - 10. 2 mg/dL [facility] Chloride [Moles/Vol] 103 mmol/L 98 - 10 8 mmol/L [facility] Creatinine [Mass/Vol] 1.03 mg/dL 0.80 - 1.30 mg/dL [facility] GFR/1.73 sq M.predicted CKD-EPI (S/P/Bld) [Vol rate/Area] 74 - PINF [facility] Comment on above: Estimated GFR was ca lculated using the 2020 CKD-EPI creatinine equation. Glucose [Mass/Vol] 142 mg/dL High 65 - 99 mg/dL [facility] H[facility]3 [Moles/Vol] 29 mmol/L 21 - 32 mmol/L [facility] Interpretation and review of laboratory results Abnormal [facility] Potassium [Moles/Vol] 4.5 mmol/L 3.5 - 5.1 mmol/L [facility] Sodium [Moles/Vol] 136 mmol/L 135 - 145 mmol/L [facility] Urea nitrogen [Mass/Vol] 23 mg/dL 8 - 25 mg/dL [facility] Urea nitrogen/Creatinine [Mass ratio] 22.3 mg/mg High 10.0 - 20.0 [facility] has implemented the eGFR calculation approach that does not have a coefficient for race that conforms to the NKF-ASN Task Force Recommendations. [facility] ECG 12 Leadon 03-04-2023 Atrial Rate [facility] P [place] [facility] P-R Interval [facility] Q-T Interval [facility] Q-T Interval (corrected) [facility] QRS Duration [facility] QTC Calculation ([facility]) [facility] [place] [facility] T [place] [facility] Ventricular Rate [facility] ESR Westergren method (Bld) [Velocity]on 01-21-2023 ESR (Bld) [Velocity] 43 mm/h High [facility] Interpretation and review of laboratory results Abnormal [facility] UrinalysisOrdered By: Aye lloyd on 01-21-2023 Bacteria Auto Ql (U) None Seen None Se en /hpf [facility] Bilirubin Ql (U) Negative Negative [facility] Clarity Refractometry automated (U) Clear Clear [facility] Color (U) Colorless Colorless, Yellow [facility] Epithelial cells.squamous Auto (Urine sed) [#/Area] 1 [facility] Glucose Auto test strip (U) [Mass/Vol] Negative Negative mg/dL [facility] Hemoglobin Auto test strip Ql (U) Negative Negative [facility] Interpretation and review of laboratory results Normal [facility] Ketones (U) [Mass/Vol] Negative Negat aleks[place] mg/dL [facility] Leukocyte esterase Auto test strip Ql (U) Negative Negative [facility] Nitrite Auto test strip Ql (U) Negative Negative [facility] pH (U) 5.5 [pH] 5.0 - 7.0 [facility] Protein (U) [Mass/Vol] Negative Negat aleksander mg/dL [facility] RBC Auto (Urine sed) [#/Area] 1 [facility] Specific gravity (U) [Rel density] 1.008 1.005 - 1.025 [facility] Urobilinogen (U) [Mass/Vol] mg/dL NINF - 2.0 mg/dL [facility] WBC Auto (Urine sed) [#/Area] [facility] Microscopic examination is performed on all urinalysis samples and only positive findings are reported. The test for blood on the chemical analytic portion of urinalysis may also be positive due to hemoglobinuria and myoglobinuria and if red blood cells are present they are quantified by microscopic examination. [facility] Basic metabolic 2000 panelon 12-22-2021 Anion gap [Moles/Vol] 11 mmol/L 10 - 2 0 mmol/L [facility] Calcium [Mass/Vol] 9.2 mg/dL 8.4 - 10. 2 mg/dL [facility] Chloride [Moles/Vol] 106 mmol/L 98 - 10 8 mmol/L [facility] Creatinine [Mass/Vol] 1.04 mg/dL 0.80 - 1.30 mg/dL [facility] GFR/1.73 sq M.predicted CKD-EPI (S/P/Bld) [Vol rate/Area] 74 - PINF [facility] Comment on above: Estimated GFR was ca lculated using the 2020 CKD-EPI creatinine equation. Glucose [Mass/Vol] 97 mg/dL 65 - 99 mg/dL [place] HCO3 [Moles/Vol] 27 mmol/L 21 - 32 mmol/L [facility] Interpretation and review of laboratory results Abnormal [facility] Potassium [Moles/Vol] 4.5 mmol/L 3.5 - 5.1 mmol/L [facility] Sodium [Moles/Vol] 139 mmol/L 135 - 145 mmol/L [facility] Urea nitrogen [Mass/Vol] 23 mg/dL 8 - 25 mg/dL [facility] Urea nitrogen/Creatinine [Mass ratio] 22.1 mg/mg High 10 - 20 [facility] has implemented the eGFR calculation approach that does not have a coefficient for race that conforms to the NKF-ASN Task Force Recommendations. [facility] ECG 12-LEADOrdered By: Nichol Healy on 01-09-2021 Atrial Rate [facility] [place] [facility] P-R Interval [facility] Q-T Interval [facility] Q-T Interval (corrected) [facility] QRS Duration [facility] QTC Calculation (Bezet) [facility] [place] [facility] T [place] [facility] COMPREHENSIVE PANELon 2019 Albumin [Mass/Vol] 3.9 g/dL Normal 3.4 - 5.0 [facility] Comment on above: Performed By: #### C MP ####[facility] [address] ALP [Catalytic activity/Vol] 70 U/L Normal 33 - 136 [facility] Comment on above: Performed By: #### C MP ####[address] [address] ALT [Catalytic activity/Vol] 16 U/L Normal 10 - 52 [facility] Comment on above: Result Comment: Carie ents treated with Sulfasalazine may generate falsely decreased results for ALT. Performed By: #### C MP ####[address] [id number] Anion gap [Moles/Vol] 11 mmol/L Normal 10 - 20 [facility] Comment on above: Performed By: #### C MP ####[address] [id number] AST [Catalytic activity/Vol] 17 U/L Normal 9 - 39 [facility] Comment on above: Performed By: #### C MP ####[address] [id number] Bilirubin [Mass/Vol] 0.6 mg/dL Normal 0.0 - 1.2 [facility] Comment on above: Performed By: #### C MP ####[address] [id number] Calcium [Mass/Vol] 9.2 mg/dL Normal 8.6 - 10.3 [facility] Comment on above: Performed By: #### C MP ####[address] [id number] Chloride [Moles/Vol] 104 mmol/L Normal 98 - 107 [facility] Comment on above: Performed By: #### C MP ####[address] [address] Creatinine [Mass/Vol] 0.94 mg/dL Normal 0.50 - 1.30 [facility] Comment on above: Performed By: #### C MP ####[address] [id number] GFR- AM. >60 Normal >60 [facility] Comment on above: Result Comment: CALC ULATIONS OF ESTIMATED GFR ARE PERFORMED USING THE MDRD STUDY EQUATION FOR THE IDMS-TRACEABLE CREATININE METHODS. CLIN CHEM 2007;53:766-72 Performed By: #### C MP ####[address] [address] GFR-NON AM. >60 Normal >60 [facility] Comment on above: Performed By: #### C MP ####[address] [address] Glucose [Mass/Vol] 189 mg/dL High 74 - 99 [facility] Comment on above: Performed By: #### C MP ####[address] [address] HCO3 (Bld) [Moles/Vol] 27 mmol/L Normal 21 - 32 [facility] Comment on above: Performed By: #### C MP ####[address] [address] Potassium [Moles/Vol] 4.0 mmol/L Normal 3.5 - 5.3 [facility] Comment on above: Performed By: #### C MP ####[address] [address] Protein [Mass/Vol] 6.8 g/dL Normal 6.4 - 8.2 [facility] Comment on above: Performed By: #### C MP ####[address] [address] Sodium [Moles/Vol] 138 mmol/L Normal 136 - 145 [facility] Comment on above: Performed By: #### C MP ####[address] [address] Urea nitrogen [Mass/Vol] 23 mg/dL Normal 6 - 23 [facility] Comment on above: Performed By: #### C MP ####[address] [address] HEMOGLOBIN A1Con 05-05-2020 HbA1c (Bld) [Mass fraction] 209 MG/DL Normal [facility] Comment on above: Performed By: #### C BCDF #### [address] [address] HbA1c (Bld) [Mass fraction] 8.9 % Normal [facility] Comment on above: Result Comment: Diag nosis of Diabetes-Adults Non-Diabetic: < or = 5.6% Increased risk for developing diabetes: 5.7-6.4% Diagnostic of diabetes: > or = 6.5% . Monitoring of Diabetes Age (y) Therapeutic Goal (%) Adults: >18 <7.0 Pediatrics: 13-18 <7.5 7-12 <8.0 0- 6 7.5-8.5 [employer]. Diabetes Care 33(S1), Jul 2009. Performed By: #### C BCDF #### [place] [id number] THYROXINE,FREEon 05-05-2020 THYROXINE,FREE 1.10 ng/dL Normal 0.61 - 1.12 [facility] Comment on above: Result Comment: Thyr oxine Free testing is performed using different testing methodology at [facility] than at other [facility]. Direct result comparisons should only be made within the same method. . Biotin can cause falsely elevated free T4 results. Patients taking a Biotin dose of up to 10 mg/day should refrain from taking Biotin for 24 hours before sample collection. Patient taking a Biotin dose of >10 mg/day should consult with their physician or the laboratory before the blood draw. Performed By: #### T 4FRE ####[place] [id number] TSHon 05-05-2020 TSH Qn 2.39 m[IU]/L Normal 0.44 - 3.98 [facility] Comment on above: Result Comment: TSH testing is performed using different testing methodology at [facility] than at other [facility]. Direct result comparisons should only be made within the same method. Performed By: #### T SH2 ####[place] [address] Provider Note - ED v2on 03-12 Provider Note - ED v2 Provider Note - ED v2: Chart Review: ED NOTES ED NOTES: 74-year-old male presents with bleeding from his chin. Patient was shaving last night and avulsed some skin off. Patient is on anticoagulation medication but is unsure what it is. Patient's had intermittent bleeding since last night. We will place Surgicel on the wound with a dressing and he can be discharged bleeding ceases. Patient has no other complaints. HISTORY OF PRESENTING ILLNESS ANDREW is a 74 year old Male and was seen by me at 02-Apr-2020 07:44. The historian is the patient. Triage Information: Most recent Vital Sign Value Date PAST MEDICAL HISTORY ATTESTATION: I have reviewed and confirmed nurse's/medic's notes for patient's medications, allergies, medical history, and surgical history ALLERGIES/INTOLERANCE S: No Known Allergies HEALTH HISTORY: No documented data. OUTPATIENT MEDICATIONS: Home Medications Review Status for Reconciliation: N/A Med Status: N/A No documented data. SIGNIFICANT EVENTS: No documented data. REVIEW OF SYSTEMS INTEGUMENTARY: ( Superficial avulsion of chin) All other systems reviewed and are negative RESULTS/VITAL SIGNS VITAL SIGNS: *Vital Signs have not been recorded in the last 5 hours PHYSICAL EXAM Image Comments: Physical [id number]-tesr-pkpt l avulsion of skin along the submental area of the chin on the right. Very minimal bleeding which is controlled with direct pressure. No submandibular lymphadenopathy Rest of physical examination is unremarkable. CLINICAL IMPRESSION Diagnosis/Annotation: ED Dx Name:Laceration of chin Code:S01.81XA Dispostion: discharged Type: home ATTESTATION Comments/Additional Findings: 1 leave dressing on for minimum of 24 hours 2 follow-up with family medical doctor as directed if no improvement return to ED. CRITICAL CARE TIME Is this a critically ill patient: no Electronic Signatures: Jenaro Villalta () (Signed 02-Apr-2020 08:02) Authored: ED Notes, HPI, PMH, ROS, PE, Results/Vital Signs, Clinical Impression, Attestation, Chart Review, Scores Last Updated: 02-Apr-2020 08:02 by Jenaro Villalta () [facility] Risk Screen - Adult Emergenc yon 04-02-2020 Risk Screen - Adult Emergency Preferred Language: Preferred Language: Preferred Language for Discussing Health Care (patient/designee)Chloe hinds Advanced Directives: Advance Directive/DNRno Family Violence Adult: Abuse Screen: Are you or have you been threatened or abused physically, emotionally, or sexually by anyoneno Learning Assessment (Patient): Learning Assessment (Patient): Patient is Able to be Assessed for Learningyes Factors Influencing Readiness to Learnn/a Factors that Impact Ability to Learnnone Devices/Methods Used to Communicatenone Learning Preferencesverbal instruction Cultural Considerationsnone Developmental Considerationsnone Latter Day Considerationsnone Learning Assessment (Other Learner): Learning Assessment (Other Learner): Other learner availableno Pressure Injury/TB/Substance: Pressure Injury: Do you have a coughno Substance Use Current or Former Historynever: Street Drugs YES: Cigarette/Tobacco Smoking Statusformer smoker Admission Risk Screen: Significant IndicatorsComplete CAGE: CAGE: Is this an injured [place] [place]/[place]/[facility]/[place]): no Electronic Signatures: Elinor Sandoval (RN) (Signed 02-Apr-2020 08:00) Authored: Preferred Language, Advanced Directives, Family Violence Adult, Learning Assessment (Patient), Learning Assessment (Other Learner), Pressure Injury/TB/Substance, Pressure Injury, CAGE Last Updated: 02-Apr-2020 08:00 by Elinor Sandoval (RN) Normal [facility] Triage - EDon 04-02-2020 Triage - ED Chart Review: PRIMARY ASSESSMENT ANDREW ARNOLD's primary assessment is Within Defined Limits. The airway is open and patent. Breathing spontaneous and unlabored with clear breath sounds bilaterally. Circulation is normal with good peripheral pulses. Skin is warm and dry and color is normal for race. ARRIVAL INFORMATION Means of Arrival: Ambulatory Mode of Arrival: private vehicle Arrival From: home Language: Spoken Language Preferred: Lebanese Reading Language Preferred: Lebanese Present on Arrival: Device Present on Arrival to ED: no CHIEF COMPLAINT ANDREW ARNOLD is a Male patient with a chief complaint of lacerations (states he cut his chin last pm at 1999 while shaving. states it started bleeding again this morning). Triage Date/Time: 02-Apr-2020 07:43 Pain Rating (0-10): 0 = None Vital Signs: Temperature: 97.6F ( 36.4C) taken oral Blood Pressure: 149/84 Mean: Heart Rate: 90 Respiratory Rate: 16 Pulse Oximetry: 95% on room air, no respiratory support. Height: 5 feet 7.00 inches. 170.1 CM Weight: 217.1 pounds. Calculated 98.5 kg. (stated) Calculated BMI (kg/m2): 34.042 Calculated BSA (m2) 2.16 Rhonda Coma Scale: Best Eye Response: (E4) spontaneous Best Motor Response: (M6) obeys commands Best Verbal Response: (V5) oriented Rhonda Score: 15 Allergies: no Patient has homicidal thoughts: no INDIRA: 5 Symptoms Are POSITIVE For: laceration. Risk Screens Suicide Risk Screen In the Past Month: Have you wished you were or wished you could go to sleep and not wake up no In the Past Month: Have you had any actual thoughts of killing yourself no In Your Lifetime: Have you ever done anything, started to do anything, or prepared to do anything to end your life no Monk Fall Scale Screening Has the patient fallen before (or is the patient in the ED as a result of a fall) has not had a fall Does the patient have an impaired gait does not have impaired gait Is the patient cognitively impaired not cognitively impaired Interventions: Monk Fall Interventions: LOW INTERVENTIONS: *patient oriented to surroundings and call system, * patient/family falls education completed and documented, *patients fall status communicated during bedside handoff, *whiteboard updated, *mode of toileting discussed with patient, *bed in low position with brakes locked, *call light in reach, * non-skid footwear TRAVEL HISTORY Travel History Coronavirus Screening: no exposure or symptoms Travel Exposure History: NO travel to International locations in the past 30 days PAIN Pain Scale Used: ISAI Pain Rating (0-10): 0 = None Past Medical History: Past Medical History Reviewedyes Hypertension (HTN): Past Medical History, Active Electronic Signatures: Elinor Sandoval (RYLEY) (Signed 02-Apr-2020 07:59) Authored: Quick Triage, Risk Screens, Pain, Arrival, ABCD, Travel History, Chart Review, Scores, Past Medical History Last Updated: 02-Apr-2020 07:59 by Elinor Sandoval (RYLEY) Normal [facility] CBC AND DIFFERENTIALon 12-26 Basophils (Bld) [#/Vol] 0.00 10*3/uL Normal 0.00 - 0.1 0 [facility] Comment on above: Performed By: #### C BCDF ####[address] [address] Basophils/100 WBC (Bld) 0.5 % Normal 0.0 - 2.0 [facility] Comment on above: Performed By: #### C BCDF ####[address] [address] Eosinophils (Bld) [#/Vol] 0.20 10*3/uL Normal 0.00 - 0.40 [facility] Comment on above: Performed By: #### C BCDF ####[address] [address] Eosinophils/100 WBC (Bld) 2.6 % Normal 0.0 - 6.0 [facility] Comment on above: Performed By: #### C BCDF ####[address] [address] Erythrocyte distribution width (RBC) [Ratio] 14.2 % Normal 11.5 - 14.5 [facility] Comment on above: Performed By: #### C BCDF ####[address] [address] Hematocrit (Bld) [Volume fraction] 42.7 % Normal 41.0 - 52.0 [facility] Comment on above: Performed By: #### C BCDF ####[address] [address] Hemoglobin (Bld) [Mass/Vol] 14.0 g/dL Normal 13.5 - 17.5 [facility] Comment on above: Performed By: #### C BCDF ####[address] [address] Lymphocytes (Bld) [#/Vol] 2.20 10*3/uL Normal 0.80 - 3.00 [facility] Comment on above: Performed By: #### C BCDF ####[address] [address] Lymphocytes/100 WBC (Bld) 31.7 % Normal 13.0 - 44.0 [facility] Comment on above: Performed By: #### C BCDF ####[address] [address] MCHC (RBC) [Mass/Vol] 32.8 g/dL Normal 32.0 - 36.0 [facility] Comment on above: Performed By: #### C BCDF ####[address] [address] MCV (RBC) [Entitic vol] 86 fL Normal 80 - 100 [facility] Comment on above: Performed By: #### C BCDF ####[address] [address] Monocytes (Bld) [#/Vol] 0.60 10*3/uL Normal 0.05 - 0.8 0 [facility] Comment on above: Performed By: #### C BCDF ####[address] [address] Monocytes/100 WBC (Bld) 8.5 % Normal 2.0 - 10.0 [facility] Comment on above: Performed By: #### C BCDF ####[address] [address] Neutrophils (Bld) [#/Vol] 4.00 10*3/uL Normal 1.60 - 5.50 [facility] Comment on above: Result Comment: Perc ent differential counts (%) should be interpreted in the context of the absolute cell counts (cells/L). Performed By: #### C BCDF ####[address] [address] Neutrophils/100 WBC (Bld) 56.7 % Normal 40.0 - 80.0 [facility] Comment on above: Performed By: #### C BCDF ####[address] [address] Nucleated RBC/100 WBC (Bld) [Ratio] 0.3 /100 WBC Normal [facility] Comment on above: Performed By: #### C BCDF ####[address] [address] Platelets (Bld) [#/Vol] 201 10*3/uL Normal 150 - 450 [facility] Comment on above: Performed By: #### C BCDF ####[address] [address] RBC (Bld) [#/Vol] 4.97 x10E12/L Normal 4.50 - 5.90 [facility] Comment on above: Performed By: #### C BCDF ####[address] [address] WBC (Bld) [#/Vol] 7.0 10*3/uL Normal 4.4 - 11.3 [facility] Comment on above: Performed By: #### C BCDF ####[place] [id number] COMPREHENSIVE PANELon 2019 Albumin [Mass/Vol] 3.7 g/dL Normal 3.4 - 5.0 [facility] Comment on above: Performed By: #### C MP #### [address] [address] ALP [Catalytic activity/Vol] 63 U/L Normal 33 - 136 [facility] Comment on above: Performed By: #### C MP #### [address] [address] ALT [Catalytic activity/Vol] 21 U/L Normal 10 - 52 [facility] Comment on above: Result Comment: Carie ents treated with Sulfasalazine may generate falsely decreased results for ALT. Performed By: #### C MP #### [address] [address] Anion gap [Moles/Vol] 9 mmol/L Low 10 - 20 [facility] Comment on above: Performed By: #### C MP #### [address] [address] AST [Catalytic activity/Vol] 14 U/L Normal 9 - 39 [facility] Comment on above: Performed By: #### C MP #### [address] [address] Bilirubin [Mass/Vol] 0.5 mg/dL Normal 0.0 - 1.2 [facility] Comment on above: Performed By: #### C MP #### [address] [address] Calcium [Mass/Vol] 8.8 mg/dL Normal 8.6 - 10.3 [facility] Comment on above: Performed By: #### C MP #### [address] [address] Chloride [Moles/Vol] 101 mmol/L Normal 98 - 107 [facility] Comment on above: Performed By: #### C MP #### [address] [address] Creatinine [Mass/Vol] 0.98 mg/dL Normal 0.50 - 1.30 [facility] Comment on above: Performed By: #### C MP #### [address] [address] GFR- AM. >60 Normal >60 [facility] Comment on above: Result Comment: CALC ULATIONS OF ESTIMATED GFR ARE PERFORMED USING THE MDRD STUDY EQUATION FOR THE IDMS-TRACEABLE CREATININE METHODS. CLIN CHEM 2007;53:766-72 Performed By: #### C MP #### [address] [address] GFR-NON AM. >60 Normal >60 [facility] Comment on above: Performed By: #### C MP #### [address] [address] Glucose [Mass/Vol] 255 mg/dL High 74 - 99 [facility] Comment on above: Performed By: #### C MP #### [address] [address] HCO3 (Bld) [Moles/Vol] 30 mmol/L Normal 21 - 32 [facility] Comment on above: Performed By: #### C MP #### [address] [address] Potassium [Moles/Vol] 4.6 mmol/L Normal 3.5 - 5.3 [facility] Comment on above: Performed By: #### C MP #### [address] [address] Protein [Mass/Vol] 6.4 g/dL Normal 6.4 - 8.2 [facility] Comment on above: Performed By: #### C MP #### [address] [address] Sodium [Moles/Vol] 135 mmol/L Low 136 - 145 [facility] Comment on above: Performed By: #### C MP #### [address] [address] Urea nitrogen [Mass/Vol] 32 mg/dL High 6 - 23 [facility] Comment on above: Performed By: #### C MP #### [address] [address] HEMOGLOBIN A1Con 12-27-2019 HbA1c (Bld) [Mass fraction] 212 MG/DL Normal [facility] Comment on above: Performed By: #### H BA1E ####[address] [address] HbA1c (Bld) [Mass fraction] 9.0 % Normal [facility] Comment on above: Result Comment: Diag nosis of Diabetes-Adults Non-Diabetic: < or = 5.6% Increased risk for developing diabetes: 5.7-6.4% Diagnostic of diabetes: > or = 6.5% . Monitoring of Diabetes Age (y) Therapeutic Goal (%) Adults: >18 <7.0 Pediatrics: 13-18 <7.5 7-12 <8.0 0- 6 7.5-8.5 [employer]. Diabetes Care 33(S1), Jul 2009. Performed By: #### H BA1E ####[address] [address] LIPID PANEL (CORONARY RISK 2 )on 12-27-2019 Cholesterol [Mass/Vol] 133 mg/dL Normal 0 - 199 [facility] Comment on above: Result Comment: . AGE DESIRABLE BORDERLINE HIGH HIGH 0-19 Y 0 - 169 170 - 199 >/= 200 20-24 Y 0 - 189 190 - 224 >/= 225 >24 Y 0 - 199 200 - 239 >/= 240 All ranges are based on fasting samples. Specific therapeutic targets will vary based on patient-specific cardiac risk. . Pediatric guidelines reference:Pediatrics 2011, 128(S5). Adult guidelines reference: NCEP ATPIII Guidelines, SONY 2001, 258:2486-97 . Venipuncture immediately after or during the administration of Metamizole may lead to falsely low results. Testing should be performed immediately prior to Metamizole dosing. Performed By: #### L IPID #### [address] [address] Cholesterol in HDL [Mass/Vol] 52.0 mg/dL Normal [facility] Comment on above: Result Comment: . AGE VERY LOW LOW NORMAL HIGH 0-19 Y < 35 < 40 40-45 ---- 20-24 Y ---- < 40 >45 ---- >24 Y ---- < 40 40-60 >60 . Performed By: #### L IPID #### [address] [address] Cholesterol in LDL [Mass/Vol] 70 mg/dL Normal 0 - 99 [facility] Comment on above: Result Comment: . NEAR BORD AGE DESIRABLE OPTIMAL HIGH HIGH VERY HIGH 0-19 Y 0 - 109 --- 110-129 >/= 130 ---- 20-24 Y 0 - 119 --- 120-159 >/= 160 ---- >24 Y 0 - 99 100-129 130-159 160-189 >/=190 . Performed By: #### L IPID #### [address] [address] Cholesterol in VLDL [Mass/Vol] 11 mg/dL Normal 0 - 40 [facility] Comment on above: Performed By: #### L IPID #### [address] [address] Cholesterol.total/Princess sterol in HDL [Mass ratio] 2.6 {ratio} Normal [facility] Comment on above: Result Comment: REF VALUES DESIRABLE < 3.4 HIGH RISK > 5.0 Performed By: #### L IPID #### [address] [address] Triglyceride [Mass/Vol] 56 mg/dL Normal 0 - 149 [facility] Comment on above: Result Comment: . AGE DESIRABLE BORDERLINE HIGH HIGH VERY HIGH 0 D-90 D 19 - 174 ---- ---- ---- 91 D- 9 Y 0 - 74 75 - 99 >/= 100 ---- 10-19 Y 0 - 89 90 - 129 >/= 130 ---- 20-24 Y 0 - 114 115 - 149 >/= 150 ---- >24 Y 0 - 149 150 - 199 200- 499 >/= 500 . Venipuncture immediately after or during the administration of Metamizole may lead to falsely low results. Testing should be performed immediately prior to Metamizole dosing. Performed By: #### L IPID #### [address] [address] THYROXINE,FREEon 12-27-2019 THYROXINE,FREE 1.05 ng/dL Normal 0.61 - 1.12 [facility] Comment on above: Result Comment: Thyr oxine Free testing is performed using different testing methodology at [facility] than at other [facility]. Direct result comparisons should only be made within the same method. . Biotin can cause falsely elevated free T4 results. Patients taking a Biotin dose of up to 10 mg/day should refrain from taking Biotin for 24 hours before sample collection. Patient taking a Biotin dose of >10 mg/day should consult with their physician or the laboratory before the blood draw. Performed By: #### T 4FRE ####[address] [address] TSHon 12-27-2019 TSH Qn 2.72 m[IU]/L Normal 0.44 - 3.98 [facility] Comment on above: Result Comment: TSH testing is performed using different testing methodology at [facility] than at other [facility]. Direct result comparisons should only be made within the same method. Performed By: #### T SH2 ####[address] [address] BASIC METABOLIC PANELon 12-2 Anion gap [Moles/Vol] 10 mmol/L Normal 10 - 20 [facility] Comment on above: Performed By: #### B MP #### [address] [address] Calcium [Mass/Vol] 8.5 mg/dL Low 8.6 - 10.3 [facility] Comment on above: Performed By: #### B MP #### [address] [address] Chloride [Moles/Vol] 103 mmol/L Normal 98 - 107 [facility] Comment on above: Performed By: #### B MP #### [address] [address] Creatinine [Mass/Vol] 0.94 mg/dL Normal 0.50 - 1.30 [facility] Comment on above: Performed By: #### B MP #### [address] [address] GFR- AM. >60 Normal >60 [facility] Comment on above: Result Comment: CALC ULATIONS OF ESTIMATED GFR ARE PERFORMED USING THE MDRD STUDY EQUATION FOR THE IDMS-TRACEABLE CREATININE METHODS. CLIN CHEM 2007;53:766-72 Performed By: #### B MP #### [place] [id number] GFR-NON AM. >60 Normal >60 [facility] Comment on above: Performed By: #### B MP #### [address] [address] Glucose [Mass/Vol] 338 mg/dL High 74 - 99 [facility] Comment on above: Performed By: #### B MP #### [address] [address] HCO3 (Bld) [Moles/Vol] 25 mmol/L Normal 21 - 32 [facility] Comment on above: Performed By: #### B MP #### [address] [address] Potassium [Moles/Vol] 4.4 mmol/L Normal 3.5 - 5.3 [facility] Comment on above: Performed By: #### B MP #### [address] [address] Sodium [Moles/Vol] 134 mmol/L Low 136 - 145 [facility] Comment on above: Performed By: #### B MP #### [address] [address] Urea nitrogen [Mass/Vol] 24 mg/dL High 6 - 23 [facility] Comment on above: Performed By: #### B MP #### [address] [address] CBC AND DIFFERENTIALon 07-08 Basophils (Bld) [#/Vol] 0.00 10*3/uL Normal 0.00 - 0.1 0 [facility] Comment on above: Performed By: #### C BCDF #### [address] [address] Basophils/100 WBC (Bld) 0.5 % Normal 0.0 - 2.0 [facility] Comment on above: Performed By: #### C BCDF #### [address] [address] Eosinophils (Bld) [#/Vol] 0.20 10*3/uL Normal 0.00 - 0.40 [facility] Comment on above: Performed By: #### C BCDF #### [address] [address] Eosinophils/100 WBC (Bld) 2.8 % Normal 0.0 - 6.0 [facility] Comment on above: Performed By: #### C BCDF #### [address] [address] Erythrocyte distribution width (RBC) [Ratio] 13.9 % Normal 11.5 - 14.5 [facility] Comment on above: Performed By: #### C BCDF #### [address] [address] Hematocrit (Bld) [Volume fraction] 38.1 % Low 41.0 - 52.0 [facility] Comment on above: Performed By: #### C BCDF #### [address] [address] Hemoglobin (Bld) [Mass/Vol] 12.6 g/dL Low 13.5 - 17.5 [facility] Comment on above: Performed By: #### C BCDF #### [address] [address] Lymphocytes (Bld) [#/Vol] 1.50 10*3/uL Normal 0.80 - 3.00 [facility] Comment on above: Performed By: #### C BCDF #### [address] [address] Lymphocytes/100 WBC (Bld) 24.1 % Normal 13.0 - 44.0 [facility] Comment on above: Performed By: #### C BCDF #### [address] [address] MCHC (RBC) [Mass/Vol] 33.1 g/dL Normal 32.0 - 36.0 [facility] Comment on above: Performed By: #### C BCDF #### [address] [address] MCV (RBC) [Entitic vol] 84 fL Normal 80 - 100 [facility] Comment on above: Performed By: #### C BCDF #### [address] [address] Monocytes (Bld) [#/Vol] 0.50 10*3/uL Normal 0.05 - 0.8 0 [facility] Comment on above: Performed By: #### C BCDF #### [address] [address] Monocytes/100 WBC (Bld) 8.2 % Normal 2.0 - 10.0 [facility] Comment on above: Performed By: #### C BCDF #### [address] [address] Neutrophils (Bld) [#/Vol] 4.00 10*3/uL Normal 1.60 - 5.50 [facility] Comment on above: Performed By: #### C BCDF #### [address] [address] Neutrophils/100 WBC (Bld) 64.4 % Normal 40.0 - 80.0 [facility] Comment on above: Performed By: #### C BCDF #### [address] [address] Platelets (Bld) [#/Vol] 188 10*3/uL Normal 150 - 450 [facility] Comment on above: Performed By: #### C BCDF #### [address] [address] RBC (Bld) [#/Vol] 4.56 x10E12/L Normal 4.50 - 5.90 [facility] Comment on above: Performed By: #### C BCDF #### [address] [address] WBC (Bld) [#/Vol] 6.3 10*3/uL Normal 4.4 - 11.3 [facility] Comment on above: Performed By: #### C BCDF #### [address] [address] CHEST 2 VIEW PA AND LATon CHEST 2 VIEW PA AND LAT Patient Name: ANDREW ARNOLD STUDY: CHEST 2 VIEW PA AND LAT; 07/08/2019 1:45 am INDICATION: Chest Pain. COMPARISON: 11/14/2014 ACCESSION NUMBER(S): [id number] ORDERING CLINICIAN: RANJAN CASTRO FINDINGS: Elevation right hemidiaphragm Cardiomediastinal silhouette with ectatic thoracic aorta vascular calcifications Calcified granuloma left lower lung No segmental consolidation, no large pleural effusion or pneumothorax Apical superimposition of structures. CABG surgery EKG leads are present. IMPRESSION: Cardiomediastinal silhouette/ectatic thoracic aorta. Electronically signed by: ZEFERINO GARY [facility] RADIOLOGIST Normal [facility] Provider Note - ED v2on 06-11 Provider Note - ED v2 Provider Note - ED v2: Chart Review: ED NOTES ED NOTES: ====HPI==== Patient reports that he's been having an improving cough over the past 3-4 weeks. He also states that he's been having a sense of doom or dread. He states that he'll also have hot flashes. He denies seeing his family doctor for these episodes. He denies any chest pain or shortness of breath or fevers or chills but states that with the persistent cough he has concern he could have developed a pneumonia and therefore comes in for evaluation Character: Severity: Mild to moderate Exacerbated by: Nothing Improved by: Nothing Recently seen by: Denies ====Review of Systems==== 10 point system review is negative except for those specifically mentioned in history of present illness ====Physical Exam==== Constitutional/Genera l: Alert and oriented x3, well appearing, nontoxic, and in NAD. Head: Normocephalic and atraumatic. Eyes: PERRL, EOMI, conjunctive normal, sclera nonicteric, subconjunctival layer is pink. Mouth: Oropharynx clear, handling secretions, no trismus, no asymmetry of the posterior oropharynx or uvular edema there is cobblestoning in the posterior pharynx consistent with sinus drainage Nose: Nasal mucosa is hyperemic Neck: Supple, full ROM, non tender to palpation in the midline, no stridor, no crepitus, no meningeal signs. Trachea at midline. No thyromegaly Respiratory: Lungs clear to auscultation bilaterally, no wheezes, rales, or rhonchi, not in respiratory distress. Cardiovascular: Regular rate, regular rhythm, no murmurs, gallops, or rubs, 2+ distal pulses. Chest: normal chest wall movement no bony deformity or crepitance GI: Abdomen soft, nontender, nondistended, + BS, no organomegaly, no palpable masses, no rebound, guarding, or rigidity. Musculoskeletal: Moves all extremities x4, warm and well perfused, no clubbing, cyanosis, or edema, cap refill <3 seconds. No asymmetric edema no pitting edema negative Homans sign bilaterally Integument: Skin warm and dry, no rashes. Neurologic: GCS 15, no focal deficits, symmetric strength 5/5 in the upper and lower extremities bilaterally. Psychiatric: Anxious affect. No homicidal or suicidal ideations ====ED Course and Medical Decision Making==== Imaging: Chest x-ray shows no acute infiltrate pneumothorax or pleural effusion EKG: EKG shows sinus rhythm at a rate of 70 with right bundle branch block pattern. Concurrent ST segment changes associated with the block but no acute current of injury change or dysrhythmia. QTC is slightly prolonged at 503 GA interval is 182 Labs: Labs showed hyperglycemia but otherwise no clinically significant changes Patient arrived to the ER in no acute distress. History and exam was most consistent with anxiety as a cause of his symptoms. However as he has a significant past medical history workup will be obtained. Workup found no clinically significant findings and on reevaluation patient is resting comfortably and therefore we discharged home with outpatient follow-up Portions of this note were dictated by speech recognition. An attempt at proof reading was made to minimize errors. Minor errors in ncaa compliance internship may be present. Please call if questions.. HISTORY OF PRESENTING ILLNESS ANDREW is a 74 year old Male and was seen by me at 08-Jul-2019 00:50 for a chief complaint of anxiety . Triage Information: Most recent Vital Sign Value Date Temp (F): 97 07-08-2019 00:58 Temp (C): 36.1 07-08-2019 00:58 Heart Rate (beats/min): 88 07-08-2019 00:58 Respirations (breaths/min): 16 07-08-2019 00:58 SpO2 (%): 94 07-08-2019 00:58 BP Systolic (mm Hg): 199 07-08-2019 00:58 BP Diastolic (mm Hg): 96 07-08-2019 00:58 PAST MEDICAL HISTORY ATTESTATION: I have reviewed and confirmed nurse's/medic's notes for patient's medications, allergies, medical history, and surgical history ALLERGIES/INTOLERANCE S: No Known Allergies HEALTH HISTORY: No documented data. OUTPATIENT MEDICATIONS: Home Medications Review Status for Reconciliation: N/A Med Status: N/A No documented data. SIGNIFICANT EVENTS: No documented data. CLINICAL IMPRESSION Diagnosis/Annotation: ED Dx Name:Anxiety Code:F41.9 Dispostion: discharged Type: home ATTESTATION CRITICAL CARE TIME Is this a critically ill patient: no Electronic Signatures: Ranjan Castro () (Signed 08-Jul-2019 02:41) Authored: Provider Note - ED v2 Last Updated: 08-Jul-2019 02:41 by Ranjan Castro () References: 1. Data Referenced From Triage - ED 08-Jul-2019 00:58 [facility] Risk Screen - Adult Emergenc yon 07-08-2019 Risk Screen - Adult Emergency Preferred Language: Preferred Language: Preferred Language for Discussing Health Care (patient/designee)Eng lizet Advanced Directives: Advance Directive/DNRno Family Violence Adult: Abuse Screen: Are you or have you been threatened or abused physically, emotionally, or sexually by anyoneno Learning Assessment (Patient): Learning Assessment (Patient): Patient is Able to be Assessed for Learningyes Factors Influencing Readiness to Learninterest in learning; motivation to learn Factors that Impact Ability to Learnnone Devices/Methods Used to Communicatenone Learning Preferencesverbal instruction; written material Cultural Considerationsnone Developmental Considerationsnone Latter Day Considerationsnone Other Learnerssignificant other Learning Assessment (Other Learner): Learning Assessment (Other Learner): Other learner availableyes... Learnersignificant other Factors Influencing Readiness to Learninterest in learning Factors that Impact Ability to Learnnone Devices/Methods Used to Communicatenone Learning Preferencesverbal instruction, written material Cultural Considerationsnone Developmental Considerationsnone Latter Day Considerationsnone Pressure Injury/TB/Substance: Pressure Injury: Pressure Injury Present on Admissionno Do you have a coughyes... Has your cough lasted longer than 2 weeksno Substance Use Current or Former Historynever: Cigarette/Tobacco, e-Cigarette/Vaping, Alcohol, Street Drugs Admission Risk Screen: Significant IndicatorsComplete CAGE: CAGE: Is this an injured patient [place] a [place] [place]/[place]/[facility]/[place]): no Electronic Signatures: Amber Gregorio (RYLEY) (Signed 08-Jul-2019 01:09) Authored: Preferred Language, Advanced Directives, Family Violence Adult, Learning Assessment (Patient), Learning Assessment (Other Learner), Pressure Injury/TB/Substance, CAGE Last Updated: 08-Jul-2019 01:09 by Amber Gregorio (RYLEY) Normal [facility] TROPONIN Ion 07-08-2019 Troponin I.cardiac [Mass/Vol] 0.03 ng/mL Normal 0.00 - 0.03 [facility] Comment on above: Result Comment: LESS THAN 0.04 NG/ML: NEGATIVE REPEAT TESTING IN THREE TO SIX HOURS IF CLINICALLY INDICATED. 0.04 - 0.5 NG/ML: CONSISTENT WITH POSSIBLE CARDIAC DAMAGE AND POSSIBLE INCREASED CLINICAL RISK. SERIAL MEASUREMENTS MAY HELP ASSESS EXTENT OF MYOCARDIAL DAMAGE. >0.5 NG/ML: CONSISTENT WITH CARDIAC DAMAGE, INCREASED CLINICAL RISK AND MYOCARDIAL INFARCTION. SERIAL MEASUREMENTS MAY HELP ASSESS EXTENT OF MYOCARDIAL DAMAGE. . Note: Troponin I testing is performed using different testing methodology at [facility] than at other [facility], [facility]. Direct result comparisons should only be made within the same method. Performed By: #### T ROP2 #### [facility] [address] [place] [address] TSHon 07-08-2019 TSH Qn 2.28 m[IU]/L Normal 0.44 - 3.98 [facility] Comment on above: Result Comment: TSH testing is performed using different testing methodology at [facility] than at other [facility]. Direct result comparisons should only be made within the same method. Performed By: #### T SH2 #### [facility] [address] [place] [address] Triage - EDon 07-08-2019 Triage - ED Chart Review: CHIEF COMPLAINT ANDREW ARNOLD is a Male patient with a chief complaint of anxiety. Triage Date/Time: 08-Jul-2019 00:58 Pain Rating (0-10): 0 = None Vital Signs: Temperature: 97.0F ( 36.1C) taken oral Blood Pressure: 199/96 Mean: Heart Rate: 88 Respiratory Rate: 16 Pulse Oximetry: 94% on room air, no respiratory support. Height: 5 feet 7.00 inches. 170.1 CM Weight: 225.0 pounds. Calculated 102.0 kg. (stated) Calculated BMI (kg/m2): 35.252 Calculated BSA (m2) 2.20 Rhonda Coma Scale: Best Eye Response: (E4) spontaneous Best Motor Response: (M6) obeys commands Best Verbal Response: (V5) oriented Rhonda Score: 15 Travel outside of [place]: yes Allergies: no Mask applied: no Patient has homicidal thoughts: no INDIRA: 3 Risk Screens Suicide Risk Screen In the Past Month: Have you wished you were or wished you could go to sleep and not wake up no In the Past Month: Have you had any actual thoughts of killing yourself no In Your Lifetime: Have you ever done anything, started to do anything, or prepared to do anything to end your life no Monk Fall Scale Screening Has the patient fallen before (or is the patient in the ED as a result of a fall) has not had a fall Does the patient have an impaired gait does not have impaired gait Is the patient cognitively impaired not cognitively impaired Interventions: Monk Fall Interventions: *patient oriented to surroundings and call system, * patient/family falls education completed and documented, *patients fall status communicated during bedside handoff, *whiteboard updated, *mode of toileting discussed with patient, *bed in low position with brakes locked, *call light in reach, * non-skid footwear PAIN Pain Scale Used: ISAI Pain Rating (0-10): 0 = None Past Medical History: Past Medical History Reviewedyes Electronic Signatures: Amber Gregorio (RN) (Signed 08-Jul-2019 01:53) Authored: Triage, Past Medical History Last Updated: 08-Jul-2019 01:53 by Amber Gregorio (RN) Normal [facility] CMPon 02-20-2019 Albumin [Mass/Vol] 3.8 g/dL Normal 3.4-5.0 [facility] Comment on above: Performed By: #### 2 [id number] #### [facility] [address] [place] [address] 15064 Albumin/Globulin [Mass ratio] 1.4 {ratio} Normal 1.1-1.9 [facility] Comment on above: Performed By: #### 2 [id number] #### [facility] [address] [place] [address] 38239 Alk Phos 69 Int._Unit/L Normal 33-136 [facility] Comment on above: Performed By: #### 2 [id number] #### [facility] [address] [place] [address] 83496 ALT [Catalytic activity/Vol] 25 Int._Unit/L Normal 10-52 [facility] Comment on above: Performed By: #### 2 [id number] #### [facility] [address] [place] [address] 86529 Anion gap [Moles/Vol] 9 mmol/L Low 10-20 [facility] Comment on above: Performed By: #### 2 [id number] #### [facility] [address] [place] [address] 39103 AST [Catalytic activity/Vol] 22 Int._Unit/L Normal 9-39 [facility] Comment on above: Performed By: #### 2 [id number] #### [facility] [address] [place] [address] 08723 Bili Total 0.53 mg/dL Normal 0.00-1.20 [facility] Comment on above: Performed By: #### 2 [id number] #### [facility] [address] [place] [address] 77142 Calcium [Mass/Vol] 9.2 mg/dL Normal 8.6-10.3 [facility] Comment on above: Performed By: #### 2 [id number] #### [facility] [address] [place] [address] 78048 Chloride [Moles/Vol] 106 mmol/L Normal 98-107 [facility] Comment on above: Performed By: #### 2 [id number] #### [facility] [address] [place] [address] 75662 CO2 [Moles/Vol] 29.0 mmol/L Normal 21.0-32.0 [facility] Comment on above: Performed By: #### 2 [id number] #### [facility] [address] [place] [address] 93815 Creatinine [Mass/Vol] 1.0 mg/dL Normal 0.5-1.3 [facility] Comment on above: Performed By: #### 2 [id number] #### [facility] [address] [place] [address] 50709 Globulin (S) [Mass/Vol] 3.0 g/dL Normal 2.0-4.0 [facility] Comment on above: Performed By: #### 2 [id number] #### [facility] [address] [place] [address] 85027 Glucose [Mass/Vol] 103 mg/dL High 70-99 [facility] Comment on above: Performed By: #### 2 [id number] #### [facility] [address] [place] [address] 65761 Potassium [Moles/Vol] 4.1 mmol/L Normal 3.5-5.3 [facility] Comment on above: Performed By: #### 2 [id number] #### [facility] [employer] [address] [place] [address] 76013 Protein [Mass/Vol] 6.6 g/dL Normal 6.4-8.2 [facility] Comment on above: Performed By: #### 2 [id number] #### [facility] [address] [place] [address] 71567 Sodium [Moles/Vol] 139 mmol/L Normal 136-145 [facility] Comment on above: Performed By: #### 2 [id number] #### [facility] [address] [place] [address] 99118 Urea nitrogen [Mass/Vol] 25 mg/dL High 6-23 [facility] Comment on above: Performed By: #### 2 [id number] #### [facility] [employer] [place] [address] Urea nitrogen/Creatinine [Mass ratio] 25.0 ratio Normal 5.4-30.0 [facility] Comment on above: Performed By: #### 2 [id number] #### [facility] [employer] [facility] [place] [address] [id number] 02-20-2019 HbA1c (Bld) [Mass fraction] 8.8 % High 4.0-6.3 [facility] Comment on above: Performed By: #### 2 [id number] #### [facility] [address] [place] [address] 35567 eGFRon 02-20-2019 GFR/1.73 sq M predicted among non-blacks MDRD (S/P/Bld) [Vol rate/Area] mL/min/{1.73_m2} Normal [facility] Comment on above: Order Comment: Order added by Discern Expert. Performed By: #### 2 [id number] #### [facility] [address] [place] [address] 36570 POC Glucoseon 12-26-2018 Glucose mass conc 143 mg/dL High 65 - 99 mg/dL [facility] Interpretation and review of laboratory results Abnormal [facility] Glucose mass conc 192 mg/dL High 65 - 99 mg/dL [facility] Interpretation and review of laboratory results Abnormal [facility] XR WRIST RIGHT 3+ VIEWS (STA NDARD)on 12-15-2018 XR WRIST RIGHT 3+ VIEWS (STANDARD) EXAMINATION: XR WRIST RIGHT 3+ VIEWS (STANDARD) HISTORY: ORDERING SYSTEM PROVIDED HISTORY: Wrist pain, chronic, right, TECHNOLOGIST PROVIDED HISTORY: Reason for exam: right wrist band Illness/Other Cancer History: u Surgery, RadiationHistory: cabg Encounter Type: Initial Additional signs and symptoms: on going right wrist pain ORDERING SYSTEM PROVIDED DIAGNOSIS CODES: M25.531 Wrist pain, chronic, right G89.29 Wrist pain, chronic, right COMPARISON: None FINDINGS: Three views of the right wrist were performed. There is no evidence of fracture, dislocation or destructive osseous lesions. Joint space narrowing is noted involving the carpometacarpal joints and the radiocarpal joint space. Soft tissue edema is suggested. IMPRESSION: 1. No acute osseous injury. 2. Degenerative changes. 3. Soft tissue edema. Workstation ID: [id number] Dictated by: ALINE DARNELL on TueDec 15, 2018 10:58:17 AM EDT Transcribed by: ALINE DARNELL on TueDec 15, 2018 10:58:17 AM EDT Finalized by: ALINE DARNELL on TueDec 15, 2018 10:58:17 AM EDT [facility] Comment on above: Order Comment: Reaso n for exam?:right wrist band Injury/Trauma or Illness?:Illness/Other How long have you had these symptoms (acute/chronic)?:Unknown History of cancer?:u Surgeries, chemotherapy, or radiation?:cabg Type of Exam?:Initial Additional signs and symptoms?:on going right wrist pain XR Wrist Right 3+ Views (Sta ndard)on 12-15-2018 1. No acute osseous injury. 2. Degenerative changes. 3. Soft tissue edema. Workstation ID: [id number] [facility] EXAMINATION: XR WRIS T RIGHT 3+ VIEWS (STANDARD) HISTORY: ORDERING SYSTEM PROVIDED HISTORY: Wrist pain, chronic, right, TECHNOLOGIST PROVIDED HISTORY: Reason for exam: right wrist band Illness/Other Cancer History: u Surgery, RadiationHistory: cabg Encounter Type: Initial Additional signs and symptoms: on going right wrist pain ORDERING SYSTEM PROVIDED DIAGNOSIS CODES: M25.531 Wrist pain, chronic, right G89.29 Wrist pain, chronic, right COMPARISON: None FINDINGS: Three views of the right wrist were performed. There is no evidence of fracture, dislocation or destructive osseous lesions. Joint space narrowing is noted involving the carpometacarpal joints and the radiocarpal joint space. Soft tissue edema is suggested. [facility], Rad In [employer] - 12/15/2018 11:00 AM EDT EXAMINATION: XR WRIST RIGHT 3+ VIEWS (STANDARD) HISTORY: ORDERING SYSTEM PROVIDED HISTORY: Wrist pain, chronic, right, TECHNOLOGIST PROVIDED HISTORY: Reason for exam: right wrist band Illness/Other Cancer History: u Surgery, RadiationHistory: cabg Encounter Type: Initial Additional signs and symptoms: on going right wrist pain ORDERING SYSTEM PROVIDED DIAGNOSIS CODES: M25.531 Wrist pain, chronic, right G89.29 Wrist pain, chronic, right COMPARISON: None FINDINGS: Three views of the right wrist were performed. There is no evidence of fracture, dislocation or destructive osseous lesions. Joint space narrowing is noted involving the carpometacarpal joints and the radiocarpal joint space. Soft tissue edema is suggested. IMPRESSION: 1. No acute osseous injury. 2. Degenerative changes. 3. Soft tissue edema. Workstation ID: [id number] [facility] 12-12-2018 Nuclear Report Patient: CLAYTON Mccollum Med Rec#: [id number] (Age): 1945(73y) Height: Study Date: 12/12/2018 Weight: Room#: BSA: Type: Outpatient Loc: Sex: M Indications: -Diagnosis of CAD - Checklists: -Patient verbally identified self -Consent signed and placed in chart -Procedure verified and explained to patient -Medication Reconciliation completed. -Discharge instructions given Nuclear Cardiology Conclusion: Abnormal exercise myocardial perfusion with Tc-99m tetrofosmin imaging. No convincing evidence of inducible ischemia identified. Overall intermediate-risk study based on SCAI criteria (1-3% predicted annual cardiac mortality). Moderate to large inferior, inferolateral and apical infarcts with related LV dysfunction. Moderate LV dilation. Global left ventricular systolic function was moderately reduced, with an EF of 40%. Stress ECG Conclusion: Non-diagnostic exercise stress ECG Non-diagnostic changes secondary to resting ST-T abnormalities. HR Response to stress: normal BP response to stress: normal The patient experienced no chest pain. The test was terminated due to fatigue. An adequate level of stress was achieved. Exercise Protocol: A Thurman treadmill score of 7 was achieved. Total Exercise Time The patient exercised for a total of 07:00 min using the Standard Dain exercise protocol, achieving stage 3 and a max METs of 8.3. A Thurman treadmill score of 7 was achieved. Exercise functional capacity was good. Resting ECG RBBB. Tolerated exercise well, denies CP with exertion. Baseline ECG: Normal sinus rhythm. RBBB. Q-waves consistent with prior myocardial infarction. Non-specific ST-T wave changes. Non-specific T wave changes. Stress ECG : ECG was non-diagnostic, secondary to abnormal baseline ECG. Hemodynamics REST STRESS RECOVERY SBP 175 mmHg 205 mmHg 205 mmHg DBP 77 mmHg 90 mmHg 90 mmHg HR 60 bpm 146 bpm 85 bpm %MPHR 100 % Imaging Protocol: This was a gated SPECT myocardial perfusion imaging study. A one day rest-stress imaging protocol was followed using Tc-99m tetrofosmin (PingThingsview) injected intravenously. For the rest portion of the study, 8.9 mCi of the radiopharmaceutical was administered at 12/12/2018 08:10:00. Rest imaging was performed at 09:10:00. For the stress portion of the study, 26.9 mCi was administered at 12/12/2018 09:48:00. Stress imaging was performed at 10:00:00. Perfusion Interpretation: The left ventricular cavity was moderately enlarged under post stress conditions. The left ventricular cavity was moderately enlarged under rest conditions. TID Ratio 1. There was a small, fixed defect in the apical anterior, apex segment(s). The extent of this perfusion defect was mild. There was a small, partially reversible defect in the basal inferolateral, apical lateral segment(s). The extent of this perfusion defect was mild to moderate. There was a medium, fixed defect in the basal inferior, mid inferior, apical inferior segment(s). The extent of this perfusion defect was mild to moderate. Wall Motion Interpretation: The patient's calculated post stress LVEF was 40%. Gated imaging under post-stress conditions demonstrated moderate hypokinesis of the basal anteroseptal, basal inferoseptal, basal inferior, mid anteroseptal, mid inferoseptal, mid inferior, apical septal, apical inferior segment(s); severe hypokinesis of the apical anterior, apex segment(s). Nuclear Doctor Interpreted Study and Electronically signed at 12/12/2018 15:06:04 by: Ernesto Gibbs MD, PI [facility] Interface, Rad In [facility] - 12/12/2018 3:25 PM EDT Nuclear Report Patient: CLAYTON Mccollum [facility] Rec#: [id number] (Age): 1945(73y) Height: Study Date: 12/12/2018 Weight: Room#: BSA: Type: Outpatient Loc: Sex: M Indications: -Diagnosis of CAD - Checklists: -Patient verbally identified self -Consent signed and placed in chart -Procedure verified and explained to patient -Medication Reconciliation completed. -Discharge instructions given Nuclear Cardiology Conclusion: Abnormal exercise myocardial perfusion with Tc-99m tetrofosmin imaging. No convincing evidence of inducible ischemia identified. Overall intermediate-risk study based on SCAI criteria (1-3% predicted annual cardiac mortality). Moderate to large inferior, inferolateral and apical infarcts with related LV dysfunction. Moderate LV dilation. Global left ventricular systolic function was moderately reduced, with an EF of 40%. Stress ECG Conclusion: Non-diagnostic exercise stress ECG Non-diagnostic changes secondary to resting ST-T abnormalities. HR Response to stress: normal BP response to stress: normal The patient experienced no chest pain. The test was terminated due to fatigue. An adequate level of stress was achieved. Exercise Protocol: A Thurman treadmill score of 7 was achieved. Total Exercise Time The patient exercised for a total of 07:00 min using the Standard Dain exercise protocol, achieving stage 3 and a max METs of 8.3. A Thurman treadmill score of 7 was achieved. Exercise functional capacity was good. Resting ECG RBBB. Tolerated exercise well, denies CP with exertion. Baseline ECG: Normal sinus rhythm. RBBB. Q-waves consistent with prior myocardial infarction. Non-specific ST-T wave changes. Non-specific T wave changes. Stress ECG : ECG was non-diagnostic, secondary to abnormal baseline ECG. Hemodynamics REST STRESS RECOVERY SBP 175 mmHg 205 mmHg 205 mmHg DBP 77 mmHg 90 mmHg 90 mmHg HR 60 bpm 146 bpm 85 bpm %MPHR 100 % Imaging Protocol: This was a gated SPECT myocardial perfusion imaging study. A one day rest-stress imaging protocol was followed using Tc-99m tetrofosmin (PingThingsview) injected intravenously. For the rest portion of the study, 8.9 mCi of the radiopharmaceutical was administered at 12/12/2018 08:10:00. Rest imaging was performed at 09:10:00. For the stress portion of the study, 26.9 mCi was administered at 12/12/2018 09:48:00. Stress imaging was performed at 10:00:00. Perfusion Interpretation: The left ventricular cavity was moderately enlarged under post stress conditions. The left ventricular cavity was moderately enlarged under rest conditions. TID Ratio 1. There was a small, fixed defect in the apical anterior, apex segment(s). The extent of this perfusion defect was mild. There was a small, partially reversible defect in the basal inferolateral, apical lateral segment(s). The extent of this perfusion defect was mild to moderate. There was a medium, fixed defect in the basal inferior, mid inferior, apical inferior segment(s). The extent of this perfusion defect was mild to moderate. Wall Motion Interpretation: The patient's calculated post stress LVEF was 40%. Gated imaging under post-stress conditions demonstrated moderate hypokinesis of the basal anteroseptal, basal inferoseptal, basal inferior, mid anteroseptal, mid inferoseptal, mid inferior, apical septal, apical inferior segment(s); severe hypokinesis of the apical anterior, apex segment(s). Nuclear Doctor Interpreted Study and Electronically signed at 12/12/2018 15:06:04 by: Ernesto Gibbs MD, RVPI [facility] ECHOCARDIOGRAM 2D COMPLETEon 12-08-2018 Transthoracic Echocardiogram Patient: CLAYTON Mccollum [facility] Rec#: [id number] (Age): 1945(73y) Height: 170.18(cm)/66(i Study Date: 12/08/2018 Weight: 93.9(kg)/207(lb Room#: BSA: [id number] Type: Loc: Sex: M Reading: Jennifer Cintron M.D. Referring: PRESTON HEALY PAUL Restaurant Supervisor: Irina Hooper RDCS, RVT History: Aortic Valve replacement. 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 Coronary artery disease. Diabetes. Hyperlipidemia Hypertension. Myocardial infarction. Prior echo. RBBB. S/P CABG. TIA. Study Quality The study quality is fair. Summary: Patient identity verified (pause and confirm). Current HP present on patient chart. Procedure explained and patient verified understanding. Consent obtained for procedure. Definity explained to patient. Patient verbalizes understanding and agrees to proceed. Definity 1.3ml/8.7ml normal sterile saline 1 ml total given IV over 30-60 seconds. Conclusions: Definity used to optimize endocardial imaging Severe concentric LVH. 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 Trace MR with no significant stenosis. S/P AVR with a 23mm Alfred-Peñaloza pericardial bioprosthetic valve. Aortic valve is well seated with appropriate gradients. Valve leaflets not well visualized. Trace regurgitation. Mild TR Mild enlargement of the tubular portion of the AAo measuring 4.3cm Findings Reason For Study: Aortic Valve Disorder. Chest pain. Left Ventricle: The left ventricular chamber size is normal. Severe concentric left ventricular hypertrophy is observed. There is normal left ventricular systolic function. Ventricular septal wall motion has a post-operative appearance. The diastolic filling pattern is indeterminate based on available data. The ejection fraction is calculated to be 60% using the Method of Disks. Left Atrium: The left atrium is severely dilated. Right Ventricle: The right ventricle is mild to moderately dilated. The right ventricular global systolic function is normal. Right Atrium: The right atrial cavity size is normal. Aortic Valve: The aortic valve peak velocity is 2.62 m/sec. The mean gradient of the aortic valve is 15 mmHg. The peak instantaneous gradient of the aortic valve is 27.46 mmHg. There is a trace of aortic regurgitation. A bio-prosthetic pericardial aortic valve is present. Mitral Valve: The mitral valve leaflets appear normal. There is moderate to severe mitral annular calcification. Moderate mitral leaflet calcification is visualized. There is no evidence of mitral stenosis. There is a trace of mitral regurgitation. Tricuspid Valve: The tricuspid valve leaflets are normal. There is no tricuspid stenosis. There is mild tricuspid regurgitation. The right ventricular systolic pressure is 29.9 mmHg. Pulmonic Valve: The pulmonic valve appears normal. There is no pulmonic stenosis. There is no evidence of pulmonic regurgitation. Pericardium: The pericardium appears normal. Aorta: There is mild dilatation of the ascending aorta. Venous: The inferior vena cava appears normal. HR 74 BP 162/82 Measurements Chambers 2D Name Value Normal Range IVSd (2D) 2.03 cm none LVPWd (2D) 1.93 cm none IVS:LVPW ratio (2D) 1.05 ratio none LVIDd (2D) 3.72 cm none LVIDs (2D) 2.57 cm none LVIDd (2D) index 1.81 cm/m2 none LVIDs (2D) index 1.25 cm/m2 none LV FS (2D) 30.91 % none LV FS (Teichholz) (2D) 30.9 % none LV FS (cube) (2D) 30.9 % none LV EF (2D) 60 % (60 - 100) EF Teichholz (2D) 59.4 % none Ao root diameter (2D) 3.5 cm none Aortic root diameter (2D) inde1.71 cm/m2 none Volumes/Mass Name Value Normal Range LA ESV SP 4CH (MOD) 123 ml none LA ESV SP 2CH (MOD) 158 ml none LA ESV BP (MOD) 141 ml none LA ESV BP (MOD) index 68.72 ml/m2 none LV EDV SP 4CH (MOD) 139 ml none LV ESV SP 4CH (MOD) 57.4 ml none EF SP 4CH (MOD) 58.71 % none LV EDV SP 2CH (MOD) 162 ml none LV ESV SP 2CH (MOD) 63.9 ml none EF SP 2CH (MOD) 60.56 % none LV EDV BP 155 ml none LV ESV BP 61.8 ml none BP EF (MOD) 60.13 % none LV EDV BP index 75.54 ml/m2 none LV ESV BP index 30.12 ml/m2 none LV mass (2D) 334.65 g none LV mass (2D) index 163.09 g/m2 none Diastolic/Systolic Function Name Value Normal Range MV E-wave Vmax 1.3 m/sec none MV deceleration time 349 msec none MV A-wave Vmax 0.6 m/sec none MV E:A ratio 2.16 ratio (1.1 - 1.5) LV E:e' septal ratio 23 ratio none LV E:e' lateral ratio 13.9 ratio none TAPSE 1.94 cm none Aortic Valve Name Value Normal Range AV Vmax 2.62 m/sec (1 - 1.7) AV VTI 69 cm none AV peak gradient 27.46 mmHg (Less Than 36) AV mean gradient 15 mmHg (Less Than 20) LVOT diameter 2 cm (1.7 - 2.5) LVOT Vmax 0.84 m/sec (0.7 - 1.1) LVOT VTI 24.3 cm none LVOT peak gradient 3 mmHg none LVOT mean gradient 1 mmHg none DOI (VTI) 0.35 ratio none DOI (Vmax) 0.32 ratio none SV LVOT 76.3 ml none CO LVOT 5.65 l/min none Cardiac index 2.75 l/min/m2 none ALINE (continuity Vmax) 1 cm2 none ALINE (continuity Vmax) index 0.49 cm2/m2 none ALINE (continuity VTI) 1.11 cm2 none ALINE (continuity VTI) index 0.54 cm2/m2 none AR PHT 322 msec none AR peak gradient 11 mmHg none Ascending Ao 4.3 cm none Mitral Valve Name Value Normal Range MV Vmax 1.52 m/sec (0.6 - 1.3) MV VTI 44 cm none MV peak gradient 9.24 mmHg none MV mean gradient 3 mmHg none MV PHT 85 msec none MR Vmax 4.18 m/sec none MR VTI 89.1 cm none MVA (PHT) 2.59 cm2 none MVA (continuity VTI) 1.73 cm2 none Tricuspid Valve Name Value Normal Range TR Vmax 2.34 m/sec none TR peak gradient 21.9 mmHg none RAP 8 mmHg none RVSP 29.9 mmHg none Pulmonic Valve/Qp:Qs Name Value Normal Range PV Vmax 0.88 m/sec (0.6 - 0.9) PV VTI 18.3 cm none PV peak gradient 3.12 mmHg none PV mean gradient 1 mmHg none Electronically Signed at 12/08/2018 10:51:17 by: Jennifer Cintron M.D. [facility] Interface, Rad In [facility] - 12/08/2018 10:53 AM EDT Transthoracic Echocardiogram Patient: CLAYTON Mccollum [facility] Rec#: [id number] (Age): 1945(73y) Height: 170.18(cm)/66(i Study Date: 12/08/2018 Weight: 93.9(kg)/207(lb Room#: BSA: [id number] Type: Loc: Sex: M Reading: Jennifer Cintron M.D. Referring: PRESTON HEALY PAUL Restaurant Supervisor: Irina Hooper RDCS, RVT History: Aortic Valve replacement. 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 Coronary artery disease. Diabetes. Hyperlipidemia Hypertension. Myocardial infarction. Prior echo. RBBB. S/P CABG. TIA. Study Quality The study quality is fair. Summary: Patient identity verified (pause and confirm). Current HP present on patient chart. Procedure explained and patient verified understanding. Consent obtained for procedure. Definity explained to patient. Patient verbalizes understanding and agrees to proceed. Definity 1.3ml/8.7ml normal sterile saline 1 ml total given IV over 30-60 seconds. Conclusions: Definity used to optimize endocardial imaging Severe concentric LVH. 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 Trace MR with no significant stenosis. S/P AVR with a 23mm Alfred-Peñaloza pericardial bioprosthetic valve. Aortic valve is well seated with appropriate gradients. Valve leaflets not well visualized. Trace regurgitation. Mild TR Mild enlargement of the tubular portion of the AAo measuring 4.3cm Findings Reason For Study: Aortic Valve Disorder. Chest pain. Left Ventricle: The left ventricular chamber size is normal. Severe concentric left ventricular hypertrophy is observed. There is normal left ventricular systolic function. Ventricular septal wall motion has a post-operative appearance. The diastolic filling pattern is indeterminate based on available data. The ejection fraction is calculated to be 60% using the Method of Disks. Left Atrium: The left atrium is severely dilated. Right Ventricle: The right ventricle is mild to moderately dilated. The right ventricular global systolic function is normal. Right Atrium: The right atrial cavity size is normal. Aortic Valve: The aortic valve peak velocity is 2.62 m/sec. The mean gradient of the aortic valve is 15 mmHg. The peak instantaneous gradient of the aortic valve is 27.46 mmHg. There is a trace of aortic regurgitation. A bio-prosthetic pericardial aortic valve is present. Mitral Valve: The mitral valve leaflets appear normal. There is moderate to severe mitral annular calcification. Moderate mitral leaflet calcification is visualized. There is no evidence of mitral stenosis. There is a trace of mitral regurgitation. Tricuspid Valve: The tricuspid valve leaflets are normal. There is no tricuspid stenosis. There is mild tricuspid regurgitation. The right ventricular systolic pressure is 29.9 mmHg. Pulmonic Valve: The pulmonic valve appears normal. There is no pulmonic stenosis. There is no evidence of pulmonic regurgitation. Pericardium: The pericardium appears normal. Aorta: There is mild dilatation of the ascending aorta. Venous: The inferior vena cava appears normal. HR 74 BP 162/82 Measurements Chambers 2D Name Value Normal Range IVSd (2D) 2.03 cm none LVPWd (2D) 1.93 cm none IVS:LVPW ratio (2D) 1.05 ratio none LVIDd (2D) 3.72 cm none LVIDs (2D) 2.57 cm none LVIDd (2D) index 1.81 cm/m2 none LVIDs (2D) index 1.25 cm/m2 none LV FS (2D) 30.91 % none LV FS (Teichholz) (2D) 30.9 % none LV FS (cube) (2D) 30.9 % none LV EF (2D) 60 % (60 - 100) EF Teichholz (2D) 59.4 % none Ao root diameter (2D) 3.5 cm none Aortic root diameter (2D) inde1.71 cm/m2 none Volumes/Mass Name Value Normal Range LA ESV SP 4CH (MOD) 123 ml none LA ESV SP 2CH (MOD) 158 ml none LA ESV BP (MOD) 141 ml none LA ESV BP (MOD) index 68.72 ml/m2 none LV EDV SP 4CH (MOD) 139 ml none LV ESV SP 4CH (MOD) 57.4 ml none EF SP 4CH (MOD) 58.71 % none LV EDV SP 2CH (MOD) 162 ml none LV ESV SP 2CH (MOD) 63.9 ml none EF SP 2CH (MOD) 60.56 % none LV EDV BP 155 ml none LV ESV BP 61.8 ml none BP EF (MOD) 60.13 % none LV EDV BP index 75.54 ml/m2 none LV ESV BP index 30.12 ml/m2 none LV mass (2D) 334.65 g none LV mass (2D) index 163.09 g/m2 none Diastolic/Systolic Function Name Value Normal Range MV E-wave Vmax 1.3 m/sec none MV deceleration time 349 msec none MV A-wave Vmax 0.6 m/sec none MV E:A ratio 2.16 ratio (1.1 - 1.5) LV E:e' septal ratio 23 ratio none LV E:e' lateral ratio 13.9 ratio none TAPSE 1.94 cm none Aortic Valve Name Value Normal Range AV Vmax 2.62 m/sec (1 - 1.7) AV VTI 69 cm none AV peak gradient 27.46 mmHg (Less Than 36) AV mean gradient 15 mmHg (Less Than 20) LVOT diameter 2 cm (1.7 - 2.5) LVOT Vmax 0.84 m/sec (0.7 - 1.1) LVOT VTI 24.3 cm none LVOT peak gradient 3 mmHg none LVOT mean gradient 1 mmHg none DOI (VTI) 0.35 ratio none DOI (Vmax) 0.32 ratio none SV LVOT 76.3 ml none CO LVOT 5.65 l/min none Cardiac index 2.75 l/min/m2 none ALINE (continuity Vmax) 1 cm2 none ALINE (continuity Vmax) index 0.49 cm2/m2 none ALINE (continuity VTI) 1.11 cm2 none ALINE (continuity VTI) index 0.54 cm2/m2 none AR PHT 322 msec none AR peak gradient 11 mmHg none Ascending Ao 4.3 cm none Mitral Valve Name Value Normal Range MV Vmax 1.52 m/sec (0.6 - 1.3) MV VTI 44 cm none MV peak gradient 9.24 mmHg none MV mean gradient 3 mmHg none MV PHT 85 msec none MR Vmax 4.18 m/sec none MR VTI 89.1 cm none MVA (PHT) 2.59 cm2 none MVA (continuity VTI) 1.73 cm2 none Tricuspid Valve Name Value Normal Range TR Vmax 2.34 m/sec none TR peak gradient 21.9 mmHg none RAP 8 mmHg none RVSP 29.9 mmHg none Pulmonic Valve/Qp:Qs Name Value Normal Range PV Vmax 0.88 m/sec (0.6 - 0.9) PV VTI 18.3 cm none PV peak gradient 3.12 mmHg none PV mean gradient 1 mmHg none Electronically Signed at 12/08/2018 10:51:17 by: Jennifer Cintron M.D. [facility] Ultrasound abdominal aorta d uplex limitedon 12-07-2018 Non-Invasive Vascula r Patient: CLAYTON Mccollum [facility] Rec#: [id number] (Age): 1945(73y) Study Date: 12/07/2018 Room#: Type: Sex: M Reading: CIRA Reading: Irwin Gayle MD, RPVI Referring: PRESTON HEALY PAUL Restaurant Supervisor: VIPUL COOPER Procedure Info: [id number] Study Quality: Aneurysm Duplex: adequate Diagnosis: R09.89 Other specified symptoms and signs involving the circulatory and respiratory systems Aneurysm Duplex Conclusions No evidence of an abdominal aortic aneurysm. No evidence of right or left common iliac artery aneurysm. The procedure was explained to the patient. The patient voiced understanding. Measurements Aorta Name Value Units AP Prox 2.01 cm AP Mid 2.02 cm AP Dist 1.55 cm TRV Prox 2.06 cm TRV Mid 1.96 cm TRV Dist 1.61 cm Aorta PSV Name Value Units Prox Aorta 76 cm/sec Mid Aorta 58 cm/sec Dist Aorta 87 cm/sec Right Name Value Units AP SERENE 1.07 cm TRV SERENE 1.1 cm Right PSV Name Value Units SERENE 75 cm/sec Left Name Value Units AP SERENE 1.14 cm TRV SERENE 1.15 cm Left PSV Name Value Units SERENE 85 cm/sec History CAD. Hyperlipidemia. Hypertension. Malignancy. Tobacco Use-Previous. Electronically signed at 12/07/2018 12:15:35 by: Irwin Gayle MD, RPTANISHA [facility] In [facility] - 12/07/2018 12:31 PM EDT Non-Invasive Vascular Patient: CLAYTON Mccollum [facility] Rec#: [id number] (Age): 1945(73y) Study Date: 12/07/2018 Room#: Type: Sex: M Reading: CIRA Reading: Irwin Gayle MD, ALISHAVI Referring: PRESTON HEALY PAUL Restaurant Supervisor: VIPUL COOPER Procedure Info: [id number] Study Quality: Aneurysm Duplex: adequate Diagnosis: R09.89 Other specified symptoms and signs involving the circulatory and respiratory systems Aneurysm Duplex Conclusions No evidence of an abdominal aortic aneurysm. No evidence of right or left common iliac artery aneurysm. The procedure was explained to the patient. The patient voiced understanding. Measurements Aorta Name Value Units AP Prox 2.01 cm AP Mid 2.02 cm AP Dist 1.55 cm TRV Prox 2.06 cm TRV Mid 1.96 cm TRV Dist 1.61 cm Aorta PSV Name Value Units Prox Aorta 76 cm/sec Mid Aorta 58 cm/sec Dist Aorta 87 cm/sec Right Name Value Units AP SERENE 1.07 cm TRV SERENE 1.1 cm Right PSV Name Value Units SERENE 75 cm/sec Left Name Value Units AP SERENE 1.14 cm TRV SERENE 1.15 cm Left PSV Name Value Units SERENE 85 cm/sec History CAD. Hyperlipidemia. Hypertension. Malignancy. Tobacco Use-Previous. Electronically signed at 12/07/2018 12:15:35 by: Irwin Gayle MD, [facility] XR CHEST AP/PA AND LATon No acute cardiopulmonary process. [employer] Workstation ID: [id number] [facility] EXAMINATION: XR CHES T AP/PA AND LAT HISTORY: ORDERING SYSTEM PROVIDED HISTORY: Chest pain, unspecified type, TECHNOLOGIST PROVIDED HISTORY: Reason for exam: chest pain Illness/Other Cancer History: u Surgery, RadiationHistory: CABG Encounter Type: Initial Additional signs and symptoms: hx of CABG 3 years ago , since CABG intermittent sternal pain ORDERING SYSTEM PROVIDED DIAGNOSIS CODES: R07.9 Chest pain, unspecified type COMPARISON: 09/22/2015. FINDINGS: Two view chest x-ray. No pneumothorax. Elevated right hemidiaphragm with overlying subsegmental atelectasis. No dense airspace consolidation. Calcified granuloma projects over the lingula. Normal heart size. Atherosclerotic calcifications of the aortic arch. Postoperative changes of median sternotomy, aortic valve replacement, and CABG. Mild multilevel degenerative changes of the thoracic spine. [facility] Interface, Rad In [employer] - 12/07/2018 6:51 PM EDT EXAMINATION: XR CHEST AP/PA AND LAT HISTORY: ORDERING SYSTEM PROVIDED HISTORY: Chest pain, unspecified type, TECHNOLOGIST PROVIDED HISTORY: Reason for exam: chest pain Illness/Other Cancer History: u Surgery, RadiationHistory: CABG Encounter Type: Initial Additional signs and symptoms: hx of CABG 3 years ago , since CABG intermittent sternal pain ORDERING SYSTEM PROVIDED DIAGNOSIS CODES: R07.9 Chest pain, unspecified type COMPARISON: 09/22/2015. FINDINGS: Two view chest x-ray. No pneumothorax. Elevated right hemidiaphragm with overlying subsegmental atelectasis. No dense airspace consolidation. Calcified granuloma projects over the lingula. Normal heart size. Atherosclerotic calcifications of the aortic arch. Postoperative changes of median sternotomy, aortic valve replacement, and CABG. Mild multilevel degenerative changes of the thoracic spine. IMPRESSION: No acute cardiopulmonary process. [employer] Workstation ID: [id number] [facility] Auto Diffon 10-23-2018 Basophils (Bld) [#/Vol] 0.0 E3/mcL Normal 0.0-0.2 [facility] Comment on above: Order Comment: Order Added by Discern Expert. Performed By: #### 2 [id number] #### DWIGHT RemHemo [address] [place] [address] Basophils/100 WBC (Bld) 0.8 % Normal 0.0-2.0 [facility] Comment on above: Order Comment: Order Added by Discern Expert. Performed By: #### 2 [id number] #### DWIGHT RemHemo [address] [place] [address] Eos Absolute 0.2 E3/mcL Normal 0.0-0.7 [facility] Comment on above: Order Comment: Order Added by Discern Expert. Performed By: #### 2 [id number] #### DWIGHT RemHemo [address] [place] [address] Eosinophils/100 WBC (Bld) 3.1 % Normal 0.0-11.0 [facility] Comment on above: Order Comment: Order Added by Discern Expert. Performed By: #### 2 [id number] #### DWIGHT RemHemo [address] [place] [address] Lymphocytes (Bld) [#/Vol] 1.7 E3/mcL Normal 1.2-3.4 [facility] Comment on above: Order Comment: Order Added by Discern Expert. Performed By: #### 2 [id number] #### DWIGHT RemHemo [address] [place] [address] Lymphocytes/100 WBC (Bld) 33.4 % Normal 20.0-55.0 [facility] Comment on above: Order Comment: Order Added by Discern Expert. Performed By: #### 2 [id number] #### DWIGHT LauHemo [address] [place] [address] [place] Absolute 0.4 E3/mcL Normal 0.0-0.7 [facility] Comment on above: Order Comment: Order Added by Discern Expert. Performed By: #### 2 [id number] #### DWIGHT JudiHemo [address] [place] [id number] Monocytes/100 WBC (Bld) 8.0 % Normal 0.0-10.0 [facility] Comment on above: Order Comment: Order Added by Discern Expert. Performed By: #### 2 [id number] #### DWIGHT JudiHemo [facility] [place] [id number] Neutro Absolute 2.8 E3/mcL Normal 1.4-6.5 [facility] Comment on above: Order Comment: Order Added by Discern Expert. Performed By: #### 2 [id number] #### DWIGHT JudiHemo [address] [place], [place] [id number] Neutro Auto 54.7 % Normal 37.0-75.0 [facility] Comment on above: Order Comment: Order Added by Discern Expert. Performed By: #### 2 [id number] #### DWIGHT JudiHemo [facility] [place] [address] CBC w/ Auto Diffon 9 Erythrocyte distribution width (RBC) [Ratio] 14.2 % Normal 11.5-14.5 [facility] Comment on above: Performed By: #### 2 [id number] #### DWIGHT JudiHemo [facility] [place] [address] Hematocrit (Bld) [Volume fraction] 42.6 % Normal 42.0-52.0 [facility] Comment on above: Performed By: #### 2 601201 #### DWIGHT JudiHemo [facility] [place] [address] Hemoglobin (Bld) [Mass/Vol] 14.3 g/dL Normal 13.5-18.0 [facility] Comment on above: Performed By: #### 2 [id number] #### DWIGHT RemHemo [address] [place] [address] MCH (RBC) [Entitic mass] 28.7 pg Normal 27.0-31.0 [facility] Comment on above: Performed By: #### 2 [id number] #### DWIGHT RemHemo [address] [place] [address] MCHC (RBC) [Mass/Vol] 33.6 g/dL Normal 33.0-37.0 [facility] Comment on above: Performed By: #### 2 [id number] #### DWIGHT RemHemo [address] [place] [address] MCV (RBC) [Entitic vol] 85.4 fL Normal 78.0-100.0 [facility] Comment on above: Performed By: #### 2 [id number] #### DWIGHT RemHemo [address] [place] [address] Platelet mean volume (Bld) [Entitic vol] 8.6 fL Normal 7.4-11.0 [facility] Comment on above: Performed By: #### 2 [id number] #### DWIGHT RemHemo [facility] [place] [address] Platelets (Bld) [#/Vol] 180 E3/mcL Normal 130-400 [facility] Comment on above: Performed By: #### 2 [id number] #### DWIGHT RemHemo [address] [place] [address] RBC (Bld) [#/Vol] 4.99 E6/mcL Normal 3.90-6.10 [facility] Comment on above: Performed By: #### 2 [id number] #### DWIGHT RemHemo [address] [place] [address] WBC (Bld) [#/Vol] 5.2 E3/mcL Normal 3.6-11.0 [facility] Comment on above: Performed By: #### 2 [id number] #### DWIGHT RemHemo [address] [place] [address] CMPon 10-23-2018 Albumin [Mass/Vol] 4.0 g/dL Normal 3.4-5.0 [facility] Comment on above: Performed By: #### 2 315472 #### DWIGHT Arangoo [address] [place] [address] Albumin/Globulin [Mass ratio] 1.5 {ratio} Normal 1.1-1.9 [facility] Comment on above: Performed By: #### 2 [id number] #### DWIGHT Arangoo [address] [place] [address] Alk Phos 71 Int._Unit/L Normal 33-136 [facility] Comment on above: Performed By: #### 2 [id number] #### DWIGHT LauHemo [facility] [place] [address] ALT [Catalytic activity/Vol] 31 Int._Unit/L Normal 10-52 [facility] Comment on above: Performed By: #### 2 [id number] #### DWIGHT Arangoo [facility] [place] [address] Anion gap [Moles/Vol] 10 mmol/L Normal 10-20 [facility] Comment on above: Performed By: #### 2 [id number] #### DWIGHT Arangoo [address] [place] [address] AST [Catalytic activity/Vol] 22 Int._Unit/L Normal 9-39 [facility] Comment on above: Performed By: #### 2 [id number] #### DWIGHT LauHemo [address] [place] [address] Bili Total 0.70 mg/dL Normal 0.00-1.20 [facility] Comment on above: Performed By: #### 2 [id number] #### DWIGHT LauHemo [facility] [place] [address] Calcium [Mass/Vol] 9.2 mg/dL Normal 8.6-10.3 [facility] Comment on above: Performed By: #### 2 [id number] #### DWIGTH LauHemo [address] [place] [address] Chloride [Moles/Vol] 104 mmol/L Normal 98-107 [facility] Comment on above: Performed By: #### 2 [id number] #### DWIGHT LauHemo [address] [place] [address] CO2 [Moles/Vol] 30.0 mmol/L Normal 21.0-32.0 [facility] Comment on above: Performed By: #### 2 [id number] #### DWIGHT RemHemo [address] [place] [address] Creatinine [Mass/Vol] 1.0 mg/dL Normal 0.5-1.3 [facility] Comment on above: Performed By: #### 2 477907 #### DWIGHT RemHemo [address] [place] [address] Globulin (S) [Mass/Vol] 3.0 g/dL Normal 2.0-4.0 [facility] Comment on above: Performed By: #### 2 [id number] #### DWIGHT RemHemo [address] [place] [address] Glucose [Mass/Vol] 106 mg/dL High 70-99 [facility] Comment on above: Performed By: #### 2 [id number] #### DWIGHT RemHemo [address] [place] [address] Potassium [Moles/Vol] 4.2 mmol/L Normal 3.5-5.3 [facility] Comment on above: Performed By: #### 2 [id number] #### DWIGHT RemHemo [address] [place] [address] Protein [Mass/Vol] 6.7 g/dL Normal 6.4-8.2 [facility] Comment on above: Performed By: #### 2 [id number] #### DWIGHT RemHemo [address] [place] [address] Sodium [Moles/Vol] 140 mmol/L Normal 136-145 [facility] Comment on above: Performed By: #### 2 [id number] #### DWIGHT RemHemo [address] [place] [address] Urea nitrogen [Mass/Vol] 28 mg/dL High 6-23 [facility] Comment on above: Performed By: #### 2 [id number] #### DWIGHT RemHemo [address] [place] [address] Urea nitrogen/Creatinine [Mass ratio] 28.0 ratio Normal 5.4-30.0 [facility] Comment on above: Performed By: #### 2 [id number] #### DWIGHT RemHemo [address] [place] [address] Free T4on 10-23-2018 Free T4 [Mass/Vol] 0.87 ng/dL Normal 0.58-1.64 [facility] Comment on above: Performed By: #### 2 [id number] #### DWIGHT LauHemo [address] [place] [address] [id number] 10-23-2018 HbA1c (Bld) [Mass fraction] 9.7 % High 4.0-6.3 [facility] Comment on above: Performed By: #### 2 [id number] #### DWIGHT Arangoo [address] [place] [address] Lipid Profileon 10-23-2018 Cholesterol [Mass/Vol] 118 mg/dL Normal 0-199 [facility] Comment on above: Performed By: #### 2 [id number] #### DWIGHT LauHemo [address] [place] [address] Cholesterol in HDL [Mass/Vol] 51 mg/dL Normal 40-60 [facility] Comment on above: Performed By: #### 2 225250 #### DWIGHT LauHemo [address] [place] [address] Cholesterol in LDL [Mass/Vol] 57 mg/dL Normal 0-130 [facility] Comment on above: Performed By: #### 2 [id number] #### DWIGHT LauHemo [address] [place] [address] Cholesterol in VLDL [Mass/Vol] 10 mg/dL Normal 0-40 [facility] Comment on above: Performed By: #### 2 [id number] #### DWIGHT LauHemo [address] [place] [address] Triglyceride [Mass/Vol] 49 mg/dL Normal 0-149 [facility] Comment on above: Result Comment: AGE DESIRABLE BORDERLINE HIGH 91 D - 9 Y 0 - 74 75 - 99 > 100 10 - 19 Y 0 - 89 90 - 129 > 130 20 - 24 Y 0 - 114 115 - 149 > 150 > 25 0 - 149 150 - 199 200 - 499 Performed By: #### 2 [id number] #### DWIGHTMarielena LauHemo [address] [place] [address] Microalb/Creat Ratioon 10-23 Creatinine [Mass/Vol] 68.0 mg/dL Normal 20.0-300.0 [facility] Comment on above: Performed By: #### 2 257703 #### DWIGHT LauHemo [address] [place] [address]58805 Creatinine [Mass/Vol] 12 ug/mg Normal 0-30 [facility] Comment on above: Performed By: #### 2 664939 #### DWIGHT LauHemo [address] [place] [address]58[address] Ur Microalbumin 0.8 mg/dL Normal 0.0-1.9 [facility] Comment on above: Performed By: #### 2 927855 #### DWIGHT LauHemo [facility] [place] [address] TSHon 10-23-2018 TSH Qn 2.03 mcIU/mL Normal 0.30-5.60 [facility] Comment on above: Performed By: #### 2 837383 #### DWIGHT LauHemo [address] [place], [place] [address] eGFRon 10-23-2018 GFR/1.73 sq M predicted among non-blacks MDRD (S/P/Bld) [Vol rate/Area] mL/min/{1.73_m2} Normal [facility] Comment on above: Order Comment: Order Added by Discern Expert. Performed By: #### 2 [id number] #### DWIGHT LauHemo [address] [place] [address] CMPon 06-20-2018 Albumin [Mass/Vol] 4.1 g/dL Normal 3.4-5.0 [facility] Comment on above: Performed By: #### 2 029604 #### DWIGHT RemChem [address] [place] [address] Albumin/Globulin [Mass ratio] 1.4 {ratio} Normal 1.1-1.9 [facility] Comment on above: Performed By: #### 2 [id number] #### DWIGHT RemChem [address] [place] [address] Alk Phos 80 Int._Unit/L Normal 33-136 [facility] Comment on above: Performed By: #### 2 824271 #### DWIGHT LauChem [address] [place] [address] ALT [Catalytic activity/Vol] 17 Int._Unit/L Normal 10-52 [facility] Comment on above: Performed By: #### 2 478311 #### DWIGHT LauChem [address] [place] [address] Anion gap [Moles/Vol] 9 mmol/L Low 10-20 [facility] Comment on above: Performed By: #### 2 190509 #### DWIGHT LauChem [facility] [place] [address] AST [Catalytic activity/Vol] 25 Int._Unit/L Normal 9-39 [facility] Comment on above: Performed By: #### 2 797003 #### DWIGHT LauChem [facility] [place] [address] Bili Total 0.65 mg/dL Normal 0.00-1.20 [facility] Comment on above: Performed By: #### 2 471268 #### DWIGHT LauChem [address] [place] [address] Calcium [Mass/Vol] 9.7 mg/dL Normal 8.6-10.3 [facility] Comment on above: Performed By: #### 2 845654 #### DWIGHT RemChem [address] [place] [address] Chloride [Moles/Vol] 104 mmol/L Normal 98-107 [facility] Comment on above: Performed By: #### 2 829401 #### DWIGHT RemChem [facility] [place] [address] CO2 [Moles/Vol] 30.0 mmol/L Normal 21.0-32.0 [facility] Comment on above: Performed By: #### 2 281862 #### DWIGHT RemChem [address] [place] [address] Creatinine [Mass/Vol] 0.9 mg/dL Normal 0.5-1.3 [facility] Comment on above: Performed By: #### 2 861301 #### WDIGHT RemChem [address] [place] [address] Globulin (S) [Mass/Vol] 3.0 g/dL Normal 2.0-4.0 [facility] Comment on above: Performed By: #### 2 870931 #### DWIGHT RemChem [address] [place] [address] Glucose [Mass/Vol] 58 mg/dL Low 70-99 [facility] Comment on above: Performed By: #### 2 165960 #### DWIGHT RemChem [address] [place] [address] Potassium [Moles/Vol] 4.3 mmol/L Normal 3.5-5.3 [facility] Comment on above: Performed By: #### 2 064882 #### DWIGHT RemChem [address] [place] [address] Protein [Mass/Vol] 7.1 g/dL Normal 6.4-8.2 [facility] Comment on above: Performed By: #### 2 093348 #### DWIGHT RemChem [address] [place] [address] Sodium [Moles/Vol] 139 mmol/L Normal 136-145 [facility] Comment on above: Performed By: #### 2 386931 #### DWIGHT RemChem [address] [place] [address] Urea nitrogen [Mass/Vol] 21 mg/dL Normal 6-23 [facility] Comment on above: Performed By: #### 2 344418 #### DWIGHT RemChem [address] [place] [address] Urea nitrogen/Creatinine [Mass ratio] 23.3 ratio Normal 5.4-30.0 [facility] Comment on above: Performed By: #### 2 543839 #### DWIGHT RemChem [address] [place] [address] [id number] 06-20-2018 HbA1c (Bld) [Mass fraction] 6.3 % Normal 4.0-6.3 [facility] Comment on above: Performed By: #### 2 516816 #### DWIGHT RemHemo [address] [place] [address] eGFRon 06-20-2018 GFR/1.73 sq M predicted among non-blacks MDRD (S/P/Bld) [Vol rate/Area] mL/min/{1.73_m2} Normal [facility] Comment on above: Order Comment: Order added by Discern Expert. Performed By: #### 1 [id number] #### DWIGHT RemChem [address] [place] [address] Auto Diffon 03-07-2018 Basophils (Bld) [#/Vol] 0.1 E3/mcL Normal 0.0-0.2 [facility] Comment on above: Order Comment: Order Added by Discern Expert. Performed By: #### 2 785450 #### DWIGHT RemHemo [address] [place] [address] Basophils/100 WBC (Bld) 1.1 % Normal 0.0-2.0 [facility] Comment on above: Order Comment: Order Added by Discern Expert. Performed By: #### 2 249503 #### DWIGHT RemHemo [address] [place] [address] Eos Absolute 0.3 E3/mcL Normal 0.0-0.7 [facility] Comment on above: Order Comment: Order Added by Lorenza Expert. Performed By: #### 2 940971 #### DWIGHT RemHemo [address] [place] [address] Eosinophils/100 WBC (Bld) 6.6 % Normal 0.0-11.0 [facility] Comment on above: Order Comment: Order Added by Discern Expert. Performed By: #### 2 840584 #### DWIGHT RemHemo [address] [place] [address] Lymphocytes (Bld) [#/Vol] 1.3 E3/mcL Normal 1.2-3.4 [facility] Comment on above: Order Comment: Order Added by Discern Expert. Performed By: #### 2 105431 #### DWIGHT RemHemo [address] [place] [address] Lymphocytes/100 WBC (Bld) 28.5 % Normal 20.0-55.0 [facility] Comment on above: Order Comment: Order Added by Discern Expert. Performed By: #### 2 123523 #### DWIGHT RemHemo [address] [place] [address] [place] Absolute 0.4 E3/mcL Normal 0.0-0.7 [facility] Comment on above: Order Comment: Order Added by Discern Expert. Performed By: #### 2 581933 #### DWIGHT LauHemo [address] [place] [address] Monocytes/100 WBC (Bld) 9.3 % Normal 0.0-10.0 [facility] Comment on above: Order Comment: Order Added by Discern Expert. Performed By: #### 2 163343 #### DWIGHT LauHemo [address] [place] [address] Neutro Absolute 2.5 E3/mcL Normal 1.4-6.5 [facility] Comment on above: Order Comment: Order Added by Discern Expert. Performed By: #### 2 918027 #### DWIGHT LauHemo [address] [place] [address] Neutro Auto 54.5 % Normal 37.0-75.0 [facility] Comment on above: Order Comment: Order Added by Discern Expert. Performed By: #### 2 281374 #### DWIGHT LauHemo [facility]5 [place] [address] CBC w/ Auto Diffon 8 Erythrocyte distribution width (RBC) [Ratio] 14.3 % Normal 11.5-14.5 [facility] Comment on above: Performed By: #### 2 331492 #### DWIGHT Arangoo [address] [place] [address] Hematocrit (Bld) [Volume fraction] 42.4 % Normal 42.0-52.0 [facility] Comment on above: Performed By: #### 2 171097 #### DWIGHT LauHemo [address] [place] [address] Hemoglobin (Bld) [Mass/Vol] 14.2 g/dL Normal 13.5-18.0 [facility] Comment on above: Performed By: #### 2 282050 #### DWIGHT LauHemo [facility] [place] [address] MCH (RBC) [Entitic mass] 27.7 pg Normal 27.0-31.0 [facility] Comment on above: Performed By: #### 2 855873 #### DWIGHT LauHemo [facility] [place] [address] MCHC (RBC) [Mass/Vol] 33.5 g/dL Normal 33.0-37.0 [facility] Comment on above: Performed By: #### 2 253902 #### DWIGHT LauHemo [facility] [place] [address] MCV (RBC) [Entitic vol] 82.9 fL Normal 78.0-100.0 [facility] Comment on above: Performed By: #### 2 306107 #### DWIGHT JudiHemo [facility]5 [place] [address] Platelet mean volume (Bld) [Entitic vol] 8.3 fL Normal 7.4-11.0 [facility] Comment on above: Performed By: #### 2 830448 #### DWIGHT JudiHemo [address] [place] [address] Platelets (Bld) [#/Vol] 194 E3/mcL Normal 130-400 [facility] Comment on above: Performed By: #### 2 076470 #### DWIGHT JudiHemo [address] [place] [address] RBC (Bld) [#/Vol] 5.11 E6/mcL Normal 3.90-6.10 [facility] Comment on above: Performed By: #### 2 505539 #### DWIGHT LauHemo [address] [place] [address] WBC (Bld) [#/Vol] 4.6 E3/mcL Normal 3.6-11.0 [facility] Comment on above: Performed By: #### 2 860517 #### DWIGHT JudiHemo [facility]5 [place] [address] CMPon 03-07-2018 Albumin [Mass/Vol] 3.8 g/dL Normal 3.2-5.0 [facility] Comment on above: Performed By: #### 2 342518 #### DWIGHT JudiChem [facility] [place] [address] Albumin/Globulin [Mass ratio] 1.2 {ratio} Normal 1.1-1.9 [facility] Comment on above: Performed By: #### 2 449114 #### DWIGHT RemChem [facility] [place] [address] Alk Phos 63 Int._Unit/L Normal 42-121 [facility] Comment on above: Performed By: #### 2 745000 #### DWIGHT RemChem [address] [place] [address] ALT [Catalytic activity/Vol] 14 Int._Unit/L Normal 10-40 [facility] Comment on above: Performed By: #### 2 497097 #### DWIGHT RemChem [address] [place] [address] AST [Catalytic activity/Vol] 23 Int._Unit/L Normal 10-42 [facility] Comment on above: Performed By: #### 2 890810 #### DWIGHT RemChem [address] [place] [address] Bili Total 0.8 mg/dL Normal 0.2-1.0 [facility] Comment on above: Performed By: #### 2 417108 #### DWIGHT RemChem [address] [place] [address] Calcium [Mass/Vol] 9.3 mg/dL Normal 8.4-10.2 [facility] Comment on above: Performed By: #### 2 062572 #### DWIGHT RemChem [address] [place] [address] Chloride [Moles/Vol] 102 mmol/L Normal 98-107 [facility] Comment on above: Performed By: #### 2 291638 #### DWIGHT RemChem [address] [place] [address] CO2 [Moles/Vol] 25.1 mmol/L Normal 24.0-30.0 [facility] Comment on above: Performed By: #### 2 579094 #### DWIGHT RemChem [address] [place] [address] Creatinine [Mass/Vol] 0.8 mg/dL Normal 0.6-1.3 [facility] Comment on above: Performed By: #### 2 129780 #### DWIGHT RemChem [address] [place] [address] Globulin (S) [Mass/Vol] 3.1 g/dL Normal 2.0-4.0 [facility] Comment on above: Performed By: #### 2 221443 #### DWIGHT RemChem [address] [place] [address] Glucose [Mass/Vol] 137 mg/dL High 70-99 [facility] Comment on above: Performed By: #### 2 910118 #### DWIGHT RemChem [address] [place] [address] Potassium [Moles/Vol] 4.3 mmol/L Normal 3.5-5.1 [facility] Comment on above: Performed By: #### 2 204827 #### DWIGHT RemChem [address] [place] [address] Protein [Mass/Vol] 6.9 g/dL Normal 6.4-8.3 [facility] Comment on above: Performed By: #### 2 854604 #### DWIGHT RemChem [address] [place] [address] Sodium [Moles/Vol] 136 mmol/L Normal 136-145 [facility] Comment on above: Performed By: #### 2 895402 #### DWIGHT RemChem [address] [place] [address] Urea nitrogen [Mass/Vol] 17 mg/dL Normal 7-18 [facility] Comment on above: Performed By: #### 2 235615 #### DWIGHT Rem[address] [address] Urea nitrogen/Creatinine [Mass ratio] 21.2 ratio Normal 5.4-30.0 [facility] Comment on above: Performed By: #### 2 237194 #### DWIGHT Rem[address] [address] Free T4on 03-07-2018 Free T4 [Mass/Vol] 0.92 ng/dL Normal 0.58-1.64 [facility] Comment on above: Performed By: #### 2 929522 #### DWIGHT Datalink [address] [place] [address] [id number] 03-07-2018 HbA1c (Bld) [Mass fraction] 7.9 % High 4.0-6.3 [facility] Comment on above: Performed By: #### 3 [id number] #### DWIGHT Chemistry Manual Subsection [address] [place] [address] Lipid Profileon 03-07-2018 Cholesterol [Mass/Vol] 102 mg/dL Normal 50-200 [facility] Comment on above: Result Comment: TOTA L CHOLEESTEROL: <200 NORMAL 200 - 239 BORDERLINE HIGH >240 HIGH Performed By: #### 3 [id number] #### DWIGHT RemChem [address] [place] [address] Cholesterol in HDL [Mass/Vol] 45 mg/dL Normal >=41 [facility] Comment on above: Performed By: #### 3 [id number] #### DWIGHT RemChem [address] [place] [address] Cholesterol in LDL [Mass/Vol] 44 mg/dL Normal 0-130 [facility] Comment on above: Result Comment: <100 OPTIMAL 100-129 NEAR / ABOVE OPTIMAL 130-159 BORDERLINE HIGH 160-189 HIGH >190 VERY HIGH CALC LDL NOT VALID WHEN TRIGLYCERIDE IS >400 MG/DL Performed By: #### 3 [id number] #### DWIGHT RemChem [address] [place] [address] Cholesterol in VLDL [Mass/Vol] 13 mg/dL Normal [facility] Comment on above: Performed By: #### 3 0980109 #### DWIGHT RemChem [address] [place] [address] Triglyceride [Mass/Vol] 66 mg/dL Normal 35-150 [facility] Comment on above: Result Comment: <150 NORMAL 150-199 BORDERLINE HIGH 200-499 HIGH >500 VERY HIGH Performed By: #### 3 [id number] #### DWIGHT RemChem [address] [place] [address] TSHon 03-07-2018 TSH Qn 2.18 mIU/m Normal 0.30-5.60 [facility] Comment on above: Performed By: #### 2 809084 #### DWIGHT Datalink [address] [place] [address] eGFRon 03-07-2018 GFR/1.73 sq M predicted among non-blacks MDRD (S/P/Bld) [Vol rate/Area] mL/min/{1.73_m2} Normal [facility] Comment on above: Order Comment: Order added by Discern Expert. Performed By: #### 1 [id number] #### DWIGHT RemChem [address] [place] [address] XR Hand Left 2 Viewson 12-26 XR Hand Left 2 Views X-ray left hand 3 views reveals a left fifth finger proximal phalangeal fracture anatomic alignment on the AP plane 35? angulation on the lateral film Invalid Interpretation Code Screen [employer] [facility] Echocardiogram complete w co ntraston 11-21-2017 Echocardiogram complete w contrast Transthoracic Echocardiogram Patient: CLYATON Mccollum Med Rec#: [id number] (Age): 1945(72y) Height: 170(cm)/66(in) Study Date: 11/21/2017 Weight: 110(kg)/242(lbs Room#: BSA: [id number] Type: Outpatient Loc: Sex: M Reading: Ernesto Gibbs MD, RVPI Referring: [facility] Healy MD Restaurant Supervisor: Yen Yeh RN, [facility] History: Aortic Valve replacement. -#23mm Alfred-EdwardsCor onary artery disease. Diabetes. Hyperlipidemia Hypertension. Myocardial infarction. Other. ObesityS/P CABG. TIA. Study Quality The study quality is poor. Summary: Patient identity verified (pause and confirm). Current HP present on patient chart. Procedure explained and patient verified understanding. Consent obtained for procedure. Definity explained to patient. Patient verbalizes understanding and agrees to proceed. Definity 1.3ml/8.7ml normal sterile saline 2 ml total given IV over 30-60 seconds. Conclusions: Moderate concentric left ventricular hypertrophy is observed.The ejection fraction is calculated to be 62% using the Method of Disks, suspect proximal inferior and posterior hypokinesis The aortic valve is not well visualized.The gradient is normal for the prosthetic valve. The left atrium is moderately dilated.The right ventricle is mild to moderately dilated. The right atrium is moderately dilated. There is mild dilatation of the ascending aorta.4.4 cm Findings Reason For Study: Prosthetic heart valve assessment. (Definity Study) Left Ventricle: The left ventricular chamber size is normal. Moderate concentric left ventricular hypertrophy is observed. The ejection fraction is calculated to be 62% using the Method of Disks. suspect proximal inferior and posterior hypokinesis indeterminate diastolic function The basal inferolateral, basal inferior, and mid inferolateral wall segments are hypokinetic. Left Atrium: The left atrium is moderately dilated. Right Ventricle: The right ventricle is mild to moderately dilated. The right ventricular global systolic function is grossly normal. Right Atrium: The right atrium is moderately dilated. Aortic Valve: The aortic valve is not well visualized. There is mild dilatation of the aortic root. The mean gradient of the aortic valve is 16 mmHg. The aortic valve peak velocity is 2.69 m/sec. There is a trace of aortic regurgitation. The gradient is normal for the prosthetic valve. Mitral Valve: The mitral valve leaflets appear normal. There is moderate mitral annular calcification. Moderate mitral leaflet calcification is visualized. The chordae is moderately thickened. The chordae is moderately calcified. No significant insufficiency. Tricuspid Valve: The tricuspid valve leaflets are normal. The right ventricular systolic pressure is 27.71 mmHg. No significant insufficiency. Pulmonic Valve: The pulmonic valve appears normal. No significant insufficiency. Pericardium: There is no pericardial effusion. Aorta: There is mild dilatation of the ascending aorta. Venous: The inferior vena cava appears normal in size. There is a greater than 50% respiratory change in the inferior vena cava dimension. The flow patterns of the pulmonary veins were consistent with systolic blunting. HR BP 118/74 Measurements Chambers MM Name Value Normal Range Ao root diameter (MM) 4.3 cm none Ao root diameter (MM) index 1.96 cm/m2 none Chambers 2D Name Value Normal Range RVIDd (AP) 4.8 cm none IVSd (2D) 2.13 cm none LVPWd (2D) 1.82 cm none IVS:LVPW ratio (2D) 1.17 ratio none LVIDd (2D) 3.68 cm none LVIDs (2D) 2.46 cm none LVIDd (2D) index 1.68 cm/m2 none LVIDs (2D) index 1.12 cm/m2 none LV FS (2D) 33.15 % none LV FS (Teichholz) (2D) 33.2 % none LV FS (cube) (2D) 33.2 % none LV EF (2D) 62 % (60 - 100) EF Teichholz (2D) 62.63 % none Ao root diameter (2D) 4.4 cm none Aortic root diameter (2D) inde2.01 cm/m2 none Volumes/Mass Name Value Normal Range LA ESV SP 4CH (MOD) 86 ml none LA ESV SP 2CH (MOD) 93 ml none LA ESV BP (MOD) 89 ml none LA ESV BP (MOD) index 40.58 ml/m2 none LV EDV SP 4CH (MOD) 184 ml none LV ESV SP 4CH (MOD) 67 ml none EF SP 4CH (MOD) 63.59 % none LV EDV SP 2CH (MOD) 183 ml none LV ESV SP 2CH (MOD) 66 ml none EF SP 2CH (MOD) 63.93 % none LV EDV BP 184 ml none LV ESV BP 69 ml none BP EF (MOD) 62.5 % none LV EDV BP index 83.9 ml/m2 none LV ESV BP index 31.46 ml/m2 none LV mass (2D) 328.71 g none LV mass (2D) index 149.89 g/m2 none RWT 1 ratio none Diastolic/Systolic Function Name Value Normal Range MV E-wave Vmax 1.09 m/sec none MV deceleration time 264 msec none MV A-wave Vmax 0.76 m/sec none MV E:A ratio 1.44 ratio (1.1 - 1.5) LV septal e' Vmax 0.05 m/sec none LV lateral e' Vmax 0.08 m/sec none LV average e' Vmax 0.06 m/sec none LV E:e' septal ratio 21.63 ratio none LV E:e' lateral ratio 14.19 ratio none LV average E:e' ratio 17.14 ratio none TAPSE 2 cm none Aortic Valve Name Value Normal Range AV Vmax 2.69 m/sec (1 - 1.7) AV VTI 55.8 cm none AV peak gradient 28.94 mmHg (Less Than 36) AV mean gradient 16 mmHg (Less Than 20) LVOT diameter 2.3 cm (1.7 - 2.5) LVOT Vmax 0.94 m/sec (0.7 - 1.1) LVOT VTI 20.5 cm none LVOT peak gradient 4 mmHg none LVOT mean gradient 2 mmHg none DOI (VTI) 0.37 ratio none DOI (Vmax) 0.35 ratio none SV LVOT 85.13 ml none ALINE (continuity Vmax) 1.45 cm2 none ALINE (continuity Vmax) index 0.66 cm2/m2 none ALINE (continuity VTI) 1.53 cm2 none ALINE (continuity VTI) index 0.7 cm2/m2 none Mitral Valve Name Value Normal Range MV Vmax 1.36 m/sec (0.6 - 1.3) MV VTI 40 cm none MV peak gradient 7.4 mmHg none MV mean gradient 3 mmHg none MV PHT 92 msec none MVA (PHT) 2.39 cm2 none MVA (continuity VTI) 2.13 cm2 none Tricuspid Valve Name Value Normal Range TR Vmax 2.22 m/sec none TR peak gradient 19.71 mmHg none RAP 8 mmHg none RVSP 27.71 mmHg none Pulmonic Valve/Qp:Qs Name Value Normal Range PV Vmax 0.88 m/sec (0.6 - 0.9) PV VTI 16.3 cm none PV peak gradient 3.11 mmHg none PV mean gradient 1 mmHg none Electronically Signed at 11/21/2017 16:08:01 by: Ernesto Gibbs MD, RVPI Invalid Interpretation Code [facility] RAD Echocardiogram complete w contrast Interface, Rad In [facility] - 11/21/2017 4:38 PM EDT Transthoracic Echocardiogram Patient: CLAYTON Mccollum [facility] Rec#: [id number] (Age): 1945(72y) Height: 170(cm)/66(in) Study Date: 11/21/2017 Weight: 110(kg)/242(lbs Room#: BSA: [id number] Type: Outpatient Loc: Sex: M Reading: Ernesto Gibbs MD, RVPI Referring: [facility] BERNAL [facility] ProvidDr. Preston Healy MD Restaurant Supervisor: Yen Yeh RN, [facility] History: Aortic Valve replacement. -#23mm Alfred-EdwardsCor onary artery disease. Diabetes. Hyperlipidemia Hypertension. Myocardial infarction. Other. ObesityS/P CABG. TIA. Study Quality The study quality is poor. Summary: Patient identity verified (pause and confirm). Current HP present on patient chart. Procedure explained and patient verified understanding. Consent obtained for procedure. Definity explained to patient. Patient verbalizes understanding and agrees to proceed. Definity 1.3ml/8.7ml normal sterile saline 2 ml total given IV over 30-60 seconds. Conclusions: Moderate concentric left ventricular hypertrophy is observed.The ejection fraction is calculated to be 62% using the Method of Disks, suspect proximal inferior and posterior hypokinesis The aortic valve is not well visualized.The gradient is normal for the prosthetic valve. The left atrium is moderately dilated.The right ventricle is mild to moderately dilated. The right atrium is moderately dilated. There is mild dilatation of the ascending aorta.4.4 cm Findings Reason For Study: Prosthetic heart valve assessment. (Definity Study) Left Ventricle: The left ventricular chamber size is normal. Moderate concentric left ventricular hypertrophy is observed. The ejection fraction is calculated to be 62% using the Method of Disks. suspect proximal inferior and posterior hypokinesis indeterminate diastolic function The basal inferolateral, basal inferior, and mid inferolateral wall segments are hypokinetic. Left Atrium: The left atrium is moderately dilated. Right Ventricle: The right ventricle is mild to moderately dilated. The right ventricular global systolic function is grossly normal. Right Atrium: The right atrium is moderately dilated. Aortic Valve: The aortic valve is not well visualized. There is mild dilatation of the aortic root. The mean gradient of the aortic valve is 16 mmHg. The aortic valve peak velocity is 2.69 m/sec. There is a trace of aortic regurgitation. The gradient is normal for the prosthetic valve. Mitral Valve: The mitral valve leaflets appear normal. There is moderate mitral annular calcification. Moderate mitral leaflet calcification is visualized. The chordae is moderately thickened. The chordae is moderately calcified. No significant insufficiency. Tricuspid Valve: The tricuspid valve leaflets are normal. The right ventricular systolic pressure is 27.71 mmHg. No significant insufficiency. Pulmonic Valve: The pulmonic valve appears normal. No significant insufficiency. Pericardium: There is no pericardial effusion. Aorta: There is mild dilatation of the ascending aorta. Venous: The inferior vena cava appears normal in size. There is a greater than 50% respiratory change in the inferior vena cava dimension. The flow patterns of the pulmonary veins were consistent with systolic blunting. HR BP 118/74 Measurements Chambers MM Name Value Normal Range Ao root diameter (MM) 4.3 cm none Ao root diameter (MM) index 1.96 cm/m2 none Chambers 2D Name Value Normal Range RVIDd (AP) 4.8 cm none IVSd (2D) 2.13 cm none LVPWd (2D) 1.82 cm none IVS:LVPW ratio (2D) 1.17 ratio none LVIDd (2D) 3.68 cm none LVIDs (2D) 2.46 cm none LVIDd (2D) index 1.68 cm/m2 none LVIDs (2D) index 1.12 cm/m2 none LV FS (2D) 33.15 % none LV FS (Teichholz) (2D) 33.2 % none LV FS (cube) (2D) 33.2 % none LV EF (2D) 62 % (60 - 100) EF Teichholz (2D) 62.63 % none Ao root diameter (2D) 4.4 cm none Aortic root diameter (2D) inde2.01 cm/m2 none Volumes/Mass Name Value Normal Range LA ESV SP 4CH (MOD) 86 ml none LA ESV SP 2CH (MOD) 93 ml none LA ESV BP (MOD) 89 ml none LA ESV BP (MOD) index 40.58 ml/m2 none LV EDV SP 4CH (MOD) 184 ml none LV ESV SP 4CH (MOD) 67 ml none EF SP 4CH (MOD) 63.59 % none LV EDV SP 2CH (MOD) 183 ml none LV ESV SP 2CH (MOD) 66 ml none EF SP 2CH (MOD) 63.93 % none LV EDV BP 184 ml none LV ESV BP 69 ml none BP EF (MOD) 62.5 % none LV EDV BP index 83.9 ml/m2 none LV ESV BP index 31.46 ml/m2 none LV mass (2D) 328.71 g none LV mass (2D) index 149.89 g/m2 none RWT 1 ratio none Diastolic/Systolic Function Name Value Normal Range MV E-wave Vmax 1.09 m/sec none MV deceleration time 264 msec none MV A-wave Vmax 0.76 m/sec none MV E:A ratio 1.44 ratio (1.1 - 1.5) LV septal e' Vmax 0.05 m/sec none LV lateral e' Vmax 0.08 m/sec none LV average e' Vmax 0.06 m/sec none LV E:e' septal ratio 21.63 ratio none LV E:e' lateral ratio 14.19 ratio none LV average E:e' ratio 17.14 ratio none TAPSE 2 cm none Aortic Valve Name Value Normal Range AV Vmax 2.69 m/sec (1 - 1.7) AV VTI 55.8 cm none AV peak gradient 28.94 mmHg (Less Than 36) AV mean gradient 16 mmHg (Less Than 20) LVOT diameter 2.3 cm (1.7 - 2.5) LVOT Vmax 0.94 m/sec (0.7 - 1.1) LVOT VTI 20.5 cm none LVOT peak gradient 4 mmHg none LVOT mean gradient 2 mmHg none DOI (VTI) 0.37 ratio none DOI (Vmax) 0.35 ratio none SV LVOT 85.13 ml none ALINE (continuity Vmax) 1.45 cm2 none ALINE (continuity Vmax) index 0.66 cm2/m2 none ALINE (continuity VTI) 1.53 cm2 none ALINE (continuity VTI) index 0.7 cm2/m2 none Mitral Valve Name Value Normal Range MV Vmax 1.36 m/sec (0.6 - 1.3) MV VTI 40 cm none MV peak gradient 7.4 mmHg none MV mean gradient 3 mmHg none MV PHT 92 msec none MVA (PHT) 2.39 cm2 none MVA (continuity VTI) 2.13 cm2 none Tricuspid Valve Name Value Normal Range TR Vmax 2.22 m/sec none TR peak gradient 19.71 mmHg none RAP 8 mmHg none RVSP 27.71 mmHg none Pulmonic Valve/Qp:Qs Name Value Normal Range PV Vmax 0.88 m/sec (0.6 - 0.9) PV VTI 16.3 cm none PV peak gradient 3.11 mmHg none PV mean gradient 1 mmHg none Electronically Signed at 11/21/2017 16:08:01 by: Ernesto Gibbs MD, RVPI Invalid Interpretation Code [facility] [place] RAD Vital Signs Date Time Vital Sign Value Performing Clinician Facility 02-18-2025 20:15-0400 Heart rate 82 /min Dr. Gaetano Menendez MD Work Phone: [facility] 02-18-2025 20:15-0400 Respiratory rate 16 /min Dr. Gaetano Menendez MD Work Phone: [facility] 02-18-2025 20:15-0400 SaO2% (BldA) [Mass fraction] 95 % Dr. Gaetano Menendez MD Work Phone: [facility] 02-18-2025 14:30-0400 Body temperature 97.2 [degF] Dr. Gaetano Menendez MD Work Phone: [facility] 02-18-2025 14:30-0400 Diastolic blood pressure 45 mm[Hg] Dr. Gaetano Menendez MD Work Phone: [facility] 02-18-2025 14:30-0400 Systolic blood pressure 98 mm[Hg] Dr. Gaetano Menendez MD Work Phone: [facility] 02-18-2025 13:35-0400 Body temperature 98.1 [degF] Dr. Gaetano Menendez MD Work Phone: [facility] 02-18-2025 13:35-0400 Diastolic blood pressure 55 mm[Hg] Dr. Gaetano Menendez MD Work Phone: [facility] 02-18-2025 13:35-0400 Heart rate 71 /min Dr. Gaetano Menendez MD Work Phone: [facility] 02-18-2025 13:35-0400 Respiratory rate 16 /min Dr. Gaetano Menendez MD Work Phone: [facility] 02-18-2025 13:35-0400 SaO2% (BldA) [Mass fraction] 93 % Dr. Geatano Menendez MD Work Phone: [facility] 02-18-2025 13:35-0400 Systolic blood pressure 106 mm[Hg] Dr. Gaetano Menendez MD Work Phone: [facility] 02-18-2025 13:21-0400 Body height 170.[address] Gaetano Menendez MD Work Phone: [facility] 02-18-2025 13:21-0400 Body weight 97.[address] Gaetano Menendez MD Work Phone: [facility] 02-18-2025 12:18-0400 Body mass index (BMI) [Ratio] 33.6 kg/m2 Dr. Gaetano Menendez MD Work Phone: [facility] 02-18-2025 12:18-0400 Body weight 97.[address] Gaetano Menendez MD Work Phone: [facility] 02-18-2025 08:37-0400 Body mass index (BMI) [Ratio] 33.5 kg/m2 Dr. Gaetano Menendez MD Work Phone: [facility] 02-09-2025 11:43-0400 Body temperature 98.49 [degF] Kelly Burton MD Work Phone: [facility] 02-09-2025 11:43-0400 Diastolic blood pressure 55 mm[Hg] Kelly Burton MD Work Phone: [facility] 02-09-2025 11:43-0400 Heart rate 85 /min Kelly Burton MD Work Phone: [facility] 02-09-2025 11:43-0400 Respiratory rate 24 /min Kelly Burton MD Work Phone: [facility] 02-09-2025 11:43-0400 SaO2% (BldA) [Mass fraction] 94 % Kelly Burton MD Work Phone: [facility] 02-09-2025 11:43-0400 Systolic blood pressure 100 mm[Hg] Kelly Burton MD Work Phone: [facility] 02-09-2025 06:13-0400 Body mass index (BMI) [Ratio] 32.73 kg/m2 Kelly Burton MD Work Phone: [facility] 02-09-2025 06:13-0400 Body weight 94.8 kg Kelly Burton MD Work Phone: [facility] 01-29-2025 00:04-0400 Body height 170.2 cm Kelly Burton MD Work Phone: [facility] 01-28-2025 10:58-0400 Body height 170.2 cm Bradley Moore MD Work Phone: [facility] 01-28-2025 10:58-0400 Body mass index (BMI) [Ratio] 34.46 kg/m2 Bradley Moore MD Work Phone: [facility] 01-28-2025 10:58-0400 Body weight 99.79 kg Bradley Moore MD Work Phone: [facility] 11-21-2024 11:06-0400 Body temperature 98.1 [degF] Hola Arroyo Jr. DPM Work Phone: [facility] 11-21-2024 11:06-0400 Diastolic blood pressure 78 mm[Hg] Hola Arroyo Jr. DPM Work Phone: [facility] 11-21-2024 11:06-0400 Heart rate 79 /min Hola Arroyo Jr. DPM Work Phone: [facility] 11-21-2024 11:06-0400 Systolic blood pressure 121 mm[Hg] Hola Arroyo Jr. DPM Work Phone: [facility] 11-12-2024 08:50-0400 Body mass index (BMI) [Ratio] 34.99 kg/m2 Radha Hughes CNP Work Phone: [facility] 11-12-2024 08:50-0400 Body weight 101.33 kg Radha Hughes EXCELLENCE MANAGER Work Phone: [facility] 11-12-2024 08:50-0400 Diastolic blood pressure 71 mm[Hg] Radha Hughes EXCELLENCE MANAGER Work Phone: [facility] 11-12-2024 08:50-0400 Heart rate 99 /min Radha Hughes EXCELLENCE MANAGER Work Phone: [facility] 11-12-2024 08:50-0400 Systolic blood pressure 109 mm[Hg] Radha Hughes EXCELLENCE MANAGER Work Phone: [facility] 10-30-2024 08:38-0400 Body height 170.2 cm Liliya Shank EXCELLENCE MANAGER Work Phone: [facility] 10-30-2024 08:38-0400 Body mass index (BMI) [Ratio] 35.07 kg/m2 Liliya Shank EXCELLENCE MANAGER Work Phone: [facility] 10-30-2024 08:38-0400 Body temperature 97.81 [degF] Liliya Shank EXCELLENCE MANAGER Work Phone: [facility] 10-30-2024 08:38-0400 Body weight 101.56 kg Liliya Shank EXCELLENCE MANAGER Work Phone: [facility] 10-30-2024 08:38-0400 Diastolic blood pressure 72 mm[Hg] Liliya Shank EXCELLENCE MANAGER Work Phone: [facility] 10-30-2024 08:38-0400 Heart rate 85 /min Liliya Shank EXCELLENCE MANAGER Work Phone: [facility] 10-30-2024 08:38-0400 Respiratory rate 16 /min Liliya Shank EXCELLENCE MANAGER Work Phone: [facility] 10-30-2024 08:38-0400 SaO2% (BldA) [Mass fraction] 96 % Liliya Shank EXCELLENCE MANAGER Work Phone: [facility] 10-30-2024 08:38-0400 Systolic blood pressure 128 mm[Hg] Liliya Shank EXCELLENCE MANAGER Work Phone: [facility] 10-19-2024 08:50-0400 Body height 170.2 cm Preston Healy MD Work Phone: [facility] 10-19-2024 08:50-0400 Body mass index (BMI) [Ratio] 34.3 kg/m2 Preston Healy MD Work Phone: [facility] 10-19-2024 08:50-0400 Body weight 99.34 kg Preston Healy MD Work Phone: [facility] 10-19-2024 08:50-0400 Diastolic blood pressure 51 mm[Hg] Preston Healy MD Work Phone: [facility] 10-19-2024 08:50-0400 Heart rate 79 /min Preston Healy MD Work Phone: [facility] 10-19-2024 08:50-0400 SaO2% (BldA) [Mass fraction] 92 % Preston Healy MD Work Phone: [facility] 10-19-2024 08:50-0400 Systolic blood pressure 106 mm[Hg] Preston Healy MD Work Phone: [facility] 06-06-2024 10:59-0500 Body height 170.2 cm Vivien Foreman MD Work Phone: [facility] 06-06-2024 10:59-0500 Body mass index (BMI) [Ratio] 33.99 kg/m2 Vivien Foreman MD Work Phone: [facility] 06-06-2024 10:59-0500 Body temperature 98.01 [degF] Vivien Foreman MD Work Phone: [facility] 06-06-2024 10:59-0500 Body weight 98.43 kg Vivien Foreman MD Work Phone: [facility] 06-06-2024 10:59-0500 Diastolic blood pressure 78 mm[Hg] Vivien Foreman MD Work Phone: [facility] 06-06-2024 10:59-0500 Heart rate 62 /min Vivien Foreman MD Work Phone: [facility] 06-06-2024 10:59-0500 Respiratory rate 16 /min Vivien Foreman MD Work Phone: [facility] 06-06-2024 10:59-0500 SaO2% (BldA) [Mass fraction] 97 % Vivien Foreman MD Work Phone: [facility] 06-06-2024 10:59-0500 Systolic blood pressure 128 mm[Hg] Vivien Foreman MD Work Phone: [facility] 05-23-2024 11:06-0500 Body temperature 98.2 [degF] Hola Arroyo Jr., DPM Work Phone: [facility] 05-23-2024 11:06-0500 Diastolic blood pressure 62 mm[Hg] Hola Arroyo Jr., DPM Work Phone: [facility] 05-23-2024 11:06-0500 Heart rate 82 /min Hola Arroyo Jr., DPM Work Phone: [facility] 05-23-2024 11:06-0500 Systolic blood pressure 119 mm[Hg] Hola Arroyo Jr., DPM Work Phone: [facility] 05-18-2024 08:27-0500 Diastolic blood pressure 69 mm[Hg] Radha Hughes EXCELLENCE MANAGER Work Phone: [facility] 05-18-2024 08:27-0500 Heart rate 93 /min Radha Hughes EXCELLENCE MANAGER Work Phone: [facility] 05-18-2024 08:27-0500 Systolic blood pressure 136 mm[Hg] Radha Hughes EXCELLENCE MANAGER Work Phone: [facility] 05-18-2024 08:15-0500 Body mass index (BMI) [Ratio] 34.85 kg/m2 Radha Hughes EXCELLENCE MANAGER Work Phone: [facility] 05-18-2024 08:15-0500 Body weight 100.92 kg Radha Hughes EXCELLENCE MANAGER Work Phone: [facility] 02-22-2024 13:47-0400 Body temperature 97.59 [degF] Hola Mohrn Jr., DPM Work Phone: [facility] 02-22-2024 13:47-0400 Diastolic blood pressure 66 mm[Hg] Hola Mohrn Jr., DPM Work Phone: [facility] 02-22-2024 13:47-0400 Heart rate 109 /min Hola Mohrn Jr., DPM Work Phone: [facility] 02-22-2024 13:47-0400 Systolic blood pressure 100 mm[Hg] Hola Arroyo Jr., DPM Work Phone: [facility] 01-26-2024 09:26-0400 Diastolic blood pressure 70 mm[Hg] W. Megganske III, DO Work Phone: [facility] 01-26-2024 09:26-0400 Systolic blood pressure 110 mm[Hg] W. Craske III, DO Work Phone: [facility] 01-26-2024 09:23-0400 Body mass index (BMI) [Ratio] 35.24 kg/m2 W. Craske III, DO Work Phone: [facility] 01-26-2024 09:23-0400 Body weight 102.06 kg W. Craske III, DO Work Phone: [facility] 01-26-2024 09:23-0400 Heart rate 81 /min W. Craske III, DO Work Phone: [facility] 01-26-2024 09:23-0400 SaO2% (BldA) [Mass fraction] 97 % W. Craske III, DO Work Phone: [facility] 12-09-2023 08:46-0400 Body mass index (BMI) [Ratio] 36.81 kg/m2 Radha Hughes EXCELLENCE MANAGER Work Phone: [facility] 12-09-2023 08:46-0400 Body weight 106.59 kg Radha Hughes EXCELLENCE MANAGER Work Phone: [facility] 12-09-2023 08:46-0400 Diastolic blood pressure 88 mm[Hg] Radha Hughes EXCELLENCE MANAGER Work Phone: [facility] 12-09-2023 08:46-0400 Heart rate 93 /min Radha Hughes EXCELLENCE MANAGER Work Phone: [facility] 12-09-2023 08:46-0400 Systolic blood pressure 135 mm[Hg] Radha Hughes EXCELLENCE MANAGER Work Phone: [facility] 11-29-2023 07:27-0400 Body height 170.2 cm Vivien Foreman MD Work Phone: [facility] 11-29-2023 07:27-0400 Body mass index (BMI) [Ratio] 35.4 kg/m2 Vivien Foreman MD Work Phone: [facility] 11-29-2023 07:27-0400 Body temperature 98.2 [degF] Vivien Foreman MD Work Phone: [facility] 11-29-2023 07:27-0400 Body weight 102.51 kg Vivien Foreman MD Work Phone: [facility] 11-29-2023 07:27-0400 Diastolic blood pressure 72 mm[Hg] Vivien Foreman MD Work Phone: [facility] 11-29-2023 07:27-0400 Heart rate 54 /min Vivien Foreman MD Work Phone: [facility] 11-29-2023 07:27-0400 Respiratory rate 16 /min Vivien Foreman MD Work Phone: [facility] 11-29-2023 07:27-0400 SaO2% (BldA) [Mass fraction] 93 % Vivien Foreman MD Work Phone: [facility] 11-29-2023 07:27-0400 Systolic blood pressure 134 mm[Hg] Vivien Foreman MD Work Phone: [facility] 11-23-2023 10:27-0400 Diastolic blood pressure 66 mm[Hg] Hola Mohrcecile [place], DPM Work Phone: [facility] 11-23-2023 10:27-0400 Heart rate 85 /min Hola Arroyo Jr., DPM Work Phone: [facility] 11-23-2023 10:27-0400 Systolic blood pressure 102 mm[Hg] Hola Mohrcecile Rhodes., DPM Work Phone: [facility] 11-23-2023 10:00-0400 Body temperature 97.9 [degF] Hola Mohrcecile Rhodes., DPM Work Phone: [facility] 11-23-2023 10:00-0400 SaO2% (BldA) [Mass fraction] 93 % Hola Mohrcecile [place], DPM Work Phone: [facility] 11-11-2023 09:38-0400 Diastolic blood pressure 53 mm[Hg] Preston Healy MD Work Phone: [facility] 11-11-2023 09:38-0400 Systolic blood pressure 98 mm[Hg] Preston Healy MD Work Phone: [facility] 11-11-2023 09:33-0400 Body height 170.2 cm Preston Healy MD Work Phone: [facility] 11-11-2023 09:33-0400 Body mass index (BMI) [Ratio] 35.4 kg/m2 Preston Healy MD Work Phone: [facility] 11-11-2023 09:33-0400 Body weight 102.51 kg Preston Healy MD Work Phone: [facility] 11-11-2023 09:33-0400 Heart rate 83 /min Preston Healy MD Work Phone: [facility] 11-11-2023 09:33-0400 SaO2% (BldA) [Mass fraction] 92 % Preston Healy MD Work Phone: [facility] 10-27-2023 09:38-0400 Diastolic blood pressure 67 mm[Hg] W. Craske III, DO Work Phone: [facility] 10-27-2023 09:38-0400 Heart rate 88 /min W. Craske III, DO Work Phone: [facility] 10-27-2023 09:38-0400 Systolic blood pressure 103 mm[Hg] W. Craske III, DO Work Phone: [facility] 10-27-2023 09:28-0400 Body height 170.2 cm W. Craske III, DO Work Phone: [facility] 10-27-2023 09:28-0400 Body mass index (BMI) [Ratio] 35.87 kg/m2 W. Craske III, DO Work Phone: [facility] 10-27-2023 09:28-0400 Body weight 103.87 kg W. Craske III, DO Work Phone: [facility] 08-08-2023 11:00-0500 Body height 170.2 cm Besslaura Villanueva [facility] 08-08-2023 11:00-0500 Body mass index (BMI) [Ratio] 37.75 kg/m2 Bessrobby Villanueva [facility] 08-08-2023 11:00-0500 Body weight 109.32 kg Bessrobby Aguilars [facility] 07-28-2023 08:54-0500 Diastolic blood pressure 77 mm[Hg] W. Craske III, DO Work Phone: [facility] 07-28-2023 08:54-0500 Heart rate 85 /min W. Craske III, DO Work Phone: [facility] 07-28-2023 08:54-0500 Systolic blood pressure 123 mm[Hg] W. Craske III, DO Work Phone: [facility] 07-28-2023 08:46-0500 Body height 170.2 cm WLaquita Craske III, DO Work Phone: [facility] 07-28-2023 08:46-0500 Body mass index (BMI) [Ratio] 37.75 kg/m2 W. Craske III, DO Work Phone: [facility] 07-28-2023 08:46-0500 Body weight 109.32 kg W. Megganske III, DO Work Phone: [facility] 06-30-2023 09:42-0500 Diastolic blood pressure 70 mm[Hg] W. Megganske III, DO Work Phone: [facility] 06-30-2023 09:42-0500 Heart rate 86 /min WLaquita Broderickske III, DO Work Phone: [facility] 06-30-2023 09:42-0500 Systolic blood pressure 121 mm[Hg] W. Megganske III, DO Work Phone: [facility] 06-30-2023 09:34-0500 Body height 170.2 cm WLaquita Broderickske III, DO Work Phone: [facility] 06-30-2023 09:34-0500 Body mass index (BMI) [Ratio] 36.65 kg/m2 W. Craske III, DO Work Phone: [facility] 06-30-2023 09:34-0500 Body weight 106.14 kg WLauqita Broderickske III, DO Work Phone: [facility] 06-06-2023 09:17-0500 Diastolic blood pressure 70 mm[Hg] Radha Hughes EXCELLENCE MANAGER Work Phone: [facility] 06-06-2023 09:17-0500 Systolic blood pressure 128 mm[Hg] Radha Hughes EXCELLENCE MANAGER Work Phone: [facility] 06-06-2023 08:56-0500 Body mass index (BMI) [Ratio] 37.32 kg/m2 Radha Hughes EXCELLENCE MANAGER Work Phone: [facility] 11-27-2023 08:56-0500 Body weight 108.09 kg Radah Hughes EXCELLENCE MANAGER Work Phone: [facility] 06-06-2023 08:56-0500 Heart rate 74 /min Radha Hughes EXCELLENCE MANAGER Work Phone: [facility] 05-13-2023 07:59-0400 Body temperature 97.5 [degF] Hola Mohrn ., DPM Work Phone: [facility] 05-13-2023 07:59-0400 Diastolic blood pressure 68 mm[Hg] Hola Cruz Jr., DPM Work Phone: [facility] 05-13-2023 07:59-0400 Heart rate 86 /min Holacaron Arroyo Jr., DPM Work Phone: [facility] 05-13-2023 07:59-0400 Systolic blood pressure 115 mm[Hg] Hola Arroyo Jr., DPM Work Phone: [facility] 03-04-2023 08:10-0400 Body height 170.2 cm Preston Healy MD Work Phone: [facility] 03-04-2023 08:10-0400 Body mass index (BMI) [Ratio] 36.18 kg/m2 Preston Healy MD Work Phone: [facility] 03-04-2023 08:10-0400 Body weight 104.78 kg Preston Healy MD Work Phone: [facility] 03-04-2023 08:10-0400 Diastolic blood pressure 79 mm[Hg] Preston Healy MD Work Phone: [facility] 03-04-2023 08:10-0400 Heart rate 84 /min Preston Healy MD Work Phone: [facility] 03-04-2023 08:10-0400 SaO2% (BldA) [Mass fraction] 93 % Preston Healy MD Work Phone: [facility] 03-04-2023 08:10-0400 Systolic blood pressure 123 mm[Hg] Preston Healy MD Work Phone: [facility] 01-21-2023 09:42-0400 Body height 170.2 cm Vivien Foreman MD Work Phone: [facility] 01-21-2023 09:42-0400 Body mass index (BMI) [Ratio] 35.87 kg/m2 Vivien Foreman MD Work Phone: [facility] 01-21-2023 09:42-0400 Body temperature 98.01 [degF] Vivien Foreman MD Work Phone: [facility] 01-21-2023 09:42-0400 Body weight 103.87 kg Vivien Foreman MD Work Phone: [facility] 01-21-2023 09:42-0400 Diastolic blood pressure 66 mm[Hg] Vivien Foreman MD Work Phone: [facility] 01-21-2023 09:42-0400 Heart rate 83 /min Vivien Foreman MD Work Phone: [facility] 01-21-2023 09:42-0400 Respiratory rate 16 /min Vivien Foreman MD Work Phone: [facility] 01-21-2023 09:42-0400 SaO2% (BldA) [Mass fraction] 92 % Vivien Foreman MD Work Phone: [facility] 01-21-2023 09:42-0400 Systolic blood pressure 115 mm[Hg] Vivien Foreman MD Work Phone: [facility] 01-07-2023 08:05-0400 Body temperature 98.4 [degF] Hola Arroyo Jr. DPOlegario Work Phone: [facility] 01-07-2023 08:05-0400 Diastolic blood pressure 74 mm[Hg] Hola Arroyo Jr. DPOlegario Work Phone: [facility] 01-07-2023 08:05-0400 Heart rate 83 /min Hola Arroyo Jr., DPM Work Phone: [facility] 01-07-2023 08:05-0400 Systolic blood pressure 114 mm[Hg] Holaobed Arroyo Jr., DPM Work Phone: [facility] 12-09-2022 08:37-0400 Diastolic blood pressure 77 mm[Hg] WLaquita Broderickske III, DO Work Phone: [facility] 12-09-2022 08:37-0400 Heart rate 97 /min WLaquita Broderickske III, DO Work Phone: [facility] 12-09-2022 08:37-0400 Systolic blood pressure 144 mm[Hg] WLaquita Craske III, DO Work Phone: [facility] 12-09-2022 08:28-0400 Body height 170.2 cm WLaquita Craske III, DO Work Phone: [facility] 12-09-2022 08:28-0400 Body mass index (BMI) [Ratio] 35.24 kg/m2 WLaquita Craske III, DO Work Phone: [facility] 12-09-2022 08:28-0400 Body weight 102.06 kg WLaquita Broderickske III, DO Work Phone: [facility] 07-23-2022 12:29-0500 Body height 170.2 cm Vivien Foreman MD Work Phone: [facility] 07-23-2022 12:29-0500 Body mass index (BMI) [Ratio] 35.32 kg/m2 Vivien Foreman MD Work Phone: [facility] 07-23-2022 12:29-0500 Body temperature 98.1 [degF] Vivien Foreman MD Work Phone: [facility] 07-23-2022 12:29-0500 Body weight 102.29 kg Vivien Foreman MD Work Phone: [facility] 07-23-2022 12:29-0500 Diastolic blood pressure 63 mm[Hg] Vivien Foreman MD Work Phone: [facility] 07-23-2022 12:29-0500 Heart rate 73 /min Vivien Foreman MD Work Phone: [facility] 07-23-2022 12:29-0500 Respiratory rate 16 /min Vivien Foreman MD Work Phone: [facility] 07-23-2022 12:29-0500 SaO2% (BldA) [Mass fraction] 96 % Vivien Foreman MD Work Phone: [facility] 07-23-2022 12:29-0500 Systolic blood pressure 119 mm[Hg] Vivien Foreman MD Work Phone: [facility] 07-09-2022 08:21-0500 Diastolic blood pressure 70 mm[Hg] Hola Arroyo Jr., DPM Work Phone: [facility] 07-09-2022 08:21-0500 Heart rate 67 /min Hola Arroyo Jr., DPM Work Phone: [facility] 07-09-2022 08:21-0500 Systolic blood pressure 122 mm[Hg] Hola Arroyo Jr., DPM Work Phone: [facility] 07-09-2022 08:16-0500 Body temperature 96.8 [degF] Hola Arroyo Jr., DPM Work Phone: [facility] 06-14-2022 08:05-0500 Diastolic blood pressure 62 mm[Hg] Vivien Foreman MD Work Phone: [facility] 06-14-2022 08:05-0500 Systolic blood pressure 104 mm[Hg] Vivien Foreman MD Work Phone: [facility] 06-14-2022 08:04-0500 Body height 170.2 cm Vivien Foreman MD Work Phone: [facility] 06-14-2022 08:04-0500 Body mass index (BMI) [Ratio] 35.01 kg/m2 Vivien Foreman MD Work Phone: [facility] 06-14-2022 08:04-0500 Body temperature 97.81 [degF] Vivien Foreman MD Work Phone: [facility] 06-14-2022 08:04-0500 Body weight 101.38 kg Vivien Foreman MD Work Phone: [facility] 06-14-2022 08:04-0500 Heart rate 87 /min Vivien Foreman MD Work Phone: [facility] 06-14-2022 08:04-0500 Respiratory rate 18 /min Vivien Foreman MD Work Phone: [facility] 06-14-2022 08:04-0500 SaO2% (BldA) [Mass fraction] 92 % Vivien Foreman MD Work Phone: [facility] Comment on above: room air 05-14-2022 08:25-0400 Body height 170.2 cm Preston Healy MD Work Phone: [facility] 05-14-2022 08:25-0400 Body mass index (BMI) [Ratio] 34.14 kg/m2 Preston Healy MD Work Phone: [facility] 05-14-2022 08:25-0400 Body weight 98.88 kg Preston Healy MD Work Phone: [facility] 05-14-2022 08:25-0400 Diastolic blood pressure 68 mm[Hg] Preston Healy MD Work Phone: [facility] 05-14-2022 08:25-0400 Heart rate 79 /min Preston Healy MD Work Phone: [facility] 05-14-2022 08:25-0400 SaO2% (BldA) [Mass fraction] 93 % Preston Healy MD Work Phone: [facility] 05-14-2022 08:25-0400 Systolic blood pressure 126 mm[Hg] Preston Healy MD Work Phone: [facility] 04-07-2022 07:58-0400 Body temperature 96.69 [degF] Hola Arroyo Jr., DPM Work Phone: [facility] 04-07-2022 07:58-0400 Diastolic blood pressure 77 mm[Hg] Hola Mohrn Jr., DPM Work Phone: [facility] 04-07-2022 07:58-0400 Heart rate 72 /min Hola Arroyo Jr., DPM Work Phone: [facility] 04-07-2022 07:58-0400 Systolic blood pressure 129 mm[Hg] Hola Arroyo Jr., DPM Work Phone: [facility] 03-17-2022 14:20-0400 Diastolic blood pressure 73 mm[Hg] W. Craske III, DO Work Phone: [facility] 03-17-2022 14:20-0400 Heart rate 80 /min W. Craske III, DO Work Phone: [facility] 03-17-2022 14:20-0400 Systolic blood pressure 112 mm[Hg] W. Craske III, DO Work Phone: [facility] 03-17-2022 14:14-0400 Body height 170.2 cm W. Craske III, DO Work Phone: [facility] 03-17-2022 14:14-0400 Body mass index (BMI) [Ratio] 34.14 kg/m2 W. Craske III, DO Work Phone: [facility] 03-17-2022 14:14-0400 Body weight 98.88 kg W. Craske III, DO Work Phone: [facility] 02-22-2022 07:54-0400 Body height 170.2 cm Vivien Foreman MD Work Phone: [facility] 02-22-2022 07:54-0400 Body mass index (BMI) [Ratio] 34.14 kg/m2 Vivien Foreman MD Work Phone: [facility] 02-22-2022 07:54-0400 Body temperature 98.01 [degF] Vivien Foreman MD Work Phone: [facility] 02-22-2022 07:54-0400 Body weight 98.88 kg Vivien Foreman MD Work Phone: [facility] 02-22-2022 07:54-0400 Diastolic blood pressure 70 mm[Hg] Vivien Foreman MD Work Phone: [facility] 02-22-2022 07:54-0400 Heart rate 64 /min Vivien Foreman MD Work Phone: [facility] 02-22-2022 07:54-0400 SaO2% (BldA) [Mass fraction] 97 % Vivien Foreman MD Work Phone: [facility] 02-22-2022 07:54-0400 Systolic blood pressure 132 mm[Hg] Vivien Foreman MD Work Phone: [facility] 02-19-2022 08:06-0400 Body mass index (BMI) [Ratio] 33.99 kg/m2 Radha Hughes CNP Work Phone: [facility] 02-19-2022 08:06-0400 Body weight 98.43 kg Radha Hughes CNP Work Phone: [facility] 02-19-2022 08:06-0400 Diastolic blood pressure 69 mm[Hg] Radha Hughes EXCELLENCE MANAGER Work Phone: [facility] 02-19-2022 08:06-0400 Heart rate 63 /min Radha Hughes EXCELLENCE MANAGER Work Phone: [facility] 02-19-2022 08:06-0400 Systolic blood pressure 136 mm[Hg] Radha Hughes EXCELLENCE MANAGER Work Phone: [facility] 12-23-2021 08:13-0400 Body temperature 97.5 [degF] Hola Cruz Jr., DPM Work Phone: [facility] 12-23-2021 08:13-0400 Diastolic blood pressure 75 mm[Hg] Hola Arroyo Jr., DPM Work Phone: [facility] 12-23-2021 08:13-0400 Heart rate 66 /min Hola Arroyo Jr., DPM Work Phone: [facility] 12-23-2021 08:13-0400 Systolic blood pressure 132 mm[Hg] Hola Arroyo Jr., DPM Work Phone: [facility] 10-12-2021 08:01-0400 Body height 170.2 cm Radha Hughes EXCELLENCE MANAGER Work Phone: [facility] 10-12-2021 08:01-0400 Body mass index (BMI) [Ratio] 36.41 kg/m2 Radha Hughes EXCELLENCE MANAGER Work Phone: [facility] 10-12-2021 08:01-0400 Body weight 105.46 kg Radha Hughes EXCELLENCE MANAGER Work Phone: [facility] 10-12-2021 08:01-0400 Diastolic blood pressure 73 mm[Hg] Radha Hughes EXCELLENCE MANAGER Work Phone: [facility] 10-12-2021 08:01-0400 Heart rate 80 /min Radha Hughes EXCELLENCE MANAGER Work Phone: [facility] 10-12-2021 08:01-0400 Systolic blood pressure 118 mm[Hg] Radhagilson Hughes EXCELLENCE MANAGER Work Phone: [facility] 06-19-2021 08:25-0500 Body height 170.2 cm Preston Healy MD Work Phone: [facility] 06-19-2021 08:25-0500 Body mass index (BMI) [Ratio] 36.65 kg/m2 Preston Healy MD Work Phone: [facility] 06-19-2021 08:25-0500 Body weight 106.14 kg Preston Healy MD Work Phone: [facility] 06-19-2021 08:25-0500 Diastolic blood pressure 68 mm[Hg] Preston Healy MD Work Phone: [facility] 06-19-2021 08:25-0500 Heart rate 73 /min Preston Healy MD Work Phone: [facility] 06-19-2021 08:25-0500 Systolic blood pressure 129 mm[Hg] Preston Healy MD Work Phone: [facility] 06-15-2021 08:47-0500 Body mass index (BMI) [Ratio] 36.79 kg/m2 Radha Hughes EXCELLENCE MANAGER Work Phone: [facility] 06-15-2021 08:47-0500 Body weight 106.55 kg Radha Hughes EXCELLENCE MANAGER Work Phone: [facility] 06-15-2021 08:47-0500 Diastolic blood pressure 78 mm[Hg] Radha Hughes EXCELLENCE MANAGER Work Phone: [facility] 06-15-2021 08:47-0500 Heart rate 91 /min Radha Hughes EXCELLENCE MANAGER Work Phone: [facility] 06-15-2021 08:47-0500 Systolic blood pressure 128 mm[Hg] Radhagilson Hughes EXCELLENCE MANAGER Work Phone: [facility] 06-12-2021 10:11-0500 Body height 170.2 cm Vivien Foreman MD Work Phone: [facility] 06-12-2021 10:11-0500 Body mass index (BMI) [Ratio] 36.74 kg/m2 Vivien Foreman MD Work Phone: [facility] 06-12-2021 10:11-0500 Body temperature 97.9 [degF] Vivien Foreman MD Work Phone: [facility] 06-12-2021 10:11-0500 Body weight 106.41 kg Vivien Foreman MD Work Phone: [facility] 06-12-2021 10:11-0500 Diastolic blood pressure 83 mm[Hg] Vivien Foreman MD Work Phone: [facility] 06-12-2021 10:11-0500 Heart rate 90 /min Vivien Foreman MD Work Phone: [facility] 06-12-2021 10:11-0500 Respiratory rate 18 /min Vivien Foreman MD Work Phone: [facility] 06-12-2021 10:11-0500 SaO2% (BldA) [Mass fraction] 94 % Vivien Foreman MD Work Phone: [facility] 06-12-2021 10:11-0500 Systolic blood pressure 129 mm[Hg] Vivien Foreman MD Work Phone: [facility] 03-25-2021 08:09-0400 Body temperature 96.8 [degF] Hola Arroyo Jr., DPM Work Phone: [facility] 03-25-2021 08:09-0400 Diastolic blood pressure 72 mm[Hg] Hola Arroyo Jr., DPM Work Phone: [facility] 03-25-2021 08:09-0400 Heart rate 81 /min Hola Arroyo Jr., DPM Work Phone: [facility] 03-25-2021 08:09-0400 Systolic blood pressure 137 mm[Hg] Hola Arroyo Jr., DPM Work Phone: [facility] 03-02-2021 09:53-0400 Body height 170.2 cm Vivien Foreman MD Work Phone: [facility] 03-02-2021 09:53-0400 Body mass index (BMI) [Ratio] 36.18 kg/m2 Vivien Foreman MD Work Phone: [facility] 03-02-2021 09:53-0400 Body temperature 99 [degF] Vivien Foreman MD Work Phone: [facility] 03-02-2021 09:53-0400 Body weight 104.78 kg Vivien Foreman MD Work Phone: [facility] 03-02-2021 09:53-0400 Diastolic blood pressure 62 mm[Hg] Vivien Foreman MD Work Phone: [facility] 03-02-2021 09:53-0400 Heart rate 83 /min Vivien Foreman MD Work Phone: [facility] 03-02-2021 09:53-0400 Respiratory rate 16 /min Vivien Foreman MD Work Phone: [facility] 03-02-2021 09:53-0400 SaO2% (BldA) [Mass fraction] 96 % Vivien Foreman MD Work Phone: [facility] 03-02-2021 09:53-0400 Systolic blood pressure 120 mm[Hg] Vivien Foreman MD Work Phone: [facility] 03-02-2021 09:13-0400 Diastolic blood pressure 75 mm[Hg] Radha Hughes EXCELLENCE MANAGER Work Phone: [facility] 03-02-2021 09:13-0400 Heart rate 92 /min Radha Hughes EXCELLENCE MANAGER Work Phone: [facility] 03-02-2021 09:13-0400 Systolic blood pressure 133 mm[Hg] Radha Hughes EXCELLENCE MANAGER Work Phone: [facility] 03-02-2021 09:06-0400 Body height 170.2 cm Radha Hughes EXCELLENCE MANAGER Work Phone: [facility] 03-02-2021 09:06-0400 Body mass index (BMI) [Ratio] 36.31 kg/m2 Radha Hughes EXCELLENCE MANAGER Work Phone: [facility] 03-02-2021 09:06-0400 Body weight 105.14 kg Radha Hughes EXCELLENCE MANAGER Work Phone: [facility] 02-27-2021 08:26-0400 Body height 170.2 cm Preston Healy MD Work Phone: [facility] 02-27-2021 08:26-0400 Body mass index (BMI) [Ratio] 36.34 kg/m2 Preston Healy MD Work Phone: [facility] 02-27-2021 08:26-0400 Body weight 105.23 kg Preston Healy MD Work Phone: [facility] 02-27-2021 08:26-0400 Diastolic blood pressure 64 mm[Hg] Preston Healy MD Work Phone: [facility] 02-27-2021 08:26-0400 Heart rate 78 /min Preston Healy MD Work Phone: [facility] 02-27-2021 08:26-0400 SaO2% (BldA) [Mass fraction] 95 % Preston Healy MD Work Phone: [facility] 02-27-2021 08:26-0400 Systolic blood pressure 117 mm[Hg] Preston Healy MD Work Phone: [facility] 01-09-2021 08:31-0400 Body height 170.2 cm Preston Healy MD Work Phone: [facility] 01-09-2021 08:31-0400 Body mass index (BMI) [Ratio] 33.83 kg/m2 Preston Healy MD Work Phone: [facility] 01-09-2021 08:31-0400 Body weight 97.98 kg Preston Healy MD Work Phone: [facility] 01-09-2021 08:31-0400 Diastolic blood pressure 72 mm[Hg] Preston Healy MD Work Phone: [facility] 01-09-2021 08:31-0400 Heart rate 81 /min Preston Healy MD Work Phone: [facility] 01-09-2021 08:31-0400 SaO2% (BldA) [Mass fraction] 93 % Preston Healy MD Work Phone: [facility] 01-09-2021 08:31-0400 Systolic blood pressure 116 mm[Hg] Preston Healy MD Work Phone: [facility] 01-05-2021 09:04-0400 Body height 170.2 cm Radha Hughes EXCELLENCE MANAGER Work Phone: [facility] 01-05-2021 09:04-0400 Body mass index (BMI) [Ratio] 36.15 kg/m2 Radha Hughes EXCELLENCE MANAGER Work Phone: [facility] 01-05-2021 09:04-0400 Body weight 104.7 kg Radha Hughes EXCELLENCE MANAGER Work Phone: [facility] 01-05-2021 09:04-0400 Diastolic blood pressure 77 mm[Hg] Radha Hughes EXCELLENCE MANAGER Work Phone: [facility] 01-05-2021 09:04-0400 Heart rate 77 /min Radha Hughes EXCELLENCE MANAGER Work Phone: [facility] 01-05-2021 09:04-0400 Systolic blood pressure 130 mm[Hg] Radha Hughes EXCELLENCE MANAGER Work Phone: [facility] 01-05-2021 08:20-0400 Body height 170.2 cm Vivien Foreman MD Work Phone: [facility] 01-05-2021 08:20-0400 Body mass index (BMI) [Ratio] 36.15 kg/m2 Vivien Foreman MD Work Phone: [facility] 01-05-2021 08:20-0400 Body temperature 97.81 [degF] Vivien Foreman MD Work Phone: [facility] 01-05-2021 08:20-0400 Body weight 104.69 kg Vivien Foreman MD Work Phone: [facility] 01-05-2021 08:20-0400 Diastolic blood pressure 77 mm[Hg] Vivien Foreman MD Work Phone: [facility] 01-05-2021 08:20-0400 Heart rate 77 /min Vivien Foreman MD Work Phone: [facility] 01-05-2021 08:20-0400 Respiratory rate 16 /min Vivien Foreman MD Work Phone: [facility] 01-05-2021 08:20-0400 SaO2% (BldA) [Mass fraction] 95 % Vivien Foreman MD Work Phone: [facility] 01-05-2021 08:20-0400 Systolic blood pressure 130 mm[Hg] Vivien Foreman MD Work Phone: [facility] 12-16-2020 08:32-0400 Diastolic blood pressure 79 mm[Hg] Vivien Foreman MD Work Phone: [facility] 12-16-2020 08:32-0400 Systolic blood pressure 146 mm[Hg] Vivien Foreman MD Work Phone: [facility] 12-16-2020 08:27-0400 Body height 170.2 cm Vivien Foreman MD Work Phone: [facility] 12-16-2020 08:27-0400 Body mass index (BMI) [Ratio] 36.12 kg/m2 Vivien Foreman MD Work Phone: [facility] 12-16-2020 08:27-0400 Body temperature 97.39 [degF] Vivien Foreman MD Work Phone: [facility] 12-16-2020 08:27-0400 Body weight 104.6 kg Vivien Foreman MD Work Phone: [facility] 12-16-2020 08:27-0400 Heart rate 79 /min Vivien Foreman MD Work Phone: [facility] 12-16-2020 08:27-0400 Respiratory rate 18 /min Vivien Foreman MD Work Phone: [facility] 12-16-2020 08:27-0400 SaO2% (BldA) [Mass fraction] 94 % Vivien Foreman MD Work Phone: [facility] 05-12-2020 09:20-0500 BMI (Body Mass Index) 33.39 kg/m2 Radha [facility] 05-12-2020 09:20-0500 Body weight 96.71 kg Radha [facility] 05-12-2020 09:20-0500 BP Diastolic 69 mm[Hg] Radha [facility] 05-12-2020 09:20-0500 BP Systolic 131 mm[Hg] Radha [facility] 05-12-2020 09:20-0500 Height 170.2 cm Radha [facility] 05-12-2020 09:20-0500 Pulse (Heart Rate) 83 /min Radha [facility] 12-31-2019 14:32-0400 BMI (Body Mass Index) 34.93 kg/m2 Radha [facility] 12-31-2019 14:32-0400 Body weight 101.15 kg Radha [facility] 12-31-2019 14:32-0400 BP Diastolic 72 mm[Hg] Radha [facility] 12-31-2019 14:32-0400 BP Systolic 161 mm[Hg] [facility] 12-31-2019 14:32-0400 Height 170.2 cm Radha [facility] 12-31-2019 14:32-0400 Pulse (Heart Rate) 86 /min Radha [facility] 09-20-2019 08:49-0400 BMI (Body Mass Index) 35.24 kg/m2 Amanda Johnson [facility] 09-20-2019 08:49-0400 Body weight 102.06 kg Amanda Johnson [facility] 09-20-2019 08:49-0400 Height 170.2 cm Amanda Johnson [facility] 07-26-2019 09:30-0500 BMI (Body Mass Index) 33.83 kg/m2 Preston Healy [facility] 07-26-2019 09:30-0500 Body weight 97.98 kg Preston Healy [facility] 07-26-2019 09:30-0500 BP Diastolic 63 mm[Hg] Preston Healy [facility] 07-26-2019 09:30-0500 BP Systolic 111 mm[Hg] Preston Healy [facility] 07-26-2019 09:30-0500 Pulse (Heart Rate) 69 /min Preston Healy [facility] 07-26-2019 09:30-0500 Pulse Oximetry 96 % Preston Healy [facility] 03-01-2019 08:28-0400 BMI (Body Mass Index) 33.05 kg/m2 Radha [facility] 03-01-2019 08:28-0400 Body weight 95.71 kg Radha [facility] 03-01-2019 08:28-0400 BP Diastolic 76 mm[Hg] Rdaha [facility] 03-01-2019 08:28-0400 BP Systolic 129 mm[Hg] Radha Hughes [facility] 03-01-2019 08:28-0400 Height 170.2 cm Radha [facility] 03-01-2019 08:28-0400 [facility] 59 [facility] 16:00-0400 Body Temperature 97.9 [degF] Jenaro [facility] 12-26-2018 15:33-0400 BP Diastolic 74 mm[Hg] Jenaro [facility] 12-26-2018 15:33-0400 BP Systolic 137 mm[Hg] Jenaro [facility] 12-26-2018 15:33-0400 Pulse (Heart Rate) 59 /min [facility] 12-26-2018 15:33-0400 Pulse Oximetry 98 % Jenaro [facility] 12-26-2018 15:33-0400 Respiratory Rate 16 /min Jenaro [facility] 12-26-2018 11:24-0400 BMI (Body Mass Index) 31.64 kg/m2 Jenaro [facility] 12-26-2018 11:24-0400 Height 170.2 cm Jenaro [facility] 12-26-2018 11:24-0400 Weight 91.63 kg Jenaro [facility] 12-15-2018 09:56-0400 BMI (Body Mass Index) 32.42 kg/m2 Jenaro [facility] 12-15-2018 09:56-0400 Height 170.2 cm Jenaro [facility] 12-15-2018 09:56-0400 Weight 93.89 kg Jenaro [facility] 12-12-2018 11:17-0400 BP Diastolic 77 mm[Hg] Preston Healy [facility] 12-12-2018 11:17-0400 BP Systolic 175 mm[Hg] Preston Healy [facility] 12-12-2018 11:17-0400 Height 170.2 cm Preston Healy [facility] 12-12-2018 11:17-0400 Pulse (Heart Rate) 60 /min Preston Hobbsjose [facility] 12-01-2018 07:46-0400 BMI (Body Mass Index) 32.51 kg/m2 Preston Hbobsjose [facility] 12-01-2018 07:46-0400 Body weight 94.17 kg Preston Hobbsjose [facility] 12-01-2018 07:46-0400 BP Diastolic 82 mm[Hg] Preston Hobbsjose [facility] 12-01-2018 07:46-0400 BP Systolic 162 mm[Hg] Preston Hobbsjose [facility] 12-01-2018 07:46-0400 Height 170.2 cm Preston [facility] 12-01-2018 07:46-0400 Pulse (Heart Rate) 60 /min Preston [facility] 12-01-2018 07:46-0400 Pulse Oximetry 95 % Preston [facility] 10-30-2018 11:31-0400 BMI (Body Mass Index) 31.75 kg/m2 [facility] 10-30-2018 11:31-0400 BP Diastolic 79 mm[Hg] [facility] 10-30-2018 11:31-0400 BP Systolic 150 mm[Hg] [facility] 10-30-2018 11:31-0400 Height 170.2 cm [facility] 10-30-2018 11:31-0400 Pulse (Heart Rate) 66 /min [facility] 10-30-2018 11:31-0400 Weight 91.94 kg [facility] 06-29-2018 10:44-0500 BMI (Body Mass Index) 32.31 kg/m2 Radah [facility] 06-29-2018 10:44-0500 BP Diastolic 77 mm[Hg] Radha [facility] 06-29-2018 10:44-0500 BP Systolic 134 mm[Hg] Radha [facility] 06-29-2018 10:44-0500 Height 170.2 cm Radha [facility] 06-29-2018 10:44-0500 Pulse (Heart Rate) 64 /min Radha [facility] 06-29-2018 10:44-0500 Weight 93.58 kg Radha [facility] 11-07-2017 12:40-0400 BMI (Body Mass Index) 38.22 kg/m2 Radha Hughes [facility] 11-07-2017 12:40-0400 BP Diastolic 74 mm[Hg] Radha Hughes [facility] 11-07-2017 12:40-0400 BP Systolic 118 mm[Hg] Radha Hughes [facility] 11-07-2017 12:40-0400 Height 170.2 cm Radha [facility] 11-07-2017 12:40-0400 Pulse (Heart Rate) 72 /min Radha Hughes [facility] 11-07-2017 12:40-0400 Weight 110.68 kg Radha [facility] 11-04-2017 07:30-0400 BMI (Body Mass Index) 38.69 kg/m2 [facility] 11-04-2017 07:30-0400 BP Diastolic 76 mm[Hg] Preston Hobbsjose [facility] 11-04-2017 07:30-0400 BP Systolic 150 mm[Hg] Preston Hobbsjose [facility] 11-04-2017 07:30-0400 Height 170.2 cm Preston [facility] 11-04-2017 07:30-0400 Pulse (Heart Rate) 69 /min Preston Hobbsjose [facility] 11-04-2017 07:30-0400 Pulse Oximetry 97 % Preston Healy [facility] 11-04-2017 07:30-0400 Weight 112.04 kg Preston Healy [facility] 05-09-2017 13:26-0400 BMI (Body Mass Index) 40.41 kg/m2 Preston Healy [facility] Work Phone: 05-09-2017 13:26-0400 BP Diastolic 85 mm[Hg] Preston Healy [facility] Work Phone: 05-09-2017 13:26-0400 BP Systolic 132 mm[Hg] Preston Healy [facility] Work Phone: 05-09-2017 13:26-0400 Height 170.2 cm Preston Healy [facility] Work Phone: 05-09-2017 13:26-0400 Pulse (Heart Rate) 77 /min Preston Healy [facility] Work Phone: 05-09-2017 13:26-0400 Pulse Oximetry 94 % Preston Healy [facility] Work Phone: 05-09-2017 13:26-0400 Weight 117.03 kg Preston Healy [facility] Work Phone: 02-09-2017 13:41-0400 BMI (Body Mass Index) 37.59 kg/m2 Estephania Yeh [facility] Work Phone: 02-09-2017 13:41-0400 BP Diastolic 74 mm[Hg] Estephania Yeh [facility] Work Phone: 02-09-2017 13:41-0400 BP Systolic 112 mm[Hg] Estephania Yeh [facility] Work Phone: 02-09-2017 13:41-0400 Height 170.2 cm Estephania Yeh [facility] Work Phone: 02-09-2017 13:41-0400 Weight 108.86 kg Estephania Yeh [facility] Work Phone: Encounters Encounter Date Encounter Type Care Provider Facility Start: 02-21-2025 End: 02-21-2025 Documentation procedure Darrell Norman CNP Work Phone: [facility] Procedural Care Unit Start: 02-18-2025 End: 02-18-2025 Documentation procedure Paola Rangel LPN [facility] Start: 02-18-2025 Non-patient / Non-visit Kali Ferrer nd DO -[facility] Start: 02-18-2025 End: 02-18-2025 Admission to same day surgery center Kali Gar DO -Endoscopy Work Phone: Start: 02-18-2025 End: 02-18-[address] Gaetano Menendez MD Work Phone: -Endoscopy Start: 02-15-2025 End: 02-15-2025 Documentation procedure Darrell Norman EXCELLENCE MANAGER Work Phone: [facility] Procedural Care Unit Start: 02-09-2025 Evaluation and manag ement of inpatient Dr. Gaetano Menendez MD -Transitional Care Unit Start: 02-04-2025 End: 02-04-2025 Orders Only Niharika Delarosa EXCELLENCE MANAGER Work Phone: [facility] Comment on above: Echocardiogram abnor mal (Primary Dx) Start: 02-04-2025 End: 02-04-2025 Evaluation and management of inpatient OREN URBAN [facility] Start: 01-30-2025 End: 01-30-2025 Orders Only Luis A Gayle EXCELLENCE MANAGER Work Phone: [facility] Comment on above: Sepsis, due to unspe cified organism, unspecified whether acute organ dysfunction present (HCC) (Primary Dx) Start: 01-28-2025 End: 02-09-2025 Evaluation and management of inpatient Nevin Matthew MD Work Phone: [facility] Intermediate Care Unit Start: 01-28-2025 End: 01-28-2025 Office outpatient new 30 minutes Bradley Moore MD Work Phone: [facility] Comment on above: Left wrist pain (Sydni ernesto Dx) Start: 01-28-2025 End: 01-28-[facility] Start: 01-27-2025 End: 01-27-2025 Emergency department patient visit VIVIENRAFA HERRERAHAM [facility] Start: 01-26-2025 End: 01-26-2025 Emergency department patient visit VIVIEN AMES [facility] Start: 01-26-2025 End: 01-26-2025 Emergency department patient visit VIVIEN AMES [facility] Start: 01-22-2025 ambulatory VIVIEN HERMAN [facility] Ambulatory Start: 12-14-2024 End: 12-14-2024 Refill Vivien Foreman MD Work Phone: [facility] Comment on above: Mild major depressio n; Essential hypertension; Hyperlipidemia, unspecified hyperlipidemia type Start: 12-07-2024 ambulatory SHARON ARREOLA [facility] Ambulatory Start: 11-21-2024 End: 11-21-2024 Patient encounter procedure Hola Arroyo DPOlegario Work Phone: [facility] Comment on above: Onychomycosis (Prima ry Dx); Peripheral vascular disease, unspecified Start: 11-21-2024 End: 11-21-2024 ambulatory HOLA ARROYO JR. [facility] Ambulatory Start: 11-12-2024 End: 11-12-2024 Office outpatient visit 25 minutes Radha Hughes CNP Work Phone: [facility] Comment on above: 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, with long-term current use of insulin, macular edema presence unspecified, unspecified retinopathy severity (HCC) (Primary Dx); Hypercholesterolemia; Primary hypertension Start: 11-12-2024 End: 11-12-2024 [facility] Start: 11-09-2024 End: 11-09-2024 Orders Only Radha Hughes CNP Work Phone: [facility] [place] Comment on above: 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, with long-term current use of insulin, macular edema presence unspecified, unspecified retinopathy severity (HCC) (Primary Dx); Hypercholesterolemia Start: 11-07-2024 End: 11-07-2024 Office outpatient new 30 minutes Liliya Fine EXCELLENCE MANAGER Work Phone: [facility] Comment on above: Ganglion cyst Start: 11-07-2024 End: 11-11-2024 [facility] Start: 10-30-2024 End: 10-30-2024 Office outpatient visit 15 minutes Liliya Fine EXCELLENCE MANAGER Work Phone: [facility] Comment on above: Ganglion cyst (Prima ry Dx) Start: 10-30-2024 End: 11-03-2024 ambulatory VIVIEN AMES [facility] Ambulatory Start: 10-24-2024 End: 10-24-2024 Refill Radha Lantigua Saul LOPEZ Work Phone: [facility] [place] Start: 10-19-2024 End: 10-19-2024 Office outpatient visit 25 minutes Preston Healy MD Work Phone: [facility] Comment on above: PAD (peripheral conor ry disease) (HCC) (Primary Dx); Essential hypertension; Primary hypertension; Persistent atrial fibrillation (HCC); S/P CABG (coronary artery bypass graft); S/P AVR Start: 10-19-2024 End: 10-19-2024 [facility] Start: 09-07-2024 End: 09-07-2024 Refill Preston Healy MD Work Phone: [facility] Comment on above: Medication Refill Essential hypertensi on; Hyperlipidemia, unspecified hyperlipidemia type Start: 08-31-2024 End: 08-31-2024 Refill Preston Healy MD Work Phone: [facility] Comment on above: Medication Refill Start: 08-03-2024 End: 08-03-2024 Refill Preston Healy MD Work Phone: [facility] Comment on above: Medication Refill Essential hypertensi on; Hyperlipidemia, unspecified hyperlipidemia type Start: 06-23-2024 End: 07-08-2024 Refill Vee Mtz PA-C Work Phone: [facility] Comment on above: Medication Refill Start: 06-11-2024 ambulatory VIVIEN HERMAN [facility] Ambulatory Start: 06-06-2024 End: 06-06-2024 Office outpatient visit 25 minutes Vivien Foreman MD Work Phone: [facility] Comment on above: PAD (peripheral conor ry disease) (HCC) (Primary Dx); Primary hypertension Start: 06-06-2024 End: 06-06-2024 ambulatory VIVIEN FOREMAN [facility] Ambulatory Start: 05-23-2024 End: 05-23-2024 Patient encounter procedure Hola Arroyo DPM Work Phone: [facility] Comment on above: Onychomycosis (Prima ry Dx); Peripheral vascular disease, unspecified (HCC) Start: 05-23-2024 End: 05-23-2024 ambulatory HOLA ARROYO JR. [facility] Ambulatory Start: 05-18-2024 End: 05-18-2024 Office outpatient visit 25 minutes Radha Grzegorz Hughes CNP Work Phone: [facility] [place] Comment on above: Diabetic vitreous he morrhage 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) (Primary Dx); Type 2 diabetes mellitus with retinopathy of both eyes, with long-term current use of insulin, macular edema presence unspecified, unspecified retinopathy severity (HCC) Start: 05-18-2024 End: 05-18-2024 ambulatory RADHA HUGHES [facility] Start: 05-09-2024 End: 05-09-2024 Refill Preston Healy MD Work Phone: [facility] Comment on above: Medication Refill Start: 04-26-2024 End: 04-26-2024 ambulatory JessicaLaquita MAL FLY III [facility] Ambulatory Start: 03-16-2024 End: 03-16-2024 Refill Vivien Foreman MD Work Phone: [facility] Comment on above: Essential hypertensi on Hyperlipidemia, unsp ecified hyperlipidemia type Start: 02-22-2024 End: 02-22-2024 Patient encounter procedure Hola Arroyo DPM Work Phone: [facility] Comment on above: Onychomycosis (Prima ry Dx); Peripheral vascular disease, unspecified (HCC) Start: 02-22-2024 End: 02-22-2024 ambulatory HOLA ARROYO JR. 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; Obesity (BMI 30-39.9) Start: 01-24-2024 End: 01-24-2024 ambulatory Vivien Foreman MD Work Phone: [facility] Comment on above: At high risk for fal ls (Primary Dx) Start: 01-19-2024 End: 01-19-2024 Treatment Vivien Foreman MD Work Phone: [facility] Comment on above: Balance disorder (Pr imary Dx) Start: 01-17-2024 End: 01-17-2024 ambulatory Vivien Foreman MD Work Phone: [facility] Comment on above: At high risk for fal ls (Primary Dx) Start: 01-10-2024 End: 01-10-2024 ambulatory Vivien Foreman MD Work Phone: [facility] Comment on above: At high risk for fal ls (Primary Dx) Start: 01-05-2024 End: 01-05-2024 ambulatory Vivien Foreman MD Work Phone: [facility] Comment on above: At high risk for fal ls (Primary Dx) Start: 01-03-2024 End: 01-03-2024 ambulatory Vivien Foreman MD Work Phone: [facility] Comment on above: At high risk for fal ls (Primary Dx) Start: 12-29-2023 End: 12-29-2023 ambulatory Vivien Foreman MD Work Phone: [facility] Comment on above: At high risk for fal ls (Primary Dx) Start: 12-27-2023 End: 12-27-2023 ambulatory [facility] Comment on above: At high risk for fal ls (Primary Dx) Start: 12-19-2023 End: 12-19-2023 ambulatory [facility] MD [facility] Comment on above: At high risk for fal ls Start: 12-09-2023 End: 12-09-2023 Office outpatient visit 25 minutes Radha Hughes CNP Work Phone: [facility] [place] Comment on above: 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, with long-term current use of insulin, macular edema presence unspecified, unspecified retinopathy severity (HCC) (Primary Dx) Start: 11-29-2023 End: 11-29-2023 Patient encounter procedure Vivien Foreman MD Work Phone: [facility] Comment on above: Type 2 diabetes talib itus with other circulatory complication, with long-term current use of insulin (HCC) (Primary Dx); Malignant neoplasm of buccal sulcus (HCC); Hypertensive heart disease with heart failure (HCC); 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); Mild major depression (HCC); Traumatic subdural hemorrhage with unknown loss of consciousness status, subsequent encounter; Morbid obesity (HCC); 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, sequela (HCC); 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, bilateral legs (HCC); Type 2 diabetes mellitus with retinopathy of both eyes, with long-term current use of insulin, macular edema presence unspecified, unspecified retinopathy severity (HCC); PAD (peripheral artery disease) (HCC); Medicare annual wellness visit, subsequent; Sensorineural hearing loss (SNHL) of both ears; At high risk for falls Start: 11-23-2023 End: 11-23-2023 Patient encounter procedure Hola Arroyo DPM Work Phone: [facility] Comment on above: Onychomycosis (Prima ry Dx); Peripheral vascular disease, unspecified (HCC) Start: 11-11-2023 End: 11-11-2023 Office outpatient visit 25 minutes Preston Healy MD Work Phone: [facility] Comment on above: Persistent atrial fi brillation (HCC) (Primary Dx); Essential hypertension; PAD (peripheral artery disease) (HCC); S/P CABG (coronary artery bypass graft); S/P aortic valve replacement Start: 10-27-2023 End: 10-27-2023 Office outpatient visit 25 minutes Sanju Bill DO Work Phone: [facility] Comment on above: 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, bilateral legs (HCC) (Primary Dx); PAD (peripheral artery disease) (HCC); Abrasion, right foot, subsequent encounter; Poorly controlled diabetes mellitus (HCC); Persistent atrial fibrillation (HCC); halfway current use of anticoagulant; Obesity (BMI 30-39.9) Start: 10-20-2023 ambulatory Bess Villanueva [facility] Comment on above: Diabetes Mgt [facility] Start: 08-25-2023 Refill Radha Hughes CNP Work Phone: [facility] Comment on above: 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, with long-term current use of insulin, macular edema presence unspecified, unspecified retinopathy severity (HCC) (Primary Dx) Start: 08-08-2023 End: 08-08-2023 Orders Only Radha Hughes CNP Work Phone: [facility] Comment on above: Diabetes Mgt [facility] Start: 08-06-2023 Refill Preston Healy MD Work Phone: [facility] Comment on above: Medication Refill Essential hypertensi on Start: 07-28-2023 End: 07-28-2023 Office outpatient visit 25 minutes JessicaLaquita Bill DO Work Phone: [facility] Comment on above: 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, bilateral legs (HCC) (Primary Dx); PAD (peripheral artery disease) (HCC); Poorly controlled diabetes mellitus (HCC); Type 2 diabetes mellitus with other circulatory complication, with long-term current use of insulin (HCC); Persistent atrial fibrillation (HCC); halfway current use of anticoagulant; Obesity (BMI 30-39.9); Aneurysm of ascending aorta without rupture (HCC) Start: 06-30-2023 Orders Only Shaila Matos RN [facility] Comment on above: PAD (peripheral conor ry disease) (HCC) (Primary Dx); Essential hypertension Start: 06-30-2023 End: 06-30-2023 Office outpatient visit 25 minutes Sanju Bill DO Work Phone: [facility] Comment on above: 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, bilateral legs (HCC) (Primary Dx); PAD (peripheral artery disease) (HCC); Type 2 diabetes mellitus with other circulatory complication, with long-term current use of insulin (HCC); halfway current use of anticoagulant; Obesity (BMI 30-39.9) Start: 06-24-2023 Refill Vivien Foreman MD Work Phone: [facility] Comment on above: Mild major depressio n (HCC) Start: 06-06-2023 End: 06-06-2023 Office outpatient visit 25 minutes Radha Hughes CNP Work Phone: [facility] [place] Comment on above: 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, with long-term current use of insulin, macular edema presence unspecified, unspecified retinopathy severity (HCC) (Primary Dx); Primary hypertension Start: 05-13-2023 End: 05-13-2023 Patient encounter procedure Hola Arroyo DPM Work Phone: [facility] Comment on above: Onychomycosis (Prima ry Dx); Peripheral vascular disease, unspecified (HCC) Start: 03-04-2023 End: 03-04-2023 Office outpatient visit 25 minutes Preston Helay MD Work Phone: [facility] Comment on above: Persistent atrial fi brillation (HCC) (Primary Dx); S/P CABG (coronary artery bypass graft); S/P aortic valve replacement Start: 02-09-2023 Refill Radha Hughes CNP Work Phone: [facility] [place] Start: 01-31-2023 Refill Sanju Bill DO Work Phone: [facility] Comment on above: Medication Refill Start: 01-21-2023 End: 01-21-2023 Office outpatient visit 25 minutes Vivien Foreman MD Work Phone: [facility] Comment on above: Diarrhea, unspecifie d type (Primary Dx); Essential hypertension; Hyperlipidemia, unspecified hyperlipidemia type; Persistent atrial fibrillation (HCC); 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, bilateral legs (HCC) Start: 01-07-2023 End: 01-07-2023 Patient encounter procedure Hola Cruz SEYMOURM Work Phone: [facility] Comment on above: Onychomycosis (Prima ry Dx); Peripheral vascular disease, unspecified (HCC) Start: 12-10-2022 Refill Vivien Foreman MD Work Phone: [facility] Comment on above: Essential hypertensi on; Hyperlipidemia, unspecified hyperlipidemia type Medication Refill Start: 12-09-2022 End: 12-09-2022 Office outpatient visit 15 minutes Sanju Bill DO Work Phone: [facility] Comment on above: 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, bilateral legs (HCC) (Primary Dx); PAD (peripheral artery disease) (HCC); Type 2 diabetes mellitus with other circulatory complication, with long-term current use of insulin (HCC); Obesity (BMI 30-39.9); 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 Start: 10-28-2022 Refill Sajnu Bill DO Work Phone: [facility] Comment on above: Medication Refill Start: 08-27-2022 Refill Preston Healy MD Work Phone: [facility] Comment on above: Medication Refill Start: 07-23-2022 End: 07-23-2022 Office outpatient visit 25 minutes Vivien Foreman MD Work Phone: [facility] Comment on above: 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, with long-term current use of insulin, macular edema presence unspecified, unspecified retinopathy severity (HCC) (Primary Dx); Mild major depression (HCC); Peripheral vascular disease, unspecified (HCC); Persistent atrial fibrillation (HCC); Morbid obesity (HCC); 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); 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, sequela (HCC); Hypertensive heart disease with heart failure (HCC); Malignant neoplasm of buccal sulcus (HCC); Cough, unspecified type; PAD (peripheral artery disease) (HCC); 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, bilateral legs (HCC) Start: 07-09-2022 End: 07-09-2022 Patient encounter procedure Hola Arroyo DPM Work Phone: [facility] Comment on above: Onychomycosis (Prima ry Dx); Peripheral vascular disease, unspecified (HCC); Diabetic polyneuropathy 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) Start: 06-25-2022 Refill Yun Darnell RN [facility] Comment on above: Medication Refill Start: 06-14-2022 End: 06-14-2022 Patient encounter procedure Vivien Foreman MD Work Phone: [facility] Comment on above: At low risk for fall (Primary Dx); Mild major depression (HCC); Persistent atrial fibrillation (HCC); Medicare annual wellness visit, subsequent; Need for COVID-19 vaccine; Advanced directives, counseling/discussion; PAD (peripheral artery disease) (HCC) Start: 05-14-2022 End: 05-14-2022 Office outpatient visit 25 minutes Preston Healy MD Work Phone: [facility] Comment on above: Persistent atrial fi brillation (HCC); S/P CABG (coronary artery bypass graft); S/P aortic valve replacement Start: 04-07-2022 End: 04-07-2022 Office outpatient visit 15 minutes Hola Arroyo DPM Work Phone: [facility] Comment on above: Diabetic polyneuropa thy 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) (Primary Dx); Onychomycosis; Peripheral vascular disease, unspecified (HCC) Start: 04-03-2022 Refill Preston Healy MD Work Phone: [facility] Comment on above: Medication Refill Start: 03-20-2022 Refill Preston Healy MD Work Phone: [facility] Comment on above: Medication Refill Start: 03-17-2022 End: 03-17-2022 Office outpatient new 45 minutes Osbaldo Jim MD Work Phone: [facility] Comment on above: 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, bilateral legs (HCC) (Primary Dx); PAD (peripheral artery disease) (HCC); Persistent atrial fibrillation (HCC); Morbid obesity (HCC); Type 2 diabetes mellitus with other circulatory complication, with long-term current use of insulin (HCC) Start: 03-04-2022 Refill Yanna bernardo CNP Work Phone: [facility] Comment on above: Medication Refill Start: 02-22-2022 End: 02-22-2022 Office outpatient visit 25 minutes Vivien Foreman MD Work Phone: [facility] Comment on above: Coronary artery dise ase involving [place] heart without angina pectoris, unspecified vessel or lesion type (Primary Dx); Postoperative atrial fibrillation (HCC); 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); Type 2 diabetes mellitus with retinopathy of both eyes, with long-term current use of insulin, macular edema presence unspecified, unspecified retinopathy severity (HCC); Intermittent claudication (HCC) Start: 02-19-2022 End: 02-19-2022 Office outpatient visit 25 minutes Radha Hughes CNP Work Phone: [facility] [place] Comment on above: 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, with long-term current use of insulin, macular edema presence unspecified, unspecified retinopathy severity (HCC) (Primary Dx); Primary hypertension; Hypercholesterolemia Start: 01-14-2022 Orders Only Yun Darnell RN [facility] Comment on above: PAD (peripheral conor ry disease) (HCC) (Primary Dx); Claudication (HCC) PAD (peripheral conor ry disease) (HCC) (Primary Dx) Start: 01-12-2022 Refill Radha Hughes CNP Work Phone: [facility] [place] Start: 12-23-2021 End: 12-23-2021 Patient encounter procedure Hola Arroyo DPM Work Phone: [facility] Comment on above: Onychomycosis (Prima ry Dx); Peripheral vascular disease, unspecified (HCC) Start: 12-22-2021 Admission to [facility] Preston Healy MD Work Phone: [facility] Start: 12-22-2021 End: 12-22-2021 Documentation procedure Preston Healy MD Work Phone: [facility] Comment on above: Pre-operative cardio vascular examination (Primary Dx); Hx of aortic valve replacement Medication Refill Abnormal stress test (Primary Dx); Coronary artery disease, unspecified vessel or lesion type, unspecified whether angina present, unspecified whether [place] or transplanted heart Start: 12-22-2021 End: 12-22-2021 Patient encounter status Yun Darnell RN [facility] Start: 10-22-2021 Refill Radha Hughes CNP Work Phone: [facility] [place] Start: 10-12-2021 End: 10-12-2021 Office outpatient visit 25 minutes Radha Grzegorz Hughes CNP Work Phone: [facility] [place] Comment on above: 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, with long-term current use of insulin, macular edema presence unspecified, unspecified retinopathy severity (HCC) (Primary Dx); Primary hypertension Start: 06-19-2021 End: 06-19-2021 Phys/qhp telephone evaluation 21-30 min Preston Healy MD Work Phone: [facility] Comment on above: Persistent atrial fi brillation (HCC) (Primary Dx); Coronary 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, unspecified vessel or lesion type Start: 06-15-2021 End: 06-15-2021 Office outpatient visit 25 minutes Radha Hughes CNP Work Phone: [facility] [place] Comment on above: 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, with long-term current use of insulin, macular edema presence unspecified, unspecified retinopathy severity (HCC) (Primary Dx); Primary hypertension; Hypercholesterolemia Start: 06-12-2021 End: 06-12-2021 Office outpatient visit 25 minutes Vivien Foreman MD Work Phone: [facility] Comment on above: At low risk for fall (Primary Dx); Ventricular fibrillation (HCC); Primary hypertension; Mild major depression (HCC); Anxiety and depression; Encounter for immunization Start: 04-27-2021 Refill Yun Darnell RN [facility] Comment on above: Medication Refill Start: 03-25-2021 End: 03-25-2021 Patient encounter procedure Hola Arroyo DPM Work Phone: [facility] Comment on above: Onychomycosis (Prima ry Dx); Peripheral vascular disease, unspecified (HCC) Start: 03-03-2021 ambulatory Cindy huber [facility] Start: 03-03-2021 Coordination of care plan Kamryn Dyer [facility] Comment on above: Care Coordination-BH P Start: 03-02-2021 End: 03-02-2021 Patient encounter procedure Vivien Foreman MD Work Phone: [facility] Comment on above: Anxiety and depressi on (Primary Dx); Balance disorder; Encounter for immunization Start: 03-02-2021 End: 03-02-2021 Office outpatient visit 15 minutes Radha Hughes CNP Work Phone: [facility] [place] Comment on above: 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, with long-term current use of insulin, macular edema presence unspecified, unspecified retinopathy severity (HCC) (Primary Dx); Essential hypertension Start: 02-27-2021 End: 02-27-2021 Office outpatient visit 25 minutes Preston Healy MD Work Phone: [facility] Comment on above: Persistent atrial fi brillation (HCC) Start: 01-26-2021 End: 01-26-2021 Refill Dayna Johnson RN [facility] Comment on above: Medication Refill Start: 01-13-2021 End: 01-13-2021 Subsequent hospital visit by physician Preston Healy MD Work Phone: [facility] Comment on above: Arrived Start: 01-09-2021 End: 01-09-2021 Office outpatient visit 40 minutes Preston Healy MD Work Phone: [facility] Comment on above: Essential hypertensi on; Hyperlipidemia, unspecified hyperlipidemia type; Persistent atrial fibrillation (HCC); S/P CABG (coronary artery bypass graft); S/P aortic valve replacement Start: 01-05-2021 End: 01-05-2021 Office outpatient visit 25 minutes Vivien Foreman MD Work Phone: [facility] Comment on above: 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, with long-term current use of insulin, macular edema presence unspecified, unspecified retinopathy severity (HCC) (Primary Dx); Essential hypertension; Encounter for immunization 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, with long-term current use of insulin, macular edema presence unspecified, unspecified retinopathy severity (HCC) (Primary Dx); Essential hypertension Start: 12-31-2020 Refill Preston Healy MD Work Phone: [facility] Comment on above: Medication Refill Start: 12-27-2020 End: 12-27-2020 Refill Preston Healy MD Work Phone: [facility] Comment on above: Medication Refill Start: 12-17-2020 End: 12-17-2020 Orders Only Radha Hughes CNP Work Phone: [facility] Comment on above: 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 and macular edema, with long-term current use of insulin, unspecified laterality, unspecified retinopathy severity (HCC) (Primary Dx); Pure hypercholesterolemia Start: 12-16-2020 End: 12-16-2020 Office outpatient new 60 minutes Vivien Foreman MD Work Phone: [facility] Comment on above: Encounter to [facility] (Primary Dx); Malignant neoplasm of buccal sulcus (HCC); Type 2 diabetes mellitus with retinopathy of both eyes, with long-term current use of insulin, macular edema presence unspecified, unspecified retinopathy severity (HCC); Postoperative atrial fibrillation (HCC); Morbid obesity (HCC); Essential hypertension; 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, sequela (HCC); Hypercholesterolemia; S/P aortic valve replacement; Coronary 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, unspecified vessel or lesion type; Skin mole Start: 10-15-2020 End: 10-15-2020 Refill Dayna Johnson [facility] Comment on above: Medication Refill Start: 09-08-2020 End: 09-08-2020 Refill Tianna Conn [facility] Comment on above: Medication Refill Start: 08-01-2020 End: 08-01-2020 Orders Only Vipul Bueno Work Phone: [facility] Start: 07-26-2020 End: 07-26-2020 Refill Preston Healy Work Phone: [facility] Comment on above: Medication Refill Start: 05-12-2020 End: 05-12-2020 Office outpatient visit 25 minutes Radha Hughes Work Phone: [facility] Comment on above: 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, with long-term current use of insulin, macular edema presence unspecified, unspecified retinopathy severity (HCC) (Primary Dx); Essential hypertension; Hypercholesterolemia Start: 12-31-2019 End: 12-31-2019 Office outpatient visit 25 minutes Radha Hughes Work Phone: [facility] Comment on above: 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, with long-term current use of insulin, macular edema presence unspecified, unspecified retinopathy severity (HCC) (Primary Dx); Essential hypertension; Hypercholesterolemia Start: 10-11-2019 End: 10-11-2019 Patient encounter procedure Amanda Johnson Work Phone: [facility] Comment on above: DDD (degenerative di sc disease), lumbar (Primary Dx) Start: 10-02-2019 End: 10-02-2019 Patient encounter procedure Amanda Johnson Work Phone: [facility] Comment on above: DDD (degenerative di sc disease), lumbar Start: 09-20-2019 End: 09-20-2019 Office outpatient new 30 minutes Amanda Johnson Work Phone: [facility] Comment on above: DDD (degenerative di sc disease), lumbar (Primary Dx) Start: 07-26-2019 End: 07-26-2019 Office outpatient visit 15 minutes Preston Healy Work Phone: [facility] Comment on above: Hyperlipidemia, unsp ecified hyperlipidemia type; S/P CABG (coronary artery bypass graft) Start: 03-01-2019 End: 03-01-2019 Office outpatient visit 25 minutes Radha Hughes Work Phone: [facility] Comment on above: 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, with long-term current use of insulin, macular edema presence unspecified, unspecified retinopathy severity (HCC) (Primary Dx); Essential hypertension; Hypercholesterolemia Start: 02-19-2019 Patient encounter procedure DIETER CARCAMO AnNINO Facility:[facility] Start: 01-29-2019 Refill Radha Hughes CNP Work Phone: [facility] Start: 01-03-2019 End: 01-03-2019 Follow-up encounter Jenaro Oquendo Work Phone: [facility] Comment on above: Surgery follow-up (P rimary Dx) Start: 12-26-2018 End: 12-26-2018 Patient encounter procedure [facility] Start: 12-26-2018 End: 12-26-2018 Patient encounter [facility] Work Phone: [facility] Start: 12-21-2018 End: 12-25-2018 Patient encounter procedure [facility] Start: 12-21-2018 End: 12-21-2018 Patient encounter procedure Jenaro Oquendo Work Phone: [facility] Comment on above: Preoperative testing (Primary Dx); Type 2 diabetes mellitus with retinopathy of both eyes, with long-term current use of insulin, macular edema presence unspecified, unspecified retinopathy severity (HCC) Start: 12-15-2018 End: 12-15-2018 Documentation procedure Joe Viramontes [facility] Start: 12-15-2018 End: 12-19-2018 Patient encounter procedure JENARO [facility] Start: 12-15-2018 End: 12-15-2018 Office outpatient new 20 minutes Jenaro Oquendo Work Phone: [facility] Comment on above: Wrist pain, chronic, right (Primary Dx); De Quervain's disease (radial styloid tenosynovitis) Start: 12-12-2018 End: 12-12-2018 Patient encounter procedure Preston Healy Work Phone: [facility] Comment on above: Arrived Coronary artery dise ase involving [place] heart without angina pectoris, unspecified vessel or lesion type; Chest pain, unspecified type Start: 12-08-2018 End: 12-08-2018 Patient encounter procedure Preston Healy Work Phone: [facility] Comment on above: Chest pain, unspecif ied type; S/P aortic valve replacement Start: 12-07-2018 End: 12-07-2018 Patient encounter procedure Preston Healy Work Phone: [facility] Comment on above: Chest pain, unspecif ied type Prominent abdominal aortic pulse Start: 12-01-2018 End: 12-01-2018 Office outpatient visit 25 minutes Preston Healy Work Phone: [facility] Comment on above: Coronary artery dise ase involving [place] heart without angina pectoris, unspecified vessel or lesion type (Primary Dx); Chest pain, unspecified type; Prominent abdominal aortic pulse; S/P aortic valve replacement; Essential hypertension; S/P CABG (coronary artery bypass graft) Start: 10-30-2018 End: 10-30-2018 Office outpatient visit 25 minutes Girish Gramajo Work Phone: [facility] Comment on above: 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, with long-term current use of insulin, macular edema presence unspecified, unspecified retinopathy severity (HCC) (Primary Dx); Coronary 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, unspecified vessel or lesion type; Essential hypertension; Hypercholesterolemia Start: 10-23-2018 Patient encounter procedure Facility:[id number] Start: 10-05-2018 Refill Preston Healy MD Work Phone: [facility] Comment on above: Medication Refill Start: 06-29-2018 End: 06-29-2018 Office outpatient visit 25 minutes Radha Hughes Work Phone: [facility] Comment on above: 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, with long-term current use of insulin, macular edema presence unspecified, unspecified retinopathy severity (HCC) (Primary Dx); Hypercholesterolemia Start: 06-20-2018 Patient encounter procedure Facility:[id number] Start: 05-31-2018 Patient encounter procedure Facility:[id number] Start: 03-07-2018 Patient encounter procedure Facility:[id number] Start: 02-20-2018 Patient encounter procedure DIETER CHRISTINA [facility] Start: 12-26-2017 End: 12-26-2017 Office outpatient visit 10 minutes Dillan Cooper Work Phone: [facility] Start: 11-28-2017 End: 11-28-2017 Office/outpatient visit, est, level 2 Dillan Cooper Work Phone: [facility] Start: 11-21-2017 Ambulatory Preston Healy [facility] ity:Janett Start: 11-21-2017 End: 11-21-2017 Ambulatory Preston Healy Work Phone: [facility] Start: 11-07-2017 End: 11-07-2017 Office/outpatient visit, est, level 4 Radha Hughes Work Phone: [facility] Start: 11-04-2017 End: 11-04-2017 Office/outpatient visit, est, level 3 Preston Healy Work Phone: [facility] Start: 05-09-2017 Office outpatient vi sit 15 minutes Preston Healy Work Phone: [facility] Start: 02-09-2017 Office/outpatient vi sit, est, level 4 Estephania Yeh Work Phone: [facility] Start: 11-03-2015 Refill Preston Healy MD Work Phone: [facility] Comment on above: Medication Refill Procedures Date Procedure Procedure Detail Performing Clinician Start: 02-18-[address] Gaetano Menendez MD Work Phone: Start: 02-16-[address] Gaetano ortiz MD Work Phone: Start: 02-13-2025 Osmolality measurement, serum Dr. Gaetano morris MD Work Phone: Start: 02-12-2025 Measurement of occult blood in stool specimen using immunoassay Dr. Gaetano Menendez MD Work Phone: Start: 02-10-2025 Plain chest X-ray Dr. Gaetano Menendez MD Work Phone: Start: 02-10-2025 Total iron binding capacity measurement Dr. Gaetano Menendez MD Work Phone: Start: 02-09-2025 Glucose measurement Oren Rafaeldarwin Kristopherdarwin Work Phone: Start: 02-09-2025 Glucose measurement Generic [facility] Work Phone: Start: 02-09-2025 Complete blood count with white cell differential, manual Dominga Muñiz EXCELLENCE MANAGER Work Phone: Start: 02-09-2025 Comprehensive metabolic panel Dominga Marks EXCELLENCE MANAGER Work Phone: Start: 02-09-2025 Hepatic function panel Dominga fox EXCELLENCE MANAGER Work Phone: Start: 02-08-2025 Glucose measurement Generic [facility] Work Phone: Start: 02-08-2025 Glucose measurement Generic [facility] Work Phone: Start: 02-08-2025 Glucose measurement Generic [facility] Work Phone: Start: 02-08-2025 Cyanocobalamin vitamin b-12 Kelly Burton MD Work Phone: Start: 02-08-2025 Glucose measurement Generic [facility] Work Phone: Start: 02-08-2025 Complete blood count with white cell differential, manual Dominga Muñiz EXCELLENCE MANAGER Work Phone: Start: 02-08-2025 Comprehensive metabolic panel Dominga Marks EXCELLENCE MANAGER Work Phone: Start: 02-08-2025 Hepatic function panel Dominga ofx EXCELLENCE MANAGER Work Phone: Start: 02-07-2025 Blood count complete automated [place] Nikki Matthew MD Work Phone: Start: 02-07-2025 Glucose measurement [facility] Work Phone: Start: 02-07-2025 Glucose measurement [facility] Work Phone: Start: 02-07-2025 Radiologic exam chest single view Janelle Norman MD Work Phone: Start: 02-07-2025 Glucose measurement [facility] Work Phone: Start: 02-07-2025 End: 02-07-2025 Glucose measurement [facility] Work Phone: Start: 02-07-2025 Complete blood count with white cell differential, manual Dominga Muñiz EXCELLENCE MANAGER Work Phone: Start: 02-07-2025 Comprehensive metabolic panel Dominga Marks EXCELLENCE MANAGER Work Phone: Start: 02-07-2025 Hepatic function panel Dominga fox EXCELLENCE MANAGER Work Phone: Start: 02-07-2025 Red blood cell morphology Dominga crawford EXCELLENCE MANAGER Work Phone: Start: 02-06-2025 Glucose measurement [facility] Work Phone: Start: 02-06-2025 Glucose measurement [facility] Work Phone: Start: 02-06-2025 Glucose measurement [facility] Work Phone: Start: 02-06-2025 Potassium serum plasma/whole blood Kelly Burton MD Work Phone: Start: 02-06-2025 End: 02-06-2025 Glucose measurement [facility] Work Phone: Start: 02-06-2025 Complete blood count with white cell differential, manual Dominga Muñiz EXCELLENCE MANAGER Work Phone: Start: 02-06-2025 Comprehensive metabolic panel Dominga Marks EXCELLENCE MANAGER Work Phone: Start: 02-06-2025 Hepatic function panel Dominga fox EXCELLENCE MANAGER Work Phone: Start: 02-06-2025 Red blood cell morphology Dominga crawford EXCELLENCE MANAGER Work Phone: Start: 02-05-2025 Glucose measurement [facility] Work Phone: Start: 02-05-2025 Glucose measurement [facility] Work Phone: Start: 02-05-2025 Glucose measurement [facility] Work Phone: Start: 02-05-2025 Glucose measurement [facility] Work Phone: Start: 02-05-2025 Complete blood count with white cell differential, manual Dominga Muñiz EXCELLENCE MANAGER Work Phone: Start: 02-05-2025 Comprehensive metabolic panel Dominga Marks EXCELLENCE MANAGER Work Phone: Start: 02-05-2025 Hepatic function panel Dominga fox EXCELLENCE MANAGER Work Phone: Start: 02-05-2025 Red blood cell morphology Dominga crawford EXCELLENCE MANAGER Work Phone: Start: 02-04-2025 Glucose measurement [facility] Work Phone: Start: 02-04-2025 Glucose measurement [facility] Work Phone: Start: 02-04-2025 Glucose measurement [facility] Work Phone: Start: 02-04-2025 Culture bacterial blood aerobic w/id isolates Noemi Andrade MD Work Phone: Start: 02-04-2025 End: 02-04-2025 Glucose measurement [facility] Work Phone: Start: 02-04-2025 Complete blood count with white cell differential, manual Dominga Muñiz EXCELLENCE MANAGER Work Phone: Start: 02-04-2025 Comprehensive metabolic panel Dominga Marks EXCELLENCE MANAGER Work Phone: Start: 02-04-2025 Hepatic function panel Dominga Poeo dominique EXCELLENCE MANAGER Work Phone: Start: 02-04-2025 Red blood cell morphology Dominga crawford EXCELLENCE MANAGER Work Phone: Start: 02-03-2025 Glucose measurement [facility] Work Phone: Start: 02-03-2025 Glucose measurement [facility] Work Phone: Start: 02-03-2025 Glucose measurement [facility] Work Phone: Start: 02-03-2025 Glucose measurement [facility] Work Phone: Start: 02-03-2025 Complete blood count with white cell differential, manual Dominga Muñiz EXCELLENCE MANAGER Work Phone: Start: 02-03-2025 Comprehensive metabolic panel Dominga Marks EXCELLENCE MANAGER Work Phone: Start: 02-03-2025 Hepatic function panel Dominga Poeo dominique EXCELLENCE MANAGER Work Phone: Start: 02-03-2025 Red blood cell morphology Dominga crawford EXCELLENCE MANAGER Work Phone: Start: 02-03-2025 Glucose measurement [facility] Work Phone: Start: 02-02-2025 Glucose measurement [facility] Work Phone: Start: 02-02-2025 Blood count hematocrit Noemi Andrade MD Work Phone: Start: 02-02-2025 Glucose measurement [facility] Work Phone: Start: 02-02-2025 Blood occult fecal hgb deter ia qual feces 1-3 Noemi Andrade MD Work Phone: Start: 02-02-2025 Glucose measurement [facility] Work Phone: Start: 02-02-2025 Potassium serum plasma/whole blood Melissa Andrade MD Work Phone: Start: 02-02-2025 End: 02-02-2025 Glucose measurement [facility] Work Phone: Start: 02-02-2025 Glucose measurement [facility] Work Phone: Start: 02-02-2025 End: 02-02-2025 Glucose measurement [facility] Work Phone: Start: 02-02-2025 End: 02-02-2025 Glucose measurement [facility] Work Phone: Start: 02-02-2025 Complete blood count with white cell differential, manual Dominga Muñiz EXCELLENCE MANAGER Work Phone: Start: 02-02-2025 Comprehensive metabolic panel Dominga Marks EXCELLENCE MANAGER Work Phone: Start: 02-02-2025 Hepatic function panel Dominga fox EXCELLENCE MANAGER Work Phone: Start: 02-02-2025 Red blood cell morphology Dominga crawford EXCELLENCE MANAGER Work Phone: Start: 02-01-2025 Glucose measurement [facility] Work Phone: Start: 02-01-2025 Glucose measurement [facility] Work Phone: Start: 02-01-2025 Glucose measurement [facility] Work Phone: Start: 02-01-2025 Cul bact xcpt urine blood/stool aerobic isol Dillan Cooper MD Work Phone: Start: 02-01-2025 End: 02-01-2025 Exploration penetrating wound spx extremity Dillan Cooper MD Work Phone: Start: 02-01-2025 Glucose measurement [facility] Work Phone: Start: 02-01-2025 Glucose measurement [facility] Work Phone: Start: 02-01-2025 Potassium serum plasma/whole blood Dominga Muñiz EXCELLENCE MANAGER Work Phone: Start: 02-01-2025 Glucose measurement Generic [facility] Work Phone: Start: 02-01-2025 Complete blood count with white cell differential, manual Dominga Muñiz EXCELLENCE MANAGER Work Phone: Start: 02-01-2025 Comprehensive metabolic panel Dominga Marks EXCELLENCE MANAGER Work Phone: Start: 02-01-2025 Hepatic function panel Dominga fox EXCELLENCE MANAGER Work Phone: Start: 01-31-2025 Glucose measurement Generic [facility] Work Phone: Start: 01-31-2025 Thromboplastin time partial plasma/whole blood Noemi Andrade MD Work Phone: Start: 01-31-2025 Glucose measurement Generic [facility] Work Phone: Start: 01-31-2025 Thromboplastin time partial plasma/whole blood Noemi Andrade MD Work Phone: Start: 01-31-2025 Glucose measurement [facility] Work Phone: Start: 01-31-2025 Glucose measurement [facility] Work Phone: Start: 01-31-2025 Complete blood count with white cell differential, manual Dominga Muñiz EXCELLENCE MANAGER Work Phone: Start: 01-31-2025 Comprehensive metabolic panel Dominga Marks EXCELLENCE MANAGER Work Phone: Start: 01-31-2025 Hepatic function panel Dominga fox EXCELLENCE MANAGER Work Phone: Start: 01-30-2025 Electrocardiogram [facility] Work Phone: Start: 01-30-2025 Glucose measurement [facility] Work Phone: Start: 01-30-2025 Glucose measurement [facility] Work Phone: Start: 01-30-2025 Us abdominal real time w/image limited Dominga Muñiz EXCELLENCE MANAGER Work Phone: Start: 01-30-2025 Basic metabolic panel calcium total Dominga Muñiz EXCELLENCE MANAGER Work Phone: Start: 01-30-2025 Urnls dip stick/tablet reagent auto microscopy Noemi Andrade MD Work Phone: Start: 01-30-2025 End: 01-30-2025 Culture bacterial blood aerobic w/id isolates Dominga Muñiz EXCELLENCE MANAGER Work Phone: Start: 01-30-2025 Glucose measurement Generic [facility] Work Phone: Start: 01-30-2025 Cul bact xcpt urine blood/stool aerobic isol Dominga Muñiz EXCELLENCE MANAGER Work Phone: Start: 01-30-2025 Gases blood ph direct nola xcpt pulse oximitry Generic [facility] Work Phone: Start: 01-30-2025 Assay of ammonia Dominga Muñiz EXCELLENCE MANAGER Work Phone: Start: 01-30-2025 OBTAIN VENOUS BLOOD GASES AND PERFORM Dominga Muñiz EXCELLENCE MANAGER Work Phone: Start: 01-30-2025 Glucose measurement Generic [facility] Work Phone: Start: 01-30-2025 Complete blood count with white cell differential, manual Dominga Muñiz EXCELLENCE MANAGER Work Phone: Start: 01-30-2025 Comprehensive metabolic panel Dominga Marks EXCELLENCE MANAGER Work Phone: Start: 01-30-2025 Hepatic function panel Dominga fox EXCELLENCE MANAGER Work Phone: Start: 01-29-2025 Glucose measurement Generic [facility] Work Phone: Start: 01-29-2025 Basic metabolic panel calcium total Demetria Gomez MD Work Phone: Start: 01-29-2025 Glucose measurement Generic [facility] Work Phone: Start: 01-29-2025 Thromboplastin time partial plasma/whole blood Noemi Andrade MD Work Phone: Start: 01-29-2025 Culture bacterial quanttative colony count urine Dominga Muñiz EXCELLENCE MANAGER Work Phone: Start: 01-29-2025 Us retroperitoneal real time w/image complete Dominga Muñiz EXCELLENCE MANAGER Work Phone: Start: 01-29-2025 Glucose measurement Generic [facility] Work Phone: Start: 01-29-2025 Basic metabolic panel calcium total Nanci Andrade MD Work Phone: Start: 01-29-2025 Ct upper extremity w/o contrast material Kunal Norman MD Work Phone: Start: 01-29-2025 Glucose measurement Generic [facility] Work Phone: Start: 01-29-2025 Echo tthrc r-t 2d w/wom-mode compl spec&colr d Dominga Muñiz EXCELLENCE MANAGER Work Phone: Start: 01-29-2025 Assay of lactate Nevin Matthew MD Work Phone: Start: 01-29-2025 End: 01-29-2025 Glucose measurement [facility] Work Phone: Start: 01-29-2025 Gases blood ph direct nola xcpt pulse oximitry [facility] Work Phone: Start: 01-29-2025 OBTAIN VENOUS BLOOD GASES AND PERFORM Dominga Muñiz EXCELLENCE MANAGER Work Phone: Start: 01-29-2025 Assay of troponin quantitative Dominga jones [place] EXCELLENCE MANAGER Work Phone: Start: 01-29-2025 Ecg routine ecg w/least 12 lds trcg only w/o i&r Domingaobed ShenJoyce [place] EXCELLENCE MANAGER Work Phone: Start: 01-29-2025 End: 01-29-2025 Glucose measurement [facility] Work Phone: Start: 01-29-2025 Glucose measurement Generic [facility] Work Phone: Start: 01-29-2025 Iadna s aureus methicillin resist amp probe tq Dominga Poeour EXCELLENCE MANAGER Work Phone: Start: 01-29-2025 Basic metabolic panel calcium total Oren Niwemukiza Kiza DO Work Phone: Start: 01-29-2025 Glucose measurement [facility] Work Phone: Start: 01-29-2025 End: 01-29-2025 Glucose measurement [facility] Work Phone: Start: 01-29-2025 Electrocardiogram [facility] Work Phone: Start: 01-29-2025 Basic metabolic panel calcium total Oren Niwemukiza Kiza DO Work Phone: Start: 01-29-2025 Glucose measurement [facility] Work Phone: Start: 01-29-2025 End: 01-29-2025 Glucose measurement [facility] Work Phone: Start: 01-29-2025 Assay of lactate Nevin Matthew MD Work Phone: Start: 01-29-2025 End: 01-29-2025 Glucose measurement Generic [facility] Work Phone: Start: 01-29-2025 Glucose measurement Generic [facility] Work Phone: Start: 01-28-2025 Gases blood ph direct nola xcpt pulse oximitry Nevin Matthew MD Work Phone: Start: 01-28-2025 OBTAIN VENOUS BLOOD GASES AND PERFORM Oren Latosha Mireles DO Work Phone: Start: 01-28-2025 End: 01-28-2025 Basic metabolic panel calcium total Oren Sherylaudrey Summersdarwin DO Work Phone: Start: 01-28-2025 C-reactive protein Oren Sarahlissette Mireles DO Work Phone: Start: 01-28-2025 Assay of troponin quantitative Nevin Matthew MD Work Phone: Start: 01-28-2025 Ct angiography chest w/contrast/noncontrast Nevin Matthew MD Work Phone: Start: 01-28-2025 RAINBOW DRAW Nevin Matthew MD Work Phone: Start: 01-28-2025 URINE VAZQUEZ CONTAINER Nevin Matthew MD Work Phone: Start: 01-28-2025 End: 01-28-2025 Urnls dip stick/tablet reagent auto microscopy Nevin Matthew MD Work Phone: Start: 01-28-2025 Blood pathogens panel by LAVONNE with non-probe detection in Positive blood culture Nevin Matthew MD Work Phone: Start: 01-28-2025 Radiologic exam chest single view Nevin Matthew MD Work Phone: Start: 01-28-2025 Gases blood ph direct nola xcpt pulse oximitry Nevin Matthew MD Work Phone: Start: 01-28-2025 OBTAIN VENOUS BLOOD GASES AND PERFORM Nevin Matthew MD Work Phone: Start: 01-28-2025 Complete blood count with white cell differential, manual Nevin Matthew MD Work Phone: Start: 01-28-2025 Comprehensive metabolic panel Nevin Matthew MD Work Phone: Start: 01-28-2025 Glucose measurement [facility] Start: 01-28-2025 VAZQUEZ TOP Nevin Matthew MD Work Phone: Start: 01-28-2025 LIGHT BLUE TOP Nevin Matthew MD Work Phone: Start: 01-28-2025 RAINBOW DRAW Nevin Matthew MD Work Phone: Start: 01-28-2025 Ecg routine ecg w/least 12 lds w/i&r Nevin Matthew MD Work Phone: Start: 01-28-2025 EMS RUN SHEET Generic Ems Provider Start: 11-12-2024 External drying machine receiver, CGM carla Hughes EXCELLENCE MANAGER Work Phone: Start: 05-18-2024 External drying machine receiver, CGM carla Hughes EXCELLENCE MANAGER Work Phone: Start: 03-04-2023 Ecg routine ecg w/least 12 lds w/i&r Preston Healy MD Work Phone: Start: 12-03-2022 3 comp foot exam completed Sanju Bill III , DO Work Phone: Start: 11-29-2022 Microalbumin [Mass/volume] in Urine by Test strip WLaquita Bill III, DO Work Phone: Start: 04-05-2022 Ophthalmic examination and evaluation Hola Arroyo Jr., DPM Work Phone: Start: 02-19-2022 3 comp foot exam completed Radha Watso n EXCELLENCE MANAGER Work Phone: Start: 12-02-2021 Ophthalmic examination and evaluation Yanna Minor [facility] Work Phone: Start: 10-12-2021 3 comp foot exam completed Radha Watso n EXCELLENCE MANAGER Work Phone: Start: 06-15-2021 3 comp foot exam completed Radha Watso n EXCELLENCE MANAGER Work Phone: Start: 03-02-2021 3 comp foot exam completed Radha Watso n EXCELLENCE MANAGER Work Phone: Start: 01-09-2021 Ecg routine ecg w/least 12 lds w/i&r Preston Healy MD Work Phone: Start: 01-05-2021 3 comp foot exam completed Vivien Foreman MD Work Phone: Start: 12-22-2020 Ophthalmic examination and evaluation Vivien Foreman MD Work Phone: Start: 12-17-2020 Microalbumin [Mass/volume] in Urine by Test strip Preston Healy MD Work Phone: Start: 12-16-2020 Adult depression screening assessment Radha Hughes [facility] Work Phone: Start: 05-12-2020 3 comp foot exam completed Preston garcia Start: 12-31-2019 3 comp foot exam completed Radha Watso n Start: 03-01-2019 3 comp foot exam completed Preston Beltran an Start: 12-26-2018 Glucose [Mass/volume] in Blood Jenaro Bernie Oquendo Work Phone: Start: 12-26-2018 Glucose [Mass/volume] in Blood Jenaro Bernie Oquendo Work Phone: Start: 12-15-2018 Radex wrist complete minimum 3 views eJnaro Oquendo Work Phone: Start: 12-12-2018 Radionuclide myocardial perfusion study Preston Jose David Healy Work Phone: Start: 12-08-2018 Contrast echocardiography Preston Main Sreedhar tyson Work Phone: Start: 12-07-2018 Standard chest X-ray Preston Jose David huber Work Phone: Start: 12-07-2018 Dup-scan aorta ivc iliac vascl/bpgs uni/lmtd Preston Jose David Healy Work Phone: Start: 10-30-2018 3 comp foot exam completed Preston garcia Start: 10-23-2018 Microalbumin [Mass/volume] in Urine by Test strip Radha Hughes CNP Work Phone: Start: 06-29-2018 3 comp foot exam completed Girish molina Start: 11-21-2017 End: 11-21-2017 Tte w/doppler, complete Preston Jose David copeland Work Phone: Start: 11-07-2017 3 comp foot exam completed Radha huber Start: 09-01-2015 History of coronary artery bypass grafting S/P CABG (coronary artery bypass graft) Radha Hughes EXCELLENCE MANAGER Work Phone: History of coronary artery bypass grafting S/P CABG (coronary artery bypass graft) Preston Healy MD Work Phone: History of coronary artery bypass grafting S/P CABG (coronary artery bypass graft) Preston Healy MD Work Phone: History of coronary artery bypass grafting S/P CABG (coronary artery bypass graft) Preston Healy MD Work Phone: History of coronary artery bypass grafting S/P CABG (coronary artery bypass graft) Preston Healy MD Work Phone: History of coronary artery bypass grafting S/P CABG (coronary artery bypass graft) Preston Healy MD Work Phone: Plan of Treatment Date Care Activity Detail Author Start: 02-09-2026 eGFR Diabetes eGFR Diabetes [facility] Start: 02-04-2026 eGFR Diabetes eGFR Diabetes [facility] Start: 11-12-2025 Diabetic foot examination Diabetic Foot Exam [facility] Start: 11-09-2025 eGFR Diabetes eGFR Diabetes [facility] Start: 11-09-2025 Urine screening for protein eGFR Diabetes [facility] Start: 09-01-2025 Depression Remission Assessment (PHQ9) Depression Remission Assessment (PHQ9) [facility] Start: 08-02-2025 eGFR Diabetes eGFR Diabetes [facility] Start: 07-01-2025 End: 07-01-2025 ambulatory [facility] Start: 07-01-2025 End: 07-01-2025 Patient encounter procedure 07/01/2025 2:00 PM EST Office Visit [facility] [address] [place] [address] Vivien Foreman MD [address] [address] [facility] Start: 05-18-2025 Diabetic foot examination Diabetic Foot Exam [facility] Start: 05-13-2025 End: 05-13-2025 ambulatory [facility] [place] Start: 05-13-2025 End: 05-13-2025 Patient encounter procedure 05/13/2025 1:00 PM EST Office Visit [facility] [place] [address] [place] [address] Radha Hughes, EXCELLENCE MANAGER [address] [place] [address] [facility] [place] Start: 05-11-2025 Urine screening for protein eGFR Diabetes [facility] Start: 04-30-2025 Hemoglobin A1c measurement A1C [facility] Start: 04-26-2025 End: 04-26-2025 ambulatory [facility] Start: 04-26-2025 End: 04-26-2025 Patient encounter procedure 04/26/2025 8:40 AM EDT Office Visit [facility] [address] [place] [phone] Preston Healy MD [address] [address] [facility] Start: 03-11-2025 Influenza vaccination [facility] Start: 03-01-2025 End: 03-01-2025 Follow-up encounter 03/01/2025 3:15 PM EDT Follow-Up [facility] [address] [phone] Dillan Cooper MD [address] [place] [phone] [facility] Start: 02-28-2025 End: 02-28-2025 Patient encounter procedure 02/28/2025 3:40 PM EDT Office Visit [facility] [address] [place] [address] [place] [address] [place], [place] [phone] [facility] Start: 02-26-2025 End: 02-26-2025 ambulatory [facility] Start: 02-26-2025 End: 02-26-2025 Patient encounter procedure 02/26/2025 3:20 PM EDT Office Visit [facility] [address] [place] [address] Vivien Foreman MD [address] [address] [facility] Start: 02-20-2025 End: 02-20-2025 ambulatory [facility] Start: 02-20-2025 End: 02-20-2025 Patient encounter procedure 02/20/2025 10:30 AM EDT Office Visit [facility] [address] [place] [address] Hola Arroyo Jr., DPM [address] [address] [facility] Start: 02-19-2025 Patient discharge [facility] Start: 02-18-2025 Removal of device [facility] Start: 02-16-2025 [facility] Start: 02-14-2025 End: 02-14-2025 ambulatory [facility] Start: 02-14-2025 End: 02-14-2025 Patient encounter procedure 02/14/2025 9:30 AM EDT Office Visit [facility] [address] [place] [address] Sanju Bill III, DO [address] [place] [address] [facility] Start: 02-13-2025 [facility] Start: 02-12-2025 Speech therapy management [facility] Start: 02-12-2025 Administration of blood product [facility] Start: 02-12-2025 [facility] Start: 02-11-2025 Speech therapy assessment [facility] Start: 02-11-2025 Verification routine [facility] Start: 02-11-2025 Following clinical pathway protocol [facility] Start: 02-10-2025 Administration of blood product [facility] Start: 02-10-2025 Development of care plan [facility] Start: 02-10-2025 Developing a treatment plan [facility] Start: 02-10-2025 Wound care [facility] Start: 02-10-2025 Contact precautions [facility] Start: 02-09-2025 End: 02-10-2025 Patient referral to dietitian [facility] Start: 02-09-2025 Consultation for treatment [facility] Start: 02-09-2025 Consultation [facility] Start: 02-09-2025 Admission procedure [facility] Start: 02-09-2025 Introduction of urinary catheter [facility] Start: 02-09-2025 Measuring intake and output [facility] Start: 02-09-2025 Referral to occupational therapist [facility] Start: 02-09-2025 Referral to service [facility] Start: 02-09-2025 Vital signs measurements [facility] Start: 02-09-2025 [facility] Start: 02-09-2025 Hemoglobin A1c measurement A1C [facility] Start: 02-04-2025 End: 02-04-2025 Patient encounter procedure [facility] Start: 01-24-2025 End: 01-24-2025 Patient encounter procedure [facility] Start: 12-12-2024 Glaucoma screening Diabetic Eye Exam [facility] Start: 12-08-2024 Diabetic foot examination Diabetic Foot Exam [facility] Start: 12-01-2024 Urine screening for protein eGFR Diabetes [facility] Start: 11-30-2024 End: 11-30-2024 Patient encounter procedure 11/30/2024 10:00 AM EDT Office Visit [facility] [address] [place] [address] Vivien Foreman MD [address] [address] [facility] Start: 11-28-2024 Fall risk assessment Falls Risk Assessment [facility] Start: 11-28-2024 History and physical examination, annual for health maintenance Wellness Visit [facility] Start: 11-28-2024 Medicare Wellness Visit Medicare Wellness Visit [facility] Start: 11-21-2024 End: 11-21-2024 Patient encounter procedure 11/21/2024 11:15 AM EDT Office Visit [facility] [address] [place] [address] Hola Arroyo Jr., DPM [address] [place] [address] [facility] Start: 11-12-2024 End: 11-12-2024 Patient encounter procedure 11/12/2024 9:15 AM EDT Office Visit [facility] [place] [address] [place] [address] Radha Hughes, EXCELLENCE MANAGER [address] [place] [address] [facility] [place] Start: 11-09-2024 End: 11-09-2025 Complete blood count with white cell differential, manual CBC and Differential Lab Routine Type 2 diabetes mellitus with retinopathy of both eyes, with long-term current use of insulin, macular edema presence unspecified, unspecified retinopathy severity (HCC) Expected: 11/09/2024, Expires: 11/09/2025 [facility] Comment on above: Expected: 11/09/2024, Expires: Start: 11-09-2024 End: 11-09-2025 Comprehensive metabolic 2000 panel - Serum or Plasma Comprehensive metabolic panel Lab Routine Type 2 diabetes mellitus with retinopathy of both eyes, with long-term current use of insulin, macular edema presence unspecified, unspecified retinopathy severity (HCC) Expected: 11/09/2024, Expires: 11/09/2025 [facility] Comment on above: Expected: 11/09/2024, Expires: Start: 11-09-2024 End: 11-09-2025 Hemoglobin A1c/Hemoglobin.total in Blood Hemoglobin A1c Lab Routine Type 2 diabetes mellitus with retinopathy of both eyes, with long-term current use of insulin, macular edema presence unspecified, unspecified retinopathy severity (HCC) Expected: 11/09/2024, Expires: 11/09/2025 [facility] Work Phone: Comment on above: Expected: 11/09/2024, Expires: Start: 11-09-2024 End: 11-09-2025 Lipid 1996 panel - Serum or Plasma Lipid panel Lab Routine Type 2 diabetes mellitus with retinopathy of both eyes, with long-term current use of insulin, macular edema presence unspecified, unspecified retinopathy severity (HCC) Hypercholesterolemia Expected: 11/09/2024, Expires: 11/09/2025 [facility] Comment on above: Expected: 11/09/2024, Expires: Start: 11-09-2024 End: 11-09-2025 Thyrotropin [Units/volume] in Serum or Plasma TSH Lab Routine Type 2 diabetes mellitus with retinopathy of both eyes, with long-term current use of insulin, macular edema presence unspecified, unspecified retinopathy severity (HCC) Expected: 11/09/2024, Expires: 11/09/2025 [facility] Comment on above: Expected: 11/09/2024, Expires: Start: 11-09-2024 End: 11-09-2025 Thyroxine (T4) free [Mass/volume] in Serum or Plasma T4, free Lab Routine Type 2 diabetes mellitus with retinopathy of both eyes, with long-term current use of insulin, macular edema presence unspecified, unspecified retinopathy severity (HCC) Expected: 11/09/2024, Expires: 11/09/2025 [facility] Comment on above: Expected: 11/09/2024, Expires: Start: 11-08-2024 Hemoglobin A1c measurement A1C [facility] Start: 10-19-2024 End: 10-19-2024 Patient encounter procedure 10/19/2024 8:40 AM EDT Office Visit [facility] [address] [place] [phone] Preston Healy MD [address] [address] [facility] Start: 09-28-2024 Depression Remission Assessment (PHQ9) Depression Remission Assessment (PHQ9) [facility] Start: 08-11-2024 Hemoglobin A1c measurement A1C [facility] Start: 06-06-2024 Diabetic foot examination Diabetic Foot Exam [facility] Start: 06-06-2024 End: 06-06-2024 Patient encounter procedure 06/06/2024 11:20 AM EST Office Visit [facility] [address] [place] [address] Vivien Foreman MD [address] [address] [facility] Start: 06-03-2024 Hemoglobin A1c measurement A1C [facility] Start: 05-23-2024 End: 05-23-2024 Patient encounter procedure [facility] Start: 05-18-2024 End: 05-18-2024 Patient encounter procedure [facility] Start: 04-26-2024 End: 04-26-2024 Patient encounter procedure [facility] Start: 03-11-2024 COVID-19 Vaccine () COVID-19 Vaccine () [facility] Start: 03-11-2024 COVID-19 Vaccine () COVID-19 Vaccine () [facility] Start: 03-11-2024 Influenza vaccination [facility] Start: 02-22-2024 End: 02-22-2024 Patient encounter procedure 02/22/2024 2:00 PM EDT Office Visit [facility] [address] [place] [address] Hola Arroyo Jr., DPM [address] [place] [address] [facility] Start: 01-26-2024 End: 01-26-2024 Patient encounter procedure 01/26/2024 9:20 AM EDT Office Visit [facility] [address] [place] [address] Sanju Bill III, DO [address] [place] [address] [facility] Start: 01-24-2024 End: 01-24-2024 ambulatory 01/24/2024 7:45 AM EDT Treatment [facility] [address] [place] [phone] Vivien Foreman MD [address] [address] Santiago Dozier, PT [facility] Start: 01-19-2024 End: 01-19-2024 ambulatory [facility] Start: 01-17-2024 End: 01-17-2024 ambulatory 01/17/2024 7:45 AM EDT [facility] [address] [place] [address] Vivien Foreman MD [address] [address] Lupe Kunz, VIDEO SYSTEM REPAIRER [facility] Start: 01-10-2024 End: 01-10-2024 ambulatory [facility] Start: 01-05-2024 End: 01-05-2024 ambulatory 01/05/2024 7:45 AM EDT [facility] [address] [place] [address] Vivien Foreman MD [address] [place] [address] Santiago Dozier, PT [facility] Start: 01-03-2024 End: 01-03-2024 ambulatory 01/03/2024 7:45 AM EDT Treatment [facility] [place] [address] Vivien Foreman MD [facility] [address] [address] Kar Medel, VIDEO SYSTEM REPAIRER [facility] Start: 12-29-2023 End: 12-29-2023 ambulatory 12/29/2023 7:45 AM EDT [facility] [place] [address] Vivien Foreman MD [facility] [address] [address] Santiago Dozier, PT [facility] Start: 12-27-2023 End: 12-27-2023 ambulatory 12/27/2023 7:45 AM EDT Treatment [facility] [address] [place] [address] Vivien Foreman MD [address] [address] Santiago Dozier, PT Discharge Disposition: Home [facility] Start: 12-19-2023 End: 12-19-2023 ambulatory 12/19/2023 10:00 AM EDT Evaluation [facility] [address] [place] [address] [place] [address] [place] [address] Santiago Dozier, PT Discharge Disposition[facility] Start: 12-09-2023 End: 12-09-2023 Patient encounter procedure 12/09/2023 9:15 AM EDT Office Visit [facility] [place] [address] [address] Radha Hughes, EXCELLENCE MANAGER [address] [place] [address] [facility] [place] Start: 12-04-2023 Diabetic foot examination Foot Exam [facility] Start: 11-30-2023 Urine screening for protein [facility] Start: 11-28-2023 End: 11-28-2023 Patient encounter procedure 11/28/2023 8:00 AM EDT Office Visit [facility] [address] [place] [address] Vivien Foreman MD [address] [address] [facility] Start: 11-11-2023 End: 11-11-2023 Patient encounter procedure 11/11/2023 9:40 AM EDT Office Visit [facility] [address] [address] Preston Healy MD [address] [address] [facility] Start: 10-27-2023 End: 10-27-2023 Patient encounter procedure 10/27/2023 9:40 AM EDT Office Visit [facility] [address] [place] [address] Sanju Bill III, DO [address] [place] [address] [facility] Start: 10-03-2023 End: 06-06-2024 Comprehensive metabolic 2000 panel - Serum or Plasma Comprehensive Metabolic Panel Lab Routine Type 2 diabetes mellitus with retinopathy of both eyes, with long-term current use of insulin, macular edema presence unspecified, unspecified retinopathy severity (HCC) Expected: 10/03/2023, Expires: 06/06/2024 [facility] Work Phone: Comment on above: Expected: 10/03/2023, Expires: Start: 10-03-2023 End: 06-06-2024 Hemoglobin A1c/Hemoglobin.total in Blood Hemoglobin A1c Lab Routine Type 2 diabetes mellitus with retinopathy of both eyes, with long-term current use of insulin, macular edema presence unspecified, unspecified retinopathy severity (HCC) Expected: 10/03/2023, Expires: 06/06/2024 [facility] Comment on above: Expected: 10/03/2023, Expires: Start: 10-03-2023 End: 06-06-2024 Thyrotropin [Units/volume] in Serum or Plasma TSH Lab Routine Type 2 diabetes mellitus with retinopathy of both eyes, with long-term current use of insulin, macular edema presence unspecified, unspecified retinopathy severity (HCC) Expected: 10/03/2023, Expires: 06/06/2024 [facility] Comment on above: Expected: 10/03/2023, Expires: Start: 10-03-2023 End: 06-06-2024 Thyroxine (T4) free [Mass/volume] in Serum or Plasma T4, Free Lab Routine Type 2 diabetes mellitus with retinopathy of both eyes, with long-term current use of insulin, macular edema presence unspecified, unspecified retinopathy severity (HCC) Expected: 10/03/2023, Expires: 06/06/2024 [facility] Comment on above: Expected: 10/03/2023, Expires: Start: 09-01-2023 Hemoglobin A1c measurement A1C [facility] Start: 08-08-2023 End: 08-08-2023 ambulatory 08/08/2023 11:00 AM EST Patient Outreach [facility] [address] [place] [address] [facility] Start: 07-28-2023 End: 07-28-2023 Patient encounter procedure 07/28/2023 9:00 AM EST Office Visit [facility] [address] [place] [address] Sanju Bill III, DO [address] [place] [address] [facility] Start: 07-14-2023 End: 07-14-2023 Patient encounter procedure 07/14/2023 2:00 PM EST Appointment [facility] CT Scan [address] [place] [address] Sanju Bill III, DO [address] [place] [address] [facility] CT Scan Start: 07-12-2023 End: 07-12-2023 Patient encounter procedure 07/12/2023 8:00 AM EST Office Visit [facility] [place] [address] Vivien Foreman MD [address] [address] [facility] Start: 06-30-2023 End: 06-30-2023 Patient encounter procedure [facility] Start: 06-14-2023 Fall risk assessment Falls Risk Assessment [facility] Start: 06-14-2023 History and physical examination, annual for health maintenance Wellness Visit [facility] Start: 06-06-2023 End: 06-06-2023 Patient encounter procedure 06/06/2023 9:15 AM EST Office Visit [facility] [place] [address] [place] [phone] Radha Hughes, EXCELLENCE MANAGER [address] [place] [address] [facility] [place] Start: 06-01-2023 Urine screening for protein Urine (micro)albumin/creatinine ratio - Diabetes [facility] Start: 05-13-2023 End: 05-13-2023 Patient encounter procedure 05/13/2023 8:00 AM EDT Office Visit [facility] [address] [place] [phone] Hola Arroyo Jr., DPM [address] [place] [address] [facility] Start: 04-14-2023 Depression Remission Assessment (PHQ9) Depression Remission Assessment (PHQ9) [facility] Start: 04-05-2023 Glaucoma screening [facility] Start: 03-11-2023 COVID-19 Vaccine ( season) COVID-19 Vaccine ( season) [facility] Start: 03-11-2023 Influenza vaccination Sequential Influenza Vaccine (#1) [facility] Start: 03-04-2023 End: 03-04-2023 Patient encounter procedure 03/04/2023 8:20 AM EDT Office Visit [facility] [address] [place] [address] Preston Heayl MD [address] [address] [facility] Start: 03-01-2023 Hemoglobin A1c measurement A1C [facility] Start: 02-19-2023 Diabetic foot examination Foot Exam [facility] Start: 01-21-2023 End: 01-21-2023 Patient encounter procedure [facility] Start: 01-07-2023 End: 01-07-2023 Patient encounter procedure [facility] Start: 12-09-2022 End: 12-09-2022 Patient encounter procedure [facility] Start: 12-02-2022 Glaucoma screening Ophthalmology Exam [facility] Start: 11-19-2022 End: 11-19-2022 Patient encounter procedure 11/19/2022 Office Visit Cardiology Preston Healy MD [address] [address] [facility] Start: 10-12-2022 Diabetic foot examination Foot Exam [facility] Start: 07-09-2022 End: 07-09-2022 Patient encounter procedure 07/09/2022 Office Visit Podiatry Hola Arroyo Jr., DPM [address] [place] [address] [facility] [facility] Start: 07-07-2022 End: 07-07-2022 Patient encounter procedure 07/07/2022 Office Visit Podiatry Hola Arroyo Jr., DPM [address] [place] [address] [facility] Start: 06-15-2022 Diabetic foot examination Foot Exam [facility] Start: 06-14-2022 End: 06-14-2022 Patient encounter procedure 06/14/2022 Office Visit Primary Care Vivien Foreman MD [address] [id number] [facility] Start: 06-12-2022 Fall risk assessment Falls Risk Assessment [facility] Start: 06-10-2022 End: 02-20-2023 Comprehensive metabolic 2000 panel - Serum or Plasma Comprehensive Metabolic Panel Lab Routine Type 2 diabetes mellitus with retinopathy of both eyes, with long-term current use of insulin, macular edema presence unspecified, unspecified retinopathy severity (HCC) Expected: 06/10/2022, Expires: 02/20/2023 [facility] Work Phone: Comment on above: Expected: 06/10/2022, Expires: 3 Start: 06-10-2022 End: 02-20-2023 Hemoglobin A1c/Hemoglobin.total in Blood Hemoglobin A1c Lab Routine Type 2 diabetes mellitus with retinopathy of both eyes, with long-term current use of insulin, macular edema presence unspecified, unspecified retinopathy severity (HCC) Expected: 06/10/2022, Expires: 02/20/2023 [facility] Comment on above: Expected: 06/10/2022, Expires: 3 Start: 06-10-2022 End: 02-20-2023 Lipid 1996 panel - Serum or Plasma Lipid Panel Lab Routine Type 2 diabetes mellitus with retinopathy of both eyes, with long-term current use of insulin, macular edema presence unspecified, unspecified retinopathy severity (HCC) Expected: 06/10/2022, Expires: 02/20/2023 [facility] Comment on above: Expected: 06/10/2022, Expires: 3 Start: 06-10-2022 End: 02-20-2023 Thyrotropin [Units/volume] in Serum or Plasma TSH Lab Routine Type 2 diabetes mellitus with retinopathy of both eyes, with long-term current use of insulin, macular edema presence unspecified, unspecified retinopathy severity (HCC) Expected: 06/10/2022, Expires: 02/20/2023 [facility] Comment on above: Expected: 06/10/2022, Expires: 3 Start: 06-10-2022 End: 02-20-2023 Thyroxine (T4) free [Mass/volume] in Serum or Plasma T4, Free Lab Routine Type 2 diabetes mellitus with retinopathy of both eyes, with long-term current use of insulin, macular edema presence unspecified, unspecified retinopathy severity (HCC) Expected: 06/10/2022, Expires: 02/20/2023 [facility] Comment on above: Expected: 06/10/2022, Expires: Start: 06-10-2022 End: 06-10-2022 Patient encounter procedure 06/10/2022 Office Visit Cardiology Sanju Bill III, DO [address] [place] [address] [facility] Start: 05-20-2022 Hemoglobin A1c measurement A1C [facility] Start: 05-14-2022 End: 05-14-2022 Patient encounter procedure 05/14/2022 Office Visit Cardiology Preston Healy MD [address] [address] [facility] Start: 04-11-2022 COVID-19 Vaccine (5 - Booster for Moderna series) COVID-19 Vaccine (5 - Booster for Moderna series) [facility] Start: 04-07-2022 End: 04-07-2022 Patient encounter procedure 04/07/2022 Office Visit Podiatry Hola Arroyo Jr., DPM [address] [place] [address] [facility] Start: 03-17-2022 End: 03-17-2022 Patient encounter procedure [facility] Start: 03-11-2022 Influenza vaccination Sequential Influenza Vaccine (#1) [facility] Start: 03-11-2022 End: 03-11-2022 Patient encounter procedure [facility] Start: 03-02-2022 Diabetic foot examination Foot Exam [facility] Start: 03-02-2022 Fall risk assessment Falls Risk Assessment [facility] Start: 03-02-2022 History and physical examination, annual for health maintenance Wellness Visit [facility] Start: 02-22-2022 End: 02-22-2022 Patient encounter procedure 02/22/2022 Office Visit Primary Care Vivien Foreman MD [address] [address] [facility] Start: 02-19-2022 End: 02-19-2022 Patient encounter procedure 02/19/2022 Office Visit Endocrinology Radha Hughes, EXCELLENCE MANAGER [address] [place] [address] [facility] [place] Start: 02-10-2022 End: 02-10-2022 Patient encounter procedure [facility] Start: 02-08-2022 End: 10-13-2022 Complete blood count with white cell differential, manual CBC and Differential Lab Routine Type 2 diabetes mellitus with retinopathy of both eyes, with long-term current use of insulin, macular edema presence unspecified, unspecified retinopathy severity (HCC) Expected: 02/08/2022, Expires: 10/13/2022 [facility] Comment on above: Expected: 02/08/2022, Expires: 3 Start: 02-08-2022 End: 10-13-2022 Comprehensive metabolic 2000 panel - Serum or Plasma Comprehensive Metabolic Panel Lab Routine Type 2 diabetes mellitus with retinopathy of both eyes, with long-term current use of insulin, macular edema presence unspecified, unspecified retinopathy severity (HCC) Expected: 02/08/2022, Expires: 10/13/2022 [facility] Work Phone: Comment on above: Expected: 02/08/2022, Expires: 3 Start: 02-08-2022 End: 10-13-2022 Hemoglobin A1c/Hemoglobin.total in Blood Hemoglobin A1c Lab Routine Type 2 diabetes mellitus with retinopathy of both eyes, with long-term current use of insulin, macular edema presence unspecified, unspecified retinopathy severity (HCC) Expected: 02/08/2022, Expires: 10/13/2022 [facility] Comment on above: Expected: 02/08/2022, Expires: 3 Start: 02-08-2022 End: 02-08-2022 Patient encounter procedure 02/08/2022 Office Visit Cardiology Preston Healy MD [address] [address] Osbaldo Jim MD [address] [place] [address] [facility] Start: 02-04-2022 COVID-19 Vaccine (5 - Booster for Moderna series) COVID-19 Vaccine (5 - Booster for Moderna series) [facility] Start: 01-07-2022 Hemoglobin A1c measurement A1C [facility] Start: 01-05-2022 Diabetic foot examination Foot Exam [facility] Start: 01-05-2022 Pneumococcal Vaccine: Age 65+ (3 - PPSV23 or PCV20) Pneumococcal Vaccine: Age 65+ (3 - PPSV23 or PCV20) [facility] Start: 12-31-2021 Depression Remission Assessment (PHQ9) Depression Remission Assessment (PHQ9) [facility] Start: 12-25-2021 Subsequent hospital visit by physician 12/25/2021 Hospital Encounter Cardiology Adilson Stone MD [address] [place] [address] [facility] Start: 12-23-2021 End: 12-23-2021 Patient encounter procedure 12/23/2021 Office Visit Podiatry Hola Arroyo Jr., DPOlegario [address] [place] [id number] [facility] Start: 12-22-2021 End: 12-22-2021 Patient encounter procedure 12/22/2021 Appointment Cardiology Preston Healy MD [address] [address] [facility] Start: 12-22-2021 Ophthalmic examination and evaluation Ophthalmology Exam [facility] Start: 12-17-2021 Microalbumin measurement, urine, quantitative Urine Microalbumin [facility] Start: 12-17-2021 Urine screening for protein Urine Microalbumin [facility] Start: 12-16-2021 Depression screening using PHQ-9 (Patient Health Questionnaire 9) score Depression Screening (PHQ9) [facility] Start: 12-16-2021 Fall risk assessment Falls Risk Assessment [facility] Start: 12-10-2021 End: 12-10-2021 Patient encounter procedure 12/10/2021 Office Visit Primary Care Vivien Foreman MD [address] [address] [facility] Start: 10-16-2021 Depression Remission Assessment (PHQ9) Depression Remission Assessment (PHQ9) [facility] Start: 10-12-2021 End: 10-12-2021 Patient encounter procedure 10/12/2021 Office Visit Endocrinology Radha Hughes, EXCELLENCE MANAGER [address] [place] [address] [facility] [place] Start: 10-09-2021 End: 06-16-2022 Comprehensive metabolic 2000 panel - Serum or Plasma Comprehensive Metabolic Panel Lab Routine Type 2 diabetes mellitus with retinopathy of both eyes, with long-term current use of insulin, macular edema presence unspecified, unspecified retinopathy severity (HCC) Expected: 10/09/2021, Expires: 06/16/2022 [facility] Work Phone: Comment on above: Expected: 10/09/2021, Expires: 2 Start: 10-09-2021 End: 06-16-2022 Hemoglobin A1c/Hemoglobin.total in Blood Hemoglobin A1c Lab Routine Type 2 diabetes mellitus with retinopathy of both eyes, with long-term current use of insulin, macular edema presence unspecified, unspecified retinopathy severity (HCC) Expected: 10/09/2021, Expires: 06/16/2022 [facility] Comment on above: Expected: 10/09/2021, Expires: 2 Start: 10-09-2021 End: 06-16-2022 Lipid 1996 panel - Serum or Plasma Lipid Panel Lab Routine Type 2 diabetes mellitus with retinopathy of both eyes, with long-term current use of insulin, macular edema presence unspecified, unspecified retinopathy severity (HCC) Expected: 10/09/2021, Expires: 06/16/2022 [facility] Comment on above: Expected: 10/09/2021, Expires: 2 Start: 10-09-2021 End: 06-16-2022 Thyrotropin [Units/volume] in Serum or Plasma TSH Lab Routine Type 2 diabetes mellitus with retinopathy of both eyes, with long-term current use of insulin, macular edema presence unspecified, unspecified retinopathy severity (HCC) Expected: 10/09/2021, Expires: 06/16/2022 [facility] Comment on above: Expected: 10/09/2021, Expires: 2 Start: 10-09-2021 End: 06-16-2022 Thyroxine (T4) free [Mass/volume] in Serum or Plasma T4, Free Lab Routine Type 2 diabetes mellitus with retinopathy of both eyes, with long-term current use of insulin, macular edema presence unspecified, unspecified retinopathy severity (HCC) Expected: 10/09/2021, Expires: 06/16/2022 [facility] Comment on above: Expected: 10/09/2021, Expires: 2 Start: 09-10-2021 Hemoglobin A1c measurement A1C [facility] Start: 08-28-2021 Hemoglobin A1c measurement A1C [facility] Start: 07-11-2021 COVID-19 Vaccine (2 - Moderna risk 4-dose series) COVID-19 Vaccine (2 - Moderna risk 4-dose series) [facility] Start: 06-24-2021 End: 06-24-2021 Patient encounter procedure 06/24/2021 Office Visit Podiatry Hola Arroyo Jr., DPOlegario [address] [place] [address] [facility] Start: 06-19-2021 End: 06-19-2021 Patient encounter procedure 06/19/2021 Office Visit Cardiology Preston Healy MD [address] [place] [id number] [facility] Start: 06-18-2021 Hemoglobin A1c measurement A1C [facility] Start: 06-15-2021 End: 06-15-2021 Patient encounter procedure 06/15/2021 Office Visit Endocrinology Radha Hughes, JOHN [address] [place] [address] [facility] Start: 06-12-2021 End: 06-12-2021 Patient encounter procedure 06/12/2021 Office Visit Primary Care Vivien Foreman MD [address] [address] [facility] Start: 06-01-2021 End: 06-01-2021 Patient encounter procedure 06/01/2021 Office Visit Endocrinology Radha Hughes CNP [address] [place] [address] [facility] Start: 05-25-2021 End: 05-25-2021 Patient encounter procedure 05/25/2021 Office Visit Endocrinology Radha Hughes CNP [address] [place] [address] [facility] Start: 05-12-2021 Diabetic foot examination Foot Exam [facility] Start: 05-11-2021 End: 03-03-2022 Comprehensive metabolic 2000 panel - Serum or Plasma Comprehensive Metabolic Panel Lab Routine Type 2 diabetes mellitus with retinopathy of both eyes, with long-term current use of insulin, macular edema presence unspecified, unspecified retinopathy severity (HCC) Expected: 05/11/2021, Expires: 03/03/2022 [facility] Work Phone: Comment on above: Expected: 05/11/2021, Expires: Start: 05-11-2021 End: 03-03-2022 Hemoglobin A1c/Hemoglobin.total in Blood Hemoglobin A1c Lab Routine Type 2 diabetes mellitus with retinopathy of both eyes, with long-term current use of insulin, macular edema presence unspecified, unspecified retinopathy severity (HCC) Expected: 05/11/2021, Expires: 03/03/2022 [facility] Comment on above: Expected: 05/11/2021, Expires: 2 Start: 05-11-2021 End: 03-03-2022 Thyrotropin [Units/volume] in Serum or Plasma TSH Lab Routine Type 2 diabetes mellitus with retinopathy of both eyes, with long-term current use of insulin, macular edema presence unspecified, unspecified retinopathy severity (HCC) Expected: 05/11/2021, Expires: 03/03/2022 [facility] Comment on above: Expected: 05/11/2021, Expires: 2 Start: 05-11-2021 End: 03-03-2022 Thyroxine (T4) free [Mass/volume] in Serum or Plasma T4, Free Lab Routine Type 2 diabetes mellitus with retinopathy of both eyes, with long-term current use of insulin, macular edema presence unspecified, unspecified retinopathy severity (HCC) Expected: 05/11/2021, Expires: 03/03/2022 [facility] Comment on above: Expected: 05/11/2021, Expires: 2 Start: 04-28-2021 Administration of herpes zoster vaccine Zoster Vaccines (2 of 2) [facility] Start: 03-18-2021 Tetanus vaccination Tetanus: Every 10yrs [facility] Start: 03-11-2021 End: 01-06-2022 Comprehensive metabolic 2000 panel - Serum or Plasma Comprehensive Metabolic Panel Lab Routine Type 2 diabetes mellitus with retinopathy of both eyes, with long-term current use of insulin, macular edema presence unspecified, unspecified retinopathy severity (HCC) Expected: 03/11/2021, Expires: 01/06/2022 [facility] Comment on above: Expected: 03/11/2021, Expires: 2 Start: 03-11-2021 End: 01-06-2022 Hemoglobin A1c/Hemoglobin.total in Blood Hemoglobin A1c Lab Routine Type 2 diabetes mellitus with retinopathy of both eyes, with long-term current use of insulin, macular edema presence unspecified, unspecified retinopathy severity (HCC) Expected: 03/11/2021, Expires: 01/06/2022 [facility] Comment on above: Expected: 03/11/2021, Expires: 2 Start: 03-11-2021 Influenza vaccination Sequential Influenza Vaccine (#1) [facility] Start: 03-11-2021 End: 01-06-2022 Thyrotropin [Units/volume] in Serum or Plasma TSH Lab Routine Type 2 diabetes mellitus with retinopathy of both eyes, with long-term current use of insulin, macular edema presence unspecified, unspecified retinopathy severity (HCC) Expected: 03/11/2021, Expires: 01/06/2022 [facility] Comment on above: Expected: 03/11/2021, Expires: Start: 03-11-2021 End: 01-06-2022 Thyroxine (T4) free [Mass/volume] in Serum or Plasma T4, Free Lab Routine Type 2 diabetes mellitus with retinopathy of both eyes, with long-term current use of insulin, macular edema presence unspecified, unspecified retinopathy severity (HCC) Expected: 03/11/2021, Expires: 01/06/2022 [facility] Comment on above: Expected: 03/11/2021, Expires: 2 Start: 03-02-2021 End: 03-02-2021 Telemedicine consultation with patient 03/02/2021 Telemedicine Primary Care Vivien Foreman MD [address] [address] [phone] [facility] Start: 03-02-2021 End: 03-02-2021 Patient encounter procedure [facility] [place] Start: 02-27-2021 End: 02-27-2021 Patient encounter procedure 02/27/2021 Office Visit Cardiology Preston Healy MD [address] [address] [phone] [facility] Start: 02-02-2021 End: 02-02-2021 Patient encounter procedure 02/02/2021 Appointment Cardiology Preston Healy MD [address] [address] [phone] [facility] Start: 01-13-2021 End: 01-13-2021 Patient encounter procedure 01/13/2021 Appointment Cardiology Preston Healy MD [address] [address] [phone] [facility] Start: 01-09-2021 End: 01-09-2021 Office Visit 01/09/2021 Office Visit Cardiology Preston Healy MD [address] [address] [phone] [facility] Start: 01-05-2021 End: 01-05-2021 Patient encounter procedure [facility] Start: 12-30-2020 Diabetic foot examination Foot Exam [facility] Start: 11-03-2020 HbA1c (Bld) [Mass fraction] A1C [facility] Start: 11-03-2020 Hemoglobin A1c measurement A1C [facility] Start: 10-13-2020 End: 10-13-2020 Office Visit [facility] Start: 10-07-2020 End: 05-13-2021 Complete blood count with white cell differential, manual CBC and Differential Lab Routine Type 2 diabetes mellitus with retinopathy of both eyes, with long-term current use of insulin, macular edema presence unspecified, unspecified retinopathy severity (HCC) Expected: 10/07/2020, Expires: 05/13/2021 [facility] Comment on above: Expected: 10/07/2020, Expires: Start: 10-07-2020 End: 05-13-2021 Comprehensive metabolic 2000 panel Comprehensive Metabolic Panel Lab Routine Type 2 diabetes mellitus with retinopathy of both eyes, with long-term current use of insulin, macular edema presence unspecified, unspecified retinopathy severity (HCC) Expected: 10/07/2020, Expires: 05/13/2021 [facility] Comment on above: Expected: 10/07/2020, Expires: Start: 10-07-2020 End: 05-13-2021 Free T4 [Mass/Vol] T4, Free Lab Routine Type 2 diabetes mellitus with retinopathy of both eyes, with long-term current use of insulin, macular edema presence unspecified, unspecified retinopathy severity (HCC) Expected: 10/07/2020, Expires: 05/13/2021 [facility] Comment on above: Expected: 10/07/2020, Expires: Start: 10-07-2020 End: 05-13-2021 HbA1c (Bld) [Mass fraction] Hemoglobin A1c Lab Routine Type 2 diabetes mellitus with retinopathy of both eyes, with long-term current use of insulin, macular edema presence unspecified, unspecified retinopathy severity (HCC) Expected: 10/07/2020, Expires: 05/13/2021 [facility] Comment on above: Expected: 10/07/2020, Expires: Start: 10-07-2020 End: 05-13-2021 Lipid 1996 panel Lipid Panel Lab Routine Type 2 diabetes mellitus with retinopathy of both eyes, with long-term current use of insulin, macular edema presence unspecified, unspecified retinopathy severity (HCC) Expected: 10/07/2020, Expires: 05/13/2021 [facility] Comment on above: Expected: 10/07/2020, Expires: Start: 10-07-2020 End: 05-13-2021 TSH Qn TSH Lab Routine Type 2 diabetes mellitus with retinopathy of both eyes, with long-term current use of insulin, macular edema presence unspecified, unspecified retinopathy severity (HCC) Expected: 10/07/2020, Expires: 05/13/2021 [facility] Comment on above: Expected: 10/07/2020, Expires: Start: 06-27-2020 HbA1c (Bld) [Mass fraction] A1C [facility] Start: 05-05-2020 End: 05-05-2020 Office Visit 05/05/2020 Office Visit Endocrinology Radha Hughes, EXCELLENCE MANAGER [address] [place] [id number] [phone] [facility] Start: 04-15-2020 End: 12-31-2020 Comprehensive metabolic 2000 panel Comprehensive Metabolic Panel Lab Routine Type 2 diabetes mellitus with retinopathy of both eyes, with long-term current use of insulin, macular edema presence unspecified, unspecified retinopathy severity (HCC) Expected: 04/15/2020, Expires: 12/31/2020 [facility] Comment on above: Expected: 04/15/2020, Expires: 1 Start: 04-15-2020 End: 12-31-2020 Free T4 [Mass/Vol] T4, Free Lab Routine Type 2 diabetes mellitus with retinopathy of both eyes, with long-term current use of insulin, macular edema presence unspecified, unspecified retinopathy severity (HCC) Expected: 04/15/2020, Expires: 12/31/2020 [facility] Comment on above: Expected: 04/15/2020, Expires: 1 Start: 04-15-2020 End: 12-31-2020 HbA1c (Bld) [Mass fraction] Hemoglobin A1c Lab Routine Type 2 diabetes mellitus with retinopathy of both eyes, with long-term current use of insulin, macular edema presence unspecified, unspecified retinopathy severity (HCC) Expected: 04/15/2020, Expires: 12/31/2020 [facility] Comment on above: Expected: 04/15/2020, Expires: 1 Start: 04-15-2020 End: 12-31-2020 TSH Qn TSH Lab Routine Type 2 diabetes mellitus with retinopathy of both eyes, with long-term current use of insulin, macular edema presence unspecified, unspecified retinopathy severity (HCC) Expected: 04/15/2020, Expires: 12/31/2020 [facility] Comment on above: Expected: 04/15/2020, Expires: 1 Start: 03-11-2020 Influenza vaccination given [facility] Start: 03-01-2020 Diabetic foot examination FOOT EXAM [facility] Start: 02-01-2020 End: 02-01-2020 Office Visit 02/01/2020 Office Visit Cardiology Preston Healy MD [address] [address] [phone] [facility] Start: 11-05-2019 End: 11-05-2019 Office Visit 11/05/2019 Office Visit Endocrinology Radha Hguhes, EXCELLENCE MANAGER [address] [address] [phone] [facility] Start: 10-31-2019 Diabetic foot examination FOOT EXAM [facility] Start: 10-24-2019 Microalbumin measurement, urine, quantitative Urine Microalbumin [facility] Start: 10-11-2019 End: 10-11-2019 Treatment 10/11/2019 Treatment Rehabilitation Amanda Johnson, EXCELLENCE MANAGER [address] [place] [address] [phone] Joyce Moraes PTA [facility] Start: 08-23-2019 HbA1c (Bld) [Mass fraction] A1C [facility] Start: 06-29-2019 Diabetic foot examination FOOT EXAM [facility] Start: 06-21-2019 End: 06-21-2019 Office Visit 06/21/2019 Office Visit Endocrinology Radha Hughes CNP [address] [place] [address] [phone] [facility] Start: 2019 Respiratory Syncytial Virus Immunization: Risk, 60-74 Risk, or 75+ (1 - 1-dose 75+ series) Respiratory Syncytial Virus Immunization: Risk, 60-74 Risk, or 75+ (1 - 1-dose 75+ series) [facility] Start: 04-24-2019 Hemoglobin A1c/Hemoglobin.total mass fraction (Bld) A1C [facility] Start: 03-11-2019 Influenza vaccination given [facility] Start: 03-01-2019 End: 03-01-2019 Office Visit 03/01/2019 Office Visit Endocrinology Radha Hughes CNP [address] [place] [address] [phone] [facility] Start: 01-03-2019 End: 01-03-2019 Follow-Up 01/03/2019 Follow-Up Sports Medicine Jenaro Oquenod MD [address] [place] [address] [phone] [facility] Start: 12-26-2018 End: 12-26-2018 Surgery 12/26/2018 Surgery Jenaro Oquendo MD [address] [place] [address] [phone] TENDON RELEASE DE QUERVAINS [facility] Comment on above: TENDON RELEASE DE QUERVAHEATHER Start: 12-26-2018 End: 12-26-2018 Hospital Encounter [facility] Comment on above: TENDON RELEASE DE QUERVAHEATHER RIGHT Start: 12-15-2018 End: 12-15-2018 Office Visit 12/15/2018 Office Visit Sports Medicine Jenaro Oquendo MD [address] [address] [phone] [facility] Start: 12-12-2018 End: 12-12-2018 Appointment 12/12/2018 Appointment Cardiology Preston Healy MD [address] [address] [phone] [facility] Start: 12-08-2018 End: 12-08-2018 Appointment 12/08/2018 Appointment Cardiology Preston Healy MD [address] [address] [phone] [facility] Start: 12-07-2018 End: 12-07-2018 Appointment 12/07/2018 Appointment Cardiology Preston Healy MD [address] [address] [phone] [facility] Start: 12-01-2018 End: 12-01-2018 Office Visit 12/01/2018 Office Visit Cardiology Preston Healy MD [address] [address] [phone] [facility] Start: 11-07-2018 Diabetic foot examination (regime/therapy) FOOT EXAM [facility] Start: 10-30-2018 End: 10-30-2018 Ambulatory 10/30/2018 Office Visit Endocrinology Estephania Yeh MD [facility] Blayne Camargo [address] [address] [phone] [facility] Start: 03-14-2018 End: 03-14-2018 Ambulatory 03/14/2018 Office Visit Endocrinology Vipul Arnold PA-C [address] [address] [phone] [facility] Start: 03-11-2018 Influenza vaccination [facility] Start: 03-11-2018 Influenza vaccination given SEQUENTIAL INFLUENZA VACCINE (#1) [facility] Start: 02-09-2018 Diabetic foot examination (regime/therapy) FOOT EXAM [facility] Work Phone: Start: 02-09-2018 FOOT EXAM FOOT EXAM [facility] Work Phone: Start: 12-26-2017 End: 12-26-2017 Ambulatory 12/26/2017 Office Visit Sports Medicine Dillan Cooper MD [address] [place] [address] [phone] [facility] Start: 11-21-2017 End: 11-21-2017 Ambulatory 11/21/2017 Appointment Cardiology Preston Healy MD [address] [address] [phone] [facility] Start: 11-07-2017 End: 11-07-2017 Ambulatory 11/07/2017 Office Visit Endocrinology Radha Hughes CNP [address] [address] [phone] [facility] Start: 11-04-2017 Ambulatory 11/04/2017 Office Visit Cardiology Preston Healy MD [address] [place] [id number] [phone] [facility] Start: 06-13-2017 Ambulatory 06/13/2017 Office Visit Endocrinology Radha Hughes CNP [address] [address] [phone] [facility] Start: 03-11-2017 Influenza vaccination SEQUENTIAL INFLUENZA VACCINE (#1) [facility] Work Phone: Start: 03-11-2017 SEQUENTIAL INFLUENZA VACCINE (#1) SEQUENTIAL INFLUENZA VACCINE (#1) [facility] Work Phone: Start: 03-10-2017 Ambulatory 03/10/2017 Office Visit Cardiology Preston Healy MD [address] [place] [address] [phone] [facility] Start: 09-05-2013 Pneumococcal vaccination Pneumococcal Vaccine Age 65+ (2 of 2 - PCV13) [facility] Start: 2009 ABDOMINAL AORTIC ULTRASOUND ABDOMINAL AORTIC ULTRASOUND [facility] Work Phone: Start: 2009 Fall risk assessment Falls Risk Assessment [facility] Start: 2009 Pneumococcal vaccination PNEUMOCOCCAL VACCINE AGE 65+ (1 of 2 - PCV13) [facility] Work Phone: Start: 2009 PNEUMOCOCCAL VACCINE AGE 65+ (1 of 2 - PCV13) PNEUMOCOCCAL VACCINE AGE 65+ (1 of 2 - PCV13) [facility] Work Phone: Start: 2009 Ultrasound scan of abdominal aorta ABDOMINAL AORTIC ULTRASOUND [facility] Work Phone: Start: 2004 Zoster vacc, sc ZOSTER VACCINE [facility] Work Phone: Start: 1994 Administration of herpes zoster vaccine Zoster Vaccines (1 of 2) [facility] Start: 1994 Screening for malignant neoplasm of colon [facility] Start: 1994 ZOSTER VACCINES (1 of 2) ZOSTER VACCINES (1 of 2) [facility] Start: 1962 Hepatitis C antibody, confirmatory test Hepatitis C Screening [facility] Start: 1962 Hepatitis C screening Hepatitis C Screening [facility] Start: 1960 COVID-19 Vaccine (1 of 2) COVID-19 Vaccine (1 of 2) [facility] Start: 1960 COVID-19 Vaccine (1) COVID-19 Vaccine (1) [facility] Start: 1956 Adolescent depression screening assessment Depression Screening (PHQ9) [facility] Start: 1956 COVID-19 Vaccine (1) COVID-19 Vaccine (1) [facility] Start: 1954 Diabetic foot examination Diabetic Foot Exam [facility] Start: 1954 Ophthalmic examination and evaluation OPHTHALMOLOGY EXAM [facility] Start: 1954 OPHTHALMOLOGY EXAM OPHTHALMOLOGY EXAM [facility] Work Phone: Start: 1954 URINE MICROALBUMIN URINE MICROALBUMIN [facility] Work Phone: Start: 1954 Urine, microalbumin URINE MICROALBUMIN [facility] Work Phone: Start: 1950 Pneumococcal Vaccine: Age 65+ (1 of 4 - PCV13) Pneumococcal Vaccine: Age 65+ (1 of 4 - PCV13) [facility] Start: 1947 History and physical examination, annual for health maintenance Wellness Visit [facility] Start: 1944 Colonoscopy COLONOSCOPY [facility] Work Phone: Start: 1944 HbA1c HEMOGLOBIN A1C [facility] Work Phone: Start: 1944 HEMOGLOBIN A1C HEMOGLOBIN A1C [facility] Work Phone: Start: 1944 Screening colonoscopy COLONOSCOPY [facility] Work Phone: Start: 1944 TETANUS EVERY 10 YR TETANUS EVERY 10 YR [facility] Work Phone: Start: 1944 End: 1944 Tetanus vaccination [facility] Work Phone: Start: 1944 Depression screening using PHQ-9 (Patient Health Questionnaire 9) score DEPRESSION SCREENING (PHQ9) [facility] Start: 1944 Fall risk assessment Falls Risk Assessment [facility] Start: 1944 Physical therapy management PT Plan of Care [facility] Start: 1944 Prostate specific antigen measurement PSA Level [facility] Start: 1944 Screening for malignant neoplasm of colon Colorectal Cancer Screening: Colonoscopy [facility] Start: 1944 Screening for substance abuse SUBSTANCE ABUSE SCREENING (AUDIT-C) [facility] Start: 1944 US scan of abdominal aorta Abdominal Aortic Ultrasound [facility] 12 lead ECG ECG 12 Lead ECG Routine Preoperative testing Ordered: 12/21/2018 [facility] Comment on above: Ordered: 12/21/2018 Anion gap in Serum o r Plasma [facility] Anion gap in Serum o r Plasma [facility] Anion gap in Serum o r Plasma [facility] Anion gap in Serum o r Plasma [facility] Anion gap in Serum o r Plasma [facility] Anion gap in Serum o r Plasma [facility] Anion gap in Serum o r Plasma [facility] Anion gap in Serum o r Plasma [facility] BUN/Creatinine ratio [facility] BUN/Creatinine ratio [facility] BUN/Creatinine ratio [facility] BUN/Creatinine ratio [facility] BUN/Creatinine ratio [facility] BUN/Creatinine ratio [facility] BUN/Creatinine ratio [facility] BUN/Creatinine ratio [facility] End: 01-22-2024 C reactive protein [Mass/volume] in Serum or Plasma CRP, Inflammation Lab Routine Diarrhea, unspecified type 1 Occurrences starting 01/21/2023 until 01/22/2024 [facility] Comment on above: 1 Occurrences starting 01/21/2023 until 01/22/2024 C reactive protein [Mass/volume] in Serum or Plasma CRP, Inflammation Lab Routine Diarrhea, unspecified type 01/21/2023 10:37 AM EDT [facility] C reactive protein [Mass/volume] in Serum or Plasma [facility] C reactive protein [Mass/volume] in Serum or Plasma [facility] Calcium [Mass/volume ] in Serum or Plasma [facility] Calcium [Mass/volume ] in Serum or Plasma [facility] Calcium [Mass/volume ] in Serum or Plasma [facility] Calcium [Mass/volume ] in Serum or Plasma [facility] Calcium [Mass/volume ] in Serum or Plasma [facility] Calcium [Mass/volume ] in Serum or Plasma [facility] Calcium [Mass/volume ] in Serum or Plasma [facility] Calcium [Mass/volume ] in Serum or Plasma [facility] Carbon dioxide, tota l [Moles/volume] in Central venous blood [facility] Carbon dioxide, tota l [Moles/volume] in Central venous blood [facility] Carbon dioxide, tota l [Moles/volume] in Central venous blood [facility] Carbon dioxide, tota l [Moles/volume] in Central venous blood [facility] Carbon dioxide, tota l [Moles/volume] in Central venous blood [facility] Carbon dioxide, tota l [Moles/volume] in Central venous blood [facility] Carbon dioxide, tota l [Moles/volume] in Central venous blood [facility] Carbon dioxide, tota l [Moles/volume] in Central venous blood [facility] End: 11-08-2018 CBC and Differential CBC and Differential Routine Type 2 diabetes mellitus with retinopathy of both eyes, with long-term current use of insulin, macular edema presence unspecified, unspecified retinopathy severity (HCC) 1 Occurrences starting 11/07/2017 until 11/08/2018 [facility] Complete blood count (hemogram) panel - Blood by Automated count CBC Lab Routine Preoperative testing Ordered: 12/21/2018 [facility] Comment on above: Ordered: 12/21/2018 End: 06-30-2019 Complete blood count with white cell differential, manual CBC and Differential Routine Type 2 diabetes mellitus with retinopathy of both eyes, with long-term current use of insulin, macular edema presence unspecified, unspecified retinopathy severity (HCC) 1 Occurrences starting 06/29/2018 until 06/30/2019 [facility] Comment on above: 1 Occurrences starting 06/29/2018 until 06/30/2019 End: 03-01-2020 Complete blood count with white cell differential, manual CBC and Differential Lab Routine Type 2 diabetes mellitus with retinopathy of both eyes, with long-term current use of insulin, macular edema presence unspecified, unspecified retinopathy severity (HCC) 1 Occurrences starting 03/01/2019 until 03/01/2020 [facility] Comment on above: 1 Occurrences starting 03/01/2019 until 03/01/2020 End: 12-17-2021 Complete blood count with white cell differential, manual CBC and Differential Lab Routine 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, with long-term current use of insulin, unspecified laterality, unspecified retinopathy severity (HCC) 1 Occurrences starting 12/17/2020 until 12/17/2021 [facility] Comment on above: 1 Occurrences starting 12/17/2020 until 12/17/2021 Complete blood count with white cell differential, manual CBC and Differential Lab Routine 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, with long-term current use of insulin, unspecified laterality, unspecified retinopathy severity (HCC) 12/17/2020 7:57 AM EDT [facility] End: 11-28-2024 Complete blood count with white cell differential, manual CBC and Differential Lab Routine 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, bilateral legs (HCC) 1 Occurrences starting 11/29/2023 until 11/28/2024 [facility] Comment on above: 1 Occurrences starting 11/29/2023 until 11/28/2024 End: 06-30-2019 Comprehensive metabolic 2000 panel Comprehensive Metabolic Panel Routine Type 2 diabetes mellitus with retinopathy of both eyes, with long-term current use of insulin, macular edema presence unspecified, unspecified retinopathy severity (HCC) 1 Occurrences starting 06/29/2018 until 06/30/2019 [facility] Comment on above: 1 Occurrences starting 06/29/2018 until 06/30/2019 End: 10-31-2019 Comprehensive metabolic 2000 panel Comprehensive Metabolic Panel Routine Type 2 diabetes mellitus with retinopathy of both eyes, with long-term current use of insulin, macular edema presence unspecified, unspecified retinopathy severity (HCC) 1 Occurrences starting 10/30/2018 until 10/31/2019 [facility] Comment on above: 1 Occurrences starting 10/30/2018 until 10/31/2019 Comprehensive metabo lic 2000 panel [facility] Comment on above: Ordered: 12/21/2018 End: 03-01-2020 Comprehensive metabolic 2000 panel Comprehensive Metabolic Panel Lab Routine Type 2 diabetes mellitus with retinopathy of both eyes, with long-term current use of insulin, macular edema presence unspecified, unspecified retinopathy severity (HCC) 1 Occurrences starting 03/01/2019 until 03/01/2020 [facility] Comment on above: 1 Occurrences starting 03/01/2019 until 03/01/2020 End: 12-16-2021 Comprehensive metabolic 2000 panel - Serum or Plasma Comprehensive Metabolic Panel Lab Routine Type 2 diabetes mellitus with retinopathy of both eyes, with long-term current use of insulin, macular edema presence unspecified, unspecified retinopathy severity (HCC) Essential hypertension 1 Occurrences starting 12/16/2020 until 12/16/2021 [facility] Comment on above: 1 Occurrences starting 12/16/2020 until 12/16/2021 End: 01-22-2024 Comprehensive metabolic 2000 panel - Serum or Plasma Comprehensive Metabolic Panel Lab Routine Diarrhea, unspecified type 1 Occurrences starting 01/21/2023 until 01/22/2024 [facility] Comment on above: 1 Occurrences starting 01/21/2023 until 01/22/2024 Comprehensive metabo lic 2000 panel - Serum or Plasma Comprehensive Metabolic Panel Lab Routine Diarrhea, unspecified type 01/21/2023 10:37 AM EDT [facility] End: 12-09-2024 Comprehensive metabolic 1999 panel - Serum or Plasma Comprehensive Metabolic Panel Lab Routine Type 2 diabetes mellitus with retinopathy of both eyes, with long-term current use of insulin, macular edema presence unspecified, unspecified retinopathy severity (HCC) 1 Occurrences starting 12/09/2023 until 12/09/2024 [facility] Work Phone: Comment on above: 1 Occurrences starting 12/09/2023 until 12/09/2024 End: 11-13-2025 Comprehensive metabolic 2000 panel - Serum or Plasma Comprehensive Metabolic Panel Lab Routine Type 2 diabetes mellitus with retinopathy of both eyes, with long-term current use of insulin, macular edema presence unspecified, unspecified retinopathy severity (HCC) 1 Occurrences starting 11/12/2024 until 11/13/2025 [facility] Comment on above: 1 Occurrences starting 11/12/2024 until 11/13/2025 End: 11-08-2018 Comprehensive metabolic panel [AGGREGATE] Comprehensive Metabolic Panel Routine Type 2 diabetes mellitus with retinopathy of both eyes, with long-term current use of insulin, macular edema presence unspecified, unspecified retinopathy severity (HCC) 1 Occurrences starting 11/07/2017 until 11/08/2018 [facility] End: 02-10-2018 Comprehensive metabolic panel [AGGREGATE] Comprehensive Metabolic Panel Routine Type 2 diabetes mellitus with retinopathy, with long-term current use of insulin, macular edema presence unspecified, unspecified laterality, unspecified retinopathy severity (HCC) Hypercholesterolemia Essential hypertension 1 Occurrences starting 02/09/2017 until 02/10/2018 [facility] Work Phone: Creatinine [Mass/volume] in Serum or Plasma [facility] Creatinine [Mass/volume] in Serum or Plasma [facility] Creatinine [Mass/volume] in Serum or Plasma [facility] Creatinine [Mass/volume] in Serum or Plasma [facility] Creatinine [Mass/volume] in Serum or Plasma [facility] Creatinine [Mass/volume] in Serum or Plasma [facility] Creatinine [Mass/volume] in Serum or Plasma [facility] Creatinine [Mass/volume] in Serum or Plasma [facility] End: 08-30-2024 CTA Abdominal Aorta and Bilateral Runoff Vessels W contrast IV CT Angiogram Abdominal Aorta With Lower Extremity Imaging Routine 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, bilateral legs (HCC) PAD (peripheral artery disease) (HCC) 1 Occurrences starting 06/30/2023 until 08/30/2024 [facility] Work Phone: Comment on above: 1 Occurrences starting 06/30/2023 until 08/30/2024 End: 11-05-2018 Echocardiogram complete Echocardiogram complete Routine S/P aortic valve replacement 1 Occurrences starting 11/04/2017 until 11/05/2018 [facility] End: 12-02-2019 Echocardiography Echocardiogram complete Echocardiography Routine Chest pain, unspecified type S/P aortic valve replacement 1 Occurrences starting 12/01/2018 until 12/02/2019 [facility] Comment on above: 1 Occurrences starting 12/01/2018 until 12/02/2019 End: 03-12-2022 Echocardiography Echocardiogram complete Echocardiography Routine Persistent atrial fibrillation (HCC) 1 Occurrences starting 01/09/2021 until 03/12/2022 [facility] Comment on above: 1 Occurrences starting 01/09/2021 until 03/12/2022 End: 02-21-2023 Echocardiography Echocardiogram complete Echocardiography Routine Pre-operative cardiovascular examination Hx of aortic valve replacement 1 Occurrences starting 12/22/2021 until 02/21/2023 [facility] Work Phone: Comment on above: 1 Occurrences starting 12/22/2021 until 02/21/2023 End: 03-04-2024 Echocardiography Echocardiogram complete Echocardiography Routine Persistent atrial fibrillation (HCC) 1 Occurrences starting 03/04/2023 until 03/04/2024 [facility] Work Phone: Comment on above: 1 Occurrences starting 03/04/2023 until 03/04/2024 Erythrocyte mean corpuscular volume determination [facility] Erythrocyte mean corpuscular volume determination [facility] Erythrocyte mean corpuscular volume determination [facility] Erythrocyte mean corpuscular volume determination [facility] Erythrocyte mean corpuscular volume determination [facility] Erythrocyte mean corpuscular volume determination [facility] Erythrocyte mean corpuscular volume determination [facility] Erythrocyte sedimentation rate [facility] Erythrocyte sedimentation rate [facility] End: 03-12-2022 Extended Holter Monitor (3-7 days) Extended Holter Monitor (3-7 days) [facility]iac Services Routine Persistent atrial fibrillation (HCC) 1 Occurrences starting 01/09/2021 until 03/12/2022 [facility] Comment on above: 1 Occurrences starting 01/09/2021 until 03/12/2022 End: 01-13-2021 Extended Holter Monitor (3-7 days) Extended Holter Monitor (3-7 days) [facility]iac Services Routine Persistent atrial fibrillation (HCC) Once for 1 Occurrences starting 01/13/2021 until 01/13/2021 [facility] Comment on above: Once for 1 Occurrences starting 01/14/20 until 01/13/2021 End: 02-10-2018 External Lab Microalbumin/Creatinine External Lab Microalbumin/Creatinine Routine Type 2 diabetes mellitus with retinopathy, with long-term current use of insulin, macular edema presence unspecified, unspecified laterality, unspecified retinopathy severity (HCC) Hypercholesterolemia Essential hypertension 1 Occurrences starting 02/09/2017 until 02/10/2018 [facility] Work Phone: End: 06-30-2019 External Lab Microalbumin/Creatinine External Lab Microalbumin/Creatinine Routine Type 2 diabetes mellitus with retinopathy of both eyes, with long-term current use of insulin, macular edema presence unspecified, unspecified retinopathy severity (HCC) 1 Occurrences starting 06/29/2018 until 06/30/2019 [facility] Comment on above: 1 Occurrences starting 06/29/2018 until 06/30/2019 End: 03-01-2020 Free T4 [Mass/Vol] T4, Free Lab Routine Type 2 diabetes mellitus with retinopathy of both eyes, with long-term current use of insulin, macular edema presence unspecified, unspecified retinopathy severity (HCC) 1 Occurrences starting 03/01/2019 until 03/01/2020 [facility] Comment on above: 1 Occurrences starting 03/01/2019 until 03/01/2020 End: 01-22-2024 Gastrointestinal pathogens DNA and RNA panel - Stool by [facility]ONNE with non-probe detection Stool/GI PCR Panel Microbiology Routine Diarrhea, unspecified type 1 Occurrences starting 01/21/2023 until 01/22/2024 [facility] Comment on above: 1 Occurrences starting 01/21/2023 until 01/22/2024 Glucose [Mass/volume ] in Serum or Plasma [facility] Glucose [Mass/volume ] in Serum or Plasma [facility] Glucose [Mass/volume ] in Serum or Plasma [facility] Glucose [Mass/volume ] in Serum or Plasma [facility] Glucose [Mass/volume ] in Serum or Plasma [facility] Glucose [Mass/volume ] in Serum or Plasma [facility] Glucose [Mass/volume ] in Serum or Plasma [facility] Glucose [Mass/volume ] in Serum or Plasma [facility] Glucose mass conc POC Glucose Po int of Care Testing STAT 12/26/2018 11:48 AM EDT [facility] End: 11-08-2018 HbA1c Hemoglobin A1c Routine Type 2 diabetes mellitus with retinopathy of both eyes, with long-term current use of insulin, macular edema presence unspecified, unspecified retinopathy severity (HCC) 1 Occurrences starting 11/07/2017 until 11/08/2018 [facility] End: 02-10-2018 HbA1c Hemoglobin A1c Routine Type 2 diabetes mellitus with retinopathy, with long-term current use of insulin, macular edema presence unspecified, unspecified laterality, unspecified retinopathy severity (HCC) Hypercholesterolemia Essential hypertension 1 Occurrences starting 02/09/2017 until 02/10/2018 [facility] Work Phone: End: 03-01-2020 HbA1c (Bld) [Mass fraction] Hemoglobin A1c Lab Routine Type 2 diabetes mellitus with retinopathy of both eyes, with long-term current use of insulin, macular edema presence unspecified, unspecified retinopathy severity (HCC) 1 Occurrences starting 03/01/2019 until 03/01/2020 [facility] Comment on above: 1 Occurrences starting 03/01/2019 until 03/01/2020 Hematocrit [Volume Fraction] of Blood [facility] Hematocrit [Volume Fraction] of Blood [facility] Hematocrit [Volume Fraction] of Blood [facility] Hematocrit [Volume Fraction] of Blood [facility] Hematocrit [Volume Fraction] of Blood [facility] Hematocrit [Volume Fraction] of Blood [facility] Hematocrit [Volume Fraction] of Blood [facility] Hemoglobin [Mass/volume] in Blood [facility] Hemoglobin [Mass/volume] in Blood [facility] Hemoglobin [Mass/volume] in Blood [facility] Hemoglobin [Mass/volume] in Blood [facility] Hemoglobin [Mass/volume] in Blood [facility] Hemoglobin [Mass/volume] in Blood [facility] Hemoglobin [Mass/volume] in Blood [facility] End: 12-17-2021 Hemoglobin A1c/Hemoglobin.total in Blood Hemoglobin A1c Lab Routine 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, with long-term current use of insulin, unspecified laterality, unspecified retinopathy severity (HCC) 1 Occurrences starting 12/17/2020 until 12/17/2021 [facility] Comment on above: 1 Occurrences starting 12/17/2020 until 12/17/2021 Hemoglobin A1c/Hemoglobin.total in Blood Hemoglobin A1c Lab Routine 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, with long-term current use of insulin, unspecified laterality, unspecified retinopathy severity (HCC) 12/17/2020 7:57 AM EDT [facility] End: 12-09-2024 Hemoglobin A1c/Hemoglobin.total in Blood Hemoglobin A1c Lab Routine Type 2 diabetes mellitus with retinopathy of both eyes, with long-term current use of insulin, macular edema presence unspecified, unspecified retinopathy severity (HCC) 1 Occurrences starting 12/09/2023 until 12/09/2024 [facility] Comment on above: 1 Occurrences starting 12/09/2023 until 12/09/2024 End: 11-13-2025 Hemoglobin A1c/Hemoglobin.total in Blood Hemoglobin A1c Lab Routine Type 2 diabetes mellitus with retinopathy of both eyes, with long-term current use of insulin, macular edema presence unspecified, unspecified retinopathy severity (HCC) 1 Occurrences starting 11/12/2024 until 11/13/2025 [facility] Work Phone: Comment on above: 1 Occurrences starting 11/12/2024 until 11/13/2025 End: 06-30-2019 Hemoglobin A1c/Hemoglobin.total mass fraction (Bld) Hemoglobin A1c Routine Type 2 diabetes mellitus with retinopathy of both eyes, with long-term current use of insulin, macular edema presence unspecified, unspecified retinopathy severity (HCC) 1 Occurrences starting 06/29/2018 until 06/30/2019 [facility] Comment on above: 1 Occurrences starting 06/29/2018 until 06/30/2019 End: 10-31-2019 Hemoglobin A1c/Hemoglobin.total mass fraction (Bld) Hemoglobin A1c Routine Type 2 diabetes mellitus with retinopathy of both eyes, with long-term current use of insulin, macular edema presence unspecified, unspecified retinopathy severity (HCC) 1 Occurrences starting 10/30/2018 until 10/31/2019 [facility] Comment on above: 1 Occurrences starting 10/30/2018 until 10/31/2019 End: 07-23-2023 Hepatitis C antibody measurement Hepatitis C Antibody Lab Routine Type 2 diabetes mellitus with retinopathy of both eyes, with long-term current use of insulin, macular edema presence unspecified, unspecified retinopathy severity (HCC) 1 Occurrences starting 07/23/2022 until 07/23/2023 [facility] Comment on above: 1 Occurrences starting 07/23/2022 until 07/23/2023 LEFT HEART CATH W/GRAFTS LEFT HEART CATH W/GRAFTS Abnormal stress test Coronary artery disease, unspecified vessel or lesion type, unspecified whether angina present, unspecified whether [place] or transplanted heart [facility] Leukocytes [#/volume ] in Blood [facility] Leukocytes [#/volume ] in Blood [facility] Leukocytes [#/volume ] in Blood [facility] Leukocytes [#/volume ] in Blood [facility] Leukocytes [#/volume ] in Blood [facility] Leukocytes [#/volume ] in Blood [facility] Leukocytes [#/volume ] in Blood [facility] End: 06-30-2019 Lipid 1996 panel Lipid Panel Routine Type 2 diabetes mellitus with retinopathy of both eyes, with long-term current use of insulin, macular edema presence unspecified, unspecified retinopathy severity (HCC) 1 Occurrences starting 06/29/2018 until 06/30/2019 [facility] Comment on above: 1 Occurrences starting 06/29/2018 until 06/30/2019 End: 03-01-2020 Lipid 1996 panel Lipid Panel Lab Routine Type 2 diabetes mellitus with retinopathy of both eyes, with long-term current use of insulin, macular edema presence unspecified, unspecified retinopathy severity (HCC) 1 Occurrences starting 03/01/2019 until 03/01/2020 [facility] Comment on above: 1 Occurrences starting 03/01/2019 until 03/01/2020 End: 12-16-2021 Lipid 1996 panel - Serum or Plasma Lipid Panel Lab Routine Essential hypertension Hypercholesterolemia 1 Occurrences starting 12/16/2020 until 12/16/2021 [facility] Comment on above: 1 Occurrences starting 12/16/2020 until 12/16/2021 Lipid 1996 panel - Serum or Plasma Lipid Panel Lab Routine Essential hypertension Hypercholesterolemia 12/17/2020 7:57 AM EDT [facility] End: 11-28-2024 Lipid 1996 panel - Serum or Plasma Lipid Panel Lab Routine Type 2 diabetes mellitus with other circulatory complication, with long-term current use of insulin (HCC) 1 Occurrences starting 11/29/2023 until 11/28/2024 [facility] Work Phone: Comment on above: 1 Occurrences starting 11/29/2023 until 11/28/2024 End: 11-08-2018 Lipid panel Lipid Panel Routine Type 2 diabetes mellitus with retinopathy of both eyes, with long-term current use of insulin, macular edema presence unspecified, unspecified retinopathy severity (HCC) 1 Occurrences starting 11/07/2017 until 11/08/2018 [facility] Mean corpuscular hemoglobin concentration determination [facility] Mean corpuscular hemoglobin concentration determination [facility] Mean corpuscular hemoglobin concentration determination [facility] Mean corpuscular hemoglobin concentration determination [facility] Mean corpuscular hemoglobin concentration determination [facility] Mean corpuscular hemoglobin concentration determination [facility] Mean corpuscular hemoglobin concentration determination [facility] Mean corpuscular hemoglobin determination [facility] Mean corpuscular hemoglobin determination [facility] Mean corpuscular hemoglobin determination [facility] Mean corpuscular hemoglobin determination [facility] Mean corpuscular hemoglobin determination [facility] Mean corpuscular hemoglobin determination [facility] Mean corpuscular hemoglobin determination [facility] Measurement of renal function [facility] Measurement of renal function [facility] Measurement of renal function [facility] Measurement of renal function [facility] Measurement of renal function [facility] Measurement of renal function [facility] Measurement of renal function [facility] Measurement of renal function [facility] End: 12-16-2021 Microalbumin measurement, urine, quantitative Microalbumin, Urine, Random Lab Routine Essential hypertension 1 Occurrences starting 12/16/2020 until 12/16/2021 [facility] Comment on above: 1 Occurrences starting 12/16/2020 until 12/16/2021 Microalbumin measurement, urine, quantitative Microalbumin, Urine, Random Lab Routine Essential hypertension 12/17/2020 8:01 AM EDT [facility] End: 07-23-2023 Microalbumin measurement, urine, quantitative Microalbumin/Creatinine Ratio, UR Random Lab Routine Type 2 diabetes mellitus with retinopathy of both eyes, with long-term current use of insulin, macular edema presence unspecified, unspecified retinopathy severity (HCC) 1 Occurrences starting 07/23/2022 until 07/23/2023 [facility] Work Phone: Comment on above: 1 Occurrences starting 07/23/2022 until 07/23/2023 Neutrophil count [facility] Neutrophil count [facility] Neutrophil count [facility] Neutrophil count [facility] Neutrophil count [facility] Neutrophil count [facility] Neutrophil count [facility] Neutrophil percent differential count [facility] Neutrophil percent differential count [facility] Neutrophil percent differential count [facility] Neutrophil percent differential count [facility] Neutrophil percent differential count [facility] Neutrophil percent differential count [facility] Neutrophil percent differential count [facility] Platelets [#/volume] in Blood [facility] Platelets [#/volume] in Blood [facility] Platelets [#/volume] in Blood [facility] Platelets [#/volume] in Blood [facility] Platelets [#/volume] in Blood [facility] Platelets [#/volume] in Blood [facility] Platelets [#/volume] in Blood [facility] Potassium measurement [facility] Potassium measurement [facility] Potassium measurement [facility] Potassium measurement [facility] Potassium measurement [facility] Potassium measurement [facility] Potassium measurement [facility] Potassium measurement [facility] End: 12-02-2019 Radionuclide myocardial perfusion study NM Myocardial Perfusion Multiple SPECT Imaging Routine Coronary 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, unspecified vessel or lesion type Chest pain, unspecified type 1 Occurrences starting 12/01/2018 until 12/02/2019 [facility] Comment on above: 1 Occurrences starting 12/01/2018 until 12/02/2019 Red blood cell count [facility] Red blood cell count [facility] Red blood cell count [facility] Red blood cell count [facility] Red blood cell count [facility] Red blood cell count [facility] Red blood cell count [facility] Red cell distributio n width determination [facility] Red cell distributio n width determination [facility] Red cell distributio n width determination [facility] Red cell distributio n width determination [facility] Red cell distributio n width determination [facility] Red cell distributio n width determination [facility] Red cell distributio n width determination [facility] Serum chloride measurement [facility] Serum chloride measurement [facility] Serum chloride measurement [facility] Serum chloride measurement [facility] Serum chloride measurement [facility] Serum chloride measurement [facility] Serum chloride measurement [facility] Serum chloride measurement [facility] Sodium measurement [facility] Sodium measurement [facility] Sodium measurement [facility] Sodium measurement [facility] Sodium measurement [facility] Sodium measurement [facility] Sodium measurement [facility] Sodium measurement [facility] End: 12-01-2019 Standard chest X-ray XR Chest AP/PA and LAT Imaging Routine Chest pain, unspecified type 1 Occurrences starting 12/01/2018 until 12/01/2019 [facility] Comment on above: 1 Occurrences starting 12/01/2018 until 12/01/2019 End: 06-30-2019 T4 free mass conc T4, Free Routine Type 2 diabetes mellitus with retinopathy of both eyes, with long-term current use of insulin, macular edema presence unspecified, unspecified retinopathy severity (HCC) 1 Occurrences starting 06/29/2018 until 06/30/2019 [facility] Comment on above: 1 Occurrences starting 06/29/2018 until 06/30/2019 End: 12-16-2021 Thyrotropin [Units/volume] in Serum or Plasma TSH with Reflex Free T4 Lab Routine Essential hypertension 1 Occurrences starting 12/16/2020 until 12/16/2021 [facility] Comment on above: 1 Occurrences starting 12/16/2020 until 12/16/2021 Thyrotropin [Units/volume] in Serum or Plasma TSH with Reflex Free T4 Lab Routine Essential hypertension 12/17/2020 7:57 AM EDT [facility] End: 01-22-2024 Thyrotropin [Units/volume] in Serum or Plasma TSH with Reflex Free T4 Lab Routine Diarrhea, unspecified type 1 Occurrences starting 01/21/2023 until 01/22/2024 [facility] Comment on above: 1 Occurrences starting 01/21/2023 until 01/22/2024 Thyrotropin [Units/volume] in Serum or Plasma TSH with Reflex Free T4 Lab Routine Diarrhea, unspecified type 01/21/2023 10:37 AM EDT [facility] End: 12-09-2024 Thyrotropin [Units/volume] in Serum or Plasma TSH Lab Routine Type 2 diabetes mellitus with retinopathy of both eyes, with long-term current use of insulin, macular edema presence unspecified, unspecified retinopathy severity (HCC) 1 Occurrences starting 12/09/2023 until 12/09/2024 [facility] Comment on above: 1 Occurrences starting 12/09/2023 until 12/09/2024 End: 06-30-2019 Thyrotropin Qn TSH Routine Type 2 diabetes mellitus with retinopathy of both eyes, with long-term current use of insulin, macular edema presence unspecified, unspecified retinopathy severity (HCC) 1 Occurrences starting 06/29/2018 until 06/30/2019 [facility] Comment on above: 1 Occurrences starting 06/29/2018 until 06/30/2019 End: 11-08-2018 Thyroxine (T4) free T4, Free Routine Type 2 diabetes mellitus with retinopathy of both eyes, with long-term current use of insulin, macular edema presence unspecified, unspecified retinopathy severity (HCC) 1 Occurrences starting 11/07/2017 until 11/08/2018 [facility] End: 02-10-2018 Thyroxine (T4) free T4, Free Routine Type 2 diabetes mellitus with retinopathy, with long-term current use of insulin, macular edema presence unspecified, unspecified laterality, unspecified retinopathy severity (HCC) Hypercholesterolemia Essential hypertension 1 Occurrences starting 02/09/2017 until 02/10/2018 [facility] Work Phone: End: 12-09-2024 Thyroxine (T4) free [Mass/volume] in Serum or Plasma T4, Free Lab Routine Type 2 diabetes mellitus with retinopathy of both eyes, with long-term current use of insulin, macular edema presence unspecified, unspecified retinopathy severity (HCC) 1 Occurrences starting 12/09/2023 until 12/09/2024 [facility] Comment on above: 1 Occurrences starting 12/09/2023 until 12/09/2024 End: 01-22-2024 Tissue transglutaminase IgA measurement Tissue Transglutaminase, IgA Lab Routine Diarrhea, unspecified type 1 Occurrences starting 01/21/2023 until 01/22/2024 [facility] Work Phone: Comment on above: 1 Occurrences starting 01/21/2023 until 01/22/2024 Tissue transglutamin ase IgA measurement Tissue Transglutaminase, IgA Lab Routine Diarrhea, unspecified type 01/21/2023 10:37 AM EDT [facility] End: 04-02-2026 Transesophageal echocardiography Echocardiogram transesophageal Echocardiography Routine Sepsis, due to unspecified organism, unspecified whether acute organ dysfunction present (HCC) 1 Occurrences starting 01/30/2025 until 04/02/2026 [facility] Work Phone: Comment on above: 1 Occurrences starting 01/30/2025 until 04/02/2026 End: 11-08-2018 TSH TSH Routine Type 2 diabetes mellitus with retinopathy of both eyes, with long-term current use of insulin, macular edema presence unspecified, unspecified retinopathy severity (HCC) 1 Occurrences starting 11/07/2017 until 11/08/2018 [facility] End: 03-01-2020 TSH Qn TSH Lab Routine Type 2 diabetes mellitus with retinopathy of both eyes, with long-term current use of insulin, macular edema presence unspecified, unspecified retinopathy severity (HCC) 1 Occurrences starting 03/01/2019 until 03/01/2020 [facility] Comment on above: 1 Occurrences starting 03/01/2019 until 03/01/2020 End: 01-31-2020 Ultrasound abdominal aorta duplex limited Ultrasound abdominal aorta duplex limited Vascular Ultrasound Routine Prominent abdominal aortic pulse 1 Occurrences starting 12/01/2018 until 01/31/2020 [facility] Comment on above: 1 Occurrences starting 12/01/2018 until 01/31/2020 End: 03-17-2023 Ultrasound ankle / brachial indices extremity complete Ultrasound ankle / brachial indices extremity complete Vascular Ultrasound Routine PAD (peripheral artery disease) (HCC) 1 Occurrences starting 01/14/2022 until 03/17/2023 [facility] Work Phone: Comment on above: 1 Occurrences starting 01/14/2022 until 03/17/2023 Urea nitrogen [Mass/volume] in Serum or Plasma [facility] Urea nitrogen [Mass/volume] in Serum or Plasma [facility] Urea nitrogen [Mass/volume] in Serum or Plasma [facility] Urea nitrogen [Mass/volume] in Serum or Plasma [facility] Urea nitrogen [Mass/volume] in Serum or Plasma [facility] Urea nitrogen [Mass/volume] in Serum or Plasma [facility] Urea nitrogen [Mass/volume] in Serum or Plasma [facility] Urea nitrogen [Mass/volume] in Serum or Plasma [facility] End: 02-09-2024 US Doppler ankle/brachial index US Doppler ankle/brachial index Vascular Ultrasound Routine 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, bilateral legs (HCC) PAD (peripheral artery disease) (HCC) 1 Occurrences starting 12/09/2022 until 02/09/2024 [facility] Work Phone: Comment on above: 1 Occurrences starting 12/09/2022 until 02/09/2024 End: 03-28-2025 US Doppler ankle/brachial index US Doppler ankle/brachial index Vascular Ultrasound Routine 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, bilateral legs (HCC) PAD (peripheral artery disease) (HCC) 1 Occurrences starting 01/26/2024 until 03/28/2025 [facility] Work Phone: Comment on above: 1 Occurrences starting 01/26/2024 until 03/28/2025 Immunizations Immunization Date Immunization Notes Care Provider [facility] 06-14-2022 [employer] COVI D-19 VACCINE BIVALENT BOOSTER (12+) Vivien Foreman MD Work Phone: [facility] 06-14-2022 COVID-19 vac, bv, Pfizer,,PF, (PFIZER COVID-10 BIVALENT VACCINE) injection Vivien Foreman MD Work Phone: [facility] 04-22-2022 Influenza High-Dose Quadrivalent Dr. Gaetano Menendez MD Work Phone: [facility] 04-22-2022 influenza virus vacc ine, unspecified formulation Bessrobby Aguilars RD [facility] 12-10-2021 Covid (Pfizer) Dr. Gaetano Menendez MD Work Phone: [facility] 12-10-2021 Pfizer 12+ Years inocente-sucrose COVID-19 vaccine Preston Healy MD Work Phone: [facility] 07-07-2021 zoster vaccine recombinant Preston Healy MD Work Phone: [facility] 06-13-2021 Covid (Moderna) Dr. Gaetano Menendez MD Work Phone: [facility] 06-12-2021 Influenza IIV4 high dose 65 and Older Vivien Foreman MD Work Phone: [facility] 06-12-2021 influenza, high dose seasonal, preservative-free Vivien Foreman MD Work Phone: [facility] 06-12-2021 flu vacc [id number] 5yr up,-PF (FLUZONE HIGH-DOSE) syringe Vivien Foreman MD Work Phone: [facility] 03-03-2021 zoster vaccine recombinant Vivien Foreman MD Work Phone: [facility] 03-02-2021 varicella-zoster gE (SHINGRIX-KIT) 0.5 mL Vivien Foreman MD Work Phone: [facility] 01-05-2021 pneumococcal conjuga te vaccine, 13 valent Vivien Foreman MD Work Phone: [facility] 01-05-2021 pneumococcal vaccine , unspecified formulation Vivien Foreman MD Work Phone: [facility] 10-16-2020 Moderna SARS-CoV-2 Vaccination Preston Healy MD Work Phone: [facility] 09-18-2020 Moderna SARS-CoV-2 Vaccination Preston Healy MD Work Phone: [facility] 04-18-2020 Influenza IIV4 high dose 65 and Older Vivien Foreman MD Work Phone: [facility] 04-18-2020 influenza, high dose seasonal, preservative-free Vivien Foreman MD Work Phone: [facility] 04-14-2015 influenza, injectabl e, quadrivalent, preservative free Dr. Gaetano Menendez MD Work Phone: [facility] 04-14-2015 influenza, seasonal, injectable Vivien Foreman MD Work Phone: [facility] 09-05-2012 pneumococcal polysaccharide vaccine, 23 valent Vivien Foreman MD Work Phone: [facility] 03-18-2011 tetanus toxoid, redu hazel diphtheria toxoid, and acellular pertussis vaccine, adsorbed Vivien Foreman MD Work Phone: [facility] 04-10-2008 influenza virus vacc ine, unspecified formulation Vivien Foreman MD Work Phone: [facility] 04-10-2008 influenza virus vacc ine, whole virus Preston Healy MD Work Phone: [facility] 04-10-2008 influenza, injectabl e, quadrivalent, preservative free Dr. Gaetano Menendez MD Work Phone: [facility] 04-10-2004 pneumococcal conjuga te vaccine, 7 valent Yun Darnell RN [facility] 04-10-2004 pneumococcal Conjuga te, unspecified formulation Vivien Foreman MD Work Phone: [facility] Payers Date Payer Category Payer Self-pay 2015 Managed Care (unspecified) [id number] 2015 Private Health Insurance HUMANA HUMANA OTHER AFTER MEDICARE xxxxxxxxx 2015-Present xxxxxxxxx [id number] 2015 Private Health Insurance [id number] 2015 Private Health Insurance HUMANA HUMANA OTHER AFTER MEDICARE [id number] 2015-Present [id number] [place] [id number] 2015 Private Health Insurance [id number] 3 2009 Medicare [id number] 3 2009 Medicare MEDICARE MEDICAR E PART A & B xxxxxxxxxxx 2009-Present [place] xxxxxxxxxxx [id number] 2009 Medicare [id number] 2009 Medicare [id number] 2009 Medicare [id number] 1944 Unknown [id number] 2.16840.1.138357.3.579.2 .356 1944 Unknown [id number] 2.16840.1.480923.3.579.2 .356 1944 Unknown [id number] 2.16840.1.056962.3.579.2 .356 1944 Unknown [id number] 2.840.1.275043.3.579.2 .356 1944 Unknown [id number] 2.840.1.574011.3.579.2 .594 1944 Unknown [id number] 2.840.1.205950.3.579.2 .594 1944 Unknown [id number] 2.16840.1.398174.3.579.2 .903 1944 Unknown [id number] 2.840.1.681840.3.579.2 .903 1944 Unknown [id number] 2.16840.1.344290.3.579.2 .903 1944 Unknown [id number] 2.16840.1.731665.3.579.2 .903 1944 Unknown [id number] 2.16840.1.697393.3.579.2 .903 1944 Unknown [id number] 2.16840.1.985171.3.579.2 .903 1944 Unknown [id number] 2.16.840.1.868755.3.579.2 .1944 Unknown [id number] 2..840.1.079709.3.579.2 1944 Unknown [id number] 2..840.1.279657.3.579.2 1944 Unknown [id number] 2.840.1.674941.3.579.2 1944 Unknown [id number] 2.840.1.652279.3.579.2 1944 Unknown [id number] 2.840.1.757937.3.579.2 1944 Unknown [id number] 2.840.1.745753.3.579.2 1944 Unknown [id number] 2.840.1.262547.3.579.2 1944 Unknown [id number] 2.840.1.624172.3.579.2 1944 Unknown [id number] 2.840.1.044569.3.579.2 1944 Unknown [id number] 2.840.1.817592.3.579.2 1944 Unknown [id number] 2.840.1.255236.3.579.2 1944 Unknown [id number] 2.840.1.031167.3.579.2 1944 Unknown [id number] 2.16.840.1.507132.3.579.2 1944 Unknown [id number] 2.840.1.591728.3.579.2 1944 Unknown [id number] 2.16.840.1.144119.3.579.2 .903 1944 Unknown [id number] 2.16.840.1.519140.3.579.2 .903 1944 Unknown [id number] 2.16.840.1.039196.3.579.2 .903 1944 Unknown [id number] 2.16.840.1.673250.3.579.2 .903 Unknown [id number] 2.16.840.1.650015.3.579.2 .462 Unknown [id number] 2.16.840.1.201528.3.579.2 .462 Unknown [id number] 2.16.840.1.014272.3.579.2 .462 Social History Date Type Detail Facility Start: 11-28-2017 End: 01-26-2024 Tobacco smoking status ILIS Former smoker [facility] Start: 08-27-1961 End: 08-27-1973 History of tobacco use Current smoker [facility] Work Phone: Start: 11-28-2017 End: 02-05-2025 Cigarettes smoked current (pack per day) - Reported [facility] Start: 1945 Sex Assigned At Not on file [facility] Work Phone: Start: 10-27-2015 End: 07-29-2019 Alcohol intake Current non-drinker of alcohol (finding) [facility] Start: 12-15-2015 End: 05-12-2020 Tobacco use and exposure Never used [facility] Start: 10-02-2021 End: 07-23-2022 Exposure to SARS-CoV-2 (event) Not sure [facility] Start: 12-16-2020 End: 12-17-2020 Tobacco use and exposure Current user [facility] History of tobacco use Chews [facility] Start: 12-17-2020 End: 02-07-2025 Alcohol intake Ex-drinker (finding) [facility] Start: 01-09-2021 End: 01-26-2024 Tobacco use and exposure Former user [facility] Exposure to SARS-CoV -2 (event) Unable to assess [facility] Start: 08-27-1961 End: 08-27-1973 History of tobacco use Cigarette Smoker [facility] Start: 06-14-2022 History SDOH Social Connections Get Together 2 [facility] Start: 06-14-2022 History SDOH Financial 5 [facility] Start: 06-14-2022 History SDOH Food Worry 1 [facility] Start: 06-14-2022 End: 02-05-2025 Social connection and isolation panel [facility] Frequency of Communication with Friends and Family Not on file [facility] (I/We) worried wheth er (my/our) food would run out before (I/we) got money to buy more. Never true [facility] Start: 12-16-2020 Gender identity Identifies as male gender (finding) [facility] Start: 12-16-2020 Sexual orientation Heterosexual (finding) [facility] Start: 11-28-2022 End: 12-08-2022 Exposure to SARS-CoV-2 (event) Yes [facility] In the past 12 month s, was there a time when you were not able to pay the mortgage or rent on time? No [facility] Start: 1945 Sex Assigned At Male [facility] Medical Equipment Procedure Code Equipment Code Equipment Origin al Text Equipment Identifier Dates E11.65 Use as directed 4 times per day. [id number] Start: 01-05-2016 Dx code E11.9 us e to check BG 4x daily. [id number] Start: 01-05-2016 End: 06-06-2024 Use as directed QID. [id number] Star t: 09-26-2015 Use to check BG QID SolusV2 brand Dx E11.65. [id number] Start: 09-23-2015 Use as directed 4 times daily. . [id number] Start: 06-29-2018 End: 12-09-2023 Use as directed TID. [id number] Star t: 09-23-2015 End: 06-29-2018 Diag code E11.31 9 Use 4 times daily . [id number] Start: 10-30-2018 End: 06-15-2021 Use as directed QID . [id number] Start: 12-10-2021 Use to check BG 4x daily E 11.65. [id number] Start: 09-30-2015 End: 01-05-2016 Use as directed 4 times daily. . [id number] Start: 12-09-2023 End: 05-18-2024 Use as directed 4 times daily. . [id number] Start: 05-18-2024 Goals Date Patient Goal Desired Activity /State Personal health goal Comment on above: Formatting of this n ote might be different from the original. Blood sugar levels outside the normal range may be an indicator of diabetes. Personal health goal Comment on above: Formatting of this n ote might be different from the original. Wellness nutrition. In: Chiara M, Jorge S, Deonte S, editors. Nutritional Foundations and Clinical Applications. 7th ed. [place], [place]: Franky, 2020:1-16. Notes: Functional Status Date Assessment Result Facility 02-19-2025 Functional status Ambulates [facility] Work Phone: 02-18-2025 Functional status Tolerates Activity Fair [facility] Work Phone: Mental Status Date Assessment Result Facility 02-18-2025 Cognitive function Voice/Name [facility] Work Phone: 02-18-2025 Cognitive function Voice/Name;Touch/Shaki ng [facility] Work Phone: Clinical Notes 12-16-2020 to 02-21-2025 Darrell Norman CNP - 02/21/2025 9:13 AM EDT Note Date & Type Note Facility 02-21-[address] [facility] 02-21-2025 History of Presen t illness Narrative I called patient today to follow-up but not available to answer. Also called his friend Loretta but no answer. Voicemail was dropped to call the clinic as soon as possible for reevaluation. documented in this encounter [facility] 02-18-2025 Consult note Note Date/Time February 18, 2025 2:17pm [facility] Medical Records Department [address] [place] [address] Anesthesia Postop Eval II 08/06/04 1417 MR#: [id number] Acct: [id number] Name: ANDREW ARNOLD Rep #:[id number] : 1945 79 From: Yun summers CRNA PCP: VIVIEN FOREMAN MD Status:REG SDC Y Race: C Location: [place] [address] Anesthesia Postop Eval I Sum Postop Eval Completion status Anesthesia document: Postop Eval 1 completed: Yes Anesthesia Postop Eval I Summary Anesthesia Postop Eval I Summary: Anesthesia Postop Eval I: Assessment Summary Airway patent Yes 02/18/25 13:20 [email or web address] Spontaneous unlabored Yes 02/18/25 13:20 [email or web address] respirations Mental status Asleep 02/18/25 13:20 [email or web address] nausea No 02/18/25 13:20 [email or web address] Vomiting No 02/18/25 13:20 [email or web address] Anesthesia Postop Eval I: Fluid Summary Crystalloid volume administer 300 02/18/25 13:20 [email or web address] (ml) Colloids volume administered ( ml) Blood Product volume administered (ml) Total IV fluid infused 300 02/18/25 13:20 [email or web address] Anesthesia Postop Eval I: Summary Notes Anesthesia Complication No 02/18/25 13:20 [email or web address] Anesthesia Complication Comment: Post-operative progress note Anesthesia: Postop Eval II Evaluation Mental status: Awake and Calm Pain Level: 0 nausea: No Vomiting: No Complications Anesthesia Complication: No 02/18/251416 <Electronically signed by Yun lópez CRNA> Date _ Yun Sapp CRNA Cosigner Signature: Date CC: ~ Signed [facility] Work Phone: 1(789) 499-164608-11-2025 Consult note Author Anatoliy Mtz [facility] Note Date/Time February 18, 2025 1: 45pm [facility] Medical Records Department [address] [place] [address] Anesthesia Postop Eval I 02/18/25 1320 MR#: [id number] Acct: [id number] Name: ANDREW ARNOLD Rep #:[id number] : 1945 79 From: Anatoliy Mtz PCP: VIVIEN FOREMAN MD Status:REG SDC Y Race: C Location: [place] [address] Anesthesia: Postop Eval I Current Vital Signs Temperature: 97 F Pulse Rate: 67 Blood Pressure: 99/53 Respiratory Rate: 16 Pulse Ox: 95 Oxygen Delivery Method: Room Air Assessment Airway patent: Yes Spontaneous unlabored respirations: Yes Mental status: Asleep nausea: No Vomiting: No Anesthesia Complication: No Fluid Hydration Crystalloid volume administer (ml): 300 Total IV fluid infused: 300 Progress Note Anesthesia document: Postop Eval 1 completed: Yes 02/18/25 1320 <Electronically signed by Anatoliy Mtz > Date _ Anatoliy Whatley Signature: Date CC: ~ Signed [facility] Work Phone: 1(300) 233-350208-11-2025 History and physical note Author Kali Friend [facility] Note Date/Time February 18, 2025 12 :51pm [facility] Medical Records Department [address] [place] [address] History & Physical Exam 02/18/25 1249 MR#: [id number] Acct: [id number] Name: ANDREW ARNOLD Veda Rep #:[id number] : 1945 79 From: Kali Gar DO PCP: VIVIEN FOREMAN MD Status:REG COC Location: [place] [address] HPI - General General Date of Admission: 02/18/25 Date of Service: 02/18/25 Chief Complaint: Anemia HPI Narrative ANDREW ARNOLD, is a 79 M who presents for the evaluation of anemia. He had a history of TIA, subdural hematoma, type 2 diabetes, atrial fibrillation and non-ST segment elevation PA on Eliquis therapy and low-dose aspirin. His hemoglobinhas progressively been going down. He was Hemoccult positive. He is consented for upper endoscopy to evaluate his upper GI tract for possible upper GI bleed. [facility] Medical History History of subdural hematoma TIA (transient ischemic attack) Essential (primary) hypertension Mood disorder Type 2 diabetes mellitus with hyperglycemia Atrial fibrillation Coronary artery disease Blood in stool BPH (benign prostatic hyperplasia) Urinary retention Cellulitis of left hand Abscess of left hand Acute heart failure with preserved ejection fraction (HFpEF) Transaminitis Acute kidney injury Demand ischemia Elevated troponin Diabetic ketoacidosis Acute encephalopathy Streptococcal bacteremia Septic shock Debility Home Medications ?Medication ?Instructions ?Recorded ?Last Taken ?Type apixaban 5 mg tablet (Eliquis) 5 mg PO BID blood thinn er 02/09/25 Unknown History Held on 02/18/25. Instructions: Ordered ascorbic acid (vitamin C) 500 mg 500 mg PO .every othe r day 02/09/25 02/17/25 History capsule supplement aspirin 81 mg tablet 81 mg PO DAILY heart 5 02/17/25 History bumetanide 1 mg tablet 0.5 mg PO QODAY diuretic 09/0402/17/25 History ceftriaxone 2 gram intravenous 2 g IV DAILY infection 02/09/25 02/17/25 History solution docusate sodium 100 mg capsule 100 mg PO BID bowel 09/0402/17/25 History escitalopram oxalate 10 mg tablet 10 mg PO QHS mood 02/17/25 History fluconazole 200 mg tablet 200 mg PO DAILY infection 02/17/25 History insulin glargine 100 unit/mL 20 unit subcut QHS diabet es 02/09/25 02/17/25 History subcutaneous solution (Lantus U-100 Insulin) lisinopril 5 mg tablet 5 mg PO DAILY heart health 0 02/09/25 02/17/25 History metoprolol succinate 25 mg 25 mg PO DAILY heart health 02/09/25 02/17/25 History tablet,extended release 24 hr pantoprazole 40 mg tablet,delayed 40 mg PO BID stomach 02/09/25 Unknown History release potassium chloride 10 mEq 10 meq PO QODAY supplement 0 02/09/25 Unknown History tablet,extended release Held on 02/18/25. Instructions: Ordered sennosides 8.6 mg-docusate sodium 1 tab-cap PO BID bow el 02/09/25 Unknown History 50 mg tablet (Senna with Docusate Sodium) tamsulosin 0.4 mg capsule 0.4 mg PO .After evening josh l 02/09/25 02/17/25 History prostate acetaminophen 500 mg capsule 1,000 mg PO Q8 02/18/25 0 02/17/25 History atorvastatin 20 mg tablet (Lipitor) 20 mg PO QHS 02/18 Unknown History bisacodyl 10 mg rectal suppository 10 mg GA DAILY PRN constipation 02/18/25 Unknown History insulin lispro 100 unit/mL 7 unit subcut TID 02/18/25 02/17/25 History subcutaneous solution nystatin 150 million unit oral unit 02/18/25 Unknown H istory powder Allergy/AdvReac Type Severity Reaction Status Date / Time pioglitazone (From Actos) AdvReac Other Verified 02/09/25 19:11 Family History Mother COPD (chronic obstructive pulmonary disease) Father Diabetes Grandmother CVA (cerebral vascular accident) Surgical History Status post de Quervain release surgery History of oral cancer History of cardiac cath History 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 Social History household members: significant other and other details: Sister in law Smoking Status: Former smoker Smokeless tobacco user: chewing tobacco alcohol intake: never substance use type: does not use ROS Constitutional Constitutional: Denies fatigue, fever(s), poor appetite, weight gain or weight loss Gastrointestinal Gastrointestinal: Denies belching, bloating, change in bowel habits, change in stool character, chewing difficulty, coffee ground emesis, constipation, cramping, diarrhea, dyspepsia, dysphagia, early satiety, excessive flatus, fecalincontinence, heartburn, hematemesis, hematochezia, hemorrhoids, loose stools, melena, nausea, odynophagia, rectal bleeding, tenesmus, vomiting or weight changes Vital Signs Vital Signs Vital Signs: 02/18/25 12:18 02/18/25 12:18 02/18/25 12:48 Temperature 98.3 F 98.3 F Temperature Source Temporal Pulse Rate 84 84 Respiratory Rate 16 16 Respiratory Pattern Normal Blood Pressure 130/73 H 130/73 H Blood Pressure Mean 92 Blood Pressure Source Monitor Blood Pressure Position Semi-Fowlers Blood Pressure Location Right Arm Pulse Ox 97 97 Oxygen Delivery Method Room Air Room Air Weight Weight: 215 lb Body Mass Index (BMI) 33.6 Physical Exam Const alert, oriented x3, no apparent distress and healthy appearing General Appearance: cooperative GI normal to inspection, nondistended, normoactive bowel sounds, soft to palpation,non-tender and non-distended Percussion: normal to percussion Rectal Exam: deferred Assessment & Plan Assessment/Plan (1) Anemia: (2) Blood in stool: PLAN: He will undergo an upper endoscopy and possible colonoscopy. He was explained alternatives, risk and benefits include not withstanding bleeding, infection, sepsis, perforation, need for return to . He will have an ASA 3. 02/18/25 1251 <Electronically signed by Kali Gar DO> Cosigner Signature (if applicable): CC: VIVIEN FOREMAN MD; Kali Gar DO~ Signed [facility] Work Phone: 1(721) 743-831008-11-2025 Consult note Author Leo Cassidy [facility] Note Date/Time February 18, 2025 12 :48pm [facility] Medical Records Department [address] [place] [address] Pre-Anesthesia Evaluation 02/18/25 1238 MR#: [id number] Acct: [id number] Name: ANDREW ARNOLD Rep #:[id number] : 1945 79 From: Leo Cassidy MD PCP: VIVIEN FOREMAN MD Status:REG SD Y Race: C Location: [place] [address] ASA Classification* ASA Classification ASA Classification: 3 Assessment & Plan Anesthesia* Anesthesia Assessment Anesthesia Assessment: Discussed sedation and/or anesthesia options, risks, benefits, and alternatives with patient/parents/legal guardian/POA. Questions invited. The patient/parents/legal guardian/POA seems to understand and agrees to proceedwith anesthesia plan. Reviewed the physical assessment, medical history, allergy history and patient home medications list prior to surgery/procedure/anesthetic and documented any changes. Performed airway and anesthesia risk assessments. Anesthesia Type Anesthesia Type: MAC History Source History Obtained from:: Patient and Chart Anesthesia Focused Assessment* Temperature: 98.3 F Pulse Rate: 84 Blood Pressure: 130/73 Respiratory Rate: 16 Pulse Ox: 97 Oxygen Delivery Method: Room Air Airway Assessment Mouth opens: >3 cm Mallampati Score: IV Teeth Condition: Missing (Patient is edentulous.) Neck Range of motion (ROM): Limited ROM (Severe Restriction) Labs Anesthesia Preop lab: CBC WBC 5.4 K/mm3 (4.4-11.0) 02/15/25 05:38 02/15/25 RBC 3.09 M/mm3 (4.6-6.2) L 02/15/25 05:38 02/15/25 Hgb 8.4 g/dL (13.0-16.5) L 02/15/25 05:38 02/15/25 Hct 26.2 % (40-54) L 02/15/25 05:38 02/15/25 Plt Count 243 K/mm3 (150-450) 02/15/25 05:38 02/15/25 CHEMISTRY Potassium 4.5 mmol/L (3.3-5.1) 02/16/25 07:06 02/16/25 Sodium 132 mmol/L (133-145) L 02/16/25 07:06 02/16/25 BUN 20 mg/dL (4-19) H 02/16/25 07:06 02/16/25 Creatinine 0.99 mg/dL (0.70-1.20) 02/16/25 07:06 02/16/25 Glucose 265 mg/dL (70-99) H 02/16/25 07:06 02/16/25 POC Glucose 166 mg/dL (74-106) H 02/18/25 11:36 02/18/25 COAG Pre-Assessment Diagnosis/Proposed Procedure Planned Operative Procedure(s): Esophagogastroduodenoscopy Anesthesia History 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 When Was Last Pacemaker Check QUESTION #4 FULL TEXT: You/Your Family Experience fever (hyperthermia) with Anesthesia Last Oral Intake Last Oral intake: Last Oral Intake NPO since 00:00 02/18/25 12:18 Meds taken in AM with sips of water? 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 Has anyone observed you stop breathing during sleep? STOP Results QUESTION #5 FULL TEXT : Do you snore loudly (louder than talking or can be heard through closed doors)? Tobacco Use History Tobacco Use History - veterans service officer: Tobacco Use History - veterans service officer Tobacco Use Smoking Status Former smoker 02/11/25 07:28 Hx Tobacco Use No 02/09/25 17:58 Years Smoking Packs Smoked per Day Smoking Cessation Date was within the last 15 years Hx Smoking Cessation Date Hx Smoking Cessation Counseling Hematologic Medial History Hematologic Hx - veterans service officer: Hematologic Medical Hx - clinical field specialist Hx of Blood Transfusion Hx of Transfusion in last 3 Months Date of Last Transfusion (if within last 3 months) Ever experience any problems with transfusion(s)? Specify any problems Hx of Preganancy in last 3 Months Nurse Filling Out Transfusion & Questions: Date: Time: Patient unable to answer at this time (ie. confused, unrespo /Reproduction History /Reproductive History - veterans service officer: /Reproductive Hx- veterans service officer Hx Now Gestational Age (in weeks): EDC: Hx Hx Para Hx Section SAB Active Medications Active Medications: Current Medications Generic Name Dose Route Start Last Admin Trade Name Freq PRN Reason Stop Dose Admin Lactated Ringer's 1,000 mls @ 15 mls/hr 02/18/25 12:00 02/18/25 12:15 IV 15 mls/hr .Q48H TEREZA Administration PFSH Medical History History of subdural hematoma TIA (transient ischemic attack) Essential (primary) hypertension Mood disorder Type 2 diabetes mellitus with hyperglycemia Atrial fibrillation Coronary artery disease Blood in stool BPH (benign prostatic hyperplasia) Urinary retention Cellulitis of left hand Abscess of left hand Acute heart failure with preserved ejection fraction (HFpEF) Transaminitis Acute kidney injury Demand ischemia Elevated troponin Diabetic ketoacidosis Acute encephalopathy Streptococcal bacteremia Septic shock Debility Home Medications ?Medication ?Instructions ?Recorded ?Last Taken ?Type apixaban 5 mg tablet (Eliquis) 5 mg PO BID blood thinn er 02/09/25 Unknown History Held on 02/18/25. Instructions: Ordered ascorbic acid (vitamin C) 500 mg 500 mg PO .every othe r day 02/09/25 02/17/25 History capsule supplement aspirin 81 mg tablet 81 mg PO DAILY heart 5 02/17/25 History bumetanide 1 mg tablet 0.5 mg PO QODAY diuretic 09/0402/17/25 History ceftriaxone 2 gram intravenous 2 g IV DAILY infection 02/09/25 02/17/25 History solution docusate sodium 100 mg capsule 100 mg PO BID bowel 09/0402/17/25 History escitalopram oxalate 10 mg tablet 10 mg PO QHS mood 02/17/25 History fluconazole 200 mg tablet 200 mg PO DAILY infection 02/17/25 History insulin glargine 100 unit/mL 20 unit subcut QHS diabet es 02/09/25 02/17/25 History subcutaneous solution (Lantus U-100 Insulin) lisinopril 5 mg tablet 5 mg PO DAILY heart health 0 02/09/25 02/17/25 History metoprolol succinate 25 mg 25 mg PO DAILY heart health 02/09/25 02/17/25 History tablet,extended release 24 hr pantoprazole 40 mg tablet,delayed 40 mg PO BID stomach 02/09/25 Unknown History release potassium chloride 10 mEq 10 meq PO QODAY supplement 0 02/09/25 Unknown History tablet,extended release Held on 02/18/25. Instructions: MD Ordered sennosides 8.6 mg-docusate sodium 1 tab-cap PO BID bow el 02/09/25 Unknown History 50 mg tablet (Senna with Docusate Sodium) tamsulosin 0.4 mg capsule 0.4 mg PO .After evening josh l 02/09/25 02/17/25 History prostate acetaminophen 500 mg capsule 1,000 mg PO Q8 02/18/25 0 02/17/25 History atorvastatin 20 mg tablet (Lipitor) 20 mg PO QHS 02/18 Unknown History bisacodyl 10 mg rectal suppository 10 mg GA DAILY PRN constipation 02/18/25 Unknown History insulin lispro 100 unit/mL 7 unit subcut TID 02/18/25 02/17/25 History subcutaneous solution nystatin 150 million unit oral unit 02/18/25 Unknown H istory powder Allergy/AdvReac Type Severity Reaction Status Date / Time pioglitazone (From Actos) AdvReac Other Verified 02/09/25 19:11 Family History Mother COPD (chronic obstructive pulmonary disease) Father Diabetes Grandmother CVA (cerebral vascular accident) Surgical History Status post de Quervain release surgery History of oral cancer History of cardiac cath 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 02/18/25 1248 <Electronically signed by Leo alas MD> Date _ Leo Cassidy MD Cosigner Signature: Date CC: ~ Signed [facility] Work Phone: 1(333) 183-686208-11-2025 Consult note [facility] Medical Records Department [address] [place] [address] Anesthesia Postop Eval II 02/18/25 1417 MR#: [id number] Acct: [id number] Name: ANDREW ARNOLD Veda Rep #:[id number] : 1945 79 From: Yun summers CRNA PCP: VIVIEN FOREMAN MD Status:REG [employer] [employer] Y Race: C Location: [place] [address] Anesthesia Postop Eval I Sum Postop Eval Completion status Anesthesia document: Postop Eval 1 completed: Yes Anesthesia Postop Eval I Summary Anesthesia Postop Eval I Summary: Anesthesia Postop Eval I: Assessment Summary Airway patent Yes 02/18/25 13:20 [email or web address] Spontaneous unlabored Yes 02/18/25 13:20 [email or web address] respirations Mental status Asleep 02/18/25 13:20 [email or web address] nausea No 02/18/25 13:20 [email or web address] Vomiting No 02/18/25 13:20 [email or web address] Anesthesia Postop Eval I: Fluid Summary Crystalloid volume administer 300 02/18/25 13:20 [email or web address] (ml) Colloids volume administered ( ml) Blood Product volume administered (ml) Total IV fluid infused 300 02/18/25 13:20 [email or web address] Anesthesia Postop Eval I: Summary Notes Anesthesia Complication No 02/18/25 13:20 [email or web address] Anesthesia Complication Comment: Post-operative progress note Anesthesia: Postop Eval II Evaluation Mental status: Awake and Calm Pain Level: 0 nausea: No Vomiting: No Complications Anesthesia Complication: No 02/18/25 1417 maribel [employer]> Date _ Yun Sekou [employer] Cosigner Signature: Date CC: ~ Signed [facility]08-11-2025 Consult note [facility] Medical Records Department [address] [place] [id number] Anesthesia Postop Eval I 02/18/25 1320 MR#: [id number] Acct: [id number] Name: ANDREW ARNOLD Rep #:[id number] : 1945 79 From: Anatoliy Mtz PCP: VIVIEN FOREMAN MD Status:REG [employer] [employer] Y Race: C Location: [place] [address] Anesthesia: Postop Eval I Current Vital Signs Temperature: 97 F Pulse Rate: 67 Blood Pressure: 99/53 Respiratory Rate: 16 Pulse Ox: 95 Oxygen Delivery Method: Room Air Assessment Airway patent: Yes Spontaneous unlabored respirations: Yes Mental status: Asleep nausea: No Vomiting: No Anesthesia Complication: No Fluid Hydration Crystalloid volume administer (ml): 300 Total IV fluid infused: 300 Progress Note Anesthesia document: Postop Eval 1 completed: Yes 02/18/25 1320 > Date _ Anatoliy Whatley Signature: Date CC: ~ Signed [facility]08-11-2025 Procedure note [facility] Medical Records Department [address] [place] [address] EGD Report MR#: [id number] Acct: [id number] Name: ANDREW ARNOLD Rep #:[id number] : 1945 79 From: Kali Gar DO PCP: VIVIEN FOREMAN MD Status:REG [employer] Patient Name: Andrew Arnold Procedure Date: 02/18/2025 1:00 PM Date of : 1945 Age: 79 Procedure: Upper GI endoscopy Indications: Iron deficiency anemia, Heme positive stool, Suspected upper gastrointestinal bleeding Providers: Kali Gar DO Medicines: Monitored Anesthesia Care Patient Profile: This is an 79 year old male. Refer to note in patient chart for documentation of history and physical. Patient has symptoms. Complications: No immediate complications. Procedure: Pre-Anesthesia Assessment: - Prior to the procedure, a History and Physical was performed, and patient medications and allergies were reviewed. The patient is competent. The risks and benefits of the procedure and the sedation options and risks were discussed with the patient. All questions were answered and informed consent was obtained. Patient identification and proposed procedure were verified by the physician in the pre-procedure area. Mental Status Examination: alert and oriented. Airway Examination: normal oropharyngeal airway and neck mobility. Respiratory Examination: clear to auscultation. CV Examination: normal. Prophylactic Antibiotics: The patient does not require prophylactic antibiotics. Prior Anticoagulants: The patient has taken no anticoagulant or antiplatelet agents except for NSAID medication. ASA Grade Assessment: II - A patient with mild systemic disease. After reviewing the risks and benefits, the patient was deemed in satisfactory condition to undergo the procedure. The anesthesia plan was to use monitored anesthesia care (MAC). Immediately prior to administration of medications, the patient was re-assessed for adequacy to receive sedatives. The heart rate, respiratory rate, oxygen saturations, blood pressure, adequacy of pulmonary ventilation, and response to care were monitored throughout the procedure. The physical status of the patient was re-assessed after the procedure. After obtaining informed consent, the endoscope was passed under direct vision. Throughout the procedure, the patient's blood pressure, pulse, and oxygen saturations were monitored continuously. The Colonoscope was introduced through the mouth, and advanced to the jejunum. Small bowel enteroscopy was deemed necessary. The upper GI endoscopy was accomplished without difficulty. The patient tolerated the procedure well. Scope In: 1:05:17 PM Scope Out: 1:10:14 PM Total Procedure Duration Time 0 hours 4 minutes 57 seconds Findings: The examined esophagus was normal. One 8 mm angiodysplastic lesion with bleeding was found on the greater curvature of the stomach. Coagulation for bleeding prevention using heater probe was successful. Estimated blood loss was minimal. Many non-bleeding linear gastric ulcers with no stigmata of bleeding were found in the gastric body. The largest lesion was 6 mm in largest dimension. Biopsies were taken with a cold forceps for histology. Verification of patient identification for the specimen was done. Biopsies were taken with a cold forceps for Helicobacter pylori testing. Verification of patient identification for the specimen was done. Estimated blood loss was minimal. No gross lesions were noted in the entire examined duodenum. Impression: - Normal esophagus. 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 Treated with a heater probe. - Non-bleeding gastric ulcers with no stigmata of bleeding. Biopsied. - No gross lesions in the entire examined duodenum. Recommendation: - Discharge patient to home. - Resume previous diet. - Continue present medications. - Await pathology results. -Carafate 1 g 3 times a day for 4 weeks and Protonix 40 mg twice a day for 8 weeks Procedure Code(s): --- Professional --- 72714, 59, Small intestinal endoscopy, enteroscopy beyond second portion of duodenum, not including ileum; with control of bleeding (eg, injection, bipolar cautery, unipolar cautery, laser, heater probe, stapler, plasma rental representative) 34903, 51, Small intestinal endoscopy, enteroscopy beyond second portion of duodenum, not including ileum; with biopsy, single or multiple CPT copyright 2021 [employer]. All rights reserved. The codes documented in this report are preliminary and upon national secretary review may be revised to meet current compliance requirements. Kali Gar DO 02/18/2025 1:18:51 PM This report has been signed electronically. Number of Addenda: 0 Note Initiated On: 02/18/2025 1:00 PM 02/18/25 1318 Date _ Kali Gar DO Cosigner Signature: Date (if indicated) CC: VIVIEN FOREMAN MD; Kali Gar DO ~ Date Dictated: 02/18/25 1300 Date Transcribed: Assistant Store Leader: RF Signed [facility]08-11-2025 Procedure note [facility] Medical Records Department [address] [place] [address] Provation Physician Letter MR#: [id number] Acct: [id number] Name: ANDREW ARNOLD Rep #:[id number] : 1945 79 From: Kali Gar DO PCP: VIVIEN FOREMAN MD Status:[facility] 02/18/2025 Vivien Foreman Md Re : Upper GI endoscopy procedure for Andrew Arnold Cucar Corina This procedure was performed on Tuesday, February 18, 2025. My impressions and recommendations are as follows: Impressions : - Normal esophagus. 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 Treated with a heater probe. - Non-bleeding gastric ulcers with no stigmata of bleeding. Biopsied. - No gross lesions in the entire examined duodenum. Recommendations : - Discharge patient to home. - Resume previous diet. - Continue present medications. - Await pathology results. -Carafate 1 g 3 times a day for 4 weeks and Protonix 40 mg twice a day for 8 weeks My findings are described in the full procedure note, which is enclosed. If I can be of further assistance, please feel free to contact me at . Sincerely, Kali Gar DO 02/18/2025 1:18:51 PM This report has been signed electronically. 02/18/25 1318 Date _ Kali Gar DO Cosigner Signature: Date (if indicated) CC: VIVIEN FOREMAN MD; Kali Gar DO ~ Date Dictated: 02/18/25 1300 Date Transcribed: Assistant Store Leader: RF Signed [facility]08-11-2025 History and physical note [facility] Medical Records Department [address] [place] [address] History & Physical Exam 02/18/25 1249 MR#: [id number] Acct: [id number] Name: ANDREW ARNOLD Rep #:[id number] : 1945 79 From: Kali Gar DO PCP: VIVIEN FOREMAN MD Status:[facility] Location: [place] [address] HPI - General General Date of Admission: 02/18/25 Date of Service: 02/18/25 Chief Complaint: Anemia HPI Narrative ANDREW ARNOLD, is a 79 M who presents for the evaluation of anemia. He had a history of TIA, subduralhematoma, type 2 diabetes, atrial fibrillation and non- ST segment elevation PA on Eliquis therapy and low-dose aspirin. His hemoglobinhas progressively been going down. He was Hemoccult positive. He is consented for upper endoscopy to evaluate his upper GI tract for possible upper GI bleed. [facility] Medical History History of subdural hematoma TIA (transient ischemic attack) Essential (primary) hypertension Mood disorder Type 2 diabetes mellitus with hyperglycemia Atrial fibrillation Coronary artery disease Blood in stool BPH (benign prostatic hyperplasia) Urinary retention Cellulitis of left hand Abscess of left hand Acute heart failure with preserved ejection fraction (HFpEF) Transaminitis Acute kidney injury Demand ischemia Elevated troponin Diabetic ketoacidosis Acute encephalopathy Streptococcal bacteremia Septic shock Debility Home Medications ?Medication ?Instructions ?Recorded ?Last Taken ?Type apixaban 5 mg tablet (Eliquis) 5 mg PO BID blood thinn er 02/09/25 Unknown History Held on 02/18/25. Instructions: Ordered ascorbic acid (vitamin C) 500 mg 500 mg PO .every r day 02/09/25 02/17/25 History capsule supplement aspirin 81 mg tablet 81 mg PO DAILY heart 2 5 02/17/25 History bumetanide 1 mg tablet 0.5 mg PO QODAY diuretic 09/0402/17/25 History ceftriaxone 2 gram intravenous 2 g IV DAILY infection 02/09/25 02/17/25 History solution docusate sodium 100 mg capsule 100 mg PO BID bowel 09/0402/17/25 History escitalopram oxalate 10 mg tablet 10 mg PO QHS mood 02/17/25 History fluconazole 200 mg tablet 200 mg PO DAILY infection 02/17/25 History insulin glargine 100 unit/mL 20 unit subcut QHS diabet es 02/09/25 02/17/25 History subcutaneous solution (Lantus U-100 Insulin) lisinopril 5 mg tablet 5 mg PO DAILY heart health 0 02/09/25 02/17/25 History metoprolol succinate 25 mg 25 mg PO DAILY heart health 02/09/25 02/17/25 History tablet,extended release 24 hr pantoprazole 40 mg tablet,delayed 40 mg PO BID stomach 02/09/25 Unknown History release potassium chloride 10 mEq 10 meq PO QODAY supplement 0 02/09/25 Unknown History tablet,extended release Held on 02/18/25. Instructions: Ordered sennosides 8.6 mg-docusate sodium 1 tab-cap PO BID bow el 02/09/25 Unknown History 50 mg tablet (Senna with Docusate Sodium) tamsulosin 0.4 mg capsule 0.4 mg PO .After evening josh l 02/09/25 02/17/25 History prostate acetaminophen 500 mg capsule 1,000 mg PO Q8 02/18/25 0 02/17/25 History atorvastatin 20 mg tablet (Lipitor) 20 mg PO QHS 02/18 Unknown History bisacodyl 10 mg rectal suppository 10 mg GA DAILY PRN constipation 02/18/25 Unknown History insulin lispro 100 unit/mL 7 unit subcut TID 02/18/25 02/17/25 History subcutaneous solution nystatin 150 million unit oral unit 02/18/25 Unknown H istory powder Allergy/AdvReac Type Severity Reaction Status Date / Time pioglitazone (From Actos) AdvReac Other Verified 02/09/25 19:11 Family History Mother COPD (chronic obstructive pulmonary disease) Father Diabetes Grandmother CVA (cerebral vascular accident) Surgical History Status post de Quervain release surgery History of oral cancer History of cardiac cath History 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 Social History household members: significant other and other details: Sister in law Smoking Status: Former smoker Smokeless tobacco user: chewing tobacco alcohol intake: never substance use type: does not use ROS Constitutional Constitutional: Denies fatigue, fever(s), poor appetite, weight gain or weight loss Gastrointestinal Gastrointestinal: Denies belching, bloating, change in bowel habits, change in stool character, chewing difficulty, coffee ground emesis, constipation, cramping, diarrhea, dyspepsia, dysphagia, earlysatiety, excessive flatus, fecalincontinence, heartburn, hematemesis, hematochezia, hemorrhoids, loose stools, melena, nausea, odynophagia, rectal bleeding, tenesmus, vomiting or weight changes Vital Signs Vital Signs Vital Signs: 02/18/25 12:18 02/18/25 12:18 02/18/25 12:48 Temperature 98.3 F 98.3 F Temperature Source Temporal Pulse Rate 84 84 Respiratory Rate 16 16 Respiratory Pattern Normal Blood Pressure 130/73 H 130/73 H Blood Pressure Mean 92 Blood Pressure Source Monitor Blood Pressure Position Semi-Fowlers Blood Pressure Location Right Arm Pulse Ox 97 97 Oxygen Delivery Method Room Air Room Air Weight Weight: 215 lb Body Mass Index (BMI) 33.6 Physical Exam Const alert, oriented x3, no apparent distress and healthy appearing General Appearance: cooperative GI normal to inspection, nondistended, normoactive bowel sounds, soft to palpation,non-tender and non-distended Percussion: normal to percussion Rectal Exam: deferred Assessment & Plan Assessment/Plan (1) Anemia: (2) Blood in stool: PLAN: He will undergo an upper endoscopy and possible colonoscopy. He was explained alternatives, risk and benefits include not withstanding bleeding, infection, sepsis, perforation, need for return to . He will have an ASA 3. 02/18/25 1251 Cosigner Signature (if applicable): CC: VIVIEN FOREMAN MD; Kali Gar DO~ Signed [facility]08-11-2025 [facility] Medical Records Department [address] [place] [address] History Physical Exam 02/18/25 1249 MR#: [id number] Acct: [id number] Name: ANDREW ARNOLD Rep #: [id number] : 1945 79 From: Kali Gar DO PCP: VIVIEN FOREMAN MD Status:[facility] Location: [place] [address] HPI - General General Date of Admission: 02/18/25 Date of Service: 02/18/25 Chief Complaint: Anemia HPI Narrative ANDREW ARNOLD, is a 79 M who presents for the evaluation of anemia. He had a history of TIA, subdural hematoma, type 2 diabetes, atrial fibrillation and non-ST segment elevation PA on Eliquis therapy and low-dose aspirin. His hemoglobin has progressively been going down. He was Hemoccult positive. He is consented for upper endoscopy to evaluate his upper GI tract for possible upper GI bleed. [facility] Medical History History of subdural hematoma TIA (transient ischemic attack) Essential (primary) hypertension Mood disorder Type 2 diabetes mellitus with hyperglycemia Atrial fibrillation Coronary artery disease Blood in stool BPH (benign prostatic hyperplasia) Urinary retention Cellulitis of left hand Abscess of left hand Acute heart failure with preserved ejection fraction (HFpEF) Transaminitis Acute kidney injury Demand ischemia Elevated troponin Diabetic ketoacidosis Acute encephalopathy Streptococcal bacteremia Septic shock Debility Home Medications ???Medication ???Instructions ???Recorded ???Last Taken ???Type apixaban 5 mg tablet (Eliquis) 5 mg PO BID blood thinner 02/09/25 Unknown History Held on 02/18/25. Instructions: Ordered ascorbic acid (vitamin C) 500 mg 500 mg PO .every other day 5 02/17/25 History capsule supplement aspirin 81 mg tablet 81 mg PO DAILY heart 02/09/2502/08 History bumetanide 1 mg tablet 0.5 mg PO QODAY diuretic 02/09/25 02/17/25 History ceftriaxone 2 gram intravenous 2 g IV DAILY infection 02/09/25 History solution docusate sodium 100 mg capsule 100 mg PO BID bowel 02/09/2502/17 History escitalopram oxalate 10 mg tablet 10 mg PO QHS mood 02/09/25 History fluconazole 200 mg tablet 200 mg PO DAILY infection 02/09/25 02/17/25 History insulin glargine 100 unit/mL 20 unit subcut QHS diabetes 02/17/25 History subcutaneous solution (Lantus U-100 Insulin) lisinopril 5 mg tablet 5 mg PO DAILY [facility] 5 02/17/25 History metoprolol succinate 25 mg 25 mg PO DAILY [facility] 02/17/25 History tablet,extended release 24 hr pantoprazole 40 mg tablet,delayed 40 mg PO BID stomach 02/09/25 Unk nown History release potassium chloride 10 mEq 10 meq PO QODAY supplement 5 Unknown History tablet,extended release Held on 02/18/25. Instructions: MD Ordered sennosides 8.6 mg-docusate sodium 1 tab-cap PO BID bowel 02/09/25 U nknown History 50 mg tablet (Senna with Docusate Sodium) tamsulosin 0.4 mg capsule 0.4 mg PO .After evening meal 09/0402/17/25 History prostate acetaminophen 500 mg capsule 1,000 mg PO Q8 02/18/25 02/17/25 H istory atorvastatin 20 mg tablet (Lipitor) 20 mg PO QHS 02/18/25 Unknown H istory bisacodyl 10 mg rectal suppository 10 mg GA DAILY PRN constipation 02/18/25 Unknown History insulin lispro 100 unit/mL 7 unit subcut TID 02/18/25 5 History subcutaneous solution nystatin 150 million unit oral unit 02/18/25 Unknown History powder Allergy/AdvReac Type Severity Reaction Status Date / Time pioglitazone (From Actos) AdvReac Other Verified 02/09/25 19:11 Family History Mother COPD (chronic obstructive pulmonary disease) Father Diabetes Grandmother CVA (cerebral vascular accident) Surgical History Status post de Quervain release surgery History of oral cancer History of cardiac cath History 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 Social History household members: significant other and other details: Sister in law Smoking Status: Former smoker Smokeless tobacco user: chewing tobacco alcohol intake: never substance use type: does not use ROS Constitutional Constitutional: Denies fatigue, fever(s), poor appetite, weight gain or weight loss Gastrointestinal Gastrointestinal: Denies belching, bloating, change in bowel habits, change in stool character, chewing difficulty, coffee ground emesis, constipation, cramping, diarrhea, dyspepsia, dysphagia, early satiety, excessive flatus, fecal incontinence, heartburn, hematemesis, hematochezia, hemorrhoids, loose stools, melena (more content not included)...[facility]08-11-2025 Consult note [facility] Medical Records Department [address] [place] [address] Pre-Anesthesia Evaluation 02/18/25 1238 MR#: [id number] Acct: [id number] Name: ANDREW ARNOLD Rep #:[id number] : 1945 79 From: Leo Cassidy MD PCP: VIVIEN FOREMAN MD Status:[facility] Y Race: C Location: [place] [address] ASA Classification* ASA Classification ASA Classification: 3 Assessment & Plan Anesthesia* Anesthesia Assessment Anesthesia Assessment: Discussed sedation and/or anesthesia options, risks, benefits, and alternatives with patient/parents/legal guardian/POA. Questions invited. The patient/parents/legal guardian/POA seems to understand and agrees to proceedwith anesthesia plan. Reviewed the physical assessment, medical history, allergy history and patient home medications list prior to surgery/procedure/anesthetic and documented any changes. Performed airway and anesthesia risk assessments. Anesthesia Type Anesthesia Type: MAC History Source History Obtained from:: Patient and Chart Anesthesia Focused Assessment* Temperature: 98.3 F Pulse Rate: 84 Blood Pressure: 130/73 Respiratory Rate: 16 Pulse Ox: 97 Oxygen Delivery Method: Room Air Airway Assessment Mouth opens: >3 cm Mallampati Score: IV Teeth Condition: Missing (Patient is edentulous.) Neck Range of motion (ROM): Limited ROM (Severe Restriction) Labs Anesthesia Preop lab: CBC WBC 5.4 K/mm3 (4.4-11.0) 02/15/25 05:38 02/15/25 RBC 3.09 M/mm3 (4.6-6.2) L 02/15/25 05:38 02/15/25 Hgb 8.4 g/dL (13.0-16.5) L 02/15/25 05:38 02/15/25 Hct 26.2 % (40-54) L 02/15/25 05:38 02/15/25 Plt Count 243 K/mm3 (150-450) 02/15/25 05:38 02/15/25 CHEMISTRY Potassium 4.5 mmol/L (3.3-5.1) 02/16/25 07:06 02/16/25 Sodium 132 mmol/L (133-145) L 02/16/25 07:06 02/16/25 BUN 20 mg/dL (4-19) H 02/16/25 07:06 02/16/25 Creatinine 0.99 mg/dL (0.70-1.20) 02/16/25 07:06 02/16/25 Glucose 265 mg/dL (70-99) H 02/16/25 07:06 02/16/25 POC Glucose 166 mg/dL (74-106) H 02/18/25 11:36 02/18/25 COAG Pre-Assessment Diagnosis/Proposed Procedure Planned Operative Procedure(s): Esophagogastroduodenoscopy Anesthesia History 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 When Was Last Pacemaker Check QUESTION #4 FULL TEXT: You/Your Family Experience fever (hyperthermia) with Anesthesia Last Oral Intake Last Oral intake: Last Oral Intake NPO since 00:00 02/18/25 12:18 Meds taken in AM with sips of water? 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 Has anyone observed you stop breathing during sleep? STOP Results QUESTION #5 FULL TEXT : Do you snore loudly (louder than talking or can be heard through closeddoors)? Tobacco Use History Tobacco Use History - veterans service officer: Tobacco Use History - veterans service officer Tobacco Use Smoking Status Former smoker 02/11/25 07:28 Hx Tobacco Use No 02/09/25 17:58 Years Smoking Packs Smoked per Day Smoking Cessation Date was within the last 15 years Hx Smoking Cessation Date Hx Smoking Cessation Counseling Hematologic Medial History Hematologic Hx - veterans service officer: Hematologic Medical Hx - clinical field specialist Hx of Blood Transfusion Hx of Transfusion in last 3 Months Date of Last Transfusion (if within last 3 months) Ever experience any problems with transfusion(s)? Specify any problems Hx of Preganancy in last 3 Months Nurse Filling Out Transfusion & Questions: Date: Time: Patient unable to answer at this time (ie. confused, unrespo /Reproduction History /Reproductive History - veterans service officer: /Reproductive Hx- veterans service officer Hx Now Gestational Age (in weeks): EDC: Hx Hx Para Hx Section SAB Active Medications Active Medications: Current Medications Generic Name Dose Route Start Last Admin Trade Name Freq PRN Reason Stop Dose Admin Lactated Ringer's 1,000 mls @ 15 mls/hr 02/18/25 12:00 02/18/25 12:15 IV 15 mls/hr .Q48H TEREZA Administration PFSH Medical History History of subdural hematoma TIA (transient ischemic attack) Essential (primary) hypertension Mood disorder Type 2 diabetes mellitus with hyperglycemia Atrial fibrillation Coronary artery disease Blood in stool BPH (benign prostatic hyperplasia) Urinary retention Cellulitis of left hand Abscess of left hand Acute heart failure with preserved ejection fraction (HFpEF) Transaminitis Acute kidney injury Demand ischemia Elevated troponin Diabetic ketoacidosis Acute encephalopathy Streptococcal bacteremia Septic shock Debility Home Medications ?Medication ?Instructions ?Recorded ?Last Taken ?Type apixaban 5 mg tablet (Eliquis) 5 mg PO BID blood thinn er 02/09/25 Unknown History Held on 02/18/25. Instructions: Ordered ascorbic acid (vitamin C) 500 mg 500 mg PO .every othe r day 02/09/25 02/17/25 History capsule supplement aspirin 81 mg tablet 81 mg PO DAILY heart 5 02/17/25 History bumetanide 1 mg tablet 0.5 mg PO QODAY diuretic 09/0402/17/25 History ceftriaxone 2 gram intravenous 2 g IV DAILY infection 02/09/25 02/17/25 History solution docusate sodium 100 mg capsule 100 mg PO BID bowel 09/0402/17/25 History escitalopram oxalate 10 mg tablet 10 mg PO QHS mood 02/17/25 History fluconazole 200 mg tablet 200 mg PO DAILY infection 02/17/25 History insulin glargine 100 unit/mL 20 unit subcut QHS diabet es 02/09/25 02/17/25 History subcutaneous solution (Lantus U-100 Insulin) lisinopril 5 mg tablet 5 mg PO DAILY heart health 0 02/09/25 02/17/25 History metoprolol succinate 25 mg 25 mg PO DAILY heart health 02/09/25 02/17/25 History tablet,extended release 24 hr pantoprazole 40 mg tablet,delayed 40 mg PO BID stomach 02/09/25 Unknown History release potassium chloride 10 mEq 10 meq PO QODAY supplement 0 02/09/25 Unknown History tablet,extended release Held on 02/18/25. Instructions: MD Ordered sennosides 8.6 mg-docusate sodium 1 tab-cap PO BID bow el 02/09/25 Unknown History 50 mg tablet (Senna with Docusate Sodium) tamsulosin 0.4 mg capsule 0.4 mg PO .After evening josh l 02/09/25 02/17/25 History prostate acetaminophen 500 mg capsule 1,000 mg PO Q8 02/18/25 0 02/17/25 History atorvastatin 20 mg tablet (Lipitor) 20 mg PO QHS 02/18 Unknown History bisacodyl 10 mg rectal suppository 10 mg GA DAILY PRN constipation 02/18/25 Unknown History insulin lispro 100 unit/mL 7 unit subcut TID 02/18/25 02/17/25 History subcutaneous solution nystatin 150 million unit oral unit 02/18/25 Unknown H istory powder Allergy/AdvReac Type Severity Reaction Status Date / Time pioglitazone (From Actos) AdvReac Other Verified 02/09/25 19:11 Family History Mother COPD (chronic obstructive pulmonary disease) Father Diabetes Grandmother CVA (cerebral vascular accident) Surgical History Status post de Quervain release surgery History of oral cancer History of cardiac cath 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 02/18/25 1248 bishop OWEN> Date _ Leo Cassidy MD Cosigner Signature: Date CC: ~ Signed [facility]08-11-2025 History of Present illness Narrative* Paola Rangel LPN - 02/18/2025 11:52 AM EDT Andrew is at [facility] ([phone]) getting IV antibiotics thru 02-27-25. Per Dr Cooper the sutures can be removed on 02-22-25 and apply a dry sterile dressing. He would like to seehim in the office when he gets home. I have tentatively made him an appointment on 03-01-25. documented in this [id number] NotePatient not available to answer calls a voicemail was dropped to call the clinic if there is any question or concerns.. AUTHENTICATED BY DARRELL NORMAN, ON 02/15/2025 14:36:[address] [place] [address] 02-15-2025 History of Present illness Narrative* Darrell Norman CNP - 02/15/2025 2:35 PM EDT Patient not available to answer calls a voicemail was dropped to call the clinic if there is any question or concerns.. documented in this [id number] Evaluation note* Diagnosis Onset Date Resolution Status Admit Date Abscess of left hand acute Augu st 2024 4:54pm Acute encephalopathy acute Augu st 2024 4:54pm Acute heart failure with preserved ejection fraction (HFpEF) acute February 09, 2025 4:54pm Acute kidney injury acute Augus t 2024 4:54pm Atrial fibrillation acute Augus t 2024 4:54pm Blood in stool acute February 4:54pm BPH (benign prostatic hyperplasia) acute February 09, 2025 4:54pm Cellulitis of left hand acute A ugust 2024 4:54pm Coronary artery disease acute A ugust 2nd, 2025 4:54pm Debility acute February 09 4:54pm Demand ischemia acute February 4:54pm Diabetic ketoacidosis acute Feb 4:54pm Elevated troponin acute February 09, 2025 4:54pm Esophageal candidiasis acute Au 2024 4:54pm Essential (primary) hypertension acu te February 09, 2025 4:54pm History of subdural hematoma acute February 09, 2025 4:54pm Mood disorder acute February 09, 2025 4:54pm Septic shock acute February 09, 2025 4:54pm Streptococcal bacteremia acute February 09, 2025 4:54pm TIA (transient ischemic attack) acut e February 09, 2025 4:54pm Transaminitis acute February 09, 2025 4:54pm Type 2 diabetes mellitus wit h hyperglycemia acute February 09, 2025 4:54pm Urinary retention acute February 09, 2025 4:54pm Anemia acute February 18, 2 025 11:57am Blood in stool acute February 11:57am [facility] Work Phone: [phone]) 169-692308-02-2025 [facility] Medical Records Department [address] [place] [address] History Physical Exam 02/09/25 1804 MR#: [id number] Acct: [id number] Name: ANDREW ARNOLD Rep #: [id number] : 1945 79 From: Gaetano Menendez MD PCP: VIVIEN FOREMAN MD Status:ADM IN Location: [place] [address] HPI - General General Date of Admission: 02/09/25 Date of Service: 02/11/25 Chief Complaint: Here for rehabilitation. HPI Narrative ANDREW ARNOLD, is a 79 Male who presents with followin01/28/2025 Admit [facility] with malaise, tachycardia, after left ganglion cyst removal. Vancomycin, Zosyn, Clindamycin, pressors, panculture, IV fluids ID consult for septic shock 2/2 left hand cellulitis/abscess. Insulin drip, IV fluids for diabetic ketoacidosis, glucose 528. Trend troponin, heparin drip for elevated troponin. Trend AST/ALT for transaminitis 2/2 septic shock. IV fluids, Hold Lisinopril, avoid nephrotoxins for acute kidney injury. 01/29/2025 Blood cultures positive for strep 2 out of 2 bottles, Lactic acid improved from 5.8 to 2.9. Vancomycin, Zosyn, Clindamycin. Urinalysis positive for ketones for DKA. Troponin 247, 1046, 2216 2/2 demand ischemia/sepic shock, Cardiology consulted. 01/30/2025 Echo EF 43% Global systolic dysfunction. Stop IV fluids for acute HFpEF. Change antibiotics from Vancomycin, Zosyn, Clindamycin to PCN G per Infectious Disease. 01/31/2025 CT left hand negative for septic arthritis. SHAHAB to rule out endocarditis. Creatinine 1.65, 2.26, 3.06, Nephrology consulted. Brenner catheter with good urine output. 02/01/2025 OR incision and drainage left hand today. PCN G for strep bacteremia, septic shock, left hand abscess/cellulitis. Renal ultrasound negative. Creatinine improved to 2.53. 02/02/2025 Continue PCN G. SHAHAB postponed to 02/05/2025. Lantus 30 units bid for diabetes mellitus II, DKA, sugar improved. Creatinine improved to .95. 02/03/2025 Surgical cultures grew gram positive cocci. Repeat blood culture 02/01/2025 positive growing strep agalactiae. Encephalopathy resolved. Creatinine improved to 1.50. Restart Eliquis soon for atrial fibrillation. 02/04/2025 NSTEMI 2/2 demand ischemia. Decrease Lantus to 25 units bid for Diabetes Mellitus II, DKA. Stop heparin drip for elevated troponin 2/2 demand ischemia 2/2 septic shock. 02/05/2025 SHAHAB negative for vegetations. Continue PCN G for strep bacteremia, repeat blood culture negative. Hemoccult positive, GI recommends restarting Eliquis, no sign of bleeding. 02/06/2025 Ceftriaxone IV at discharge for strep agalactiae for convenience of administration. Restart Lexapro for depression. Nystatin for thrush. 02/07/2025 Flomax, bladderscan, consider brenner for urinary retention. Resume Eliquis, GI deferred endoscopy. Fluconazole for 2 weeks for esophageal candidiasis. 02/08/2025 Ceftriaxone IV for 3-4 weeks for strep agalactiae bacteremia. Fluconazole for esophageal candidiasis. 02/09/2025 Admit to TCU with debility, here for rehabilitation, strengthening, intravenous antibiotics, prior to discharge home with significant other. [facility] Medical History History of subdural hematoma TIA (transient ischemic attack) Essential (primary) hypertension Mood disorder Type 2 diabetes mellitus with hyperglycemia Atrial fibrillation Coronary artery disease Blood in stool BPH (benign prostatic hyperplasia) Urinary retention Cellulitis of left hand Abscess of left hand Acute heart failure with preserved ejection fraction (HFpEF) Transaminitis Acute kidney injury Demand ischemia Elevated troponin Diabetic ketoacidosis Acute encephalopathy Streptococcal bacteremia Septic shock Debility Home Medications ???Medication ???Instructions ???Recorded ???Last Taken ???Type apixaban 5 mg tablet (Eliquis) 5 mg PO BID blood thinner 02/09/25 Unknown History ascorbic acid (vitamin C) 500 mg 500 mg PO .every other day 5 Unknown History capsule supplement aspirin 81 mg tablet 81 mg PO DAILY heart 02/09/25 Unkn own History bumetanide 1 mg tablet 0.5 mg PO QODAY diuretic 02/09/25 Unknown History ceftriaxone 2 gram intravenous 2 g IV DAILY infection 02/09/25 Un known History solution docusate sodium 100 mg capsule 100 mg PO BID bowel 02/09/25 Unkno wn History escitalopram oxalate 10 mg tablet 10 mg PO QHS mood 02/09/25 Unknow n History fluconazole 200 mg tablet 200 mg PO DAILY infection 02/09/25 Unknown History insulin glargine 100 unit/mL 5 unit subcut QHS diabetes 5 Unknown History subcutaneous solution (Lantus U-100 Insulin) lisinopril 5 mg tablet 5 mg PO DAILY [facility] 5 Unknown History metoprolol succinate 25 mg 25 mg PO DAILY [facility] Unknown History tablet,extended release 24 hr pantoprazole 40 (more content not included)...[facility] 02-09-2025 [facility]08-02-2025 History of Present illness Narrative * Kunal Norman MD - 02/09/2025 3:00 PM EDT Patient Name: Andrew Arnold Admit Date: [id number] MR #: [id number] : 1945 Physicians: Vivien Foreman MD (Family); No ref. provider found (Referring) Assessment: Patient with 1. Septic shock, 2. Suspicion for pneumonia, 3. Respiratory failure, 4. Leukocytosis. 5. Left upper extremity cellulitis/fasciitis 6. Bacteremia with Streptococcus agalactia 7. Liver dysfunction, improving 8. Possible candidal esophagitis. Plan. Continue patient on current therapy Status post discontinue IV clindamycin Patient on IV penicillin G, okay to switch to IV ceftriaxone on discharge. Patient p.o. fluconazole. Okay to DC p.o. nystatin while patient on fluconazole p.o. Patient status post DC IV Zosyn. Status post DC IV vancomycin DC IV vancomycin if negative MRSA. Keep a close eye on the wound area and also on the kidney function I appreciate orthopedic evaluation, status post I&D. I reviewed labs. I reviewed SHAHAB, with Difficulty is started this noted, ejection fraction of 55 to 60%, bioprosthetic valve is seen in position leaflets appear thickened, no evidence of vegetation aortic root abscessdegenerative mitral valve changes mild mitral regurgitation overall no definite evidence of vegetation, however cannot rule out underlying infective process affecting the bioprosthetic valve given the clinical picture with bacteremia. Reviewed blood culture with Streptococcus agalactiae in 2 sets of blood culture. I reviewed repeat blood cultures with no growth. I reviewed urinalysis with large blood, trace leuk esterase, WBC 180 with rare bacteria. Reviewed CT of the pulmonary artery, with groundglass opacity of the upper lobe suspicious for atypical inflammatory infectious process, I reviewed chest x-ray with with borderline cardiomegaly I reviewed echocardiogram, with ejection fraction of 43%, with post aortic valve replacement noted bioprosthetic valve. Cannot exclude mobile density on the leaflets due to image quality. I reviewed Renal ultrasound with no hydronephrosis, bilateral renal cysts and diffuse bladder wall thickening. Reviewed x-ray of the left wrist, with degenerative disease and deformity noted. I reviewed CT of the left upper extremity, with moderate amount of diffuse soft tissue swellings,May be secondary to cellulitis, no CT evidence of septic arthritis, severe degenerative changes and chronic avascular necrosis of the lunate Continue hydration and Patient off pressors Will continue to follow with you. Reviewed the CRP of 311. Aspiration precaution recommended. I reviewed abdominal ultrasound, with cholelithiasis without cholecystitis. I reviewed chest x-ray, lungs are clear no evidence of acute pneumonia or pulmonary edema. Discussed with Dr. Khan on management plan. On discharge: Patient will continue with IV antibiotics for total of 3 to 4 weeks. For ease of administration patient will be discharged on IV ceftriaxone. Okay to add p.o. fluconazole due to dysphagia probably esophagitis from Diana. Subjective: Patient states that he is no more having any dysphagia. Continues on nystatin swish andswallow. Tmax of 98.3. Saturating 94% on room air. Patient tolerated p.o fluconazole. Exam: PACU Vitals 02/09/25 1143 BP: (!) 100/55 Pulse: 85 Resp: (!) 24 Temp: 98.5 F (36.9 C) SpO2: 94% Allergies: Pioglitazone Current Medications[1] PMH/PSH/SH/FH reviewed, no change : Review of Systems: All systems were reviewed no change: Medications Reviewed. Allergies: Pioglitazone Chart Reviewed. Exam Findings: HEENT: Atraumatic/Pupils equal & reactive Neck: Supple, no rigidity ENT: With thrush. Chest: Lungs clear bilaterally, no wheezing, or rales CVS: Normal S1 & S2+, Abdomen: Normal symmetry, Soft/non-tender. Benign, BS+ Extremities: No Deformities, wrist area dressed status post I&D. No drainage and scabbed area. Skin: Intact & No Rashes, or excoriations Musculoskeletal: No joint swelling, non tender PLATFORM SUPERVISOR: Awake, and Ox3, Wound: Left wrist area dressed, status post I&D. Brenner Catheter: Yes IV Access: Yes I reviewed Medications. I reviewed Labs. XR Chest 1 View Final Result 1. Lungs are clear. No evidence of acute pneumonia or pulmonary edema. 2. No pleural effusion. 3. Calcified granuloma at the left lung base, stable. 4. Stable postoperative changes. DMG/trw Workstation ID: [id number] US Abdomen Limited Study Final Result 1. Cholelithiasis without cholecystitis. 2. Hepatic steatosis. No focal liver lesion identified. Workstation ID: [id number] US Renal and Bladder Final Result Question borderline mild increased renal parenchymal echogenicity, can be seen in the setting of medical renal disease. No hydronephrosis. Bilateral renal cortical cysts. Diffuse bladder wall thickening. Bladder volume of 568 mL. Workstation ID: [id number] CT Upper Extremity Left Soft Tissue Without Contrast Final Result 1. There appears to be a moderate amount of diffuse soft tissue swelling along the dorsal aspect ofthe forearm and wrist extending into the hand to the level of the metacarpals. This may be secondary to a cellulitis, but this is nonspecific. 2. No CT evidence of a septic arthritis is seen. 3. 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 4. There are severe degenerative changes at the radiolunate articulation and there are CT findings compatible with the sequela of chronic avascular necrosis of the lunate. 5. Atherosclerotic vascular disease. Workstation ID: [id number] Echocardiogram Complete Final Result CT Pulmonary Arteries Final Result No evidence for acute pulmonary embolism. Ground-glass airspace opacities of the upper lobes suspicious for atypical inflammatory or infectious process. Reflux of contrast into the hepatic veins suggesting CHF. Workstation ID: [id number] XR Chest 1 View Final Result 1. Borderline cardiomegaly and stable elevation of the right hemidiaphragm. 2. Chronic changes noted bilaterally. Workstation ID: [id number] Laboratory and Additional Data Reviewed: Laboratory 02/09/25 3:00 PM Microbiology 02/09/25 3:00 PM Radiology 02/09/25 3:00 PM Medications 02/09/25 3:00 PM Lab Results Component Value Date WBC 11.30 (H) 02/09/2025 HGB 7.6 (L) 02/09/2025 HCT 24.4 (L) 02/09/2025 MCV 83.6 02/09/2025 PLT 325 02/09/2025 Lab Results Component Value Date GLUCOSE 142 (H) 02/09/2025 CALCIUM 8.6 02/09/2025 NA 131 (L) 02/09/2025 K 4.0 02/09/2025 CL 95 (L) 02/09/2025 BUN 11 02/09/2025 CREATININE 1.19 02/09/2025 Problem List Items Addressed This Visit Other * (Principal) Shock (HCC) Other Visit Diagnoses Septic shock (HCC) - Primary Relevant Medications piperacillin-tazobactam (ZOSYN) IVPB 4.5 g (premix) (Completed) cefTRIAXone IV (Outpatient Therapy) cefTRIAXone (ROCEPHIN) IVPB 2 g (premix) Other Relevant Orders OPAT Home Care Labs and Line Removal Shortness of breath Elevated troponin DKA (diabetic ketoacidosis) ([facility]) Relevant Medications insulin regular (Humulin R, Novolin R) injection 20 Units (Completed) insulin lispro (AdmeLOG,HumaLOG) injection 0-30 Units insulin glargine (LANTUS) injection 10 Units (Completed) insulin glargine (LANTUS) injection 15 Units insulin lispro (AdmeLOG,HumaLOG) injection 0-15 Units insulin glargine (Lantus U-100 Insulin) 100 unit/mL injection Anemia of chronic disease I have taken time to review patient's information and having discussions with appropriate care teams, I appreciate seeing your patient, will continue to follow with you, and adjust with more information. Medical Decision Making: High This note is created with the assistance of a speech-recognition program. While intending to generate a document that actually reflects the content of the visit, the document can still have some errors including those of syntax and sound a- like substitutions which may escape proofreading. In such instances, actual meaning can be extrapolated by contextual derivation. [1] Current Facility-Administered Medications: aspirin EC tablet 81 mg, 81 mg, Oral, Daily, Oren Mirlees, , 81 mg at 02/09/25 0822 bumetanide (BUMEX) tablet 1 mg, 1 mg, Oral, Daily, Kelly Burton MD, 1 mg at 02/09/25 0823 cefTRIAXone (ROCEPHIN) IVPB 2 g (premix), 2,000 mg, Intravenous, Q24H, Kunal Norman MD,Last Rate: 100 mL/hr at 02/09/25 0107, 2,000 mg at 02/09/25 0107 escitalopram oxalate (LEXAPRO) tablet 10 mg, 10 mg, Oral, Nightly, Kelly Burton MD, 10 mg at 02/08/252119 fluconazole (DIFLUCAN) tablet 200 mg, 200 mg, Oral, Daily, Kelly Burton MD, 200 mg at 02/09/25 0823 [Held by provider] insulin glargine (LANTUS) injection 15 Units, 15 Units, Subcutaneous, Daily, Kelly Burton MD, 15 Units at 02/08/25 0804 [Held by provider] insulin lispro (AdmeLOG,HumaLOG) injection 0-15 Units, 0-15 Units, Subcutaneous,at bedtime AND Notify physician, , , Until Discontinued, Kelly Burton MD [Held by provider] insulin lispro (AdmeLOG,HumaLOG) injection 0-30 Units, 0-30 Units, Subcutaneous,TID AC, Kelly Burton MD, 4 Units at 02/06/25 1135 lisinopriL (PRINIVIL,ZESTRIL) tablet 5 mg, 5 mg, Oral, Daily, Kelly Burton MD, 5 mg at 02/08/25 0951 melatonin tablet 3 mg, 3 mg, Oral, Nightly PRN, Noemi Andrade MD, 3 mg at 02/06/25 0149 metoprolol succinate (TOPROL-XL) 24 hr tablet 12.5 mg, 12.5 mg, Oral, Daily, Kelly Burton MD, 12.5mg at 02/09/25 0823 naloxone (NARCAN) injection 0.1 mg, 0.1 mg, Intravenous, PRN AND Notify physician, , , Until Discontinued AND naloxone (NARCAN) injection 0.4 mg, 0.4 mg, Intravenous, PRN, Noemi Andrade MD ondansetron (ZOFRAN) injection 4 mg, 4 mg, Intravenous, Q6H PRN, Dominga Muñiz, EXCELLENCE MANAGER, 4 mg at01/29/25 1538 oxyCODONE (ROXICODONE) immediate release tablet 5 mg, 5 mg, Oral, Q4H PRN, Noemi Andrade MD, 5 mg at 02/08/25 0517 pantoprazole (PROTONIX) EC tablet 40 mg, 40 mg, Oral, BID, Noemi Andrade MD, 40 mg at 02/09/25 0824 polyethylene glycol (MIRALAX) powder 17 g, 17 g, Oral, BID PRN, Kelly Burton MD, 17 g at 02/06/25 1332 senna-docusate (SENNA-S) 8.6-50 mg per tablet 1 tablet, 1 tablet, Oral, BID, Oren Mireles DO, 1 tablet at 02/09/25 0824 [Held by provider] simvastatin (ZOCOR) tablet 40 mg, 40 mg, Oral, at bedtime, Kelly Burton MD, 40 mg at 01/31/25 2040 Saline lock IV, , , Continuous AND sodium chloride (PF) (NS) flush 5 mL, 5 mL, Intravenous, PRNAND sodium chloride (PF) (NS) flush 5 mL, 5 mL, Intravenous, Q8H TEREZA, 5 mL at 02/09/25 0634 AND sodium chloride 0.9% (NS), 0-150 mL/hr, Intravenous, PRN, Oren Mireles DO, Last Rate:50 mL/hr at 02/04/25 0506, 50 mL/hr at 02/04/25 0506 tamsulosin (FLOMAX) 24 hr capsule 0.4 mg, 0.4 mg, Oral, After evening meal, Kelly Burton MD, 0.4 mg at 02/08/25 1724 * Sofi Mcneal, RYLEY - 02/09/2025 1:40 PM EDT Report called to [facility]. All questions answered. * Lin Tran RN - 02/09/2025 8:16 AM EDT Care Management Progress Note Date: 02/09/2025 Time: 8:16 AM Patient Name: Andrew Arnold Date of : 1945 Discharge Plan: D/C Disposition: Swing Bed Final D/C Agency/Destination: Other ([facility] (Swing Bed)) HME: None Reason for Choice: Patient/Family preference Regulatory Documentation: Medicare IM Regulatory Documentation Status: Certified Plan A: Retirement Facility Plan A : Post Acute Patient Choice 1: Other ([facility] bed) Patient Paper Copy: Patient declined paper copy Discharging Transportation Plan: Transportation Type: Ambulance Transportation Company/Agency Name: [facility] Discharge Plan Status: IPR Assessment and Background Information: Virtual Care Management Discharge planning IPR Secure chat to medical team with transport time. [phone] Faxed to [facility] the day of discharge bundle * Kunal Norman MD - 02/08/2025 2:59 PM EDT Patient Name: Andrew Arnold Admit Date: [id number] MR #: [id number] : 1945 Physicians: Vivien Foreman MD (Family); No ref. provider found (Referring) Assessment: Patient with 1. Septic shock, 2. Suspicion for pneumonia, 3. Respiratory failure, 4. Leukocytosis. 5. Left upper extremity cellulitis/fasciitis 6. Bacteremia with Streptococcus agalactia 7. Liver dysfunction, improving 8. Possible candidal esophagitis. Plan. Continue patient on current therapy Status post discontinue IV clindamycin Patient on IV penicillin G, okay to switch to IV ceftriaxone on discharge. Okay with p.o. fluconazole. Patient status post DC IV Zosyn. Status post DC IV vancomycin DC IV vancomycin if negative MRSA. Keep a close eye on the wound area and also on the kidney function I appreciate orthopedic evaluation, status post I&D. I reviewed labs. I reviewed SHAHAB, with Difficulty is started this noted, ejection fraction of 55 to 60%, bioprosthetic valve is seen in position leaflets appear thickened, no evidence of vegetation aortic root abscessdegenerative mitral valve changes mild mitral regurgitation overall no definite evidence of vegetation, however cannot rule out underlying infective process affecting the bioprosthetic valve given the clinical picture with bacteremia. Reviewed blood culture with Streptococcus agalactiae in 2 sets of blood culture. I reviewed repeat blood cultures with no growth. I reviewed urinalysis with large blood, trace leuk esterase, WBC 180 with rare bacteria. Reviewed CT of the pulmonary artery, with groundglass opacity of the upper lobe suspicious for atypical inflammatory infectious process, I reviewed chest x-ray with with borderline cardiomegaly I reviewed echocardiogram, with ejection fraction of 43%, with post aortic valve replacement noted bioprosthetic valve. Cannot exclude mobile density on the leaflets due to image quality. I reviewed Renal ultrasound with no hydronephrosis, bilateral renal cysts and diffuse bladder wall thickening. Reviewed x-ray of the left wrist, with degenerative disease and deformity noted. I reviewed CT of the left upper extremity, with moderate amount of diffuse soft tissue swellings,May be secondary to cellulitis, no CT evidence of septic arthritis, severe degenerative changes and chronic avascular necrosis of the lunate Continue hydration and Patient off pressors Will continue to follow with you. Reviewed the CRP of 311. Aspiration precaution recommended. I reviewed abdominal ultrasound, with cholelithiasis without cholecystitis. I reviewed chest x-ray, lungs are clear no evidence of acute pneumonia or pulmonary edema. Discussed with Dr. Khan on management plan. On discharge: Patient will continue with IV antibiotics for total of 3 to 4 weeks. For ease of administration patient will be discharged on IV ceftriaxone. Okay to add p.o. fluconazole due to dysphagia probably esophagitis from Diana. Subjective: Patient scheduling for DC, otherwise no new symptoms, no fever. Tmax of 99.4. Saturating 96% on 2 L.Said to have some mild dysphagia. Has been using nystatin swish but spitting it out. Exam: PACU Vitals 02/08/25 1130 BP: 119/71 Pulse: 78 Resp: Temp: 98.2 F (36.8 C) SpO2: 96% Allergies: Pioglitazone Current Medications[1] PMH/PSH/SH/FH reviewed, no change : Review of Systems: All systems were reviewed no change: Medications Reviewed. Allergies: Pioglitazone Chart Reviewed. Exam Findings: HEENT: Atraumatic/Pupils equal & reactive Neck: Supple, no rigidity ENT: With thrush. Chest: Lungs clear bilaterally, no wheezing, or rales CVS: Normal S1 & S2+, Abdomen: Normal symmetry, Soft/non-tender. Benign, BS+ Extremities: No Deformities, wrist area dressed status post I&D. No drainage and scabbed area. Skin: Intact & No Rashes, or excoriations Musculoskeletal: No joint swelling, non tender PLATFORM SUPERVISOR: Awake, and Ox3, Wound: Left wrist area dressed, status post I&D. Brenner Catheter: Yes IV Access: Yes I reviewed Medications. I reviewed Labs. XR Chest 1 View Final Result 1. Lungs are clear. No evidence of acute pneumonia or pulmonary edema. 2. No pleural effusion. 3. Calcified granuloma at the left lung base, stable. 4. Stable postoperative changes. DMG/trw Workstation ID: [id number] US Abdomen Limited Study Final Result 1. Cholelithiasis without cholecystitis. 2. Hepatic steatosis. No focal liver lesion identified. Workstation ID: [id number] US Renal and Bladder Final Result Question borderline mild increased renal parenchymal echogenicity, can be seen in the setting of medical renal disease. No hydronephrosis. Bilateral renal cortical cysts. Diffuse bladder wall thickening. Bladder volume of 568 mL. Workstation ID: [id number] CT Upper Extremity Left Soft Tissue Without Contrast Final Result 1. There appears to be a moderate amount of diffuse soft tissue swelling along the dorsal aspect ofthe forearm and wrist extending into the hand to the level of the metacarpals. This may be secondary to a cellulitis, but this is nonspecific. 2. No CT evidence of a septic arthritis is seen. 3. 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 4. There are severe degenerative changes at the radiolunate articulation and there are CT findings compatible with the sequela of chronic avascular necrosis of the lunate. 5. Atherosclerotic vascular disease. Workstation ID: [id number] Echocardiogram Complete Final Result CT Pulmonary Arteries Final Result No evidence for acute pulmonary embolism. Ground-glass airspace opacities of the upper lobes suspicious for atypical inflammatory or infectious process. Reflux of contrast into the hepatic veins suggesting CHF. Workstation ID: [id number] XR Chest 1 View Final Result 1. Borderline cardiomegaly and stable elevation of the right hemidiaphragm. 2. Chronic changes noted bilaterally. Workstation ID: [id number] Laboratory and Additional Data Reviewed: Laboratory 02/08/25 2:59 PM Microbiology 02/08/25 2:59 PM Radiology 02/08/25 2:59 PM Medications 02/08/25 2:59 PM Lab Results Component Value Date WBC 12.35 (H) 02/08/2025 HGB 7.4 (L) 02/08/2025 HCT 23.9 (L) 02/08/2025 MCV 84.2 02/08/2025 PLT 295 02/08/2025 Lab Results Component Value Date GLUCOSE 104 (H) 02/08/2025 CALCIUM 8.3 (L) 02/08/2025 NA 133 (L) 02/08/2025 K 4.1 02/08/2025 CL 99 02/08/2025 BUN 9 02/08/2025 CREATININE 1.13 02/08/2025 Problem List Items Addressed This Visit None Visit Diagnoses Septic shock (HCC) - Primary Relevant Medications piperacillin-tazobactam (ZOSYN) IVPB 4.5 g (premix) (Completed) penicillin G potassium 3 million unit/50 mL IVPB 3 Million Units cefTRIAXone IV (Outpatient Therapy) cefTRIAXone (ROCEPHIN) IVPB 2 g (premix) (Start on 02/09/2025 12:15 AM) Other Relevant Orders OPAT Home Care Labs and Line Removal Shortness of breath Elevated troponin DKA (diabetic ketoacidosis) (HCC) Relevant Medications insulin regular (Humulin R, Novolin R) injection 20 Units (Completed) insulin lispro (AdmeLOG,HumaLOG) injection 0-30 Units insulin glargine (LANTUS) injection 10 Units (Completed) insulin glargine (LANTUS) injection 15 Units insulin lispro (AdmeLOG,HumaLOG) injection 0-15 Units Anemia of chronic disease I have taken time to review patient's information and having discussions with appropriate care teams, I appreciate seeing your patient, will continue to follow with you, and adjust with more information. Medical Decision Making: High This note is created with the assistance of a speech-recognition program. While intending to generate a document that actually reflects the content of the visit, the document can still have some errors including those of syntax and sound a- like substitutions which may escape proofreading. In such instances, actual meaning can be extrapolated by contextual derivation. [1] Current Facility-Administered Medications: apixaban (ELIQUIS) tablet 5 mg, 5 mg, Oral, BID, Kelly Burton MD, 5 mg at 02/08/25 0804 aspirin EC tablet 81 mg, 81 mg, Oral, Daily, Oren Mireles , 81 mg at 02/08/25 0804 bumetanide (BUMEX) tablet 1 mg, 1 mg, Oral, Daily, Kelly Burton MD, 1 mg at 02/08/25 0951 [START ON 02/09/2025] cefTRIAXone (ROCEPHIN) IVPB 2 g (premix), 2,000 mg, Intravenous, Q24H, Kunal Norman MD dextrose 5 % infusion, 50 mL/hr, Intravenous, Continuous, Cindy Herrera, EXCELLENCE MANAGER, Last Rate: 50 mL/hr at 02/08/25 0233, 50 mL/hr at 02/08/25 0233 escitalopram oxalate (LEXAPRO) tablet 10 mg, 10 mg, Oral, Nightly, Kelly Burton MD, 10 mg at 02/07/25 2212 fluconazole (DIFLUCAN) tablet 200 mg, 200 mg, Oral, Daily, Kelly Burton MD [Held by provider] insulin glargine (LANTUS) injection 15 Units, 15 Units, Subcutaneous, Daily, Kelly Burton MD, 15 Units at 02/08/25 0804 [Held by provider] insulin lispro (AdmeLOG,HumaLOG) injection 0-15 Units, 0-15 Units, Subcutaneous,at bedtime AND Notify physician, , , Until Discontinued, Kelly Burton MD [Held by provider] insulin lispro (AdmeLOG,HumaLOG) injection 0-30 Units, 0-30 Units, Subcutaneous,TID AC, Kelly Burton MD, 4 Units at 02/06/25 1135 lisinopriL (PRINIVIL,ZESTRIL) tablet 5 mg, 5 mg, Oral, Daily, Kelly Burton MD, 5 mg at 02/08/25 0951 melatonin tablet 3 mg, 3 mg, Oral, Nightly PRN, Noemi Andrade MD, 3 mg at 02/06/25 0149 metoprolol succinate (TOPROL-XL) 24 hr tablet 12.5 mg, 12.5 mg, Oral, Daily, Kelly Burton MD, 12.5mg at 02/08/25 0804 naloxone (NARCAN) injection 0.1 mg, 0.1 mg, Intravenous, PRN AND Notify physician, , , Until Discontinued AND naloxone (NARCAN) injection 0.4 mg, 0.4 mg, Intravenous, PRN, Noemi Andrade MD ondansetron (ZOFRAN) injection 4 mg, 4 mg, Intravenous, Q6H PRN, Dominga Muñiz CNP, 4 mg at01/29/25 1538 oxyCODONE (ROXICODONE) immediate release tablet 5 mg, 5 mg, Oral, Q4H PRN, Noemi Andrade MD, 5 mg at 02/08/25 0517 pantoprazole (PROTONIX) EC tablet 40 mg, 40 mg, Oral, BID, Noemi Andrade MD, 40 mg at 02/08/25 0804 penicillin G potassium 3 million unit/50 mL IVPB 3 Million Units, 3 Million Units, Intravenous, Q4H, Kunal Norman MD, Last Rate: 200 mL/hr at 02/08/25 1310, 3 Million Units at 02/08/25 1310 polyethylene glycol (MIRALAX) powder 17 g, 17 g, Oral, BID PRN, Kelly Burton MD, 17 g at 02/06/25 1332 senna-docusate (SENNA-S) 8.6-50 mg per tablet 1 tablet, 1 tablet, Oral, BID, Oren Mireles DO, 1 tablet at 02/08/25 0804 [Held by provider] simvastatin (ZOCOR) tablet 40 mg, 40 mg, Oral, at bedtime, Kelly Burton MD, 40 mg at 01/31/25 2040 Saline lock IV, , , Continuous AND sodium chloride (PF) (NS) flush 5 mL, 5 mL, Intravenous, PRNAND sodium chloride (PF) (NS) flush 5 mL, 5 mL, Intravenous, Q8H TEREZA, 5 mL at 02/08/25 1314 AND sodium chloride 0.9% (NS), 0-150 mL/hr, Intravenous, PRN, Oren Mireles DO, Last Rate:50 mL/hr at 02/04/25 0506, 50 mL/hr at 02/04/25 0506 tamsulosin (FLOMAX) 24 hr capsule 0.4 mg, 0.4 mg, Oral, After evening meal, Kelly Burton MD, 0.4 mg at 02/07/25 1757 * Malia Bond - 02/08/2025 1:19 PM EDT Medical Transportation set up by CTS per hospital request: Date:02/09/25Tuesday Time:2:30pm Destination: [facility]: Inpatient Rehab [address] [place] [address] Company: [employer] ([phone]) Special needs/equipment:Oxygen Truck Type: Ambulance Companies called:Roundtrip * Mamie Del Rosario PSA - 02/08/2025 1:08 PM EDT Transport request received and is being scheduled, trip information will follow as soon as the timeis secured. * Dillan Cooper MD - 02/08/2025 11:36 AM EDT ATTENDING PHYSICIAN CANDIDA PATRICIO [facility] PRIMARY CARE PHYSICIAN VIVIEN FOREMAN MD ADMITTING PHYSICIAN OREN MIRELES DO CONSULTING PHYSICIAN OREN MIRELES DO At this point in time, he is postoperative day 7 status post left hand irrigation and debridement. He is doing very well. The patient's cultures grew a Streptococcus agalactiae. He has been on appropriate antibiotic. The patient's wounds are clean, dry, intact. There is no significant drainage. Sutures are intact. Flexor and extensor tendons are intact. No streaking, erythema, lymphangitis or cellulitis. IMPRESSION Postoperative day 7 left hand irrigation and debridement. From an orthopedic standpoint, he can transition out of the hospital, continue local daily dressing changes as well as antibiotics, and I will see him in 2 weeks for suture removal. D 02/08/2025 11:37 [id number] 02/08/2025 12:07 MCB/MODL * Lillian Spicer RD - 02/08/2025 11:34 AM EDT Nutrition Care Follow up Monitoring and Evaluation: PO intake was less than 75% at most meals. Nutrition Diagnosis: Impaired nutrient utilization related to multiple cardiac anomalies as evidenced by recommendation for low fat, low sodium, fluid conscious diet. Not Resolved Altered nutrition related lab values related to diabetes, endocrine dysfunction as evidenced by hyperglycemia. Not Resolved Nutrition Intervention: Continue Meals and Snacks Diet:Continue Diabetic; Consistent Carbohydrate 60g/meal Cardiac Nutrition Goals: Tolerate diet with PO intakes >75% most meals Start Date:02/08/2025 Expected End Date:02/14/2025 Nutrition Education: Not appropriate due to clinical presentation Assessment: Pertinent clinical information: pt continues to work with therapies, discharge planning in discussion. Height: 5' 7 Current weight: 97.7 kg (215 lb 6.2 oz) BMI Body mass index is 33.73 kg/m . Weight hx: Wt Readings from Last 10 Encounters: 02/08/25 97.7 kg (215 lb 6.2 oz) 01/28/25 99.8 kg (220 lb) 01/26/25 99.8 kg (220 lb) 01/26/25 99.8 kg (220 lb) 01/22/25 101.4 kg (223 lb 9.6 oz) 11/12/24 101.3 kg (223 lb 6.4 oz) 10/30/24 101.6 kg (223 lb 14.4 oz) 10/19/24 99.3 kg (219 lb) 06/06/24 98.4 kg (217 lb) 05/18/24 100.9 kg (222 lb 8 oz) Current diet order: Diet: Diabetic; Consistent Carbohydrate 60g/meal Cardiac Recent intake: 50-75% of most meals. Current intake likely meets estimated needs. Barriers to adequate p.o. intakes: Confusion/AMS Patient/family comments:Deferred: Pt confused; RDN team to remain available in interim. Difficulty Chewing or Swallowing: No Skin Integrity: Surgical Incision(s) GI Function: LBM: 02/05 Fluid Status: Generalized edema noted Physical Appearance: Unable to assess at this time Labs: Recent Labs 02/08/25 0357 NA 133* K 4.1 BICARB 26 CL 99 GLUCOSE 104* BUN 9 CREATININE 1.13 MG 1.7 ALBUMIN 2.8* Recent Labs 02/06/25 0326 02/07/25 0313 02/08/25 0357 GLUCOSE 84 56* 104* Lab Results Component Value Date HGBA1C 8.7 (H) 01/28/2025 Scheduled Meds: apixaban 5 mg Oral BID aspirin 81 mg Oral Daily bumetanide 1 mg Oral Daily escitalopram oxalate 10 mg Oral Nightly [Held by provider] insulin glargine 15 Units Subcutaneous Daily [Held by provider] lispro insulin 0-15 Units Subcutaneous at bedtime [Held by provider] insulin lispro 0-30 Units Subcutaneous TID AC lisinopriL 5 mg Oral Daily metoprolol succinate 12.5 mg Oral Daily nystatin 500,000 Units Oral 4x daily pantoprazole 40 mg Oral BID pencillin G potassium IVPB 3 Million Units Intravenous Q4H senna-docusate 1 tablet Oral BID [Held by provider] simvastatin 40 mg Oral at bedtime sodium chloride (PF) 5 mL Intravenous Q8H TEREZA tamsulosin 0.4 mg Oral After evening meal Continuous Infusions: dextrose 50 mL/hr (02/08/25 0233) Estimated Energy Needs Total Energy Estimated Needs: 2000 kcal/d Method for Estimating Needs: MSJ x 1.2 x 1 Total Protein Estimated Needs: 80 g/d Method for Estimating Needs: 0.8 g/kg current wt Lillian Spicer RDN, LD, CLC Dietitian Office: [phone] * Elli Hanna RN - 02/08/2025 11:30 AM EDT Care Management Progress Note Date: 02/08/2025 Time: 11:30 AM Patient Name: Andrew Arnold Date of : 1945 Discharge Plan: [facility] SNF (Swing Bed) Discharging Transportation Plan: Ambulance needed Discharge Plan Status: [facility] notified [facility] that they had a bed open today, if pt can cometoday. Per medical team, pt will not be medically ready until tomorrow- stated CM could request ambulance transport for 2pm or after tomorrow. Pt and pt's SO notified. IV ATBs signed printed script faxed [facility] at [phone]. Ambulance transport request sent. 1340- Ambulance transport scheduled for tomorrow at 2:30pm, Unit nurse and medical team notified. Unit nurse is to call [phone] to give [facility] report tomorrow. Ambulance form printed to the unit and pt added to the weekend virtual CM list so they can send DC bundle when discharge orders are in. No other needs Identified. CM signing off. Assessment and Background Information: * Yanna Mcgee OTA - 02/08/2025 10:30 AM EDT Occupational Therapy OCCUPATIONAL THERAPY TREATMENT NOTE Pt's current OT POC is due to be updated this date. Will notify OTR/L of need to review POC and discuss continuation of unmet goals as appropriate. Skilled Therapy Needs After Discharge Anticipate Resolution of Current Assessment Limitations Including: Pain Are OT Skilled Therapy Services Needed After Discharge: Yes Intensity of OT Skilled Therapy: 5 to 7 days per week Anticipated Duration of OT Skilled Therapy: Duration 7 - 10 days OT DME Recommendation: Adaptive equipment kit, Tub seat OT DME Rationale: Patient's condition prevents him/her from accomplishing ADL without recommended equipment, Patient's condition creates an increased risk of safety hazard without recommended equipment, Unreasonable time frame to complete ADL without recommended equipment Rehab Potential: Good Outcomes Measures Prior Function Daily Activity Raw Score: 24 Prior Function Daily Activity % Impaired: 0% AM-PAC Daily Activity Raw Score: 13 AM-PAC Daily Activity % Impaired: 63.03% Activity Tolerance Activity Tolerance: Tolerates 20 - 30 min activity with multiple rests Therapy Precautions Orthotic Devices: No Weight Bearing Status: [facility] General Rehab Precautions: Fall risk (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.) Cognition Arousal/Alertness: Appropriate responses to stimuli Orientation Level: Oriented X4 (but pt had confused conversation during session.) Safety Judgment: Decreased awareness of need for assistance, Decreased awareness of need for safety Problem Solving: Assistance required to identify errors made, Assistance required to generate solutions, Assistance required to implement solutions Attention: Attends to quiet environment Hearing Status: Hard of hearing, Left ear, Right ear Social Interaction: [facility] Comments: Followed all commands throughout session.Pt to discharge to [facility] transitional Unit 02/09/25 ADL Grooming: (declined reporting he needed to) Lower Body Dressing: Moderate assist, Increased time to complete, Use of adaptive equipment Lower Body Dressing - Skilled Intervention Provided: demonstration, monitored patient's safety & tolerance Lower Body Dressing - For: LE positioning, use of figure four technique for lower body ADLs, sequencing of movement, adaptive equipment use Lower Body Dressing - Resulting In: improved participation in ADL task Bed Mobility Supine to Sit: Minimal assist, Head of bed elevated Dry Plasterer Helper: bedrails, bed positioning mechanics Skilled Intervention Provided: monitoring patient response with activity For: efficient movement, safe use of bedrails and/or equipment, sequencing of movement Resulting In: improved performance Functional Transfers Sit to Stand: Minimal assist (from EOB) Bed to Chair Transfers: Minimal assist Dry Plasterer Helper: wheeled walker Skilled Intervention Provided: verbal cues, monitoring patient response with activity For: fall prevention, safe use of AD and/or equipment, safety during functional task(s) Resulting In: improved activity tolerance Exercise Seated Exercises: Participated in distal B UE AROM exs x10 reps, while seated in recliner. Demo difficulty following commands for L hand digit movement. Distal exs addressed to promote improved strength and decreased L hand edema. Also educated to keep L UE elevated on pillow to assist with decreasing edema. Very limited shd movement noted. Skilled intervention provided: instruction on proper technique/alignment, monitoring patient response with exercise For: achieving full ROM as tolerated Resulting In: improved activity tolerance Home Living Obtained Home Living and PLOF info from: Review of patient s medical record Lives With: Significant other Type of Home: Condo Home Layout: One level Rails to enter home: None Number of stairs to enter home: 1 Bathroom Shower/Tub: Walk-in shower Bathroom Toilet: Raised Bathroom Equipment: Grab bars in shower, Grab bars around toilet, Shower chair Bathroom Accessibility: Accessible via walker Mobility Equipment: Cane ADL Equipment: Political Reporter Prior Level of Function Level of [place] - Transfers/Ambulation/Mobility: Independent with community ambulation (no AD) Level of [place] - ADLs: Independent (Sometimes assist for hair combing.) Level of [place] - Homemaking: (S.O. did cooking and laundry tasks.) Driving: Patient drives Vocational: Retired For complete objective data, detailed plan of care and patient education refer to: OT Evaluation flowsheet, OT Evaluation and Treatment flowsheet, OT Treatment flowsheet, patient Plan of Care, Plan of Care progress note, and Patient Education. This note stands as the current Discharge Summary upon patient discharge from the hospital or completion of Occupational Therapy Plan of Care. Cosigned by Lavelle Ramirez OT at 02/08/2025 3:59 PM EDT * Kelly Burton MD - 02/08/2025 8:36 AM EDT [facility] PROGRESS NOTE Patient Name: Andrew Arnold : 1945 Assessment and Plan Andrew Arnold is a 79 y.o. male patient of Vivien Foreman MD with history of CAD s/p CABG, atrial fibrillation on Eliquis, DM II, and mood disorder who presented to [facility] on[facility]/28/2025 with tachycardia and generalized malaise which started few hours after an outpatient lefthand abscess drainage. 02/08: Hemoglobin stable around 7.4. Check iron panel, B12/folate*. Will consider 1U PRBCs*. Kidney function stable, resuming low-dose PATRICIA inhibitor, Bumex 1 mg daily. Discontinue all insulin, blood sugar between 140-180 will resume. Left upper extremity cellulitis/abscess Group B strep bacteremia He is s/p left hand ganglion cyst I&D on 01/26. CT of the LUE on 01/27 showed moderate amount of diffuse soft tissue swelling along the dorsal aspect of the forearm and wrist extending into the hand to the level of the metacarpals. No evidence of septic arthritis. S/p irrigation and debridement of the wound. Wound culture from 01/30 grew Streptococcus agalaciae. Blood Cx on 01/30 grew strep agalactiae, repeat cx on 02/01 came positive. Repeat blood cultures NGTD. Continue penicillin G. Per ID, To be discharged on ceftriaxone for easement of administration IDDM Hypoglycemia Insulin basal with correctional. Insulin dosing adjusted Hypoglycemia protocol Inpatient glucose target 140-180 Elevated troponin Elevated liver transaminases; shock liver Troponin 708 >> 2278 >> 721. Likely demand ischemia from sepsis. Chest pain-free He was evaluated by cardiology, was on heparin gtt now discontinued. Elevated LFTs likely from shock, LFTs improved. DOMENICO on chronic kidney disease DOMENICO without ATN Anion gap metabolic acidosis Baseline Cr around 1 Cr peaked at 3.06, now 1.50. He is nonoliguric, holding lisinopril. Renal ultrasound with no hydronephrosis, evidence of urinary retention. Evaluated by nephrology, continue to monitor. Urinary retention Bladder scan every 6 hours, already had straight cath x 3. Will insert Brenner if continues retaining then outpatient follow-up with urology. Flomax CAD status post CABG Atrial fibrillation When presented was in RVR, now rate controlled. Continue home aspirin, statin, beta-julia, Eliquis Holding home lisinopril due to soft BP, resume when able* Acute on chronic anemia Hemoglobin baseline 9-10. Currently 7-8. Positive Hemoccult. Had colonoscopy 10 years ago, positive for hemorrhoids. GI evaluated the patient,; in the absence of evidence of GI bleed, GI deferred endoscopy, okay to resume Eliquis. Continue PPI Mood disorder Lexapro. Ulcerative keratitis Fluconazole for 2 weeks. Holding statin while on fluconazole. Resolved acute medical issues Acute encephalopathy, resolved Septic Shock, resolved Discharge Planning Patient Medically Ready for Discharge: no Patient requires continued hospitalization due to: SHAHAB, ongoing IV antibiotic for bacteremia. Expected Date of Discharge: 02/05- 02/06. Expected Discharge Location: Home Quality Measures DVT Prophylaxis: SCD. Brenner Catheter: Yes. Code Status Full Code - Unverified Primary Contact Information Subjective Patient examined at bedside. Denies any complaints. Objective BP 138/87 Pulse 75 Temp 99 F (37.2 C) (Oral) Resp 16 Ht 5' 7 Wt 97.7 kg (215 lb 6.2 oz) SpO2 94% BMI 33.73 kg/m Physical Examination General Appearance: Supine in bed, awake and alert, no acute distress. Family members present. He is [place]. HEENT: Head- normocephalic; Eyes- EOMI, sclera anicteric; Throat- mucous membranes dry. Cardiovascular: regular rate and rhythm; normal S1, S2; no murmurs, rubs, clicks or gallops; peripheral edema 1+, LUE is improved post I&D, wound is clean and covered, no erythema or edema, movesfingers without discomfort. Respiratory: lungs clear to auscultation; without wheezes, rales or rhonchi; on room air Abdomen: Full and soft, positive bowel sounds, no G/R, Brenner in situ. Neurological: oriented x 3; normal speech; no focal findings or movement disorder noted Musculoskeletal: no significant deformity or tenderness to palpation Skin: normal coloration, warm and dry. Psych: normal mood and affect, no agitation. * Chidi Murillo, VIDEO SYSTEM REPAIRER - 02/07/2025 2:17 PM EDT Physical Therapy PHYSICAL THERAPY TREATMENT NOTE Skilled Therapy Needs After Discharge Are form setter steel pan forms Therapy Services Needed After Discharge: Yes Intensity of form setter steel pan forms Therapy: 5 to 7 days per week Anticipated Duration of form setter steel pan forms Therapy: Duration 7 - 10 days Rehab Potential: Good Outcomes Measures Prior Function - Basic Mobility Raw Score: 24 Points Prior Function - Basic Mobility % Impaired: 0% AM-PAC Basic Mobility Raw Score: 11 Points AM-PAC Basic Mobility % Impaired: 66.76% Activity Tolerance Activity Tolerance: (pt on RA. No changes in VS during transfers or gait) Therapy Precautions General Rehab Precautions: Fall risk Balance Sitting Balance - Static: Minimal assist Standing Balance - Static: Moderate assist Dry Plasterer Helper - Standing Static: wheeled walker Bed Mobility Supine to Sit: Moderate assist, Minimal assist Skilled Intervention Provided: facilitation, verbal cues, tactile cues, monitoring patient vital signs at rest/during/after activity, monitoring patient response with positional changes, monitoring patient response with activity For: sequencing of movement Transfers Sit to Stand: Moderate assist, Minimal assist Bed to Chair: Moderate assist, Minimal assist Dry Plasterer Helper: wheeled walker Skilled Intervention Provided: verbal cues, tactile cues, facilitation, monitoring patient responsewith activity, monitoring patient response with positional changes, monitoring patient vital signs at rest/during/after activity For: efficient movement, midline orientation, necessary precautions Gait/Locomotion Gait Assistance: Moderate assist Assistive Device: wheeled walker Distance: 50 Feet Pattern: step to, R decreased step length, L decreased step length, decreased amie (steps per minute) Gait Loss(es) of Balance: intermittent Environment/Terrain: open/community environment, multiple distractions Skilled Intervention Provided: verbal cues, tactile cues, facilitation, monitoring patient responsewith activity For: efficient movement, gait sequence, gait technique, midline orientation, necessary precautions Home Living Obtained Home Living and PLOF info from: Review of patient s medical record Lives With: Significant other Type of Home: Condo Home Layout: One level Rails to enter home: None Number of stairs to enter home: 1 Bathroom Shower/Tub: Walk-in shower Bathroom Toilet: Raised Bathroom Equipment: Grab bars in shower, Grab bars around toilet, Shower chair Bathroom Accessibility: Accessible via walker Mobility Equipment: Cane ADL Equipment: Political Reporter Prior Level of Function Level of [place] - Transfers/Ambulation/Mobility: Independent with community ambulation (no AD) Level of [place] - ADLs: Independent (Sometimes assist for hair combing.) Level of [place] - Homemaking: (S.O. did cooking and laundry tasks.) Driving: Patient drives Vocational: Retired For complete objective data, detailed plan of care and patient education refer to: PT Evaluation flowsheet, PT Evaluation and Treatment flowsheet, PT Treatment flowsheet, patient Plan of Care, Plan of Care progress note, and Patient Education. This note stands as the current Discharge Summary upon patient discharge from the hospital or completion of Physical Therapy Plan of Care. Cosigned by Ranjan Jimenez PT at 02/08/2025 10:20 AM EDT * Kunal Norman MD - 02/07/2025 1:35 PM EDT Patient Name: Andrew Arnold Admit Date: [id number] MR #: [id number] : 1945 Physicians: Vivien Foreman MD (Family); No ref. provider found (Referring) Assessment: Patient with 1. Septic shock, 2. Suspicion for pneumonia, 3. Respiratory failure, 4. Leukocytosis. 5. Left upper extremity cellulitis/fasciitis 6. Bacteremia with Streptococcus agalactia 7. Liver dysfunction, improving Plan. Continue patient on current therapy Status post discontinue IV clindamycin Patient on IV penicillin G, okay to switch to IV ceftriaxone on discharge. Patient status post DC IV Zosyn. Status post DC IV vancomycin DC IV vancomycin if negative MRSA. Keep a close eye on the wound area and also on the kidney function I appreciate orthopedic evaluation, status post I&D. I reviewed labs. I reviewed SHAHAB, with Difficulty is started this noted, ejection fraction of 55 to 60%, bioprosthetic valve is seen in position leaflets appear thickened, no evidence of vegetation aortic root abscessdegenerative mitral valve changes mild mitral regurgitation overall no definite evidence of vegetation, however cannot rule out underlying infective process affecting the bioprosthetic valve given the clinical picture with bacteremia. Reviewed blood culture with Streptococcus agalactiae in 2 sets of blood culture. I reviewed repeat blood cultures with no growth. I reviewed urinalysis with large blood, trace leuk esterase, WBC 180 with rare bacteria. Reviewed CT of the pulmonary artery, with groundglass opacity of the upper lobe suspicious for atypical inflammatory infectious process, I reviewed chest x-ray with with borderline cardiomegaly I reviewed echocardiogram, with ejection fraction of 43%, with post aortic valve replacement noted bioprosthetic valve. Cannot exclude mobile density on the leaflets due to image quality. I reviewed Renal ultrasound with no hydronephrosis, bilateral renal cysts and diffuse bladder wall thickening. Reviewed x-ray of the left wrist, with degenerative disease and deformity noted. I reviewed CT of the left upper extremity, with moderate amount of diffuse soft tissue swellings,May be secondary to cellulitis, no CT evidence of septic arthritis, severe degenerative changes and chronic avascular necrosis of the lunate Continue hydration and Patient off pressors Will continue to follow with you. Reviewed the CRP of 311. Aspiration precaution recommended. I reviewed abdominal ultrasound, with cholelithiasis without cholecystitis. Get chest x-ray for evaluation. On discharge: Patient will continue with IV antibiotics for total of 3 to 4 weeks. For ease of administration patient will be discharged on IV ceftriaxone. Subjective: No reported new symptoms today. No fever or chills. Tmax of 99.6. Saturating 100% on room air. Patient did not complain of left wrist pain. However complain of shortness of breath and cough. Family member at the bedside. Patient eating lunch. Exam: PACU Vitals 02/07/25 1116 BP: 107/68 Pulse: 85 Resp: (!) 20 Temp: 98.5 F (36.9 C) SpO2: Allergies: Pioglitazone Current Medications[1] PMH/PSH/SH/FH reviewed, no change : Review of Systems: All systems were reviewed no change: Medications Reviewed. Allergies: Pioglitazone Chart Reviewed. Exam Findings: HEENT: Atraumatic/Pupils equal & reactive Neck: Supple, no rigidity ENT: No oral candidiasis Chest: Lungs clear bilaterally, no wheezing, or rales CVS: Normal S1 & S2+, Abdomen: Normal symmetry, Soft/non-tender. Benign, BS+ Extremities: No Deformities, wrist area dressed status post I&D. No drainage and scabbed area. Skin: Intact & No Rashes, or excoriations Musculoskeletal: No joint swelling, non tender PLATFORM SUPERVISOR: Awake, and Ox3, Wound: Left wrist area dressed, status post I&D. Brenner Catheter: Yes IV Access: Yes I reviewed Medications. I reviewed Labs. US Abdomen Limited Study Final Result 1. Cholelithiasis without cholecystitis. 2. Hepatic steatosis. No focal liver lesion identified. Workstation ID: [id number] US Renal and Bladder Final Result Question borderline mild increased renal parenchymal echogenicity, can be seen in the setting of medical renal disease. No hydronephrosis. Bilateral renal cortical cysts. Diffuse bladder wall thickening. Bladder volume of 568 mL. Workstation ID: [id number] CT Upper Extremity Left Soft Tissue Without Contrast Final Result 1. There appears to be a moderate amount of diffuse soft tissue swelling along the dorsal aspect ofthe forearm and wrist extending into the hand to the level of the metacarpals. This may be secondary to a cellulitis, but this is nonspecific. 2. No CT evidence of a septic arthritis is seen. 3. 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 4. There are severe degenerative changes at the radiolunate articulation and there are CT findings compatible with the sequela of chronic avascular necrosis of the lunate. 5. Atherosclerotic vascular disease. Workstation ID: [id number] Echocardiogram Complete Final Result CT Pulmonary Arteries Final Result No evidence for acute pulmonary embolism. Ground-glass airspace opacities of the upper lobes suspicious for atypical inflammatory or infectious process. Reflux of contrast into the hepatic veins suggesting CHF. Workstation ID: [id number] XR Chest 1 View Final Result 1. Borderline cardiomegaly and stable elevation of the right hemidiaphragm. 2. Chronic changes noted bilaterally. Workstation ID: [id number] XR Chest 1 View (Results Pending) Laboratory and Additional Data Reviewed: Laboratory 02/07/25 1:35 PM Microbiology 02/07/25 1:35 PM Radiology 02/07/25 1:35 PM Medications 02/07/25 1:35 PM Lab Results Component Value Date WBC 14.58 (H) 02/07/2025 HGB 7.6 (L) 02/07/2025 HCT 24.3 (L) 02/07/2025 MCV 85.0 02/07/2025 PLT 303 02/07/2025 Lab Results Component Value Date GLUCOSE 56 (L) 02/07/2025 CALCIUM 8.5 02/07/2025 NA 134 (L) 02/07/2025 K 4.1 02/07/2025 CL 98 02/07/2025 BUN 13 02/07/2025 CREATININE 1.17 02/07/2025 Problem List Items Addressed This Visit None Visit Diagnoses Septic shock (HCC) - Primary Relevant Medications piperacillin-tazobactam (ZOSYN) IVPB 4.5 g (premix) (Completed) penicillin G potassium 3 million unit/50 mL IVPB 3 Million Units cefTRIAXone IV (Outpatient Therapy) Other Relevant Orders OPAT Home Care Labs and Line Removal Shortness of breath Elevated troponin DKA (diabetic ketoacidosis) (HCC) Relevant Medications insulin regular (Humulin R, Novolin R) injection 20 Units (Completed) insulin lispro (AdmeLOG,HumaLOG) injection 0-30 Units insulin glargine (LANTUS) injection 10 Units (Completed) insulin glargine (LANTUS) injection 15 Units (Start on 02/08/2025 9:00 AM) insulin lispro (AdmeLOG,HumaLOG) injection 0-15 Units (Start on 02/07/2025 9:00 PM) Anemia of chronic disease I have taken time to review patient's information and having discussions with appropriate care teams, I appreciate seeing your patient, will continue to follow with you, and adjust with more information. Medical Decision Making: High This note is created with the assistance of a speech-recognition program. While intending to generate a document that actually reflects the content of the visit, the document can still have some errors including those of syntax and sound a- like substitutions which may escape proofreading. In such instances, actual meaning can be extrapolated by contextual derivation. [1] Current Facility-Administered Medications: apixaban (ELIQUIS) tablet 5 mg, 5 mg, Oral, BID, Kelly Burton MD, 5 mg at 02/07/25 0824 aspirin EC tablet 81 mg, 81 mg, Oral, Daily, Oren Mireles DO, 81 mg at 02/07/25 0824 [Held by provider] bumetanide (BUMEX) injection 1 mg, 1 mg, Intravenous, Daily, Gina Reyna MD dextrose 5 % infusion, 50 mL/hr, Intravenous, Continuous, Cindy Herrera, EXCELLENCE MANAGER, Last Rate: 50 mL/hr at 02/07/25 0617, 50 mL/hr at 02/07/25 0617 escitalopram oxalate (LEXAPRO) tablet 10 mg, 10 mg, Oral, Nightly, Kelly Burton MD, 10 mg at 01/29/25 0101 [START ON 02/08/2025] insulin glargine (LANTUS) injection 15 Units, 15 Units, Subcutaneous, Daily, Kelly Burton MD insulin lispro (AdmeLOG,HumaLOG) injection 0-15 Units, 0-15 Units, Subcutaneous, at bedtime ANDNotify physician, , , Until Discontinued, Kelly Burton MD insulin lispro (AdmeLOG,HumaLOG) injection 0-30 Units, 0-30 Units, Subcutaneous, TID AC, Kelly Burton MD, 4 Units at 02/06/25 1135 [Held by provider] lisinopriL (PRINIVIL,ZESTRIL) tablet 5 mg, 5 mg, Oral, Daily, Oren Mireles DO melatonin tablet 3 mg, 3 mg, Oral, Nightly PRN, Noemi Andrade MD, 3 mg at 02/06/25 0149 metoprolol succinate (TOPROL-XL) 24 hr tablet 12.5 mg, 12.5 mg, Oral, Daily, Kelly Burton MD, 12.5mg at 02/07/25 0824 naloxone (NARCAN) injection 0.1 mg, 0.1 mg, Intravenous, PRN AND Notify physician, , , Until Discontinued AND naloxone (NARCAN) injection 0.4 mg, 0.4 mg, Intravenous, PRN, Noemi Andrade MD nystatin (MYCOSTATIN) 100,000 unit/mL suspension 500,000 Units, 500,000 Units, Oral, 4x daily, Kelly Burton MD, 500,000 Units at 02/07/25 0825 ondansetron (ZOFRAN) injection 4 mg, 4 mg, Intravenous, Q6H PRN, Dominga Muñiz CNP, 4 mg at01/29/25 1538 oxyCODONE (ROXICODONE) immediate release tablet 5 mg, 5 mg, Oral, Q4H PRN, Noemi Andrade MD, 5 mg at 02/05/25 2200 pantoprazole (PROTONIX) EC tablet 40 mg, 40 mg, Oral, BID, Noemi Andrade MD, 40 mg at 02/07/25 0824 penicillin G potassium 3 million unit/50 mL IVPB 3 Million Units, 3 Million Units, Intravenous, Q4H, Dominga Muñiz CNP, Last Rate: 200 mL/hr at 02/07/25 1324, 3 Million Units at 02/07/25 1324 polyethylene glycol (MIRALAX) powder 17 g, 17 g, Oral, BID PRN, Kelly Burton MD, 17 g at 02/06/25 1332 senna-docusate (SENNA-S) 8.6-50 mg per tablet 1 tablet, 1 tablet, Oral, BID, Oren Mireles DO, 1 tablet at 02/07/25 0824 [Held by provider] simvastatin (ZOCOR) tablet 40 mg, 40 mg, Oral, at bedtime, Kelly Burton MD, 40 mg at 01/31/25 2040 Saline lock IV, , , Continuous AND sodium chloride (PF) (NS) flush 5 mL, 5 mL, Intravenous, PRNAND sodium chloride (PF) (NS) flush 5 mL, 5 mL, Intravenous, Q8H TEREZA, 5 mL at 02/07/25 1325 AND sodium chloride 0.9% (NS), 0-150 mL/hr, Intravenous, PRN, Oren Mireles DO, Last Rate:50 mL/hr at 02/04/25 0506, 50 mL/hr at 02/04/25 0506 tamsulosin (FLOMAX) 24 hr capsule 0.4 mg, 0.4 mg, Oral, After evening meal, Kelly Burton MD * Kelly Burton MD - 02/07/2025 8:21 AM EDT [facility] PROGRESS NOTE Patient Name: Andrew Arnold : 1945 Assessment and Plan Andrew Arnold is a 79 y.o. male patient of Vivien Foreman MD with history of CAD s/p CABG, atrial fibrillation on Eliquis, DM II, and mood disorder who presented to [facility] on01/28/2025 with tachycardia and generalized malaise which started few hours after an outpatient lefthand abscess drainage. 02/07: continue Eliquis and aspirin, hemoglobin stable. Has dysphagia, start fluconazole for esophageal candidiasis. Continue to hold statins while on Azoles, continue SSRIs. Diuresis, PATRICIA inhibitor to be resumed later. Hypoglycemic this morning, change Lantus from 25 twice daily to 15 daily. Continue D5W for now, will stop after blood sugar maintains between 140-180. Urinary retention; failed voiding trial, started Flomax, bladder scan every 6 hours, if continues to retain we will insert a Brenner then to follow-up outpatient with urology for exchange. Left upper extremity cellulitis/abscess Group B strep bacteremia He is s/p left hand ganglion cyst I&D on 01/26. CT of the LUE on 01/27 showed moderate amount of diffuse soft tissue swelling along the dorsal aspect of the forearm and wrist extending into the hand to the level of the metacarpals. No evidence of septic arthritis. S/p irrigation and debridement of the wound. Wound culture from 01/30 grew Streptococcus agalaciae. Blood Cx on 01/30 grew strep agalactiae, repeat cx on 02/01 came positive. Repeat blood cultures NGTD. Continue penicillin G. Per ID, To be discharged on ceftriaxone for easement of administration IDDM Hypoglycemia Insulin basal with correctional. Insulin dosing adjusted Hypoglycemia protocol Inpatient glucose target 140-180 Elevated troponin Elevated liver transaminases; shock liver Troponin 708 >> 2278 >> 721. Likely demand ischemia from sepsis. Chest pain-free He was evaluated by cardiology, was on heparin gtt now discontinued. Elevated LFTs likely from shock, LFTs improved. DOMENICO on chronic kidney disease DOMENICO without ATN Anion gap metabolic acidosis Baseline Cr around 1 Cr peaked at 3.06, now 1.50. He is nonoliguric, holding lisinopril. Renal ultrasound with no hydronephrosis, evidence of urinary retention. Evaluated by nephrology, continue to monitor. Urinary retention Bladder scan every 6 hours, already had straight cath x 3. Will insert Brenner if continues retaining then outpatient follow-up with urology. Flomax CAD status post CABG Atrial fibrillation When presented was in RVR, now rate controlled. Continue home aspirin, statin, beta-julia, Eliquis Holding home lisinopril due to soft BP, resume when able* Acute on chronic anemia Hemoglobin baseline 9-10. Currently 7-8. Positive Hemoccult. Had colonoscopy 10 years ago, positive for hemorrhoids. GI evaluated the patient,; in the absence of evidence of GI bleed, GI deferred endoscopy, okay to resume Eliquis. Continue PPI Mood disorder Lexapro. Ulcerative keratitis Fluconazole for 2 weeks. Holding statin while on fluconazole. Resolved acute medical issues Acute encephalopathy, resolved Septic Shock, resolved Discharge Planning Patient Medically Ready for Discharge: no Patient requires continued hospitalization due to: SHAHAB, ongoing IV antibiotic for bacteremia. Expected Date of Discharge: 02/05- 02/06. Expected Discharge Location: Home Quality Measures DVT Prophylaxis: SCD. Brenner Catheter: Yes. Code Status Full Code - Unverified Primary Contact Information Subjective Patient evaluated during rounds. Doing better today, endorsing dysphagia. Care plan discussed with patient, family at bedside. Objective BP 108/65 Pulse 84 Temp 98.1 F (36.7 C) (Oral) Resp 18 Ht 5' 7 Wt 98.7 kg (217 lb 9.5 oz) SpO2 95% BMI 34.08 kg/m Physical Examination General Appearance: Supine in bed, awake and alert, no acute distress. Family members present. He is [place]. HEENT: Head- normocephalic; Eyes- EOMI, sclera anicteric; Throat- mucous membranes dry. Cardiovascular: regular rate and rhythm; normal S1, S2; no murmurs, rubs, clicks or gallops; peripheral edema 1+, LUE is improved post I&D, wound is clean and covered, no erythema or edema, movesfingers without discomfort. Respiratory: lungs clear to auscultation; without wheezes, rales or rhonchi; on room air Abdomen: Full and soft, positive bowel sounds, no G/R, Brenner in situ. Neurological: oriented x 3; normal speech; no focal findings or movement disorder noted Musculoskeletal: no significant deformity or tenderness to palpation Skin: normal coloration, warm and dry. Psych: normal mood and affect, no agitation. * Kunal Norman MD - 02/06/2025 2:14 PM EDT Patient Name: Andrew Arnold Admit Date: [id number] MR #: [id number] : 1945 Physicians: Vivien Foreman MD (Family); No ref. provider found (Referring) Assessment: Patient with 1. Septic shock, 2. Suspicion for pneumonia, 3. Respiratory failure, 4. Leukocytosis. 5. Left upper extremity cellulitis/fasciitis 6. Bacteremia with Streptococcus agalactia 7. Liver dysfunction, improving Plan. Continue patient on current therapy Status post discontinue IV clindamycin Patient on IV penicillin G, okay to switch to IV ceftriaxone on discharge. Patient status post DC IV Zosyn. Status post DC IV vancomycin DC IV vancomycin if negative MRSA. Keep a close eye on the wound area and also on the kidney function I appreciate orthopedic evaluation, status post I&D. I reviewed labs. I reviewed SHAHAB, with Difficulty is started this noted, ejection fraction of 55 to 60%, bioprosthetic valve is seen in position leaflets appear thickened, no evidence of vegetation aortic root abscessdegenerative mitral valve changes mild mitral regurgitation overall no definite evidence of vegetation, however cannot rule out underlying infective process affecting the bioprosthetic valve given the clinical picture with bacteremia. Reviewed blood culture with Streptococcus agalactiae in 2 sets of blood culture. I reviewed repeat blood cultures with no growth. I reviewed urinalysis with large blood, trace leuk esterase, WBC 180 with rare bacteria. Reviewed CT of the pulmonary artery, with groundglass opacity of the upper lobe suspicious for atypical inflammatory infectious process, I reviewed chest x-ray with with borderline cardiomegaly I reviewed echocardiogram, with ejection fraction of 43%, with post aortic valve replacement noted bioprosthetic valve. Cannot exclude mobile density on the leaflets due to image quality. I reviewed Renal ultrasound with no hydronephrosis, bilateral renal cysts and diffuse bladder wall thickening. Reviewed x-ray of the left wrist, with degenerative disease and deformity noted. I reviewed CT of the left upper extremity, with moderate amount of diffuse soft tissue swellings,May be secondary to cellulitis, no CT evidence of septic arthritis, severe degenerative changes and chronic avascular necrosis of the lunate Continue hydration and Patient off pressors Will continue to follow with you. Reviewed the CRP of 311. Aspiration precaution recommended. I reviewed abdominal ultrasound, with cholelithiasis without cholecystitis. On discharge: Patient will continue with IV antibiotics for total of 3 to 4 weeks. For ease of administration patient will be discharged on IV ceftriaxone. Subjective: Today patient reevaluated, with no new symptoms, no fever. Tmax of 99.5. Saturating 99%on 2 L on nasal cannula.No reported fever or chills. Left wrist area stable and area dressed. Patient hide of as needed. Family members at the bedside. Exam: PACU Vitals 02/06/25 1128 BP: 115/73 Pulse: 67 Resp: 17 Temp: 98.9 F (37.2 C) SpO2: 95% Allergies: Pioglitazone Current Medications[1] PMH/PSH/SH/FH reviewed, no change : Review of Systems: All systems were reviewed no change: Medications Reviewed. Allergies: Pioglitazone Chart Reviewed. Exam Findings: HEENT: Atraumatic/Pupils equal & reactive Neck: Supple, no rigidity ENT: No oral candidiasis Chest: Lungs clear bilaterally, no wheezing, or rales CVS: Normal S1 & S2+, Abdomen: Normal symmetry, Soft/non-tender. Benign, BS+ Extremities: No Deformities, wrist area dressed status post I&D. No drainage and scabbed area. Skin: Intact & No Rashes, or excoriations Musculoskeletal: No joint swelling, non tender PLATFORM SUPERVISOR: Awake, and Ox3, Wound: Left wrist area dressed, status post I&D. Brenner Catheter: Yes IV Access: Yes I reviewed Medications. I reviewed Labs. US Abdomen Limited Study Final Result 1. Cholelithiasis without cholecystitis. 2. Hepatic steatosis. No focal liver lesion identified. Workstation ID: [id number] US Renal and Bladder Final Result Question borderline mild increased renal parenchymal echogenicity, can be seen in the setting of medical renal disease. No hydronephrosis. Bilateral renal cortical cysts. Diffuse bladder wall thickening. Bladder volume of 568 mL. Workstation ID: [id number] CT Upper Extremity Left Soft Tissue Without Contrast Final Result 1. There appears to be a moderate amount of diffuse soft tissue swelling along the dorsal aspect ofthe forearm and wrist extending into the hand to the level of the metacarpals. This may be secondary to a cellulitis, but this is nonspecific. 2. No CT evidence of a septic arthritis is seen. 3. 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 4. There are severe degenerative changes at the radiolunate articulation and there are CT findings compatible with the sequela of chronic avascular necrosis of the lunate. 5. Atherosclerotic vascular disease. Workstation ID: [id number] Echocardiogram Complete Final Result CT Pulmonary Arteries Final Result No evidence for acute pulmonary embolism. Ground-glass airspace opacities of the upper lobes suspicious for atypical inflammatory or infectious process. Reflux of contrast into the hepatic veins suggesting CHF. Workstation ID: [id number] XR Chest 1 View Final Result 1. Borderline cardiomegaly and stable elevation of the right hemidiaphragm. 2. Chronic changes noted bilaterally. Workstation ID: [id number] Laboratory and Additional Data Reviewed: Laboratory 02/06/25 2:14 PM Microbiology 02/06/25 2:14 PM Radiology 02/06/25 2:14 PM Medications 02/06/25 2:14 PM Lab Results Component Value Date WBC 14.44 (H) 02/06/2025 HGB 7.7 (L) 02/06/2025 HCT 24.4 (L) 02/06/2025 MCV 83.8 02/06/2025 PLT 267 02/06/2025 Lab Results Component Value Date GLUCOSE 84 02/06/2025 CALCIUM 8.3 (L) 02/06/2025 NA 131 (L) 02/06/2025 K 4.3 02/06/2025 CL 95 (L) 02/06/2025 BUN 18 02/06/2025 CREATININE 1.14 02/06/2025 Problem List Items Addressed This Visit None Visit Diagnoses Septic shock (HCC) - Primary Relevant Medications piperacillin-tazobactam (ZOSYN) IVPB 4.5 g (premix) (Completed) penicillin G potassium 3 million unit/50 mL IVPB 3 Million Units cefTRIAXone IV (Outpatient Therapy) Other Relevant Orders OPAT Home Care Labs and Line Removal Shortness of breath Elevated troponin DKA (diabetic ketoacidosis) (HCC) Relevant Medications insulin regular (Humulin R, Novolin R) injection 20 Units (Completed) insulin lispro (AdmeLOG,HumaLOG) injection 0-15 Units insulin lispro (AdmeLOG,HumaLOG) injection 0-30 Units insulin glargine (LANTUS) injection 10 Units (Completed) insulin glargine (LANTUS) injection 25 Units Anemia of chronic disease I have taken time to review patient's information and having discussions with appropriate care teams, I appreciate seeing your patient, will continue to follow with you, and adjust with more information. Medical Decision Making: High This note is created with the assistance of a speech-recognition program. While intending to generate a document that actually reflects the content of the visit, the document can still have some errors including those of syntax and sound a- like substitutions which may escape proofreading. In such instances, actual meaning can be extrapolated by contextual derivation. [1] Current Facility-Administered Medications: apixaban (ELIQUIS) tablet 5 mg, 5 mg, Oral, BID, Kelly Burton MD aspirin EC tablet 81 mg, 81 mg, Oral, Daily, Oren Mireles DO, 81 mg at 02/06/25 0833 [Held by provider] bumetanide (BUMEX) injection 1 mg, 1 mg, Intravenous, Daily, Gina Reyna MD dextrose 5 % infusion, 50 mL/hr, Intravenous, Continuous, Cindy Herrera, EXCELLENCE MANAGER, Stopped at 02/02/25 0800 [Held by provider] escitalopram oxalate (LEXAPRO) tablet 10 mg, 10 mg, Oral, Nightly, Oren Mireles DO, 10 mg at 01/29/25 0101 insulin glargine (LANTUS) injection 25 Units, 25 Units, Subcutaneous, BID, Noemi Andrade MD, 25 Units at 02/06/25 0836 insulin lispro (AdmeLOG,HumaLOG) injection 0-15 Units, 0-15 Units, Subcutaneous, at bedtime ANDNotify physician, , , Until Discontinued, Dominga Muñiz CNP insulin lispro (AdmeLOG,HumaLOG) injection 0-30 Units, 0-30 Units, Subcutaneous, TID AC, Dominga Muñiz CNP, 4 Units at 02/06/25 1135 [Held by provider] lisinopriL (PRINIVIL,ZESTRIL) tablet 5 mg, 5 mg, Oral, Daily, Oren Mireles, melatonin tablet 3 mg, 3 mg, Oral, Nightly PRN, Noemi Andrade MD, 3 mg at 02/06/25 0149 metoprolol succinate (TOPROL-XL) 24 hr tablet 12.5 mg, 12.5 mg, Oral, Daily, Kelly Burton MD, 12.5mg at 02/06/25 0833 naloxone (NARCAN) injection 0.1 mg, 0.1 mg, Intravenous, PRN AND Notify physician, , , Until Discontinued AND naloxone (NARCAN) injection 0.4 mg, 0.4 mg, Intravenous, PRN, Noemi Andrade MD nystatin (MYCOSTATIN) 100,000 unit/mL suspension 500,000 Units, 500,000 Units, Oral, 4x daily, Kelly Burton MD ondansetron (ZOFRAN) injection 4 mg, 4 mg, Intravenous, Q6H PRN, Dominga Muñiz CNP, 4 mg at01/29/25 1538 oxyCODONE (ROXICODONE) immediate release tablet 5 mg, 5 mg, Oral, Q4H PRN, Noemi Andrade MD, 5 mg at 02/05/25 2200 pantoprazole (PROTONIX) EC tablet 40 mg, 40 mg, Oral, BID, Noemi Andrade MD, 40 mg at 02/06/25 0833 penicillin G potassium 3 million unit/50 mL IVPB 3 Million Units, 3 Million Units, Intravenous, Q4H, Dominga Muñiz CNP, Last Rate: 200 mL/hr at 02/06/25 1351, 3 Million Units at 02/06/25 1351 polyethylene glycol (MIRALAX) powder 17 g, 17 g, Oral, BID PRN, Kelly Burton MD, 17 g at 02/06/25 1332 senna-docusate (SENNA-S) 8.6-50 mg per tablet 1 tablet, 1 tablet, Oral, BID, Kiza, Oren Sherylmukiza,DO, 1 tablet at 02/06/25 0832 [Held by provider] simvastatin (ZOCOR) tablet 40 mg, 40 mg, Oral, at bedtime, Kiza, Oren [place], DO, 40 mg at 01/31/25 2040 Saline lock IV, , , Continuous AND sodium chloride (PF) (NS) flush 5 mL, 5 mL, Intravenous, PRNAND sodium chloride (PF) (NS) flush 5 mL, 5 mL, Intravenous, Q8H TEREZA, 5 mL at 02/06/25 0509 AND sodium chloride 0.9% (NS), 0-150 mL/hr, Intravenous, PRN, Kiza, Oren Niwemukiza, DO, Last Rate:50 mL/hr at 02/04/25 0506, 50 mL/hr at 02/04/25 0506 * Chidi Murillo PTA - 02/06/2025 1:33 PM EDT Physical Therapy PHYSICAL THERAPY TREATMENT NOTE Skilled Therapy Needs After Discharge Are form setter steel pan forms Therapy Services Needed After Discharge: Yes Intensity of form setter steel pan forms Therapy: 5 to 7 days per week Anticipated Duration of form setter steel pan forms Therapy: Duration 7 - 10 days Rehab Potential: Good Outcomes Measures Prior Function - Basic Mobility Raw Score: 24 Points Prior Function - Basic Mobility % Impaired: 0% AM-PAC Basic Mobility Raw Score: 11 Points AM-PAC Basic Mobility % Impaired: 66.76% Activity Tolerance Activity Tolerance: (pt on 1L. No changes in VS during transfers or gait) Therapy Precautions General Rehab Precautions: Fall risk Balance Sitting Balance - Static: Minimal assist Standing Balance - Static: Moderate assist Dry Plasterer Helper - Standing Static: (none) Bed Mobility Supine to Sit: (pt in the bed upon arrival) Transfers Sit to Stand: Moderate assist, Minimal assist Dry Plasterer Helper: (none) Skilled Intervention Provided: verbal cues, tactile cues, monitoring patient response with activity, monitoring patient response with positional changes, monitoring patient vital signs at rest/during/after activity, patient education For: efficient movement, midline orientation, necessary precautions Gait/Locomotion Gait Assistance: Moderate assist Assistive Device: (none) Distance: 40 Feet Pattern: R decreased step length, L decreased step length, decreased amie (steps per minute) Gait Loss(es) of Balance: multidirectional, multiple Environment/Terrain: closed environment, minimal to no distractions, open/community environment, multiple distractions Skilled Intervention Provided: facilitation, monitoring patient response with activity, verbal cues, tactile cues For: efficient movement, gait sequence, gait technique Additional Treatment Details pt in the chair with all needs within reach and breakaway alarm on Home Living Obtained Home Living and PLOF info from: Review of patient s medical record Lives With: Significant other Type of Home: Condo Home Layout: One level Rails to enter home: None Number of stairs to enter home: 1 Bathroom Shower/Tub: Walk-in shower Bathroom Toilet: Raised Bathroom Equipment: Grab bars in shower, Grab bars around toilet, Shower chair Bathroom Accessibility: Accessible via walker Mobility Equipment: Cane ADL Equipment: Political Reporter Prior Level of Function Level of [place] - Transfers/Ambulation/Mobility: Independent with community ambulation (no AD) Level of [place] - ADLs: Independent (Sometimes assist for hair combing.) Level of [place] - Homemaking: (S.O. did cooking and laundry tasks.) Driving: Patient drives Vocational: Retired For complete objective data, detailed plan of care and patient education refer to: PT Evaluation flowsheet, PT Evaluation and Treatment flowsheet, PT Treatment flowsheet, patient Plan of Care, Plan of Care progress note, and Patient Education. This note stands as the current Discharge Summary upon patient discharge from the hospital or completion of Physical Therapy Plan of Care. Cosigned by Ranjan Jimenez PT at 02/07/2025 8:46 AM EDT * Elli Hanna RN - 02/06/2025 12:49 PM EDT Care Management Progress Note Date: 02/06/2025 Time: 12:49 PM Patient Name: Andrew Arnold Date of : 1945 Discharge Plan: Possible [facility] SNF (Swing bed) Discharging Transportation Plan: Ambulance needed Discharge Plan Status: Spoke with pt at the bedside this morning, he would like referral sent to [facility] swing bed, Jennifer KOTHARI notified. Per medical team pt will possibly be medically ready for discharge on Tuesday. Pt does not require a precert. CM will continue to follow. Assessment and Background Information: * Kelly Burton MD - 02/06/2025 10:07 AM EDT [facility] PROGRESS NOTE Patient Name: Andrew Arnold : 1945 Assessment and Plan Andrew Arnold is a 79 y.o. male patient of Vivien Foreman MD with history of CAD s/p CABG, atrial fibrillation on Eliquis, DM II, and mood disorder who presented to [facility] on01/28/2025 with tachycardia and generalized malaise which started few hours after an outpatient lefthand abscess drainage. Left upper extremity cellulitis/abscess Group B strep bacteremia He is s/p left hand ganglion cyst I&D on 01/26. CT of the LUE on 01/27 showed moderate amount of diffuse soft tissue swelling along the dorsal aspect of the forearm and wrist extending into the hand to the level of the metacarpals. No evidence of septic arthritis. S/p irrigation and debridement of the wound. Intact neurovascular bundle of the LUE. Wound culture from 01/30 grew Streptococcus agalaciae. Blood Cx on 01/30 grew strep agalactiae, repeat cx on 02/01 came positive. Repeat blood cultures NGTD. Continue penicillin G. Per ID. To be discharged on ceftriaxone for easement of administration Acute encephalopathy, resolved Septic Shock, resolved Sepsis was present on admission and felt to be due to soft tissue infection. He was in septic shock that required vasopressors Blood culture grew Streptococcus, likely source from the left hand.. Continue penicillin G, ID following. Mentation is now back to his baseline. SHAHAB negative for vegetation but poor quality, could not rule out endocarditis IDDM Had episodes of hypoglycemia requiring Lantus dose reduction. BG is improved. Decrease dose of Lantus from 30 twice daily to 25 twice daily. Ciara hold Lantus this a.m. due to n.p.o. status, restart after SHAHAB. Elevated troponin Transaminitis Troponin 708 >> 2278 >> 721. Likely demand ischemia from sepsis. Denies chest pain. He was evaluated by cardiology, was on heparin gtt now discontinued. Elevated LFTs likely from shock, LFTs improved. DOMENICO on chronic kidney disease DOMENICO without ATN Anion gap metabolic acidosis Baseline Cr around 1 Cr peaked at 3.06, now 1.50. He is nonoliguric, holding lisinopril. Renal ultrasound with no hydronephrosis, evidence of urinary retention. Evaluated by nephrology, continue to monitor. Hyperkalemia In the setting of DOMENICO with shock. K is improved to 4.3. Continue to monitor. Urinary retention Brenner catheter was placed on 01/30. He has good UOP. Voiding trial when more ambulatory. CAD status post CABG Atrial fibrillation with RVR Presented with A-fib with RVR to as high as 162. HR better controlled. Continue home aspirin, statin, beta-julia. Holding home lisinopril due to soft BP Eliquis on hold due to anemia Hemoccult positive. Anemia Interval drop in Hb from 10.8 on admission to 8.2. Component of blood loss from left hand I&D. However occult blood positive. Last colonoscopy was about 10 years ago with finding of medium sized diverticula and hemorrhoids. Eliquis is currently on hold. GI evaluation post SHAHAB. Monitor Hb closely. Mood disorder Restart Lexapro. Oral Candidiasis Nystatin Resolved acute medical issues Discharge Planning Patient Medically Ready for Discharge: no Patient requires continued hospitalization due to: SHAHAB, ongoing IV antibiotic for bacteremia. Expected Date of Discharge: 02/05- 02/06. Expected Discharge Location: Home Quality Measures DVT Prophylaxis: SCD. Brenner Catheter: Yes. Code Status Full Code - Unverified Primary Contact Information Subjective Patient examined at bedside. Feels better today. Pending placement. Objective BP (!) 147/65 Pulse 89 Temp 99.1 F (37.3 C) (Oral) Resp (!) 21 Ht 5' 7 Wt 98.7 kg (217 lb 9.5 oz) SpO2 99% BMI 34.08 kg/m Physical Examination General Appearance: Supine in bed, awake and alert, no acute distress. Family members present. He is BAD [place] BAND. HEENT: Head- normocephalic; Eyes- EOMI, sclera anicteric; Throat- mucous membranes dry. Cardiovascular: regular rate and rhythm; normal S1, S2; no murmurs, rubs, clicks or gallops; peripheral edema 1+, LUE is improved post I&D, wound is clean and covered, no erythema or edema, movesfingers without discomfort. Respiratory: lungs clear to auscultation; without wheezes, rales or rhonchi; on room air Abdomen: Full and soft, positive bowel sounds, no G/R, Brenner in situ. Neurological: oriented x 3; normal speech; no focal findings or movement disorder noted Musculoskeletal: no significant deformity or tenderness to palpation Skin: normal coloration, warm and dry. Psych: normal mood and affect, no agitation. * Kunal Norman MD - 02/05/2025 3:21 PM EDT Patient Name: Andrew Arnold Admit Date: [id number] MR #: [id number] : 1945 Physicians: Vivien Foreman MD (Family); No ref. provider found (Referring) Assessment: Patient with 1. Septic shock, 2. Suspicion for pneumonia, 3. Respiratory failure, 4. Leukocytosis. 5. Left upper extremity cellulitis/fasciitis 6. Bacteremia with Streptococcus agalactia 7. Liver dysfunction, improving Plan. Continue patient on current therapy Status post discontinue IV clindamycin Patient on IV penicillin G Patient status post DC IV Zosyn. Status post DC IV vancomycin DC IV vancomycin if negative MRSA. Keep a close eye on the wound area and also on the kidney function I appreciate orthopedic evaluation, status post I&D. I reviewed labs. I reviewed SHAHAB, with Difficulty is started this noted, ejection fraction of 55 to 60%, bioprosthetic valve is seen in position leaflets appear thickened, no evidence of vegetation aortic root abscessdegenerative mitral valve changes mild mitral regurgitation overall no definite evidence of vegetation, however cannot rule out underlying infective process affecting the bioprosthetic valve given the clinical picture with bacteremia. Reviewed blood culture with Streptococcus agalactiae in 2 sets of blood culture. I reviewed repeat blood cultures with no growth. I reviewed urinalysis with large blood, trace leuk esterase, WBC 180 with rare bacteria. Reviewed CT of the pulmonary artery, with groundglass opacity of the upper lobe suspicious for atypical inflammatory infectious process, I reviewed chest x-ray with with borderline cardiomegaly I reviewed echocardiogram, with ejection fraction of 43%, with post aortic valve replacement noted bioprosthetic valve. Cannot exclude mobile density on the leaflets due to image quality. I reviewed Renal ultrasound with no hydronephrosis, bilateral renal cysts and diffuse bladder wall thickening. Reviewed x-ray of the left wrist, with degenerative disease and deformity noted. I reviewed CT of the left upper extremity, with moderate amount of diffuse soft tissue swellings,May be secondary to cellulitis, no CT evidence of septic arthritis, severe degenerative changes and chronic avascular necrosis of the lunate Continue hydration and Patient off pressors Will continue to follow with you. Reviewed the CRP of 311. Aspiration precaution recommended. I reviewed abdominal ultrasound, with cholelithiasis without cholecystitis. On discharge: Patient will continue with IV antibiotics for total of 3 to 4 weeks. For ease of administration patient will be discharged on IV ceftriaxone. Subjective: Patient lying quietly on the bed mattress. Family members at bedside. No fever no chills.Still hard of hearing. Right wrist area dressed. Swelling improving. Patient status post SHAHAB. Tmaxof 99.4. Saturating at 100% on 1 L. Exam: PACU Vitals 02/05/25 1428 BP: Pulse: Resp: (!) 19 Temp: SpO2: Allergies: Pioglitazone Current Medications[1] PMH/PSH/SH/FH reviewed, no change : Review of Systems: All systems were reviewed no change: Medications Reviewed. Allergies: Pioglitazone Chart Reviewed. Exam Findings: HEENT: Atraumatic/Pupils equal & reactive Neck: Supple, no rigidity ENT: No oral candidiasis Chest: Lungs clear bilaterally, no wheezing, or rales CVS: Normal S1 & S2+, Abdomen: Normal symmetry, Soft/non-tender. Benign, BS+ Extremities: No Deformities, wrist area dressed status post I&D. No drainage and scabbed area. Skin: Intact & No Rashes, or excoriations Musculoskeletal: No joint swelling, non tender PLATFORM SUPERVISOR: Awake, and Ox3, Wound: Left wrist area dressed, status post I&D. Brenner Catheter: Yes IV Access: Yes I reviewed Medications. I reviewed Labs. US Abdomen Limited Study Final Result 1. Cholelithiasis without cholecystitis. 2. Hepatic steatosis. No focal liver lesion identified. Workstation ID: [id number] US Renal and Bladder Final Result Question borderline mild increased renal parenchymal echogenicity, can be seen in the setting of medical renal disease. No hydronephrosis. Bilateral renal cortical cysts. Diffuse bladder wall thickening. Bladder volume of 568 mL. Workstation ID: [id number] CT Upper Extremity Left Soft Tissue Without Contrast Final Result 1. There appears to be a moderate amount of diffuse soft tissue swelling along the dorsal aspect ofthe forearm and wrist extending into the hand to the level of the metacarpals. This may be secondary to a cellulitis, but this is nonspecific. 2. No CT evidence of a septic arthritis is seen. 3. 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 4. There are severe degenerative changes at the radiolunate articulation and there are CT findings compatible with the sequela of chronic avascular necrosis of the lunate. 5. Atherosclerotic vascular disease. Workstation ID: [id number] Echocardiogram Complete Final Result CT Pulmonary Arteries Final Result No evidence for acute pulmonary embolism. Ground-glass airspace opacities of the upper lobes suspicious for atypical inflammatory or infectious process. Reflux of contrast into the hepatic veins suggesting CHF. Workstation ID: [id number] XR Chest 1 View Final Result 1. Borderline cardiomegaly and stable elevation of the right hemidiaphragm. 2. Chronic changes noted bilaterally. Workstation ID: [id number] Laboratory and Additional Data Reviewed: Laboratory 02/05/25 3:21 PM Microbiology 02/05/25 3:21 PM Radiology 02/05/25 3:21 PM Medications 02/05/25 3:21 PM Lab Results Component Value Date WBC 15.98 (H) 02/05/2025 HGB 7.7 (L) 02/05/2025 HCT 24.4 (L) 02/05/2025 MCV 84.7 02/05/2025 PLT 228 02/05/2025 Lab Results Component Value Date GLUCOSE 136 (H) 02/05/2025 CALCIUM 8.5 02/05/2025 NA 133 (L) 02/05/2025 K 4.2 02/05/2025 CL 95 (L) 02/05/2025 BUN 21 02/05/2025 CREATININE 1.24 02/05/2025 Problem List Items Addressed This Visit None Visit Diagnoses Septic shock (HCC) - Primary Relevant Medications piperacillin-tazobactam (ZOSYN) IVPB 4.5 g (premix) (Completed) penicillin G potassium 3 million unit/50 mL IVPB 3 Million Units Shortness of breath Elevated troponin DKA (diabetic ketoacidosis) (HCC) Relevant Medications insulin regular (Humulin R, Novolin R) injection 20 Units (Completed) insulin lispro (AdmeLOG,HumaLOG) injection 0-15 Units insulin lispro (AdmeLOG,HumaLOG) injection 0-30 Units insulin glargine (LANTUS) injection 10 Units (Completed) insulin glargine (LANTUS) injection 25 Units Anemia of chronic disease I have taken time to review patient's information and having discussions with appropriate care teams, I appreciate seeing your patient, will continue to follow with you, and adjust with more information. Medical Decision Making: High This note is created with the assistance of a speech-recognition program. While intending to generate a document that actually reflects the content of the visit, the document can still have some errors including those of syntax and sound a- like substitutions which may escape proofreading. In such instances, actual meaning can be extrapolated by contextual derivation. [1] Current Facility-Administered Medications: aspirin EC tablet 81 mg, 81 mg, Oral, Daily, Oren Mireles DO, 81 mg at 02/05/25 0843 [Held by provider] bumetanide (BUMEX) injection 1 mg, 1 mg, Intravenous, Daily, Gina Reyna MD dextrose 5 % infusion, 50 mL/hr, Intravenous, Continuous, Cindy Herrera CNP, Stopped at 02/02/25 0800 [Held by provider] escitalopram oxalate (LEXAPRO) tablet 10 mg, 10 mg, Oral, Nightly, Oren Mireles DO, 10 mg at 01/29/25 0101 [Held by provider] heparin (porcine) 25,000 unit/250 mL(100 unit/mL) in D5W infusion, 0-70 Units/kg/hr, Intravenous, Continuous, Noemi Andrade MD, Stopped at 02/01/25 1712 heparin bolus from bag 0-5,000 Units, 0-5,000 Units, Intravenous, Continuous PRN, Nevin Matthew MD, 3,000 Units at 01/31/25 0613 insulin glargine (LANTUS) injection 25 Units, 25 Units, Subcutaneous, BID, Noemi Andrade MD, 25 Units at 02/05/25 0851 insulin lispro (AdmeLOG,HumaLOG) injection 0-15 Units, 0-15 Units, Subcutaneous, at bedtime ANDNotify physician, , , Until Discontinued, Dominga Muñiz CNP insulin lispro (AdmeLOG,HumaLOG) injection 0-30 Units, 0-30 Units, Subcutaneous, TID AC, Dominga Muñiz CNP, 4 Units at 02/05/25 1207 [Held by provider] lisinopriL (PRINIVIL,ZESTRIL) tablet 5 mg, 5 mg, Oral, Daily, Oren Mireles DO melatonin tablet 3 mg, 3 mg, Oral, Nightly PRN, Noemi Andrade MD, 3 mg at 02/04/25 2108 [START ON 02/06/2025] metoprolol succinate (TOPROL-XL) 24 hr tablet 12.5 mg, 12.5 mg, Oral, Daily, Kelly Burton MD naloxone (NARCAN) injection 0.1 mg, 0.1 mg, Intravenous, PRN AND Notify physician, , , Until Discontinued AND naloxone (NARCAN) injection 0.4 mg, 0.4 mg, Intravenous, PRN, Noemi Andrade MD ondansetron (ZOFRAN) injection 4 mg, 4 mg, Intravenous, Q6H PRN, Dominga Muñiz CNP, 4 mg at01/29/25 1538 oxyCODONE (ROXICODONE) immediate release tablet 5 mg, 5 mg, Oral, Q4H PRN, Noemi Andrade MD, 5 mg at 02/05/25 1428 pantoprazole (PROTONIX) EC tablet 40 mg, 40 mg, Oral, BID, Noemi Andrade MD, 40 mg at 02/05/25 0844 penicillin G potassium 3 million unit/50 mL IVPB 3 Million Units, 3 Million Units, Intravenous, Q4H, Dominga Muñiz CNP, Last Rate: 200 mL/hr at 02/05/25 1314, 3 Million Units at 02/05/25 1314 senna-docusate (SENNA-S) 8.6-50 mg per tablet 1 tablet, 1 tablet, Oral, BID, Kiza, Oren Niwemukiza,DO, 1 tablet at 02/05/25 0843 [Held by provider] simvastatin (ZOCOR) tablet 40 mg, 40 mg, Oral, at bedtime, Kiza, Oren Niwemukiza, DO, 40 mg at 01/31/25 2040 Saline lock IV, , , Continuous AND sodium chloride (PF) (NS) flush 5 mL, 5 mL, Intravenous, PRNAND sodium chloride (PF) (NS) flush 5 mL, 5 mL, Intravenous, Q8H TEREZA, 5 mL at 02/05/25 1317 AND sodium chloride 0.9% (NS), 0-150 mL/hr, Intravenous, PRN, Kiza, Oren Niwemukiza, DO, Last Rate:50 mL/hr at 02/04/25 0506, 50 mL/hr at 02/04/25 0506 * Kelly Burton MD - 02/05/2025 11:34 AM EDT [facility] PROGRESS NOTE Patient Name: Andrew Arnold : 1945 Assessment and Plan Andrew Arnold is a 79 y.o. male patient of Vivien Foreman MD with history of CAD s/p CABG, atrial fibrillation on Eliquis, DM II, and mood disorder who presented to [facility] on01/28/2025 with tachycardia and generalized malaise which started few hours after an outpatient lefthand abscess drainage. Left upper extremity cellulitis/abscess Group B strep bacteremia He is s/p left hand ganglion cyst I&D on 01/26. CT of the LUE on 01/27 showed moderate amount of diffuse soft tissue swelling along the dorsal aspect of the forearm and wrist extending into the hand to the level of the metacarpals. No evidence of septic arthritis. S/p irrigation and debridement of the wound. Intact neurovascular bundle of the LUE. Wound culture from 01/30 grew Streptococcus agalaciae. Blood Cx on 01/30 grew strep agalactiae, repeat cx on 02/01 came positive. Repeat blood cultures NGTD. Continue penicillin G. Per ID Acute encephalopathy, resolved Septic Shock, resolved Sepsis was present on admission and felt to be due to soft tissue infection. He was in septic shock that required vasopressors Blood culture grew Streptococcus, likely source from the left hand.. Continue penicillin G, ID following. Mentation is now back to his baseline. SHAHAB negative for vegetation but poor quality, could not rule out endocarditis IDDM Had episodes of hypoglycemia requiring Lantus dose reduction. BG is improved. Decrease dose of Lantus from 30 twice daily to 25 twice daily. Ciara hold Lantus this a.m. due to n.p.o. status, restart after SHAHAB. Elevated troponin Transaminitis Troponin 708 >> 2278 >> 721. Likely demand ischemia from sepsis. Denies chest pain. He was evaluated by cardiology, was on heparin gtt now discontinued. Elevated LFTs likely from shock, LFTs improved. DOMENICO on chronic kidney disease Anion gap metabolic acidosis Baseline Cr around 1 Cr peaked at 3.06, now 1.50. He is nonoliguric, holding lisinopril. Renal ultrasound with no hydronephrosis, evidence of urinary retention. Evaluated by nephrology, continue to monitor. Hyperkalemia In the setting of DOMENICO with shock. K is improved to 4.3. Continue to monitor. Urinary retention Brenner catheter was placed on 01/30. He has good UOP. Voiding trial when more ambulatory. CAD status post CABG Atrial fibrillation with RVR Presented with A-fib with RVR to as high as 162. HR better controlled. Continue home aspirin, statin, beta-julia. Holding home lisinopril due to soft BP Eliquis on hold due to anemia Hemoccult positive. Anemia Interval drop in Hb from 10.8 on admission to 8.2. Component of blood loss from left hand I&D. However occult blood positive. Last colonoscopy was about 10 years ago with finding of medium sized diverticula and hemorrhoids. Eliquis is currently on hold. GI evaluation post SHAHAB. Monitor Hb closely. Mood disorder Restart Lexapro. Resolved acute medical issues Discharge Planning Patient Medically Ready for Discharge: no Patient requires continued hospitalization due to: SHAHAB, ongoing IV antibiotic for bacteremia. Expected Date of Discharge: 02/05- 02/06. Expected Discharge Location: Home Quality Measures DVT Prophylaxis: SCD. Brenner Catheter: Yes. Code Status Full Code - Unverified Primary Contact Information Subjective Patient examined during rounds. Feels tired after working with PT. Otherwise denies any complaints. Objective BP 107/62 Pulse 89 Temp 99.1 F (37.3 C) (Oral) Resp (!) 21 Ht 5' 7 Wt 99 kg (218 lb 4.1 oz) SpO2 97% BMI 34.18 kg/m Physical Examination General Appearance: Supine in bed, awake and alert, no acute distress. Family members present. He is BAD [place] BAND. HEENT: Head- normocephalic; Eyes- EOMI, sclera anicteric; Throat- mucous membranes dry. Cardiovascular: regular rate and rhythm; normal S1, S2; no murmurs, rubs, clicks or gallops; peripheral edema 1+, LUE is improved post I&D, wound is clean and covered, no erythema or edema, movesfingers without discomfort. Respiratory: lungs clear to auscultation; without wheezes, rales or rhonchi; on room air Abdomen: Full and soft, positive bowel sounds, no G/R, Brenner in situ. Neurological: oriented x 3; normal speech; no focal findings or movement disorder noted Musculoskeletal: no significant deformity or tenderness to palpation Skin: normal coloration, warm and dry. Psych: normal mood and affect, no agitation. * Elli Hanna RN - 02/05/2025 10:40 AM EDT Care Management Progress Note Date: 02/05/2025 Time: 1:15 PM Patient Name: Andrew Arnold Date of : 1945 Discharge Plan: Possible swing bed or SNF Discharging Transportation Plan: TBD Discharge Plan Status: Pt worked with PT this morning and was only able to walk 20 feet with moderate assist x 1. Discussed therapy rehab options with pt and pt's SO at the bedside. Educate both on [facility] and SNFs, pt inquired about [facility] and if there was a Swing bed closer to [place] where they live, educated on [facility] Swing bed, they would like to think about it and pt's girlfriend would like to discuss with pt's son this evening as well. CM will continueto follow. Assessment and Background Information: * Destiney Lora CNP - 02/05/2025 8:40 AM EDT DAILY PROGRESS NOTE Patient Name: Andrew Arnold MR #: [id number] Assessment/Plan: 79 y.o. male with history of CAD s/p CABG, Aortic vlave disease s/p AVR, afib on eliquis, HYPERTENSION, and oral cancer presenting with shock. GI consulted for further evaluation of anemia and hemoccult positive stool. Acute on chronic anemia- Baseline hemoglobin 12-13. Hemoglobin 11.7 on admit Hgb 7.7 (8.2) No reported signs of GIB overnight Eliquis held, PPI BID continues Tolerating regular cardiac diet SHAHAB yesterday was negative, cardiology has signed off No evidence of GI bleeding, can resume Eliquis when appropriate from medical standpoint GI will sign off, please call with concerns Interpretation of Testing: I personally reviewed the labs, notes, procedures Subjective: No acute concerns overnight, does not recall for sure if he moved his bowels yesterday but thinks he did, did not notice bloody or black stool. Denies nausea or abdominal pain Objective: Physical Examination: BP 107/62 Pulse 89 Temp 99.1 F (37.3 C) (Oral) Resp (!) 21 Ht 5' 7 Wt 99 kg (218 lb 4.1 oz) SpO2 97% BMI 34.18 kg/m General Appearance: Alert, well appearing, and in no acute distress. Cardiovascular: S1, S2 normal. Respiratory: Respirations unlabored Abdomen: Soft, non-tender, normal bowel sounds, non-distended, no masses or organomegaly appreciated. Neurological: Grossly normal motor and sensory exam. No focal deficits. Skin: Normal coloration and turgor. No rashes. Laboratory and Additional Data Reviewed: Reviewed 02/05/25 9:20 AM: Laboratory, Cardiology, Medications, and Transcriptions Please note: Portions of this chart may have been created with [employer] voice recognition software. Occasional wrong-word or sound-like substitutions may have occurred due to inherent limitations of the voice recognition software. Please read the chart carefully and recognize, using context, where the substitutions have occurred. * Franchesca Dior RN - 02/04/2025 8:52 PM EDT Deterioration Index score is 56, pt is slightly tachypneic 17-24 RR, and slightly hypotensive 99/56with an spo2 of 91-94%, nursing to continue to follow DI protocol and reach out to FAMILY RESOURCE MANAGEMENT SPECIALIST as needed for support. * Carla Callahan RN - 02/04/2025 4:51 PM EDT Deterioration Index score is 65 Rapid Response Note February 04, 2025 4:51 PM Rapid Response to evaluate Andrew Arnold for elevated DI score. The patient is sitting up in bed visiting with family. There are no signs of distress noted. RR is a high contributing factor. Current RR in now 20. No other acute concerns at this time. Primary RN to continue to follow DI score protocol. Carla Callahan RN * Kunal Norman MD - 02/04/2025 3:02 PM EDT Patient Name: Andrew Arnold Admit Date: [id number] MR #: [id number] : 1945 Physicians: Vivien Foreman MD (Family); No ref. provider found (Referring) Assessment: Patient with 1. Septic shock, 2. Suspicion for pneumonia, 3. Respiratory failure, 4. Leukocytosis. 5. Left upper extremity cellulitis/fasciitis 6. Bacteremia with Streptococcus agalactia 7. Liver dysfunction, improving Plan. Continue patient on current therapy Status post discontinue IV clindamycin Patient on IV penicillin G Patient status post DC IV Zosyn. Status post DC IV vancomycin DC IV vancomycin if negative MRSA. Keep a close eye on the wound area and also on the kidney function I appreciate orthopedic evaluation, status post I&D. Follow-up labs Patient scheduling for SHAHAB. Reviewed blood culture with Streptococcus agalactiae in 2 sets of blood culture. I reviewed repeat blood cultures with no growth. I reviewed urinalysis with large blood, trace leuk esterase, WBC 180 with rare bacteria. Reviewed CT of the pulmonary artery, with groundglass opacity of the upper lobe suspicious for atypical inflammatory infectious process, I reviewed chest x-ray with with borderline cardiomegaly I reviewed echocardiogram, with ejection fraction of 43%, with post aortic valve replacement noted bioprosthetic valve. Cannot exclude mobile density on the leaflets due to image quality. I reviewed Renal ultrasound with no hydronephrosis, bilateral renal cysts and diffuse bladder wall thickening. Reviewed x-ray of the left wrist, with degenerative disease and deformity noted. I reviewed CT of the left upper extremity, with moderate amount of diffuse soft tissue swellings,May be secondary to cellulitis, no CT evidence of septic arthritis, severe degenerative changes and chronic avascular necrosis of the lunate Continue hydration and Patient off pressors Will continue to follow with you. Reviewed the CRP of 311. Aspiration precaution recommended. I reviewed abdominal ultrasound, with cholelithiasis without cholecystitis. On discharge: To be determined, workup in progress. Subjective: Today patient reevaluated. With no new symptoms, no fever or chills reported. Tmax of 99.9. Saturating 90% on 2 L of nasal cannula. Family members at the bedside. Patient scheduling for SHAHAB. Exam: PACU Vitals 02/04/25 1410 BP: (!) 103/56 Pulse: 78 Resp: Temp: SpO2: Allergies: Pioglitazone Current Medications[1] PMH/PSH/SH/FH reviewed, no change : Review of Systems: All systems were reviewed no change: Medications Reviewed. Allergies: Pioglitazone Chart Reviewed. Exam Findings: HEENT: Atraumatic/Pupils equal & reactive Neck: Supple, no rigidity ENT: No oral candidiasis Chest: Lungs clear bilaterally, no wheezing, or rales CVS: Normal S1 & S2+, Abdomen: Normal symmetry, Soft/non-tender. Benign, BS+ Extremities: No Deformities, wrist area dressed status post I&D. No drainage and scabbed area. Skin: Intact & No Rashes, or excoriations Musculoskeletal: No joint swelling, non tender PLATFORM SUPERVISOR: Awake, and Ox3, Wound: Left wrist area dressed, status post I&D. Brenner Catheter: Yes IV Access: Yes I reviewed Medications. I reviewed Labs. US Abdomen Limited Study Final Result 1. Cholelithiasis without cholecystitis. 2. Hepatic steatosis. No focal liver lesion identified. Workstation ID: [id number] US Renal and Bladder Final Result Question borderline mild increased renal parenchymal echogenicity, can be seen in the setting of medical renal disease. No hydronephrosis. Bilateral renal cortical cysts. Diffuse bladder wall thickening. Bladder volume of 568 mL. Workstation ID: [id number] CT Upper Extremity Left Soft Tissue Without Contrast Final Result 1. There appears to be a moderate amount of diffuse soft tissue swelling along the dorsal aspect ofthe forearm and wrist extending into the hand to the level of the metacarpals. This may be secondary to a cellulitis, but this is nonspecific. 2. No CT evidence of a septic arthritis is seen. 3. 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 4. There are severe degenerative changes at the radiolunate articulation and there are CT findings compatible with the sequela of chronic avascular necrosis of the lunate. 5. Atherosclerotic vascular disease. Workstation ID: [id number] Echocardiogram Complete Final Result CT Pulmonary Arteries Final Result No evidence for acute pulmonary embolism. Ground-glass airspace opacities of the upper lobes suspicious for atypical inflammatory or infectious process. Reflux of contrast into the hepatic veins suggesting CHF. Workstation ID: [id number] XR Chest 1 View Final Result 1. Borderline cardiomegaly and stable elevation of the right hemidiaphragm. 2. Chronic changes noted bilaterally. Workstation ID: [id number] Laboratory and Additional Data Reviewed: Laboratory 02/04/25 3:02 PM Microbiology 02/04/25 3:02 PM Radiology 02/04/25 3:02 PM Medications 02/04/25 3:02 PM Lab Results Component Value Date WBC 14.49 (H) 02/04/2025 HGB 8.2 (L) 02/04/2025 HCT 25.8 (L) 02/04/2025 MCV 82.7 02/04/2025 PLT 211 02/04/2025 Lab Results Component Value Date GLUCOSE 104 (H) 02/04/2025 CALCIUM 8.5 02/04/2025 NA 133 (L) 02/04/2025 K 4.3 02/04/2025 CL 95 (L) 02/04/2025 BUN 30 (H) 02/04/2025 CREATININE 1.32 (H) 02/04/2025 Problem List Items Addressed This Visit None Visit Diagnoses Septic shock (HCC) - Primary Relevant Medications piperacillin-tazobactam (ZOSYN) IVPB 4.5 g (premix) (Completed) penicillin G potassium 3 million unit/50 mL IVPB 3 Million Units Shortness of breath Elevated troponin DKA (diabetic ketoacidosis) (HCC) Relevant Medications insulin regular (Humulin R, Novolin R) injection 20 Units (Completed) insulin lispro (AdmeLOG,HumaLOG) injection 0-15 Units insulin lispro (AdmeLOG,HumaLOG) injection 0-30 Units insulin glargine (LANTUS) injection 10 Units (Completed) insulin glargine (LANTUS) injection 25 Units Anemia of chronic disease I have taken time to review patient's information and having discussions with appropriate care teams, I appreciate seeing your patient, will continue to follow with you, and adjust with more information. Medical Decision Making: High This note is created with the assistance of a speech-recognition program. While intending to generate a document that actually reflects the content of the visit, the document can still have some errors including those of syntax and sound a- like substitutions which may escape proofreading. In such instances, actual meaning can be extrapolated by contextual derivation. [1] Current Facility-Administered Medications: aspirin EC tablet 81 mg, 81 mg, Oral, Daily, Oren Mireles DO, 81 mg at 02/04/25 0944 [Held by provider] bumetanide (BUMEX) injection 1 mg, 1 mg, Intravenous, Daily, Gina Reyna MD dextrose 5 % infusion, 50 mL/hr, Intravenous, Continuous, Cindy Herrera, JOHN, Stopped at 02/02/25 0800 [Held by provider] escitalopram oxalate (LEXAPRO) tablet 10 mg, 10 mg, Oral, Nightly, Oren Mireles DO, 10 mg at 01/29/25 0101 [Held by provider] heparin (porcine) 25,000 unit/250 mL(100 unit/mL) in D5W infusion, 0-70 Units/kg/hr, Intravenous, Continuous, Noemi Andrade MD, Stopped at 02/01/25 1712 heparin bolus from bag 0-5,000 Units, 0-5,000 Units, Intravenous, Continuous PRN, Nevin Matthew MD, 3,000 Units at 01/31/25 0613 insulin glargine (LANTUS) injection 25 Units, 25 Units, Subcutaneous, BID, Noemi Andrade MD, 25 Units at 02/03/25 2110 insulin lispro (AdmeLOG,HumaLOG) injection 0-15 Units, 0-15 Units, Subcutaneous, at bedtime ANDNotify physician, , , Until Discontinued, Antonino, Dominga Joyce, EXCELLENCE MANAGER insulin lispro (AdmeLOG,HumaLOG) injection 0-30 Units, 0-30 Units, Subcutaneous, TID AC, Dominga Muñiz CNP, 6 Units at 02/03/25 1641 [Held by provider] lisinopriL (PRINIVIL,ZESTRIL) tablet 5 mg, 5 mg, Oral, Daily, Oren Mireles DO melatonin tablet 3 mg, 3 mg, Oral, Nightly PRN, Noemi Andrade MD, 3 mg at 02/03/25 2307 metoprolol succinate (TOPROL-XL) 24 hr tablet 12.5 mg, 12.5 mg, Oral, BID, Cindy Herrera CNP, 12.5 mg at 02/04/25 0945 naloxone (NARCAN) injection 0.1 mg, 0.1 mg, Intravenous, PRN AND Notify physician, , , Until Discontinued AND naloxone (NARCAN) injection 0.4 mg, 0.4 mg, Intravenous, PRN, Noemi Andrade MD ondansetron (ZOFRAN) injection 4 mg, 4 mg, Intravenous, Q6H PRN, Dominga Muñiz CNP, 4 mg at01/29/25 1538 oxyCODONE (ROXICODONE) immediate release tablet 5 mg, 5 mg, Oral, Q4H PRN, Noemi Andrade MD, 5 mg at 02/03/25 2307 pantoprazole (PROTONIX) EC tablet 40 mg, 40 mg, Oral, BID, Noemi Andrade MD, 40 mg at 02/04/25 0945 penicillin G potassium 3 million unit/50 mL IVPB 3 Million Units, 3 Million Units, Intravenous, Q4H, Dominga Muñiz CNP, Last Rate: 200 mL/hr at 02/04/25 1413, 3 Million Units at 02/04/25 1413 senna-docusate (SENNA-S) 8.6-50 mg per tablet 1 tablet, 1 tablet, Oral, BID, Oren Mireles DO, 1 tablet at 02/04/25 0944 [Held by provider] simvastatin (ZOCOR) tablet 40 mg, 40 mg, Oral, at bedtime, Oren Mireles DO, 40 mg at 01/31/25 2040 Saline lock IV, , , Continuous AND sodium chloride (PF) (NS) flush 5 mL, 5 mL, Intravenous, PRNAND sodium chloride (PF) (NS) flush 5 mL, 5 mL, Intravenous, Q8H TEREZA, 5 mL at 02/04/25 1413 AND sodium chloride 0.9% (NS), 0-150 mL/hr, Intravenous, PRN, Oren Mireles DO, Last Rate:50 mL/hr at 02/04/25 0506, 50 mL/hr at 02/04/25 0506 * Lillian Spicer RD - 02/04/2025 10:59 AM EDT Nutrition Care Initial Assessment Reason for visit: Dietitian Screen: Length of Stay Nutrition Diagnosis: Impaired nutrient utilization related to multiple cardiac anomalies as evidenced by recommendation for low fat, low sodium, fluid conscious diet. Altered nutrition related lab values related to diabetes, endocrine dysfunction as evidenced by hyperglycemia. Nutrition Intervention Resume Meals and Snacks when medically able. Nutrition Prescription: Diet: Cardiac, Diabetic (60 g CHO/meal) Nutrition Goals: Tolerate diet with PO intakes >75% most meals Start Date:02/04/2025 Expected End Date:02/10/2025 Nutrition Education: Not appropriate due to clinical presentation Assessment: Pertinent clinical information: pt presented with tachycardia and malaise. Note LUE cellulitis/abscess, concern for toxic shock syndrome is noted. Pt to undergo SHAHAB today to r/o vegetation per chart review. Past Medical History: Diagnosis Date Aortic valve calcification Arrhythmia Atrial fibrillation (HCC) after CABG CAD (coronary artery disease) 3 Vessel Claudication Left lower extremity symptoms Fractures Ganglion cyst of dorsum of left wrist Ganglion cyst of dorsum of left wrist H/O CHF Hypertension Mitral valve annular calcification Myocardial infarction (HCC) 08/02/2015 Non-ST Obesity Oral cancer (HCC) Pilonidal cyst Subdural hematoma (HCC) 2008 minor trauma while on Plavix at the time. Tendonitis of wrist, right TIA (transient ischemic attack) 2007 was put on plavix then had subdural one year later. Vitreous hemorrhage of left eye (HCC) Past Surgical History: Procedure Laterality Date AORTIC VALVE REPLACEMENT CARDIAC CATHETERIZATION CARDIAC CATHETERIZATION N/A 12/25/2021 Procedure: Coronary Angiogram; Surgeon: Adilson Stone MD; Location[facility]; Service: Cardiovascular CARDIAC CATHETERIZATION N/A 12/25/2021 Procedure: Left Heart Cath w/Grafts; Surgeon: Adilson Stone MD; Location: [facility]; Service: Cardiovascular CARDIAC VALVE REPLACEMENT CORONARY ARTERY BYPASS GRAFT 08/13/2015 3 Vessel/YEUNG to the LAD/SVG to obtuse marginal/SVG to a PDA INCISION AND DRAINAGE LOWER EXTREMITY Left 02/01/2025 Procedure: LEFT HAND IRRIGATION AND DEBRIDEMENT; Surgeon: Dillan Cooper MD; Location: Main OR; Service: Orthopedic; Laterality: Left; MOUTH SURGERY 2007 Oral cancer TENDON RELEASE DEQUERVAINS Right 12/26/2018 Procedure: TENDON RELEASE DE QUERVAINS RIGHT; Surgeon: Jenaro Oquendo MD; Location: Main OR; Service: Orthopedic Height: 5' 7 Current weight: 98.6 kg (217 lb 6 oz) BMI Body mass index is 34.05 kg/m . Weight hx: Wt Readings from Last 10 Encounters: 02/04/25 98.6 kg (217 lb 6 oz) 01/28/25 99.8 kg (220 lb) 01/26/25 99.8 kg (220 lb) 01/26/25 99.8 kg (220 lb) 01/22/25 101.4 kg (223 lb 9.6 oz) 11/12/24 101.3 kg (223 lb 6.4 oz) 10/30/24 101.6 kg (223 lb 14.4 oz) 10/19/24 99.3 kg (219 lb) 06/06/24 98.4 kg (217 lb) 05/18/24 100.9 kg (222 lb 8 oz) Current diet order: Diet: NPO Recent intake: limited intake available for assessment. Insufficient intake data at this time, unable to determine if current intake meets estimated needs. Barriers to adequate p.o. intakes: Confusion/AMS Nutrition Related Allergies/Intolerances: No Nutrition Related Allergies noted Cultural or Latter Day Dietary Needs :No Cultural or Latter Day Dietary needs noted Patient/family comments:Deferred: Pt confused; RDN team to remain available in interim. Difficulty Chewing or Swallowing: No Skin Integrity: Surgical Incision(s) GI Function: LBM: 02/03 Fluid Status: Generalized edema noted Physical Appearance: Unable to assess at this time Labs: Recent Labs 02/04/25 0335 NA 133* K 4.3 BICARB 27 CL 95* GLUCOSE 104* BUN 30* CREATININE 1.32* MG 1.9 ALBUMIN 2.8* Recent Labs 02/02/25 0342 02/03/25 0335 02/04/25 0335 GLUCOSE 50* 69 104* Lab Results Component Value Date HGBA1C 8.7 (H) 01/28/2025 Home Medications Reviewed: Yes Scheduled Meds: aspirin 81 mg Oral Daily [Held by provider] bumetanide 1 mg Intravenous Daily [Held by provider] escitalopram oxalate 10 mg Oral Nightly insulin glargine 25 Units Subcutaneous BID lispro insulin 0-15 Units Subcutaneous at bedtime insulin lispro 0-30 Units Subcutaneous TID AC [Held by provider] lisinopriL 5 mg Oral Daily metoprolol succinate 12.5 mg Oral BID pantoprazole 40 mg Oral BID pencillin G potassium IVPB 3 Million Units Intravenous Q4H senna-docusate 1 tablet Oral BID [Held by provider] simvastatin 40 mg Oral at bedtime sodium chloride (PF) 5 mL Intravenous Q8H TEREZA Continuous Infusions: dextrose Stopped (02/02/25 0800) [Held by provider] heparin infusion (weight based dosing) Stopped (02/01/25 1712) heparin Nutrient Depleting Medications: Loop Diuretics Estimated Energy Needs Total Energy Estimated Needs: 2000 kcal/d Method for Estimating Needs: MSJ x 1.2 x 1 Total Protein Estimated Needs: 80 g/d Method for Estimating Needs: 0.8 g/kg current wt Lillian Spicer RDN, LD, CLC Dietitian Office: [phone] * Gina Reyna MD - 02/04/2025 10:37 AM EDT [facility]Y [facility] Patient Name: Andrew Arnold Admit Date: 7200815 MR #: [id number] : 1945 Perpetual Assessment: Andrew Arnold is a 79 y.o. male on hospital day 7 admitted for We are asked to evaluate and manage . Impression and Plan: Acute kidney injury secondary to renal hypoperfusion and at risk for ATN. Cannot rule out a component of contrast-induced nephropathy. - On 01/28 in the emergency room he was found to have A-fib with RVR, shock, febrile with laboratorydemonstrating DKA, DOMENICO with a creatinine of 1.6 Mg/DL, transaminitis, elevated troponin and he was subsequently admitted to the ICU. Underwent CT PE study 01/28. Hospital course complicated by shock requriing vasopressor, decreased biventricular function, bacteremia and urinary retention. - Echo shows LVEF 43%, reduced RV, pulmonary hypertension with RVSP of 61, moderate tricuspid valveregurgitation - Renal ultrasound 01/29 showed urine retention, no hydronephrosis. Brenner catheter placed 01/30 -Levophed discontinued 01/30 - Baseline creatinine less than 1.2 Mg/DL. Presented with a creatinine of 1.65 Mg/DL, peaked at 3.0Mg/DL and now 1.3 Mg/DL. Went into post ATN diuresis which is now resolve. No need for IV fluids or diuretics today. We will sign off given the significant improvement in kidney function. 2. Anion gap metabolic acidosis: resolved -Due to DKA, DOMENICO,lactic acidosis -Diabetes and sepsis management per primary team and critical care - No need for renal replacement therapy 3. Hyperkalemia: resolved - In the setting of DOMENICO, shock metabolic acidosis -With diuresis potassium now within normal limits. - Brenner placed due to urinary retention. Will need voiding trial 4 Shock: resolved - Likely mixed septic - Management of sepsis per primary team -Manage of systolic heart failure, RV dysfunction per cardiology 5. Sepsis - Left hand cellulitis with abscess. Sp left hand ganglion cyst I&D 01/26. . CT left arm diffusesoft tissue swelling along the dorsal aspect of the forearm/wrist, negative for septic arthritis. Patient will have I&D per orthopedics 02/01 - Blood culture showing group B streptococcus. - Left hand wound culture growing Streptococcus agalactiae (group B) - On penicillin G per infectious disease. - SHAHAB planned on Tuesday 6. Non-STEMI, A-fib with RVR, acute systolic heart failure with RV dysfunction and pulmonary hypertension -Per cardiology 7. Acute hypoxic respiratory failure - On supplemental oxygen. - Diuresis as above 8. Transaminitis - Likely due to shock - Abdominal ultrasound showed cholelithiasis without cholecystitis and hepatic steatosis 9. Urinary retention -- Brenner placed due to urinary retention. Will need voiding trial Subjective: Family at bedside. Reviewed the plan and nephrology care. Review of Systems: ROS otherwise reviewed and negative Physical Examination: Vitals: Vitals: 02/04/25 0338 02/04/25 0725 02/04/25 0735 02/04/25 0940 BP: (!) 106/59 107/67 122/64 BP Location: Patient Position: Pulse: 70 76 88 Resp: 17 (!) 19 Temp: 97.6 F (36.4 C) 98.2 F (36.8 C) TempSrc: Oral Oral SpO2: 93% 99% 95% Weight: Height: Intake/Output last 3 shifts: Intake/Output Summary (Last 24 hours) at 02/04/2025 1037 Last data filed at 02/04/2025 1019 Gross per 24 hour Intake -- Output 2000 ml Net -2000 ml I/O last 3 completed shifts: In: - Out: 2475 [Urine:2475] General: Age appropriate, NAD. HEENT: Normocephalic, no scleral icterus. Neck: No JVD. Heart: Regular, soft murmur present lungs: Distant breath sounds. On supplemental oxygen Abdomen: Soft, nontender, no supra-public fullness or tenderness. Extremities: Left hand wound dressing clean dry intact. No lower extremity edema Skin: Warm, dry, no rash, no bruise, no petichiae. Neuro: No myoclonus or tremor. Psych: Normal affect. : [x] Brenner present [] Brenner not present Results/Medications Reviewed 02/04/25 10:37 AM: Laboratory, Microbiology, Pathology, Radiology, Cardiology, Medications and Transcriptions reviewed Scheduled Meds: aspirin 81 mg Oral Daily [Held by provider] bumetanide 1 mg Intravenous Daily [Held by provider] escitalopram oxalate 10 mg Oral Nightly insulin glargine 25 Units Subcutaneous BID lispro insulin 0-15 Units Subcutaneous at bedtime insulin lispro 0-30 Units Subcutaneous TID AC [Held by provider] lisinopriL 5 mg Oral Daily metoprolol succinate 12.5 mg Oral BID pantoprazole 40 mg Oral BID pencillin G potassium IVPB 3 Million Units Intravenous Q4H senna-docusate 1 tablet Oral BID [Held by provider] simvastatin 40 mg Oral at bedtime sodium chloride (PF) 5 mL Intravenous Q8H TEREZA Continuous Infusions: dextrose Stopped (02/02/25 0800) [Held by provider] heparin infusion (weight based dosing) Stopped (02/01/25 1712) heparin Results from last 7 days Lab Units 02/04/25 0335 02/03/25 0335 02/02/25 1642 02/02/25 0342 WBC K/mcL 14.49* 16.16* -- 15.60* HGB g/dL 8.2* 8.4* 9.4* 9.4* HCT % 25.8* 26.7* 29.5* 29.4* PLT K/mcL 211 181 -- 174 Results from last 7 days Lab Units 02/04/25 0335 02/03/25 0335 02/02/25 0945 02/02/25 0342 01/29/25 0752 01/29/25 0458 01/28/25 2347 01/28/25 2338 SODIUM mmol/L 133* 130* -- 136 < > 133* < > 129* POTASSIUM mmol/L 4.3 4.5 4.4 3.7 < > 4.4 < > 4.6 CHLORIDE mmol/L 95* 93* -- 96* < > 100 < > 96* BICARB mmol/L -- 27 < > 18* -- 13* BUN mg/dL 30* 42* -- 61* < > 43* -- 38* CREATININE mg/dL 1.32* 1.50* -- 1.95* < > 2.11* -- 1.86* EGFR mL/min/1.73 m2 55* 47* -- 34* < > 31* -- 36* GLUCOSE mg/dL 104* 69 -- 50* < > 282* < > 464* CALCIUM mg/dL 8.5 8.5 -- 8.5 < > 8.4 -- 8.2* MAGNESIUM mg/dL 1.9 2.0 -- 2.3 2.2 < > 2.1 -- 1.9 PHOSPHORUS mg/dL -- -- -- -- -- 3.9* -- 3.9* < > = values in this interval not displayed. Urinalysis Results from last 7 days Lab Units 01/30/25 1311 01/28/259 COLOR, UR Brown* Yellow CLARITY, UR Cloudy* Clear SPEC GRAV 1.015 1.024 PH, UR 5.0 5.5 GLUCOSE, UR mg/dL Negative >=500* KETONES, UR mg/dL Negative 20* BILIRUBIN, UR Negative Negative UROBILINOGEN, UR mg/dL <2.0 <2.0 BLOOD, UR Large* Small* NITRITE, UR Negative Negative LEUK BARNEY, UR Trace* Trace* MUCUS, UR /lpf Rare Rare WBC, UR /hpf >180* 26* BACTERIA, UR /hpf Rare* Rare* HYALINE CASTS /lpf -- 3-5* Potential limitations of the note: Parts of this note were created by dictation via voice recognition software ([employer]). The completed note was reviewed for accuracy. However, there may be subtle errors that were not found during the review. If such errors are discovered, or if there are any questions or concerns regarding the recommendations/plan of care, please contact the author of the note prior to undertaking the recommendations/plan of care. * Noemi Andrade MD - 02/04/2025 8:42 AM EDT [facility] PROGRESS NOTE Patient Name: Andrew Arnold : 1945 Assessment and Plan Andrew Arnold is a 79 y.o. male patient of Vivien Foreman MD with history of CAD s/p CABG, atrial fibrillation on Eliquis, DM II, and mood disorder who presented to [facility] on[facility]28[facility]25 with tachycardia and generalized malaise which started few hours after an outpatient lefthand abscess drainage. Left upper extremity cellulitis/abscess He is s/p left hand ganglion cyst I&D on 01/26. CT of the LUE on 01/27 showed moderate amount of diffuse soft tissue swelling along the dorsal aspect of the forearm and wrist extending into the hand to the level of the metacarpals. No evidence of septic arthritis. POD 3 for irrigation and debridement of the wound. Wound is clean and dry, no surrounding erythema. Intact neurovascular bundle of the LUE. Wound culture from 01/30 grew Streptococcus agalaciae. Blood Cx on 01/30 grew strep agalactiae, repeat cx on 02/01 still positive. Repeat blood cultures today. Continue penicillin G. ID to reevaluate. Concern for toxic shock syndrome Acute encephalopathy Septic Shock Bacteremia Sepsis was present on admission and felt to be due to soft tissue infection. He was in septic shock that required vasopressors Blood culture grew Streptococcus, likely source from the left hand.. Lactic acid 5.8 >> 2.9. He was started on vancomycin and Zosyn. Continue penicillin G, ID following. Mentation is now back to his baseline. SHAHAB to rule out vegetation planned for today. Will follow with SHAHAB result. DM II with diabetes ketoacidosis Had episodes of hypoglycemia requiring Lantus dose reduction. BG is improved. Decrease dose of Lantus from 30 twice daily to 25 twice daily. Ciara hold Lantus this a.m. due to n.p.o. status, restart after SHAHAB. Elevated troponin Transaminitis Troponin 708 >> 2278 >> 721. Likely demand ischemia from sepsis. Denies chest pain. He was evaluated by cardiology, was on heparin gtt now discontinued. Elevated LFTs likely from shock, LFTs improved. DOMENICO on chronic kidney disease Anion gap metabolic acidosis Baseline Cr around 1 Cr peaked at 3.06, now 1.50. He is nonoliguric, holding lisinopril. Renal ultrasound with no hydronephrosis, evidence of urinary retention. Evaluated by nephrology, continue to monitor. Hyperkalemia In the setting of DOMENICO with shock. K is improved to 4.3. Continue to monitor. Urinary retention Brenner catheter was placed on 01/30. He has good UOP. Voiding trial when more ambulatory. CAD status post CABG Atrial fibrillation with RVR Presented with A-fib with RVR to as high as 162. HR better controlled. Continue home aspirin, statin, beta-julia. Holding home lisinopril due to soft BP Eliquis on hold due to anemia Hemoccult positive. Anemia Interval drop in Hb from 10.8 on admission to 8.2. Component of blood loss from left hand I&D. However occult blood positive. Last colonoscopy was about 10 years ago with finding of medium sized diverticula and hemorrhoids. Eliquis is currently on hold. GI evaluation post SHAHAB. Monitor Hb closely. Mood disorder Restart Lexapro. Resolved acute medical issues Discharge Planning Patient Medically Ready for Discharge: no Patient requires continued hospitalization due to: SHAHAB, ongoing IV antibiotic for bacteremia. Expected Date of Discharge: 02/05- 02/06. Expected Discharge Location: Home Quality Measures DVT Prophylaxis: SCD. Brenner Catheter: Yes. Code Status Full Code - Unverified Primary Contact Information Subjective Examined at bedside, resting in bed, awake and alert, no acute distress. Denies pain in the left hand. He is afebrile, left hand irrigation and debridement is much better, nursing has no pressing concerns. Objective BP 107/67 Pulse 76 Temp 98.2 F (36.8 C) (Oral) Resp (!) 19 Ht 5' 7 Wt 98.6 kg (217 lb 6 oz) SpO2 95% BMI 34.05 kg/m Physical Examination General Appearance: Supine in bed, awake and alert, no acute distress. Family members present. He is [place]. HEENT: Head- normocephalic; Eyes- EOMI, sclera anicteric; Throat- mucous membranes dry. Cardiovascular: regular rate and rhythm; normal S1, S2; no murmurs, rubs, clicks or gallops; peripheral edema 1+, LUE is improved post I&D, wound is clean and covered, no erythema or edema, movesfingers without discomfort. Respiratory: lungs clear to auscultation; without wheezes, rales or rhonchi; on room air Abdomen: Full and soft, positive bowel sounds, no G/R, Brenner in situ. Neurological: oriented x 3; normal speech; no focal findings or movement disorder noted Musculoskeletal: no significant deformity or tenderness to palpation Skin: normal coloration, warm and dry. Psych: normal mood and affect, no agitation. * Niharika Delarosa CNP - 02/04/2025 8:30 AM EDT General Cardiology Inpatient Follow-up Heart & Vascular [facility] 02/04/2025 Niharika Delarosa CNP [facility] Patient: Andrew Arnold Date of : 1945 (79 y.o.) PCP: Vivien Foreman MD Primary aircraft sales representative: Dr. Healy Assessment/Plan: This is an 79-year-old male with a history of coronary artery disease status post CABG and aortic valve replacement in August 2015 and HFpEF. Who presented with multi organ damage including DOMENICO lactic acidosis elevated troponin consistent with septic shock. Elevated troponin Elevated troponin 2216, 2278, 721 likely demand ischemia in setting of acute heart failure, respiratory failure, septic shock, DOMENICO, anemia. Does not have symptoms suggestive of acute coronary syndrome. Currently denies chest pain, no further inpatient ischemic evaluation currently planned Coronary artery disease history of CABG and aortic valve replacement with bioprosthetic aortic valve in 2015 Echo this admission with moderate AI with possible mobile densities on leaflets of aortic valve Continue toprol XL 12.5 mg daily Continue aspirin 81 mg daily Resume simvastatin 40 mg daily when able Patient denies chest pain Acute HFmrEF, stage C Admitted with acute respiratory failure, DOMENICO, BNP 56,129, chest CT with groundglass opacities of upper lobes status post IV diuresis and IV vasopressors Echo this admission with newly reduced EF EF 43%, indeterminate diastolic function in setting of septic shock Urine output -1.1 L overnight, net -9 L creatinine trending down Nephrology on board in setting of DOMENICO which is improving, Bumex currently on hold per their recommendations Further titrate GDMT as BP and renal function allow Strict intake and output, daily weights Continue Toprol-XL 12.5 mg twice daily Abnormal echocardiogram Per echocardiogram 01/29/2025 mobile densities could not be excluded on the leaflets of the aortic valve. In setting of bacteremia and history of bioprosthetic aortic valve concerning for possible endocarditis SHAHAB today for further evaluation approximately 1 PM, further recommendations pending results Permanent A-fib Currently A-fib rate controlled 70s to 80s Currently heparin drip on hold per primary team due to reported and bleeding and anemia [id number] over 2 Will need Eliquis restarted prior to discharge Toprol XL 12.5 mg twice daily Valvular regurgitation Pulmonary hypertension Moderate MR, moderate TR with RVSP 61 mmHg reported on echo this admission Recommend to maintain euvolemia Management of septic shock, bacteremia, diabetes, left upper extremity cellulitis/abscess, acute encephalopathy, transaminitis, DOMENICO, hyperkalemia, anemia per primary team Subjective Patient resting in bed, currently drowsy, no family members currently at bedside. Telemetry independently reviewed: Atrial fibrillation 70s to 80s I/O last 3 completed shifts: In: - Out: 2475 [Urine:2475] No intake/output data recorded. ECG 12 Lead Final Result by Interface, Lab Results In [place] [facility] (01/30/2025 1116) Echocardiogram Complete Final Result by Jennifer Cintron MD (01/29/2025 1455) Echocardiogram complete w contrast Final Result by Jennifer Cintron MD (03/22/2023 1601) Stress test only, exercise Final Result by Nik Hoskins DO (02/13/2016 0900) Cardiac Catheterization Final Result by Adilson Stone MD (12/25/2021 1253) Review of Systems: The following system(s) were reviewed and negative. Pertinent positive and negative findings are noted in the HPI. [x] Const [x] Eyes [x] ENT [] Resp [] CV [x] GI [x] [x] Neuro [x] Musc [] Skin [x] Psych [x] Endo [x] Allergy [x] Heme/Lymph Current Medications[1] Objective: Physical Examination: BP 107/67 Pulse 76 Temp 98.2 F (36.8 C) (Oral) Resp (!) 19 Ht 5' 7 Wt 98.6 kg (217 lb 6 oz) SpO2 95% BMI 34.05 kg/m Constitutional: Drowsy, not in distress Eyes: Conjunctivae/corneas clear Lungs: Clear to auscultation, diminished Cardiovascular: Controlled rate and irregular rhythm, no murmurs noted, no pedal edema, no JVD Abdomen: Soft, with normal active bowel sounds Skin: warm and dry, dressing intact to left hand/wrist, vascular changes to bilateral lower extremities Musculoskeletal: Moves all extremities Psych: Oriented to self and place, agreeable conversation Lab Results Component Value Date GLUCOSE 104 (H) 02/04/2025 CALCIUM 8.5 02/04/2025 NA 133 (L) 02/04/2025 K 4.3 02/04/2025 CL 95 (L) 02/04/2025 BUN 30 (H) 02/04/2025 CREATININE 1.32 (H) 02/04/2025 Lab Results Component Value Date WBC 14.49 (H) 02/04/2025 HGB 8.2 (L) 02/04/2025 HCT 25.8 (L) 02/04/2025 MCV 82.7 02/04/2025 EXTMCV 86.4 11/09/2024 PLT 211 02/04/2025 RBC 3.12 (L) 02/04/2025 Lab Results Component Value Date CHOL 110 12/02/2023 Lab Results Component Value Date HDL 55 12/02/2023 Lab Results Component Value Date LDLCALC 47 12/02/2023 Lab Results Component Value Date TRIG 38 12/02/2023 Lab Results Component Value Date CHOLHDL 2.0 12/02/2023 Lab Results Component Value Date TROPONINT 721 (CH) 02/01/2025 TROPONINT 2,278 (CH) 01/29/2025 TROPONINT 2,216 (CH) 01/29/2025 Lab Results Component Value Date NTPROBNP 56,129 (H) 01/29/2025 Please excuse any typographical errors as dictation software was used [1] Current Facility-Administered Medications Medication Dose Route Frequency Provider Last Rate Last Admin aspirin EC tablet 81 mg 81 mg Oral Daily Oren Mireles DO 81 mg at 02/03/25 0823 [Held by provider] bumetanide (BUMEX) injection 1 mg 1 mg Intravenous Daily Gina Reyna MD dextrose 5 % infusion 50 mL/hr Intravenous Continuous Cindy Herrera, EXCELLENCE MANAGER Stopped at 02/02/25 0800 [Held by provider] escitalopram oxalate (LEXAPRO) tablet 10 mg 10 mg Oral Nightly Oren Mireles DO 10 mg at 01/29/25 0101 [Held by provider] heparin (porcine) 25,000 unit/250 mL(100 unit/mL) in D5W infusion 0-70 Units/kg/hr Intravenous Continuous Noemi Andrade MD Stopped at 02/01/25 1712 heparin bolus from bag 0-5,000 Units 0-5,000 Units Intravenous Continuous PRN Nevin Matthew MD 3,000 Units at 01/31/25 0613 insulin glargine (LANTUS) injection 25 Units 25 Units Subcutaneous BID Noemi Andrade MD 25 Units at 02/03/25 2110 insulin lispro (AdmeLOG,HumaLOG) injection 0-15 Units 0-15 Units Subcutaneous at bedtime Dominga Muñiz CNP insulin lispro (AdmeLOG,HumaLOG) injection 0-30 Units 0-30 Units Subcutaneous TID AC Dominga Muñiz CNP 6 Units at 02/03/25 1641 [Held by provider] lisinopriL (PRINIVIL,ZESTRIL) tablet 5 mg 5 mg Oral Daily Oren Mireles DO melatonin tablet 3 mg 3 mg Oral Nightly PRN Noemi Andrade MD 3 mg at 02/03/25 2307 metoprolol succinate (TOPROL-XL) 24 hr tablet 12.5 mg 12.5 mg Oral BID Cindy Herrera CNP 12.5 mg at 02/03/25 211 naloxone (NARCAN) injection 0.1 mg 0.1 mg Intravenous PRN Noemi Andrade MD And naloxone (NARCAN) injection 0.4 mg 0.4 mg Intravenous PRN Noemi Andrade MD ondansetron (ZOFRAN) injection 4 mg 4 mg Intravenous Q6H PRN Dominga Muñiz CNP 4 mg at 01/29/25 1538 oxyCODONE (ROXICODONE) immediate release tablet 5 mg 5 mg Oral Q4H PRN Noemi Andrade MD 5 mg at 02/03/252306 pantoprazole (PROTONIX) EC tablet 40 mg 40 mg Oral BID Noemi Andrade MD 40 mg at 02/03/252108 penicillin G potassium 3 million unit/50 mL IVPB 3 Million Units 3 Million Units Intravenous Q4H Dominga Muñiz CNP 200 mL/hr at 02/04/25 0623 3 Million Units at 02/04/25 0623 senna-docusate (SENNA-S) 8.6-50 mg per tablet 1 tablet 1 tablet Oral BID Kiza, Oren [place], DO 1 tablet at 02/03/252108 [Held by provider] simvastatin (ZOCOR) tablet 40 mg 40 mg Oral at bedtime Kiza, Oren [place], DO40 mg at 01/31/252039 sodium chloride (PF) (NS) flush 5 mL 5 mL Intravenous PRN Kiza, Oren [place], DO And sodium chloride (PF) (NS) flush 5 mL 5 mL Intravenous Q8H TEREZA Kiza, Oren [place], DO 5 mL at 02/04/25 0510 And sodium chloride 0.9% (NS) 0-150 mL/hr Intravenous PRN Kiza, Oren Niwem[place], DO 50 mL/hr at 02/04/25 0506 50 mL/hr at 02/04/25 0506 * Adriano Carroll RN - 02/03/2025 11:42 PM EDT Deterioration Index score is 66. Pt chart reviewed. Pt assessed at the bedside by this RRN. Pt awake, laying in bed with no distress noted. Continues on 1L NC. Pt is alert to self and thinks it is morning; attempted to reorient. Spoke with primary RN and has no concerns and states pt is confused. Nursing to notify with further concerns. Jeri SHETH notified of elevated DI score. Will follow clos domenico. * Gina Reyna MD - 02/03/2025 10:14 AM EDT [facility]Y [facility] Patient Name: Andrew Arnold Admit Date: [id number] MR #: [id number] : 1945 Perpetual Assessment: Andrew Arnold is a 79 y.o. male on hospital day 6 admitted for We are asked to evaluate and manage . Impression and Plan: Acute kidney injury secondary to renal hypoperfusion and at risk for ATN. Cannot rule out a component of contrast-induced nephropathy. -On 01/28 in the emergency room he was found to have A-fib with RVR, shock, febrile with laboratory demonstrating DKA, DOMENICO with a creatinine of 1.6 Mg/DL, transaminitis, elevated troponin and he was subsequently admitted to the ICU. Underwent CT PE study 01/28. Hospital course complicated by shock requriing vasopressor, decreased biventricular function, bacteremia and urinary retention. - Echo shows LVEF 43%, reduced RV, pulmonary hypertension with RVSP of 61, moderate tricuspid valveregurgitation - Renal ultrasound 01/29 showed urine retention, no hydronephrosis. Brenner catheter placed 01/30 -Levophed discontinued 01/30 - Baseline creatinine less than 1.2 Mg/DL. Presented with a creatinine of 1.65 Mg/DL,peaked at 3.0Mg/DL and now 1.5 Mg/DL. Went into post ATN diuresis which is now resolve. No need for IV fluids or diuretics today. 2. Anion gap metabolic acidosis: resolved -Due to DKA, DOMENICO,lactic acidosis -Diabetes and sepsis management per primary team and critical care - No need for renal replacement therapy 3. Hyperkalemia: resolved - In the setting of DOMENICO, shock metabolic acidosis -With diuresis potassium now within normal limits. - Continue Brenner given urinary retention 4 Shock: resolved - Likely mixed septic - Management of sepsis per primary team -Manage of systolic heart failure, RV dysfunction per cardiology 5. Sepsis - Left hand cellulitis with abscess. Sp left hand ganglion cyst I&D 01/26. . CT left arm diffusesoft tissue swelling along the dorsal aspect of the forearm/wrist, negative for septic arthritis. Patient will have I&D per orthopedics 02/01 - Blood culture showing group B streptococcus. - Left hand wound culture growing Streptococcus agalactiae (group B) - On penicillin G per infectious disease. - SHAHAB planned on Tuesday 6. Non-STEMI, A-fib with RVR, acute systolic heart failure with RV dysfunction and pulmonary hypertension -Per cardiology 7. Acute hypoxic respiratory failure - On supplemental oxygen. - Diuresis as above 8. Transaminitis - Likely due to shock - Abdominal ultrasound showed cholelithiasis without cholecystitis and hepatic steatosis Subjective: Patient very happy kidney function improved. He wants to be discharged. Aware that he remains here due to antibiotics and discharge planning regards to that Review of Systems: ROS otherwise reviewed and negative Physical Examination: Vitals: Vitals: 02/02/25 2322 02/03/25 0326 02/03/25 0448 02/03/25 0811 BP: (!) 99/58 (!) 91/54 BP Location: Patient Position: Pulse: 84 85 Resp: 16 Temp: 98.2 F (36.8 C) 98.7 F (37.1 C) 98.3 F (36.8 C) TempSrc: Oral Oral Oral SpO2: 90% Weight: 102.9 kg (226 lb 13.7 oz) Height: Intake/Output last 3 shifts: Intake/Output Summary (Last 24 hours) at 02/03/2025 1014 Last data filed at 02/03/2025 0510 Gross per 24 hour Intake -- Output 1850 ml Net -1850 ml I/O last 3 completed shifts: In: 360 [P.O.:360] Out: 3850 [Urine:3850] General: Age appropriate, NAD. HEENT: Normocephalic, no scleral icterus. Neck: No JVD. Heart: Regular, soft murmur present lungs: Distant breath sounds. On supplemental oxygen Abdomen: Soft, nontender, no supra-public fullness or tenderness. Extremities: Left hand wound dressing clean dry intact. No lower extremity edema Skin: Warm, dry, no rash, no bruise, no petichiae. Neuro: No myoclonus or tremor. Psych: Normal affect. : [x] Brenner present [] Brenner not present Results/Medications Reviewed 02/03/25 10:14 AM: Laboratory, Microbiology, Pathology, Radiology, Cardiology, Medications and Transcriptions reviewed Scheduled Meds: aspirin 81 mg Oral Daily [Held by provider] bumetanide 1 mg Intravenous Daily [Held by provider] escitalopram oxalate 10 mg Oral Nightly insulin glargine 30 Units Subcutaneous BID lispro insulin 0-15 Units Subcutaneous at bedtime insulin lispro 0-30 Units Subcutaneous TID AC [Held by provider] lisinopriL 5 mg Oral Daily metoprolol succinate 12.5 mg Oral BID pantoprazole 40 mg Oral BID pencillin G potassium IVPB 3 Million Units Intravenous Q4H senna-docusate 1 tablet Oral BID [Held by provider] simvastatin 40 mg Oral at bedtime sodium chloride (PF) 5 mL Intravenous Q8H TEREZA Continuous Infusions: dextrose Stopped (02/02/25 0800) [Held by provider] heparin infusion (weight based dosing) Stopped (02/01/25 1712) heparin Results from last 7 days Lab Units 02/03/25 0335 02/02/25 1642 02/02/25 0342 02/01/25 0342 WBC K/mcL 16.16* -- 15.60* 17.75* HGB g/dL 8.4* 9.4* 9.4* 9.8* HCT % 26.7* 29.5* 29.4* 30.0* PLT K/mcL 181 -- 174 168 Results from last 7 days Lab Units 02/03/25 0335 02/02/25 0945 02/02/25 0342 02/01/25 0951 02/01/25 0342 01/29/25 0752 01/29/25 0458 01/28/25 2347 01/28/25 2338 SODIUM mmol/L 130* -- 136 -- 133* < > 133* < > 129* POTASSIUM mmol/L 4.5 4.4 3.7 < > 3.7 < > 4.4 < > 4.6 CHLORIDE mmol/L 93* -- 96* -- 94* < > 100 < > 96* BICARB mmol/L -- -- 25 < > 18* -- 13* BUN mg/dL 42* -- 61* -- 74* < > 43* -- 38* CREATININE mg/dL 1.50* -- 1.95* -- 2.53* < > 2.11* -- 1.86* EGFR mL/min/1.73 m2 47* -- 34* -- 25* < > 31* -- 36* GLUCOSE mg/dL 69 -- 50* -- 73 < > 282* < > 464* CALCIUM mg/dL 8.5 -- 8.5 -- 8.6 < > 8.4 -- 8.2* MAGNESIUM mg/dL 2.0 -- 2.3 2.2 -- 1.9 < > 2.1 -- 1.9 PHOSPHORUS mg/dL -- -- -- -- -- -- 3.9* -- 3.9* < > = values in this interval not displayed. Urinalysis Results from last 7 days Lab Units 01/30/25 1311 01/28/259 COLOR, UR Brown* Yellow CLARITY, UR Cloudy* Clear SPEC GRAV 1.015 1.024 PH, UR 5.0 5.5 GLUCOSE, UR mg/dL Negative >=500* KETONES, UR mg/dL Negative 20* BILIRUBIN, UR Negative Negative UROBILINOGEN, UR mg/dL <2.0 <2.0 BLOOD, UR Large* Small* NITRITE, UR Negative Negative LEUK BARNEY, UR Trace* Trace* MUCUS, UR /lpf Rare Rare WBC, UR /hpf >180* 26* BACTERIA, UR /hpf Rare* Rare* HYALINE CASTS /lpf -- 3-5* Potential limitations of the note: Parts of this note were created by dictation via voice recognition software ([employer]). The completed note was reviewed for accuracy. However, there may be subtle errors that were not found during the review. If such errors are discovered, or if there are any questions or concerns regarding the recommendations/plan of care, please contact the author of the note prior to undertaking the recommendations/plan of care. * Noemi Andrade MD - 02/03/2025 9:17 AM EDT [facility] PROGRESS NOTE Patient Name: Andrew Arnold : 1945 Assessment and Plan Andrew Arnold is a 79 y.o. male patient of Vivien Foreman MD with history of CAD s/p CABG, atrial fibrillation on Eliquis, DM II, and mood disorder who presented to [facility] on01/28/2025 with tachycardia and generalized malaise which started few hours after an outpatient lefthand abscess drainage. Left upper extremity cellulitis/abscess He is s/p left hand ganglion cyst I&D on 01/26. CT of the LUE on 01/27 showed moderate amount of diffuse soft tissue swelling along the dorsal aspect of the forearm and wrist extending into the hand to the level of the metacarpals. No evidence of septic arthritis. POD 2 for irrigation and debridement of the wound. Wound is clean dry, no surrounding erythema. Wound culture from 01/30 grew Streptococcus agalaciae. Blood Cx on 01/30 grew strep agalactiae, repeat cx on 02/01 still positive. Continue penicillin G. ID to reevaluate. Concern for toxic shock syndrome Acute encephalopathy Septic Shock Bacteremia Sepsis was present on admission and felt to be due to soft tissue infection. He was in septic shock that required vasopressors Blood culture grew Streptococcus, likely source from the left hand.. Lactic acid 5.8 >> 2.9. He was started on vancomycin and Zosyn. Continue penicillin G, ID following. Mentation is now back to his baseline. SHAHAB to rule out vegetation now postponed to 02/04. N.p.o. at midnight. DM II with diabetes ketoacidosis BG slightly improved, oral intake is liberalized. Decrease dose of Lantus from 30 twice daily to 25 twice daily. Continue sliding scale Humalog. Elevated troponin Transaminitis Troponin 708 >> 2278 >> 721. Although likely demand ischemia from sepsis. Currently denying chest pain. He was evaluated by cardiology, was on heparin gtt now discontinued. Elevated LFTs likely from shock. LFTs appear to have plateaued and now declining. DOMENICO on chronic kidney disease Anion gap metabolic acidosis Baseline Cr around 1 Cr peaked at 3.06, now 1.50. He is nonoliguric, holding lisinopril. Renal ultrasound with no hydronephrosis, evidence of urinary retention. Evaluated by nephrology, continue to monitor. Hyperkalemia In the setting of DOMENICO with shock. K is improved to 4.5. Continue to monitor. Urinary retention Brenner catheter was placed on 01/30. He has good UOP. Voiding trial when more ambulatory. CAD status post CABG Atrial fibrillation with RVR Presented with A-fib with RVR to as high as 162. HR better controlled. Continue home aspirin, statin, beta-julia. Holding home lisinopril due to shock. Restart Eliquis soon. Mood disorder Lexapro currently on hold. Resolved acute medical issues Discharge Planning Patient Medically Ready for Discharge: no Patient requires continued hospitalization due to: Ongoing management of septic shock and left handinfection. Expected Date of Discharge: 02/02. Expected Discharge Location: Home Quality Measures DVT Prophylaxis: SCD. Brenner Catheter: Yes. Code Status Full Code - Unverified Primary Contact Information Subjective Examined at bedside, awake and alert, no acute distress. Afebrile, left hand pain is controlled. Nursing has no pressing concerns. Objective BP (!) 91/54 Pulse 85 Temp 98.3 F (36.8 C) (Oral) Resp 16 Ht 5' 7 Wt 102.9 kg (226 lb 13.7 oz) SpO2 90% BMI 35.53 kg/m Physical Examination General Appearance: Up in the chair, awake and alert, in no acute distress. HEENT: Head- normocephalic; Eyes- EOMI, sclera anicteric; Throat- mucous membranes dry. Cardiovascular: regular rate and rhythm; normal S1, S2; no murmurs, rubs, clicks or gallops; peripheral edema 1+, LUE is swollen with tenderness in the dorsum of the left hand, swollen, purulent drainage. Respiratory: lungs clear to auscultation; without wheezes, rales or rhonchi; on room air Abdomen: Full and soft, positive bowel sounds, no G/R, Brenner in situ. Neurological: oriented x 3; normal speech; no focal findings or movement disorder noted Musculoskeletal: no significant deformity or tenderness to palpation Skin: normal coloration, warm and dry. Psych: normal mood and affect, no agitation. * Dillan Cooper MD - 02/03/2025 8:45 AM EDT ATTENDING PHYSICIAN CANDIDA PATRICIO [facility] PRIMARY CARE PHYSICIAN VIVIEN FOREMAN MD ADMITTING PHYSICIAN OREN MIRELES DO CONSULTING PHYSICIAN OREN MIRELES DO Andrew at this point in time is postoperative day #2 irrigation and debridement, left hand. The patient is in good spirits. He says his hand feels dramatically improved. We are awaiting final culture results from the left hand. Gram stains were showing gram-positive cocci. Flexor and extensor tendons are intact. IMPRESSION Postoperative day 2 left hand irrigation and debridement. PLAN We will continue dressing changes. Continue antibiotics. Further recommendations to follow. D 02/03/2025 08:46 [id number] 02/03/2025 09:37 MCB/MODL * Franchesca Dior RN - 02/03/2025 3:08 AM EDT Deterioration Index score is 59, DI increased by 17, chart reviewed, nursing to continue to follow DI protocol and reach out to FAMILY RESOURCE MANAGEMENT SPECIALIST as needed for support. * Kunal Norman MD - 02/02/2025 4:24 PM EDT Patient Name: Andrew Arnold Admit Date: [id number] MR #: [id number] : 1945 Physicians: Vivien Foreman MD (Family); No ref. provider found (Referring) Assessment: Patient with 1. Septic shock, 2. Suspicion for pneumonia, 3. Respiratory failure, 4. Leukocytosis. 5. Left upper extremity cellulitis/fasciitis 6. Bacteremia with Streptococcus agalactia 7. Liver dysfunction, improving Plan. Continue patient on current therapy Status post discontinue IV clindamycin Patient on IV penicillin G Patient status post DC IV Zosyn. Patient on IV vancomycin DC IV vancomycin if negative MRSA. Keep a close eye on the wound area and also on the kidney function I appreciate orthopedic evaluation, status post I&D. Follow-up labs Reviewed blood culture with Streptococcus agalactiae in 2 sets of blood culture. I reviewed repeat blood cultures with no growth. I reviewed urinalysis with large blood, trace leuk esterase, WBC 180 with rare bacteria. Reviewed CT of the pulmonary artery, with groundglass opacity of the upper lobe suspicious for atypical inflammatory infectious process, I reviewed chest x-ray with with borderline cardiomegaly I reviewed echocardiogram, with ejection fraction of 43%, with post aortic valve replacement noted bioprosthetic valve. Cannot exclude mobile density on the leaflets due to image quality. I reviewed Renal ultrasound with no hydronephrosis, bilateral renal cysts and diffuse bladder wall thickening. Reviewed x-ray of the left wrist, with degenerative disease and deformity noted. I reviewed CT of the left upper extremity, with moderate amount of diffuse soft tissue swellings,May be secondary to cellulitis, no CT evidence of septic arthritis, severe degenerative changes and chronic avascular necrosis of the lunate Continue hydration and Patient off pressors Will continue to follow with you. Reviewed the CRP of 311. Aspiration precaution recommended. I reviewed abdominal ultrasound, with cholelithiasis without cholecystitis. On discharge: To be determined, workup in progress. Subjective: Today patient reevaluated, with no new symptoms, no fever or chills. Lying quietly on the bed mattress. Was status post I&D of left hand abscess and extensor tenosynovitis. Patient area dressed. Did not complain of any new symptoms pain stable. Patient had Tmax of 98.9. Saturating 100%. Exam: PACU Vitals 02/02/25 1541 BP: 129/73 Pulse: 96 Resp: (!) 20 Temp: 98.4 F (36.9 C) SpO2: Allergies: Pioglitazone Current Medications[1] PMH/PSH/SH/FH reviewed, no change : Review of Systems: All systems were reviewed no change: Medications Reviewed. Allergies: Pioglitazone Chart Reviewed. Exam Findings: HEENT: Atraumatic/Pupils equal & reactive Neck: Supple, no rigidity ENT: No oral candidiasis Chest: Lungs clear bilaterally, no wheezing, or rales CVS: Normal S1 & S2+, Abdomen: Normal symmetry, Soft/non-tender. Benign, BS+ Extremities: No Deformities, wrist area dressed status post I&D. No drainage and scabbed area. Skin: Intact & No Rashes, or excoriations Musculoskeletal: No joint swelling, non tender PLATFORM SUPERVISOR: Awake, and Ox3, Wound: Left wrist area dressed, status post I&D. Brenner Catheter: Yes IV Access: Yes I reviewed Medications. I reviewed Labs. US Abdomen Limited Study Final Result 1. Cholelithiasis without cholecystitis. 2. Hepatic steatosis. No focal liver lesion identified. Workstation ID: [id number] US Renal and Bladder Final Result Question borderline mild increased renal parenchymal echogenicity, can be seen in the setting of medical renal disease. No hydronephrosis. Bilateral renal cortical cysts. Diffuse bladder wall thickening. Bladder volume of 568 mL. Workstation ID: [id number] CT Upper Extremity Left Soft Tissue Without Contrast Final Result 1. There appears to be a moderate amount of diffuse soft tissue swelling along the dorsal aspect ofthe forearm and wrist extending into the hand to the level of the metacarpals. This may be secondary to a cellulitis, but this is nonspecific. 2. No CT evidence of a septic arthritis is seen. 3. 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 4. There are severe degenerative changes at the radiolunate articulation and there are CT findings compatible with the sequela of chronic avascular necrosis of the lunate. 5. Atherosclerotic vascular disease. Workstation ID: [id number] Echocardiogram Complete Final Result CT Pulmonary Arteries Final Result No evidence for acute pulmonary embolism. Ground-glass airspace opacities of the upper lobes suspicious for atypical inflammatory or infectious process. Reflux of contrast into the hepatic veins suggesting CHF. Workstation ID: [id number] XR Chest 1 View Final Result 1. Borderline cardiomegaly and stable elevation of the right hemidiaphragm. 2. Chronic changes noted bilaterally. Workstation ID: [id number] Laboratory and Additional Data Reviewed: Laboratory 02/02/25 4:24 PM Microbiology 02/02/25 4:24 PM Radiology 02/02/25 4:24 PM Medications 02/02/25 4:24 PM Lab Results Component Value Date WBC 15.60 (H) 02/02/2025 HGB 9.4 (L) 02/02/2025 HCT 29.4 (L) 02/02/2025 MCV 83.1 02/02/2025 PLT 174 02/02/2025 Lab Results Component Value Date GLUCOSE 50 (CL) 02/02/2025 CALCIUM 8.5 02/02/2025 NA 136 02/02/2025 K 4.4 02/02/2025 CL 96 (L) 02/02/2025 BUN 61 (H) 02/02/2025 CREATININE 1.95 (H) 02/02/2025 Problem List Items Addressed This Visit None Visit Diagnoses Septic shock (HCC) - Primary Relevant Medications piperacillin-tazobactam (ZOSYN) IVPB 4.5 g (premix) (Completed) penicillin G potassium 3 million unit/50 mL IVPB 3 Million Units Shortness of breath Elevated troponin DKA (diabetic ketoacidosis) (HCC) Relevant Medications insulin regular (Humulin R, Novolin R) injection 20 Units (Completed) insulin lispro (AdmeLOG,HumaLOG) injection 0-15 Units insulin lispro (AdmeLOG,HumaLOG) injection 0-30 Units insulin glargine (LANTUS) injection 10 Units (Completed) insulin glargine (LANTUS) injection 30 Units (Start on 02/02/2025 9:00 PM) Anemia of chronic disease I have taken time to review patient's information and having discussions with appropriate care teams, I appreciate seeing your patient, will continue to follow with you, and adjust with more information. Medical Decision Making: High This note is created with the assistance of a speech-recognition program. While intending to generate a document that actually reflects the content of the visit, the document can still have some errors including those of syntax and sound a- like substitutions which may escape proofreading. In such instances, actual meaning can be extrapolated by contextual derivation. [1] Current Facility-Administered Medications: aspirin EC tablet 81 mg, 81 mg, Oral, Daily, Oren Mireles DO, 81 mg at 02/02/25 0822 [Held by provider] bumetanide (BUMEX) injection 1 mg, 1 mg, Intravenous, Daily, Gina Reyna MD dextrose 5 % infusion, 50 mL/hr, Intravenous, Continuous, Cindy Herrera, JOHN, Stopped at 02/02/25 0800 [Held by provider] escitalopram oxalate (LEXAPRO) tablet 10 mg, 10 mg, Oral, Nightly, Oren Mireles, , 10 mg at 01/29/25 0101 [Held by provider] heparin (porcine) 25,000 unit/250 mL(100 unit/mL) in D5W infusion, 0-70 Units/kg/hr, Intravenous, Continuous, Noemi Andrade MD, Stopped at 02/01/25 1712 heparin bolus from bag 0-5,000 Units, 0-5,000 Units, Intravenous, Continuous PRN, Nevin Matthew MD, 3,000 Units at 01/31/25 0613 insulin glargine (LANTUS) injection 30 Units, 30 Units, Subcutaneous, BID, Noemi Andrade MD insulin lispro (AdmeLOG,HumaLOG) injection 0-15 Units, 0-15 Units, Subcutaneous, at bedtime ANDNotify physician, , , Until Discontinued, Dominga Muñiz CNP insulin lispro (AdmeLOG,HumaLOG) injection 0-30 Units, 0-30 Units, Subcutaneous, TID AC, Dominga Muñiz CNP, 6 Units at 02/02/25 1153 [Held by provider] lisinopriL (PRINIVIL,ZESTRIL) tablet 5 mg, 5 mg, Oral, Daily, Oren Mireles DO melatonin tablet 3 mg, 3 mg, Oral, Nightly PRN, Noemi Andrade MD metoprolol succinate (TOPROL-XL) 24 hr tablet 12.5 mg, 12.5 mg, Oral, BID, Luis A Gayle CNP, 12.5 mg at 02/02/25 0822 naloxone (NARCAN) injection 0.1 mg, 0.1 mg, Intravenous, PRN AND Notify physician, , , Until Discontinued AND naloxone (NARCAN) injection 0.4 mg, 0.4 mg, Intravenous, PRN, Noemi Andrade MD ondansetron (ZOFRAN) injection 4 mg, 4 mg, Intravenous, Q6H PRN, Dominga Muñiz CNP, 4 mg at01/29/25 1538 oxyCODONE (ROXICODONE) immediate release tablet 5 mg, 5 mg, Oral, Q4H PRN, Noemi Andrade MD, 5 mg at 02/02/25 1107 pantoprazole (PROTONIX) EC tablet 40 mg, 40 mg, Oral, BID, Noemi Andrade MD penicillin G potassium 3 million unit/50 mL IVPB 3 Million Units, 3 Million Units, Intravenous, Q4H, Dominga Muñiz CNP, Last Rate: 200 mL/hr at 02/02/25 1152, 3 Million Units at 02/02/25 1152 senna-docusate (SENNA-S) 8.6-50 mg per tablet 1 tablet, 1 tablet, Oral, BID, Kiza, Oren [place],DO, 1 tablet at 02/01/252044 [Held by provider] simvastatin (ZOCOR) tablet 40 mg, 40 mg, Oral, at bedtime, Kiza, Oren [place]iza, DO, 40 mg at 01/31/252039 Saline lock IV, , , Continuous AND sodium chloride (PF) (NS) flush 5 mL, 5 mL, Intravenous, PRNAND sodium chloride (PF) (NS) flush 5 mL, 5 mL, Intravenous, Q8H TEREZA, 5 mL at 02/02/25 0525 AND sodium chloride 0.9% (NS), 0-150 mL/hr, Intravenous, PRN, Kiza, Oren Niwem[place]iza, DO, Stopped at01/29/25 0855 * Gina Reyna MD - 02/02/2025 11:19 AM EDT [facility]Y [facility] Patient Name: Andrew Arnold Admit Date: 7200815 MR #: [id number] : 1945 Perpetual Assessment: Andrew Arnold is a 79 y.o. male on hospital day 5 admitted for We are asked to evaluate and manage . Impression and Plan: Acute kidney injury secondary to renal hypoperfusion and at risk for ATN. Cannot rule out a component of contrast-induced nephropathy. -On 01/28 in the emergency room he was found to have A-fib with RVR, shock, febrile with laboratory demonstrating DKA, DOMENICO with a creatinine of 1.6 Mg/DL, transaminitis, elevated troponin and he was subsequently admitted to the ICU. Underwent CT PE study 01/28. Hospital course complicated by shock requriing vasopressor, decreased biventricular function, bacteremia and urinary retention. - Echo shows LVEF 43%, reduced RV, pulmonary hypertension with RVSP of 61, moderate tricuspid valveregurgitation - Renal ultrasound 01/29 showed urine retention, no hydronephrosis. Brenner catheter placed 01/30 -Levophed discontinued 01/30 - Baseline creatinine less than 1.2 Mg/DL. Presented with a creatinine of 1.65 Mg/DL,peaked at 3.0Mg/DL and now 2 Mg/DL. Went into post ATN diuresis. Urine output slowing down. No need for IV fluids or diuretics today. 2. Anion gap metabolic acidosis: resolved -Due to DKA, DOMENICO,lactic acidosis -Diabetes and sepsis management per primary team and critical care - No need for renal replacement therapy 3. Hyperkalemia: resolved - In the setting of DOMENICO, shock metabolic acidosis -With diuresis potassium now within normal limits. - Continue Brenner given urinary retention 4 Shock: resolved - Likely mixed septic - Management of sepsis per primary team -Manage of systolic heart failure, RV dysfunction per cardiology 5. Sepsis - Left hand cellulitis with abscess. Sp left hand ganglion cyst I&D 01/26. . CT left arm diffusesoft tissue swelling along the dorsal aspect of the forearm/wrist, negative for septic arthritis. Patient will have I&D per orthopedics 02/01 - Blood culture showing group B streptococcus. - Left hand wound culture growing Streptococcus agalactiae (group B) - On penicillin G per infectious disease. - SHAHAB planned on Tuesday 6. Non-STEMI, A-fib with RVR, acute systolic heart failure with RV dysfunction and pulmonary hypertension -Per cardiology 7. Acute hypoxic respiratory failure - On supplemental oxygen. - Diuresis as above 8. Transaminitis - Likely due to shock - Abdominal ultrasound showed cholelithiasis without cholecystitis and hepatic steatosis Subjective: Patient reporting left hand pain. Otherwise doing well. We had a discussion about his past DOMENICO after his CABG in 2016 and current DOMENICO. Review of Systems: ROS otherwise reviewed and negative Physical Examination: Vitals: Vitals: 02/01/25 2322 02/02/25 0330 02/02/25 0721 02/02/25 1107 BP: 109/67 125/72 BP Location: Right arm Patient Position: Lying Pulse: 89 88 70 Resp: 16 15 15 Temp: 98.9 F (37.2 C) 98.2 F (36.8 C) TempSrc: Oral Oral SpO2: 98% 98% 100% Weight: Height: Intake/Output last 3 shifts: Intake/Output Summary (Last 24 hours) at 02/02/2025 1119 Last data filed at 02/02/2025 0900 Gross per 24 hour Intake 1786.41 ml Output 2975 ml Net -1188.59 ml I/O last 3 completed shifts: In: 2226.4 [P.O.:574; I.V.:952.4; IV Piggyback:700] Out: 6650 [Urine:6625; Blood:25] General: Age appropriate, NAD. HEENT: Normocephalic, no scleral icterus. Neck: No JVD. Heart: Regular, soft murmur present lungs: Distant breath sounds. On supplemental oxygen Abdomen: Soft, nontender, no supra-public fullness or tenderness. Extremities: Left hand wound dressing clean dry intact. No lower extremity edema Skin: Warm, dry, no rash, no bruise, no petichiae. Neuro: No myoclonus or tremor. Psych: Normal affect. : [x] Brenner present [] Brenner not present Results/Medications Reviewed 02/02/25 11:19 AM: Laboratory, Microbiology, Pathology, Radiology, Cardiology, Medications and Transcriptions reviewed Scheduled Meds: aspirin 81 mg Oral Daily [Held by provider] bumetanide 1 mg Intravenous Daily [Held by provider] escitalopram oxalate 10 mg Oral Nightly insulin glargine 30 Units Subcutaneous BID lispro insulin 0-15 Units Subcutaneous at bedtime insulin lispro 0-30 Units Subcutaneous TID AC [Held by provider] lisinopriL 5 mg Oral Daily metoprolol succinate 12.5 mg Oral BID pantoprazole 40 mg Oral Daily pencillin G potassium IVPB 3 Million Units Intravenous Q4H senna-docusate 1 tablet Oral BID [Held by provider] simvastatin 40 mg Oral at bedtime sodium chloride (PF) 5 mL Intravenous Q8H TEREZA Continuous Infusions: dextrose Stopped (02/02/25 0800) [Held by provider] heparin infusion (weight based dosing) Stopped (02/01/25 1712) heparin Results from last 7 days Lab Units 02/02/25 0342 02/01/25 0342 01/31/25 0426 WBC K/mcL 15.60* 17.75* 17.62* HGB g/dL 9.4* 9.8* 9.2* HCT % 29.4* 30.0* 28.8* PLT K/mcL 174 168 146* Results from last 7 days Lab Units 02/02/25 0945 02/02/25 0342 02/01/25 0951 02/01/25 0342 01/31/25 0426 01/29/25 0752 01/29/25 0458 01/28/25 2347 01/28/25 2338 SODIUM mmol/L -- 136 -- 133* 131* < > 133* < > 129* POTASSIUM mmol/L 4.4 3.7 4.2 3.7 4.2 < > 4.4 < > 4.6 CHLORIDE mmol/L -- 96* -- 94* 97* < > 100 < > 96* BICARB mmol/L -- 27 -- 25 19* < > 18* -- 13* BUN mg/dL -- 61* -- 74* 81* < > 43* -- 38* CREATININE mg/dL -- 1.95* -- 2.53* 3.06* < > 2.11* -- 1.86* EGFR mL/min/1.73 m2 -- 34* -- 25* 20* < > 31* -- 36* GLUCOSE mg/dL -- 50* -- 73 103* < > 282* < > 464* CALCIUM mg/dL -- 8.5 -- 8.6 8.0* < > 8.4 -- 8.2* MAGNESIUM mg/dL -- 2.3 2.2 -- 1.9 2.0 < > 2.1 -- 1.9 PHOSPHORUS mg/dL -- -- -- -- -- -- 3.9* -- 3.9* < > = values in this interval not displayed. Urinalysis Results from last 7 days Lab Units 01/30/25 1311 01/28/252048 COLOR, UR Brown* Yellow CLARITY, UR Cloudy* Clear SPEC GRAV 1.015 1.024 PH, UR 5.0 5.5 GLUCOSE, UR mg/dL Negative >=500* KETONES, UR mg/dL Negative 20* BILIRUBIN, UR Negative Negative UROBILINOGEN, UR mg/dL <2.0 <2.0 BLOOD, UR Large* Small* NITRITE, UR Negative Negative LEUK BARNEY, UR Trace* Trace* MUCUS, UR /lpf Rare Rare WBC, UR /hpf >180* 26* BACTERIA, UR /hpf Rare* Rare* HYALINE CASTS /lpf -- 3-5* Potential limitations of the note: Parts of this note were created by dictation via voice recognition software ([employer]). The completed note was reviewed for accuracy. However, there may be subtle errors that were not found during the review. If such errors are discovered, or if there are any questions or concerns regarding the recommendations/plan of care, please contact the author of the note prior to undertaking the recommendations/plan of care. * Dillan Cooper MD - 02/02/2025 9:29 AM EDT ATTENDING PHYSICIAN CANDIDA PATRICIO [facility] PRIMARY CARE PHYSICIAN VIVIEN FOREMAN MD ADMITTING PHYSICIAN OREN MIRELES DO CONSULTING PHYSICIAN DO Nava MAYSy at this point in time is postoperative day #1 irrigation and debridement of his left hand. The patient is awake, alert, oriented x3. He is pleasant. Dressing is removed. At this time, wound hasscant drainage. Flexor and extensor tendons are intact. Gram stain shows gram-positive cocci. We are awaiting final culture results. Currently on penicillin G. IMPRESSION Postoperative day 1, irrigation and debridement left hand. PLAN We will continue waiting on final culture results. Continue current antibiotics. D 02/02/2025 09:30 [id number] 02/02/2025 09:54 MCB/MODL * Noemi Andrade MD - 02/02/2025 8:17 AM EDT [facility] PROGRESS NOTE Patient Name: Andrew Arnold : 1945 Assessment and Plan Andrew Arnold is a 79 y.o. male patient of Vivien Foreman MD with history of CAD s/p CABG, atrial fibrillation on Eliquis, DM II, and mood disorder who presented to [facility] on[facility]25 with tachycardia and generalized malaise which started few hours after an outpatient lefthand abscess drainage. Left upper extremity cellulitis/abscess He is s/p left hand ganglion cyst I&D on 01/26. CT of the LUE on 01/27 showed moderate amount of diffuse soft tissue swelling along the dorsal aspect of the forearm and wrist extending into the hand to the level of the metacarpals. No evidence of septic arthritis. POD 1 for irrigation and debridement of the wound. Wound culture from 01/30 grew Streptococcus coagulation. Continue penicillin G. Concern for toxic shock syndrome Acute encephalopathy Septic Shock Bacteremia Sepsis was present on admission and felt to be due to soft tissue infection. He was in septic shock that required vasopressors Blood culture grew Streptococcus, likely source from the left hand.. Lactic acid 5.8 >> 2.9. He was started on vancomycin and Zosyn. Continue penicillin G, ID following. SHAHAB to rule out vegetation now postponed to 02/05. DM II with diabetes ketoacidosis Reported episodes of low BG overnight likely from poor oral intake. BG is now improved. Decrease dose of Lantus from 40 twice daily to 30 twice daily. Continue sliding scale Humalog. Elevated troponin Transaminitis Troponin 708 >> 2278 >> 721. Although likely demand ischemia from sepsis. Currently denying chest pain. He was evaluated by cardiology, was on heparin gtt now discontinued. Elevated LFTs likely from shock. LFTs appear to have plateaued and now declining. DOMENICO on chronic kidney disease Anion gap metabolic acidosis Baseline Cr around 1 Cr peaked at 3.06, now 1.95. He is nonoliguric, holding lisinopril. Renal ultrasound with no hydronephrosis, evidence of urinary retention. Evaluated by nephrology, continue to monitor. Hyperkalemia In the setting of DOMENICO with shock. K is improved to 4.4. Continue to monitor. Urinary retention Brenner catheter was placed on 01/30. He has good UOP. Voiding trial when more ambulatory. CAD status post CABG Atrial fibrillation with RVR Presented with A-fib with RVR to as high as 162. HR better controlled. Continue home aspirin, statin, beta-julia. Holding home lisinopril due to shock. Restart Eliquis soon. Mood disorder Lexapro currently on hold. Resolved acute medical issues Discharge Planning Patient Medically Ready for Discharge: no Patient requires continued hospitalization due to: Ongoing management of septic shock and left handinfection. Expected Date of Discharge: 02/02. Expected Discharge Location: Home Quality Measures DVT Prophylaxis: heparin gtt Brenner Catheter: absent Code Status Full Code - Unverified Primary Contact Information Subjective Underwent irrigation and debridement of the left hand on 02/01. Wound was bleeding. Due to being on heparin, now resolved. He feels well, pain is controlled. Nursing has no pressing concerns. Objective BP 125/72 (BP Location: Right arm, Patient Position: Lying) Pulse 70 Temp 98.2 F (36.8 C) (Oral) Resp 15 Ht 5' 7 Wt 105.6 kg (232 lb 12.9 oz) SpO2 100% BMI 36.46 kg/m Physical Examination General Appearance: Comfortable in bed, awake and alert, no acute distress. BAD RIVER BAND. Family members present. HEENT: Head- normocephalic; Eyes- EOMI, sclera anicteric; Throat- mucous membranes dry. Cardiovascular: regular rate and rhythm; normal S1, S2; no murmurs, rubs, clicks or gallops; peripheral edema 1+, LUE is swollen with tenderness in the dorsum of the left hand, swollen, purulent drainage. Respiratory: lungs clear to auscultation; without wheezes, rales or rhonchi; on room air Abdomen: Full and soft, positive bowel sounds, no G/R. Neurological: oriented x 3; normal speech; no focal findings or movement disorder noted Musculoskeletal: no significant deformity or tenderness to palpation Skin: normal coloration, warm and dry. Psych: normal mood and affect, no agitation. * Kunal Norman MD - 02/01/2025 5:13 PM EDT Patient Name: Andrew Arnold Admit Date: [id number] MR #: [id number] : 1945 Physicians: Vivien Foreman MD (Family); No ref. provider found (Referring) Assessment: Patient with 1. Septic shock, 2. Suspicion for pneumonia, 3. Respiratory failure, 4. Leukocytosis. 5. Left upper extremity cellulitis/fasciitis 6. Bacteremia with Streptococcus agalactia Plan. Continue patient on current therapy Status post discontinue IV clindamycin Patient on IV penicillin G Patient status post DC IV Zosyn. Patient on IV vancomycin DC IV vancomycin if negative MRSA. Keep a close eye on the wound area and also on the kidney function I appreciate orthopedic evaluation, scheduling for I&D. Follow-up labs Reviewed blood culture with Streptococcus agalactiae in 2 sets of blood culture. I reviewed repeat blood cultures with no growth. I reviewed urinalysis with large blood, trace leuk esterase, WBC 180 with rare bacteria. Reviewed CT of the pulmonary artery, with groundglass opacity of the upper lobe suspicious for atypical inflammatory infectious process, I reviewed chest x-ray with with borderline cardiomegaly I reviewed echocardiogram, with ejection fraction of 43%, with post aortic valve replacement noted bioprosthetic valve. Cannot exclude mobile density on the leaflets due to image quality. I reviewed Renal ultrasound with no hydronephrosis, bilateral renal cysts and diffuse bladder wall thickening. Reviewed x-ray of the left wrist, with degenerative disease and deformity noted. I reviewed CT of the left upper extremity, with moderate amount of diffuse soft tissue swellings,May be secondary to cellulitis, no CT evidence of septic arthritis, severe degenerative changes and chronic avascular necrosis of the lunate Continue hydration and Patient off pressors Will continue to follow with you. Reviewed the CRP of 311. Aspiration precaution recommended. I reviewed abdominal ultrasound, with cholelithiasis without cholecystitis. On discharge: To be determined, workup in progress. Subjective: Today patient reevaluated, with no new symptoms, no fever or chills. Patient scheduled for I&D of right hand.Tmax of 99.3. Saturating 98% on 3 L of nasal cannula. Exam: PACU Vitals 02/01/25 1513 BP: 102/63 Pulse: 79 Resp: Temp: 98.3 F (36.8 C) SpO2: 98% Allergies: Pioglitazone Current Medications[1] PMH/PSH/SH/FH reviewed, no change : Review of Systems: All systems were reviewed no change: Medications Reviewed. Allergies: Pioglitazone Chart Reviewed. I reviewed Medications. I reviewed Labs. US Abdomen Limited Study Final Result 1. Cholelithiasis without cholecystitis. 2. Hepatic steatosis. No focal liver lesion identified. Workstation ID: [id number] US Renal and Bladder Final Result Question borderline mild increased renal parenchymal echogenicity, can be seen in the setting of medical renal disease. No hydronephrosis. Bilateral renal cortical cysts. Diffuse bladder wall thickening. Bladder volume of 568 mL. Workstation ID: [id number] CT Upper Extremity Left Soft Tissue Without Contrast Final Result 1. There appears to be a moderate amount of diffuse soft tissue swelling along the dorsal aspect ofthe forearm and wrist extending into the hand to the level of the metacarpals. This may be secondary to a cellulitis, but this is nonspecific. 2. No CT evidence of a septic arthritis is seen. 3. 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 4. There are severe degenerative changes at the radiolunate articulation and there are CT findings compatible with the sequela of chronic avascular necrosis of the lunate. 5. Atherosclerotic vascular disease. Workstation ID: [id number] Echocardiogram Complete Final Result CT Pulmonary Arteries Final Result No evidence for acute pulmonary embolism. Ground-glass airspace opacities of the upper lobes suspicious for atypical inflammatory or infectious process. Reflux of contrast into the hepatic veins suggesting CHF. Workstation ID: [id number] XR Chest 1 View Final Result 1. Borderline cardiomegaly and stable elevation of the right hemidiaphragm. 2. Chronic changes noted bilaterally. Workstation ID: [id number] Laboratory and Additional Data Reviewed: Laboratory 02/01/25 5:13 PM Microbiology 02/01/25 5:13 PM Radiology 02/01/25 5:13 PM Medications 02/01/25 5:13 PM Lab Results Component Value Date WBC 17.75 (H) 02/01/2025 HGB 9.8 (L) 02/01/2025 HCT 30.0 (L) 02/01/2025 MCV 81.1 02/01/2025 PLT 168 02/01/2025 Lab Results Component Value Date GLUCOSE 73 02/01/2025 CALCIUM 8.6 02/01/2025 NA 133 (L) 02/01/2025 K 4.2 02/01/2025 CL 94 (L) 02/01/2025 BUN 74 (H) 02/01/2025 CREATININE 2.53 (H) 02/01/2025 Problem List Items Addressed This Visit None Visit Diagnoses Septic shock (HCC) - Primary Relevant Medications piperacillin-tazobactam (ZOSYN) IVPB 4.5 g (premix) (Completed) penicillin G potassium 3 million unit/50 mL IVPB 3 Million Units Shortness of breath Elevated troponin DKA (diabetic ketoacidosis) (HCC) Relevant Medications insulin regular (Humulin R, Novolin R) injection 20 Units (Completed) insulin glargine (LANTUS) injection 40 Units insulin lispro (AdmeLOG,HumaLOG) injection 0-15 Units insulin lispro (AdmeLOG,HumaLOG) injection 0-30 Units Anemia of chronic disease I have taken time to review patient's information and having discussions with appropriate care teams, I appreciate seeing your patient, will continue to follow with you, and adjust with more information. Medical Decision Making: High This note is created with the assistance of a speech-recognition program. While intending to generate a document that actually reflects the content of the visit, the document can still have some errors including those of syntax and sound a- like substitutions which may escape proofreading. In such instances, actual meaning can be extrapolated by contextual derivation. [1] Current Facility-Administered Medications: aspirin EC tablet 81 mg, 81 mg, Oral, Daily, Oren Mireles DO, 81 mg at 02/01/25 0849 [Held by provider] bumetanide (BUMEX) injection 1 mg, 1 mg, Intravenous, Daily, Gina Reyna MD [Held by provider] escitalopram oxalate (LEXAPRO) tablet 10 mg, 10 mg, Oral, Nightly, Oren Mireles DO, 10 mg at 01/29/25 0101 [Held by provider] heparin (porcine) 25,000 unit/250 mL(100 unit/mL) in D5W infusion, 0-70 Units/kg/hr, Intravenous, Continuous, Noemi Andrade MD, Stopped at 02/01/25 1712 heparin bolus from bag 0-5,000 Units, 0-5,000 Units, Intravenous, Continuous PRN, Nevin Matthew MD, 3,000 Units at 01/31/25 0613 insulin glargine (LANTUS) injection 40 Units, 40 Units, Subcutaneous, BID, Dominga Muñiz CNP, 20 Units at 02/01/25 1046 insulin lispro (AdmeLOG,HumaLOG) injection 0-15 Units, 0-15 Units, Subcutaneous, at bedtime ANDNotify physician, , , Until Discontinued, Dominga Muñiz CNP insulin lispro (AdmeLOG,HumaLOG) injection 0-30 Units, 0-30 Units, Subcutaneous, TID AC, Dominga Muñiz CNP, 4 Units at 01/31/25 1702 [Held by provider] lisinopriL (PRINIVIL,ZESTRIL) tablet 5 mg, 5 mg, Oral, Daily, Oren Mireles DO melatonin tablet 3 mg, 3 mg, Oral, Nightly PRN, Noemi Andrade MD metoprolol succinate (TOPROL-XL) 24 hr tablet 12.5 mg, 12.5 mg, Oral, BID, Luis A Gayle CNP naloxone (NARCAN) injection 0.1 mg, 0.1 mg, Intravenous, PRN AND Notify physician, , , Until Discontinued AND naloxone (NARCAN) injection 0.4 mg, 0.4 mg, Intravenous, PRN, Noemi Andrade MD ondansetron (ZOFRAN) injection 4 mg, 4 mg, Intravenous, Q6H PRN, Dominga Muñiz CNP, 4 mg at01/29/25 1538 oxyCODONE (ROXICODONE) immediate release tablet 5 mg, 5 mg, Oral, Q4H PRN, Noemi Andrade MD, 5 mg at 02/01/25 0849 pantoprazole (PROTONIX) EC tablet 40 mg, 40 mg, Oral, Daily, Dominga Muñiz CNP, 40 mg at 02/01/25 0848 penicillin G potassium 3 million unit/50 mL IVPB 3 Million Units, 3 Million Units, Intravenous, Q4H, Dominga Muñiz CNP, Last Rate: 200 mL/hr at 02/01/25 1532, 3 Million Units at 02/01/25 1532 senna-docusate (SENNA-S) 8.6-50 mg per tablet 1 tablet, 1 tablet, Oral, BID, Oren Mireles,DO, 1 tablet at 01/30/25 0913 [Held by provider] simvastatin (ZOCOR) tablet 40 mg, 40 mg, Oral, at bedtime, Kiza, Oren Niwemukiza, DO, 40 mg at 01/31/25 2040 Saline lock IV, , , Continuous AND sodium chloride (PF) (NS) flush 5 mL, 5 mL, Intravenous, PRNAND sodium chloride (PF) (NS) flush 5 mL, 5 mL, Intravenous, Q8H TEREZA, 5 mL at 02/01/25 0600 AND sodium chloride 0.9% (NS), 0-150 mL/hr, Intravenous, PRN, Kiza, Oren Niwemukiza, DO, Stopped at01/29/25 0855 * Emelina Soto RN - 02/01/2025 5:02 PM EDT This RN came back from lunch and was told by Ariana HEDRICK that the pt hand had saturated through surgical dressing significantly and into the chux pad under hand. The wound then had more gauze, kyrlex, abd pads, and patricia wrap placed. Shortly after Natalie CALLAHAN told this RN and Ariana that the new dressing was already saturated. This RN contacted Dr Cooper and had to leave a message when trying to get in contact with his nurse asking for a call back. Stat RN, Dr Hartman, Desk Lieutenant [facility] messaged aboutdressing saturating dressing again. Heparin put on hold by chief information security officer [facility] and this RN and Ariana RN called Dr Cooper's cell phone to get instruction on dressing care. Per Dr Cooper, nursing is to cover with more gauze, kyrlex, ABD, and Patricia wrap and to make it look like a club. Dr Cooper insisted that the bleeding will stop this way. Heparin holding, ok with [facility] and Dr Cooper. Pressure was held by Stat RN for about 10 minutes before applying more to the dressing. * Gina Reyna MD - 02/01/2025 2:01 PM EDT [facility]ROLOGY [facility] Patient Name: Andrew Arnold Admit Date: [id number] MR #: [id number] : 1945 Perpetual Assessment: Andrew Arnold is a 79 y.o. male on hospital day 4 admitted for We are asked to evaluate and manage . Impression and Plan: Acute kidney injury secondary to renal hypoperfusion and at risk for ATN. Cannot rule out a component of contrast-induced nephropathy. -On 01/28 in the emergency room he was found to have A-fib with RVR, shock, febrile with laboratory demonstrating DKA, DOMENICO with a creatinine of 1.6 Mg/DL, transaminitis, elevated troponin and he was subsequently admitted to the ICU. Underwent CT PE study 01/28. Hospital course complicated by shock requriing vasopressor, decreased biventricular function, bacteremia and urinary retention. - Echo shows LVEF 43%, reduced RV, pulmonary hypertension with RVSP of 61, moderate tricuspid valveregurgitation - Renal ultrasound 01/29 showed urine retention, no hydronephrosis. Brenner catheter placed 01/30 -Levophed discontinued 01/30 - Baseline creatinine less than 1.2 Mg/DL. Presented with a creatinine of 1.65 Mg/DL,peaked at 3.0Mg/DL and now 2.5 Mg/DL polyuric. Likely in post ATN diuresis. Holding diuretic therapy today due to this. -cont brenner - There is no acute need for renal replacement therapy at this time. Of note patient is agreeable to HD if ever needed. 2. Anion gap metabolic acidosis: resolved -Due to DKA, DOMENICO,lactic acidosis -Diabetes and sepsis management per primary team and critical care - No need for renal replacement therapy 3. Hyperkalemia: resolved - In the setting of DOMENICO, shock metabolic acidosis -With diuresis potassium now within normal limits. - Continue Brenner given urinary retention 4 Shock: resolved - Likely mixed septic - Management of sepsis per primary team -Manage of systolic heart failure, RV dysfunction per cardiology 5. Sepsis - Left hand cellulitis with abscess. Sp left hand ganglion cyst I&D 01/26. . CT left arm diffusesoft tissue swelling along the dorsal aspect of the forearm/wrist, negative for septic arthritis. Patient will have I&D per orthopedics today. - Blood culture showing group B streptococcus. - Left hand wound culture growing Streptococcus agalactiae (group B) - On penicillin G per infectious disease. - SHAHAB planned on Tuesday 6. Non-STEMI, A-fib with RVR, acute systolic heart failure with RV dysfunction and pulmonary hypertension -Per cardiology 7. Acute hypoxic respiratory failure - On supplemental oxygen. - Diuresis as above 8. Transaminitis - Likely due to shock - Abdominal ultrasound showed cholelithiasis without cholecystitis and hepatic steatosis Subjective: Transferred out of the ICU. Patient reports he is having surgery on his hand today. Review of Systems: ROS otherwise reviewed and negative Physical Examination: Vitals: Vitals: 02/01/25 1100 02/01/25 1131 02/01/25 1138 02/01/25 1344 BP: (!) 117/50 115/75 BP Location: Patient Position: Pulse: 86 95 89 Resp: 18 18 Temp: TempSrc: Infrared SpO2: 95% 91% 92% Weight: Height: Intake/Output last 3 shifts: Intake/Output Summary (Last 24 hours) at 02/01/2025 1401 Last data filed at 02/01/2025 1348 Gross per 24 hour Intake 730 ml Output 5400 ml Net -4670 ml I/O last 3 completed shifts: In: 438.5 [I.V.:438.5] Out: 9775 [Urine:9775] General: Age appropriate, NAD. HEENT: Normocephalic, no scleral icterus. Neck: No JVD. Heart: Regular, soft murmur present lungs: Distant breath sounds. On supplemental oxygen Abdomen: Soft, nontender, no supra-public fullness or tenderness. Extremities: Left hand wound dressing clean dry intact. No lower extremity edema Skin: Warm, dry, no rash, no bruise, no petichiae. Neuro: No myoclonus or tremor. Psych: Normal affect. : [x] Brenner present [] Brenner not present Results/Medications Reviewed 02/01/25 2:01 PM: Laboratory, Microbiology, Pathology, Radiology, Cardiology, Medications and Transcriptions reviewed Scheduled Meds: [SEP Hold] aspirin 81 mg Oral Daily [Held by provider] bumetanide 1 mg Intravenous Daily [Held by provider] escitalopram oxalate 10 mg Oral Nightly [SEP Hold] insulin glargine 40 Units Subcutaneous BID [SEP Hold] lispro insulin 0-15 Units Subcutaneous at bedtime [SEP Hold] insulin lispro 0-30 Units Subcutaneous TID AC [Held by provider] lisinopriL 5 mg Oral Daily metoprolol succinate 12.5 mg Oral BID [SEP Hold] pantoprazole 40 mg Oral Daily [SEP Hold] pencillin G potassium IVPB 3 Million Units Intravenous Q4H [SEP Hold] senna-docusate 1 tablet Oral BID [SEP Hold] simvastatin 40 mg Oral at bedtime [SEP Hold] sodium chloride (PF) 5 mL Intravenous Q8H TEREZA Continuous Infusions: [Held by provider] heparin infusion (weight based dosing) Stopped (02/01/25 1028) [SEP Hold] heparin Results from last 7 days Lab Units 02/01/25 0342 01/31/25 0426 01/30/25 0821 01/30/25 0220 WBC K/mcL 17.75* 17.62* -- 20.48* HGB g/dL 9.8* 9.2* -- 10.2* HEMOGLOBIN BG g/dL -- -- 10.4* -- HEMATOCRIT, CALCULATED % -- -- 32.0* -- HCT % 30.0* 28.8* -- 31.6* PLT K/mcL 168 146* -- 154 Results from last 7 days Lab Units 02/01/25 0951 02/01/25 0342 01/31/25 0426 01/30/25 1439 01/30/25 0220 01/29/25 0752 01/29/25 0458 01/28/25 2347 01/28/25 2338 SODIUM mmol/L -- 133* 131* 131* 133* < > 133* < > 129* POTASSIUM mmol/L 4.2 3.7 4.2 5.5* 5.4* < > 4.4 < > 4.6 CHLORIDE mmol/L -- 94* 97* 98 100 < > 100 < > 96* BICARB mmol/L -- 19* 18* 16* < > 18* -- 13* BUN mg/dL -- 74* 81* 77* 64* < > 43* -- 38* CREATININE mg/dL -- 2.53* 3.06* 3.02* 2.83* < > 2.11* -- 1.86* EGFR mL/min/1.73 m2 -- 25* 20* 20* 22* < > 31* -- 36* GLUCOSE mg/dL -- 73 103* 202* 150* < > 282* < > 464* CALCIUM mg/dL -- 8.6 8.0* 8.0* 8.2* < > 8.4 -- 8.2* MAGNESIUM mg/dL -- 1.9 2.0 -- 2.0 < > 2.1 -- 1.9 PHOSPHORUS mg/dL -- -- -- -- -- -- 3.9* -- 3.9* < > = values in this interval not displayed. Urinalysis Results from last 7 days Lab Units 01/30/25 1311 01/28/25 2049 COLOR, UR Brown* Yellow CLARITY, UR Cloudy* Clear SPEC GRAV 1.015 1.024 PH, UR 5.0 5.5 GLUCOSE, UR mg/dL Negative >=500* KETONES, UR mg/dL Negative 20* BILIRUBIN, UR Negative Negative UROBILINOGEN, UR mg/dL <2.0 <2.0 BLOOD, UR Large* Small* NITRITE, UR Negative Negative LEUK BARNEY, UR Trace* Trace* MUCUS, UR /lpf Rare Rare WBC, UR /hpf >180* 26* BACTERIA, UR /hpf Rare* Rare* HYALINE CASTS /lpf -- 3-5* Potential limitations of the note: Parts of this note were created by dictation via voice recognition software ([employer]). The completed note was reviewed for accuracy. However, there may be subtle errors that were not found during the review. If such errors are discovered, or if there are any questions or concerns regarding the recommendations/plan of care, please contact the author of the note prior to undertaking the recommendations/plan of care. 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 Who presented with multi organ damage including DOMENICO lactic acidosis elevated troponin consistent with septic shock. Elevated troponin: Likely demand ischemia. Cannot rule out a primary plaque rupture definitely. does not have symptoms suggestive of acute coronary syndrome. 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 Now with Brenner catheter, -8.1 L overnight with an additional -4.5 L since admission. Creatinine trending down Bumex currently on hold per nephrology Strict intake and output, daily weights SHAHAB tentatively Sunday 02/04, n.p.o. Tuesday night at midnight Toprol-XL 12.5 mg twice daily Insulin-dependent diabetes Per primary team Septic shockGPC bacteremia No longer on Levophed Plan per primary team Patient taken to the OR by orthopedic surgery today for I&D of the left lower extremity. Permanent A-fib Currently on heparin drip Will need Eliquis restarted prior to discharge Toprol XL 12.5 mg twice daily Subjective Patient seen at bedside continues to have left arm pain. He denies chest pain, palpitations, dizziness or shortness of breath ECG 12 Lead Final Result by Interface, Lab Results In [place] [facility] (01/30/2025 1116) Echocardiogram Complete Final Result by Jennifer Cintron MD (01/29/2025 1455) Echocardiogram complete w contrast Final Result by Jennifer Cintron MD (03/22/2023 1601) Stress test only, exercise Final Result by Nik Hoskins DO (02/13/2016 0900) Cardiac Catheterization Final Result by Adilson Stone MD (12/25/2021 1253) Review of Systems: The following system(s) were reviewed and negative. Pertinent positive and negative findings are noted in the HPI. [x] Const [x] Eyes [x] ENT [x] Resp [] CV [x] GI [x] [x] Neuro [x] Musc [x] Skin [x] Psych [x] Endo [x] Allergy [x] Heme/Lymph Current Medications[1] Objective: Physical Examination: BP (!) 117/50 Pulse 95 Temp 98.6 F (37 C) (Axillary) Resp 18 Ht 5' 7 Wt 105.6 kg (232 lb12.9 oz) SpO2 91% BMI 36.46 kg/m Constitutional: Alert, not in distress.? Eyes: Conjunctivae/corneas clear. Lungs: Clear to auscultation, no wheezes, rales or rhonchi. Cardiovascular: Controlled rate and regular rhythm, soft systolic murmur best heard at the base, nopedal edema. Abdomen: Soft, nontender with normal active bowel sounds Skin: Normal coloration and turgor; no rashes or lesions noted to exposed skin. Dressing noted to left forearm, swelling of left hand Musculoskeletal: Moves all extremities Psych: Oriented to time, person, and place; appropriate mood. Lab Results Component Value Date CHOL 110 12/02/2023 LDLCALC 47 12/02/2023 TRIG 38 12/02/2023 HDL 55 12/02/2023 Serum creatinine: 2.53 mg/dL (H) 02/01/25 0342 Estimated creatinine clearance: 21.8 mL/min (A) Please excuse any typographical errors as dictation software was used Luis A Gayle MSN, CABLE SWAGER, ANP-C [1] Current Facility-Administered Medications Medication Dose Route Frequency Provider Last Rate Last Admin [SEP Hold] aspirin EC tablet 81 mg 81 mg Oral Daily Oren Mireles DO 81 mg at 02/01/25 0849 [Held by provider] bumetanide (BUMEX) injection 1 mg 1 mg Intravenous Daily Gina Reyna MD [Held by provider] escitalopram oxalate (LEXAPRO) tablet 10 mg 10 mg Oral Nightly Oren Mireles DO 10 mg at 01/29/25 0101 [Held by provider] heparin (porcine) 25,000 unit/250 mL(100 unit/mL) in D5W infusion 0-70 Units/kg/hr Intravenous Continuous Nevin Matthew MD Stopped at 02/01/25 1028 [SEP Hold] heparin bolus from bag 0-5,000 Units 0-5,000 Units Intravenous Continuous PRN Nevin Matthew MD 3,000 Units at 01/31/25 0613 [SEP Hold] insulin glargine (LANTUS) injection 40 Units 40 Units Subcutaneous BID Dominga Muñiz CNP 20 Units at 02/01/25 1046 [SEP Hold] insulin lispro (AdmeLOG,HumaLOG) injection 0-15 Units 0-15 Units Subcutaneous at bedtimeSeymichael e. debakey department of veterans affairs medical centerDominga CNP [SEP Hold] insulin lispro (AdmeLOG,HumaLOG) injection 0-30 Units 0-30 Units Subcutaneous TID AC Dominga Muñiz CNP 4 Units at 01/31/25 1702 [Held by provider] lisinopriL (PRINIVIL,ZESTRIL) tablet 5 mg 5 mg Oral Daily Oren MirelesDO [SEP Hold] melatonin tablet 3 mg 3 mg Oral Nightly PRN Noemi Andrade MD [Held by provider] metoprolol succinate (TOPROL-XL) 24 hr tablet 25 mg 25 mg Oral Daily Oren Mireles, DO [SEP Hold] naloxone (NARCAN) injection 0.1 mg 0.1 mg Intravenous PRN Noemi Andrade MD And [SEP Hold] naloxone (NARCAN) injection 0.4 mg 0.4 mg Intravenous PRN Noemi Andrade MD [SEP Hold] ondansetron (ZOFRAN) injection 4 mg 4 mg Intravenous Q6H PRN Dominga Muñiz EXCELLENCE MANAGER 4mg at 01/29/25 1538 [SEP Hold] oxyCODONE (ROXICODONE) immediate release tablet 5 mg 5 mg Oral Q4H PRN Noemi Andrade MD 5 mg at 02/01/25 0849 [SEP Hold] pantoprazole (PROTONIX) EC tablet 40 mg 40 mg Oral Daily Dominga Muñiz EXCELLENCE MANAGER 40 mgat 02/01/25 0848 [SEP Hold] penicillin G potassium 3 million unit/50 mL IVPB 3 Million Units 3 Million Units Intravenous Q4H Dominga Muñiz EXCELLENCE MANAGER 200 mL/hr at 02/01/25 0927 3 Million Units at 02/01/25 0927 [SEP Hold] senna-docusate (SENNA-S) 8.6-50 mg per tablet 1 tablet 1 tablet Oral BID Oren Mireles, DO 1 tablet at 01/30/25 0913 [SEP Hold] simvastatin (ZOCOR) tablet 40 mg 40 mg Oral at bedtime Oren Mireles, DO 40 mg at 01/31/25 2040 [SEP Hold] sodium chloride (PF) (NS) flush 5 mL 5 mL Intravenous PRN Oren Mirelesza, DO And [SEP Hold] sodium chloride (PF) (NS) flush 5 mL 5 mL Intravenous Q8H TEREZA Oren Mireles, DO 5 mL at 02/01/25 0600 And [SEP Hold] sodium chloride 0.9% (NS) 0-150 mL/hr Intravenous PRN Oren Mireles, DO Stopped at 01/29/25 0855 * Emelina Soto RN - 02/01/2025 11:21 AM EDT Pt had some dark, tarry stool this morning. Dr Andrade aware. HGB improved from yesterday. Will check HGB tomorrow. * Dillan Cooper MD - 02/01/2025 9:44 AM EDT ATTENDING PHYSICIAN [facility] PRIMARY CARE PHYSICIAN VIVIEN FOREMAN MD ADMITTING PHYSICIAN OREN MIRELES DO CONSULTING PHYSICIAN OREN MIRELES DO Andrew is an 79-year-old patient who I saw in consultation for his left hand. Unfortunately, infection appears to be worsening despite suture removal. He is getting more extensive cellulitis. At this time, we are going to proceed forward with irrigation and debridement of the left hand. D 02/01/2025 09:45 [id number] 02/01/2025 10:12 MCB/MODL * Noemi Andrade MD - 02/01/2025 8:48 AM EDT [facility] PROGRESS NOTE Patient Name: Andrew Arnold : 1945 Assessment and Plan Andrew Arnold is a 79 y.o. male patient of Vivien Foreman MD with history of CAD s/p CABG, atrial fibrillation on Eliquis, DM II, and mood disorder who presented to [facility] on01/28/2025 with tachycardia and generalized malaise which started few hours after an outpatient lefthand abscess drainage. Left upper extremity cellulitis/abscess He is s/p left hand ganglion cyst I&D on 01/26. CT of the LUE on 01/27 showed moderate amount of diffuse soft tissue swelling along the dorsal aspect of the forearm and wrist extending into the hand to the level of the metacarpals. No evidence of septic arthritis. Continue current antibiotics. Expect OR incision and drainage with culture today. Concern for toxic shock syndrome Acute encephalopathy Septic Shock Sepsis was present on admission and felt to be due to soft tissue infection. Was in septic shock requiring vasopressors, now off pressors. Blood culture growing Streptococcus. Lactic acid 5.8 >> 2.9. He was started on vancomycin and Zosyn. Continue penicillin G, ID following. SHAHAB to rule out vegetation. DM II with diabetes ketoacidosis Blood glucose 528. BHB 4.2. pH 7.3. UA positive for ketones BG is better controlled, hold on insulin gtt., now on Lantus. Continue to monitor. Elevated troponin Transaminitis Troponin 708. Currently denying chest pain. Interval rise in Trop T 247 >> 1046 >> 2216. Although likely demand ischemia from sepsis. Appreciate Cardiology input. Continue heparin gtt. AST 139. ALT 102, now 1591/1419 INR 2.1. Elevated LFTs likely due to shock. Continue to monitor, expect LFT to plateau on decline soon. DOMENICO on chronic kidney disease Anion gap metabolic acidosis Baseline Cr around 1 Cr peaked at 3.06, now 2.53. He is nonoliguric, holding lisinopril. Renal ultrasound with no hydronephrosis, evidence of urinary retention. Evaluated by nephrology, continue to monitor. May need renal replacement therapy if worsening acidosis and renal function. Hyperkalemia In the setting of DOMENICO with shock. K is improved to 3.7. Continue to monitor. Urinary retention Brenner catheter was placed on 01/30. Robust UOP. Continue to monitor. CAD status post CABG Atrial fibrillation with RVR Presented with A-fib with RVR to as high as 162. Currently rate controlled. Most recent heart rate 97 Continue home aspirin, statin, beta-julia. Holding home lisinopril due to shock. Holding home Eliquis for heparin gtt. Mood disorder Lexapro currently on hold. Resolved acute medical issues Discharge Planning Patient Medically Ready for Discharge: no Patient requires continued hospitalization due to: Ongoing management of septic shock and left handinfection. Expected Date of Discharge: 02/02. Expected Discharge Location: Home Quality Measures DVT Prophylaxis: heparin gtt Brenner Catheter: absent Code Status Full Code - Unverified Primary Contact Information Subjective Seen and examined at bedside, resting in bed, awake and alert, no acute distress. Dorsum of the left hand is actively draining pus and exquisitely tender to palpation. Per nursing patient was seen byOrtho this a.m. and plan is for incision and drainage. Objective BP 113/68 Pulse 80 Temp 98.6 F (37 C) (Axillary) Resp 15 Ht 5' 7 Wt 105.6 kg (232 lb 12.9 oz) SpO2 94% BMI 36.46 kg/m Physical Examination General Appearance: Supine in bed, awake and alert, [employer] BAND, no acute distress. Family members present. HEENT: Head- normocephalic; Eyes- EOMI, sclera anicteric; Throat- mucous membranes dry. Cardiovascular: regular rate and rhythm; normal S1, S2; no murmurs, rubs, clicks or gallops; peripheral edema 1+, LUE is swollen with tenderness in the dorsum of the left hand, swollen, purulent drainage. Respiratory: lungs clear to auscultation; without wheezes, rales or rhonchi; on room air Abdomen: Full and soft, positive bowel sounds, no G/R. Neurological: oriented x 3; normal speech; no focal findings or movement disorder noted Musculoskeletal: no significant deformity or tenderness to palpation Skin: normal coloration, warm and dry. Psych: normal mood and affect, no agitation. * Gina Reyna MD - 01/31/2025 2:43 PM EDT [facility]ROLOGY [facility] Patient Name: Andrew Arnold Admit Date: [id number] MR #: [id number] : 1945 Perpetual Assessment: Andrew Arnold is a 79 y.o. male on hospital day 3 admitted for We are asked to evaluate and manage . Impression and Plan: Acute kidney injury secondary to renal hypoperfusion and at risk for ATN. Cannot rule out a component of contrast-induced nephropathy. -On 01/28 in the emergency room he was found to have A-fib with RVR, shock, febrile with laboratory demonstrating DKA, DOMENICO with a creatinine of 1.6 Mg/DL, transaminitis, elevated troponin and he was subsequently admitted to the ICU. Underwent CT PE study 01/28. Now has decreased biventricular function, bacteremia and urinary retention. - Baseline creatinine less than 1.2 Mg/DL. Presented with a creatinine of 1.65 Mg/DL and now 3.0Mg/DL. - Echo shows LVEF 43%, reduced RV, pulmonary hypertension with RVSP of 61, moderate tricuspid valveregurgitation - Renal ultrasound 01/29 showed urine retention, no hydronephrosis. Brenner catheter placed 01/30 -Levophed discontinued 01/30 - The worsening of patient's renal function is not surprising since he likely has ATN and is in themaintenance phase - There is no acute need for renal replacement therapy at this time. Patient is having robust urine output on IV Bumex 1 mg twice daily. Yesterday he had 3.125 mL of urine output. This morning he has had 3.8 mL of urine output. Subsequent hold the evening dose of Bumex and reevaluate tomorrow. Monitor for post ATN diuresis Of note patient is agreeable to HD if ever needed. 2. Anion gap metabolic acidosis -Due to DKA, DOMENICO,lactic acidosis -Diabetes and sepsis management per primary team and critical care - No need for renal replacement therapy 3. Hyperkalemia - In the setting of DOMENICO, shock metabolic acidosis -With diuresis as well, potassium now within normal limits. Will discontinue Lokelma and adjust Bumex as above - Continue Brenner given urinary retention 4 Shock - Likely mixed cardiogenic, septic -Diuretics as above - Management of sepsis per critical care -Manage of systolic heart failure, RV dysfunction per cardiology 5. Sepsis - Left hand cellulitis with abscess. Sp left hand ganglion cyst I&D 01/26. . CT left arm diffusesoft tissue swelling along the dorsal aspect of the forearm/wrist, negative for septic arthritis. Possible future I&D per ortho. - Blood culture showing group B streptococcus. - Left hand wound culture pending. - Urine culture pending - On penicillin G per infectious disease. - SHAHAB planned 6. Non-STEMI, A-fib with RVR, acute systolic heart failure with RV dysfunction and pulmonary hypertension -Per cardiology 7. Acute hypoxic respiratory failure - On supplemental oxygen. - Diuresis as above 8. Transaminitis - Likely due to shock - Abdominal ultrasound showed cholelithiasis without cholecystitis and hepatic steatosis Subjective: ICU nursing at bedside. Discussed about discontinuing Lokelma. Patient has no concerns. Review of Systems: ROS otherwise reviewed and negative Physical Examination: Vitals: Vitals: 01/31/25 1115 01/31/25 1200 01/31/25 1300 01/31/25 1400 BP: (!) 118/54 (!) 99/51 113/61 BP Location: Patient Position: Pulse: 87 86 84 Resp: (!) 19 15 (!) 19 18 Temp: TempSrc: SpO2: 93% 97% 96% Weight: Height: Intake/Output last 3 shifts: Intake/Output Summary (Last 24 hours) at 01/31/2025 1443 Last data filed at 01/31/2025 1400 Gross per 24 hour Intake 438.53 ml Output 6150 ml Net -5711.47 ml I/O last 3 completed shifts: In: 669.1 [I.V.:319.1; IV Piggyback:350] Out: 4300 [Urine:4300] General: Age appropriate, NAD. HEENT: Normocephalic, no scleral icterus. Neck: No JVD. Heart: Regular, soft murmur present lungs: Distant breath sounds. On supplemental oxygen Abdomen: Soft, nontender, no supra-public fullness or tenderness. Extremities: Left hand wound dressing clean dry intact. No lower extremity edema Skin: Warm, dry, no rash, no bruise, no petichiae. Neuro: No myoclonus or tremor. Psych: Normal affect. : [x] Brenner present [] Brenner not present Results/Medications Reviewed 01/31/25 2:43 PM: Laboratory, Microbiology, Pathology, Radiology, Cardiology, Medications and Transcriptions reviewed Scheduled Meds: aspirin 81 mg Oral Daily bumetanide 1 mg Intravenous Q12H TEREZA [Held by provider] escitalopram oxalate 10 mg Oral Nightly insulin glargine 40 Units Subcutaneous BID lispro insulin 0-15 Units Subcutaneous at bedtime insulin lispro 0-30 Units Subcutaneous TID AC [Held by provider] lisinopriL 5 mg Oral Daily [Held by provider] metoprolol succinate 25 mg Oral Daily pantoprazole 40 mg Oral Daily pencillin G potassium IVPB 3 Million Units Intravenous Q4H senna-docusate 1 tablet Oral BID simvastatin 40 mg Oral at bedtime sodium chloride (PF) 5 mL Intravenous Q8H TEREZA Continuous Infusions: heparin infusion (weight based dosing) 16 Units/kg/hr (01/31/25 1400) heparin Results from last 7 days Lab Units 01/31/25 0426 01/30/25 0821 01/30/25 0220 01/28/25 2347 01/28/25 2339 WBC K/mcL 17.62* -- 20.48* -- 22.21* HGB g/dL 9.2* -- 10.2* -- 10.8* HEMOGLOBIN BG g/dL -- 10.4* -- < > -- HEMATOCRIT, CALCULATED % -- 32.0* -- < > -- HCT % 28.8* -- 31.6* -- 34.2* PLT K/mcL 146* -- 154 -- 162 < > = values in this interval not displayed. Results from last 7 days Lab Units 01/31/25 0426 01/30/25 1439 01/30/25 0220 01/29/25 1055 01/29/25 0752 01/29/25 0458 01/28/25 2347 01/28/25 2338 SODIUM mmol/L 131* 131* 133* < > 133* 133* < > 129* POTASSIUM mmol/L 4.2 5.5* 5.4* < > 4.7 4.4 < > 4.6 CHLORIDE mmol/L 97* 98 100 < > 103 100 < > 96* BICARB mmol/L 19* 18* 16* < > 17* 18* -- 13* BUN mg/dL 81* 77* 64* < > 45* 43* -- 38* CREATININE mg/dL 3.06* 3.02* 2.83* < > 2.26* 2.11* -- 1.86* EGFR mL/min/1.73 m2 20* 20* 22* < > 29* 31* -- 36* GLUCOSE mg/dL 103* 202* 150* < > 178* 282* < > 464* CALCIUM mg/dL 8.0* 8.0* 8.2* < > 8.3* 8.4 -- 8.2* MAGNESIUM mg/dL 2.0 -- 2.0 -- 2.0 2.1 -- 1.9 PHOSPHORUS mg/dL -- -- -- -- -- 3.9* -- 3.9* < > = values in this interval not displayed. Urinalysis Results from last 7 days Lab Units 01/30/25 1311 01/28/25 2049 COLOR, UR Brown* Yellow CLARITY, UR Cloudy* Clear SPEC GRAV 1.015 1.024 PH, UR 5.0 5.5 GLUCOSE, UR mg/dL Negative >=500* KETONES, UR mg/dL Negative 20* BILIRUBIN, UR Negative Negative UROBILINOGEN, UR mg/dL <2.0 <2.0 BLOOD, UR Large* Small* NITRITE, UR Negative Negative LEUK BARNEY, UR Trace* Trace* MUCUS, UR /lpf Rare Rare WBC, UR /hpf >180* 26* BACTERIA, UR /hpf Rare* Rare* HYALINE CASTS /lpf -- 3-5* Potential limitations of the note: Parts of this note were created by dictation via voice recognition software ([employer]). The completed note was reviewed for accuracy. However, there may be subtle errors that were not found during the review. If such errors are discovered, or if there are any questions or concerns regarding the recommendations/plan of care, please contact the author of the note prior to undertaking the recommendations/plan of care. * Kunal Norman MD - 01/31/2025 1:32 PM EDT Patient Name: Andrew Arnold Admit Date: 7200815 MR #: [id number] : 1945 Physicians: Vivien Foreman MD (Family); No ref. provider found (Referring) Assessment: Patient with 1. Septic shock, 2. Suspicion for pneumonia, 3. Respiratory failure, 4. Leukocytosis, improving 5. Left upper extremity cellulitis/fasciitis 6. Bacteremia with Streptococcus agalactia Plan. Continue patient on current therapy Status post discontinue IV clindamycin Patient on IV penicillin G Patient status post DC IV Zosyn. Patient on IV vancomycin DC IV vancomycin if negative MRSA. Keep a close eye on the wound area and also on the kidney function Follow-up orthopedic evaluation for possible I&D. Follow-up labs Reviewed blood culture with Streptococcus agalactiae in 2 sets of blood culture. I reviewed repeat blood cultures with no growth. I reviewed urinalysis with large blood, trace leuk esterase, WBC 180 with rare bacteria. Reviewed CT of the pulmonary artery, with groundglass opacity of the upper lobe suspicious for atypical inflammatory infectious process, I reviewed chest x-ray with with borderline cardiomegaly I reviewed echocardiogram, with ejection fraction of 43%, with post aortic valve replacement noted bioprosthetic valve. Cannot exclude mobile density on the leaflets due to image quality. Get SHAHAB if possible I reviewed Renal ultrasound with no hydronephrosis, bilateral renal cysts and diffuse bladder wall thickening. Reviewed x-ray of the left wrist, with degenerative disease and deformity noted. I reviewed CT of the left upper extremity, with moderate amount of diffuse soft tissue swellings,May be secondary to cellulitis, no CT evidence of septic arthritis, severe degenerative changes and chronic avascular necrosis of the lunate Continue hydration and Patient on pressors Will continue to follow with you. Reviewed the CRP of 311. Aspiration precaution recommended. I reviewed abdominal ultrasound, with cholelithiasis without cholecystitis. On discharge: To be determined, workup in progress. Subjective: Patient reevaluated today, with no new symptoms, no fever or chills. Left upper extremity stable, with less pain but sanding machine tender automatic . Tmax of 97.9. Saturating 98% on room air. Patient remains on diuretic with good bumetanide Exam: PACU Vitals 01/31/25 1300 BP: (!) 99/51 Pulse: 86 Resp: (!) 19 Temp: SpO2: 97% Allergies: Pioglitazone Current Medications[1] PMH/PSH/SH/FH reviewed, no change : Review of Systems: All systems were reviewed no change: Medications Reviewed. Allergies: Pioglitazone Chart Reviewed. Exam Findings: HEENT: Atraumatic/Pupils equal & reactive Neck: Supple, no rigidity ENT: No oral candidiasis Chest: Lungs clear bilaterally, no wheezing, or rales CVS: Normal S1 & S2+, Abdomen: Normal symmetry, Soft/non-tender. Benign, BS+ Extremities: No Deformities, with tenderness in the left upper extremity and swelling, 1 area of point on the wrist noted. No drainage and scabbed area. Skin: Intact & No Rashes, or excoriations Musculoskeletal: No joint swelling, non tender PLATFORM SUPERVISOR: Awake, and Ox3, weak looking. Wound: Scabbed area of the left wrist noted. Brenner Catheter: Yes IV Access: Yes I reviewed Medications. I reviewed Labs. US Abdomen Limited Study Final Result 1. Cholelithiasis without cholecystitis. 2. Hepatic steatosis. No focal liver lesion identified. Workstation ID: [id number] US Renal and Bladder Final Result Question borderline mild increased renal parenchymal echogenicity, can be seen in the setting of medical renal disease. No hydronephrosis. Bilateral renal cortical cysts. Diffuse bladder wall thickening. Bladder volume of 568 mL. Workstation ID: [id number] CT Upper Extremity Left Soft Tissue Without Contrast Final Result 1. There appears to be a moderate amount of diffuse soft tissue swelling along the dorsal aspect ofthe forearm and wrist extending into the hand to the level of the metacarpals. This may be secondary to a cellulitis, but this is nonspecific. 2. No CT evidence of a septic arthritis is seen. 3. 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 4. There are severe degenerative changes at the radiolunate articulation and there are CT findings compatible with the sequela of chronic avascular necrosis of the lunate. 5. Atherosclerotic vascular disease. Workstation ID: [id number] Echocardiogram Complete Final Result CT Pulmonary Arteries Final Result No evidence for acute pulmonary embolism. Ground-glass airspace opacities of the upper lobes suspicious for atypical inflammatory or infectious process. Reflux of contrast into the hepatic veins suggesting CHF. Workstation ID: [id number] XR Chest 1 View Final Result 1. Borderline cardiomegaly and stable elevation of the right hemidiaphragm. 2. Chronic changes noted bilaterally. Workstation ID: [id number] Laboratory and Additional Data Reviewed: Laboratory 01/31/25 1:32 PM Microbiology 01/31/25 1:32 PM Radiology 01/31/25 1:32 PM Medications 01/31/25 1:32 PM Lab Results Component Value Date WBC 17.62 (H) 01/31/2025 HGB 9.2 (L) 01/31/2025 HCT 28.8 (L) 01/31/2025 MCV 83.2 01/31/2025 PLT 146 (L) 01/31/2025 Lab Results Component Value Date GLUCOSE 103 (H) 01/31/2025 CALCIUM 8.0 (L) 01/31/2025 NA 131 (L) 01/31/2025 K 4.2 01/31/2025 CL 97 (L) 01/31/2025 BUN 81 (H) 01/31/2025 CREATININE 3.06 (H) 01/31/2025 Problem List Items Addressed This Visit None Visit Diagnoses Septic shock (HCC) - Primary Relevant Medications piperacillin-tazobactam (ZOSYN) IVPB 4.5 g (premix) (Completed) penicillin G potassium 3 million unit/50 mL IVPB 3 Million Units Shortness of breath Elevated troponin DKA (diabetic ketoacidosis) (HCC) Relevant Medications insulin regular (Humulin R, Novolin R) injection 20 Units (Completed) insulin glargine (LANTUS) injection 40 Units insulin lispro (AdmeLOG,HumaLOG) injection 0-15 Units insulin lispro (AdmeLOG,HumaLOG) injection 0-30 Units Anemia of chronic disease I have taken time to review patient's information and having discussions with appropriate care teams, I appreciate seeing your patient, will continue to follow with you, and adjust with more information. Medical Decision Making: High This note is created with the assistance of a speech-recognition program. While intending to generate a document that actually reflects the content of the visit, the document can still have some errors including those of syntax and sound a- like substitutions which may escape proofreading. In such instances, actual meaning can be extrapolated by contextual derivation. [1] Current Facility-Administered Medications: aspirin EC tablet 81 mg, 81 mg, Oral, Daily, Oren Mireles DO, 81 mg at 01/31/25 0839 bumetanide (BUMEX) injection 1 mg, 1 mg, Intravenous, Q12H [facility] HOSPITALAntonino Beth Ashley, EXCELLENCE MANAGER, 1 mg at 01/31/25 0512 [Held by provider] escitalopram oxalate (LEXAPRO) tablet 10 mg, 10 mg, Oral, Nightly, Oren Mireles DO, 10 mg at 01/29/25 0101 heparin (porcine) 25,000 unit/250 mL(100 unit/mL) in D5W infusion, 0-70 Units/kg/hr, Intravenous, Continuous, Nevin Matthew MD, Last Rate: 16 mL/hr at 01/31/25 1305, 16 Units/kg/hr at 305 heparin bolus from bag 0-5,000 Units, 0-5,000 Units, Intravenous, Continuous PRN, Nevin Matthew MD, 3,000 Units at 01/31/25 0613 insulin glargine (LANTUS) injection 40 Units, 40 Units, Subcutaneous, BID, Dominga Muñiz CNP, 40 Units at 01/31/25 0822 insulin lispro (AdmeLOG,HumaLOG) injection 0-15 Units, 0-15 Units, Subcutaneous, at bedtime ANDNotify physician, , , Until Discontinued, Dominga Muñiz CNP insulin lispro (AdmeLOG,HumaLOG) injection 0-30 Units, 0-30 Units, Subcutaneous, TID AC, Dominga Muñiz CNP, 8 Units at 01/31/25 1138 [Held by provider] lisinopriL (PRINIVIL,ZESTRIL) tablet 5 mg, 5 mg, Oral, Daily, Oren Mireles, melatonin tablet 3 mg, 3 mg, Oral, Nightly PRN, Noemi Andrade MD [Held by provider] metoprolol succinate (TOPROL-XL) 24 hr tablet 25 mg, 25 mg, Oral, Daily, Oren Mireles, naloxone (NARCAN) injection 0.1 mg, 0.1 mg, Intravenous, PRN AND Notify physician, , , Until Discontinued AND naloxone (NARCAN) injection 0.4 mg, 0.4 mg, Intravenous, PRN, Noemi Andrade MD ondansetron (ZOFRAN) injection 4 mg, 4 mg, Intravenous, Q6H PRN, Dominga Muñiz CNP, 4 mg at01/29/25 1538 oxyCODONE (ROXICODONE) immediate release tablet 5 mg, 5 mg, Oral, Q4H PRN, Noemi Andrade MD, 5 mg at 01/31/25 1018 pantoprazole (PROTONIX) EC tablet 40 mg, 40 mg, Oral, Daily, Dominga Muñiz CNP, 40 mg at 01/31/25 0839 penicillin G potassium 3 million unit/50 mL IVPB 3 Million Units, 3 Million Units, Intravenous, Q4H, Dominga Muñiz CNP, Last Rate: 200 mL/hr at 01/31/25 1231, 3 Million Units at 01/31/25 1231 senna-docusate (SENNA-S) 8.6-50 mg per tablet 1 tablet, 1 tablet, Oral, BID, Maureen, Oren Urban,DO, 1 tablet at 01/30/25 0913 simvastatin (ZOCOR) tablet 40 mg, 40 mg, Oral, at bedtime, Kiza, Oren Sherylmukristopherza, DO, 40 mg at 01/30/252021 Saline lock IV, , , Continuous AND sodium chloride (PF) (NS) flush 5 mL, 5 mL, Intravenous, PRNAND sodium chloride (PF) (NS) flush 5 mL, 5 mL, Intravenous, Q8H TEREZA, 5 mL at 01/31/25 1305 AND sodium chloride 0.9% (NS), 0-150 mL/hr, Intravenous, PRN, Kiza, Oren Niwemukiza, DO, Stopped at01/29/25 0855 sodium zirconium cyclosilicate (LOKELMA) packet 10 g, 10 g, Oral, TID, 10 g at 01/31/25 0512 FOLLOWED BY [START ON 02/02/2025] sodium zirconium cyclosilicate (LOKELMA) packet 10 g, 10 g, Oral, Daily, Gina Reyna MD * Stephanie Randhawa - 01/31/2025 12:07 PM EDT Spiritual Care Progress Note Completed by: Stephanie Randhawa Person(s) Present During this Visit: Patient Not Available Time Spent in Direct Patient Care: 5 Narrative: I attempted to visit the pt., Andrew, while rounding. He was meeting with medical team and was unavailable at this time. Visit rescheduled for patient and/or family convenience and pastoral care availability. Pastoral Care team will remain available to support patient and family PRN. 01/31/25 1207 Visit Background Visit With Patient Not Available Visit By Staff Turnstile Collector Visit Progression Attempt Visit Requested By Turnstile Collector Initiated Visit Source Turnstile Collector Initiated Visit Type Inpatient;Rounding Visit Circumstances and Events Routine Visit Visit Length (minutes) 5 Patient's Response to Pastoral Care Timing of Visit Not Optimal. Visit Rescheduled Visit Planning PRN Spiritual Assessment Not assessed during visit Latter Day Assessment Not assessed during this visit Family assessment provided? Not assessed during this visit Signature: Stephanie Randhawa MDiv Staff Turnstile Collector 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 Who presented with multi organ damage including DOMENICO lactic acidosis elevated troponin consistent with septic shock. Elevated troponin: Likely demand ischemia. Cannot rule out a primary plaque rupture definitely. does not have symptoms suggestive of acute coronary syndrome. 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 Now with Brenner catheter, -3.1 L overnight with an additional 1.5 L today he is still +1.9 L since admission. Creatinine continues to trend up per nephrology note patient may need renal replacement therapy if acidosis/renal function does not improve. Tentatively plan for SHAHAB Tuesday for further evaluation Bumex 1 mg IV every 12 hours Strict intake and output, daily weights N.p.o. at midnight night. Toprol-XL 12.5 mg twice daily Insulin-dependent diabetes Per primary team Septic shockGPC bacteremia No longer on Levophed Plan per primary team Permanent A-fib Currently on heparin drip Will need Eliquis restarted prior to discharge Toprol XL 12.5 mg twice daily Subjective Patient seen at bedside continues to have left arm pain. He denies chest pain, palpitations, dizziness or shortness of breath ECG 12 Lead Final Result by Interface, Lab [facility] [place] [facility] (01/30/2025 1116) Echocardiogram Complete Final Result by Jennifer Cintron MD (01/29/2025 1455) Echocardiogram complete w contrast Final Result by Jennifer Cintron MD (03/22/2023 1601) Stress test only, exercise Final Result by Nik Hoskins DO (02/13/2016 0900) Cardiac Catheterization Final Result by Adilson Stone MD (12/25/2021 1253) Review of Systems: The following system(s) were reviewed and negative. Pertinent positive and negative findings are noted in the HPI. [x] Const [x] Eyes [x] ENT [x] Resp [] CV [x] GI [x] [x] Neuro [x] Musc [x] Skin [x] Psych [x] Endo [x] Allergy [x] Heme/Lymph Current Medications[1] Objective: Physical Examination: BP 126/79 (BP Location: Left arm, Patient Position: Lying) Pulse 89 Temp 97.6 F (36.4 C) (Oral) Resp 17 Ht 5' 7 Wt 107.9 kg (237 lb 14 oz) SpO2 90% BMI 37.26 kg/m Constitutional: Alert, not in distress.? Eyes: Conjunctivae/corneas clear. Lungs: Clear to auscultation, no wheezes, rales or rhonchi. Cardiovascular: Controlled rate and regular rhythm, soft systolic murmur best heard at the base, nopedal edema. Abdomen: Soft, nontender with normal active bowel sounds Skin: Normal coloration and turgor; no rashes or lesions noted to exposed skin. Dressing noted to left forearm, swelling of left hand Musculoskeletal: Moves all extremities Psych: Oriented to time, person, and place; appropriate mood. Lab Results Component Value Date CHOL 110 12/02/2023 LDLCALC 47 12/02/2023 TRIG 38 12/02/2023 HDL 55 12/02/2023 Serum creatinine: 3.06 mg/dL (H) 01/31/25 0426 Estimated creatinine clearance: 18 mL/min (A) Please excuse any typographical errors as dictation software was used Luis A Gayle MSN, CABLE SWAGER, ANP-C [1] Current Facility-Administered Medications Medication Dose Route Frequency Provider Last Rate Last Admin aspirin EC tablet 81 mg 81 mg Oral Daily Oren Mireles DO 81 mg at 01/31/25 0839 bumetanide (BUMEX) injection 1 mg 1 mg Intravenous Q12H [facility] Dominga Muñiz CNP 1 mg at 01/31/25 0512 [Held by provider] escitalopram oxalate (LEXAPRO) tablet 10 mg 10 mg Oral Nightly Oren Mireles, DO 10 mg at 01/29/25 0101 heparin (porcine) 25,000 unit/250 mL(100 unit/mL) in D5W infusion 0-70 Units/kg/hr Intravenous Continuous Nevin Matthew MD 18 mL/hr at 01/31/25 0800 18 Units/kg/hr at 01/31/25 0800 heparin bolus from bag 0-5,000 Units 0-5,000 Units Intravenous Continuous PRN Nevin Matthew MD 3,000 Units at 01/31/25 0613 insulin glargine (LANTUS) injection 40 Units 40 Units Subcutaneous BID Dominga Muñiz CNP 40Units at 01/31/25 0822 insulin lispro (AdmeLOG,HumaLOG) injection 0-15 Units 0-15 Units Subcutaneous at bedtime Dominga Muñiz CNP insulin lispro (AdmeLOG,HumaLOG) injection 0-30 Units 0-30 Units Subcutaneous TID AC Dominga Muñiz CNP 6 Units at 01/30/25 1657 [Held by provider] lisinopriL (PRINIVIL,ZESTRIL) tablet 5 mg 5 mg Oral Daily Oren Mireles DO melatonin tablet 3 mg 3 mg Oral Nightly PRN Noemi Andrade MD [Held by provider] metoprolol succinate (TOPROL-XL) 24 hr tablet 25 mg 25 mg Oral Daily Oren Mireles DO naloxone (NARCAN) injection 0.1 mg 0.1 mg Intravenous PRN Noemi Andrade MD And naloxone (NARCAN) injection 0.4 mg 0.4 mg Intravenous PRN Noemi Andrade MD ondansetron (ZOFRAN) injection 4 mg 4 mg Intravenous Q6H PRN Dominga Muñiz CNP 4 mg at 01/29/25 1538 oxyCODONE (ROXICODONE) immediate release tablet 5 mg 5 mg Oral Q4H PRN Noemi Andrade MD pantoprazole (PROTONIX) EC tablet 40 mg 40 mg Oral Daily Dominga Muñiz CNP 40 mg at 01/31/25 0839 penicillin G potassium 3 million unit/50 mL IVPB 3 Million Units 3 Million Units Intravenous Q4H Dominga Muñiz CNP 200 mL/hr at 01/31/25 0842 3 Million Units at 01/31/25 0842 senna-docusate (SENNA-S) 8.6-50 mg per tablet 1 tablet 1 tablet Oral BID Oren Mireles DO 1 tablet at 01/30/25 0913 simvastatin (ZOCOR) tablet 40 mg 40 mg Oral at bedtime Oren Mireles, DO 40 mg at 01/30/25 202 sodium chloride (PF) (NS) flush 5 mL 5 mL Intravenous PRN Oren Mireles DO And sodium chloride (PF) (NS) flush 5 mL 5 mL Intravenous Q8H TEREZA Oren Mireles, DO 5 mL at 01/31/25 0512 And sodium chloride 0.9% (NS) 0-150 mL/hr Intravenous PRN Oren Mireles, DO Stopped at 855 sodium zirconium cyclosilicate (LOKELMA) packet 10 g 10 g Oral TID Gina Reyna MD 10 g at 01/31/25 0512 Followed by [START ON 02/02/2025] sodium zirconium cyclosilicate (LOKELMA) packet 10 g 10 g Oral Daily Gina Reyna MD Cosigned by Neetu Pinto MD at 01/31/2025 12:00 PM EDT Associated attestation - Neetu Pinto MD - 01/31/2025 12:00 PM EDT I have seen and examined the patient with the cardiology nurse practitioner and agree with the assessment and plan as documented in the note. Patient remained hemodynamically stable and off Levophed. However renal function seems to be deteriorating which is concerning. Volume status seems to be stable. But seems to be starting to develop mild volume overload. Tentative plan for SHAHAB tomorrow to assess for vegetation given bacteremia and bioprosthetic aortic valve with worsening regurgitation on transthoracic echo evaluation. However this can be delayed, ifneeded, till next week as it is unlikely to have immediate change in medical management. * Iván Robbins CNP - 01/31/2025 9:37 AM EDT CRITICAL CARE PROGRESS 01/31/2025 Patient: Andrew Arnold Date of : 1945 Site: [facility] Provider: Iván Robbins CNP ASSESSMENT/PLAN: Andrew Arnold 79 y.o. male with history of HTN, HLD, CAD, DM Type II, atrial fibrillation, TIA who was admitted on 01/28 with septic shock and left hand abscess. The patient underwent left ganglion cystI&D last week per orthopedic surgery. He reports increased pain and swelling since. He has beenevaluated in the ED x 3 (01/26, 01/26, 01/27) for pain and swelling. He was evaluated by orthopedic surgery yesterday. He presented to the ED and was admitted to the ICU for septic shock, DKA, and DOMENICO. Respiratory: Acute Hypoxemic Respiratory Failure. Currently on 2L. CXR reviewed. Encourage good pulmonary hygiene. Diuresis. Goal sat 90-93%. Cardiovascular: Shock, septic +/- cardiogenic. Blood cultures growing Group B strep. UA+. Send urine culture pending. MRSA probe negative. Aerobic/anaerobic wound culture of left hand pending. On PCN G. TTE with global systolic dysfunction with LVEF 43%, reduced RV, pul hypertension with RVSP 61; moderate tricuspid valve regurgitation; AI,MR, TR worse from previous echo. S/p Norepinephrine gtt. Goal MAP >65. Trend lactate. NSTEMI. Initial EKG AF with RVR. EKG reviewed. TTE with global systolic dysfunction with LVEF 43%, reduced RV, pul hypertension with RVSP 61; moderate tricuspid valve regurgitation; AI,MR, TR worse from previous echo On heparin infusion. On aspirin, statin. Acute HFpEF. Biprosthetic aortic valve. Stop IVFs. BNP grossly elevated at >50K. TTE with globalsystolic dysfunction with LVEF 43%, reduced RV, pul hypertension with RVSP 61; moderate tricuspid valve regurgitation; AI,MR, TR worse from previous echo. Daily weights. Strict I/O. Diurese as able. Atrial Fibrillation. Metoprolol and Eliquis held on admission. Re introduce as able. Neuro/Muscular: Acute Metabolic Encephalopathy. Likely secondary to sepsis. Remains alert and oriented. Ammonia 21.Serial neuro exams. Renal: Acute Kidney Injury. Strict I/O. Avoid nephrotoxins. Medically manage electrolytes. Renal ultrasound negative. CPK 828. Consult nephrology. Trend Cr. Anion gap metabolic acidosis. Combined DOMENICO, lactic acidosis +/- DKA. Ketones also possibly elevateddue to Semaglutide use. VBG reviewed. Trend. Hypervolemic hyponatremia. Diuresing. GI/Nutrition: Diet per primary. Shock liver. Abdominal US with no focal liver lesion identified, cholelithiasis without cholecystitis, hepatic steatosis with no identifiable liver lesion. Ammonia 21. Trend coags. Endocrine: DKA. DM Type II. A1c 8.7. Initial BHB >4. Ketones also possibly elevated due to Semaglutide use.Sp DKA protocol. Start Lantus 40u BID with ISS coverage. Goal BG <180. Heme/Onc: Anemia. Hemoglobin stable. Trend. ID: Sepsis with acute organ dysfunction and shock. BC growing group B strep. UC pending. Aerobic/anaerobic wound culture pending. Changed from Zosyn, Vancomycin, Clindamycin to PCN G. ID following. Left hand cellulitis with abscess. Sp left hand ganglion cyst I&D 01/26. Has had 3 ED visits since. Left hand xray without gas formation; avascular necrosis and degenerative changes. CT left arm diffuse soft tissue swelling along the dorsal aspect of the forearm/wrist, negative for septic arthritis. Left hand wound opened with purulent drainage noted. Evaluated by orthopedic surgery. Aerobic/an aerobic wound culture pending. Possible future I&D per ortho. Prophylaxis: Protonix Heparin gtt Other: Full code. Patient s/p levophed. He is off all vasoactive and sedating medications. Critical Care Medicine will sign off. SUBJECTIVE: History Since Last Visit: No acute issues overnight. Remains off of levophed. Pending Lab and Radiology Results Order Current Status Blood Culture #1 Preliminary result Blood Culture #2 Preliminary result Wound Aerobic And Anaerobic Culture Preliminary result Interpretation of Testing: I personally reviewed the EKG and agree with the interpretation(s). Review of Systems: All other systems reviewed and negative other than HPI OBJECTIVE: Physical Examination: BP 126/79 (BP Location: Left arm, Patient Position: Lying) Pulse 89 Temp 97.6 F (36.4 C) (Oral) Resp 17 Ht 5' 7 Wt 107.9 kg (237 lb 14 oz) SpO2 90% BMI 37.26 kg/m Temp: [97.4 F (36.3 C)-97.8 F (36.6 C)] 97.6 F (36.4 C) Heart Rate: [81-101] 89 Resp: [15-23] 17 BP: (88-148)/(45-108) 126/79 SpO2 Readings from Last 1 Encounters: 01/31/25 90% Intake/Output Summary (Last 24 hours) at 01/31/2025 0966 Last data filed at 01/31/2025 0850 Gross per 24 hour Intake 1004.17 ml Output 4625 ml Net -3620.83 ml Vital Signs Reviewed. Gen: Alert and oriented x 3, In no apparent distress HEENT: Head: Normocephalic, no lesions, without obvious abnormality. Pharynx: Dental Hygiene adequate. Normal buccal mucosa. Normal pharynx. Neck: nontender, full range of motion, no mass, no focal lymphadenopathy Cardio: regular rate and rhythm, no murmur, brisk capillary refill Resp: distant breath sounds bilaterally, no wheezes or crackles, no tachypnea or accessory muscle use Abd: soft, nontender, nondistended, no hepatosplenomegaly, no mass, normal bowel sounds MSK: Moves all four extremities spontaneously. Neuro: Grossly normal without focal findings Skin: no rashes, no jaundice, left hand wound draining purulent. MEDICATIONS: Current Medications[1] Current HOME Medications: Prior to Admission Medications[2] Current HOSPITAL Medications: Current Hospital Medications[3] [x] Medications reviewed. [x] Labs reviewed. Pertinent findings noted: WBC 20 [x] Radiology reviewed. Pertinent findings noted: CT left upper extremity [] Pathology reviewed. Pertinent findings noted: Family Update/ Code Status: Full code. Laboratory and Additional Data Reviewed: Reviewed 01/31/25 9:37 AM: Laboratory, Microbiology, Radiology, Cardiology, and Medications [1] Current Facility-Administered Medications Medication Dose Route Frequency Provider Last Rate Last Admin acetaminophen (TYLENOL) tablet 650 mg 650 mg Oral Q4H PRN Kristopherza, Oren Niwemukiza, DO 650 mg at 01/30/25 2338 Or acetaminophen (TYLENOL) solution 650 mg 650 mg Tube Q4H PRN Kristopherza, Oren Niwemukiza, DO aspirin EC tablet 81 mg 81 mg Oral Daily Maureen, Oren Saucedomukiza, DO 81 mg at 01/31/25 0839 bumetanide (BUMEX) injection 1 mg 1 mg Intravenous Q12H Dominga Pierson CNP 1 mg at 01/31/25 0512 [Held by provider] escitalopram oxalate (LEXAPRO) tablet 10 mg 10 mg Oral Nightly Maureen, Oren Saucedomukiza, DO 10 mg at 01/29/25 0101 heparin (porcine) 25,000 unit/250 mL(100 unit/mL) in D5W infusion 0-70 Units/kg/hr Intravenous Continuous Nevin Matthew MD 18 mL/hr at 01/31/25 0800 18 Units/kg/hr at 01/31/25 0800 heparin bolus from bag 0-5,000 Units 0-5,000 Units Intravenous Continuous PRN Nevin Matthew MD 3,000 Units at 01/31/25 0613 insulin glargine (LANTUS) injection 40 Units 40 Units Subcutaneous BID Dominga Muñiz CNP 40Units at 01/31/25 0822 insulin lispro (AdmeLOG,HumaLOG) injection 0-15 Units 0-15 Units Subcutaneous at bedtime Dominga Muñiz CNP insulin lispro (AdmeLOG,HumaLOG) injection 0-30 Units 0-30 Units Subcutaneous TID AC Dominga Muñiz CNP 6 Units at 01/30/25 1657 [Held by provider] lisinopriL (PRINIVIL,ZESTRIL) tablet 5 mg 5 mg Oral Daily Oren Mireles DO [Held by provider] metoprolol succinate (TOPROL-XL) 24 hr tablet 25 mg 25 mg Oral Daily Oren Mireles DO ondansetron (ZOFRAN) injection 4 mg 4 mg Intravenous Q6H PRN Dominga Muñiz CNP 4 mg at 01/29/25 1538 pantoprazole (PROTONIX) EC tablet 40 mg 40 mg Oral Daily Dominga Muñiz CNP 40 mg at 01/31/25 0839 penicillin G potassium 3 million unit/50 mL IVPB 3 Million Units 3 Million Units Intravenous Q4H Dominga Muñiz CNP 200 mL/hr at 01/31/25 0842 3 Million Units at 01/31/25 0842 perflutren lipid microspheres (DEFINITY) 0.143 mg/mL solution 0-10 mL of mixture 0-10 mL of mixtureIntravenous Once in imaging Dominga Muñiz CNP senna-docusate (SENNA-S) 8.6-50 mg per tablet 1 tablet 1 tablet Oral BID Kiza, Oren Niwemukiza, DO 1 tablet at 01/30/25 09 simvastatin (ZOCOR) tablet 40 mg 40 mg Oral at bedtime Oren Mireles [place], DO 40 mg at 01/30/252021 sodium chloride (PF) (NS) flush 5 mL 5 mL Intravenous PRN Kiza, Oren Niwemukiza, DO And sodium chloride (PF) (NS) flush 5 mL 5 mL Intravenous Q8H TEREZA Maureen, Oren Niwemukiza, DO 5 mL at 01/31/25 05 And sodium chloride 0.9% (NS) 0-150 mL/hr Intravenous PRN Kiza, Oren Niwemukiza, DO Stopped at sodium zirconium cyclosilicate (LOKELMA) packet 10 g 10 g Oral TID Gina Reyna MD 10 g at 01/31/25 05 Followed by [START ON 02/02/2025] sodium zirconium cyclosilicate (LOKELMA) packet 10 g 10 g Oral Daily Gina Reyna MD [2] No outpatient medications have been marked as taking for the 01/28/25 encounter (Hospital Encounter). [3] acetaminophen (TYLENOL) tablet 650 mg, 650 mg, Oral, Q4H PRN OR acetaminophen (TYLENOL) solution 650 mg, 650 mg, Tube, Q4H PRN aspirin EC tablet 81 mg, 81 mg, Oral, Daily bumetanide (BUMEX) injection 1 mg, 1 mg, Intravenous, Q12H TEREZA [Held by provider] escitalopram oxalate (LEXAPRO) tablet 10 mg, 10 mg, Oral, Nightly heparin (porcine) 25,000 unit/250 mL(100 unit/mL) in D5W infusion, 0-70 Units/kg/hr, Intravenous, Continuous heparin bolus from bag 0-5,000 Units, 0-5,000 Units, Intravenous, Continuous PRN insulin glargine (LANTUS) injection 40 Units, 40 Units, Subcutaneous, BID insulin lispro (AdmeLOG,HumaLOG) injection 0-15 Units, 0-15 Units, Subcutaneous, at bedtime ANDNotify physician, , , Until Discontinued insulin lispro (AdmeLOG,HumaLOG) injection 0-30 Units, 0-30 Units, Subcutaneous, TID AC [Held by provider] lisinopriL (PRINIVIL,ZESTRIL) tablet 5 mg, 5 mg, Oral, Daily [Held by provider] metoprolol succinate (TOPROL-XL) 24 hr tablet 25 mg, 25 mg, Oral, Daily ondansetron (ZOFRAN) injection 4 mg, 4 mg, Intravenous, Q6H PRN pantoprazole (PROTONIX) EC tablet 40 mg, 40 mg, Oral, Daily penicillin G potassium 3 million unit/50 mL IVPB 3 Million Units, 3 Million Units, Intravenous, Q4H perflutren lipid microspheres (DEFINITY) 0.143 mg/mL solution 0-10 mL of mixture, 0-10 mL of mixture, Intravenous, Once in imaging senna-docusate (SENNA-S) 8.6-50 mg per tablet 1 tablet, 1 tablet, Oral, BID simvastatin (ZOCOR) tablet 40 mg, 40 mg, Oral, at bedtime Saline lock IV, , , Continuous AND sodium chloride (PF) (NS) flush 5 mL, 5 mL, Intravenous, PRNAND sodium chloride (PF) (NS) flush 5 mL, 5 mL, Intravenous, Q8H TEREZA AND sodium chloride 0.9% (NS), 0-150 mL/hr, Intravenous, PRN sodium zirconium cyclosilicate (LOKELMA) packet 10 g, 10 g, Oral, TID FOLLOWED BY [START ON 02/02/2025] sodium zirconium cyclosilicate (LOKELMA) packet 10 g, 10 g, Oral, Daily * Noemi Andrade MD - 01/31/2025 9:04 AM EDT [facility] PROGRESS NOTE Patient Name: Andrew Arnold : 1945 Assessment and Plan Andrew Arnold is a 79 y.o. male patient of Vivien Foreman MD with history of CAD s/p CABG, atrial fibrillation on Eliquis, DM II, and mood disorder who presented to [facility] on01/28/2025 with tachycardia and generalized malaise which started few hours after an outpatient lefthand abscess drainage. Left upper extremity cellulitis/abscess He is s/p left hand ganglion cyst I&D on 01/26. CT of the LUE on 01/27 showed moderate amount of diffuse soft tissue swelling along the dorsal aspect of the forearm and wrist extending into the hand to the level of the metacarpals. No evidence of septic arthritis. Evaluated by orthopedics on 01/30 for possible I&D. Continue with current antibiotics. Concern for toxic shock syndrome Acute encephalopathy Septic Shock Sepsis was present on admission and felt to be due to soft tissue infection. Was in septic shock requiring vasopressors, now off pressors. Blood culture growing Streptococcus. Lactic acid 5.8 >> 2.9. He was started on vancomycin and Zosyn. Appreciate ID input, antibiotic changed to penicillin G. SHAHAB to rule out vegetation. DM II with diabetes ketoacidosis Blood glucose 528. BHB 4.2. pH 7.3. UA positive for ketones BG is better controlled, hold on insulin gtt., now on Lantus. Continue to monitor. Elevated troponin Transaminitis Troponin 708. Currently denying chest pain. Interval rise in Trop T 247 >> 1046 >> 2216. Although likely demand ischemia from sepsis. Appreciate Cardiology input. Continue heparin gtt. AST 139. ALT 102, now 1591/1419 INR 2.1. Elevated LFTs likely due to shock. Continue to monitor, expect LFT to plateau on decline.. DOMENICO on chronic kidney disease Anion gap metabolic acidosis Baseline Cr around 1 Cr 1.65 >> 2.26 >> 3.06. Likely due to sepsis. He is nonoliguric, holding lisinopril. Renal ultrasound with no hydronephrosis, evidence of urinary retention. Evaluated by nephrology, continue to monitor. May need renal replacement therapy if worsening acidosis and renal function. Hyperkalemia In the setting of DOMENICO with shock. K 5.4 >> 4.2. Lokelma per nephrology. Continue to monitor. Urinary retention Brenner catheter was placed on 01/30. Robust UOP. Continue to monitor. CAD status post CABG Atrial fibrillation with RVR Presented with A-fib with RVR to as high as 162. Currently rate controlled. Most recent heart rate 97 Continue home aspirin, statin, beta-julia. Holding home lisinopril due to shock. Holding home Eliquis for heparin gtt. Mood disorder Lexapro currently on hold. Resolved acute medical issues Discharge Planning Patient Medically Ready for Discharge: no Patient requires continued hospitalization due to: Ongoing management of septic shock and left handinfection. Expected Date of Discharge: 02/02. Expected Discharge Location: Home Quality Measures DVT Prophylaxis: heparin gtt Brenner Catheter: absent Code Status Full Code - Unverified Primary Contact Information Subjective He was examined on rounds, resting in bed, awake and alert, no acute distress. Members were present. Still with pain and swelling in the left hand with a nidus in the dorsum of the hand. Evaluated byorthopedics on 01/30. Nursing has no pressing concerns. Objective BP 126/79 (BP Location: Left arm, Patient Position: Lying) Pulse 89 Temp 97.6 F (36.4 C) (Oral) Resp 17 Ht 5' 7 Wt 107.9 kg (237 lb 14 oz) SpO2 90% BMI 37.26 kg/m Physical Examination General Appearance: Supine in bed, awake and alert, [place] [employer], no acute distress. Family members present. HEENT: Head- normocephalic; Eyes- EOMI, sclera anicteric; Throat- mucous membranes dry. Cardiovascular: regular rate and rhythm; normal S1, S2; no murmurs, rubs, clicks or gallops; peripheral edema 1+, LUE is swollen with tenderness in the dorsum of the left hand, warm and mildly erythematous with a stitched nidus of incision. Respiratory: lungs clear to auscultation; without wheezes, rales or rhonchi; on room air Abdomen: Full and soft, positive bowel sounds, no G/R. Neurological: oriented x 3; normal speech; no focal findings or movement disorder noted Musculoskeletal: no significant deformity or tenderness to palpation Skin: normal coloration, warm and dry. Psych: normal mood and affect, no agitation. * Kunal Norman MD - 01/30/2025 3:04 PM EDT Patient Name: Andrew Arnold Admit Date: [id number] MR #: [id number] : 1945 Physicians: Vivien Foreman MD (Family); No ref. provider found (Referring) Assessment: Patient with 1. Septic shock, 2. Suspicion for pneumonia, 3. Respiratory failure, 4. Leukocytosis, 5. Left upper extremity cellulitis/fasciitis 6. Bacteremia with Streptococcus agalactia Plan. Continue patient on current therapy Discontinue IV clindamycin Patient on IV penicillin G Patient status post DC IV Zosyn. Patient on IV vancomycin DC IV vancomycin if negative MRSA. Follow-up orthopedic evaluation for possible I&D. Follow-up labs Reviewed blood culture with Streptococcus agalactiae in 2 sets of blood culture. Repeat blood cultures. I reviewed urinalysis with large blood, trace leuk esterase, WBC 180 with rare bacteria. Reviewed CT of the pulmonary artery, with groundglass opacity of the upper lobe suspicious for atypical inflammatory infectious process, I reviewed chest x-ray with with borderline cardiomegaly I reviewed echocardiogram, with ejection fraction of 43%, with post aortic valve replacement noted bioprosthetic valve. Cannot exclude mobile density on the leaflets due to image quality. Get SHAHAB I reviewed Renal ultrasound with no hydronephrosis, bilateral renal cysts and diffuse bladder wall thickening. Reviewed x-ray of the left wrist, with degenerative disease and deformity noted. I reviewed CT of the left upper extremity, with moderate amount of diffuse soft tissue swellings,May be secondary to cellulitis, no CT evidence of septic arthritis, severe degenerative changes and chronic avascular necrosis of the lunate Continue hydration and Patient on pressors Will continue to follow with you. Reviewed the CRP of 311. Aspiration precaution recommended. Discussed with the Dr Andrade on management plan. On discharge: To be determined, workup in progress. Subjective: No reported new symptoms today. No fever or chills. Tmax of 98.4. Saturating 95% on room air. Left upper extremity stable, and area on elevation noted. Exam: PACU Vitals 01/30/25 1300 BP: 114/73 Pulse: 81 Resp: 16 Temp: SpO2: 95% Allergies: Pioglitazone Current Medications[1] PMH/PSH/SH/FH reviewed, no change : Review of Systems: All systems were reviewed no change: Medications Reviewed. Allergies: Pioglitazone Chart Reviewed. Exam Findings: HEENT: Atraumatic/Pupils equal & reactive Neck: Supple, no rigidity ENT: No oral candidiasis Chest: Lungs clear bilaterally, no wheezing, or rales CVS: Normal S1 & S2+, Abdomen: Normal symmetry, Soft/non-tender. Benign, BS+ Extremities: No Deformities, with tenderness in the left upper extremity and swelling, 1 area of point on the wrist noted. No drainage and scabbed area. Skin: Intact & No Rashes, or excoriations Musculoskeletal: No joint swelling, non tender [employer]: Awake, and Ox3, weak looking. Wound: Scabbed area of the left wrist noted. Brenner Catheter: Yes IV Access: Yes I reviewed Medications. I reviewed Labs. US Renal and Bladder Final Result Question borderline mild increased renal parenchymal echogenicity, can be seen in the setting of medical renal disease. No hydronephrosis. Bilateral renal cortical cysts. Diffuse bladder wall thickening. Bladder volume of 568 mL. Workstation ID: [id number] CT Upper Extremity Left Soft Tissue Without Contrast Final Result 1. There appears to be a moderate amount of diffuse soft tissue swelling along the dorsal aspect ofthe forearm and wrist extending into the hand to the level of the metacarpals. This may be secondary to a cellulitis, but this is nonspecific. 2. No CT evidence of a septic arthritis is seen. 3. 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 4. There are severe degenerative changes at the radiolunate articulation and there are CT findings compatible with the sequela of chronic avascular necrosis of the lunate. 5. Atherosclerotic vascular disease. Workstation ID: [id number] Echocardiogram Complete Final Result CT Pulmonary Arteries Final Result No evidence for acute pulmonary embolism. Ground-glass airspace opacities of the upper lobes suspicious for atypical inflammatory or infectious process. Reflux of contrast into the hepatic veins suggesting CHF. Workstation ID: [id number] XR Chest 1 View Final Result 1. Borderline cardiomegaly and stable elevation of the right hemidiaphragm. 2. Chronic changes noted bilaterally. Workstation ID: [id number] US Abdomen Limited Study (Results Pending) Laboratory and Additional Data Reviewed: Laboratory 01/30/25 3:04 PM Microbiology 01/30/25 3:04 PM Radiology 01/30/25 3:04 PM Medications 01/30/25 3:04 PM Lab Results Component Value Date WBC 20.48 (H) 01/30/2025 HGB 10.4 (L) 01/30/2025 HCT 32.0 (L) 01/30/2025 MCV 84.0 01/30/2025 PLT 154 01/30/2025 Lab Results Component Value Date GLUCOSE 150 (H) 01/30/2025 CALCIUM 8.2 (L) 01/30/2025 NA 133 (L) 01/30/2025 K 5.4 (H) 01/30/2025 CL 100 01/30/2025 BUN 64 (H) 01/30/2025 CREATININE 2.83 (H) 01/30/2025 Problem List Items Addressed This Visit None Visit Diagnoses Septic shock (HCC) - Primary Relevant Medications piperacillin-tazobactam (ZOSYN) IVPB 4.5 g (premix) (Completed) penicillin G potassium 3 million unit/50 mL IVPB 3 Million Units Shortness of breath Elevated troponin DKA (diabetic ketoacidosis) (HCC) Relevant Medications insulin regular (Humulin R, Novolin R) injection 20 Units (Completed) insulin glargine (LANTUS) injection 40 Units insulin lispro (AdmeLOG,HumaLOG) injection 0-15 Units insulin lispro (AdmeLOG,HumaLOG) injection 0-30 Units Anemia of chronic disease I have taken time to review patient's information and having discussions with appropriate care teams, I appreciate seeing your patient, will continue to follow with you, and adjust with more information. Medical Decision Making: High This note is created with the assistance of a speech-recognition program. While intending to generate a document that actually reflects the content of the visit, the document can still have some errors including those of syntax and sound a- like substitutions which may escape proofreading. In such instances, actual meaning can be extrapolated by contextual derivation. [1] Current Facility-Administered Medications: acetaminophen (TYLENOL) tablet 650 mg, 650 mg, Oral, Q4H PRN, 650 mg at 01/30/25 0056 OR acetaminophen (TYLENOL) solution 650 mg, 650 mg, Tube, Q4H PRN, Oren Mireles, aspirin EC tablet 81 mg, 81 mg, Oral, Daily, Oren Mireles DO, 81 mg at 01/30/25 0913 bumetanide (BUMEX) injection 1 mg, 1 mg, Intravenous, Q12H [facility], Dominga Muñiz CNP, 1 mg at 01/30/25 0510 [Held by provider] escitalopram oxalate (LEXAPRO) tablet 10 mg, 10 mg, Oral, Nightly, Oren Mireles DO, 10 mg at 01/29/25 0101 heparin (porcine) 25,000 unit/250 mL(100 unit/mL) in D5W infusion, 0-70 Units/kg/hr, Intravenous, Continuous, Nevin Matthew MD, Last Rate: 16 mL/hr at 01/30/25 1300, 16 Units/kg/hr at 300 heparin bolus from bag 0-5,000 Units, 0-5,000 Units, Intravenous, Continuous PRN, Nevin Matthew MD, 3,000 Units at 01/29/25 2020 insulin glargine (LANTUS) injection 40 Units, 40 Units, Subcutaneous, BID, Dominga Muñiz CNP, 40 Units at 01/30/25 0913 insulin lispro (AdmeLOG,HumaLOG) injection 0-15 Units, 0-15 Units, Subcutaneous, at bedtime ANDNotify physician, , , Until Discontinued, Dominga Muñiz CNP insulin lispro (AdmeLOG,HumaLOG) injection 0-30 Units, 0-30 Units, Subcutaneous, TID AC, Dominga Muñiz CNP [Held by provider] lisinopriL (PRINIVIL,ZESTRIL) tablet 5 mg, 5 mg, Oral, Daily, Oren Mireles DO [Held by provider] metoprolol succinate (TOPROL-XL) 24 hr tablet 25 mg, 25 mg, Oral, Daily, Oren Mireles DO norepinephrine (LEVOPHED) 4 mg in sodium chloride 0.9% (NS) 250 mL infusion, 0- 100 mcg/min, Intravenous, Continuous, Last Rate: 18.8 mL/hr at 01/28/252204, 5 mcg/min at 01/28/252204 AND VASOpressin (PITRESSIN) 0.2 unit/mL infusion, 0.03 Units/min, Intravenous, Continuous PRN, Nevin Matthew MD ondansetron (ZOFRAN) injection 4 mg, 4 mg, Intravenous, Q6H PRN, Dominga Muñiz CNP, 4 mg at01/29/25 1538 pantoprazole (PROTONIX) EC tablet 40 mg, 40 mg, Oral, Daily, Dominga Muñiz CNP, 40 mg at 01/30/25 0913 penicillin G potassium 3 million unit/50 mL IVPB 3 Million Units, 3 Million Units, Intravenous, Q4H, Dominga Muñiz CNP, Last Rate: 200 mL/hr at 01/30/25 1233, 3 Million Units at 01/30/25 1233 perflutren lipid microspheres (DEFINITY) 0.143 mg/mL solution 0-10 mL of mixture, 0-10 mL of mixture, Intravenous, Once in imaging, Dominga Muñiz CNP senna-docusate (SENNA-S) 8.6-50 mg per tablet 1 tablet, 1 tablet, Oral, BID, Maureen, Oren Saucedomumaureen,DO, 1 tablet at 01/30/25 0913 simvastatin (ZOCOR) tablet 40 mg, 40 mg, Oral, at bedtime, Kiza, Oren Sherylmukiza, DO, 40 mg at 01/29/25 2106 Saline lock IV, , , Continuous AND sodium chloride (PF) (NS) flush 5 mL, 5 mL, Intravenous, PRNAND sodium chloride (PF) (NS) flush 5 mL, 5 mL, Intravenous, Q8H TEREZA, 5 mL at 01/30/25 0510 AND sodium chloride 0.9% (NS), 0-150 mL/hr, Intravenous, PRN, Kiza, Oren Niwemukiza, DO, Stopped at01/29/25 0855 sodium zirconium cyclosilicate (LOKELMA) packet 10 g, 10 g, Oral, TID FOLLOWED BY [START ON 02/02/2025] sodium zirconium cyclosilicate (LOKELMA) packet 10 g, 10 g, Oral, Daily, Gina Reyna MD * Luis A Gayle CNP - 01/30/2025 11:54 AM EDT General Cardiology Inpatient Follow-up Heart & Vascular [facility] 01/30/2025 Luis A Gayle CNP [facility] Patient: Andrew Arnold Date of : 1945 (79 y.o.) 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 Who presented with multi organ damage including DOMENICO lactic acidosis elevated troponin consistent with septic shock. Elevated troponin: Likely demand ischemia. Cannot rule out a primary plaque rupture definitely. does not have symptoms suggestive of acute coronary syndrome. 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 Tentatively plan for SHAHAB Tuesday for further evaluation Bumex 1 mg IV every 12 hours Strict intake and output, daily weights N.p.o. at midnight night. Insulin-dependent diabetes Per primary team Septic shockGPC bacteremia Currently on Levophed Toprol on hold while on pressors Permanent A-fib Currently on heparin drip Will need Eliquis restarted prior to discharge Restart Toprol when off of pressors Subjective Patient seen at bedside he endorses feeling better today except for his left arm where his wound is. He denies chest pain, palpitations, dizziness or shortness of breath ECG 12 Lead Final Result by Interface, [facility] [place] [facility] (01/30/[facility] 1116) Echocardiogram Complete Final Result by Jennifer Cintron MD (01/29/2025 1455) Echocardiogram complete w contrast Final Result by Jennifer Cintron MD (03/22/2023 1601) Stress test only, exercise Final Result by Nik Hoskins DO (02/13/2016 0900) Cardiac Catheterization Final Result by Adilson Stone MD (12/25/2021 1253) Review of Systems: The following system(s) were reviewed and negative. Pertinent positive and negative findings are noted in the HPI. [x] Const [x] Eyes [x] ENT [x] Resp [] CV [x] GI [x] [x] Neuro [x] Musc [x] Skin [x] Psych [x] Endo [x] Allergy [x] Heme/Lymph Current Medications[1] Objective: Physical Examination: BP (!) 126/108 Pulse 84 Temp 97.6 F (36.4 C) (Oral) Resp (!) 20 Ht 5' 7 Wt 107.9 kg (237lb 14 oz) SpO2 98% BMI 37.26 kg/m Constitutional: Alert, not in distress.? Eyes: Conjunctivae/corneas clear. Lungs: Clear to auscultation, no wheezes, rales or rhonchi. Cardiovascular: Controlled rate and regular rhythm, soft systolic murmur best heard at the base, nopedal edema, + JVD. Abdomen: Soft, nontender with normal active bowel sounds Skin: Normal coloration and turgor; no rashes or lesions noted to exposed skin. Dressing noted to left forearm Musculoskeletal: Moves all extremities Psych: Oriented to time, person, and place; appropriate mood. Lab Results Component Value Date CHOL 110 12/02/2023 LDLCALC 47 12/02/2023 TRIG 38 12/02/2023 HDL 55 12/02/2023 Serum creatinine: 2.83 mg/dL (H) 01/30/25 0220 Estimated creatinine clearance: 19.5 mL/min (A) Please excuse any typographical errors as dictation software was used Luis A Gayle MSN, CABLE SWAGER, ANP-C [1] Current Facility-Administered Medications Medication Dose Route Frequency Provider Last Rate Last Admin acetaminophen (TYLENOL) tablet 650 mg 650 mg Oral Q4H PRN Oren Mireles DO 650 mg at 01/30/25 0056 Or acetaminophen (TYLENOL) solution 650 mg 650 mg Tube Q4H PRN Kiza, Oren Niwemukiza, DO aspirin EC tablet 81 mg 81 mg Oral Daily Oren Mireles DO 81 mg at 01/30/25 0913 bumetanide (BUMEX) injection 1 mg 1 mg Intravenous Q12H [facility] Dominga Muñiz CNP 1 mg at 01/30/25 0510 [Held by provider] escitalopram oxalate (LEXAPRO) tablet 10 mg 10 mg Oral Nightly Oren Mireles DO 10 mg at 01/29/25 0101 heparin (porcine) 25,000 unit/250 mL(100 unit/mL) in D5W infusion 0-70 Units/kg/hr Intravenous Continuous Nevin Matthew MD 16 mL/hr at 01/30/25 0449 16 Units/kg/hr at 01/30/25 0449 heparin bolus from bag 0-5,000 Units 0-5,000 Units Intravenous Continuous PRN Nevin Matthew MD 3,000 Units at 01/29/25 2020 insulin glargine (LANTUS) injection 40 Units 40 Units Subcutaneous BID Dominga Muñiz CNP 40Units at 01/30/25 0913 insulin lispro (AdmeLOG,HumaLOG) injection 0-15 Units 0-15 Units Subcutaneous at bedtime Dominga Muñiz CNP insulin lispro (AdmeLOG,HumaLOG) injection 0-30 Units 0-30 Units Subcutaneous TID AC Dominag Muñiz CNP [Held by provider] lisinopriL (PRINIVIL,ZESTRIL) tablet 5 mg 5 mg Oral Daily Oren Mireles DO [Held by provider] metoprolol succinate (TOPROL-XL) 24 hr tablet 25 mg 25 mg Oral Daily Oren Mireles DO norepinephrine (LEVOPHED) 4 mg in sodium chloride 0.9% (NS) 250 mL infusion 0- 100 mcg/min Intravenous Continuous Nevin Matthew MD 18.8 mL/hr at 01/28/25 2205 5 mcg/min at 01/28/25 220 And VASOpressin (PITRESSIN) 0.2 unit/mL infusion 0.03 Units/min Intravenous Continuous PRN Familia Matthew MD ondansetron (ZOFRAN) injection 4 mg 4 mg Intravenous Q6H PRN AntoninoDominga crawford CNP 4 mg at 01/29/25 1538 pantoprazole (PROTONIX) EC tablet 40 mg 40 mg Oral Daily [place] craw[place] CNP 40 mg at 01/30/25 0913 penicillin G potassium 3 million unit/50 mL IVPB 3 Million Units 3 Million Units Intravenous Q4H Dominga Muñiz CNP 200 mL/hr at 01/30/25 0918 3 Million Units at 01/30/25 0918 perflutren lipid microspheres (DEFINITY) 0.143 mg/mL solution 0-10 mL of mixture 0-10 mL of mixtureIntravenous Once in imaging Dominga Muñiz CNP senna-docusate (SENNA-S) 8.6-50 mg per tablet 1 tablet 1 tablet Oral BID Kiza, Oren Niwemukiza, DO 1 tablet at 01/30/25 0913 simvastatin (ZOCOR) tablet 40 mg 40 mg Oral at bedtime Kiza, Oren Niwemukiza, DO 40 mg at 01/29/25 2106 sodium chloride (PF) (NS) flush 5 mL 5 mL Intravenous PRN Kiza, Oren Niwemukiza, DO And sodium chloride (PF) (NS) flush 5 mL 5 mL Intravenous Q8H TEREZA Kiza, Oren Niwemukiza, DO 5 mL at 01/30/25 0510 And sodium chloride 0.9% (NS) 0-150 mL/hr Intravenous PRN Kiza, Oren Niwemukiza, DO Stopped at 855 Cosigned by Neetu Pinto MD at 01/30/2025 1:16 PM EDT Associated attestation - Neetu Pinto MD - 01/30/2025 1:16 PM EDT I have seen and examined the patient with the cardiology nurse practitioner and agree to the assessment and plan as documented in the note. Patient septic shock seems to be resolving. He is off IV pressors. More awake and more comfortable today. Echocardiogram unfortunately show a new bioprosthetic valve regurgitation with inability to exclude infective process of the valve. Will plan for SHAHAB on Tuesday by that time patient will be more hemodynamically stable and hopefully completely out of his septic shock. Continue antibiotic therapy per ICU and primary team. Once blood pressure is more stable can resume his goal-directed medical therapy such as metoprolol. He remained in A-fib with controlled ventricular rate. He has chronic/permanent A-fib. * Noemi Andrade MD - 01/30/2025 9:00 AM EDT [facility] PROGRESS NOTE Patient Name: Andrew Arnold : 1945 Assessment and Plan Andrew Arnold is a 79 y.o. male patient of Vivien Foreman MD with history of CAD s/p CABG, atrial fibrillation on Eliquis, DM II, and mood disorder who presented to [facility] on01/28/2025 with tachycardia and generalized malaise which started few hours after an outpatient lefthand abscess drainage. Left upper extremity cellulitis/abscess Orthopedics was consulted, may need I&D. Continue empiric antibiotics. Await input from orthopedics. Concern for toxic shock syndrome Acute encephalopathy Septic Shock Sepsis was present on admission and felt to be due to soft tissue infection. Was in septic shock requiring vasopressors, now off pressors. Blood culture growing Streptococcus. Lactic acid 5.8 >> 2.9. He was started on vancomycin and Zosyn. Appreciate ID input, antibiotic changed to penicillin G. DM II with diabetes ketoacidosis Blood glucose 528. BHB 4.2. pH 7.3. UA positive for ketones BG is better controlled on insulin gtt. Continue to monitor. Elevated troponin Transaminitis Troponin 708. Currently denying chest pain. Interval rise in Trop T 247 >> 1046 >> 2216. Although likely demand ischemia from sepsis. Appreciate Cardiology input. Continue heparin gtt. AST 139. ALT 102, now 1591/1419 INR 2.1. Elevated LFTs likely due to shock. Continue to monitor. DOMENICO on chronic kidney disease Anion gap metabolic acidosis Baseline Cr around 1 Cr 1.65 >> 2.26. Likely due to sepsis. He is nonoliguric. Hold lisinopril. Evaluated by nephrology, continue to monitor. May need renal replacement therapy if worsening acidosis and renal function. Hyperkalemia In the setting of DOMENICO with shock. K5.4. Lokelma per nephrology. Continue to monitor. Urinary retention Brenner catheter was placed on 01/30. Monitor UOP. CAD status post CABG Atrial fibrillation with RVR Presented with A-fib with RVR to as high as 162. Currently rate controlled. Most recent heart rate 97 Continue home aspirin, statin, beta-julia. Hold home lisinopril due to shock. Holding home Eliquis for heparin gtt. Mood disorder Lexapro currently on hold. Resolved acute medical issues Discharge Planning Patient Medically Ready for Discharge: no Patient requires continued hospitalization due to: Ongoing management of septic shock. Expected Date of Discharge: 01/31. Expected Discharge Location: Home Quality Measures DVT Prophylaxis: heparin gtt Brenner Catheter: absent Code Status Full Code - Unverified Primary Contact Information Subjective Examined at bedside, awake, alert, no acute distress. Still pain with attempted movement of the LUE. Blood culture growing Streptococcus. Interval worsening renal function with hyperkalemia. Nursing reported voiding difficulty, Brenner was placed this afternoon. Objective BP (!) 101/59 Pulse 79 Temp 97.6 F (36.4 C) (Oral) Resp 18 Ht 5' 7 Wt 107.9 kg (237 lb 14 oz) SpO2 96% BMI 37.26 kg/m Physical Examination General Appearance: Comfortable in bed, awake and alert, [place], no acute distress. Significant other was present. HEENT: Head- normocephalic; Eyes- EOMI, sclera anicteric; Throat- mucous membranes dry. Cardiovascular: regular rate and rhythm; normal S1, S2; no murmurs, rubs, clicks or gallops; peripheral edema 1+, LUE is swollen with tenderness in the dorsum of the left hand, warm and mildly erythematous with a stitched nidus of incision. Respiratory: lungs clear to auscultation; without wheezes, rales or rhonchi; on room air Abdomen: Full and soft, positive bowel sounds, no G/R. Neurological: oriented x 3; normal speech; no focal findings or movement disorder noted Musculoskeletal: no significant deformity or tenderness to palpation Skin: normal coloration, warm and dry. Psych: normal mood and affect, no agitation. * Dominga Muñiz CNP - 01/30/2025 8:34 AM EDT CRITICAL CARE PROGRESS 01/30/2025 Patient: Andrew Arnold Date of : 1945 Site: [facility] Provider: Dominga Muñiz CNP ASSESSMENT/PLAN: Andrew Arnold 79 y.o. male with history of HTN, HLD, CAD, DM Type II, atrial fibrillation, TIA who was admitted on 01/28 with septic shock and left hand abscess. The patient underwent left ganglion cystI&D last week per orthopedic surgery. He reports increased pain and swelling since. He has beenevaluated in the ED x 3 (01/26, 01/26, 01/27) for pain and swelling. He was evaluated by orthopedic surgery yesterday. He presented to the ED and was admitted to the ICU for septic shock, DKA, and DOMENICO. Respiratory: Acute Hypoxemic Respiratory Failure. Currently on 4L. CXR reviewed. Encourage good pulmonary hygiene. Diuresis. Goal sat 90-93%. Cardiovascular: Shock, septic +/- cardiogenic. Blood cultures growing Group B strep. UA+. Send urine culture pending. MRSA probe negative. Aerobic/anaerobic wound culture of left hand pending. Changed from Zosyn, Vancomycin, Clindamycin to PCN G. TTE with global systolic dysfunction with LVEF 43%, reduced RV, pul hypertension with RVSP 61; moderate tricuspid valve regurgitation; AI,MR, TR worse from previous echo. Off Norepinephrine. Goal MAP >65. Trend lactate. NSTEMI. Initial EKG AF with RVR. EKG reviewed. TTE with global systolic dysfunction with LVEF 43%, reduced RV, pul hypertension with RVSP 61; moderate tricuspid valve regurgitation; AI,MR, TR worse from previous echo On heparin infusion. On aspirin, statin. Acute HFpEF. Biprosthetic aortic valve. Stop IVFs. BNP grossly elevated at >50K. TTE with globalsystolic dysfunction with LVEF 43%, reduced RV, pul hypertension with RVSP 61; moderate tricuspid valve regurgitation; AI,MR, TR worse from previous echo. Daily weights. Strict I/O. Diurese as able. Atrial Fibrillation. Metoprolol and Eliquis held on admission. Re introduce as able. Neuro/Muscular: Acute Metabolic Encephalopathy. Likely secondary to sepsis. Currently alert and oriented. Check ammonia level. Serial neuro exams. Renal: Acute Kidney Injury. Strict I/O. Avoid nephrotoxins. Medically manage electrolytes. Renal ultrasound negative. CPK 828. Consult nephrology. Trend Cr. Anion gap metabolic acidosis. Combined DOMENICO, lactic acidosis +/- DKA. Ketones also possibly elevateddue to Semaglutide use. VBG reviewed. Trend. Hypervolemic hyponatremia. Diuresing. GI/Nutrition: Diet per primary. Shock liver. Check abdominal ultrasound. Check coags, ammonia. Trend. Endocrine: DKA. DM Type II. A1c 8.7. Initial BHB >4. Ketones also possibly elevated due to Semaglutide use.Sp DKA protocol. Start Lantus 40u BID with ISS coverage. Goal BG <180. Heme/Onc: Anemia. Hemoglobin stable. Trend. ID: Sepsis with acute organ dysfunction and shock. BC growing group B strep. UC pending. Aerobic/anaerobic wound culture pending. Changed from Zosyn, Vancomycin, Clindamycin to PCN G. ID following. Left hand cellulitis with abscess. Sp left hand ganglion cyst I&D 01/26. Has had 3 ED visits since. Left hand xray without gas formation; avascular necrosis and degenerative changes. CT left arm diffuse soft tissue swelling along the dorsal aspect of the forearm/wrist, negative for septic arthritis. Left hand wound opened with purulent drainage noted. Evaluated by orthopedic surgery. Aerobic/an aerobic wound culture pending. Possible future I&D per ortho. Prophylaxis: Protonix Heparin gtt Other: Full code. 35 minutes of critical time provided thus far today not including procedures. SUBJECTIVE: History Since Last Visit: off norepinephrine. Worsening renal function. Pending Lab and Radiology Results Order Current Status Obtain venous blood gases and perform Collected (01/30/25 0818) APTT In process Ammonia In process Urine Aerobic Culture In process Blood Culture Aerobic/Anaerobic Preliminary result Blood Culture Aerobic/Anaerobic Preliminary result Interpretation of Testing: I personally reviewed the EKG and agree with the interpretation(s). Review of Systems: All other systems reviewed and negative other than HPI OBJECTIVE: Physical Examination: BP (!) 101/59 Pulse 79 Temp 97.6 F (36.4 C) (Oral) Resp 18 Ht 5' 7 Wt 107.9 kg (237 lb 14 oz) SpO2 96% BMI 37.26 kg/m Temp: [97.5 F (36.4 C)-98.4 F (36.9 C)] 97.6 F (36.4 C) Heart Rate: [78-90] 79 Resp: [11-24] 18 BP: (82-118)/(47-82) 101/59 SpO2 Readings from Last 1 Encounters: 01/30/25 96% Intake/Output Summary (Last 24 hours) at 01/30/2025 0834 Last data filed at 01/30/2025 0500 Gross per 24 hour Intake 971.71 ml Output 1175 ml Net -203.29 ml Vital Signs Reviewed. Gen: Alert and oriented x 3, In no apparent distress HEENT: Head: Normocephalic, no lesions, without obvious abnormality. Pharynx: Dental Hygiene adequate. Normal buccal mucosa. Normal pharynx. Neck: nontender, full range of motion, no mass, no focal lymphadenopathy Cardio: regular rate and rhythm, no murmur, brisk capillary refill Resp: distant breath sounds bilaterally, no wheezes or crackles, no tachypnea or accessory muscle use Abd: soft, nontender, nondistended, no hepatosplenomegaly, no mass, normal bowel sounds MSK: Moves all four extremities spontaneously. Neuro: Grossly normal without focal findings Skin: no rashes, no jaundice, left hand wound draining purulent. MEDICATIONS: Current Medications[1] Current HOME Medications: Prior to Admission Medications[2] Current HOSPITAL Medications: Current Hospital Medications[3] [x] Medications reviewed. [x] Labs reviewed. Pertinent findings noted: WBC 20 [x] Radiology reviewed. Pertinent findings noted: CT left upper extremity [] Pathology reviewed. Pertinent findings noted: Family Update/ Code Status: Full code. Laboratory and Additional Data Reviewed: Reviewed 01/30/25 8:34 AM: Laboratory, Microbiology, Radiology, Cardiology, and Medications [1] Current Facility-Administered Medications Medication Dose Route Frequency Provider Last Rate Last Admin acetaminophen (TYLENOL) tablet 650 mg 650 mg Oral Q4H PRN Oren Mireles DO 650 mg at 01/30/25 0056 Or acetaminophen (TYLENOL) solution 650 mg 650 mg Tube Q4H PRN Oren Mireles DO aspirin EC tablet 81 mg 81 mg Oral Daily Oren Mireles, DO 81 mg at 01/29/25 0850 bumetanide (BUMEX) injection 1 mg 1 mg Intravenous Q12H TEREZA Dominga Muñiz CNP 1 mg at 01/30/25 0510 [Held by provider] escitalopram oxalate (LEXAPRO) tablet 10 mg 10 mg Oral Nightly Oren Mireles DO 10 mg at 01/29/25 0101 heparin (porcine) 25,000 unit/250 mL(100 unit/mL) in D5W infusion 0-70 Units/kg/hr Intravenous Continuous Nevin Matthew MD 16 mL/hr at 01/30/25 0449 16 Units/kg/hr at 01/30/25 0449 heparin bolus from bag 0-5,000 Units 0-5,000 Units Intravenous Continuous PRN Nevin Matthew MD 3,000 Units at 01/29/25 2020 insulin glargine (LANTUS) injection 40 Units 40 Units Subcutaneous BID Dominga Muñiz CNP 40Units at 01/29/25 2228 insulin lispro (AdmeLOG,HumaLOG) injection 0-15 Units 0-15 Units Subcutaneous at bedtime Dominga Muñiz CNP insulin lispro (AdmeLOG,HumaLOG) injection 0-30 Units 0-30 Units Subcutaneous TID AC Dominga Muñiz CNP [Held by provider] lisinopriL (PRINIVIL,ZESTRIL) tablet 5 mg 5 mg Oral Daily Oren Mireles DO [Held by provider] metoprolol succinate (TOPROL-XL) 24 hr tablet 25 mg 25 mg Oral Daily Oren Mireles DO norepinephrine (LEVOPHED) 4 mg in sodium chloride 0.9% (NS) 250 mL infusion 0- 100 mcg/min Intravenous Continuous Nevin Matthew MD 18.8 mL/hr at 01/28/255 5 mcg/min at 01/28/252204 And VASOpressin (PITRESSIN) 0.2 unit/mL infusion 0.03 Units/min Intravenous Continuous PRN Familia Matthew MD ondansetron (ZOFRAN) injection 4 mg 4 mg Intravenous Q6H PRN Dominga Muñiz CNP 4 mg at 01/29/25 1538 pantoprazole (PROTONIX) EC tablet 40 mg 40 mg Oral Daily Dominga Muñiz CNP penicillin G potassium 3 million unit/50 mL IVPB 3 Million Units 3 Million Units Intravenous Q4H Dominga Muñiz CNP 200 mL/hr at 01/30/25 0451 3 Million Units at 01/30/25 0451 perflutren lipid microspheres (DEFINITY) 0.143 mg/mL solution 0-10 mL of mixture 0-10 mL of mixtureIntravenous Once in imaging Dominga Muñiz CNP senna-docusate (SENNA-S) 8.6-50 mg per tablet 1 tablet 1 tablet Oral BID Kiza, Oren Niwemukiza, DO 1 tablet at 01/29/252105 simvastatin (ZOCOR) tablet 40 mg 40 mg Oral at bedtime Kiza, Oren Niwemukiza, DO 40 mg at 01/29/252105 sodium bicarbonate in D5W 150 mEq/1,000 mL infusion 75 mL/hr Intravenous Continuous Dominga Muñiz CNP sodium chloride (PF) (NS) flush 5 mL 5 mL Intravenous PRN Kiza, Oren Niwemukiza, DO And sodium chloride (PF) (NS) flush 5 mL 5 mL Intravenous Q8H TEREZA Kiza, Oren Niwemukiza, DO 5 mL at 01/30/25 0510 And sodium chloride 0.9% (NS) 0-150 mL/hr Intravenous PRN Kiza, Oren Niwemukiza, DO Stopped at 855 [2] No outpatient medications have been marked as taking for the 01/28/25 encounter (Hospital Encounter). [3] acetaminophen (TYLENOL) tablet 650 mg, 650 mg, Oral, Q4H PRN OR acetaminophen (TYLENOL) solution 650 mg, 650 mg, Tube, Q4H PRN aspirin EC tablet 81 mg, 81 mg, Oral, Daily bumetanide (BUMEX) injection 1 mg, 1 mg, Intravenous, Q12H TEREZA [Held by provider] escitalopram oxalate (LEXAPRO) tablet 10 mg, 10 mg, Oral, Nightly heparin (porcine) 25,000 unit/250 mL(100 unit/mL) in D5W infusion, 0-70 Units/kg/hr, Intravenous, Continuous heparin bolus from bag 0-5,000 Units, 0-5,000 Units, Intravenous, Continuous PRN insulin glargine (LANTUS) injection 40 Units, 40 Units, Subcutaneous, BID insulin lispro (AdmeLOG,HumaLOG) injection 0-15 Units, 0-15 Units, Subcutaneous, at bedtime ANDNotify physician, , , Until Discontinued insulin lispro (AdmeLOG,HumaLOG) injection 0-30 Units, 0-30 Units, Subcutaneous, TID AC [Held by provider] lisinopriL (PRINIVIL,ZESTRIL) tablet 5 mg, 5 mg, Oral, Daily [Held by provider] metoprolol succinate (TOPROL-XL) 24 hr tablet 25 mg, 25 mg, Oral, Daily norepinephrine (LEVOPHED) 4 mg in sodium chloride 0.9% (NS) 250 mL infusion, 0- 100 mcg/min, Intravenous, Continuous AND VASOpressin (PITRESSIN) 0.2 unit/mL infusion, 0.03 Units/min, Intravenous, Continuous PRN ondansetron (ZOFRAN) injection 4 mg, 4 mg, Intravenous, Q6H PRN pantoprazole (PROTONIX) EC tablet 40 mg, 40 mg, Oral, Daily penicillin G potassium 3 million unit/50 mL IVPB 3 Million Units, 3 Million Units, Intravenous, Q4H perflutren lipid microspheres (DEFINITY) 0.143 mg/mL solution 0-10 mL of mixture, 0-10 mL of mixture, Intravenous, Once in imaging senna-docusate (SENNA-S) 8.6-50 mg per tablet 1 tablet, 1 tablet, Oral, BID simvastatin (ZOCOR) tablet 40 mg, 40 mg, Oral, at bedtime Saline lock IV, , , Continuous AND sodium chloride (PF) (NS) flush 5 mL, 5 mL, Intravenous, PRNAND sodium chloride (PF) (NS) flush 5 mL, 5 mL, Intravenous, Q8H TEREZA AND sodium chloride 0.9% (NS), 0-150 mL/hr, Intravenous, PRN Cosigned by Negro Talbert MD at 01/30/2025 1:37 PM EDT Associated attestation - Negro Talbert MD - 01/30/2025 1:37 PM EDT I personally examined and interviewed the patient with the EXCELLENCE MANAGER. SUBJECTIVE: 79-year-old male admitted with complaints of palpitations and sob. Recent left ganglion cyst removal. INTERVAL: No acute events overnight. EXAM: Alert and oriented, no acute distress CTAB, no crackles or wheeze Irregular, normal rate Left wrist edema, no drainage No lower extremity edema ASSESSMENT: Septic shock Left wrist cellulitis Streptococcus agalactiae bacteremia Acute hypoxic respiratory failure Elevated troponin, likely demand ischemia Chronic atrial fibrillation CAD s/p CABG DOMENICO PLAN: Continue antibiotic, de-escalate based on cultures Repeat blood cultures Possible I&D for source control SHAHAB prior to discharge to rule out vegetation Continue supplemental oxygen to maintain sat >90% Wean norepi to MAP goal >65 Trend troponin Continue heparin gtt Strict I&Os, diuresis, Nephro consult Full code. I spent 35 minutes in the intensive care unit providing critical care [facility]. My time managing this critically ill patient included review of interval history, laboratories, radiology and consultation reports; performing a physical examination; discussing the patient with the multi-disciplinary team and managing life sustaining therapies to prevent imminent clinical deterioration, including managing vent support. * Noemi Andrade MD - 01/29/2025 11:34 AM EDT [facility] PROGRESS NOTE Patient Name: Andrew Arnold DOB: 1945 Assessment and Plan Andrew Arnold is a 79 y.o. male patient of Vivien Foreman MD with history of CAD s/p CABG, atrial fibrillation on Eliquis, DM II, and mood disorder who presented to [facility] on01/28/2025 with tachycardia and generalized malaise which started few hours after outpatient left hand abscess drainage. Concern for toxic shock syndrome Acute encephalopathy Septic Shock Sepsis was present on admission and felt to be due to soft tissue infection. He is in septic shock requiring vasopressors. Blood culture growing Streptococcus in 2/2 bottles. Lactic acid 5.8 >> 2.9. He was started on vancomycin and Zosyn. Continue fluid support. ID consultation. DM II with diabetes ketoacidosis Blood glucose 528. BHB 4.2. pH 7.3. UA positive for ketones BG is better controlled on insulin gtt. Continue to monitor. Elevated troponin Transaminitis Troponin 708. AST 139. ALT 102 Currently denying chest pain. Interval rise in Trop T 247 >> 1046 >> 2216. Although likely demand ischemia from sepsis his history of CAD s/p CABG is a concern. Continue heparin gtt. Will ask cardiology to evaluate. Elevated LFTs likely due to shock. DOMENICO on chronic kidney disease Baseline Cr around 1 Cr 1.65 >> 2.26. Likely due to sepsis. He is nonoliguric. Hold lisinopril. Monitor closely. CAD status post CABG Atrial fibrillation with RVR Presented with A-fib with RVR to as high as 162. Currently rate controlled. Most recent heart rate 97 Continue home aspirin, statin, beta-julia. Hold home lisinopril due to shock. Holding home Eliquis for heparin gtt. Mood disorder Lexapro currently on hold. Resolved acute medical issues Discharge Planning Patient Medically Ready for Discharge: no Patient requires continued hospitalization due to: Ongoing management of septic shock. Expected Date of Discharge: 01/31. Expected Discharge Location: Home Quality Measures DVT Prophylaxis: heparin gtt Brenner Catheter: absent Code Status Full Code - Unverified Primary Contact Information Subjective He was seen and examined at bedside, awake and alert, supine in bed, in no acute distress, He is still on vasopressors albeit being gradually weaned. He denied chest pain or SOB though troponin continues to rise. Objective BP (!) 87/59 Pulse 90 Temp 97.5 F (36.4 C) Resp (!) 19 Ht 5' 7 Wt 107.9 kg (237 lb 14 oz) SpO2 (!) 89% BMI 37.26 kg/m Physical Examination General Appearance: Supine in bed, awake and alert, conversant, [place] [employer]. Family members were present. HEENT: Head- normocephalic; Eyes- EOMI, sclera anicteric; Throat- mucous membranes dry. Cardiovascular: regular rate and rhythm; normal S1, S2; no murmurs, rubs, clicks or gallops; peripheral edema 1+, LUE is swollen with tenderness in the dorsum of the left hand, warm and mildly erythematous with a stitched nidus of incision. Respiratory: lungs clear to auscultation; without wheezes, rales or rhonchi; on room air Abdomen: soft, non-tender, non-distended Neurological: oriented x 3; normal speech; no focal findings or movement disorder noted Musculoskeletal: no significant deformity or tenderness to palpation Skin: normal coloration, warm and dry. Psych: normal mood and affect, no agitation. * Radha Brar [facility],PharmD - 01/28/2025 10:55 PM EDT Pharmacy to Dose Antimicrobials Assessment / Plan: Andrew Arnold is a 79 y.o. male initiated on vancomycin for sepsis. Vancomycin trough goal is 15-20 mcg/mL. Will obtain level when at steady state or when clinically appropriate. Will monitor serum creatinine levels and urine output (if available) daily. Pharmacy will continue to follow and make adjustments as needed. Please use addwish to call pharmacy or secure chat the assigned pharmacist with questions. Dosing for this admission: Date Dose and interval before level (or initial dose) Level Dose and interval after level Notes/Follow-Up 01/28 2000 mg x1 -- -- Level for 01/29 @2100 Other active antibiotics include: piperacillin-tazobactam clindamycin Objective: Lab Results Component Value Date CREATININE 1.65 (H) 01/28/2025 CREATININE 0.99 11/09/2024 CREATININE 1.07 05/11/2024 CREATININE 1.01 12/02/2023 CREATININE 0.82 07/12/2023 Lab Results Component Value Date WBC 18.14 (H) 01/28/2025 WBC 5.58 12/02/2023 WBC 7.02 07/12/2023 WBC 6.49 01/21/2023 WBC 6.34 02/17/2022 Ht Readings from Last 1 Encounters: 01/28/25 5' 7 (170.2 cm) Wt Readings from Last 1 Encounters: 01/28/25 99.8 kg (220 lb) [place] body weight: 66.1 kg (145 lb 11.6 oz) Adjusted ideal body weight: 79.6 kg (175 lb 6.9 oz) Patient Tmax (last 24 hours): 101 F Micro: Pharmacy Personnel: Radha Brar RPh,PharmD Contact: or Vocera documented in this [id number] Hospital course Narrative* Kelly Burton MD - 02/09/2025 11:14 AM EDT [facility] DISCHARGE SUMMARY -- [facility] Andrew Arnold : 1945 Admitted: 01/28/2025 Discharge Date: 02/09/25 PCP Handoff Recommended Outpatient follow-up Follow-up with primary care provider. Follow-up with orthopedics. Follow-up with ID clinic. Follow-up with gastroenterology clinic. Results Pending At Discharge None Clinical Summary Assessment and Plan Andrew Arnold is a 79 y.o. male patient of Vivien Foreman MD with history of CAD s/p CABG, atrial fibrillation on Eliquis, DM II, and mood disorder who presented to [facility] on01/28/2025 with tachycardia and generalized malaise which started few hours after an outpatient lefthand abscess drainage. Hospital course: patient was admitted for left upper extremity cellulitis and abscess. S/p I&D and irrigation by Ortho. Patient to follow-up outpatient in 2 weeks with orthopedic clinic. Wound and blood cultures are growing group B strep. Repeat cultures on 01/27 were negative so far. Patient was evaluated by ID, to continue Rocephin on discharge. To follow-up outpatient with ID. Had acute on chronic anemia. Normal iron panel. Was evaluated by GI, no inpatient intervention by GI, will continue PPI on discharge. Hemoglobin discharge 7.6. Patient was maintained on Eliquis and aspirin. Due toanemia, elevated INR 1.5- 1.8; I will not be safe to discharge patient on Eliquis for his A-fib. Be d ischarging patient on aspirin. Patient to follow-up outpatient with his primary care provider with repeat labs to be able to safely reintroduce anticoagulation. Patient was noted to be hypoglycemic, he was on high doses of insulin 25 twice daily, patient reported treatment was D5 fluids. Will adjust insulin to 5 units nightly to provide basal coverage, insulin dosing to be adjusted as needed as ou tpatient. Patient was evaluated by PT, will be discharged to rehab. Patient was having urinary retention during admission, failed voiding trial, had to reinsert Brenner. Patient to follow-up with urology outside for Brenner catheter exchange. Patient was having oral thrush, dysphagia. To continue fluconazole for presumed esophageal candidiasis. Statins and cilostazol stopped during that time, to be resumed after. Diuresis, PATRICIA inhibitor's to be continued on discharge. Left upper extremity cellulitis/abscess Group B strep bacteremia He is s/p left hand ganglion cyst I&D on 01/26. CT of the LUE on 01/27 showed moderate amount of diffuse soft tissue swelling along the dorsal aspect of the forearm and wrist extending into the hand to the level of the metacarpals. No evidence of septic arthritis. S/p irrigation and debridement of the wound. Wound culture from 01/30 grew Streptococcus agalaciae. Blood Cx on 01/30 grew strep agalactiae, repeat cx on 02/01 came positive. Repeat blood cultures NGTD. Continue penicillin G. Per ID, To be discharged on ceftriaxone for easement of administration IDDM Hypoglycemia Insulin regimen adjusted as above. Elevated troponin Elevated liver transaminases; shock liver Troponin 708 >> 2278 >> 721. Likely demand ischemia from sepsis. Chest pain-free He was evaluated by cardiology, was on heparin gtt now discontinued. Elevated LFTs likely from shock, LFTs improved. DOMENICO on chronic kidney disease DOMENICO without ATN Anion gap metabolic acidosis Baseline Cr around 1 Cr peaked at 3.06, now 1.50. He is nonoliguric, holding lisinopril. Renal ultrasound with no hydronephrosis, evidence of urinary retention. Evaluated by nephrology, continue to monitor. Urinary retention Bladder scan every 6 hours, already had straight cath x 3. Will insert Brenner if continues retaining then outpatient follow-up with urology. Flomax CAD status post CABG Atrial fibrillation When presented was in RVR, now rate controlled. Continue home aspirin, statin, beta-julia. holding Eliquis Resumed PATRICIA inhibitor, and diuresis on discharge. Acute on chronic anemia Hemoglobin baseline 9-10. Currently 7-8. Positive Hemoccult. Had colonoscopy 10 years ago, positive for hemorrhoids. GI evaluated the patient,; in the absence of evidence of GI bleed, GI deferred endoscopy, okay to resume Eliquis. Continue PPI Mood disorder Lexapro. Esophageal candidiasis Fluconazole for 2 weeks. Holding statin while on fluconazole. Discharge Medications Discharge Medications PAUSE taking these medications Details apixaban 5 mg Tab Wait to take this until your doctor or other care provider tells you to start again. Stop taking Eliquis until you follow-up with your primary care provider with repeat labs to make sure hemoglobin is stable Commonly known as: Eliquis Take 1 (one) tablet (5 mg total) by mouth 2 (two) times a day . Quantity: 180 tablet simvastatin 40 MG tablet Wait to take this until: February 21, 2025 Commonly known as: ZOCOR Take 1 (one) tablet (40 mg total) by mouth at bedtime . Quantity: 90 tablet New Medications Details cefTRIAXone IV (Outpatient Therapy) Infuse 2,000 (two thousand) mg into a venous catheter daily . Obtain labs for cbc,crp,esr and bmp weekly for 3 wks. Follow up with the EXCELLENCE MANAGER weekly and clinic at [facility]. End: 02/27/25 Quantity: 42 each fluconazole 200 MG tablet Commonly known as: DIFLUCAN Start taking on: February 10, 2025 Take 1 (one) tablet (200 mg total) by mouth daily for 10 days Start: 02/10/25. Quantity: 10 tablet pantoprazole 40 MG tablet Commonly known as: PROTONIX Take 1 (one) tablet (40 mg total) by mouth 2 (two) times a day . Quantity: 60 tablet senna-docusate 8.6-50 mg Commonly known as: SENNA-S Take 1 (one) tablet by mouth 2 (two) times a day for 10 days . Quantity: 20 tablet tamsulosin 0.4 mg capsule Commonly known as: FLOMAX Take 1 (one) capsule (0.4 mg total) by mouth after evening meal . Quantity: 30 capsule Modified Medications Details Lantus U-100 Insulin 100 unit/mL injection Generic drug: insulin glargine What changed: how much to take Inject 5 (five) Units under the skin nightly . Quantity: 1.5 mL Medications To Continue Details acetaminophen 325 MG tablet Commonly known as: TYLENOL Take 2 (two) tablets (650 mg total) by mouth every 6 (six) hours as needed for pain (1-2 tablets) . ascorbic Acid 500 mg Cper Commonly known as: VITAMIN C Take 1 (one) capsule (500 mg total) by mouth every other day . aspirin 81 MG EC tablet Take 1 tablet (81 mg total) by mouth daily. Quantity: 90 tablet blood sugar diagnostic strips Commonly known as: ReliOn Prime Test Strips E11.65 Use as directed 4 times per day. Quantity: 150 strip bumetanide 1 MG tablet Commonly known as: BUMEX Take 0.5 (one-half) tablet (0.5 mg total) by mouth every other day . Quantity: 23 tablet docusate sodium 100 MG capsule Commonly known as: COLACE Take 1 (one) capsule (100 mg total) by mouth 2 (two) times a day as needed . escitalopram oxalate 10 MG tablet Commonly known as: LEXAPRO Take 1 (one) tablet (10 mg total) by mouth nightly . Quantity: 30 tablet FreeStyle Johnny 2 Sensor Kit Generic drug: flash glucose sensor 1 kit by Miscellaneous route every 14 (fourteen) days Use as directed to apply new sensor . Quantity: 2 kit insulin syringe-needle U-100 0.3 mL 31 gauge x 5/16 Syrg Use as directed QID . Quantity: 400 each lancets [facility] Use to check BG QID SolusV2 brand Dx E11.65. Quantity: 200 each lisinopriL 5 MG tablet Commonly known as: PRINIVIL,ZESTRIL Take 1 (one) tablet (5 mg total) by mouth daily . Quantity: 90 tablet metoprolol succinate 25 MG 24 hr tablet Commonly known as: TOPROL-XL Take 1 (one) tablet (25 mg total) by mouth daily . Quantity: 90 tablet Ozempic 1 mg/dose (4 mg/3 mL) Pen Generic drug: semaglutide Inject 0.75 mL (1 mg total) under the skin once a week . Quantity: 9 mL pen needle, diabetic 31 gauge x 3/16 Ndle Use as directed 4 times daily. . Quantity: 400 each potassium chloride SA 10 MEQ tablet Commonly known as: K-DUR,KLOR-CON M10 Take 1 (one) tablet (10 mEq total) by mouth every other day . Quantity: 45 tablet psyllium 0.52 gram capsule Commonly known as: METAMUCIL Take 2 (two) capsules (1.04 g total) by mouth as needed . Stopped Medications cilostazoL 100 MG tablet Commonly known as: PLETAL clindamycin 300 MG capsule Commonly known as: CLEOCIN insulin lispro 100 unit/mL injection Commonly known as: AdmeLOG,HumaLOG oxyCODONE-acetaminophen 5-325 mg per tablet Commonly known as: PERCOCET Physician(s) Follow Up: Darrell Norman CNP [address] [facility] [address] Schedule an appointment as soon as possible for a visit weekly telehealth Kunal Norman MD [address] [facility] [address] Schedule an appointment as soon as possible for a visit at [facility] [address] [place] [address] Condition at Discharge: Stable Disposition: SNF I reviewed discharge recommendations with the patient in person. Patient instructions, including activity, were given to the patient/family at discharge. On day of discharge I saw Andrew Arnold and spent: > 30 minutes on discharge. Completed by: Kelly Burton MD on 02/09/25, 11:14 AM documented in this [id number] [facility] 02-08-2025 [facility]08-01-2025 [facility]07-31-2025 [facility]07-31-2025 Miscellaneous Notes* Quick Note - Jenaro Sanchez RN - 02/07/2025 9:35 AM EDT Deterioration Index score is 55. This RN will review chart and see pt on rounds. * Plan of Care - Girish Meza RN - 02/07/2025 2:52 AM EDT Problem: Actual or potential alteration in health Goal: Absence of healthcare acquired conditions Outcome: Partially Met Goal: Knowledge of Interdisciplinary Plan of Care Outcome: Partially Met Goal: Knowledge of Enviroment Outcome: Partially Met Problem: Pressure Injury, Risk of Goal: Absence of pressure injury Outcome: Partially Met Problem: Pain Goal: Reduced pain sensation Outcome: Partially Met Goal: Control of acute pain to acceptable level Outcome: Partially Met Goal: Able to cope with pain Outcome: Partially Met Goal: Able to achieve maximum level of physical functioning Outcome: Partially Met Goal: Able to achieve maximum level of psychosocial functioning Outcome: Partially Met Problem: Falls, Risk of Goal: Absence of falls Outcome: Partially Met Goal: Absence of physical injury Outcome: Partially Met * Quick Note - Darya Macias MD - 02/06/2025 9:33 PM EDT [facility] NOTE Contacted by staff regarding patient with urinary retention. Has BPH requiring brenner, was removed 02/06, has not been able to void since. Bladder scan with 500ccs. Action taken: Q6H bladder scans with PRN straight cath for >300ccs. I did not personally evaluate the patient. Treatment is based on review of chart and discussion with nursing staff and treatment team as necessary. * Quick Note - Odalys Palacio RN - 02/06/2025 2:05 PM EDT Pt complaining of mouth pain. Pt's tongue appears swollen and red with white patches. Pt's family requesting a swish to help with the pain. Dr. Burton notified. Oral nystatin order placed. * Plan of Care - Odalys Palacio RN - 02/06/2025 11:13 AM EDT Plan of care continued. All interventions and education ongoing. Problem: Actual or potential alteration in health Goal: Absence of healthcare acquired conditions Outcome: Partially Met Goal: Knowledge of Interdisciplinary Plan of Care Outcome: Partially Met Goal: Knowledge of Enviroment Outcome: Partially Met Problem: Pressure Injury, Risk of Goal: Absence of pressure injury Outcome: Partially Met Problem: Pain Goal: Reduced pain sensation Outcome: Partially Met Goal: Control of acute pain to acceptable level Outcome: Partially Met Goal: Able to cope with pain Outcome: Partially Met Goal: Able to achieve maximum level of physical functioning Outcome: Partially Met Goal: Able to achieve maximum level of psychosocial functioning Outcome: Partially Met Problem: Falls, Risk of Goal: Absence of falls Outcome: Partially Met Goal: Absence of physical injury Outcome: Partially Met * Plan of Care - Maggie Stubbs RN - 02/06/2025 1:35 AM EDT Problem: Actual or potential alteration in health Goal: Absence of healthcare acquired conditions Outcome: Partially Met Goal: Knowledge of Interdisciplinary Plan of Care Outcome: Partially Met Goal: Knowledge of Enviroment Outcome: Partially Met Problem: Pressure Injury, Risk of Goal: Absence of pressure injury Outcome: Partially Met Problem: Pain Goal: Reduced pain sensation Outcome: Partially Met Goal: Control of acute pain to acceptable level Outcome: Partially Met Goal: Able to cope with pain Outcome: Partially Met Goal: Able to achieve maximum level of physical functioning Outcome: Partially Met Goal: Able to achieve maximum level of psychosocial functioning Outcome: Partially Met Problem: Falls, Risk of Goal: Absence of falls Outcome: Partially Met Goal: Absence of physical injury Outcome: Partially Met * Quick Note - Odalys Palacio RN - 02/05/2025 5:[address] Burton notified pt's output for today was 550mL. * Plan of Care - Odalys Palacio RN - 02/05/2025 5:50 PM EDT Plan of care continued. All interventions and education ongoing. Problem: Actual or potential alteration in health Goal: Absence of healthcare acquired conditions 02/05/2025 1750 by Odalys Palacio RN Outcome: Partially Met 02/05/2025 1102 by Odalys Palacio RN Outcome: Partially Met Goal: Knowledge of Interdisciplinary Plan of Care 02/05/2025 1750 by Odalys Palacio RN Outcome: Partially Met 02/05/2025 1102 by Odalys Palacio RN Outcome: Partially Met Goal: Knowledge of Enviroment 02/05/2025 1750 by Odalys Palacio RN Outcome: Partially Met 02/05/2025 1102 by Odalys Palacio RN Outcome: Partially Met Problem: Pressure Injury, Risk of Goal: Absence of pressure injury 02/05/2025 1750 by Odalys Palacio RN Outcome: Partially Met 02/05/2025 1102 by Odalys Palacio RN Outcome: Partially Met Problem: Pain Goal: Reduced pain sensation 02/05/2025 1750 by Odalys Palacio RN Outcome: Partially Met 02/05/2025 1102 by Odalys Palacio RN Outcome: Partially Met Goal: Control of acute pain to acceptable level 02/05/2025 1750 by Odalys Palacio RN Outcome: Partially Met 02/05/2025 1102 by Odalys Palacio RN Outcome: Partially Met Goal: Able to cope with pain 02/05/2025 1750 by Odalys Palacio RN Outcome: Partially Met 02/05/2025 1102 by Odalys Palacio RN Outcome: Partially Met Goal: Able to achieve maximum level of physical functioning 02/05/2025 1750 by Odalys Palacio RN Outcome: Partially Met 02/05/2025 1102 by Odalys Palacio RN Outcome: Partially Met Goal: Able to achieve maximum level of psychosocial functioning 02/05/2025 1750 by Odalys Palacio RN Outcome: Partially Met 02/05/2025 1102 by Odalys Palacio RN Outcome: Partially Met Problem: Falls, Risk of Goal: Absence of falls 02/05/2025 1750 by Odalys Palacio RN Outcome: Partially Met 02/05/2025 1102 by Odalys Palacio RN Outcome: Partially Met Goal: Absence of physical injury 02/05/2025 1750 by Odalys Palacio RN Outcome: Partially Met 02/05/2025 110 by Odalys Palacio RN Outcome: Partially Met * Quick Note - Batsheva Plaza PA-C - 02/05/2025 6:13 AM EDT I was notified by the rapid response nurse of change in deterioration index score. Current Deterioration Index score is 66 Assessment: Signs of clinical deterioration: Tachypnea, hypoxia Likely underlying cause: infection Plan: Intervention warranted: Yes, Interventions perfromed: nursing to recheck patients SPO2 Interventions were based on: Chart review Batsheva Plaza PA-C * Plan of Care - Maggie Stubbs RN - 02/04/2025 7:59 PM EDT Problem: Actual or potential alteration in health Goal: Absence of healthcare acquired conditions Outcome: Partially Met Goal: Knowledge of Interdisciplinary Plan of Care Outcome: Partially Met Goal: Knowledge of Enviroment Outcome: Partially Met Problem: Pressure Injury, Risk of Goal: Absence of pressure injury Outcome: Partially Met Problem: Pain Goal: Reduced pain sensation Outcome: Partially Met Goal: Control of acute pain to acceptable level Outcome: Partially Met Goal: Able to cope with pain Outcome: Partially Met Goal: Able to achieve maximum level of physical functioning Outcome: Partially Met Goal: Able to achieve maximum level of psychosocial functioning Outcome: Partially Met Problem: Falls, Risk of Goal: Absence of falls Outcome: Partially Met Goal: Absence of physical injury Outcome: Partially Met * Sign Off Note - Niharika Delarosa CNP - 02/04/2025 2:14 PM EDT Cardiology Progress Note [facility] Cardiology Sign-Off Discharge Medications: Continue aspirin 81 mg daily, Toprol 12.5 mg daily. Resume oral diuretics and lisinopril when okay with nephrology, resume Zocor 40 mg daily at discharge, recommend to transition back to Eliquis prior to DC if no contraindications, will defer to primary team. Follow-up Imaging, Testing: No additional outpatient testing is recommended at this time. Follow-up Appointments: Follow-up with Dr. Healy as scheduled April 26, 2025 Additional Instructions Reviewed with Patient and/or Family: Compliance with follow-up. Compliance with medications. Assessment/Plan: Echocardiogram with no definitive evidence of vegetation, no further cardiac testing planned, patient to follow-up as outpatient, patient and son updated on results, cardiology will sign off, call with questions. * Plan of Care - Odalys Palacio RN - 02/04/2025 1:37 PM EDT Plan of care continued. All interventions and education ongoing. Problem: Actual or potential alteration in health Goal: Absence of healthcare acquired conditions Outcome: Partially Met Goal: Knowledge of Interdisciplinary Plan of Care Outcome: Partially Met Goal: Knowledge of Enviroment Outcome: Partially Met Problem: Pressure Injury, Risk of Goal: Absence of pressure injury Outcome: Partially Met Problem: Pain Goal: Reduced pain sensation Outcome: Partially Met Goal: Control of acute pain to acceptable level Outcome: Partially Met Goal: Able to cope with pain Outcome: Partially Met Goal: Able to achieve maximum level of physical functioning Outcome: Partially Met Goal: Able to achieve maximum level of psychosocial functioning Outcome: Partially Met Problem: Falls, Risk of Goal: Absence of falls Outcome: Partially Met Goal: Absence of physical injury Outcome: Partially Met * Irina Note - Niharika Delarosa CNP - 02/04/2025 9:54 AM EDT Patient alert to self and place but does have some forgetful conversation, spoke with his son Norman Arnold via telephone regarding SHAHAB, agreeable to proceed and telephone consent obtained, consent placed in chart, approximate time 1 PM, Joel sandoval RN updated. * Plan of Care - Maggie Stubbs RN - 02/03/2025 10:25 PM EDT Problem: Actual or potential alteration in health Goal: Absence of healthcare acquired conditions Outcome: Partially Met Goal: Knowledge of Interdisciplinary Plan of Care Outcome: Partially Met Goal: Knowledge of Enviroment Outcome: Partially Met Problem: Pressure Injury, Risk of Goal: Absence of pressure injury Outcome: Partially Met Problem: Pain Goal: Reduced pain sensation Outcome: Partially Met Goal: Control of acute pain to acceptable level Outcome: Partially Met Goal: Able to cope with pain Outcome: Partially Met Goal: Able to achieve maximum level of physical functioning Outcome: Partially Met Goal: Able to achieve maximum level of psychosocial functioning Outcome: Partially Met Problem: Falls, Risk of Goal: Absence of falls Outcome: Partially Met Goal: Absence of physical injury Outcome: Partially Met * Quick Note - Jenaro Sanchez RN - 02/03/2025 11:57 AM EDT Deterioration Index score is 62. This RN will review chart and see pt on rounds. * Quick Note - Niharika Delarosa CNP - 02/03/2025 10:25 AM EDT Attempted to see patient but currently getting cleaned up by staff, will keep n.p.o. after midnightfor possible SHAHAB tomorrow. Recommend to resume IV heparin as soon as able if no contraindications in setting of permanent A-fib, will defer to primary team * Quick Note - Maggie Stubbs RN - 02/02/2025 5:00 AM EDT 0349 Patient noted to be lethargic and diaphoretic, fingerstick blood sugar was 50. Was given glucose gel per hypoglycemic protocol. 0416 Recheck blood sugar at 62. 0444 Blood glucose 46 per fingerstick, patient lethargic and diaphoretic again. James Herrera CNP notified. Patient covered per hypoglycemic protocol. 0525 Blood glucose 44. James Herrera CNP. Covered per hypoglycemic protocol. 0555 Blood glucose recheck at 30. James Herrera CNP notified. Notified to cover per hypoglycemic protocol and start D5 infusion at 100. 0623 Blood glucose recheck at 242. 0636 James Herrera CNP notified of blood glucose of 242. Order to decrease D5 to 50 ml/hr * Plan of Care - Maggie Stubbs RN - 02/01/2025 10:41 PM EDT Problem: Actual or potential alteration in health Goal: Absence of healthcare acquired conditions Outcome: Partially Met Goal: Knowledge of Interdisciplinary Plan of Care Outcome: Partially Met Goal: Knowledge of Enviroment Outcome: Partially Met Problem: Pressure Injury, Risk of Goal: Absence of pressure injury Outcome: Partially Met Problem: Pain Goal: Reduced pain sensation Outcome: Partially Met Goal: Control of acute pain to acceptable level Outcome: Partially Met Goal: Able to cope with pain Outcome: Partially Met Goal: Able to achieve maximum level of physical functioning Outcome: Partially Met Goal: Able to achieve maximum level of psychosocial functioning Outcome: Partially Met Problem: Falls, Risk of Goal: Absence of falls Outcome: Partially Met Goal: Absence of physical injury Outcome: Partially Met * Quick Note - Cindy Herrera CNP - 02/01/2025 9:07 PM EDT Received a call or request from nursing or other staff regarding BP 88/57 MAP 68, BS 80. Concerns about lopressor and lantus The interventions I performed were - Holding evening dose of lopressor - Giving 10 units instead of the 40 units ordered Additional care provided: 0530: Pt has had multiple BS requiring treatment with glucose and d50 d/t hypoglycemia. - Last BS 44. D50 and D5w @ 100 ml * Quick Note - Ariana Plummer RN - 02/01/2025 6:11 PM EDT @ 1440 Patient returned from left hand debridement and irrigation, vitals complete, pain denied, patient repositioned and re-assessed. No post procedural orders found for management of surgical site. @ 1452 Dr Cooper's nurse, Paola Rangel, contacted for post surgical directions, including re-start instructions for patient's heparin drip. @ 1505 attempted to contact endo to confirm schedule for SHAHAB. Unable to reach. @ 1510 call returned to this RN from RYLEY Rangel confirmed Dr Cooper's approval for re-starting heparin immediately. @ 1515 MD Andrade consulted regarding heparin drip and notified that surgical approval had been given. approved on the condition of SHAHAB being delayed. @ 1518 confirmed with cardiology, Luis A Gayle CNP that SHAHAB is delayed until Tuesday and confirmed heparin could be restarted. @ 1645 This RN was notified by PSA that patient's left hand dressing was actively and copiously bleeding. Pressure was applied, dressing reinforced, and patricia bandage tightened. Arm was elevated and bleeding appeared to be controlled. Soiled linens with puddles of blood were replaced. @ 1700 Patient left limb surgical site actively and profusely bleeding again, rapidly dripping. Pressure was re-applied and Dr Cooper called. Unable to reach his staff. @ 1705 [facility] on-call MD Hernandez was notified of situation and Rapid RN joined us as at bedside to hold pressure and assess. @ 1715 MD Hernandez arrived at bedside to assess. Pressure maintained. @ [address] Cooper was successful. Updated on situation and frequency of copious drainage by primary RN, Emelina. MD stated that he expected this call. I didn't know if it would be two hours or over night, but I knew it would come. Just keep reinforcing the dressing until his arm looks like a club. No matter what. Just keep reinforcing it and putting it on ice. He's on a heparindrip; he's going to bleed. He's not going to . MD Cooper was asked if he would like the heparin drip held until the bleeding was controlled. He stated that it was medical decision. MD Hernandez, who remained at bedside, discontinued the heparin drip. Dressing was reinforced, ice was placed on the surgical site, limb was elevated. Patient was educated on the plan of care. * Brief Op Note - Dillan Cooper MD - 02/01/2025 6:05 PM EDT Brief Post Operative Note Patient Name: Andrew Arnold : 1945 (79 y.o.) Date of Service: 02/01/2025 CSN: [id number] Procedure(s): LEFT HAND IRRIGATION AND DEBRIDEMENT Pre-Operative Diagnoses: * Left hand abscess Post-Operative Diagnoses: * Same as Pre-Op Diagnosis Surgeons and Role: * Dillan Cooper MD - Primary Anesthesiologist: Edgar Rowan MD [employer] LIAISON: Marichuy Barnett CRNA Layup Worker: Daphne Skaggs RN Scrub Person: Ranjan Gayle RN; Farrah Stewart RN Float: Farrah Stewart RN Scrub Person Float: Joann Feliciano ST RNFA: Ranjan Gayle RN Operative findings: see op note Intra and immediate post-operative complications: none Type of anesthesia used: Monitor Anesthesia Care Estimated blood loss: 25 mL Estimated urine output: 0 mL Specimen(s): ID Type Source Tests Collected by Time Destination 1 : swab 1 of 2 Swab Hand, Left SURGICAL SITE AEROBIC AND ANAEROBIC CULTURE Dillan Cooper MD 02/01/2025 1330 2 : swab 2 of 2 Swab Hand, Left SURGICAL SITE AEROBIC AND ANAEROBIC CULTURE Dillan Cooper MD 02/01/2025 1330 Implant(s): * No implants in log * Drain(s): Urethral Catheter Latex 16 Fr. (Active) Reassessment Unchd 01/30/25 1800 Site Assessment Clean;Intact 01/31/25 2100 Collection Container Standard drainage bag 01/31/25 0850 Securement Method Securing device 01/31/25 0850 Reason for Continued Urinary Catheter Acute urinary retention 01/31/25 2100 Output (mL) 450 mL 02/01/25 1100 Wound(s): Wound 01/31/25 1 Surgical Wound Hand Left;Posterior (Active) Dressing Status Clean;Dry;Intact 02/01/25 0849 Drainage Amount Scant 02/01/25 0849 Drainage Description Clear 02/01/25 0849 Mary-wound Assessment Edema;Warm;Dry;Erythema 02/01/25 0849 Treatments Not Applicable 02/01/25 0849 Cleansed Not Applicable 02/01/25 0849 Primary Dressing Gauze pad 02/01/25 0849 Compression Dressing Not Applicable 02/01/25 0849 Wound 02/01/25 1 Surgical Wound Hand Left;Posterior (Active) Reassessment Unchd 02/01/25 1420 Dressing Status Clean;Dry;Intact 02/01/25 1355 Drainage Amount None 02/01/25 1355 Odor None 02/01/25 1355 Wound Closure Sutures 01/28/25 0004 Did the case consist of ANY colon or uterine surgery? NO Dillan Cooper MD 02/01/2025 6:05 PM * Significant Event - Moisés Koehler MD - 02/01/2025 5:13 PM EDT I was called for bleeding from surgical site in the left hand. The nurses were applying pressure and the bleeding was not stopping. The patient was started on heparin drip following the procedure. The nurses were able to reach Dr. Cooper over for Vocera when I was in the room. Dr. Fiore stated that this bleeding is expected because the patient is on heparin drip and that his nurses need to apply pressure and wrap his hand tightly and Patricia wrap and the bleeding is expected to stop on itsown. He stated that he is not concerned about the bleeding and that he does not have a preference regarding continuing or discontinuing the heparin drip. I reviewed the patient's chart. The heparin drip was started for A-fib and also he had elevated troponin on admission. I added troponin level to the morning labs and it is 721 which is much lower than his previous troponin level of 2278, 3 days a go. At this time, I believe that the risk of bleeding overweight the benefit of heparin drip. I held the heparin drip. Defer further decision regarding continuing heparin to the morning team. The nurses wrapped the hand in an Patricia wrap as per Dr. Cooper instructions. They will continue to monitor for bleeding. Also the patient was indicated regarding reporting abnormal sensation or loss of sensation in the fingers. * Op Note - Dillan Cooper MD - 02/01/2025 1:29 PM EDT ATTENDING PHYSICIAN CANDIDA PATRICIO [facility] PRIMARY CARE PHYSICIAN VIVIEN FOREMAN MD ADMITTING PHYSICIAN OREN MIRELES DO CONSULTING PHYSICIAN OREN MIRELES DO PREOPERATIVE DIAGNOSES 1. Left hand abscess. 2. Left hand cellulitis. 3. Extensor tenosynovitis, left hand. POSTOPERATIVE DIAGNOSES 1. Left hand abscess. 2. Left hand cellulitis. 3. Extensor tenosynovitis, left hand. PROCEDURES 1. Incision and drainage, left hand abscess. 2. Irrigation and debridement, 3rd and 4th extensor compartment, left wrist. ESTIMATED BLOOD LOSS 50 cc. TOURNIQUET No tourniquet was used. SPECIMENS Aerobic and anaerobic cultures x2. Surgeon Dr. Dillan Cooper MAK Tenorio is an 79-year-old patient with significant history of left hand infection with an abscess, worsening over the last 48 hours, who presents for surgical intervention. He and his family were explained all the risks and complications of surgery including, but not limited to, the risk of infection, bleeding, neurologic or vascular injury, the possibility of deep venous thrombosis, pulmonary embolism, myocardial infarction, stroke, or even with surgery. Explained the possibilities of continued pain, stiffness, loss of range of motion, as well as the need for future surgery. Given all the options of anesthetic per the anesthesia team and at this point in time elected for a local anesthetic with sedation. PROCEDURE IN DETAIL Patient was met in the preoperative holding where the left hand was confirmed to be the appropriatesite and marked by myself. Patient was taken to the operative suite. He has been receiving regular antibiotics on the medical floor. Left arm was sterilely prepped and draped using ChloraPrep solution. After sterilization of left arm, we did our final time-out to confirm that the left arm was the ap propriate site that had been marked by myself. At this time, we went ahead and proceeded forward with noting that there was a 1 cm x 1 cm abscess over the dorsum of his 4th extensor compartment on the mid metacarpal wrist junction. This extended 1.5 cm distally and proximally, thus opening up abouta 4 cm incision. There was a seropurulent fluid which was cultured at this time. I then went ahead and debrided to the 3rd and 4th extensor tendons and completed a synovectomy and culturing. After the 3rd and 4th compartment extensor synovectomy was completed, copious Surgiphor and IrriSept irrigation was performed. We then proceeded forward with loosely closing the dorsal incision with four 3-0 black nylon suture in a simple interrupted fashion. Patient was placed in a sterile dressing, taken to PACU without intraoperative complication. D 02/01/2025 18:08 [id number] 02/01/2025 18:52 MCB/MODL * Quick Note - Vee Garcia RN - 01/31/2025 3:20 PM EDT Belongings gathered, meds and chart transferred with pt to stepdown unit, room 3028. Report given to receiving RN. Significant other at bedside and made aware of room change. Pt states understanding and denies questions and needs at this time. * Plan of Care - Stepan Valerio RN - 01/31/2025 12:12 AM EDT POC reviewed Problem: Actual or potential alteration in health Goal: Absence of healthcare acquired conditions Outcome: Partially Met Goal: Knowledge of Interdisciplinary Plan of Care Outcome: Partially Met Goal: Knowledge of Enviroment Outcome: Partially Met Problem: Pressure Injury, Risk of Goal: Absence of pressure injury Outcome: Partially Met Problem: Pain Goal: Reduced pain sensation Outcome: Partially Met Goal: Control of acute pain to acceptable level Outcome: Partially Met Goal: Able to cope with pain Outcome: Partially Met Goal: Able to achieve maximum level of physical functioning Outcome: Partially Met Goal: Able to achieve maximum level of psychosocial functioning Outcome: Partially Met Problem: Falls, Risk of Goal: Absence of falls Outcome: Partially Met Goal: Absence of physical injury Outcome: Partially Met * Plan of Care - Denisa Harris RN - 01/30/2025 3:55 PM EDT Problem: Actual or potential alteration in health Goal: Absence of healthcare acquired conditions Outcome: Partially Met Goal: Knowledge of Interdisciplinary Plan of Care Outcome: Partially Met Goal: Knowledge of Enviroment Outcome: Partially Met Problem: Pressure Injury, Risk of Goal: Absence of pressure injury Outcome: Partially Met Problem: Pain Goal: Reduced pain sensation Outcome: Partially Met Goal: Control of acute pain to acceptable level Outcome: Partially Met Goal: Able to cope with pain Outcome: Partially Met Goal: Able to achieve maximum level of physical functioning Outcome: Partially Met Goal: Able to achieve maximum level of psychosocial functioning Outcome: Partially Met * Plan of Care - Stepan Valerio RN - 01/30/2025 1:17 AM EDT Poc reviewed Problem: Actual or potential alteration in health Goal: Absence of healthcare acquired conditions Outcome: Partially Met Goal: Knowledge of Interdisciplinary Plan of Care Outcome: Partially Met Goal: Knowledge of Enviroment Outcome: Partially Met Problem: Pressure Injury, Risk of Goal: Absence of pressure injury Outcome: Partially Met Problem: Pain Goal: Reduced pain sensation Outcome: Partially Met Goal: Control of acute pain to acceptable level Outcome: Partially Met Goal: Able to cope with pain Outcome: Partially Met Goal: Able to achieve maximum level of physical functioning Outcome: Partially Met Goal: Able to achieve maximum level of psychosocial functioning Outcome: Partially Met * Plan of Care - Rosa Solis RN - 01/29/2025 9:22 AM EDT Problem: Actual or potential alteration in health Goal: Absence of healthcare acquired conditions Outcome: Partially Met Goal: Knowledge of Interdisciplinary Plan of Care Outcome: Partially Met Goal: Knowledge of Enviroment Outcome: Partially Met Problem: Pressure Injury, Risk of Goal: Absence of pressure injury Outcome: Partially Met * Quick Note - Mallory Daniel RRT - 01/28/2025 7:44 PM EDT Critical VBG results verbally reported to Dr. Matthew. documented in this [id number] [facility] 02-06-2025 [facility]07-30-2025 [facility]-29-2025 [facility]-29-2025 [facility]07-29-2025 Consult note* Ranjan Jimenez, PT - 02/05/2025 8:48 AM EDT Physical Therapy PHYSICAL THERAPY EVALUATION and TREATMENT NOTE Dx: Left upper extremity cellulitis/abscess, s/p I&D 01/26 Acute encephalopathy Septic Shock Bacteremia DOMENICO on chronic kidney disease PHYSICAL THERAPY EVALUATION Skilled Therapy Needs After Discharge Are form setter steel pan forms Therapy Services Needed After Discharge: Yes Intensity of form setter steel pan forms Therapy: 5 to 7 days per week Anticipated Duration of form setter steel pan forms Therapy: Duration 7 - 10 days Rehab Potential: Good Outcomes Measures Prior Function - Basic Mobility Raw Score: 24 Points Prior Function - Basic Mobility % Impaired: 0% AM-PAC Basic Mobility Raw Score: 11 Points AM-PAC Basic Mobility % Impaired: 66.76% Physical Therapy Assessment History: The following factors influence the patient's participation in the PT plan of care: Personal Factors: Age Environmental Factors: Lives alone The following co-morbidities (from this admission or prior) influence the patient's participation in this plan of care: in note Number of History elements affecting this patient's PT plan of care: 3 or more Examination of Body Systems: The patient presents with: Musculoskeletal impairments: Functional Endurance Neurologic Impairments: Balance Cardiopulmonary Impairments: Activity Tolerance Integumentary Impairments: Pressure Ulcer. These impairments result in limitations of Gait, Functional Transfers, Stair- Climbing, Safety, Activity Tolerance. These impairments result in restrictions of Household mobility, Community mobility. Number of Body Systems elements affecting this patient's PT plan of care: 4 or more. Clinical Presentation: The patient's clinical presentation for this PT evaluation is with unstable and unpredictable characteristics as evidenced by current PT documentation. 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 Helper - Standing Static: (none) Bed Mobility Supine to Sit: Moderate assist Transfers Sit to Stand: Minimal assist, Moderate assist Bed to Chair: Minimal assist, Moderate assist Gait/Locomotion Gait Assistance: Moderate assist Assistive Device: (none) Distance: 20 Feet Pattern: R decreased step length, L decreased step length, decreased amie (steps per minute), shuffle Gait Loss(es) of Balance: multiple, multidirectional Home Living Lives With: Significant other Type of Home: Condo Home Layout: One level Rails to enter home: None Number of stairs to enter home: 1 Prior Level of Function Level of [place] - Transfers/Ambulation/Mobility: Independent with community ambulation (no AD) PHYSICAL THERAPY TREATMENT NOTE Gait Training Skilled Intervention Provided: facilitation, monitoring patient response with activity, provided step by step instructions, patient education For: gait technique, gait sequence, fall prevention Therapeutic Activities Bed Mobility Skilled Intervention Provided: facilitation, monitoring patient response with activity, monitoring patient response with positional changes, monitoring patient vital signs at rest/during/after activity, provided step by step instructions, patient education For: sequencing of movement, safety during functional tasks, LE management Transfers Skilled Intervention Provided: monitoring patient response with activity, monitoring patient response with positional changes, monitoring patient vital signs at rest/during/after activity, provided step by step instructions, patient education For: sequencing of movement, safe use of AD and/or equipment, safety during functional tasks, fall prevention Additional Treatment Details Chair alarm applied post PT Past Medical History: Diagnosis Date Aortic valve calcification Arrhythmia Atrial fibrillation (HCC) after CABG CAD (coronary artery disease) 3 Vessel Claudication Left lower extremity symptoms Fractures Ganglion cyst of dorsum of left wrist Ganglion cyst of dorsum of left wrist H/O CHF Hypertension Mitral valve annular calcification Myocardial infarction (HCC) 08/02/2015 Non-ST Obesity Oral cancer (HCC) Pilonidal cyst Subdural hematoma (HCC) 2008 minor trauma while on Plavix at the time. Tendonitis of wrist, right TIA (transient ischemic attack) 2007 was put on plavix then had subdural one year later. Vitreous hemorrhage of left eye (HCC) Past Surgical History: Procedure Laterality Date AORTIC VALVE REPLACEMENT CARDIAC CATHETERIZATION CARDIAC CATHETERIZATION N/A 12/25/2021 Procedure: Coronary Angiogram; Surgeon: Adilson Stone MD; Location: [facility]; Service: Cardiovascular CARDIAC CATHETERIZATION N/A 12/25/2021 Procedure: Left Heart Cath w/Grafts; Surgeon: Adilson Stone MD; Location: [facility]; Service: Cardiovascular CARDIAC VALVE REPLACEMENT CORONARY ARTERY BYPASS GRAFT 08/13/2015 3 Vessel/YEUNG to the LAD/SVG to obtuse marginal/SVG to a PDA INCISION AND DRAINAGE LOWER EXTREMITY Left 02/01/2025 Procedure: LEFT HAND IRRIGATION AND DEBRIDEMENT; Surgeon: Dillan Cooper MD; Location: [facility]; Service: Orthopedic; Laterality: Left; MOUTH SURGERY 2008 Oral cancer TENDON RELEASE DEQUERVAINS Right 12/26/2018 Procedure: TENDON RELEASE DE QUERVAINS RIGHT; Surgeon: Jenaro Oquendo MD; Location: [facility]; Service: Orthopedic For complete objective data, detailed plan of care and patient education refer to: PT Evaluation flowsheet, PT Evaluation and Treatment flowsheet, PT Treatment flowsheet, patient Plan of Care, Plan of Care progress note, and Patient Education. This note stands as the current Discharge Summary upon patient discharge from the hospital or completion of Physical Therapy Plan. * Elli Hanna RN - 02/04/2025 11:35 AM EDTAssociated Order(s): IP CONSULT TO CARE MANAGEMENT Care Management Consult Note Date: 02/04/2025 Time: 11:35 AM Patient Name: Andrew Arnold Date of : 1945 Reason for Consult: Discharge needs Discharge Plan: To be determined Discharging Transportation Plan: To be determined Discharge Plan Status: CM consulted for discharge planning. Pt in room with manager sap talking, spoke with SO in the hallway- educated her on the role of CM and discussed discharge planning. She is unsure of discharge need but states pt has been weak and he normally helps her so she is unable to care for him if needed. She is requesting PT/OT to work with pt to see what he is able to do, unit nurse notified. CM will continue to follow. Pt has Medicare part A & B insurance with [employer] as a secondary. Pt's PCP is Dr. Foreman. Assessment and Background Information: MARIANN Burgos states that the pt and her live in a 1 story condo with 1 step to get into the home, pt is normally independent with all ADLs, helps care for her, and does not use or need any assistive devices. She denies any issues with financial/food/medication insecurities. Living Arrangements: Spouse/significant other Support Systems: Spouse/significant other, Family members, Friends/neighbors Type of Residence: Private residence Prior to Admission Home Care Services: No Current Home Equipment: None Holistic Assessment Medication adherence problem:: No History of falls in last 6 months:: (!) Yes * Guido Destiney JOHN Andrade - 02/04/2025 10:44 AM EDTAssociated Order(s): IP CONSULT TO GASTROENTEROLOGY Gastroenterology Inpatient Consult 02/04/2025 Destiney Lora CNP [facility] Patient: Andrew Arnold Date of : 1945 (79 y.o.) Referring Provider: Refer to consult order in electronic medical record PCP: Vivien Foreman MD SUBJECTIVE: Chief Complaint/Reason for Consult: Anemia, stool occult blood positive. Patient on Eliquis for A-fib. Please advise on endoscopy. ASSESSMENT/PLAN: 79 y.o. male with history of CAD s/p CABG, Aortic vlave disease s/p AVR, afib on eliquis, HYPERTENSION, and oral cancer presenting with shock. GI consulted for further evaluation of anemia and hemoccult positive stool. Acute on chronic anemia- Baseline hemoglobin 12-13. Hemoglobin 11.7 on admit and today hemoglobin 8.2 Status post I&D left hand abscess on 02/01 with significant postsurgical bleeding No overt signs of GI bleeding, per nursing not aware of any black tarry stools or blood per rectum,02/02 Hemoccult positive stool Pantoprazole 40 mg po BID initiated by medicine Vicki on hold for SHAHAB today, INR 1.2 Has never had an EGD, no history of peptic ulcer disease or GI bleed Last colonoscopy over 10 years ago in [place] no report available; Report found for colonoscopy on 02/08/[address] Gates with diverticulosis and hemorrhoids Eliquis held Continue to trend H&H Continue PPI BID empirically for hemoccult positive stool Watch closely for signs of GI bleeding, but acute drop in hgb may be more related to surgical/post surgical bleeding and shock. Hemoccult positive stool on blood thinners and known hx of hemorrhoids. Will discuss with Dr Barajas and update with further recommendations or plans for endoscopy. History of Present Illness: Andrew Arnold is a 79 y.o. male with history of CAD s/p CABG, Aortic vlave disease s/p AVR, afib on eliquis, HYPERTENSION, and oral cancer presenting with shock. GI consulted for further evaluation of anemia and hemoccult positive stool. Patient was admitted for shock 7 days ago status post I&D of left hand/forearm abscess which had significant bleeding postoperatively. Scheduled for SHAHAB today to evaluate for vegetation given bacteremia. Patient did have some nausea a few days ago but denies any vomiting and per nursing no bloody or black stools. Hemoccult positive stool 2 days ago. Patienttakes Eliquis at home was held, temporarily on heparin drip after I&D but this has also been discontinued after bleeding postsurgically. Patient denies any history of GI bleed, no history of peptic ulcer disease, and has never had an EGD that he can remember. Believes his last colonoscopy was over 10 years ago in [place], no report available. Pending Lab and Radiology Results Order Current Status Blood Culture #1 Preliminary result Blood Culture #2 Preliminary result Surgical Site Aerobic & Anaerobic Culture Preliminary result Surgical Site Aerobic & Anaerobic Culture Preliminary result Interpretation of Testing: I personally reviewed the labs, notes, imaging, procedures Review of Systems: All other systems reviewed and negative other than HPI Past Medical History: Diagnosis Date Aortic valve calcification Arrhythmia Atrial fibrillation (HCC) after CABG CAD (coronary artery disease) 3 Vessel Claudication Left lower extremity symptoms Fractures Ganglion cyst of dorsum of left wrist Ganglion cyst of dorsum of left wrist H/O CHF Hypertension Mitral valve annular calcification Myocardial infarction (HCC) 08/02/2015 Non-ST Obesity Oral cancer (HCC) Pilonidal cyst Subdural hematoma (HCC) 2008 minor trauma while on Plavix at the time. Tendonitis of wrist, right TIA (transient ischemic attack) 2007 was put on plavix then had subdural one year later. Vitreous hemorrhage of left eye (HCC) Past Surgical History: Procedure Laterality Date AORTIC VALVE REPLACEMENT CARDIAC CATHETERIZATION CARDIAC CATHETERIZATION N/A 12/25/2021 Procedure: Coronary Angiogram; Surgeon: Adilson Stone MD; [facility]; Service: Cardiovascular CARDIAC CATHETERIZATION N/A 12/25/2021 Procedure: Left Heart Cath w/Grafts; Surgeon: Adilson Stone MD; Location: [facility]; Service: Cardiovascular CARDIAC VALVE REPLACEMENT CORONARY ARTERY BYPASS GRAFT 08/13/2015 3 Vessel/YEUNG to the LAD/SVG to obtuse marginal/SVG to a PDA INCISION AND DRAINAGE LOWER EXTREMITY Left 02/01/2025 Procedure: LEFT HAND IRRIGATION AND DEBRIDEMENT; Surgeon: Dillan Cooper MD; Location: [facility]; Service: Orthopedic; Laterality: Left; MOUTH SURGERY 2008 Oral cancer TENDON RELEASE DEQUERVAINS Right 12/26/2018 Procedure: TENDON RELEASE DE QUERVAINS RIGHT; Surgeon: Jenaro Oquendo MD; Location: [facility]; Service: Orthopedic Family History Problem Relation Age of Onset COPD Mother Diabetes Father Stroke Paternal Grandmother Tobacco Use History[1] Additional History Comments: None Allergies: Pioglitazone Current HOME Medications: Prior to Admission Medications[2] Current HOSPITAL Medications: Current Hospital Medications[3] OBJECTIVE: Physical Examination: BP 122/64 Pulse 88 Temp 98.2 F (36.8 C) (Oral) Resp (!) 19 Ht 5' 7 Wt 98.6 kg (217 lb 6 oz) SpO2 95% BMI 34.05 kg/m General Appearance: Alert, well appearing, no acute distress HEENT: Head- Normocephalic, atraumatic. Eyes: No scleral icterus, normal conjunctive. Ears: Normal appearance, hearing intact. Nares: Normal pink mucosa, no exudate. Throat: Mucus membranes moist, noerythema. Neck: Supple, trachea midline. Cardiovascular: Regular rate and rhythm Respiratory: Respirations unlabored on O2 via nasal cannula Abdomen: Soft, non distended, active bowel sounds, non- tender to palpation, no organomegaly or masses. Extremities: No clubbing, cyanosis or edema. Musculoskeletal: No joint deformity, swelling or tenderness Neurological: Alert and oriented, no focal deficits, grossly normal motor and sensory Skin: Normal color and turgor, no jaundice or rashes. Psych: Normal mood and affect. Laboratory and Additional Data Reviewed: Reviewed 02/04/25 10:44 AM: Laboratory, Radiology, Cardiology, Medications, and Transcriptions Please note: Portions of this chart may have been created with [employer] voice recognition software. Occasional wrong-word or sound-like substitutions may have occurred due to inherent limitations of the voice recognition software. Please read the chart carefully and recognize, using context, where the substitutions have occurred. [1] Social History Tobacco Use Smoking Status Former Current packs/day: 0.00 Average packs/day: 3.0 packs/day for 12.0 years (36.0 ttl pk-yrs) Types: Cigarettes Start date: 08/27/1961 Quit date: 08/27/1973 Years since quittin.4 Smokeless Tobacco Former Types: Chew [2] No outpatient medications have been marked as taking for the 01/28/25 encounter (Hospital Encounter). [3] aspirin EC tablet 81 mg, 81 mg, Oral, Daily [Held by provider] bumetanide (BUMEX) injection 1 mg, 1 mg, Intravenous, Daily dextrose 5 % infusion, 50 mL/hr, Intravenous, Continuous [Held by provider] escitalopram oxalate (LEXAPRO) tablet 10 mg, 10 mg, Oral, Nightly [Held by provider] heparin (porcine) 25,000 unit/250 mL(100 unit/mL) in D5W infusion, 0-70 Units/kg/hr, Intravenous, Continuous heparin bolus from bag 0-5,000 Units, 0-5,000 Units, Intravenous, Continuous PRN insulin glargine (LANTUS) injection 25 Units, 25 Units, Subcutaneous, BID insulin lispro (AdmeLOG,HumaLOG) injection 0-15 Units, 0-15 Units, Subcutaneous, at bedtime ANDNotify physician, , , Until Discontinued insulin lispro (AdmeLOG,HumaLOG) injection 0-30 Units, 0-30 Units, Subcutaneous, TID AC [Held by provider] lisinopriL (PRINIVIL,ZESTRIL) tablet 5 mg, 5 mg, Oral, Daily melatonin tablet 3 mg, 3 mg, Oral, Nightly PRN metoprolol succinate (TOPROL-XL) 24 hr tablet 12.5 mg, 12.5 mg, Oral, BID naloxone (NARCAN) injection 0.1 mg, 0.1 mg, Intravenous, PRN AND Notify physician, , , Until Discontinued AND naloxone (NARCAN) injection 0.4 mg, 0.4 mg, Intravenous, PRN ondansetron (ZOFRAN) injection 4 mg, 4 mg, Intravenous, Q6H PRN oxyCODONE (ROXICODONE) immediate release tablet 5 mg, 5 mg, Oral, Q4H PRN pantoprazole (PROTONIX) EC tablet 40 mg, 40 mg, Oral, BID penicillin G potassium 3 million unit/50 mL IVPB 3 Million Units, 3 Million Units, Intravenous, Q4H senna-docusate (SENNA-S) 8.6-50 mg per tablet 1 tablet, 1 tablet, Oral, BID [Held by provider] simvastatin (ZOCOR) tablet 40 mg, 40 mg, Oral, at bedtime Saline lock IV, , , Continuous AND sodium chloride (PF) (NS) flush 5 mL, 5 mL, Intravenous, PRNAND sodium chloride (PF) (NS) flush 5 mL, 5 mL, Intravenous, Q8H TEREZA AND sodium chloride 0.9% (NS), 0-150 mL/hr, Intravenous, PRN Cosigned by Fei Barajas MD at 02/04/2025 2:43 PM EDT Associated attestation - Fei Barajas MD - 02/04/2025 2:43 PM EDT I personally interviewed and examined the patient. I reviewed [facility] nurse practitioner consultation report and agree with her documented history physical exam assessment and plan. 79 y.o. male with history of CAD s/p CABG, Aortic vlave disease s/p AVR, afib on eliquis, HYPERTENSION, and oral cancer presenting with shock. GI consulted for further evaluation of anemia and hemoccult positive stool. Baseline hemoglobin 12-13. Hemoglobin 11.7 on admit and today hemoglobin 8.2 Status post I&D left hand abscess on 02/01 with significant postsurgical bleeding No overt signs of GI bleeding, per nursing not aware of any black tarry stools or blood per rectum,02/02 Hemoccult positive stool Pantoprazole 40 mg po BID initiated by medicine Eliquis on hold for SHAHAB today, INR 1.2 Has never had an EGD, no history of peptic ulcer disease or GI bleed Last colonoscopy over 10 years ago in [place] no report available; Report found for colonoscopy on 02/08/[address] Gates with diverticulosis and hemorrhoids Eliquis held Continue to trend H&H Continue PPI BID empirically for hemoccult positive stool Watch closely for signs of GI bleeding, but acute drop in hgb may be more related to surgical/post surgical bleeding and shock. Hemoccult positive stool on blood thinners and known hx of hemorrhoids. * Dillan Cooper MD - 01/30/2025 5:18 PM EDT ATTENDING PHYSICIAN CANDIDA PATRICIO [facility] PRIMARY CARE PHYSICIAN VIVIEN FOREMAN MD ADMITTING PHYSICIAN OREN MIRELES DO CONSULTING PHYSICIAN OREN MIRELES DO Andrew is in the medical intensive care unit. I was asked to see this gentleman regarding his left hand. This gentleman was admitted 2 days ago with toxic shock syndrome and acute encephalopathy. The gentleman apparently had a cyst removed from his left hand. There now appears to be swelling. I was consulted for evaluation. The gentleman went on to have a CT scan of his left upper extremity, whichshowed soft tissue swelling. No large abscess or fluid collection was noted. PAST MEDICAL HISTORY Unchanged from hospitalist admission. SURGICAL HISTORY Unchanged from hospitalist admission. MEDICATIONS Unchanged from hospitalist admission. ALLERGIES Unchanged from hospitalist admission. REVIEW OF SYSTEMS Unchanged from hospitalist admission. IMAGING CT scan was reviewed. Left wrist x-ray was reviewed. PHYSICAL EXAMINATION General: This gentleman is awake. He is in the intensive care unit. Nursing staff is at the bedside. Extremities: His left hand has mild diffuse swelling over the dorsum of the hand. There is a 1.5 cmarea of an incision that has 2 stitches. There is diffuse swelling with no cellulitis, no subcutaneous crepitus or free air. IMPRESSION 1. Chronic left wrist degenerative arthrosis. 2. Status post left wrist cyst excision. PLAN At this point in time, we are going to remove the stitches and have the staff do culturing of this wound. He is already on antibiotics. We will watch this for any further signs of potential infectionfor potential further debridement. D 01/30/2025 17:20 [id number] T 01/30/2025 18:16 MCB/MODL * Gina Reyna MD - 01/30/2025 12:36 PM EDTAssociated Order(s): IP CONSULT TO NEPHROLOGY NEPHROLOGY CONSULTATION [facility] Patient Name: Andrew Arnold MR #: [id number] : 1945 Requesting provider: Dominga Muñiz CNP Reason for consult: Acute kidney injury, anion gap metabolic acidosis, hyperkalemia Impression/Plan: Acute kidney injury secondary to renal hypoperfusion and at risk for ATN. Cannot rule out a component of contrast-induced nephropathy. -On 01/28 in the emergency room he was found to have A-fib with RVR, shock, febrile with laboratory demonstrating DKA, DOMENICO with a creatinine of 1.6 Mg/DL, transaminitis, elevated troponin and he was subsequently admitted to the ICU. Underwent CT PE study 01/28. Now has decreased biventricular function, bacteremia and urine retention. - Baseline creatinine less than 1.2 Mg/DL. Presented with a creatinine of 1.65 Mg/DL and now 2.8 Mg/DL. - Patient remains on vasopressor. - Echo shows LVEF 43%, reduced RV, pulmonary hypertension with RVSP of 61, moderate tricuspid valveregurgitation - Renal ultrasound 01/29 showed urine retention, no hydronephrosis. Remains to have urinary retention. Recommend Brenner catheter placement due to DOMENICO, hyperkalemia and urine retention. - At high risk for worsening renal function in the setting of ATN. Discussed the possible need for renal replacement therapy. Patient and his expressed understanding. 2. Anion gap metabolic acidosis -Due to DKA, DOMENICO,lactic acidosis -Diabetes and sepsis management per primary team and critical care - May need renal replacement therapy if acidosis/renal function worsens. 3. Hyperkalemia - In the setting of DOMENICO, shock metabolic acidosis - Potassium 5.4. - Place Brenner catheter due to urinary retention -Will give Lokelma - May need dialysis if this worsens. 4 Shock - Likely mixed cardiogenic, septic - Evidence of hyervolemia. Agree with Bumex 1 [address] every [address] Brenner to monitor urine output - Management of sepsis per critical care -Manage of systolic heart failure, RV dysfunction per cardiology 5. Sepsis - Left hand cellulitis with abscess. Sp left hand ganglion cyst I&D 01/26. . CT left arm diffusesoft tissue swelling along the dorsal aspect of the forearm/wrist, negative for septic arthritis. Possible future I&D per ortho. - Blood culture showing group B streptococcus. - Left hand wound culture pending. - Urine culture pending - On penicillin G per infectious disease. - SHAHAB pending 6. Non-STEMI, A-fib with RVR, acute systolic heart failure with RV dysfunction and pulmonary hypertension -Per cardiology 7. Acute hypoxic respiratory failure - On supplemental oxygen. - Diuresis as above 8. Transaminitis - Likely due to shock - Abdominal ultrasound pending History of Presenting Illness: Andrew Arnold is a 79 y.o. male on hospital day 2 with a history of coronary disease status post CABG, subdural hematoma, TIA, hypertension, status post aortic valve replacement, atrial fibrillation on anticoagulation, type 2 diabetes who presented to the emergency room on 01/28 pain in swelling in right hand. Patient underwent left ganglion cyst I&D last week per orthopedic surgery's. Patientreports since that time he had increasing pain and swelling in his hand and arm. He had 3 emergencyroom visits for evaluation. On 01/28 in the emergency room he was found to have A-fib with RVR, shock, febrile with laboratory demonstrating DKA, lactic acid of 6, DOMENICO with a creatinine of 1.65Mg/DL, transaminitis, elevated troponin and he was subsequently admitted to the ICU. and her sister atbedside. Patient alert and oriented. History: Past Medical History: Diagnosis Date Aortic valve calcification Arrhythmia Atrial fibrillation (HCC) after CABG CAD (coronary artery disease) 3 Vessel Claudication Left lower extremity symptoms Fractures Ganglion cyst of dorsum of left wrist Ganglion cyst of dorsum of left wrist Hypertension Mitral valve annular calcification Myocardial infarction (HCC) 08/02/2015 Non-ST Obesity Oral cancer (HCC) Pilonidal cyst Subdural hematoma (HCC) 2008 minor trauma while on Plavix at the time. Tendonitis of wrist, right TIA (transient ischemic attack) 2007 was put on plavix then had subdural one year later. Vitreous hemorrhage of left eye (HCC) Past Surgical History: Procedure Laterality Date AORTIC VALVE REPLACEMENT CARDIAC CATHETERIZATION CARDIAC CATHETERIZATION N/A 12/25/2021 Procedure: Coronary Angiogram; Surgeon: Adilson Stone MD; Location: [facility]; Service: Cardiovascular CARDIAC CATHETERIZATION N/A 12/25/2021 Procedure: Left Heart Cath w/Grafts; Surgeon: Adilson Stone MD; Location: [facility]; Service: Cardiovascular CARDIAC VALVE REPLACEMENT CORONARY ARTERY BYPASS GRAFT 08/13/2015 3 Vessel/YEUNG to the LAD/SVG to obtuse marginal/SVG to a PDA MOUTH SURGERY 2007 Oral cancer TENDON RELEASE DEQUERVAINS Right 12/26/2018 Procedure: TENDON RELEASE DE QUERVAINS RIGHT; Surgeon: Jenaro Oquendo MD; Location: Main OR; Service: Orthopedic Family History: Family History Problem Relation Age of Onset COPD Mother Diabetes Father Stroke Paternal Grandmother [] Unable to obtain due to ventilated and/or neurologic status Social History [1] [] Unable to obtain due to ventilated and/or neurologic status Home Medications: Outpatient Medications as of 01/30/2025 Medication Sig acetaminophen (TYLENOL) 325 MG tablet Take 2 (two) tablets (650 mg total) by mouth every 6 (six) hours as needed for pain (1-2 tablets) . apixaban (Eliquis) 5 mg Tab Take 1 (one) tablet (5 mg total) by mouth 2 (two) times a day . ascorbic Acid (VITAMIN C) 500 mg CpER Take 1 (one) capsule (500 mg total) by mouth every other day . aspirin 81 MG EC tablet Take 1 tablet (81 mg total) by mouth daily. blood sugar diagnostic (RELION PRIME TEST STRIPS) strips E11.65 Use as directed 4 times per day. bumetanide (BUMEX) 1 MG tablet Take 0.5 (one-half) tablet (0.5 mg total) by mouth every other day . cilostazoL (PLETAL) 100 MG tablet TAKE 1 TABLET BY MOUTH TWICE DAILY ON AN EMPTY STOMACH (Patient taking differently: 2 (two) times a day .) clindamycin (CLEOCIN) 300 MG capsule Take 1 (one) capsule (300 mg total) by mouth 4 (four) times a day . docusate sodium (COLACE) 100 MG capsule Take 1 (one) capsule (100 mg total) by mouth 2 (two) times a day as needed . escitalopram oxalate (LEXAPRO) 10 MG tablet Take 1 (one) tablet (10 mg total) by mouth nightly . flash glucose sensor (FreeStyle Johnny 2 Sensor) Kit 1 kit by Miscellaneous route every 14 (fourteen) days Use as directed to apply new sensor . insulin glargine (Lantus U-100 Insulin) 100 unit/mL injection Inject 25 (twenty five) Units under the skin nightly . insulin lispro (AdmeLOG,HumaLOG) 100 unit/mL injection Inject 6 (six) Units to 12 (twelve) Units under the skin 3 (three) times a day before meals . insulin syringe-needle U-100 0.3 mL 31 gauge x 5/16 Syrg Use as directed QID . lancets Misc Use to check BG QID SolusV2 brand Dx E11.65. lisinopriL (PRINIVIL,ZESTRIL) 5 MG tablet Take 1 (one) tablet (5 mg total) by mouth daily . metoprolol succinate (TOPROL-XL) 25 MG 24 hr tablet Take 1 (one) tablet (25 mg total) by mouth daily . oxyCODONE-acetaminophen (PERCOCET) 5-325 mg per tablet Take 1 (one) tablet by mouth every 6 (six) hours as needed for pain (Days supply per fill: 5) . pen needle, diabetic 31 gauge x 3/16 Ndle Use as directed 4 times daily. . potassium chloride SA (K-DUR,KLOR-CON M10) 10 MEQ tablet Take 1 (one) tablet (10 mEq total) by mouth every other day . psyllium (METAMUCIL) 0.52 gram capsule Take 2 (two) capsules (1.04 g total) by mouth as needed . semaglutide (Ozempic) 1 mg/dose (4 mg/3 mL) Pen Inject 0.75 mL (1 mg total) under the skin once a week . simvastatin (ZOCOR) 40 MG tablet Take 1 (one) tablet (40 mg total) by mouth at bedtime . Current Hospital Medications: Scheduled Meds: aspirin 81 mg Oral Daily bumetanide 1 mg Intravenous Q12H TEREZA [Held by provider] escitalopram oxalate 10 mg Oral Nightly insulin glargine 40 Units Subcutaneous BID lispro insulin 0-15 Units Subcutaneous at bedtime insulin lispro 0-30 Units Subcutaneous TID AC [Held by provider] lisinopriL 5 mg Oral Daily [Held by provider] metoprolol succinate 25 mg Oral Daily pantoprazole 40 mg Oral Daily pencillin G potassium IVPB 3 Million Units Intravenous Q4H senna-docusate 1 tablet Oral BID simvastatin 40 mg Oral at bedtime sodium chloride (PF) 5 mL Intravenous Q8H TEREZA Continuous Infusions: heparin infusion (weight based dosing) 16 Units/kg/hr (01/30/25448) heparin norEPINEPHrine (LEVOPHED) infusion 5 mcg/min (01/28/252204) And VASOpressin (SHOCK/SEPSIS) infusion PRN Meds:.acetaminophen OR acetaminophen, heparin, ondansetron, perflutren lipid microspheres, Saline lock IV AND sodium chloride (PF) AND sodium chloride (PF) AND sodium chloride 0.9%, norEPINEPHrine (LEVOPHED) infusion AND VASOpressin (SHOCK/SEPSIS) infusion heparin infusion (weight based dosing) 16 Units/kg/hr (01/30/25448) heparin norEPINEPHrine (LEVOPHED) infusion 5 mcg/min (01/28/252204) And VASOpressin (SHOCK/SEPSIS) infusion Allergies: I have reviewed the patient's allergies. Pioglitazone Review of Systems: [x] CV, Resp, GI, Neuro, and all other systems reviewed and negative other than listed in HPI. [] Unable to obtain due to intubation and/or neurologic status. Objective Findings: Vitals:BP (!) 100/55 Pulse 84 Temp 97.6 F (36.4 C) (Oral) Resp 18 Ht 5' 7 Wt 107.9 kg (237 lb 14 oz) SpO2 93% BMI 37.26 kg/m Intake/Output last 3 shifts: Intake/Output Summary (Last 24 hours) at 01/30/2025 1236 Last data filed at 01/30/2025 0500 Gross per 24 hour Intake 361.46 ml Output 1175 ml Net -813.54 ml I/O last 3 completed shifts: In: 6720.5 [I.V.:3720.6; IV Piggyback:2999.9] Out: 1175 [Urine:1175] Physical Examination: General: Age appropriate, NAD. HEENT: Normocephalic, no scleral icterus. Neck: No JVD. Heart: Regular, soft murmur present lungs: Distant breath sounds. On supplemental oxygen Abdomen: Soft, nontender, no supra-public fullness or tenderness. Extremities: Left hand wound dressing clean dry intact Skin: Warm, dry, no rash, no bruise, no petichiae. Neuro: No myoclonus or tremor. Psych: Normal affect. : [] Brenner present [x] Brenner not present Results/Medications Reviewed: 01/30/25 12:36 PM: Laboratory, Microbiology, Pathology, Radiology, Cardiology, Medications and Transcriptions Laboratory: Results from last 7 days Lab Units 01/30/25 0821 01/30/25 0220 01/29/25 1055 01/28/25 2347 01/28/25 2339 01/28/25 1944 01/28/25 1931 WBC K/mcL -- 20.48* -- -- 22.21* -- 18.14* HGB g/dL -- 10.2* -- -- 10.8* -- 11.7* HEMOGLOBIN BG g/dL 10.4* -- 10.9* < > -- < > -- HEMATOCRIT, CALCULATED % 32.0* -- 33.5* < > -- < > -- HCT % -- 31.6* -- -- 34.2* -- 36.6* PLT K/mcL -- 154 -- -- 162 -- 170 < > = values in this interval not displayed. Results from last 7 days Lab Units 01/30/25 0220 01/29/25 2208 01/29/25 1640 01/29/25 1055 01/29/25 0752 01/29/25 0458 01/28/25 2347 01/28/25 2338 SODIUM mmol/L 133* 131* 132* < > 133* 133* < > 129* POTASSIUM mmol/L 5.4* 5.5* 5.3* < > 4.7 4.4 < > 4.6 CHLORIDE mmol/L 100 100 101 < > 103 100 < > 96* BICARB mmol/L 16* 15* 15* -- 17* 18* -- 13* BUN mg/dL 64* 59* 55* -- 45* 43* -- 38* CREATININE mg/dL 2.83* 2.68* 2.52* -- 2.26* 2.11* -- 1.86* EGFR mL/min/1.73 m2 22* 23* 25* -- 29* 31* -- 36* GLUCOSE mg/dL 150* 133* 134* < > 178* 282* < > 464* CALCIUM mg/dL 8.2* 8.2* 8.2* -- 8.3* 8.4 -- 8.2* MAGNESIUM mg/dL 2.0 -- -- -- 2.0 2.1 -- 1.9 PHOSPHORUS mg/dL -- -- -- -- -- 3.9* -- 3.9* < > = values in this interval not displayed. Urinalysis Results from last 7 days Lab Units 01/28/259 COLOR, UR Yellow CLARITY, UR Clear SPEC GRAV 1.024 PH, UR 5.5 GLUCOSE, UR mg/dL >=500* KETONES, UR mg/dL 20* BILIRUBIN, UR Negative UROBILINOGEN, UR mg/dL <2.0 BLOOD, UR Small* NITRITE, UR Negative LEUK BARNEY, UR Trace* MUCUS, UR /lpf Rare WBC, UR /hpf 26* BACTERIA, UR /hpf Rare* HYALINE CASTS /lpf 3-5* Risk/Complexity: [x] I have reviewed Progress Notes in the [facility] EHR and CareEverywhere. [x] I have interpreted/reviewed lab tests and radiography data in the [facility] EHR. [x] I have discussed the case with the primary service. [x] I have ordered appropriate tests/labs Comments: Thank you for allowing us to participate in the care of this patient. We will continue to follow. Please call if questions or concerns arise. Potential limitations of the note: Parts of this note were created by dictation via voice recognition software ([employer]). The completed note was reviewed for accuracy. However, there may be subtle errors that were not found during the review. If such errors are discovered, or if there are any questions or concerns regarding the recommendations/plan of care, please contact the author of the note prior to undertaking the recommendations/plan of care. [1] Social History Socioeconomic History Marital status: Tobacco Use Smoking status: Former Current packs/day: 0.00 Average packs/day: 3.0 packs/day for 12.0 years (36.0 ttl pk-yrs) Types: Cigarettes Start date: 08/27/1961 Quit date: 08/27/1973 Years since quittin.4 Smokeless tobacco: Former Types: Chew Vaping Use Vaping status: Never Used Substance and Sexual Activity Alcohol use: Not Currently Alcohol/week: 0.0 standard drinks of alcohol Drug use: No Sexual activity: Not Currently Partners: Female Social History Narrative Living with partner, 2 kids and one grand-duaghter Retired [place] [employer] in 2005 Social Drivers of Health Financial Resource Strain: Low Risk (10/30/2024) Overall Financial Resource Strain (CARDIA) Difficulty of Paying Living Expenses: Not hard at all Food Insecurity: No Food Insecurity (10/30/2024) Hunger Vital Sign Worried About Running Out of Food in the Last Year: Never true Ran Out of Food in the Last Year: Never true Transportation Needs: No Transportation Needs (10/30/2024) PRAPARE - Transportation Lack of Transportation (Medical): No Lack of Transportation (Non-Medical): No Social Connections: Unknown (10/30/2024) Social Connection and Isolation Panel [NHANES] Frequency of Communication with Friends and Family: Once a week Housing Stability: Unknown (10/30/2024) Housing Stability Vital Sign Unable to Pay for Housing in the Last Year: No Homeless in the Last Year: No * Ruby Landon OTR/Sreedhar - 01/30/2025 9:55 AM EDT Occupational Therapy OCCUPATIONAL THERAPY EVALUATION Skilled Therapy Needs After Discharge Anticipate Resolution of Current Assessment Limitations Including: Pain Are OT Skilled Therapy Services Needed After Discharge: Yes Intensity of OT Skilled Therapy: 5 to 7 days per week Anticipated Duration of OT Skilled Therapy: Duration 7 - 10 days OT DME Recommendation: Adaptive equipment kit, Tub seat OT DME Rationale: Patient's condition prevents him/her from accomplishing ADL without recommended equipment, Patient's condition creates an increased risk of safety hazard without recommended equipment, Unreasonable time frame to complete ADL without recommended equipment Rehab Potential: Good OT Caregiver Readiness OT Rationale: Working toward discharge home OT Training Progress: Initiated & ongoing - follow-up required OT Identified Caregiver: Significant other (Patient) Caregiver Present for OT Session: Yes OT Training Provided For: Bed mobility - follow-up required, Transfers - follow- up required Caregiver response to OT training: (Needs reinforcement.) Outcomes Measures Prior Function Daily Activity Raw Score: 24 Prior Function Daily Activity % Impaired: 0% AM-PAC Daily Activity Raw Score: 13 AM-PAC Daily Activity % Impaired: 63.03% Occupational Therapy Assessment The patient's current functional participation deficits are feeding, grooming, UE dressing, LE dressing, bathing, toileting, functional mobility, driving. This reduced independence will limit their life roles of premorbid level individual. The patient's co morbidities do affect patient performance in the above activities and roles. The performance deficits are a result of musculoskeletal, cardiopulmonary impairment(s) in generalized debility, left, upper extremity including strength, range of motion, balance, coordination, acitvity tolerance, respiratory capacity, pain, safety, and pain intolerance. 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 During the assessment, significant modification of task was required and multiple treatment optionswere identified in the plan of care. This consultation required extensive review of the medical and therapy history. Medical Diagnosis: Concern for Toxic Shock Syndrome; Acute Encephalopathy; Septic Shock; Type 2 DM with DKA; Acute Respiratory Failure; DOMENICO on CKD; NSTEMI; Heart Failure; Recent L Hand Abscess Drainage after Ganglion Cyst Removal - Cellulitis. UE Function: R UE AROM shoulder flexion to about 50 degrees and horizontal shoulder abduction to 45degrees w/pt reporting premorbid limitations; L UE AROM shoulder flexion and horizontal shoulder abduction each to about 35 degrees w/pain secondary to current UE condition - AROM elbow flexion to 130 degrees - moderate edema noted in forearm and hand with blueing to fingertips of bilateral hands (nursing made aware) - pt unable to oppose thumb to digits using L hand. Activity Tolerance Activity Tolerance: (Using O2 during session. 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.) Progressive Mobility Level 3 Cognition Arousal/Alertness: Appropriate responses to stimuli Orientation Level: Oriented to place, Oriented to time, Oriented to person (Knew birthdate.) Attention: Attends to distracted environment Hearing Status: Hard of hearing, Left ear, Right ear, Hearing aide Social Interaction: [facility] ADL Grooming: Maximal assist (Hair combing and face washing while seated.) Lower Body Dressing: (Not attempted; will address during OT treatment.) Functional Mobility: Minimal assist (1-2 person assist w/out AD; min A x2 to transfer from EOB to BSC toward R side; min A to transfer from BSC back to EOB toward L side.) Bed Mobility Supine to Sit: Moderate assist, Head of bed elevated Sit to Supine: Minimal assist, Head of bed flat Dry Plasterer Helper: bedrails, bed positioning mechanics, patient slide sheet / friction-reducing device Functional Transfers Sit to Stand: Minimal assist (Min A for stand to sit transition at BSC.) Stand Pivot Transfers: Minimal assist (1-2 person assist) Dry Plasterer Helper: (None) (SBA with UE support for EOB sitting; CGA to min A for static standing w/out AD or UE support.) Home Living Obtained Home Living and PLOF info from: Patient (S.O.) Lives With: Significant other (She has limited ability to assist pt at home.) Type of Home: Condo Home Layout: One level Steps to enter home: Yes Rails to enter home: None Number of stairs to enter home: 1 Bathroom Shower/Tub: Walk-in shower Bathroom Toilet: Raised Bathroom Equipment: Grab bars in shower, Grab bars around toilet, Shower chair Bathroom Accessibility: Accessible via walker Mobility Equipment: Cane ADL Equipment: Political Reporter Prior Level of Function Level of [place] - Transfers/Ambulation/Mobility: Independent with functional transfers, Independent with household ambulation, Independent with community ambulation (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 did cooking and laundry tasks.) Driving: Patient drives Vocational: Retired Past Medical History: Diagnosis Date Aortic valve calcification Arrhythmia Atrial fibrillation (HCC) after CABG CAD (coronary artery disease) 3 Vessel Claudication Left lower extremity symptoms Fractures Ganglion cyst of dorsum of left wrist Ganglion cyst of dorsum of left wrist Hypertension Mitral valve annular calcification Myocardial infarction (HCC) 08/02/2015 Non-ST Obesity Oral cancer (HCC) Pilonidal cyst Subdural hematoma (HCC) 2008 minor trauma while on Plavix at the time. Tendonitis of wrist, right TIA (transient ischemic attack) 2007 was put on plavix then had subdural one year later. Vitreous hemorrhage of left eye (HCC) Past Surgical History: Procedure Laterality Date AORTIC VALVE REPLACEMENT CARDIAC CATHETERIZATION CARDIAC CATHETERIZATION N/A 12/25/2021 Procedure: Coronary Angiogram; Surgeon: Adilson Stone MD; Location: [facility]; Service: Cardiovascular CARDIAC CATHETERIZATION N/A 12/25/2021 Procedure: Left Heart Cath w/Grafts; Surgeon: Adilson Stone MD; Location: [facility]; Service: Cardiovascular CARDIAC VALVE REPLACEMENT CORONARY ARTERY BYPASS GRAFT 08/13/2015 3 Vessel/YEUNG to the LAD/SVG to obtuse marginal/SVG to a PDA MOUTH SURGERY 2007 Oral cancer TENDON RELEASE DEQUERVAINS Right 12/26/2018 Procedure: TENDON RELEASE DE QUERVAINS RIGHT; Surgeon: Jenaro Oquendo MD; Location: [facility]; Service: Orthopedic For complete objective data, detailed plan of care and patient education refer to: OT Evaluation flowsheet, OT Evaluation and Treatment flowsheet, OT Treatment flowsheet, patient Plan of Care, Plan of Care progress note, and Patient Education. This note stands as the current Discharge Summary upon patient discharge from the hospital or completion of Occupational Therapy Plan of Care. * Neetu Pinto MD - 01/29/2025 12:12 PM EDTAssociated Order(s): IP CONSULT TO CARDIOLOGY General Cardiology Consult [facility] 01/29/2025 Neetu Pinto MD [address] [facility] [id number] Date of Service: 01/29/2025 Patient: Andrew Arnold Date of : 1945 Referring Provider: No ref. provider found PCP: Vivien Foreman MD Condition(s) on Admission: Admitted with these risk variables:Cardiac Arrhythmia, Valve Disease, and Acute Kidney Injury. Please see assessment and plan for further details. Subjective Reason for Consultation: Elevated troponin History of Present Illness: The patient is a 79-year-old man whose prior cardiovascular profile include 1. Coronary artery disease status post CABG with aortic valve replacement in August 2015. Most recent echocardiogram was in March 2023 showing EF of 58%. Mildly reduced RV function. Aortic valve bioprosthetic is working fine with a mean gradient 15 mmHg. Most recent heart catheterization was in December 2021 which showed all grafts were patent. He had a severe stenosis in the first diagonal branch with 80% stenosis. 2. History of aortic valve disease status post surgical aortic valve replacement as above 3. Permanent atrial fibrillation. On Eliquis. 4. Insulin dependent diabetes 5. Heart failure with preserved ejection fraction. Patient on 0.5 mg of Bumex daily. Patient deniedprior hospital admission for volume overload 6. Former smoker The patient presented to the hospita because of fatigue, tachycardia which happened after 24 hours from drainage of the large left hand soft tissue infection. The patient found to be in sepsis and septic shock with DOMENICO lactic acidosis and tachycardia with A-fib. The patient has been treated for septic shock. Blood culture is growing gram-positive cocci in 2 of the 2 blood cultures. He has been treated for shock. Requiring pressors. He had severe leukocytosis up to 22,000 with 93% of neutrophil.. He has severe lactic acidosis up to 6.0 but has been improving down to 2.5 today. His troponin has been gradually elevated from 247, 708, 1050, 1670, 2210. His proBNP was also elevated to 56,000, we are asked to evaluate given his elevated troponin. When I spoke to the patient, he tells me that he presented to the hospital because of severe left arm pain. He specifically denies any chest pain or shortness of breath. He was able to tell me his history about his cardiac surgeries. With good accuracy and [facility] medical chart. He reports that he is living with his girlfriend. He described himself as ambulatory able to walk without significant assistance. Denies significant exertional or resting chest pain. Imaging: Imaging: I independently reviewed the EKG and agree with the interpretation(s) with the following comments. EKG on admission January 28 shows wide-complex tachycardia with right bundle branch morphology with irregular rhythm likely A-fib with RVR with a aberrant conduction EKG from January 29, 2025 showed A-fib with right bundle branch block with a heart rate 89 beeper minute. EKG from July 2023 confirmed atrial fibrillation with right bundle branch block. Echocardiogram March 2023 showed EF 58%. The ventriculography. Mild RV dysfunction. Mild tricuspid rotation. Aortic valve bioprosthesis with mean gradient 15 mmHg. Coronary angiogram in December 2021 was reviewed showing 3 patent graft YEUNG to LAD, SVG to the OM, andSVG to the PDA all 3 grafts are patent. Shows that first diagonal branch has severe 80% ostial stenosis that is not revascularized. EKG 12-lead Final Result by Interface, Lab Results In [facility] (07/12/20232049) Echocardiogram complete w contrast Final Result by Jennifer Cintron MD (03/22/2023 1601) Echocardiogram complete Final Result by Eda Segundo MD (12/23/2021 0949) Stress test only, exercise Final Result by Nik Hoskins DO (02/13/2016 0900) Cardiac Catheterization Final Result by Adilson Stone MD (12/25/2021 1253) Past Medical History: Diagnosis Date Aortic valve calcification Arrhythmia Atrial fibrillation (HCC) after CABG CAD (coronary artery disease) 3 Vessel Claudication Left lower extremity symptoms Fractures Ganglion cyst of dorsum of left wrist Ganglion cyst of dorsum of left wrist Hypertension Mitral valve annular calcification Myocardial infarction (HCC) 08/02/2015 Non-ST Obesity Oral cancer (HCC) Pilonidal cyst Subdural hematoma (HCC) 2008 minor trauma while on Plavix at the time. Tendonitis of wrist, right TIA (transient ischemic attack) 2007 was put on plavix then had subdural one year later. Vitreous hemorrhage of left eye (HCC) Past Surgical History: Procedure Laterality Date AORTIC VALVE REPLACEMENT CARDIAC CATHETERIZATION CARDIAC CATHETERIZATION N/A 12/25/2021 Procedure: Coronary Angiogram; Surgeon: Adilson Stone MD; Location: [facility]; Service: Cardiovascular CARDIAC CATHETERIZATION N/A 12/25/2021 Procedure: Left Heart Cath w/Grafts; Surgeon: Adilson Stone MD; Location: [facility]; Service: Cardiovascular CARDIAC VALVE REPLACEMENT CORONARY ARTERY BYPASS GRAFT 08/13/2015 3 Vessel/YEUNG to the LAD/SVG to obtuse marginal/SVG to a PDA MOUTH SURGERY 2007 Oral cancer TENDON RELEASE DEQUERVAINS Right 12/26/2018 Procedure: TENDON RELEASE DE QUERVAINS RIGHT; Surgeon: Jenaro Oquendo MD; Location: [facility]; Service: Orthopedic Family History Problem Relation Age of Onset COPD Mother Diabetes Father Stroke Paternal Grandmother Tobacco Use History[1] Allergies: Pioglitazone Vital Signs: BP (!) 87/59 Pulse 90 Temp 97.5 F (36.4 C) Resp (!) 19 Ht 5' 7 Wt 107.9 kg (237 lb 14 oz) SpO2 (!) 89% BMI 37.26 kg/m Physical Exam Alert oriented x 3, lying flat in bed in the ICU in no respiratory distress no jaundice no cyanosis. Able to communicate and answer question appropriately. Regular rhythm, normal rate, A-fib on the telemetry and monitor. Soft systolic murmur at the base. External jugular vein is distended however patient is at 0 degree flat in the bed Extremities are warm without pitting edema Chest bilateral air entry no significant crackles or wheezing. Lab Results Component Value Date CHOL 110 12/02/2023 LDLCALC 47 12/02/2023 TRIG 38 12/02/2023 HDL 55 12/02/2023 Assessment/Plan: Andrew Arnold is a 79 y.o. male with a significant history of coronary disease status post CABG and aortic valve replacement in August 2015, history of HFpEF, who presented with picture consistent with septic shock with multiorgan damage including DOMENICO, lactic acidosis, elevated troponin. Despite patient significantly elevated troponin he does not have symptoms suggestive of acute coronary syndrome. His elevated troponin could be in most likely related to demand ischemia especially in the setting of known severe diagonal artery stenosis that is not revascularized with his bypass surgeries. We agree with obtaining echocardiogram to assess his LV function. Which could be reduced due to sepsis. If there is very obvious regional wall motion abnormality then coronary angiography might be indicated once he is improved from septic prior perspective. Elevated troponin: Likely demand ischemia. Cannot rule out a primary plaque rupture definitely Septic shock DOMENICO History of CABG and aortic valve replacement with bioprosthetic aortic valve in 2016 Insulin-dependent diabetes GPC bacteremia Permanent A-fib Recommendation Currently I recommend continue aggressive critical care for his septic shock. Follow up echo results with EF and wall motion assessment. Continue heparin drip given his history of atrial fibrillation Continue troponin trending until it peaks No indication for urgent coronary angiography at this time. He might SHAHAB to assess for vegetation at some point during his hospital stay when his is improved hemodynamically. Neetu Pinto MD, MPH Non-Clinical Secretary, [facility] [1] Social History Tobacco Use Smoking Status Former Current packs/day: 0.00 Average packs/day: 3.0 packs/day for 12.0 years (36.0 ttl pk-yrs) Types: Cigarettes Start date: 08/27/1961 Quit date: 08/27/1973 Years since quittin.4 Smokeless Tobacco Former Types: Chew * Kunal Norman MD - 01/29/2025 11:59 AM EDT Patient Name: Andrew Arnold MR #: [id number] : 1945 Physicians: Vivien Foreman MD (Family); No ref. provider found (Referring) Chief complaint: Andrew Arnold is a 79 y.o. male presented with confusion, and left wrist swelling History: I have reviewed the patient's past medical history, past surgical history, family history, social history. Today patient evaluated, with history of coronary artery disease, atrial fibrillation, and aortic valve calcification, he also had had subdural hematoma and aortic valve replacement in the past, and cardiac valve replacement. He presents in this visit with worsening history of fever and alsowith some confusion. Girlfriend who was at the bedside states that patient had been going with the orthopedic surgeon for a ganglion cyst on the left wrist and has I&D in the past. He was said tohave generalized weakness, and admission was found with tachycardia, with heart rates in the 160s. He also had developed some fever Tmax of 101. And also complaining of left arm swelling and pain in the area of incision with some drainage. There was reports of sweats, but no cough or shortness of breath no history of urinary symptoms with dysuria or hematuria,He is currently on 6 L of nasal cannula saturating at 88%. Patient had an x-ray of the left upper extremity and wrist,Found with CVS deformity and severe degenerative changes, and also had a CT of the pulmonary artery with groundglass airspace opacity of the upper lobe with suspicion for atypical inflammatory or infectious process.Trauma alert patient also had a blood culture that currently showing Streptococcus agalactiae, and 2 sets of blood cultures. Patient was also found with he has been found with systolic in the 60s, was masters sferred to ICU. He is a poor historian at the time of evaluation. He has been evaluated for septic shock, suspicion for pneumonia, respiratory failure, leukocytosis, left upper extremity cellulitis and also for antibiotics management. Past Medical History: Diagnosis Date Aortic valve calcification Arrhythmia Atrial fibrillation (HCC) after CABG CAD (coronary artery disease) 3 Vessel Claudication Left lower extremity symptoms Fractures Ganglion cyst of dorsum of left wrist Ganglion cyst of dorsum of left wrist Hypertension Mitral valve annular calcification Myocardial infarction (HCC) 08/02/2015 Non-ST Obesity Oral cancer (HCC) Pilonidal cyst Subdural hematoma (HCC) 2008 minor trauma while on Plavix at the time. Tendonitis of wrist, right TIA (transient ischemic attack) 2007 was put on plavix then had subdural one year later. Vitreous hemorrhage of left eye (HCC) Past Surgical History: Procedure Laterality Date AORTIC VALVE REPLACEMENT CARDIAC CATHETERIZATION CARDIAC CATHETERIZATION N/A 12/25/2021 Procedure: Coronary Angiogram; Surgeon: Adilson Stone MD; Location: [facility]; Service: Cardiovascular CARDIAC CATHETERIZATION N/A 12/25/2021 Procedure: Left Heart Cath w/Grafts; Surgeon: Adilson Stone MD; Location[facility]; Service: Cardiovascular CARDIAC VALVE REPLACEMENT CORONARY ARTERY BYPASS GRAFT 08/13/2015 3 Vessel/YEUGN to the LAD/SVG to obtuse marginal/SVG to a PDA MOUTH SURGERY 2007 Oral cancer TENDON RELEASE DEQUERVAINS Right 12/26/2018 Procedure: TENDON RELEASE DE QUERVAINS RIGHT; Surgeon: Jenaro Oquendo MD; Location: [facility]; Service: Orthopedic Family History Problem Relation Age of Onset COPD Mother Diabetes Father Stroke Paternal Grandmother Social History [1] Travel History: None Animal Contact: Could not obtain at this time, patient drowsy Medications: I have reviewed the patient's medications. Scheduled Meds: aspirin 81 mg Oral Daily escitalopram oxalate 10 mg Oral Nightly insulin glargine 40 Units Subcutaneous BID lispro insulin 0-15 Units Subcutaneous at bedtime insulin lispro 0-30 Units Subcutaneous TID AC [Held by provider] lisinopriL 5 mg Oral Daily [Held by provider] metoprolol succinate 25 mg Oral Daily pencillin G potassium IVPB 3 Million Units Intravenous Q4H senna-docusate 1 tablet Oral BID simvastatin 40 mg Oral at bedtime sodium chloride (PF) 5 mL Intravenous Q8H TEREZA sodium chloride (PF) 5 mL Intravenous Q8H TEREZA Allergy Information: I have reviewed the patient's allergies. Pioglitazone Review of Systems: Could not obtain at this time, patient with poor communication. Review of Systems Labs: Lab Results Component Value Date WBC 22.21 (H) 01/28/2025 HGB 10.9 (L) 01/29/2025 HCT 33.5 (L) 01/29/2025 MCV 86.1 01/28/2025 PLT 162 01/28/2025 Lab Results Component Value Date HGBA1C 8.7 (H) 01/28/2025 Lab Results Component Value Date SEDRATE 69 (H) 01/28/2025 Lab Results Component Value Date CRP 311.0 (H) 01/28/2025 Radiology: CT Pulmonary Arteries Final Result No evidence for acute pulmonary embolism. Ground-glass airspace opacities of the upper lobes suspicious for atypical inflammatory or infectious process. Reflux of contrast into the hepatic veins suggesting CHF. Workstation ID: [id number] XR Chest 1 View Final Result 1. Borderline cardiomegaly and stable elevation of the right hemidiaphragm. 2. Chronic changes noted bilaterally. Workstation ID: [id number] Echocardiogram Complete (Results Pending) US Renal and Bladder (Results Pending) Physical Examination: Vital Signs: BP (!) 87/59 Pulse 90 Temp 97.5 F (36.4 C) Resp (!) 19 Ht 5' 7 Wt 107.9 kg (237 lb 14 oz) SpO2 (!) 89% BMI 37.26 kg/m Physical Exam Constitutional: Appearance: He is well-developed. He is ill-appearing. HENT: Head: Normocephalic. Eyes: General: Right eye: No discharge. Left eye: No discharge. Cardiovascular: Rate and Rhythm: Normal rate and regular rhythm. Pulmonary: Effort: Respiratory distress present. Breath sounds: Rales present. No wheezing. Comments: On nasal cannula oxygen. Chest: Chest wall: No tenderness. Abdominal: General: There is no distension. Tenderness: There is no abdominal tenderness. There is no rebound. Musculoskeletal: General: Swelling and tenderness present. Cervical back: Normal range of motion and neck supple. Right lower leg: Edema present. Left lower leg: Edema present. Comments: Left upper extremity with tenderness and area in the wrist with incisional scar with darkish bloody discharge. Swollen, and mildly warm to palpation. Skin: General: Skin is warm. Coloration: Skin is not pale. Findings: No rash. Neurological: Mental Status: He is oriented to person, place, and time. Comments: Awake and oriented, looks confused. Psychiatric: Behavior: Behavior normal. Assessment and Plan: Patient with 1. Septic shock, 2. Suspicion for pneumonia, 3. Respiratory failure, 4. Leukocytosis, 5. Left upper extremity cellulitis/fasciitis 6. Bacteremia with Streptococcus agalactia Plan. Continue patient on current therapy Patient currently IV clindamycin Patient on IV penicillin G Patient status post DC IV Zosyn. Patient on IV vancomycin DC IV vancomycin if negative MRSA. Get urgent orthopedic evaluation for possible I&D. Follow-up labs Reviewed blood culture with Streptococcus agalactiae in 2 sets of blood culture. Reviewed CT of the pulmonary artery, with groundglass opacity of the upper lobe suspicious for atypical inflammatory infectious process, I reviewed chest x-ray with with borderline cardiomegaly Follow-up echocardiogram Follow renal ultrasound Reviewed x-ray of the left wrist, with degenerative disease and deformity noted. Get CT of the right upper extremity Continue hydration and Patient on pressors Will continue to follow with you. Reviewed the CRP of 311. Aspiration precaution recommended. Discussed with the Dr Andrade on management plan. Problem List Items Addressed This Visit None Visit Diagnoses Septic shock (HCC) - Primary Relevant Medications piperacillin-tazobactam (ZOSYN) IVPB 4.5 g (premix) (Completed) penicillin G potassium 3 million unit/50 mL IVPB 3 Million Units (Start on 01/29/2025 12:00 PM) Shortness of breath Elevated troponin DKA (diabetic ketoacidosis) (HCC) Relevant Medications insulin regular (Humulin R, Novolin R) injection 20 Units (Completed) insulin regular in 0.9 % NaCl (MYXREDLIN) 100 Units/100 mL infusion insulin glargine (LANTUS) injection 40 Units (Start on 01/29/2025 12:00 PM) insulin lispro (AdmeLOG,HumaLOG) injection 0-15 Units (Start on 01/29/2025 9:00 PM) insulin lispro (AdmeLOG,HumaLOG) injection 0-30 Units Anemia of chronic disease I have taken time to review patient's information and having discussions, including discussion on antibiotics management, its side effects, benefits and risk., I appreciate seeing your patient, will continue to follow with you, and adjust with more information. Medical decision making.High. Drug Rx requiring intensive monitoring for toxicity and side effects; Extensive discussion regarding a diagnosis and multiple treatment options. This note is created with the assistance of a speech-recognition program. While intending to generate a document that actually reflects the content of the visit, the document can still have some errors including those of syntax and sound a- like substitutions which may escape proofreading. In such instances, actual meaning can be extrapolated by contextual derivation. [1] Social History Socioeconomic History Marital status: Tobacco Use Smoking status: Former Current packs/day: 0.00 Average packs/day: 3.0 packs/day for 12.0 years (36.0 ttl pk-yrs) Types: Cigarettes Start date: 08/27/1961 Quit date: 08/27/1973 Years since quittin.4 Smokeless tobacco: Former Types: Chew Vaping Use Vaping status: Never Used Substance and Sexual Activity Alcohol use: Not Currently Alcohol/week: 0.0 standard drinks of alcohol Drug use: No Sexual activity: Not Currently Partners: Female Social History Narrative Living with partner, 2 kids and one grand-duaghter Retired [place] department of [employer] in 2006 Social Drivers of Health Financial Resource Strain: Low Risk (10/30/2024) Overall Financial Resource Strain (CARDIA) Difficulty of Paying Living Expenses: Not hard at all Food Insecurity: No Food Insecurity (10/30/2024) Hunger Vital Sign Worried About Running Out of Food in the Last Year: Never true Ran Out of Food in the Last Year: Never true Transportation Needs: No Transportation Needs (10/30/2024) PRAPARE - Transportation Lack of Transportation (Medical): No Lack of Transportation (Non-Medical): No Social Connections: Unknown (10/30/2024) Social Connection and Isolation Panel [NHANES] Frequency of Communication with Friends and Family: Once a week Housing Stability: Unknown (10/30/2024) Housing Stability Vital Sign Unable to Pay for Housing in the Last Year: No Homeless in the Last Year: No * Dominga Muñiz CNP - 01/29/2025 7:40 AM EDTAssociated Order(s): IP CONSULT TO HELP DESK COORDINATOR CRITICAL CARE CONSULT 01/29/2025 Patient: Andrew Arnold Date of : 1945 Site: [facility] Referring Provider: Refer to consult order in electronic medical record Provider: Dominga Muñiz CNP ASSESSMENT/PLAN: Andrew Arnold 79 y.o. male with history of HTN, HLD, CAD, DM Type II, atrial fibrillation, TIA who was admitted on 01/28 with septic shock and left hand abscess. The patient underwent left ganglion cystI&D last week per orthopedic surgery. He reports increased pain and swelling since. He has beenevaluated in the ED x 3 (01/26, 01/26, 01/27) for pain and swelling. He was evaluated by orthopedic surgery yesterday. He presented to the ED and was admitted to the ICU for septic shock, DKA, and DOMENICO. Respiratory: No acute issues. Currently on room air. CXR reviewed. Encourage good pulmonary hygiene. Goal sat 90-93%. Cardiovascular: Shock, septic. Blood cultures growing Group B strep. UA+. Send urine culture, MRSA probe. Changed from Zosyn, Vancomycin, Clindamycin to PCN G. Check TTE. Norepinephrine/Vasopressin as needed. Goal MAP >65. Trend lactate. NSTEMI. Initial EKG AF with RVR. Repeat EKG. Check TTE. On heparin infusion. On aspirin, statin. Acute HFpEF. Biprosthetic aortic valve. Stop IVFs. Check BNP. Repeat TTE. Daily weights. Strict I/O. Diurese as able. Atrial Fibrillation. Metoprolol and Eliquis held on admission. Re introduce as able. Neuro/Muscular: Acute Metabolic Encephalopathy. Likely secondary to sepsis. Currently alert and oriented. Serial neuro exams. Renal: Acute Kidney Injury. Strict I/O. Avoid nephrotoxins. Medically manage electrolytes. Check renal ultrasound, CPK. Trend Cr. Anion gap metabolic acidosis. Combined DOMENICO and lactic acidosis +/- DKA. Ketones also possibly elevated due to Semaglutide use. Check VBG. Trend. GI/Nutrition: NPO. Diet per primary. Endocrine: DKA. DM Type II. A1c 8.7. Initial BHB >4. Ketones also possibly elevated due to Semaglutide use.Sp DKA protocol. Start Lantus 40u BID with ISS coverage. Stop insulin gtt 2h after Lantus administered. Stop IVFs. Goal BG <180. Heme/Onc: Anemia. Hemoglobin stable. Trend. ID: Sepsis with acute organ dysfunction and shock. BC growing group B strep. UC pending. Changed from Zosyn, Vancomycin, Clindamycin to PCN G. ID following. Left hand cellulitis. Sp left hand ganglion cyst I&D 01/26. Has had 3 ED visits since. Left handxray without gas formation; avascular necrosis and degenerative changes. Orthopedic consultation. Prophylaxis: Heparin gtt Other: Full code. 50 minutes of critical care time provided thus far today not including procedures. SUBJECTIVE: Chief Complaint/Reason for Visit: left hand pain History of Present Illness: Andrew Arnold 79 y.o. male with history of HTN, HLD, CAD, DM Type II, atrial fibrillation, TIA who was admitted on 01/28 with septic shock and left hand abscess. The patient underwent left ganglion cystremoval last week per orthopedic surgery. He reports increased pain and swelling since. He has been evaluated in the ED x 3 (01/26, 01/26, 01/27) for pain and swelling. He was evaluated by orthopedic surgery yesterday. He presented to the ED and was admitted to the ICU for septic shock, DKA, and DOMENICO. Pending Lab and Radiology Results Order Current Status Blood Culture Aerobic/Anaerobic Preliminary result Blood Culture Aerobic/Anaerobic Preliminary result Interpretation of Testing: I personally reviewed the EKG and Chest X-ray and agree with the interpretation(s). Review of Systems: All other systems reviewed and negative other than HPI Past Medical History: Diagnosis Date Aortic valve calcification Arrhythmia Atrial fibrillation (HCC) after CABG CAD (coronary artery disease) 3 Vessel Claudication Left lower extremity symptoms Fractures Ganglion cyst of dorsum of left wrist Ganglion cyst of dorsum of left wrist Hypertension Mitral valve annular calcification Myocardial infarction (HCC) 08/02/2015 Non-ST Obesity Oral cancer (HCC) Pilonidal cyst Subdural hematoma (HCC) 2008 minor trauma while on Plavix at the time. Tendonitis of wrist, right TIA (transient ischemic attack) 2007 was put on plavix then had subdural one year later. Vitreous hemorrhage of left eye (HCC) Past Surgical History: Procedure Laterality Date AORTIC VALVE REPLACEMENT CARDIAC CATHETERIZATION CARDIAC CATHETERIZATION N/A 12/25/2021 Procedure: Coronary Angiogram; Surgeon: Adilson Stone MD; Location: [facility]; Service: Cardiovascular CARDIAC CATHETERIZATION N/A 12/25/2021 Procedure: Left Heart Cath w/Grafts; Surgeon: Adilson Stone MD; Location: [facility]; Service: Cardiovascular CARDIAC VALVE REPLACEMENT CORONARY ARTERY BYPASS GRAFT 08/13/2015 3 Vessel/YEUNG to the LAD/SVG to obtuse marginal/SVG to a PDA MOUTH SURGERY 2007 Oral cancer TENDON RELEASE DEQUERVAINS Right 12/26/2018 Procedure: TENDON RELEASE DE QUERVAINS RIGHT; Surgeon: Jenaro Oquendo MD; Location: Main OR; Service: Orthopedic Family History Problem Relation Age of Onset COPD Mother Diabetes Father Stroke Paternal Grandmother Tobacco Use History[1] Additional History Comments: None Allergies: Pioglitazone Current Medications[2] Current HOME Medications: Prior to Admission Medications[3] Current HOSPITAL Medications: Current Hospital Medications[4] OBJECTIVE: Physical Examination: BP 99/69 Pulse 81 Temp 97.5 F (36.4 C) Resp (!) 21 Ht 5' 7 Wt 107.9 kg (237 lb 14 oz) SpO2 96% BMI 37.26 kg/m Temp: [97.3 F (36.3 C)-101 F (38.3 C)] 97.5 F (36.4 C) Heart Rate: [81-162] 81 Resp: [15-38] 21 BP: (64-116)/(49-86) 99/69 FiO2 (%): 40 SpO2 Readings from Last 1 Encounters: 01/29/25 96% Intake/Output Summary (Last 24 hours) at 01/29/2025 0740 Last data filed at 01/29/2025 0527 Gross per 24 hour Intake 5266.67 ml Output -- Net 5266.67 ml Vital Signs Reviewed. Gen: Alert and oriented x 3, In no apparent distress HEENT: Head: Normocephalic, no lesions, without obvious abnormality. Pharynx: Dental Hygiene adequate. Normal buccal mucosa. Normal pharynx. Neck: nontender, full range of motion, no mass, no focal lymphadenopathy Cardio: regular rate and rhythm, no murmur, brisk capillary refill Resp: clear to auscultation bilaterally, no wheezes or crackles, no tachypnea or accessory muscle use Abd: soft, nontender, nondistended, no hepatosplenomegaly, no mass, normal bowel sounds MSK: Moves all four extremities spontaneously. Neuro: Grossly normal without focal findings Skin: no rashes, no jaundice. Left hand incision with sutures intact, edema. Labs and Imaging: [x] Medications reviewed. [x] Labs reviewed. Pertinent findings noted: lactate 2.7 [x] Radiology reviewed. Pertinent findings noted: XR left hand [] Pathology reviewed. Pertinent findings noted: Family Update/ Code Status: Full code Laboratory and Additional Data Reviewed: Reviewed 01/29/25 7:40 AM: Laboratory, Microbiology, Radiology, Cardiology, and Medications [1] Social History Tobacco Use Smoking Status Former Current packs/day: 0.00 Average packs/day: 3.0 packs/day for 12.0 years (36.0 ttl pk-yrs) Types: Cigarettes Start date: 08/27/1961 Quit date: 08/27/1973 Years since quittin.4 Smokeless Tobacco Former Types: Chew [2] Current Facility-Administered Medications Medication Dose Route Frequency Provider Last Rate Last Admin acetaminophen (TYLENOL) tablet 650 mg 650 mg Oral Q4H PRN Oren Mireles, DO Or acetaminophen (TYLENOL) solution 650 mg 650 mg Tube Q4H PRN Maureen, Oren Urban, DO aspirin EC tablet 81 mg 81 mg Oral Daily Oren Mireles, DO clindamycin (CLEOCIN) IVPB 900 mg (premix) 900 mg Intravenous Q8H Oren Mireles, DO Stoppedat 01/28/25 2347 dextrose 5 % and sodium chloride 0.45 % infusion 125 mL/hr Intravenous Continuous PRN Oren Mireles, DO dextrose 5 % and sodium chloride 0.45 % with KCl 20 mEq/L infusion 125 mL/hr Intravenous ContinuousPRN Oren Mireles, DO 125 mL/hr at 01/29/25 0619 125 mL/hr at 01/29/25 0619 escitalopram oxalate (LEXAPRO) tablet 10 mg 10 mg Oral Nightly Oren Mireles, DO 10 mg at 01/29/25 0101 famotidine (PEPCID) Vial 20 mg 20 mg Intravenous Daily Umang Underwood, [facility],PharmD heparin (porcine) 25,000 unit/250 mL(100 unit/mL) in D5W infusion 0-70 Units/kg/hr Intravenous Continuous Nevin Matthew MD 12 mL/hr at 01/29/25 0721 12 Units/kg/hr at 01/29/25 0721 heparin bolus from bag 0-5,000 Units 0-5,000 Units Intravenous Continuous PRN Nevin Matthew MD 3,000 Units at 01/29/25 0722 insulin regular in 0.9 % NaCl (MYXREDLIN) 100 Units/100 mL infusion 0.1-30 Units/hr Intravenous Titrated Oren Mireles, DO 10.1 mL/hr at 01/29/25 0700 10.1 Units/hr at 01/29/25 0700 [Held by provider] lisinopriL (PRINIVIL,ZESTRIL) tablet 5 mg 5 mg Oral Daily Oren MirelesDO [Held by provider] metoprolol succinate (TOPROL-XL) 24 hr tablet 25 mg 25 mg Oral Daily Maureen, Oren Urban DO norepinephrine (LEVOPHED) 4 mg in sodium chloride 0.9% (NS) 250 mL infusion 0- 100 mcg/min Intravenous Continuous Nevin Matthew MD 18.8 mL/hr at 01/28/25 2205 5 mcg/min at 01/28/252204 And VASOpressin (PITRESSIN) 0.2 unit/mL infusion 0.03 Units/min Intravenous Continuous PRN Familia Matthew MD piperacillin-tazobactam (ZOSYN) IVPB 3.375 g (premix) 3.375 g Intravenous Q8H Maureen, Oren Urban, DO Stopped at 01/29/25 0438 potassium chloride 20 mEq in 100 mL IVPB 20 mEq Intravenous Q1H if indicated in MAR calculator Oren Mireles DO senna-docusate (SENNA-S) 8.6-50 mg per tablet 1 tablet 1 tablet Oral BID Oren Mireles DO simvastatin (ZOCOR) tablet 40 mg 40 mg Oral at bedtime Maureen, Oren Urban, DO 40 mg at 01/29/25 0101 sodium chloride (PF) (NS) flush 5 mL 5 mL Intravenous PRN Kiza, Orne Nicorettamukiza, DO And sodium chloride (PF) (NS) flush 5 mL 5 mL Intravenous Q8H TEREZA Kiza, Oren Niwemukiza, DO And sodium chloride 0.9% (NS) 0-150 mL/hr Intravenous PRN Kiza, Oren Nicorettamukiza, DO 5 mL/hr at 527 Rate Verify at 01/29/25 0527 sodium chloride (PF) (NS) flush 5 mL 5 mL Intravenous PRN Kiza, Oren Niwemukiza, DO And sodium chloride (PF) (NS) flush 5 mL 5 mL Intravenous Q8H TEREZA Kiza, Oren Niwemukiza, DO And sodium chloride 0.9% (NS) 0-150 mL/hr Intravenous PRN Oren Mireles DO 5 mL/hr at 527 Rate Verify at 01/29/25 0527 sodium chloride 0.9 % with KCl 20 mEq/L infusion 250 mL/hr Intravenous Continuous Oren Mireles DO Stopped at 01/29/25 0619 Vancomycin Intermittent Dosing 1 each Intravenous as indicated by pharmacokinetics Oren Mireles DO [3] No outpatient medications have been marked as taking for the 01/28/25 encounter (Hospital Encounter). [4] acetaminophen (TYLENOL) tablet 650 mg, 650 mg, Oral, Q4H PRN OR acetaminophen (TYLENOL) solution 650 mg, 650 mg, Tube, Q4H PRN aspirin EC tablet 81 mg, 81 mg, Oral, Daily escitalopram oxalate (LEXAPRO) tablet 10 mg, 10 mg, Oral, Nightly heparin (porcine) 25,000 unit/250 mL(100 unit/mL) in D5W infusion, 0-70 Units/kg/hr, Intravenous, Continuous heparin bolus from bag 0-5,000 Units, 0-5,000 Units, Intravenous, Continuous PRN insulin glargine (LANTUS) injection 40 Units, 40 Units, Subcutaneous, BID insulin lispro (AdmeLOG,HumaLOG) injection 0-15 Units, 0-15 Units, Subcutaneous, at bedtime ANDNotify physician, , , Until Discontinued insulin lispro (AdmeLOG,HumaLOG) injection 0-30 Units, 0-30 Units, Subcutaneous, TID AC insulin regular in 0.9 % NaCl (MYXREDLIN) 100 Units/100 mL infusion, 0.1-30 Units/hr, Intravenous, Titrated [Held by provider] lisinopriL (PRINIVIL,ZESTRIL) tablet 5 mg, 5 mg, Oral, Daily [Held by provider] metoprolol succinate (TOPROL-XL) 24 hr tablet 25 mg, 25 mg, Oral, Daily norepinephrine (LEVOPHED) 4 mg in sodium chloride 0.9% (NS) 250 mL infusion, 0- 100 mcg/min, Intravenous, Continuous AND VASOpressin (PITRESSIN) 0.2 unit/mL infusion, 0.03 Units/min, Intravenous, Continuous PRN penicillin G potassium 3 million unit/50 mL IVPB 3 Million Units, 3 Million Units, Intravenous, Q4H perflutren lipid microspheres (DEFINITY) 0.143 mg/mL solution 0-10 mL of mixture, 0-10 mL of mixture, Intravenous, Once in imaging senna-docusate (SENNA-S) 8.6-50 mg per tablet 1 tablet, 1 tablet, Oral, BID simvastatin (ZOCOR) tablet 40 mg, 40 mg, Oral, at bedtime Saline lock IV, , , Continuous AND sodium chloride (PF) (NS) flush 5 mL, 5 mL, Intravenous, PRNAND sodium chloride (PF) (NS) flush 5 mL, 5 mL, Intravenous, Q8H TEREZA AND sodium chloride 0.9% (NS), 0-150 mL/hr, Intravenous, PRN Saline lock IV, , , Continuous AND sodium chloride (PF) (NS) flush 5 mL, 5 mL, Intravenous, PRNAND sodium chloride (PF) (NS) flush 5 mL, 5 mL, Intravenous, Q8H TEREZA AND sodium chloride 0.9% (NS), 0-150 mL/hr, Intravenous, PRN Cosigned by Negro Talbert MD at 01/29/2025 3:12 PM EDT Associated attestation - Negro Talbert MD - 01/29/2025 3:12 PM EDT I have reviewed the history, physical, diagnosis and care plan with Dominga Muñiz CNP. I confirm theassessment and treatment plan: SUBJECTIVE: 79yo male admitted overnight with complaints of palpitations and sob. Recent left ganglion cyst removal. EXAM: Alert and oriented, no acute distress CTAB, no crackles or wheeze Irregular, normal rate Left wrist incision with sutures intact No lower extremity edema ASSESSMENT: Septic shock Streptococcus agalactiae bacteremia Elevated troponin, likely demand ischemia Chronic atrial fibrillation Left hand cellulitis Hyperglycemia, resolved CAD s/p CABG PLAN: Continue antibiotic, de-escalate based on cultures Repeat blood cultures tomorrow Consider SHAHAB prior to discharge to rule out vegetation Wean norepi to MAP goal >65 Trend troponin Continue heparin gtt Full code. 50 minutes critical care time provided not including procedures. documented in this [id number] [facility] 02-04-2025 [facility]-28-2025 [facility]28-2025 [facility]-28-2025 [facility]-27-2025 [facility]-27-2025 [facility]-27-2025 [facility] 02-02-2025 [facility]-26-2025 [facility]-26-2025 [facility]-26-2025 [facility]-25-2025 [facility]-25-2025 [facility]-25-2025 [facility] 02-01-2025 [facility]-25-2025 [facility]-24-2025 [facility]-24-2025 [facility]-24-2025 [facility]-24-2025 [facility]-24-2025 [facility] 01-30-2025 [facility]-23-2025 [facility]-23-2025 [facility]-23-2025 [facility]-22-2025 [facility]-21-2025 History and physical note* Oren Mireles, DO - 01/28/2025 10:16 PM EDT [facility] HISTORY AND PHYSICAL -- [facility] Patient Name: Andrew Arnold : 1945 MR #: [id number] Admit Date: 01/28/2025 Physicians: Vivien Foreman MD (Family); No ref. provider found (Referring) Andrew Arnold is a 79 y.o. male patient of Vivien Foreman MD with history of CAD status post CABG, atrial fibrillation on Eliquis, insulin- dependent type 2 diabetes mellitus, and mood disorder who presented to [facility] on 01/28/2025 with tachycardia and generalized malaise, few hours after left hand abscess drainage. Concern for toxic shock syndrome Acute encephalopathy Septic Shock Present on admission: yes Source: Skin and soft tissue suspected SIRS criteria: Temperature greater than 100.4 or less than 96.8, Heart rate greater than 90, Respiratory rate greater than 20 or PACO2 less than 32mmHg, WBC greater than 12,000, less than 4,000, or greater than 10% bands Evidence of end organ damage: SBP less than 90 or MAP less than 65 or SBP drop greater than 40mmHg,On ventilator or bipap, Lactic acid greater than 2.0 Initial lactic acid: 6.0 Repeat lactic acid: Pending Current antibiotic regimen: Vanco, Zosyn, and clindamycin Culture data: Pending Vasopressors/steroids: norepinephrine, vasopressin Infectious workup: Respiratory PCR panel, sputum culture, strep and Legionella urine antigen, ESR, CRP, MRSA by PCR, urine culture, blood cultures x 2 Initial sepsis checklist: Lactate ordered [x] Blood cultures obtained [x] Antibiotics initiated [x] IV fluids per sepsis protocol [x]--received 30 mL/cc in the ED. Given concern for shock. Will continue IV fluid challenges while on pressor support Repeat volume status and tissue perfusion assessment performed [x] Infectious disease consulted. Appreciate recommendations. Type 2 diabetes mellitus with diabetes ketoacidosis Blood glucose 528. BHB 4.2. pH 7.3. UA positive for ketones Start insulin drip, IV fluid Monitor electrolytes and replete as indicated Elevated troponin Transaminitis Troponin 708. AST 139. ALT 102 Patient currently denies any chest pain or dyspnea. Elevated troponin transaminitis suspected to besecondary to shock. Started on heparin drip in the ED. Will continue and continue to trend troponins. Serial EKGs. Continuous telemetry Acute kidney injury on chronic kidney disease Creatinine 1.65. Baseline creatinine around 1 Likely due to sepsis Addressing as above Avoid nephrotoxins Hold home lisinopril for now Monitor BMP CAD status post CABG Atrial fibrillation with RVR Presented with A-fib with RVR to as high as 162. Currently rate controlled. Most recent heart rate 97 Continue home aspirin, statin, beta-julia Hold home lisinopril due to shock Hold home Eliquis for now, however on heparin drip. Continue heparin drip Monitor vitals Mood disorder Continue home Lexapro Residence prior to admission: house or apartment Was patient transferred from outlying hospital or ED no Quality Measures DVT Prophylaxis: heparin gtt Brenner Catheter: absent Medication Reconciliation: Verified Admitted with these risk variables:Acute Kidney Injury, Chronic Kidney Disease, and Acidosis. Please see assessment and plan for further details. Estimated Date of Discharge greater than 2 midnights Code Status Full Code; unverified; reason pending verification Chief Complaint generalized malaise History of Present Illness Andrew Arnold is a 79 y.o. male patient of Vivien Foreman MD with history of CAD status post CABG, atrial fibrillation on Eliquis, insulin- dependent type 2 diabetes mellitus, and mood disorder who presented to [facility] on 01/28/2025 with tachycardia and generalized malaise, few hours after left hand abscess drainage. Patient seen and examined at bedside. Resting in bed. Unable to provide complete history of present illness. Briefly reports sudden onset symptoms consist of mostly generalized malaise and diaphoresis. Denies chest pain, dyspnea, cough, congestion. Other systems reviewed and negative. Somewhat unreliable history. Admitted for further evaluation and management. Past Medical History Past Medical History: Diagnosis Date Aortic valve calcification Arrhythmia Atrial fibrillation (HCC) after CABG CAD (coronary artery disease) 3 Vessel Claudication Left lower extremity symptoms Fractures Ganglion cyst of dorsum of left wrist Ganglion cyst of dorsum of left wrist Hypertension Mitral valve annular calcification Myocardial infarction (HCC) 08/02/2015 Non-ST Obesity Oral cancer (HCC) Pilonidal cyst Subdural hematoma (HCC) 2008 minor trauma while on Plavix at the time. Tendonitis of wrist, right TIA (transient ischemic attack) 2007 was put on plavix then had subdural one year later. Vitreous hemorrhage of left eye (HCC) Past Surgical History Past Surgical History: Procedure Laterality Date AORTIC VALVE REPLACEMENT CARDIAC CATHETERIZATION CARDIAC CATHETERIZATION N/A 12/25/2021 Procedure: Coronary Angiogram; Surgeon: Adilson Stone MD; [facility]; Service: Cardiovascular CARDIAC CATHETERIZATION N/A 12/25/2021 Procedure: Left Heart Cath w/Grafts; Surgeon: Adilson Stone MD; Location[facility]; Service: Cardiovascular CARDIAC VALVE REPLACEMENT CORONARY ARTERY BYPASS GRAFT 08/13/2015 3 Vessel/YEUNG to the LAD/SVG to obtuse marginal/SVG to a PDA MOUTH SURGERY 2007 Oral cancer TENDON RELEASE DEQUERVAINS Right 12/26/2018 Procedure: TENDON RELEASE DE QUERVAINS RIGHT; Surgeon: Jenaro Oquendo MD; Location: Main OR; Service: Orthopedic Family History Family History Problem Relation Age of Onset COPD Mother Diabetes Father Stroke Paternal Grandmother Social History Tobacco Use History[1] Social History Substance and Sexual Activity Alcohol Use Not Currently Alcohol/week: 0.0 standard drinks of alcohol Social History Substance and Sexual Activity Drug Use No Allergy Information I have reviewed the patient's allergies. Pioglitazone Home Medications Home medications were reviewed. Review Of Systems Unable to obtain--unreliable history Physical Examination BP (!) 79/57 Pulse 87 Temp (!) 101 F (38.3 C) Resp (!) 24 Ht 5' 7 Wt 99.8 kg (220 lb) SpO2 96% BMI 34.46 kg/m General Appearance: somnolent; acute on chronically ill appearing; in no acute distress HEENT: Head- normocephalic; Eyes- EOMI, sclera anicteric; Throat- mucous membranes moist Cardiovascular: Irregularly irregular rate and rhythm; peripheral edema absent Respiratory: lungs clear to auscultation; without wheezes, rales or rhonchi; on room air Abdomen: soft, non-tender, non-distended Neurological: unable to assess orientation; normal speech; no focal findings or movement disorder noted Musculoskeletal: no significant deformity or tenderness to palpation Skin: normal coloration. Dorsal aspect of left arm with surgical incision and sutures. No sign of infection noted Psych: Withdrawn -- The note was dictated using [employer] dictation system. The voice recognition software is inherently subject to errors including those of syntax and sound- alike substitutions which may escape proofreading. In such instances, original meaning may be extrapolated by contextual derivation. Reach out tome via [email or web address] for clarification, if needed. -- Critical care time spent 42 minutes excluding any billable procedures. My time managing this critically ill patient included review of interval history, laboratories, radiology and consultation reports; performing a physical examination; discussing patient with the care team and managing life sustaining therapies to prevent imminent clinical deterioration. [1] Social History Tobacco Use Smoking Status Former Current packs/day: 0.00 Average packs/day: 3.0 packs/day for 12.0 years (36.0 ttl pk-yrs) Types: Cigarettes Start date: 08/27/1961 Quit date: 08/27/1973 Years since quittin.4 Smokeless Tobacco Former Types: Chew documented in this [id number] Emergency department Note* Nevin Matthew MD - 01/28/2025 10:02 PM EDT [facility] ED note NAME: Andrew Arnold 79 y.o. CSN: [id number] PCP: Vivien Foreman MD History: Chief Complaint: Tachycardia HPI: Patient is a 79-year-old male multiple medical problems including a history of CAD status postCABG atrial fibrillation on anticoagulant with Eliquis brought to the ED by EMS with complaint of palpitation fever shortness of breath. Patient said that he was seen earlier by orthopedic had a leftganglionic cyst that was I&D he went home he started having fevers his heart started racing he said his heart rate was 160 bpm he was dizzy lightheaded EMS was called. In the ED initial vital trigger sepsis workup initiated including blood cultures. PMHx: Past Medical History: Diagnosis Date Aortic valve calcification Arrhythmia Atrial fibrillation (HCC) after CABG CAD (coronary artery disease) 3 Vessel Claudication Left lower extremity symptoms Fractures Ganglion cyst of dorsum of left wrist Ganglion cyst of dorsum of left wrist Hypertension Mitral valve annular calcification Myocardial infarction (HCC) 08/02/2015 Non-ST Obesity Oral cancer (HCC) Pilonidal cyst Subdural hematoma (HCC) 2008 minor trauma while on Plavix at the time. Tendonitis of wrist, right TIA (transient ischemic attack) 2007 was put on plavix then had subdural one year later. Vitreous hemorrhage of left eye (HCC) PMSx: Past Surgical History: Procedure Laterality Date AORTIC VALVE REPLACEMENT CARDIAC CATHETERIZATION CARDIAC CATHETERIZATION N/A 12/25/2021 Procedure: Coronary Angiogram; Surgeon: Adilson Stone MD; Location: [facility]; Service: Cardiovascular CARDIAC CATHETERIZATION N/A 12/25/2021 Procedure: Left Heart Cath w/Grafts; Surgeon: Adilson Stone MD; Location: [facility]; Service: Cardiovascular CARDIAC VALVE REPLACEMENT CORONARY ARTERY BYPASS GRAFT 08/13/2015 3 Vessel/YEUNG to the LAD/SVG to obtuse marginal/SVG to a PDA MOUTH SURGERY 2007 Oral cancer TENDON RELEASE DEQUERVAINS Right 12/26/2018 Procedure: TENDON RELEASE DE QUERVAINS RIGHT; Surgeon: Jenaro Oquendo MD; Location: Main OR; Service: Orthopedic FAM. Hx: Family History Problem Relation Age of Onset COPD Mother Diabetes Father Stroke Paternal Grandmother SOC. Hx: Social History [1] MEDs: Previous Medications Medication Sig acetaminophen (TYLENOL) 325 MG tablet Take 2 (two) tablets (650 mg total) by mouth every 6 (six) hours as needed for pain (1-2 tablets) . apixaban (Eliquis) 5 mg Tab Take 1 (one) tablet (5 mg total) by mouth 2 (two) times a day . ascorbic Acid (VITAMIN C) 500 mg CpER Take 1 (one) capsule (500 mg total) by mouth every other day . aspirin 81 MG EC tablet Take 1 tablet (81 mg total) by mouth daily. blood sugar diagnostic (RELION PRIME TEST STRIPS) strips E11.65 Use as directed 4 times per day. bumetanide (BUMEX) 1 MG tablet Take 0.5 (one-half) tablet (0.5 mg total) by mouth every other day . cilostazoL (PLETAL) 100 MG tablet TAKE 1 TABLET BY MOUTH TWICE DAILY ON AN EMPTY STOMACH (Patient taking differently: 2 (two) times a day .) clindamycin (CLEOCIN) 300 MG capsule Take 1 (one) capsule (300 mg total) by mouth 4 (four) times a day . docusate sodium (COLACE) 100 MG capsule Take 1 (one) capsule (100 mg total) by mouth 2 (two) times a day as needed . escitalopram oxalate (LEXAPRO) 10 MG tablet Take 1 (one) tablet (10 mg total) by mouth nightly . flash glucose sensor (FreeStyle Johnny 2 Sensor) Kit 1 kit by Miscellaneous route every 14 (fourteen) days Use as directed to apply new sensor . insulin glargine (Lantus U-100 Insulin) 100 unit/mL injection Inject 25 (twenty five) Units under the skin nightly . insulin lispro (AdmeLOG,HumaLOG) 100 unit/mL injection Inject 6 (six) Units to 12 (twelve) Units under the skin 3 (three) times a day before meals . insulin syringe-needle U-100 0.3 mL 31 gauge x 5/16 Syrg Use as directed QID . lancets Misc Use to check BG QID SolusV2 brand Dx E11.65. lisinopriL (PRINIVIL,ZESTRIL) 5 MG tablet Take 1 (one) tablet (5 mg total) by mouth daily . metoprolol succinate (TOPROL-XL) 25 MG 24 hr tablet Take 1 (one) tablet (25 mg total) by mouth daily . oxyCODONE-acetaminophen (PERCOCET) 5-325 mg per tablet Take 1 (one) tablet by mouth every 6 (six) hours as needed for pain (Days supply per fill: 5) . pen needle, diabetic 31 gauge x 3/16 Ndle Use as directed 4 times daily. . potassium chloride SA (K-DUR,KLOR-CON M10) 10 MEQ tablet Take 1 (one) tablet (10 mEq total) by mouth every other day . psyllium (METAMUCIL) 0.52 gram capsule Take 2 (two) capsules (1.04 g total) by mouth as needed . semaglutide (Ozempic) 1 mg/dose (4 mg/3 mL) Pen Inject 0.75 mL (1 mg total) under the skin once a week . simvastatin (ZOCOR) 40 MG tablet Take 1 (one) tablet (40 mg total) by mouth at bedtime . ALL: Allergies[2] ROS: Review of Systems Positives and pertinent negatives as per HPI. All other systems were reviewed and are negative. Physical Exam: Patient Vitals for the past 24 hrs: BP Temp Temp src Pulse Resp SpO2 Height Weight 01/29/25 0100 116/86 -- -- 97 (!) 20 95 % -- -- 01/29/25 0004 -- 97.3 F (36.3 C) Oral 88 (!) 19 94 % 5' 7 107.9 kg (237 lb 14 oz) 01/28/25 2345 106/67 -- -- 97 15 94 % -- -- 01/28/25 2330 103/67 -- -- 97 (!) 19 97 % -- -- 01/28/25 2315 102/69 -- -- 96 (!) 25 92 % -- -- 01/28/250 90/64 -- -- 95 (!) 23 97 % -- -- 01/28/252244 99/65 -- -- (!) 101 (!) 21 97 % -- -- 01/28/252229 97/63 -- -- 99 (!) 31 92 % -- -- 01/28/252212 (!) 79/57 -- -- -- -- -- -- -- 01/28/252199 (!) 64/49 -- -- 87 (!) 24 96 % -- -- 01/28/252144 (!) 76/64 -- -- 98 (!) 24 96 % -- -- 01/28/252129 (!) 75/55 -- -- (!) 103 (!) 27 95 % -- -- 01/28/252114 110/68 -- -- 99 (!) 26 93 % -- -- 01/28/25 2100 (!) 77/54 -- -- 97 (!) 36 (!) 87 % -- -- 01/28/252053 -- -- -- -- -- 96 % -- -- 01/28/252014 91/70 -- -- (!) 130 (!) 38 90 % -- -- 01/28/251999 (!) 85/75 -- -- (!) 127 (!) 29 90 % -- -- 01/28/251944 (!) 77/59 -- -- (!) 103 (!) 23 91 % -- -- 01/28/251936 -- (!) 101 F (38.3 C) -- -- -- -- -- -- 01/28/251929 107/66 -- -- (!) 149 (!) 32 92 % -- -- 01/28/251922 107/66 -- -- (!) 162 (!) 30 91 % 5' 7 99.8 kg (220 lb) Physical Exam Vitals and nursing note reviewed. Constitutional: Appearance: He is ill-appearing and toxic-appearing. HENT: Head: Normocephalic and atraumatic. Nose: Congestion and rhinorrhea present. Eyes: Conjunctiva/sclera: Conjunctivae normal. Cardiovascular: Rate and Rhythm: Regular rhythm. Tachycardia present. Musculoskeletal: General: Normal range of motion. Cervical back: Normal range of motion and neck supple. Pulmonary: Effort: Pulmonary effort is normal. No respiratory distress. Breath sounds: Normal breath sounds. No wheezing. Abdominal: General: Bowel sounds are normal. Palpations: Abdomen is soft. Tenderness: There is no abdominal tenderness. Skin: General: Skin is warm. Neurological: Mental Status: He is alert and oriented to person, place, and time. Motor: Weakness present. Laboratory & Radiological Imaging (if done): Labs Reviewed COMPREHENSIVE METABOLIC PANEL - Abnormal; Notable for the following components: Result Value Sodium 126 (*) Chloride 88 (*) Bicarbonate 14 (*) Anion Gap 29 (*) Glucose 528 (*) BUN 34 (*) Creatinine 1.65 (*) eGFR 42 (*) BUN/Creatinine Ratio 20.6 (*) AST 139 (*) ALT 102 (*) Total Bilirubin 1.7 (*) All other components within normal limits Narrative: [facility] has implemented the eGFR calculation approach that does not have a coefficient for race that conforms to the NKF-ASN Task Force Recommendations. TROPONIN X 2 (NOW AND REPEAT IN 2 HOURS) - Abnormal; Notable for the following components: Troponin T 247 (*) All other components within normal limits TROPONIN X 2 (NOW AND REPEAT IN 2 HOURS) - Abnormal; Notable for the following components: Troponin T 708 (*) Troponin T Delta % 186 (*) All other components within normal limits BETA-HYDROXYBUTYRATE - Abnormal; Notable for the following components: Beta-Hydroxybutyrate 4.2 (*) All other components within normal limits LACTIC ACID, PLASMA - Abnormal; Notable for the following components: Lactic Acid 6.0 (*) All other components within normal limits BILIRUBIN, DIRECT - Abnormal; Notable for the following components: Bilirubin, Direct 1.0 (*) All other components within normal limits REFLEX LACTIC ACID, PLASMA - Abnormal; Notable for the following components: Lactic Acid 5.8 (*) All other components within normal limits URINALYSIS - Abnormal; Notable for the following components: Protein, Urine 30 (*) Glucose, Urine >=500 (*) Ketones, Urine 20 (*) Blood, Urine Small (*) Leukocyte Esterase, Urine Trace (*) WBCs, Urine 26 (*) RBCs, Urine 10 (*) Bacteria, Urine Rare (*) Hyaline Casts 3-5 (*) All other components within normal limits Narrative: Microscopic examination is performed on all urinalysis samples and only positive findings are reported. The test for blood on the chemical analytic portion of urinalysis may also be positive due to hemoglobinuria and myoglobinuria and if red blood cells are present they are quantified by microscopic examination. D-DIMER, QUANTITATIVE - Abnormal; Notable for the following components: D-Dimer 3.48 (*) All other components within normal limits Narrative: A D-dimer concentration of <0.5 micrograms per milliliter FEU is considered a low probability for pulmonary embolus (PE) and deep venous thrombosis (DVT). Results of this test should always be interpreted in conjunction with the patient's medical history,clinical presentation, and other findings. Clinical diagnosis should not be based on the results of the D-dimer alone. CBC - Abnormal; Notable for the following components: WBC 22.21 (*) RBC 3.97 (*) Hemoglobin 10.8 (*) Hematocrit 34.2 (*) Nucleated RBC Abs 0.02 (*) All other components within normal limits BASIC METABOLIC PANEL - Abnormal; Notable for the following components: Sodium 129 (*) Chloride 96 (*) Bicarbonate 13 (*) Anion Gap 25 (*) Glucose 464 (*) BUN 38 (*) Creatinine 1.86 (*) eGFR 36 (*) BUN/Creatinine Ratio 20.4 (*) Calcium 8.2 (*) All other components within normal limits Narrative: [facility] has implemented the eGFR calculation approach that does not have a coefficient for race that conforms to the NKF-ASN Task Force Recommendations. BETA-HYDROXYBUTYRATE - Abnormal; Notable for the following components: Beta-Hydroxybutyrate 2.1 (*) All other components within normal limits HEMOGLOBIN A1C - Abnormal; Notable for the following components: Hemoglobin A1C 8.7 (*) Estimated Average Glucose 203 (*) All other components within normal limits PHOSPHORUS - Abnormal; Notable for the following components: Phosphorus 3.9 (*) All other components within normal limits SEDIMENTATION RATE - Abnormal; Notable for the following components: Sed Rate 69 (*) All other components within normal limits CRP, INFLAMMATION - Abnormal; Notable for the following components: CRP(Inflammation) 311.0 (*) All other components within normal limits PROCALCITONIN - Abnormal; Notable for the following components: Procalcitonin 2.66 (*) All other components within normal limits Narrative: Results >2.00 ng/ml represent a high risk of severe sepsis and/or septic shock. TROPONIN X 2 (NOW AND REPEAT IN 2 HOURS) - Abnormal; Notable for the following components: Troponin T 1,046 (*) Troponin T Delta % 323 (*) All other components within normal limits POC GLUCOSE - RALS - Abnormal; Notable for the following components: Glucose >500 (*) All other components within normal limits Narrative: Critical result acted upon time of test. Test performed at bedside. POC VENOUS BLOOD GAS PANEL-PULM - RALS - Abnormal; Notable for the following components: pH, Venous 7.30 (*) pCO2, James 30.0 (*) pO2, James 42 (*) Base Excess, James -10.4 (*) HCO3, James 14.7 (*) Ionized Calcium 4.4 (*) Lactic Acid 5.4 (*) Hemoglobin, Blood Gas 11.9 (*) Hematocrit, Calculated 36.4 (*) O2 Sat, James 73.7 (*) Carboxyhemoglobin 2.5 (*) Sodium 127 (*) Glucose 522 (*) Chloride 94 (*) All other components within normal limits Narrative: Critical result acted upon time of test. Test performed at bedside. POC VENOUS BLOOD GAS PANEL-PULM - RALS - Abnormal; Notable for the following components: pH, Venous 7.24 (*) pCO2, James 31.4 (*) pO2, James 74 (*) Base Excess, James -12.8 (*) HCO3, James 13.4 (*) Ionized Calcium 4.2 (*) Lactic Acid 5.7 (*) Hemoglobin, Blood Gas 11.4 (*) Hematocrit, Calculated 35.0 (*) O2 Sat, James 93.3 (*) Carboxyhemoglobin 2.5 (*) Sodium 130 (*) Glucose 450 (*) All other components within normal limits Narrative: Critical result acted upon time of test. Test performed at bedside. POC GLUCOSE - RALS - Abnormal; Notable for the following components: Glucose 456 (*) All other components within normal limits Narrative: Critical result acted upon time of test. Test performed at bedside. POC GLUCOSE - RALS - Abnormal; Notable for the following components: Glucose 409 (*) All other components within normal limits Narrative: Critical result acted upon time of test. Test performed at bedside. POC GLUCOSE - RALS - Abnormal; Notable for the following components: Glucose 394 (*) All other components within normal limits CBC WITH AUTO DIFFERENTIAL - Abnormal; Notable for the following components: WBC 18.14 (*) RBC 4.32 (*) Hemoglobin 11.7 (*) Hematocrit 36.6 (*) Neutrophils Abs 16.90 (*) Lymphocytes Abs 0.31 (*) IG Absolute 0.31 (*) All other components within normal limits MAGNESIUM LEVEL - Normal BLOOD CULTURE AEROBIC/ANAEROBIC BLOOD CULTURE AEROBIC/ANAEROBIC CBC AND DIFFERENTIAL Narrative: The following orders were created for panel order CBC w/ Diff. Procedure Abnormality Status --------- ------ CBC Auto Differential[[id number]] Abnormal Final result Please view results for these tests on the individual orders. OBTAIN VENOUS BLOOD GASES AND PERFORM OBTAIN VENOUS BLOOD GASES AND PERFORM BASIC METABOLIC PANEL BETA-HYDROXYBUTYRATE PHOSPHORUS MAGNESIUM LEVEL APTT HEPARIN COVERAGE REFLEX LACTIC ACID, PLASMA TROPONIN X 2 (NOW AND REPEAT IN 2 HOURS) BASIC METABOLIC PANEL BETA-HYDROXYBUTYRATE MAGNESIUM LEVEL POC GLUCOSE POC GLUCOSE POC GLUCOSE POC GLUCOSE POC GLUCOSE POC GLUCOSE CT Pulmonary Arteries Final Result No evidence for acute pulmonary embolism. Ground-glass airspace opacities of the upper lobes suspicious for atypical inflammatory or infectious process. Reflux of contrast into the hepatic veins suggesting CHF. Workstation ID: [id number] XR Chest 1 View Final Result 1. Borderline cardiomegaly and stable elevation of the right hemidiaphragm. 2. Chronic changes noted bilaterally. Workstation ID: [id number] Procedures: Procedures His past medical problem list included: Active Ambulatory Problems Diagnosis Date Noted Hypertension S/P CABG (coronary artery bypass graft) 09/01/2015 S/P AVR 09/01/2015 Fractured sternal wires ([facility]) 09/01/2015 Type 2 diabetes mellitus with retinopathy of both eyes, with long-term current use of insulin ([facility])09/23/2015 Hypercholesterolemia 09/23/2015 Iron deficiency anemia 06/15/2016 RBBB 08/19/2016 Wrist pain, chronic, right 12/15/2018 De Quervain's disease (radial styloid tenosynovitis) 12/15/2018 DDD (degenerative disc disease), lumbar 10/02/2019 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 Obesity (BMI 30-39.9) 12/16/2020 Benign prostatic hyperplasia with urinary retention 12/16/2020 Hearing loss, sensorineural 12/16/2020 Skin mole 12/17/2020 A-fib ([facility]) 01/09/2021 Balance disorder 03/02/2021 Anxiety and depression 03/02/2021 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 ([facility]) 12/10/2021 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, bilateral legs ([facility]) 03/17/2022 Mild major depression 06/14/2022 Medicare annual wellness visit, subsequent 06/14/2022 Advanced directives, counseling/discussion 06/15/2022 halfway current use of anticoagulant 12/09/2022 PAD (peripheral artery disease) ([facility]) 07/28/2023 Aneurysm of ascending aorta without rupture ([facility]) 07/28/2023 Poorly controlled diabetes mellitus ([facility]) 07/28/2023 Abrasion, right foot, subsequent encounter 10/27/2023 At high risk for falls 12/19/2023 Resolved Ambulatory Problems Diagnosis Date Noted CAD (coronary artery disease) Postoperative atrial fibrillation ([facility]) 09/01/2015 Delayed wound healing 10/15/2015 Chest pain 12/01/2018 Prominent abdominal aortic pulse 12/01/2018 Traumatic subdural hemorrhage ([facility]) 03/22/2008 Ventricular fibrillation ([facility]) 06/12/2021 Chest discomfort 12/10/2021 Abnormal stress test 12/22/2021 PAD (peripheral artery disease) ([facility]) 02/22/2022 Cough 07/23/2022 Diarrhea 01/21/2023 Morbid obesity ([facility]) 11/29/2023 Past Medical History: Diagnosis Date Aortic valve calcification Arrhythmia Atrial fibrillation ([facility]) Claudication Fractures Ganglion cyst of dorsum of left wrist Ganglion cyst of dorsum of left wrist Mitral valve annular calcification Myocardial infarction ([facility]) 08/02/2015 Obesity Oral cancer (HCC) Pilonidal cyst Subdural hematoma (HCC) 2009 Tendonitis of wrist, right TIA (transient ischemic attack) 2008 Vitreous hemorrhage of left eye (HCC) ED MEDICATIONS GIVEN: Medications norepinephrine (LEVOPHED) 4 mg in sodium chloride 0.9% (NS) 250 mL infusion (5 mcg/min Intravenous New Bag 01/28/252204) And VASOpressin (PITRESSIN) 0.2 unit/mL infusion (has no administration in time range) heparin (porcine) 25,000 unit/250 mL(100 unit/mL) in D5W infusion (10 Units/kg/hr 99.8 kg Intravenous New Bag 01/28/25 2225) heparin bolus from bag 0-5,000 Units (has no administration in time range) sodium chloride (PF) (NS) flush 5 mL (has no administration in time range) And sodium chloride (PF) (NS) flush 5 mL ( Intravenous Canceled Entry 01/29/2551) And sodium chloride 0.9% (NS) (5 mL/hr Intravenous New Bag 01/29/2534) senna-docusate (SENNA-S) 8.6-50 mg per tablet 1 tablet (has no administration in time range) Vancomycin Intermittent Dosing (has no administration in time range) piperacillin-tazobactam (ZOSYN) IVPB 3.375 g (premix) (3.375 g Intravenous New Bag 01/29/25 0036) clindamycin (CLEOCIN) IVPB 900 mg (premix) (0 mg Intravenous Stopped 01/28/257) famotidine (PEPCID) Vial 20 mg (has no administration in time range) acetaminophen (TYLENOL) tablet 650 mg (has no administration in time range) Or acetaminophen (TYLENOL) solution 650 mg (has no administration in time range) sodium chloride (PF) (NS) flush 5 mL (has no administration in time range) And sodium chloride (PF) (NS) flush 5 mL ( Intravenous Canceled Entry 01/29/252) And sodium chloride 0.9% (NS) (5 mL/hr Intravenous New Bag 01/29/255) potassium chloride 20 mEq in 100 mL IVPB (20 mEq Intravenous Not Given 01/29/25 0100) insulin regular in 0.9 % NaCl (MYXREDLIN) 100 Units/100 mL infusion (14 Units/hr Intravenous Rate/Dose Change 01/29/25115) sodium chloride 0.9 % with KCl 20 mEq/L infusion (250 mL/hr Intravenous New Bag 01/29/2513) dextrose 5 % and sodium chloride 0.45 % infusion (has no administration in time range) dextrose 5 % and sodium chloride 0.45 % with KCl 20 mEq/L infusion (has no administration in time range) lisinopriL (PRINIVIL,ZESTRIL) tablet 5 mg ( Oral Held Dose 02/01/25899) metoprolol succinate (TOPROL-XL) 24 hr tablet 25 mg ( Oral Held Dose 02/01/25899) simvastatin (ZOCOR) tablet 40 mg (40 mg Oral Given 01/29/25100) escitalopram oxalate (LEXAPRO) tablet 10 mg (10 mg Oral Given 01/29/25100) aspirin EC tablet 81 mg (has no administration in time range) metoprolol (LOPRESSOR) injection 5 mg (5 mg Intravenous Given 01/28/251941) sodium chloride 0.9% (NS) bolus 500 mL (0 mL Intravenous Stopped 01/28/252053) ipratropium-albuteroL (DUO-NEB) 0.5-2.5 mg/3 ml nebulizer solution 3 mL (3 mL Inhalation Given 01/28/252051) ketorolac (TORADOL) injection 15 mg (15 mg Intravenous Given 01/28/252050) sodium chloride (PF) (NS) 0.9 % contrast line flush 10 mL (10 mL Intravenous Given 01/28/252107) And sodium chloride (PF) (NS) 0.9 % contrast line flush 80 mL (80 mL Intravenous Given 01/28/252106) iopamidoL (ISOVUE-370) 370 mg iodine /mL (76 %) injection 75 mL (75 mL Intravenous Contrast Administered 01/28/252106) sodium chloride 0.9% (NS) bolus 1,000 mL (0 mL Intravenous Stopped 01/28/252204) piperacillin-tazobactam (ZOSYN) IVPB 4.5 g (premix) (0 g Intravenous Stopped 01/28/252152) vancomycin (VANCOCIN) 2000 mg in sodium chloride 0.9% 500 mL IVPB (0 mg Intravenous Stopped ) insulin regular (Humulin R, Novolin R) injection 20 Units (20 Units Subcutaneous Given 01/28/252208) lactated ringers bolus 1,000 mL (0 mL Intravenous Stopped 01/28/252345) albumin human 25 % solution 25 g (25 g Intravenous New Bag 01/29/25 0130) After reviewing the items above, I look at previous medical documentation, such as recent hospitalizations, office visits, and/or recent consultations with PCP/specialist. SDOH: Another factor that I considered in Andrew's care was his Social Determinants of Health (SDOH). During this ED encounter, he LAB TESTING: Ancillary lab testing . CBC CMP lactic acid blood cultures VBG RADIOLOGY: I did consider radiological studies for Rikis care today, . Chest x-ray 1 view, CT pulmonary artery ED COURSE: Patient is a 79-year-old male multiple medical problems including a history of CAD status post CABGatrial fibrillation on anticoagulant with Eliquis brought to the ED by EMS with complaint of palpitation fever shortness of breath. Patient said that he was seen earlier by orthopedic had a left ganglionic cyst that was I&D he went home he started having fevers initial vitals in the ED were conc erning for sepsis for which further workup initiated including blood cultures IV fluids IV antibiotics his workup thus far is consistent with atypical pneumonia with CHF he was given IV fluids blood pressure still low requiring pressors troponins elevated started heparin drip he will be admitted for further management. Discussed with hospitalist physician accept admission for further management. An order for BIPAP has been placed to start on 01/28/2025, for a diagnosis of Acute respiratory failure with hypoxia and hypercarbia (HCC). . Clinical Impression: 1. Septic shock (HCC) 2. Shortness of breath 3. Elevated troponin 4. DKA (diabetic ketoacidosis) (HCC) 5. Anemia of chronic disease Disposition: ED Disposition ED Disposition Hospitalize Condition -- Comment Reason for inpatient over two midnights: See H&P New Prescriptions This print group is not available in inpatient encounters. Please contact a business system consultant. Nevin Matthew MD ED Attending Physician [facility] (Please note that portions of this note have been completed with a voice recognition software. Efforts were made to correct any errors, but occasionally words are mis-transcribed.) [1] Social History Socioeconomic History Marital status: Tobacco Use Smoking status: Former Current packs/day: 0.00 Average packs/day: 3.0 packs/day for 12.0 years (36.0 ttl pk-yrs) Types: Cigarettes Start date: 08/27/1961 Quit date: 08/27/1973 Years since quittin.4 Smokeless tobacco: Former Types: Chew Vaping Use Vaping status: Never Used Substance and Sexual Activity Alcohol use: Not Currently Alcohol/week: 0.0 standard drinks of alcohol Drug use: No Sexual activity: Not Currently Partners: Female Social History Narrative Living with partner, 2 kids and one grand-duaghter Retired [place] [employer] in 2005 Social Drivers of Health Financial Resource Strain: Low Risk (10/30/2024) Overall Financial Resource Strain (CARDIA) Difficulty of Paying Living Expenses: Not hard at all Food Insecurity: No Food Insecurity (10/30/2024) Hunger Vital Sign Worried About Running Out of Food in the Last Year: Never true Ran Out of Food in the Last Year: Never true Transportation Needs: No Transportation Needs (10/30/2024) PRAPARE - Transportation Lack of Transportation (Medical): No Lack of Transportation (Non-Medical): No Social Connections: Unknown (10/30/2024) Social Connection and Isolation Panel [NHANES] Frequency of Communication with Friends and Family: Once a week Housing Stability: Unknown (10/30/2024) Housing Stability Vital Sign Unable to Pay for Housing in the Last Year: No Homeless in the Last Year: No [2] Allergies Allergen Reactions Pioglitazone GI Intolerance Nevin Matthew MD 01/29/25 0202 * Sonam Rawls RN - 01/28/2025 9:37 PM EDT Hourly rounding assessment completed on the patient. [x] Patient updated on plan of care [x] All comfort needs addressed [x] Patient updated on duration of visit All questions answered, patient denies further needs. Call light within reach. * Sonam Rawls RN - 01/28/2025 7:31 PM EDT Glucometer out of range. * Sonam Rawls RN - 01/28/2025 7:21 PM EDT Patient arrives via EMS. Patient is alert and oriented. Patient seen today for infected area to left hand. Patient called 911 due to feeling a fast heart rate. Per EMS patient was afib in 160's. Patient states he is on eliquis. EMS also reports BG in 500's en route * Elias Esparza RN - 01/28/2025 7:18 PM EDT Bed: 17 Expected date: Expected time: Means of arrival: Comments: Strawn documented in this [id number] NoteOPG [address] (11) [facility] [address] [facility] [id number] Andrew Arnold is a 79 y.o. male being seen today, 01/28/25, Chief Complaint Patient presents with Left Hand - Pain, Wound Check [chief complaint] dorsal left wrist pain HPI Dictation: This man had a limited incision and drainage of what was felt to be a ganglion cyst I believe over the dorsum of his left wrist seen in the ER same date of procedure 01/26/2025 with swelling no erythema or drainage in some persistent pain [hpi] placed on antibiotics and Percocet seen here for evaluation today Physical Exam Dictation: [PE] on exam there is dorsal swelling there is no surrounding erythema or drainage or appears to be a limited I&D I believe there is 1 or [address] Assessment and Plan Dictation: [AP] wrist pain after procedure for what I think was felt to be a ganglion cyst at this point it does not appear that any further treatment is necessary continue antibiotics pain control I will see him back in a week or later this week if becomes more symptomatic over the weekend if it is more severe he should return to the ER I have reviewed all relevant histories, medications, allergies, and problem list items with Andrew Arnold during this visit. Review of Systems Constitutional: Negative for chills and fever. HENT: Negative for congestion. Respiratory: Negative for shortness of breath. Cardiovascular: Negative for chest pain. Gastrointestinal: Negative for diarrhea, nausea and vomiting. Neurological: Negative for headaches. Psychiatric/Behavioral: Negative for behavioral problems. Ht 5' 7 Wt 99.8 kg (220 lb) BMI 34.46 kg/m Imaging: XR Wrist Left 3+ Views (Standard) Result Date: 01/27/2025 EXAMINATION: XR WRIST LEFT 3+ VIEWS (STANDARD) HISTORY: ORDERING SYSTEM PROVIDED HISTORY: pain, TECHNOLOGIST PROVIDED HISTORY: Illness/Other Reason for exam: severe pain, pt states ganglion cyst Cancer History: u Surgery, RadiationHistory: u Encounter Type: Initial Additional signs and symptoms: wound check ORDERING SYSTEM PROVIDED DIAGNOSIS CODES: COMPARISON: Left hand series dated 11/07/2024. TECHNIQUE: AP, oblique and lateral portable views of the left wrist performed. FINDINGS: The bony structures are osteopenic. Stable 5.2 mm ulnar minus variance. There is no acute fracture. 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 Stable severe degenerative changes at the DRUJ and stable mild degenerative changes at the 1st CMC articulations. There are intraosseous ganglia within the scaphoid and lunate. Erosive changes are again seen of the ulnar styloid process and fovea suggestingan inflammatory arthritis. There is soft tissue swelling of the wrist.There are multi-vessel atheromatous calcifications. Stable 5.2 mm ulnar minus variance. 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 Stable severe degenerative changes at the DRUJ and stable mild degenerative changes at the 1st CMC articulation. There are intra osseous ganglia within the scaphoid and lunate. Erosive changes are again seen of the ulnar styloid process and fovea suggesting an inflammatory arthritis. There is soft tissue swelling at the wrist. Workstation ID: [id number] 1. Left wrist pain Return in about 1 week (around 02/04/2025). Bradley Moore MD AUTHENTICATED BY BRADLEY MOORE, ON 01/28/2025 13:12:17[facility]07-21-2025 History of Present illness Narrative* Bradley Moore MD - 01/28/2025 1:10 PM EDT [facility] [address] (11) [facility] [address] [facility] [id number] Andrew Arnold is a 79 y.o. male being seen today, 01/28/25, Chief Complaint Patient presents with Left Hand - Pain, Wound Check [chief complaint] dorsal left wrist pain HPI Dictation: This man had a limited incision and drainage of what was felt to be a ganglion cyst I believe over the dorsum of his left wrist seen in the ER same date of procedure 01/26/2025 with swelling no erythema or drainage in some persistent pain [hpi] placed on antibiotics and Percocet seen here for evaluation today Physical Exam Dictation: [PE] on exam there is dorsal swelling there is no surrounding erythema or drainage or appears to dorie limited I&D I believe there is 1 or [address] Assessment and Plan Dictation: [AP] wrist pain after procedure for what I think was felt to be a ganglion cyst at this point it does not appear that any further treatment is necessary continue antibiotics pain control I will see him back in a week or later this week if becomes more symptomatic over the weekend if it is more severe he should return to the ER I have reviewed all relevant histories, medications, allergies, and problem list items with Andrew Gonzalez during this visit. Review of Systems Constitutional: Negative for chills and fever. HENT: Negative for congestion. Respiratory: Negative for shortness of breath. Cardiovascular: Negative for chest pain. Gastrointestinal: Negative for diarrhea, nausea and vomiting. Neurological: Negative for headaches. Psychiatric/Behavioral: Negative for behavioral problems. Ht 5' 7 Wt 99.8 kg (220 lb) BMI 34.46 kg/m Imaging: XR Wrist Left 3+ Views (Standard) Result Date: 01/27/2025 EXAMINATION: XR WRIST LEFT 3+ VIEWS (STANDARD) HISTORY: ORDERING SYSTEM PROVIDED HISTORY: pain, TECHNOLOGIST PROVIDED HISTORY: Illness/Other Reason for exam: severe pain, pt states ganglion cyst Cancer History: u Surgery, RadiationHistory: u Encounter Type: Initial Additional signs and symptoms: wound check ORDERING SYSTEM PROVIDED DIAGNOSIS CODES: COMPARISON: Left hand series dated 11/07/2024. TECHNIQUE: AP, oblique and lateral portable views of the left wrist performed. FINDINGS: The bony structures are osteopenic. Stable 5.2 mm ulnar minus variance. There is no acute fracture. 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 Stable severe degenerative changes at the DRUJ and stable mild degenerative changes at the 1st CMC articulations. There are intraosseous ganglia withinthe scaphoid and lunate. Erosive changes are again seen of the ulnar styloid process and fovea suggesting an inflammatory arthritis. There is soft tissue swelling of the wrist. There are multi-vesselatheromatous calcifications. Stable 5.2 mm ulnar minus variance. 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 Stable severe degenerative changes at the DRUJ and stable mild degenerative changes at the 1st CMC articulation. There are intra osseous ganglia within the scaphoid and lunate. Erosive changes are again seen of the ulnar styloid process and fovea suggesting an inflammatory arthritis. There is soft tissue swelling at the wrist. Workstation ID: [id number] 1. Left wrist pain Return in about 1 week (around 02/04/2025). Bradley Moore MD documented in this [id number] NoteThis encounter was created in error - please disregard. AUTHENTICATED BY LILIYA FINE ON 01/24/2025 07:48:38[facility]06-06-2025 Telephone encounter Note* Telephone Encounter - Jeri Mccallum LPN - 12/14/2024 8:20 AM EDT Last OV 10/30/24. Next OV 02/26/25. [id number] Miscellaneous Notes* Telephone Encounter - Jeri Mccallum LPN - 12/14/2024 8:20 AM EDT Last OV 10/30/24. Next OV 02/26/25. documented in this [id number] NoteNail care Patient is a pleasant 78 year-old male who comes in today for nail care. His geriatric status and diabetes is managed by primary including Dr. Foreman. Comes in today for nail care. Physical Vascular: DP pulses are palpable 2-4. PT pulses are nonpalpable due to edema. +1 foot and ankle edema. Skin is shiny atrophic dysvascular with absence of hair growth. Feet are warm to cool proximal to distal. Nails left foot [id number] and right foot 23300 are elongated thickened mycotic crumbling dystrophic. Neuro: Light blunted at 3-6 sites bilaterally. Babinski's is blunted. Musculoskeletal: Can easily wiggle toes not any clicking or catching. Mild hammering of the distal digits 2 through 4 right and left foot with some pes planovalgus foot type. 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 -Given his elevated limb loss risk score he does qualify for nail care. Procedure: After timeout consent was performed, sharply debrided and debulk in height and length 10 onychomycotic nails with a sharp around nail nippers consistent with a q8 modifier. Follow-up in 3 months AUTHENTICATED BY HOLA ARROYO JR., ON 11/21/2024 17:03:31[facility]05-14-2025 History of Present illness Narrative* Hola Arroyo Jr., DPM - 11/21/2024 5:03 PM EDT Nail care Patient is a pleasant 78 year-old male who comes in today for nail care. His geriatric status and diabetes is managed by primary including Dr. Foreman. Comes in today for nail care. Physical Vascular: DP pulses are palpable 2-4. PT pulses are nonpalpable due to edema. +1 foot and ankle edema. Skin is shiny atrophic dysvascular with absence of hair growth. Feet are warm to cool proximal to distal. Nails left foot [id number] and right foot 88291 are elongated thickened mycotic crumbling dystrophic. Neuro: Light blunted at 3-6 sites bilaterally. Babinski's is blunted. Musculoskeletal: Can easily wiggle toes not any clicking or catching. Mild hammering of the distal digits 2 through 4 right and left foot with some pes planovalgus foot type. 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 -Given his elevated limb loss risk score he does qualify for nail care. Procedure: After timeout consent was performed, sharply debrided and debulk in height and length 10onychomycotic nails with a sharp around nail nippers consistent with a q8 modifier. Follow-up in 3 months documented in this [id number] NotePatient ID: Andrew Arnold is a 79 y.o. male 1945 Subjective: Andrew Arnold presents for follow-up of Type 2 diabetes Patient has had diabetes for 24 years. Diagnosed in 12/02: Reports no major issues, was in [place] for 3-4 months and was not using his elliptical and eating more carbohydrates and starches. Outpatient Medications Marked as Taking for the 11/12/24 encounter (Office Visit) with Radha Hughes CNP: acetaminophen (TYLENOL) 325 MG tablet, Take 2 (two) tablets (650 mg total) by mouth every 6 (six) hours as needed for pain (1-2 tablets) . apixaban (Eliquis) 5 mg Tab, Take 1 (one) tablet (5 mg total) by mouth 2 (two) times a day . ascorbic Acid (VITAMIN C) 500 mg CpER, Take 1 (one) capsule (500 mg total) by mouth every other day . aspirin 81 MG EC tablet, Take 1 tablet (81 mg total) by mouth daily. blood sugar diagnostic (RELION PRIME TEST STRIPS) strips, E11.65 Use as directed 4 times per day. bumetanide (BUMEX) 1 MG tablet, Take 0.5 (one-half) tablet (0.5 mg total) by mouth every other day . cilostazoL (PLETAL) 100 MG tablet, TAKE 1 TABLET BY MOUTH TWICE DAILY ON AN EMPTY STOMACH (Patient taking differently: 2 (two) times a day .) docusate sodium (COLACE) 100 MG capsule, Take 1 (one) capsule (100 mg total) by mouth 2 (two) times a day as needed . escitalopram oxalate (LEXAPRO) 10 MG tablet, Take 1 (one) tablet (10 mg total) by mouth nightly . flash glucose sensor (FreeStyle Johnny 2 Sensor) Kit, 1 kit by Miscellaneous route every 14 (fourteen) days Use as directed to apply new sensor . insulin glargine (Lantus U-100 Insulin) 100 unit/mL injection, Inject 25 (twenty five) Units under the skin nightly . insulin lispro (AdmeLOG,HumaLOG) 100 unit/mL injection, Inject 6 (six) Units to 12 (twelve) Units under the skin 3 (three) times a day before meals . insulin syringe-needle U-100 0.3 mL 31 gauge x 5/16 Syrg, Use as directed QID . lancets [facility], Use to check BG QID SolusV2 brand Dx E11.65. lisinopriL (PRINIVIL,ZESTRIL) 5 MG tablet, Take 1 (one) tablet (5 mg total) by mouth daily . metoprolol succinate (TOPROL-XL) 25 MG 24 hr tablet, Take 1 (one) tablet (25 mg total) by mouth daily . pen needle, diabetic 31 gauge x 3/16 Ndle, Use as directed 4 times daily. . potassium chloride SA (K-DUR,KLOR-CON M10) 10 MEQ tablet, Take 1 (one) tablet (10 mEq total) by mouth every other day . psyllium (METAMUCIL) 0.52 gram capsule, Take 2 (two) capsules (1.04 g total) by mouth as needed . semaglutide (Ozempic) 1 mg/dose (4 mg/3 mL) Pen, Inject 0.75 mL (1 mg total) under the skin once a week . simvastatin (ZOCOR) 40 MG tablet, Take 1 (one) tablet (40 mg total) by mouth at bedtime . Review of Systems: Review of Systems Constitutional: Negative for fatigue and unexpected weight change. HENT: Positive for hearing loss. Negative for trouble swallowing. Eyes: Negative for visual disturbance. Respiratory: Negative for cough and shortness of breath. Cardiovascular: Negative for chest pain and leg swelling. Gastrointestinal: Negative for abdominal pain, constipation, diarrhea, nausea and vomiting. Endocrine: Negative for polydipsia, polyphagia and polyuria. Genitourinary: Negative for frequency and urgency. Musculoskeletal: Left hand possible lipoma or cyst. Skin: Negative for wound. Neurological: Positive for weakness (pain with walking) and numbness (in feet). Negative for headaches. Psychiatric/Behavioral: Negative for agitation and sleep disturbance. The patient is not nervous/anxious. The following portions of the patient's history were reviewed and updated as appropriate: allergies, current medications, past family history, past medical history, past social history, past surgical history and problem list. Objective: BP 109/71 Pulse 99 Wt 101.3 kg (223 lb 6.4 oz) BMI 34.99 kg/m Wt Readings from Last 3 Encounters: 11/12/24 101.3 kg (223 lb 6.4 oz) 10/30/24 101.6 kg (223 lb 14.4 oz) 10/19/24 99.3 kg (219 lb) Physical Exam: General: alert, appears stated age and cooperative Eyes: conjunctivae/corneas clear. PERRL, EOM's intact. Neck: no adenopathy, supple, symmetrical, trachea midline. 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 Neuro: normal without focal findings, mental status, speech normal, alert and oriented x3 and SIERRA Laboratory Review: BP 109/71 Pulse 99 Wt 101.3 kg (223 lb 6.4 oz) BMI 34.99 kg/m Date: 11/09/24: *labs reviewed 11/12/24 (more content not included)...[facility] 11-12-2024 History of Present illness Narrative* Radha Hughes CNP - 11/12/2024 9:03 AM EDT Images from the original note were not included. Patient ID: Andrew Arnold is a 79 y.o. male 1945 Subjective: Andrew Arnold presents for follow-up of Type 2 diabetes Patient has had diabetes for 24 years. Diagnosed in 12/02: Reports no major issues, was in [place] 3[place] and was not using his elliptical and eatingmore carbohydrates and starches. Outpatient Medications Marked as Taking for the 11/12/24 encounter (Office Visit) with Radha Hughes CNP: acetaminophen (TYLENOL) 325 MG tablet, Take 2 (two) tablets (650 mg total) by mouth every 6 (six) hours as needed for pain (1-2 tablets) . apixaban (Eliquis) 5 mg Tab, Take 1 (one) tablet (5 mg total) by mouth 2 (two) times a day . ascorbic Acid (VITAMIN C) 500 mg CpER, Take 1 (one) capsule (500 mg total) by mouth every other day. aspirin 81 MG EC tablet, Take 1 tablet (81 mg total) by mouth daily. blood sugar diagnostic (RELION PRIME TEST STRIPS) strips, E11.65 Use as directed 4 times per day. bumetanide (BUMEX) 1 MG tablet, Take 0.5 (one-half) tablet (0.5 mg total) by mouth every other day . cilostazoL (PLETAL) 100 MG tablet, TAKE 1 TABLET BY MOUTH TWICE DAILY ON AN EMPTY STOMACH (Patient taking differently: 2 (two) times a day .) docusate sodium (COLACE) 100 MG capsule, Take 1 (one) capsule (100 mg total) by mouth 2 (two) timesa day as needed . escitalopram oxalate (LEXAPRO) 10 MG tablet, Take 1 (one) tablet (10 mg total) by mouth nightly . flash glucose sensor (FreeStyle Johnny 2 Sensor) Kit, 1 kit by Miscellaneous route every 14 (fourteen) days Use as directed to apply new sensor . insulin glargine (Lantus U-100 Insulin) 100 unit/mL injection, Inject 25 (twenty five) Units under the skin nightly . insulin lispro (AdmeLOG,HumaLOG) 100 unit/mL injection, Inject 6 (six) Units to 12 (twelve) Units under the skin 3 (three) times a day before meals . insulin syringe-needle U-100 0.3 mL 31 gauge x 5/16 Syrg, Use as directed QID . lancets [facility], Use to check BG QID SolusV2 brand Dx E11.65. lisinopriL (PRINIVIL,ZESTRIL) 5 MG tablet, Take 1 (one) tablet (5 mg total) by mouth daily . metoprolol succinate (TOPROL-XL) 25 MG 24 hr tablet, Take 1 (one) tablet (25 mg total) by mouth daily . pen needle, diabetic 31 gauge x 3/16 Ndle, Use as directed 4 times daily. . potassium chloride SA (K-DUR,KLOR-CON M10) 10 MEQ tablet, Take 1 (one) tablet (10 mEq total) by mouth every other day . psyllium (METAMUCIL) 0.52 gram capsule, Take 2 (two) capsules (1.04 g total) by mouth as needed . semaglutide (Ozempic) 1 mg/dose (4 mg/3 mL) Pen, Inject 0.75 mL (1 mg total) under the skin once a week . simvastatin (ZOCOR) 40 MG tablet, Take 1 (one) tablet (40 mg total) by mouth at bedtime . Review of Systems: Review of Systems Constitutional: Negative for fatigue and unexpected weight change. HENT: Positive for hearing loss. Negative for trouble swallowing. Eyes: Negative for visual disturbance. Respiratory: Negative for cough and shortness of breath. Cardiovascular: Negative for chest pain and leg swelling. Gastrointestinal: Negative for abdominal pain, constipation, diarrhea, nausea and vomiting. Endocrine: Negative for polydipsia, polyphagia and polyuria. Genitourinary: Negative for frequency and urgency. Musculoskeletal: Left hand possible lipoma or cyst. Skin: Negative for wound. Neurological: Positive for weakness (pain with walking) and numbness (in feet). Negative for headaches. Psychiatric/Behavioral: Negative for agitation and sleep disturbance. The patient is not nervous/anxious. The following portions of the patient's history were reviewed and updated as appropriate: allergies, current medications, past family history, past medical history, past social history, past surgicalhistory and problem list. Objective: BP 109/71 Pulse 99 Wt 101.3 kg (223 lb 6.4 oz) BMI 34.99 kg/m Wt Readings from Last 3 Encounters: 11/12/24 101.3 kg (223 lb 6.4 oz) 10/30/24 101.6 kg (223 lb 14.4 oz) 10/19/24 99.3 kg (219 lb) Physical Exam: General: alert, appears stated age and cooperative Eyes: conjunctivae/corneas clear. PERRL, EOM's intact. Neck: no adenopathy, supple, symmetrical, trachea midline. 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 Neuro: normal without focal findings, mental status, speech normal, alert and oriented x3 and [facility]ER[facility] Laboratory Review: BP 109/71 Pulse 99 Wt 101.3 kg (223 lb 6.4 oz) BMI 34.99 kg/m Date: 11/09/24: *labs reviewed 11/12/24 Hgb A1c: 8.3% Creat: 0.99; eGFR: 77 AST: 17; ALT: 10 K: 4.8 CBC: WBC:8.1; Hgb: 12.4; Hct: 38.0; Plt: 185 Tchol: 118; Tri ; HDL: 57 ; LDL: 50 TSH: 1.31 ; FreeT4: 1.1 05/11/24 Hgb A1c: 7.5% Creat: 1.07; eGFR: 71 AST: 20; ALT: 20 K: 4.9 TSH: 1.64 ; FreeT4: 1.1 12/02/23 Hgb A1c: 7.3% Creat: 1.01; eGFR: 76 AST: 28; ALT: 17 K: 4.5 CBC: WBC:5.58; Hgb: 13; Hct: 40.4; Plt: 152 Tchol: 110; Tri ; HDL: 55 ; LDL: 47 TSH: 1.92 ; FreeT4: 1.1 06/01/23 Hgb A1c: 9.2% Creat: 1.26; eGFR: 58 AST: 19; ALT: 21 K: 4.9 Tchol: 126; Tri ; HDL: 60 ; LDL: 55 11/29/22 Hgb A1c: 8.4% Creat: 0.94; eGFR: 83 AST: 25; ALT: 27 K: 4.8 Tchol: 107; Tri ; HDL: 50 ; LDL: 46 TSH: 1.58 ; FreeT4: 1.0 Microalbumin/creatinine Ratio: 22 02/17/22 Hgb A1c: 7.8% Creat: 0.97; eGFR: 80 AST: 24; ALT: 30 K: 4.9 CBC: WBC:6.34; Hgb: 12.7; Hct: 39.3; Plt: 157 10/08/21 Hgb A1c: 10.6% Creat: 1.14; eGFR: 62 AST: 24; ALT: 20 K: 4.8 Tchol: 130; Tri ; HDL: 47 ; LDL: 67 TSH: 1.99 ; FreeT4: 1.1 06/12/21 Hgb A1c: 9.4% Creat: 1.22; eGFR: 57 AST: 17; ALT: 23 K: 4.7 TSH: 1.85 ; FreeT4: 1.1 02/25/21 Hgb A1c: 10.1% Creat: 0.91; eGFR: 82 AST: 21; ALT: 21 K: 4.6 TSH: 1.54 ; FreeT4: 1.2 12/17/20 Hgb A1c: 12.5% Creat: 1.18; eGFR: 60 AST: 13; ALT: 20 K: 4.6 CBC: WBC:6.30; Hgb: 13.4; Hct: 41.1; Plt: 175 Tchol: 124; Tri ; HDL: 56 ; LDL: 56 TSH: 2.05 Microalbumin/creatinine Ratio: 41 05/05/20 Hgb A1c: 8.9% Creat: 0.94; eGFR: >60 K: 4.0 TSH: 2.39 ; FreeT4: 1.10 12/27/19 Hgb A1c: 9.0% Creat: 0.98; eGFR: >60 AST: 14; ALT: 21 K: 4.6 CBC: WBC:7.0; Hgb: 14.0; Hct: 42.7; Plt: 201 Tchol: 133; Tri ; HDL: 52 ; LDL: 70 TSH: 2.72 ; FreeT4: 1.05 02/20/19 Hgb A1c: 8.8% Creat: 1.0; eGFR: >60 AST: 22; ALT: 25 K: 4.1 10/23/2018 Hemoglobin A1c 9.7% Creatinine 1.00, EGFR >60, K4.2 AST 22, ALT 31 Microalbumin/creatinine ratio: 12 TSH 2.03, free T4 0.87 T cholesterol 118, TG 49, HDL 51, LDL 57 CBC: H/H 14.3/42.6, WBC 5.2, platelets 180,000 06/20/18 Hgb A1c: 6.3% Creat: 0.9; eGFR: >60 AST: 25; ALT: 17 K: 4.3 Assessment/Plan: Dx: 1. Type 2 diabetes mellitus with retinopathy of both eyes, with long-term current use of insulin, macular edema presence unspecified, unspecified retinopathy severity (HCC) Hemoglobin A1c Comprehensive Metabolic Panel 2. Hypercholesterolemia 3. Primary hypertension Type 2 diabetes, under fair control Currently taking: No oral hypoglycemic medications Humalog insulin: 7 units at breakfast; 7 units at lunch; 8 units at supper Lantus insulin: 23 units at bedtime Ozempic 1.0 mg weekly. Current Hemoglobin A1C= Lab Results Component Value Date HGBA1C 7.3 (H) 12/02/2023 HGBA1C 9.2 (H) 06/01/2023 HGBA1C 8.4 (H) 11/29/2022 Weight trend: has increased 4 lbs. Current diet: carb controlled, avoiding concentrated sugars Doing much better. Current exercise: none Current monitoring regimen: home blood tests - 4 times daily utilizing freestyle johnny CGM. Download reviewed 11/12/24 Home blood sugar record: NOTES: Hgb A1c increased to 8.3%. Patient currently on QID insulin. PLAN: See below Retinopathy: Positive: Background diabetic retinopathy and Laser Treatment Exam within last 12 months: yes Date: Store Administrative Assistant/Lang Interpreter: Other Ophthalmologic Conditions: None known Nephropathy: Negative Creat: 0.99 12/02 Lab Results Component Value Date CREATININE 0.99 11/09/2024 EXTEGFR 77 11/09/2024 EXTEGFRAFAME >60 12/27/2019 Microlbumin/creat ratio: No results found for: EXTMICROALBC Is patient on PATRICIA inhibitor or angiotensin II receptor julia? yes Lisinopril Peripheral Neuropathy: Positive Reports bilateral numbness and tingling in feet Autonomic Neuropathy: Negative Hypoglycemia unawareness. Senses low BG at <100 mg/dl. Other: Hyperlipidemia: Positive Currently taking: simvastatin (Zocor). LFT's WNL Lab Results Component Value Date AST 28 12/02/2023 ALT 17 12/02/2023 Lab Results Component Value Date EXTCHOL 118 11/09/2024 EXTTRIG 38 11/09/2024 EXTHDL 57 11/09/2024 EXTLDLCALC 70 12/27/2019 Hypertension: Positive. Currently taking: bumetanide (Bumex), lisinopril (Prinivil) and metoprolol (Lopressor, Toprol) BP: 109/71 Cardiac: Positive Atrial fibrillation. On eliquis. Experiencing chest pain No . 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 Healy Vascular: Following with Dr. Bill. History of PVD aortic aneurysm Feet: Last foot exam: 06/[address] Arroyo. Follows with Podiatry: Yes Professor Of Theater: Dr. Arroyo History of foot ulceration: Yes, small lesion to the right foot distal to 5th toe. 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 Podiatry notes elevated limb loss risk score he does qualify for diabetic shoes. . Thyroid: Lab Results Component Value Date TSH 1.92 12/02/2023 Negative Other: from colon cancer March 2017. Had COVID-19 vaccine in [place]. Plan: 1. Rx changes: Adjust medications as below Humalog insulin: 7 units at breakfast; 7 units at lunch; 8 units at supper Lantus insulin: 23 units at bedtime Use as directed with Humalog insulin before meals and at bedtime. 151-200: 1 units fast acting insulin 201-250: 2 units fast acting insulin 251-300: 3 units fast acting insulin 301-350: 4 units fast acting insulin 351-400: 5 units fast acting insulin above 400: 6 units fast acting insulin Ozempic 1 mg weekly. Increase to 2 mg when 1 mg supply runs out. Mr. Arnold would benefit from continued use of [employer] continuous glucose monitoring system. Patient has had Type 2 diabetes for 21 years. Complications include diabetic neuropathy and CAD Patient is currently managed with: insulin injections Patient has been checking their blood sugar 4 times per day Patient is positive for a history of reoccurring hypoglycemia <50. Patient is predisposed to hypoglycemia, and has had 2 hypoglycemic episodes in the last 7 days. Patient's most recent Hgb A1c was 8.3% on 12/02. . Patient's HGb is <6.0% or >8.5% Patient currently takes insulin injections 4 times daily. Patient is negative for a history of hypoglycemic unawareness Patient has inadequate control despite compliance with multiple alterations in insulin doses/medication regimen. 2. Education: Reviewed ABCs of diabetes management (respective goals in parentheses): A1C (7.0-8.0), blood pressure (<130/80), and cholesterol (LDL <100). 3. Compliance at present is estimated to be fair. Efforts to improve compliance (if necessary) willbe directed at increased exercise. Also, will be directed at dietary modifications: Limit starches,carbohydrates and concentrated sugar sources 4. Follow up: 6 months 5. Record blood sugar readings as instructed. Call if BG consistently <70 or >250. [phone] Patient has been checking blood glucoses 4 times daily for the past 90 days. Patient needs to continue checking blood glucoses 4 times daily. Blood glucose readings are used to adjust medication or insulin doses for meals, monitor dietary compliance, and adjust for high or low blood glucoses by patient on a daily basis. Blood glucose readings are reviewed at office visits for adjustment in medication regimen and assistance with dietary management, and other self- management issues including exercise, etc. Prognosis: Good. Duration of need for diabetes testing equipment: Permanent #150 strips/month prescribed. 6. Bring blood sugar meter to follow up appointment. Orders Placed This Encounter Procedures Hemoglobin A1c Comprehensive Metabolic Panel GA MANAGER FIELD (MONITOR); EXTERNAL, FOR USE WITH NONDURABLE MEDICAL EQUIPMENT INTERSTITIAL CONTINUOUS GLUCOSE MONITORING SYSTEM (CGM) documented in this [id number] NoteOPG [address] [facility] [address] [facility] [id number] Chief Complaint Patient presents with Left Hand - Other Andrew Arnold, 79-year-old male, presents to the office today with a lump on the top of his left hand. He states that this started approximately 6 months ago without any known injury. Some days it will be larger other days it will be smaller. Most recently it has become larger and is not really going away. It starting to get in the way. He reports he bumps it much more frequently which is becoming uncomfortable. Denies any numbness or tingling into the hand or the fingers. The patient's past medical history, surgical history, social history, family history, medications and allergies were reviewed with the patient today and are available in the chart for further review. Allergies[1] Current Medications[2] Past Medical History: Diagnosis Date Aortic valve calcification Arrhythmia Atrial fibrillation (HCC) after CABG CAD (coronary artery disease) 3 Vessel Claudication Left lower extremity symptoms Fractures Hypertension Mitral valve annular calcification Myocardial infarction (HCC) 08/02/2015 Non-ST Obesity Oral cancer (HCC) Pilonidal cyst Subdural hematoma (HCC) 2008 minor trauma while on Plavix at the time. Tendonitis of wrist, right TIA (transient ischemic attack) 2007 was put on plavix then had subdural one year later. Vitreous hemorrhage of left eye (HCC) Past Surgical History: Procedure Laterality Date AORTIC VALVE REPLACEMENT CARDIAC CATHETERIZATION CARDIAC CATHETERIZATION N/A 12/25/2021 Procedure: Coronary Angiogram; Surgeon: Adilson Stone MD; Location: [facility]; Service: Cardiovascular CARDIAC CATHETERIZATION N/A 12/25/2021 Procedure: Left Heart Cath w/Grafts; Surgeon: Adilson Stone MD; Location: [facility]; Service: Cardiovascular CARDIAC VALVE REPLACEMENT CORONARY ARTERY BYPASS GRAFT 08/13/2015 3 Vessel/YEUNG to the LAD/SVG to obtuse marginal/SVG to a PDA MOUTH SURGERY 2007 Oral cancer TENDON RELEASE DEQUERVAINS Right 12/26/2018 Procedure: TENDON RELEASE DE QUERVAINS RIGHT; Surgeon: Jenaro Oquendo MD; Location: Main OR; Service: Orthopedic Social History[3] ROS: Review of Systems Constitutional: Negative for activity change and fatigue. HENT: Negative for congestion, hearing loss and trouble swallowing. Eyes: Negative for visual disturbance. Respiratory: Negative for chest tightness and shortness of breath. Cardiovascular: Negative for chest pain and palpitations. Gastrointestinal: Negative for abdominal pain, diarrhea, nausea and vomiting. Endocrine: Negative for polydipsia, polyphagia and polyuria. Genitourinary: Negative for decreased urine volume, difficulty urinating and hematuria. Musculoskeletal: Positive for joint swelling. Negative for arthralgias and myalgias. Bump on top of left hand Skin: Negative for color change, rash and wound. Allergic/Immunologic: Negative for immunocompromised state. Neurological: Negative for dizziness, weakness, light-headedness and numbness. Hematological: Does not bruise/bleed easily. Psychiatric/Behavioral: Negative for confusion and sleep disturbance. The patient is not nervous/anxious. PE: Physical Exam Constitutional: Appearance: He is well-developed. HENT: Head: Normocephalic. Eyes: Pupils: Pupils are equal, round, and reactive to light. Cardiovascular: Rate and Rhythm: Normal rate and regular rhythm. Pulmonary: Effort: Pulmonary effort is normal. Breath sounds: Normal breath sounds. Abdominal: General: Bowel sounds are normal. Palpations: Abdomen is soft. Musculoskeletal: General: Swelling, tenderness and deformity present. Normal range of motion. Left hand: Swelling, deformity and tenderness present. Normal range of motion. Normal capillary refill. Normal pulse. Hands: Cervical back: Normal range of motion and neck supple. Skin: General: Skin is warm and dry. Neurological: Mental Status: He is alert and oriented to person, place, and time. Imaging: L Hand: No acute fracture or dislocation. Degenerative change in the 1st CMC and intercarpal joints. Assessment/Plan: After examination and reviewing the patient x-ray images we discussed different treatment options for the hand. I did offer him to drain and in jacked the cyst on top of that left hand which she gladly excepted. I did this without complications and he tolerated this well. We were able to aspirate approximately 6.5 cc of blood-tinged gelatinous material. 40 mg of Kenalog in addition to 1 cc of lidocaine was then injected. If in 2 weeks, this has not resolved, I did explain that we would most likely need a MRI for further diagnostic evaluation. He will return to the office as needed. [1] Allergies Allergen Reactions Pioglitazone GI Intolerance (more content not included)...[facility]04-30-2025 History of Present illness Narrative* Amanda Johnson, [facility] - 11/07/2024 9:15 PM EDT Images from the original note were not included. [facility] [address] [facility] [address] [facility] [id number] Chief Complaint Patient presents with Left Hand - Other Andrew Arnold, 79-year-old male, presents to the office today with a lump on the top of his left hand. He states that this started approximately 6 months ago without any known injury. Some days it will be larger other days it will be smaller. Most recently it has become larger and is not really going away. It starting to get in the way. He reports he bumps it much more frequently which is becoming uncomfortable. Denies any numbness or tingling into the hand or the fingers. The patient's past medical history, surgical history, social history, family history, medications and allergies were reviewed with the patient today and are available in the chart for further review. Allergies[1] Current Medications[2] Past Medical History: Diagnosis Date Aortic valve calcification Arrhythmia Atrial fibrillation (HCC) after CABG CAD (coronary artery disease) 3 Vessel Claudication Left lower extremity symptoms Fractures Hypertension Mitral valve annular calcification Myocardial infarction (HCC) 08/02/2015 Non-ST Obesity Oral cancer (HCC) Pilonidal cyst Subdural hematoma (HCC) 2008 minor trauma while on Plavix at the time. Tendonitis of wrist, right TIA (transient ischemic attack) 2007 was put on plavix then had subdural one year later. Vitreous hemorrhage of left eye (HCC) Past Surgical History: Procedure Laterality Date AORTIC VALVE REPLACEMENT CARDIAC CATHETERIZATION CARDIAC CATHETERIZATION N/A 12/25/2021 Procedure: Coronary Angiogram; Surgeon: Adilson Stone MD; Location: [facility]; Service: Cardiovascular CARDIAC CATHETERIZATION N/A 12/25/2021 Procedure: Left Heart Cath w/Grafts; Surgeon: Adilson Stone MD; Location: [facility]; Service: Cardiovascular CARDIAC VALVE REPLACEMENT CORONARY ARTERY BYPASS GRAFT 08/13/2015 3 Vessel/YEUNG to the LAD/SVG to obtuse marginal/SVG to a PDA MOUTH SURGERY 2007 Oral cancer TENDON RELEASE DEQUERVAINS Right 12/26/2018 Procedure: TENDON RELEASE DE QUERVAINS RIGHT; Surgeon: Jenaro Oquendo MD; Location: Main OR; Service: Orthopedic Social History[3] ROS: Review of Systems Constitutional: Negative for activity change and fatigue. HENT: Negative for congestion, hearing loss and trouble swallowing. Eyes: Negative for visual disturbance. Respiratory: Negative for chest tightness and shortness of breath. Cardiovascular: Negative for chest pain and palpitations. Gastrointestinal: Negative for abdominal pain, diarrhea, nausea and vomiting. Endocrine: Negative for polydipsia, polyphagia and polyuria. Genitourinary: Negative for decreased urine volume, difficulty urinating and hematuria. Musculoskeletal: Positive for joint swelling. Negative for arthralgias and myalgias. Bump on top of left hand Skin: Negative for color change, rash and wound. Allergic/Immunologic: Negative for immunocompromised state. Neurological: Negative for dizziness, weakness, light-headedness and numbness. Hematological: Does not bruise/bleed easily. Psychiatric/Behavioral: Negative for confusion and sleep disturbance. The patient is not nervous/anxious. PE: Physical Exam Constitutional: Appearance: He is well-developed. HENT: Head: Normocephalic. Eyes: Pupils: Pupils are equal, round, and reactive to light. Cardiovascular: Rate and Rhythm: Normal rate and regular rhythm. Pulmonary: Effort: Pulmonary effort is normal. Breath sounds: Normal breath sounds. Abdominal: General: Bowel sounds are normal. Palpations: Abdomen is soft. Musculoskeletal: General: Swelling, tenderness and deformity present. Normal range of motion. Left hand: Swelling, deformity and tenderness present. Normal range of motion. Normal capillary refill. Normal pulse. Hands: Cervical back: Normal range of motion and neck supple. Skin: General: Skin is warm and dry. Neurological: Mental Status: He is alert and oriented to person, place, and time. Imaging: L Hand: No acute fracture or dislocation. Degenerative change in the 1st CMC and intercarpal joints. Assessment/Plan: After examination and reviewing the patient x-ray images we discussed different treatment options for the hand. I did offer him to drain and in jacked the cyst on top of that left hand which she gladly excepted. I did this without complications and he tolerated this well. We were able to aspirate approximately 6.5 cc of blood-tinged gelatinous material. 40 mg of Kenalog in addition to 1 cc of lidocaine was then injected. If in 2 weeks, this has not resolved, I did explain that we would most likely need a MRI for further diagnostic evaluation. He will return to the office as needed. [1] Allergies Allergen Reactions Pioglitazone GI Intolerance [2] Current Outpatient Medications: acetaminophen (TYLENOL) 325 MG tablet, Take 2 (two) tablets (650 mg total) by mouth every 6 (six) hours as needed for pain (1-2 tablets) ., Disp: , Rfl: apixaban (Eliquis) 5 mg Tab, Take 1 (one) tablet (5 mg total) by mouth 2 (two) times a day ., Disp:180 tablet, Rfl: 3 ascorbic Acid (VITAMIN C) 500 mg CpER, Take 1 (one) capsule (500 mg total) by mouth every other day., Disp: , Rfl: aspirin 81 MG EC tablet, Take 1 tablet (81 mg total) by mouth daily., Disp: 90 tablet, Rfl: 3 blood sugar diagnostic (RELION PRIME TEST STRIPS) strips, E11.65 Use as directed 4 times per day., Disp: 150 strip, Rfl: 11 bumetanide (BUMEX) 1 MG tablet, Take 0.5 (one-half) tablet (0.5 mg total) by mouth every other day ., Disp: 23 tablet, Rfl: 1 cilostazoL (PLETAL) 100 MG tablet, TAKE 1 TABLET BY MOUTH TWICE DAILY ON AN EMPTY STOMACH, Disp: 180 tablet, Rfl: 0 docusate sodium (COLACE) 100 MG capsule, Take 1 (one) capsule (100 mg total) by mouth 2 (two) timesa day as needed ., Disp: , Rfl: escitalopram oxalate (LEXAPRO) 10 MG tablet, Take 1 (one) tablet (10 mg total) by mouth nightly ., Disp: 30 tablet, Rfl: 11 flash glucose sensor (FreeStyle Johnny 2 Sensor) Kit, 1 kit by Miscellaneous route every 14 (fourteen) days Use as directed to apply new sensor ., Disp: 2 kit, Rfl: 11 insulin glargine (Lantus U-100 Insulin) 100 unit/mL injection, Inject 25 (twenty five) Units under the skin nightly ., Disp: 10 mL, Rfl: 11 insulin lispro (AdmeLOG,HumaLOG) 100 unit/mL injection, Inject 6 (six) Units to 12 (twelve) Units under the skin 3 (three) times a day before meals ., Disp: 20 mL, Rfl: 11 insulin syringe-needle U-100 0.3 mL 31 gauge x 5/16 Syrg, Use as directed QID ., Disp: 400 each, Rfl: 3 lancets Misc, Use to check BG QID SolusV2 brand Dx E11.65., Disp: 200 each, Rfl: 11 lisinopriL (PRINIVIL,ZESTRIL) 5 MG tablet, Take 1 (one) tablet (5 mg total) by mouth daily ., Disp:90 tablet, Rfl: 3 metoprolol succinate (TOPROL-XL) 25 MG 24 hr tablet, Take 1 (one) tablet (25 mg total) by mouth daily ., Disp: 90 tablet, Rfl: 1 pen needle, diabetic 31 gauge x 3/16 Ndle, Use as directed 4 times daily. ., Disp: 400 each, Rfl: 3 potassium chloride SA (K-DUR,KLOR-CON M10) 10 MEQ tablet, Take 1 (one) tablet (10 mEq total) by mouth every other day ., Disp: 45 tablet, Rfl: 3 psyllium (METAMUCIL) 0.52 gram capsule, Take 2 (two) capsules (1.04 g total) by mouth as needed ., Disp: , Rfl: semaglutide (Ozempic) 1 mg/dose (4 mg/3 mL) Pen, Inject 0.75 mL (1 mg total) under the skin once a week ., Disp: 9 mL, Rfl: 3 simvastatin (ZOCOR) 40 MG tablet, Take 1 (one) tablet (40 mg total) by mouth at bedtime ., Disp: 90tablet, Rfl: 1 [3] Social History Socioeconomic History Marital status: Tobacco Use Smoking status: Former Current packs/day: 0.00 Average packs/day: 3.0 packs/day for 12.0 years (36.0 ttl pk-yrs) Types: Cigarettes Start date: 08/27/1961 Quit date: 08/27/1973 Years since quittin.2 Smokeless tobacco: Former Types: Chew Vaping Use Vaping status: Never Used Substance and Sexual Activity Alcohol use: Not Currently Alcohol/week: 0.0 standard drinks of alcohol Drug use: No Sexual activity: Not Currently Partners: Female Social History Narrative Living with partner, 2 kids and one grand-duaghter Retired [place] department of [employer] in 2005 Social Drivers of Health Financial Resource Strain: Low Risk (10/30/2024) Overall Financial Resource Strain (CARDIA) Difficulty of Paying Living Expenses: Not hard at all Food Insecurity: No Food Insecurity (10/30/2024) Hunger Vital Sign Worried About Running Out of Food in the Last Year: Never true Ran Out of Food in the Last Year: Never true Transportation Needs: No Transportation Needs (10/30/2024) PRAPARE - Transportation Lack of Transportation (Medical): No Lack of Transportation (Non-Medical): No Social Connections: Unknown (10/30/2024) Social Connection and Isolation Panel [NHANES] Frequency of Communication with Friends and Family: Once a week Housing Stability: Unknown (10/30/2024) Housing Stability Vital Sign Unable to Pay for Housing in the Last Year: No Homeless in the Last Year: No documented in this [id number] NoteSubjective Patient ID: Andrew Arnold is a 79 y.o. male. Chief Complaint Patient presents with Hand Pain Left hand pain and bump x 6 months Hand Pain Andrew is a pleasant 79 year old male that comes to the office today for left hand pain. States he has bump/swelling to hand for past 6 months. States he is experiencing pain with ROM and activities such as driving, and doing dishes. Denies any injuries to hand. The following portions of the patient's history were reviewed and updated as appropriate: allergies, current medications, past family history, past medical history, past social history, past surgical history, and problem list. Past Medical History: Diagnosis Date Aortic valve calcification Arrhythmia Atrial fibrillation (HCC) after CABG CAD (coronary artery disease) 3 Vessel Claudication Left lower extremity symptoms Fractures Hypertension Mitral valve annular calcification Myocardial infarction (HCC) 08/02/2015 Non-ST Obesity Oral cancer (HCC) Pilonidal cyst Subdural hematoma (HCC) 2008 minor trauma while on Plavix at the time. Tendonitis of wrist, right TIA (transient ischemic attack) 2007 was put on plavix then had subdural one year later. Vitreous hemorrhage of left eye (HCC) Past Surgical History: Procedure Laterality Date AORTIC VALVE REPLACEMENT CARDIAC CATHETERIZATION CARDIAC CATHETERIZATION N/A 12/25/2021 Procedure: Coronary Angiogram; Surgeon: Adilson Stone MD; Location: [facility]; Service: Cardiovascular CARDIAC CATHETERIZATION N/A 12/25/2021 Procedure: Left Heart Cath w/Grafts; Surgeon: Adilson Stone MD; [facility]: [facility]; Service: Cardiovascular CARDIAC VALVE REPLACEMENT CORONARY ARTERY BYPASS GRAFT 08/13/2015 3 Vessel/YEUNG to the LAD/SVG to obtuse marginal/SVG to a PDA MOUTH SURGERY 2007 Oral cancer TENDON RELEASE DEQUERVAINS Right 12/26/2018 Procedure: TENDON RELEASE DE QUERVAINS RIGHT; Surgeon: Jenaro Oquendo MD; Location: [facility] OR; Service: Orthopedic Social History[1] Family History Problem Relation Age of Onset COPD Mother Diabetes Father Stroke Paternal Grandmother Allergies[2] Outpatient Medications as of 10/30/2024 Medication Sig acetaminophen (TYLENOL) 325 MG tablet Take 2 (two) tablets (650 mg total) by mouth every 6 (six) hours as needed for pain (1-2 tablets) . apixaban (Eliquis) 5 mg Tab Take 1 (one) tablet (5 mg total) by mouth 2 (two) times a day . ascorbic Acid (VITAMIN C) 500 mg CpER Take 1 (one) capsule (500 mg total) by mouth every other day . aspirin 81 MG EC tablet Take 1 tablet (81 mg total) by mouth daily. blood sugar diagnostic (RELION PRIME TEST STRIPS) strips E11.65 Use as directed 4 times per day. bumetanide (BUMEX) 1 MG tablet Take 0.5 (one-half) tablet (0.5 mg total) by mouth every other day . cilostazoL (PLETAL) 100 MG tablet TAKE 1 TABLET BY MOUTH TWICE DAILY ON AN EMPTY STOMACH docusate sodium (COLACE) 100 MG capsule Take 1 (one) capsule (100 mg total) by mouth 2 (two) times a day as needed . escitalopram oxalate (LEXAPRO) 10 MG tablet Take 1 (one) tablet (10 mg total) by mouth nightly . flash glucose sensor (FreeStyle Johnny 2 Sensor) Kit 1 kit by Miscellaneous route every 14 (fourteen) days Use as directed to apply new sensor . insulin glargine (Lantus U-100 Insulin) 100 unit/mL injection Inject 25 (twenty five) Units under the skin nightly . insulin lispro (AdmeLOG,HumaLOG) 100 unit/mL injection Inject 6 (six) Units to 12 (twelve) Units under the skin 3 (three) times a day before meals . insulin syringe-needle U-100 0.3 mL 31 gauge x 5/16 Syrg Use as directed QID . lancets Misc Use to check BG QID SolusV2 brand Dx E11.65. lisinopriL (PRINIVIL,ZESTRIL) 5 MG tablet Take 1 (one) tablet (5 mg total) by mouth daily . metoprolol succinate (TOPROL-XL) 25 MG 24 hr tablet Take 1 (one) tablet (25 mg total) by mouth daily . pen needle, diabetic 31 gauge x 3/16 Ndle Use as directed 4 times daily. . potassium chloride SA (K-DUR,KLOR-CON M10) 10 MEQ tablet Take 1 (one) tablet (10 mEq total) by mouth every other day . psyllium (METAMUCIL) 0.52 gram capsule Take 2 (two) capsules (1.04 g total) by mouth as needed . semaglutide (Ozempic) 1 mg/dose (4 mg/3 mL) Pen Inject 0.75 mL (1 mg total) under the skin once a week . simvastatin (ZOCOR) 40 MG tablet Take 1 (one) tablet (40 mg total) by mouth at bedtime . Review of Systems Objective BP 128/72 (BP Location: Left arm, Patient Position: Sitting, BP Cuff Size: Adult) Pulse 85 Temp 97.8 degrees F (36.6 degrees C) Resp 16 Ht 5' 7 Wt 101.6 kg (223 lb 14.4 oz) SpO2 96% BMI 35.07 kg/m Physical Exam Pulmonary: Effort: Pulmonary effort is normal. No respiratory distress. Skin: General: Skin is warm and dry. Comments: Cyst to left hand on radial side, tenderness upon palpation, and with ROM Pulses intact Neurological: Mental Status: He is (more content not included)...[facility] 10-30-2024 History of Present illness Narrative* Liliya Fine, JOHN - 10/30/2024 8:55 AM EDT Images from the original note were not included. Subjective Patient ID: Andrew Arnold is a 79 y.o. male. Chief Complaint Patient presents with Hand Pain Left hand pain and bump x 6 months Hand Pain Andrew is a pleasant 79 year old male that comes to the office today for left hand pain. States he has bump/swelling to hand for past 6 months. States he is experiencing pain with ROM and activities such as driving, and doing dishes. Denies any injuries to hand. The following portions of the patient's history were reviewed and updated as appropriate: allergies, current medications, past family history, past medical history, past social history, past surgicalhistory, and problem list. Past Medical History: Diagnosis Date Aortic valve calcification Arrhythmia Atrial fibrillation (HCC) after CABG CAD (coronary artery disease) 3 Vessel Claudication Left lower extremity symptoms Fractures Hypertension Mitral valve annular calcification Myocardial infarction (HCC) 08/02/2015 Non-ST Obesity Oral cancer (HCC) Pilonidal cyst Subdural hematoma (HCC) 2008 minor trauma while on Plavix at the time. Tendonitis of wrist, right TIA (transient ischemic attack) 2007 was put on plavix then had subdural one year later. Vitreous hemorrhage of left eye (HCC) Past Surgical History: Procedure Laterality Date AORTIC VALVE REPLACEMENT CARDIAC CATHETERIZATION CARDIAC CATHETERIZATION N/A 12/25/2021 Procedure: Coronary Angiogram; Surgeon: Adilson Stone MD; [facility]; Service: Cardiovascular CARDIAC CATHETERIZATION N/A 12/25/2021 Procedure: Left Heart Cath w/Grafts; Surgeon: Adilson Stone MD; Location: [facility]; Service: Cardiovascular CARDIAC VALVE REPLACEMENT CORONARY ARTERY BYPASS GRAFT 08/13/2015 3 Vessel/YEUNG to the LAD/SVG to obtuse marginal/SVG to a PDA MOUTH SURGERY 2007 Oral cancer TENDON RELEASE DEQUERVAINS Right 12/26/2018 Procedure: TENDON RELEASE DE QUERVAINS RIGHT; Surgeon: Jenaro Oquendo MD; Location: Main OR; Service: Orthopedic Social History[1] Family History Problem Relation Age of Onset COPD Mother Diabetes Father Stroke Paternal Grandmother Allergies[2] Outpatient Medications as of 10/30/2024 Medication Sig acetaminophen (TYLENOL) 325 MG tablet Take 2 (two) tablets (650 mg total) by mouth every 6 (six) hours as needed for pain (1-2 tablets) . apixaban (Eliquis) 5 mg Tab Take 1 (one) tablet (5 mg total) by mouth 2 (two) times a day . ascorbic Acid (VITAMIN C) 500 mg CpER Take 1 (one) capsule (500 mg total) by mouth every other day . aspirin 81 MG EC tablet Take 1 tablet (81 mg total) by mouth daily. blood sugar diagnostic (RELION PRIME TEST STRIPS) strips E11.65 Use as directed 4 times per day. bumetanide (BUMEX) 1 MG tablet Take 0.5 (one-half) tablet (0.5 mg total) by mouth every other day . cilostazoL (PLETAL) 100 MG tablet TAKE 1 TABLET BY MOUTH TWICE DAILY ON AN EMPTY STOMACH docusate sodium (COLACE) 100 MG capsule Take 1 (one) capsule (100 mg total) by mouth 2 (two) times a day as needed . escitalopram oxalate (LEXAPRO) 10 MG tablet Take 1 (one) tablet (10 mg total) by mouth nightly . flash glucose sensor (FreeStyle Johnny 2 Sensor) Kit 1 kit by Miscellaneous route every 14 (fourteen) days Use as directed to apply new sensor . insulin glargine (Lantus U-100 Insulin) 100 unit/mL injection Inject 25 (twenty five) Units under the skin nightly . insulin lispro (AdmeLOG,HumaLOG) 100 unit/mL injection Inject 6 (six) Units to 12 (twelve) Units under the skin 3 (three) times a day before meals . insulin syringe-needle U-100 0.3 mL 31 gauge x 5/16 Syrg Use as directed QID . lancets Misc Use to check BG QID SolusV2 brand Dx E11.65. lisinopriL (PRINIVIL,ZESTRIL) 5 MG tablet Take 1 (one) tablet (5 mg total) by mouth daily . metoprolol succinate (TOPROL-XL) 25 MG 24 hr tablet Take 1 (one) tablet (25 mg total) by mouth daily . pen needle, diabetic 31 gauge x 3/16 Ndle Use as directed 4 times daily. . potassium chloride SA (K-DUR,KLOR-CON M10) 10 MEQ tablet Take 1 (one) tablet (10 mEq total) by mouth every other day . psyllium (METAMUCIL) 0.52 gram capsule Take 2 (two) capsules (1.04 g total) by mouth as needed . semaglutide (Ozempic) 1 mg/dose (4 mg/3 mL) Pen Inject 0.75 mL (1 mg total) under the skin once a week . simvastatin (ZOCOR) 40 MG tablet Take 1 (one) tablet (40 mg total) by mouth at bedtime . Review of Systems Objective BP 128/72 (BP Location: Left arm, Patient Position: Sitting, BP Cuff Size: Adult) Pulse 85 Temp97.8 F (36.6 C) Resp 16 Ht 5' 7 Wt 101.6 kg (223 lb 14.4 oz) SpO2 96% BMI 35.07 kg/m Physical Exam Pulmonary: Effort: Pulmonary effort is normal. No respiratory distress. Skin: General: Skin is warm and dry. Comments: Cyst to left hand on radial side, tenderness upon palpation, and with ROM Pulses intact Neurological: Mental Status: He is alert and oriented to person, place, and time. Psychiatric: Mood and Affect: Mood normal. Behavior: Behavior normal. Thought Content: Thought content normal. Judgment: Judgment normal. Assessment/Plan: Diagnoses and all orders for this visit: Ganglion cyst - Ambulatory referral to Orthopedic Surgery; Future Discussed with patient likely believe area is consistent with ganglion cysts, As this area is causing pain for him will send referral to orthopedics for possible removal. Patient verbalized understanding agreement with plan of care. Electronically signed by FESTUS Hubbard 9:19 AM [1] Social History Tobacco Use Smoking status: Former Current packs/day: 0.00 Average packs/day: 3.0 packs/day for 12.0 years (36.0 ttl pk-yrs) Types: Cigarettes Start date: 08/27/1961 Quit date: 08/27/1973 Years since quittin.2 Smokeless tobacco: Former Types: Chew Vaping Use Vaping status: Never Used Substance Use Topics Alcohol use: Not Currently Alcohol/week: 0.0 standard drinks of alcohol Drug use: No [2] Allergies Allergen Reactions Pioglitazone GI Intolerance documented in this [id number] Evaluation + Plan note* Assessment & Plan Note - Preston Healy MD - 10/19/2024 11:02 AM EDT Associated Problem(s): S/P AVR Reviewed. [id number] Miscellaneous Notes* Assessment & Plan Note - Preston Healy MD - 10/19/2024 11:02 AM EDTAssociated Problem(s): S/P AVR Reviewed. * Assessment & Plan Note - Preston Healy MD - 10/19/2024 9:20 AM EDT Associated Problem(s): S/P CABG (coronary artery bypass graft) Reviewed echo 03/2023 reviewed. * Assessment & Plan Note - Preston Healy MD - 10/19/2024 9:20 AM EDT Associated Problem(s): A-fib (HCC) Tolerating rate controlled. No heart failure symptoms. * Assessment & Plan Note - Preston Healy MD - 10/19/2024 9:19 AM EDT Associated Problem(s): Hypertension Systolic 106 occasional lightheadedness we will cut his lisinopril back to 5 mg daily. BP better onOzempic. * Assessment & Plan Note - Preston Healy MD - 10/19/2024 9:19 AM EDT Associated Problem(s): PAD (peripheral artery disease) (HCC) Stable documented in this [id number] Evaluation + Plan note* Assessment & Plan Note - Preston Healy MD - 10/19/2024 9:20 AM EDT Associated Problem(s): S/P CABG (coronary artery bypass graft) Reviewed echo 03/2023 reviewed. [id number] Evaluation + Plan note* Assessment & Plan Note - Preston Healy MD - 10/19/2024 9:20 AM EDTAssociated Problem(s): A-fib (HCC) Tolerating rate controlled. No heart failure symptoms. [id number] Evaluation + Plan note* Assessment & Plan Note - Preston Healy MD - 10/19/2024 9:19 AM EDTAssociated Problem(s): Hypertension Systolic 106 occasional lightheadedness we will cut his lisinopril back to 5 mg daily. BP better onOzempic. [id number] Evaluation + Plan note* Assessment & Plan Note - Preston Healy MD - 10/19/2024 9:19 AM EDTAssociated Problem(s): PAD (peripheral artery disease) ([facility]) Stable [facility] [id number] [facility] [address] [facility] [id number] Subjective: Andrew Arnold is a 79 y.o. male seen in the office today for Chief Complaint Patient presents with Follow-up Yearly - no complaints Continues to do well denies any chest pain no signs of any heart failure. No significant pedal edema has lost some weight with the Ozempic. Says he feels stronger blood pressure little on the low side today probably related with weight loss we will go ahead and cut his lisinopril back to 5 mg daily laboratory reviewed cholesterol is excellent. No significant lightheadedness or dizziness no syncope near syncope. No chest pains irregular rhythm consistent with his chronic atrial fibrillation tolerating. Soft systolic murmur as before previous EKG and echo was reviewed. Biggest limiting factor is his bilateral claudication which she basically lives with. Does follow with vascular is not interested in any invasive procedures. No tobacco products. Tolerating the aspirin and Eliquis. No significant bruising or no bleeding or nosebleeds. Plan see back in 6 months, reduce his lisinopril to 5 mg daily. Overview of Problems Addressed: Problem Pad (Peripheral Artery Disease) ([facility]) Severe claudication. Following with the vascular. A-Fib ([facility]) Since 2020, Holter monitor A. fib throughout with rate controlled. Otherwise unremarkable. Rate control oral anticoagulation. New finding EKG January 09, 2021 A. fib patient essentially asymptomatic with it. Did have a history of A. fib after his coronary bypass grafting with cardioversion at that time. No known recurrent A. fib until today. Wide QRS as before. Tolerates it well has had a little bit of lightheadedness here and there. Heart rate 75. S/P Cabg (Coronary Artery Bypass Graft) Heart cath December 2021 patent grafts severe [place] coronary artery disease Medical therapy ON 08/11/[address] SONAM MÉNDEZ History of coronary bypass grafting 3 History of tissue aortic valve replacement early August 2015. S/P Avr 08/26 tissue AVR. Surgical. Echo 07/2023. s/p aortic valve replacement with a 23 mm Alfred Peñaloza bioprosthetic valve. Valve appears well-seated. V-max 2.8 m/s, mean gradient 15 mmHg. Dimensionless index of 0.4. Trivial insufficiency. EF 58%. 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 2021 Hypertension Assessment & Plan: Reviewed PAD (peripheral artery disease) ([facility]) Stable Hypertension Systolic 106 occasional lightheadedness we will cut his lisinopril back to 5 mg daily. BP better on Ozempic. A-fib ([facility]) Tolerating rate controlled. No heart failure symptoms. S/P CABG (coronary artery bypass graft) Reviewed echo 03/2023 reviewed. S/P AVR Reviewed. Histories: Past Medical History: Diagnosis Date Aortic valve calcification Arrhythmia Atrial fibrillation (HCC) after CABG CAD (coronary artery disease) 3 Vessel Claudication Left lower extremity symptoms Fractures Hypertension Mitral valve annular calcification Myocardial infarction (HCC) 08/02/2015 Non-ST Obesity Oral cancer ([facility]) Pilonidal cyst Subdural hematoma ([facility]) 2008 minor trauma while on Plavix at the time. Tendonitis of wrist, right TIA (transient ischemic attack) 2007 was put on plavix then had subdural one year later. Vitreous hemorrhage of left eye ([facility]) Past Surgical History: Procedure Laterality Date AORTIC VALVE REPLACEMENT CARDIAC CATHETERIZATION CARDIAC CATHETERIZATION N/A 12/25/2021 Procedure: Coronary Angiogram; Surgeon: Adilson Stone MD; Location: [facility]; Service: Cardiovascular CARDIAC CATHETERIZATION N/A 12/25/2021 Procedure: Left Heart Cath w/Grafts; Surgeon: Adilson Stone MD; Location: [facility]; Service: Cardiovascular CARDIAC VALVE REPLACEMENT CORONARY ARTERY BYPASS GRAFT 08/13/2015 3 Vessel/YEUNG to the LAD/SVG to obtuse marginal/SVG to a PDA MOUTH SURGERY 2007 Oral cancer TENDON RELEASE DEQUERVAINS Right 12/26/2018 Procedure: TENDON RELEASE DE QUERVAINS RIGHT; Surgeon: Jenaro Oquendo MD; Location: Main OR; Service: Orthopedic Family History Problem Relation Age of Onset COPD Mother Diabetes Father Stroke Paternal Grandmother Social History[1] Patient's Medications New Prescriptions No medications on file Previous Medications ACETAMINOPHEN (TYLENOL) 325 MG TABLET Take 2 (two) tablets (650 mg total) by mouth every 6 (six) hours as needed for pain (1-2 tablets) . ASCORBIC ACID (VITAMIN C) 500 MG CPER Take 1 (one) capsule (500 mg total) by mouth every other day . ASPIRIN 81 MG EC TABLET Take 1 tablet (81 mg total) by mouth daily. BLOOD SUGAR DIAGNOSTIC (RELION PRIME TEST STRIPS) STRIPS E11.65 Use as directed 4 times per day. BUMETANIDE (BUMEX) 1 MG TABLET Take 0.5 (one-half) tablet (0.5 mg total) by mouth every (more content not included)...[facility]04-11-2025 History of Present illness Narrative* Perston Healy MD - 10/19/2024 9:17 AM EDT [facility] [address] [facility] [address] [facility] [id number] Subjective: Andrew Arnold is a 79 y.o. male seen in the office today for Chief Complaint Patient presents with Follow-up Yearly - no complaints Continues to do well denies any chest pain no signs of any heart failure. No significant pedal edema has lost some weight with the Ozempic. Says he feels stronger blood pressure little on the low side today probably related with weight loss we will go ahead and cut his lisinopril back to 5 mg dailylaboratory reviewed cholesterol is excellent. No significant lightheadedness or dizziness no syncope near syncope. No chest pains irregular rhythm consistent with his chronic atrial fibrillation tolerating. Soft systolic murmur as before previous EKG and echo was reviewed. Biggest limiting factor is his bilateral claudication which she basically lives with. Does follow with vascular is not interested in any invasive procedures. No tobacco products. Tolerating the aspirin and Eliquis. No significant bruising or no bleeding or nosebleeds. Plan see back in 6 months, reduce his lisinopril to 5 mg daily. Overview of Problems Addressed: Problem Pad (Peripheral Artery Disease) (Hcc) Severe claudication. Following with the vascular. A-Fib ([facility]) Since 2020, Holter monitor A. fib throughout with rate controlled. Otherwise unremarkable. Rate control oral anticoagulation. New finding EKG January 09, 2021 A. fib patient essentially asymptomatic with it. Did have a history ofA. fib after his coronary bypass grafting with cardioversion at that time. No known recurrent A. fib until today. Wide QRS as before. Tolerates it well has had a little bit of lightheadedness here and there. Heart rate 75. S/P Cabg (Coronary Artery Bypass Graft) Heart cath December 2021 patent grafts severe [place] coronary artery disease Medical therapy ON 08/11/[address] SONAM MÉNDEZ History of coronary bypass grafting 3 History of tissue aortic valve replacement early August 2015. S/P Avr 08/26 tissue AVR. Surgical. Echo 07/2023. s/p aortic valve replacement with a 23 mm Alfred Peñaloza bioprosthetic valve. Valve appears well-seated. V-max 2.8 m/s, mean gradient 15 mmHg. Dimensionless index of 0.4. Trivial insufficiency. EF 58%. 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 2021 Hypertension Assessment & Plan: Reviewed PAD (peripheral artery disease) ([facility]) Stable Hypertension Systolic 106 occasional lightheadedness we will cut his lisinopril back to 5 mg daily. BP better onOzempic. A-fib ([facility]) Tolerating rate controlled. No heart failure symptoms. S/P CABG (coronary artery bypass graft) Reviewed echo 03/2023 reviewed. S/P AVR Reviewed. Histories: Past Medical History: Diagnosis Date Aortic valve calcification Arrhythmia Atrial fibrillation ([facility]) after CABG CAD (coronary artery disease) 3 Vessel Claudication Left lower extremity symptoms Fractures Hypertension Mitral valve annular calcification Myocardial infarction ([facility]) 08/02/2015 Non-ST Obesity Oral cancer ([facility]) Pilonidal cyst Subdural hematoma ([facility]) 2008 minor trauma while on Plavix at the time. Tendonitis of wrist, right TIA (transient ischemic attack) 2007 was put on plavix then had subdural one year later. Vitreous hemorrhage of left eye ([facility]) Past Surgical History: Procedure Laterality Date AORTIC VALVE REPLACEMENT CARDIAC CATHETERIZATION CARDIAC CATHETERIZATION N/A 12/25/2021 Procedure: Coronary Angiogram; Surgeon: Adilson tSone MD; Location: [facility]; Service: Cardiovascular CARDIAC CATHETERIZATION N/A 12/25/2021 Procedure: Left Heart Cath w/Grafts; Surgeon: Adilson Stone MD; Location: [facility]; Service: Cardiovascular CARDIAC VALVE REPLACEMENT CORONARY ARTERY BYPASS GRAFT 08/13/2015 3 Vessel/YEUNG to the LAD/SVG to obtuse marginal/SVG to a PDA MOUTH SURGERY 2007 Oral cancer TENDON RELEASE DEQUERVAINS Right 12/26/2018 Procedure: TENDON RELEASE DE QUERVAINS RIGHT; Surgeon: Jenaro Oquendo MD; Location: Main OR; Service: Orthopedic Family History Problem Relation Age of Onset COPD Mother Diabetes Father Stroke Paternal Grandmother Social History[1] Patient's Medications New Prescriptions No medications on file Previous Medications ACETAMINOPHEN (TYLENOL) 325 MG TABLET Take 2 (two) tablets (650 mg total) by mouth every 6 (six) hours as needed for pain (1-2 tablets) . ASCORBIC ACID (VITAMIN C) 500 MG CPER Take 1 (one) capsule (500 mg total) by mouth every other day . ASPIRIN 81 MG EC TABLET Take 1 tablet (81 mg total) by mouth daily. BLOOD SUGAR DIAGNOSTIC (RELION PRIME TEST STRIPS) STRIPS E11.65 Use as directed 4 times per day. BUMETANIDE (BUMEX) 1 MG TABLET Take 0.5 (one-half) tablet (0.5 mg total) by mouth every other day . CILOSTAZOL (PLETAL) 100 MG TABLET TAKE 1 TABLET BY MOUTH TWICE DAILY ON AN EMPTY STOMACH DOCUSATE SODIUM (COLACE) 100 MG CAPSULE Take 1 (one) capsule (100 mg total) by mouth 2 (two) times a day as needed . ESCITALOPRAM OXALATE (LEXAPRO) 10 MG TABLET Take 1 (one) tablet (10 mg total) by mouth nightly . FLASH GLUCOSE SENSOR (FREESTYLE JOHNNY 2 SENSOR) KIT 1 kit by Miscellaneous route every 14 (fourteen) days Use as directed to apply new sensor . INSULIN GLARGINE (LANTUS U-100 INSULIN) 100 UNIT/ML INJECTION Inject 25 (twenty five) Units under the skin nightly . INSULIN LISPRO (ADMELOG,HUMALOG) 100 UNIT/ML INJECTION Inject 6 (six) Units to 12 (twelve) Units under the skin 3 (three) times a day before meals . INSULIN SYRINGE-NEEDLE U-100 0.3 ML 31 GAUGE X 5/16 SYRG Use as directed QID . LANCETS MISC Use to check BG QID SolusV2 brand Dx E11.65. METOPROLOL SUCCINATE (TOPROL-XL) 25 MG 24 HR TABLET Take 1 (one) tablet (25 mg total) by mouth daily . PEN NEEDLE, DIABETIC 31 GAUGE X 3/16 NDLE Use as directed 4 times daily. . POTASSIUM CHLORIDE SA (K-DUR,KLOR-CON M10) 10 MEQ TABLET Take 1 (one) tablet (10 mEq total) by mouth every other day . PSYLLIUM (METAMUCIL) 0.52 GRAM CAPSULE Take 2 (two) capsules (1.04 g total) by mouth as needed . SEMAGLUTIDE (OZEMPIC) 1 MG/DOSE (4 MG/3 ML) PEN Inject 0.75 mL (1 mg total) under the skin once a week . SIMVASTATIN (ZOCOR) 40 MG TABLET Take 1 (one) tablet (40 mg total) by mouth at bedtime . Modified Medications Modified Medication Previous Medication APIXABAN (ELIQUIS) 5 MG TAB Eliquis 5 mg Tab Take 1 (one) tablet (5 mg total) by mouth 2 (two) times a day . Take 1 tablet by mouth twice daily LISINOPRIL (PRINIVIL,ZESTRIL) 5 MG TABLET lisinopriL (PRINIVIL,ZESTRIL) 10 MG tablet Take 1 (one) tablet (5 mg total) by mouth daily . Take 1 (one) tablet (10 mg total) by mouth daily . Discontinued Medications No medications on file Allergies[2] Review of Systems Constitutional: Negative for malaise/fatigue. Cardiovascular: Negative for chest pain, dyspnea on exertion, leg swelling and palpitations. Neurological: Negative for dizziness. Objective: Physical Exam Vitals and nursing note reviewed. Constitutional: General: He is not in acute distress. Appearance: He is well-developed. He is not diaphoretic. HENT: Head: Normocephalic. Eyes: General: No scleral icterus. Comments: Pupils reactive Neck: Vascular: No JVD. Cardiovascular: Rate and Rhythm: Rhythm irregular. Pulses: Radial pulses are 2+ on the right side and 2+ on the left side. Heart sounds: S1 normal and S2 normal. Murmur heard. No gallop. No S3 or S4 sounds. Comments: 2- 3/6 systolic murmur right sternal border. No diastolic murmur heard. Pulmonary: Effort: No respiratory distress. Breath sounds: Normal breath sounds. No stridor. No wheezing or rales. Abdominal: General: There is no distension. Palpations: Abdomen is soft. Tenderness: There is no abdominal tenderness. There is no guarding. Musculoskeletal: General: No tenderness. Comments: Trace pedal edema. Skin: General: Skin is warm and dry. Neurological: Mental Status: He is alert and oriented to person, place, and time. Coordination: Coordination normal. Vitals: Vitals: 10/19/24 0850 BP: (!) 106/51 BP Location: Left arm Patient Position: Sitting BP Cuff Size: X-large Adult Pulse: 79 SpO2: 92% Weight: 99.3 kg (219 lb) Height: 5' 7 Body mass index is 34.3 kg/m . No orders of the defined types were placed in this encounter. Follow Up Ordered: Return in about 6 months (around 04/20/2025). Preston Healy MD [1] Social History Tobacco Use Smoking status: Former Current packs/day: 0.00 Average packs/day: 3.0 packs/day for 12.0 years (36.0 ttl pk-yrs) Types: Cigarettes Start date: 08/27/1961 Quit date: 08/27/1973 Years since quittin.1 Smokeless tobacco: Former Types: Chew Vaping Use Vaping status: Never Used Substance Use Topics Alcohol use: Not Currently Alcohol/week: 0.0 standard drinks of alcohol Drug use: No [2] Allergies Allergen Reactions Pioglitazone GI Intolerance * Tianna Conn MA - 10/19/2024 8:48 AM EDT Review of Systems Constitutional: Negative for malaise/fatigue. Cardiovascular: Negative for chest pain, dyspnea on exertion, leg swelling and palpitations. Neurological: Negative for dizziness. documented in this [id number] Instructions* Patient Instructions* Tianna Conn MA - 10/17/2024 9:38 AM EDT How to Contact your Care Team: Provider: Dr. Preston Healy MD [employer] Drafter: Marie HEDRICK speech language pathologist assistant: Tianna documented in this [id number] Telephone encounter Note* Telephone Encounter - Jeri Mccallum LPN - 09/07/2024 7:56 AM EST Last OV 06/06/24. No future scheduled OV. [id number] Miscellaneous Notes* Telephone Encounter - Jeri Mccallum LPN - 09/07/2024 7:56 AM EST Last OV 06/06/24. No future scheduled OV. documented in this [id number] Telephone encounter Note* Telephone Encounter - Tianna Conn MA - 08/31/2024 11:06 AM EST Eliquis Last ov 11/11/[address] Healy Recall 6 mo. Scheduling to contact for ov [facility] Work Phone: [phone] Miscellaneous Notes* Telephone Encounter - Tianna Conn MA - 08/31/2024 11:06 AM EST Eliquis Last ov 11/11/[address] Healy Recall 6 mo. Scheduling to contact for ov documented in this [id number] Telephone encounter Note* Telephone Encounter - Jeri Mccallum LPN - 08/03/2024 7:58 AM EST Last OV 06/06/24. Next OV 11/30/24. [id number] Miscellaneous Notes* Telephone Encounter - Jeri Mccallum LPN - 08/03/2024 7:58 AM EST Last OV 06/06/24. Next OV 11/30/24. documented in this [id number] History of Present illness Narrative* Pebbles Ball MA - 06/06/2024 12:08 PM EST Images from the original note were not included. Vivien Foreman MD [employer] [place], [place]; Pebbles Ball MA Please get records from [facility] for last DM eye exam RECORD REQUESTED * Vivien Foreman MD - 06/06/2024 11:19 AM EST Chief Complaint Patient presents with Follow-up No Flu Shot-6 month f/u HPI: Andrew Arnold is a 79 y.o. gentleman presenting today for routine check. PMH of CAD s/p CABG bypass grafting x3, s/p AVR, postoperative A. 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 The patient is currently on Lexapro, which he reports as beneficial. However, he expresses a desire to increase the dosage. DM: The patient utilizes Lantus 30 units and Humalog thrice daily. He is also on Ozempic 0.5 mg. He engages in daily cycling on an elliptical machine, which he reports as beneficial for his leg pain. He has an upcoming appointment with Dr. Krishnan on 12/13/2023. He has a history of laser surgery performed by Dr. Blanca. HTN: Was previously controlled on lisinopril 10 mg , last visit was borderline uncontrolled. Increased lisinopril to 20 mg and has been feeling better and denies any concerns for CP, SOB, POLLACK, blurry vision , tingling/ numbness in extremities. Chest discomfort: Left-sided chest pain occurs every other day sometimes with minimal exertion or when working on [employer] and sometimes while watching TV. Associated with mild dizziness for few seconds. Denies any associated shortness of breath or radiation to the left shoulder or left neck, no association with any nausea Left heart cath came back with patent graft, obstruction in non vascularized diagonal branch, considering PCI but trying medical management at this time. Echo was also performed on 12/22/2021 showing LVEF of 59%, and moderate aortic stenosis with dilation of aortic root and ascending aorta. Patient is already feeling better and not having chest pain symptoms. Intermittent claudications: Mentioned that for a while now he has been having trouble walking through [place] that he needs to stop given pain in bilateral anterior thighs. Following up with cardiology and vascular medicine, improving on cilostazol Last testing done with Dr. Bill favoring conservative treatment as last scan was unchanged with moderate bilateral lower extremity PAD with blunted waveforms and diminished perfusion pressures at the level of both ankles Past Medical History: Diagnosis Date Aortic valve calcification Arrhythmia Atrial fibrillation (HCC) after CABG CAD (coronary artery disease) 3 Vessel Claudication (HCC) Left lower extremity symptoms Fractures Hypertension Mitral valve annular calcification Myocardial infarction (HCC) 08/02/2015 Non-ST Obesity Oral cancer (HCC) Pilonidal cyst Subdural hematoma (HCC) 2008 minor trauma while on Plavix at the time. Tendonitis of wrist, right TIA (transient ischemic attack) 2007 was put on plavix then had subdural one year later. Vitreous hemorrhage of left eye (HCC) Past Surgical History: Procedure Laterality Date AORTIC VALVE REPLACEMENT CARDIAC CATHETERIZATION CARDIAC CATHETERIZATION N/A 12/25/2021 Procedure: Coronary Angiogram; Surgeon: Adilson Stone MD; Location: [facility]; Service: Cardiovascular CARDIAC CATHETERIZATION N/A 12/25/2021 Procedure: Left Heart Cath w/Grafts; Surgeon: Adilson Stone MD; Location: [facility]; Service: Cardiovascular CARDIAC VALVE REPLACEMENT CORONARY ARTERY BYPASS GRAFT 08/13/2015 3 Vessel/YEUNG to the LAD/SVG to obtuse marginal/SVG to a PDA MOUTH SURGERY 2008 Oral cancer TENDON RELEASE DEQUERVAINS Right 12/26/2018 Procedure: TENDON RELEASE DE QUERVAINS RIGHT; Surgeon: Jenaro Oquendo MD; Location: Main OR; Service: Orthopedic Family History Problem Relation Age of Onset COPD Mother Diabetes Father Stroke Paternal Grandmother Social History Tobacco Use Smoking status: Former Current packs/day: 0.00 Average packs/day: 3.0 packs/day for 12.0 years (36.0 ttl pk-yrs) Types: Cigarettes Start date: 08/27/1961 Quit date: 08/27/1973 Years since quittin.8 Smokeless tobacco: Former Types: Chew Vaping Use Vaping status: Never Used Substance Use Topics Alcohol use: Not Currently Alcohol/week: 0.0 standard drinks of alcohol Drug use: No Review of Systems Vitals: 06/06/24 1059 BP: 128/78 BP Location: Right arm Patient Position: Sitting BP Cuff Size: X-large Adult Pulse: 62 Resp: 16 Temp: 98 F (36.7 C) TempSrc: Temporal SpO2: 97% Weight: 98.4 kg (217 lb) Height: 5' 7 Estimated body mass index is 33.99 kg/m as calculated from the following: Height as of this encounter: 5' 7. Weight as of this encounter: 98.4 kg (217 lb). Physical Exam Constitutional: General: He is not in acute distress. Appearance: He is not ill-appearing. HENT: Head: Normocephalic and atraumatic. Right Ear: Tympanic membrane, ear canal and external ear normal. Left Ear: Tympanic membrane, ear canal and external ear normal. Nose: Nose normal. Mouth/Throat: Mouth: Mucous membranes are moist. Pharynx: Oropharynx is clear. No oropharyngeal exudate or posterior oropharyngeal erythema. Eyes: General: Left eye: No discharge. Extraocular Movements: Extraocular movements intact. Conjunctiva/sclera: Conjunctivae normal. Pupils: Pupils are equal, round, and reactive to light. Cardiovascular: Rate and Rhythm: Normal rate and regular rhythm. Pulses: Normal pulses. Heart sounds: Normal heart sounds. No murmur heard. No gallop. Pulmonary: Effort: Pulmonary effort is normal. Breath sounds: Normal breath sounds. No wheezing, rhonchi or rales. Chest: Chest wall: No tenderness. Abdominal: General: Abdomen is flat. Bowel sounds are normal. There is no distension. Palpations: Abdomen is soft. There is no mass. Tenderness: There is no abdominal tenderness. There is no right CVA tenderness, left CVA tenderness, guarding or rebound. Musculoskeletal: General: No tenderness. Normal range of motion. Cervical back: Normal range of motion and neck supple. No rigidity. No muscular tenderness. Right lower leg: No edema. Left lower leg: No edema. Lymphadenopathy: Cervical: No cervical adenopathy. Skin: General: Skin is warm. Findings: No erythema, lesion or rash. Neurological: General: No focal deficit present. Mental Status: He is alert and oriented to person, place, and time. Sensory: No sensory deficit. Motor: No weakness. Gait: Gait normal. Psychiatric: Mood and Affect: Mood normal. Behavior: Behavior normal. Thought Content: Thought content normal. Judgment: Judgment normal. OARRS/NARxCHECK Report Received and Assessed: Date controlled substance agreement signed: No data found Date of last drug screen: Tobacco Counseling: Counseling given: Not Answered Patient's Medications New Prescriptions No medications on file Previous Medications ACETAMINOPHEN (TYLENOL) 325 MG TABLET Take 2 (two) tablets (650 mg total) by mouth every 6 (six) hours as needed for pain (1-2 tablets) . APIXABAN (ELIQUIS) 5 MG TAB Take 1 (one) tablet (5 mg total) by mouth 2 (two) times a day . ASCORBIC ACID (VITAMIN C) 500 MG CPER Take 1 (one) capsule (500 mg total) by mouth every other day . ASPIRIN 81 MG EC TABLET Take 1 tablet (81 mg total) by mouth daily. BLOOD SUGAR DIAGNOSTIC (RELION PRIME TEST STRIPS) STRIPS E11.65 Use as directed 4 times per day. BUMETANIDE (BUMEX) 1 MG TABLET Take 0.5 (one-half) tablet (0.5 mg total) by mouth every other day . CILOSTAZOL (PLETAL) 100 MG TABLET TAKE 1 TABLET BY MOUTH TWICE DAILY ON AN EMPTY STOMACH DOCUSATE SODIUM (COLACE) 100 MG CAPSULE Take 1 (one) capsule (100 mg total) by mouth 2 (two) times a day as needed . ESCITALOPRAM OXALATE (LEXAPRO) 10 MG TABLET Take 1 (one) tablet (10 mg total) by mouth nightly . FLASH GLUCOSE SENSOR (FREESTYLE JOHNNY 2 SENSOR) KIT 1 kit by Miscellaneous route every 14 (fourteen) days Use as directed to apply new sensor . INSULIN GLARGINE (LANTUS U-100 INSULIN) 100 UNIT/ML INJECTION Inject 25 (twenty five) Units under the skin nightly . INSULIN LISPRO (ADMELOG,HUMALOG) 100 UNIT/ML INJECTION Inject 6 (six) Units to 12 (twelve) Units under the skin 3 (three) times a day before meals . INSULIN SYRINGE-NEEDLE U-100 0.3 ML 31 GAUGE X 5/16 SYRG Use as directed QID . LANCETS MISC Use to check BG QID SolusV2 brand Dx E11.65. LISINOPRIL (PRINIVIL,ZESTRIL) 10 MG TABLET Take 1 (one) tablet (10 mg total) by mouth daily . METOPROLOL SUCCINATE (TOPROL-XL) 25 MG 24 HR TABLET Take 1 (one) tablet (25 mg total) by mouth daily . PEN NEEDLE, DIABETIC 31 GAUGE X 3/16 NDLE Use as directed 4 times daily. . POTASSIUM CHLORIDE SA (K-DUR,KLOR-CON M10) 10 MEQ TABLET Take 1 (one) tablet (10 mEq total) by mouth every other day . PSYLLIUM (METAMUCIL) 0.52 GRAM CAPSULE Take 2 (two) capsules (1.04 g total) by mouth as needed . SEMAGLUTIDE (OZEMPIC) 1 MG/DOSE (4 MG/3 ML) PEN Inject 0.75 mL (1 mg total) under the skin once a week . SIMVASTATIN (ZOCOR) 40 MG TABLET Take 1 (one) tablet (40 mg total) by mouth at bedtime . Modified Medications No medications on file Discontinued Medications BLOOD SUGAR DIAGNOSTIC (GLUCOSE BLOOD) STRIPS Dx code E11.9 use to check BG 4x daily. Health Maintenance Due Topic Date Due PT Plan of Care Never done Respiratory Syncytial Virus Immunization: Risk, 60-74 Risk, or 75+ (1 - 1-dose 75+ series) Never done Tetanus: Every 10yrs 03/18/2021 Diabetic Eye Exam 04/05/2023 Urine (micro)albumin/creatinine ratio - Diabetes 11/30/2023 Influenza Vaccine (1) 03/11/2024 COVID-19 Vaccine ( season) 2024 Assessment & Plan Problem List Items Addressed This Visit Cardiovascular and Mediastinum Hypertension PAD (peripheral artery disease) (HCC) - Primary Assessment & Plan 1. Cough and cold. His symptoms suggest a viral infection that is self-limiting. He was advised to monitor his symptoms and report any worsening. Should his condition deteriorate, an antibiotic prescription will be considered. He can send a [employer] message if symptoms worsen, and the prescription can be sent to [facility]. 2. Leg claudication. His kidney and liver functions, as well as electrolytes, are within normal limits. His blood pressure is well-controlled. He was encouraged to maintain his exercise regimen. Swimming was suggested asa low-impact exercise option. He was advised to keep working with [employer] and continue losing weight, as recommended by Dr. Thurston. If symptoms do not improve, a bypass procedure may be considered. Chest discomfort. He reported no current chest discomfort. No further action is required at this time. Refusing flu shot today. Follow-up Return in 6 months for follow up. I spent over 30 mins reviewing patient's chart , HPI and coordicating plan of care. After discussing the use of ambient listening and audio recording in generating medical documentation, the patient verbally consented to use of this technology for today's visit. My ongoing relationship with Andrew Arnold requires continued responsibility and cognitive effort of being the focal point for all services related to chronic condition(s). Return in about 6 months (around 12/04/2024) for MWV. VIVIEN FOREMAN MD [facility] [id number] Dept: [phone] Over the last 2 weeks, how often have you been bothered by any of the following problems? Little interest or pleasure in doing things Feeling down, depressed, or hopeless PHQ-2 Total Score Trouble falling or staying asleep, or sleeping too much Feeling tired or having little energy Poor appetite or overeating Feeling bad about yourself - or that you are a failure or have let yourself or your family down Trouble concentrating on things, such as reading the newspaper or watching television Moving or speaking so slowly that other people could have noticed. Or the opposite - being fidgety or restless that you have been moving around a lot more than usual Thoughts that you would be better off , or hurting yourself in some way PHQ-9 Total Score If you checked off any problems, how difficult have these problems made it for you to do your work,take care of things at home, or get along with other people? 03/02/2021 10:00 AM 06/12/2021 10:00 AM 12/10/2021 10:27 AM 02/22/2022 7:00 AM 06/14/2022 9:00 AM 07/23/2022 1:11 PM 11/29/2023 7:36 AM Depression Screening Little interest or pleasure in doing things 2 0 1 0 1 1 2 Feeling down, depressed, or hopeless 1 3 1 0 2 0 1 PHQ-2 Total Score 3 3 2 0 3 1 3 Trouble falling or staying asleep, or sleeping too much 2 0 0 1 1 1 Feeling tired or having little energy 1 0 0 0 1 1 Poor appetite or overeating 0 0 0 0 1 0 Feeling bad about yourself - or that you are a failure or have let yourself or your family down 2 12 3 1 2 Trouble concentrating on things, such as reading the newspaper or watching television 2 1 1 2 1 1 Moving or speaking so slowly that other people could have noticed. Or the opposite - being so fidgety or restless that you have been moving around a lot more than usual 0 3 0 0 0 1 Thoughts that you would be better off , or of hurting yourself in some way 0 0 1 1 0 1 PHQ-9 Total Score 10 8 6 10 6 10 If you checked off any problems, how difficult have these problems made it for you to do your work,take care of things at home, or get along with other people? Somewhat difficult Not difficult at all Somewhat difficult Somewhat difficult Not difficult at all 03/02/2021 10:00 AM 06/12/2021 10:00 AM 12/10/2021 10:27 AM 02/22/2022 7:00 AM 06/14/2022 9:00 AM 07/23/2022 1:11 PM 11/29/2023 7:36 AM Depression Screening Little interest or pleasure in doing things 2 0 1 0 1 1 2 Feeling down, depressed, or hopeless 1 3 1 0 2 0 1 PHQ-2 Total Score 3 3 2 0 3 1 3 Trouble falling or staying asleep, or sleeping too much 2 0 0 1 1 1 Feeling tired or having little energy 1 0 0 0 1 1 Poor appetite or overeating 0 0 0 0 1 0 Feeling bad about yourself - or that you are a failure or have let yourself or your family down 2 12 3 1 2 Trouble concentrating on things, such as reading the newspaper or watching television 2 1 1 2 1 1 Moving or speaking so slowly that other people could have noticed. Or the opposite - being so fidgety or restless that you have been moving around a lot more than usual 0 3 0 0 0 1 Thoughts that you would be better off , or of hurting yourself in some way 0 0 1 1 0 1 PHQ-9 Total Score 10 8 6 10 6 10 If you checked off any problems, how difficult have these problems made it for you to do your work,take care of things at home, or get along with other people? Somewhat difficult Not difficult at all Somewhat difficult Somewhat difficult Not difficult at all 03/02/2021 10:00 AM 06/12/2021 10:00 AM 12/10/2021 10:27 AM 02/22/2022 7:00 AM 06/14/2022 9:00 AM 07/23/2022 1:11 PM 11/29/2023 7:36 AM Depression Screening Little interest or pleasure in doing things 2 0 1 0 1 1 2 Feeling down, depressed, or hopeless 1 3 1 0 2 0 1 PHQ-2 Total Score 3 3 2 0 3 1 3 Trouble falling or staying asleep, or sleeping too much 2 0 0 1 1 1 Feeling tired or having little energy 1 0 0 0 1 1 Poor appetite or overeating 0 0 0 0 1 0 Feeling bad about yourself - or that you are a failure or have let yourself or your family down 2 12 3 1 2 Trouble concentrating on things, such as reading the newspaper or watching television 2 1 1 2 1 1 Moving or speaking so slowly that other people could have noticed. Or the opposite - being so fidgety or restless that you have been moving around a lot more than usual 0 3 0 0 0 1 Thoughts that you would be better off , or of hurting yourself in some way 0 0 1 1 0 1 PHQ-9 Total Score 10 8 6 10 6 10 If you checked off any problems, how difficult have these problems made it for you to do your work,take care of things at home, or get along with other people? Somewhat difficult Not difficult at all Somewhat difficult Somewhat difficult Not difficult at all 03/02/2021 10:00 AM 06/12/2021 10:00 AM 12/10/2021 10:27 AM 02/22/2022 7:00 AM 06/14/2022 9:00 AM 07/23/2022 1:11 PM 11/29/2023 7:36 AM Depression Screening Little interest or pleasure in doing things 2 0 1 0 1 1 2 Feeling down, depressed, or hopeless 1 3 1 0 2 0 1 PHQ-2 Total Score 3 3 2 0 3 1 3 Trouble falling or staying asleep, or sleeping too much 2 0 0 1 1 1 Feeling tired or having little energy 1 0 0 0 1 1 Poor appetite or overeating 0 0 0 0 1 0 Feeling bad about yourself - or that you are a failure or have let yourself or your family down 2 12 3 1 2 Trouble concentrating on things, such as reading the newspaper or watching television 2 1 1 2 1 1 Moving or speaking so slowly that other people could have noticed. Or the opposite - being so fidgety or restless that you have been moving around a lot more than usual 0 3 0 0 0 1 Thoughts that you would be better off , or of hurting yourself in some way 0 0 1 1 0 1 PHQ-9 Total Score 10 8 6 10 6 10 If you checked off any problems, how difficult have these problems made it for you to do your work,take care of things at home, or get along with other people? Somewhat difficult Not difficult at all Somewhat difficult Somewhat difficult Not difficult at all documented in this [id number] NoteChief Complaint Patient presents with Follow-up No Flu Shot-6 month f/u HPI: Andrew Arnold is a 79 y.o. gentleman presenting today for routine check. PMH of CAD s/p CABG bypass grafting x3, s/p AVR, postoperative A. 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 The patient is currently on Lexapro, which he reports as beneficial. However, he expresses a desire to increase the dosage. DM: The patient utilizes Lantus 30 units and Humalog thrice daily. He is also on Ozempic 0.5 mg. He engages in daily cycling on an elliptical machine, which he reports as beneficial for his leg pain. He has an upcoming appointment with Dr. Krishnan on 12/13/2023. He has a history of laser surgery performed by Dr. Blanca. HTN: Was previously controlled on lisinopril 10 mg , last visit was borderline uncontrolled. Increased lisinopril to 20 mg and has been feeling better and denies any concerns for CP, SOB, POLLACK, blurry vision , tingling/ numbness in extremities. Chest discomfort: Left-sided chest pain occurs every other day sometimes with minimal exertion or when working on his treadmill and sometimes while watching TV. Associated with mild dizziness for few seconds. Denies any associated shortness of breath or radiation to the left shoulder or left neck, no association with any nausea Left heart cath came back with patent graft, obstruction in non vascularized diagonal branch, considering PCI but trying medical management at this time. Echo was also performed on 12/22/2021 showing LVEF of 59%, and moderate aortic stenosis with dilation of aortic root and ascending aorta. Patient is already feeling better and not having chest pain symptoms. Intermittent claudications: Mentioned that for a while now he has been having trouble walking through [employer] that he needs to stop given pain in bilateral anterior thighs. Following up with cardiology and vascular medicine, improving on cilostazol Last testing done with Dr. Bill favoring conservative treatment as last scan was unchanged with moderate bilateral lower extremity PAD with blunted waveforms and diminished perfusion pressures at the level of both ankles Past Medical History: Diagnosis Date Aortic valve calcification Arrhythmia Atrial fibrillation (HCC) after CABG CAD (coronary artery disease) 3 Vessel Claudication (HCC) Left lower extremity symptoms Fractures Hypertension Mitral valve annular calcification Myocardial infarction (HCC) 08/02/2015 Non-ST Obesity Oral cancer (HCC) Pilonidal cyst Subdural hematoma (HCC) 2008 minor trauma while on Plavix at the time. Tendonitis of wrist, right TIA (transient ischemic attack) 2007 was put on plavix then had subdural one year later. Vitreous hemorrhage of left eye (HCC) Past Surgical History: Procedure Laterality Date AORTIC VALVE REPLACEMENT CARDIAC CATHETERIZATION CARDIAC CATHETERIZATION N/A 12/25/2021 Procedure: Coronary Angiogram; Surgeon: Adilson Stone MD; Location: [facility]; Service: Cardiovascular CARDIAC CATHETERIZATION N/A 12/25/2021 Procedure: Left Heart Cath w/Grafts; Surgeon: Adilson Stone MD; Location: [facility]; Service: Cardiovascular CARDIAC VALVE REPLACEMENT CORONARY ARTERY BYPASS GRAFT 08/13/2015 3 Vessel/YEUNG to the LAD/SVG to obtuse marginal/SVG to a PDA MOUTH SURGERY 2007 Oral cancer TENDON RELEASE DEQUERVAINS Right 12/26/2018 Procedure: TENDON RELEASE DE QUERVAINS RIGHT; Surgeon: Jenaro Oquendo MD; Location: Main OR; Service: Orthopedic Family History Problem Relation Age of Onset COPD Mother Diabetes Father Stroke Paternal Grandmother Social History Tobacco Use Smoking status: Former Current packs/day: 0.00 Average packs/day: 3.0 packs/day for 12.0 years (36.0 ttl pk-yrs) Types: Cigarettes Start date: 08/27/1961 Quit date: 08/27/1973 Years since quittin.8 Smokeless tobacco: Former Types: Chew Vaping Use Vaping status: Never Used Substance Use Topics Alcohol use: Not Currently Alcohol/week: 0.0 standard drinks of alcohol Drug use: No Review of Systems Vitals: 06/06/24 1059 BP: 128/78 BP Location: Right arm Patient Position: Sitting BP Cuff Size: X-large Adult Pulse: 62 Resp: 16 Temp: 98 degrees F (36.7 degrees C) TempSrc: Temporal SpO2: 97% Weight: 98.4 kg (217 lb) Height: 5' 7 Estimated body mass index is 33.99 kg/m as calculated from the following: Height as of this encounter: 5' 7. Weight as of this encounter: 98.4 kg (217 lb). Physical Exam Constitutional: General: He is not in acute distress. Appearance: He is not ill-appearing. HENT: Head: Normocephalic and atraumatic. Right Ear: Tympanic membr (more content not included)...[facility] 05-23-2024 NoteNail care Patient is a pleasant 78 year-old male who comes in today for nail care. His geriatric status and diabetes is managed by primary including Dr. Foreman. Comes in today for nail care. Physical Vascular: DP pulses are palpable 2-4. PT pulses are nonpalpable due to edema. +1 foot and ankle edema. Skin is shiny atrophic dysvascular with absence of hair growth. Feet are warm to cool proximal to distal. Nails left foot [id number] and right foot [id number] are elongated thickened mycotic crumbling dystrophic. Neuro: Light blunted at 3-6 sites bilaterally. Babinski's is blunted. Musculoskeletal: Can easily wiggle toes not any clicking or catching. Mild hammering of the distal digits 2 through 4 right and left foot with some pes planovalgus foot type. 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 -Given his elevated limb loss risk score he does qualify for nail care. Procedure: After timeout consent was performed, sharply debrided and debulk in height and length 10 onychomycotic nails with a sharp around nail nippers consistent with a q8 modifier. Follow-up in 3 months AUTHENTICATED BY HOLA ARROYO JR., ON 05/23/2024 11:23:22[facility]11-13-2024 History of Present illness Narrative* Hola Arroyo Jr., DPM - 05/23/2024 11:22 AM EST Nail care Patient is a pleasant 78 year-old male who comes in today for nail care. His geriatric status and diabetes is managed by primary including Dr. Foreman. Comes in today for nail care. Physical Vascular: DP pulses are palpable 2-4. PT pulses are nonpalpable due to edema. +1 foot and ankle edema. Skin is shiny atrophic dysvascular with absence of hair growth. Feet are warm to cool proximal to distal. Nails left foot [id number] and right foot [id number] are elongated thickened mycotic crumbling dystrophic. Neuro: Light blunted at 3-6 sites bilaterally. Babinski's is blunted. Musculoskeletal: Can easily wiggle toes not any clicking or catching. Mild hammering of the distal digits 2 through 4 right and left foot with some pes planovalgus foot type. 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 -Given his elevated limb loss risk score he does qualify for nail care. Procedure: After timeout consent was performed, sharply debrided and debulk in height and length 10onychomycotic nails with a sharp around nail nippers consistent with a q8 modifier. Follow-up in 3 months documented in this [id number] NotePatient ID: Andrew Arnold is a 78 y.o. male 1945 Subjective: Andrew Arnold presents for follow-up of Type 2 diabetes Patient has had diabetes for 23 years. Diagnosed in 2000 Outpatient Medications Marked as Taking for the 05/18/24 encounter (Office Visit) with Radha Hughes, JOHN: acetaminophen (TYLENOL) 325 MG tablet, Take 2 (two) tablets (650 mg total) by mouth every 6 (six) hours as needed for pain (1-2 tablets) . apixaban (ELIQUIS) 5 mg Tab, Take 1 (one) tablet (5 mg total) by mouth 2 (two) times a day . ascorbic Acid (VITAMIN C) 500 mg CpER, Take 1 (one) capsule (500 mg total) by mouth every other day . aspirin 81 MG EC tablet, Take 1 tablet (81 mg total) by mouth daily. bumetanide (BUMEX) 1 MG tablet, Take 0.5 (one-half) tablet (0.5 mg total) by mouth every other day . cilostazoL (PLETAL) 100 MG tablet, TAKE 1 TABLET BY MOUTH TWICE DAILY ON AN EMPTY STOMACH docusate sodium (COLACE) 100 MG capsule, Take 1 (one) capsule (100 mg total) by mouth 2 (two) times a day as needed . escitalopram oxalate (LEXAPRO) 10 MG tablet, Take 1 (one) tablet (10 mg total) by mouth nightly . flash glucose sensor (FreeStyle Johnny 2 Sensor) Kit, 1 kit by Miscellaneous route every 14 (fourteen) days Use as directed to apply new sensor . insulin glargine (Lantus U-100 Insulin) 100 unit/mL injection, Inject 25 (twenty five) Units under the skin nightly . insulin lispro (AdmeLOG,HumaLOG) 100 unit/mL injection, Inject 6 (six) Units to 12 (twelve) Units under the skin 3 (three) times a day before meals . insulin syringe-needle U-100 0.3 mL 31 gauge x 5/16 Syrg, Use as directed QID . lisinopriL (PRINIVIL,ZESTRIL) 10 MG tablet, Take 1 (one) tablet (10 mg total) by mouth daily . metoprolol succinate (TOPROL-XL) 25 MG 24 hr tablet, Take 1 (one) tablet (25 mg total) by mouth daily . potassium chloride SA (K-DUR,KLOR-CON M10) 10 MEQ tablet, Take 1 (one) tablet (10 mEq total) by mouth every other day . psyllium (METAMUCIL) 0.52 gram capsule, Take 2 (two) capsules (1.04 g total) by mouth as needed . semaglutide (Ozempic) 1 mg/dose (4 mg/3 mL) Pen, Inject 0.75 mL (1 mg total) under the skin once a week . simvastatin (ZOCOR) 40 MG tablet, Take 1 (one) tablet (40 mg total) by mouth at bedtime . Review of Systems: Review of Systems Constitutional: Negative for fatigue and unexpected weight change. HENT: Positive for hearing loss. Negative for trouble swallowing. Eyes: Negative for visual disturbance. Respiratory: Negative for cough and shortness of breath. Cardiovascular: Negative for chest pain and leg swelling. Gastrointestinal: Negative for abdominal pain, constipation, diarrhea, nausea and vomiting. Endocrine: Negative for polydipsia, polyphagia and polyuria. Genitourinary: Negative for frequency and urgency. Musculoskeletal: Left hand possible lipoma or cyst. Skin: Negative for wound. Neurological: Positive for weakness (pain with walking) and numbness (in feet). Negative for headaches. Psychiatric/Behavioral: Negative for agitation and sleep disturbance. The patient is not nervous/anxious. The following portions of the patient's history were reviewed and updated as appropriate: allergies, current medications, past family history, past medical history, past social history, past surgical history and problem list. Objective: BP 136/69 Pulse 93 Wt 100.9 kg (222 lb 8 oz) BMI 34.85 kg/m Wt Readings from Last 3 Encounters: 05/18/24 100.9 kg (222 lb 8 oz) 04/26/24 99.3 kg (219 lb) 01/26/24 102.1 kg (225 lb) Physical Exam: General: alert, appears stated age and cooperative Eyes: conjunctivae/corneas clear. PERRL, EOM's intact. Neck: no adenopathy, supple, symmetrical, trachea midline. 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 Neuro: normal without focal findings, mental status, speech normal, alert and oriented x3 and SIERRA Laboratory Review: BP 136/69 Pulse 93 Wt 100.9 kg (222 lb 8 oz) BMI 34.85 kg/m Date: 05/11/24 *labs reviewed 05/18/24 Hgb A1c: 7.5% Creat: 1.07; eGFR: 71 AST: 20; ALT: 20 K: 4.9 TSH: 1.64 ; FreeT4: 1.1 12/02/23 Hgb A1c: 7.3% Creat: 1.01; eGFR: 76 AST: 28; ALT: 17 K: 4.5 CBC: WBC:5.58; Hgb: 13; Hct: 40.4; Plt: 152 Tchol: 110; Tri ; HDL: 55 ; LDL: 47 TSH: 1.92 ; FreeT4: 1.1 06/01/23 Hgb A1c: 9.2% Creat: 1.26; eGFR: 58 AST: 19; ALT: 21 K: 4.9 Tchol: 126; Tri ; HDL: 60 ; LDL: 55 11/29/22 Hgb A1c: 8.4% Creat: (more content not included)...[facility]11-08-2024 History of Present illness Narrative* Radha Hughes CNP - 05/18/2024 8:51 AM EST Images from the original note were not included. Patient ID: Andrew Arnold is a 78 y.o. male 1945 Subjective: Andrew Arnold presents for follow-up of Type 2 diabetes Patient has had diabetes for 23 years. Diagnosed in 2000 Outpatient Medications Marked as Taking for the 05/18/24 encounter (Office Visit) with Radha Hughes CNP: acetaminophen (TYLENOL) 325 MG tablet, Take 2 (two) tablets (650 mg total) by mouth every 6 (six) hours as needed for pain (1-2 tablets) . apixaban (ELIQUIS) 5 mg Tab, Take 1 (one) tablet (5 mg total) by mouth 2 (two) times a day . ascorbic Acid (VITAMIN C) 500 mg CpER, Take 1 (one) capsule (500 mg total) by mouth every other day. aspirin 81 MG EC tablet, Take 1 tablet (81 mg total) by mouth daily. bumetanide (BUMEX) 1 MG tablet, Take 0.5 (one-half) tablet (0.5 mg total) by mouth every other day . cilostazoL (PLETAL) 100 MG tablet, TAKE 1 TABLET BY MOUTH TWICE DAILY ON AN EMPTY STOMACH docusate sodium (COLACE) 100 MG capsule, Take 1 (one) capsule (100 mg total) by mouth 2 (two) timesa day as needed . escitalopram oxalate (LEXAPRO) 10 MG tablet, Take 1 (one) tablet (10 mg total) by mouth nightly . flash glucose sensor (FreeStyle Johnny 2 Sensor) Kit, 1 kit by Miscellaneous route every 14 (fourteen) days Use as directed to apply new sensor . insulin glargine (Lantus U-100 Insulin) 100 unit/mL injection, Inject 25 (twenty five) Units under the skin nightly . insulin lispro (AdmeLOG,HumaLOG) 100 unit/mL injection, Inject 6 (six) Units to 12 (twelve) Units under the skin 3 (three) times a day before meals . insulin syringe-needle U-100 0.3 mL 31 gauge x 5/16 Syrg, Use as directed QID . lisinopriL (PRINIVIL,ZESTRIL) 10 MG tablet, Take 1 (one) tablet (10 mg total) by mouth daily . metoprolol succinate (TOPROL-XL) 25 MG 24 hr tablet, Take 1 (one) tablet (25 mg total) by mouth daily . potassium chloride SA (K-DUR,KLOR-CON M10) 10 MEQ tablet, Take 1 (one) tablet (10 mEq total) by mouth every other day . psyllium (METAMUCIL) 0.52 gram capsule, Take 2 (two) capsules (1.04 g total) by mouth as needed . semaglutide (Ozempic) 1 mg/dose (4 mg/3 mL) Pen, Inject 0.75 mL (1 mg total) under the skin once a week . simvastatin (ZOCOR) 40 MG tablet, Take 1 (one) tablet (40 mg total) by mouth at bedtime . Review of Systems: Review of Systems Constitutional: Negative for fatigue and unexpected weight change. HENT: Positive for hearing loss. Negative for trouble swallowing. Eyes: Negative for visual disturbance. Respiratory: Negative for cough and shortness of breath. Cardiovascular: Negative for chest pain and leg swelling. Gastrointestinal: Negative for abdominal pain, constipation, diarrhea, nausea and vomiting. Endocrine: Negative for polydipsia, polyphagia and polyuria. Genitourinary: Negative for frequency and urgency. Musculoskeletal: Left hand possible lipoma or cyst. Skin: Negative for wound. Neurological: Positive for weakness (pain with walking) and numbness (in feet). Negative for headaches. Psychiatric/Behavioral: Negative for agitation and sleep disturbance. The patient is not nervous/anxious. The following portions of the patient's history were reviewed and updated as appropriate: allergies, current medications, past family history, past medical history, past social history, past surgicalhistory and problem list. Objective: BP 136/69 Pulse 93 Wt 100.9 kg (222 lb 8 oz) BMI 34.85 kg/m Wt Readings from Last 3 Encounters: 05/18/24 100.9 kg (222 lb 8 oz) 04/26/24 99.3 kg (219 lb) 01/26/24 102.1 kg (225 lb) Physical Exam: General: alert, appears stated age and cooperative Eyes: conjunctivae/corneas clear. PERRL, EOM's intact. Neck: no adenopathy, supple, symmetrical, trachea midline. 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 Neuro: normal without focal findings, mental status, speech normal, alert and oriented x3 and [facility]ER[facility] Laboratory Review: BP 136/69 Pulse 93 Wt 100.9 kg (222 lb 8 oz) BMI 34.85 kg/m Date: 05/11/24 *labs reviewed 05/18/24 Hgb A1c: 7.5% Creat: 1.07; eGFR: 71 AST: 20; ALT: 20 K: 4.9 TSH: 1.64 ; FreeT4: 1.1 12/02/23 Hgb A1c: 7.3% Creat: 1.01; eGFR: 76 AST: 28; ALT: 17 K: 4.5 CBC: WBC:5.58; Hgb: 13; Hct: 40.4; Plt: 152 Tchol: 110; Tri ; HDL: 55 ; LDL: 47 TSH: 1.92 ; FreeT4: 1.1 06/01/23 Hgb A1c: 9.2% Creat: 1.26; eGFR: 58 AST: 19; ALT: 21 K: 4.9 Tchol: 126; Tri ; HDL: 60 ; LDL: 55 11/29/22 Hgb A1c: 8.4% Creat: 0.94; eGFR: 83 AST: 25; ALT: 27 K: 4.8 Tchol: 107; Tri ; HDL: 50 ; LDL: 46 TSH: 1.58 ; FreeT4: 1.0 Microalbumin/creatinine Ratio: 22 02/17/22 Hgb A1c: 7.8% Creat: 0.97; eGFR: 80 AST: 24; ALT: 30 K: 4.9 CBC: WBC:6.34; Hgb: 12.7; Hct: 39.3; Plt: 157 10/08/21 Hgb A1c: 10.6% Creat: 1.14; eGFR: 62 AST: 24; ALT: 20 K: 4.8 Tchol: 130; Tri ; HDL: 47 ; LDL: 67 TSH: 1.99 ; FreeT4: 1.1 06/12/21 Hgb A1c: 9.4% Creat: 1.22; eGFR: 57 AST: 17; ALT: 23 K: 4.7 TSH: 1.85 ; FreeT4: 1.1 02/25/21 Hgb A1c: 10.1% Creat: 0.91; eGFR: 82 AST: 21; ALT: 21 K: 4.6 TSH: 1.54 ; FreeT4: 1.2 12/17/20 Hgb A1c: 12.5% Creat: 1.18; eGFR: 60 AST: 13; ALT: 20 K: 4.6 CBC: WBC:6.30; Hgb: 13.4; Hct: 41.1; Plt: 175 Tchol: 124; Tri ; HDL: 56 ; LDL: 56 TSH: 2.05 Microalbumin/creatinine Ratio: 41 05/05/20 Hgb A1c: 8.9% Creat: 0.94; eGFR: >60 K: 4.0 TSH: 2.39 ; FreeT4: 1.10 12/27/19 Hgb A1c: 9.0% Creat: 0.98; eGFR: >60 AST: 14; ALT: 21 K: 4.6 CBC: WBC:7.0; Hgb: 14.0; Hct: 42.7; Plt: 201 Tchol: 133; Tri ; HDL: 52 ; LDL: 70 TSH: 2.72 ; FreeT4: 1.05 02/20/19 Hgb A1c: 8.8% Creat: 1.0; eGFR: >60 AST: 22; ALT: 25 K: 4.1 10/23/2018 Hemoglobin A1c 9.7% Creatinine 1.00, EGFR >60, K4.2 AST 22, ALT 31 Microalbumin/creatinine ratio: 12 TSH 2.03, free T4 0.87 T cholesterol 118, TG 49, HDL 51, LDL 57 CBC: H/H 14.3/42.6, WBC 5.2, platelets 180,000 06/20/18 Hgb A1c: 6.3% Creat: 0.9; eGFR: >60 AST: 25; ALT: 17 K: 4.3 Assessment/Plan: Dx: 1. 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) 2. Type 2 diabetes mellitus with retinopathy of both eyes, with long-term current use of insulin, macular edema presence unspecified, unspecified retinopathy severity ([facility]) pen needle, diabetic 31 gauge x 3/16 Ndle Type 2 diabetes, under fair control Currently taking: No oral hypoglycemic medications Humalog insulin: 6 units at breakfast; 6 units at lunch; 8 units at supper Lantus insulin: 23 units at bedtime Ozempic 1.0 mg weekly. Current Hemoglobin A1C= Lab Results Component Value Date HGBA1C 7.3 (H) 12/02/2023 HGBA1C 9.2 (H) 06/01/2023 HGBA1C 8.4 (H) 11/29/2022 Weight trend: has increased 4 lbs. Current diet: carb controlled, avoiding concentrated sugars Doing much better. Current exercise: none Current monitoring regimen: home blood tests - 4 times daily utilizing Getui johnny CGM. Download reviewed 05/18/24 Home blood sugar record: Any episodes of hypoglycemia? Occasionally, typically <1 time weekly. Aware of lows. CGM interpretation reveals goal range 62% of the time with infrequent lows. Spikes appear to occur after some meals, when likely overeating. CGM active 73% of the time. Average Glucose: 169; GMI: 7.4%; variabilities: 25.8. NOTES: Hgb A1c improved significantly to 7.3% from 9.2% 06/02. Patient currently on QID insulin. PLAN: See below Retinopathy: Positive: Background diabetic retinopathy and Laser Treatment Exam within last 12 months: yes Date: Store Administrative Assistant/Lang Interpreter: Other Ophthalmologic Conditions: None known Nephropathy: Negative Creat: 1.07 05/11/24 Lab Results Component Value Date CREATININE 1.01 12/02/2023 EXTEGFR 71 05/11/2024 EXTEGFRAFAME >60 12/27/2019 Microlbumin/creat ratio: No results found for: EXTMICROALBC Is patient on PATRICIA inhibitor or angiotensin II receptor julia? yes Lisinopril Peripheral Neuropathy: Positive Reports bilateral numbness and tingling in feet Autonomic Neuropathy: Negative Hypoglycemia unawareness. Senses low BG at <100 mg/dl. Other: Hyperlipidemia: Positive Currently taking: simvastatin (Zocor). LFT's WNL Lab Results Component Value Date AST 28 12/02/2023 ALT 17 12/02/2023 Lab Results Component Value Date EXTCHOL 133 12/27/2019 EXTTRIG 56 12/27/2019 EXTHDL 52 12/27/2019 EXTLDLCALC 70 12/27/2019 Hypertension: Positive. Currently taking: bumetanide (Bumex), lisinopril (Prinivil) and metoprolol (Lopressor, Toprol) BP: 136/69 Cardiac: Positive Atrial fibrillation. On eliquis. Experiencing chest pain No . 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 Healy Vascular: Following with Dr. Bill. History of PVD aortic aneurysm Feet: Last foot exam: 06/03 Follows with Podiatry: Yes Professor Of Theater: Dr. Arroyo History of foot ulceration: Yes, small lesion to the right foot distal to 5th toe. 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 Podiatry notes elevated limb loss risk score he does qualify for diabetic shoes. . Thyroid: Lab Results Component Value Date TSH 1.92 12/02/2023 Negative Other: from colon cancer March 2017. Had COVID-19 vaccine in [place]. Plan: 1. Rx changes: Adjust medications as below Humalog insulin: 6 units at breakfast; 6 units at lunch; 8 units at supper Lantus insulin: 23 units at bedtime Use as directed with Humalog insulin before meals and at bedtime. 151-200: 1 units fast acting insulin 201-250: 2 units fast acting insulin 251-300: 3 units fast acting insulin 301-350: 4 units fast acting insulin 351-400: 5 units fast acting insulin above 400: 6 units fast acting insulin Ozempic 1 mg weekly. Mr. Arnold would benefit from continued use of Goodybagstyle Johnny continuous glucose monitoring system. Patient has had Type 2 diabetes for 21 years. Complications include diabetic neuropathy and CAD Patient is currently managed with: insulin injections Patient has been checking their blood sugar 4 times per day Patient is positive for a history of reoccurring hypoglycemia <50. Patient is predisposed to hypoglycemia, and has had 2 hypoglycemic episodes in the last 7 days. Patient's most recent Hgb A1c was 7.5% on 06/03. Patient's HGb is <6.0% or >8.5% Patient currently takes insulin injections 4 times daily. Patient is negative for a history of hypoglycemic unawareness Patient has inadequate control despite compliance with multiple alterations in insulin doses/medication regimen. 2. Education: Reviewed ABCs of diabetes management (respective goals in parentheses): A1C (7.0-8.0), blood pressure (<130/80), and cholesterol (LDL <100). 3. Compliance at present is estimated to be fair. Efforts to improve compliance (if necessary) willbe directed at increased exercise. Also, will be directed at dietary modifications: Limit starches,carbohydrates and concentrated sugar sources 4. Follow up: 6 months 5. Record blood sugar readings as instructed. Call if BG consistently <70 or >250. [phone] Patient has been checking blood glucoses 4 times daily for the past 90 days. Patient needs to continue checking blood glucoses 4 times daily. Blood glucose readings are used to adjust medication or insulin doses for meals, monitor dietary compliance, and adjust for high or low blood glucoses by patient on a daily basis. Blood glucose readings are reviewed at office visits for adjustment in medication regimen and assistance with dietary management, and other self- management issues including exercise, etc. Prognosis: Good. Duration of need for diabetes testing equipment: Permanent #150 strips/month prescribed. 6. Bring blood sugar meter to follow up appointment. No orders of the defined types were placed in this encounter. documented in this [id number] NoteAssessment & Plan: 1. 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, bilateral legs (HCC) 2. PAD (peripheral artery disease) (HCC) 3. Persistent atrial fibrillation (HCC) 4. halfway current use of anticoagulant 5. Type 2 diabetes mellitus with diabetic peripheral angiopathy and gangrene, with long-term current use of insulin (HCC) 6. Obesity (BMI 30-39.9) Plan: At the present time, Mr. Arnold is stable over describes to his vascular status. He has no ulcers or tissue loss though he does have a couple small abrasions just at the left medial malleolus that occurred when he was scratching his feet. They are healing satisfactorily, but overall he is doing well. He started on Ozempic and he is exercising on a regular basis and continues his weight which has helped control his diabetes. He has noticed that his activity level is increased with decreased claudication symptoms since he is exercising and losing weight. He continues to do well and overall is stable. His arterial testing today is unchanged from 2022, so I think a conservative course is appropriate. We will have him follow-up in approxi-9 months and keep you informed. We appreciate the opportunity to participate in his care. Follow Up Ordered: Return in about 9 months (around 01/24/2025) for Recheck in the [place] office. Subjective: Andrew Arnold is a 78 y.o. male seen in the office today for follow up regarding PAD with claudication. Mr. Arnold (birthdate 1945) was seen in the [place] office on April 26, 2024. It has been approximately 3 months since he is seen last. He states he is doing well. He was started on Ozempic and has a glucose monitor which is helping significantly with weight loss as well as diabetic management. He is exercising on a more regular basis with an elliptical for at least 30 minutes a day. He still claudicate's of both legs, but there not as severe and not as acute as they have been in the past. He is very happy with his improved clinical status. He continues to tolerate his medications satisfactorily including cilostazol. He denies any ulcers, tissue loss or gangrene or rest pain or evidence of critical limb ischemia. Histories: Past Medical History: Diagnosis Date Aortic valve calcification Arrhythmia Atrial fibrillation (HCC) after CABG CAD (coronary artery disease) 3 Vessel Claudication (HCC) Left lower extremity symptoms Fractures Hypertension Mitral valve annular calcification Myocardial infarction (HCC) 08/02/2015 Non-ST Obesity Oral cancer (HCC) Pilonidal cyst Subdural hematoma (HCC) 2008 minor trauma while on Plavix at the time. Tendonitis of wrist, right TIA (transient ischemic attack) 2007 was put on plavix then had subdural one year later. Vitreous hemorrhage of left eye (HCC) Past Surgical History: Procedure Laterality Date AORTIC VALVE REPLACEMENT CARDIAC CATHETERIZATION CARDIAC CATHETERIZATION N/A 12/25/2021 Procedure: Coronary Angiogram; Surgeon: Adilson Stone MD; Location: [facility]; Service: Cardiovascular CARDIAC CATHETERIZATION N/A 12/25/2021 Procedure: Left Heart Cath w/Grafts; Surgeon: Adilson Stone MD; Location: [facility]; Service: Cardiovascular CARDIAC VALVE REPLACEMENT CORONARY ARTERY BYPASS GRAFT 08/13/2015 3 Vessel/YEUNG to the LAD/SVG to obtuse marginal/SVG to a PDA MOUTH SURGERY 2007 Oral cancer TENDON RELEASE DEQUERVAINS Right 12/26/2018 Procedure: TENDON RELEASE DE QUERVAINS RIGHT; Surgeon: Jenaro Oquendo MD; Location: Main OR; Service: Orthopedic Family History Problem Relation Age of Onset COPD Mother Diabetes Father Stroke Paternal Grandmother Social History Tobacco Use Smoking status: Former Current packs/day: 0.00 Average packs/day: 3.0 packs/day for 12.0 years (36.0 ttl pk-yrs) Types: Cigarettes Start date: 08/27/1961 Quit date: 08/27/1973 Years since quittin.6 Smokeless tobacco: Former Types: Chew Vaping Use Vaping status: Never Used Substance Use Topics Alcohol use: Not Currently Alcohol/week: 0.0 standard drinks of alcohol Drug use: No Current Outpatient Medications Medication Sig Dispense Refill acetaminophen (TYLENOL) 325 MG tablet Take 2 (two) tablets (650 mg total) by mouth every 6 (six) hours as needed for pain (1-2 tablets) . apixaban (ELIQUIS) 5 mg Tab Take 1 (one) tablet (5 mg total) by mouth 2 (two) times a day . 60 tablet 11 ascorbic Acid (VITAMIN C) 500 mg CpER Take 1 (one) capsule (500 mg total) by mouth every other day . aspirin 81 MG EC tablet Take 1 tablet (81 mg total) by mouth daily. 90 tablet 3 bumetanide (BUMEX) 1 MG tablet Take 0.5 (one-half) tablet (0.5 mg total) by mouth every other day . 23 tablet 1 cilostazoL (PLETAL) 100 MG tablet TAKE 1 TABLET BY MOUTH TWICE DAILY ON AN EMPTY STOMACH 180 tablet 11 docusate sodium (COLACE) 100 MG capsule Take 1 (o (more content not included)... [facility]09-06-2024 Telephone encounter Note* Telephone Encounter - Rosi Casarez RN - 03/16/2024 9:38 AM EDT LAST OV 11/29/23. NEXT OV SCHEDULED FOR 06/06/24. [id number] Miscellaneous Notes* Telephone Encounter - Rosi Casarez RN - 03/16/2024 9:38 AM EDT LAST OV 11/29/23. NEXT OV SCHEDULED FOR 06/06/24. documented in this [id number] Telephone encounter Note* Telephone Encounter - Rosi Casarez RN - 03/16/2024 9:36 AM EDT LAST OV 11/29/23. NEXT OV SCHEDULED FOR 06/06/24. [id number] Miscellaneous Notes* Telephone Encounter - Rosi Casarez RN - 03/16/2024 9:36 AM EDT LAST OV 11/29/23. NEXT OV SCHEDULED FOR 06/06/24. documented in this [id number] NoteNail care Patient is a pleasant 78 year-old male who comes in today for nail care. His geriatric status and diabetes is managed by primary including Dr. Foreman. Comes in today for nail care. Physical Vascular: DP pulses are palpable 2-4. PT pulses are nonpalpable due to edema. +1 foot and ankle edema. Skin is shiny atrophic dysvascular with absence of hair growth. Feet are warm to cool proximal to distal. Nails left foot [id number] and right foot [id number] are elongated thickened mycotic crumbling dystrophic. Neuro: Light blunted at 3-6 sites bilaterally. Babinski's is blunted. Musculoskeletal: Can easily wiggle toes not any clicking or catching. Mild hammering of the distal digits 2 through 4 right and left foot with some pes planovalgus foot type. 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 -Given his elevated limb loss risk score he does qualify for nail care. Procedure: After timeout consent was performed, sharply debrided and debulk in height and length 10 onychomycotic nails with a sharp around nail nippers consistent with a q8 modifier. Follow-up in 3 months AUTHENTICATED BY HOLA ARROYO JR., ON 02/22/2024 14:22:30[facility]08-14-2024 History of Present illness Narrative* Hola Arroyo Jr., DPM - 02/22/2024 2:21 PM EDT Nail care Patient is a pleasant 78 year-old male who comes in today for nail care. His geriatric status and diabetes is managed by primary including Dr. Foreman. Comes in today for nail care. Physical Vascular: DP pulses are palpable 2-4. PT pulses are nonpalpable due to edema. +1 foot and ankle edema. Skin is shiny atrophic dysvascular with absence of hair growth. Feet are warm to cool proximal to distal. Nails left foot [phone] and right foot 91343 are elongated thickened mycotic crumbling dystrophic. Neuro: Light blunted at 3-6 sites bilaterally. Babinski's is blunted. Musculoskeletal: Can easily wiggle toes not any clicking or catching. Mild hammering of the distal digits 2 through 4 right and left foot with some pes planovalgus foot type. 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 -Given his elevated limb loss risk score he does qualify for nail care. Procedure: After timeout consent was performed, sharply debrided and debulk in height and length 10onychomycotic nails with a sharp around nail nippers consistent with a q8 modifier. Follow-up in 3 months documented in this [id number] Telephone encounter Note* Telephone Encounter - Jeri Mccallum LPN - 02/06/2024 8:06 AM EDT Last OV 11/29/23. Next OV 05/18/24. [id number] Miscellaneous Notes* Telephone Encounter - Jeri Mccallum LPN - 02/06/2024 8:06 AM EDT Last OV 11/29/23. Next OV 05/18/24. documented in this [id number] History of Present illness Narrative* Sanju Bill III, - 01/26/2024 9:09 AM EDT Assessment & Plan: 1. 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, bilateral legs(HCC) US Doppler ankle/brachial index 2. PAD (peripheral artery disease) (HCC) US Doppler ankle/brachial index 3. 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 Obesity (BMI 30-39.9) Plan: At the present time, Mr. Arnold is stable with regards to his vascular disease. He denies any night pain or rest pain or gangrene. He does state that he claudicate somewhat, but is not quite as severeas it has been in the past. He feels that part of this disease changed his lifestyle status with regards to distances of ambulation. However, he is extremely reluctant to pursue any aggressive surgical intervention since he is feels that his lifestyle is not really cramped or limited based on hisPAD and claudication symptomatology. I had a long discussion with him regarding future testing and what future intervention would possibly be such as bypass surgery rather than interventional endovascular therapies. He feels that it 78, he is really not eager to pursue anything aggressively, which I feel is appropriate since he does not have any limb risk or tissue loss. I did explain that if things deteriorate in the future, that would probably push us to move forward with aggressive therapies, but at this point I think a conservative course is appropriate, especially in light of his desires to not be aggressive. We will see him back in the office in 4 months and obtain an ARIELLE at that time. If there are any questions or concerns or changes in his status before his next visit, he is to contact us. We will keep you informed, and we appreciate the opportunity to participate in his care. Follow Up Ordered: Return in about 4 months (around 05/28/2024) for Recheck with testing. Subjective: Andrew Arnold is a 78 y.o. male seen in the office today for follow up regarding PAD with claudication symptoms. Mr. Arnold (birthdate 1945) was seen in the [place] office on January 26, 2024. It has been approximately 3 months since he was seen last. He states he is doing fairly well. He states he is lost a significant amount of weight, though is just 5 pounds lower than it was last visit. He is toleratingthe weight loss with his medications (Ozempic among others). He denies any night pain or rest pain or gangrene. He still claudicate somewhat with his lower extremities, but he does states that it is not as severe and it is not as early-onset as it has been in the past. He attributes this to weight loss as well as some mild lifestyle changes with decreasing ambulation, growing grocery shopping, being out and about, etc. He is relatively happy with his general condition with weight loss and diabetic management. He denies any ulcers or tissue loss or gangrene or evidence of deterioration, and hecontinues to be extremely reluctant to pursue and anxious regarding any interventional therapies such as bypass surgery or endovascular therapies. He continues to be tobacco free. He continues to tolerate his medications including Eliquis for his atrial fibrillation as well as Pletal for his PAD. He does comment that the previous abrasion of his right foot is completely healed, though he does have some small dry skin changes. Histories: Past Medical History: Diagnosis Date Aortic valve calcification Arrhythmia Atrial fibrillation (HCC) after CABG CAD (coronary artery disease) 3 Vessel Claudication (HCC) Left lower extremity symptoms Fractures Hypertension Mitral valve annular calcification Myocardial infarction (HCC) 08/02/2015 Non-ST Obesity Oral cancer (HCC) Pilonidal cyst Subdural hematoma ([facility]) 2008 minor trauma while on Plavix at the time. Tendonitis of wrist, right TIA (transient ischemic attack) 2007 was put on plavix then had subdural one year later. Vitreous hemorrhage of left eye (HCC) Past Surgical History: Procedure Laterality Date AORTIC VALVE REPLACEMENT CARDIAC CATHETERIZATION CARDIAC CATHETERIZATION N/A 12/25/2021 Procedure: Coronary Angiogram; Surgeon: Adilson Stone MD; Location: [facility]; Service: Cardiovascular CARDIAC CATHETERIZATION N/A 12/25/2021 Procedure: Left Heart Cath w/Grafts; Surgeon: Adilson Stone MD; Location: [facility]; Service: Cardiovascular CARDIAC VALVE REPLACEMENT CORONARY ARTERY BYPASS GRAFT 08/13/2015 3 Vessel/YEUNG to the LAD/SVG to obtuse marginal/SVG to a PDA MOUTH SURGERY 2007 Oral cancer TENDON RELEASE DEQUERVAINS Right 12/26/2018 Procedure: TENDON RELEASE DE QUERVAINS RIGHT; Surgeon: Jenaro Oquendo MD; Location: Main OR; Service: Orthopedic Family History Problem Relation Age of Onset COPD Mother Diabetes Father Stroke Paternal Grandmother Social History Tobacco Use Smoking status: Former Current packs/day: 0.00 Average packs/day: 3.0 packs/day for 12.0 years (36.0 ttl pk-yrs) Types: Cigarettes Start date: 08/27/1961 Quit date: 08/27/1973 Years since quittin.4 Smokeless tobacco: Former Types: Chew Vaping Use Vaping status: Never Used Substance Use Topics Alcohol use: Not Currently Alcohol/week: 0.0 standard drinks of alcohol Drug use: No Current Outpatient Medications Medication Sig Dispense Refill acetaminophen (TYLENOL) 325 MG tablet Take 2 (two) tablets (650 mg total) by mouth every 6 (six) hours as needed for pain (1-2 tablets) . apixaban (ELIQUIS) 5 mg Tab Take 1 (one) tablet (5 mg total) by mouth 2 (two) times a day . 60 tablet 11 ascorbic Acid (VITAMIN C) 500 mg CpER Take 1 (one) capsule (500 mg total) by mouth every other day . aspirin 81 MG EC tablet Take 1 tablet (81 mg total) by mouth daily. 90 tablet 3 blood sugar diagnostic (glucose blood) strips Dx code E11.9 use to check BG 4x daily. 150 strip 11 blood sugar diagnostic (RELION PRIME TEST STRIPS) strips E11.65 Use as directed 4 times per day. 150 strip 11 bumetanide (BUMEX) 1 MG tablet Take 0.5 (one-half) tablet (0.5 mg total) by mouth every other day .22 tablet 1 cilostazoL (PLETAL) 100 MG tablet TAKE 1 TABLET BY MOUTH TWICE DAILY ON AN EMPTY STOMACH 180 [id number] docusate sodium (COLACE) 100 MG capsule Take 1 (one) capsule (100 mg total) by mouth 2 (two) times a day as needed . escitalopram oxalate (LEXAPRO) 10 MG tablet Take 1 (one) tablet (10 mg total) by mouth nightly . 30tablet 11 flash glucose sensor (FreeStyle Johnny 2 Sensor) Kit 1 kit by Miscellaneous route every 14 (fourteen) days Use as directed to apply new sensor . 2 kit 11 insulin glargine (Lantus U-100 Insulin) 100 unit/mL injection Inject 25 (twenty five) Units under the skin nightly . 10 mL 11 insulin lispro (AdmeLOG,HumaLOG) 100 unit/mL injection Inject 6 (six) Units to 12 (twelve) Units under the skin 3 (three) times a day before meals . 20 mL 11 insulin syringe-needle U-100 0.3 mL 31 gauge x 5/16 Syrg Use as directed QID . 400 each 3 lancets Misc Use to check BG QID SolusV2 brand Dx E11.65. 200 each 11 lisinopriL (PRINIVIL,ZESTRIL) 10 MG tablet Take 1 (one) tablet (10 mg total) by mouth daily . 90 tablet 3 metoprolol succinate (TOPROL-XL) 25 MG 24 hr tablet Take 1 (one) tablet (25 mg total) by mouth daily . 90 tablet 1 pen needle, diabetic 31 gauge x 3/16 Ndle Use as directed 4 times daily. . 400 each 3 potassium chloride SA (K-DUR,KLOR-CON M10) 10 MEQ tablet Take 1 (one) tablet (10 mEq total) by mouth every other day . 45 tablet 3 psyllium (METAMUCIL) 0.52 gram capsule Take 2 (two) capsules (1.04 g total) by mouth as needed . semaglutide (Ozempic) 1 mg/dose (4 mg/3 mL) Pen Inject 0.75 mL (1 mg total) under the skin once a week . 9 mL 3 simvastatin (ZOCOR) 40 MG tablet Take 1 (one) tablet (40 mg total) by mouth at bedtime . 90 tablet 3 No current facility-administered medications for this visit. Allergies Allergen Reactions Pioglitazone GI Intolerance ROS Objective: Vitals: Vitals: 01/26/24 0923 01/26/24 0926 BP: 127/72 110/70 BP Location: Right arm Left arm Patient Position: Sitting Sitting Pulse: 81 SpO2: 97% Weight: 102.1 kg (225 lb) Physical Exam Vitals reviewed. Constitutional: General: He is awake. Appearance: Normal appearance. He is well-developed. He is obese. HENT: Head: Normocephalic. Eyes: General: Lids are normal. Neck: Vascular: No JVD. Cardiovascular: Rate and Rhythm: Normal rate. Rhythm irregularly irregular. Pulses: Decreased pulses. Femoral pulses are 2+ on the right side and 2+ on the left side. Popliteal pulses are 0 on the right side and 0 on the left side. Dorsalis pedis pulses are 0 on the right side and 0 on the left side. Posterior tibial pulses are 0 on the right side and 0 on the left side. Heart sounds: Normal heart sounds. No murmur heard. Comments: Well-healed vein harvesting incision is noted the right lower extremity. Pulmonary: Effort: Pulmonary effort is normal. Abdominal: General: Abdomen is protuberant. Palpations: Abdomen is not rigid. Comments: Limited exam due to body habitus and obesity. Musculoskeletal: General: Normal range of motion. Cervical back: Neck supple. Right foot: Normal capillary refill. Abnormal pulse. Left foot: Normal capillary refill. Abnormal pulse. Feet: Right foot: Skin integrity: Dry skin present. No skin breakdown. Left foot: Skin integrity: Dry skin present. No skin breakdown. Skin: General: Skin is warm and dry. Capillary Refill: Capillary refill takes 2 to 3 seconds. Findings: No abrasion. Comments: Anhidrosis as well as hair loss pattern changes are noted in bilateral feet and lower extremities. Neurological: General: No focal deficit present. Mental Status: He is alert and oriented to person, place, and time. Sensory: Sensory deficit (Decreased sensation to fine touch bilateral extremities consistent with diabetic neuropathy.) present. Motor: Motor function is intact. Coordination: Coordination is intact. Gait: Gait is intact. Psychiatric: Attention and Perception: Attention and perception normal. Mood and Affect: Mood and affect normal. Speech: Speech normal. Behavior: Behavior normal. Behavior is cooperative. Thought Content: Thought content normal. Lab Review: The following labs were reviewed and within the chart CT scan of the abdomen, pelvis, lower extremities performed on July 14, 2023 indicates severe atherosclerotic disease in bilateral extremities with occlusion of the distal left SFA and popliteal artery. Diminutive in calcified two-vessel runoff bilateral lower extremities in the calves. Aorta andiliacs are without aneurysm, but significant atherosclerotic disease is noted. Bilateral ankle-brachial indices performed on June 30, 2023 indicate moderate lower extremity arterial disease bilaterally. His right ankle ARIELLE 0.63, and his left ankle ARIELLE 0.56. This is essentially unchanged compared to his previous study from March 2022. documented in this [id number] History of Present illness Narrative* Santiago Dozier, PT - 01/24/2024 7:45 AM EDT [facility] OUTPATIENT REHABILITATION DAILY TREATMENT NOTE Today's Date 01/24/2024 Patient Name: Andrew Arnodl Date of : 1945 Current Visit #: 9 Authorized Visits: [id number] Case Name: Balance History: Pre-Treatment Pain Scale: 0 Symptoms: stabilized Functional Diagnosis: 1. At high risk for falls Clinical Information: Subjective: Pt reports no pain upon arrival and states he is feeling better with his balance and mobility. He notices significant improvement in ability to bend down without losing his balance. 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 Supervisor Object From The Floor From a Standing Position 4 Turning to Look Behind Over Left and Right Shoulders While Standing 4 Turn [address] Alternate Foot on Step or Stool While Standing Unsupported 3 Standing Unsupported One Foot Infront 3 Standing on One Leg 1 Hall Balance Scale Score 49 Out of a Possible 56 Functional Gait Assessment (FGA) - 01/24/24 0813 Functional Gait Assessment Gait Level Surface 3 Change in gait speed 3 Gait with horizontal head turns 2 Gait with vertical head turns 2 Gait and pivot turn 2 Step over obstacle 1 Gait with narrow base of support 2 Gait with eyes closed 2 Ambulating backwards 2 Steps 3 FGA Score 22 Treatments: Physical Therapy Exercise Log - 01/24/24 0744 OTHER Precautions/Contraindications Supervising PT: Ward Notes Visit 7: 7:46 - 8:24 Therapeutic Exercise (22748) Intervention scifit lvl 4 x5 mins Parameters Standing calf stretch 20''x3 - NT Intervention sink ex on airex yellow miniband x10 bilat. (single or bilat. UE support as needed) - NT Parameters BOSU lunges x10 alt. - NT Intervention 6 hurdles fwd/lat in // bars 3x4 Parameters NBOS EC x1min on airex x 1min Intervention tandem and retro ambulation 15ft x4 Parameters Paloff press/walk outs L3 x10 - NT Intervention SLS (min UE A) 20''x3 With Airex 20''x3 PT Treatment Times Therex Total Time 13 Neuro Re-Ed Total Time 25 Direct Treatment Time 38 Total Treatment Time 38 Goals: Physical Therapy NeuroPT: To be completed by discharge: Patient will ascend/descend 4 steps with LRAD and with single UE handrail. Patient will demonstrate appropriate & adequate strategies to maintain & regain balance while performing functional activities in standing as demonstrated by clinically significant change in FGA score or FGA score of >23/30. Pt will ambulate demonstrating ability to scan environment during gait over even and uneven terrainwith maintenance of adequate speed, and no path deviations or LOB Patient will demonstrate appropriate & adequate strategies to maintain & regain balance while performing functional activities in standing as demonstrated by clinically significant change in Hall Balance score or Hall Balance score of >50/56 Patient will complete the TUG Test in 13 seconds or less to indicate improved functional strength and mobility. Patient will demonstrate independence with ongoing home exercise program for long-term maintenance of balance and strength. Patient will increase FOTO score to achieve expected clinical change to allow for improved patient function based on a patient reported outcome measure. Patient Education: Verbal HEP and HEP Adherence with patient verbalized understanding. Post-Treatment Pain Scale: 0 Assessment: Patient had an expected response to treatment. Skilled Intervention demonstrated by modifications of treatment per exercise log including assessment of patient's response and safety interventions per exercise log. Progress towards goals as expected. Plan: Discharge Santiago Dozier PT State License, [id number] documented in this [id number] History of Present illness Narrative* Alvarado Tinajero PTA - 01/19/2024 7:45 AM EDT [facility] OUTPATIENT REHABILITATION DAILY TREATMENT NOTE Today's Date 01/19/2024 Patient Name: Andrew Arnold Date of : 1945 Current Visit #: 8 Authorized Visits: [id number] Case Name: No linked episodes History: Pre-Treatment Pain Scale: 1 Symptoms: stabilized Functional Diagnosis: 1. Balance disorder Clinical Information: Subjective: Pt reports low pain coming in today and min soreness after LV Objective Min A with eyes closed static balance Treatments: Physical Therapy Exercise Log - 01/19/24 0748 OTHER Precautions/Contraindications Supervising PT: Ward Notes Visit [phone] Therapeutic Exercise (44670) Intervention scifit lvl 4 x5 mins Parameters Standing calf stretch 20''x3 Intervention sink ex on airex yellow miniband x10 bilat. (single or bilat. UE support as needed) Parameters BOSU lunges x10 alt. Intervention 6 hurdles fwd/lat in // bars 3x4 Parameters NBOS EC x1min on airex x 1min Intervention tandem and retro ambulation 15ft x4 Parameters Paloff press/walk outs L3 x10 Intervention SLS (min UE A) 20''x3 With Airex 20''x3 Parameters -- PT Treatment Times Therex Total Time 20 Neuro Re-Ed Total Time 20 Direct Treatment Time 40 Total Treatment Time 45 Goals: Physical Therapy Ortho Goals: No data was found Physical Therapy Neuro Goals: No data was found Patient Education: Verbal HEP with patient verbalized understanding. Post-Treatment Pain Scale: 1 Assessment: Patient had an expected response to treatment. Skilled Intervention demonstrated by modifications of treatment per exercise log including assessment of patient's response and safety interventions per exercise log. Progress towards goals as expected. Plan for Next Visit: Treatment Visit with focus on DC Alvarado Tinajero PTA STATE LICENSE, [id number] documented in this [id number] History of Present illness Narrative* Lupe Kunz PTA - 01/17/2024 7:45 AM EDT [facility] OUTPATIENT REHABILITATION DAILY TREATMENT NOTE Today's Date 01/17/2024 Patient Name: Andrew Arnold Date of : 1945 Current Visit #: 7 Authorized Visits: [id number] Case Name: Balance History: Pre-Treatment Pain Scale: 1 Symptoms: gradually improved Functional Diagnosis: 1. At high risk for falls Clinical Information: Subjective: He is feeling somewhat stronger. He doesn't use any AD throughout the day. Objective Add ambulatory activities next visit. Added paloff press with fair tolerance. Treatments: Physical Therapy Exercise Log - 01/17/24 1059 OTHER Precautions/Contraindications Supervising PT: Ward Notes Visit [phone] Therapeutic Exercise (56831) Intervention scifit lvl 4 x5 mins Parameters Standing calf stretch 20''x3 Intervention sink ex on airex x10 bilat. (single or bilat. UE support as needed) Parameters BOSU lunges x10 alt. Parameters 6 hurdles fwd/lat in // bars 3x4 NT Intervention lat. ambulation 15x2 NT Parameters tandem and retro ambulation 15ft x4 NT Intervention Blaze Pods - single leg (distraction), reaching (distraction), Walking (home base) 1min x2 each NT Parameters Paloff press/walk outs L3 x10 PT Treatment Times Therex Total Time 44 Direct Treatment Time 44 Total Treatment Time 44 Goals: Physical Therapy Ortho Goals: No data was found Patient Education: Quality of movement with patient demonstrated understanding. Post-Treatment Pain Scale: 1 Assessment: Patient had an expected response to treatment. Skilled Intervention demonstrated by modifications of treatment per exercise log including increased load and safety interventions per exercise log. Progress towards goals as expected. Plan for Next Visit: Treatment Visit with focus on balance exercises Lupe Kunz PTA STATE LICENSE, [id number] documented in this [id number] History of Present illness Narrative* Alvarado Tinajero PTA - 01/10/2024 7:45 AM EDT [facility] OUTPATIENT REHABILITATION DAILY TREATMENT NOTE Today's Date 01/10/2024 Patient Name: Andrew Arnold Date of : 1945 Current Visit #: 6 Authorized Visits: [id number] Case Name: Balance History: Pre-Treatment Pain Scale: 1 Symptoms: stabilized Functional Diagnosis: 1. At high risk for falls Clinical Information: Subjective: pt reports he is feeling pretty good today, min soreness in LB after LV Objective Pt appeared more fatigued and challenged with scifit today, no parameters modified and cued to reduce steps/min Treatments: Physical Therapy Exercise Log - 01/10/24 0748 OTHER Precautions/Contraindications Supervising PT: Ward Notes Visit [phone] Therapeutic Exercise (34250) Intervention scifit lvl 4 x5 mins Parameters Standing calf stretch 20''x3 Intervention sink ex on airex x10 bilat. (single or bilat. UE support as needed) Parameters BOSU lunges x10 alt. Intervention -- Parameters 6 hurdles fwd/lat in // bars 3x4 Intervention lat. ambulation 15x2 Parameters tandem and retro ambulation 15ft x4 Intervention Blaze Pods - single leg (distraction), reaching (distraction), Walking (home base) 1min x2 each PT Treatment Times Therex Total Time 20 Neuro Re-Ed Total Time 20 Direct Treatment Time 40 Total Treatment Time 45 Goals: Physical Therapy Ortho Goals: No data was found Physical Therapy Neuro Goals: To be completed by discharge: Patient will ascend/descend 4 steps with LRAD and with single UE handrail.Patient will demonstrate appropriate & adequate strategies to maintain & regain balancewhile performing functional activities in standing as demonstrated by clinically significant changein FGA score or FGA score of >23/30.Pt will ambulate demonstrating ability to scan environment du ring gait over even and uneven terrain with maintenance of adequate speed, and no path deviations or LOBPatient will demonstrate appropriate & adequate strategies to maintain & regain balancewhile performing functional activities in standing as demonstrated by clinically significant changein Hall Balance score or Hall Balance score of >50/56 Patient will complete the TUG Test in 13 seconds or less to indicate improved functional strength and mobility.Patient will demonstrate independence with ongoing home exercise program for long-term maintenance of balance and strength.Patient will increase FOTO score to achieve expected clinical change to allow for improved patient function based on a patient reported outcome measure. Patient Education: Verbal HEP with patient verbalized understanding. Post-Treatment Pain Scale: 1 Assessment: Patient had an expected response to treatment. Skilled Intervention demonstrated by modifications of treatment per exercise log including increased cueing and increased rest breaks and safety interventions per exercise log. Progress towards goals as expected. Plan for Next Visit: Treatment Visit with focus on progressing as tolerated Alvarado Tinajero PTA STATE LICENSE, [id number] documented in this [id number] History of Present illness Narrative* Alvarado Tinajero PTA - 01/05/2024 7:45 AM EDT [facility] OUT[facility]IENT REH[facility]IL[facility] DAILY TREATMENT NOTE Today's Date 01/05/2024 Patient Name: Andrew Arnold Date of : 1945 Current Visit #: 5 Authorized Visits: 199 Case Name: Balance History: Pre-Treatment Pain Scale: 1 Symptoms: stabilized Functional Diagnosis: 1. At high risk for falls Clinical Information: Subjective: Pt reports he is wearing new shoes today, min soreness after LV Objective Cued for completion throughout with fair return Treatments: Physical Therapy Exercise Log - 01/05/24 0744 OTHER Precautions/Contraindications Supervising PT: Ward Notes Visit [phone] Therapeutic Exercise (86696) Intervention scifit lvl 4 x5 mins Parameters Standing calf stretch 20''x3 Intervention sink ex on airex x10 bilat. (single or bilat. UE support as needed) Parameters BOSU lunges x10 alt. Intervention rockerboard fwd/lat x15 each Parameters 6 hurdles fwd/lat in // bars 3x4 Intervention lat. ambulation 15x2 Parameters tandem and retro ambulation 15ft x4 Intervention Blaze Pods - single leg (distraction), reaching (distraction), Walking (home base) 1min x2 each Parameters -- PT Treatment Times Therex Total Time 20 Neuro Re-Ed Total Time 20 Direct Treatment Time 40 Total Treatment Time 46 Goals: Physical Therapy Ortho Goals: No data was found Physical Therapy Neuro Goals: To be completed by discharge: Patient will ascend/descend 4 steps with LRAD and with single UE handrail.Patient will demonstrate appropriate & adequate strategies to maintain & regain balancewhile performing functional activities in standing as demonstrated by clinically significant changein FGA score or FGA score of >23/30.Pt will ambulate demonstrating ability to scan environment du ring gait over even and uneven terrain with maintenance of adequate speed, and no path deviations or LOBPatient will demonstrate appropriate & adequate strategies to maintain & regain balancewhile performing functional activities in standing as demonstrated by clinically significant changein Hall Balance score or Hall Balance score of >50/56 Patient will complete the TUG Test in 13 seconds or less to indicate improved functional strength and mobility.Patient will demonstrate independence with ongoing home exercise program for long-term maintenance of balance and strength.Patient will increase FOTO score to achieve expected clinical change to allow for improved patient function based on a patient reported outcome measure. Patient Education: Verbal HEP with patient verbalized understanding. Post-Treatment Pain Scale: 1 Assessment: Patient had an expected response to treatment. Skilled Intervention demonstrated by modifications of treatment per exercise log including assessment of patient's response and safety interventions per exercise log. Progress towards goals as expected. Plan for Next Visit: Treatment Visit with focus on progressing as tolerated Alvarado Tinajero PTA STATE LICENSE, [id number] documented in this [id number] History of Present illness Narrative* Kar Medel PTA - 01/03/2024 7:45 AM EDT [facility] OUTPATIENT REHABIL[facility]ATION DAILY TREATMENT NOTE Today's Date 01/03/2024 Patient Name: Andrew Arnold Date of : 1945 Current Visit #: 4 Authorized Visits: 199 Case Name: Balance History: Pre-Treatment Pain Scale: 0 Symptoms: gradually improved Functional Diagnosis: 1. At high risk for falls Clinical Information: Subjective: Pt reports feeling better in shoulders and can bend over better, no recent falls. Objective Treatments: Physical Therapy Exercise Log - 01/03/24 0738 OTHER Precautions/Contraindications Supervising PT: Ward Notes Visit 3: 7:40 - 8:30 Therapeutic Exercise (56306) Intervention scifit lvl 4 x5 mins Parameters sink ex on airex x10 bilat. (single or bilat. UE support as needed) Intervention bilat. tandem stance on airex x1 min Parameters BOSU lunges x10 alt. Intervention rockerboard fwd/lat x15 each Parameters 6 hurdles fwd/lat in // bars 3x4 Intervention lat. ambulation 15x2 Parameters tandem and retro ambulation 15ft x4 Intervention Blaze Pods - single leg (distraction), reaching (distraction), Walking (home base) 1min x2 each PT Treatment Times Therex Total Time 45 Direct Treatment Time 45 Total Treatment Time 45 Goals: Physical Therapy Ortho Goals: No data was found Patient Education: Quality of movement with patient demonstrated understanding. Post-Treatment Pain Scale: 0 Assessment: Patient had an expected response to treatment. Skilled Intervention demonstrated by modifications of treatment per exercise log including increased load and safety interventions per exercise log. Progress towards goals as expected. Plan for Next Visit: Treatment Visit with focus on balance and strengthening progressions Kar Medel PTA STATE LICENSE, [id number] documented in this [id number] History of Present illness Narrative* Santiago Dozier, PT - 12/29/2023 7:45 AM EDT [facility] OUTPATIENT REHABIL[facility]ATION DAILY TREATMENT NOTE Today's Date 12/29/2023 Patient Name: Andrew Arnold Date of : 1945 Current Visit #: 3 Authorized Visits: 199 Case Name: Balance History: Pre-Treatment Pain Scale: 0 Symptoms: gradually improved Functional Diagnosis: 1. At high risk for falls Clinical Information: Subjective: Pt reports good tolerance following last session. He noticed a little ache in the stomach muscles the following morning but is feeling pretty good today. Objective Treatments: Physical Therapy Exercise Log - 12/29/23 0746 OTHER Precautions/Contraindications Supervising PT: Ward Notes Visit 2: 7:47 - 8:28 Therapeutic Exercise (60580) Intervention scifit lvl 3 x5 mins Parameters sink ex on airex x10 bilat. (single or bilat. UE support as needed) Intervention bilat. tandem stance on airex x1 min Parameters BOSU lunges x10 alt. Intervention rockerboard fwd/lat x15 each Parameters 6 hurdles fwd/lat in // bars 3x4 Intervention lat. ambulation 15x2 Parameters tandem and retro ambulation 15ft x4 Intervention amulation with horz and vert. head turns 30ft x2 each PT Treatment Times Therex Total Time 20 Neuro Re-Ed Total Time 21 Direct Treatment Time 41 Total Treatment Time 41 Goals: Physical Therapy NeuroPT: To be completed by discharge: Patient will ascend/descend 4 steps with LRAD and with single UE handrail. Patient will demonstrate appropriate & adequate strategies to maintain & regain balance while performing functional activities in standing as demonstrated by clinically significant change in FGA score or FGA score of >23/30. Pt will ambulate demonstrating ability to scan environment during gait over even and uneven terrainwith maintenance of adequate speed, and no path deviations or LOB Patient will demonstrate appropriate & adequate strategies to maintain & regain balance while performing functional activities in standing as demonstrated by clinically significant change in Hall Balance score or Hall Balance score of >50/56 Patient will complete the TUG Test in 13 seconds or less to indicate improved functional strength and mobility. Patient will demonstrate independence with ongoing home exercise program for long-term maintenance of balance and strength. Patient will increase FOTO score to achieve expected clinical change to allow for improved patient function based on a patient reported outcome measure. Patient Education: Quality of movement and Diagnosis and recovery specific education with patient verbalized understanding. Post-Treatment Pain Scale: 1 Assessment: Patient had an expected response to treatment. Skilled Intervention demonstrated by modifications of treatment per exercise log including increased mobility and increased volume and safety interventions per exercise log. Progress towards goals as expected. Plan for Next Visit: Treatment Visit with focus on balance and mobility progressions Santiago Dozier PT State License, [id number] documented in this [id number] History of Present illness Narrative* Santiago Dozier PT - 12/27/2023 7:45 AM EDT [facility] OUTPATIENT REHABIL[facility]ATION DAILY TREATMENT NOTE Today's Date 12/27/2023 Patient Name: Andrew Arnold Date of : 1945 Current Visit #: 2 Authorized Visits: 199 Case Name: Balance History: Pre-Treatment Pain Scale: 0 Symptoms: about the same Functional Diagnosis: 1. At high risk for falls Clinical Information: Subjective: Pt denies recent LOB or falls Objective Treatments: Physical Therapy Exercise Log - 12/27/23 0751 OTHER Precautions/Contraindications Supervising PT: Ward Notes Visit 1: 7:53 - 8:28 Therapeutic Exercise (59638) Parameters sink ex on airex x10 bilat. (single or bilat. UE support as needed) Intervention bilat. tandem stance on airex x1 min Parameters BOSU lunges x10 alt. Intervention rockerboard fwd/lat x15 each Parameters 6 hurdles fwd. in // bars 3x4 Intervention lat. ambulation 15x2 Parameters tandem and retro ambulation 15ft x4 Intervention amulation with horz and vert. head turns 30ft x2 each PT Treatment Times Therex Total Time 15 Neuro Re-Ed Total Time 20 Direct Treatment Time 35 Total Treatment Time 35 Goals: Physical Therapy NeuroPT: To be completed by discharge: Patient will ascend/descend 4 steps with LRAD and with single UE handrail. Patient will demonstrate appropriate & adequate strategies to maintain & regain balance while performing functional activities in standing as demonstrated by clinically significant change in FGA score or FGA score of >23/30. Pt will ambulate demonstrating ability to scan environment during gait over even and uneven terrainwith maintenance of adequate speed, and no path deviations or LOB Patient will demonstrate appropriate & adequate strategies to maintain & regain balance while performing functional activities in standing as demonstrated by clinically significant change in Hall Balance score or Hall Balance score of >50/56 Patient will complete the TUG Test in 13 seconds or less to indicate improved functional strength and mobility. Patient will demonstrate independence with ongoing home exercise program for long-term maintenance of balance and strength. Patient will increase FOTO score to achieve expected clinical change to allow for improved patient function based on a patient reported outcome measure. Patient Education: Quality of movement and Home Safety with patient verbalized understanding. Post-Treatment Pain Scale: 2 - low back Assessment: Patient had an expected response to treatment. Skilled Intervention demonstrated by modifications of treatment per exercise log including increased mobility, increased volume, and assessment of patient's response and safety interventions per exercise log. Progress towards goals as expected. Plan for Next Visit: Treatment Visit with focus on progression of dynamic balance - provided HEP Santiago Dozier PT State License, [id number] documented in this [id number] History of Present illness Narrative* Santiago Dozier PT - 12/19/2023 10:00 AM EDT Images from the original note were not included. [facility] Physical Therapy Evaluation Today's Date 12/19/2023 Patient Name: Andrew Arnold Date of : 1945 Case Name: Balance Functional Diagnosis: 1. At high risk for falls Clinical Information: Subjective Referring Diagnosis: High Fall Risk Follow-up with physician: 05/18/2024 History of Present Illness Subjective History: Pt reports c/o impaired balance and mobility. He reports the most difficulty with quick movements or when turning. He occasionally feels like his feet are stuck to the floor. He reports h/o cardiac issues and bilateral peripheral neuropathy in both feet. He denies recents falls and states he does not typically use an AD for mobility. Pain Scale Reason for not responding: pain is not reason for seeking treatment 24 Hour Symptom Behavior End of day pain: worse Personal Goals: Improve balance Improve walking tolerance Functional Mobility Status Functional Limitations: limited mobility and standing Current Mobility Status: Home: no device Community: no device and independent Car Transfer: independent Current Activity Level: low active Social Support: Latter Day, social, or cultural considerations to be made aware of before starting treatment: No Home Environment Current Home Environment: Setup: single story house Entry: steps with railing (1 BIJAN) Activities of Daily Living: independent with all Instrumental Activities of Daily Livingto be assessed Red Flags: None Comments: Barriers to Care: None Fall risk screening Fallen 2 or more times in the last 12 months: No Injured as a result of a fall in the last 12 months: No Latter Day, social, or cultural considerations to be made aware of before starting treatment: No Objective Patient presents: ambulating without device Posture Thoracic kyphosis, Decreased lumbar lordosis and wide base of support ROM Right UE grossly: WFL Left UE grossly: WFL Right LE grossly: WFL Left LE grossly: WFL Hip Right Hip Muscle Strength: Flexion: 4+ Extension: 4+ Abduction: 5 Adduction: 5 Left Hip Muscle Strength: Flexion: 4+ Extension: 4+ Abduction: 5 Adduction: 5 Knee Right Knee Muscle Strength: Flexion: 5 Extension: 5 Left Knee Muscle Strength Flexion: 5 Extension: 5 Ankle/Foot Right Ankle/Foot Muscle Strength: DorsiFlexion: 5 Plantar Flexion: 5 Left Ankle/Foot Muscle Strength: DorsiFlexion: 5 Plantar Flexion: 5 Functional Weakness Noted: lateral hip stability, hip extensors/glutes, abdominals and trunk Neuromotor: Selective movement: Right UE: Grossly WFL Left UE: Grossly WFL Tone: WNL Neuromotor Coordination: [facility] Neuromotor Tests Light Touch RLE: impaired LLE: impaired Locomotion/Gait Locomotion/Gait: Independent with no device or impairment Timed and Go - 12/19/23 1021 Sit Stand Walk Up Go Timed Up and Go 16.06 Seconds no AD, reliance on UEs for sit to/from stand HALL - 12/19/23 1023 Hall Balance Index Sit to Stand 4 Standing Unsupported 4 Sitting Unsupported But Feet Supported on Floor or Stool 4 Standing to Sitting 4 Transfers 4 Standing Unsupported With Eyes Closed 4 Standing Unsupported With Feet Together 4 Reaching Forward with Outstretched Arms while Standing 2 Quarry Supervisor Object From The Floor From a Standing Position 3 Turning to Look Behind Over Left and Right Shoulders While Standing 4 Turn [address] Alternate Foot on Step or Stool While Standing Unsupported 2 Standing Unsupported One Foot Infront 2 Standing on One Leg 1 Hall Balance Scale Score 45 Out of a Possible 56 Functional Gait Assessment (FGA) - 12/19/23 1030 Functional Gait Assessment Gait Level Surface 3 Change in gait speed 3 Gait with horizontal head turns 1 Gait with vertical head turns 2 Gait and pivot turn 2 Step over obstacle 1 Gait with narrow base of support 1 Gait with eyes closed 2 Ambulating backwards 2 Steps 2 FGA Score 19 Treatments: Physical Therapy Exercise Log - 12/19/23 1035 OTHER Precautions/Contraindications Supervising PT: Ward Notes Eval: 10:01 - 10:40 Therapeutic Exercise (03681) Intervention reviewed PT POC and goals w/ pt verbalizing agreement PT Treatment Times Total Treatment Time 39 Physical Therapy Neuro Goals: Physical Therapy Neuro Goals: To be completed by discharge: Patient will ascend/descend 4 steps with LRAD and with single UE handrail. Patient will demonstrate appropriate & adequate strategies to maintain & regain balance while performing functional activities in standing as demonstrated by clinically significant change in FGA score or FGA score of >23/30. Pt will ambulate demonstrating ability to scan environment during gait over even and uneven terrainwith maintenance of adequate speed, and no path deviations or LOB Patient will demonstrate appropriate & adequate strategies to maintain & regain balance while performing functional activities in standing as demonstrated by clinically significant change in Hall Balance score or Hall Balance score of >50/56 Patient will complete the TUG Test in 13 seconds or less to indicate improved functional strength and mobility. Patient will demonstrate independence with ongoing home exercise program for long-term maintenance of balance and strength. Patient will increase FOTO score to achieve expected clinical change to allow for improved patient function based on a patient reported outcome measure. CPT Code 43802 Low 35064 Moderate 25313 High History 0 1-2 3+ Comorbidities: cardiac history, HTN, and obesity, Personal factors: chronicity or severity of the current condition Examination of body systems (elements of body structures & functions, activity limitations, and/or participation restrictions) 1-2 elements 3+ elements 4+ elements See below clinical impression Clinical Presentation Stable Evolving Unstable As evidenced by reports of fluctuating symptoms over time Andrew Arnold presents to [facility] outpatient neurological rehab services with c/o impaired balance and abnormal gait. Upon assessment, patient demonstrates the following impairments: decreased strength, impaired balance and impaired posture. 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 The patient would benefit from skilled PT services focused on the above listed impairments and limitations in order to safely progress patient to desired level of function. Plan of care to be revised as needed based on response to therapeutic intervention. Thank you for allowing me to participate in this patient's care. Please contact me with any questions at the above number. Plan of Care Frequency of Visits: 2 times per week Duration: 6 weeks Interventions: Therapeutic Exercise (64876), Neuromuscular Re-Education (76253), Manual Therapy (34588), Therapeutic/ Functional Activities (41506), and Gait Training (44550) Rehab Potential: good Patient Education Provided Pt was educated on the benefits of therapy and importance of compliance with sessions and HEP for rehabilitation. Pt was also educated on treatment diagnosis, POC, and frequency/duration of treatment. This co-signature is to electronically certify that the above named patient, who is under my care, requires skilled therapy services as described in the above treatment plan. I further certify that the services outlined in this plan are skilled and medically necessary. I have reviewed this plan of care for rehabilitation services and recommend that these services continue from 12/19/2023 to 02/17/2024. Santiago Dozier, [place] State License, [id number] documented in this [id number] History of Present illness Narrative* Radha Hughes, JOHN - 12/09/2023 8:52 AM EDT Images from the original note were not included. Patient ID: Andrew Arnold is a 78 y.o. male 1945 Subjective: Andrew Arnold presents for follow-up of Type 2 diabetes Patient has had diabetes for 23 years. Diagnosed in 2000 Outpatient Medications Marked as Taking for the 5/31/24 encounter (Office Visit) with Radha Hughes CNP: acetaminophen (TYLENOL) 325 MG tablet, Take 2 (two) tablets (650 mg total) by mouth every 6 (six) hours as needed for pain (1-2 tablets) . apixaban (ELIQUIS) 5 mg Tab, Take 1 (one) tablet (5 mg total) by mouth 2 (two) times a day . ascorbic Acid (VITAMIN C) 500 mg CpER, Take 1 (one) capsule (500 mg total) by mouth every other day. aspirin 81 MG EC tablet, Take 1 tablet (81 mg total) by mouth daily. blood sugar diagnostic (glucose blood) strips, Dx code E11.9 use to check BG 4x daily. blood sugar diagnostic (RELION PRIME TEST STRIPS) strips, E11.65 Use as directed 4 times per day. bumetanide (BUMEX) 1 MG tablet, Take 0.5 (one-half) tablet (0.5 mg total) by mouth every other day . cilostazoL (PLETAL) 100 MG tablet, TAKE 1 TABLET BY MOUTH TWICE DAILY ON AN EMPTY STOMACH docusate sodium (COLACE) 100 MG capsule, Take 1 (one) capsule (100 mg total) by mouth 2 (two) timesa day as needed . escitalopram oxalate (LEXAPRO) 10 MG tablet, Take 1 (one) tablet (10 mg total) by mouth nightly . flash glucose sensor (FreeStyle Johnny 2 Sensor) Kit, 1 kit by Miscellaneous route every 14 (fourteen) days Use as directed to apply new sensor . insulin lispro (AdmeLOG,HumaLOG) 100 unit/mL injection, USE DIRECTED, APPROXIMATELY 30 UNITS A DAY. . insulin lispro-aabc (Lyumjev KwikPen U-100 Insulin) 100 unit/mL InPn, Inject 10 (ten) Units to 12 (twelve) Units under the skin 3 (three) times a day . insulin syringe-needle U-100 0.3 mL 31 gauge x 5/16 Syrg, Use as directed QID . lancets Mis, Use to check BG QID SolusV2 brand Dx E11.65. Lantus Solostar U-100 Insulin 100 unit/mL (3 mL) InPn, Inject 30 (thirty) Units under the skin nightly . lisinopriL (PRINIVIL,ZESTRIL) 10 MG tablet, Take 1 (one) tablet (10 mg total) by mouth daily . metoprolol succinate (TOPROL-XL) 25 MG 24 hr tablet, Take 1 (one) tablet (25 mg total) by mouth daily . pen needle, diabetic 31 gauge x 3/16 Ndle, Use as directed 4 times daily. . potassium chloride SA (K-DUR,KLOR-CON M10) 10 MEQ tablet, Take 1 (one) tablet (10 mEq total) by mouth every other day . psyllium (METAMUCIL) 0.52 gram capsule, Take 2 (two) capsules (1.04 g total) by mouth as needed . semaglutide (Ozempic) 0.25 mg or 0.5 mg (2 mg/3 mL) Pen, Inject 0.5 (one-half) mg under the skin once a week . simvastatin (ZOCOR) 40 MG tablet, Take 1 (one) tablet (40 mg total) by mouth at bedtime . Review of Systems: Review of Systems Constitutional: Negative for fatigue and unexpected weight change. HENT: Positive for hearing loss. Negative for trouble swallowing. Eyes: Negative for visual disturbance. Respiratory: Negative for cough and shortness of breath. Cardiovascular: Negative for chest pain and leg swelling. Gastrointestinal: Negative for abdominal pain, constipation, diarrhea, nausea and vomiting. Endocrine: Negative for polydipsia, polyphagia and polyuria. Genitourinary: Negative for frequency and urgency. Skin: Negative for wound. Neurological: Positive for weakness (pain with walking) and numbness (in feet). Negative for headaches. Psychiatric/Behavioral: Negative for agitation and sleep disturbance. The patient is not nervous/anxious. The following portions of the patient's history were reviewed and updated as appropriate: allergies, current medications, past family history, past medical history, past social history, past surgicalhistory and problem list. Objective: Wt 106.6 kg (235 lb) BMI 36.81 kg/m Wt Readings from Last 3 Encounters: 12/09/23 106.6 kg (235 lb) 11/29/23 102.5 kg (226 lb) 11/11/23 102.5 kg (226 lb) Physical Exam: General: alert, appears stated age and cooperative Eyes: conjunctivae/corneas clear. PERRL, EOM's intact. Neck: no adenopathy, supple, symmetrical, trachea midline. Thyroid: No thyromegaly appreciated Lung: clear to auscultation bilaterally Heart: regular rate and rhythm, S1, S2 normal, no murmur, click, rub or gallop Extremities: extremities normal, atraumatic, no cyanosis or edema Feet: Dry skin, Bilateral Feet: warm, good capillary refill and normal DP. Monofilament exam abnormal, bilateral lower extremities. 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 Neuro: normal without focal findings, mental status, speech normal, alert and oriented x3 and [facility] Laboratory Review: Wt 106.6 kg (235 lb) BMI 36.81 kg/m Lab Results Component Value Date HGBA1C 7.3 (H) 12/02/2023 Glucose (mg/dL) Date Value 12/02/2023 106 (H) Creatinine (mg/dL) Date Value 12/02/2023 1.01 05/05/2020 0.94 Lab Results Component Value Date CHOL 110 12/02/2023 TRIG 38 12/02/2023 HDL 55 12/02/2023 LDLCALC 47 12/02/2023 Lab Results Component Value Date TSH 1.92 12/02/2023 Lab Results Component Value Date WBC 5.58 12/02/2023 HGB 13.0 (L) 12/02/2023 HCT 40.4 (L) 12/02/2023 MCV 85.1 12/02/2023 PLT 152 12/02/2023 Date: 12/02/23 *labs reviewed 12/09/23 Hgb A1c: 7.3% Creat: 1.01; eGFR: 76 AST: 28; ALT: 17 K: 4.5 CBC: WBC:5.58; Hgb: 13; Hct: 40.4; Plt: 152 Tchol: 110; Tri ; HDL: 55 ; LDL: 47 TSH: 1.92 ; FreeT4: 1.1 06/01/23 Hgb A1c: 9.2% Creat: 1.26; eGFR: 58 AST: 19; ALT: 21 K: 4.9 Tchol: 126; Tri ; HDL: 60 ; LDL: 55 11/29/22 Hgb A1c: 8.4% Creat: 0.94; eGFR: 83 AST: 25; ALT: 27 K: 4.8 Tchol: 107; Tri ; HDL: 50 ; LDL: 46 TSH: 1.58 ; FreeT4: 1.0 Microalbumin/creatinine Ratio: 22 02/17/22 Hgb A1c: 7.8% Creat: 0.97; eGFR: 80 AST: 24; ALT: 30 K: 4.9 CBC: WBC:6.34; Hgb: 12.7; Hct: 39.3; Plt: 157 10/08/21 Hgb A1c: 10.6% Creat: 1.14; eGFR: 62 AST: 24; ALT: 20 K: 4.8 Tchol: 130; Tri ; HDL: 47 ; LDL: 67 TSH: 1.99 ; FreeT4: 1.1 06/12/21 Hgb A1c: 9.4% Creat: 1.22; eGFR: 57 AST: 17; ALT: 23 K: 4.7 TSH: 1.85 ; FreeT4: 1.1 02/25/21 Hgb A1c: 10.1% Creat: 0.91; eGFR: 82 AST: 21; ALT: 21 K: 4.6 TSH: 1.54 ; FreeT4: 1.2 12/17/20 Hgb A1c: 12.5% Creat: 1.18; eGFR: 60 AST: 13; ALT: 20 K: 4.6 CBC: WBC:6.30; Hgb: 13.4; Hct: 41.1; Plt: 175 Tchol: 124; Tri ; HDL: 56 ; LDL: 56 TSH: 2.05 Microalbumin/creatinine Ratio: 41 05/05/20 Hgb A1c: 8.9% Creat: 0.94; eGFR: >60 K: 4.0 TSH: 2.39 ; FreeT4: 1.10 12/27/19 Hgb A1c: 9.0% Creat: 0.98; eGFR: >60 AST: 14; ALT: 21 K: 4.6 CBC: WBC:7.0; Hgb: 14.0; Hct: 42.7; Plt: 201 Tchol: 133; Tri ; HDL: 52 ; LDL: 70 TSH: 2.72 ; FreeT4: 1.05 02/20/19 Hgb A1c: 8.8% Creat: 1.0; eGFR: >60 AST: 22; ALT: 25 K: 4.1 10/23/2018 Hemoglobin A1c 9.7% Creatinine 1.00, EGFR >60, K4.2 AST 22, ALT 31 Microalbumin/creatinine ratio: 12 TSH 2.03, free T4 0.87 T cholesterol 118, TG 49, HDL 51, LDL 57 CBC: H/H 14.3/42.6, WBC 5.2, platelets 180,000 06/20/18 Hgb A1c: 6.3% Creat: 0.9; eGFR: >60 AST: 25; ALT: 17 K: 4.3 Assessment/Plan: Dx: 1. Type 2 diabetes mellitus with retinopathy of both eyes, with long-term current use of insulin, macular edema presence unspecified, unspecified retinopathy severity (HCC) pen needle, diabetic 31 gauge x 3/16 Ndle Type 2 diabetes, under fair control Currently taking: No oral hypoglycemic medications Humalog insulin: 8 units at breakfast; 8 units at lunch; 8 units at supper Lantus insulin: 30 units at bedtime Ozempic 0.5 mg weekly. Current Hemoglobin A1C= Lab Results Component Value Date HGBA1C 7.3 (H) 12/02/2023 HGBA1C 9.2 (H) 06/01/2023 HGBA1C 8.4 (H) 11/29/2022 Weight trend: has increased 4 lbs. Current diet: carb controlled, avoiding concentrated sugars Doing much better. Current exercise: none Current monitoring regimen: home blood tests - 4 times daily utilizing [employer] CGM. Download reviewed 12/09/23 Home blood sugar record: Any episodes of hypoglycemia? Occasionally, typically <1 time weekly. Aware of lows. CGM interpretation reveals goal range 71% of the time with infrequent lows. Spikes appear to occur after some meals, when likely overeating. NOTES: Hgb A1c improved significantly to 7.3% from 9.2% 06/02. Patient currently on QID insulin. PLAN: See below Retinopathy: Positive: Background diabetic retinopathy and Laser Treatment Exam within last 12 months: yes Date: Store Administrative Assistant/Lang Interpreter: Other Ophthalmologic Conditions: None known Nephropathy: Negative Creat: 0.97 03/01 Lab Results Component Value Date CREATININE 1.01 12/02/2023 EXTEGFR >60 12/27/2019 EXTEGFRAFAME >60 12/27/2019 Microlbumin/creat ratio: No results found for: EXTMICROALBC Is patient on PATRICIA inhibitor or angiotensin II receptor julia? yes Lisinopril Peripheral Neuropathy: Positive Reports bilateral numbness and tingling in feet Autonomic Neuropathy: Negative Hypoglycemia unawareness. Senses low BG at <100 mg/dl. Other: Hyperlipidemia: Positive Currently taking: simvastatin (Zocor). LFT's WNL Lab Results Component Value Date AST 28 12/02/2023 ALT 17 12/02/2023 Lab Results Component Value Date EXTCHOL 133 12/27/2019 EXTTRIG 56 12/27/2019 EXTHDL 52 12/27/2019 EXTLDLCALC 70 12/27/2019 Hypertension: Positive. Currently taking: bumetanide (Bumex), lisinopril (Prinivil) and metoprolol (Lopressor, Toprol) Cardiac: Positive Atrial fibrillation. On eliquis. Experiencing chest pain No . 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 Healy Vascular: Following with Dr. Bill. History of PVD aortic aneurysm Feet: Last foot exam: 12/09/23 Follows with Podiatry: Yes Professor Of Theater: Dr. Arroyo History of foot ulceration: Yes, small lesion to the right foot distal to 5th toe. 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 Podiatry notes elevated limb loss risk score he does qualify for diabetic shoes. . Thyroid: Lab Results Component Value Date TSH 1.92 12/02/2023 Negative Other: from colon cancer March 2017. Had COVID-19 vaccine in [place]. Plan: 1. Rx changes: Adjust medications as below Humalog insulin: 6 units at breakfast; 6 units at lunch; 8 units at supper Lantus insulin: 25 units at bedtime Use as directed with Humalog insulin before meals and at bedtime. 151-200: 1 units fast acting insulin 201-250: 2 units fast acting insulin 251-300: 3 units fast acting insulin 301-350: 4 units fast acting insulin 351-400: 5 units fast acting insulin above 400: 6 units fast acting insulin Increase ozempic 1 mg weekly. Mr. Arnold would benefit from continued use of [employer] continuous glucose monitoring system. Patient has had Type 2 diabetes for 21 years. Complications include diabetic neuropathy and CAD Patient is currently managed with: insulin injections Patient has been checking their blood sugar 4 times per day Patient is positive for a history of reoccurring hypoglycemia <50. Patient is predisposed to hypoglycemia, and has had 2 hypoglycemic episodes in the last 7 days. Patient's most recent Hgb A1c was 7.8% on 03/01 Patient's HGb is <6.0% or >8.5% Patient currently takes insulin injections 4 times daily. Patient is negative for a history of hypoglycemic unawareness Patient has inadequate control despite compliance with multiple alterations in insulin doses/medication regimen. 2. Education: Reviewed ABCs of diabetes management (respective goals in parentheses): A1C (7.0-8.0), blood pressure (<130/80), and cholesterol (LDL <100). 3. Compliance at present is estimated to be fair. Efforts to improve compliance (if necessary) willbe directed at increased exercise. Also, will be directed at dietary modifications: Limit starches,carbohydrates and concentrated sugar sources 4. Follow up: 6 months 5. Record blood sugar readings as instructed. Call if BG consistently <70 or >250. [phone] Patient has been checking blood glucoses 4 times daily for the past 90 days. Patient needs to continue checking blood glucoses 4 times daily. Blood glucose readings are used to adjust medication or insulin doses for meals, monitor dietary compliance, and adjust for high or low blood glucoses by patient on a daily basis. Blood glucose readings are reviewed at office visits for adjustment in medication regimen and assistance with dietary management, and other self- management issues including exercise, etc. Prognosis: Good. Duration of need for diabetes testing equipment: Permanent #150 strips/month prescribed. 6. Bring blood sugar meter to follow up appointment. Orders Placed This Encounter Procedures Comprehensive Metabolic Panel Hemoglobin A1c T4, Free TSH documented in this [id number] Evaluation + Plan note* Assessment & Plan Note - Vivien Foreman MD - 11/29/2023 8:19 AM EDTAssociated Problem(s): PAD (peripheral artery disease) (HCC) Following up with vascular with , thinking of procedure with helping his quality of life [id number] Miscellaneous Notes* Assessment & Plan Note - Vivien Foreman MD - 11/29/2023 8:19 AM EDTAssociated Problem(s): PAD (peripheral artery disease) (HCC) Following up with vascular with , thinking of procedure with helping his quality of life * Assessment & Plan Note - Vivien Foreman MD - 11/29/2023 8:16 AM EDTAssociated Problem(s): Mild major depression (HCC) Improving depression with increasing the lexapro dose to 10 mg * Assessment & Plan Note - Vivien Foreman MD - 11/29/2023 8:12 AM EDTAssociated Problem(s): Hearing loss, sensorineural Working with ENT at 's office and has hearing aids tuned recently * Assessment & Plan Note - Vivien Foreman MD - 11/29/2023 8:11 AM EDTAssociated Problem(s): Medicare annual wellness visit, subsequent Patient is able to do ADLs and iADLs Low risk for dementia Increasing risk for falls , PT referral for falls Advised to remove the rug in the house Improving depression with increasing the lexapro dose Patient was counseled about advanced directives and code status Bill Arnold his second son is his emergency contact * Assessment & Plan Note - Vivien Foreman MD - 11/29/2023 8:08 AM EDTAssociated Problem(s): Morbid obesity (HCC) Decreased weight with Ozempic and has been working on dietary modifications. Continue to monitor * Assessment & Plan Note - Vivien Foreman MD - 11/29/2023 8:04 AM EDTAssociated Problem(s): Type 2 diabetes mellitus with retinopathy of both eyes, with long-term current use of insulin (HCC) A1c 9.3 in 06/2023 meds: insulin Humalog with meals. Lantus 30 units at bedtime , added Ozempic which is helping to lose weight. Getting continuous glucose monitoring system through [employer]. 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 - Follow up annually told doesn't need to follow up documented in this [id number] Evaluation + Plan note* Assessment & Plan Note - Vivien Foreman MD - 11/29/2023 8:16 AM EDTAssociated Problem(s): Mild major depression (HCC) Improving depression with increasing the lexapro dose to 10 mg [id number] Evaluation + Plan note* Assessment & Plan Note - Vivien Foreman MD - 11/29/2023 8:12 AM EDTAssociated Problem(s): Hearing loss, sensorineural Working with ENT at 's office and has hearing aids tuned recently [id number] Evaluation + Plan note* Assessment & Plan Note - Vivien Foreman MD - 11/29/2023 8:11 AM EDTAssociated Problem(s): Medicare annual wellness visit, subsequent Patient is able to do ADLs and iADLs Low risk for dementia Increasing risk for falls , PT referral for falls Advised to remove the rug in the house Improving depression with increasing the lexapro dose Patient was counseled about advanced directives and code status Norman Clayton his second son is his emergency contact [id number] Evaluation + Plan note* Assessment & Plan Note - Vivien Foreman MD - 11/29/2023 8:08 AM EDTAssociated Problem(s): Morbid obesity (HCC) Decreased weight with Ozempic and has been working on dietary modifications. Continue to monitor [id number] Evaluation + Plan note* Assessment & Plan Note - Vivien Foreman MD - 11/29/2023 8:04 AM EDTAssociated Problem(s): Type 2 diabetes mellitus with retinopathy of both eyes, with long-term current use of insulin (HCC) A1c 9.3 in 06/2023 meds: insulin Humalog with meals. Lantus 30 units at bedtime , added Ozempic which is helping to lose weight. Getting continuous glucose monitoring system through [employer]. 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 - Follow up annually told doesn't need to follow up [id number] History of Present illness Narrative* Vivien Foreman MD - 11/29/2023 7:41 AM EDT Subjective: Andrew Arnold is a 78 y.o. male here for a Medicare Annual Wellness Visit. History of Present Illness The patient is a 78-year-old male who presents for evaluation of multiple medical concerns. The patient's mood remains stable, however, he expresses anxiety about his 19-year-old granddaughter's demise. The patient is currently on Lexapro, which he reports as beneficial. However, he expresses a desire to increase the dosage. The patient experiences difficulty with ambulation. has identified aortic blockages belowhis waist, prompting a discussion regarding potential surgical interventions. Despite the patient'sreluctance to undergo surgery, he has managed to manage his blood glucose levels effectively. He continues to follow up with [facility]. During a cruise in 06/2023, he experienced severe bilateral leg pain, which impeded his ability to walk. He also suffers from neuropathy in his feet. Dr. Healy has informed him that if stents begin to occur, they will not cease, necessitating stent placement. HTN: The patient's lisinopril dosage was adjusted from 20 mg to [address] Healy due to hypotension.He has not been monitoring his blood pressure at home. DM: The patient utilizes Lantus 30 units and Humalog thrice daily. He is also on Ozempic 0.5 mg. He engages in daily cycling on an elliptical machine, which he reports as beneficial for his leg pain. He has an upcoming appointment with Dr. Krishnan on 12/13/2023. He has a history of laser surgery performed by Dr. Blanca. The patient experiences mild dizziness when exposed to sunlight. He admits to inadequate water intake. The patient recently underwent a hearing test, which he reports as beneficial. However, he struggles with background noise. He utilizes two hearing aids. Supplemental Information He had a tumor in his mouth 15 years ago. He had open heart surgery. Reviewed by Provider: Tobacco Allergies Meds Problems Med Hx Surg Hx Fam Hx Care Team Patient Care Team: Vivien Foreman MD as PCP - General (Family Medicine) Radha Hughes CNP as Nurse Practitioner (Nurse Practitioner) Preston Healy MD as Consulting Physician (Cardiovascular Disease) Adilson Stone MD (Cardiology) Hola Arroyo Jr., LIONM (Podiatry) Sanju Bill III, DO as Consulting Physician (Vascular Surgery) Bess Villanueva RD as Dietitian (Case Management) Pharmacy / Equipment Co. (DME) [facility] [address] [place] [address] [address] [facility] [address] [facility] [address] [facility] [address] [place], [place] [address] [facility] [address] [facility] [id number] Medicare Risk Assessment Do you have an Advanced Directive (Living Will and/or Durable Power of Channel Opener Outsoles for Health Care)? If not, would you like more information about Advanced Directives?: Yes What is your exercise level?: Moderate (like brisk walking) What is your diet?: Diabetic Can you prepare your own meals?: Yes Do you have trouble with finding transportation?: No Because of any health problems, do you need the help of another person with your personal care needs? (For example, eating, bathing, dressing, or getting around the house.): No Does your home have throw rugs, poor lighting or slippery bathtub or shower?: (!) Throw Rugs Does your home have grab bars in bathrooms or handrails on stairs and steps?: (!) Only grab bars inthe bathroom During the past four weeks, how would you rate your health in general?: Good Whether or not you use a hearing aid, do you think you have a hearing problem or do others think you have a hearing problem?: (!) Yes Whether or not you use glasses or contacts, do you have difficulty driving, watching television, reading, or doing any of your daily activities because of your eyesight?: No In the past six months, have you had an unexplained weight loss of 10 pounds or more?: No Do you take your medications as prescribed?: I do not miss doses of my medications During the past four weeks, how much have you been bothered by emotional problems such as feeling anxious, depressed, irritable, sad, or downhearted and blue?: (!) Moderately During the past four weeks, has your physical and emotional health limited your social activites with family, friends, neighbors, or groups? : (!) Moderately Falls Risk Assessment Is Patient Ambulatory?: Y Fell in past year: 0 (No) Did any of these falls result in an injury?: No Unsteady when walks: 1 (Yes) Worried about fallin (Yes) Advised to use cane/walker?: 0 (No) Holds onto furniture/blanca: 1 (Yes) Uses hands to stand up from a chair: 1 (Yes) Trouble stepping onto curb: 1 (Yes) Rushes to toilet: 1 (Yes) Lost feeling in feet: 1 (Yes) Medicine makes me light-headed: 1 (Yes) Medicine for sleep or mood: 0 (No) Often feel sad/depressed: 1 (Yes) Patient Self Risk Assessment Score: 9 Medicare Mini Cog Step 1: Three Word Registration Version Used: Version 4: Brayan Clark Finger Step 2: Clock Drawing Step 2 score: Normal clock - 2 points Clock has all numbers placed in the correct sequence & position (e.g., 12, 3, 6 and 9 are in anchor positions) with no missing or duplicate numbers. Hands are pointing to the 11 & 2 (11:10). Hand length is not scored. Step 3: Three Word Recall Record patient's answers to the right: lian shea Step 3: Three Word Recall Score: 3 Words Recalled Total score = Word Recall score + Clock Draw score A cut point of <3 on the Mini-Cog has been validated for dementia screening, but many individuals with clinically meaningful cognitive impairment will score higher. A cut point of <4 may indicate a need for further evaluation of cognitive status.: 5 5-Year Plan: Health Maintenance Topic Date Due Tetanus: Every 10yrs 03/18/2021 COVID-19 Vaccine ( season) 2023 Diabetic Eye Exam 04/05/2023 A1C 09/01/2023 Urine Microalbumin 11/30/2023 Influenza Vaccine (Season Ended) 2024 Diabetic Foot Exam 06/06/2024 Depression Remission Assessment (PHQ9) 09/28/2024 Falls Risk Assessment 11/28/2024 Wellness Visit 11/28/2024 Hepatitis C Screening Completed Pneumococcal Vaccine: Age 65+ Completed Zoster Vaccines Completed Immunization History Administered Date(s) Administered Influenza IIV4 high dose 65 and Older 04/18/2020, 06/12/2021 Influenza Split High Dose Preservative Free IM 04/18/2020 Influenza TIV (IM) 04/14/2015 Influenza Whole 04/10/2008 Influenza, Seasonal, Injectable 04/14/2015 Influenza, Unspecified 04/10/2008, 04/10/2008 Moderna SARS-CoV-2 Vaccination 09/18/2020, 10/16/2020, 06/13/2021 [employer] COVID-19 VACCINE BIVALENT BOOSTER (12+) 06/14/2022 Pfizer 12+ Years inocente-sucrose COVID-19 vaccine 12/10/2021 Pneumococcal Conjugate (Prevnar 7) 04/10/2004 Pneumococcal Conjugate 13-Valent (Prevnar 13) 01/05/2021 Pneumococcal Conjugate, Unspecified Formulation 04/10/2004 Pneumococcal Polysaccharide (Pneumovax 23) 09/05/2012, 09/05/2012 Tdap 03/18/2011, 03/18/2011 Zoster (Shingrix) 03/03/2021, 07/07/2021 Hearing/Vision Screen No results found. 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 - Follow up annually told doesn't need to follow up Endocrine Type 2 diabetes mellitus with retinopathy of both eyes, with long-term current use of insulin ([facility]) A1c 9.3 in 06/2023 meds: insulin Humalog with meals. Lantus 30 units at bedtime , added Ozempic which is helping to lose weight. Getting continuous glucose monitoring system through [employer]. 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) Cardiovascular and Mediastinum 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, bilateral legs ([facility]) Relevant Orders CBC and Differential PAD (peripheral artery disease) ([facility]) Following up with vascular with , thinking of procedure with helping his quality of life Nervous and Auditory Hearing loss, sensorineural Working with ENT at 's office and has hearing aids tuned recently RESOLVED: Traumatic subdural hemorrhage (HCC) Other Mild major depression (HCC) Improving depression with increasing the lexapro dose to 10 mg Relevant Medications escitalopram oxalate (LEXAPRO) 10 MG tablet Medicare annual wellness visit, subsequent Patient is able to do ADLs and iADLs Low risk for dementia Increasing risk for falls , PT referral for falls Advised to remove the rug in the house Improving depression with increasing the lexapro dose Patient was counseled about advanced directives and code status Norman Arnold his second son is his emergency contact Morbid obesity (HCC) Decreased weight with Ozempic and has been working on dietary modifications. Continue to monitor Other Visit Diagnoses Type 2 diabetes mellitus with other circulatory complication, with long-term current use of insulin([facility]) (Chronic) - Primary Relevant Orders Lipid Panel Hypertensive heart disease with heart failure (HCC) At high risk for falls Relevant Orders Ambulatory Ref to [facility] (PT/OT/ST) Assessment & Plan Fall risk. The patient's risk of falling has escalated since his last visit. The patient is advised to consider replacing the throw rugs with stickers. Physical therapy will be initiated to improve balance. Shoulder blade pain. Voltaren gel will be prescribed for the patient. Shoulder exercises will be provided to alleviate the discomfort. Follow-up The patient is scheduled for a follow-up visit in 3 to 6 months. After discussing the use of ambient listening and audio recording in generating medical documentation, the patient verbally consented to use of this technology for today's visit. Vaccinations today per orders. Vaccination counseling provided including which vaccinations are to be administered today, their indication(s), and potential side effects. All questions answered. CDC vaccine information sheet provided for each vaccine administered. Discussed elevated Body Mass Index (BMI): Advised regular exercise. Discussed elevated Body Mass Index (BMI): Advised healthy and appropriate diet. Rationale: Overweight (Findings) BMI Return in about 6 months (around 05/31/2024) for Follow Up. Patient Instructions (the written plan) and additional handouts provided to the patient with their After Visit Summary. 03/02/2021 10:00 AM 06/12/2021 10:00 AM 12/10/2021 10:27 AM 02/22/2022 7:00 AM 06/14/2022 9:00 AM 07/23/2022 1:11 PM 11/29/2023 7:36 AM Depression Screening Little interest or pleasure in doing things 2 0 1 0 1 1 2 Feeling down, depressed, or hopeless 1 3 1 0 2 0 1 PHQ-2 Total Score 3 3 2 0 3 1 3 Trouble falling or staying asleep, or sleeping too much 2 0 0 1 1 1 Feeling tired or having little energy 1 0 0 0 1 1 Poor appetite or overeating 0 0 0 0 1 0 Feeling bad about yourself - or that you are a failure or have let yourself or your family down 2 12 3 1 2 Trouble concentrating on things, such as reading the newspaper or watching television 2 1 1 2 1 1 Moving or speaking so slowly that other people could have noticed. Or the opposite - being so fidgety or restless that you have been moving around a lot more than usual 0 3 0 0 0 1 Thoughts that you would be better off , or of hurting yourself in some way 0 0 1 1 0 1 PHQ-9 Total Score 10 8 6 10 6 10 If you checked off any problems, how difficult have these problems made it for you to do your work,take care of things at home, or get along with other people? Somewhat difficult Not difficult at all Somewhat difficult Somewhat difficult Not difficult at all documented in this [id number] History of Present illness Narrative* Hola Arroyo Jr., DPM - 11/23/2023 10:23 AM EDT Nail care Patient is a pleasant 78 year-old male who comes in today for nail care. His geriatric status and diabetes is managed by primary including Dr. Foreman. Comes in today for nail care. Physical Vascular: DP pulses are palpable 2-4. PT pulses are nonpalpable due to edema. +1 foot and ankle edema. Skin is shiny atrophic dysvascular with absence of hair growth. Feet are warm to cool proximal to distal. Nails left foot [id number] and right foot [id number] are elongated thickened mycotic crumbling dystrophic. Neuro: Light blunted at 3-6 sites bilaterally. Babinski's is blunted. Musculoskeletal: Can easily wiggle toes not any clicking or catching. Mild hammering of the distal digits 2 through 4 right and left foot with some pes planovalgus foot type. 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 -Given his elevated limb loss risk score he does qualify for nail care. Procedure: After timeout consent was performed, sharply debrided and debulk in height and length 10onychomycotic nails with a sharp around nail nippers consistent with a q8 modifier. Follow-up in 3 months documented in this [id number] Evaluation + Plan note* Assessment & Plan Note - Preston Healy MD - 11/13/2023 2:24 PM EDT Associated Problem(s): S/P aortic valve replacement Reviewed. [id number] Miscellaneous Notes* Assessment & Plan Note - Preston Healy MD - 11/13/2023 2:24 PM EDTAssociated Problem(s): S/P aortic valve replacement Reviewed. * Assessment & Plan Note - Preston Healy MD - 11/13/2023 2:23 PM EDT Associated Problem(s): S/P CABG (coronary artery bypass graft) No angina. * Assessment & Plan Note - Preston Healy MD - 11/13/2023 2:22 PM EDT Associated Problem(s): A-fib (HCC) Reviewed. documented in this [id number] Evaluation + Plan note* Assessment & Plan Note - Preston Healy MD - 11/13/2023 2:23 PM EDT Associated Problem(s): S/P CABG (coronary artery bypass graft) No angina. [id number] Evaluation + Plan note* Assessment & Plan Note - Preston Healy MD - 11/13/2023 2:22 PM EDTAssociated Problem(s): A-fib (HCC) Reviewed. [id number] History of Present illness Narrative* Preston Healy MD - 11/11/2023 10:06 AM EDT [facility] [address] [facility] [address] [facility] [id number] Subjective: Andrew Arnold is a 78 y.o. male seen in the office today for Chief Complaint Patient presents with Follow-up 6 mo -no complaints Doing reasonably well. No cardiac symptoms. Cardiac reviewed no chest pain no signs of any heart failure biggest problem is his significant claudication lower extremities reviewed notes from [facility]. Certainly has claudication on a flat surface less than 50 yards he says. Any slight hill or carrying things brings on much faster. Denies any abrasions of his feet. Cardiac status stable. Following up with vascular no change medications today. Overview of Problems Addressed: Problem Pad (Peripheral Artery Disease) ([facility]) Severe claudication. Following with the vascular. A-Fib ([facility]) Holter monitor A. fib throughout with rate controlled. Otherwise unremarkable. Rate control oral anticoagulation. New finding EKG January 09, 2021 A. fib patient essentially asymptomatic with it. Did have a history ofA. fib after his coronary bypass grafting with cardioversion at that time. No known recurrent A. fib until today. Wide QRS as before. Tolerates it well has had a little bit of lightheadedness here and there. Heart rate 75. S/P Cabg (Coronary Artery Bypass Graft) Heart cath December 2021 patent grafts severe [place] coronary artery disease Medical therapy ON 08/11/[address] SONAM MÉNDEZ History of coronary bypass grafting 3 History of tissue aortic valve replacement early August 2015. S/P Aortic Valve Replacement 08/26 tissue AVR. Echo 07/2023. s/p aortic valve replacement with a 23 mm Alfred Peñaloza bioprosthetic valve. Valve appears well-seated. V-max 2.8 m/s, mean gradient 15 mmHg. Dimensionless index of 0.4. Trivial insufficiency. EF 58%. 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 2021 Assessment & Plan: Reviewed. A-fib ([facility]) Reviewed. S/P CABG (coronary artery bypass graft) No angina. S/P aortic valve replacement Reviewed. Histories: Past Medical History: Diagnosis Date Aortic valve calcification Arrhythmia Atrial fibrillation (HCC) after CABG CAD (coronary artery disease) 3 Vessel Claudication (HCC) Left lower extremity symptoms Fractures Hypertension Mitral valve annular calcification Myocardial infarction (HCC) 08/02/2015 Non-ST Obesity Oral cancer (HCC) Pilonidal cyst Subdural hematoma (HCC) 2008 minor trauma while on Plavix at the time. Tendonitis of wrist, right TIA (transient ischemic attack) 2007 was put on plavix then had subdural one year later. Vitreous hemorrhage of left eye (HCC) Past Surgical History: Procedure Laterality Date AORTIC VALVE REPLACEMENT CARDIAC CATHETERIZATION CARDIAC CATHETERIZATION N/A 12/25/2021 Procedure: Coronary Angiogram; Surgeon: Adilson Stone MD; Location: [facility]; Service: Cardiovascular CARDIAC CATHETERIZATION N/A 12/25/2021 Procedure: Left Heart Cath w/Grafts; Surgeon: Adilson Stone MD; Location: [facility]; Service: Cardiovascular CARDIAC VALVE REPLACEMENT CORONARY ARTERY BYPASS GRAFT 08/13/2015 3 Vessel/YEUNG to the LAD/SVG to obtuse marginal/SVG to a PDA MOUTH SURGERY 2007 Oral cancer TENDON RELEASE DEQUERVAINS Right 12/26/2018 Procedure: TENDON RELEASE DE QUERVAINS RIGHT; Surgeon: Jenaro Oquendo MD; Location: Main OR; Service: Orthopedic Family History Problem Relation Age of Onset COPD Mother Diabetes Father Stroke Paternal Grandmother Social History Tobacco Use Smoking status: Former Packs/day: 3.00 Years: 12.00 Additional pack years: 0.00 Total pack years: 36.00 Types: Cigarettes Quit date: 08/27/1973 Years since quittin.2 Smokeless tobacco: Former Types: Chew Vaping Use Vaping Use: Never used Substance Use Topics Alcohol use: Not Currently Alcohol/week: 0.0 standard drinks of alcohol Drug use: No Patient's Medications New Prescriptions No medications on file Previous Medications ACETAMINOPHEN (TYLENOL) 325 MG TABLET Take 2 (two) tablets (650 mg total) by mouth every 6 (six) hours as needed for pain (1-2 tablets) . APIXABAN (ELIQUIS) 5 MG TAB Take 1 (one) tablet (5 mg total) by mouth 2 (two) times a day . ASCORBIC ACID (VITAMIN C) 500 MG CPER Take 1 (one) capsule (500 mg total) by mouth every other day . ASPIRIN 81 MG EC TABLET Take 1 tablet (81 mg total) by mouth daily. BLOOD SUGAR DIAGNOSTIC (GLUCOSE BLOOD) STRIPS Dx code E11.9 use to check BG 4x daily. BLOOD SUGAR DIAGNOSTIC (RELION PRIME TEST STRIPS) STRIPS E11.65 Use as directed 4 times per day. BUMETANIDE (BUMEX) 1 MG TABLET Take 0.5 (one-half) tablet (0.5 mg total) by mouth every other day . CILOSTAZOL (PLETAL) 100 MG TABLET TAKE 1 TABLET BY MOUTH TWICE DAILY ON AN EMPTY STOMACH DOCUSATE SODIUM (COLACE) 100 MG CAPSULE Take 1 (one) capsule (100 mg total) by mouth 2 (two) times a day as needed . ESCITALOPRAM OXALATE (LEXAPRO) 5 MG TABLET Take 1 (one) tablet (5 mg total) by mouth daily . FLASH GLUCOSE SENSOR (FREESTYLE JOHNNY 2 SENSOR) KIT 1 kit by Miscellaneous route every 14 (fourteen) days Use as directed to apply new sensor . INSULIN LISPRO (ADMELOG,HUMALOG) 100 UNIT/ML INJECTION USE DIRECTED, APPROXIMATELY 30 UNITS A DAY. . INSULIN LISPRO-AABC (LYUMJEV KWIKPEN U-100 INSULIN) 100 UNIT/ML INPN Inject 10 (ten) Units to 12 (twelve) Units under the skin 3 (three) times a day . INSULIN SYRINGE-NEEDLE U-100 0.3 ML 31 GAUGE X 5/16 SYRG Use as directed QID . LANCETS MISC Use to check BG QID SolusV2 brand Dx E11.65. LANTUS SOLOSTAR U-100 INSULIN 100 UNIT/ML (3 ML) INPN Inject 30 (thirty) Units under the skin nightly . METOPROLOL SUCCINATE (TOPROL-XL) 25 MG 24 HR TABLET Take 1 (one) tablet (25 mg total) by mouth daily . PEN NEEDLE, DIABETIC 31 GAUGE X 3/16 NDLE Use as directed 4 times daily. . POTASSIUM CHLORIDE SA (K-DUR,KLOR-CON M10) 10 MEQ TABLET Take 1 (one) tablet (10 mEq total) by mouth every other day . PSYLLIUM (METAMUCIL) 0.52 GRAM CAPSULE Take 2 (two) capsules (1.04 g total) by mouth as needed . SEMAGLUTIDE (OZEMPIC) 0.25 MG OR 0.5 MG (2 MG/3 ML) PEN Inject 0.5 (one-half) mg under the skin once a week . SIMVASTATIN (ZOCOR) 40 MG TABLET Take 1 (one) tablet (40 mg total) by mouth at bedtime . Modified Medications Modified Medication Previous Medication LISINOPRIL (PRINIVIL,ZESTRIL) 10 MG TABLET lisinopriL (PRINIVIL,ZESTRIL) 20 MG tablet Take 1 (one) tablet (10 mg total) by mouth daily . Take 1 (one) tablet (20 mg total) by mouth daily. Discontinued Medications No medications on file Allergies Allergen Reactions Pioglitazone GI Intolerance Review of Systems Constitutional: Negative for malaise/fatigue. Cardiovascular: Negative for chest pain, dyspnea on exertion, leg swelling and palpitations. Claudication. Neurological: Negative for dizziness. Objective: Physical Exam Vitals and nursing note reviewed. Constitutional: General: He is not in acute distress. Appearance: He is well-developed. He is not diaphoretic. HENT: Head: Normocephalic. Eyes: General: No scleral icterus. Comments: Pupils reactive Neck: Vascular: No JVD. Cardiovascular: Rate and Rhythm: Rhythm irregular. Pulses: Radial pulses are 2+ on the right side and 2+ on the left side. Heart sounds: S1 normal and S2 normal. Murmur heard. No gallop. No S3 or S4 sounds. Comments: 2- 3/6 systolic murmur right sternal border. No diastolic murmur heard. Pulmonary: Effort: No respiratory distress. Breath sounds: Normal breath sounds. No stridor. No wheezing or rales. Abdominal: General: There is no distension. Palpations: Abdomen is soft. Tenderness: There is no abdominal tenderness. There is no guarding. Musculoskeletal: General: No tenderness. Comments: Trace pedal edema. Skin: General: Skin is warm and dry. Neurological: Mental Status: He is alert and oriented to person, place, and time. Coordination: Coordination normal. Vitals: Vitals: 11/11/23 0933 11/11/23 0938 BP: (!) 92/56 (!) 98/53 BP Location: Left arm Right arm Patient Position: Sitting BP Cuff Size: X-large Adult Pulse: 83 SpO2: 92% Weight: 102.5 kg (226 lb) Height: 5' 7 Body mass index is 35.4 kg/m . No orders of the defined types were placed in this encounter. Follow Up Ordered: Return in about 6 months (around 05/13/2024). Preston Healy MD * Tianna Conn MA - 11/11/2023 9:36 AM EDT Review of Systems Constitutional: Negative for malaise/fatigue. Cardiovascular: Negative for chest pain, dyspnea on exertion, leg swelling and palpitations. Neurological: Negative for dizziness. documented in this [id number] Instructions* Patient Instructions* Tianna Conn MA - 10/31/2023 3:20 PM EDT How to Contact your Care Team: Provider: Dr. Preston Healy MD Silk Screen Layout Drafter: Yun Darnell RN documented in this [id number] Instructions* Patient Instructions* Nilsa Garza MA - 10/27/2023 9:28 AM EDT How to contact your Care Team: Providers: DO Duane Centeno III, CNP Jill Bender, PA Nurse: Shaila Matos To reschedule office appointments call Scheduling [phone] In case of an emergency please call 911. When in need of refills please call the phone number listed above. Please include medication name, pharmacy name and specify 30 or 90 day supply Please check with your pharmacy within 24 hours of your request for refill. You must follow up as directed to continue current refills. Thank you! documented in this [id number] History of Present illness Narrative* Sanju Bill III, DO - 10/27/2023 9:27 AM EDT Assessment & Plan: 1. 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, bilateral legs(HCC) 2. PAD (peripheral artery disease) (HCC) 3. Abrasion, right foot, subsequent encounter 4. Poorly controlled diabetes mellitus (HCC) 5. Persistent atrial fibrillation (HCC) 6. halfway current use of anticoagulant 7. Obesity (BMI 30-39.9) Plan: At the present time, Mr. Washburn actually is improving slightly with regards to his weight loss and diabetic management. He started on Ozempic and states that he has done well with that medication with weight loss and diabetes control. Unfortunately, he does have a small abrasion on the dorsum of the right foot where he states that he got his foot caught underneath the door in the middle of the night (when he was not wearing any shoes or slippers). It is not deep and it is not infected, but there is significant concern regarding healing potential with his PAD issues. He is not anxious to undergo any surgical intervention at the present time and actually feels a bit better since he is lost weight and his diabetes still is somewhat elevated, but improving. As result, we will see him back in the office in 3 months and continue to monitor. I did instruct him that if things deteriorate or there is no significant improvement regarding his right foot abrasion, then he is to contact us sooner.We will keep you informed, and we appreciate the opportunity to participate in his care. Follow Up Ordered: Return in about 3 months (around 01/26/2024) for Recheck in [place] office. Subjective: Andrew Arnold is a 78 y.o. male seen in the office today for follow up regarding PAD with significant claudication. Mr. Snyder (birthday is 1945) was seen in the [place] office on October 27, 2023. It has been approxi-3 months since he was seen last. He has known PAD which is rather significant. He has significant bilateral common femoral and profundofemoral artery atherosclerotic and calcific disease. He hasleft SFA and popliteal occlusive disease as well. He states he is actually doing well. When we saw him last visit, he had significantly elevated glucoses and his obesity was of some concern. Prior toany femoral endarterectomy procedures, we wanted him to improve his diabetic management and weight status. He started on Ozempic and actually is very happy with his improvement. He is only been on the medication for approximately 1 month and he is lost approximately 12 pounds and states that his sugars are under better control. He is in better spirits since he is lost some weight. He still has claudication symptoms, but actually states that he feels like he is walking a little bit easier since his weight has been diminished. He continues with his medications including cilostazol for his PAD and Eliquis secondary to atrial fibrillation. He is not anxious to undergo any surgical intervention unless absolutely necessary. He does comment that he scraped the top of his right foot under a door in the middle of the night when he was getting out of bed, but it seems to be healing slowly and there is no significant pain or rest pain or night pain or gangrene noted. Histories: Past Medical History: Diagnosis Date Aortic valve calcification Arrhythmia Atrial fibrillation (HCC) after CABG CAD (coronary artery disease) 3 Vessel Claudication (HCC) Left lower extremity symptoms Fractures Hypertension Mitral valve annular calcification Myocardial infarction (HCC) 08/02/2015 Non-ST Obesity Oral cancer (HCC) Pilonidal cyst Subdural hematoma (HCC) 2008 minor trauma while on Plavix at the time. Tendonitis of wrist, right TIA (transient ischemic attack) 2007 was put on plavix then had subdural one year later. Vitreous hemorrhage of left eye (HCC) Past Surgical History: Procedure Laterality Date AORTIC VALVE REPLACEMENT CARDIAC CATHETERIZATION CARDIAC CATHETERIZATION N/A 12/25/2021 Procedure: Coronary Angiogram; Surgeon: Adilson Stone MD; Location: [facility]; Service: Cardiovascular CARDIAC CATHETERIZATION N/A 12/25/2021 Procedure: Left Heart Cath w/Grafts; Surgeon: Adilson Stone MD; Location: [facility]; Service: Cardiovascular CARDIAC VALVE REPLACEMENT CORONARY ARTERY BYPASS GRAFT 08/13/2015 3 Vessel/YEUNG to the LAD/SVG to obtuse marginal/SVG to a PDA MOUTH SURGERY 2007 Oral cancer TENDON RELEASE DEQUERVAINS Right 12/26/2018 Procedure: TENDON RELEASE DE QUERVAINS RIGHT; Surgeon: Jenaro Oquendo MD; Location: Main OR; Service: Orthopedic Family History Problem Relation Age of Onset COPD Mother Diabetes Father Stroke Paternal Grandmother Social History Tobacco Use Smoking status: Former Packs/day: 3.00 Years: 12.00 Additional pack years: 0.00 Total pack years: 36.00 Types: Cigarettes Quit date: 08/27/1973 Years since quittin.2 Smokeless tobacco: Former Types: Chew Vaping Use Vaping Use: Never used Substance Use Topics Alcohol use: Not Currently Alcohol/week: 0.0 standard drinks of alcohol Drug use: No Current Outpatient Medications Medication Sig Dispense Refill acetaminophen (TYLENOL) 325 MG tablet Take 2 (two) tablets (650 mg total) by mouth every 6 (six) hours as needed for pain (1-2 tablets) . apixaban (ELIQUIS) 5 mg Tab Take 1 (one) tablet (5 mg total) by mouth 2 (two) times a day . 60 tablet 11 ascorbic Acid (VITAMIN C) 500 mg CpER Take 1 (one) capsule (500 mg total) by mouth every other day . aspirin 81 MG EC tablet Take 1 tablet (81 mg total) by mouth daily. 90 tablet 3 bumetanide (BUMEX) 1 MG tablet Take 0.5 (one-half) tablet (0.5 mg total) by mouth every other day .22 tablet 1 cilostazoL (PLETAL) 100 MG tablet TAKE 1 TABLET BY MOUTH TWICE DAILY ON AN EMPTY STOMACH 180 [id number] docusate sodium (COLACE) 100 MG capsule Take 1 (one) capsule (100 mg total) by mouth 2 (two) times a day as needed . escitalopram oxalate (LEXAPRO) 5 MG tablet Take 1 (one) tablet (5 mg total) by mouth daily . 30 tablet 11 flash glucose sensor (FreeStyle Johnny 2 Sensor) Kit 1 kit by Miscellaneous route every 14 (fourteen) days Use as directed to apply new sensor . 2 kit 11 insulin lispro (AdmeLOG,HumaLOG) 100 unit/mL injection USE DIRECTED, APPROXIMATELY 30 UNITS A DAY. . 30 mL 3 insulin syringe-needle U-100 0.3 mL 31 gauge x 5/16 Syrg Use as directed QID . 400 each 3 [facility]ancets [facility] Use to check BG QID SolusV2 brand Dx E11.65. 200 each 11 Lantus Solostar U-100 Insulin 100 unit/mL (3 mL) InPn Inject 30 (thirty) Units under the skin nightly . 45 mL 3 lisinopriL (PRINIVIL,ZESTRIL) 20 MG tablet Take 1 (one) tablet (20 mg total) by mouth daily . 90 tablet 3 metoprolol succinate (TOPROL-XL) 25 MG 24 hr tablet Take 1 (one) tablet (25 mg total) by mouth daily . 90 tablet 1 pen needle, diabetic 31 gauge x 3/16 Ndle Use as directed 4 times daily. . 400 each 3 potassium chloride SA (K-DUR,KLOR-CON M10) 10 MEQ tablet Take 1 (one) tablet (10 mEq total) by mouth every other day . 45 tablet 3 psyllium (METAMUCIL) 0.52 gram capsule Take 2 (two) capsules (1.04 g total) by mouth as needed . semaglutide (Ozempic) 0.25 mg or 0.5 mg (2 mg/3 mL) Pen Inject 0.5 (one-half) mg under the skin once a week . 9 mL 3 simvastatin (ZOCOR) 40 MG tablet Take 1 (one) tablet (40 mg total) by mouth at bedtime . 90 tablet 3 blood sugar diagnostic (glucose blood) strips Dx code E11.9 use to check BG 4x daily. (Patient not taking: Reported on 10/27/2023 .) 150 strip 11 blood sugar diagnostic (RELION PRIME TEST STRIPS) strips E11.65 Use as directed 4 times per day. (Patient not taking: Reported on 10/27/2023 .) 150 strip 11 insulin lispro-aabc (Lyumjev KwikPen U-100 Insulin) 100 unit/mL InPn Inject 10 (ten) Units to 12 (twelve) Units under the skin 3 (three) times a day . (Patient not taking: Reported on 10/27/2023 .) 15mL 11 No current facility-administered medications for this visit. Allergies Allergen Reactions Pioglitazone GI Intolerance ROS Objective: Vitals: Vitals: 10/27/23 0928 10/27/23 0938 BP: 117/65 103/67 BP Location: Right arm Left arm Patient Position: Sitting Sitting Pulse: 85 88 Weight: 103.9 kg (229 lb) Height: 5' 7 Physical Exam Vitals reviewed. Constitutional: General: He is awake. Appearance: Normal appearance. He is well-developed. He is obese. HENT: Head: Normocephalic. Eyes: General: Lids are normal. Neck: Vascular: No JVD. Cardiovascular: Rate and Rhythm: Normal rate. Rhythm irregularly irregular. Pulses: Decreased pulses. Femoral pulses are 2+ on the right side and 2+ on the left side. Popliteal pulses are 0 on the right side and 0 on the left side. Dorsalis pedis pulses are 0 on the right side and 0 on the left side. Posterior tibial pulses are 0 on the right side and 0 on the left side. Heart sounds: Normal heart sounds. No murmur heard. Comments: Well-healed vein harvesting incision is noted the right lower extremity. Pulmonary: Effort: Pulmonary effort is normal. Abdominal: General: Abdomen is protuberant. Palpations: Abdomen is not rigid. Comments: Limited exam due to body habitus and obesity. Musculoskeletal: General: Normal range of motion. Cervical back: Neck supple. Right foot: Normal capillary refill. Abnormal pulse. Left foot: Normal capillary refill. Abnormal pulse. Feet: Right foot: Skin integrity: Skin breakdown (Abrasion on the dorsum of the right foot with small scabs.) and dryskin present. Left foot: Skin integrity: Dry skin present. No skin breakdown. Skin: General: Skin is warm and dry. Capillary Refill: Capillary refill takes 2 to 3 seconds. Findings: Abrasion (Dorsum right foot) present. Comments: Anhidrosis as well as hair loss pattern changes are noted in bilateral feet and lower extremities. Neurological: General: No focal deficit present. Mental Status: He is alert and oriented to person, place, and time. Sensory: Sensory deficit (Decreased sensation to fine touch bilateral extremities consistent with diabetic neuropathy.) present. Motor: Motor function is intact. Coordination: Coordination is intact. Gait: Gait is intact. Psychiatric: Attention and Perception: Attention and perception normal. Mood and Affect: Mood and affect normal. Speech: Speech normal. Behavior: Behavior normal. Behavior is cooperative. Thought Content: Thought content normal. Lab Review: The following labs were reviewed and within the chart Bilateral ankle-brachial indices performed on June 30, 2023 indicate moderate bilateral extremity arterial disease with a right leg ARIELLE of 0.63, and a left ankle ARIELLE of 0.56. This study is essentially unchanged when compared to previous evaluation from March 2022. CT angiogram of the abdomen, pelvis, lower extremities performed on July 14, 2023 indicates severe atherosclerotic disease of bilateral extremities with occlusion of the distal left SFA and popliteal artery. Diminutive and calcified two-vessel runoff are noted bilateral extremities. documented in this [id number] History of Present illness Narrative* Bess Villanueva RD - 10/20/2023 11:09 AM EDT Outpatient Medical Nutrition Therapy Follow Up Previous goals: 1. CHO and protein balance at meals and snacks Progress toward goals: 1. Pt confirms he is following this goal Pt/Family comments: Spoke with pt via telephone for follow up. He reports that blood sugars have been doing well since making diet adjustments and is pleased with results. He does mention that he hasbeen having more low blood sugars in the 50s. He did message endo who encouraged him to lower his insulin dose by 10- 15%. Average BG is at 140 mg/dL. Pt provided this RD with [place] data with TIRat 81%, GMI 6.7%, and 3% low. Goal: Continue with CHO and protein balance at meals & snacks Follow-Up: 1 month Bess Villanueva RDN, [place], [facility] Office documented in this [id number] History of Present illness Narrative* Bess Villanueva RD - 08/08/2023 4:14 PM EST 08/08/23 1449 Diabetes - Initial Consideration Pt: What would you like to talk about today?[QM] Monitoring and management Diabetes - Condition Knowledge Pt: What type of diabetes do you have? Type 2 Diabetes - Provider Information Pt: What doctor manages your diabetes?[QM] Microstrategy Developer (import/export specialist), name and phone number: Pt: When was your last visit to your doctor who manages your diabetes?[QM] Within the past 3 months Pt: When was your last visit to your primary doctor?[QM] Within the past 3 months Diabetes - Medication Information Pt: Has any medicine for diabetes been prescribed by the doctor? If so, is it taken as ordered?[QM]Yes, and taken as ordered Pt: What medicines do you take for diabetes?[QM] Insulin, long-acting;Insulin, short-acting CM: Rate the patient's understanding of the purpose and side effects of the medications for diabetes.[QM] 50% to 74% Pt: Do you take an aspirin every day or another medicine that keeps your blood from clotting? Yes Diabetes - Complications Pt: Are there any problems with low blood sugar (hypoglycemia)? If so, how often? Yes, several times per month Pt: What causes the low blood sugar? Not following diet Pt: What do you do if blood sugars are low? Start action plan, specify: Pt: Are there any high blood sugar (hyperglycemia) problems? If so, how often? Yes, once to severaltimes per week Pt: What causes the high blood sugar? Not following diet CM: Rate the patient's understanding of the potential complications of diabetes.[QM] 50% to 74% Diabetes - Monitoring and Management Pt: Are blood sugars supposed to be checked at home? Yes Pt: Why are blood sugars being checked? Diabetes monitoring Pt: Are blood sugars checked at home? Yes Pt: How are blood sugars checked? Continuous glucose monitoring (CGM) Pt: How often are blood sugars checked? 2 or more times a day CM: What is the patient's body mass index (BMI)? BMI Calculator 30 or greater Pt: What do you eat and drink in a typical day? Vegetables, specify types and number of daily servings:;Water, specify number of daily servings:;Milk, specify types and number of daily servings:;Meats (beef, chicken, fish), specify types and number of daily servings:;Sodas, specify types and numberof daily servings:;Fruits, specify types and number of daily servings:;Fats, specify types and number of daily servings:;Dairy foods, specify types and number of daily servings: Pt: How often do you eat each day?[QM] 3 meals or more Pt: Do you know how to read food labels? Yes Pt: How much do you exercise? 3 or fewer times a week for at least 30 minutes Pt: What type of exercise do you do? Aerobic (eg, running, dancing) CM: Rate the patient's understanding of the monitoring and management of diabetes.[QM] 50% to 74% * Bess Villanueva RD - 08/08/2023 10:56 AM EST Patient Name: Andrew Arnold Patient : 1945 Primary Care Provider: Vivien Foreman MD Referred By: No ref. provider found Referral Diagnosis: Diabetes Type 2 Start Time: 11:00AM End Time: 12:00PM Nutrition Diagnosis: Altered nutrition-related lab values r/t endocrine dysfunction AEB A1C 9.2% Nutrition Goals: 30-60 grams of carbohydrates per meal; 15 grams of carbohydrates per snack Follow Up: Contact information provided for additional questions; will follow up in 1 month Check to see if patient heard back from endo about Ozempic rx + change in insulin to Tresiba / Toujeo, and Lyumjev for better insurance coverage. Assessment/Reason for Visit: Met with pt in office from [facility]. He is currently BGM with Goodybagstyle Johnny CGM. Pt states that his blood sugars are up and down often spiking soon after meals. Reports low blood sugars 1x/week on average. BG ranges 50-300 mg/dL. A1C at 9.2% and pt reportsthat he needs to improve in order to be eligible for possible upcoming surgery. Height: 67 Current Weight: 241# BMI: 37.7 kg/m2 BMI Classification: Obese Class II (35.0-39.9) Weight History: Wt Readings from Last 5 Encounters: 07/28/23 109.3 kg (241 lb) 07/20/23 108.4 kg (239 lb) 07/12/23 105.2 kg (232 lb) 06/30/23 106.1 kg (234 lb) 06/06/23 108.1 kg (238 lb 4.8 oz) Past Medical History: Past Medical History: Diagnosis Date Aortic valve calcification Arrhythmia Atrial fibrillation (HCC) after CABG CAD (coronary artery disease) 3 Vessel Claudication (HCC) Left lower extremity symptoms Fractures Hypertension Mitral valve annular calcification Myocardial infarction (HCC) 08/02/2015 Non-ST Obesity Oral cancer (HCC) Pilonidal cyst Subdural hematoma (HCC) 2008 minor trauma while on Plavix at the time. Tendonitis of wrist, right TIA (transient ischemic attack) 2007 was put on plavix then had subdural one year later. Vitreous hemorrhage of left eye (HCC) Social History: Social History Socioeconomic History Marital status: Tobacco Use Smoking status: Former Packs/day: 3.00 Years: 12.00 Additional pack years: 0.00 Total pack years: 36.00 Types: Cigarettes Quit date: 08/27/1973 Years since quittin.9 Smokeless tobacco: Former Types: Chew Vaping Use Vaping Use: Never used Substance and Sexual Activity Alcohol use: Not Currently Alcohol/week: 0.0 standard drinks of alcohol Drug use: No Sexual activity: Not Currently Partners: Female Social History Narrative Living with partner, 2 kids and one grand-duaghter Retired [place] department of [employer] in 2006 Social Determinants of Health Financial Resource Strain: Low Risk (06/14/2022) Overall Financial Resource Strain (CARDIA) Difficulty of Paying Living Expenses: Not hard at all Food Insecurity: No Food Insecurity (06/14/2022) Hunger Vital Sign Worried About Running Out of Food in the Last Year: Never true Ran Out of Food in the Last Year: Never true Transportation Needs: No Transportation Needs (06/14/2022) PRAPARE - Transportation Lack of Transportation (Medical): No Lack of Transportation (Non-Medical): No Social Connections: Unknown (06/14/2022) Social Connection and Isolation Panel [NHANES] Frequency of Social Gatherings with Friends and Family: Once a week History From: History obtained from chart review and the patient. Current/Pertinent Medications: Lantus 30 units @ HS Humalog 10-12 units at meals Ozempic - hasn't started this as pharmacy has not called him stating it was filled Other medications reviewed Lab Results Component Value Date HGBA1C 9.2 (H) 06/01/2023 HGBA1C 8.4 (H) 11/29/2022 HGBA1C 7.8 (H) 02/17/2022 HGBA1C 10.6 (H) 10/08/2021 Lab Results Component Value Date CHOL 126 06/01/2023 CHOL 107 11/29/2022 Lab Results Component Value Date TRIG 54 06/01/2023 TRIG 57 11/29/2022 Lab Results Component Value Date HDL 60 06/01/2023 HDL 50 11/29/2022 No results found for: LDL Nutrition Focused Physical Findings: Food Allergies/Intolerances: NKFA Cultural/Religous Dietary Needs: None Current Activity Level: Lightly Active with ADLs; uses the elliptical Diet History/Recall: Pt eats 3 meals/day on average. States that he used to do Nutrisystem in the past and that it worked well for him. Lives at home with significant other and grandchildren. Meals appear to lack balance of CHO & protein. Diet recall: Breakfast, 6am: Bowl of cereal or a yogurt and a banana Lunch, 12pm: Lunch meat sandwich with chips or pretzels Dinner, 5pm: Baked chicken, fried potatoes, rice, salad, and jello with mandarin oranges or meatloaf Snacks: Occasional Daily Fluids: Water, Diet pop Estimated Nutritional Needs: Calorie Needs: 1800 kcals/day [MSJ x 1.3AF -500 kcals/day to promote 1# weight loss/week] Intervention/Education Provided: Encouraged patient to utilize the plate method as a visual for meal planning. Discussed the importance of consistent mealtimes with consistent amounts of carbohydrates balanced with lean protein, fiber, and healthy fats for improved blood glucose control. Encourageduse of hands as visuals for portioning food items. Demonstrated how to read a food label & expla ined goal of 30-60 gms CHO @ meals and 15 gms CHO @ snacks. Discussed balanced meal & snack ideas. Reviewed s/sx hypoglycemia and 15/15 rule for treating low blood sugars. Patient/Family Education: Learner: Patient Readiness: Action - ready to set action plan and implement goals Barriers to Learning: None Method: Demonstration, explanation, and handout Response: Demonstrated understanding and verbalizes understanding Expected Adherence: Good Education Materials Provided: Macronutrient balanced plate method, diabetes snack list, easy meal ideas handout, 1800 calorie meal plan, generic sample meal plan with pictures, CHO counting handout Monitoring/Evaluation: SMBG, Weight, Food Record/Recall, Meal Planning, Physical Activity, Medication Management, Goal Assessment Bess Villanueva RDN, [place], [facility] Office Cell documented in this [id number] Telephone encounter Note* Telephone Encounter - Jeri Mccallum LPN - 08/08/2023 8:49 AM EST Last OV 07/20/23. Next OV 11/28/23. [id number] Miscellaneous Notes* Telephone Encounter - Jeri Mccallum LPN - 08/08/2023 8:49 AM EST Last OV 07/20/23. Next OV 11/28/23. documented in this [id number] History of Present illness Narrative* Sanju Bill III, - 07/28/2023 8:46 AM EST Assessment & Plan: 1. 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, bilateral legs(HCC) 2. PAD (peripheral artery disease) (HCC) 3. Poorly controlled diabetes mellitus (HCC) 4. Type 2 diabetes mellitus with other circulatory complication, with long-term current use of insulin (HCC) 5. Persistent atrial fibrillation (HCC) 6. halfway current use of anticoagulant 7. Obesity (BMI 30-39.9) 8. Aneurysm of ascending aorta without rupture (HCC) Plan: At the present time, Mr. Arnold continues to complain of claudication that seems to be somewhat stable, but he continues to be rather frustrated. I reviewed the CT angiogram results with him which shows some significant multilevel disease including bilateral common femoral and profundofemoral arteries as well as left SFA and popliteal occlusive disease. He has significant atherosclerotic calcification of both legs as well. Fortunately, he is healed previous skin cracking on the right heel without difficulty. I strongly recommend that he try to get his diabetes under good control. Review of hislast hemoglobin A1c's show significant elevation of greater than 9. From my perspective I am hesitant to put him through a major surgery with his glucose uncontrolled. As result, I instructed him to start exercising more, controlling his diet and trying to get his diabetes under better control, andhopefully lose weight prior to any surgical intervention. As a result, since he does not have critical limb ischemia, I think a continued conservative course is indicated. In addition, I did inform him of the findings of the CT angiogram of the pulmonary arteries which shows significant cardiac calcifications as well, and I recommended that he discuss with his aircraft sales representative these findings and potential treatment options (if any). We will see him back in the office in 3 months. If he is improved his clinical conditions including his diabetes and weight, and general status, then we can have a longer and stronger discussion regarding revascularization surgery. We will keep you informed, and we appreciate the opportunity to participate in his care. Follow Up Ordered: Return in about 3 months (around 10/27/2023) for Recheck in the [place] office. Subjective: Andrew Arnold is a 78 y.o. male seen in the office today for follow up regarding PAD with claudication. Mr. Snyder (birthdate 1945) was seen in the [place] office on July 28, 2023. It has been 1 month since he was seen last. He underwent a CT angiogram of the abdomen, pelvis, lower extremities on July 14, 2023. However, after that testing, he was noted to have a CT angiogram of the pulmonary arteries secondary to elevated D-dimer and significant cough. He has had no evidence of DVT in the lower extremities. He states that his cough is improving, but he continues to complain of significant lower extremity claudication and lifestyle limitation for ambulation distances. He continues to have poor control of his diabetes mellitus, and recognizes that his biggest weaknesses are starches (potato chips and potatoes, etc.). He does state that he is scheduled to be seen by either dietary wellness consultant and/or his endocrinology physician in the near future. He continues to take his medicationsincluding Eliquis as well as cilostazol. He denies any chest pain or shortness of breath. Histories: Past Medical History: Diagnosis Date Aortic valve calcification Arrhythmia Atrial fibrillation (HCC) after CABG CAD (coronary artery disease) 3 Vessel Claudication (HCC) Left lower extremity symptoms Fractures Hypertension Mitral valve annular calcification Myocardial infarction (HCC) 08/02/2015 Non-ST Obesity Oral cancer (HCC) Pilonidal cyst Subdural hematoma (HCC) 2008 minor trauma while on Plavix at the time. Tendonitis of wrist, right TIA (transient ischemic attack) 2007 was put on plavix then had subdural one year later. Vitreous hemorrhage of left eye (HCC) Past Surgical History: Procedure Laterality Date AORTIC VALVE REPLACEMENT CARDIAC CATHETERIZATION CARDIAC CATHETERIZATION N/A 12/25/2021 Procedure: Coronary Angiogram; Surgeon: Adilson Stone MD; Location: [facility]; Service: Cardiovascular CARDIAC CATHETERIZATION N/A 12/25/2021 Procedure: Left Heart Cath w/Grafts; Surgeon: Adilson Stone MD; Location: [facility]; Service: Cardiovascular CARDIAC VALVE REPLACEMENT CORONARY ARTERY BYPASS GRAFT 08/13/2015 3 Vessel/YEUNG to the LAD/SVG to obtuse marginal/SVG to a PDA MOUTH SURGERY 2007 Oral cancer TENDON RELEASE DEQUERVAINS Right 12/26/2018 Procedure: TENDON RELEASE DE QUERVAINS RIGHT; Surgeon: Jenaro Oquendo MD; Location: [facility]; Service: Orthopedic Family History Problem Relation Age of Onset COPD Mother Diabetes Father Stroke Paternal Grandmother Social History Tobacco Use Smoking status: Former Packs/day: 3.00 Years: 12.00 Additional pack years: 0.00 Total pack years: 36.00 Types: Cigarettes Quit date: 08/27/1973 Years since quittin.9 Smokeless tobacco: Former Types: Chew Vaping Use Vaping Use: Never used Substance Use Topics Alcohol use: Not Currently Alcohol/week: 0.0 standard drinks of alcohol Drug use: No Current Outpatient Medications Medication Sig Dispense Refill acetaminophen (TYLENOL) 325 MG tablet Take 2 (two) tablets (650 mg total) by mouth every 6 (six) hours as needed for pain (1-2 tablets) . apixaban (ELIQUIS) 5 mg Tab Take 1 (one) tablet (5 mg total) by mouth 2 (two) times a day . 60 tablet 11 ascorbic Acid (VITAMIN C) 500 mg CpER Take 1 (one) capsule (500 mg total) by mouth every other day . aspirin 81 MG EC tablet Take 1 tablet (81 mg total) by mouth daily. 90 tablet 3 blood sugar diagnostic (glucose blood) strips Dx code E11.9 use to check BG 4x daily. 150 strip 11 blood sugar diagnostic (RELION PRIME TEST STRIPS) strips E11.65 Use as directed 4 times per day. 150 strip 11 bumetanide (BUMEX) 1 MG tablet Take 0.5 (one-half) tablet (0.5 mg total) by mouth every other day .45 tablet 0 cilostazoL (PLETAL) 100 MG tablet TAKE 1 TABLET BY MOUTH TWICE DAILY ON AN EMPTY STOMACH 180 [id number] docusate sodium (COLACE) 100 MG capsule Take 1 (one) capsule (100 mg total) by mouth 2 (two) times a day as needed . escitalopram oxalate (LEXAPRO) 5 MG tablet Take 1 (one) tablet (5 mg total) by mouth daily . 30 tablet 11 flash glucose sensor (FreeStyle Johnny 2 Sensor) Kit 1 kit by Miscellaneous route every 14 (fourteen) days Use as directed to apply new sensor . 2 kit 11 insulin glargine (Lantus U-100 Insulin) 100 unit/mL injection Inject 28 (twenty eight) Units under the skin nightly . (Patient taking differently: Inject 30 (thirty) Units under the skin nightly .) 30 mL 3 insulin lispro (AdmeLOG,HumaLOG) 100 unit/mL injection USE DIRECTED, APPROXIMATELY 30 UNITS A DAY. . 30 mL 3 insulin syringe-needle U-100 0.3 mL 31 gauge x 5/16 Syrg Use as directed QID . 400 each 3 lancets Misc Use to check BG QID SolusV2 brand Dx E11.65. 200 each 11 lisinopriL (PRINIVIL,ZESTRIL) 20 MG tablet Take 1 (one) tablet (20 mg total) by mouth daily . 90 tablet 3 metoprolol succinate (TOPROL-XL) 25 MG 24 hr tablet Take 1 (one) tablet (25 mg total) by mouth daily . 90 tablet 0 pen needle, diabetic 31 gauge x /16 Ndle Use as directed 4 times daily. . 400 each 3 potassium chloride SA (K-DUR,KLOR-CON) 10 MEQ tablet Take 1 (one) tablet (10 mEq total) by mouth every other day . 45 tablet 3 psyllium (METAMUCIL) 0.52 gram capsule Take 2 (two) capsules (1.04 g total) by mouth as needed . semaglutide (Ozempic) 0.25 mg or 0.5 mg (2 mg/3 mL) Pen Inject 0.25 (one- quarter) mg under the skinonce a week for 28 days, THEN 0.5 (one-half) mg once a week. 9 mL 3 simvastatin (ZOCOR) 40 MG tablet Take 1 (one) tablet (40 mg total) by mouth at bedtime . 90 tablet 3 No current facility-administered medications for this visit. Allergies Allergen Reactions Pioglitazone GI Intolerance ROS Objective: Vitals: Vitals: 07/28/23 0846 07/28/23 0854 BP: 121/68 123/77 BP Location: Right arm Left arm Patient Position: Sitting Sitting Pulse: 68 85 Weight: 109.3 kg (241 lb) Height: 5' 7 Physical Exam Vitals reviewed. Constitutional: General: He is awake. Appearance: Normal appearance. He is well-developed. He is obese. HENT: Head: Normocephalic. Eyes: General: Lids are normal. Neck: Vascular: No JVD. Cardiovascular: Rate and Rhythm: Normal rate. Rhythm irregularly irregular. Pulses: Decreased pulses. Femoral pulses are 2+ on the right side and 2+ on the left side. Popliteal pulses are 0 on the right side and 0 on the left side. Dorsalis pedis pulses are 0 on the right side and 0 on the left side. Posterior tibial pulses are 0 on the right side and 0 on the left side. Heart sounds: Normal heart sounds. No murmur heard. Comments: Well-healed vein harvesting incision is noted the right lower extremity. Pulmonary: Effort: Pulmonary effort is normal. Abdominal: General: Abdomen is protuberant. Palpations: Abdomen is not rigid. Comments: Limited exam due to body habitus and obesity. Musculoskeletal: General: Normal range of motion. Cervical back: Neck supple. Right foot: Normal capillary refill. Abnormal pulse. Left foot: Normal capillary refill. Abnormal pulse. Feet: Right foot: Skin integrity: Skin breakdown (Abrasion on the dorsum of the right foot with small scabs.) and dryskin present. Left foot: Skin integrity: Skin breakdown (Small scab on the left third toe secondary to abrasion.) and dry skin present. Skin: General: Skin is warm and dry. Capillary Refill: Capillary refill takes less than 2 seconds. Findings: Abrasion (Dorsum right foot and left third toe tip) present. Comments: Anhidrosis as well as hair loss pattern changes are noted in bilateral feet and lower extremities. Neurological: General: No focal deficit present. Mental Status: He is alert and oriented to person, place, and time. Sensory: Sensory deficit (Decreased sensation to fine touch bilateral extremities consistent with diabetic neuropathy.) present. Motor: Motor function is intact. Coordination: Coordination is intact. Gait: Gait is intact. Psychiatric: Attention and Perception: Attention and perception normal. Mood and Affect: Mood and affect normal. Speech: Speech normal. Behavior: Behavior normal. Behavior is cooperative. Thought Content: Thought content normal. Lab Review: The following labs were reviewed and within the chart CT angiogram of the abdomen, pelvis, lower extremities performed on July 14, 2023 indicates severe atherosclerotic disease of bilateral lower extremities with occlusion of the distal left SFA and popliteal artery. There are diminutive calcified two-vessel runoff bilateral lower extremities with reconstitution of the posterior tibial via the collaterals of the mid calf. Soft tissue swelling of bilateral extremities is noted. Nonaneurysmal atherosclerotic disease of the aortic and iliac arteries are noted. (My personal review of the films identifies significant/severe atherosclerotic calcification of bilateral common femoral and profundofemoral arteries as well as SFAs and popliteal arteries, despite not being described.) Bilateral ankle brachial indices performed on June 30, 2023 indicates moderate right leg arterial disease with an ARIELLE of 0.63, and moderate left leg arterial disease with an ARIELLE of 0.56. CT angiogram of the pulmonary arteries performed on July 12, 2023 indicates no acute or chronic pulmonary embolic changes noted. Cardiomegaly is seen with severe coronary artery atherosclerotic calcifications. Reflux of contrast in the hepatic veins suggest some cardiac decompensation. Aneurysmalchanges of the thoracic aorta as described above is noted (ascending aorta measures 4.8 cm). Hemoglobin A1c performed on June 01, 2023 (as well as review of prior testing) is measured at 9.2 (normal is 4.0-5.6%). This is consistent for at least the last 2 years. Echocardiogram performed on March 22, 2023 indicates normal LV function with an EF of approximately 58% though technically limited. Normal RV size with reduced RV function. Status post aortic valve replacement with Alfred a Peñaloza bioprosthetic valve. No pulmonary hypertension is seen withestimated right ventricular systolic pressure of 32 mmHg. 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 Bilateral ankle-brachial indices performed on March 17, 2022 indicate unknown right ankle ARIELLE due to calcification, but based on waveform pattern there is moderate peripheral arterial disease. Left ankle ARIELLE is 0.67 suggesting mild arterial disease. documented in this [id number] Instructions* Patient Instructions* Nilsa Garza MA - 07/28/2023 8:46 AM EST How to contact your Care Team: Providers: DO Duane Centeno III, CNP Jill Bender, PA Nurse: Shaila Matos To reschedule office appointments call Scheduling [phone] In case of an emergency please call 911. When in need of refills please call the phone number listed above. Please include medication name, pharmacy name and specify 30 or 90 day supply Please check with your pharmacy within 24 hours of your request for refill. You must follow up as directed to continue current refills. Thank you! documented in this [id number] Instructions* Patient Instructions* Nilsa Garza MA - 06/30/2023 9:34 AM EST How to contact your Care Team: Providers: DO Duane Centeno III, CNP Jill Bender, PA Nurse: Shaila Matos To reschedule office appointments call Scheduling [phone] In case of an emergency please call 911. When in need of refills please call the phone number listed above. Please include medication name, pharmacy name and specify 30 or 90 day supply Please check with your pharmacy within 24 hours of your request for refill. You must follow up as directed to continue current refills. Thank you! documented in this [id number] History of Present illness Narrative* Sanju Bill III, DO - 06/30/2023 9:27 AM EST Assessment & Plan: 1. 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, bilateral legs(HCC) CT Angiogram Abdominal Aorta With Lower Extremity 2. PAD (peripheral artery disease) (HCC) CT Angiogram Abdominal Aorta With Lower Extremity 3. Type 2 diabetes mellitus with other circulatory complication, with long-term current use of insulin (HCC) 4. halfway current use of anticoagulant 5. Obesity (BMI 30-39.9) Plan: At the present time, Mr. Arnold continues to have significant claudication. However, he does state that the intensity and onset of his claudication symptoms seem to be all a bit less than that they have been in the past. However, he does state that he is extremely frustrated with his inability to walk distances and do the activities that he would like to do. As result, he is interested to see whather treatment options are. I did review his CT scan from July 2021 which did show significant common femoral and profundofemoral atherosclerotic disease which is probably playing a role in his PAD. However, this was a study that did not provide very good anatomical information other than generalatherosclerotic changes. Therefore, we will obtain a CT angiogram of the abdomen, pelvis, lower extremities within the next 2 to 3 weeks and see him back in the office in the middle of July to discuss treatment options. He is still not ready to make a decision to move ahead with surgery, but at this point in time we need more information to describe treatment options and choices to him. If there questions or concerns in the interval, he is to contact us. We will keep you informed, and we appreciate the opportunity to participate in his care. Follow Up Ordered: Return in about 4 weeks (around 07/28/2023) for Recheck. Subjective: Andrew Arnold is a 78 y.o. male seen in the office today for follow up regarding PAD with claudication. Mr. Arnold (birthdate 1945) was seen in the [place] office on June 30, 2023. It has been approximately 6 months since he was seen last. He states he is doing fairly well. He states that he just returned from a cruise to the [facility]. He says that he was walking up bleachers and did have significant claudication, but it seems to be not quite as intense or severe as it had been in the past. He is tolerating his medications satisfactory. He does have some superficial abrasions of the feet secondary to stubbing his toes in the ships cabin, but he states that they are healing without anydifficulty. He denies any tobacco use. He states that his sugars continue to be moderately to poorly controlled. He recognizes that it would benefit him if he lost weight. However, he denies any night pain, rest pain or gangrene or evidence of critical limb ischemia. He did undergo an ARIELLE in the office today prior to seeing me. Histories: Past Medical History: Diagnosis Date Aortic valve calcification Arrhythmia Atrial fibrillation (HCC) after CABG CAD (coronary artery disease) 3 Vessel Claudication (HCC) Left lower extremity symptoms Fractures Hypertension Mitral valve annular calcification Myocardial infarction (HCC) 08/02/2015 Non-ST Obesity Oral cancer (HCC) Pilonidal cyst Subdural hematoma (HCC) 2008 minor trauma while on Plavix at the time. Tendonitis of wrist, right TIA (transient ischemic attack) 2007 was put on plavix then had subdural one year later. Vitreous hemorrhage of left eye (HCC) Past Surgical History: Procedure Laterality Date AORTIC VALVE REPLACEMENT CARDIAC CATHETERIZATION CARDIAC CATHETERIZATION N/A 12/25/2021 Procedure: Coronary Angiogram; Surgeon: Adilson Stone MD; Location: [facility]; Service: Cardiovascular CARDIAC CATHETERIZATION N/A 12/25/2021 Procedure: Left Heart Cath w/Grafts; Surgeon: Adilson Stone MD; Location: [facility]; Service: Cardiovascular CARDIAC VALVE REPLACEMENT CORONARY ARTERY BYPASS GRAFT 08/13/2015 3 Vessel/YEUNG to the LAD/SVG to obtuse marginal/SVG to a PDA MOUTH SURGERY 2007 Oral cancer TENDON RELEASE DEQUERVAINS Right 12/26/2018 Procedure: TENDON RELEASE DE QUERVAINS RIGHT; Surgeon: Jenaro Oquendo MD; Location: Main OR; Service: Orthopedic Family History Problem Relation Age of Onset COPD Mother Diabetes Father Stroke Paternal Grandmother Social History Tobacco Use Smoking status: Former Packs/day: 3.00 Years: 12.00 Additional pack years: 0.00 Total pack years: 36.00 Types: Cigarettes Quit date: 08/27/1973 Years since quittin.8 Smokeless tobacco: Former Types: Chew Vaping Use Vaping Use: Never used Substance Use Topics Alcohol use: Not Currently Alcohol/week: 0.0 standard drinks of alcohol Drug use: No Current Outpatient Medications Medication Sig Dispense Refill acetaminophen (TYLENOL) 325 MG tablet Take 2 (two) tablets (650 mg total) by mouth every 6 (six) hours as needed for pain (1-2 tablets) . apixaban (ELIQUIS) 5 mg Tab Take 1 (one) tablet (5 mg total) by mouth 2 (two) times a day . 60 tablet 11 ascorbic Acid (VITAMIN C) 500 mg CpER Take 1 (one) capsule (500 mg total) by mouth every other day . aspirin 81 MG EC tablet Take 1 tablet (81 mg total) by mouth daily. 90 tablet 3 blood sugar diagnostic (glucose blood) strips Dx code E11.9 use to check BG 4x daily. 150 strip 11 blood sugar diagnostic (RELION PRIME TEST STRIPS) strips E11.65 Use as directed 4 times per day. 150 strip 11 bumetanide (BUMEX) 1 MG tablet Take 0.5 (one-half) tablet (0.5 mg total) by mouth every other day .45 tablet 0 cilostazoL (PLETAL) 100 MG tablet TAKE 1 TABLET BY MOUTH TWICE DAILY ON AN EMPTY STOMACH 180 [id number] docusate sodium (COLACE) 100 MG capsule Take 1 (one) capsule (100 mg total) by mouth 2 (two) times a day as needed . escitalopram oxalate (LEXAPRO) 5 MG tablet Take 1 (one) tablet (5 mg total) by mouth daily . 30 tablet 11 flash glucose sensor (FreeStyle Johnny 2 Sensor) Kit 1 kit by Miscellaneous route every 14 (fourteen) days Use as directed to apply new sensor . 2 kit 11 insulin glargine (Lantus U-100 Insulin) 100 unit/mL injection Inject 28 (twenty eight) Units under the skin nightly . (Patient taking differently: Inject 30 (thirty) Units under the skin nightly .) 30 mL 3 insulin lispro (AdmeLOG,HumaLOG) 100 unit/mL injection USE DIRECTED, APPROXIMATELY 30 UNITS A DAY. . 30 mL 3 insulin syringe-needle U-100 0.3 mL 31 gauge x 5/16 Syrg Use as directed QID . 400 each 3 lancets Misc Use to check BG QID SolusV2 brand Dx E11.65. 200 each 11 lisinopriL (PRINIVIL,ZESTRIL) 20 MG tablet Take 1 (one) tablet (20 mg total) by mouth daily . 90 tablet 3 metoprolol succinate (TOPROL-XL) 25 MG 24 hr tablet Take 1 (one) tablet (25 mg total) by mouth daily . 90 tablet 0 pen needle, diabetic 31 gauge x 3/16 Ndle Use as directed 4 times daily. . 400 each 3 potassium chloride SA (K-DUR,KLOR-CON) 10 MEQ tablet Take 1 (one) tablet (10 mEq total) by mouth every other day . 45 tablet 3 psyllium (METAMUCIL) 0.52 gram capsule Take 2 (two) capsules (1.04 g total) by mouth as needed . semaglutide (Ozempic) 0.25 mg or 0.5 mg (2 mg/3 mL) Pen Inject 0.25 (one- quarter) mg under the skinonce a week for 28 days, THEN 0.5 (one-half) mg once a week. 9 mL 3 simvastatin (ZOCOR) 40 MG tablet Take 1 (one) tablet (40 mg total) by mouth at bedtime . 90 tablet 3 No current facility-administered medications for this visit. Allergies Allergen Reactions Pioglitazone GI Intolerance ROS Objective: Vitals: Vitals: 06/30/23 0934 06/30/23 0942 BP: (!) 146/83 121/70 BP Location: Right arm Left arm Patient Position: Sitting Sitting Pulse: 87 86 Weight: 106.1 kg (234 lb) Height: 5' 7 Physical Exam Vitals reviewed. Constitutional: General: He is awake. Appearance: Normal appearance. He is well-developed. He is obese. HENT: Head: Normocephalic. Eyes: General: Lids are normal. Neck: Vascular: No JVD. Cardiovascular: Rate and Rhythm: Normal rate. Rhythm irregularly irregular. Pulses: Decreased pulses. Femoral pulses are 2+ on the right side and 2+ on the left side. Popliteal pulses are 0 on the right side and 0 on the left side. Dorsalis pedis pulses are 0 on the right side and 0 on the left side. Posterior tibial pulses are 0 on the right side and 0 on the left side. Heart sounds: Normal heart sounds. No murmur heard. Comments: Well-healed vein harvesting incision is noted the right lower extremity. Pulmonary: Effort: Pulmonary effort is normal. Abdominal: General: Abdomen is protuberant. Palpations: Abdomen is not rigid. Comments: Limited exam due to body habitus and obesity. Musculoskeletal: General: Normal range of motion. Cervical back: Neck supple. Right foot: Normal capillary refill. Abnormal pulse. Left foot: Normal capillary refill. Abnormal pulse. Feet: Right foot: Skin integrity: Skin breakdown (Abrasion on the dorsum of the right foot with small scabs.) and dryskin present. Left foot: Skin integrity: Skin breakdown (Small scab on the left third toe secondary to abrasion.) and dry skin present. Skin: General: Skin is warm and dry. Capillary Refill: Capillary refill takes less than 2 seconds. Findings: Abrasion (Dorsum right foot and left third toe tip) present. Comments: Anhidrosis as well as hair loss pattern changes are noted in bilateral feet and lower extremities. Neurological: General: No focal deficit present. Mental Status: He is alert and oriented to person, place, and time. Sensory: Sensory deficit (Decreased sensation to fine touch bilateral extremities consistent with diabetic neuropathy.) present. Motor: Motor function is intact. Coordination: Coordination is intact. Gait: Gait is intact. Psychiatric: Attention and Perception: Attention and perception normal. Mood and Affect: Mood and affect normal. Speech: Speech normal. Behavior: Behavior normal. Behavior is cooperative. Thought Content: Thought content normal. Lab Review: The following labs were reviewed and within the chart Bilateral ankle-brachial indices performed in the office on July 01, 2023 indicate moderate peripheral arterial disease in bilateral lower extremities. His right ankle ARIELLE 0.63, and his left ankle ARIELLE 0.56. When compared to his previous study from March 17, 2022, there has been no significant change in either leg. Clinical correlation advised. documented in this [id number] Telephone encounter Note* Telephone Encounter - Jeri Mccallum LPN - 06/24/2023 8:09 AM EST Last OV 01/21/23. Next OV 11/28/23. [id number] Miscellaneous Notes* Telephone Encounter - Jeri Mccallum LPN - 06/24/2023 8:09 AM EST Last OV 01/21/23. Next OV 11/28/23. documented in this [id number] Instructions* Patient Instructions* Radha Hughes CNP - 06/06/2023 9:20 AM EST Plan: 1. Rx changes: Adjust medications as below Humalog insulin: 13 units at breakfast; 8 units at lunch; 10 units at supper Lantus insulin: 30 units at bedtime Add 2 units to meal dose with larger/high carb meal Use as directed with Humalog insulin before meals and at bedtime. 151-200: 1 units fast acting insulin 201-250: 2 units fast acting insulin 251-300: 3 units fast acting insulin 301-350: 4 units fast acting insulin 351-400: 5 units fast acting insulin above 400: 6 units fast acting insulin Start ozempic 0.25 mg weekly for 4 weeks then increase to 0.5 mg weekly. documented in this [id number] History of Present illness Narrative* Radha Hughes CNP - 06/06/2023 9:03 AM EST Images from the original note were not included. Patient ID: Andrew Arnold is a 78 y.o. male 1945 Subjective: Andrew Arnold presents for follow-up of Type 2 diabetes Patient has had diabetes for 22 years. Diagnosed in 2000 Outpatient Medications Marked as Taking for the 06/06/23 encounter (Office Visit) with Radha Hughes CNP: acetaminophen (TYLENOL) 325 MG tablet, Take 2 (two) tablets (650 mg total) by mouth every 6 (six) hours as needed for pain (1-2 tablets) . apixaban (ELIQUIS) 5 mg Tab, Take 1 (one) tablet (5 mg total) by mouth 2 (two) times a day . ascorbic Acid (VITAMIN C) 500 mg CpER, Take 1 (one) capsule (500 mg total) by mouth every other day. aspirin 81 MG EC tablet, Take 1 tablet (81 mg total) by mouth daily. blood sugar diagnostic (glucose blood) strips, Dx code E11.9 use to check BG 4x daily. blood sugar diagnostic (RELION PRIME TEST STRIPS) strips, E11.65 Use as directed 4 times per day. bumetanide (BUMEX) 1 MG tablet, Take 0.5 (one-half) tablet (0.5 mg total) by mouth every other day . cilostazoL (PLETAL) 100 MG tablet, TAKE 1 TABLET BY MOUTH TWICE DAILY ON AN EMPTY STOMACH docusate sodium (COLACE) 100 MG capsule, Take 1 (one) capsule (100 mg total) by mouth 2 (two) timesa day as needed . escitalopram oxalate (LEXAPRO) 5 MG tablet, Take 1 (one) tablet (5 mg total) by mouth daily . flash glucose sensor (FreeStyle Johnny 2 Sensor) Kit, 1 kit by Miscellaneous route every 14 (fourteen) days Use as directed to apply new sensor . insulin glargine (Lantus U-100 Insulin) 100 unit/mL injection, Inject 28 (twenty eight) Units underthe skin nightly . insulin lispro (AdmeLOG,HumaLOG) 100 unit/mL injection, USE DIRECTED, APPROXIMATELY 30 UNITS A DAY. . insulin syringe-needle U-100 0.3 mL 31 gauge x 5/16 Syrg, Use as directed QID . lancets [facility] Use to check BG QID SolusV2 brand Dx E11.65. lisinopriL (PRINIVIL,ZESTRIL) 20 MG tablet, Take 1 (one) tablet (20 mg total) by mouth daily . metoprolol succinate (TOPROL-XL) 25 MG 24 hr tablet, Take 1 (one) tablet (25 mg total) by mouth daily . pen needle, diabetic 31 gauge x 3/16 Ndle, Use as directed 4 times daily. . potassium chloride SA (K-DUR,KLOR-CON) 10 MEQ tablet, Take 1 (one) tablet (10 mEq total) by mouth every other day . psyllium (METAMUCIL) 0.52 gram capsule, Take 2 (two) capsules (1.04 g total) by mouth as needed . simvastatin (ZOCOR) 40 MG tablet, Take 1 (one) tablet (40 mg total) by mouth at bedtime . Review of Systems: Review of Systems Constitutional: Negative for fatigue and unexpected weight change. HENT: Positive for hearing loss. Negative for trouble swallowing. Eyes: Negative for visual disturbance. Respiratory: Negative for cough and shortness of breath. Cardiovascular: Negative for chest pain and leg swelling. Gastrointestinal: Negative for abdominal pain, constipation, diarrhea, nausea and vomiting. Endocrine: Negative for polydipsia, polyphagia and polyuria. Genitourinary: Negative for frequency and urgency. Skin: Negative for wound. Neurological: Positive for weakness (pain with walking) and numbness. Negative for headaches. Psychiatric/Behavioral: Negative for agitation and sleep disturbance. The patient is not nervous/anxious. The following portions of the patient's history were reviewed and updated as appropriate: allergies, current medications, past family history, past medical history, past social history, past surgicalhistory and problem list. Objective: BP (!) 153/83 (BP Location: Left arm) Pulse 74 Wt 108.1 kg (238 lb 4.8 oz) BMI 37.32 kg/m Wt Readings from Last 3 Encounters: 06/06/23 108.1 kg (238 lb 4.8 oz) 03/04/23 104.8 kg (231 lb) 01/21/23 103.9 kg (229 lb) Physical Exam: General: alert, appears stated age and cooperative Eyes: conjunctivae/corneas clear. PERRL, EOM's intact. Neck: no adenopathy, supple, symmetrical, trachea midline. Thyroid: No thyromegaly appreciated Lung: clear to auscultation bilaterally Heart: regular rate and rhythm, S1, S2 normal, no murmur, click, rub or gallop Extremities: extremities normal, atraumatic, no cyanosis or edema Feet: Dry skin, Bilateral Feet: warm, good capillary refill and normal DP. Monofilament exam abnormal, bilateral lower extremities. 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 Neuro: normal without focal findings, mental status, speech normal, alert and oriented x3 and SIERRA Laboratory Review: BP (!) 153/83 (BP Location: Left arm) Pulse 74 Wt 108.1 kg (238 lb 4.8 oz) BMI 37.32 kg/m Lab Results Component Value Date HGBA1C 9.2 (H) 06/01/2023 Glucose (mg/dL) Date Value 06/01/2023 217 (H) Creatinine (mg/dL) Date Value 06/01/2023 1.26 05/05/2020 0.94 Lab Results Component Value Date CHOL 126 06/01/2023 TRIG 54 06/01/2023 HDL 60 06/01/2023 LDLCALC 55 06/01/2023 Lab Results Component Value Date TSH 1.80 01/21/2023 Lab Results Component Value Date WBC 6.49 01/21/2023 HGB 12.4 (L) 01/21/2023 HCT 38.0 (L) 01/21/2023 MCV 85.2 01/21/2023 PLT 187 01/21/2023 Date: 06/01/23 *labs reviewed 06/06/23 Hgb A1c: 9.2% Creat: 1.26; eGFR: 58 AST: 19; ALT: 21 K: 4.9 Tchol: 126; Tri ; HDL: 60 ; LDL: 55 11/29/22 Hgb A1c: 8.4% Creat: 0.94; eGFR: 83 AST: 25; ALT: 27 K: 4.8 Tchol: 107; Tri ; HDL: 50 ; LDL: 46 TSH: 1.58 ; FreeT4: 1.0 Microalbumin/creatinine Ratio: 22 02/17/22 Hgb A1c: 7.8% Creat: 0.97; eGFR: 80 AST: 24; ALT: 30 K: 4.9 CBC: WBC:6.34; Hgb: 12.7; Hct: 39.3; Plt: 157 10/08/21 Hgb A1c: 10.6% Creat: 1.14; eGFR: 62 AST: 24; ALT: 20 K: 4.8 Tchol: 130; Tri ; HDL: 47 ; LDL: 67 TSH: 1.99 ; FreeT4: 1.1 06/12/21 Hgb A1c: 9.4% Creat: 1.22; eGFR: 57 AST: 17; ALT: 23 K: 4.7 TSH: 1.85 ; FreeT4: 1.1 02/25/21 Hgb A1c: 10.1% Creat: 0.91; eGFR: 82 AST: 21; ALT: 21 K: 4.6 TSH: 1.54 ; FreeT4: 1.2 12/17/20 Hgb A1c: 12.5% Creat: 1.18; eGFR: 60 AST: 13; ALT: 20 K: 4.6 CBC: WBC:6.30; Hgb: 13.4; Hct: 41.1; Plt: 175 Tchol: 124; Tri ; HDL: 56 ; LDL: 56 TSH: 2.05 Microalbumin/creatinine Ratio: 41 05/05/20 Hgb A1c: 8.9% Creat: 0.94; eGFR: >60 K: 4.0 TSH: 2.39 ; FreeT4: 1.10 12/27/19 Hgb A1c: 9.0% Creat: 0.98; eGFR: >60 AST: 14; ALT: 21 K: 4.6 CBC: WBC:7.0; Hgb: 14.0; Hct: 42.7; Plt: 201 Tchol: 133; Tri ; HDL: 52 ; LDL: 70 TSH: 2.72 ; FreeT4: 1.05 02/20/19 Hgb A1c: 8.8% Creat: 1.0; eGFR: >60 AST: 22; ALT: 25 K: 4.1 10/23/2018 Hemoglobin A1c 9.7% Creatinine 1.00, EGFR >60, K4.2 AST 22, ALT 31 Microalbumin/creatinine ratio: 12 TSH 2.03, free T4 0.87 T cholesterol 118, TG 49, HDL 51, LDL 57 CBC: H/H 14.3/42.6, WBC 5.2, platelets 180,000 06/20/18 Hgb A1c: 6.3% Creat: 0.9; eGFR: >60 AST: 25; ALT: 17 K: 4.3 Assessment/Plan: Dx: 1. Type 2 diabetes mellitus with retinopathy of both eyes, with long-term current use of insulin, macular edema presence unspecified, unspecified retinopathy severity (HCC) 2. Primary hypertension Type 2 diabetes, under fair control Currently taking: No oral hypoglycemic medications Humalog insulin: 11 units at breakfast; 7 units at lunch; 7 units at supper Lantus insulin: 28 units at bedtime Current Hemoglobin A1C= Lab Results Component Value Date HGBA1C 9.2 (H) 06/01/2023 HGBA1C 8.4 (H) 11/29/2022 HGBA1C 7.8 (H) 02/17/2022 Weight trend: has increased 4 lbs. Current diet: carb controlled, avoiding concentrated sugars Doing much better. Current exercise: none Current monitoring regimen: home blood tests - 4 times daily utilizing Get[employer] johnny CGM. Download reviewed 06/06/23 Home blood sugar records: Fasting B-220 Pre-lunch B-294 Pre-supper B-258 Bedtime BG: Any episodes of hypoglycemia? Occasionally, typically <1 time weekly. Aware of lows. NOTES: Hgb A1c improved significantly to 7.8% from 10.1% from 12.5% December 2020. Patient currently onQID insulin. Off trulicity due to cost. PLAN: See below Retinopathy: Positive: Background diabetic retinopathy and Laser Treatment Exam within last 12 months: yes Date: Store Administrative Assistant/Lang Interpreter: Other Ophthalmologic Conditions: None known Nephropathy: Negative Creat: 0.97 03/01 Lab Results Component Value Date CREATININE 1.26 06/01/2023 EXTEGFR >60 12/27/2019 EXTEGFRAFAME >60 12/27/2019 Microlbumin/creat ratio: No results found for: EXTMICROALBC Is patient on PATRICIA inhibitor or angiotensin II receptor julia? yes Lisinopril Peripheral Neuropathy: Positive Reports bilateral numbness and tingling in feet Autonomic Neuropathy: Negative Hypoglycemia unawareness. Senses low BG at <100 mg/dl. Other: Hyperlipidemia: Positive Currently taking: simvastatin (Zocor). LFT's WNL Lab Results Component Value Date AST 19 06/01/2023 ALT 21 06/01/2023 Lab Results Component Value Date EXTCHOL 133 12/27/2019 EXTTRIG 56 12/27/2019 EXTHDL 52 12/27/2019 EXTLDLCALC 70 12/27/2019 Hypertension: Positive. Currently taking: bumetanide (Bumex), lisinopril (Prinivil) and metoprolol (Lopressor, Toprol) BP: (!) 153/83 Cardiac: Positive Atrial fibrillation. On eliquis. Experiencing chest pain No . 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 Healy Vascular: Following with Dr. Bill. History of PVD. Feet: Last foot exam: 03/01 Follows with Podiatry: Yes Professor Of Theater: Dr. 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 Podiatry notes elevated limb loss risk score he does qualify for diabetic shoes. . Thyroid: Lab Results Component Value Date TSH 1.80 01/21/2023 Negative Other: from colon cancer March 2017. Had COVID-19 vaccine in [place]. Plan: 1. Rx changes: Adjust medications as below Humalog insulin: 13 units at breakfast; 8 units at lunch; 10 units at supper Lantus insulin: 30 units at bedtime Add 2 units to meal dose with larger/high carb meal Use as directed with Humalog insulin before meals and at bedtime. 151-200: 1 units fast acting insulin 201-250: 2 units fast acting insulin 251-300: 3 units fast acting insulin 301-350: 4 units fast acting insulin 351-400: 5 units fast acting insulin above 400: 6 units fast acting insulin Start ozempic 0.25 mg weekly for 4 weeks then increase to 0.5 mg weekly. Mr. Arnold would benefit from continued use of Sw[employer] continuous glucose monitoring system. Patient has had Type 2 diabetes for 21 years. Complications include diabetic neuropathy and CAD Patient is currently managed with: insulin injections Patient has been checking their blood sugar 4 times per day Patient is positive for a history of reoccurring hypoglycemia <50. Patient is predisposed to hypoglycemia, and has had 2 hypoglycemic episodes in the last 7 days. Patient's most recent Hgb A1c was 7.8% on 03/01 Patient's HGb is <6.0% or >8.5% Patient currently takes insulin injections 4 times daily. Patient is negative for a history of hypoglycemic unawareness Patient has inadequate control despite compliance with multiple alterations in insulin doses/medication regimen. 2. Education: Reviewed ABCs of diabetes management (respective goals in parentheses): A1C (7.0-8.0), blood pressure (<130/80), and cholesterol (LDL <100). 3. Compliance at present is estimated to be fair. Efforts to improve compliance (if necessary) willbe directed at increased exercise. Also, will be directed at dietary modifications: Limit starches,carbohydrates and concentrated sugar sources 4. Follow up: 4 months 5. Record blood sugar readings as instructed. Call if BG consistently <70 or >250. [phone] Patient has been checking blood glucoses 4 times daily for the past 90 days. Patient needs to continue checking blood glucoses 4 times daily. Blood glucose readings are used to adjust medication or insulin doses for meals, monitor dietary compliance, and adjust for high or low blood glucoses by patient on a daily basis. Blood glucose readings are reviewed at office visits for adjustment in medication regimen and assistance with dietary management, and other self- management issues including exercise, etc. Prognosis: Good. Duration of need for diabetes testing equipment: Permanent #150 strips/month prescribed. 6. Bring blood sugar meter to follow up appointment. Orders Placed This Encounter Procedures Comprehensive Metabolic Panel Hemoglobin A1c T4, Free TSH documented in this [id number] History of Present illness Narrative* Hola Arroyo Jr., DPOlegario - 05/13/2023 8:18 AM EDT Nail care Patient is a pleasant 77year-old male who comes in today for nail care. His geriatric status and diabetes is managed by primary including Dr. Foreman. Comes in today for nail care. Physical Vascular: DP pulses are palpable 2-4. PT pulses are nonpalpable due to edema. +1 foot and ankle edema. Skin is shiny atrophic dysvascular with absence of hair growth. Feet are warm to cool proximal to distal. Nails left foot [id number] and right foot [id number] are elongated thickened mycotic crumbling dystrophic. Neuro: Light blunted at 3-6 sites bilaterally. Babinski's is blunted. Musculoskeletal: Can easily wiggle toes not any clicking or catching. Mild hammering of the distal digits 2 through 4 right and left foot with some pes planovalgus foot type. 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 -Given his elevated limb loss risk score he does qualify for nail care. Procedure: After timeout consent was performed, sharply debrided and debulk in height and length 10onychomycotic nails with a sharp around nail nippers consistent with a q8 modifier. Follow-up in 3 months documented in this [id number] Evaluation + Plan note* Assessment & Plan Note - Preston Healy MD - 03/04/2023 4:36 PM EDT Associated Problem(s): S/P aortic valve replacement Mayeck echo. [id number] Miscellaneous Notes* Assessment & Plan Note - Preston Healy MD - 03/04/2023 4:36 PM EDTAssociated Problem(s): S/P aortic valve replacement Recheck echo. * Assessment & Plan Note - Preston Healy MD - 03/04/2023 4:35 PM EDT Associated Problem(s): S/P CABG (coronary artery bypass graft) Rare if any angina. Somewhat atypical chest discomfort medical therapy * Assessment & Plan Note - Preston Healy MD - 03/04/2023 4:35 PM EDT Associated Problem(s): A-fib (HCC) Check echocardiogram for LV function and a degree of aortic stenosis documented in this [id number] Evaluation + Plan note* Assessment & Plan Note - Preston Healy MD - 03/04/2023 4:35 PM EDT Associated Problem(s): S/P CABG (coronary artery bypass graft) Rare if any angina. Somewhat atypical chest discomfort medical therapy [id number] Evaluation + Plan note* Assessment & Plan Note - Preston Healy MD - 03/04/2023 4:35 PM EDTAssociated Problem(s): A-fib (HCC) Check echocardiogram for LV function and a degree of aortic stenosis [id number] History of Present illness Narrative* Preston Healy MD - 03/04/2023 8:40 AM EDT [facility] [address] [facility] [address] [facility] [id number] Subjective: Andrew Arnold is a 77 y.o. male seen in the office today for Chief Complaint Patient presents with Follow-up 6 mo - occasional cp left sided states its been going on for years, asking ab keto diet Denies any significant chest pains. Is limited by his claudication lower extremities following closely with [facility]. EKG A-fib chronic rate controlled right bundle branch block left axis. History of mild aortic stenosis. Soft systolic murmur no signs of any heart failure or significant angina pectoris. Heart cath reviewed from 2021 normal renal function. History of diabetes follows closely with PCP and endocrinology. Excellent lipid panel. Plan check echocardiogram for degree of prosthetic aortic stenosis make sure LV function is intact with his right bundle branch block left axis QRS 175 ms. Denies any syncope or near syncope. Otherwise see back in 6 months. Potassium chloride reduced to 10 mill equivalents every other day based on recent potassium 4.9 renal function reviewed. Overview of Problems Addressed: Problem A-Fib ([facility]) Holter monitor A. fib throughout with rate controlled. Otherwise unremarkable. Rate control oral anticoagulation. New finding EKG January 09, 2021 A. fib patient essentially asymptomatic with it. Did have a history ofA. fib after his coronary bypass grafting with cardioversion at that time. No known recurrent A. fib until today. Wide QRS as before. Tolerates it well has had a little bit of lightheadedness here and there. Heart rate 75. S/P Cabg (Coronary Artery Bypass Graft) Heart cath December 2021 patent grafts severe [place] coronary artery disease Medical therapy ON 08/11/[address] SONAM MÉNDEZ History of coronary bypass grafting 3 History of tissue aortic valve replacement early August 2015. S/P Aortic Valve Replacement 08/26 tissue AVR. 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 2021 Assessment & Plan: As above. A-fib ([facility]) Check echocardiogram for LV function and a degree of aortic stenosis S/P CABG (coronary artery bypass graft) Rare if any angina. Somewhat atypical chest discomfort medical therapy S/P aortic valve replacement Recheck echo. Histories: Past Medical History: Diagnosis Date Aortic valve calcification Arrhythmia Atrial fibrillation (HCC) after CABG CAD (coronary artery disease) 3 Vessel Claudication ([facility]) Left lower extremity symptoms Fractures Hypertension Mitral valve annular calcification Myocardial infarction (HCC) 08/02/2015 Non-ST Obesity Oral cancer (HCC) Pilonidal cyst Subdural hematoma ([facility]) 2008 minor trauma while on Plavix at the time. Tendonitis of wrist, right TIA (transient ischemic attack) 2007 was put on plavix then had subdural one year later. Vitreous hemorrhage of left eye ([facility]) Past Surgical History: Procedure Laterality Date AORTIC VALVE REPLACEMENT CARDIAC CATHETERIZATION CARDIAC CATHETERIZATION N/A 12/25/2021 Procedure: Coronary Angiogram; Surgeon: Adilson Stone MD; Location[facility]; Service: Cardiovascular CARDIAC CATHETERIZATION N/A 12/25/2021 Procedure: Left Heart Cath w/Grafts; Surgeon: Adilson Stone MD; Location: [facility]; Service: Cardiovascular CARDIAC VALVE REPLACEMENT CORONARY ARTERY BYPASS GRAFT 08/13/2015 3 Vessel/YEUNG to the LAD/SVG to obtuse marginal/SVG to a PDA MOUTH SURGERY 2007 Oral cancer TENDON RELEASE DEQUERVAINS Right 12/26/2018 Procedure: TENDON RELEASE DE QUERVAINS RIGHT; Surgeon: Jenaro Oquendo MD; Location: Main OR; Service: Orthopedic Family History Problem Relation Age of Onset COPD Mother Diabetes Father Stroke Paternal Grandmother Social History Tobacco Use Smoking status: Former Packs/day: 3.00 Years: 12.00 Additional pack years: 0.00 Total pack years: 36.00 Types: Cigarettes Quit date: 08/27/1973 Years since quittin.5 Smokeless tobacco: Former Types: Chew Vaping Use Vaping Use: Never used Substance Use Topics Alcohol use: Not Currently Alcohol/week: 0.0 standard drinks of alcohol Drug use: No Patient's Medications New Prescriptions POTASSIUM CHLORIDE SA (K-DUR,KLOR-CON) 10 MEQ TABLET Take 1 (one) tablet (10 mEq total) by mouth every other day . Previous Medications ACETAMINOPHEN (TYLENOL) 325 MG TABLET Take 2 (two) tablets (650 mg total) by mouth every 6 (six) hours as needed for pain (1-2 tablets) . APIXABAN (ELIQUIS) 5 MG TAB Take 1 (one) tablet (5 mg total) by mouth 2 (two) times a day . ASCORBIC ACID (VITAMIN C) 500 MG CPER Take 1 (one) capsule (500 mg total) by mouth every other day . ASPIRIN 81 MG EC TABLET Take 1 tablet (81 mg total) by mouth daily. BLOOD SUGAR DIAGNOSTIC (GLUCOSE BLOOD) STRIPS Dx code E11.9 use to check BG 4x daily. BLOOD SUGAR DIAGNOSTIC (RELION PRIME TEST STRIPS) STRIPS E11.65 Use as directed 4 times per day. BUMETANIDE (BUMEX) 1 MG TABLET Take 0.5 (one-half) tablet (0.5 mg total) by mouth every other day . CILOSTAZOL (PLETAL) 100 MG TABLET TAKE 1 TABLET BY MOUTH TWICE DAILY ON AN EMPTY STOMACH DOCUSATE SODIUM (COLACE) 100 MG CAPSULE Take 1 (one) capsule (100 mg total) by mouth 2 (two) times a day as needed . ESCITALOPRAM OXALATE (LEXAPRO) 5 MG TABLET Take 1 (one) tablet (5 mg total) by mouth daily . FLASH GLUCOSE SENSOR (FREESTYLE JOHNNY 2 SENSOR) KIT 1 kit by Miscellaneous route every 14 (fourteen) days Use as directed to apply new sensor . INSULIN GLARGINE (LANTUS U-100 INSULIN) 100 UNIT/ML INJECTION Inject 28 (twenty eight) Units under the skin nightly . INSULIN LISPRO (ADMELOG,HUMALOG) 100 UNIT/ML INJECTION USE DIRECTED, APPROXIMATELY 30 UNITS A DAY. . INSULIN SYRINGE-NEEDLE U-100 0.3 ML 31 GAUGE X 5/16 SYRG Use as directed QID . LANCETS MISC Use to check BG QID SolusV2 brand Dx E11.65. LISINOPRIL (PRINIVIL,ZESTRIL) 20 MG TABLET Take 1 (one) tablet (20 mg total) by mouth daily . METOPROLOL SUCCINATE (TOPROL-XL) 25 MG 24 HR TABLET Take 1 (one) tablet (25 mg total) by mouth daily . PEN NEEDLE, DIABETIC 31 GAUGE X 3/16 NDLE Use as directed 4 times daily. . PSYLLIUM (METAMUCIL) 0.52 GRAM CAPSULE Take 2 (two) capsules (1.04 g total) by mouth as needed . SIMVASTATIN (ZOCOR) 40 MG TABLET Take 1 (one) tablet (40 mg total) by mouth at bedtime . Modified Medications No medications on file Discontinued Medications POTASSIUM CHLORIDE 20 MEQ TBER TAKE 1 TABLET BY MOUTH EVERY OTHER DAY Allergies Allergen Reactions Pioglitazone GI Intolerance Review of Systems Constitutional: Negative for malaise/fatigue. Cardiovascular: Positive for chest pain. Negative for dyspnea on exertion, leg swelling and palpitations. Sharp atypical Neurological: Negative for dizziness. Objective: Physical Exam Vitals and nursing note reviewed. Constitutional: General: He is not in acute distress. Appearance: He is well-developed. He is not diaphoretic. HENT: Head: Normocephalic. Eyes: General: No scleral icterus. Comments: Pupils reactive Neck: Vascular: No JVD. Cardiovascular: Rate and Rhythm: Rhythm irregular. Pulses: Radial pulses are 2+ on the right side and 2+ on the left side. Heart sounds: S1 normal and S2 normal. Murmur heard. No gallop. No S3 or S4 sounds. Comments: 2- 3/6 systolic murmur right sternal border. No diastolic murmur heard. Pulmonary: Effort: No respiratory distress. Breath sounds: Normal breath sounds. No stridor. No wheezing or rales. Abdominal: General: There is no distension. Palpations: Abdomen is soft. Tenderness: There is no abdominal tenderness. There is no guarding. Musculoskeletal: General: No tenderness. Comments: Trace pedal edema. Skin: General: Skin is warm and dry. Neurological: Mental Status: He is alert and oriented to person, place, and time. Coordination: Coordination normal. Vitals: Vitals: 03/04/23 0810 BP: 123/79 BP Location: Left arm Patient Position: Sitting BP Cuff Size: Adult Pulse: 84 SpO2: 93% Weight: 104.8 kg (231 lb) Height: 5' 7 Body mass index is 36.18 kg/m . Orders Placed This Encounter Procedures ECG 12 Lead Order Specific Question: Release to patient Answer: Immediate Echocardiogram complete Standing Status: Future Standing Expiration Date: 03/04/2024 Order Specific Question: Reason for exam Answer: Dyspnea Order Specific Question: Release to patient Answer: Immediate Follow Up Ordered: Return in about 6 months (around 09/04/2023). Preston Healy MD * Tianna Conn MA - 03/04/2023 8:09 AM EDT Review of Systems Constitutional: Negative for malaise/fatigue. Cardiovascular: Positive for chest pain. Negative for dyspnea on exertion, leg swelling and palpitations. Neurological: Negative for dizziness. documented in this [id number] Instructions* Patient Instructions* Tianna Conn MA - 02/22/2023 2:41 PM EDT How to Contact your Care Team: Provider: Dr. Preston Healy MD Silk Screen Layout Drafter: Yun Darnell, RYLEY documented in this [id number] Evaluation + Plan note* Assessment & Plan Note - Vivien Foreman MD - 01/21/2023 10:24 AM EDTAssociated Problem(s): Diarrhea Chronic , will start with blood work to rule out infection and food intolerance Could be a side effect of the colace , hold and monitor Try to cut down on lactose and see if that helps If that didn't help along with fiber intake ,we will look into GI referral and possible colonoscopy [id number] Miscellaneous Notes* Assessment & Plan Note - Vivien Foreman MD - 01/21/2023 10:24 AM EDTAssociated Problem(s): Diarrhea Chronic , will start with blood work to rule out infection and food intolerance Could be a side effect of the colace , hold and monitor Try to cut down on lactose and see if that helps If that didn't help along with fiber intake ,we will look into GI referral and possible colonoscopy * Assessment & Plan Note - Vivien Foreman MD - 01/21/2023 10:17 AM EDTAssociated Problem(s): 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, bilateral legs (HCC) Meeting with vascular in 6 months, stable and improving on cilostazol, simvastatin, aspirin and eliquis * Assessment & Plan Note - Vivien Foreman MD - 01/21/2023 10:16 AM EDTAssociated Problem(s): A-fib (HCC) Doing well, asymptomatic , stable on eliquis and metoprolol documented in this [id number] Evaluation + Plan note* Assessment & Plan Note - Vivien Foreman MD - 01/21/2023 10:17 AM EDTAssociated Problem(s): 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, bilateral legs (HCC) Meeting with vascular in 6 months, stable and improving on cilostazol, simvastatin, aspirin and eliquis [id number] Evaluation + Plan note* Assessment & Plan Note - Vivien Foreman MD - 01/21/2023 10:16 AM EDTAssociated Problem(s): A-fib (HCC) Doing well, asymptomatic , stable on eliquis and metoprolol [id number] History of Present illness Narrative* Vivien Foreman MD - 01/21/2023 9:58 AM EDT Chief Complaint Patient presents with Follow-up 6 month f/u Gap Closure (Health Maintenance) There are no preventive care reminders to display for this patient. HPI: Andrew Arnold is a 75-year-old gentleman presenting today for routine check. PMH of CAD s/p CABG bypass grafting x3, s/p AVR, postoperative A. 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 Currently his partner is also having heart problems and is worried about her. Was offered a grief therapy but was hesitant to join and thought he can handle it on his own. Sleep is poor since his CABG surgery in 2015. Has lost his daughter in March for complication of diabetes , worried about his 16 yo granddaughter who found her in the house. Currently having to dealing with all her belongings. Receiving therapy through a hospice service. Having a supportive family ith his partner , and his son. denies any SI or HI. PHQ9 score 10 today , patient is doing much better on Lexapro 5 mg which was also noticed by his partner and coping well. Diarrhea: Chronic for the past 6 months intermittent fluctuating , unsure if it is related to certain foods. No abdominal pain or blood in stool , no N/V. HTN: Was previously controlled on lisinopril 10 mg , last visit was borderline uncontrolled. Increased lisinopril to 20 mg and has been feeling better and denies any concerns for CP, SOB, POLLACK, blurry vision , tingling/ numbness in extremities. Chest discomfort: Left-sided chest pain occurs every other day sometimes with minimal exertion or when working on [employer] and sometimes while watching TV. Associated with mild dizziness for few seconds. Denies any associated shortness of breath or radiation to the left shoulder or left neck, no association with any nausea Left heart cath came back with patent graft, obstruction in non vascularized diagonal branch, considering PCI but trying medical management at this time. Echo was also performed on 12/22/2021 showing LVEF of 59%, and moderate aortic stenosis with dilation of aortic root and ascending aorta. Patient is already feeling better and not having chest pain symptoms. Intermittent claudications: Mentioned that for a while now he has been having trouble walking through [place] that he needs to stop given pain in bilateral anterior thighs. Following up with cardiology and vascular medicine, improving on cilostazol Past Medical History: Diagnosis Date Aortic valve calcification Arrhythmia Atrial fibrillation (HCC) after CABG CAD (coronary artery disease) 3 Vessel Claudication (HCC) Left lower extremity symptoms Fractures Hypertension Mitral valve annular calcification Myocardial infarction (HCC) 08/02/2015 Non-ST Obesity Oral cancer (HCC) Pilonidal cyst Subdural hematoma (HCC) 2008 minor trauma while on Plavix at the time. Tendonitis of wrist, right TIA (transient ischemic attack) 2007 was put on plavix then had subdural one year later. Vitreous hemorrhage of left eye (HCC) Past Surgical History: Procedure Laterality Date AORTIC VALVE REPLACEMENT CARDIAC CATHETERIZATION CARDIAC CATHETERIZATION N/A 12/25/2021 Procedure: Coronary Angiogram; Surgeon: Adilson Stone MD; Location: [facility]; Service: Cardiovascular CARDIAC CATHETERIZATION N/A 12/25/2021 Procedure: Left Heart Cath w/Grafts; Surgeon: Adilson Stone MD; Location: [facility]; Service: Cardiovascular CARDIAC VALVE REPLACEMENT CORONARY ARTERY BYPASS GRAFT 08/13/2015 3 Vessel/YEUNG to the LAD/SVG to obtuse marginal/SVG to a PDA MOUTH SURGERY 2007 Oral cancer TENDON RELEASE DEQUERVAINS Right 12/26/2018 Procedure: TENDON RELEASE DE QUERVAINS RIGHT; Surgeon: Jenaro Oquendo MD; Location: Main OR; Service: Orthopedic Family History Problem Relation Age of Onset COPD Mother Diabetes Father Stroke Paternal Grandmother Social History Tobacco Use Smoking status: Former Packs/day: 3.00 Years: 12.00 Total pack years: 36.00 Types: Cigarettes Quit date: 08/27/1973 Years since quittin.4 Smokeless tobacco: Former Types: Chew Vaping Use Vaping Use: Never used Substance Use Topics Alcohol use: Not Currently Alcohol/week: 0.0 standard drinks of alcohol Drug use: No Review of Systems Vitals: 01/21/23 0942 BP: 115/66 BP Location: Right arm Patient Position: Sitting BP Cuff Size: X-large Adult Pulse: 83 Resp: 16 Temp: 98 F (36.7 C) TempSrc: Temporal SpO2: 92% Weight: 103.9 kg (229 lb) Height: 5' 7 Estimated body mass index is 35.87 kg/m as calculated from the following: Height as of this encounter: 5' 7. Weight as of this encounter: 103.9 kg (229 lb). Physical Exam Constitutional: General: He is not in acute distress. Appearance: He is not ill-appearing. HENT: Head: Normocephalic and atraumatic. Eyes: Extraocular Movements: Extraocular movements intact. Conjunctiva/sclera: Conjunctivae normal. Pupils: Pupils are equal, round, and reactive to light. Cardiovascular: Rate and Rhythm: Normal rate and regular rhythm. Pulses: Normal pulses. Heart sounds: Normal heart sounds. No murmur heard. No gallop. Pulmonary: Effort: Pulmonary effort is normal. Breath sounds: Normal breath sounds. No wheezing, rhonchi or rales. Chest: Chest wall: No tenderness. Abdominal: General: Abdomen is flat. Bowel sounds are normal. There is no distension. Palpations: Abdomen is soft. There is no mass. Tenderness: There is no abdominal tenderness. There is no right CVA tenderness, left CVA tenderness, guarding or rebound. Musculoskeletal: General: No tenderness. Normal range of motion. Cervical back: Normal range of motion and neck supple. No rigidity. No muscular tenderness. Right lower leg: No edema. Left lower leg: No edema. Lymphadenopathy: Cervical: No cervical adenopathy. Skin: General: Skin is warm. Findings: Lesion (1-2 mm hyperpigmented macules on dorsum of rght hand. ) present. No erythema or rash. Neurological: General: No focal deficit present. Mental Status: He is alert and oriented to person, place, and time. Sensory: No sensory deficit. Motor: No weakness. Gait: Gait normal. Psychiatric: Mood and Affect: Mood normal. Behavior: Behavior normal. Thought Content: Thought content normal. Judgment: Judgment normal. OARRS/NARxCHECK Report Received and Assessed: No data found Date controlled substance agreement signed: No data found Date of last drug screen: No data found Functional Assessment: No data found Tobacco Counseling: Counseling given: Not Answered Patient's Medications New Prescriptions No medications on file Previous Medications ACETAMINOPHEN (TYLENOL) 325 MG TABLET Take 2 (two) tablets (650 mg total) by mouth every 6 (six) hours as needed for pain (1-2 tablets) . APIXABAN (ELIQUIS) 5 MG TAB Take 1 (one) tablet (5 mg total) by mouth 2 (two) times a day . ASCORBIC ACID (VITAMIN C) 500 MG CPER Take 1 (one) capsule (500 mg total) by mouth every other day . ASPIRIN 81 MG EC TABLET Take 1 tablet (81 mg total) by mouth daily. BLOOD SUGAR DIAGNOSTIC (GLUCOSE BLOOD) STRIPS Dx code E11.9 use to check BG 4x daily. BLOOD SUGAR DIAGNOSTIC (RELION PRIME TEST STRIPS) STRIPS E11.65 Use as directed 4 times per day. CILOSTAZOL (PLETAL) 100 MG TABLET TAKE 1 TABLET BY MOUTH TWICE DAILY ON AN EMPTY STOMACH DOCUSATE SODIUM (COLACE) 100 MG CAPSULE Take 1 (one) capsule (100 mg total) by mouth 2 (two) times a day as needed . ESCITALOPRAM OXALATE (LEXAPRO) 5 MG TABLET Take 1 (one) tablet (5 mg total) by mouth daily . FLASH GLUCOSE SENSOR (FREESTYLE JOHNNY 2 SENSOR) KIT 1 kit by Miscellaneous route every 14 (fourteen) days Use as directed to apply new sensor . INSULIN GLARGINE (LANTUS U-100 INSULIN) 100 UNIT/ML INJECTION Inject 28 (twenty eight) Units under the skin nightly . INSULIN LISPRO (ADMELOG,HUMALOG) 100 UNIT/ML INJECTION USE DIRECTED, APPROXIMATELY 30 UNITS A DAY. . INSULIN SYRINGE-NEEDLE U-100 0.3 ML 31 GAUGE X 5/16 SYRG Use as directed QID . LANCETS MISC Use to check BG QID SolusV2 brand Dx E11.65. PEN NEEDLE, DIABETIC 31 GAUGE X 3/16 NDLE Use as directed 4 times daily. . POTASSIUM CHLORIDE 20 MEQ TBER TAKE 1 TABLET BY MOUTH EVERY OTHER DAY PSYLLIUM (METAMUCIL) 0.52 GRAM CAPSULE Take 2 (two) capsules (1.04 g total) by mouth as needed . Modified Medications Modified Medication Previous Medication BUMETANIDE (BUMEX) 1 MG TABLET bumetanide (BUMEX) 1 MG tablet Take 0.5 (one-half) tablet (0.5 mg total) by mouth every other day . TAKE 1/2 (ONE-HALF) TABLET BY MOUTH EVERY OTHER DAY LISINOPRIL (PRINIVIL,ZESTRIL) 20 MG TABLET lisinopriL (PRINIVIL,ZESTRIL) 20 MG tablet Take 1 (one) tablet (20 mg total) by mouth daily . Take 1 (one) tablet (20 mg total) by mouth daily. METOPROLOL SUCCINATE (TOPROL-XL) 25 MG 24 HR TABLET metoprolol succinate (TOPROL-XL) 25 MG 24 hr tablet Take 1 (one) tablet (25 mg total) by mouth daily . Take 1 tablet by mouth once daily SIMVASTATIN (ZOCOR) 40 MG TABLET simvastatin (ZOCOR) 40 MG tablet Take 1 (one) tablet (40 mg total) by mouth at bedtime . Take 1 (one) tablet (40 mg total) by mouth at bedtime . Discontinued Medications No medications on file Health Maintenance Due Topic Date Due Tetanus: Every 10yrs 03/18/2021 Assessment & Plan Problem List Items Addressed This Visit Cardiovascular and Mediastinum A-fib (HCC) (Chronic) Doing well, asymptomatic , stable on eliquis and metoprolol Relevant Medications metoprolol succinate (TOPROL-XL) 25 MG 24 hr tablet bumetanide (BUMEX) 1 MG tablet lisinopriL (PRINIVIL,ZESTRIL) 20 MG tablet simvastatin (ZOCOR) 40 MG tablet 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, bilateral legs (HCC) Meeting with vascular in 6 months, stable and improving on cilostazol, simvastatin, aspirin and eliquis Other Diarrhea - Primary Chronic , will start with blood work to rule out infection and food intolerance Could be a side effect of the colace , hold and monitor Try to cut down on lactose and see if that helps If that didn't help along with fiber intake ,we will look into GI referral and possible colonoscopy Relevant Orders Urinalysis Tissue Transglutaminase, IgA TSH with Reflex Free T4 CBC and Differential CRP, Inflammation Sedimentation Rate Comprehensive Metabolic Panel Stool/GI PCR Panel Other Visit Diagnoses Essential hypertension Relevant Medications metoprolol succinate (TOPROL-XL) 25 MG 24 hr tablet bumetanide (BUMEX) 1 MG tablet lisinopriL (PRINIVIL,ZESTRIL) 20 MG tablet Hyperlipidemia, unspecified hyperlipidemia type Relevant Medications simvastatin (ZOCOR) 40 MG tablet I spent over 30 mins reviewing patient's chart , HPI and coordicating plan of care. Return in about 6 months (around 07/24/2023) for medicare wellness. VIVIEN FOREMAN MD [facility] [id number] Dept: [phone] Over the last 2 weeks, how often have you been bothered by any of the following problems? Little interest or pleasure in doing things Feeling down, depressed, or hopeless PHQ-2 Total Score Trouble falling or staying asleep, or sleeping too much Feeling tired or having little energy Poor appetite or overeating Feeling bad about yourself - or that you are a failure or have let yourself or your family down Trouble concentrating on things, such as reading the newspaper or watching television Moving or speaking so slowly that other people could have noticed. Or the opposite - being fidgety or restless that you have been moving around a lot more than usual Thoughts that you would be better off , or hurting yourself in some way PHQ-9 Total Score If you checked off any problems, how difficult have these problems made it for you to do your work,take care of things at home, or get along with other people? 12/16/2020 8:00 AM 03/02/2021 10:00 AM 06/12/2021 10:00 AM 12/10/2021 10:27 AM 02/22/2022 7:00 AM 06/14/2022 9:00 AM 07/23/2022 1:11 PM Depression Screening Little interest or pleasure in doing things 2 2 0 1 0 1 1 Feeling down, depressed, or hopeless 2 1 3 1 0 2 0 PHQ-2 Total Score 4 3 3 2 0 3 1 Trouble falling or staying asleep, or sleeping too much 2 2 0 0 1 1 Feeling tired or having little energy 1 1 0 0 0 1 Poor appetite or overeating 0 0 0 0 0 1 Feeling bad about yourself - or that you are a failure or have let yourself or your family down 2 21 2 3 1 Trouble concentrating on things, such as reading the newspaper or watching television 2 2 1 1 2 1 Moving or speaking so slowly that other people could have noticed. Or the opposite - being so fidgety or restless that you have been moving around a lot more than usual 0 0 3 0 0 0 Thoughts that you would be better off , or of hurting yourself in some way 2 0 0 1 1 0 PHQ-9 Total Score 13 10 8 6 10 6 If you checked off any problems, how difficult have these problems made it for you to do your work,take care of things at home, or get along with other people? Somewhat difficult Somewhat difficult Not difficult at all Somewhat difficult Somewhat difficult 12/16/2020 8:00 AM 03/02/2021 10:00 AM 06/12/2021 10:00 AM 12/10/2021 10:27 AM 02/22/2022 7:00 AM 06/14/2022 9:00 AM 07/23/2022 1:11 PM Depression Screening Little interest or pleasure in doing things 2 2 0 1 0 1 1 Feeling down, depressed, or hopeless 2 1 3 1 0 2 0 PHQ-2 Total Score 4 3 3 2 0 3 1 Trouble falling or staying asleep, or sleeping too much 2 2 0 0 1 1 Feeling tired or having little energy 1 1 0 0 0 1 Poor appetite or overeating 0 0 0 0 0 1 Feeling bad about yourself - or that you are a failure or have let yourself or your family down 2 21 2 3 1 Trouble concentrating on things, such as reading the newspaper or watching television 2 2 1 1 2 1 Moving or speaking so slowly that other people could have noticed. Or the opposite - being so fidgety or restless that you have been moving around a lot more than usual 0 0 3 0 0 0 Thoughts that you would be better off , or of hurting yourself in some way 2 0 0 1 1 0 PHQ-9 Total Score 13 10 8 6 10 6 If you checked off any problems, how difficult have these problems made it for you to do your work,take care of things at home, or get along with other people? Somewhat difficult Somewhat difficult Not difficult at all Somewhat difficult Somewhat difficult 12/16/2020 8:00 AM 03/02/2021 10:00 AM 06/12/2021 10:00 AM 12/10/2021 10:27 AM 02/22/2022 7:00 AM 06/14/2022 9:00 AM 07/23/2022 1:11 PM Depression Screening Little interest or pleasure in doing things 2 2 0 1 0 1 1 Feeling down, depressed, or hopeless 2 1 3 1 0 2 0 PHQ-2 Total Score 4 3 3 2 0 3 1 Trouble falling or staying asleep, or sleeping too much 2 2 0 0 1 1 Feeling tired or having little energy 1 1 0 0 0 1 Poor appetite or overeating 0 0 0 0 0 1 Feeling bad about yourself - or that you are a failure or have let yourself or your family down 2 21 2 3 1 Trouble concentrating on things, such as reading the newspaper or watching television 2 2 1 1 2 1 Moving or speaking so slowly that other people could have noticed. Or the opposite - being so fidgety or restless that you have been moving around a lot more than usual 0 0 3 0 0 0 Thoughts that you would be better off , or of hurting yourself in some way 2 0 0 1 1 0 PHQ-9 Total Score 13 10 8 6 10 6 If you checked off any problems, how difficult have these problems made it for you to do your work,take care of things at home, or get along with other people? Somewhat difficult Somewhat difficult Not difficult at all Somewhat difficult Somewhat difficult 12/16/2020 8:00 AM 03/02/2021 10:00 AM 06/12/2021 10:00 AM 12/10/2021 10:27 AM 02/22/2022 7:00 AM 06/14/2022 9:00 AM 07/23/2022 1:11 PM Depression Screening Little interest or pleasure in doing things 2 2 0 1 0 1 1 Feeling down, depressed, or hopeless 2 1 3 1 0 2 0 PHQ-2 Total Score 4 3 3 2 0 3 1 Trouble falling or staying asleep, or sleeping too much 2 2 0 0 1 1 Feeling tired or having little energy 1 1 0 0 0 1 Poor appetite or overeating 0 0 0 0 0 1 Feeling bad about yourself - or that you are a failure or have let yourself or your family down 2 21 2 3 1 Trouble concentrating on things, such as reading the newspaper or watching television 2 2 1 1 2 1 Moving or speaking so slowly that other people could have noticed. Or the opposite - being so fidgety or restless that you have been moving around a lot more than usual 0 0 3 0 0 0 Thoughts that you would be better off , or of hurting yourself in some way 2 0 0 1 1 0 PHQ-9 Total Score 13 10 8 6 10 6 If you checked off any problems, how difficult have these problems made it for you to do your work,take care of things at home, or get along with other people? Somewhat difficult Somewhat difficult Not difficult at all Somewhat difficult Somewhat difficult documented in this [id number] History of Present illness Narrative* Hola Arroyo Jr., DPM - 01/07/2023 8:33 AM EDT Nail care Patient is a pleasant 76year-old male who comes in today for nail care. His geriatric status and diabetes is managed by primary including Dr. Foreman. Comes in today for nail care. Physical Vascular: DP pulses are palpable 2-4. PT pulses are nonpalpable due to edema. +1 foot and ankle edema. Skin is shiny atrophic dysvascular with absence of hair growth. Feet are warm to cool proximal to distal. Nails left foot [id number] and right foot 29393 are elongated thickened mycotic crumbling dystrophic. Neuro: Light blunted at 3-6 sites bilaterally. Babinski's is blunted. Musculoskeletal: Can easily wiggle toes not any clicking or catching. Mild hammering of the distal digits 2 through 4 right and left foot with some pes planovalgus foot type. 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 -Given his elevated limb loss risk score he does qualify for nail care. Procedure: After timeout consent was performed, sharply debrided and debulk in height and length 10onychomycotic nails with a sharp around nail nippers consistent with a q8 modifier. Follow-up in 3 months documented in this [id number] Instructions* Patient Instructions* Nilsa Garza MA - 12/09/2022 8:28 AM EDT How to contact your Care Team: Providers: DO Duane Centeno III, CNP Jill Bender, PA Nurse: Kalyn Stewart RN To reschedule office appointments call Scheduling [phone] In case of an emergency please call 911. When in need of refills please call the phone number listed above. Please include medication name, pharmacy name and specify 30 or 90 day supply Please check with your pharmacy within 24 hours of your request for refill. You must follow up as directed to continue current refills. Thank you! documented in this [id number] History of Present illness Narrative* Sanju Bill LAQUITA, DO - 12/09/2022 8:24 AM EDT Assessment & Plan: 1. 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, bilateral legs(HCC) US Doppler ankle/brachial index 2. PAD (peripheral artery disease) (HCC) US Doppler ankle/brachial index 3. Type 2 diabetes mellitus with other circulatory complication, with long-term current use of insulin (HCC) 4. Obesity (BMI 30-39.9) 5. halfway current use of anticoagulant Plan: At the present time, Mr. Arnold continues to be stable with his PAD and claudication symptomatology.He also complains of some arthritic and musculoskeletal tightness when he is just doing work aroundthe house without significant ambulation. I think his lifestyle limitations are probably multifactorial, but at the present time he is tolerating his oral medication, and I feel there is no evidence of progressive vascular changes so I think a conservative course is indicated. As result, we will see him back in the office in 6 months. We will obtain bilateral ankle-brachial indices with his next visit to continue to monitor his vascular status. But overall, I think he is doing well. I recommended to good moisturization to his feet to keep his skin supple and soft without skin cracking since he is a diabetic with anhidrosis. If there are questions or concerns before his next visit, he is to contact us. We will keep you informed, and we appreciate the opportunity to participate in his care. Follow Up Ordered: Return in about 6 months (around 06/10/2023) for Recheck with testing in [place] office.. Subjective: Andrew Arnold is a 77 y.o. male seen in the office today for follow up regarding PAD with claudication. Mr. Arnold (birthday 1945) was seen in the [place] office on December 09, 2022. It has been approximately 6 months since he was seen last. He presents for evaluation regarding his PAD and claudication symptoms. He states he is doing well. He denies any ulcers or tissue loss or gangrene. He does state that he is able to ambulate fair distances with some balance support such as a grocery cart without having to stop and rest, but sometimes even just doing simple work around the house such as gardening causes his low back and hips and thighs to tighten up and he has to stop and rest. He denies any night pain, rest pain, gangrene, tissue loss or ulcers. He continues to tolerate his medications in cluding cilostazol and Eliquis for long-term anticoagulation due to his atrial fibrillation. Histories: Past Medical History: Diagnosis Date Aortic valve calcification Arrhythmia Atrial fibrillation (HCC) after CABG CAD (coronary artery disease) 3 Vessel Claudication (HCC) Left lower extremity symptoms Fractures Hypertension Mitral valve annular calcification Myocardial infarction (HCC) 08/02/2015 Non-ST Obesity Oral cancer (HCC) Pilonidal cyst Subdural hematoma ([facility]) 2008 minor trauma while on Plavix at the time. Tendonitis of wrist, right TIA (transient ischemic attack) 2007 was put on plavix then had subdural one year later. Vitreous hemorrhage of left eye (HCC) Past Surgical History: Procedure Laterality Date AORTIC VALVE REPLACEMENT CARDIAC CATHETERIZATION CARDIAC CATHETERIZATION N/A 12/25/2021 Procedure: Coronary Angiogram; Surgeon: Adilson Stone MD; Location: [facility]; Service: Cardiovascular CARDIAC CATHETERIZATION N/A 12/25/2021 Procedure: Left Heart Cath w/Grafts; Surgeon: Adilson Stone MD; Location: [facility]; Service: Cardiovascular CARDIAC VALVE REPLACEMENT CORONARY ARTERY BYPASS GRAFT 08/13/2015 3 Vessel/YEUNG to the LAD/SVG to obtuse marginal/SVG to a PDA MOUTH SURGERY 2007 Oral cancer TENDON RELEASE DEQUERVAINS Right 12/26/2018 Procedure: TENDON RELEASE DE QUERVAINS RIGHT; Surgeon: Jenaro Oquendo MD; Location: Main OR; Service: Orthopedic Family History Problem Relation Age of Onset COPD Mother Diabetes Father Stroke Paternal Grandmother Social History Tobacco Use Smoking status: Former Packs/day: 3.00 Years: 12.00 Pack years: 36.00 Types: Cigarettes Quit date: 08/27/1973 Years since quittin.3 Smokeless tobacco: Former Types: Chew Vaping Use Vaping Use: Never used Substance Use Topics Alcohol use: Not Currently Alcohol/week: 0.0 standard drinks of alcohol Drug use: No Current Outpatient Medications Medication Sig Dispense Refill acetaminophen (TYLENOL) 325 MG tablet Take 2 (two) tablets (650 mg total) by mouth every 6 (six) hours as needed for pain (1-2 tablets) . apixaban (ELIQUIS) 5 mg Tab Take 1 (one) tablet (5 mg total) by mouth 2 (two) times a day . 60 tablet 11 ascorbic Acid (VITAMIN C) 500 mg CpER Take 1 (one) capsule (500 mg total) by mouth every other day . aspirin 81 MG EC tablet Take 1 tablet (81 mg total) by mouth daily. 90 tablet 3 blood sugar diagnostic (glucose blood) strips Dx code E11.9 use to check BG 4x daily. 150 strip 11 blood sugar diagnostic (RELION PRIME TEST STRIPS) strips E11.65 Use as directed 4 times per day. 150 strip 11 bumetanide (BUMEX) 1 MG tablet TAKE 1/2 (ONE-HALF) TABLET BY MOUTH EVERY OTHER DAY 45 tablet 0 cilostazoL (PLETAL) 100 MG tablet TAKE 1 TABLET BY MOUTH TWICE DAILY ON AN EMPTY STOMACH 60 tablet 2 docusate sodium (COLACE) 100 MG capsule Take 1 (one) capsule (100 mg total) by mouth 2 (two) times a day as needed . escitalopram oxalate (LEXAPRO) 5 MG tablet Take 1 (one) tablet (5 mg total) by mouth daily . 30 tablet 11 flash glucose sensor (FreeStyle Johnny 2 Sensor) Kit 1 kit by Miscellaneous route every 14 (fourteen) days Use as directed to apply new sensor . 2 kit 11 insulin glargine (Lantus U-100 Insulin) 100 unit/mL injection Inject 28 (twenty eight) Units under the skin nightly . 30 mL 3 insulin lispro (AdmeLOG,HumaLOG) 100 unit/mL injection USE DIRECTED, APPROXIMATELY 30 UNITS A DAY. . 30 mL 3 insulin syringe-needle U-100 0.3 mL 31 gauge x 5/16 Syrg Use as directed QID . 400 each 3 lancets Misc Use to check BG QID SolusV2 brand Dx E11.65. 200 each 11 lisinopriL (PRINIVIL,ZESTRIL) 20 MG tablet Take 1 (one) tablet (20 mg total) by mouth daily . 90 tablet 3 metoprolol succinate (TOPROL-XL) 25 MG 24 hr tablet Take 1 tablet by mouth once daily 90 tablet 0 pen needle, diabetic 31 gauge x /16 Ndle Use as directed 4 times daily. . 400 each 3 potassium chloride 20 mEq TbER TAKE 1 TABLET BY MOUTH EVERY OTHER DAY 45 tablet 3 psyllium (METAMUCIL) 0.52 gram capsule Take 2 (two) capsules (1.04 g total) by mouth as needed . simvastatin (ZOCOR) 40 MG tablet Take 1 (one) tablet (40 mg total) by mouth at bedtime . 90 tablet 3 No current facility-administered medications for this visit. Allergies Allergen Reactions Pioglitazone GI Intolerance ROS Objective: Vitals: Vitals: 12/09/22 0828 12/09/22 0837 BP: 129/71 (!) 144/77 BP Location: Right arm Left arm Patient Position: Sitting Sitting Pulse: 81 97 Weight: 102.1 kg (225 lb) Height: 5' 7 Physical Exam Vitals reviewed. Constitutional: General: He is awake. Appearance: Normal appearance. He is well-developed. He is obese. HENT: Head: Normocephalic. Eyes: General: Lids are normal. Neck: Vascular: No JVD. Cardiovascular: Rate and Rhythm: Normal rate. Rhythm irregularly irregular. Pulses: Decreased pulses. Femoral pulses are 2+ on the right side and 2+ on the left side. Popliteal pulses are 0 on the right side and 0 on the left side. Dorsalis pedis pulses are 0 on the right side and 0 on the left side. Posterior tibial pulses are 0 on the right side and 0 on the left side. Heart sounds: Normal heart sounds. No murmur heard. Comments: Well-healed vein harvesting incision is noted the right lower extremity. Pulmonary: Effort: Pulmonary effort is normal. Abdominal: General: Abdomen is protuberant. Palpations: Abdomen is not rigid. Comments: Limited exam due to body habitus and obesity. Musculoskeletal: General: Normal range of motion. Cervical back: Neck supple. Right foot: Normal capillary refill. Abnormal pulse. Left foot: Normal capillary refill. Abnormal pulse. Feet: Right foot: Skin integrity: Dry skin present. Left foot: Skin integrity: Dry skin present. No skin breakdown. Skin: General: Skin is warm and dry. Capillary Refill: Capillary refill takes less than 2 seconds. Findings: No abrasion. Comments: Anhidrosis as well as hair loss pattern changes are noted in bilateral feet and lower extremities. Neurological: General: No focal deficit present. Mental Status: He is alert and oriented to person, place, and time. Sensory: Sensory deficit (Decreased sensation to fine touch bilateral extremities consistent with diabetic neuropathy.) present. Motor: Motor function is intact. Coordination: Coordination is intact. Gait: Gait is intact. Psychiatric: Attention and Perception: Attention and perception normal. Mood and Affect: Mood and affect normal. Speech: Speech normal. Behavior: Behavior normal. Behavior is cooperative. Thought Content: Thought content normal. documented in this [id number] Telephone encounter Note* Telephone Encounter - Jaclyn Chowdhury MA - 08/27/2022 11:04 AM EST Refill request through [facility] for bumex and metoprolol succ to be sent to [facility] in [place]. Called pt. to verify he was in need of us to send to this pharmacy and pt. verified he did need meds sent. Last OV 05/14/22. Refills appropriate. [id number] Miscellaneous Notes* Telephone Encounter - Jaclyn Chowdhury MA - 08/27/2022 11:04 AM EST Refill request through [facility] for bumex and metoprolol succ to be sent to [facility] in [place]. Called pt. to verify he was in need of us to send to this pharmacy and pt. verified he did need meds sent. Last OV 05/14/22. Refills appropriate. documented in this [id number] Evaluation + Plan note* Assessment & Plan Note - Vivien Foreman MD - 07/23/2022 4:36 PM ESTAssociated Problem(s): 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, bilateral legs (HCC) Meeting with vascular in 6 months, stable and improving on cilostazol [id number] Evaluation + Plan note* Assessment & Plan Note - Vivien Foreman MD - 07/23/2022 4:36 PM ESTAssociated Problem(s): PAD (peripheral artery disease) (HCC) Stable and improving on cilostazol [id number] Evaluation + Plan note* Assessment & Plan Note - Vivien Foreman MD - 07/23/2022 4:36 PM ESTAssociated Problem(s): Mild major depression (HCC) Significantly improving on Lexapro 5 mg, prescriptions ordered for refills. Will continue to monitor [id number] Miscellaneous Notes* Assessment & Plan Note - Vivien Foreman MD - 07/23/2022 4:36 PM ESTAssociated Problem(s): Atherosclerosis of [place] arteries of extremities with intermittent claudicat ion, bilateral legs (HCC) Meeting with vascular in 6 months, stable and improving on cilostazol * Assessment & Plan Note - Vivien Foreman MD - 07/23/2022 4:36 PM ESTAssociated Problem(s): PAD (peripheral artery disease) (HCC) Stable and improving on cilostazol * Assessment & Plan Note - Vivien Foreman MD - 07/23/2022 4:36 PM ESTAssociated Problem(s): Mild major depression (HCC) Significantly improving on Lexapro 5 mg, prescriptions ordered for refills. Will continue to monitor * Assessment & Plan Note - Vivien Foreman MD - 07/23/2022 4:35 PM ESTAssociated Problem(s): Morbid obesity (HCC) Working on lifestyle modifications. Performing daily activities and physical activity. * Assessment & Plan Note - Vivien Foreman MD - 07/23/2022 4:35 PM ESTAssociated Problem(s): Traumatic subdural hemorrhage Had a mechanical fall back in 2007 without losing consciousness. Evaluated in ER, CT head showed subdural interhemispheric fissure on the right side. Follow up with neurosurgery in [facility] [place] showing improving and self limited subdural collection. No headaches at this time. 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 - Follow up annually told doesn't need to follow up * Assessment & Plan Note - Vivien Foreman MD - 07/23/2022 1:02 PM ESTAssociated Problem(s): Cough Post viral cough Continue to monitor for another month and let me know if it is persistent documented in this [id number] Evaluation + Plan note* Assessment & Plan Note - Vivien Foreman MD - 07/23/2022 4:35 PM ESTAssociated Problem(s): Morbid obesity (HCC) Working on lifestyle modifications. Performing daily activities and physical activity. [id number] Evaluation + Plan note* Assessment & Plan Note - Vivien Foreman MD - 07/23/2022 4:35 PM ESTAssociated Problem(s): Traumatic subdural hemorrhage Had a mechanical fall back in 2007 without losing consciousness. Evaluated in ER, CT head showed subdural interhemispheric fissure on the right side. Follow up with neurosurgery in [facility] [place] showing improving and self limited subdural collection. No headaches at this time. 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 - Follow up annually told doesn't need to follow up [id number] Evaluation + Plan note* Assessment & Plan Note - Vivien Foreman MD - 07/23/2022 1:02 PM ESTAssociated Problem(s): Cough Post viral cough Continue to monitor for another month and let me know if it is persistent [id number] History of Present illness Narrative* Vivien Foreman MD - 07/23/2022 12:44 PM EST Chief Complaint Patient presents with Follow-up 4 week f/u HPI: Andrew Arnold is a 75-year-old gentleman presenting today for routine check. PMH of CAD s/p CABG bypass grafting x3, s/p AVR, postoperative A. 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 Currently his partner is also having heart problems and is worried about her. Was offered a grief therapy but was hesitant to join and thought he can handle it on his own. Sleep is poor since his CABG surgery in 2015. Has lost his daughter in March for complication of diabetes , worried about his 16 yo granddaughter who found her in the house. Currently having to dealing with all her belongings. Receiving therapy through a hospice service. Having a supportive family ith his partner , and his son. denies any SI or HI. PHQ9 score 10 today , patient is doing much better on Lexapro 5 mg which was also noticed by his partner and coping well. HTN: Was previously controlled on lisinopril 10 mg , last visit was borderline uncontrolled. Increased lisinopril to 20 mg and has been feeling better and denies any concerns for CP, SOB, POLLACK, blurry vision , tingling/ numbness in extremities. Chest discomfort: Left-sided chest pain occurs every other day sometimes with minimal exertion or when working on [employer] and sometimes while watching TV. Associated with mild dizziness for few seconds. Denies any associated shortness of breath or radiation to the left shoulder or left neck, no association with any nausea Left heart cath came back with patent graft, obstruction in non vascularized diagonal branch, considering PCI but trying medical management at this time. Echo was also performed on 12/22/2021 showing LVEF of 59%, and moderate aortic stenosis with dilation of aortic root and ascending aorta. Patient is already feeling better and not having chest pain symptoms. Intermittent claudications: Mentioned that for a while now he has been having trouble walking through [employer] that he needs to stop given pain in bilateral anterior thighs. Following up with cardiology and vascular medicine, improving on cilostazol Past Medical History: Diagnosis Date Aortic valve calcification Arrhythmia Atrial fibrillation (HCC) after CABG CAD (coronary artery disease) 3 Vessel Claudication (HCC) Left lower extremity symptoms Fractures Hypertension Mitral valve annular calcification Myocardial infarction (HCC) 08/02/2015 Non-ST Obesity Oral cancer (HCC) Pilonidal cyst Subdural hematoma 2008 minor trauma while on Plavix at the time. Tendonitis of wrist, right TIA (transient ischemic attack) 2007 was put on plavix then had subdural one year later. Vitreous hemorrhage of left eye (HCC) Past Surgical History: Procedure Laterality Date AORTIC VALVE REPLACEMENT CARDIAC CATHETERIZATION CARDIAC CATHETERIZATION N/A 12/25/2021 Procedure: Coronary Angiogram; Surgeon: Adilson Stone MD; Location: [facility]; Service: Cardiovascular CARDIAC CATHETERIZATION N/A 12/25/2021 Procedure: Left Heart Cath w/Grafts; Surgeon: Adilson Stone MD; Location: [facility]; Service: Cardiovascular CARDIAC VALVE REPLACEMENT CORONARY ARTERY BYPASS GRAFT 08/13/2015 3 Vessel/YEUNG to the LAD/SVG to obtuse marginal/SVG to a PDA MOUTH SURGERY 2007 Oral cancer TENDON RELEASE DEQUERVAINS Right 12/26/2018 Procedure: TENDON RELEASE DE QUERVAINS RIGHT; Surgeon: Jenaro Oquendo MD; Location: Main OR; Service: Orthopedic Family History Problem Relation Age of Onset COPD Mother Diabetes Father Stroke Paternal Grandmother Social History Tobacco Use Smoking status: Former Packs/day: 3.00 Years: 12.00 Pack years: 36.00 Types: Cigarettes Quit date: 08/27/1973 Years since quittin.9 Smokeless tobacco: Former Types: Chew Vaping Use Vaping Use: Never used Substance Use Topics Alcohol use: Not Currently Alcohol/week: 0.0 standard drinks Drug use: No Review of Systems Vitals: 07/23/22 1229 BP: 119/63 BP Location: Right arm Patient Position: Sitting BP Cuff Size: X-large Adult Pulse: 73 Resp: 16 Temp: 98.1 F (36.7 C) TempSrc: Infrared SpO2: 96% Weight: 102.3 kg (225 lb 8 oz) Height: 5' 7 Estimated body mass index is 35.32 kg/m as calculated from the following: Height as of this encounter: 5' 7. Weight as of this encounter: 102.3 kg (225 lb 8 oz). Physical Exam Constitutional: General: He is not in acute distress. Appearance: He is not ill-appearing. HENT: Head: Normocephalic and atraumatic. Eyes: Extraocular Movements: Extraocular movements intact. Conjunctiva/sclera: Conjunctivae normal. Pupils: Pupils are equal, round, and reactive to light. Cardiovascular: Rate and Rhythm: Normal rate and regular rhythm. Pulses: Normal pulses. Heart sounds: Normal heart sounds. No murmur heard. No gallop. Pulmonary: Effort: Pulmonary effort is normal. Breath sounds: Normal breath sounds. No wheezing, rhonchi or rales. Chest: Chest wall: No tenderness. Abdominal: General: Abdomen is flat. Bowel sounds are normal. There is no distension. Palpations: Abdomen is soft. There is no mass. Tenderness: There is no abdominal tenderness. There is no right CVA tenderness, left CVA tenderness, guarding or rebound. Musculoskeletal: General: No tenderness. Normal range of motion. Cervical back: Normal range of motion and neck supple. No rigidity. No muscular tenderness. Right lower leg: No edema. Left lower leg: No edema. Lymphadenopathy: Cervical: No cervical adenopathy. Skin: General: Skin is warm. Findings: Lesion (1-2 mm hyperpigmented macules on dorsum of rght hand. ) present. No erythema or rash. Neurological: General: No focal deficit present. Mental Status: He is alert and oriented to person, place, and time. Sensory: No sensory deficit. Motor: No weakness. Gait: Gait normal. Psychiatric: Mood and Affect: Mood normal. Behavior: Behavior normal. Thought Content: Thought content normal. Judgment: Judgment normal. OARRS/NARxCHECK Report Received and Assessed: No data found Date controlled substance agreement signed: No data found Date of last drug screen: No data found Functional Assessment: No data found Tobacco Counseling: Counseling given: Not Answered Patient's Medications New Prescriptions No medications on file Previous Medications ACETAMINOPHEN (TYLENOL) 325 MG TABLET Take 2 (two) tablets (650 mg total) by mouth every 6 (six) hours as needed for pain (1-2 tablets) . APIXABAN (ELIQUIS) 5 MG TAB Take 1 (one) tablet (5 mg total) by mouth 2 (two) times a day . ASCORBIC ACID (VITAMIN C) 500 MG CPER Take 1 (one) capsule (500 mg total) by mouth every other day . ASPIRIN 81 MG EC TABLET Take 1 tablet (81 mg total) by mouth daily. BLOOD SUGAR DIAGNOSTIC (GLUCOSE BLOOD) STRIPS Dx code E11.9 use to check BG 4x daily. BLOOD SUGAR DIAGNOSTIC (RELION PRIME TEST STRIPS) STRIPS E11.65 Use as directed 4 times per day. BUMETANIDE (BUMEX) 1 MG TABLET Take 1/2 (one-half) tablet by mouth once daily CILOSTAZOL (PLETAL) 100 MG TABLET Take 1 (one) tablet (100 mg total) by mouth 2 (two) times a day Take on an empty stomach . DOCUSATE SODIUM (COLACE) 100 MG CAPSULE Take 1 (one) capsule (100 mg total) by mouth 2 (two) times a day as needed . ESCITALOPRAM OXALATE (LEXAPRO) 5 MG TABLET Take 1 (one) tablet (5 mg total) by mouth daily . FLASH GLUCOSE SENSOR (FREESTYLE JOHNNY 2 SENSOR) KIT 1 kit by Miscellaneous route every 14 (fourteen) days Use as directed to apply new sensor . INSULIN GLARGINE (LANTUS U-100 INSULIN) 100 UNIT/ML INJECTION Inject 28 (twenty eight) Units under the skin nightly . INSULIN LISPRO (ADMELOG,HUMALOG) 100 UNIT/ML INJECTION USE DIRECTED, APPROXIMATELY 30 UNITS A DAY. . INSULIN SYRINGE-NEEDLE U-100 0.3 ML 31 GAUGE X 5/16 SYRG Use as directed QID . LANCETS MISC Use to check BG QID SolusV2 brand Dx E11.65. LISINOPRIL (PRINIVIL,ZESTRIL) 20 MG TABLET Take 1 (one) tablet (20 mg total) by mouth daily . METOPROLOL SUCCINATE (TOPROL-XL) 25 MG 24 HR TABLET Take 1 (one) tablet (25 mg total) by mouth 2 (two) times a day . PEN NEEDLE, DIABETIC 31 GAUGE X 16 NDLE Use as directed 4 times daily. . POTASSIUM CHLORIDE 20 MEQ TBER TAKE 1 TABLET BY MOUTH EVERY OTHER DAY PSYLLIUM (METAMUCIL) 0.52 GRAM CAPSULE Take 2 (two) capsules (1.04 g total) by mouth as needed . SIMVASTATIN (ZOCOR) 40 MG TABLET Take 1 (one) tablet (40 mg total) by mouth at bedtime . 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 Evaluated in ER, CT head showed subdural interhemispheric fissure on the right side. Follow up with neurosurgery in [facility] [place] showing improving and self limited subdural collection. No headaches at this time. -No more follow-up and no focal neurological symptoms Other Morbid obesity (HCC) Working on lifestyle modifications. Performing daily activities and physical activity. Mild major depression (HCC) Significantly improving on Lexapro 5 mg, prescriptions ordered for refills. Will continue to monitor Cough Post viral cough Continue to monitor for another month and let me know if it is persistent Other Visit Diagnoses Peripheral vascular disease, unspecified (HCC) Hypertensive heart disease with heart failure (HCC) I spent over 30 mins reviewing patient's chart , HPI and coordicating plan of care. Return in about 6 months (around 01/20/2023) for Follow Up. VIVIEN FOREMAN MD [facility] [address] [facility] [address] [facility] [id number] Dept: [phone] Over the last 2 weeks, how often have you been bothered by any of the following problems? Little interest or pleasure in doing things Several days Feeling down, depressed, or hopeless Not at all PHQ-2 Total Score 1 Trouble falling or staying asleep, or sleeping too much Several days Feeling tired or having little energy Several days Poor appetite or overeating Several days Feeling bad about yourself - or that you are a failure or have let yourself or your family down Several days Trouble concentrating on things, such as reading the newspaper or watching television Several days Moving or speaking so slowly that other people could have noticed. Or the opposite - being fidgety or restless that you have been moving around a lot more than usual Not at all Thoughts that you would be better off , or hurting yourself in some way Not at all PHQ-9 Total Score 6 If you checked off any problems, how difficult have these problems made it for you to do your work,take care of things at home, or get along with other people? Somewhat difficult Depression Screening 12/16/2020 03/02/2021 06/12/2021 12/10/2021 02/22/2022 06/14/2022 07/23/2022 Little interest or pleasure in doing things 2 2 0 1 0 1 1 Feeling down, depressed, or hopeless 2 1 3 1 0 2 0 PHQ-2 Total Score 4 3 3 2 0 3 1 Trouble falling or staying asleep, or sleeping too much 2 2 0 0 - 1 1 Feeling tired or having little energy 1 1 0 0 - 0 1 Poor appetite or overeating 0 0 0 0 - 0 1 Feeling bad about yourself - or that you are a failure or have let yourself or your family down 2 21 2 - 3 1 Trouble concentrating on things, such as reading the newspaper or watching television 2 2 1 1 - 2 1 Moving or speaking so slowly that other people could have noticed. Or the opposite - being so fidgety or restless that you have been moving around a lot more than usual 0 0 3 0 - 0 0 Thoughts that you would be better off , or of hurting yourself in some way 2 0 0 1 - 1 0 PHQ-9 Total Score 13 10 8 6 - 10 6 If you checked off any problems, how difficult have these problems made it for you to do your work,take care of things at home, or get along with other people? Somewhat difficult - Somewhat difficult Not difficult at all - Somewhat difficult Somewhat difficult Depression Screening 12/16/2020 03/02/2021 06/12/2021 12/10/2021 02/22/2022 06/14/2022 07/23/2022 Little interest or pleasure in doing things 2 2 0 1 0 1 1 Feeling down, depressed, or hopeless 2 1 3 1 0 2 0 PHQ-2 Total Score 4 3 3 2 0 3 1 Trouble falling or staying asleep, or sleeping too much 2 2 0 0 - 1 1 Feeling tired or having little energy 1 1 0 0 - 0 1 Poor appetite or overeating 0 0 0 0 - 0 1 Feeling bad about yourself - or that you are a failure or have let yourself or your family down 2 21 2 - 3 1 Trouble concentrating on things, such as reading the newspaper or watching television 2 2 1 1 - 2 1 Moving or speaking so slowly that other people could have noticed. Or the opposite - being so fidgety or restless that you have been moving around a lot more than usual 0 0 3 0 - 0 0 Thoughts that you would be better off , or of hurting yourself in some way 2 0 0 1 - 1 0 PHQ-9 Total Score 13 10 8 6 - 10 6 If you checked off any problems, how difficult have these problems made it for you to do your work,take care of things at home, or get along with other people? Somewhat difficult - Somewhat difficult Not difficult at all - Somewhat difficult Somewhat difficult Depression Screening 12/16/2020 03/02/2021 06/12/2021 12/10/2021 02/22/2022 06/14/2022 07/23/2022 Little interest or pleasure in doing things 2 2 0 1 0 1 1 Feeling down, depressed, or hopeless 2 1 3 1 0 2 0 PHQ-2 Total Score 4 3 3 2 0 3 1 Trouble falling or staying asleep, or sleeping too much 2 2 0 0 - 1 1 Feeling tired or having little energy 1 1 0 0 - 0 1 Poor appetite or overeating 0 0 0 0 - 0 1 Feeling bad about yourself - or that you are a failure or have let yourself or your family down 2 21 2 - 3 1 Trouble concentrating on things, such as reading the newspaper or watching television 2 2 1 1 - 2 1 Moving or speaking so slowly that other people could have noticed. Or the opposite - being so fidgety or restless that you have been moving around a lot more than usual 0 0 3 0 - 0 0 Thoughts that you would be better off , or of hurting yourself in some way 2 0 0 1 - 1 0 PHQ-9 Total Score 13 10 8 6 - 10 6 If you checked off any problems, how difficult have these problems made it for you to do your work,take care of things at home, or get along with other people? Somewhat difficult - Somewhat difficult Not difficult at all - Somewhat difficult Somewhat difficult Depression Screening 12/16/2020 03/02/2021 06/12/2021 12/10/2021 02/22/2022 06/14/2022 07/23/2022 Little interest or pleasure in doing things 2 2 0 1 0 1 1 Feeling down, depressed, or hopeless 2 1 3 1 0 2 0 PHQ-2 Total Score 4 3 3 2 0 3 1 Trouble falling or staying asleep, or sleeping too much 2 2 0 0 - 1 1 Feeling tired or having little energy 1 1 0 0 - 0 1 Poor appetite or overeating 0 0 0 0 - 0 1 Feeling bad about yourself - or that you are a failure or have let yourself or your family down 2 21 2 - 3 1 Trouble concentrating on things, such as reading the newspaper or watching television 2 2 1 1 - 2 1 Moving or speaking so slowly that other people could have noticed. Or the opposite - being so fidgety or restless that you have been moving around a lot more than usual 0 0 3 0 - 0 0 Thoughts that you would be better off , or of hurting yourself in some way 2 0 0 1 - 1 0 PHQ-9 Total Score 13 10 8 6 - 10 6 If you checked off any problems, how difficult have these problems made it for you to do your work,take care of things at home, or get along with other people? Somewhat difficult - Somewhat difficult Not difficult at all - Somewhat difficult Somewhat difficult documented in this [id number] History of Present illness Narrative* Hola Arroyo Jr., DPM - 07/09/2022 8:29 AM EST Nail care Patient is a pleasant 76year-old male who comes in today for nail care. His geriatric status and diabetes is managed by primary including Dr. Foreman. Comes in today for nail care. Physical Vascular: DP pulses are palpable 2-4. PT pulses are nonpalpable due to edema. +1 foot and ankle edema. Skin is shiny atrophic dysvascular with absence of hair growth. Feet are warm to cool proximal to distal. Nails left foot [id number] and right foot [id number] are elongated thickened mycotic crumbling dystrophic. Neuro: Light blunted at 3-6 sites bilaterally. Babinski's is blunted. Musculoskeletal: Can easily wiggle toes not any clicking or catching. Mild hammering of the distal digits 2 through 4 right and left foot with some pes planovalgus foot type. 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 -Given his elevated limb loss risk score he does qualify for nail care. Procedure: After timeout consent was performed, sharply debrided and debulk in height and length 10onychomycotic nails with a sharp around nail nippers consistent with a q8 modifier. Follow-up in 3 months documented in this [id number] Evaluation + Plan note* Assessment & Plan Note - Vivien Foreman MD - 06/15/2022 8:33 AM ESTAssociated Problem(s): PAD (peripheral artery disease) (HCC) Stable and improving on cilostazole [id number] Miscellaneous Notes* Assessment & Plan Note - Vivien Foreman MD - 06/15/2022 8:33 AM ESTAssociated Problem(s): PAD (peripheral artery disease) ([facility]) Stable and improving on cilostazole * Assessment & Plan Note - Vivien Foreman MD - 06/15/2022 8:32 AM ESTAssociated Problem(s): A-fib ([facility]) Doing well , stable on eliquis and metoprolol * Assessment & Plan Note - Vivien Foreman MD - 06/15/2022 8:32 AM ESTAssociated Problem(s): Advanced directives, counseling/discussion Patient was counseled about advanced directives and code status, given forms for DNR Encouraged to discuss with partner and kids. * Assessment & Plan Note - Vivien Foreman MD - 06/14/2022 8:39 AM ESTAssociated Problem(s): Medicare annual wellness visit, subsequent Patient is able to do ADLs and iADLs Low risk for dementia , low risk for falls Advised to remove the rug in the house Patient was counseled about advanced directives and code status, given forms for DNR Encouraged to discuss with partner and kids. * Assessment & Plan Note - Vivien Foreman MD - 06/14/2022 8:20 AM ESTAssociated Problem(s): Mild major depression (HCC) PHQ9 score 10 and GAD7 score 8 Had a lengthy discussion about counseling vs medication He was in favor of taking medication and starting on lexapro 5 mg Close follow up in one month documented in this [id number] Evaluation + Plan note* Assessment & Plan Note - Vivien Foreman MD - 06/15/2022 8:32 AM ESTAssociated Problem(s): A-fib (HCC) Doing well , stable on eliquis and metoprolol [id number] Evaluation + Plan note* Assessment & Plan Note - Vivien Foreman MD - 06/15/2022 8:32 AM ESTAssociated Problem(s): Advanced directives, counseling/discussion Patient was counseled about advanced directives and code status, given forms for DNR Encouraged to discuss with partner and kids. [id number] History of Present illness Narrative* Rosi Casarez RN - 06/14/2022 9:27 AM EST COVID BOOSTER GIVEN PER PT REQUEST. VACCINE ADMINISTERED INTO RIGHT ARM. TOLERATED WELL. PT OBSERVED FOR 10 MINUTES TO MONITOR FOR REACTIONS. NO REACTIONS NOTED. PT AMBULATORY TO EXIT. * Reji Lema LPN - 06/14/2022 9:21 AM EST Pt circled 1 (several days) to Thoughts you would be better off or of hurting yourself in some way on his PHQ form. immediately notified of pt response. * Ashly Harding MA - 06/14/2022 8:53 AM EST PATIENT PLACED IN A HOLD SLOT JulP W/ WRITTEN APPT CARD GIVEN TO PATIENT * Vivien Foreman MD - 06/14/2022 8:13 AM EST Subjective Andrew Arnold is a 77 y.o. male who presents for a Medicare Wellness Visit. Medicare Risk Assessment Do you have an Advanced Directive (Living Will and/or Durable Power of Channel Opener Outsoles for Health Care)? If not, would you like more information about Advanced Directives?: Yes What is your exercise level?: Moderate (like brisk walking) What is your diet?: Diabetic Can you prepare your own meals?: Yes Do you have trouble with finding transportation?: No Because of any health problems, do you need the help of another person with your personal care needs? (For example, eating, bathing, dressing, or getting around the house.): No Does your home have throw rugs, poor lighting or slippery bathtub or shower?: (!) Yes Does your home have grab bars in bathrooms or handrails on stairs and steps?: Yes During the past four weeks, how would you rate your health in general?: Fair Whether or not you use a hearing aid, do you think you have a hearing problem or do others think you have a hearing problem?: (!) Yes Whether or not you use glasses or contacts, do you have difficulty driving, watching television, reading, or doing any of your daily activities because of your eyesight?: (!) Yes In the past six months, have you had an unexplained weight loss of 10 pounds or more?: No Do you take your medications as prescribed?: I do not miss doses of my medications During the past four weeks, how much have you been bothered by emotional problems such as feeling anxious, depressed, irritable, sad, or downhearted and blue?: Slightly During the past four weeks, has your physical and emotional health limited your social activites with family, friends, neighbors, or groups? : Not at all Has hearing aids in which seems to help with his hearing difficulties and following up with [facility]. Following up with retina specialist. Got new shower with grab bars in the bathroom. Falls Risk Assessment Is Patient Ambulatory?: Y Fell in past year: 0 (No) Did any of these falls result in an injury?: No Unsteady when walks: 0 (No) Worried about fallin (Yes) Advised to use cane/walker?: 0 (No) Holds onto furniture/blanca: 1 (Yes) Uses hands to stand up from a chair: 1 (Yes) Trouble stepping onto curb: 0 (No) Rushes to toilet: 0 (No) Lost feeling in feet: 0 (No) Medicine makes me light-headed: 0 (No) Medicine for sleep or mood: 0 (No) Often feel sad/depressed: 1 (Yes) Patient Self Risk Assessment Score: 4 Timed Up and Go (TUG): 12 seconds or less Medicare Mini Cog Step 1: Three Word Registration Look directly at person and say, Please listen carefully. I am going to say three words that I wantyou to repeat back to me now and try to remember. The words are [select a list of words from the versions to the right]. Use a different list each time.: leba guzman table Version Used: Version 2: Elba Guzman Table Step 2: Clock Drawing Step 2 score: Normal clock - 2 points Clock has all numbers placed in the correct sequence & position (e.g., 12, 3, 6 and 9 are in anchor positions) with no missing or duplicate numbers. Hands are pointing to the 11 & 2 (11:10). Hand length is not scored. Step 3: Three Word Recall Say: What were the three words I asked you to remember? : hakan guzman Step 3: Three Word Recall Score: 2 Words Recalled Total score = Word Recall score + Clock Draw score A cut point of <3 on the Mini-Cog has been validated for dementia screening, but many individuals with clinically meaningful cognitive impairment will score higher. A cut point of <4 may indicate a need for further evaluation of cognitive status.: 4 Feeling irritable all the time lately and guilt feelings about him having a good time with his partner after losing his . Currently his partner is also having heart problems and is worried about her. Was offered a grief therapy but was hesitant to join and thought he can handle it on his own. Sleep is poor since his CABG surgery in 2015. Has lost his daughter in March for complication of diabetes , worried about his 16 yo granddaughter who found her in the house. Currently having to dealing with all her belongings. Receiving therapy through a hospice service. Having a supportive family ith his partner , and his son. denies any SI or HI. PHQ9 score 10 today , worried about his family. HTN: Was previously controlled on lisinopril 10 mg , last visit was borderline uncontrolled. Increased lisinopril to 20 mg and has been feeling better and denies any concerns for CP, SOB, POLLACK, blurry vision , tingling/ numbness in extremities. Chronic A. fib: Diagnosed in January 2021 with echo and Holter monitor work-up, rate controlled at this time and currently controlled on metoprolol and Eliquis. Diabetes: Diagnosed in 2000, last A1c followed up in endocrinology was 7.8 on 02/19/22 instead of 10.6 in September 2021. Patient is currently on insulin Humalog 5 units with breakfast, 6 units with lunch and 6 units at supper. Lantus 30 units at bedtime which was decreased from 38 units given hypoglycemic episodes in the morning, stopped Trulicity due to cost. Getting continuous glucose monitoring system through [facility]. Has been trying to lose weight started with [employer] per chart review which seem to help with his blood sugars. Has been monitoring glucose through [facility] and doing better. 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 Intermittent claudications/PAD: Mentioned that for a while now he has been having trouble walking through [place] that he needs to stop given pain in bilateral anterior thighs. Patient has been followed up by , [facility] showed moderate PAD , severe tansmetatarsal level bilaterally. Was put on cilostazole and is feeling much better, following up with vascular in 6 months. Comprehensive Medical and Social History: Patient Active Problem List Diagnosis CAD (coronary artery disease) Hypertension S/P CABG (coronary artery bypass graft) S/P aortic valve replacement Fractured sternal wires ([facility]) Type 2 diabetes mellitus with retinopathy of both eyes, with long-term current use of insulin ([facility]) Hypercholesterolemia Iron deficiency anemia RBBB Wrist pain, chronic, right De Quervain's disease (radial styloid tenosynovitis) DDD (degenerative disc disease), lumbar Malignant neoplasm of buccal sulcus (HCC) Morbid obesity ([facility]) Benign prostatic hyperplasia with urinary retention Hearing loss, sensorineural Traumatic subdural hemorrhage Skin mole A-fib ([facility]) Balance disorder Anxiety and depression 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) PAD (peripheral artery disease) ([facility]) 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, bilateral legs ([facility]) Diabetes mellitus ([facility]) Past Medical History: Diagnosis Date Aortic valve calcification Arrhythmia Atrial fibrillation ([facility]) after CABG CAD (coronary artery disease) 3 Vessel Claudication ([facility]) Left lower extremity symptoms Fractures Hypertension Mitral valve annular calcification Myocardial infarction ([facility]) 08/02/2015 Non-ST Obesity 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 Tendonitis of wrist, right TIA (transient ischemic attack) 2007 was put on plavix then had subdural one year later. Vitreous hemorrhage of left eye ([facility]) Past Surgical History: Procedure Laterality Date AORTIC VALVE REPLACEMENT CARDIAC CATHETERIZATION CARDIAC CATHETERIZATION N/A 12/25/2021 Procedure: Coronary Angiogram; Surgeon: Adilson Stone MD; Location: [facility]; Service: Cardiovascular CARDIAC CATHETERIZATION N/A 12/25/2021 Procedure: Left Heart Cath w/Grafts; Surgeon: Adilson Stone MD; Location: [facility]; Service: Cardiovascular CARDIAC VALVE REPLACEMENT CORONARY ARTERY BYPASS GRAFT 08/13/2015 3 Vessel/YEUNG to the LAD/SVG to obtuse marginal/SVG to a PDA MOUTH SURGERY 2007 Oral cancer TENDON RELEASE DEQUERVAINS Right 12/26/2018 Procedure: TENDON RELEASE DE QUERVAINS RIGHT; Surgeon: Jenaro Oquendo MD; Location: [facility] OR; Service: Orthopedic Current Outpatient Medications Medication Sig Dispense Refill acetaminophen (TYLENOL) 325 MG tablet Take 2 (two) tablets (650 mg total) by mouth every 6 (six) hours as needed for pain (1-2 tablets) . apixaban (ELIQUIS) 5 mg Tab Take 1 (one) tablet (5 mg total) by mouth 2 (two) times a day . 60 tablet 3 ascorbic Acid (VITAMIN C) 500 mg CpER Take 1 (one) capsule (500 mg total) by mouth every other day . aspirin 81 MG EC tablet Take 1 tablet (81 mg total) by mouth daily. 90 tablet 3 blood sugar diagnostic (glucose blood) strips Dx code E11.9 use to check BG 4x daily. 150 strip 11 blood sugar diagnostic (RELION PRIME TEST STRIPS) strips E11.65 Use as directed 4 times per day. 150 strip 11 bumetanide (BUMEX) 1 MG tablet Take 1/2 (one-half) tablet by mouth once daily 45 tablet 3 cilostazoL (PLETAL) 100 MG tablet Take 1 (one) tablet (100 mg total) by mouth 2 (two) times a day Take on an empty stomach . 60 tablet 5 docusate sodium (COLACE) 100 MG capsule Take 1 (one) capsule (100 mg total) by mouth 2 (two) times a day as needed . flash glucose sensor (FreeStyle Johnny 2 Sensor) Kit 1 kit by Miscellaneous route every 14 (fourteen) days Use as directed to apply new sensor . 2 kit 11 insulin glargine (Lantus U-100 Insulin) 100 unit/mL injection Inject 28 (twenty eight) Units under the skin nightly . 30 mL 3 insulin lispro (AdmeLOG,HumaLOG) 100 unit/mL injection USE DIRECTED, APPROXIMATELY 30 UNITS A DAY. . 30 mL 3 insulin syringe-needle U-100 0.3 mL 31 gauge x 5/16 Syrg Use as directed QID . 400 each 3 lancets Misc Use to check BG QID SolusV2 brand Dx E11.65. 200 each 11 lisinopriL (PRINIVIL,ZESTRIL) 20 MG tablet Take 1 (one) tablet (20 mg total) by mouth daily . 90 tablet 3 metoprolol succinate (TOPROL-XL) 25 MG 24 hr tablet Take 1 (one) tablet (25 mg total) by mouth 2 (two) times a day . 180 tablet 3 pen needle, diabetic 31 gauge x 3/16 Ndle Use as directed 4 times daily. . 400 each 3 potassium chloride 20 mEq TbER TAKE 1 TABLET BY MOUTH EVERY OTHER DAY 45 tablet 3 psyllium (METAMUCIL) 0.52 gram capsule Take 2 (two) capsules (1.04 g total) by mouth as needed . simvastatin (ZOCOR) 40 MG tablet Take 1 (one) tablet (40 mg total) by mouth at bedtime . 90 tablet 3 No current facility-administered medications for this visit. Social History Socioeconomic History Marital status: Tobacco Use Smoking status: Former Packs/day: 3.00 Years: 12.00 Pack years: 36.00 Types: Cigarettes Quit date: 08/27/1973 Years since quittin.8 Smokeless tobacco: Former Types: Chew Vaping Use Vaping Use: Never used Substance and Sexual Activity Alcohol use: Not Currently Alcohol/week: 0.0 standard drinks Drug use: No Sexual activity: Not Currently Partners: Female Social History Narrative Living with partner, 2 kids and one grand-duaghter Retired [place] [employer] of [employer] in 2005 Allergies: Allergies Allergen Reactions Pioglitazone GI Intolerance Care Team Patient Care Team: Vivien Foreman MD as PCP - General (Family Medicine) Radha Hughes CNP as Nurse Practitioner (Nurse Practitioner) Preston Healy MD as Consulting Physician (Cardiovascular Disease) Adilson Stone MD (Cardiology) Hola Arroyo Jr., DPM (Podiatry) Sanju Bill III, DO as Consulting Physician (Vascular Surgery) Pharmacy / Equipment Co. (DME) [facility] [address] [place] [address] - [address] [address] [facility] [address] [place] [id number] Objective Blood pressure 104/62, pulse 87, temperature 97.8 F (36.6 C), temperature source Temporal, resp. rate 18, height 5' 7, weight 101.4 kg (223 lb 8 oz), SpO2 92 %. Body mass index is 35.01 kg/m . Vitals: PACU Vitals 06/14/22 0805 BP: 104/62 Pulse: Resp: Temp: SpO2: PainSc: Vision and Hearing Screen: No results found. Assessment: There were no encounter diagnoses. Plan: During the course of the visit the patient was educated and counseled about appropriate screening and preventive services including: Advice / Referrals: Provide Healthwise patient instructions, Refer to Behavioral Health Resources, and Provide Choices-Living Will at the End of Life Packet Handouts Reviewed and discussed with Patient: DNR forms Problem List Items Addressed This Visit Cardiovascular and Mediastinum A-fib (HCC) (Chronic) Doing well , stable on eliquis and metoprolol PAD (peripheral artery disease) (HCC) Stable and improving on cilostazole Other Mild major depression (HCC) PHQ9 score 10 and GAD7 score 8 Had a lengthy discussion about counseling vs medication He was in favor of taking medication and starting on lexapro 5 mg Close follow up in one month Relevant Medications escitalopram oxalate (LEXAPRO) 5 MG tablet Medicare annual wellness visit, subsequent Patient is able to do ADLs and iADLs Low risk for dementia , low risk for falls Advised to remove the rug in the house Patient was counseled about advanced directives and code status, given forms for DNR Encouraged to discuss with partner and kids. Advanced directives, counseling/discussion Patient was counseled about advanced directives and code status, given forms for DNR Encouraged to discuss with partner and kids. Other Visit Diagnoses At low risk for fall - Primary Need for COVID-19 vaccine 5-Year Plan: Health Maintenance Topic Date Due Hepatitis C Screening Never done Tetanus: Every 10yrs 03/18/2021 Urine Microalbumin 12/17/2021 COVID-19 Vaccine (5 - Booster for Moderna series) 02/04/2022 Wellness Visit 03/02/2022 A1C 05/20/2022 Falls Risk Assessment 06/12/2022 Foot Exam 02/19/2023 Ophthalmology Exam 04/05/2023 Pneumococcal Vaccine: Age 65+ Completed Zoster Vaccines Completed Sequential Influenza Vaccine Completed Patient Instructions (the written plan) was given to the patient. Depression Screening 12/16/2020 03/02/2021 06/12/2021 12/10/2021 02/22/2022 06/14/2022 Little interest or pleasure in doing things 2 2 0 1 0 1 Feeling down, depressed, or hopeless 2 1 3 1 0 2 PHQ-2 Total Score 4 3 3 2 0 3 Trouble falling or staying asleep, or sleeping too much 2 2 0 0 - 1 Feeling tired or having little energy 1 1 0 0 - 0 Poor appetite or overeating 0 0 0 0 - 0 Feeling bad about yourself - or that you are a failure or have let yourself or your family down 2 21 2 - 3 Trouble concentrating on things, such as reading the newspaper or watching television 2 2 1 1 - 2 Moving or speaking so slowly that other people could have noticed. Or the opposite - being so fidgety or restless that you have been moving around a lot more than usual 0 0 3 0 - 0 Thoughts that you would be better off , or of hurting yourself in some way 2 0 0 1 - 1 PHQ-9 Total Score 13 10 8 6 - 10 If you checked off any problems, how difficult have these problems made it for you to do your work,take care of things at home, or get along with other people? Somewhat difficult - Somewhat difficult Not difficult at all - Somewhat difficult documented in this [id number] Evaluation + Plan note* Assessment & Plan Note - Vivien Foreman MD - 06/14/2022 8:39 AM ESTAssociated Problem(s): Medicare annual wellness visit, subsequent Patient is able to do ADLs and iADLs Low risk for dementia , low risk for falls Advised to remove the rug in the house Patient was counseled about advanced directives and code status, given forms for DNR Encouraged to discuss with partner and kids. [id number] Evaluation + Plan note* Assessment & Plan Note - Vivien Foreman MD - 06/14/2022 8:20 AM ESTAssociated Problem(s): Mild major depression (HCC) PHQ9 score 10 and GAD7 score 8 Had a lengthy discussion about counseling vs medication He was in favor of taking medication and starting on lexapro 5 mg Close follow up in one month [id number] Instructions* Patient Instructions* Vivien Foreman MD - 06/14/2022 8:18 AM EST STEADI Low Risk Patient Instructions: Your Falls Screening today shows that you are at low risk for falls. To further protect yourself from falls and maintain your independence, we recommend: 1. Read through the brochure, What You Can Do to Prevent Falls (from [facility]). 2. Go through the brochure, Check for Safety: A Home Fall Prevention Checklist for Older Adults (from [facility]), and make changes as recommended. 3. Join a community falls prevention program: Stepping On, a 7-week evidence based program that teaches balance exercises and fall prevention strategies Gaetano Chi for older adults, group exercise that teaches Gaetano Chi forms that reduce fall risk (weight shifting, postural alignment and control, and coordinated movements of the arms, legs, head, and trunk) Matter of Balance, an evidence based program designed to reduce the fear of falling and increase activity levels of older adults OR an exercise class for strength and balance. 4. Take your Vitamin D with or without Calcium, as determined by your healthcare provider. 5. Get your vision and hearing checked annually. Falls At Home Each year, thousands of older Americans fall at home. Many of them are seriously injured, and some are disabled. In 2011, nearly 23,000 people over age 65 and 2.4 million were treated in emergency departments because of falls. Falls are often due to hazards that are easy to overlook but easy to fix. This checklist will help you find and fix those hazards in your home. The checklist asks about hazards found in each room of your home. For each hazard, the checklist tells you how to fix the problem. At the end of the checklist, you ll find other tips for preventing falls. FLOORS: Look at the floor in each room. Q: When you walk through a room, do you have to walk around furniture? A. Ask someone to move the furniture so your path is clear Q: Do you have throw rugs on the floor? A. Remove the rugs or use double-sided tape or a non-slip backing so the rugs won t slip. Q: Are there papers, books, towels, shoes, magazines, boxes, blankets, or other objects on the floor? A.first line supervisor things that are on the floor. Always keep objects off the floor. Q: Do you have to walk over or around wires or cords (like lamp, telephone, or extension cords)? A. Coil or tape cords and wires next to the wall so you can t trip over them. If needed, have an plant electrician put in another outlet. STAIRS AND STEPS: Look at the stairs you use both inside and outside your home. Q: Are there papers, shoes, books, or other objects on the stairs? A. first line supervisor things on the stairs. Always keep objects off stairs. Q: Are some steps broken or uneven? A. Fix loose or uneven steps. Q: Are you missing a light over the stairway? A. Have an plant electrician put in an overhead light at the top and bottom of the stairs. Q: Do you have only one light switch for your stairs (only at the top or at the bottom of the stairs)? A. Have an plant electrician put in a light switch at the top and bottom of the stairs. You can get lightswitches that glow. Q: Has the stairway light bulb burned out? A. Have a friend or family member change the light bulb. Q: Is the carpet on the steps loose or torn? A. Make sure the carpet is firmly attached to every step, or remove the carpet and attach non-slip rubber treads to the stairs. Q: Are the handrails loose or broken? Is there a handrail on only one side of the stairs? A. Fix loose handrails or put in new ones. Make sure handrails are on both sides of the stairs and are as long as the stairs. KITCHEN: Look at your kitchen and eating area. Q: Are the things you use often on high shelves? A. Move items in your cabinets. Keep things you use often on the lower shelves (about waist level). Q: Is your step stool unsteady? A. If you must use a step stool, get one with a bar to hold on to. Never use a chair as a step stool. BATHROOMS: Look at all your bathrooms. Q: Is the tub or shower floor slippery? A. Put a non-slip rubber mat or self-stick strips on the floor of the tub or shower. Q: Do you need some support when you get in and out of the tub or up from the toilet? A. Have grab bars put in next to and inside the tub and next to the toilet. BEDROOMS: Look at all your bedrooms. Q: Is the light near the bed hard to reach? A. Place a lamp close to the bed where it s easy to reach. Q: Is the path from your bed to the bathroom dark? A. Put in a night-light so you can see where you re walking. Some night-lights go on by themselves after dark. Other Things You Can Do to Prevent Falls Do exercises that improve your balance and make your legs stronger. Exercise also helps you feel better and more confident. Have your doctor or pharmacist look at all the medicines you take, even aopn-ozh-yanseky medicines.Some medicines can make you sleepy or dizzy. Have your eyes checked by an eye doctor at least once a year and update your glasses. Get up slowly after you sit or lie down. Wear shoes both inside and outside the house. Avoid going barefoot or wearing slippers. Improve the lighting in your home. Put in brighter light bulbs. Florescent bulbs are bright and cost less to use. It s safest to have uniform lighting in a room. Add lighting to dark areas. Hang lightweight curtains or shades to reduce glare. [place] a contrasting color on the top edge of all steps so you can see the stairs better. For example, use a light color paint on dark wood. To access this brochure online, please visit the CDC website at http://www.cdc.gov/steadi/pdf/check_for_safety_brochure-a.pdf Chair Rise Exercise What it does: Strengthens the muscles in your thighs & buttocks. Goal: To do this exercise without using your hands as you become stronger. How to do it: 1. Sit toward the front of a sturdy chair with your knees bent & feet flat on the floor shoulder-width apart 2. Rest your hands lightly on the seat on either side of you, keeping your back & neck straight& and chest slightly forward. 3. Breathe in slowly. Lean forward & feel your weight on the front of your feet. 4. Breathe out and slowly stand up, using your hands as little as possible. 5. Pause for a full breath in & out. 6. Breathe in as you slowly sit down. Do not let yourself collapse back down into the chair. Rather, control your lowering as much as possible. 7. Breathe out. Repeat 10-15 times. If this number is too hard for you when you first start practicing this exercise, begin with fewer and work up to this number. Rest for a minute & then do a final set of 10-15. For detailed instructions, please visit the CDC website at http://www.cdc.gov/steadi/pdf/chair_rise_exercise-a.pdf Stepping On is an evidence based program proven to reduce falls in older adults. It is a workshop offered once a week for seven weeks. In a small-group setting, you will learn balance exercises and develop specific knowledge and skills to prevent falls. Older adults who should attend are those who: are at risk of falling who have fallen one or more times lives at home are able to walk without the help of another person Local guest experts provide information on exercise, safety, vision, and medications. Classes are offered at [facility]. To find out specifics about a class, please call [phone]. Gaetano chi: Moving for Better Balance involves low impact exercise. The 12-week class is offered for three hours per week and is led by a trained interior design instructor. It is intended for people aged 60 and older. Participants learn and perform a program of eight forms that progress from easy to more difficult. The program can accommodate persons with various physical conditions. Health Benefits of Gaetano Chi: Moving for Better Balance: Improved social and mental well-being, Improved balance and physical functioning, Improved confidence in conducting daily activities, Reduced risk of falling and sustaining associated injuries, and Maintained independence and improved quality of life. To find a Gaetano Chi program in your area or additional resources about fall prevention please contact: [facility] Violence and Injury Prevention Program at [phone] or [email or web address] A Matter of Balance: Managing Concerns about Falls is an evidence based program designed to reduce the fear of falling and increase activity levels of older adults. A trained nail setter leads 8 two-hour sessions for small groups of older adults. The class is intended for people 60 and older who are at risk of falling have a fear of falling or restrict activities who have fallen in the past are interested in improving flexibility, balance, and strength. Participants will learn to view falls as controllable, set goals to increase activity levels, and reduce fall risks at home. Classes are offered in all [address] [place] [address] in [place]. For more information about specific classes near you, please visit http://aging.[place].gov/steadyu/resources/matterofbalance.aspx. documented in this [id number] Evaluation + Plan note* Assessment & Plan Note - Preston Healy MD - 05/14/2022 9:16 AM EDT Associated Problem(s): S/P aortic valve replacement Reviewed. [id number] Evaluation + Plan note* Assessment & Plan Note - Preston Healy MD - 05/14/2022 9:16 AM EDTAssociated Problem(s): S/P CABG (coronary artery bypass graft) No angina no evidence of heart failure. [id number] Miscellaneous Notes* Assessment & Plan Note - Preston Healy MD - 05/14/2022 9:16 AM EDTAssociated Problem(s): S/P aortic valve replacement Reviewed. * Assessment & Plan Note - Preston Healy MD - 05/14/2022 9:16 AM EDT Associated Problem(s): S/P CABG (coronary artery bypass graft) No angina no evidence of heart failure. * Assessment & Plan Note - Preston Healy MD - 05/14/2022 9:15 AM EDT Associated Problem(s): A-fib (HCC) Reviewed. documented in this [id number] Evaluation + Plan note* Assessment & Plan Note - Preston Healy MD - 05/14/2022 9:15 AM EDT Associated Problem(s): A-fib (HCC) Reviewed. [id number] History of Present illness Narrative* Preston Healy MD - 05/14/2022 9:13 AM EDT [facility] [address] [facility] [address] [facility] [id number] Subjective: Andrew Arnold is a 76 y.o. male seen in the office today for Chief Complaint Patient presents with Follow-up Yearly -pt states he has an indentation from his sock and wants to know if that's normal Patient continues to do well. Denies any chest pain or significant shortness of breath. Does have chronic persistent atrial fibrillation oral anticoagulation and rate control. History of normal LV function. History of moderate prosthetic aortic valve stenosis severe [place] coronary disease with patent coronary grafting by heart cath summer 2021. Claudication improved with the Pletal following with vascular. History of insulin-dependent diabetes. . Overview of Problems Addressed: Problem A-Fib (Hcc) Holter monitor A. fib throughout with rate controlled. Otherwise unremarkable. Rate control oral anticoagulation. New finding EKG January 09, 2021 A. fib patient essentially asymptomatic with it. Did have a history ofA. fib after his coronary bypass grafting with cardioversion at that time. No known recurrent A. fib until today. Wide QRS as before. Tolerates it well has had a little bit of lightheadedness here and there. Heart rate 75. S/P Cabg (Coronary Artery Bypass Graft) Heart cath December 2021 patent grafts severe [place] coronary artery disease Medical therapy ON 08/11/[address] SONAM MÉNDEZ History of coronary bypass grafting 3 History of tissue aortic valve replacement early August 2015. S/P Aortic Valve Replacement 08/26 tissue AVR. 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 2021 Assessment & Plan: Plan no change medications tolerating denies any bruising or bleeding issues. No changes today. See back in 6 months A-fib (HCC) Reviewed. S/P CABG (coronary artery bypass graft) No angina no evidence of heart failure. S/P aortic valve replacement Reviewed. Histories: Past Medical History: Diagnosis Date Aortic valve calcification Arrhythmia Atrial fibrillation ([facility]) after CABG CAD (coronary artery disease) 3 Vessel Claudication ([facility]) Left lower extremity symptoms Fractures Hypertension Mitral valve annular calcification Myocardial infarction (HCC) 08/02/2015 Non-ST Obesity Oral cancer (HCC) Pilonidal cyst Subdural hematoma 2008 minor trauma while on Plavix at the time. Tendonitis of wrist, right TIA (transient ischemic attack) 2007 was put on plavix then had subdural one year later. Vitreous hemorrhage of left eye ([facility]) Past Surgical History: Procedure Laterality Date AORTIC VALVE REPLACEMENT CARDIAC CATHETERIZATION CARDIAC CATHETERIZATION N/A 12/25/2021 Procedure: Coronary Angiogram; Surgeon: Adilson Stone MD; Location: [facility]; Service: Cardiovascular CARDIAC CATHETERIZATION N/A 12/25/2021 Procedure: Left Heart Cath w/Grafts; Surgeon: Adilson Stone MD; Location: [facility]; Service: Cardiovascular CARDIAC VALVE REPLACEMENT CORONARY ARTERY BYPASS GRAFT 08/13/2015 3 Vessel/YEUNG to the LAD/SVG to obtuse marginal/SVG to a PDA MOUTH SURGERY 2007 Oral cancer TENDON RELEASE DEQUERVAINS Right 12/26/2018 Procedure: TENDON RELEASE DE QUERVAINS RIGHT; Surgeon: Jenaro Oquendo MD; Location: Main OR; Service: Orthopedic Family History Problem Relation Age of Onset COPD Mother Diabetes Father Stroke Paternal Grandmother Social History Tobacco Use Smoking status: Former Packs/day: 3.00 Years: 12.00 Pack years: 36.00 Types: Cigarettes Quit date: 08/27/1973 Years since quittin.7 Smokeless tobacco: Former Types: Chew Vaping Use Vaping Use: Never used Substance Use Topics Alcohol use: Not Currently Alcohol/week: 0.0 standard drinks Drug use: No Patient's Medications New Prescriptions No medications on file Previous Medications ACETAMINOPHEN (TYLENOL) 325 MG TABLET Take 650 mg by mouth every 6 (six) hours as needed for pain (1-2 tablets). APIXABAN (ELIQUIS) 5 MG TAB Take 1 (one) tablet (5 mg total) by mouth 2 (two) times a day . ASCORBIC ACID (VITAMIN C) 500 MG CPER Take 500 mg by mouth every other day . ASPIRIN 81 MG EC TABLET Take 1 tablet (81 mg total) by mouth daily. BLOOD SUGAR DIAGNOSTIC (GLUCOSE BLOOD) STRIPS Dx code E11.9 use to check BG 4x daily. BLOOD SUGAR DIAGNOSTIC (RELION PRIME TEST STRIPS) STRIPS E11.65 Use as directed 4 times per day. BUMETANIDE (BUMEX) 1 MG TABLET Take 1/2 (one-half) tablet by mouth once daily CILOSTAZOL (PLETAL) 100 MG TABLET Take 1 (one) tablet (100 mg total) by mouth 2 (two) times a day Take on an empty stomach . DOCUSATE SODIUM (COLACE) 100 MG CAPSULE Take 100 mg by mouth 2 (two) times a day as needed . FLASH GLUCOSE SENSOR (FREESTYLE JOHNNY 2 SENSOR) KIT 1 kit by Miscellaneous route every 14 (fourteen) days Use as directed to apply new sensor . INSULIN GLARGINE (LANTUS U-100 INSULIN) 100 UNIT/ML INJECTION Inject 28 (twenty eight) Units under the skin nightly . INSULIN LISPRO (ADMELOG,HUMALOG) 100 UNIT/ML INJECTION USE DIRECTED, APPROXIMATELY 30 UNITS A DAY. . INSULIN SYRINGE-NEEDLE U-100 0.3 ML 31 GAUGE X 5/16 SYRG Use as directed QID . LANCETS MISC Use to check BG QID SolusV2 brand Dx E11.65. LISINOPRIL (PRINIVIL,ZESTRIL) 20 MG TABLET Take 1 (one) tablet (20 mg total) by mouth daily . METOPROLOL SUCCINATE (TOPROL-XL) 25 MG 24 HR TABLET Take 1 (one) tablet (25 mg total) by mouth 2 (two) times a day . PEN NEEDLE, DIABETIC 31 GAUGE X 3/16 NDLE Use as directed 4 times daily. . POTASSIUM CHLORIDE 20 MEQ TBER TAKE 1 TABLET BY MOUTH EVERY OTHER DAY PSYLLIUM (METAMUCIL) 0.52 GRAM CAPSULE Take 2 capsules by mouth as needed . SIMVASTATIN (ZOCOR) 40 MG TABLET Take 1 (one) tablet (40 mg total) by mouth at bedtime . Modified Medications No medications on file Discontinued Medications No medications on file Allergies Allergen Reactions Pioglitazone GI Intolerance Review of Systems Constitutional: Negative for malaise/fatigue. Cardiovascular: Negative for chest pain, dyspnea on exertion, leg swelling and palpitations. Neurological: Negative for dizziness. Objective: Physical Exam Vitals and nursing note reviewed. Constitutional: General: He is not in acute distress. Appearance: He is well-developed. He is not diaphoretic. HENT: Head: Normocephalic. Eyes: General: No scleral icterus. Comments: Pupils reactive Neck: Vascular: No JVD. Cardiovascular: Rate and Rhythm: Rhythm irregular. Pulses: Radial pulses are 2+ on the right side and 2+ on the left side. Heart sounds: S1 normal and S2 normal. Murmur heard. No gallop. No S3 or S4 sounds. Comments: 2- 3/6 systolic murmur right sternal border. No diastolic murmur heard. Pulmonary: Effort: No respiratory distress. Breath sounds: Normal breath sounds. No stridor. No wheezing or rales. Abdominal: General: There is no distension. Palpations: Abdomen is soft. Tenderness: There is no abdominal tenderness. There is no guarding. Musculoskeletal: General: No tenderness. Comments: Trace pedal edema. Skin: General: Skin is warm and dry. Neurological: Mental Status: He is alert and oriented to person, place, and time. Coordination: Coordination normal. Vitals: Vitals: 05/14/22 0825 BP: 126/68 BP Location: Left arm Patient Position: Sitting BP Cuff Size: Adult Pulse: 79 SpO2: 93% Weight: 98.9 kg (218 lb) Height: 5' 7 Body mass index is 34.14 kg/m . No orders of the defined types were placed in this encounter. Follow Up Ordered: Return in about 6 months (around 11/11/2022). Preston Healy MD * Tianna Conn MA - 05/14/2022 8:30 AM EDT Review of Systems Constitutional: Negative for malaise/fatigue. Cardiovascular: Negative for chest pain, dyspnea on exertion, leg swelling and palpitations. Neurological: Negative for dizziness. documented in this [id number] Instructions* Patient Instructions* Tianna Conn MA - 05/14/2022 8:30 AM EDT How to Contact your Care Team: Provider: Dr. Preston Healy MD Silk Screen Layout Drafter: Yun Darnell RN documented in this [id number] History of Present illness Narrative* Hola Arroyo Jr., DPM - 04/07/2022 8:18 AM EDT Nail care shoes Patient is a pleasant 76year-old male who comes in today for nail care. His geriatric status and diabetes is managed by primary including Dr. Foreman. Comes in today for nail care. Addition, patient states is coming in today to try to get a set of diabetic shoes. He states that his pain management doctor noticed a small wound on the tip of his left fourth toe thinks it is because of his shoes that he is wearing. Wondering if he can get into a pair of diabetic shoes for help. Physical Vascular: DP pulses are palpable 2-4. PT pulses are nonpalpable due to edema. +1 foot and ankle edema. Skin is shiny atrophic dysvascular with absence of hair growth. Feet are warm to cool proximal to distal. Nails left foot [id number] and right foot 00722 are elongated thickened mycotic crumbling dystrophic. Neuro: Light blunted at 3-6 sites bilaterally. Babinski's is blunted. Musculoskeletal: Can easily wiggle toes not any clicking or catching. Mild hammering of the distal digits 2 through 4 right and left foot with some pes planovalgus foot type. 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 Patient is additionally with diabetic induced distal peripheral neuropathy with an at risk foot type. -Given his elevated limb loss risk score, did prescribe a set of diabetic shoes with inserts for protection and prevention. -Given his elevated limb loss risk score he does qualify for nail care. Procedure: After timeout consent was performed, sharply debrided and debulk in height and length 10onychomycotic nails with a sharp around nail nippers consistent with a q8 modifier. Low medical complexity decision making based on limb loss risk score separate than his nail care. Follow-up in 3 months documented in this [id number] Telephone encounter Note* Telephone Encounter - Tianna Conn MA - 04/05/2022 8:45 AM EDT Last ov 06/19/21 w/ Dr. Healy Upcoming 05/14/22 [id number] Miscellaneous Notes* Telephone Encounter - Tianna Conn MA - 04/05/2022 8:45 AM EDT Last ov 06/19/21 w/ Dr. Healy Upcoming 05/14/22 documented in this [id number] Instructions* Patient Instructions* Nilsa Garza MA - 03/17/2022 2:14 PM EDT How to contact your Care Team: Providers: DO Duane Centeno III, CNP Jill Bender, PA Nurse: Kalyn Stewart RN To reschedule office appointments call Scheduling [phone] In case of an emergency please call 911. When in need of refills please call the phone number listed above. Please include medication name, pharmacy name and specify 30 or 90 day supply Please check with your pharmacy within 24 hours of your request for refill. You must follow up as directed to continue current refills. Thank you! documented in this [id number] History of Present illness Narrative* Sanju Bill LAQUITA, DO - 03/17/2022 1:42 PM EDT Assessment & Plan: 1. 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, bilateral legs(HCC) Ambulatory referral to Vascular Surgery cilostazoL (PLETAL) 100 MG tablet 2. PAD (peripheral artery disease) ([facility]) Ambulatory referral to Vascular Surgery cilostazoL (PLETAL) 100 MG tablet 3. Persistent atrial fibrillation (HCC) 4. Morbid obesity (HCC) 5. Type 2 diabetes mellitus with other circulatory complication, with long-term current use of insulin (HCC) Plan: At the present time, Mr. Snyder does have claudication symptomatology consistent with PAD. His ARIELLE today does show moderate arterial occlusive disease based on waveform patterns. He has multiple medical issues which make it a challenge to be aggressive at the present time, and he is not really interested in being aggressive right now. He rather try more conservative methods which I think is appropriate. As result, we will put him on Pletal (100 mg twice daily). I did explain the issues regardingEliquis and antiplatelet therapy. He understands the issues regarding increased bleeding risk, but at the present time I feel more conservative course is indicated since he does not have any ulcers, tissue loss or gangrene or evidence of critical limb ischemia. Though his left fourth toe abrasion has some concern based upon his diabetic disease and PAD. I think he has adequate perfusion for healing, but I did recommend that he get into see his planning specialist for further therapy and possibly gettinginto diabetic footwear. We will see him back in the office in 3 months. I explained the need to start an exercise program to really examine the distances of his ambulation and evaluate the symptomatology especially since restarting him on cilostazol (Pletal). We will see him back in the office in 3months and monitor him clinically. If there are any deterioration or changes in the future, he is to contact us. We will keep you informed, and we appreciate the opportunity to consult on his care. Follow Up Ordered: Return in about 3 months (around 06/16/2022) for Recheck. Subjective: Andrew Arnold is a 76 y.o. male seen in the office today for consultation regarding PAD with claudication. Mr. Snyder (birthday 1945) was seen in the office on March 17, 2022. 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 This patient describes difficultywalking for the last 2 to 3 years. But his distances of decreased as time is progressed. Part of itI think is related to COVID pandemic and decreased activity and decreased outside routines. Part ofit also is just age-related and progressive diabetic disease. He says he can walk 90 to 100 feet before he has to stop and rest due to leg pain and ache. He says both legs bother him, but his left leg is more symptomatic than his right leg. He states this really started several years ago after he underwent a CABG with right leg vein harvesting. He does have some arthritic disease of the back, butthis is not attributable to much to his claudication symptomatology. He does see a planning specialist, but only for trimming his toenails. He does comment that he did stub his left fourth toe, but it seems to be healing satisfactorily. He does not smoke since 1973. He does have a history of atrial fibrillation and is chronically on Eliquis. His CABG included a bypass as well as aortic valve replacement. He did have a heart cath approximately 2 months ago secondary to questionable angina change in his, though there is just a small branch, that they did not want to pursue any aggressive stent and placement at this point time. His bypass grafts are patent. Histories: Past Medical History: Diagnosis Date Aortic valve calcification Arrhythmia Atrial fibrillation (HCC) after CABG CAD (coronary artery disease) 3 Vessel Claudication (HCC) Left lower extremity symptoms Fractures Hypertension Mitral valve annular calcification Myocardial infarction (HCC) 08/02/2015 Non-ST Obesity Oral cancer (HCC) Pilonidal cyst Subdural hematoma (HCC) 2008 minor trauma while on Plavix at the time. Tendonitis of wrist, right TIA (transient ischemic attack) 2007 was put on plavix then had subdural one year later. Vitreous hemorrhage of left eye (HCC) Past Surgical History: Procedure Laterality Date AORTIC VALVE REPLACEMENT CARDIAC CATHETERIZATION CARDIAC CATHETERIZATION N/A 12/25/2021 Procedure: Coronary Angiogram; Surgeon: Adilson Stone MD; Location: [facility]; Service: Cardiovascular CARDIAC CATHETERIZATION N/A 12/25/2021 Procedure: Left Heart Cath w/Grafts; Surgeon: Adilson Stone MD; Location: [facility]; Service: Cardiovascular CARDIAC VALVE REPLACEMENT CORONARY ARTERY BYPASS GRAFT 08/13/2015 3 Vessel/YEUNG to the LAD/SVG to obtuse marginal/SVG to a PDA MOUTH SURGERY 2007 Oral cancer TENDON RELEASE DEQUERVAINS Right 12/26/2018 Procedure: TENDON RELEASE DE QUERVAINS RIGHT; Surgeon: Jenaro Oquendo MD; Location: Main OR; Service: Orthopedic Family History Problem Relation Age of Onset COPD Mother Diabetes Father Stroke Paternal Grandmother Social History Tobacco Use Smoking status: Former Packs/day: 3.00 Years: 12.00 Pack years: 36.00 Types: Cigarettes Quit date: 08/27/1973 Years since quittin.5 Smokeless tobacco: Former Types: Chew Vaping Use Vaping Use: Never used Substance Use Topics Alcohol use: Not Currently Alcohol/week: 0.0 standard drinks Drug use: No Current Outpatient Medications Medication Sig Dispense Refill acetaminophen (TYLENOL) 325 MG tablet Take 650 mg by mouth every 6 (six) hours as needed for pain (1-2 tablets). apixaban (ELIQUIS) 5 mg Tab Take 1 (one) tablet (5 mg total) by mouth 2 (two) times a day . 60 tablet 3 ascorbic Acid (VITAMIN C) 500 mg CpER Take 500 mg by mouth every other day . aspirin 81 MG EC tablet Take 1 tablet (81 mg total) by mouth daily. 90 tablet 3 blood sugar diagnostic (glucose blood) strips Dx code E11.9 use to check BG 4x daily. 150 strip 11 blood sugar diagnostic (RELION PRIME TEST STRIPS) strips E11.65 Use as directed 4 times per day. 150 strip 11 bumetanide (BUMEX) 1 MG tablet Take 0.5 (one-half) tablet (0.5 mg total) by mouth every other day .8 tablet 0 docusate sodium (COLACE) 100 MG capsule Take 100 mg by mouth 2 (two) times a day as needed . flash glucose sensor (FreeStyle Johnny 2 Sensor) Kit 1 kit by Miscellaneous route every 14 (fourteen) days Use as directed to apply new sensor . 2 kit 11 insulin glargine (Lantus U-100 Insulin) 100 unit/mL injection Inject 28 (twenty eight) Units under the skin nightly . 30 mL 3 insulin lispro (AdmeLOG,HumaLOG) 100 unit/mL injection USE DIRECTED, APPROXIMATELY 30 UNITS A DAY. . 30 mL 3 insulin syringe-needle U-100 0.3 mL 31 gauge x 5/16 Syrg Use as directed QID . 400 each 3 lancets Mis Use to check BG QID SolusV2 brand Dx E11.65. 200 each 11 lisinopriL (PRINIVIL,ZESTRIL) 20 MG tablet Take 1 (one) tablet (20 mg total) by mouth daily . 90 tablet 3 metoprolol succinate (TOPROL-XL) 25 MG 24 hr tablet Take 1 (one) tablet (25 mg total) by mouth 2 (two) times a day . 180 tablet 3 pen needle, diabetic 31 gauge x 3/16 Ndle Use as directed 4 times daily. . 400 each 3 potassium chloride 20 mEq TbER Take 1 (one) tablet (20 mEq total) by mouth every other day . 45 tablet 3 psyllium (METAMUCIL) 0.52 gram capsule Take 2 capsules by mouth as needed . cilostazoL (PLETAL) 100 MG tablet Take 1 (one) tablet (100 mg total) by mouth 2 (two) times a day Take on an empty stomach . 60 tablet 5 simvastatin (ZOCOR) 40 MG tablet Take 1 (one) tablet (40 mg total) by mouth at bedtime . 90 tablet 3 No current facility-administered medications for this visit. Allergies Allergen Reactions Pioglitazone GI Intolerance Review of Systems Constitutional: Negative for chills, decreased appetite, fever, night sweats, weight gain and weight loss. HENT: Negative. Negative for hoarse voice and sore throat. Eyes: Negative for vision loss in left eye, vision loss in right eye and visual disturbance. Cardiovascular: Positive for claudication. Negative for chest pain, cyanosis, dyspnea on exertion, irregular heartbeat, leg swelling, palpitations and paroxysmal nocturnal dyspnea. Respiratory: Negative for cough, hemoptysis, shortness of breath, sleep disturbances due to breathing and wheezing. Endocrine: Negative. Negative for cold intolerance. Hematologic/Lymphatic: Negative for bleeding problem. Does not bruise/bleed easily. Skin: Positive for color change and unusual hair distribution. Negative for dry skin, nail changes and poor wound healing. Musculoskeletal: Positive for arthritis, myalgias and stiffness. Negative for back pain, falls, gout, joint pain and muscle weakness. Gastrointestinal: Negative for abdominal pain, constipation, diarrhea, heartburn, jaundice, melena,nausea and vomiting. Genitourinary: Negative for dysuria, flank pain, frequency, hematuria and nocturia. Neurological: Positive for numbness and paresthesias. Negative for brief paralysis, dizziness, focal weakness, headaches, light-headedness and loss of balance. Psychiatric/Behavioral: Negative for altered mental status, depression, memory loss and substance abuse. The patient is not nervous/anxious. Allergic/Immunologic: Negative. Negative for hives and persistent infections. Objective: Vitals: Vitals: 03/17/22 1414 03/17/22 1420 BP: 113/74 112/73 BP Location: Right arm Left arm Patient Position: Sitting Sitting Pulse: 68 80 Weight: 98.9 kg (218 lb) Height: 5' 7 Physical Exam Vitals reviewed. Constitutional: General: He is awake. Appearance: Normal appearance. He is well-developed. He is obese. HENT: Head: Normocephalic and atraumatic. Eyes: General: Lids are normal. Extraocular Movements: Extraocular movements intact. Conjunctiva/sclera: Conjunctivae normal. Neck: Thyroid: No thyromegaly. Vascular: Normal carotid pulses. No carotid bruit or JVD. Trachea: Trachea normal. Cardiovascular: Rate and Rhythm: Normal rate. Rhythm irregularly irregular. Pulses: Carotid pulses are 2+ on the right side and 2+ on the left side. Radial pulses are 2+ on the right side and 2+ on the left side. Femoral pulses are 2+ on the right side and 2+ on the left side. Popliteal pulses are 0 on the right side and 0 on the left side. Dorsalis pedis pulses are 0 on the right side and 0 on the left side. Posterior tibial pulses are 0 on the right side and 0 on the left side. Heart sounds: Normal heart sounds. No murmur heard. Comments: Well-healed vein harvesting incision is noted the right lower extremity. Pulmonary: Effort: Pulmonary effort is normal. Breath sounds: Examination of the right-lower field reveals decreased breath sounds. Examination ofthe left-lower field reveals decreased breath sounds. Decreased breath sounds present. No wheezing,rhonchi or rales. Abdominal: General: Abdomen is protuberant. Bowel sounds are normal. There is no abdominal bruit. Palpations: Abdomen is soft. Abdomen is not rigid. Tenderness: There is no abdominal tenderness. There is no guarding or rebound. Comments: Limited exam due to body habitus and obesity. Musculoskeletal: General: Normal range of motion. Cervical back: Full passive range of motion without pain, normal range of motion and neck supple. Right foot: Normal capillary refill. Abnormal pulse. Left foot: Normal capillary refill. Abnormal pulse. Feet: Right foot: Skin integrity: Dry skin present. Left foot: Skin integrity: Skin breakdown (Abrasion left fourth toe.) and dry skin present. Skin: General: Skin is warm and dry. Capillary Refill: Capillary refill takes 2 to 3 seconds. Findings: Abrasion (Left fourth toe) present. Nails: There is no clubbing. Comments: Anhidrosis as well as hair loss pattern changes are noted in bilateral feet and lower extremities. Neurological: General: No focal deficit present. Mental Status: He is alert and oriented to person, place, and time. Cranial Nerves: Cranial nerves 2-12 are intact. Sensory: Sensory deficit (Decreased sensation to fine touch bilateral extremities consistent with diabetic neuropathy.) present. Motor: Motor function is intact. Coordination: Coordination is intact. Gait: Gait is intact. Psychiatric: Attention and Perception: Attention and perception normal. Mood and Affect: Mood and affect normal. Speech: Speech normal. Behavior: Behavior normal. Behavior is cooperative. Thought Content: Thought content normal. Cognition and Memory: Cognition and memory normal. Judgment: Judgment normal. Lab Review: The following labs were reviewed and within the chart Bilateral ankle-brachial indices performed on March 17, 2022 indicate noncompressibility of the right ankle ARIELLE with waveform pattern suggesting moderate arterial disease. His left ankle ARIELLE also indicates moderate arterial disease with an ARIELLE of 0.67. Clinical correlation advised. documented in this [id number] Telephone encounter Note* Telephone Encounter - Yanna Minor CNP - 03/08/2022 6:27 AM EDT I have refilled medication, just FYI [id number] Miscellaneous Notes* Telephone Encounter - Yanna Minor CNP - 03/08/2022 6:27 AM EDT I have refilled medication, just FYI documented in this [id number] Evaluation + Plan note* Assessment & Plan Note - Vivien Foreman MD - 02/22/2022 1:21 PM EDTAssociated Problem(s): CAD (coronary artery disease) PA s/p CABG bypass grafting x3 by Dr. Sonam Méndez in August 2015. Following up with cardiology byDr. Healy. Improved symptoms of chest pain that he had earlier. Left heart cath came back with obstructed nonvascularized diagonal branch with potential PCI consideration if anginal symptoms persisted. Continue on aspirin and simvastatin 40 mg. [id number] Evaluation + Plan note* Assessment & Plan Note - Vivien Foreman MD - 02/22/2022 1:21 PM EDTAssociated Problem(s): Type 2 diabetes mellitus with retinopathy of both eyes, with long-term current use of insulin (HCC) A1c 10.6 in September 2021, improved to 7.8 earlier this month. meds: insulin Humalog 5 units with breakfast, 6 units with lunch and 6 units at supper. Lantus 30 units at bedtime which was decreased from 38 units given hypoglycemic episodes in the morning, stopped Trulicity due to cost. Getting continuous glucose monitoring system through [employer]. Has been trying to lose weight Last eye exam: 12/22/21, obtaining records Foot exam: 10/30/21 [id number] Miscellaneous Notes* Assessment & Plan Note - Vivien Foreman MD - 02/22/2022 1:21 PM EDTAssociated Problem(s): CAD (coronary artery disease) PA s/p CABG bypass grafting x3 by Dr. Sonam Méndez in August 2015. Following up with cardiology byDr. Healy. Improved symptoms of chest pain that he had earlier. Left heart cath came back with obstructed nonvascularized diagonal branch with potential PCI consideration if anginal symptoms persisted. Continue on aspirin and simvastatin 40 mg. * Assessment & Plan Note - Vivien Foreman MD - 02/22/2022 1:21 PM EDTAssociated Problem(s): Type 2 diabetes mellitus with retinopathy of both eyes, with long-term current use of insulin (HCC) A1c 10.6 in September 2021, improved to 7.8 earlier this month. meds: insulin Humalog 5 units with breakfast, 6 units with lunch and 6 units at supper. Lantus 30 units at bedtime which was decreased from 38 units given hypoglycemic episodes in the morning, stopped Trulicity due to cost. Getting continuous glucose monitoring system through [employer]. Has been trying to lose weight Last eye exam: 12/22/21, obtaining records Foot exam: 10/30/21 * Assessment & Plan Note - Vivien Foreman MD - 02/22/2022 8:25 AM EDTAssociated Problem(s): 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) Encouraged to call his eye doctor to schedule an appointment. * Assessment & Plan Note - Vivien Foreman MD - 02/22/2022 8:25 AM EDTAssociated Problem(s): Intermittent claudication (HCC) Chronic , has appointment with on 03/11/22 Concern for PAD. Discussed importance of regular physical activity and exercise. Optimizing underlying risk factors as hypertension and diabetes which are improving. * Assessment & Plan Note - Vivien Foreman MD - 02/22/2022 8:24 AM EDTAssociated Problem(s): Postoperative atrial fibrillation (HCC) Persistent A. fib for which she has rate controlled on metoprolol as well as Eliquis. Continue to monitor alongside cardiology. documented in this [id number] Evaluation + Plan note* Assessment & Plan Note - Vivien Foreman MD - 02/22/2022 8:25 AM EDTAssociated Problem(s): 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) Encouraged to call his eye doctor to schedule an appointment. [id number] Evaluation + Plan note* Assessment & Plan Note - Vivien Foreman MD - 02/22/2022 8:25 AM EDTAssociated Problem(s): Intermittent claudication (HCC) Chronic , has appointment with on 03/11/22 Concern for PAD. Discussed importance of regular physical activity and exercise. Optimizing underlying risk factors as hypertension and diabetes which are improving. [id number] Evaluation + Plan note* Assessment & Plan Note - Vivien Foreman MD - 02/22/2022 8:24 AM EDTAssociated Problem(s): Postoperative atrial fibrillation (HCC) Persistent A. fib for which she has rate controlled on metoprolol as well as Eliquis. Continue to monitor alongside cardiology. [id number] History of Present illness Narrative* Vivien Foreman MD - 02/22/2022 8:00 AM EDT Chief Complaint Patient presents with Follow-up 2 mo f/u had testing done getting results. HPI: Andrew Arnold is a 75-year-old gentleman presenting today for routine check. PMH of CAD s/p CABG bypass grafting x3, s/p AVR, postoperative A. 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 Currently his partner is also having heart problems and is worried about her. Was offered a grief therapy but was hesitant to join and thought he can handle it on his own. Sleep is poor since his CABG surgery in 2015. Has lost his daughter in March for complication of diabetes , worried about his 16 yo granddaughter who found her in the house. Currently having to dealing with all her belongings. Receiving therapy through a hospice service. Having a supportive family ith his partner , and his son. denies any SI or HI. PHQ9 score 0 today , patient is doing much better and coping well. HTN: Was previously controlled on lisinopril 10 mg , last visit was borderline uncontrolled. Increased lisinopril to 20 mg and has been feeling better and denies any concerns for CP, SOB, POLLACK, blurry vision , tingling/ numbness in extremities. Chronic A. fib: Diagnosed in January 2021 with echo and Holter monitor work-up, rate controlled at this time and currently controlled on aspirin and Eliquis. Diabetes: Diagnosed in 2000, last A1c followed up in endocrinology was 7.8 on 02/19/22 instead of 10.6 in September 2021. Patient is currently on insulin Humalog 5 units with breakfast, 6 units with lunch and 6 units at supper. Lantus 30 units at bedtime which was decreased from 38 units given hypoglycemic episodes in the morning, stopped Trulicity due to cost. Getting continuous glucose monitoring system through [facility]. Has been trying to lose weight started with [employer] per chart review which seem to help with his blood sugars. Has been monitoring glucose through [facility] and doing better. 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 Chest discomfort: Left-sided chest pain occurs every other day sometimes with minimal exertion or when working on [employer] and sometimes while watching TV. Associated with mild dizziness for few seconds. Denies any associated shortness of breath or radiation to the left shoulder or left neck, no association with any nausea Left heart cath came back with patent graft, obstruction in non vascularized diagonal branch, considering PCI but trying medical management at this time. Echo was also performed on 12/22/2021 showing LVEF of 59%, and moderate aortic stenosis with dilation of aortic root and ascending aorta. Patient is already feeling better and not having chest pain symptoms. Intermittent claudications: Mentioned that for a while now he has been having trouble walking through [place] that he needs to stop given pain in bilateral anterior thighs. Brought it up to his aircraft sales representative Dr. Healy who recommended getting checked for PAD, having an appointment with vascular medicine and ABIs coming up in early March. Past Medical History: Diagnosis Date Aortic valve calcification Arrhythmia Atrial fibrillation (HCC) after CABG CAD (coronary artery disease) 3 Vessel Claudication (HCC) Left lower extremity symptoms Fractures Hypertension Mitral valve annular calcification Myocardial infarction (HCC) 08/02/2015 Non-ST Obesity Oral cancer (HCC) Pilonidal cyst Subdural hematoma (HCC) 2008 minor trauma while on Plavix at the time. Tendonitis of wrist, right TIA (transient ischemic attack) 2007 was put on plavix then had subdural one year later. Vitreous hemorrhage of left eye (HCC) Past Surgical History: Procedure Laterality Date AORTIC VALVE REPLACEMENT CARDIAC CATHETERIZATION CARDIAC CATHETERIZATION N/A 12/25/2021 Procedure: Coronary Angiogram; Surgeon: Adilson Stone MD; Location: [facility]; Service: Cardiovascular CARDIAC CATHETERIZATION N/A 12/25/2021 Procedure: Left Heart Cath w/Grafts; Surgeon: Adilson Stone MD; Location: [facility]; Service: Cardiovascular CARDIAC VALVE REPLACEMENT CORONARY ARTERY BYPASS GRAFT 08/13/2015 3 Vessel/YEUNG to the LAD/SVG to obtuse marginal/SVG to a PDA MOUTH SURGERY 2007 Oral cancer TENDON RELEASE DEQUERVAINS Right 12/26/2018 Procedure: TENDON RELEASE DE QUERVAINS RIGHT; Surgeon: Jenaro Oquendo MD; Location: Main OR; Service: Orthopedic Family History Problem Relation Age of Onset COPD Mother Diabetes Father Stroke Paternal Grandmother Social History Tobacco Use Smoking status: Former Packs/day: 3.00 Years: 12.00 Pack years: 36.00 Types: Cigarettes Quit date: 08/27/1973 Years since quittin.5 Smokeless tobacco: Former Types: Chew Vaping Use Vaping Use: Never used Substance Use Topics Alcohol use: Not Currently Alcohol/week: 0.0 standard drinks Drug use: No Review of Systems Vitals: 02/22/22 0754 BP: 132/70 Pulse: 64 Temp: 98 F (36.7 C) TempSrc: Oral SpO2: 97% Weight: 98.9 kg (218 lb) Height: 5' 7 Estimated body mass index is 34.14 kg/m as calculated from the following: Height as of this encounter: 5' 7. Weight as of this encounter: 98.9 kg (218 lb). Physical Exam Constitutional: General: He is not in acute distress. Appearance: He is not ill-appearing. HENT: Head: Normocephalic and atraumatic. Eyes: Extraocular Movements: Extraocular movements intact. Conjunctiva/sclera: Conjunctivae normal. Pupils: Pupils are equal, round, and reactive to light. Cardiovascular: Rate and Rhythm: Normal rate and regular rhythm. Pulses: Normal pulses. Heart sounds: Normal heart sounds. No murmur heard. No gallop. Pulmonary: Effort: Pulmonary effort is normal. Breath sounds: Normal breath sounds. No wheezing, rhonchi or rales. Chest: Chest wall: No tenderness. Abdominal: General: Abdomen is flat. Bowel sounds are normal. There is no distension. Palpations: Abdomen is soft. There is no mass. Tenderness: There is no abdominal tenderness. There is no right CVA tenderness, left CVA tenderness, guarding or rebound. Musculoskeletal: General: No tenderness. Normal range of motion. Cervical back: Normal range of motion and neck supple. No rigidity. No muscular tenderness. Right lower leg: No edema. Left lower leg: No edema. Lymphadenopathy: Cervical: No cervical adenopathy. Skin: General: Skin is warm. Findings: Lesion (1-2 mm hyperpigmented macules on dorsum of rght hand. ) present. No erythema or rash. Neurological: General: No focal deficit present. Mental Status: He is alert and oriented to person, place, and time. Sensory: No sensory deficit. Motor: No weakness. Gait: Gait normal. Psychiatric: Mood and Affect: Mood normal. Behavior: Behavior normal. Thought Content: Thought content normal. Judgment: Judgment normal. OARRS/NARxCHECK Report Received and Assessed: No data found Date controlled substance agreement signed: No data found Date of last drug screen: No data found Functional Assessment: No data found Tobacco Counseling: Counseling given: Not Answered Patient's Medications New Prescriptions No medications on file Previous Medications ACETAMINOPHEN (TYLENOL) 325 MG TABLET Take 650 mg by mouth every 6 (six) hours as needed for pain (1-2 tablets). APIXABAN (ELIQUIS) 5 MG TAB Take 1 (one) tablet (5 mg total) by mouth 2 (two) times a day . ASCORBIC ACID (VITAMIN C) 500 MG CPER Take 500 mg by mouth every other day . ASPIRIN 81 MG EC TABLET Take 1 tablet (81 mg total) by mouth daily. BLOOD SUGAR DIAGNOSTIC (GLUCOSE BLOOD) STRIPS Dx code E11.9 use to check BG 4x daily. BLOOD SUGAR DIAGNOSTIC (RELION PRIME TEST STRIPS) STRIPS E11.65 Use as directed 4 times per day. BUMETANIDE (BUMEX) 1 MG TABLET Take 0.5 (one-half) tablet (0.5 mg total) by mouth every other day . DOCUSATE SODIUM (COLACE) 100 MG CAPSULE Take 100 mg by mouth 2 (two) times a day as needed . FLASH GLUCOSE SENSOR ([facility] JOHNNY 2 SENSOR) KIT 1 kit by Miscellaneous route every 14 (fourteen) days Use as directed to apply new sensor . INSULIN GLARGINE (LANTUS U-100 INSULIN) 100 UNIT/ML INJECTION Inject 28 (twenty eight) Units under the skin nightly . INSULIN LISPRO (ADMELOG,HUMALOG) 100 UNIT/ML INJECTION USE DIRECTED, APPROXIMATELY 30 UNITS A DAY. . INSULIN SYRINGE-NEEDLE U-100 0.3 ML 31 GAUGE X 5/16 SYRG Use as directed QID . LANCETS MISC Use to check BG QID SolusV2 brand Dx E11.65. LISINOPRIL (PRINIVIL,ZESTRIL) 20 MG TABLET Take 1 (one) tablet (20 mg total) by mouth daily . METOPROLOL SUCCINATE (TOPROL-XL) 25 MG 24 HR TABLET Take 1 (one) tablet (25 mg total) by mouth 2 (two) times a day . PEN NEEDLE, DIABETIC 31 GAUGE X 3/16 NDLE Use as directed 4 times daily. . POTASSIUM CHLORIDE 20 MEQ TBER Take 1 (one) tablet (20 mEq total) by mouth every other day . PSYLLIUM (METAMUCIL) 0.52 GRAM CAPSULE Take 2 capsules by mouth as needed . SIMVASTATIN (ZOCOR) 40 MG TABLET Take 1 (one) tablet (40 mg total) by mouth at bedtime . Modified Medications No medications on file Discontinued Medications No medications on file Health Maintenance Due Topic Date Due Hepatitis C Screening Never done Tetanus: Every 10yrs 03/18/2021 Urine Microalbumin 12/17/2021 Ophthalmology Exam 12/22/2021 Depression Remission Assessment (PHQ9) 12/31/2021 Assessment & Plan Problem List Items Addressed This Visit Endocrine Type 2 diabetes mellitus with retinopathy of both eyes, with long-term current use of insulin ([facility]) A1c 10.6 in September 2021, improved to 7.8 earlier this month. meds: insulin Humalog 5 units with breakfast, 6 units with lunch and 6 units at supper. Lantus 30 units at bedtime which was decreased from 38 units given hypoglycemic episodes in the morning, stopped Trulicity due to cost. Getting continuous glucose monitoring system through [facility]. Has been trying to lose weight Last eye exam: 12/22/21, obtaining records Foot exam: 10/30/21 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) Encouraged to call his eye doctor to schedule an appointment. Cardiovascular and Mediastinum CAD (coronary artery disease) - Primary PA s/p CABG bypass grafting x3 by Dr. Sonam Méndez in August 2015. Following up with cardiology byDr. Healy. Improved symptoms of chest pain that he had earlier. Left heart cath came back with obstructed nonvascularized diagonal branch with potential PCI consideration if anginal symptoms persisted. Continue on aspirin and simvastatin 40 mg. Postoperative atrial fibrillation (HCC) Persistent A. fib for which she has rate controlled on metoprolol as well as Eliquis. Continue to monitor alongside cardiology. Other Intermittent claudication (HCC) Chronic , has appointment with on 03/11/22 Concern for PAD. Discussed importance of regular physical activity and exercise. Optimizing underlying risk factors as hypertension and diabetes which are improving. I spent over 30 mins reviewing patient's chart , HPI and coordicating plan of care. Return in about 4 months (around 06/24/2022) for Annual Exam. VIVIEN FOREMAN MD [facility] [address] [facility] [address] [facility] [id number] Dept: [phone] Over the last 2 weeks, how often have you been bothered by any of the following problems? Little interest or pleasure in doing things Not at all Feeling down, depressed, or hopeless Not at all PHQ-2 Total Score 0 Trouble falling or staying asleep, or sleeping too much Feeling tired or having little energy Poor appetite or overeating Feeling bad about yourself - or that you are a failure or have let yourself or your family down Trouble concentrating on things, such as reading the newspaper or watching television Moving or speaking so slowly that other people could have noticed. Or the opposite - being fidgety or restless that you have been moving around a lot more than usual Thoughts that you would be better off , or hurting yourself in some way PHQ-9 Total Score If you checked off any problems, how difficult have these problems made it for you to do your work,take care of things at home, or get along with other people? Depression Screening 12/16/2020 03/02/2021 06/12/2021 12/10/202102/2202/22/2022 Little interest or pleasure in doing things 2 2 0 1 0 Feeling down, depressed, or hopeless 2 1 3 1 0 PHQ-2 Total Score 4 3 3 2 0 Trouble falling or staying asleep, or sleeping too much 2 2 0 0 - Feeling tired or having little energy 1 1 0 0 - Poor appetite or overeating 0 0 0 0 - Feeling bad about yourself - or that you are a failure or have let yourself or your family down 2 21 2 - Trouble concentrating on things, such as reading the newspaper or watching television 2 2 1 1 - Moving or speaking so slowly that other people could have noticed. Or the opposite - being so fidgety or restless that you have been moving around a lot more than usual 0 0 3 0 - Thoughts that you would be better off , or of hurting yourself in some way 2 0 0 1 - PHQ-9 Total Score 13 10 8 6 - If you checked off any problems, how difficult have these problems made it for you to do your work,take care of things at home, or get along with other people? Somewhat difficult - Somewhat difficult Not difficult at all - Depression Screening 12/16/2020 03/02/2021 06/12/2021 12/10/2021 02/22/2022 Little interest or pleasure in doing things 2 2 0 1 0 Feeling down, depressed, or hopeless 2 1 3 1 0 PHQ-2 Total Score 4 3 3 2 0 Trouble falling or staying asleep, or sleeping too much 2 2 0 0 - Feeling tired or having little energy 1 1 0 0 - Poor appetite or overeating 0 0 0 0 - Feeling bad about yourself - or that you are a failure or have let yourself or your family down 2 21 2 - Trouble concentrating on things, such as reading the newspaper or watching television 2 2 1 1 - Moving or speaking so slowly that other people could have noticed. Or the opposite - being so fidgety or restless that you have been moving around a lot more than usual 0 0 3 0 - Thoughts that you would be better off , or of hurting yourself in some way 2 0 0 1 - PHQ-9 Total Score 13 10 8 6 - If you checked off any problems, how difficult have these problems made it for you to do your work,take care of things at home, or get along with other people? Somewhat difficult - Somewhat difficult Not difficult at all - Depression Screening 12/16/2020 03/02/2021 06/12/2021 12/10/2021 02/22/2022 Little interest or pleasure in doing things 2 2 0 1 0 Feeling down, depressed, or hopeless 2 1 3 1 0 PHQ-2 Total Score 4 3 3 2 0 Trouble falling or staying asleep, or sleeping too much 2 2 0 0 - Feeling tired or having little energy 1 1 0 0 - Poor appetite or overeating 0 0 0 0 - Feeling bad about yourself - or that you are a failure or have let yourself or your family down 2 21 2 - Trouble concentrating on things, such as reading the newspaper or watching television 2 2 1 1 - Moving or speaking so slowly that other people could have noticed. Or the opposite - being so fidgety or restless that you have been moving around a lot more than usual 0 0 3 0 - Thoughts that you would be better off , or of hurting yourself in some way 2 0 0 1 - PHQ-9 Total Score 13 10 8 6 - If you checked off any problems, how difficult have these problems made it for you to do your work,take care of things at home, or get along with other people? Somewhat difficult - Somewhat difficult Not difficult at all - documented in this [id number] History of Present illness Narrative* Radha Hughes CNP - 02/19/2022 8:24 AM EDT Images from the original note were not included. Patient ID: Andrew Arnold is a 76 y.o. male 1945 Subjective: Andrew Arnold presents for follow-up of Type 2 diabetes Patient has had diabetes for 21 years. Diagnosed in 2000 Outpatient Medications Marked as Taking for the 02/19/22 encounter (Office Visit) with Radha Hughes CNP: acetaminophen (TYLENOL) 325 MG tablet, Take 650 mg by mouth every 6 (six) hours as needed for pain (1-2 tablets). apixaban (ELIQUIS) 5 mg Tab, Take 1 (one) tablet (5 mg total) by mouth 2 (two) times a day . ascorbic Acid (VITAMIN C) 500 mg CpER, Take 500 mg by mouth every other day . aspirin 81 MG EC tablet, Take 1 tablet (81 mg total) by mouth daily. bumetanide (BUMEX) 1 MG tablet, Take 0.5 (one-half) tablet (0.5 mg total) by mouth every other day . docusate sodium (COLACE) 100 MG capsule, Take 100 mg by mouth 2 (two) times a day as needed . insulin glargine (Lantus U-100 Insulin) 100 unit/mL injection, Inject 28 (twenty eight) Units underthe skin nightly . insulin lispro (AdmeLOG,HumaLOG) 100 unit/mL injection, USE DIRECTED, APPROXIMATELY 30 UNITS A DAY. . lisinopriL (PRINIVIL,ZESTRIL) 20 MG tablet, Take 1 (one) tablet (20 mg total) by mouth daily . metoprolol succinate (TOPROL-XL) 25 MG 24 hr tablet, Take 1 (one) tablet (25 mg total) by mouth 2 (two) times a day . potassium chloride 20 mEq TbER, Take 1 (one) tablet (20 mEq total) by mouth every other day . simvastatin (ZOCOR) 40 MG tablet, Take 1 (one) tablet (40 mg total) by mouth at bedtime . Review of Systems: Review of Systems Constitutional: Negative for fatigue and unexpected weight change. HENT: Positive for hearing loss. Negative for trouble swallowing. Eyes: Negative for visual disturbance. Respiratory: Negative for cough and shortness of breath. Cardiovascular: Negative for chest pain and leg swelling. Gastrointestinal: Negative for abdominal pain, constipation, diarrhea, nausea and vomiting. Endocrine: Negative for polydipsia, polyphagia and polyuria. Genitourinary: Negative for frequency and urgency. Skin: Negative for wound. Neurological: Positive for weakness (pain with walking). Negative for numbness and headaches. Psychiatric/Behavioral: Negative for agitation and sleep disturbance. The patient is not nervous/anxious. The following portions of the patient's history were reviewed and updated as appropriate: allergies, current medications, past family history, past medical history, past social history, past surgicalhistory and problem list. Objective: BP 136/69 Pulse 63 Wt 98.4 kg (217 lb) BMI 33.99 kg/m Wt Readings from Last 3 Encounters: 02/19/22 98.4 kg (217 lb) 12/25/21 96.6 kg (213 lb) 12/25/21 96.6 kg (213 lb) Physical Exam: General: alert, appears stated age and cooperative Eyes: conjunctivae/corneas clear. PERRL, EOM's intact. Neck: no adenopathy, supple, symmetrical, trachea midline. Thyroid: No thyromegaly appreciated Lung: clear to auscultation bilaterally Heart: regular rate and rhythm, S1, S2 normal, no murmur, click, rub or gallop Extremities: extremities normal, atraumatic, no cyanosis or edema Feet: Dry skin, Bilateral Feet: warm, good capillary refill and normal DP. Monofilament exam Normal, bilateral lower extremities. Neuro: normal without focal findings, mental status, speech normal, alert and oriented x3 and [facility] Laboratory Review: BP 136/69 Pulse 63 Wt 98.4 kg (217 lb) BMI 33.99 kg/m Lab Results Component Value Date HGBA1C 7.8 (H) 02/17/2022 Glucose (mg/dL) Date Value 02/17/2022 123 (H) Creatinine (mg/dL) Date Value 02/17/2022 0.97 05/05/2020 0.94 Lab Results Component Value Date CHOL 130 10/08/2021 TRIG 79 10/08/2021 HDL 47 10/08/2021 LDLCALC 67 10/08/2021 Lab Results Component Value Date TSH 1.99 10/08/2021 Lab Results Component Value Date WBC 6.34 02/17/2022 HGB 12.7 (L) 02/17/2022 HCT 39.3 (L) 02/17/2022 MCV 84.0 02/17/2022 PLT 157 02/17/2022 Date: 02/17/22 *labs reviewed 02/19/22 Hgb A1c: 7.8% Creat: 0.97; eGFR: 80 AST: 24; ALT: 30 K: 4.9 CBC: WBC:6.34; Hgb: 12.7; Hct: 39.3; Plt: 157 10/08/21 Hgb A1c: 10.6% Creat: 1.14; eGFR: 62 AST: 24; ALT: 20 K: 4.8 Tchol: 130; Tri ; HDL: 47 ; LDL: 67 TSH: 1.99 ; FreeT4: 1.1 06/12/21 Hgb A1c: 9.4% Creat: 1.22; eGFR: 57 AST: 17; ALT: 23 K: 4.7 TSH: 1.85 ; FreeT4: 1.1 02/25/21 Hgb A1c: 10.1% Creat: 0.91; eGFR: 82 AST: 21; ALT: 21 K: 4.6 TSH: 1.54 ; FreeT4: 1.2 12/17/20 Hgb A1c: 12.5% Creat: 1.18; eGFR: 60 AST: 13; ALT: 20 K: 4.6 CBC: WBC:6.30; Hgb: 13.4; Hct: 41.1; Plt: 175 Tchol: 124; Tri ; HDL: 56 ; LDL: 56 TSH: 2.05 Microalbumin/creatinine Ratio: 41 05/05/20 Hgb A1c: 8.9% Creat: 0.94; eGFR: >60 K: 4.0 TSH: 2.39 ; FreeT4: 1.10 12/27/19 Hgb A1c: 9.0% Creat: 0.98; eGFR: >60 AST: 14; ALT: 21 K: 4.6 CBC: WBC:7.0; Hgb: 14.0; Hct: 42.7; Plt: 201 Tchol: 133; Tri ; HDL: 52 ; LDL: 70 TSH: 2.72 ; FreeT4: 1.05 02/20/19 Hgb A1c: 8.8% Creat: 1.0; eGFR: >60 AST: 22; ALT: 25 K: 4.1 10/23/2018 Hemoglobin A1c 9.7% Creatinine 1.00, EGFR >60, K4.2 AST 22, ALT 31 Microalbumin/creatinine ratio: 12 TSH 2.03, free T4 0.87 T cholesterol 118, TG 49, HDL 51, LDL 57 CBC: H/H 14.3/42.6, WBC 5.2, platelets 180,000 06/20/18 Hgb A1c: 6.3% Creat: 0.9; eGFR: >60 AST: 25; ALT: 17 K: 4.3 Assessment/Plan: Dx: 1. Type 2 diabetes mellitus with retinopathy of both eyes, with long-term current use of insulin, macular edema presence unspecified, unspecified retinopathy severity (HCC) 2. Primary hypertension 3. Hypercholesterolemia Type 2 diabetes, under fair control Currently taking: No oral hypoglycemic medications Humalog insulin: 5 units at breakfast; 6 units at lunch; 6 units at supper Lantus insulin: 28 units at bedtime Current Hemoglobin A1C= Lab Results Component Value Date HGBA1C 7.8 (H) 02/17/2022 HGBA1C 10.6 (H) 10/08/2021 HGBA1C 9.4 (H) 06/12/2021 Weight trend: has decreased 15 lbs. Current diet: carb controlled, avoiding concentrated sugars Doing much better. Current exercise: none Current monitoring regimen: home blood tests - 4 times daily utilizing [employer] CGM. Download reviewed 02/19/22 Home blood sugar records: Fasting B-220 Pre-lunch B-294 Pre-supper B-258 Bedtime BG: Any episodes of hypoglycemia? Occasionally, typically <1 time weekly. Aware of lows. NOTES: Hgb A1c improved significantly to 7.8% from 10.1% from 12.5% December 2020. Patient currently onQID insulin. Off trulicity due to cost. PLAN: See below Retinopathy: Positive: Background diabetic retinopathy and Laser Treatment Exam within last 12 months: yes Date: Store Administrative Assistant/Lang Interpreter: Other Ophthalmologic Conditions: None known Nephropathy: Negative Creat: 0.97 03/01 Lab Results Component Value Date CREATININE 0.97 02/17/2022 EXTEGFR >60 12/27/2019 EXTEGFRAFAME >60 12/27/2019 Microlbumin/creat ratio: No results found for: EXTMICROALBC Is patient on PATRICIA inhibitor or angiotensin II receptor julia? yes Lisinopril Peripheral Neuropathy: Negative Denies symptoms associated with neuropathy (numbness and/or tingling) Autonomic Neuropathy: Negative Hypoglycemia unawareness. Senses low BG at <100 mg/dl. Other: Hyperlipidemia: Positive Currently taking: simvastatin (Zocor). LFT's WNL Lab Results Component Value Date AST 24 02/17/2022 ALT 30 02/17/2022 Lab Results Component Value Date EXTCHOL 133 12/27/2019 EXTTRIG 56 12/27/2019 EXTHDL 52 12/27/2019 EXTLDLCALC 70 12/27/2019 Hypertension: Positive. Currently taking: bumetanide (Bumex), lisinopril (Prinivil) and metoprolol (Lopressor, Toprol) BP: 136/69 Cardiac: Positive Atrial fibrillation. On eliquis. Experiencing chest pain No . 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 Healy Vascular: Negative History of None Feet: Last foot exam: 03/01 Follows with Podiatry: Yes Professor Of Theater: Dr. Arroyo History of foot ulceration: No History of amputation: No Thyroid: Lab Results Component Value Date TSH 1.99 10/08/2021 Negative Other: from colon cancer March 2017. Had COVID-19 vaccine in [place]. Plan: 1. Rx changes: Adjust medications as below Humalog insulin: 5 units at breakfast; 6 units at lunch; 6 units at supper Lantus insulin: 28 units at bedtime Add 2 units to meal dose with larger/high carb meal Use as directed with Humalog insulin before meals and at bedtime. 151-200: 1 units fast acting insulin 201-250: 2 units fast acting insulin 251-300: 3 units fast acting insulin 301-350: 4 units fast acting insulin 351-400: 5 units fast acting insulin above 400: 6 units fast acting insulin Mr. Arnold would benefit from continued use of SwipeToSpine continuous glucose monitoring system. Patient has had Type 2 diabetes for 21 years. Complications include diabetic neuropathy and CAD Patient is currently managed with: insulin injections Patient has been checking their blood sugar 4 times per day Patient is positive for a history of reoccurring hypoglycemia <50. Patient is predisposed to hypoglycemia, and has had 2 hypoglycemic episodes in the last 7 days. Patient's most recent Hgb A1c was 7.8% on 03/01 Patient's HGb is <6.0% or >8.5% Patient currently takes insulin injections 4 times daily. Patient is negative for a history of hypoglycemic unawareness Patient has inadequate control despite compliance with multiple alterations in insulin doses/medication regimen. 2. Education: Reviewed ABCs of diabetes management (respective goals in parentheses): A1C (7.0-8.0), blood pressure (<130/80), and cholesterol (LDL <100). 3. Compliance at present is estimated to be fair. Efforts to improve compliance (if necessary) willbe directed at increased exercise. Also, will be directed at dietary modifications: Limit starches,carbohydrates and concentrated sugar sources 4. Follow up: 3 months 5. Record blood sugar readings as instructed. Call if BG consistently <70 or >250. [phone] Patient has been checking blood glucoses 4 times daily for the past 90 days. Patient needs to continue checking blood glucoses 4 times daily. Blood glucose readings are used to adjust medication or insulin doses for meals, monitor dietary compliance, and adjust for high or low blood glucoses by patient on a daily basis. Blood glucose readings are reviewed at office visits for adjustment in medication regimen and assistance with dietary management, and other self- management issues including exercise, etc. Prognosis: Good. Duration of need for diabetes testing equipment: Permanent #150 strips/month prescribed. 6. Bring blood sugar meter to follow up appointment. Orders Placed This Encounter Procedures Comprehensive Metabolic Panel Hemoglobin A1c T4, Free TSH Lipid Panel documented in this [id number] History of Present illness Narrative* Hola Arroyo Jr., DPM - 12/23/2021 8:22 AM EDT Nail care Patient is a pleasant 76year-old male who comes in today for nail care. His geriatric status and diabetes is managed by primary including Dr. Foreman, date of last service is June 12, 2021. Comes in today for nail care. Physical Vascular: DP pulses are palpable 2-4. PT pulses are nonpalpable due to edema. +1 foot and ankle edema. Skin is shiny atrophic dysvascular with absence of hair growth. Feet are warm to cool proximal to distal. Nails left foot 65103 and right foot 32389 are elongated thickened mycotic crumbling dystrophic. Neuro: Light touch is fair Babinski's is fair. Musculoskeletal: Can easily wiggle toes not any clicking or catching. 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 -Given his elevated limb loss risk score he does qualify for nail care. Procedure: After timeout consent was performed, sharply debrided and debulk in height and length 10onychomycotic nails with a sharp around nail nippers consistent with a q8 modifier. Follow-up in 3 months documented in this [id number] History of Present illness Narrative* Preston Healy MD - 12/22/2021 9:27 AM EDT Patient seen for abnormal nuclear stress test. Remote coronary bypass grafting and tissue AVR valvereplacement. Chronic persistent atrial fibrillation more shortness of breath weakness this year. Chest discomfort. Recommend left heart catheterization patient agreement with that. Vital signs reviewed pulse irregular lungs are clear Check echo and heart cath. Increase metoprolol XL to twice daily. documented in this [id number] History of Present illness Narrative* Yun Darnell RN - 12/22/2021 9:21 AM EDT [facility] scheduled for Tuesday12-25-21 arrival time of 9:00 a.m. with a procedure time of 11:[address] Healy, the patient is to increase his Metoprolol XL 25 mg to twice daily and have an Echo priorto Heart Cath on Tuesday. Patient notified and new Rx to be sent to the [facility] in [place]. Echo is scheduled for today at 2:15 p.m. * Yun Darnell RN - 12/22/2021 8:43 AM EDT Patient set up for [facility] for an abnormal stress test. Dr Healy to discuss procedure with patient. Labs ordered and consent obtained. Written and verbal instructions given to patient. documented in this [id number] Instructions* Patient Instructions* Yun Darnell RN - 12/22/2021 8:45 AM EDT How to Contact your Care Team: Provider: Dr. Preston Healy MD Silk Screen Layout Drafter: Yun Darnell RN Heart Catheterization Date and Time of your procedure Tuesday12-25-21 at 11:00 a.m. Please arrive at [facility] and check in at the Outpatient Registration by 9:00 a.m. DO NOT eat or drink anything after midnight on 12-24-21. The morning of your procedure you should take your medications with as little water as possible. Bring a list of all medications you take along with dosage and frequency that you take the medications. If your are insulin-dependent diabetic and your arrival time is 6:30 AM, do not take your insulin. If your arrival time is after 6:30AM, you should take only one-half your usual dose of insulin the morning of your procedure. Be sure to get the required blood work done as soon as possible. You will be given a sedative for the procedure and therefore you will not be able to drive home. Please have a ride arranged. Please be advised that occasionally you may experience significant delays for up to several hours due to emergencies and/or unavoidable circumstances. If you have any questions or concerns please contact us at [phone]. documented in this [id number] History of Present illness Narrative* Radha Hughes CNP - 10/12/2021 8:12 AM EDT Images from the original note were not included. Patient ID: Andrew Arnold is a 76 y.o. male 1945 Subjective: Andrew Arnold presents for follow-up of Type 2 diabetes Patient has had diabetes for 20 years. Diagnosed in 2000 Outpatient Medications Marked as Taking for the 10/12/21 encounter (Office Visit) with Radha Her CNP: acetaminophen (TYLENOL) 325 MG tablet, Take 650 mg by mouth every 6 (six) hours as needed for pain (1-2 tablets). apixaban (ELIQUIS) 5 mg Tab, Take 1 (one) tablet (5 mg total) by mouth 2 (two) times a day . ascorbic Acid (VITAMIN C) 500 mg CpER, Take 500 mg by mouth every other day . aspirin 81 MG EC tablet, Take 1 tablet (81 mg total) by mouth daily. blood sugar diagnostic (glucose blood) strips, Dx code E11.9 use to check BG 4x daily. blood sugar diagnostic (RELION PRIME TEST STRIPS) strips, E11.65 Use as directed 4 times per day. bumetanide (BUMEX) 1 MG tablet, Take 0.5 (one-half) tablet (0.5 mg total) by mouth daily . (Patienttaking differently: Take 0.5 mg by mouth every other day .) insulin glargine (Lantus U-100 Insulin) 100 unit/mL injection, Inject 28 (twenty eight) Units underthe skin nightly . insulin lispro (HumaLOG) 100 unit/mL injection, USE DIRECTED, APPROXIMATELY 30 UNITS A DAY. . insulin syringe-needle U-100 0.3 mL 31 x 5/16 Syrg, Use as directed QID. lancets Mis, Use to check BG QID SolusV2 brand Dx E11.65. lisinopriL (PRINIVIL,ZESTRIL) 20 MG tablet, Take 1 (one) tablet (20 mg total) by mouth daily . metoprolol succinate (TOPROL-XL) 25 MG 24 hr tablet, Take 1 (one) tablet (25 mg total) by mouth daily . nystatin (MYCOSTATIN) powder, Apply topically 2 (two) times a day . pen needle, diabetic 31 gauge x 3/16 Ndle, Use as directed 4 times daily. . potassium chloride 20 mEq TbER, Take 1 (one) tablet (20 mEq total) by mouth every other day . psyllium (METAMUCIL) 0.52 gram capsule, Take 2 capsules by mouth as needed . simvastatin (ZOCOR) 20 MG tablet, Take 1 (one) tablet (20 mg total) by mouth at bedtime . Review of Systems: Review of Systems Constitutional: Negative for fatigue and unexpected weight change. HENT: Positive for hearing loss. Negative for trouble swallowing. Eyes: Negative for visual disturbance. Respiratory: Negative for cough and shortness of breath. Cardiovascular: Negative for chest pain and leg swelling. Gastrointestinal: Negative for abdominal pain, constipation, diarrhea, nausea and vomiting. Endocrine: Negative for polydipsia, polyphagia and polyuria. Genitourinary: Negative for frequency and urgency. Skin: Negative for wound. Neurological: Positive for weakness (pain with walking). Negative for numbness and headaches. Psychiatric/Behavioral: Negative for agitation and sleep disturbance. The patient is not nervous/anxious. The following portions of the patient's history were reviewed and updated as appropriate: allergies, current medications, past family history, past medical history, past social history, past surgicalhistory and problem list. Objective: BP 118/73 (BP Location: Left arm, Patient Position: Sitting, BP Cuff Size: Adult) Pulse 80 Ht 5' 7 Wt 105.5 kg (232 lb 8 oz) BMI 36.41 kg/m Wt Readings from Last 3 Encounters: 10/12/21 105.5 kg (232 lb 8 oz) 08/02/21 106.6 kg (235 lb) 06/19/21 106.1 kg (234 lb) Physical Exam: General: alert, appears stated age and cooperative Eyes: conjunctivae/corneas clear. PERRL, EOM's intact. Neck: no adenopathy, supple, symmetrical, trachea midline. Thyroid: No thyromegaly appreciated Lung: clear to auscultation bilaterally Heart: regular rate and rhythm, S1, S2 normal, no murmur, click, rub or gallop Extremities: extremities normal, atraumatic, no cyanosis or edema Feet: Dry skin, Bilateral Feet: warm, good capillary refill and normal DP. Monofilament exam Normal, bilateral lower extremities. Neuro: normal without focal findings, mental status, speech normal, alert and oriented x3 and [facility] Laboratory Review: BP 118/73 (BP Location: Left arm, Patient Position: Sitting, BP Cuff Size: Adult) Pulse 80 Ht 5' 7 Wt 105.5 kg (232 lb 8 oz) BMI 36.41 kg/m Lab Results Component Value Date HGBA1C 10.6 (H) 10/08/2021 Glucose (mg/dL) Date Value 10/08/2021 162 (H) Creatinine (mg/dL) Date Value 10/08/2021 1.14 05/05/2020 0.94 Lab Results Component Value Date CHOL 130 10/08/2021 TRIG 79 10/08/2021 HDL 47 10/08/2021 LDLCALC 67 10/08/2021 Lab Results Component Value Date TSH 1.99 10/08/2021 Lab Results Component Value Date WBC 7.38 08/02/2021 HGB 13.2 (L) 08/02/2021 HCT 39.5 (L) 08/02/2021 MCV 82.0 08/02/2021 PLT 188 08/02/2021 Date: 10/08/21 *labs reviewed 10/12/21 Hgb A1c: 10.6% Creat: 1.14; eGFR: 62 AST: 24; ALT: 20 K: 4.8 Tchol: 130; Tri ; HDL: 47 ; LDL: 67 TSH: 1.99 ; FreeT4: 1.1 06/12/21 Hgb A1c: 9.4% Creat: 1.22; eGFR: 57 AST: 17; ALT: 23 K: 4.7 TSH: 1.85 ; FreeT4: 1.1 02/25/21 Hgb A1c: 10.1% Creat: 0.91; eGFR: 82 AST: 21; ALT: 21 K: 4.6 TSH: 1.54 ; FreeT4: 1.2 12/17/20 Hgb A1c: 12.5% Creat: 1.18; eGFR: 60 AST: 13; ALT: 20 K: 4.6 CBC: WBC:6.30; Hgb: 13.4; Hct: 41.1; Plt: 175 Tchol: 124; Tri ; HDL: 56 ; LDL: 56 TSH: 2.05 Microalbumin/creatinine Ratio: 41 05/05/20 Hgb A1c: 8.9% Creat: 0.94; eGFR: >60 K: 4.0 TSH: 2.39 ; FreeT4: 1.10 12/27/19 Hgb A1c: 9.0% Creat: 0.98; eGFR: >60 AST: 14; ALT: 21 K: 4.6 CBC: WBC:7.0; Hgb: 14.0; Hct: 42.7; Plt: 201 Tchol: 133; Tri ; HDL: 52 ; LDL: 70 TSH: 2.72 ; FreeT4: 1.05 02/20/19 Hgb A1c: 8.8% Creat: 1.0; eGFR: >60 AST: 22; ALT: 25 K: 4.1 10/23/2018 Hemoglobin A1c 9.7% Creatinine 1.00, EGFR >60, K4.2 AST 22, ALT 31 Microalbumin/creatinine ratio: 12 TSH 2.03, free T4 0.87 T cholesterol 118, TG 49, HDL 51, LDL 57 CBC: H/H 14.3/42.6, WBC 5.2, platelets 180,000 06/20/18 Hgb A1c: 6.3% Creat: 0.9; eGFR: >60 AST: 25; ALT: 17 K: 4.3 Assessment/Plan: Dx: 1. Type 2 diabetes mellitus with retinopathy of both eyes, with long-term current use of insulin, macular edema presence unspecified, unspecified retinopathy severity (HCC) 2. Primary hypertension Type 2 diabetes, under fair control Currently taking: No oral hypoglycemic medications Humalog insulin: 5 units at breakfast; 6 units at lunch; 6 units at supper Lantus insulin: 38 units at bedtime Stopped trulicity 1 month ago September 2021. Started [employer] 10/05/21. He has already lost 3 lbs and BG levels have improved significantly. Current Hemoglobin A1C= Lab Results Component Value Date HGBA1C 10.6 (H) 10/08/2021 HGBA1C 9.4 (H) 06/12/2021 HGBA1C 10.1 (H) 02/25/2021 Weight trend: has decreased 1 lbs. Current diet: carb controlled, avoiding concentrated sugars Doing much better. Current exercise: none Current monitoring regimen: home blood tests - 4 times daily Home blood sugar records: Fasting B-220 Pre-lunch B-294 Pre-supper B-258 Bedtime BG: Any episodes of hypoglycemia? Occasionally, typically <1 time weekly. Aware of lows. NOTES: Hgb A1c improved significantly to 10.1% from 12.5% December 2020. Patient currently on QID insulin. He would benefit from slight increase in insulin doses and increase in Trulicity to aid in dietary modifications, weight loss and glycemic control. PLAN: See below Retinopathy: Positive: Background diabetic retinopathy and Laser Treatment Exam within last 12 months: yes Date: Store Administrative Assistant/Lang Interpreter: Other Ophthalmologic Conditions: None known Nephropathy: Negative Creat: 1.14 09/29 Lab Results Component Value Date CREATININE 1.14 10/08/2021 EXTEGFR >60 12/27/2019 EXTEGFRAFAME >60 12/27/2019 Microlbumin/creat ratio: No results found for: EXTMICROALBC Is patient on PATRICIA inhibitor or angiotensin II receptor julia? yes Lisinopril Peripheral Neuropathy: Negative Denies symptoms associated with neuropathy (numbness and/or tingling) Autonomic Neuropathy: Negative Hypoglycemia unawareness. Senses low BG at <100 mg/dl. Other: Hyperlipidemia: Positive Currently taking: simvastatin (Zocor). LFT's WNL Lab Results Component Value Date AST 24 10/08/2021 ALT 20 10/08/2021 Lab Results Component Value Date EXTCHOL 133 12/27/2019 EXTTRIG 56 12/27/2019 EXTHDL 52 12/27/2019 EXTLDLCALC 70 12/27/2019 Hypertension: Positive. Currently taking: bumetanide (Bumex), lisinopril (Prinivil) and metoprolol (Lopressor, Toprol) BP: 118/73 Cardiac: Positive Atrial fibrillation. On eliquis. Experiencing chest pain No . 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 Heayl Vascular: Negative History of None Feet: Last foot exam: 05/09/20 saw podiatry. Follows with Podiatry: Yes Professor Of Theater: Dr. Arroyo History of foot ulceration: No History of amputation: No Thyroid: Lab Results Component Value Date TSH 1.99 10/08/2021 Negative Other: from colon cancer March 2017. Had COVID-19 vaccine in [place]. Plan: 1. Rx changes: Adjust medications as below Humalog insulin: 5 units at breakfast; 6 units at lunch; 6 units at supper Lantus insulin: 30 units at bedtime Decrease Lantus due to hypoglycemia in the morning. Call if continues to have hypoglycemia. Use as directed with Humalog insulin before meals and at bedtime. 151-200: 1 units fast acting insulin 201-250: 2 units fast acting insulin 251-300: 3 units fast acting insulin 301-350: 4 units fast acting insulin 351-400: 5 units fast acting insulin above 400: 6 units fast acting [facility] Mr. Arnold would benefit from SwipeToSpine continuous glucose monitoring system. Patient has had Type 2 diabetes for 21 years. Complications include diabetic neuropathy and CAD Patient is currently managed with: insulin injections Patient has been checking their blood sugar 4 times per day Patient is positive for a history of reoccurring hypoglycemia <50. Patient is predisposed to hypoglycemia, and has had 2 hypoglycemic episodes in the last 7 days. Patient's most recent Hgb A1c was 10.6% on 09/29 Patient's HGb is <6.0% or >8.5% Patient currently takes insulin injections 4 times daily. Patient is negative for a history of hypoglycemic unawareness Patient has inadequate control despite compliance with multiple alterations in insulin doses/medication regimen. 2. Education: Reviewed ABCs of diabetes management (respective goals in parentheses): A1C (7.0-8.0), blood pressure (<130/80), and cholesterol (LDL <100). 3. Compliance at present is estimated to be fair. Efforts to improve compliance (if necessary) willbe directed at increased exercise. Also, will be directed at dietary modifications: Limit starches,carbohydrates and concentrated sugar sources 4. Follow up: 3 months 5. Record blood sugar readings as instructed. Call if BG consistently <70 or >250. [phone] Patient has been checking blood glucoses 4 times daily for the past 90 days. Patient needs to continue checking blood glucoses 4 times daily. Blood glucose readings are used to adjust medication or insulin doses for meals, monitor dietary compliance, and adjust for high or low blood glucoses by patient on a daily basis. Blood glucose readings are reviewed at office visits for adjustment in medication regimen and assistance with dietary management, and other self- management issues including exercise, etc. Prognosis: Good. Duration of need for diabetes testing equipment: Permanent #150 strips/month prescribed. 6. Bring blood sugar meter to follow up appointment. Orders Placed This Encounter Procedures Comprehensive Metabolic Panel Hemoglobin A1c CBC and Differential documented in this [id number] History of Present illness Narrative* Preston Healy MD - 06/19/2021 8:58 AM EST Telephone Visit Via Phone Call [facility] [address] [facility] [address] [facility] [id number] Telephone Visit [facility] 06/19/2021 Preston Healy MD Provider Location: Patient Location Construction Manager: None Patient Location: Patient's Home Patient: Andrew Arnold Date of : 1945 (76 y.o. male) PCP: Vivien Foreman MD I discussed risks, benefits and alternatives of a telephone visit telemedicine consultation with the patient (and any accompanying persons) including the risks that the patient's personal health details and medical records will be discussed over real-time, synchronous, interactive audio technology,the visit will not be recorded without the express consent of both the provider and the patient, and that there are inherent diagnostic limitations compared to [id number] evaluations. We elected toproceed with the telephone visit telemedicine consultation. HPI Telephone visit today. Due to patient having cough and cold symptoms. No fever no chills. Precaution. Cardiac green patient doing well denies any chest pain denies any lightheadedness or any significantshortness of breath continues to use elliptical 20 minutes a day he is happy with his exercise capacity. Does have persistent atrial fibrillation first diagnosed in January 2021 with echo and Holter monitor work-up at that time. With his essentially asymptomatic status with his rate controlled A. fib recommended long-term oral anticoagulation. We had discussed consideration of cardioversion but withasymptomatic status and severely enlarged left atrium very likely that sinus rhythm would not be sustained. Otherwise history of coronary bypass grafting and tissue aortic valve Plan no change medications we will see back in 5 months. Tolerating the aspirin and Eliquis. Recentlaboratory reviewed. Creatinine 1.22. History of diabetes No changes today. The following portions of the patient's history were reviewed and updated as appropriate: He has a past medical history of Aortic valve calcification, Arrhythmia, Atrial fibrillation (HCC), CAD (coronary artery disease), Claudication (HCC), Fractures, Hypertension, Mitral valve annular calcification, Myocardial infarction (HCC) (08/02/2015), Obesity, Oral cancer (HCC), Pilonidal cyst, Subdural hematoma (HCC) (2008), Tendonitis of wrist, right, TIA (transient ischemic attack) (2007), and Vitreous hemorrhage of left eye (HCC). He has a past surgical history that includes Coronary artery bypass graft (08/13/2015); Mouth surgery (2007); Aortic valve replacement; Cardiac valve replacement; Cardiac catheterization; and Tendon Release [employer] (Right, 12/26/2018).. Review of Systems Patient's Medications New Prescriptions No medications on file Previous Medications ACETAMINOPHEN (TYLENOL) 325 MG TABLET Take 650 mg by mouth every 6 (six) hours as needed for pain (1-2 tablets). APIXABAN (ELIQUIS) 5 MG TAB Take 1 (one) tablet (5 mg total) by mouth 2 (two) times a day . ASCORBIC ACID (VITAMIN C) 500 MG CPER Take 500 mg by mouth every other day . ASPIRIN 81 MG EC TABLET Take 1 tablet (81 mg total) by mouth daily. BLOOD SUGAR DIAGNOSTIC (GLUCOSE BLOOD) STRIPS Dx code E11.9 use to check BG 4x daily. BLOOD SUGAR DIAGNOSTIC (RELION PRIME TEST STRIPS) STRIPS E11.65 Use as directed 4 times per day. BUMETANIDE (BUMEX) 1 MG TABLET Take 0.5 (one-half) tablet (0.5 mg total) by mouth daily . DOCUSATE SODIUM (COLACE) 100 MG CAPSULE Take 100 mg by mouth 2 (two) times a day as needed . DULAGLUTIDE (TRULICITY) 1.5 MG/0.5 ML PEN Inject 0.5 mL (1.5 mg total) under the skin once a week . INSULIN GLARGINE (LANTUS U-100 INSULIN) 100 UNIT/ML INJECTION Inject 28 (twenty eight) Units under the skin nightly . INSULIN LISPRO (HUMALOG) 100 UNIT/ML INJECTION USE DIRECTED, APPROXIMATELY 30 UNITS A DAY. . INSULIN SYRINGE-NEEDLE U-100 0.3 ML 31 X 5/16 SYRG Use as directed QID. LANCETS MISC Use to check BG QID SolusV2 brand Dx E11.65. LISINOPRIL (PRINIVIL,ZESTRIL) 20 MG TABLET Take 1 (one) tablet (20 mg total) by mouth daily . METOPROLOL SUCCINATE (TOPROL-XL) 25 MG 24 HR TABLET Take 1 (one) tablet (25 mg total) by mouth daily . PEN NEEDLE, DIABETIC 31 GAUGE X 3/16 NDLE Use as directed 4 times daily. . POTASSIUM CHLORIDE 20 MEQ TBER Take 1 (one) tablet (20 mEq total) by mouth every other day . PSYLLIUM (METAMUCIL) 0.52 GRAM CAPSULE Take 2 capsules by mouth as needed . SIMVASTATIN (ZOCOR) 20 MG TABLET Take 1 (one) tablet (20 mg total) by mouth at bedtime . Modified Medications No medications on file Discontinued Medications No medications on file Assessment/Plan: Diagnoses and all orders for this visit: Persistent atrial fibrillation (HCC) Coronary 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, unspecified vessel or lesion type I have spent 21 minutes with the patient reviewing the HPI and Plan of Care. * Tianna Conn MA - 06/19/2021 8:26 AM EST Review of Systems Constitutional: Negative for malaise/fatigue. Cardiovascular: Negative for chest pain, dyspnea on exertion, leg swelling and palpitations. Neurological: Negative for dizziness. documented in this [id number] Instructions* Patient Instructions* Tianna Conn MA - 06/19/2021 8:22 AM EST How to Contact your Care Team: Provider: Dr. Preston Healy MD Silk Screen Layout Drafter: Yun Darnell RN REFILLS: When in need for refills please call your care team or the office at [phone]. Please include medication name, pharmacy name, and specify 30-day or 90-day supply. Please check with your pharmacy within 24 hours of request for your refill. You must follow up as directed to continue current refills. Thank you! documented in this [id number] History of Present illness Narrative* Radha Hughes CNP - 06/15/2021 8:54 AM EST Images from the original note were not included. Patient ID: Andrew Arnold is a 76 y.o. male 1945 Subjective: Andrew Arnold presents for follow-up of Type 2 diabetes Patient has had diabetes for 20 years. Diagnosed in 2000 Outpatient Medications Marked as Taking for the 06/15/21 encounter (Office Visit) with Radha Hughes CNP: acetaminophen (TYLENOL) 325 MG tablet, Take 650 mg by mouth every 6 (six) hours as needed for pain (1-2 tablets). apixaban (ELIQUIS) 5 mg Tab, Take 1 (one) tablet (5 mg total) by mouth 2 (two) times a day . ascorbic Acid (VITAMIN C) 500 mg CpER, Take 500 mg by mouth every other day . aspirin 81 MG EC tablet, Take 1 tablet (81 mg total) by mouth daily. blood sugar diagnostic (glucose blood) strips, Dx code E11.9 use to check BG 4x daily. blood sugar diagnostic (RELION PRIME TEST STRIPS) strips, E11.65 Use as directed 4 times per day. bumetanide (BUMEX) 1 MG tablet, Take 0.5 (one-half) tablet (0.5 mg total) by mouth daily . (Patienttaking differently: Take 0.5 mg by mouth every other day .) docusate sodium (COLACE) 100 MG capsule, Take 100 mg by mouth 2 (two) times a day as needed . dulaglutide (Trulicity) 1.5 mg/0.5 mL Pen, Inject 0.5 mL (1.5 mg total) under the skin once a week . insulin glargine (Lantus U-100 Insulin) 100 unit/mL injection, Inject 28 (twenty eight) Units underthe skin nightly . insulin lispro (HumaLOG) 100 unit/mL injection, USE DIRECTED, APPROXIMATELY 30 UNITS A DAY. . insulin syringe-needle U-100 0.3 mL 31 x 5/16 Syrg, Use as directed QID. lancets Misc, Use to check BG QID SolusV2 brand Dx E11.65. lisinopriL (PRINIVIL,ZESTRIL) 20 MG tablet, Take 1 (one) tablet (20 mg total) by mouth daily . metoprolol succinate (TOPROL-XL) 25 MG 24 hr tablet, Take 1 (one) tablet (25 mg total) by mouth daily . pen needle, diabetic 31 gauge x 3/16 Ndle, Use as directed 4 times daily. . potassium chloride 20 mEq TbER, Take 1 (one) tablet (20 mEq total) by mouth every other day . psyllium (METAMUCIL) 0.52 gram capsule, Take 2 capsules by mouth as needed . simvastatin (ZOCOR) 20 MG tablet, Take 1 (one) tablet (20 mg total) by mouth at bedtime . [DISCONTINUED] insulin syr/ndl U100 half jenaro 0.3 mL 31 gauge x 5/16 Syrg, Diag code E11.319 Use 4times daily . Review of Systems: Review of Systems Constitutional: Negative for fatigue and unexpected weight change. HENT: Positive for hearing loss. Negative for trouble swallowing. Eyes: Negative for visual disturbance. Respiratory: Negative for cough and shortness of breath. Cardiovascular: Negative for chest pain and leg swelling. Gastrointestinal: Negative for abdominal pain, constipation, diarrhea, nausea and vomiting. Endocrine: Negative for polydipsia, polyphagia and polyuria. Genitourinary: Negative for frequency and urgency. Skin: Negative for wound. Neurological: Positive for weakness (pain with walking). Negative for numbness and headaches. Psychiatric/Behavioral: Negative for agitation and sleep disturbance. The patient is not nervous/anxious. The following portions of the patient's history were reviewed and updated as appropriate: allergies, current medications, past family history, past medical history, past social history, past surgicalhistory and problem list. Objective: BP 128/78 Pulse 91 Wt 106.5 kg (234 lb 14.4 oz) BMI 36.79 kg/m Wt Readings from Last 3 Encounters: 06/15/21 106.5 kg (234 lb 14.4 oz) 06/12/21 106.4 kg (234 lb 9.6 oz) 03/02/21 104.8 kg (231 lb) Physical Exam: General: alert, appears stated age and cooperative Eyes: conjunctivae/corneas clear. PERRL, EOM's intact. Neck: no adenopathy, supple, symmetrical, trachea midline. Thyroid: No thyromegaly appreciated Lung: clear to auscultation bilaterally Heart: regular rate and rhythm, S1, S2 normal, no murmur, click, rub or gallop Extremities: extremities normal, atraumatic, no cyanosis or edema Feet: Dry skin, Bilateral Feet: warm, good capillary refill and normal DP. Monofilament exam Normal, bilateral lower extremities. Neuro: normal without focal findings, mental status, speech normal, alert and oriented x3 and SIERRA Laboratory Review: BP 128/78 Pulse 91 Wt 106.5 kg (234 lb 14.4 oz) BMI 36.79 kg/m Lab Results Component Value Date HGBA1C 9.4 (H) 06/12/2021 Glucose (mg/dL) Date Value 06/12/2021 160 (H) Creatinine (mg/dL) Date Value 06/12/2021 1.22 05/05/2020 0.94 Lab Results Component Value Date CHOL 124 12/17/2020 TRIG 60 12/17/2020 HDL 56 12/17/2020 LDLCALC 56 12/17/2020 Lab Results Component Value Date TSH 1.85 06/12/2021 Lab Results Component Value Date WBC 6.30 12/17/2020 HGB 13.4 (L) 12/17/2020 HCT 41.1 12/17/2020 MCV 82.4 12/17/2020 PLT 175 12/17/2020 Date: 06/12/21 *labs reviewed 06/15/21 Hgb A1c: 9.4% Creat: 1.22; eGFR: 57 AST: 17; ALT: 23 K: 4.7 TSH: 1.85 ; FreeT4: 1.1 02/25/21 Hgb A1c: 10.1% Creat: 0.91; eGFR: 82 AST: 21; ALT: 21 K: 4.6 TSH: 1.54 ; FreeT4: 1.2 12/17/20 Hgb A1c: 12.5% Creat: 1.18; eGFR: 60 AST: 13; ALT: 20 K: 4.6 CBC: WBC:6.30; Hgb: 13.4; Hct: 41.1; Plt: 175 Tchol: 124; Tri ; HDL: 56 ; LDL: 56 TSH: 2.05 Microalbumin/creatinine Ratio: 41 05/05/20 Hgb A1c: 8.9% Creat: 0.94; eGFR: >60 K: 4.0 TSH: 2.39 ; FreeT4: 1.10 12/27/19 Hgb A1c: 9.0% Creat: 0.98; eGFR: >60 AST: 14; ALT: 21 K: 4.6 CBC: WBC:7.0; Hgb: 14.0; Hct: 42.7; Plt: 201 Tchol: 133; Tri ; HDL: 52 ; LDL: 70 TSH: 2.72 ; FreeT4: 1.05 02/20/19 Hgb A1c: 8.8% Creat: 1.0; eGFR: >60 AST: 22; ALT: 25 K: 4.1 10/23/2018 Hemoglobin A1c 9.7% Creatinine 1.00, EGFR >60, K4.2 AST 22, ALT 31 Microalbumin/creatinine ratio: 12 TSH 2.03, free T4 0.87 T cholesterol 118, TG 49, HDL 51, LDL 57 CBC: H/H 14.3/42.6, WBC 5.2, platelets 180,000 06/20/18 Hgb A1c: 6.3% Creat: 0.9; eGFR: >60 AST: 25; ALT: 17 K: 4.3 Assessment/Plan: Dx: 1. Type 2 diabetes mellitus with retinopathy of both eyes, with long-term current use of insulin, macular edema presence unspecified, unspecified retinopathy severity (HCC) 2. Primary hypertension 3. Hypercholesterolemia Type 2 diabetes, under fair control Currently taking: No oral hypoglycemic medications Humalog insulin: 5-10 units at breakfast; 6-8 units at lunch; 6-9 units at supper Lantus insulin: 28 units at bedtime Trulicity 1.5 mg weekly Current Hemoglobin A1C= Lab Results Component Value Date HGBA1C 9.4 (H) 06/12/2021 HGBA1C 10.1 (H) 02/25/2021 HGBA1C 12.5 (H) 12/17/2020 Weight trend: has decreased 1 lbs. Current diet: carb controlled, avoiding concentrated sugars Doing much better. Current exercise: none Current monitoring regimen: home blood tests - 4 times daily Home blood sugar records: Fasting B-407 Pre-lunch B-294 Pre-supper B Bedtime BG: Any episodes of hypoglycemia? Occasionally, typically <1 time weekly. Aware of lows. NOTES: Hgb A1c improved significantly to 10.1% from 12.5% December 2020. Patient currently on QID insulin. He would benefit from slight increase in insulin doses and increase in Trulicity to aid in dietary modifications, weight loss and glycemic control. PLAN: See below Retinopathy: Positive: Background diabetic retinopathy and Laser Treatment Exam within last 12 months: yes Date: 12/31/19 Store Administrative Assistant/Lang Interpreter: Other Ophthalmologic Conditions: None known Nephropathy: Negative Creat: 0.91 02/28 Lab Results Component Value Date CREATININE 1.22 06/12/2021 EXTEGFR >60 12/27/2019 EXTEGFRAFAME >60 12/27/2019 Microlbumin/creat ratio: No results found for: EXTMICROALBC Is patient on PATRICIA inhibitor or angiotensin II receptor julia? yes Lisinopril Peripheral Neuropathy: Negative Denies symptoms associated with neuropathy (numbness and/or tingling) Autonomic Neuropathy: Negative Hypoglycemia unawareness. Senses low BG at <100 mg/dl. Other: Hyperlipidemia: Positive Currently taking: simvastatin (Zocor). LFT's WNL Lab Results Component Value Date AST 17 06/12/2021 ALT 23 06/12/2021 Lab Results Component Value Date EXTCHOL 133 12/27/2019 EXTTRIG 56 12/27/2019 EXTHDL 52 12/27/2019 EXTLDLCALC 70 12/27/2019 Hypertension: Positive. Currently taking: bumetanide (Bumex), lisinopril (Prinivil) and metoprolol (Lopressor, Toprol) BP: 128/78 Cardiac: Positive Atrial fibrillation. On eliquis. Experiencing chest pain No . 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 Healy Vascular: Negative History of None Feet: Last foot exam: 05/09/20 saw podiatry. Follows with Podiatry: Yes Professor Of Theater: Dr. Cruz History of foot ulceration: No History of amputation: No Thyroid: Lab Results Component Value Date TSH 1.85 06/12/2021 Negative Other: from colon cancer March 2017. Had COVID-19 vaccine in [place]. Plan: 1. Rx changes: Continue current regimen Humalog insulin: 5-10 units at breakfast; 6-10 units at lunch; 6-10 units at supper Lantus insulin: 28 units at bedtime Use as directed with Humalog insulin before meals and at bedtime. 151-200: 1 units fast acting insulin 201-250: 2 units fast acting insulin 251-300: 3 units fast acting insulin 301-350: 4 units fast acting insulin 351-400: 5 units fast acting insulin above 400: 6 units fast acting insulin Trulicity 1.5 mg weekly 2. Education: Reviewed ABCs of diabetes management (respective goals in parentheses): A1C (7.0-8.0), blood pressure (<130/80), and cholesterol (LDL <100). 3. Compliance at present is estimated to be fair. Efforts to improve compliance (if necessary) willbe directed at increased exercise. Also, will be directed at dietary modifications: Limit starches,carbohydrates and concentrated sugar sources 4. Follow up: 3 months 5. Record blood sugar readings as instructed. Call if BG consistently <70 or >250. [phone] Patient has been checking blood glucoses 4 times daily for the past 90 days. Patient needs to continue checking blood glucoses 4 times daily. Blood glucose readings are used to adjust medication or insulin doses for meals, monitor dietary compliance, and adjust for high or low blood glucoses by patient on a daily basis. Blood glucose readings are reviewed at office visits for adjustment in medication regimen and assistance with dietary management, and other self- management issues including exercise, etc. Prognosis: Good. Duration of need for diabetes testing equipment: Permanent #150 strips/month prescribed. 6. Bring blood sugar meter to follow up appointment. Orders Placed This Encounter Procedures Comprehensive Metabolic Panel Hemoglobin A1c Lipid Panel TSH T4, Free documented in this [id number] Miscellaneous Notes* Assessment & Plan Note - Vivien Foreman MD - 06/12/2021 10:32 AM EST Associated Problem(s): Anxiety and depression PHQ 9 Score 8 MILLER 7 Score 15 Grieving appropriately , receiving counseling at this time , not interested in medications. Will continue to monitor and provide support whenever needed. documented in this [id number] Instructions* Patient Instructions* Vivien Foreman MD - 06/12/2021 10:12 AM EST STEADI Low Risk Patient Instructions: Your Falls Screening today shows that you are at low risk for falls. To further protect yourself from falls and maintain your independence, we recommend: 1. Read through the brochure, What You Can Do to Prevent Falls (from [facility]). 2. Go through the brochure, Check for Safety: A Home Fall Prevention Checklist for Older Adults (from [facility]), and make changes as recommended. 3. Join a community falls prevention program: Stepping On, a 7-week evidence based program that teaches balance exercises and fall prevention strategies Gaetano Chi for older adults, group exercise that teaches Gaetano Chi forms that reduce fall risk (weight shifting, postural alignment and control, and coordinated movements of the arms, legs, head, and trunk) Matter of Balance, an evidence based program designed to reduce the fear of falling and increase activity levels of older adults OR an exercise class for strength and balance. 4. Take your Vitamin D with or without Calcium, as determined by your healthcare provider. 5. Get your vision and hearing checked annually. Falls At Home Each year, thousands of older Americans fall at home. Many of them are seriously injured, and some are disabled. In 2011, nearly 23,000 people over age 65 and 2.4 million were treated in emergency departments because of falls. Falls are often due to hazards that are easy to overlook but easy to fix. This checklist will help you find and fix those hazards in your home. The checklist asks about hazards found in each room of your home. For each hazard, the checklist tells you how to fix the problem. At the end of the checklist, you ll find other tips for preventing falls. FLOORS: Look at the floor in each room. Q: When you walk through a room, do you have to walk around furniture? A. Ask someone to move the furniture so your path is clear Q: Do you have throw rugs on the floor? A. Remove the rugs or use double-sided tape or a non-slip backing so the rugs won t slip. Q: Are there papers, books, towels, shoes, magazines, boxes, blankets, or other objects on the floor? A.first line supervisor things that are on the floor. Always keep objects off the floor. Q: Do you have to walk over or around wires or cords (like lamp, telephone, or extension cords)? A. Coil or tape cords and wires next to the wall so you can t trip over them. If needed, have an plant electrician put in another outlet. STAIRS AND STEPS: Look at the stairs you use both inside and outside your home. Q: Are there papers, shoes, books, or other objects on the stairs? A. first line supervisor things on the stairs. Always keep objects off stairs. Q: Are some steps broken or uneven? A. Fix loose or uneven steps. Q: Are you missing a light over the stairway? A. Have an plant electrician put in an overhead light at the top and bottom of the stairs. Q: Do you have only one light switch for your stairs (only at the top or at the bottom of the stairs)? A. Have an plant electrician put in a light switch at the top and bottom of the stairs. You can get lightswitches that glow. Q: Has the stairway light bulb burned out? A. Have a friend or family member change the light bulb. Q: Is the carpet on the steps loose or torn? A. Make sure the carpet is firmly attached to every step, or remove the carpet and attach non-slip rubber treads to the stairs. Q: Are the handrails loose or broken? Is there a handrail on only one side of the stairs? A. Fix loose handrails or put in new ones. Make sure handrails are on both sides of the stairs and are as long as the stairs. KITCHEN: Look at your kitchen and eating area. Q: Are the things you use often on high shelves? A. Move items in your cabinets. Keep things you use often on the lower shelves (about waist level). Q: Is your step stool unsteady? A. If you must use a step stool, get one with a bar to hold on to. Never use a chair as a step stool. BATHROOMS: Look at all your bathrooms. Q: Is the tub or shower floor slippery? A. Put a non-slip rubber mat or self-stick strips on the floor of the tub or shower. Q: Do you need some support when you get in and out of the tub or up from the toilet? A. Have grab bars put in next to and inside the tub and next to the toilet. BEDROOMS: Look at all your bedrooms. Q: Is the light near the bed hard to reach? A. Place a lamp close to the bed where it s easy to reach. Q: Is the path from your bed to the bathroom dark? A. Put in a night-light so you can see where you re walking. Some night-lights go on by themselves after dark. Other Things You Can Do to Prevent Falls Do exercises that improve your balance and make your legs stronger. Exercise also helps you feel better and more confident. Have your doctor or pharmacist look at all the medicines you take, even qfbi-ylp-qgqhpeb medicines.Some medicines can make you sleepy or dizzy. Have your eyes checked by an eye doctor at least once a year and update your glasses. Get up slowly after you sit or lie down. Wear shoes both inside and outside the house. Avoid going barefoot or wearing slippers. Improve the lighting in your home. Put in brighter light bulbs. Florescent bulbs are bright and cost less to use. It s safest to have uniform lighting in a room. Add lighting to dark areas. Hang lightweight curtains or shades to reduce glare. [place] a contrasting color on the top edge of all steps so you can see the stairs better. For example, use a light color paint on dark wood. To access this brochure online, please visit the CDC website at http://www.cdc.gov/steadi/pdf/check_for_safety_brochure-a.pdf Chair Rise Exercise What it does: Strengthens the muscles in your thighs & buttocks. Goal: To do this exercise without using your hands as you become stronger. How to do it: 1. Sit toward the front of a sturdy chair with your knees bent & feet flat on the floor shoulder-width apart 2. Rest your hands lightly on the seat on either side of you, keeping your back & neck straight& and chest slightly forward. 3. Breathe in slowly. Lean forward & feel your weight on the front of your feet. 4. Breathe out and slowly stand up, using your hands as little as possible. 5. Pause for a full breath in & out. 6. Breathe in as you slowly sit down. Do not let yourself collapse back down into the chair. Rather, control your lowering as much as possible. 7. Breathe out. Repeat 10-15 times. If this number is too hard for you when you first start practicing this exercise, begin with fewer and work up to this number. Rest for a minute & then do a final set of 10-15. For detailed instructions, please visit the CDC website at http://www.cdc.gov/steadi/pdf/chair_rise_exercise-a.pdf Stepping On is an evidence based program proven to reduce falls in older adults. It is a workshop offered once a week for seven weeks. In a small-group setting, you will learn balance exercises and develop specific knowledge and skills to prevent falls. Older adults who should attend are those who: are at risk of falling who have fallen one or more times lives at home are able to walk without the help of another person Local guest experts provide information on exercise, safety, vision, and medications. Classes are offered at [facility]. To find out specifics about a class, please call [phone]. Gaetano chi: Moving for Better Balance involves low impact exercise. The 12-week class is offered for three hours per week and is led by a trained interior design instructor. It is intended for people aged 60 and older. Participants learn and perform a program of eight forms that progress from easy to more difficult. The program can accommodate persons with various physical conditions. Health Benefits of Gaetano Chi: Moving for Better Balance: Improved social and mental well-being, Improved balance and physical functioning, Improved confidence in conducting daily activities, Reduced risk of falling and sustaining associated injuries, and Maintained independence and improved quality of life. To find a Gaetano Chi program in your area or additional resources about fall prevention please contact: [facility] Violence and Injury Prevention Program at [phone] or [email or web address] A Matter of Balance: Managing Concerns about Falls is an evidence based program designed to reduce the fear of falling and increase activity levels of older adults. A trained nail setter leads 8 two-hour sessions for small groups of older adults. The class is intended for people 60 and older who are at risk of falling have a fear of falling or restrict activities who have fallen in the past are interested in improving flexibility, balance, and strength. Participants will learn to view falls as controllable, set goals to increase activity levels, and reduce fall risks at home. Classes are offered in all [address] [place] [address] in [place]. For more information about specific classes near you, please visit http://aging.[place].gov/steadyu/resources/matterofbalance.aspx. documented in this [id number] History of Present illness Narrative* Yvette Miguel LPN - 06/12/2021 10:09 AM EST PHQ 9 Score 8 MILLER 7 Score 15 Falls Risk 5 * Vivien Foreman MD - 06/12/2021 10:00 AM EST Chief Complaint Patient presents with Follow-up 4 month f/u- Feeling a little better but still struggling Not sure when next counseling appointment Fall Risk Screening HPI: Andrew Arnold is a 75-year-old gentleman presenting today for BP check. PMH of CAD s/p CABG bypass grafting x3, s/p AVR, postoperative A. 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 Currently his partner is also having heart problems and is worried about her. Was offered a grief therapy but was hesitant to join and thought he can handle it on his own. Sleep is poor since his CABG surgery in 2015. Has lost his daughter in March for complication of diabetes , worried about his 16 yo granddaughter who found her in the house. Currently having to dealing with all her belongings. Receiving therapy through a hospice service. Having a supportive family ith his partner , and his son. denies any SI or HI. HTN: Was previously controlled on lisinopril 10 mg , last visit was borderline uncontrolled. Increased lisinopril to 20 mg and has been feeling better and denies any concerns for CP, SOB, POLLACK, blurry vision , tingling/ numbness in extremities. Past Medical History: Diagnosis Date Aortic valve calcification Arrhythmia Atrial fibrillation (HCC) after CABG CAD (coronary artery disease) 3 Vessel Claudication (HCC) Left lower extremity symptoms Fractures Hypertension Mitral valve annular calcification Myocardial infarction (HCC) 08/02/2015 Non-ST Obesity Oral cancer (HCC) Pilonidal cyst Subdural hematoma (HCC) 2008 minor trauma while on Plavix at the time. Tendonitis of wrist, right TIA (transient ischemic attack) 2007 was put on plavix then had subdural one year later. Vitreous hemorrhage of left eye (HCC) Past Surgical History: Procedure Laterality Date AORTIC VALVE REPLACEMENT CARDIAC CATHETERIZATION CARDIAC VALVE REPLACEMENT CORONARY ARTERY BYPASS GRAFT 08/13/2015 3 Vessel/YEUNG to the LAD/SVG to obtuse marginal/SVG to a PDA MOUTH SURGERY 2007 Oral cancer TENDON RELEASE DEQUERVAINS Right 12/26/2018 Procedure: TENDON RELEASE DE QUERVAINS RIGHT; Surgeon: Jenaro Oquendo MD; Location: Main OR; Service: Orthopedic Family History Problem Relation Age of Onset COPD Mother Diabetes Father Stroke Paternal Grandmother Social History Tobacco Use Smoking status: Former Smoker Packs/day: 3.00 Years: 12.00 Pack years: 36.00 Quit date: 08/27/1973 Years since quittin.8 Smokeless tobacco: Former User Types: Chew Vaping Use Vaping Use: Never used Substance Use Topics Alcohol use: Not Currently Alcohol/week: 0.0 standard drinks Drug use: No Review of Systems Vitals: 06/12/21 1011 BP: 129/83 BP Location: Left arm Patient Position: Sitting BP Cuff Size: Adult Pulse: 90 Resp: 18 Temp: 97.9 F (36.6 C) TempSrc: Oral SpO2: 94% Weight: 106.4 kg (234 lb 9.6 oz) Height: 5' 7 Estimated body mass index is 36.74 kg/m as calculated from the following: Height as of this encounter: 5' 7. Weight as of this encounter: 106.4 kg (234 lb 9.6 oz). Physical Exam Constitutional: General: He is not in acute distress. Appearance: He is not ill-appearing. HENT: Head: Normocephalic and atraumatic. Eyes: Extraocular Movements: Extraocular movements intact. Conjunctiva/sclera: Conjunctivae normal. Pupils: Pupils are equal, round, and reactive to light. Cardiovascular: Rate and Rhythm: Normal rate and regular rhythm. Pulses: Normal pulses. Heart sounds: Normal heart sounds. No murmur heard. No gallop. Pulmonary: Effort: Pulmonary effort is normal. Breath sounds: Normal breath sounds. No wheezing, rhonchi or rales. Chest: Chest wall: No tenderness. Abdominal: General: Abdomen is flat. Bowel sounds are normal. There is no distension. Palpations: Abdomen is soft. There is no mass. Tenderness: There is no abdominal tenderness. There is no right CVA tenderness, left CVA tenderness, guarding or rebound. Musculoskeletal: General: No tenderness. Normal range of motion. Cervical back: Normal range of motion and neck supple. No rigidity. No muscular tenderness. Right lower leg: No edema. Left lower leg: No edema. Lymphadenopathy: Cervical: No cervical adenopathy. Skin: General: Skin is warm. Findings: Lesion (1-2 mm hyperpigmented macules on dorsum of rght hand. ) present. No erythema or rash. Neurological: General: No focal deficit present. Mental Status: He is alert and oriented to person, place, and time. Sensory: No sensory deficit. Motor: No weakness. Gait: Gait normal. Psychiatric: Mood and Affect: Mood normal. Behavior: Behavior normal. Thought Content: Thought content normal. Judgment: Judgment normal. OARRS/NARxCHECK Report Received and Assessed: No data found Date controlled substance agreement signed: No data found Date of last drug screen: No data found Functional Assessment: No data found Tobacco Counseling: Counseling given: Not Answered Patient's Medications New Prescriptions No medications on file Previous Medications ACETAMINOPHEN (TYLENOL) 325 MG TABLET Take 650 mg by mouth every 6 (six) hours as needed for pain (1-2 tablets). APIXABAN (ELIQUIS) 5 MG TAB Take 1 (one) tablet (5 mg total) by mouth 2 (two) times a day . ASCORBIC ACID (VITAMIN C) 500 MG CPER Take 500 mg by mouth every other day . ASPIRIN 81 MG EC TABLET Take 1 tablet (81 mg total) by mouth daily. BLOOD SUGAR DIAGNOSTIC (GLUCOSE BLOOD) STRIPS Dx code E11.9 use to check BG 4x daily. BLOOD SUGAR DIAGNOSTIC (RELION PRIME TEST STRIPS) STRIPS E11.65 Use as directed 4 times per day. BUMETANIDE (BUMEX) 1 MG TABLET Take 0.5 (one-half) tablet (0.5 mg total) by mouth daily . DOCUSATE SODIUM (COLACE) 100 MG CAPSULE Take 100 mg by mouth 2 (two) times a day as needed . DULAGLUTIDE (TRULICITY) 1.5 MG/0.5 ML PEN Inject 0.5 mL (1.5 mg total) under the skin once a week . FLU VACC [id number],65YR UP,-PF (FLUZONE HIGH-DOSE) SYRINGE Sign this order in conjunction with the immunization order to satisfy [place] Board [employer] Pharmacy Positive ID requirements for immunization orders. . INSULIN GLARGINE (LANTUS U-100 INSULIN) 100 UNIT/ML INJECTION Inject 28 (twenty eight) Units under the skin nightly . INSULIN LISPRO (HUMALOG) 100 UNIT/ML INJECTION USE DIRECTED, APPROXIMATELY 30 UNITS A DAY. . INSULIN SYR/NDL U100 HALF JENARO 0.3 ML 31 GAUGE X 5/16 SYRG Diag code E11.319 Use 4 times daily . INSULIN SYRINGE-NEEDLE U-100 0.3 ML 31 X 5/16 SYRG Use as directed QID. LANCETS MISC Use to check BG QID SolusV2 brand Dx E11.65. LISINOPRIL (PRINIVIL,ZESTRIL) 20 MG TABLET Take 1 (one) tablet (20 mg total) by mouth daily . METOPROLOL SUCCINATE (TOPROL-XL) 25 MG 24 HR TABLET Take 1 (one) tablet (25 mg total) by mouth daily . PEN NEEDLE, DIABETIC 31 GAUGE X 3/16 NDLE Use as directed 4 times daily. . POTASSIUM CHLORIDE 20 MEQ TBER Take 1 (one) tablet (20 mEq total) by mouth every other day . PSYLLIUM (METAMUCIL) 0.52 GRAM CAPSULE Take 2 capsules by mouth as needed . SIMVASTATIN (ZOCOR) 20 MG TABLET Take 1 (one) tablet (20 mg total) by mouth at bedtime . Modified Medications No medications on file Discontinued Medications No medications on file Health Maintenance Due Topic Date Due COVID-19 Vaccine (1) Never done Hepatitis C Screening Never done Tetanus: Every 10yrs 03/18/2021 Zoster Vaccines (2 of 2) 04/28/2021 A1C 05/28/2021 Assessment & Plan Problem List Items Addressed This Visit Cardiovascular and Mediastinum Hypertension Ventricular fibrillation (HCC) Other Anxiety and depression PHQ 9 Score 8 MILLER 7 Score 15 Grieving appropriately , receiving counseling at this time , not interested in medications. Will continue to monitor and provide support whenever needed. Other Visit Diagnoses At low risk for fall - Primary Mild major depression (HCC) Encounter for immunization Relevant Medications flu vacc [id number],65yr up,-PF (FLUZONE HIGH-DOSE) syringe Other Relevant Orders Influenza vaccine IIV4 High Dose (Completed) I spent over 45 mins reviewing patient's chart , HPI and coordicating plan of care. Return in about 6 months (around 12/11/2021) for Annual Exam. VIVIEN FOREMAN MD [facility] [address] [facility] [address] [facility] [address] Dept: [phone] Over the last 2 weeks, how often have you been bothered by any of the following problems? Little interest or pleasure in doing things Not at all Feeling down, depressed, or hopeless Nearly every day PHQ-2 Total Score 3 Trouble falling or staying asleep, or sleeping too much Not at all Feeling tired or having little energy Not at all Poor appetite or overeating Not at all Feeling bad about yourself - or that you are a failure or have let yourself or your family down Several days Trouble concentrating on things, such as reading the newspaper or watching television Several days Moving or speaking so slowly that other people could have noticed. Or the opposite - being fidgety or restless that you have been moving around a lot more than usual Nearly every day Thoughts that you would be better off , or hurting yourself in some way Not at all PHQ-9 Total Score 8 If you checked off any problems, how difficult have these problems made it for you to do your work,take care of things at home, or get along with other people? Somewhat difficult Depression Screening 12/16/2020 03/02/2021 06/12/2021 Little interest or pleasure in doing things 2 2 0 Feeling down, depressed, or hopeless 2 1 3 PHQ-2 Total Score 4 3 3 Trouble falling or staying asleep, or sleeping too much 2 2 0 Feeling tired or having little energy 1 1 0 Poor appetite or overeating 0 0 0 Feeling bad about yourself - or that you are a failure or have let yourself or your family down 2 21 Trouble concentrating on things, such as reading the newspaper or watching television 2 2 1 Moving or speaking so slowly that other people could have noticed. Or the opposite - being so fidgety or restless that you have been moving around a lot more than usual 0 0 3 Thoughts that you would be better off , or of hurting yourself in some way 2 0 0 PHQ-9 Total Score 13 10 8 If you checked off any problems, how difficult have these problems made it for you to do your work,take care of things at home, or get along with other people? Somewhat difficult - Somewhat difficult documented in this [id number] History of Present illness Narrative* Hola Arroyo Jr., DPM - 03/25/2021 8:31 AM EDT Nail care Patient is a pleasant 75-year-old male who comes in today for nail care. His geriatric status and diabetes is managed by primary including Dr. Foreman, date of last service is February 27, 2021. Comes in today for nail care. Physical Vascular: DP pulses are palpable 2-4. PT pulses are nonpalpable due to edema. +1 foot and ankle edema. Skin is shiny atrophic dysvascular with absence of hair growth. Feet are warm to cool proximal to distal. Nails left foot 40520 and right foot 02208 are elongated thickened mycotic crumbling dystrophic. Neuro: Light touch is fair Babinski's is fair. Musculoskeletal: Can easily wiggle toes not any clicking or catching. 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 -Given his elevated limb loss risk score he does qualify for nail care. Procedure: After timeout consent was performed, sharply debrided and debulk in height and length 10onychomycotic nails with a sharp around nail nippers consistent with a q8 modifier. Follow-up in 3 months documented in this [id number] History of Present illness Narrative* GONZALO Hercules - 03/03/2021 2:19 PM EDT P reached out to [facility] regarding BH referral placed by PCP. [facility] left message including contact information with request for a return call. [facility] will follow up in 1 week. documented in this [id number] Miscellaneous Notes* Assessment & Plan Note - Vivien Foreman MD - 03/02/2021 11:07 AM EDT Associated Problem(s): Anxiety and depression PHQ9 score of 15 and GAD7 score of 7. Needs coping skills due to depression , persistent grief symptoms Behavioral health placed today. * Assessment & Plan Note - Vivien Foreman MD - 03/02/2021 10:46 AM EDT Associated Problem(s): Balance disorder Weak muscles , need to increase physical activity Potentially referring to PT , patient will start with some home exercises and follow up in 2-3 months documented in this [id number] Instructions* Patient Instructions* Vivien Foreman MD - 03/02/2021 11:03 AM EDT Images from the original note were not included. Problem List Items Addressed This Visit Other Balance disorder Weak muscles , need to increase physical activity Potentially referring to PT , patient will start with some home exercises and follow up in 2-3 months Other Visit Diagnoses Anxiety and depression - Primary Relevant Orders Ambulatory Ref to [facility]chandising Assistant Encounter for immunization Relevant Medications varicella-zoster gE (SHINGRIX-KIT) 0.5 mL If any referrals were placed at the time of your visit please allow 2 weeks for processing. If you haven't heard from anyone within 2 weeks please contact my office so we can look into the status of your referral. If you were given any labs today please ensure they are completed according to the directions given. Once labs are completed please allow 1-2 weeks for us to receive the results, review them, and letyou know what steps, if any, are needed next. If you haven't heard from us after that please call to inquire. If labs were ordered to be done PRIOR to your next visit we will discuss the results at the time ofyour office visit. If any procedures or imaging studies were ordered that must be prior authorized please give us 2 weeks to get them approved. Once approved someone should call you to schedule them or give you a date and time that they were scheduled for. If you haven't heard anything within 2 weeks of the office visit please call the office so we can look into their status. Customer Service/Billing Questions: [phone] [place] Assistance: [phone] or [phone] Financial Assistance: [phone] or [phone] As of July 16, 2019 my schedule will be changing: Tuesday 7 am to 5 pm Tuesday 7 am to 5 pm Tuesday closed 7 am to 5 pm Tuesday 7 am to 1 pm 4 Benefits of Healthy Eating (01:24) Your health professional recommends that you watch this short online health video. Learn how you can benefit from healthy eating. Purpose: Discusses the benefits of healthy eating, such as increased energy, better digestion, and lowering the risk for certain diseases. Goal: The user will learn about the benefits of healthy eating. How to watch the video Scan the QR code OR Visit the website [email or web address] Current as of: June 26, 2020 Content Version: 12.9 Private Practice. Care instructions adapted under license by your healthcare professional. If you have questions about a medical condition or this instruction, always ask your healthcare professional. Private Practice disclaims any warranty or liability for your use of this information. Therapeutic Ball: Back Exercises Introduction Here are some examples of typical exercises for your condition. Start each exercise slowly. Ease off the exercise if you start to have pain. Your doctor or physical therapist will tell you when you can start these exercises and which ones will work best for you. To prepare, make sure that your ball is the right size for you. When inflated and firm, it should allow you to sit with your hips and knees bent at about a 90-degree angle (like the letter L). How to do the exercises Seated position on ball 1. Use this exercise to get used to moving on the ball and to find your best sitting position. 2. Sit comfortably on the ball with your feet about hip-width apart. If you feel unsteady, rest your hands on the ball near your hips. 3. As you do this exercise, try to keep your shoulders and upper body relaxed and still. 4. Using your stomach and back muscles to move your pelvis, roll the ball forward. This will round your back. 5. Still using your stomach and back muscles, roll the ball back. You will arch your back. 6. Repeat this rounding-arching motion a few times. 7. Stop in between the two positions, where your back is not rounded or arched. This is called yourneutral position. Pelvic rotation 1. Sit tall on the ball. 2. Slowly rotate your hips in a [place] pattern. Keep the movement focused at your hips. 3. Repeat, but [place] in the other direction. 4. Repeat 8 to 12 times. Postural sitting 1. Use this position to find a stable, relaxed posture on the ball. You can use this position as your starting point for other ball exercises. If you feel unsteady on the ball, start on a chair first. 2. Sit on a ball or chair, with your feet planted straight in front of you. 3. Imagine that a string at the top of your head is pulling you straight up. Think of yourself as 2inches taller than you are. 4. Slightly tuck your chin. 5. Keep your shoulders back and relaxed. Knee extension 1. Sit tall on the ball with your feet planted in front of you, hip-width apart. As you do this exercise, avoid slumping your shoulders and arching your back. 2. Rest your hands on the ball near your hip or a steady object next to you. (If you feel very stable on the ball, rest your hands in your lap or at your side.) 3. Slowly straighten one leg at the knee. Slowly lower it back down. Repeat with the other leg. 4. Repeat this exercise 8 to 12 times. Roll-ups 1. Lie on your back with your knees bent, feet resting on the floor. 2. Lay the ball on your thighs. Rest your hands up high on the ball. 3. Raising your head and shoulder blades, roll the ball up your thighs. Exhale as you roll up. 4. If this is hard on your neck, gently support your lower head and upper neck with one hand. Don'tuse that hand to pull your head up. 5. Repeat 8 to 12 times. Ball curls 1. Lie on your back with your ankles resting on the ball, knees straight. 2. Use your legs to roll the exercise ball toward you. Allow your knees to bend and move closer to your chest. 3. Pause briefly, and then roll the ball to the starting position. Try to keep the ball rolling straight. You will feel the muscles in your lower belly working. 4. Repeat 8 to 12 times. Bridge with ball under legs 1. Lie on your back with your legs up, calves resting on the ball. For more challenge, rest your heels on the ball. 2. Look up at the ceiling, and keep your chin relaxed. You can place a small pillow under your heador neck for comfort. 3. With your arms by your side, press your hands onto the floor for stability. 4. Tighten your belly muscles by pulling in your belly button toward your spine. 5. Push your heels down toward the floor, squeeze your buttocks, and lift your hips off the floor until your shoulders, hips, and knees are all in a straight line. 6. Try to keep the ball steady. Hold for about 6 seconds as you continue to breathe normally. 7. Slowly lower your hips back down to the floor. 8. Repeat 8 to 12 times. Ball curls with bridge 1. Start flat on your back with your ankles resting on the ball. 2. Look up at the ceiling, and keep your chin relaxed. You can place a small pillow under your heador neck for comfort. 3. With your arms by your side, press your hands onto the floor for stability. 4. Tighten your belly muscles by pulling in your belly button toward your spine. 5. Push your heels down toward the floor, squeeze your buttocks, and lift your hips off the floor until your shoulders, hips, and knees are all in a straight line. 6. While holding the bridge position, roll the ball toward you with your heels. Keep your hips as level as you can. 7. Pause briefly, and then roll the ball back out. Try to keep the ball rolling straight. You will feel the muscles in your lower belly working as you straighten your legs. 8. Lower your hips, and return to your starting position. 9. Repeat 8 to 12 times. 10. When you can keep your body and the ball steady throughout this exercise, you're ready for morechallenge. Try keeping your hips raised while rolling the ball out, holding the bridge, and rollingback, a few times in a row. Praying nevaeh 1. Kneel upright with the ball in front of you. 2. To start, clasp your hands together. Rest them on the ball in front of you. 3. As you do this exercise, keep your back and hips straight and tighten your belly and buttocks muscles. Keep your knees in place. 4. Press on the ball with your arms. Lean forward from the knees. This rolls the ball forward. You will bear most of your weight on your arms. 5. If your back starts to ache, you've gone too far. Pull back a bit. 6. Roll back to the start position. 7. Repeat 8 to 12 times. Walk-out plank on ball 1. Kneel over the ball. Place your hands on the floor in front of you. 2. Walk your hands forward until your legs are straight on the ball. This is the plank position. 3. When in plank position, hold your body straight and tighten your belly and buttocks muscles. Keep your chin slightly tucked. 4. Roll as far forward as you can without losing your balance or letting your hips drop. You may stop with the ball under your thighs, or even under your knees or shins. 5. Hold a few seconds, then walk your hands back and return to the start position. 6. Repeat 8 to 12 times. Push-up with thighs on ball 1. Kneel over the ball. Place your hands on the floor in front of you. 2. Walk your hands forward until your legs are straight on the ball. This is the plank position. 3. When in plank position, hold your body straight and tighten your belly and buttocks muscles. Keep your chin slightly tucked. 4. Roll as far forward as you can without losing your balance or letting your hips drop. You may stop with the ball under your thighs, or even under your knees or shins. 5. Bend your elbows. Slowly lower your body toward the ground as far as you can without losing yourbalance. 6. If your wrists hurt, try moving your hands a little farther apart so they're not right under your shoulders. 7. Slowly straighten your arms. 8. Do 8 to 12 of these push-ups. Wall squat with ball 1. Stand facing away from a wall. Place your feet about shoulder-width apart. 2. Place the ball between your middle back and the wall. Move your feet out in front of you so theyare about a foot in front of your hips. 3. Keep your arms at your sides, or put your hands on your hips. 4. Slowly squat down as if you are going to sit in a chair, rolling your back over the ball as you squat. The ball should move with you but stay pressed into the wall. 5. Be sure that your knees do not go in front of your toes as you squat. 6. Hold for 6 seconds. 7. Slowly rise to your standing position. 8. Repeat 8 to 12 times. Child's pose with ball 1. Kneeling upright with your back straight, rest your hands on the ball in front of you. 2. Breathe out as you bend at the hips, and roll the ball forward. Lower your chest toward the ground, and drop your hips back toward your heels. 3. To stretch your upper back and shoulders, hold this position for 15 to 30 seconds. 4. Repeat 2 to 4 times. Follow-up care is a mata part of your treatment and safety. Be sure to make and go to all appointments, and call your doctor if you are having problems. It's also a good idea to know your test resultsand keep a list of the medicines you take. Where can you learn more? Log into your personal health record on?https://Micromidas.AWAK?and enter+I929?in the Education box to learn more about Therapeutic Ball: Back Exercises. Current as of: May 26, 2020 Content Version: 12.9 Private Practice. Care instructions adapted under license by your healthcare professional. If you have questions about a medical condition or this instruction, always ask your healthcare professional. Private Practice disclaims any warranty or liability for your use of this information. Diabetes and Preventing Falls: Care Instructions Overview Complications of diabetes such as nerve damage, foot problems, and reduced vision may increase yourrisk of a fall. Some of your medicines also may add to your risk. By making your home safer, you can lower your risk of falling. Doing things to prevent diabetes complications may also help to lower your risk. You can make your home safer with a few simple measures. Follow-up care is a mata part of your treatment and safety. Be sure to make and go to all appointments, and call your doctor if you are having problems. It's also a good idea to know your test resultsand keep a list of the medicines you take. How can you care for yourself at home? Taking care of yourself Keep your blood sugar at a target level (which you set with your doctor). Exercise regularly to improve your strength, muscle tone, and balance. Walk if you can. Swimming may be a good choice if you cannot walk easily. Have your vision checked as often as your doctor recommends. It is usually once a year or more often if you have eye problems. Know the side effects of the medicines you take. Ask your doctor or pharmacist whether the medicines you take can affect your balance. Sleeping pills or sedatives can affect your balance. Limit the amount of alcohol you drink. Alcohol can impair your balance and other senses. Have your doctor check your feet during each visit. If you have a foot problem, see your doctor. Preventing falls at home Remove raised doorway thresholds, throw rugs, and clutter. Repair loose carpet or raised areas in the floor. Move furniture and electrical cords to keep them out of walking paths. Use nonskid floor wax, and wipe up spills right away, especially on ceramic tile floors. If you use a walker or cane, put rubber tips on it. If you use crutches, clean the bottoms of them regularly with an abrasive pad, such as steel wool. Keep your house well lit, especially stairways, porches, and outside walkways. Use night-lights in areas such as hallways and bathrooms. Add extra light switches or use remote switches (such as switches that go on or off when you clap your hands) to make it easier to turn lights on if you have to get up during the night. Install sturdy handrails on stairways. Put grab bars near your shower, bathtub, and toilet. Store household items on low shelves so that you do not have to climb or reach high. Or use a reaching device that you can get at a medical supply store. If you have to climb for something, use a step stool with handrails, or ask someone to get it for you. Keep a cordless phone and a flashlight with new batteries by your bed. If possible, put a phone in each of the main rooms of your house, or carry a cell phone in case you fall and cannot reach a phone. Or you can wear a device around your neck or wrist. You push a button that sends a signal for help. Wear low-heeled shoes that fit well and give your feet good support. Use footwear with nonskid soles. Check the heels and soles of your shoes for wear. Repair or replace worn heels or soles. Do not wear socks without shoes on wood floors. Walk on the grass when the sidewalks are slippery. If you live in an area that gets snow and ice inthe winter, sprinkle salt on slippery steps and sidewalks. Where can you learn more? Log into your personal health record on?https://Micromidas.[employer].LuxTicket.sg?and enter X601?in the Education box to learn more about Diabetes and Preventing Falls: Care Instructions. Current as of: June 16, 2020 Content Version: 12.9 Private Practice. Care instructions adapted under license by your healthcare professional. If you have questions about a medical condition or this instruction, always ask your healthcare professional. Private Practice disclaims any warranty or liability for your use of this information. documented in this [id number] History of Present illness Narrative* Vivien Foreman MD - 03/02/2021 10:00 AM EDT Subjective Andrew Arnold is a 75 y.o. male who presents for a Medicare Wellness Visit. PMH of CAD s/p CABG bypass grafting x3, s/p AVR, postoperative A. 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 Currently his partner is also having heart problems and is worried about her. Was offered a grief therapy but was hesitant to join and thought he can handle it on his own. Sleep is poor since his CABG surgery in 2016. Balance issues in the past and fell twice this year. Trying to exercise working out for 20 mins on his elliptical but not everyday Medicare Risk Assessment Do you have an Advanced Directive (Living Will and/or Durable Power of Channel Opener Outsoles for Health Care)?: Yes What is your exercise level?: Moderate What is your diet?: Diabetic Can you prepare your own meals?: Yes Do you have trouble with finding transportation?: No Because of any health problems, do you need the help of another person with your personal care needs? (For example, eating, bathing, dressing, or getting around the house.): No Does your home have throw rugs, poor lighting or slippery bathtub or shower?: No Does your home have grab bars in bathrooms or handrails on stairs and steps?: Yes During the past four weeks, how would you rate your health in general?: Fair Whether or not you use a hearing aid, do you think you have a hearing problem or do others think you have a hearing problem?: (!) Yes Whether or not you use glasses or contacts, do you have difficulty driving, watching television, reading, or doing any of your daily activities because of your eyesight?: No In the past six months, have you had an unexplained weight loss of 10 pounds or more?: No How often do you have trouble taking medicines the way you have been told to take them?: I always take as prescribed During the past four weeks, how much have you been bothered by emotional problems such as feeling anxious, depressed, irritable, sad, or downhearted and blue?: (!) Quite a bit During the past four weeks, has your physical and emotional health limited your social activites with family, friends, neighbors, or groups? : Slightly Falls Risk Assessment Is Patient Ambulatory?: Y Fell in past year: 2 (Yes) How many falls in the past year?: 2 Did any of these falls result in an injury?: No Unsteady when walks: 0 (No) Worried about fallin (Yes) Advised to use cane/walker?: 0 (No) Type of assistive device: no Holds onto furniture/blanca: 1 (Yes) Uses hands to stand up from a chair: 1 (Yes) Trouble stepping onto curb: 0 (No) Rushes to toilet: 1 (Yes) Lost feeling in feet: 0 (No) Medicine makes me light-headed: 0 (No) Medicine for sleep or mood: 0 (No) Often feel sad/depressed: 1 (Yes) Patient Self Risk Assessment Score: 7 Timed Up and Go (TUG): 13-20 seconds (LICENSED CLINICIANS ONLY)Postural stability, gait, stride length, and sway: Little or no arm swing Medicare Mini Cog Step 1: Three Word Registration Version Used: Version 3: Village, Kitchen, Baby Step 2: Clock Drawing Step 2 score: Normal clock - 2 points Clock has all numbers placed in the correct sequence & position (e.g., 12, 3, 6 and 9 are in anchor positions) with no missing or duplicate numbers. Hands are pointing to the 11 & 2 (11:10). Hand length is not scored. Step 3: Three Word Recall Record patient's answers to the right: Bry Chavez, Baby Step 3: Three Word Recall Score: 3 Words Recalled Total score = Word Recall score + Clock Draw score A cut point of <3 on the Mini-Cog has been validated for dementia screening, but many individuals with clinically meaningful cognitive impairment will score higher. A cut point of <4 may indicate a need for further evaluation of cognitive status.: 5 Comprehensive Medical and Social History: Patient Active Problem List Diagnosis CAD (coronary artery disease) Hypertension S/P CABG (coronary artery bypass graft) S/P aortic valve replacement Postoperative atrial fibrillation (HCC) Fractured sternal wires (HCC) Type 2 diabetes mellitus with retinopathy of both eyes, with long-term current use of insulin (HCC) Hypercholesterolemia Delayed wound healing Iron deficiency anemia RBBB Chest pain Prominent abdominal aortic pulse Wrist pain, chronic, right De Quervain's disease (radial styloid tenosynovitis) DDD (degenerative disc disease), lumbar Malignant neoplasm of buccal sulcus (HCC) Morbid obesity (HCC) Benign prostatic hyperplasia with urinary retention Hearing loss, sensorineural Traumatic subdural hemorrhage (HCC) Skin mole A-fib (HCC) Balance disorder Anxiety and depression Past Medical History: Diagnosis Date Aortic valve calcification Arrhythmia Atrial fibrillation (HCC) after CABG CAD (coronary artery disease) 3 Vessel Claudication (HCC) Left lower extremity symptoms Diabetes mellitus, type 2 (HCC) Diabetic retinopathy (HCC) Laser treatment Fractures Hypertension Mitral valve annular calcification Myocardial infarction (HCC) 08/02/2015 Non-ST Obesity Oral cancer (HCC) Pilonidal cyst Subdural hematoma (HCC) 2008 minor trauma while on Plavix at the time. Tendonitis of wrist, right TIA (transient ischemic attack) 2007 was put on plavix then had subdural one year later. Vitreous hemorrhage of left eye (HCC) Past Surgical History: Procedure Laterality Date AORTIC VALVE REPLACEMENT CARDIAC CATHETERIZATION CARDIAC VALVE REPLACEMENT CORONARY ARTERY BYPASS GRAFT 08/13/2015 3 Vessel/YEUNG to the LAD/SVG to obtuse marginal/SVG to a PDA MOUTH SURGERY 2007 Oral cancer TENDON RELEASE DEQUERVAINS Right 12/26/2018 Procedure: TENDON RELEASE DE QUERVAINS RIGHT; Surgeon: Jenaro Oquendo MD; Location: Main OR; Service: Orthopedic Current Outpatient Medications Medication Sig Dispense Refill acetaminophen (TYLENOL) 325 MG tablet Take 650 mg by mouth every 6 (six) hours as needed for pain (1-2 tablets). apixaban (ELIQUIS) 5 mg Tab Take 1 (one) tablet (5 mg total) by mouth 2 (two) times a day . 180 tablet 3 ascorbic Acid (VITAMIN C) 500 mg CpER Take 500 mg by mouth every other day . aspirin 81 MG EC tablet Take 1 tablet (81 mg total) by mouth daily. 90 tablet 3 blood sugar diagnostic (glucose blood) strips Dx code E11.9 use to check BG 4x daily. 150 strip 11 blood sugar diagnostic (RELION PRIME TEST STRIPS) strips E11.65 Use as directed 4 times per day. 150 strip 11 bumetanide (BUMEX) 1 MG tablet Take 0.5 (one-half) tablet (0.5 mg total) by mouth daily . (Patient taking differently: Take 0.5 mg by mouth every other day .) 45 tablet 3 docusate sodium (COLACE) 100 MG capsule Take 100 mg by mouth 2 (two) times a day as needed . dulaglutide (Trulicity) 1.5 mg/0.5 mL Pen Inject 0.5 mL (1.5 mg total) under the skin once a week .2.5 mL 11 insulin glargine (Lantus U-100 Insulin) 100 unit/mL injection Inject 28 (twenty eight) Units under the skin nightly . 30 mL 3 insulin lispro (HumaLOG) 100 unit/mL injection USE DIRECTED, APPROXIMATELY 30 UNITS A DAY. . 30 mL 3 insulin syr/ndl U100 half jenaro 0.3 mL 31 gauge x 5/16 Syrg Diag code E11.319 Use 4 times daily . 200 Syringe 10 insulin syringe-needle U-100 0.3 mL 31 x 5/16 Syrg Use as directed QID. 400 each 3 lancets Misc Use to check BG QID SolusV2 brand Dx E11.65. 200 each 11 lisinopriL (PRINIVIL,ZESTRIL) 20 MG tablet Take 1 (one) tablet (20 mg total) by mouth daily . 90 tablet 3 metoprolol succinate (TOPROL-XL) 25 MG 24 hr tablet Take 1 (one) tablet (25 mg total) by mouth daily . 90 tablet 3 pen needle, diabetic 31 gauge x 3/16 Ndle Use as directed 4 times daily. . 400 each 3 potassium chloride 20 mEq TbER Take 1 (one) tablet (20 mEq total) by mouth every other day . 45 tablet 0 psyllium (METAMUCIL) 0.52 gram capsule Take 2 capsules by mouth as needed . simvastatin (ZOCOR) 20 MG tablet Take 1 (one) tablet (20 mg total) by mouth at bedtime . 90 tablet 3 varicella-zoster gE (SHINGRIX-KIT) 0.5 mL Administer diluted solution (0.5 mL) one time IM into thedeltoid region of the upper arm. (Note: Kit contains both the powder and diluent) 0.5 mL 0 No current facility-administered medications for this visit. Social History Socioeconomic History Marital status: Spouse name: Not on file Number of children: Not on file Years of education: Not on file Highest education level: Not on file Occupational History Not on file Tobacco Use Smoking status: Former Smoker Packs/day: 3.00 Years: 12.00 Pack years: 36.00 Quit date: 08/27/1973 Years since quittin.5 Smokeless tobacco: Former User Types: Chew Vaping Use Vaping Use: Never used Substance and Sexual Activity Alcohol use: Not Currently Alcohol/week: 0.0 standard drinks Drug use: No Sexual activity: Not Currently Partners: Female Other Topics Concern Not on file Social History Narrative Living with partner, 2 kids and one grand-duaghter Retired [place] department of [employer] in 2005 Social Determinants of Health Financial Resource Strain: Difficulty of Paying Living Expenses: Not on file Food Insecurity: Worried About Running Out of Food in the Last Year: Not on file Ran Out of Food in the Last Year: Not on file Transportation Needs: Lack of Transportation (Medical): Not on file Lack of Transportation (Non-Medical): Not on file Physical Activity: Days of Exercise per Week: Not on file Minutes of Exercise per Session: Not on file Stress: Feeling of Stress : Not on file Social Connections: Frequency of Communication with Friends and Family: Not on file Frequency of Social Gatherings with Friends and Family: Not on file Attends Latter Day Services: Not on file Active Member of Clubs or Organizations: Not on file Attends Club or Organization Meetings: Not on file Marital Status: Not on file Housing Stability: Unable to Pay for Housing in the Last Year: Not on file Number of Places Lived in the Last Year: Not on file Unstable Housing in the Last Year: Not on file Allergies: Allergies Allergen Reactions Pioglitazone GI Intolerance Care Team Patient Care Team: Vivien Foreman MD as PCP - General (Family Medicine) Pharmacy / Equipment Co. (DME) [facility] [id number] [place], [place] [address] [facility] [address] [facility] [id number] [facility] [id number] - [place], [place] - [address] [facility] [address] [facility] [id number] Objective Blood pressure 120/62, pulse 83, temperature 99 F (37.2 C), temperature source Temporal, resp. rate16, height 5' 7, weight 104.8 kg (231 lb), SpO2 96 %. Body mass index is 36.18 kg/m . Vitals: PACU Vitals 03/02/21 0953 BP: 120/62 Pulse: 83 Resp: 16 Temp: 99 F (37.2 C) SpO2: 96% Vision and Hearing Screen: No exam data present Assessment: The primary encounter diagnosis was Anxiety and depression. Diagnoses of Balance disorder and Encounter for immunization were also pertinent to this visit. Plan: During the course of the visit the patient was educated and counseled about appropriate screening and preventive services including: Advice / Referrals: Refer to Behavioral Health Resources Handouts Reviewed and discussed with Patient: Balance exercises , living will resources which needsrevised from had them filled in 2015. behavioral health resources given anxiety and depression concerns. 5-Year Plan: Health Maintenance Topic Date Due Ophthalmology Exam Never done COVID-19 Vaccine (1) Never done Hepatitis C Screening Never done Zoster Vaccines (1 of 2) Never done Sequential Influenza Vaccine (1) 03/11/2021 Tetanus: Every 10yrs 03/18/2021 A1C 08/28/2021 Depression Remission Assessment (PHQ9) 10/16/2021 Urine Microalbumin 12/17/2021 Falls Risk Assessment 03/02/2022 Wellness Visit 03/02/2022 Foot Exam 03/02/2022 Pneumococcal Vaccine: Age 65+ Completed Problem List Items Addressed This Visit Other Balance disorder Weak muscles , need to increase physical activity Potentially referring to PT , patient will start with some home exercises and follow up in 2-3 months Anxiety and depression - Primary PHQ9 score of 15 and GAD7 score of 7. Needs coping skills due to depression , persistent grief symptoms Behavioral health placed today. Relevant Orders Ambulatory Ref to SD CM Visual Merchandising Assistant Other Visit Diagnoses Encounter for immunization Relevant Medications varicella-zoster gE (SHINGRIX-KIT) 0.5 mL Patient Instructions (the written plan) was given to the patient. VIVIEN FOREMAN MD Family Medicine Physician [place] [phone] documented in this [id number] Instructions* Patient Instructions* Radha Hughes CNP - 03/02/2021 9:28 AM EDT Plan: 1. Rx changes: Adjust medications as below Humalog insulin: 5-10 units at breakfast; 6-10 units at lunch; 6-10 units at supper Lantus insulin: 30 units at bedtime Use as directed with Humalog insulin before meals and at bedtime. 151-200: 1 units fast acting insulin 201-250: 2 units fast acting insulin 251-300: 3 units fast acting insulin 301-350: 4 units fast acting insulin 351-400: 5 units fast acting insulin above 400: 6 units fast acting insulin Increase Trulicity 1.5 mg weekly documented in this [id number] History of Present illness Narrative* Radha Hughes CNP - 03/02/2021 9:18 AM EDT Images from the original note were not included. Patient ID: Andrew Arnold is a 75 y.o. male 1945 Subjective: Andrew Arnold presents for follow-up of Type 2 diabetes Patient has had diabetes for 20 years. Diagnosed in 2000 Outpatient Medications Marked as Taking for the 03/02/21 encounter (Office Visit) with Radha Hughes CNP: acetaminophen (TYLENOL) 325 MG tablet, Take 650 mg by mouth every 6 (six) hours as needed for pain (1-2 tablets). apixaban (ELIQUIS) 5 mg Tab, Take 1 (one) tablet (5 mg total) by mouth 2 (two) times a day . ascorbic Acid (VITAMIN C) 500 mg CpER, Take 500 mg by mouth every other day . aspirin 81 MG EC tablet, Take 1 tablet (81 mg total) by mouth daily. blood sugar diagnostic (glucose blood) strips, Dx code E11.9 use to check BG 4x daily. blood sugar diagnostic (RELION PRIME TEST STRIPS) strips, E11.65 Use as directed 4 times per day. bumetanide (BUMEX) 1 MG tablet, Take 0.5 (one-half) tablet (0.5 mg total) by mouth daily . (Patienttaking differently: Take 0.5 mg by mouth every other day .) docusate sodium (COLACE) 100 MG capsule, Take 100 mg by mouth 2 (two) times a day as needed . dulaglutide (Trulicity) 0.75 mg/0.5 mL Pen, Inject 0.5 mL (0.75 mg total) under the skin once a week . insulin glargine (Lantus U-100 Insulin) 100 unit/mL injection, Inject 28 (twenty eight) Units underthe skin nightly . insulin lispro (HumaLOG) 100 unit/mL injection, USE DIRECTED, APPROXIMATELY 30 UNITS A DAY. . insulin syr/ndl U100 half jenaro 0.3 mL 31 gauge x 5/16 Syrg, Diag code E11.319 Use 4 times daily . insulin syringe-needle U-100 0.3 mL 31 x 5/16 Syrg, Use as directed QID. lancets Mis, Use to check BG QID SolusV2 brand Dx E11.65. lisinopriL (PRINIVIL,ZESTRIL) 20 MG tablet, Take 1 (one) tablet (20 mg total) by mouth daily . metoprolol succinate (TOPROL-XL) 25 MG 24 hr tablet, Take 1 (one) tablet (25 mg total) by mouth daily . pen needle, diabetic 31 gauge x 3/16 Ndle, Use as directed 4 times daily. . potassium chloride 20 mEq TbER, Take 1 (one) tablet (20 mEq total) by mouth every other day . psyllium (METAMUCIL) 0.52 gram capsule, Take 2 capsules by mouth as needed . simvastatin (ZOCOR) 20 MG tablet, Take 1 (one) tablet (20 mg total) by mouth at bedtime . Review of Systems: Review of Systems Constitutional: Negative for fatigue and unexpected weight change. HENT: Positive for hearing loss. Negative for trouble swallowing. Eyes: Negative for visual disturbance. Respiratory: Negative for cough and shortness of breath. Cardiovascular: Negative for chest pain and leg swelling. Gastrointestinal: Negative for abdominal pain, constipation, diarrhea, nausea and vomiting. Endocrine: Negative for polydipsia, polyphagia and polyuria. Genitourinary: Negative for frequency and urgency. Skin: Negative for wound. Neurological: Positive for weakness (pain with walking). Negative for numbness and headaches. Psychiatric/Behavioral: Negative for agitation and sleep disturbance. The patient is not nervous/anxious. The following portions of the patient's history were reviewed and updated as appropriate: allergies, current medications, past family history, past medical history, past social history, past surgicalhistory and problem list. Objective: BP 133/75 (BP Location: Left arm, Patient Position: Sitting, BP Cuff Size: Adult) Pulse 92 Ht 5' 7 Wt 105.1 kg (231 lb 12.8 oz) BMI 36.31 kg/m Wt Readings from Last 3 Encounters: 03/02/21 105.1 kg (231 lb 12.8 oz) 02/27/21 105.2 kg (232 lb) 01/09/21 98 kg (216 lb) Physical Exam: General: alert, appears stated age and cooperative Eyes: conjunctivae/corneas clear. PERRL, EOM's intact. Neck: no adenopathy, supple, symmetrical, trachea midline. Thyroid: No thyromegaly appreciated Lung: clear to auscultation bilaterally Heart: regular rate and rhythm, S1, S2 normal, no murmur, click, rub or gallop Extremities: extremities normal, atraumatic, no cyanosis or edema Feet: Dry skin, Bilateral Feet: warm, good capillary refill and normal DP. Monofilament exam Normal, bilateral lower extremities. Neuro: normal without focal findings, mental status, speech normal, alert and oriented x3 and [facility] Laboratory Review: BP 133/75 (BP Location: Left arm, Patient Position: Sitting, BP Cuff Size: Adult) Pulse 92 Ht 5' 7 Wt 105.1 kg (231 lb 12.8 oz) BMI 36.31 kg/m Lab Results Component Value Date HGBA1C 10.1 (H) 02/25/2021 Glucose (mg/dL) Date Value 02/25/2021 141 (H) Creatinine (mg/dL) Date Value 02/25/2021 0.91 05/05/2020 0.94 Lab Results Component Value Date CHOL 124 12/17/2020 TRIG 60 12/17/2020 HDL 56 12/17/2020 LDLCALC 56 12/17/2020 Lab Results Component Value Date TSH 1.54 02/25/2021 Lab Results Component Value Date WBC 6.30 12/17/2020 HGB 13.4 (L) 12/17/2020 HCT 41.1 12/17/2020 MCV 82.4 12/17/2020 PLT 175 12/17/2020 Date: 02/25/21 *labs reviewed 03/02/21 Hgb A1c: 10.1% Creat: 0.91; eGFR: 82 AST: 21; ALT: 21 K: 4.6 TSH: 1.54 ; FreeT4: 1.2 12/17/20 Hgb A1c: 12.5% Creat: 1.18; eGFR: 60 AST: 13; ALT: 20 K: 4.6 CBC: WBC:6.30; Hgb: 13.4; Hct: 41.1; Plt: 175 Tchol: 124; Tri ; HDL: 56 ; LDL: 56 TSH: 2.05 Microalbumin/creatinine Ratio: 41 05/05/20 Hgb A1c: 8.9% Creat: 0.94; eGFR: >60 K: 4.0 TSH: 2.39 ; FreeT4: 1.10 12/27/19 Hgb A1c: 9.0% Creat: 0.98; eGFR: >60 AST: 14; ALT: 21 K: 4.6 CBC: WBC:7.0; Hgb: 14.0; Hct: 42.7; Plt: 201 Tchol: 133; Tri ; HDL: 52 ; LDL: 70 TSH: 2.72 ; FreeT4: 1.05 02/20/19 Hgb A1c: 8.8% Creat: 1.0; eGFR: >60 AST: 22; ALT: 25 K: 4.1 10/23/2018 Hemoglobin A1c 9.7% Creatinine 1.00, EGFR >60, K4.2 AST 22, ALT 31 Microalbumin/creatinine ratio: 12 TSH 2.03, free T4 0.87 T cholesterol 118, TG 49, HDL 51, LDL 57 CBC: H/H 14.3/42.6, WBC 5.2, platelets 180,000 06/20/18 Hgb A1c: 6.3% Creat: 0.9; eGFR: >60 AST: 25; ALT: 17 K: 4.3 Assessment/Plan: Dx: 1. Type 2 diabetes mellitus with retinopathy of both eyes, with long-term current use of insulin, macular edema presence unspecified, unspecified retinopathy severity (HCC) 2. Essential hypertension Type 2 diabetes, under fair control Currently taking: No oral hypoglycemic medications Humalog insulin: 5-10 units at breakfast; 6-8 units at lunch; 6-9 units at supper Lantus insulin: 28 units at bedtime Current Hemoglobin A1C= Lab Results Component Value Date HGBA1C 10.1 (H) 02/25/2021 HGBA1C 12.5 (H) 12/17/2020 HGBA1C 8.9 05/05/2020 Weight trend: has decreased 1 lbs. Current diet: carb controlled, avoiding concentrated sugars Doing much better. Current exercise: none Current monitoring regimen: home blood tests - 4 times daily Home blood sugar records: Fasting B-407 Pre-lunch B-294 Pre-supper B Bedtime BG: Any episodes of hypoglycemia? Occasionally, typically <1 time weekly. Aware of lows. NOTES: Hgb A1c improved significantly to 10.1% from 12.5% December 2020. Patient currently on QID insulin. He would benefit from slight increase in insulin doses and increase in Trulicity to aid in dietary modifications, weight loss and glycemic control. PLAN: See below Retinopathy: Positive: Background diabetic retinopathy and Laser Treatment Exam within last 12 months: yes Date: 12/31/19 Store Administrative Assistant/Lang Interpreter: Other Ophthalmologic Conditions: None known Nephropathy: Negative Creat: 0.91 02/28 Lab Results Component Value Date CREATININE 0.91 02/25/2021 EXTEGFR >60 12/27/2019 EXTEGFRAFAME >60 12/27/2019 Microlbumin/creat ratio: No results found for: EXTMICROALBC Is patient on PATRICIA inhibitor or angiotensin II receptor julia? yes Lisinopril Peripheral Neuropathy: Negative Denies symptoms associated with neuropathy (numbness and/or tingling) Autonomic Neuropathy: Negative Hypoglycemia unawareness. Senses low BG at <100 mg/dl. Other: Hyperlipidemia: Positive Currently taking: simvastatin (Zocor). LFT's WNL Lab Results Component Value Date AST 21 02/25/2021 ALT 21 02/25/2021 Lab Results Component Value Date EXTCHOL 133 12/27/2019 EXTTRIG 56 12/27/2019 EXTHDL 52 12/27/2019 EXTLDLCALC 70 12/27/2019 Hypertension: Positive. Currently taking: bumetanide (Bumex), lisinopril (Prinivil) and metoprolol (Lopressor, Toprol) BP: 133/75 Cardiac: Positive Atrial fibrillation. On eliquis. Experiencing chest pain No . 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 Healy Vascular: Negative History of None Feet: Last foot exam: 05/09/20 saw podiatry. Follows with Podiatry: Yes Professor Of Theater: Dr. Arroyo History of foot ulceration: No History of amputation: No Thyroid: Lab Results Component Value Date TSH 1.54 02/25/2021 Negative Other: from colon cancer March 2017. Had COVID-19 vaccine in [place]. Plan: 1. Rx changes: Adjust medications as below Humalog insulin: 5-10 units at breakfast; 6-10 units at lunch; 6-10 units at supper Lantus insulin: 30 units at bedtime Use as directed with Humalog insulin before meals and at bedtime. 151-200: 1 units fast acting insulin 201-250: 2 units fast acting insulin 251-300: 3 units fast acting insulin 301-350: 4 units fast acting insulin 351-400: 5 units fast acting insulin above 400: 6 units fast acting insulin Increase Trulicity 1.5 mg weekly 2. Education: Reviewed ABCs of diabetes management (respective goals in parentheses): A1C (7.0-8.0), blood pressure (<130/80), and cholesterol (LDL <100). 3. Compliance at present is estimated to be fair. Efforts to improve compliance (if necessary) willbe directed at increased exercise. Also, will be directed at dietary modifications: Limit starches,carbohydrates and concentrated sugar sources 4. Follow up: 3 months 5. Record blood sugar readings as instructed. Call if BG consistently <70 or >250. [phone] Patient has been checking blood glucoses 4 times daily for the past 90 days. Patient needs to continue checking blood glucoses 4 times daily. Blood glucose readings are used to adjust medication or insulin doses for meals, monitor dietary compliance, and adjust for high or low blood glucoses by patient on a daily basis. Blood glucose readings are reviewed at office visits for adjustment in medication regimen and assistance with dietary management, and other self- management issues including exercise, etc. Prognosis: Good. Duration of need for diabetes testing equipment: Permanent #150 strips/month prescribed. 6. Bring blood sugar meter to follow up appointment. Orders Placed This Encounter Procedures Comprehensive Metabolic Panel Hemoglobin A1c TSH T4, Free documented in this [id number] Miscellaneous Notes* Assessment & Plan Note - Preston Healy MD - 02/27/2021 8:58 AM EDT Associated Problem(s): A-fib (HCC) Patient essentially has asymptomatic atrial fibrillation rate controlled. Did 20 minutes on his elliptical this morning with no cardiac type symptoms. He is happy with exercise capacity no palpitations no syncope near syncope no similar leg swelling. Plan continue oral anticoagulation and rate control plan for his atrial fibrillation discussed other alternatives such as antiarrhythmic therapy ablation but he is essentially asymptomatic unlikely to be able to maintain sinus rhythm and did have a history of sinus bradycardia previously. He is in agreement with this plan. We will see back in 4 months continue to follow closely with PCP. Continue long-term oral anticoagulation and low-dose aspirin therapy. No changes today. documented in this [id number] History of Present illness Narrative* Preston Healy MD - 02/27/2021 8:57 AM EDT [facility] [address] [facility] [address] [facility] [id number] Subjective: Andrew Arnold is a 75 y.o. male seen in the office today for Chief Complaint Patient presents with Follow-up 6 wk f/u- A Fib Overview of Problems Addressed: Problem A-Fib (Hcc) Holter monitor A. fib throughout with rate controlled. Otherwise unremarkable. Echocardiogram unremarkable. Reviewed 2020 New finding EKG January 09, 2021 A. fib patient essentially asymptomatic with it. Did have a history ofA. fib after his coronary bypass grafting with cardioversion at that time. No known recurrent A. fib until today. Wide QRS as before. Tolerates it well has had a little bit of lightheadedness here and there. Heart rate 75. We will check 48-hour Holter monitor Check echocardiogram Start Eliquis 5 mg twice a day Continue aspirin 81 mg daily. Further recommendations pending results of the testing. Assessment & Plan: A-fib (HCC) Patient essentially has asymptomatic atrial fibrillation rate controlled. Did 20 minutes on his elliptical this morning with no cardiac type symptoms. He is happy with exercise capacity no palpitations no syncope near syncope no similar leg swelling. Plan continue oral anticoagulation and rate control plan for his atrial fibrillation discussed other alternatives such as antiarrhythmic therapy ablation but he is essentially asymptomatic unlikely to be able to maintain sinus rhythm and did have a history of sinus bradycardia previously. He is in agreement with this plan. We will see back in 4 months continue to follow closely with PCP. Continue long-term oral anticoagulation and low-dose aspirin therapy. No changes today. Histories: Past Medical History: Diagnosis Date Aortic valve calcification Arrhythmia Atrial fibrillation (HCC) after CABG CAD (coronary artery disease) 3 Vessel Claudication (HCC) Left lower extremity symptoms Diabetes mellitus, type 2 (HCC) Diabetic retinopathy ([facility]) Laser treatment Fractures Hypertension Mitral valve annular calcification Myocardial infarction (HCC) 08/02/2015 Non-ST Obesity Oral cancer (HCC) Pilonidal cyst Subdural hematoma (HCC) 2008 minor trauma while on Plavix at the time. Tendonitis of wrist, right TIA (transient ischemic attack) 2007 was put on plavix then had subdural one year later. Vitreous hemorrhage of left eye (HCC) Past Surgical History: Procedure Laterality Date AORTIC VALVE REPLACEMENT CARDIAC CATHETERIZATION CARDIAC VALVE REPLACEMENT CORONARY ARTERY BYPASS GRAFT 08/13/2015 3 Vessel/YEUNG to the LAD/SVG to obtuse marginal/SVG to a PDA MOUTH SURGERY 2007 Oral cancer TENDON RELEASE DEQUERVAINS Right 12/26/2018 Procedure: TENDON RELEASE DE QUERVAINS RIGHT; Surgeon: Jenaro Oquendo MD; Location: Main OR; Service: Orthopedic Family History Problem Relation Age of Onset COPD Mother Diabetes Father Stroke Paternal Grandmother Social History Tobacco Use Smoking status: Former Smoker Packs/day: 3.00 Years: 12.00 Pack years: 36.00 Quit date: 08/27/1973 Years since quittin.5 Smokeless tobacco: Former User Types: Chew Vaping Use Vaping Use: Never used Substance Use Topics Alcohol use: Not Currently Alcohol/week: 0.0 standard drinks Drug use: No Patient's Medications New Prescriptions No medications on file Previous Medications ACETAMINOPHEN (TYLENOL) 325 MG TABLET Take 650 mg by mouth every 6 (six) hours as needed for pain (1-2 tablets). APIXABAN (ELIQUIS) 5 MG TAB Take 1 (one) tablet (5 mg total) by mouth 2 (two) times a day . ASCORBIC ACID (VITAMIN C) 500 MG CPER Take 500 mg by mouth every other day . ASPIRIN 81 MG EC TABLET Take 1 tablet (81 mg total) by mouth daily. BLOOD SUGAR DIAGNOSTIC (GLUCOSE BLOOD) STRIPS Dx code E11.9 use to check BG 4x daily. BLOOD SUGAR DIAGNOSTIC (RELION PRIME TEST STRIPS) STRIPS E11.65 Use as directed 4 times per day. BUMETANIDE (BUMEX) 1 MG TABLET Take 0.5 (one-half) tablet (0.5 mg total) by mouth daily . DOCUSATE SODIUM (COLACE) 100 MG CAPSULE Take 100 mg by mouth 2 (two) times a day as needed . DULAGLUTIDE (TRULICITY) 0.75 MG/0.5 ML PEN Inject 0.5 mL (0.75 mg total) under the skin once a week. INSULIN GLARGINE (LANTUS U-100 INSULIN) 100 UNIT/ML INJECTION Inject 28 (twenty eight) Units under the skin nightly . INSULIN LISPRO (HUMALOG) 100 UNIT/ML INJECTION USE DIRECTED, APPROXIMATELY 30 UNITS A DAY. . INSULIN SYR/NDL U100 HALF JENARO 0.3 ML 31 GAUGE X 5/16 SYRG Diag code E11.319 Use 4 times daily . INSULIN SYRINGE-NEEDLE U-100 0.3 ML 31 X 5/16 SYRG Use as directed QID. LANCETS MISC Use to check BG QID SolusV2 brand Dx E11.65. LISINOPRIL (PRINIVIL,ZESTRIL) 20 MG TABLET Take 1 (one) tablet (20 mg total) by mouth daily . METOPROLOL SUCCINATE (TOPROL-XL) 25 MG 24 HR TABLET Take 1 (one) tablet (25 mg total) by mouth daily . PEN NEEDLE, DIABETIC 31 GAUGE X 3/16 NDLE Use as directed 4 times daily. . POTASSIUM CHLORIDE 20 MEQ TBER Take 1 (one) tablet (20 mEq total) by mouth every other day . PSYLLIUM (METAMUCIL) 0.52 GRAM CAPSULE Take 2 capsules by mouth as needed . SIMVASTATIN (ZOCOR) 20 MG TABLET Take 1 (one) tablet (20 mg total) by mouth at bedtime . Modified Medications No medications on file Discontinued Medications No medications on file Allergies Allergen Reactions Pioglitazone GI Intolerance Review of Systems Cardiovascular: Negative for chest pain, dyspnea on exertion, leg swelling, palpitations and syncope. Objective: Physical Exam Vitals and nursing note reviewed. Constitutional: General: He is not in acute distress. Appearance: He is well-developed. He is not diaphoretic. HENT: Head: Normocephalic. Eyes: General: No scleral icterus. Comments: Pupils reactive Neck: Vascular: No JVD. Cardiovascular: Rate and Rhythm: Rhythm irregular. Pulses: Radial pulses are 2+ on the right side and 2+ on the left side. Heart sounds: S1 normal and S2 normal. No murmur heard. No gallop. No S3 or S4 sounds. Pulmonary: Effort: No respiratory distress. Breath sounds: Normal breath sounds. No stridor. No wheezing or rales. Abdominal: General: There is no distension. Palpations: Abdomen is soft. Tenderness: There is no abdominal tenderness. There is no guarding. Musculoskeletal: General: No tenderness. Skin: General: Skin is warm and dry. Neurological: Mental Status: He is alert and oriented to person, place, and time. Coordination: Coordination normal. Vitals: Vitals: 02/27/21 0826 BP: 117/64 BP Location: Left arm Patient Position: Sitting Pulse: 78 SpO2: 95% Weight: 105.2 kg (232 lb) Height: 5' 7 Body mass index is 36.34 kg/m . No orders of the defined types were placed in this encounter. Follow Up Ordered: Return in about 4 months (around 06/29/2021). Preston Healy MD * Rosi Manjarrez MA - 02/27/2021 8:26 AM EDT Review of Systems Cardiovascular: Negative for chest pain, dyspnea on exertion, leg swelling, palpitations and syncope. documented in this [id number] Instructions* Patient Instructions* Dayna Johnson RN - 02/27/2021 8:25 AM EDT How to Contact your Care Team: Provider: Dr. Preston Healy MD Silk Screen Layout Drafter: Dayna Johnson RN REFILLS: When in need for refills please call your care team or the office at [phone]. Please include medication name, pharmacy name, and specify 30-day or 90-day supply. Please check with your pharmacy within 24 hours of request for your refill. You must follow up as directed to continue current refills. Thank you! documented in this [id number] Miscellaneous Notes* Telephone Encounter - Dayna Johnson RN - 01/26/2021 1:40 PM EDT Last OV 01/09/21. RX attempted but failed in transmission on 01/09/21 documented in this [id number] Miscellaneous Notes* Assessment & Plan Note - Preston Healy MD - 01/09/2021 9:26 AM EDT Associated Problem(s): S/P aortic valve replacement Reviewed echocardiogram 2019 intact. Trace regurgitation. EF 60 percent by echo 40 percent by nuclear stress test. Nuclear stress test negative for ischemia. 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 * Assessment & Plan Note - Preston Healy MD - 01/09/2021 9:06 AM EDT Associated Problem(s): S/P CABG (coronary artery bypass graft) Denies any chest pain or shortness of breath blood sugar is quite elevated lisinopril dose increased per PCP. Has had a little bit lightheadedness but also A. fib found today. New finding. Rate controlled, oral anticoagulation being started. Renal function normal. No bleeding issues continue low-dose aspirin documented in this [id number] Instructions* Patient Instructions* Sheryl Hooker RN - 01/09/2021 9:07 AM EDT Images from the original note were not included. Atrial Fibrillation: Care Instructions Your Care Instructions Atrial fibrillation is an irregular and often fast heartbeat. Treating this condition is important for several reasons. It can cause blood clots, which can travel from your heart to your brain and cause a stroke. If you have a fast heartbeat, you may feel lightheaded, dizzy, and weak. An irregular heartbeat can also increase your risk for heart failure. Atrial fibrillation is often the result of another heart condition, such as high blood pressure or coronary artery disease. Making changes to improve your heart condition will help you stay healthy and active. Follow-up care is a mata part of your treatment and safety. Be sure to make and go to all appointments, and call your doctor if you are having problems. It's also a good idea to know your test resultsand keep a list of the medicines you take. How can you care for yourself at home? Medicines Take your medicines exactly as prescribed. Call your doctor if you think you are having a problem with your medicine. You will get more details on the specific medicines your doctor prescribes. If your doctor has given you a blood thinner to prevent a stroke, be sure you get instructions about how to take your medicine safely. Blood thinners can cause serious bleeding problems. Do not take any vitamins, qpvd-bwa-gcsntxv drugs, or herbal products without talking to your doctorfirst. Lifestyle changes Do not smoke. Smoking can increase your chance of a stroke and heart attack. If you need help quitting, talk to your doctor about stop-smoking programs and medicines. These can increase your chances of quitting for good. Eat a heart-healthy diet. Stay at a healthy weight. Lose weight if you need to. Limit alcohol to 2 drinks a day for men and 1 drink a day for women. Too much alcohol can cause health problems. Avoid colds and flu. Get a pneumococcal vaccine shot. If you have had one before, ask your doctor whether you need another dose. Get a flu shot every year. If you must be around people with colds or flu, wash your hands often. Activity If your doctor recommends it, get more exercise. Walking is a good choice. Bit by bit, increase theamount you walk every day. Try for at least 30 minutes on most days of the week. You also may want to swim, bike, or do other activities. Your doctor may suggest that you join a cardiac rehabilitation program so that you can have help increasing your physical activity safely. Start light exercise if your doctor says it is okay. Even a small amount will help you get stronger, have more energy, and manage stress. Walking is an easy way to get exercise. Start out by walking a little more than you did in the hospital. Gradually increase the amount you walk. When you exercise, watch for signs that your heart is working too hard. You are pushing too hard ifyou cannot talk while you are exercising. If you become short of breath or dizzy or have chest pain, sit down and rest immediately. Check your pulse regularly. Place two fingers on the artery at the palm side of your wrist, in linewith your thumb. If your heartbeat seems uneven or fast, talk to your doctor. When should you call for help? Call 911 anytime you think you may need emergency care. For example, call if: You have symptoms of a heart attack. These may include: ? Chest pain or pressure, or a strange feeling in the chest. ? Sweating. ? Shortness of breath. ? Nausea or vomiting. ? Pain, pressure, or a strange feeling in the back, neck, jaw, or upper belly or in one or both shoulders or arms. ? Lightheadedness or sudden weakness. ? A fast or irregular heartbeat. After you call 911, the plastic cnc machine operator may tell you to chew 1 adult-strength or 2 to 4 low-dose aspirin. Wait for an ambulance. Do not try to drive yourself. You have symptoms of a stroke. These may include: ? Sudden numbness, tingling, weakness, or loss of movement in your face, arm, or leg, especially ononly one side of your body. ? Sudden vision changes. ? Sudden trouble speaking. ? Sudden confusion or trouble understanding simple statements. ? Sudden problems with walking or balance. ? A sudden, severe headache that is different from past headaches. You passed out (lost consciousness). Call your doctor now or seek immediate medical care if: You have new or increased shortness of breath. You feel dizzy or lightheaded, or you feel like you may faint. Your heart rate becomes irregular. You can feel your heart flutter in your chest or skip heartbeats. Tell your doctor if these symptoms are new or worse. Watch closely for changes in your health, and be sure to contact your doctor if you have any problems. Where can you learn more? Log into your personal health record on [email or web address] and enter U020 in the Education box to learn more about Atrial Fibrillation: Care Instructions. Current as of: March 10, 2020 Content Version: 12.8 Private Practice. Care instructions adapted under license by your healthcare professional. If you have questions about a medical condition or this instruction, always ask your healthcare professional. Private Practice disclaims any warranty or liability for your use of this information. Apixaban Printed on 2021-01-09 You must carefully read the Consumer Information Use and Disclaimer below in order to understand and correctly use this information Pronunciation (a PIX a ban) Brand Names: [place] Eliquis; Eliquis DVT/PE Starter Pack Brand Names: Lamberto Eliquis Warning Do not stop taking this drug without talking to the doctor who ordered it for you. Stopping this drug when you are not supposed to may raise the chance of blood clots. This includes stroke in certainpeople. You may need to stop this drug before certain types of dental or health care. Your doctor will tell you when to start taking it again. Follow what your doctor tells you closely. People who have any type of spinal or epidural procedure are more likely to have bleeding problems around the spine when already on this drug. This bleeding rarely happens, but can lead to not being able to move body (paralysis) long- term or paralysis that will not go away. The risk is raised in people who have problems with their spine, a certain type of epidural catheter, or have had spinal surgery. The risk is also raised in people who take any other drugs that may affect blood clotting, like blood-thinner drugs (like warfarin), aspirin, or nonsteroidal anti-inflammatory drugs (NSAIDs) like ibuprofen or naproxen. Tell your doctor you use this drug before you have a spinal or epidural procedure. Call your doctorright away if you have any signs of nerve problems like back pain, numbness or tingling, muscle weakness, paralysis, or loss of bladder or bowel control. Talk with your doctor if you have recently had or will be having a spinal or epidural procedure. Some time may need to pass between the use of this drug and your procedure. Talk with your doctor. What is this drug used for? It is used to treat or prevent blood clots. What do I need to tell my doctor BEFORE I take this drug? If you are allergic to this drug; any part of this drug; or any other drugs, foods, or substances. Tell your doctor about the allergy and what signs you had. If you have any of these health problems: Active bleeding or liver problems. If you have antiphospholipid syndrome (APS). If you have had a heart valve replaced. If you are taking any of these drugs: Carbamazepine, itraconazole, ketoconazole, phenytoin, rifampin, ritonavir, or [place]'s wort. If you are breast-feeding. Do not breast-feed while you take this drug. This is not a list of all drugs or health problems that interact with this drug. Tell your doctor and pharmacist about all of your drugs (prescription or OTC, natural products, vitamins) and health problems. You must check to make sure that it is safe for you to take this drug with all of your drugs and health problems. Do not start, stop, or change the dose of any drug withoutchecking with your doctor. What are some things I need to know or do while I take this drug? Tell all of your health care providers that you take this drug. This includes your doctors, nurses,pharmacists, and dentists. This drug may need to be stopped before certain types of surgery as yourdoctor has told you. If this drug is stopped, your doctor will tell you when to start taking this drug again after your surgery or procedure. Have blood work checked as you have been told by the doctor. Talk with the doctor. Do not run out of this drug. You may bleed more easily. Be careful and avoid injury. Use a soft toothbrush and an electric razor. Rarely, some bleeding problems have been deadly. If you fall or hurt yourself, or if you hit your head, call your doctor right away. Talk with your doctor even if you feel fine. Tell your doctor if you are or plan on getting . You will need to talk about the benefits and risks of using this drug while you are . What are some side effects that I need to call my doctor about right away? WARNING/CAUTION: Even though it may be rare, some people may have very bad and sometimes deadly side effects when taking a drug. Tell your doctor or get medical help right away if you have any of thefollowing signs or symptoms that may be related to a very bad side effect: Signs of an allergic reaction, like rash; hives; itching; red, swollen, blistered, or peeling skin with or without fever; wheezing; tightness in the chest or throat; trouble breathing, swallowing, ortalking; unusual hoarseness; or swelling of the mouth, face, lips, tongue, or throat. Signs of bleeding like throwing up or coughing up blood; vomit that looks like coffee grounds; blood in the urine; black, red, or tarry stools; bleeding from the gums; abnormal vaginal bleeding; bruises without a cause or that get bigger; or bleeding you cannot stop. Weakness on 1 side of the body, trouble speaking or thinking, change in balance, drooping on one side of the face, or blurred eyesight. Dizziness or passing out. Feeling tired or weak. Feeling confused. Headache. Joint pain or swelling. Chest pain or pressure. What are some other side effects of this drug? All drugs may cause side effects. However, many people have no side effects or only have minor sideeffects. Call your doctor or get medical help if you have any side effects that bother you or do not go away. These are not all of the side effects that may occur. If you have questions about side effects, call your doctor. Call your doctor for medical advice about side effects. You may report side effects to your national health agency. How is this drug best taken? Use this drug as ordered by your doctor. Read all information given to you. Follow all instructionsclosely. Take with or without food. If you have trouble swallowing this drug, it can be crushed and mixed in water, apple juice, or applesauce. If you crush and mix this drug, take it within 4 hours of mixing. Keep taking this drug as you have been told by your doctor or other health care provider, even if you feel well. Those who have feeding tubes may use this drug. Use as you have been told. Flush the feeding tube after this drug is given. What do I do if I miss a dose? Take a missed dose as soon as you think about it. If it is close to the time for your next dose, skip the missed dose and go back to your normal time. Do not take 2 doses at the same time or extra doses. How do I store and/or throw out this drug? Store at room temperature in a dry place. Do not store in a bathroom. Keep all drugs in a safe place. Keep all drugs out of the reach of children and pets. Throw away unused or drugs. Do not flush down a toilet or pour down a drain unless you are told to do so. Check with your pharmacist if you have questions about the best way to throw out drugs. There may be drug take-back programs in your area. General drug facts If your symptoms or health problems do not get better or if they become worse, call your doctor. Do not share your drugs with others and do not take anyone else's drugs. Some drugs may have another patient information leaflet. If you have any questions about this drug,please talk with your doctor, nurse, pharmacist, or other health care provider. If you think there has been an overdose, call your poison control center or get medical care right away. Be ready to tell or show what was taken, how much, and when it happened. documented in this [id number] History of Present illness Narrative* Preston Healy MD - 01/09/2021 9:06 AM EDT [facility] [address] [facility] [address] [facility] [id number] Subjective: Andrew Arnold is a 75 y.o. male seen in the office today for Chief Complaint Patient presents with Annual Exam no complaints. Overview of Problems Addressed: Problem A-Fib (Hcc) New finding EKG January 09, 2021 A. fib patient essentially asymptomatic with it. Did have a history ofA. fib after his coronary bypass grafting with cardioversion at that time. No known recurrent A. fib until today. Wide QRS as before. Tolerates it well has had a little bit of lightheadedness here and there. Heart rate 75. We will check 48-hour Holter monitor Check echocardiogram Start Eliquis 5 mg twice a day Continue aspirin 81 mg daily. Further recommendations pending results of the testing. S/P Cabg (Coronary Artery Bypass Graft) Nuclear stress test December 2018 echocardiogram November 2018 reviewed. ON 08/11/[address] SONAM MÉNDEZ History of coronary bypass grafting 3 History of tissue aortic valve replacement early August 2015. History of postoperative persistent atrial fibrillation no preop afib, history of amiodarone therapy started August 2015. Post op. Amiodarone discontinued Summer 2015. Warfarin stopped 04/2016. History of cardioversion October 2015. S/P Aortic Valve Replacement 08/26 tissue AVR. Assessment & Plan: S/P CABG (coronary artery bypass graft) Denies any chest pain or shortness of breath blood sugar is quite elevated lisinopril dose increased per PCP. Has had a little bit lightheadedness but also A. fib found today. New finding. Rate controlled, oral anticoagulation being started. Renal function normal. No bleeding issues continue low-dose aspirin S/P aortic valve replacement Reviewed echocardiogram 2018 intact. Trace regurgitation. EF 60 percent by echo 40 percent by nuclear stress test. Nuclear stress test negative for ischemia. 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 Histories: Past Medical History: Diagnosis Date Aortic valve calcification Arrhythmia Atrial fibrillation (HCC) after CABG CAD (coronary artery disease) 3 Vessel Claudication (HCC) Left lower extremity symptoms Diabetes mellitus, type 2 (HCC) Diabetic retinopathy (HCC) Laser treatment Fractures Hypertension Mitral valve annular calcification Myocardial infarction (HCC) 08/02/2015 Non-ST Obesity Oral cancer (HCC) Pilonidal cyst Subdural hematoma (HCC) 2008 minor trauma while on Plavix at the time. Tendonitis of wrist, right TIA (transient ischemic attack) 2007 was put on plavix then had subdural one year later. Vitreous hemorrhage of left eye (HCC) Past Surgical History: Procedure Laterality Date AORTIC VALVE REPLACEMENT CARDIAC CATHETERIZATION CARDIAC VALVE REPLACEMENT CORONARY ARTERY BYPASS GRAFT 08/13/2015 3 Vessel/YEUNG to the LAD/SVG to obtuse marginal/SVG to a PDA MOUTH SURGERY 2007 Oral cancer TENDON RELEASE DEQUERVAINS Right 12/26/2018 Procedure: TENDON RELEASE DE QUERVAINS RIGHT; Surgeon: Jenaro Oquendo MD; Location: Main OR; Service: Orthopedic Family History Problem Relation Age of Onset COPD Mother Diabetes Father Stroke Paternal Grandmother Social History Tobacco Use Smoking status: Former Smoker Packs/day: 3.00 Years: 12.00 Pack years: 36.00 Quit date: 08/27/1973 Years since quittin.4 Smokeless tobacco: Former User Types: Chew Vaping Use Vaping Use: Never used Substance Use Topics Alcohol use: Not Currently Alcohol/week: 0.0 standard drinks Drug use: No Patient's Medications New Prescriptions No medications on file Previous Medications ACETAMINOPHEN (TYLENOL) 325 MG TABLET Take 650 mg by mouth every 6 (six) hours as needed for pain (1-2 tablets). APIXABAN (ELIQUIS) 5 MG TAB Take 5 mg by mouth 2 (two) times a day . ASCORBIC ACID (VITAMIN C) 500 MG CPER Take 500 mg by mouth every other day . ASPIRIN 81 MG EC TABLET Take 1 tablet (81 mg total) by mouth daily. BLOOD SUGAR DIAGNOSTIC (GLUCOSE BLOOD) STRIPS Dx code E11.9 use to check BG 4x daily. BLOOD SUGAR DIAGNOSTIC (RELION PRIME TEST STRIPS) STRIPS E11.65 Use as directed 4 times per day. DOCUSATE SODIUM (COLACE) 100 MG CAPSULE Take 100 mg by mouth 2 (two) times a day as needed . DULAGLUTIDE (TRULICITY) 0.75 MG/0.5 ML PEN Inject 0.5 mL (0.75 mg total) under the skin once a week. INSULIN GLARGINE (LANTUS U-100 INSULIN) 100 UNIT/ML INJECTION Inject 28 (twenty eight) Units under the skin nightly . INSULIN LISPRO (HUMALOG) 100 UNIT/ML INJECTION USE DIRECTED, APPROXIMATELY 30 UNITS A DAY. . INSULIN SYR/NDL U100 HALF JENARO 0.3 ML 31 GAUGE X 5/16 SYRG Diag code E11.319 Use 4 times daily . INSULIN SYRINGE-NEEDLE U-100 0.3 ML 31 X 5/16 SYRG Use as directed QID. LANCETS MISC Use to check BG QID SolusV2 brand Dx E11.65. LISINOPRIL (PRINIVIL,ZESTRIL) 20 MG TABLET Take 1 (one) tablet (20 mg total) by mouth daily . PEN NEEDLE, DIABETIC 31 GAUGE X 3/16 NDLE Use as directed 4 times daily. . POTASSIUM CHLORIDE 20 MEQ TBER Take 1 (one) tablet (20 mEq total) by mouth every other day . PSYLLIUM (METAMUCIL) 0.52 GRAM CAPSULE Take 2 capsules by mouth as needed . Modified Medications Modified Medication Previous Medication BUMETANIDE (BUMEX) 1 MG TABLET bumetanide (BUMEX) 1 MG tablet Take 0.5 (one-half) tablet (0.5 mg total) by mouth daily . TAKE 1/2 (ONE-HALF) TABLET BY MOUTH EVERY OTHER DAY METOPROLOL SUCCINATE (TOPROL-XL) 25 MG 24 HR TABLET metoprolol succinate (TOPROL-XL) 25 MG 24 hr tablet Take 1 (one) tablet (25 mg total) by mouth daily . Take 1 (one) tablet (25 mg total) by mouth daily. SIMVASTATIN (ZOCOR) 20 MG TABLET simvastatin (ZOCOR) 20 MG tablet Take 1 (one) tablet (20 mg total) by mouth at bedtime . Take 1 (one) tablet (20 mg total) by mouth at bedtime . Discontinued Medications No medications on file Allergies Allergen Reactions Pioglitazone GI Intolerance ROS Objective: Physical Exam Vitals and nursing note reviewed. Constitutional: General: He is not in acute distress. Appearance: He is well-developed. He is not diaphoretic. HENT: Head: Normocephalic. Eyes: General: No scleral icterus. Comments: Pupils reactive Neck: Vascular: No JVD. Cardiovascular: Rate and Rhythm: Rhythm irregular. Pulses: Radial pulses are 2+ on the right side and 2+ on the left side. Heart sounds: S1 normal and S2 normal. No murmur heard. No gallop. No S3 or S4 sounds. Pulmonary: Effort: No respiratory distress. Breath sounds: Normal breath sounds. No stridor. No wheezing or rales. Abdominal: General: There is no distension. Palpations: Abdomen is soft. Tenderness: There is no abdominal tenderness. There is no guarding. Musculoskeletal: General: No tenderness. Skin: General: Skin is warm and dry. Neurological: Mental Status: He is alert and oriented to person, place, and time. Coordination: Coordination normal. Vitals: Vitals: 01/09/21 0831 BP: 116/72 BP Location: Right arm Patient Position: Sitting Pulse: 81 SpO2: 93% Weight: 98 kg (216 lb) Height: 5' 7 Body mass index is 33.83 kg/m . Orders Placed This Encounter Procedures Extended Holter Monitor (3-7 days) Standing Status: Future Standing Expiration Date: 03/12/2022 Order Specific Question: Length of Duration: Answer: 3 days Comments: 2 days Order Specific Question: Release to patient Answer: Immediate ECG 12 Lead Order Specific Question: Release to patient Answer: Immediate Echocardiogram complete Standing Status: Future Standing Expiration Date: 03/12/2022 Order Specific Question: Reason for exam Answer: Afib/Aflutter Order Specific Question: Release to patient Answer: Immediate Follow Up Ordered: Return in about 6 weeks (around 02/20/2021). Preston Healy MD * Rosi Manjarrez MA - 01/09/2021 8:31 AM EDT Review of Systems Cardiovascular: Negative for chest pain, claudication, cyanosis, dyspnea on exertion, irregular heartbeat, leg swelling, near-syncope, orthopnea, palpitations and syncope. documented in this [id number] Instructions* Patient Instructions* Radha Hughes CNP - 01/05/2021 9:22 AM EDT Plan: 1. Rx changes: Adjust medications as below Humalog insulin: 5 units at breakfast; 6 units at lunch; 6 units at supper Lantus insulin: 28 units at bedtime Use as directed with Humalog insulin before meals and at bedtime. 151-200: 1 units fast acting insulin 201-250: 2 units fast acting insulin 251-300: 3 units fast acting insulin 301-350: 4 units fast acting insulin 351-400: 5 units fast acting insulin above 400: 6 units fast acting insulin Start Trulicity 0.75 mg weekly documented in this [id number] History of Present illness Narrative* Radha Hughes CNP - 01/05/2021 9:10 AM EDT Images from the original note were not included. Patient ID: Andrew Arnold is a 75 y.o. male 1945 Subjective: Andrew Arnold presents for follow-up of Type 2 diabetes Patient has had diabetes for 20 years. Diagnosed in 2000 Outpatient Medications Marked as Taking for the 01/05/21 encounter (Office Visit) with Radha Hughes CNP: acetaminophen (TYLENOL) 325 MG tablet, Take 650 mg by mouth every 6 (six) hours as needed for pain (1-2 tablets). ascorbic Acid (VITAMIN C) 500 mg CpER, Take 500 mg by mouth every other day . aspirin 81 MG EC tablet, Take 1 tablet (81 mg total) by mouth daily. blood sugar diagnostic (glucose blood) strips, Dx code E11.9 use to check BG 4x daily. blood sugar diagnostic (RELION PRIME TEST STRIPS) strips, E11.65 Use as directed 4 times per day. bumetanide (BUMEX) 1 MG tablet, TAKE 1/2 (ONE-HALF) TABLET BY MOUTH EVERY OTHER DAY docusate sodium (COLACE) 100 MG capsule, Take 100 mg by mouth 2 (two) times a day as needed . insulin glargine (Lantus U-100 Insulin) 100 unit/mL injection, Use as directed approx 30 u per day total. . insulin lispro (HumaLOG) 100 unit/mL injection, USE DIRECTED, APPROXIMATELY 20 UNITS A DAY. . insulin syr/ndl U100 half jenaro 0.3 mL 31 gauge x 5/16 Syrg, Diag code E11.319 Use 4 times daily . insulin syringe-needle U-100 0.3 mL 31 x 5/16 Syrg, Use as directed QID. lancets Mis, Use to check BG QID SolusV2 brand Dx E11.65. lisinopriL (PRINIVIL,ZESTRIL) 20 MG tablet, Take 1 (one) tablet (20 mg total) by mouth daily . metoprolol succinate (TOPROL-XL) 25 MG 24 hr tablet, Take 1 (one) tablet (25 mg total) by mouth daily . pen needle, diabetic 31 gauge x 3/16 Ndle, Use as directed 4 times daily. . pneumococcal conj. 13-valent (PREVNAR-13) 0.5 mL vaccine, Sign this order in conjunction with the immunization order to satisfy [place] Board of Pharmacy Positive ID requirements for immunization orders . potassium chloride 20 mEq TbER, Take 1 (one) tablet (20 mEq total) by mouth every other day . psyllium (METAMUCIL) 0.52 gram capsule, Take 2 capsules by mouth as needed . simvastatin (ZOCOR) 20 MG tablet, Take 1 (one) tablet (20 mg total) by mouth at bedtime . Review of Systems: Review of Systems Constitutional: Negative for fatigue and unexpected weight change. HENT: Positive for hearing loss. Negative for trouble swallowing. Eyes: Negative for visual disturbance. Respiratory: Negative for cough and shortness of breath. Cardiovascular: Negative for chest pain and leg swelling. Gastrointestinal: Negative for abdominal pain, constipation, diarrhea, nausea and vomiting. Endocrine: Negative for polydipsia, polyphagia and polyuria. Genitourinary: Negative for frequency and urgency. Skin: Negative for wound. Neurological: Positive for weakness (pain with walking). Negative for numbness and headaches. Psychiatric/Behavioral: Negative for agitation and sleep disturbance. The patient is not nervous/anxious. The following portions of the patient's history were reviewed and updated as appropriate: allergies, current medications, past family history, past medical history, past social history, past surgicalhistory and problem list. Objective: BP 130/77 Pulse 77 Ht 5' 7 Wt 104.7 kg (230 lb 13.2 oz) BMI 36.15 kg/m Wt Readings from Last 3 Encounters: 01/05/21 104.7 kg (230 lb 13.2 oz) 01/05/21 104.7 kg (230 lb 12.8 oz) 12/16/20 104.6 kg (230 lb 9.6 oz) Physical Exam: General: alert, appears stated age and cooperative Eyes: conjunctivae/corneas clear. PERRL, EOM's intact. Neck: no adenopathy, supple, symmetrical, trachea midline. Thyroid: No thyromegaly appreciated Lung: clear to auscultation bilaterally Heart: regular rate and rhythm, S1, S2 normal, no murmur, click, rub or gallop Extremities: extremities normal, atraumatic, no cyanosis or edema Feet: Dry skin, Bilateral Feet: warm, good capillary refill and normal DP. Monofilament exam Normal, bilateral lower extremities. Neuro: normal without focal findings, mental status, speech normal, alert and oriented x3 and [facility] Laboratory Review: BP 130/77 Pulse 77 Ht 5' 7 Wt 104.7 kg (230 lb 13.2 oz) BMI 36.15 kg/m Lab Results Component Value Date HGBA1C 12.5 (H) 12/17/2020 Glucose (mg/dL) Date Value 12/17/2020 376 (H) Creatinine (mg/dL) Date Value 12/17/2020 1.18 05/05/2020 0.94 Lab Results Component Value Date CHOL 124 12/17/2020 TRIG 60 12/17/2020 HDL 56 12/17/2020 LDLCALC 56 12/17/2020 Lab Results Component Value Date TSH 2.05 12/17/2020 Lab Results Component Value Date WBC 6.30 12/17/2020 HGB 13.4 (L) 12/17/2020 HCT 41.1 12/17/2020 MCV 82.4 12/17/2020 PLT 175 12/17/2020 Date: 12/17/20 *labs reviewed 01/05/21 Hgb A1c: 12.5% Creat: 1.18; eGFR: 60 AST: 13; ALT: 20 K: 4.6 CBC: WBC:6.30; Hgb: 13.4; Hct: 41.1; Plt: 175 Tchol: 124; Tri ; HDL: 56 ; LDL: 56 TSH: 2.05 Microalbumin/creatinine Ratio: 41 05/05/20 Hgb A1c: 8.9% Creat: 0.94; eGFR: >60 K: 4.0 TSH: 2.39 ; FreeT4: 1.10 12/27/19 Hgb A1c: 9.0% Creat: 0.98; eGFR: >60 AST: 14; ALT: 21 K: 4.6 CBC: WBC:7.0; Hgb: 14.0; Hct: 42.7; Plt: 201 Tchol: 133; Tri ; HDL: 52 ; LDL: 70 TSH: 2.72 ; FreeT4: 1.05 02/20/19 Hgb A1c: 8.8% Creat: 1.0; eGFR: >60 AST: 22; ALT: 25 K: 4.1 10/23/2018 Hemoglobin A1c 9.7% Creatinine 1.00, EGFR >60, K4.2 AST 22, ALT 31 Microalbumin/creatinine ratio: 12 TSH 2.03, free T4 0.87 T cholesterol 118, TG 49, HDL 51, LDL 57 CBC: H/H 14.3/42.6, WBC 5.2, platelets 180,000 06/20/18 Hgb A1c: 6.3% Creat: 0.9; eGFR: >60 AST: 25; ALT: 17 K: 4.3 Assessment/Plan: Dx: No diagnosis found. Type 2 diabetes, under fair control Currently taking: No oral hypoglycemic medications Humalog insulin: 4-8 units at breakfast; 5-8 units at lunch; 5-86 units at supper Lantus insulin: 25 units at bedtime Current Hemoglobin A1C= Lab Results Component Value Date HGBA1C 12.5 (H) 12/17/2020 HGBA1C 8.9 05/05/2020 HGBA1C 9.0 12/27/2019 Weight trend: has increased 17 lbs. Current diet: carb controlled, avoiding concentrated sugars Current exercise: none Current monitoring regimen: home blood tests - 4 times daily Home blood sugar records: Fasting B-407 Pre-lunch B-294 Pre-supper B Bedtime BG: Any episodes of hypoglycemia? Occasionally, typically <1 time weekly. Aware of lows. NOTES: Hgb A1c increased significantly to 12.5% Patient currently on QID insulin. He would benefit from slight increase in insulin doses and addition of Trulicity to aid in dietary modifications, weight loss and glycemic control. PLAN: See below Retinopathy: Positive: Background diabetic retinopathy and Laser Treatment Exam within last 12 months: yes Date: 12/31/19 Store Administrative Assistant/Lang Interpreter: Other Ophthalmologic Conditions: None known Nephropathy: Negative Creat: 1.18 12/29 Lab Results Component Value Date CREATININE 1.18 12/17/2020 EXTEGFR >60 12/27/2019 EXTEGFRAFAME >60 12/27/2019 Microlbumin/creat ratio: No results found for: EXTMICROALBC Is patient on PATRICIA inhibitor or angiotensin II receptor julia? yes Lisinopril Peripheral Neuropathy: Negative Denies symptoms associated with neuropathy (numbness and/or tingling) Autonomic Neuropathy: Negative Hypoglycemia unawareness. Senses low BG at <100 mg/dl. Other: Hyperlipidemia: Positive Currently taking: simvastatin (Zocor). LFT's WNL Lab Results Component Value Date AST 13 12/17/2020 ALT 20 12/17/2020 Lab Results Component Value Date EXTCHOL 133 12/27/2019 EXTTRIG 56 12/27/2019 EXTHDL 52 12/27/2019 EXTLDLCALC 70 12/27/2019 Hypertension: Positive. Currently taking: bumetanide (Bumex), lisinopril (Prinivil) and metoprolol (Lopressor, Toprol) BP: 130/77 Cardiac: Positive Experiencing chest pain No . 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 Healy Vascular: Negative History of None Feet: Last foot exam: 05/09/20 saw podiatry. Follows with Podiatry: Yes Professor Of Theater: Dr. Arroyo History of foot ulceration: No History of amputation: No Thyroid: Lab Results Component Value Date TSH 2.05 12/17/2020 Negative Other: from colon cancer March 2017. Plan: 1. Rx changes: Adjust medications as below Humalog insulin: 5 units at breakfast; 6 units at lunch; 6 units at supper Lantus insulin: 28 units at bedtime Use as directed with Humalog insulin before meals and at bedtime. 151-200: 1 units fast acting insulin 201-250: 2 units fast acting insulin 251-300: 3 units fast acting insulin 301-350: 4 units fast acting insulin 351-400: 5 units fast acting insulin above 400: 6 units fast acting insulin Start Trulicity 0.75 mg weekly 2. Education: Reviewed ABCs of diabetes management (respective goals in parentheses): A1C (7.0-8.0), blood pressure (<130/80), and cholesterol (LDL <100). 3. Compliance at present is estimated to be fair. Efforts to improve compliance (if necessary) willbe directed at increased exercise. Also, will be directed at dietary modifications: Limit starches,carbohydrates and concentrated sugar sources 4. Follow up: 4 months 5. Record blood sugar readings as instructed. Call if BG consistently <70 or >250. [phone] Mr. Arnold would benefit from [employer] continuous glucose monitoring system. Patient has had Type 2 diabetes for >20 years. Complications include diabetic retinopathy Patient is currently managed with: insulin injections Patient has been checking their blood sugar 4 times per day Patient is positive for a history of reoccurring hypoglycemia <50. Patient is predisposed to hypoglycemia, and has had 1 hypoglycemic episodes in the last 7-14 days. Patient's most recent Hgb A1c was 9% on 09/27 Patient's HGb is <6.0% or >8.5% Patient currently takes humalog and lantus insulin injections 4 times daily. Patient is negative for a history of hypoglycemic unawareness Patient has inadequate control despite compliance with multiple alterations in insulin doses/medication regimen. Patient has been checking blood glucoses 4 times daily for the past 90 days. Patient needs to continue checking blood glucoses 4 times daily. Blood glucose readings are used to adjust medication or insulin doses for meals, monitor dietary compliance, and adjust for high or low blood glucoses by patient on a daily basis. Blood glucose readings are reviewed at office visits for adjustment in medication regimen and assistance with dietary management, and other self- management issues including exercise, etc. Prognosis: Good. Duration of need for diabetes testing equipment: Permanent #150 strips/month prescribed. 6. Bring blood sugar meter to follow up appointment. Orders Placed This Encounter Procedures Comprehensive Metabolic Panel Hemoglobin A1c T4, Free TSH Electronically Signed by: Radha Hughes, EXCELLENCE MANAGER documented in this [id number] Miscellaneous Notes* Assessment & Plan Note - Vivien Foreman MD - 01/05/2021 9:09 AM EDT Associated Problem(s): Type 2 diabetes mellitus with retinopathy of both eyes, with long-term current use of insulin (HCC) Poorly controlled diabetes at this time with A1c 2 weeks ago 12.5%. Patient noncompliant on his current insulin regimen premeal. -Discussed with patient implications of poorly controlled diabetes at this time -Discussed at length lifestyle changes with low-carb diet and exercise. -Discussed with patient today potential addition of SGLT2 inhibitor versus GLP-1 agonist addition for added cardiac benefit as well as potential weight loss effect which the patient is interested in. -Following up with endocrine today and will further discuss options to help control his diabetes. -Background diabetic retinopathy with laser treatment last was in December 2019 -Last foot exam in April 2020 seen podiatry for it with Dr. Arroyo.\ -Prevnar today PCV13 -On moderate strength statin with good LDL goal less than 70 as well as aspirin 81 mg * Assessment & Plan Note - Vivien Foreman MD - 01/05/2021 9:07 AM EDT Associated Problem(s): Hypertension Chronic , therapeutic range on increased lisinopril of 20 mg - continue on the same regimen - continue to monitor at home Follow up with lifestyle modifications that was discussed today at length with salt restriction andexercise on his elliptical now up to 20 mins daily documented in this [id number] Instructions* Patient Instructions* Vivien Foreman MD - 01/05/2021 8:56 AM EDT Problem List Items Addressed This Visit Endocrine Type 2 diabetes mellitus with retinopathy of both eyes, with long-term current use of insulin (HCC)- Primary Relevant Medications pneumococcal conj. 13-valent (PREVNAR-13) 0.5 mL vaccine Other Relevant Orders Pneumococcal conjugate vaccine 13-valent (PCV-13) Cardiovascular and Mediastinum Hypertension Relevant Medications lisinopriL (PRINIVIL,ZESTRIL) 20 MG tablet Other Visit Diagnoses Encounter for immunization Relevant Orders Pneumococcal conjugate vaccine 13-valent (PCV-13) If any referrals were placed at the time of your visit please allow 2 weeks for processing. If you haven't heard from anyone within 2 weeks please contact my office so we can look into the status of your referral. If you were given any labs today please ensure they are completed according to the directions given. Once labs are completed please allow 1-2 weeks for us to receive the results, review them, and letyou know what steps, if any, are needed next. If you haven't heard from us after that please call to inquire. If labs were ordered to be done PRIOR to your next visit we will discuss the results at the time ofyour office visit. If any procedures or imaging studies were ordered that must be prior authorized please give us 2 weeks to get them approved. Once approved someone should call you to schedule them or give you a date and time that they were scheduled for. If you haven't heard anything within 2 weeks of the office visit please call the office so we can look into their status. Customer Service/Billing Questions: [phone] [facility] Assistance: [phone] or [phone] Financial Assistance: [phone] or [phone] As of July 16, 2019 my schedule will be changing: Tuesday 7 am to 5 pm Tuesday 7 am to 5 pm Tuesday closed 7 am to 5 pm Tuesday 7 am to 1 pm documented in this [id number] History of Present illness Narrative* Vivien Foreman MD - 01/05/2021 8:33 AM EDT Chief Complaint Patient presents with Follow-up 2 WEEK FOR BP AND BALANCE ISSUES HPI: Andrew Arnold is a 75-year-old gentleman presenting today for BP check. PMH of CAD s/p CABG bypass grafting x3, s/p AVR, postoperative A. fib s/p cardioversion, hypertension, hyperlipidemia, diabetes type 2 complicated with diabetic retinopathy, obesity, oral cancer, subdural hematoma, TIA Diabetes type 2: Was diagnosed in 2000, currently on Lantus 24 units at bedtime and Humalog total 20 units daily 46 units with meals. Last A1c was 8.9 in 04/2020. Background diabetic retinopathy with laser treatment last was in December 2019 Last foot exam in April 2020 seen podiatry for it with Dr. Arroyo. Has an appointment with endocrinology for follow up today after this visit. A1c checked 2 weeks ago was 12.5% , has not been compliant on any dietary restrictions or checking his sugars pre-meal to add more insulin. Had a BS reading of 400 the other day from just eating verysmall amount of sweets. Interested to get his life back together and is aware of the implications of staying uncontrolled like that on his heart and future stroke risk. HTN: Was previously controlled on lisinopril 10 mg , last visit was borderline uncontrolled. Increased lisinopril to 20 mg and has been feeling better and denies any concerns for CP, SOB, POLLACK, blurry vision , tingling/ numbness in extremities. Past Medical History: Diagnosis Date Aortic valve calcification Arrhythmia Atrial fibrillation (HCC) after CABG CAD (coronary artery disease) 3 Vessel Claudication (HCC) Left lower extremity symptoms Diabetes mellitus, type 2 (HCC) Diabetic retinopathy (HCC) Laser treatment Fractures Hypertension Mitral valve annular calcification Myocardial infarction (HCC) 08/02/2015 Non-ST Obesity Oral cancer (HCC) Pilonidal cyst Subdural hematoma (HCC) 2008 minor trauma while on Plavix at the time. Tendonitis of wrist, right TIA (transient ischemic attack) 2007 was put on plavix then had subdural one year later. Vitreous hemorrhage of left eye (HCC) Past Surgical History: Procedure Laterality Date AORTIC VALVE REPLACEMENT CARDIAC CATHETERIZATION CARDIAC VALVE REPLACEMENT CORONARY ARTERY BYPASS GRAFT 08/13/2015 3 Vessel/YEUNG to the LAD/SVG to obtuse marginal/SVG to a PDA MOUTH SURGERY 2007 Oral cancer TENDON RELEASE DEQUERVAINS Right 12/26/2018 Procedure: TENDON RELEASE DE QUERVAINS RIGHT; Surgeon: Jenaro Oquendo MD; Location: Main OR; Service: Orthopedic Family History Problem Relation Age of Onset COPD Mother Diabetes Father Stroke Paternal Grandmother Social History Tobacco Use Smoking status: Former Smoker Packs/day: 3.00 Years: 12.00 Pack years: 36.00 Quit date: 08/27/1973 Years since quittin.3 Smokeless tobacco: Current User Types: Chew Vaping Use Vaping Use: Never used Substance Use Topics Alcohol use: Not Currently Alcohol/week: 0.0 standard drinks Drug use: No Review of Systems Vitals: 01/05/21 0820 BP: 130/77 BP Location: Right arm Patient Position: Sitting BP Cuff Size: X-large Adult Pulse: 77 Resp: 16 Temp: 97.8 F (36.6 C) TempSrc: Oral SpO2: 95% Weight: 104.7 kg (230 lb 12.8 oz) Height: 5' 7 Estimated body mass index is 36.15 kg/m as calculated from the following: Height as of this encounter: 5' 7. Weight as of this encounter: 104.7 kg (230 lb 12.8 oz). Physical Exam Constitutional: General: He is not in acute distress. Appearance: He is not ill-appearing. HENT: Head: Normocephalic and atraumatic. Eyes: Extraocular Movements: Extraocular movements intact. Conjunctiva/sclera: Conjunctivae normal. Pupils: Pupils are equal, round, and reactive to light. Cardiovascular: Rate and Rhythm: Normal rate and regular rhythm. Pulses: Normal pulses. Heart sounds: Normal heart sounds. No murmur heard. No gallop. Pulmonary: Effort: Pulmonary effort is normal. Breath sounds: Normal breath sounds. No wheezing, rhonchi or rales. Chest: Chest wall: No tenderness. Abdominal: General: Abdomen is flat. Bowel sounds are normal. There is no distension. Palpations: Abdomen is soft. There is no mass. Tenderness: There is no abdominal tenderness. There is no right CVA tenderness, left CVA tenderness, guarding or rebound. Musculoskeletal: General: No tenderness. Normal range of motion. Cervical back: Normal range of motion and neck supple. No rigidity. No muscular tenderness. Right lower leg: No edema. Left lower leg: No edema. Lymphadenopathy: Cervical: No cervical adenopathy. Skin: General: Skin is warm. Findings: Lesion (1-2 mm hyperpigmented macules on dorsum of rght hand. ) present. No erythema or rash. Neurological: General: No focal deficit present. Mental Status: He is alert and oriented to person, place, and time. Sensory: No sensory deficit. Motor: No weakness. Gait: Gait normal. Psychiatric: Mood and Affect: Mood normal. Behavior: Behavior normal. Thought Content: Thought content normal. Judgment: Judgment normal. OARRS/NARxCHECK Report Received and Assessed: No data found Date controlled substance agreement signed: No data found Date of last drug screen: No data found Functional Assessment: No data found Tobacco Counseling: Ready to quit: Not Answered Counseling given: Not Answered Patient's Medications New Prescriptions No medications on file Previous Medications ACETAMINOPHEN (TYLENOL) 325 MG TABLET Take 650 mg by mouth every 6 (six) hours as needed for pain (1-2 tablets). ASCORBIC ACID (VITAMIN C) 500 MG CPER Take 500 mg by mouth every other day . ASPIRIN 81 MG EC TABLET Take 1 tablet (81 mg total) by mouth daily. BLOOD SUGAR DIAGNOSTIC (GLUCOSE BLOOD) STRIPS Dx code E11.9 use to check BG 4x daily. BLOOD SUGAR DIAGNOSTIC (RELION PRIME TEST STRIPS) STRIPS E11.65 Use as directed 4 times per day. BUMETANIDE (BUMEX) 1 MG TABLET TAKE 1/2 (ONE-HALF) TABLET BY MOUTH EVERY OTHER DAY DOCUSATE SODIUM (COLACE) 100 MG CAPSULE Take 100 mg by mouth 2 (two) times a day as needed . INSULIN GLARGINE (LANTUS U-100 INSULIN) 100 UNIT/ML INJECTION Use as directed approx 30 u per day total. . INSULIN LISPRO (HUMALOG) 100 UNIT/ML INJECTION USE DIRECTED, APPROXIMATELY 20 UNITS A DAY. . INSULIN SYR/NDL U100 HALF JENARO 0.3 ML 31 GAUGE X 5/16 SYRG Diag code E11.319 Use 4 times daily . INSULIN SYRINGE-NEEDLE U-100 0.3 ML 31 X 5/16 SYRG Use as directed QID. LANCETS MISC Use to check BG QID SolusV2 brand Dx E11.65. METOPROLOL SUCCINATE (TOPROL-XL) 25 MG 24 HR TABLET Take 1 (one) tablet (25 mg total) by mouth daily . PEN NEEDLE, DIABETIC 31 GAUGE X 3/16 NDLE Use as directed 4 times daily. . PNEUMOCOCCAL CONJ. 13-VALENT (PREVNAR-13) 0.5 ML VACCINE Sign this order in conjunction with the immunization order to satisfy [place] Board of Pharmacy Positive ID requirements for immunization orders . POTASSIUM CHLORIDE 20 MEQ TBER Take 1 (one) tablet (20 mEq total) by mouth every other day . PSYLLIUM (METAMUCIL) 0.52 GRAM CAPSULE Take 2 capsules by mouth as needed . SIMVASTATIN (ZOCOR) 20 MG TABLET Take 1 (one) tablet (20 mg total) by mouth at bedtime . Modified Medications Modified Medication Previous Medication LISINOPRIL (PRINIVIL,ZESTRIL) 20 MG TABLET lisinopriL (PRINIVIL,ZESTRIL) 20 MG tablet Take 1 (one) tablet (20 mg total) by mouth daily . Take 1 (one) tablet (20 mg total) by mouth daily. Discontinued Medications No medications on file Health Maintenance Due Topic Date Due Wellness Visit Never done Ophthalmology Exam Never done COVID-19 Vaccine (1) Never done Hepatitis C Screening Never done Zoster Vaccines (1 of 2) Never done Assessment & Plan Problem List Items Addressed This Visit Endocrine Type 2 diabetes mellitus with retinopathy of both eyes, with long-term current use of insulin (HCC)- Primary Poorly controlled diabetes at this time with A1c 2 weeks ago 12.5%. Patient noncompliant on his current insulin regimen premeal. -Discussed with patient implications of poorly controlled diabetes at this time -Discussed at length lifestyle changes with low-carb diet and exercise. -Discussed with patient today potential addition of SGLT2 inhibitor versus GLP-1 agonist addition for added cardiac benefit as well as potential weight loss effect which the patient is interested in. -Following up with endocrine today and will further discuss options to help control his diabetes. -Background diabetic retinopathy with laser treatment last was in December 2019 -Last foot exam in April 2020 seen podiatry for it with Dr. Arroyo.\ -Prevnar today PCV13 -On moderate strength statin with good LDL goal less than 70 as well as aspirin 81 mg Relevant Medications pneumococcal conj. 13-valent (PREVNAR-13) 0.5 mL vaccine Other Relevant Orders Pneumococcal conjugate vaccine 13-valent (PCV-13) (Completed) Cardiovascular and Mediastinum Hypertension Chronic , therapeutic range on increased lisinopril of 20 mg - continue on the same regimen - continue to monitor at home Follow up with lifestyle modifications that was discussed today at length with salt restriction andexercise on his elliptical now up to 20 mins daily Relevant Medications lisinopriL (PRINIVIL,ZESTRIL) 20 MG tablet Other Visit Diagnoses Encounter for immunization Relevant Orders Pneumococcal conjugate vaccine 13-valent (PCV-13) (Completed) I spent over 60 mins reviewing patient's chart , HPI and coordicating plan of care. Return in about 4 weeks (around 02/02/2021) for medicare wellness in one month, 2 months for physical . VIVIEN FOREMAN MD [facility] [address] [facility] [address] [facility] [address] Dept: [phone] Over the last 2 weeks, how often have you been bothered by any of the following problems? Little interest or pleasure in doing things Feeling down, depressed, or hopeless PHQ-2 Total Score Trouble falling or staying asleep, or sleeping too much Feeling tired or having little energy Poor appetite or overeating Feeling bad about yourself - or that you are a failure or have let yourself or your family down Trouble concentrating on things, such as reading the newspaper or watching television Moving or speaking so slowly that other people could have noticed. Or the opposite - being fidgety or restless that you have been moving around a lot more than usual Thoughts that you would be better off , or hurting yourself in some way PHQ-9 Total Score If you checked off any problems, how difficult have these problems made it for you to do your work,take care of things at home, or get along with other people? documented in this [id number] Telephone encounter Note* Telephone Encounter - Jaclyn Farah CMA - 01/02/2021 10:47 AM EDT Refill at 01/09 appt [id number] Miscellaneous Notes* Telephone Encounter - Jaclyn Farah CMA - 01/02/2021 10:47 AM EDT Refill at 7 appt documented in this [id number] Miscellaneous Notes* Assessment & Plan Note - Vivien Foreman MD - 12/17/2020 8:46 AM EDT Associated Problem(s): Skin mole Most likely related to benign mole. DDx includes seborrheic keratosis vs AK. - Continue to monitor , discussed red flags for changing color, size or contour to consider excision * Assessment & Plan Note - Vivien Foreman MD - 12/17/2020 8:45 AM EDT Associated Problem(s): Hypercholesterolemia Checking lipid panel today, fasting Continue on the same regimen of simvastatin 20 mg at this time * Assessment & Plan Note - Vivien Foreman MD - 12/17/2020 8:44 AM EDT Associated Problem(s): Morbid obesity (HCC) Lifestyle modification discussed with patient , currently performing daily exercise Dietary restriction for salt and carbs given his HTN and DM were also discussed today * Assessment & Plan Note - Vivien Foreman MD - 12/17/2020 8:41 AM EDT Associated Problem(s): Traumatic subdural hemorrhage (HCC) Had a mechanical fall back in 2007 without losing consciousness. Evaluated in ER, CT head showed subdural interhemispheric fissure on the right side. Follow up with neurosurgery in [facility] [place] showing improving and self limited subdural collection. No headaches at this time. - continue to monitor * Assessment & Plan Note - Vivien Foreman MD - 12/17/2020 8:37 AM EDT Associated Problem(s): CAD (coronary artery disease) Stable no symptoms of SOB , chest pain, nausea, syncope or near syncope. PA s/p CABG bypass grafting x3 by Dr. Sonam Méndez in August 2015. Following up with cardiology by Dr. Healy. Last echo in November 2018 showing severe concentric LVH with LVEF 60%, mild to moderate RV enlargement, moderate to severe MAC with calcifications and s/p AVR visualized with trace regurgitation. Stress testing showing moderate to large inferior, inferior lateral and apical infarcts related to LV dysfunction with moderate dilation and moderate reduced EF of 40%. 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 - Follow up annually * Assessment & Plan Note - Vivien Foreman MD - 12/17/2020 8:32 AM EDT Associated Problem(s): Postoperative atrial fibrillation (HCC) Postoperative S/P cardioversion. Currently in normal sinus rhythm per last ECG 2018 which also showed RBBB and 1st degree AV block. Regular today on exam. - Continue to monitor and continue on metoprolol 25 mg at this time. * Assessment & Plan Note - Vivien Foreman MD - 12/16/2020 9:24 AM EDT Associated Problem(s): Hypertension Borderline high, lisinopril increased 20 mg Please take blood pressure in the same arm In a seated position for at least 5 minutes, and record readings keeping a log. If her blood pressure is at any time over 180/110, please give clinic a call. If high blood pressure with symptoms of headaches, blurry vision or tingling/numbness in extremities, please head to the ED for further management. Our goal blood pressure is below 130/80 for most adults Our goal blood pressure for ages over 65 is below 140/90 Be mindful of salt intake with your diet goal<2 g documented in this [id number] History of Present illness Narrative* Vivien Foreman MD - 12/16/2020 8:16 AM EDT Chief Complaint Patient presents with Establish Care spot on arm HPI: Andrew Arnold is a 75-year-old gentleman presenting today as a new patient to establish care. PMH of CAD s/p CABG bypass grafting x3, s/p AVR, postoperative A. fib s/p cardioversion, hypertension, hyperlipidemia, diabetes type 2 complicated with diabetic retinopathy, obesity, oral cancer, subdural hematoma, TIA A. fib: Postoperative following his AVR in August 2015, was initially put on amiodarone and warfarin, cardioversion was performed in October 2015 after which amiodarone and warfarin were discontinued. Currently normal sinus rhythm. CAD: PA s/p CABG bypass grafting x3 by Dr. Sonam Méndez in August 2015. Following up with cardiology byDr. Healy. Last echo in November 2018 showing severe concentric LVH with LVEF 60%, mild to moderate RVenlargement, moderate to severe MAC with calcifications and s/p AVR visualized with trace regurgitation. Stress testing showing moderate to large inferior, inferior lateral and apical infarcts related to LV dysfunction with moderate dilation and moderate reduced EF of 40%. Currently on Bumex , aspirin 81 mg, No SOB or chest pain. Currently walking everyday on his elliptical. Diabetes type 2: Was diagnosed in 2000, currently on Lantus 24 units at bedtime and Humalog total 20 units daily 46 units with meals. Last A1c was 8.9 in 04/2020. Background diabetic retinopathy with laser treatment last was in December 2019 Last foot exam in April 2020 seen podiatry for it with Dr. Arroyo. Has an appointment with endocrinology for follow up at the end of this month. Buccal cancer: Chewed tobacco quit in 2008 for many years and had a buccal SCC removed in 2008 by in head and neck [facility]. Follow up for the past 10 years with no recurrence, no new lumps in head or neck. Skin mole: Patient has several skin spots/moles on dorsum of right hand that believes are 'liver spots'. Has not been growing in size or had any change in color. Subdural hematoma: Had a mechanical fall back in 2007 while sitting on a tub to help his granddaughter in the bathroomand fell backwards hitting his head without losing consciousness. Evaluated in ER, CT head showed subdural interhemispheric fissure on the right side. Follow up with neurosurgery in [facility] [place] showing improving and self limited subdural collection. No headaches at this time. Past Medical History: Diagnosis Date Aortic valve calcification Arrhythmia Atrial fibrillation (HCC) after CABG CAD (coronary artery disease) 3 Vessel Claudication (HCC) Left lower extremity symptoms Diabetes mellitus, type 2 (HCC) Diabetic retinopathy (HCC) Laser treatment Fractures Hypertension Mitral valve annular calcification Myocardial infarction (HCC) 08/02/2015 Non-ST Obesity Oral cancer (HCC) Pilonidal cyst Subdural hematoma (HCC) 2008 minor trauma while on Plavix at the time. Tendonitis of wrist, right TIA (transient ischemic attack) 2007 was put on plavix then had subdural one year later. Vitreous hemorrhage of left eye (HCC) Past Surgical History: Procedure Laterality Date AORTIC VALVE REPLACEMENT CARDIAC CATHETERIZATION CARDIAC VALVE REPLACEMENT CORONARY ARTERY BYPASS GRAFT 08/13/2015 3 Vessel/YEUNG to the LAD/SVG to obtuse marginal/SVG to a PDA MOUTH SURGERY 2007 Oral cancer TENDON RELEASE DEQUERVAINS Right 12/26/2018 Procedure: TENDON RELEASE DE QUERVAINS RIGHT; Surgeon: Jenaro Oquendo MD; Location: Main OR; Service: Orthopedic Family History Problem Relation Age of Onset COPD Mother Diabetes Father Stroke Paternal Grandmother Social History Tobacco Use Smoking status: Former Smoker Packs/day: 3.00 Years: 12.00 Pack years: 36.00 Quit date: 08/27/1973 Years since quittin.3 Smokeless tobacco: Current User Types: Chew Vaping Use Vaping Use: Never used Substance Use Topics Alcohol use: Not Currently Alcohol/week: 0.0 standard drinks Drug use: No Review of Systems Vitals: 12/16/20 0827 12/16/20 0832 BP: (!) 151/82 146/79 BP Location: Left arm Left arm Patient Position: Sitting Sitting BP Cuff Size: Adult Adult Pulse: 79 Resp: 18 Temp: 97.4 F (36.3 C) TempSrc: Oral SpO2: 94% Weight: 104.6 kg (230 lb 9.6 oz) Height: 5' 7 Estimated body mass index is 36.12 kg/m as calculated from the following: Height as of this encounter: 5' 7. Weight as of this encounter: 104.6 kg (230 lb 9.6 oz). Physical Exam Constitutional: General: He is not in acute distress. Appearance: He is not ill-appearing. HENT: Head: Normocephalic and atraumatic. Eyes: Extraocular Movements: Extraocular movements intact. Conjunctiva/sclera: Conjunctivae normal. Pupils: Pupils are equal, round, and reactive to light. Cardiovascular: Rate and Rhythm: Normal rate and regular rhythm. Pulses: Normal pulses. Heart sounds: Normal heart sounds. No murmur heard. No gallop. Pulmonary: Effort: Pulmonary effort is normal. Breath sounds: Normal breath sounds. No wheezing, rhonchi or rales. Chest: Chest wall: No tenderness. Abdominal: General: Abdomen is flat. Bowel sounds are normal. There is no distension. Palpations: Abdomen is soft. There is no mass. Tenderness: There is no abdominal tenderness. There is no right CVA tenderness, left CVA tenderness, guarding or rebound. Musculoskeletal: General: No tenderness. Normal range of motion. Cervical back: Normal range of motion and neck supple. No rigidity. No muscular tenderness. Right lower leg: No edema. Left lower leg: No edema. Lymphadenopathy: Cervical: No cervical adenopathy. Skin: General: Skin is warm. Findings: Lesion (1-2 mm hyperpigmented macules on dorsum of rght hand. ) present. No erythema or rash. Neurological: General: No focal deficit present. Mental Status: He is alert and oriented to person, place, and time. Sensory: No sensory deficit. Motor: No weakness. Gait: Gait normal. Psychiatric: Mood and Affect: Mood normal. Behavior: Behavior normal. Thought Content: Thought content normal. Judgment: Judgment normal. OARRS/NARxCHECK Report Received and Assessed: No data found Date controlled substance agreement signed: No data found Date of last drug screen: No data found Functional Assessment: No data found @Exam@ PHQ9: Over the last 2 weeks, how often have you been bothered by any of the following problems? Little interest or pleasure in doing things: More than half the days Feeling down, depressed, or hopeless: More than half the days PHQ-2 Total Score: 4 Trouble falling or staying asleep, or sleeping too much: More than half the days Feeling tired or having little energy: Several days Poor appetite or overeating: Not at all Feeling bad about yourself - or that you are a failure or have let yourself or your family down: More than half the days Trouble concentrating on things, such as reading the newspaper or watching television: More than half the days Moving or speaking so slowly that other people could have noticed. Or the opposite - being so fidgety or restless that you have been moving around a lot more than usual: Not at all Thoughts that you would be better off , or of hurting yourself in some way: More than half the days PHQ-9 Total Score: 13 If you checked off any problems, how difficult have these problems made it for you to do your work,take care of things at home, or get along with other people?: Somewhat difficult MILLER-7 Over the last 2 weeks, how often have you been bothered by the following problems? Feeling nervous, anxious or on edge: Over half the days Not being able to stop or control worrying: Several days Worrying too much about different things: Over half the days Trouble relaxing: Over half the days Being so restless that it is hard to sit still: Over half the days Becoming easily annoyed or irritable: Nearly every day Feeling afraid as if something awful might happen: Nearly every day MILLER-7 Score: (!) 15 Tobacco Counseling: Ready to quit: Not Answered Counseling given: Not Answered Patient's Medications New Prescriptions LISINOPRIL (PRINIVIL,ZESTRIL) 20 MG TABLET Take 1 (one) tablet (20 mg total) by mouth daily . Previous Medications ACETAMINOPHEN (TYLENOL) 325 MG TABLET Take 650 mg by mouth every 6 (six) hours as needed for pain (1-2 tablets). ASCORBIC ACID (VITAMIN C) 500 MG CPER Take 500 mg by mouth every other day . ASPIRIN 81 MG EC TABLET Take 1 tablet (81 mg total) by mouth daily. BLOOD SUGAR DIAGNOSTIC (GLUCOSE BLOOD) STRIPS Dx code E11.9 use to check BG 4x daily. BLOOD SUGAR DIAGNOSTIC (RELION PRIME TEST STRIPS) STRIPS E11.65 Use as directed 4 times per day. BUMETANIDE (BUMEX) 1 MG TABLET TAKE 1/2 (ONE-HALF) TABLET BY MOUTH EVERY OTHER DAY DOCUSATE SODIUM (COLACE) 100 MG CAPSULE Take 100 mg by mouth 2 (two) times a day as needed . INSULIN GLARGINE (LANTUS U-100 INSULIN) 100 UNIT/ML INJECTION Use as directed approx 30 u per day total. . INSULIN LISPRO (HUMALOG) 100 UNIT/ML INJECTION USE DIRECTED, APPROXIMATELY 20 UNITS A DAY. . INSULIN SYR/NDL U100 HALF JENARO 0.3 ML 31 GAUGE X 5/16 SYRG Diag code E11.319 Use 4 times daily . INSULIN SYRINGE-NEEDLE U-100 0.3 ML 31 X 5/16 SYRG Use as directed QID. LANCETS MISC Use to check BG QID SolusV2 brand Dx E11.65. METOPROLOL SUCCINATE (TOPROL-XL) 25 MG 24 HR TABLET Take 1 (one) tablet (25 mg total) by mouth daily . PEN NEEDLE, DIABETIC 31 GAUGE X 3/16 NDLE Use as directed 4 times daily. . POTASSIUM CHLORIDE 20 MEQ TBER Take 1 (one) tablet (20 mEq total) by mouth every other day . PSYLLIUM (METAMUCIL) 0.52 GRAM CAPSULE Take 2 capsules by mouth as needed . SIMVASTATIN (ZOCOR) 20 MG TABLET Take 1 (one) tablet (20 mg total) by mouth at bedtime . Modified Medications No medications on file Discontinued Medications LISINOPRIL (PRINIVIL,ZESTRIL) 10 MG TABLET Take 1 (one) tablet (10 mg total) by mouth daily . 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 - Follow up annually Endocrine Type 2 diabetes mellitus with retinopathy of both eyes, with long-term current use of insulin (HCC) Relevant Orders Comprehensive Metabolic Panel Cardiovascular and Mediastinum CAD (coronary artery disease) Stable no symptoms of SOB , chest pain, nausea, syncope or near syncope. PA s/p CABG bypass grafting x3 by Dr. Sonam Méndez in August 2015. Following up with cardiology by Dr. Healy. Last echo in November 2018 showing severe concentric LVH with LVEF 60%, mild to moderate RV enlargement, moderate to severe MAC with calcifications and s/p AVR visualized with trace regurgitation. Stress testing showing moderate to large inferior, inferior lateral and apical infarcts related to LV dysfunction with moderate dilation and moderate reduced EF of 40%. -Currently on Bumex 1 mg, aspirin 81 mg and simvastatin 20 mg - Daily exercise with no symptoms - continue to monitor and control risk factors as HTN , HLD and DM Relevant Medications lisinopriL (PRINIVIL,ZESTRIL) 20 MG tablet Hypertension Borderline high, lisinopril increased 20 mg Please take blood pressure in the same arm In a seated position for at least 5 minutes, and record readings keeping a log. If her blood pressure is at any time over 180/110, please give clinic a call. If high blood pressure with symptoms of headaches, blurry vision or tingling/numbness in extremities, please head to the ED for further management. Our goal blood pressure is below 130/80 for most adults Our goal blood pressure for ages over 65 is below 140/90 Be mindful of salt intake with your diet goal<2 g Relevant Medications lisinopriL (PRINIVIL,ZESTRIL) 20 MG tablet Other Relevant Orders Comprehensive Metabolic Panel Lipid Panel TSH with Reflex Free T4 Microalbumin, Urine, Random Postoperative atrial fibrillation (HCC) Postoperative S/P cardioversion. Currently in normal sinus rhythm per last ECG 2018 which also showed RBBB and 1st degree AV block. Regular today on exam. - Continue to monitor and continue on metoprolol 25 mg at this time. Relevant Medications lisinopriL (PRINIVIL,ZESTRIL) 20 MG tablet Nervous and Auditory Traumatic subdural hemorrhage (HCC) Had a mechanical fall back in 2007 without losing consciousness. Evaluated in ER, CT head showed subdural interhemispheric fissure on the right side. Follow up with neurosurgery in [facility] [place] showing improving and self limited subdural collection. No headaches at this time. - continue to monitor Musculoskeletal and Integument Skin mole Most likely related to benign mole. DDx includes seborrheic keratosis vs AK. - Continue to monitor , discussed red flags for changing color, size or contour to consider excision Other S/P aortic valve replacement (Chronic) Hypercholesterolemia Checking lipid panel today, fasting Continue on the same regimen of simvastatin 20 mg at this time Relevant Orders Lipid Panel Morbid obesity (HCC) Lifestyle modification discussed with patient , currently performing daily exercise Dietary restriction for salt and carbs given his HTN and DM were also discussed today Other Visit Diagnoses Encounter to establish care - Primary I spent over 60 mins reviewing patient's chart , HPI and coordicating plan of care. Return in about 2 weeks (around 12/30/2020) for Follow Up bp and balance issues . VIVIEN FOREMAN MD [facility] [address] [facility] [address] [facility] [id number] Dept: [phone] Over the last 2 weeks, how often have you been bothered by any of the following problems? Little interest or pleasure in doing things More than half the days Feeling down, depressed, or hopeless More than half the days PHQ-2 Total Score 4 Trouble falling or staying asleep, or sleeping too much More than half the days Feeling tired or having little energy Several days Poor appetite or overeating Not at all Feeling bad about yourself - or that you are a failure or have let yourself or your family down More than half the days Trouble concentrating on things, such as reading the newspaper or watching television More than half the days Moving or speaking so slowly that other people could have noticed. Or the opposite - being fidgety or restless that you have been moving around a lot more than usual Not at all Thoughts that you would be better off , or hurting yourself in some way More than half the days PHQ-9 Total Score 13 If you checked off any problems, how difficult have these problems made it for you to do your work,take care of things at home, or get along with other people? 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, with long-term current use of insulin, macular edema presence unspecified, unspecified retinopathy severity (HCC) Postoperative atrial fibrillation (HCC) Morbid obesity (HCC) Morbid obesity Essential hypertension Unspecified essential hypertension 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, sequela (HCC) Hypercholesterolemia Pure hypercholesterolemia S/P aortic valve replacement Heart valve replaced by other means Coronary 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, unspecified vessel or lesion type Skin mole Benign neoplasm of skin, site unspecified [facility] Diagnosis Type 2 diabetes mellitus with retinopathy of both eyes, with long-term current use of insulin, macular edema presence unspecified, unspecified retinopathy severity (HCC)- Primary Essential hypertension Unspecified essential hypertension Encounter for immunization [facility]* Diagnosis Type 2 diabetes mellitus with retinopathy of both eyes, with long-term current use of insulin, macular edema presence unspecified, unspecified retinopathy severity (HCC)- Primary Essential hypertension Unspecified essential hypertension [facility]* Diagnosis Essential hypertension Unspecified essential hypertension Hyperlipidemia, unspecified hyperlipidemia type Persistent atrial fibrillation (HCC) Atrial fibrillation S/P CABG (coronary artery bypass graft) Postsurgical aortocoronary bypass status S/P aortic valve replacement Heart valve replaced by other means [facility]* Diagnosis Persistent atrial fibrillation (HCC) Atrial fibrillation [facility]* Diagnosis Persistent atrial fibrillation (HCC) Atrial fibrillation [facility] Diagnosis Type 2 diabetes mellitus with retinopathy of both eyes, with long-term current use of insulin, macular edema presence unspecified, unspecified retinopathy severity (HCC)- Primary Essential hypertension Unspecified essential hypertension [facility]* Diagnosis Anxiety and depression- Primary Balance disorder Encounter for immunization [facility] Diagnosis Onychomycosis- Primary Dermatophytosis of nail Peripheral vascular disease, unspecified (HCC) Peripheral vascular disease, unspecified [facility] Diagnosis At low risk for fall- Primary Ventricular fibrillation (HCC) Ventricular fibrillation Primary hypertension Unspecified essential hypertension 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, single episode, mild Anxiety and depression Encounter for immunization [facility] Type 2 diabetes mellitus with retinopathy of both eyes, with long-term current use of insulin, macular edema presence unspecified, unspecified retinopathy severity (HCC)- Primary Primary hypertension Unspecified essential hypertension Hypercholesterolemia Pure hypercholesterolemia [facility] Diagnosis Persistent atrial fibrillation (HCC)- Primary Atrial fibrillation Coronary 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, unspecified vessel or lesion type [facility] Diagnosis Type 2 diabetes mellitus with retinopathy of both eyes, with long-term current use of insulin, macular edema presence unspecified, unspecified retinopathy severity (HCC)- Primary Primary hypertension Unspecified essential hypertension [facility]* Diagnosis Pre-operative cardiovascular examination- Primary Hx of aortic valve replacement [facility] Diagnosis Abnormal stress test- Primary Other nonspecific abnormal cardiovascular system function study Coronary artery disease, unspecified vessel or lesion type, unspecified whether angina present, unspecified whether [place] or transplanted heart Abnormal stress test Other nonspecific abnormal cardiovascular system function study [facility] Diagnosis Abnormal stress test Other nonspecific abnormal cardiovascular system function study CAD (coronary artery disease) Coronary atherosclerosis of unspecified type of vessel, [place] or graft Onychomycosis- Primary Dermatophytosis of nail Peripheral vascular disease, unspecified (HCC) Peripheral vascular disease, unspecified [facility] Diagnosis PAD (peripheral artery disease) (HCC)- Primary Unspecified peripheral vascular disease Claudication (HCC) Unspecified peripheral vascular disease [facility] Diagnosis PAD (peripheral artery disease) ([facility])- Primary Unspecified peripheral vascular disease [facility] Diagnosis Type 2 diabetes mellitus with retinopathy of both eyes, with long-term current use of insulin, macular edema presence unspecified, unspecified retinopathy severity (HCC)- Primary Primary hypertension Unspecified essential hypertension Hypercholesterolemia Pure hypercholesterolemia [facility] Diagnosis Coronary 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, unspecified vessel or lesion type- Primary 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, with long-term current use of insulin, macular edema presence unspecified, unspecified retinopathy severity ([facility]) Intermittent claudication (HCC) Unspecified peripheral vascular disease [facility] Diagnosis 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, bilateral legs ([facility])- Primary PAD (peripheral artery disease) ([facility]) Unspecified peripheral vascular disease Persistent atrial fibrillation (HCC) Atrial fibrillation Morbid obesity (HCC) Morbid obesity Type 2 diabetes mellitus with other circulatory complication, with long-term current use of insulin ([facility]) [facility] Diagnosis Essential hypertension Unspecified essential hypertension [facility] Diagnosis Diabetic polyneuropathy 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)- Primary Onychomycosis Dermatophytosis of nail Peripheral vascular disease, unspecified (HCC) Peripheral vascular disease, unspecified [facility] Diagnosis Persistent atrial fibrillation (HCC) Atrial fibrillation S/P CABG (coronary artery bypass graft) Postsurgical aortocoronary bypass status S/P aortic valve replacement Heart valve replaced by other means [facility] Diagnosis At low risk for fall- Primary 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, single episode, mild Persistent atrial fibrillation (HCC) Atrial fibrillation Medicare annual wellness visit, subsequent Need for COVID-19 vaccine Advanced directives, counseling/discussion Other specified counseling PAD (peripheral artery disease) (HCC) Unspecified peripheral vascular disease [facility] Diagnosis Onychomycosis- Primary Dermatophytosis of nail Peripheral vascular disease, unspecified (HCC) Peripheral vascular disease, unspecified Diabetic polyneuropathy 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) [facility] Diagnosis Type 2 diabetes mellitus with retinopathy of both eyes, with long-term current use of insulin, macular edema presence unspecified, unspecified retinopathy severity (HCC)- Primary 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, single episode, mild Peripheral vascular disease, unspecified (HCC) Peripheral vascular disease, unspecified Persistent atrial fibrillation (HCC) Atrial fibrillation Morbid obesity (HCC) Morbid obesity 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) 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, sequela (HCC) Hypertensive heart disease with heart failure (HCC) Unspecified hypertensive heart disease with heart failure Malignant neoplasm of buccal sulcus (HCC) Cough, unspecified type PAD (peripheral artery disease) (HCC) Unspecified peripheral vascular disease 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, bilateral legs ([facility]) [facility] Diagnosis Essential hypertension Unspecified essential hypertension [facility] Diagnosis PAD (peripheral artery disease) (HCC) Unspecified peripheral vascular disease 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, bilateral legs (HCC) [facility] Diagnosis 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, bilateral legs (HCC)- Primary PAD (peripheral artery disease) ([facility]) Unspecified peripheral vascular disease Type 2 diabetes mellitus with other circulatory complication, with long-term current use of insulin (HCC) Obesity (BMI 30-39.9) halfway current use of anticoagulant [facility] Diagnosis Essential hypertension Unspecified essential hypertension Hyperlipidemia, unspecified hyperlipidemia type [facility] Diagnosis Onychomycosis- Primary Dermatophytosis of nail Peripheral vascular disease, unspecified (HCC) Peripheral vascular disease, unspecified [facility] Diagnosis Diarrhea, unspecified type- Primary Essential hypertension Unspecified essential hypertension Hyperlipidemia, unspecified hyperlipidemia type Persistent atrial fibrillation (HCC) Atrial fibrillation 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, bilateral legs (HCC) [facility] Diagnosis PAD (peripheral artery disease) (HCC) Unspecified peripheral vascular disease 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, bilateral legs (HCC) [facility] Diagnosis Persistent atrial fibrillation (HCC)- Primary Atrial fibrillation S/P CABG (coronary artery bypass graft) Postsurgical aortocoronary bypass status S/P aortic valve replacement Heart valve replaced by other means [facility]* Diagnosis Onychomycosis- Primary Dermatophytosis of nail Peripheral vascular disease, unspecified (HCC) Peripheral vascular disease, unspecified [facility]* Diagnosis Type 2 diabetes mellitus with retinopathy of both eyes, with long-term current use of insulin, macular edema presence unspecified, unspecified retinopathy severity (HCC)- Primary Primary hypertension Unspecified essential hypertension [facility]* Diagnosis 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, single episode, mild [facility] Diagnosis PAD (peripheral artery disease) (HCC)- Primary Unspecified peripheral vascular disease Essential hypertension Unspecified essential hypertension [facility]* Diagnosis 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, bilateral legs (HCC)- Primary PAD (peripheral artery disease) (HCC) Unspecified peripheral vascular disease Type 2 diabetes mellitus with other circulatory complication, with long-term current use of insulin (HCC) 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 Obesity (BMI 30-39.9) [facility] Diagnosis 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, bilateral legs (HCC)- Primary PAD (peripheral artery disease) (HCC) Unspecified peripheral vascular disease Poorly controlled diabetes mellitus (HCC) Type II or unspecified type diabetes mellitus without mention of complication, not stated as uncontrolled Type 2 diabetes mellitus with other circulatory complication, with long-term current use of insulin (HCC) Persistent atrial fibrillation (HCC) Atrial fibrillation halfway current use of anticoagulant Obesity (BMI 30-39.9) Aneurysm of ascending aorta without rupture (HCC) [facility] Diagnosis Essential hypertension Unspecified essential hypertension [facility] Diagnosis Type 2 diabetes mellitus with retinopathy of both eyes, with long-term current use of insulin, macular edema presence unspecified, unspecified retinopathy severity (HCC)- Primary [facility]* Diagnosis 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, bilateral legs (HCC)- Primary PAD (peripheral artery disease) (HCC) Unspecified peripheral vascular disease Abrasion, right foot, subsequent encounter Poorly controlled diabetes mellitus (HCC) Type II or unspecified type diabetes mellitus without mention of complication, not stated as uncontrolled Persistent atrial fibrillation (HCC) Atrial fibrillation halfway current use of anticoagulant Obesity (BMI 30-39.9) [facility]* Diagnosis Persistent atrial fibrillation (HCC)- Primary Atrial fibrillation Essential hypertension Unspecified essential hypertension PAD (peripheral artery disease) (HCC) Unspecified peripheral vascular disease S/P CABG (coronary artery bypass graft) Postsurgical aortocoronary bypass status S/P aortic valve replacement Heart valve replaced by other means [facility]* Diagnosis Onychomycosis- Primary Dermatophytosis of nail Peripheral vascular disease, unspecified (HCC) Peripheral vascular disease, unspecified [facility]* Diagnosis Onychomycosis- Primary Dermatophytosis of nail Peripheral vascular disease, unspecified (HCC) Peripheral vascular disease, unspecified [facility]* Diagnosis Type 2 diabetes mellitus with other circulatory complication, with long-term current use of insulin (HCC)- Primary 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 heart disease with heart failure (HCC) Unspecified hypertensive heart disease with heart failure 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, single episode, mild Traumatic subdural hemorrhage with unknown loss of consciousness status, subsequent encounter Morbid obesity (HCC) Morbid obesity 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, sequela (HCC) 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, bilateral legs (HCC) Type 2 diabetes mellitus with retinopathy of both eyes, with long-term current use of insulin, macular edema presence unspecified, unspecified retinopathy severity (HCC) PAD (peripheral artery disease) (HCC) Unspecified peripheral vascular disease Medicare annual wellness visit, subsequent Sensorineural hearing loss (SNHL) of both ears At high risk for falls [facility]* Diagnosis Type 2 diabetes mellitus with retinopathy of both eyes, with long-term current use of insulin, macular edema presence unspecified, unspecified retinopathy severity (HCC)- Primary [facility]* Diagnosis At high risk for falls- Primary [facility]* Diagnosis At high risk for falls- Primary [facility] Diagnosis At high risk for falls [facility] Diagnosis At high risk for falls- Primary [facility] Diagnosis At high risk for falls- Primary [facility] Diagnosis At high risk for falls- Primary [facility] Diagnosis Balance disorder- Primary [facility] Diagnosis At high risk for falls- Primary [facility] Diagnosis 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, bilateral legs (HCC)- Primary PAD (peripheral artery disease) (HCC) Unspecified peripheral vascular disease Persistent atrial fibrillation (HCC) Atrial fibrillation halfway current use of anticoagulant Obesity (BMI 30-39.9) [facility] Diagnosis Essential hypertension Unspecified essential hypertension [facility] Diagnosis Onychomycosis- Primary Dermatophytosis of nail Peripheral vascular disease, unspecified (HCC) Peripheral vascular disease, unspecified [facility] Diagnosis Essential hypertension Unspecified essential hypertension [facility]* Diagnosis Hyperlipidemia, unspecified hyperlipidemia type [facility] Diagnosis Coronary artery disease involving [place] coronary artery of [place] heart without angina pectoris- Primary Essential hypertension Unspecified essential hypertension S/P AVR (aortic valve replacement) Heart valve replaced by other means HLD (hyperlipidemia) Other and unspecified hyperlipidemia Persistent atrial fibrillation (HCC) Atrial fibrillation S/P CABG (coronary artery bypass graft) Postsurgical aortocoronary bypass status S/P aortic valve replacement Heart valve replaced by other means Postoperative atrial fibrillation (HCC) 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 pectoris- Primary Essential hypertension, hypertension with unspecified goal Persistent atrial fibrillation (HCC) Atrial fibrillation S/P CABG (coronary artery bypass graft) Postsurgical aortocoronary bypass status S/P AVR (aortic valve replacement) Heart valve replaced by other means S/P CABG (coronary artery bypass graft) Postsurgical aortocoronary bypass status Chest pain, unspecified type- Primary Secondary hypertension Other secondary hypertension, unspecified Other secondary hypertension S/P CABG (coronary artery bypass graft) Postsurgical aortocoronary bypass status RBBB S/P aortic valve replacement Heart valve replaced by other means Hyperlipidemia, unspecified hyperlipidemia type Hypercholesterolemia Pure hypercholesterolemia S/P aortic valve replacement Heart valve replaced by other means S/P CABG (coronary artery bypass graft) Postsurgical aortocoronary bypass status S/P CABG (coronary artery bypass graft) Postsurgical aortocoronary bypass status S/P aortic valve replacement- Primary Heart valve replaced by other means S/P CABG (coronary artery bypass graft) Postsurgical aortocoronary bypass status S/P CABG (coronary artery bypass graft) Postsurgical aortocoronary bypass status Coronary 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, unspecified vessel or lesion type- Primary Chest pain, unspecified type Prominent abdominal aortic pulse S/P aortic valve replacement Heart valve replaced by other means Essential hypertension Unspecified essential hypertension S/P CABG (coronary artery bypass graft) Postsurgical aortocoronary bypass status Hyperlipidemia, unspecified hyperlipidemia type S/P CABG (coronary artery bypass graft) Postsurgical aortocoronary bypass status S/P CABG (coronary artery bypass graft) Postsurgical aortocoronary bypass status Encounter to establish care- Primary 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, with long-term current use of insulin, macular edema presence unspecified, unspecified retinopathy severity (HCC) Postoperative atrial fibrillation (HCC) Morbid obesity (HCC) Morbid obesity Essential hypertension Unspecified essential hypertension 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, sequela (HCC) Hypercholesterolemia Pure hypercholesterolemia S/P aortic valve replacement Heart valve replaced by other means Coronary 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, unspecified vessel or lesion type Skin mole Benign neoplasm of skin, site unspecified Type 2 diabetes mellitus with retinopathy of both eyes, with long-term current use of insulin, macular edema presence unspecified, unspecified retinopathy severity (HCC)- Primary Essential hypertension Unspecified essential hypertension Encounter for immunization Essential hypertension Unspecified essential hypertension Hyperlipidemia, unspecified hyperlipidemia type Persistent atrial fibrillation (HCC) Atrial fibrillation S/P CABG (coronary artery bypass graft) Postsurgical aortocoronary bypass status S/P aortic valve replacement Heart valve replaced by other means Persistent atrial fibrillation (HCC) Atrial fibrillation Anxiety and depression- Primary Balance disorder Encounter for immunization At low risk for fall- Primary Ventricular fibrillation (HCC) Ventricular fibrillation Primary hypertension Unspecified essential hypertension 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, single episode, mild Anxiety and depression Encounter for immunization Type 2 diabetes mellitus with retinopathy of both eyes, with long-term current use of insulin, macular edema presence unspecified, unspecified retinopathy severity (HCC)- Primary Postoperative atrial fibrillation (HCC) 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, single episode, 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) Ventricular fibrillation (HCC) Ventricular fibrillation Morbid obesity (HCC) Morbid obesity 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) 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, sequela (HCC) Peripheral vascular disease, unspecified (HCC) Peripheral vascular disease, unspecified Essential hypertension Unspecified essential hypertension Colon cancer screening Special screening for malignant neoplasms, colon Chest discomfort Other chest pain Hyperlipidemia, unspecified hyperlipidemia type Need for COVID-19 vaccine Coronary 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, unspecified vessel or lesion type- Primary 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, with long-term current use of insulin, macular edema presence unspecified, unspecified retinopathy severity (HCC) Intermittent claudication (HCC) Unspecified peripheral vascular disease Persistent atrial fibrillation (HCC) Atrial fibrillation S/P CABG (coronary artery bypass graft) Postsurgical aortocoronary bypass status S/P aortic valve replacement Heart valve replaced by other means At low risk for fall- Primary 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, single episode, mild Persistent atrial fibrillation (HCC) Atrial fibrillation Medicare annual wellness visit, subsequent Need for COVID-19 vaccine Advanced directives, counseling/discussion Other specified counseling PAD (peripheral artery disease) (HCC) Unspecified peripheral vascular disease Type 2 diabetes mellitus with retinopathy of both eyes, with long-term current use of insulin, macular edema presence unspecified, unspecified retinopathy severity (HCC)- Primary 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, single episode, mild Peripheral vascular disease, unspecified (HCC) Peripheral vascular disease, unspecified Persistent atrial fibrillation (HCC) Atrial fibrillation Morbid obesity (HCC) Morbid obesity 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) 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, sequela (HCC) Hypertensive heart disease with heart failure (HCC) Unspecified hypertensive heart disease with heart failure Malignant neoplasm of buccal sulcus (HCC) Cough, unspecified type PAD (peripheral artery disease) (HCC) Unspecified peripheral vascular disease 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, bilateral legs (HCC) Diarrhea, unspecified type- Primary Essential hypertension Unspecified essential hypertension Hyperlipidemia, unspecified hyperlipidemia type Persistent atrial fibrillation (HCC) Atrial fibrillation 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, bilateral legs (HCC) Persistent atrial fibrillation (HCC)- Primary Atrial fibrillation S/P CABG (coronary artery bypass graft) Postsurgical aortocoronary bypass status S/P aortic valve replacement Heart valve replaced by other means Persistent atrial fibrillation (HCC)- Primary Atrial fibrillation Essential hypertension Unspecified essential hypertension PAD (peripheral artery disease) (HCC) Unspecified peripheral vascular disease S/P CABG (coronary artery bypass graft) Postsurgical aortocoronary bypass status S/P aortic valve replacement Heart valve replaced by other means Type 2 diabetes mellitus with other circulatory complication, with long-term current use of insulin (HCC)- Primary 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 heart disease with heart failure (HCC) Unspecified hypertensive heart disease with heart failure 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, single episode, mild Traumatic subdural hemorrhage with unknown loss of consciousness status, subsequent encounter Morbid obesity (HCC) Morbid obesity 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, sequela (HCC) 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, bilateral legs (HCC) Type 2 diabetes mellitus with retinopathy of both eyes, with long-term current use of insulin, macular edema presence unspecified, unspecified retinopathy severity (HCC) PAD (peripheral artery disease) (HCC) Unspecified peripheral vascular disease Medicare annual wellness visit, subsequent Sensorineural hearing loss (SNHL) of both ears At high risk for falls 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 note* Diagnosis Coronary artery disease involving [place] coronary artery of [place] heart without angina pectoris- Primary Essential hypertension Unspecified essential hypertension S/P AVR (aortic valve replacement) Heart valve replaced by other means HLD (hyperlipidemia) Other and unspecified hyperlipidemia Persistent atrial fibrillation (HCC) Atrial fibrillation S/P CABG (coronary artery bypass graft) Postsurgical aortocoronary bypass status S/P aortic valve replacement Heart valve replaced by other means Postoperative atrial fibrillation (HCC) 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 pectoris- Primary Essential hypertension, hypertension with unspecified goal Persistent atrial fibrillation (HCC) Atrial fibrillation S/P CABG (coronary artery bypass graft) Postsurgical aortocoronary bypass status S/P AVR (aortic valve replacement) Heart valve replaced by other means S/P CABG (coronary artery bypass graft) Postsurgical aortocoronary bypass status Chest pain, unspecified type- Primary Secondary hypertension Other secondary hypertension, unspecified Other secondary hypertension S/P CABG (coronary artery bypass graft) Postsurgical aortocoronary bypass status RBBB S/P aortic valve replacement Heart valve replaced by other means Hyperlipidemia, unspecified hyperlipidemia type Hypercholesterolemia Pure hypercholesterolemia S/P aortic valve replacement Heart valve replaced by other means S/P CABG (coronary artery bypass graft) Postsurgical aortocoronary bypass status S/P CABG (coronary artery bypass graft) Postsurgical aortocoronary bypass status S/P aortic valve replacement- Primary Heart valve replaced by other means S/P CABG (coronary artery bypass graft) Postsurgical aortocoronary bypass status S/P CABG (coronary artery bypass graft) Postsurgical aortocoronary bypass status Coronary 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, unspecified vessel or lesion type- Primary Chest pain, unspecified type Prominent abdominal aortic pulse S/P aortic valve replacement Heart valve replaced by other means Essential hypertension Unspecified essential hypertension S/P CABG (coronary artery bypass graft) Postsurgical aortocoronary bypass status Hyperlipidemia, unspecified hyperlipidemia type S/P CABG (coronary artery bypass graft) Postsurgical aortocoronary bypass status S/P CABG (coronary artery bypass graft) Postsurgical aortocoronary bypass status Encounter to establish care- Primary 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, with long-term current use of insulin, macular edema presence unspecified, unspecified retinopathy severity (HCC) Postoperative atrial fibrillation (HCC) Morbid obesity (HCC) Morbid obesity Essential hypertension Unspecified essential hypertension 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, sequela (HCC) Hypercholesterolemia Pure hypercholesterolemia S/P aortic valve replacement Heart valve replaced by other means Coronary 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, unspecified vessel or lesion type Skin mole Benign neoplasm of skin, site unspecified Type 2 diabetes mellitus with retinopathy of both eyes, with long-term current use of insulin, macular edema presence unspecified, unspecified retinopathy severity (HCC)- Primary Essential hypertension Unspecified essential hypertension Encounter for immunization Essential hypertension Unspecified essential hypertension Hyperlipidemia, unspecified hyperlipidemia type Persistent atrial fibrillation (HCC) Atrial fibrillation S/P CABG (coronary artery bypass graft) Postsurgical aortocoronary bypass status S/P aortic valve replacement Heart valve replaced by other means Persistent atrial fibrillation (HCC) Atrial fibrillation Anxiety and depression- Primary Balance disorder Encounter for immunization At low risk for fall- Primary Ventricular fibrillation (HCC) Ventricular fibrillation Primary hypertension Unspecified essential hypertension 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, single episode, mild Anxiety and depression Encounter for immunization Type 2 diabetes mellitus with retinopathy of both eyes, with long-term current use of insulin, macular edema presence unspecified, unspecified retinopathy severity (HCC)- Primary Postoperative atrial fibrillation (HCC) 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, single episode, 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) Ventricular fibrillation (HCC) Ventricular fibrillation Morbid obesity (HCC) Morbid obesity 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) 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, sequela (HCC) Peripheral vascular disease, unspecified (HCC) Peripheral vascular disease, unspecified Essential hypertension Unspecified essential hypertension Colon cancer screening Special screening for malignant neoplasms, colon Chest discomfort Other chest pain Hyperlipidemia, unspecified hyperlipidemia type Need for COVID-19 vaccine Coronary 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, unspecified vessel or lesion type- Primary 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, with long-term current use of insulin, macular edema presence unspecified, unspecified retinopathy severity (HCC) Intermittent claudication (HCC) Unspecified peripheral vascular disease Persistent atrial fibrillation (HCC) Atrial fibrillation S/P CABG (coronary artery bypass graft) Postsurgical aortocoronary bypass status S/P aortic valve replacement Heart valve replaced by other means At low risk for fall- Primary 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, single episode, mild Persistent atrial fibrillation (HCC) Atrial fibrillation Medicare annual wellness visit, subsequent Need for COVID-19 vaccine Advanced directives, counseling/discussion Other specified counseling PAD (peripheral artery disease) (HCC) Unspecified peripheral vascular disease Type 2 diabetes mellitus with retinopathy of both eyes, with long-term current use of insulin, macular edema presence unspecified, unspecified retinopathy severity (HCC)- Primary 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, single episode, mild Peripheral vascular disease, unspecified (HCC) Peripheral vascular disease, unspecified Persistent atrial fibrillation (HCC) Atrial fibrillation Morbid obesity (HCC) Morbid obesity 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) 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, sequela (HCC) Hypertensive heart disease with heart failure (HCC) Unspecified hypertensive heart disease with heart failure Malignant neoplasm of buccal sulcus (HCC) Cough, unspecified type PAD (peripheral artery disease) (HCC) Unspecified peripheral vascular disease 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, bilateral legs (HCC) Diarrhea, unspecified type- Primary Essential hypertension Unspecified essential hypertension Hyperlipidemia, unspecified hyperlipidemia type Persistent atrial fibrillation (HCC) Atrial fibrillation 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, bilateral legs (HCC) Persistent atrial fibrillation (HCC)- Primary Atrial fibrillation S/P CABG (coronary artery bypass graft) Postsurgical aortocoronary bypass status S/P aortic valve replacement Heart valve replaced by other means Persistent atrial fibrillation (HCC)- Primary Atrial fibrillation Essential hypertension Unspecified essential hypertension PAD (peripheral artery disease) (HCC) Unspecified peripheral vascular disease S/P CABG (coronary artery bypass graft) Postsurgical aortocoronary bypass status S/P aortic valve replacement Heart valve replaced by other means Type 2 diabetes mellitus with other circulatory complication, with long-term current use of insulin (HCC)- Primary 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 heart disease with heart failure (HCC) Unspecified hypertensive heart disease with heart failure 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, single episode, mild Traumatic subdural hemorrhage with unknown loss of consciousness status, subsequent encounter Morbid obesity (HCC) Morbid obesity 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, sequela (HCC) 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, bilateral legs (HCC) Type 2 diabetes mellitus with retinopathy of both eyes, with long-term current use of insulin, macular edema presence unspecified, unspecified retinopathy severity (HCC) PAD (peripheral artery disease) (HCC) Unspecified peripheral vascular disease Medicare annual wellness visit, subsequent Sensorineural hearing loss (SNHL) of both ears At high risk for falls Onychomycosis- Primary Dermatophytosis of nail Peripheral vascular disease, unspecified (HCC) Peripheral vascular disease, unspecified [facility] Diagnosis Coronary artery disease involving [place] coronary artery of [place] heart without angina pectoris- Primary Essential hypertension Unspecified essential hypertension S/P AVR (aortic valve replacement) Heart valve replaced by other means HLD (hyperlipidemia) Other and unspecified hyperlipidemia Persistent atrial fibrillation (HCC) Atrial fibrillation S/P CABG (coronary artery bypass graft) Postsurgical aortocoronary bypass status S/P aortic valve replacement Heart valve replaced by other means Postoperative atrial fibrillation (HCC) 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 pectoris- Primary Essential hypertension, hypertension with unspecified goal Persistent atrial fibrillation (HCC) Atrial fibrillation S/P CABG (coronary artery bypass graft) Postsurgical aortocoronary bypass status S/P AVR (aortic valve replacement) Heart valve replaced by other means S/P CABG (coronary artery bypass graft) Postsurgical aortocoronary bypass status Chest pain, unspecified type- Primary Secondary hypertension Other secondary hypertension, unspecified Other secondary hypertension S/P CABG (coronary artery bypass graft) Postsurgical aortocoronary bypass status RBBB S/P aortic valve replacement Heart valve replaced by other means Hyperlipidemia, unspecified hyperlipidemia type Hypercholesterolemia Pure hypercholesterolemia S/P aortic valve replacement Heart valve replaced by other means S/P CABG (coronary artery bypass graft) Postsurgical aortocoronary bypass status S/P CABG (coronary artery bypass graft) Postsurgical aortocoronary bypass status S/P aortic valve replacement- Primary Heart valve replaced by other means S/P CABG (coronary artery bypass graft) Postsurgical aortocoronary bypass status S/P CABG (coronary artery bypass graft) Postsurgical aortocoronary bypass status Coronary 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, unspecified vessel or lesion type- Primary Chest pain, unspecified type Prominent abdominal aortic pulse S/P aortic valve replacement Heart valve replaced by other means Essential hypertension Unspecified essential hypertension S/P CABG (coronary artery bypass graft) Postsurgical aortocoronary bypass status Hyperlipidemia, unspecified hyperlipidemia type S/P CABG (coronary artery bypass graft) Postsurgical aortocoronary bypass status S/P CABG (coronary artery bypass graft) Postsurgical aortocoronary bypass status Encounter to establish care- Primary 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, with long-term current use of insulin, macular edema presence unspecified, unspecified retinopathy severity (HCC) Postoperative atrial fibrillation (HCC) Morbid obesity (HCC) Morbid obesity Essential hypertension Unspecified essential hypertension 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, sequela (HCC) Hypercholesterolemia Pure hypercholesterolemia S/P aortic valve replacement Heart valve replaced by other means Coronary 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, unspecified vessel or lesion type Skin mole Benign neoplasm of skin, site unspecified Type 2 diabetes mellitus with retinopathy of both eyes, with long-term current use of insulin, macular edema presence unspecified, unspecified retinopathy severity (HCC)- Primary Essential hypertension Unspecified essential hypertension Encounter for immunization Essential hypertension Unspecified essential hypertension Hyperlipidemia, unspecified hyperlipidemia type Persistent atrial fibrillation (HCC) Atrial fibrillation S/P CABG (coronary artery bypass graft) Postsurgical aortocoronary bypass status S/P aortic valve replacement Heart valve replaced by other means Persistent atrial fibrillation (HCC) Atrial fibrillation Anxiety and depression- Primary Balance disorder Encounter for immunization At low risk for fall- Primary Ventricular fibrillation (HCC) Ventricular fibrillation Primary hypertension Unspecified essential hypertension 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, single episode, mild Anxiety and depression Encounter for immunization Type 2 diabetes mellitus with retinopathy of both eyes, with long-term current use of insulin, macular edema presence unspecified, unspecified retinopathy severity (HCC)- Primary Postoperative atrial fibrillation (HCC) 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, single episode, 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) Ventricular fibrillation (HCC) Ventricular fibrillation Morbid obesity (HCC) Morbid obesity 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) 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, sequela (HCC) Peripheral vascular disease, unspecified (HCC) Peripheral vascular disease, unspecified Essential hypertension Unspecified essential hypertension Colon cancer screening Special screening for malignant neoplasms, colon Chest discomfort Other chest pain Hyperlipidemia, unspecified hyperlipidemia type Need for COVID-19 vaccine Coronary 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, unspecified vessel or lesion type- Primary 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, with long-term current use of insulin, macular edema presence unspecified, unspecified retinopathy severity (HCC) Intermittent claudication (HCC) Unspecified peripheral vascular disease Persistent atrial fibrillation (HCC) Atrial fibrillation S/P CABG (coronary artery bypass graft) Postsurgical aortocoronary bypass status S/P aortic valve replacement Heart valve replaced by other means At low risk for fall- Primary 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, single episode, mild Persistent atrial fibrillation (HCC) Atrial fibrillation Medicare annual wellness visit, subsequent Need for COVID-19 vaccine Advanced directives, counseling/discussion Other specified counseling PAD (peripheral artery disease) (HCC) Unspecified peripheral vascular disease Type 2 diabetes mellitus with retinopathy of both eyes, with long-term current use of insulin, macular edema presence unspecified, unspecified retinopathy severity (HCC)- Primary 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, single episode, mild Peripheral vascular disease, unspecified (HCC) Peripheral vascular disease, unspecified Persistent atrial fibrillation (HCC) Atrial fibrillation Morbid obesity (HCC) Morbid obesity 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) 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, sequela (HCC) Hypertensive heart disease with heart failure (HCC) Unspecified hypertensive heart disease with heart failure Malignant neoplasm of buccal sulcus (HCC) Cough, unspecified type PAD (peripheral artery disease) (HCC) Unspecified peripheral vascular disease 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, bilateral legs (HCC) Diarrhea, unspecified type- Primary Essential hypertension Unspecified essential hypertension Hyperlipidemia, unspecified hyperlipidemia type Persistent atrial fibrillation (HCC) Atrial fibrillation 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, bilateral legs (HCC) Persistent atrial fibrillation (HCC)- Primary Atrial fibrillation S/P CABG (coronary artery bypass graft) Postsurgical aortocoronary bypass status S/P aortic valve replacement Heart valve replaced by other means Persistent atrial fibrillation (HCC)- Primary Atrial fibrillation Essential hypertension Unspecified essential hypertension PAD (peripheral artery disease) (HCC) Unspecified peripheral vascular disease S/P CABG (coronary artery bypass graft) Postsurgical aortocoronary bypass status S/P aortic valve replacement Heart valve replaced by other means Type 2 diabetes mellitus with other circulatory complication, with long-term current use of insulin (HCC)- Primary 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 heart disease with heart failure (HCC) Unspecified hypertensive heart disease with heart failure 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, single episode, mild Traumatic subdural hemorrhage with unknown loss of consciousness status, subsequent encounter Morbid obesity (HCC) Morbid obesity 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, sequela (HCC) 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, bilateral legs (HCC) Type 2 diabetes mellitus with retinopathy of both eyes, with long-term current use of insulin, macular edema presence unspecified, unspecified retinopathy severity (HCC) PAD (peripheral artery disease) (HCC) Unspecified peripheral vascular disease Medicare annual wellness visit, subsequent Sensorineural hearing loss (SNHL) of both ears At high risk for falls PAD (peripheral artery disease) (HCC)- Primary Unspecified peripheral vascular disease Primary hypertension Unspecified essential hypertension [facility] Diagnosis Coronary artery disease involving [place] coronary artery of [place] heart without angina pectoris- Primary Essential hypertension Unspecified essential hypertension S/P AVR (aortic valve replacement) Heart valve replaced by other means HLD (hyperlipidemia) Other and unspecified hyperlipidemia Persistent atrial fibrillation (HCC) Atrial fibrillation S/P CABG (coronary artery bypass graft) Postsurgical aortocoronary bypass status S/P aortic valve replacement Heart valve replaced by other means Postoperative atrial fibrillation (HCC) 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 pectoris- Primary Essential hypertension, hypertension with unspecified goal Persistent atrial fibrillation (HCC) Atrial fibrillation S/P CABG (coronary artery bypass graft) Postsurgical aortocoronary bypass status S/P AVR (aortic valve replacement) Heart valve replaced by other means S/P CABG (coronary artery bypass graft) Postsurgical aortocoronary bypass status Chest pain, unspecified type- Primary Secondary hypertension Other secondary hypertension, unspecified Other secondary hypertension S/P CABG (coronary artery bypass graft) Postsurgical aortocoronary bypass status RBBB S/P aortic valve replacement Heart valve replaced by other means Hyperlipidemia, unspecified hyperlipidemia type Hypercholesterolemia Pure hypercholesterolemia S/P aortic valve replacement Heart valve replaced by other means S/P CABG (coronary artery bypass graft) Postsurgical aortocoronary bypass status S/P CABG (coronary artery bypass graft) Postsurgical aortocoronary bypass status S/P aortic valve replacement- Primary Heart valve replaced by other means S/P CABG (coronary artery bypass graft) Postsurgical aortocoronary bypass status S/P CABG (coronary artery bypass graft) Postsurgical aortocoronary bypass status Coronary 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, unspecified vessel or lesion type- Primary Chest pain, unspecified type Prominent abdominal aortic pulse S/P aortic valve replacement Heart valve replaced by other means Essential hypertension Unspecified essential hypertension S/P CABG (coronary artery bypass graft) Postsurgical aortocoronary bypass status Hyperlipidemia, unspecified hyperlipidemia type S/P CABG (coronary artery bypass graft) Postsurgical aortocoronary bypass status S/P CABG (coronary artery bypass graft) Postsurgical aortocoronary bypass status Encounter to establish care- Primary 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, with long-term current use of insulin, macular edema presence unspecified, unspecified retinopathy severity (HCC) Postoperative atrial fibrillation (HCC) Morbid obesity (HCC) Morbid obesity Essential hypertension Unspecified essential hypertension 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, sequela (HCC) Hypercholesterolemia Pure hypercholesterolemia S/P aortic valve replacement Heart valve replaced by other means Coronary 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, unspecified vessel or lesion type Skin mole Benign neoplasm of skin, site unspecified Type 2 diabetes mellitus with retinopathy of both eyes, with long-term current use of insulin, macular edema presence unspecified, unspecified retinopathy severity (HCC)- Primary Essential hypertension Unspecified essential hypertension Encounter for immunization Essential hypertension Unspecified essential hypertension Hyperlipidemia, unspecified hyperlipidemia type Persistent atrial fibrillation (HCC) Atrial fibrillation S/P CABG (coronary artery bypass graft) Postsurgical aortocoronary bypass status S/P aortic valve replacement Heart valve replaced by other means Persistent atrial fibrillation (HCC) Atrial fibrillation Anxiety and depression- Primary Balance disorder Encounter for immunization At low risk for fall- Primary Ventricular fibrillation (HCC) Ventricular fibrillation Primary hypertension Unspecified essential hypertension 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, single episode, mild Anxiety and depression Encounter for immunization Type 2 diabetes mellitus with retinopathy of both eyes, with long-term current use of insulin, macular edema presence unspecified, unspecified retinopathy severity (HCC)- Primary Postoperative atrial fibrillation (HCC) 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, single episode, 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) Ventricular fibrillation (HCC) Ventricular fibrillation Morbid obesity (HCC) Morbid obesity 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) 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, sequela (HCC) Peripheral vascular disease, unspecified (HCC) Peripheral vascular disease, unspecified Essential hypertension Unspecified essential hypertension Colon cancer screening Special screening for malignant neoplasms, colon Chest discomfort Other chest pain Hyperlipidemia, unspecified hyperlipidemia type Need for COVID-19 vaccine Coronary 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, unspecified vessel or lesion type- Primary 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, with long-term current use of insulin, macular edema presence unspecified, unspecified retinopathy severity (HCC) Intermittent claudication (HCC) Unspecified peripheral vascular disease Persistent atrial fibrillation (HCC) Atrial fibrillation S/P CABG (coronary artery bypass graft) Postsurgical aortocoronary bypass status S/P aortic valve replacement Heart valve replaced by other means At low risk for fall- Primary 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, single episode, mild Persistent atrial fibrillation (HCC) Atrial fibrillation Medicare annual wellness visit, subsequent Need for COVID-19 vaccine Advanced directives, counseling/discussion Other specified counseling PAD (peripheral artery disease) (HCC) Unspecified peripheral vascular disease Type 2 diabetes mellitus with retinopathy of both eyes, with long-term current use of insulin, macular edema presence unspecified, unspecified retinopathy severity (HCC)- Primary 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, single episode, mild Peripheral vascular disease, unspecified (HCC) Peripheral vascular disease, unspecified Persistent atrial fibrillation (HCC) Atrial fibrillation Morbid obesity (HCC) Morbid obesity 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) 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, sequela (HCC) Hypertensive heart disease with heart failure (HCC) Unspecified hypertensive heart disease with heart failure Malignant neoplasm of buccal sulcus (HCC) Cough, unspecified type PAD (peripheral artery disease) ([facility]) Unspecified peripheral vascular disease 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, bilateral legs (HCC) Diarrhea, unspecified type- Primary Essential hypertension Unspecified essential hypertension Hyperlipidemia, unspecified hyperlipidemia type Persistent atrial fibrillation (HCC) Atrial fibrillation 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, bilateral legs (HCC) Persistent atrial fibrillation (HCC)- Primary Atrial fibrillation S/P CABG (coronary artery bypass graft) Postsurgical aortocoronary bypass status S/P aortic valve replacement Heart valve replaced by other means Persistent atrial fibrillation (HCC)- Primary Atrial fibrillation Essential hypertension Unspecified essential hypertension PAD (peripheral artery disease) (HCC) Unspecified peripheral vascular disease S/P CABG (coronary artery bypass graft) Postsurgical aortocoronary bypass status S/P aortic valve replacement Heart valve replaced by other means Type 2 diabetes mellitus with other circulatory complication, with long-term current use of insulin (HCC)- Primary 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 heart disease with heart failure (HCC) Unspecified hypertensive heart disease with heart failure 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, single episode, mild Traumatic subdural hemorrhage with unknown loss of consciousness status, subsequent encounter Morbid obesity (HCC) Morbid obesity 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, sequela (HCC) 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, bilateral legs (HCC) Type 2 diabetes mellitus with retinopathy of both eyes, with long-term current use of insulin, macular edema presence unspecified, unspecified retinopathy severity (HCC) PAD (peripheral artery disease) (HCC) Unspecified peripheral vascular disease Medicare annual wellness visit, subsequent Sensorineural hearing loss (SNHL) of both ears At high risk for falls PAD (peripheral artery disease) (HCC) Unspecified peripheral vascular disease 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, bilateral legs (HCC) documented in this encounter [facility] note* Diagnosis Coronary artery disease involving [place] coronary artery of [place] heart without angina pectoris- Primary Essential hypertension Unspecified essential hypertension S/P AVR (aortic valve replacement) Heart valve replaced by other means HLD (hyperlipidemia) Other and unspecified hyperlipidemia Persistent atrial fibrillation (HCC) Atrial fibrillation S/P CABG (coronary artery bypass graft) Postsurgical aortocoronary bypass status S/P aortic valve replacement Heart valve replaced by other means Postoperative atrial fibrillation (HCC) 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 pectoris- Primary Essential hypertension, hypertension with unspecified goal Persistent atrial fibrillation (HCC) Atrial fibrillation S/P CABG (coronary artery bypass graft) Postsurgical aortocoronary bypass status S/P AVR (aortic valve replacement) Heart valve replaced by other means S/P CABG (coronary artery bypass graft) Postsurgical aortocoronary bypass status Chest pain, unspecified type- Primary Secondary hypertension Other secondary hypertension, unspecified Other secondary hypertension S/P CABG (coronary artery bypass graft) Postsurgical aortocoronary bypass status RBBB S/P aortic valve replacement Heart valve replaced by other means Hyperlipidemia, unspecified hyperlipidemia type Hypercholesterolemia Pure hypercholesterolemia S/P aortic valve replacement Heart valve replaced by other means S/P CABG (coronary artery bypass graft) Postsurgical aortocoronary bypass status S/P CABG (coronary artery bypass graft) Postsurgical aortocoronary bypass status S/P aortic valve replacement- Primary Heart valve replaced by other means S/P CABG (coronary artery bypass graft) Postsurgical aortocoronary bypass status S/P CABG (coronary artery bypass graft) Postsurgical aortocoronary bypass status Coronary 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, unspecified vessel or lesion type- Primary Chest pain, unspecified type Prominent abdominal aortic pulse S/P aortic valve replacement Heart valve replaced by other means Essential hypertension Unspecified essential hypertension S/P CABG (coronary artery bypass graft) Postsurgical aortocoronary bypass status Hyperlipidemia, unspecified hyperlipidemia type S/P CABG (coronary artery bypass graft) Postsurgical aortocoronary bypass status S/P CABG (coronary artery bypass graft) Postsurgical aortocoronary bypass status Encounter to establish care- Primary 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, with long-term current use of insulin, macular edema presence unspecified, unspecified retinopathy severity (HCC) Postoperative atrial fibrillation (HCC) Morbid obesity (HCC) Morbid obesity Essential hypertension Unspecified essential hypertension 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, sequela (HCC) Hypercholesterolemia Pure hypercholesterolemia S/P aortic valve replacement Heart valve replaced by other means Coronary 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, unspecified vessel or lesion type Skin mole Benign neoplasm of skin, site unspecified Type 2 diabetes mellitus with retinopathy of both eyes, with long-term current use of insulin, macular edema presence unspecified, unspecified retinopathy severity (HCC)- Primary Essential hypertension Unspecified essential hypertension Encounter for immunization Essential hypertension Unspecified essential hypertension Hyperlipidemia, unspecified hyperlipidemia type Persistent atrial fibrillation (HCC) Atrial fibrillation S/P CABG (coronary artery bypass graft) Postsurgical aortocoronary bypass status S/P aortic valve replacement Heart valve replaced by other means Persistent atrial fibrillation (HCC) Atrial fibrillation Anxiety and depression- Primary Balance disorder Encounter for immunization At low risk for fall- Primary Ventricular fibrillation (HCC) Ventricular fibrillation Primary hypertension Unspecified essential hypertension Mild major depression Major depressive disorder, single episode, mild Anxiety and depression Encounter for immunization Type 2 diabetes mellitus with retinopathy of both eyes, with long-term current use of insulin, macular edema presence unspecified, unspecified retinopathy severity (HCC)- Primary Postoperative atrial fibrillation (HCC) Mild major depression Major depressive disorder, single episode, 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) Ventricular fibrillation (HCC) Ventricular fibrillation Morbid obesity (HCC) Morbid obesity 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) 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, sequela (HCC) Peripheral vascular disease, unspecified Essential hypertension Unspecified essential hypertension Colon cancer screening Special screening for malignant neoplasms, colon Chest discomfort Other chest pain Hyperlipidemia, unspecified hyperlipidemia type Need for COVID-19 vaccine Coronary 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, unspecified vessel or lesion type- Primary 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, with long-term current use of insulin, macular edema presence unspecified, unspecified retinopathy severity (HCC) Intermittent claudication Unspecified peripheral vascular disease Persistent atrial fibrillation (HCC) Atrial fibrillation S/P CABG (coronary artery bypass graft) Postsurgical aortocoronary bypass status S/P aortic valve replacement Heart valve replaced by other means At low risk for fall- Primary Mild major depression Major depressive disorder, single episode, mild Persistent atrial fibrillation (HCC) Atrial fibrillation Medicare annual wellness visit, subsequent Need for COVID-19 vaccine Advanced directives, counseling/discussion Other specified counseling PAD (peripheral artery disease) (HCC) Unspecified peripheral vascular disease Type 2 diabetes mellitus with retinopathy of both eyes, with long-term current use of insulin, macular edema presence unspecified, unspecified retinopathy severity (HCC)- Primary Mild major depression Major depressive disorder, single episode, mild Peripheral vascular disease, unspecified Persistent atrial fibrillation (HCC) Atrial fibrillation Morbid obesity (HCC) Morbid obesity 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) 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, sequela (HCC) Hypertensive heart disease with heart failure (HCC) Unspecified hypertensive heart disease with heart failure Malignant neoplasm of buccal sulcus (HCC) Cough, unspecified type PAD (peripheral artery disease) (HCC) Unspecified peripheral vascular disease 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, bilateral legs (HCC) Diarrhea, unspecified type- Primary Essential hypertension Unspecified essential hypertension Hyperlipidemia, unspecified hyperlipidemia type Persistent atrial fibrillation (HCC) Atrial fibrillation 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, bilateral legs (HCC) Persistent atrial fibrillation (HCC)- Primary Atrial fibrillation S/P CABG (coronary artery bypass graft) Postsurgical aortocoronary bypass status S/P aortic valve replacement Heart valve replaced by other means Persistent atrial fibrillation (HCC)- Primary Atrial fibrillation Essential hypertension Unspecified essential hypertension PAD (peripheral artery disease) (HCC) Unspecified peripheral vascular disease S/P CABG (coronary artery bypass graft) Postsurgical aortocoronary bypass status S/P aortic valve replacement Heart valve replaced by other means Type 2 diabetes mellitus with other circulatory complication, with long-term current use of insulin (HCC)- Primary 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 heart disease with heart failure (HCC) Unspecified hypertensive heart disease with heart failure 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, single episode, mild Traumatic subdural hemorrhage with unknown loss of consciousness status, subsequent encounter Morbid obesity (HCC) Morbid obesity 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, sequela (HCC) 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, bilateral legs (HCC) Type 2 diabetes mellitus with retinopathy of both eyes, with long-term current use of insulin, macular edema presence unspecified, unspecified retinopathy severity (HCC) PAD (peripheral artery disease) (HCC) Unspecified peripheral vascular disease Medicare annual wellness visit, subsequent Sensorineural hearing loss (SNHL) of both ears At high risk for falls Essential hypertension Unspecified essential hypertension Hyperlipidemia, unspecified hyperlipidemia type documented in this encounter [facility] note* Diagnosis Coronary artery disease involving [place] coronary artery of [place] heart without angina pectoris- Primary Essential hypertension Unspecified essential hypertension S/P AVR (aortic valve replacement) Heart valve replaced by other means HLD (hyperlipidemia) Other and unspecified hyperlipidemia Persistent atrial fibrillation (HCC) Atrial fibrillation S/P CABG (coronary artery bypass graft) Postsurgical aortocoronary bypass status S/P aortic valve replacement Heart valve replaced by other means Postoperative atrial fibrillation (HCC) 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 pectoris- Primary Essential hypertension, hypertension with unspecified goal Persistent atrial fibrillation ([facility]) Atrial fibrillation S/P CABG (coronary artery bypass graft) Postsurgical aortocoronary bypass status S/P AVR (aortic valve replacement) Heart valve replaced by other means S/P CABG (coronary artery bypass graft) Postsurgical aortocoronary bypass status Chest pain, unspecified type- Primary Secondary hypertension Other secondary hypertension, unspecified Other secondary hypertension S/P CABG (coronary artery bypass graft) Postsurgical aortocoronary bypass status RBBB S/P aortic valve replacement Heart valve replaced by other means Hyperlipidemia, unspecified hyperlipidemia type Hypercholesterolemia Pure hypercholesterolemia S/P aortic valve replacement Heart valve replaced by other means S/P CABG (coronary artery bypass graft) Postsurgical aortocoronary bypass status S/P CABG (coronary artery bypass graft) Postsurgical aortocoronary bypass status S/P aortic valve replacement- Primary Heart valve replaced by other means S/P CABG (coronary artery bypass graft) Postsurgical aortocoronary bypass status S/P CABG (coronary artery bypass graft) Postsurgical aortocoronary bypass status Coronary 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, unspecified vessel or lesion type- Primary Chest pain, unspecified type Prominent abdominal aortic pulse S/P aortic valve replacement Heart valve replaced by other means Essential hypertension Unspecified essential hypertension S/P CABG (coronary artery bypass graft) Postsurgical aortocoronary bypass status Hyperlipidemia, unspecified hyperlipidemia type S/P CABG (coronary artery bypass graft) Postsurgical aortocoronary bypass status S/P CABG (coronary artery bypass graft) Postsurgical aortocoronary bypass status Encounter to establish care- Primary 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, with long-term current use of insulin, macular edema presence unspecified, unspecified retinopathy severity (HCC) Postoperative atrial fibrillation (HCC) Morbid obesity (HCC) Morbid obesity Essential hypertension Unspecified essential hypertension 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, sequela (HCC) Hypercholesterolemia Pure hypercholesterolemia S/P aortic valve replacement Heart valve replaced by other means Coronary 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, unspecified vessel or lesion type Skin mole Benign neoplasm of skin, site unspecified Type 2 diabetes mellitus with retinopathy of both eyes, with long-term current use of insulin, macular edema presence unspecified, unspecified retinopathy severity (HCC)- Primary Essential hypertension Unspecified essential hypertension Encounter for immunization Essential hypertension Unspecified essential hypertension Hyperlipidemia, unspecified hyperlipidemia type Persistent atrial fibrillation (HCC) Atrial fibrillation S/P CABG (coronary artery bypass graft) Postsurgical aortocoronary bypass status S/P aortic valve replacement Heart valve replaced by other means Persistent atrial fibrillation (HCC) Atrial fibrillation Anxiety and depression- Primary Balance disorder Encounter for immunization At low risk for fall- Primary Ventricular fibrillation (HCC) Ventricular fibrillation Primary hypertension Unspecified essential hypertension Mild major depression Major depressive disorder, single episode, mild Anxiety and depression Encounter for immunization Type 2 diabetes mellitus with retinopathy of both eyes, with long-term current use of insulin, macular edema presence unspecified, unspecified retinopathy severity (HCC)- Primary Postoperative atrial fibrillation (HCC) Mild major depression Major depressive disorder, single episode, 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) Ventricular fibrillation (HCC) Ventricular fibrillation Morbid obesity (HCC) Morbid obesity 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) 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, sequela (HCC) Peripheral vascular disease, unspecified Essential hypertension Unspecified essential hypertension Colon cancer screening Special screening for malignant neoplasms, colon Chest discomfort Other chest pain Hyperlipidemia, unspecified hyperlipidemia type Need for COVID-19 vaccine Coronary 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, unspecified vessel or lesion type- Primary 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, with long-term current use of insulin, macular edema presence unspecified, unspecified retinopathy severity (HCC) Intermittent claudication Unspecified peripheral vascular disease Persistent atrial fibrillation (HCC) Atrial fibrillation S/P CABG (coronary artery bypass graft) Postsurgical aortocoronary bypass status S/P aortic valve replacement Heart valve replaced by other means At low risk for fall- Primary Mild major depression Major depressive disorder, single episode, mild Persistent atrial fibrillation (HCC) Atrial fibrillation Medicare annual wellness visit, subsequent Need for COVID-19 vaccine Advanced directives, counseling/discussion Other specified counseling PAD (peripheral artery disease) (HCC) Unspecified peripheral vascular disease Type 2 diabetes mellitus with retinopathy of both eyes, with long-term current use of insulin, macular edema presence unspecified, unspecified retinopathy severity (HCC)- Primary Mild major depression Major depressive disorder, single episode, mild Peripheral vascular disease, unspecified Persistent atrial fibrillation (HCC) Atrial fibrillation Morbid obesity (HCC) Morbid obesity 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) 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, sequela (HCC) Hypertensive heart disease with heart failure (HCC) Unspecified hypertensive heart disease with heart failure Malignant neoplasm of buccal sulcus (HCC) Cough, unspecified type PAD (peripheral artery disease) (HCC) Unspecified peripheral vascular disease 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, bilateral legs (HCC) Diarrhea, unspecified type- Primary Essential hypertension Unspecified essential hypertension Hyperlipidemia, unspecified hyperlipidemia type Persistent atrial fibrillation (HCC) Atrial fibrillation 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, bilateral legs (HCC) Persistent atrial fibrillation (HCC)- Primary Atrial fibrillation S/P CABG (coronary artery bypass graft) Postsurgical aortocoronary bypass status S/P aortic valve replacement Heart valve replaced by other means Persistent atrial fibrillation (HCC)- Primary Atrial fibrillation Essential hypertension Unspecified essential hypertension PAD (peripheral artery disease) (HCC) Unspecified peripheral vascular disease S/P CABG (coronary artery bypass graft) Postsurgical aortocoronary bypass status S/P aortic valve replacement Heart valve replaced by other means Type 2 diabetes mellitus with other circulatory complication, with long-term current use of insulin (HCC)- Primary 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 heart disease with heart failure (HCC) Unspecified hypertensive heart disease with heart failure 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, single episode, mild Traumatic subdural hemorrhage with unknown loss of consciousness status, subsequent encounter Morbid obesity (HCC) Morbid obesity 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, sequela (HCC) 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, bilateral legs (HCC) Type 2 diabetes mellitus with retinopathy of both eyes, with long-term current use of insulin, macular edema presence unspecified, unspecified retinopathy severity (HCC) PAD (peripheral artery disease) (HCC) Unspecified peripheral vascular disease Medicare annual wellness visit, subsequent Sensorineural hearing loss (SNHL) of both ears At high risk for falls Essential hypertension Unspecified essential hypertension [facility] Diagnosis Coronary artery disease involving [place] coronary artery of [place] heart without angina pectoris- Primary Essential hypertension Unspecified essential hypertension S/P AVR (aortic valve replacement) Heart valve replaced by other means HLD (hyperlipidemia) Other and unspecified hyperlipidemia Persistent atrial fibrillation (HCC) Atrial fibrillation S/P CABG (coronary artery bypass graft) Postsurgical aortocoronary bypass status S/P aortic valve replacement Heart valve replaced by other means Postoperative atrial fibrillation (HCC) 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 pectoris- Primary Essential hypertension, hypertension with unspecified goal Persistent atrial fibrillation ([facility]) Atrial fibrillation S/P CABG (coronary artery bypass graft) Postsurgical aortocoronary bypass status S/P AVR (aortic valve replacement) Heart valve replaced by other means S/P CABG (coronary artery bypass graft) Postsurgical aortocoronary bypass status Chest pain, unspecified type- Primary Secondary hypertension Other secondary hypertension, unspecified Other secondary hypertension S/P CABG (coronary artery bypass graft) Postsurgical aortocoronary bypass status RBBB S/P aortic valve replacement Heart valve replaced by other means Hyperlipidemia, unspecified hyperlipidemia type Hypercholesterolemia Pure hypercholesterolemia S/P aortic valve replacement Heart valve replaced by other means S/P CABG (coronary artery bypass graft) Postsurgical aortocoronary bypass status S/P CABG (coronary artery bypass graft) Postsurgical aortocoronary bypass status S/P aortic valve replacement- Primary Heart valve replaced by other means S/P CABG (coronary artery bypass graft) Postsurgical aortocoronary bypass status S/P CABG (coronary artery bypass graft) Postsurgical aortocoronary bypass status Coronary 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, unspecified vessel or lesion type- Primary Chest pain, unspecified type Prominent abdominal aortic pulse S/P aortic valve replacement Heart valve replaced by other means Essential hypertension Unspecified essential hypertension S/P CABG (coronary artery bypass graft) Postsurgical aortocoronary bypass status Hyperlipidemia, unspecified hyperlipidemia type S/P CABG (coronary artery bypass graft) Postsurgical aortocoronary bypass status S/P CABG (coronary artery bypass graft) Postsurgical aortocoronary bypass status Encounter to establish care- Primary 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, with long-term current use of insulin, macular edema presence unspecified, unspecified retinopathy severity (HCC) Postoperative atrial fibrillation (HCC) Morbid obesity (HCC) Morbid obesity Essential hypertension Unspecified essential hypertension 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, sequela (HCC) Hypercholesterolemia Pure hypercholesterolemia S/P aortic valve replacement Heart valve replaced by other means Coronary 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, unspecified vessel or lesion type Skin mole Benign neoplasm of skin, site unspecified Type 2 diabetes mellitus with retinopathy of both eyes, with long-term current use of insulin, macular edema presence unspecified, unspecified retinopathy severity (HCC)- Primary Essential hypertension Unspecified essential hypertension Encounter for immunization Essential hypertension Unspecified essential hypertension Hyperlipidemia, unspecified hyperlipidemia type Persistent atrial fibrillation (HCC) Atrial fibrillation S/P CABG (coronary artery bypass graft) Postsurgical aortocoronary bypass status S/P aortic valve replacement Heart valve replaced by other means Persistent atrial fibrillation (HCC) Atrial fibrillation Anxiety and depression- Primary Balance disorder Encounter for immunization At low risk for fall- Primary Ventricular fibrillation (HCC) Ventricular fibrillation Primary hypertension Unspecified essential hypertension Mild major depression Major depressive disorder, single episode, mild Anxiety and depression Encounter for immunization Type 2 diabetes mellitus with retinopathy of both eyes, with long-term current use of insulin, macular edema presence unspecified, unspecified retinopathy severity (HCC)- Primary Postoperative atrial fibrillation (HCC) Mild major depression Major depressive disorder, single episode, 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) Ventricular fibrillation (HCC) Ventricular fibrillation Morbid obesity (HCC) Morbid obesity 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) 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, sequela (HCC) Peripheral vascular disease, unspecified Essential hypertension Unspecified essential hypertension Colon cancer screening Special screening for malignant neoplasms, colon Chest discomfort Other chest pain Hyperlipidemia, unspecified hyperlipidemia type Need for COVID-19 vaccine Coronary 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, unspecified vessel or lesion type- Primary 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, with long-term current use of insulin, macular edema presence unspecified, unspecified retinopathy severity (HCC) Intermittent claudication Unspecified peripheral vascular disease Persistent atrial fibrillation (HCC) Atrial fibrillation S/P CABG (coronary artery bypass graft) Postsurgical aortocoronary bypass status S/P aortic valve replacement Heart valve replaced by other means At low risk for fall- Primary Mild major depression Major depressive disorder, single episode, mild Persistent atrial fibrillation (HCC) Atrial fibrillation Medicare annual wellness visit, subsequent Need for COVID-19 vaccine Advanced directives, counseling/discussion Other specified counseling PAD (peripheral artery disease) (HCC) Unspecified peripheral vascular disease Type 2 diabetes mellitus with retinopathy of both eyes, with long-term current use of insulin, macular edema presence unspecified, unspecified retinopathy severity (HCC)- Primary Mild major depression Major depressive disorder, single episode, mild Peripheral vascular disease, unspecified Persistent atrial fibrillation (HCC) Atrial fibrillation Morbid obesity (HCC) Morbid obesity 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) 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, sequela (HCC) Hypertensive heart disease with heart failure (HCC) Unspecified hypertensive heart disease with heart failure Malignant neoplasm of buccal sulcus (HCC) Cough, unspecified type PAD (peripheral artery disease) (HCC) Unspecified peripheral vascular disease 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, bilateral legs (HCC) Diarrhea, unspecified type- Primary Essential hypertension Unspecified essential hypertension Hyperlipidemia, unspecified hyperlipidemia type Persistent atrial fibrillation (HCC) Atrial fibrillation 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, bilateral legs (HCC) Persistent atrial fibrillation (HCC)- Primary Atrial fibrillation S/P CABG (coronary artery bypass graft) Postsurgical aortocoronary bypass status S/P aortic valve replacement Heart valve replaced by other means Persistent atrial fibrillation (HCC)- Primary Atrial fibrillation Essential hypertension Unspecified essential hypertension PAD (peripheral artery disease) (HCC) Unspecified peripheral vascular disease S/P CABG (coronary artery bypass graft) Postsurgical aortocoronary bypass status S/P aortic valve replacement Heart valve replaced by other means Type 2 diabetes mellitus with other circulatory complication, with long-term current use of insulin ([facility])- Primary 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 heart disease with heart failure (HCC) Unspecified hypertensive heart disease with heart failure 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 ([facility]) Mild major depression Major depressive disorder, single episode, mild Traumatic subdural hemorrhage with unknown loss of consciousness status, subsequent encounter Morbid obesity (HCC) Morbid obesity 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, sequela ([facility]) 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, bilateral legs ([facility]) Type 2 diabetes mellitus with retinopathy of both eyes, with long-term current use of insulin, macular edema presence unspecified, unspecified retinopathy severity ([facility]) PAD (peripheral artery disease) ([facility]) Unspecified peripheral vascular disease Medicare annual wellness visit, subsequent Sensorineural hearing loss (SNHL) of both ears At high risk for falls PAD (peripheral artery disease) ([facility])- Primary Unspecified peripheral vascular disease Essential hypertension Unspecified essential hypertension Primary hypertension Unspecified essential hypertension Persistent atrial fibrillation ([facility]) Atrial fibrillation S/P CABG (coronary artery bypass graft) Postsurgical aortocoronary bypass status S/P AVR [facility]* Diagnosis Coronary artery disease involving [place] coronary artery of [place] heart without angina pectoris- Primary Essential hypertension Unspecified essential hypertension S/P AVR (aortic valve replacement) Heart valve replaced by other means HLD (hyperlipidemia) Other and unspecified hyperlipidemia Persistent atrial fibrillation (HCC) Atrial fibrillation S/P CABG (coronary artery bypass graft) Postsurgical aortocoronary bypass status S/P aortic valve replacement Heart valve replaced by other means Postoperative atrial fibrillation ([facility]) 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 pectoris- Primary Essential hypertension, hypertension with unspecified goal Persistent atrial fibrillation ([facility]) Atrial fibrillation S/P CABG (coronary artery bypass graft) Postsurgical aortocoronary bypass status S/P AVR (aortic valve replacement) Heart valve replaced by other means S/P CABG (coronary artery bypass graft) Postsurgical aortocoronary bypass status Chest pain, unspecified type- Primary Secondary hypertension Other secondary hypertension, unspecified Other secondary hypertension S/P CABG (coronary artery bypass graft) Postsurgical aortocoronary bypass status RBBB S/P aortic valve replacement Heart valve replaced by other means Hyperlipidemia, unspecified hyperlipidemia type Hypercholesterolemia Pure hypercholesterolemia S/P aortic valve replacement Heart valve replaced by other means S/P CABG (coronary artery bypass graft) Postsurgical aortocoronary bypass status S/P CABG (coronary artery bypass graft) Postsurgical aortocoronary bypass status S/P aortic valve replacement- Primary Heart valve replaced by other means S/P CABG (coronary artery bypass graft) Postsurgical aortocoronary bypass status S/P CABG (coronary artery bypass graft) Postsurgical aortocoronary bypass status Coronary 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, unspecified vessel or lesion type- Primary Chest pain, unspecified type Prominent abdominal aortic pulse S/P aortic valve replacement Heart valve replaced by other means Essential hypertension Unspecified essential hypertension S/P CABG (coronary artery bypass graft) Postsurgical aortocoronary bypass status Hyperlipidemia, unspecified hyperlipidemia type S/P CABG (coronary artery bypass graft) Postsurgical aortocoronary bypass status S/P CABG (coronary artery bypass graft) Postsurgical aortocoronary bypass status Encounter to establish care- Primary 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, with long-term current use of insulin, macular edema presence unspecified, unspecified retinopathy severity (HCC) Postoperative atrial fibrillation (HCC) Morbid obesity (HCC) Morbid obesity Essential hypertension Unspecified essential hypertension 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, sequela (HCC) Hypercholesterolemia Pure hypercholesterolemia S/P aortic valve replacement Heart valve replaced by other means Coronary 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, unspecified vessel or lesion type Skin mole Benign neoplasm of skin, site unspecified Type 2 diabetes mellitus with retinopathy of both eyes, with long-term current use of insulin, macular edema presence unspecified, unspecified retinopathy severity (HCC)- Primary Essential hypertension Unspecified essential hypertension Encounter for immunization Essential hypertension Unspecified essential hypertension Hyperlipidemia, unspecified hyperlipidemia type Persistent atrial fibrillation (HCC) Atrial fibrillation S/P CABG (coronary artery bypass graft) Postsurgical aortocoronary bypass status S/P aortic valve replacement Heart valve replaced by other means Persistent atrial fibrillation (HCC) Atrial fibrillation Anxiety and depression- Primary Balance disorder Encounter for immunization At low risk for fall- Primary Ventricular fibrillation (HCC) Ventricular fibrillation Primary hypertension Unspecified essential hypertension Mild major depression Major depressive disorder, single episode, mild Anxiety and depression Encounter for immunization Type 2 diabetes mellitus with retinopathy of both eyes, with long-term current use of insulin, macular edema presence unspecified, unspecified retinopathy severity (HCC)- Primary Postoperative atrial fibrillation (HCC) Mild major depression Major depressive disorder, single episode, 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) Ventricular fibrillation (HCC) Ventricular fibrillation Morbid obesity (HCC) Morbid obesity 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) 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, sequela (HCC) Peripheral vascular disease, unspecified Essential hypertension Unspecified essential hypertension Colon cancer screening Special screening for malignant neoplasms, colon Chest discomfort Other chest pain Hyperlipidemia, unspecified hyperlipidemia type Need for COVID-19 vaccine Coronary 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, unspecified vessel or lesion type- Primary 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, with long-term current use of insulin, macular edema presence unspecified, unspecified retinopathy severity (HCC) Intermittent claudication Unspecified peripheral vascular disease Persistent atrial fibrillation (HCC) Atrial fibrillation S/P CABG (coronary artery bypass graft) Postsurgical aortocoronary bypass status S/P aortic valve replacement Heart valve replaced by other means At low risk for fall- Primary Mild major depression Major depressive disorder, single episode, mild Persistent atrial fibrillation (HCC) Atrial fibrillation Medicare annual wellness visit, subsequent Need for COVID-19 vaccine Advanced directives, counseling/discussion Other specified counseling PAD (peripheral artery disease) (HCC) Unspecified peripheral vascular disease Type 2 diabetes mellitus with retinopathy of both eyes, with long-term current use of insulin, macular edema presence unspecified, unspecified retinopathy severity (HCC)- Primary Mild major depression Major depressive disorder, single episode, mild Peripheral vascular disease, unspecified Persistent atrial fibrillation (HCC) Atrial fibrillation Morbid obesity (HCC) Morbid obesity 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) 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, sequela (HCC) Hypertensive heart disease with heart failure (HCC) Unspecified hypertensive heart disease with heart failure Malignant neoplasm of buccal sulcus (HCC) Cough, unspecified type PAD (peripheral artery disease) (HCC) Unspecified peripheral vascular disease 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, bilateral legs (HCC) Diarrhea, unspecified type- Primary Essential hypertension Unspecified essential hypertension Hyperlipidemia, unspecified hyperlipidemia type Persistent atrial fibrillation (HCC) Atrial fibrillation 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, bilateral legs (HCC) Persistent atrial fibrillation (HCC)- Primary Atrial fibrillation S/P CABG (coronary artery bypass graft) Postsurgical aortocoronary bypass status S/P aortic valve replacement Heart valve replaced by other means Persistent atrial fibrillation (HCC)- Primary Atrial fibrillation Essential hypertension Unspecified essential hypertension PAD (peripheral artery disease) ([facility]) Unspecified peripheral vascular disease S/P CABG (coronary artery bypass graft) Postsurgical aortocoronary bypass status S/P aortic valve replacement Heart valve replaced by other means Type 2 diabetes mellitus with other circulatory complication, with long-term current use of insulin ([facility])- Primary 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 heart disease with heart failure (HCC) Unspecified hypertensive heart disease with heart failure 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, single episode, mild Traumatic subdural hemorrhage with unknown loss of consciousness status, subsequent encounter Morbid obesity (HCC) Morbid obesity 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, sequela (HCC) 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, bilateral legs (HCC) Type 2 diabetes mellitus with retinopathy of both eyes, with long-term current use of insulin, macular edema presence unspecified, unspecified retinopathy severity ([facility]) PAD (peripheral artery disease) ([facility]) Unspecified peripheral vascular disease Medicare annual wellness visit, subsequent Sensorineural hearing loss (SNHL) of both ears At high risk for falls PAD (peripheral artery disease) ([facility])- Primary Unspecified peripheral vascular disease Essential hypertension Unspecified essential hypertension Primary hypertension Unspecified essential hypertension Persistent atrial fibrillation (HCC) Atrial fibrillation S/P CABG (coronary artery bypass graft) Postsurgical aortocoronary bypass status S/P AVR Ganglion cyst- Primary Unspecified ganglion [facility] Diagnosis Coronary artery disease involving [place] coronary artery of [place] heart without angina pectoris- Primary Essential hypertension Unspecified essential hypertension S/P AVR (aortic valve replacement) Heart valve replaced by other means HLD (hyperlipidemia) Other and unspecified hyperlipidemia Persistent atrial fibrillation (HCC) Atrial fibrillation S/P CABG (coronary artery bypass graft) Postsurgical aortocoronary bypass status S/P aortic valve replacement Heart valve replaced by other means Postoperative atrial fibrillation (HCC) 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 pectoris- Primary Essential hypertension, hypertension with unspecified goal Persistent atrial fibrillation (HCC) Atrial fibrillation S/P CABG (coronary artery bypass graft) Postsurgical aortocoronary bypass status S/P AVR (aortic valve replacement) Heart valve replaced by other means S/P CABG (coronary artery bypass graft) Postsurgical aortocoronary bypass status Chest pain, unspecified type- Primary Secondary hypertension Other secondary hypertension, unspecified Other secondary hypertension S/P CABG (coronary artery bypass graft) Postsurgical aortocoronary bypass status RBBB S/P aortic valve replacement Heart valve replaced by other means Hyperlipidemia, unspecified hyperlipidemia type Hypercholesterolemia Pure hypercholesterolemia S/P aortic valve replacement Heart valve replaced by other means S/P CABG (coronary artery bypass graft) Postsurgical aortocoronary bypass status S/P CABG (coronary artery bypass graft) Postsurgical aortocoronary bypass status S/P aortic valve replacement- Primary Heart valve replaced by other means S/P CABG (coronary artery bypass graft) Postsurgical aortocoronary bypass status S/P CABG (coronary artery bypass graft) Postsurgical aortocoronary bypass status Coronary 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, unspecified vessel or lesion type- Primary Chest pain, unspecified type Prominent abdominal aortic pulse S/P aortic valve replacement Heart valve replaced by other means Essential hypertension Unspecified essential hypertension S/P CABG (coronary artery bypass graft) Postsurgical aortocoronary bypass status Hyperlipidemia, unspecified hyperlipidemia type S/P CABG (coronary artery bypass graft) Postsurgical aortocoronary bypass status S/P CABG (coronary artery bypass graft) Postsurgical aortocoronary bypass status Encounter to establish care- Primary 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, with long-term current use of insulin, macular edema presence unspecified, unspecified retinopathy severity (HCC) Postoperative atrial fibrillation (HCC) Morbid obesity (HCC) Morbid obesity Essential hypertension Unspecified essential hypertension 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, sequela (HCC) Hypercholesterolemia Pure hypercholesterolemia S/P aortic valve replacement Heart valve replaced by other means Coronary 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, unspecified vessel or lesion type Skin mole Benign neoplasm of skin, site unspecified Type 2 diabetes mellitus with retinopathy of both eyes, with long-term current use of insulin, macular edema presence unspecified, unspecified retinopathy severity (HCC)- Primary Essential hypertension Unspecified essential hypertension Encounter for immunization Essential hypertension Unspecified essential hypertension Hyperlipidemia, unspecified hyperlipidemia type Persistent atrial fibrillation (HCC) Atrial fibrillation S/P CABG (coronary artery bypass graft) Postsurgical aortocoronary bypass status S/P aortic valve replacement Heart valve replaced by other means Persistent atrial fibrillation (HCC) Atrial fibrillation Anxiety and depression- Primary Balance disorder Encounter for immunization At low risk for fall- Primary Ventricular fibrillation (HCC) Ventricular fibrillation Primary hypertension Unspecified essential hypertension Mild major depression Major depressive disorder, single episode, mild Anxiety and depression Encounter for immunization Type 2 diabetes mellitus with retinopathy of both eyes, with long-term current use of insulin, macular edema presence unspecified, unspecified retinopathy severity (HCC)- Primary Postoperative atrial fibrillation (HCC) Mild major depression Major depressive disorder, single episode, 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) Ventricular fibrillation (HCC) Ventricular fibrillation Morbid obesity (HCC) Morbid obesity 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) 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, sequela (HCC) Peripheral vascular disease, unspecified Essential hypertension Unspecified essential hypertension Colon cancer screening Special screening for malignant neoplasms, colon Chest discomfort Other chest pain Hyperlipidemia, unspecified hyperlipidemia type Need for COVID-19 vaccine Coronary 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, unspecified vessel or lesion type- Primary 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, with long-term current use of insulin, macular edema presence unspecified, unspecified retinopathy severity (HCC) Intermittent claudication Unspecified peripheral vascular disease Persistent atrial fibrillation (HCC) Atrial fibrillation S/P CABG (coronary artery bypass graft) Postsurgical aortocoronary bypass status S/P aortic valve replacement Heart valve replaced by other means At low risk for fall- Primary Mild major depression Major depressive disorder, single episode, mild Persistent atrial fibrillation (HCC) Atrial fibrillation Medicare annual wellness visit, subsequent Need for COVID-19 vaccine Advanced directives, counseling/discussion Other specified counseling PAD (peripheral artery disease) (HCC) Unspecified peripheral vascular disease Type 2 diabetes mellitus with retinopathy of both eyes, with long-term current use of insulin, macular edema presence unspecified, unspecified retinopathy severity (HCC)- Primary Mild major depression Major depressive disorder, single episode, mild Peripheral vascular disease, unspecified Persistent atrial fibrillation (HCC) Atrial fibrillation Morbid obesity (HCC) Morbid obesity 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) 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, sequela (HCC) Hypertensive heart disease with heart failure (HCC) Unspecified hypertensive heart disease with heart failure Malignant neoplasm of buccal sulcus (HCC) Cough, unspecified type PAD (peripheral artery disease) (HCC) Unspecified peripheral vascular disease 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, bilateral legs (HCC) Diarrhea, unspecified type- Primary Essential hypertension Unspecified essential hypertension Hyperlipidemia, unspecified hyperlipidemia type Persistent atrial fibrillation (HCC) Atrial fibrillation 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, bilateral legs (HCC) Persistent atrial fibrillation (HCC)- Primary Atrial fibrillation S/P CABG (coronary artery bypass graft) Postsurgical aortocoronary bypass status S/P aortic valve replacement Heart valve replaced by other means Persistent atrial fibrillation (HCC)- Primary Atrial fibrillation Essential hypertension Unspecified essential hypertension PAD (peripheral artery disease) (HCC) Unspecified peripheral vascular disease S/P CABG (coronary artery bypass graft) Postsurgical aortocoronary bypass status S/P aortic valve replacement Heart valve replaced by other means Type 2 diabetes mellitus with other circulatory complication, with long-term current use of insulin ([facility])- Primary Malignant neoplasm of buccal sulcus ([facility]) Hypertensive heart disease with heart failure ([facility]) Unspecified hypertensive heart disease with heart failure 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 ([facility]) Mild major depression Major depressive disorder, single episode, mild Traumatic subdural hemorrhage with unknown loss of consciousness status, subsequent encounter Morbid obesity (HCC) Morbid obesity 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, sequela (HCC) 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, bilateral legs (HCC) Type 2 diabetes mellitus with retinopathy of both eyes, with long-term current use of insulin, macular edema presence unspecified, unspecified retinopathy severity ([facility]) PAD (peripheral artery disease) ([facility]) Unspecified peripheral vascular disease Medicare annual wellness visit, subsequent Sensorineural hearing loss (SNHL) of both ears At high risk for falls PAD (peripheral artery disease) ([facility])- Primary Unspecified peripheral vascular disease Essential hypertension Unspecified essential hypertension Primary hypertension Unspecified essential hypertension Persistent atrial fibrillation (HCC) Atrial fibrillation S/P CABG (coronary artery bypass graft) Postsurgical aortocoronary bypass status S/P AVR Type 2 diabetes mellitus with retinopathy of both eyes, with long-term current use of insulin, macular edema presence unspecified, unspecified retinopathy severity ([facility])- Primary Hypercholesterolemia Pure hypercholesterolemia [facility] Diagnosis Coronary artery disease involving [place] coronary artery of [place] heart without angina pectoris- Primary Essential hypertension Unspecified essential hypertension S/P AVR (aortic valve replacement) Heart valve replaced by other means HLD (hyperlipidemia) Other and unspecified hyperlipidemia Persistent atrial fibrillation (HCC) Atrial fibrillation S/P CABG (coronary artery bypass graft) Postsurgical aortocoronary bypass status S/P aortic valve replacement Heart valve replaced by other means Postoperative atrial fibrillation (HCC) 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 pectoris- Primary Essential hypertension, hypertension with unspecified goal Persistent atrial fibrillation (HCC) Atrial fibrillation S/P CABG (coronary artery bypass graft) Postsurgical aortocoronary bypass status S/P AVR (aortic valve replacement) Heart valve replaced by other means S/P CABG (coronary artery bypass graft) Postsurgical aortocoronary bypass status Chest pain, unspecified type- Primary Secondary hypertension Other secondary hypertension, unspecified Other secondary hypertension S/P CABG (coronary artery bypass graft) Postsurgical aortocoronary bypass status RBBB S/P aortic valve replacement Heart valve replaced by other means Hyperlipidemia, unspecified hyperlipidemia type Hypercholesterolemia Pure hypercholesterolemia S/P aortic valve replacement Heart valve replaced by other means S/P CABG (coronary artery bypass graft) Postsurgical aortocoronary bypass status S/P CABG (coronary artery bypass graft) Postsurgical aortocoronary bypass status S/P aortic valve replacement- Primary Heart valve replaced by other means S/P CABG (coronary artery bypass graft) Postsurgical aortocoronary bypass status S/P CABG (coronary artery bypass graft) Postsurgical aortocoronary bypass status Coronary 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, unspecified vessel or lesion type- Primary Chest pain, unspecified type Prominent abdominal aortic pulse S/P aortic valve replacement Heart valve replaced by other means Essential hypertension Unspecified essential hypertension S/P CABG (coronary artery bypass graft) Postsurgical aortocoronary bypass status Hyperlipidemia, unspecified hyperlipidemia type S/P CABG (coronary artery bypass graft) Postsurgical aortocoronary bypass status S/P CABG (coronary artery bypass graft) Postsurgical aortocoronary bypass status Encounter to establish care- Primary 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, with long-term current use of insulin, macular edema presence unspecified, unspecified retinopathy severity (HCC) Postoperative atrial fibrillation (HCC) Morbid obesity (HCC) Morbid obesity Essential hypertension Unspecified essential hypertension 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, sequela (HCC) Hypercholesterolemia Pure hypercholesterolemia S/P aortic valve replacement Heart valve replaced by other means Coronary 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, unspecified vessel or lesion type Skin mole Benign neoplasm of skin, site unspecified Type 2 diabetes mellitus with retinopathy of both eyes, with long-term current use of insulin, macular edema presence unspecified, unspecified retinopathy severity (HCC)- Primary Essential hypertension Unspecified essential hypertension Encounter for immunization Essential hypertension Unspecified essential hypertension Hyperlipidemia, unspecified hyperlipidemia type Persistent atrial fibrillation (HCC) Atrial fibrillation S/P CABG (coronary artery bypass graft) Postsurgical aortocoronary bypass status S/P aortic valve replacement Heart valve replaced by other means Persistent atrial fibrillation (HCC) Atrial fibrillation Anxiety and depression- Primary Balance disorder Encounter for immunization At low risk for fall- Primary Ventricular fibrillation (HCC) Ventricular fibrillation Primary hypertension Unspecified essential hypertension Mild major depression Major depressive disorder, single episode, mild Anxiety and depression Encounter for immunization Type 2 diabetes mellitus with retinopathy of both eyes, with long-term current use of insulin, macular edema presence unspecified, unspecified retinopathy severity (HCC)- Primary Postoperative atrial fibrillation (HCC) Mild major depression Major depressive disorder, single episode, 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) Ventricular fibrillation (HCC) Ventricular fibrillation Morbid obesity (HCC) Morbid obesity 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) 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, sequela (HCC) Peripheral vascular disease, unspecified Essential hypertension Unspecified essential hypertension Colon cancer screening Special screening for malignant neoplasms, colon Chest discomfort Other chest pain Hyperlipidemia, unspecified hyperlipidemia type Need for COVID-19 vaccine Coronary 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, unspecified vessel or lesion type- Primary 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, with long-term current use of insulin, macular edema presence unspecified, unspecified retinopathy severity (HCC) Intermittent claudication Unspecified peripheral vascular disease Persistent atrial fibrillation (HCC) Atrial fibrillation S/P CABG (coronary artery bypass graft) Postsurgical aortocoronary bypass status S/P aortic valve replacement Heart valve replaced by other means At low risk for fall- Primary Mild major depression Major depressive disorder, single episode, mild Persistent atrial fibrillation (HCC) Atrial fibrillation Medicare annual wellness visit, subsequent Need for COVID-19 vaccine Advanced directives, counseling/discussion Other specified counseling PAD (peripheral artery disease) (HCC) Unspecified peripheral vascular disease Type 2 diabetes mellitus with retinopathy of both eyes, with long-term current use of insulin, macular edema presence unspecified, unspecified retinopathy severity (HCC)- Primary Mild major depression Major depressive disorder, single episode, mild Peripheral vascular disease, unspecified Persistent atrial fibrillation (HCC) Atrial fibrillation Morbid obesity (HCC) Morbid obesity 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) 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, sequela (HCC) Hypertensive heart disease with heart failure (HCC) Unspecified hypertensive heart disease with heart failure Malignant neoplasm of buccal sulcus (HCC) Cough, unspecified type PAD (peripheral artery disease) (HCC) Unspecified peripheral vascular disease 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, bilateral legs (HCC) Diarrhea, unspecified type- Primary Essential hypertension Unspecified essential hypertension Hyperlipidemia, unspecified hyperlipidemia type Persistent atrial fibrillation (HCC) Atrial fibrillation 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, bilateral legs (HCC) Persistent atrial fibrillation (HCC)- Primary Atrial fibrillation S/P CABG (coronary artery bypass graft) Postsurgical aortocoronary bypass status S/P aortic valve replacement Heart valve replaced by other means Persistent atrial fibrillation (HCC)- Primary Atrial fibrillation Essential hypertension Unspecified essential hypertension PAD (peripheral artery disease) ([facility]) Unspecified peripheral vascular disease S/P CABG (coronary artery bypass graft) Postsurgical aortocoronary bypass status S/P aortic valve replacement Heart valve replaced by other means Type 2 diabetes mellitus with other circulatory complication, with long-term current use of insulin (HCC)- Primary 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 heart disease with heart failure (HCC) Unspecified hypertensive heart disease with heart failure 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, single episode, mild Traumatic subdural hemorrhage with unknown loss of consciousness status, subsequent encounter Morbid obesity (HCC) Morbid obesity 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, sequela (HCC) 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, bilateral legs (HCC) Type 2 diabetes mellitus with retinopathy of both eyes, with long-term current use of insulin, macular edema presence unspecified, unspecified retinopathy severity (HCC) PAD (peripheral artery disease) ([facility]) Unspecified peripheral vascular disease Medicare annual wellness visit, subsequent Sensorineural hearing loss (SNHL) of both ears At high risk for falls PAD (peripheral artery disease) ([facility])- Primary Unspecified peripheral vascular disease Essential hypertension Unspecified essential hypertension Primary hypertension Unspecified essential hypertension Persistent atrial fibrillation (HCC) Atrial fibrillation S/P CABG (coronary artery bypass graft) Postsurgical aortocoronary bypass status S/P AVR Type 2 diabetes mellitus with retinopathy of both eyes, with long-term current use of insulin, macular edema presence unspecified, unspecified retinopathy severity (HCC)- Primary Hypercholesterolemia Pure hypercholesterolemia Primary hypertension Unspecified essential hypertension documented in this encounter [facility] note* Diagnosis Coronary artery disease involving [place] coronary artery of [place] heart without angina pectoris- Primary Essential hypertension Unspecified essential hypertension S/P AVR (aortic valve replacement) Heart valve replaced by other means HLD (hyperlipidemia) Other and unspecified hyperlipidemia Persistent atrial fibrillation (HCC) Atrial fibrillation S/P CABG (coronary artery bypass graft) Postsurgical aortocoronary bypass status S/P aortic valve replacement Heart valve replaced by other means Postoperative atrial fibrillation (HCC) 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 pectoris- Primary Essential hypertension, hypertension with unspecified goal Persistent atrial fibrillation (HCC) Atrial fibrillation S/P CABG (coronary artery bypass graft) Postsurgical aortocoronary bypass status S/P AVR (aortic valve replacement) Heart valve replaced by other means S/P CABG (coronary artery bypass graft) Postsurgical aortocoronary bypass status Chest pain, unspecified type- Primary Secondary hypertension Other secondary hypertension, unspecified Other secondary hypertension S/P CABG (coronary artery bypass graft) Postsurgical aortocoronary bypass status RBBB S/P aortic valve replacement Heart valve replaced by other means Hyperlipidemia, unspecified hyperlipidemia type Hypercholesterolemia Pure hypercholesterolemia S/P aortic valve replacement Heart valve replaced by other means S/P CABG (coronary artery bypass graft) Postsurgical aortocoronary bypass status S/P CABG (coronary artery bypass graft) Postsurgical aortocoronary bypass status S/P aortic valve replacement- Primary Heart valve replaced by other means S/P CABG (coronary artery bypass graft) Postsurgical aortocoronary bypass status S/P CABG (coronary artery bypass graft) Postsurgical aortocoronary bypass status Coronary 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, unspecified vessel or lesion type- Primary Chest pain, unspecified type Prominent abdominal aortic pulse S/P aortic valve replacement Heart valve replaced by other means Essential hypertension Unspecified essential hypertension S/P CABG (coronary artery bypass graft) Postsurgical aortocoronary bypass status Hyperlipidemia, unspecified hyperlipidemia type S/P CABG (coronary artery bypass graft) Postsurgical aortocoronary bypass status S/P CABG (coronary artery bypass graft) Postsurgical aortocoronary bypass status Encounter to establish care- Primary 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, with long-term current use of insulin, macular edema presence unspecified, unspecified retinopathy severity (HCC) Postoperative atrial fibrillation (HCC) Morbid obesity (HCC) Morbid obesity Essential hypertension Unspecified essential hypertension 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, sequela (HCC) Hypercholesterolemia Pure hypercholesterolemia S/P aortic valve replacement Heart valve replaced by other means Coronary 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, unspecified vessel or lesion type Skin mole Benign neoplasm of skin, site unspecified Type 2 diabetes mellitus with retinopathy of both eyes, with long-term current use of insulin, macular edema presence unspecified, unspecified retinopathy severity (HCC)- Primary Essential hypertension Unspecified essential hypertension Encounter for immunization Essential hypertension Unspecified essential hypertension Hyperlipidemia, unspecified hyperlipidemia type Persistent atrial fibrillation (HCC) Atrial fibrillation S/P CABG (coronary artery bypass graft) Postsurgical aortocoronary bypass status S/P aortic valve replacement Heart valve replaced by other means Persistent atrial fibrillation (HCC) Atrial fibrillation Anxiety and depression- Primary Balance disorder Encounter for immunization At low risk for fall- Primary Ventricular fibrillation (HCC) Ventricular fibrillation Primary hypertension Unspecified essential hypertension Mild major depression Major depressive disorder, single episode, mild Anxiety and depression Encounter for immunization Type 2 diabetes mellitus with retinopathy of both eyes, with long-term current use of insulin, macular edema presence unspecified, unspecified retinopathy severity (HCC)- Primary Postoperative atrial fibrillation (HCC) Mild major depression Major depressive disorder, single episode, 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) Ventricular fibrillation (HCC) Ventricular fibrillation Morbid obesity (HCC) Morbid obesity 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) 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, sequela (HCC) Peripheral vascular disease, unspecified Essential hypertension Unspecified essential hypertension Colon cancer screening Special screening for malignant neoplasms, colon Chest discomfort Other chest pain Hyperlipidemia, unspecified hyperlipidemia type Need for COVID-19 vaccine Coronary 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, unspecified vessel or lesion type- Primary 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, with long-term current use of insulin, macular edema presence unspecified, unspecified retinopathy severity (HCC) Intermittent claudication Unspecified peripheral vascular disease Persistent atrial fibrillation (HCC) Atrial fibrillation S/P CABG (coronary artery bypass graft) Postsurgical aortocoronary bypass status S/P aortic valve replacement Heart valve replaced by other means At low risk for fall- Primary Mild major depression Major depressive disorder, single episode, mild Persistent atrial fibrillation (HCC) Atrial fibrillation Medicare annual wellness visit, subsequent Need for COVID-19 vaccine Advanced directives, counseling/discussion Other specified counseling PAD (peripheral artery disease) (HCC) Unspecified peripheral vascular disease Type 2 diabetes mellitus with retinopathy of both eyes, with long-term current use of insulin, macular edema presence unspecified, unspecified retinopathy severity (HCC)- Primary Mild major depression Major depressive disorder, single episode, mild Peripheral vascular disease, unspecified Persistent atrial fibrillation (HCC) Atrial fibrillation Morbid obesity (HCC) Morbid obesity 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) 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, sequela (HCC) Hypertensive heart disease with heart failure (HCC) Unspecified hypertensive heart disease with heart failure Malignant neoplasm of buccal sulcus (HCC) Cough, unspecified type PAD (peripheral artery disease) (HCC) Unspecified peripheral vascular disease 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, bilateral legs (HCC) Diarrhea, unspecified type- Primary Essential hypertension Unspecified essential hypertension Hyperlipidemia, unspecified hyperlipidemia type Persistent atrial fibrillation (HCC) Atrial fibrillation 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, bilateral legs (HCC) Persistent atrial fibrillation (HCC)- Primary Atrial fibrillation S/P CABG (coronary artery bypass graft) Postsurgical aortocoronary bypass status S/P aortic valve replacement Heart valve replaced by other means Persistent atrial fibrillation (HCC)- Primary Atrial fibrillation Essential hypertension Unspecified essential hypertension PAD (peripheral artery disease) (HCC) Unspecified peripheral vascular disease S/P CABG (coronary artery bypass graft) Postsurgical aortocoronary bypass status S/P aortic valve replacement Heart valve replaced by other means Type 2 diabetes mellitus with other circulatory complication, with long-term current use of insulin (HCC)- Primary 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 heart disease with heart failure (HCC) Unspecified hypertensive heart disease with heart failure 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, single episode, mild Traumatic subdural hemorrhage with unknown loss of consciousness status, subsequent encounter Morbid obesity (HCC) Morbid obesity 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, sequela (HCC) 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, bilateral legs (HCC) Type 2 diabetes mellitus with retinopathy of both eyes, with long-term current use of insulin, macular edema presence unspecified, unspecified retinopathy severity (HCC) PAD (peripheral artery disease) (HCC) Unspecified peripheral vascular disease Medicare annual wellness visit, subsequent Sensorineural hearing loss (SNHL) of both ears At high risk for falls PAD (peripheral artery disease) (HCC)- Primary Unspecified peripheral vascular disease Essential hypertension Unspecified essential hypertension Primary hypertension Unspecified essential hypertension Persistent atrial fibrillation (HCC) Atrial fibrillation S/P CABG (coronary artery bypass graft) Postsurgical aortocoronary bypass status S/P AVR Type 2 diabetes mellitus with retinopathy of both eyes, with long-term current use of insulin, macular edema presence unspecified, unspecified retinopathy severity (HCC)- Primary Hypercholesterolemia Pure hypercholesterolemia Primary hypertension Unspecified essential hypertension [facility] Diagnosis Coronary artery disease involving [place] coronary artery of [place] heart without angina pectoris- Primary Essential hypertension Unspecified essential hypertension S/P AVR (aortic valve replacement) Heart valve replaced by other means HLD (hyperlipidemia) Other and unspecified hyperlipidemia Persistent atrial fibrillation (HCC) Atrial fibrillation S/P CABG (coronary artery bypass graft) Postsurgical aortocoronary bypass status S/P aortic valve replacement Heart valve replaced by other means Postoperative atrial fibrillation (HCC) 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 pectoris- Primary Essential hypertension, hypertension with unspecified goal Persistent atrial fibrillation (HCC) Atrial fibrillation S/P CABG (coronary artery bypass graft) Postsurgical aortocoronary bypass status S/P AVR (aortic valve replacement) Heart valve replaced by other means S/P CABG (coronary artery bypass graft) Postsurgical aortocoronary bypass status Chest pain, unspecified type- Primary Secondary hypertension Other secondary hypertension, unspecified Other secondary hypertension S/P CABG (coronary artery bypass graft) Postsurgical aortocoronary bypass status RBBB S/P aortic valve replacement Heart valve replaced by other means Hyperlipidemia, unspecified hyperlipidemia type Hypercholesterolemia Pure hypercholesterolemia S/P aortic valve replacement Heart valve replaced by other means S/P CABG (coronary artery bypass graft) Postsurgical aortocoronary bypass status S/P CABG (coronary artery bypass graft) Postsurgical aortocoronary bypass status S/P aortic valve replacement- Primary Heart valve replaced by other means S/P CABG (coronary artery bypass graft) Postsurgical aortocoronary bypass status S/P CABG (coronary artery bypass graft) Postsurgical aortocoronary bypass status Coronary 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, unspecified vessel or lesion type- Primary Chest pain, unspecified type Prominent abdominal aortic pulse S/P aortic valve replacement Heart valve replaced by other means Essential hypertension Unspecified essential hypertension S/P CABG (coronary artery bypass graft) Postsurgical aortocoronary bypass status Hyperlipidemia, unspecified hyperlipidemia type S/P CABG (coronary artery bypass graft) Postsurgical aortocoronary bypass status S/P CABG (coronary artery bypass graft) Postsurgical aortocoronary bypass status Encounter to establish care- Primary 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, with long-term current use of insulin, macular edema presence unspecified, unspecified retinopathy severity (HCC) Postoperative atrial fibrillation (HCC) Morbid obesity (HCC) Morbid obesity Essential hypertension Unspecified essential hypertension 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, sequela (HCC) Hypercholesterolemia Pure hypercholesterolemia S/P aortic valve replacement Heart valve replaced by other means Coronary 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, unspecified vessel or lesion type Skin mole Benign neoplasm of skin, site unspecified Type 2 diabetes mellitus with retinopathy of both eyes, with long-term current use of insulin, macular edema presence unspecified, unspecified retinopathy severity (HCC)- Primary Essential hypertension Unspecified essential hypertension Encounter for immunization Essential hypertension Unspecified essential hypertension Hyperlipidemia, unspecified hyperlipidemia type Persistent atrial fibrillation (HCC) Atrial fibrillation S/P CABG (coronary artery bypass graft) Postsurgical aortocoronary bypass status S/P aortic valve replacement Heart valve replaced by other means Persistent atrial fibrillation (HCC) Atrial fibrillation Anxiety and depression- Primary Balance disorder Encounter for immunization At low risk for fall- Primary Ventricular fibrillation (HCC) Ventricular fibrillation Primary hypertension Unspecified essential hypertension Mild major depression Major depressive disorder, single episode, mild Anxiety and depression Encounter for immunization Type 2 diabetes mellitus with retinopathy of both eyes, with long-term current use of insulin, macular edema presence unspecified, unspecified retinopathy severity (HCC)- Primary Postoperative atrial fibrillation (HCC) Mild major depression Major depressive disorder, single episode, 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) Ventricular fibrillation (HCC) Ventricular fibrillation Morbid obesity (HCC) Morbid obesity 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) 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, sequela (HCC) Peripheral vascular disease, unspecified Essential hypertension Unspecified essential hypertension Colon cancer screening Special screening for malignant neoplasms, colon Chest discomfort Other chest pain Hyperlipidemia, unspecified hyperlipidemia type Need for COVID-19 vaccine Coronary 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, unspecified vessel or lesion type- Primary 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, with long-term current use of insulin, macular edema presence unspecified, unspecified retinopathy severity (HCC) Intermittent claudication Unspecified peripheral vascular disease Persistent atrial fibrillation (HCC) Atrial fibrillation S/P CABG (coronary artery bypass graft) Postsurgical aortocoronary bypass status S/P aortic valve replacement Heart valve replaced by other means At low risk for fall- Primary Mild major depression Major depressive disorder, single episode, mild Persistent atrial fibrillation (HCC) Atrial fibrillation Medicare annual wellness visit, subsequent Need for COVID-19 vaccine Advanced directives, counseling/discussion Other specified counseling PAD (peripheral artery disease) (HCC) Unspecified peripheral vascular disease Type 2 diabetes mellitus with retinopathy of both eyes, with long-term current use of insulin, macular edema presence unspecified, unspecified retinopathy severity (HCC)- Primary Mild major depression Major depressive disorder, single episode, mild Peripheral vascular disease, unspecified Persistent atrial fibrillation (HCC) Atrial fibrillation Morbid obesity (HCC) Morbid obesity 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) 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, sequela (HCC) Hypertensive heart disease with heart failure (HCC) Unspecified hypertensive heart disease with heart failure Malignant neoplasm of buccal sulcus (HCC) Cough, unspecified type PAD (peripheral artery disease) (HCC) Unspecified peripheral vascular disease 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, bilateral legs (HCC) Diarrhea, unspecified type- Primary Essential hypertension Unspecified essential hypertension Hyperlipidemia, unspecified hyperlipidemia type Persistent atrial fibrillation (HCC) Atrial fibrillation 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, bilateral legs (HCC) Persistent atrial fibrillation (HCC)- Primary Atrial fibrillation S/P CABG (coronary artery bypass graft) Postsurgical aortocoronary bypass status S/P aortic valve replacement Heart valve replaced by other means Persistent atrial fibrillation (HCC)- Primary Atrial fibrillation Essential hypertension Unspecified essential hypertension PAD (peripheral artery disease) (HCC) Unspecified peripheral vascular disease S/P CABG (coronary artery bypass graft) Postsurgical aortocoronary bypass status S/P aortic valve replacement Heart valve replaced by other means Type 2 diabetes mellitus with other circulatory complication, with long-term current use of insulin ([facility])- Primary 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 heart disease with heart failure (HCC) Unspecified hypertensive heart disease with heart failure 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 ([facility]) Mild major depression Major depressive disorder, single episode, mild Traumatic subdural hemorrhage with unknown loss of consciousness status, subsequent encounter Morbid obesity (HCC) Morbid obesity 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, sequela (HCC) 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, bilateral legs ([facility]) Type 2 diabetes mellitus with retinopathy of both eyes, with long-term current use of insulin, macular edema presence unspecified, unspecified retinopathy severity ([facility]) PAD (peripheral artery disease) ([facility]) Unspecified peripheral vascular disease Medicare annual wellness visit, subsequent Sensorineural hearing loss (SNHL) of both ears At high risk for falls PAD (peripheral artery disease) ([facility])- Primary Unspecified peripheral vascular disease Essential hypertension Unspecified essential hypertension Primary hypertension Unspecified essential hypertension Persistent atrial fibrillation (HCC) Atrial fibrillation S/P CABG (coronary artery bypass graft) Postsurgical aortocoronary bypass status S/P AVR Ganglion cyst Unspecified ganglion [facility] [place] [facility] Diagnosis Coronary artery disease involving [place] coronary artery of [place] heart without angina pectoris- Primary Essential hypertension Unspecified essential hypertension S/P AVR (aortic valve replacement) Heart valve replaced by other means HLD (hyperlipidemia) Other and unspecified hyperlipidemia Persistent atrial fibrillation (HCC) Atrial fibrillation S/P CABG (coronary artery bypass graft) Postsurgical aortocoronary bypass status S/P aortic valve replacement Heart valve replaced by other means Postoperative atrial fibrillation (HCC) 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 pectoris- Primary Essential hypertension, hypertension with unspecified goal Persistent atrial fibrillation (HCC) Atrial fibrillation S/P CABG (coronary artery bypass graft) Postsurgical aortocoronary bypass status S/P AVR (aortic valve replacement) Heart valve replaced by other means S/P CABG (coronary artery bypass graft) Postsurgical aortocoronary bypass status Chest pain, unspecified type- Primary Secondary hypertension Other secondary hypertension, unspecified Other secondary hypertension S/P CABG (coronary artery bypass graft) Postsurgical aortocoronary bypass status RBBB S/P aortic valve replacement Heart valve replaced by other means Hyperlipidemia, unspecified hyperlipidemia type Hypercholesterolemia Pure hypercholesterolemia S/P aortic valve replacement Heart valve replaced by other means S/P CABG (coronary artery bypass graft) Postsurgical aortocoronary bypass status S/P CABG (coronary artery bypass graft) Postsurgical aortocoronary bypass status S/P aortic valve replacement- Primary Heart valve replaced by other means S/P CABG (coronary artery bypass graft) Postsurgical aortocoronary bypass status S/P CABG (coronary artery bypass graft) Postsurgical aortocoronary bypass status Coronary 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, unspecified vessel or lesion type- Primary Chest pain, unspecified type Prominent abdominal aortic pulse S/P aortic valve replacement Heart valve replaced by other means Essential hypertension Unspecified essential hypertension S/P CABG (coronary artery bypass graft) Postsurgical aortocoronary bypass status Hyperlipidemia, unspecified hyperlipidemia type S/P CABG (coronary artery bypass graft) Postsurgical aortocoronary bypass status S/P CABG (coronary artery bypass graft) Postsurgical aortocoronary bypass status Encounter to establish care- Primary 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, with long-term current use of insulin, macular edema presence unspecified, unspecified retinopathy severity (HCC) Postoperative atrial fibrillation (HCC) Morbid obesity (HCC) Morbid obesity Essential hypertension Unspecified essential hypertension 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, sequela (HCC) Hypercholesterolemia Pure hypercholesterolemia S/P aortic valve replacement Heart valve replaced by other means Coronary 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, unspecified vessel or lesion type Skin mole Benign neoplasm of skin, site unspecified Type 2 diabetes mellitus with retinopathy of both eyes, with long-term current use of insulin, macular edema presence unspecified, unspecified retinopathy severity (HCC)- Primary Essential hypertension Unspecified essential hypertension Encounter for immunization Essential hypertension Unspecified essential hypertension Hyperlipidemia, unspecified hyperlipidemia type Persistent atrial fibrillation (HCC) Atrial fibrillation S/P CABG (coronary artery bypass graft) Postsurgical aortocoronary bypass status S/P aortic valve replacement Heart valve replaced by other means Persistent atrial fibrillation (HCC) Atrial fibrillation Anxiety and depression- Primary Balance disorder Encounter for immunization At low risk for fall- Primary Ventricular fibrillation (HCC) Ventricular fibrillation Primary hypertension Unspecified essential hypertension Mild major depression Major depressive disorder, single episode, mild Anxiety and depression Encounter for immunization Type 2 diabetes mellitus with retinopathy of both eyes, with long-term current use of insulin, macular edema presence unspecified, unspecified retinopathy severity (HCC)- Primary Postoperative atrial fibrillation (HCC) Mild major depression Major depressive disorder, single episode, 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) Ventricular fibrillation (HCC) Ventricular fibrillation Morbid obesity (HCC) Morbid obesity 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) 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, sequela (HCC) Peripheral vascular disease, unspecified Essential hypertension Unspecified essential hypertension Colon cancer screening Special screening for malignant neoplasms, colon Chest discomfort Other chest pain Hyperlipidemia, unspecified hyperlipidemia type Need for COVID-19 vaccine Coronary 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, unspecified vessel or lesion type- Primary 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, with long-term current use of insulin, macular edema presence unspecified, unspecified retinopathy severity (HCC) Intermittent claudication Unspecified peripheral vascular disease Persistent atrial fibrillation (HCC) Atrial fibrillation S/P CABG (coronary artery bypass graft) Postsurgical aortocoronary bypass status S/P aortic valve replacement Heart valve replaced by other means At low risk for fall- Primary Mild major depression Major depressive disorder, single episode, mild Persistent atrial fibrillation (HCC) Atrial fibrillation Medicare annual wellness visit, subsequent Need for COVID-19 vaccine Advanced directives, counseling/discussion Other specified counseling PAD (peripheral artery disease) (HCC) Unspecified peripheral vascular disease Type 2 diabetes mellitus with retinopathy of both eyes, with long-term current use of insulin, macular edema presence unspecified, unspecified retinopathy severity (HCC)- Primary Mild major depression Major depressive disorder, single episode, mild Peripheral vascular disease, unspecified Persistent atrial fibrillation (HCC) Atrial fibrillation Morbid obesity (HCC) Morbid obesity 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) 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, sequela (HCC) Hypertensive heart disease with heart failure (HCC) Unspecified hypertensive heart disease with heart failure Malignant neoplasm of buccal sulcus (HCC) Cough, unspecified type PAD (peripheral artery disease) (HCC) Unspecified peripheral vascular disease 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, bilateral legs (HCC) Diarrhea, unspecified type- Primary Essential hypertension Unspecified essential hypertension Hyperlipidemia, unspecified hyperlipidemia type Persistent atrial fibrillation (HCC) Atrial fibrillation 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, bilateral legs (HCC) Persistent atrial fibrillation (HCC)- Primary Atrial fibrillation S/P CABG (coronary artery bypass graft) Postsurgical aortocoronary bypass status S/P aortic valve replacement Heart valve replaced by other means Persistent atrial fibrillation (HCC)- Primary Atrial fibrillation Essential hypertension Unspecified essential hypertension PAD (peripheral artery disease) (HCC) Unspecified peripheral vascular disease S/P CABG (coronary artery bypass graft) Postsurgical aortocoronary bypass status S/P aortic valve replacement Heart valve replaced by other means Type 2 diabetes mellitus with other circulatory complication, with long-term current use of insulin (HCC)- Primary 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 heart disease with heart failure (HCC) Unspecified hypertensive heart disease with heart failure 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, single episode, mild Traumatic subdural hemorrhage with unknown loss of consciousness status, subsequent encounter Morbid obesity (HCC) Morbid obesity 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, sequela (HCC) 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, bilateral legs (HCC) Type 2 diabetes mellitus with retinopathy of both eyes, with long-term current use of insulin, macular edema presence unspecified, unspecified retinopathy severity (HCC) PAD (peripheral artery disease) ([facility]) Unspecified peripheral vascular disease Medicare annual wellness visit, subsequent Sensorineural hearing loss (SNHL) of both ears At high risk for falls PAD (peripheral artery disease) ([facility])- Primary Unspecified peripheral vascular disease Essential hypertension Unspecified essential hypertension Primary hypertension Unspecified essential hypertension Persistent atrial fibrillation (HCC) Atrial fibrillation S/P CABG (coronary artery bypass graft) Postsurgical aortocoronary bypass status S/P AVR Onychomycosis- Primary Dermatophytosis of nail Peripheral vascular disease, unspecified [facility] [place] [facility] Diagnosis Coronary artery disease involving [place] coronary artery of [place] heart without angina pectoris- Primary Essential hypertension Unspecified essential hypertension S/P AVR (aortic valve replacement) Heart valve replaced by other means HLD (hyperlipidemia) Other and unspecified hyperlipidemia Persistent atrial fibrillation (HCC) Atrial fibrillation S/P CABG (coronary artery bypass graft) Postsurgical aortocoronary bypass status S/P aortic valve replacement Heart valve replaced by other means Postoperative atrial fibrillation (HCC) 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 pectoris- Primary Essential hypertension, hypertension with unspecified goal Persistent atrial fibrillation (HCC) Atrial fibrillation S/P CABG (coronary artery bypass graft) Postsurgical aortocoronary bypass status S/P AVR (aortic valve replacement) Heart valve replaced by other means S/P CABG (coronary artery bypass graft) Postsurgical aortocoronary bypass status Chest pain, unspecified type- Primary Secondary hypertension Other secondary hypertension, unspecified Other secondary hypertension S/P CABG (coronary artery bypass graft) Postsurgical aortocoronary bypass status RBBB S/P aortic valve replacement Heart valve replaced by other means Hyperlipidemia, unspecified hyperlipidemia type Hypercholesterolemia Pure hypercholesterolemia S/P aortic valve replacement Heart valve replaced by other means S/P CABG (coronary artery bypass graft) Postsurgical aortocoronary bypass status S/P CABG (coronary artery bypass graft) Postsurgical aortocoronary bypass status S/P aortic valve replacement- Primary Heart valve replaced by other means S/P CABG (coronary artery bypass graft) Postsurgical aortocoronary bypass status S/P CABG (coronary artery bypass graft) Postsurgical aortocoronary bypass status Coronary 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, unspecified vessel or lesion type- Primary Chest pain, unspecified type Prominent abdominal aortic pulse S/P aortic valve replacement Heart valve replaced by other means Essential hypertension Unspecified essential hypertension S/P CABG (coronary artery bypass graft) Postsurgical aortocoronary bypass status Hyperlipidemia, unspecified hyperlipidemia type S/P CABG (coronary artery bypass graft) Postsurgical aortocoronary bypass status S/P CABG (coronary artery bypass graft) Postsurgical aortocoronary bypass status Encounter to establish care- Primary 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, with long-term current use of insulin, macular edema presence unspecified, unspecified retinopathy severity (HCC) Postoperative atrial fibrillation (HCC) Morbid obesity (HCC) Morbid obesity Essential hypertension Unspecified essential hypertension 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, sequela (HCC) Hypercholesterolemia Pure hypercholesterolemia S/P aortic valve replacement Heart valve replaced by other means Coronary 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, unspecified vessel or lesion type Skin mole Benign neoplasm of skin, site unspecified Type 2 diabetes mellitus with retinopathy of both eyes, with long-term current use of insulin, macular edema presence unspecified, unspecified retinopathy severity (HCC)- Primary Essential hypertension Unspecified essential hypertension Encounter for immunization Essential hypertension Unspecified essential hypertension Hyperlipidemia, unspecified hyperlipidemia type Persistent atrial fibrillation (HCC) Atrial fibrillation S/P CABG (coronary artery bypass graft) Postsurgical aortocoronary bypass status S/P aortic valve replacement Heart valve replaced by other means Persistent atrial fibrillation (HCC) Atrial fibrillation Anxiety and depression- Primary Balance disorder Encounter for immunization At low risk for fall- Primary Ventricular fibrillation (HCC) Ventricular fibrillation Primary hypertension Unspecified essential hypertension Mild major depression Major depressive disorder, single episode, mild Anxiety and depression Encounter for immunization Type 2 diabetes mellitus with retinopathy of both eyes, with long-term current use of insulin, macular edema presence unspecified, unspecified retinopathy severity (HCC)- Primary Postoperative atrial fibrillation (HCC) Mild major depression Major depressive disorder, single episode, 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) Ventricular fibrillation (HCC) Ventricular fibrillation Morbid obesity (HCC) Morbid obesity 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) 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, sequela (HCC) Peripheral vascular disease, unspecified Essential hypertension Unspecified essential hypertension Colon cancer screening Special screening for malignant neoplasms, colon Chest discomfort Other chest pain Hyperlipidemia, unspecified hyperlipidemia type Need for COVID-19 vaccine Coronary 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, unspecified vessel or lesion type- Primary 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, with long-term current use of insulin, macular edema presence unspecified, unspecified retinopathy severity (HCC) Intermittent claudication Unspecified peripheral vascular disease Persistent atrial fibrillation (HCC) Atrial fibrillation S/P CABG (coronary artery bypass graft) Postsurgical aortocoronary bypass status S/P aortic valve replacement Heart valve replaced by other means At low risk for fall- Primary Mild major depression Major depressive disorder, single episode, mild Persistent atrial fibrillation (HCC) Atrial fibrillation Medicare annual wellness visit, subsequent Need for COVID-19 vaccine Advanced directives, counseling/discussion Other specified counseling PAD (peripheral artery disease) (HCC) Unspecified peripheral vascular disease Type 2 diabetes mellitus with retinopathy of both eyes, with long-term current use of insulin, macular edema presence unspecified, unspecified retinopathy severity (HCC)- Primary Mild major depression Major depressive disorder, single episode, mild Peripheral vascular disease, unspecified Persistent atrial fibrillation (HCC) Atrial fibrillation Morbid obesity (HCC) Morbid obesity 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) 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, sequela (HCC) Hypertensive heart disease with heart failure (HCC) Unspecified hypertensive heart disease with heart failure Malignant neoplasm of buccal sulcus (HCC) Cough, unspecified type PAD (peripheral artery disease) (HCC) Unspecified peripheral vascular disease 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, bilateral legs (HCC) Diarrhea, unspecified type- Primary Essential hypertension Unspecified essential hypertension Hyperlipidemia, unspecified hyperlipidemia type Persistent atrial fibrillation (HCC) Atrial fibrillation 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, bilateral legs (HCC) Persistent atrial fibrillation (HCC)- Primary Atrial fibrillation S/P CABG (coronary artery bypass graft) Postsurgical aortocoronary bypass status S/P aortic valve replacement Heart valve replaced by other means Persistent atrial fibrillation (HCC)- Primary Atrial fibrillation Essential hypertension Unspecified essential hypertension PAD (peripheral artery disease) (HCC) Unspecified peripheral vascular disease S/P CABG (coronary artery bypass graft) Postsurgical aortocoronary bypass status S/P aortic valve replacement Heart valve replaced by other means Type 2 diabetes mellitus with other circulatory complication, with long-term current use of insulin (HCC)- Primary 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 heart disease with heart failure (HCC) Unspecified hypertensive heart disease with heart failure 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, single episode, mild Traumatic subdural hemorrhage with unknown loss of consciousness status, subsequent encounter Morbid obesity (HCC) Morbid obesity 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, sequela (HCC) 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, bilateral legs (HCC) Type 2 diabetes mellitus with retinopathy of both eyes, with long-term current use of insulin, macular edema presence unspecified, unspecified retinopathy severity (HCC) PAD (peripheral artery disease) (HCC) Unspecified peripheral vascular disease Medicare annual wellness visit, subsequent Sensorineural hearing loss (SNHL) of both ears At high risk for falls PAD (peripheral artery disease) (HCC)- Primary Unspecified peripheral vascular disease Essential hypertension Unspecified essential hypertension Primary hypertension Unspecified essential hypertension Persistent atrial fibrillation (HCC) Atrial fibrillation S/P CABG (coronary artery bypass graft) Postsurgical aortocoronary bypass status S/P AVR Mild major depression Major depressive disorder, single episode, mild Essential hypertension Unspecified essential hypertension Hyperlipidemia, unspecified hyperlipidemia type [facility] Diagnosis Coronary artery disease involving [place] coronary artery of [place] heart without angina pectoris- Primary Essential hypertension Unspecified essential hypertension S/P AVR (aortic valve replacement) Heart valve replaced by other means HLD (hyperlipidemia) Other and unspecified hyperlipidemia Persistent atrial fibrillation (HCC) Atrial fibrillation S/P CABG (coronary artery bypass graft) Postsurgical aortocoronary bypass status S/P aortic valve replacement Heart valve replaced by other means Postoperative atrial fibrillation (HCC) 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 pectoris- Primary Essential hypertension, hypertension with unspecified goal Persistent atrial fibrillation (HCC) Atrial fibrillation S/P CABG (coronary artery bypass graft) Postsurgical aortocoronary bypass status S/P AVR (aortic valve replacement) Heart valve replaced by other means S/P CABG (coronary artery bypass graft) Postsurgical aortocoronary bypass status Chest pain, unspecified type- Primary Secondary hypertension Other secondary hypertension, unspecified Other secondary hypertension S/P CABG (coronary artery bypass graft) Postsurgical aortocoronary bypass status RBBB S/P aortic valve replacement Heart valve replaced by other means Hyperlipidemia, unspecified hyperlipidemia type Hypercholesterolemia Pure hypercholesterolemia S/P aortic valve replacement Heart valve replaced by other means S/P CABG (coronary artery bypass graft) Postsurgical aortocoronary bypass status S/P CABG (coronary artery bypass graft) Postsurgical aortocoronary bypass status S/P aortic valve replacement- Primary Heart valve replaced by other means S/P CABG (coronary artery bypass graft) Postsurgical aortocoronary bypass status S/P CABG (coronary artery bypass graft) Postsurgical aortocoronary bypass status Coronary 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, unspecified vessel or lesion type- Primary Chest pain, unspecified type Prominent abdominal aortic pulse S/P aortic valve replacement Heart valve replaced by other means Essential hypertension Unspecified essential hypertension S/P CABG (coronary artery bypass graft) Postsurgical aortocoronary bypass status Hyperlipidemia, unspecified hyperlipidemia type S/P CABG (coronary artery bypass graft) Postsurgical aortocoronary bypass status S/P CABG (coronary artery bypass graft) Postsurgical aortocoronary bypass status Encounter to establish care- Primary 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, with long-term current use of insulin, macular edema presence unspecified, unspecified retinopathy severity (HCC) Postoperative atrial fibrillation (HCC) Morbid obesity (HCC) Morbid obesity Essential hypertension Unspecified essential hypertension 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, sequela (HCC) Hypercholesterolemia Pure hypercholesterolemia S/P aortic valve replacement Heart valve replaced by other means Coronary 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, unspecified vessel or lesion type Skin mole Benign neoplasm of skin, site unspecified Type 2 diabetes mellitus with retinopathy of both eyes, with long-term current use of insulin, macular edema presence unspecified, unspecified retinopathy severity (HCC)- Primary Essential hypertension Unspecified essential hypertension Encounter for immunization Essential hypertension Unspecified essential hypertension Hyperlipidemia, unspecified hyperlipidemia type Persistent atrial fibrillation (HCC) Atrial fibrillation S/P CABG (coronary artery bypass graft) Postsurgical aortocoronary bypass status S/P aortic valve replacement Heart valve replaced by other means Persistent atrial fibrillation (HCC) Atrial fibrillation Anxiety and depression- Primary Balance disorder Encounter for immunization At low risk for fall- Primary Ventricular fibrillation (HCC) Ventricular fibrillation Primary hypertension Unspecified essential hypertension Mild major depression Major depressive disorder, single episode, mild Anxiety and depression Encounter for immunization Type 2 diabetes mellitus with retinopathy of both eyes, with long-term current use of insulin, macular edema presence unspecified, unspecified retinopathy severity (HCC)- Primary Postoperative atrial fibrillation (HCC) Mild major depression Major depressive disorder, single episode, 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) Ventricular fibrillation (HCC) Ventricular fibrillation Morbid obesity (HCC) Morbid obesity 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) 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, sequela (HCC) Peripheral vascular disease, unspecified Essential hypertension Unspecified essential hypertension Colon cancer screening Special screening for malignant neoplasms, colon Chest discomfort Other chest pain Hyperlipidemia, unspecified hyperlipidemia type Need for COVID-19 vaccine Coronary 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, unspecified vessel or lesion type- Primary 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, with long-term current use of insulin, macular edema presence unspecified, unspecified retinopathy severity (HCC) Intermittent claudication Unspecified peripheral vascular disease Persistent atrial fibrillation (HCC) Atrial fibrillation S/P CABG (coronary artery bypass graft) Postsurgical aortocoronary bypass status S/P aortic valve replacement Heart valve replaced by other means At low risk for fall- Primary Mild major depression Major depressive disorder, single episode, mild Persistent atrial fibrillation (HCC) Atrial fibrillation Medicare annual wellness visit, subsequent Need for COVID-19 vaccine Advanced directives, counseling/discussion Other specified counseling PAD (peripheral artery disease) (HCC) Unspecified peripheral vascular disease Type 2 diabetes mellitus with retinopathy of both eyes, with long-term current use of insulin, macular edema presence unspecified, unspecified retinopathy severity (HCC)- Primary Mild major depression Major depressive disorder, single episode, mild Peripheral vascular disease, unspecified Persistent atrial fibrillation (HCC) Atrial fibrillation Morbid obesity (HCC) Morbid obesity 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) 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, sequela (HCC) Hypertensive heart disease with heart failure (HCC) Unspecified hypertensive heart disease with heart failure Malignant neoplasm of buccal sulcus (HCC) Cough, unspecified type PAD (peripheral artery disease) ([facility]) Unspecified peripheral vascular disease 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, bilateral legs ([facility]) Diarrhea, unspecified type- Primary Essential hypertension Unspecified essential hypertension Hyperlipidemia, unspecified hyperlipidemia type Persistent atrial fibrillation (HCC) Atrial fibrillation 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, bilateral legs (HCC) Persistent atrial fibrillation ([facility])- Primary Atrial fibrillation S/P CABG (coronary artery bypass graft) Postsurgical aortocoronary bypass status S/P aortic valve replacement Heart valve replaced by other means Persistent atrial fibrillation ([facility])- Primary Atrial fibrillation Essential hypertension Unspecified essential hypertension PAD (peripheral artery disease) ([facility]) Unspecified peripheral vascular disease S/P CABG (coronary artery bypass graft) Postsurgical aortocoronary bypass status S/P aortic valve replacement Heart valve replaced by other means Type 2 diabetes mellitus with other circulatory complication, with long-term current use of insulin (HCC)- Primary 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 heart disease with heart failure (HCC) Unspecified hypertensive heart disease with heart failure 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, single episode, mild Traumatic subdural hemorrhage with unknown loss of consciousness status, subsequent encounter Morbid obesity (HCC) Morbid obesity 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, sequela (HCC) 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, bilateral legs (HCC) Type 2 diabetes mellitus with retinopathy of both eyes, with long-term current use of insulin, macular edema presence unspecified, unspecified retinopathy severity (HCC) PAD (peripheral artery disease) ([facility]) Unspecified peripheral vascular disease Medicare annual wellness visit, subsequent Sensorineural hearing loss (SNHL) of both ears At high risk for falls PAD (peripheral artery disease) (HCC)- Primary Unspecified peripheral vascular disease Essential hypertension Unspecified essential hypertension Primary hypertension Unspecified essential hypertension Persistent atrial fibrillation (HCC) Atrial fibrillation S/P CABG (coronary artery bypass graft) Postsurgical aortocoronary bypass status S/P AVR Left wrist pain- Primary Pain in joint, forearm documented in this encounter [facility] note* Diagnosis Coronary artery disease involving [place] coronary artery of [place] heart without angina pectoris- Primary Essential hypertension Unspecified essential hypertension S/P AVR (aortic valve replacement) Heart valve replaced by other means HLD (hyperlipidemia) Other and unspecified hyperlipidemia Persistent atrial fibrillation (HCC) Atrial fibrillation S/P CABG (coronary artery bypass graft) Postsurgical aortocoronary bypass status S/P aortic valve replacement Heart valve replaced by other means Postoperative atrial fibrillation (HCC) 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 pectoris- Primary Essential hypertension, hypertension with unspecified goal Persistent atrial fibrillation (HCC) Atrial fibrillation S/P CABG (coronary artery bypass graft) Postsurgical aortocoronary bypass status S/P AVR (aortic valve replacement) Heart valve replaced by other means S/P CABG (coronary artery bypass graft) Postsurgical aortocoronary bypass status Chest pain, unspecified type- Primary Secondary hypertension Other secondary hypertension, unspecified Other secondary hypertension S/P CABG (coronary artery bypass graft) Postsurgical aortocoronary bypass status RBBB S/P aortic valve replacement Heart valve replaced by other means Hyperlipidemia, unspecified hyperlipidemia type Hypercholesterolemia Pure hypercholesterolemia S/P aortic valve replacement Heart valve replaced by other means S/P CABG (coronary artery bypass graft) Postsurgical aortocoronary bypass status S/P CABG (coronary artery bypass graft) Postsurgical aortocoronary bypass status S/P aortic valve replacement- Primary Heart valve replaced by other means S/P CABG (coronary artery bypass graft) Postsurgical aortocoronary bypass status S/P CABG (coronary artery bypass graft) Postsurgical aortocoronary bypass status Coronary 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, unspecified vessel or lesion type- Primary Chest pain, unspecified type Prominent abdominal aortic pulse S/P aortic valve replacement Heart valve replaced by other means Essential hypertension Unspecified essential hypertension S/P CABG (coronary artery bypass graft) Postsurgical aortocoronary bypass status Hyperlipidemia, unspecified hyperlipidemia type S/P CABG (coronary artery bypass graft) Postsurgical aortocoronary bypass status S/P CABG (coronary artery bypass graft) Postsurgical aortocoronary bypass status Encounter to establish care- Primary 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, with long-term current use of insulin, macular edema presence unspecified, unspecified retinopathy severity (HCC) Postoperative atrial fibrillation (HCC) Morbid obesity (HCC) Morbid obesity Essential hypertension Unspecified essential hypertension 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, sequela (HCC) Hypercholesterolemia Pure hypercholesterolemia S/P aortic valve replacement Heart valve replaced by other means Coronary 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, unspecified vessel or lesion type Skin mole Benign neoplasm of skin, site unspecified Type 2 diabetes mellitus with retinopathy of both eyes, with long-term current use of insulin, macular edema presence unspecified, unspecified retinopathy severity (HCC)- Primary Essential hypertension Unspecified essential hypertension Encounter for immunization Essential hypertension Unspecified essential hypertension Hyperlipidemia, unspecified hyperlipidemia type Persistent atrial fibrillation (HCC) Atrial fibrillation S/P CABG (coronary artery bypass graft) Postsurgical aortocoronary bypass status S/P aortic valve replacement Heart valve replaced by other means Persistent atrial fibrillation (HCC) Atrial fibrillation Anxiety and depression- Primary Balance disorder Encounter for immunization At low risk for fall- Primary Ventricular fibrillation (HCC) Ventricular fibrillation Primary hypertension Unspecified essential hypertension Mild major depression Major depressive disorder, single episode, mild Anxiety and depression Encounter for immunization Type 2 diabetes mellitus with retinopathy of both eyes, with long-term current use of insulin, macular edema presence unspecified, unspecified retinopathy severity (HCC)- Primary Postoperative atrial fibrillation (HCC) Mild major depression Major depressive disorder, single episode, 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) Ventricular fibrillation (HCC) Ventricular fibrillation Morbid obesity (HCC) Morbid obesity 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) 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, sequela (HCC) Peripheral vascular disease, unspecified Essential hypertension Unspecified essential hypertension Colon cancer screening Special screening for malignant neoplasms, colon Chest discomfort Other chest pain Hyperlipidemia, unspecified hyperlipidemia type Need for COVID-19 vaccine Coronary 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, unspecified vessel or lesion type- Primary 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, with long-term current use of insulin, macular edema presence unspecified, unspecified retinopathy severity (HCC) Intermittent claudication Unspecified peripheral vascular disease Persistent atrial fibrillation (HCC) Atrial fibrillation S/P CABG (coronary artery bypass graft) Postsurgical aortocoronary bypass status S/P aortic valve replacement Heart valve replaced by other means At low risk for fall- Primary Mild major depression Major depressive disorder, single episode, mild Persistent atrial fibrillation (HCC) Atrial fibrillation Medicare annual wellness visit, subsequent Need for COVID-19 vaccine Advanced directives, counseling/discussion Other specified counseling PAD (peripheral artery disease) (HCC) Unspecified peripheral vascular disease Type 2 diabetes mellitus with retinopathy of both eyes, with long-term current use of insulin, macular edema presence unspecified, unspecified retinopathy severity (HCC)- Primary Mild major depression Major depressive disorder, single episode, mild Peripheral vascular disease, unspecified Persistent atrial fibrillation (HCC) Atrial fibrillation Morbid obesity (HCC) Morbid obesity 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) 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, sequela (HCC) Hypertensive heart disease with heart failure (HCC) Unspecified hypertensive heart disease with heart failure Malignant neoplasm of buccal sulcus (HCC) Cough, unspecified type PAD (peripheral artery disease) (HCC) Unspecified peripheral vascular disease 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, bilateral legs (HCC) Diarrhea, unspecified type- Primary Essential hypertension Unspecified essential hypertension Hyperlipidemia, unspecified hyperlipidemia type Persistent atrial fibrillation (HCC) Atrial fibrillation 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, bilateral legs (HCC) Persistent atrial fibrillation (HCC)- Primary Atrial fibrillation S/P CABG (coronary artery bypass graft) Postsurgical aortocoronary bypass status S/P aortic valve replacement Heart valve replaced by other means Persistent atrial fibrillation (HCC)- Primary Atrial fibrillation Essential hypertension Unspecified essential hypertension PAD (peripheral artery disease) (HCC) Unspecified peripheral vascular disease S/P CABG (coronary artery bypass graft) Postsurgical aortocoronary bypass status S/P aortic valve replacement Heart valve replaced by other means Type 2 diabetes mellitus with other circulatory complication, with long-term current use of insulin (HCC)- Primary 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 heart disease with heart failure (HCC) Unspecified hypertensive heart disease with heart failure 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, single episode, mild Traumatic subdural hemorrhage with unknown loss of consciousness status, subsequent encounter Morbid obesity (HCC) Morbid obesity 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, sequela (HCC) 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, bilateral legs (HCC) Type 2 diabetes mellitus with retinopathy of both eyes, with long-term current use of insulin, macular edema presence unspecified, unspecified retinopathy severity (HCC) PAD (peripheral artery disease) (HCC) Unspecified peripheral vascular disease Medicare annual wellness visit, subsequent Sensorineural hearing loss (SNHL) of both ears At high risk for falls PAD (peripheral artery disease) (HCC)- Primary Unspecified peripheral vascular disease Essential hypertension Unspecified essential hypertension Primary hypertension Unspecified essential hypertension Persistent atrial fibrillation (HCC) Atrial fibrillation S/P CABG (coronary artery bypass graft) Postsurgical aortocoronary bypass status S/P AVR Echocardiogram abnormal- Primary Nonspecific (abnormal) findings on radiological and other examination of other intrathoracic organs [facility] Diagnosis Coronary artery disease involving [place] coronary artery of [place] heart without angina pectoris- Primary Essential hypertension Unspecified essential hypertension S/P AVR (aortic valve replacement) Heart valve replaced by other means HLD (hyperlipidemia) Other and unspecified hyperlipidemia Persistent atrial fibrillation (HCC) Atrial fibrillation S/P CABG (coronary artery bypass graft) Postsurgical aortocoronary bypass status S/P aortic valve replacement Heart valve replaced by other means Postoperative atrial fibrillation (HCC) 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 pectoris- Primary Essential hypertension, hypertension with unspecified goal Persistent atrial fibrillation (HCC) Atrial fibrillation S/P CABG (coronary artery bypass graft) Postsurgical aortocoronary bypass status S/P AVR (aortic valve replacement) Heart valve replaced by other means S/P CABG (coronary artery bypass graft) Postsurgical aortocoronary bypass status Chest pain, unspecified type- Primary Secondary hypertension Other secondary hypertension, unspecified Other secondary hypertension S/P CABG (coronary artery bypass graft) Postsurgical aortocoronary bypass status RBBB S/P aortic valve replacement Heart valve replaced by other means Hyperlipidemia, unspecified hyperlipidemia type Hypercholesterolemia Pure hypercholesterolemia S/P aortic valve replacement Heart valve replaced by other means S/P CABG (coronary artery bypass graft) Postsurgical aortocoronary bypass status S/P CABG (coronary artery bypass graft) Postsurgical aortocoronary bypass status S/P aortic valve replacement- Primary Heart valve replaced by other means S/P CABG (coronary artery bypass graft) Postsurgical aortocoronary bypass status S/P CABG (coronary artery bypass graft) Postsurgical aortocoronary bypass status Coronary 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, unspecified vessel or lesion type- Primary Chest pain, unspecified type Prominent abdominal aortic pulse S/P aortic valve replacement Heart valve replaced by other means Essential hypertension Unspecified essential hypertension S/P CABG (coronary artery bypass graft) Postsurgical aortocoronary bypass status Hyperlipidemia, unspecified hyperlipidemia type S/P CABG (coronary artery bypass graft) Postsurgical aortocoronary bypass status S/P CABG (coronary artery bypass graft) Postsurgical aortocoronary bypass status Encounter to establish care- Primary 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, with long-term current use of insulin, macular edema presence unspecified, unspecified retinopathy severity (HCC) Postoperative atrial fibrillation (HCC) Morbid obesity (HCC) Morbid obesity Essential hypertension Unspecified essential hypertension 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, sequela (HCC) Hypercholesterolemia Pure hypercholesterolemia S/P aortic valve replacement Heart valve replaced by other means Coronary 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, unspecified vessel or lesion type Skin mole Benign neoplasm of skin, site unspecified Type 2 diabetes mellitus with retinopathy of both eyes, with long-term current use of insulin, macular edema presence unspecified, unspecified retinopathy severity (HCC)- Primary Essential hypertension Unspecified essential hypertension Encounter for immunization Essential hypertension Unspecified essential hypertension Hyperlipidemia, unspecified hyperlipidemia type Persistent atrial fibrillation (HCC) Atrial fibrillation S/P CABG (coronary artery bypass graft) Postsurgical aortocoronary bypass status S/P aortic valve replacement Heart valve replaced by other means Persistent atrial fibrillation (HCC) Atrial fibrillation Anxiety and depression- Primary Balance disorder Encounter for immunization At low risk for fall- Primary Ventricular fibrillation (HCC) Ventricular fibrillation Primary hypertension Unspecified essential hypertension Mild major depression Major depressive disorder, single episode, mild Anxiety and depression Encounter for immunization Type 2 diabetes mellitus with retinopathy of both eyes, with long-term current use of insulin, macular edema presence unspecified, unspecified retinopathy severity (HCC)- Primary Postoperative atrial fibrillation (HCC) Mild major depression Major depressive disorder, single episode, 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) Ventricular fibrillation (HCC) Ventricular fibrillation Morbid obesity (HCC) Morbid obesity 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) 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, sequela (HCC) Peripheral vascular disease, unspecified Essential hypertension Unspecified essential hypertension Colon cancer screening Special screening for malignant neoplasms, colon Chest discomfort Other chest pain Hyperlipidemia, unspecified hyperlipidemia type Need for COVID-19 vaccine Coronary 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, unspecified vessel or lesion type- Primary 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, with long-term current use of insulin, macular edema presence unspecified, unspecified retinopathy severity (HCC) Intermittent claudication Unspecified peripheral vascular disease Persistent atrial fibrillation (HCC) Atrial fibrillation S/P CABG (coronary artery bypass graft) Postsurgical aortocoronary bypass status S/P aortic valve replacement Heart valve replaced by other means At low risk for fall- Primary Mild major depression Major depressive disorder, single episode, mild Persistent atrial fibrillation (HCC) Atrial fibrillation Medicare annual wellness visit, subsequent Need for COVID-19 vaccine Advanced directives, counseling/discussion Other specified counseling PAD (peripheral artery disease) (HCC) Unspecified peripheral vascular disease Type 2 diabetes mellitus with retinopathy of both eyes, with long-term current use of insulin, macular edema presence unspecified, unspecified retinopathy severity (HCC)- Primary Mild major depression Major depressive disorder, single episode, mild Peripheral vascular disease, unspecified Persistent atrial fibrillation (HCC) Atrial fibrillation Morbid obesity (HCC) Morbid obesity 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) 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, sequela (HCC) Hypertensive heart disease with heart failure (HCC) Unspecified hypertensive heart disease with heart failure Malignant neoplasm of buccal sulcus (HCC) Cough, unspecified type PAD (peripheral artery disease) (HCC) Unspecified peripheral vascular disease 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, bilateral legs (HCC) Diarrhea, unspecified type- Primary Essential hypertension Unspecified essential hypertension Hyperlipidemia, unspecified hyperlipidemia type Persistent atrial fibrillation (HCC) Atrial fibrillation 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, bilateral legs (HCC) Persistent atrial fibrillation (HCC)- Primary Atrial fibrillation S/P CABG (coronary artery bypass graft) Postsurgical aortocoronary bypass status S/P aortic valve replacement Heart valve replaced by other means Persistent atrial fibrillation (HCC)- Primary Atrial fibrillation Essential hypertension Unspecified essential hypertension PAD (peripheral artery disease) (HCC) Unspecified peripheral vascular disease S/P CABG (coronary artery bypass graft) Postsurgical aortocoronary bypass status S/P aortic valve replacement Heart valve replaced by other means Type 2 diabetes mellitus with other circulatory complication, with long-term current use of insulin (HCC)- Primary 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 heart disease with heart failure (HCC) Unspecified hypertensive heart disease with heart failure 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 ([facility]) Mild major depression Major depressive disorder, single episode, mild Traumatic subdural hemorrhage with unknown loss of consciousness status, subsequent encounter Morbid obesity (HCC) Morbid obesity 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, sequela (HCC) 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, bilateral legs ([facility]) Type 2 diabetes mellitus with retinopathy of both eyes, with long-term current use of insulin, macular edema presence unspecified, unspecified retinopathy severity ([facility]) PAD (peripheral artery disease) ([facility]) Unspecified peripheral vascular disease Medicare annual wellness visit, subsequent Sensorineural hearing loss (SNHL) of both ears At high risk for falls PAD (peripheral artery disease) ([facility])- Primary Unspecified peripheral vascular disease Essential hypertension Unspecified essential hypertension Primary hypertension Unspecified essential hypertension Persistent atrial fibrillation (HCC) Atrial fibrillation S/P CABG (coronary artery bypass graft) Postsurgical aortocoronary bypass status S/P AVR Shock ([facility])- Primary Unspecified shock Septic shock ([facility]) Shortness of breath Elevated troponin Other abnormal blood chemistry DKA (diabetic ketoacidosis) ([facility]) Type II or unspecified type diabetes mellitus with ketoacidosis, not stated as uncontrolled Anemia of chronic disease Anemia of other chronic disease Shock ([facility]) Unspecified shock documented in this encounter [facility] note* Diagnosis Coronary artery disease involving [place] coronary artery of [place] heart without angina pectoris- Primary Essential hypertension Unspecified essential hypertension S/P AVR (aortic valve replacement) Heart valve replaced by other means HLD (hyperlipidemia) Other and unspecified hyperlipidemia Persistent atrial fibrillation (HCC) Atrial fibrillation S/P CABG (coronary artery bypass graft) Postsurgical aortocoronary bypass status S/P aortic valve replacement Heart valve replaced by other means Postoperative atrial fibrillation ([facility]) 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 pectoris- Primary Essential hypertension, hypertension with unspecified goal Persistent atrial fibrillation ([facility]) Atrial fibrillation S/P CABG (coronary artery bypass graft) Postsurgical aortocoronary bypass status S/P AVR (aortic valve replacement) Heart valve replaced by other means S/P CABG (coronary artery bypass graft) Postsurgical aortocoronary bypass status Chest pain, unspecified type- Primary Secondary hypertension Other secondary hypertension, unspecified Other secondary hypertension S/P CABG (coronary artery bypass graft) Postsurgical aortocoronary bypass status RBBB S/P aortic valve replacement Heart valve replaced by other means Hyperlipidemia, unspecified hyperlipidemia type Hypercholesterolemia Pure hypercholesterolemia S/P aortic valve replacement Heart valve replaced by other means S/P CABG (coronary artery bypass graft) Postsurgical aortocoronary bypass status S/P CABG (coronary artery bypass graft) Postsurgical aortocoronary bypass status S/P aortic valve replacement- Primary Heart valve replaced by other means S/P CABG (coronary artery bypass graft) Postsurgical aortocoronary bypass status S/P CABG (coronary artery bypass graft) Postsurgical aortocoronary bypass status Coronary 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, unspecified vessel or lesion type- Primary Chest pain, unspecified type Prominent abdominal aortic pulse S/P aortic valve replacement Heart valve replaced by other means Essential hypertension Unspecified essential hypertension S/P CABG (coronary artery bypass graft) Postsurgical aortocoronary bypass status Hyperlipidemia, unspecified hyperlipidemia type S/P CABG (coronary artery bypass graft) Postsurgical aortocoronary bypass status S/P CABG (coronary artery bypass graft) Postsurgical aortocoronary bypass status Encounter to establish care- Primary 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, with long-term current use of insulin, macular edema presence unspecified, unspecified retinopathy severity (HCC) Postoperative atrial fibrillation (HCC) Morbid obesity (HCC) Morbid obesity Essential hypertension Unspecified essential hypertension 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, sequela (HCC) Hypercholesterolemia Pure hypercholesterolemia S/P aortic valve replacement Heart valve replaced by other means Coronary 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, unspecified vessel or lesion type Skin mole Benign neoplasm of skin, site unspecified Type 2 diabetes mellitus with retinopathy of both eyes, with long-term current use of insulin, macular edema presence unspecified, unspecified retinopathy severity (HCC)- Primary Essential hypertension Unspecified essential hypertension Encounter for immunization Essential hypertension Unspecified essential hypertension Hyperlipidemia, unspecified hyperlipidemia type Persistent atrial fibrillation (HCC) Atrial fibrillation S/P CABG (coronary artery bypass graft) Postsurgical aortocoronary bypass status S/P aortic valve replacement Heart valve replaced by other means Persistent atrial fibrillation (HCC) Atrial fibrillation Anxiety and depression- Primary Balance disorder Encounter for immunization At low risk for fall- Primary Ventricular fibrillation (HCC) Ventricular fibrillation Primary hypertension Unspecified essential hypertension Mild major depression Major depressive disorder, single episode, mild Anxiety and depression Encounter for immunization Type 2 diabetes mellitus with retinopathy of both eyes, with long-term current use of insulin, macular edema presence unspecified, unspecified retinopathy severity (HCC)- Primary Postoperative atrial fibrillation (HCC) Mild major depression Major depressive disorder, single episode, 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) Ventricular fibrillation (HCC) Ventricular fibrillation Morbid obesity (HCC) Morbid obesity 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) 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, sequela (HCC) Peripheral vascular disease, unspecified Essential hypertension Unspecified essential hypertension Colon cancer screening Special screening for malignant neoplasms, colon Chest discomfort Other chest pain Hyperlipidemia, unspecified hyperlipidemia type Need for COVID-19 vaccine Coronary 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, unspecified vessel or lesion type- Primary 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, with long-term current use of insulin, macular edema presence unspecified, unspecified retinopathy severity (HCC) Intermittent claudication Unspecified peripheral vascular disease Persistent atrial fibrillation (HCC) Atrial fibrillation S/P CABG (coronary artery bypass graft) Postsurgical aortocoronary bypass status S/P aortic valve replacement Heart valve replaced by other means At low risk for fall- Primary Mild major depression Major depressive disorder, single episode, mild Persistent atrial fibrillation (HCC) Atrial fibrillation Medicare annual wellness visit, subsequent Need for COVID-19 vaccine Advanced directives, counseling/discussion Other specified counseling PAD (peripheral artery disease) (HCC) Unspecified peripheral vascular disease Type 2 diabetes mellitus with retinopathy of both eyes, with long-term current use of insulin, macular edema presence unspecified, unspecified retinopathy severity (HCC)- Primary Mild major depression Major depressive disorder, single episode, mild Peripheral vascular disease, unspecified Persistent atrial fibrillation (HCC) Atrial fibrillation Morbid obesity (HCC) Morbid obesity 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) 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, sequela (HCC) Hypertensive heart disease with heart failure (HCC) Unspecified hypertensive heart disease with heart failure Malignant neoplasm of buccal sulcus (HCC) Cough, unspecified type PAD (peripheral artery disease) (HCC) Unspecified peripheral vascular disease 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, bilateral legs (HCC) Diarrhea, unspecified type- Primary Essential hypertension Unspecified essential hypertension Hyperlipidemia, unspecified hyperlipidemia type Persistent atrial fibrillation (HCC) Atrial fibrillation 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, bilateral legs (HCC) Persistent atrial fibrillation (HCC)- Primary Atrial fibrillation S/P CABG (coronary artery bypass graft) Postsurgical aortocoronary bypass status S/P aortic valve replacement Heart valve replaced by other means Persistent atrial fibrillation (HCC)- Primary Atrial fibrillation Essential hypertension Unspecified essential hypertension PAD (peripheral artery disease) (HCC) Unspecified peripheral vascular disease S/P CABG (coronary artery bypass graft) Postsurgical aortocoronary bypass status S/P aortic valve replacement Heart valve replaced by other means Type 2 diabetes mellitus with other circulatory complication, with long-term current use of insulin (HCC)- Primary 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 heart disease with heart failure (HCC) Unspecified hypertensive heart disease with heart failure 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, single episode, mild Traumatic subdural hemorrhage with unknown loss of consciousness status, subsequent encounter Morbid obesity (HCC) Morbid obesity 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, sequela (HCC) 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, bilateral legs (HCC) Type 2 diabetes mellitus with retinopathy of both eyes, with long-term current use of insulin, macular edema presence unspecified, unspecified retinopathy severity (HCC) PAD (peripheral artery disease) (HCC) Unspecified peripheral vascular disease Medicare annual wellness visit, subsequent Sensorineural hearing loss (SNHL) of both ears At high risk for falls PAD (peripheral artery disease) (HCC)- Primary Unspecified peripheral vascular disease Essential hypertension Unspecified essential hypertension Primary hypertension Unspecified essential hypertension Persistent atrial fibrillation (HCC) Atrial fibrillation S/P CABG (coronary artery bypass graft) Postsurgical aortocoronary bypass status S/P AVR Sepsis, due to unspecified organism, unspecified whether acute organ dysfunction present (HCC)- Primary [facility]ative[facility]No reason for referral information availableWCity [facility] Work Phone: Assessments Diagnosis Hand fracture, left, closed, initial encounter - Primary Diagnosis S/P aortic valve replacement Heart valve replaced by other means Diagnosis S/P aortic valve replacement - Primary Heart valve replaced by other means S/P CABG (coronary artery by pass graft) Postsurgical aortocoronary bypass status Diagnosis Type 2 diabetes mellitus wit h retinopathy of both eyes, with long-term current use of insulin, macular edema presence unspecified, unspecified retinopathy severity (HCC) - Primary Essential hypertension Unspecified essential hypertension Hypercholesterolemia Pure hypercholesterolemia Diagnosis Type 2 diabetes mellitus wit h retinopathy, with long-term current use of insulin, macular edema presence unspecified, unspecified laterality, unspecified retinopathy severity (HCC) - Primary Hypercholesterolemia Pure hypercholesterolemia Essential hypertension Unspecified essential hypertension Diagnosis S/P CABG (coronary artery by pass graft) Postsurgical aortocoronary bypass status Diagnosis Closed hand fracture, left, with routine healing, subsequent encounter - Primary Diagnosis Type 2 diabetes mellitus with retinopathy of both eyes, with long-term current use of insulin, macular edema presence unspecified, unspecified retinopathy severity (HCC)- Primary Hypercholesterolemia Pure hypercholesterolemia Diagnosis Type 2 diabetes mellitus with retinopathy of both eyes, with long-term current use of insulin, macular edema presence unspecified, unspecified retinopathy severity (HCC)- Primary Coronary 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, unspecified vessel or lesion type Essential hypertension Unspecified essential hypertension Hypercholesterolemia Pure hypercholesterolemia Diagnosis Chest pain, unspecified type Diagnosis Prominent abdominal aortic pulse Diagnosis Chest pain, unspecified type S/P aortic valve replacement Heart valve replaced by other means Diagnosis Coronary 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, unspecified vessel or lesion type Chest pain, unspecified type Diagnosis Wrist pain, chronic, right- Primary 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 Surgery follow-up- Primary Diagnosis Hyperlipidemia, unspecified hyperlipidemia type S/P CABG (coronary artery bypass graft) Postsurgical aortocoronary bypass status Diagnosis DDD (degenerative disc disease), lumbar Degeneration of lumbar or lumbosacral intervertebral disc Diagnosis Type 2 diabetes mellitus with retinopathy of both eyes, with long-term current use of insulin, macular edema presence unspecified, unspecified retinopathy severity (HCC)- Primary Essential hypertension Unspecified essential hypertension Hypercholesterolemia Pure hypercholesterolemia Diagnosis Preoperative testing- Primary Unspecified pre-operative examination Type 2 diabetes mellitus with retinopathy of both eyes, with long-term current use of insulin, macular edema presence unspecified, unspecified retinopathy severity (HCC) Diagnosis Hyperlipidemia, unspecified hyperlipidemia type Diagnosis Type 2 diabetes mellitus with retinopathy of both eyes, with long-term current use of insulin, macular edema presence unspecified, unspecified retinopathy severity (HCC)- Primary Essential hypertension Unspecified essential hypertension Hypercholesterolemia Pure hypercholesterolemia Diagnosis Type 2 diabetes mellitus with retinopathy of both eyes, with long-term current use of insulin, macular edema presence unspecified, unspecified retinopathy severity (HCC) Essential hypertension Unspecified essential hypertension Hypercholesterolemia Pure hypercholesterolemia Diagnosis Coronary 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, unspecified vessel or lesion type- Primary Chest pain, unspecified type Prominent abdominal aortic pulse S/P aortic valve replacement Heart valve replaced by other means Essential hypertension Unspecified essential hypertension S/P CABG (coronary artery bypass graft) Postsurgical aortocoronary bypass status Summary Purpose Family History No Family History Records Found Relationship Condition Age at Onset Recorded Date/T cassidy mother Chronic obstructive pulmonary disease Unk nown father Diabetes mellitus Unknown grandmother Cerebrovascular accident (CVA) Unknown Advance Directives No Advanced Directives Records Found Date Activated Date Inactivated Comments 01/28/2025 10:30 PM 02/09/2025 5:50 PM Date Activated Date Inactivated Comments 12/25/2021 12:53 PM 12/25/2021 6:39 PM Date Activated Date Inactivated Comments 12/25/2021 9:51 AM 12/25/2021 12:22 PM Documents on File Type Date Recorded Patient Blade Groover Expl anation Advance Directives and Livin g Will 12/07/2018 9:36 AM Documents on File Type Date Recorded Patient Blade Groover Expl anation Advance Directives and Livin g Will 12/07/2018 9:36 AM Documents on File Type Date Recorded Patient Blade Groover Expl anation Advance Directives and Livin g Will 12/07/2018 9:36 AM Advance Directives and Livin g Will 12/08/2018 12:00 AM Documents on File Type Date Recorded Patient Blade Groover Expl anation Advance Directives and Livin g Will 12/15/2018 9:36 AM Advance Directives and Livin g Will 12/08/2018 12:00 AM Documents on File Type Date Recorded Patient Blade Groover Expl anation Advance Directives and Livin g Will 12/21/2018 9:36 AM Advance Directives and Livin g Will 12/26/2018 10:49 AM Documents on File Type Date Recorded Patient Blade Groover Expl anation Advance Directives and Livin g Will 12/21/2018 9:36 AM Advance Directives and Livin g Will 12/26/2018 10:49 AM Documents on File Type Date Recorded Patient Blade Groover Expl anation Advance Directives and Livin g Will 12/21/2018 9:36 AM Advance Directives and Livin g Will 12/08/2018 12:00 AM Documents on File Type Date Recorded Patient Blade Groover Expl anation Advance Directives and Living Will Documents on File Type Date Recorded Patient Blade Groover Expl anation Advance Directives and Livin g Will 12/26/2018 10:49 AM Advance Directives and Livin g Will 12/21/2018 9:36 AM Documents on File Type Date Recorded Patient Blade Groover Expl anation Advance Directives and Livin g Will 12/26/2018 10:49 AM Advance Directives and Livin g Will 12/21/2018 9:36 AM Documents on File Type Date Recorded Patient Blade Groover Expl anation Advance Directives and Living Will 01/13/2021 10:49 AM NO COPY IN [facility] Advance Directives and Living Will 12/21/2018 9:36 AM Documents on File Type Date Recorded Patient Blade Groover Expl anation Advance Directives and Living Will 01/13/2021 10:49 AM NO COPY IN [facility] Advance Directives and Living Will 12/21/2018 9:36 AM Documents on File Type Date Recorded Patient Blade Groover Expl anation Advance Directives and Living Will 02/02/2021 10:41 AM NO COPY IN [facility]ARIAN Advance Directives and Living Will 12/21/2018 9:36 AM Documents on File Type Date Recorded Patient Blade Groover Expl anation Advance Directives and Living Will 02/02/2021 10:41 AM NO COPY IN [facility]ARIAN Advance Directives and Living Will 12/21/2018 9:36 AM Documents on File Type Date Recorded Patient Blade Groover Expl anation Advance Directives and Living Will 08/02/2021 10:41 AM NO COPY IN [facility] Advance Directives and Living Will 12/21/2018 9:36 AM Latest Code Status on File Code Status Date Activated Date Inactivated Comments Full Code 12/25/2021 12:53 PM 12/25/2021 6:39 PM Full Code 12/25/2021 9:51 AM 12/25/2021 12:22 PM Latest Code Status on File Code Status Date Activated Date Inactivated Comments Full Code 12/25/2021 12:53 PM 12/25/2021 6:39 PM Full Code 12/25/2021 9:51 AM 12/25/2021 12:22 PM Latest Code Status on File Date Activated Date Inactivated Comments 12/25/2021 12:53 PM 12/25/2021 6:39 PM Full Code Date Activated Date Inactivated Comments 12/25/2021 9:51 AM 12/25/2021 12:22 PM Latest Code Status on File Code Status Date Activated Date Inactivated Comments Full Code 12/25/2021 12:53 PM 12/25/2021 6:39 PM Code Status History Code Status Date Activated Date Inactivated Comments Full Code 12/25/2021 9:51 AM 12/25/2021 12:22 PM Latest Code Status on File Code Status Date Activated Date Inactivated Comments Full Code 12/25/2021 12:53 PM 12/25/2021 6:39 PM Code Status History Code Status Date Activated Date Inactivated Comments Full Code 12/25/2021 9:51 AM 12/25/2021 12:22 PM Date Activated Date Inactivated Comments 12/25/2021 12:53 PM 12/25/2021 6:39 PM Date Activated Date Inactivated Comments 12/25/2021 9:51 AM 12/25/2021 12:22 PM Date Activated Date Inactivated Comments 12/25/2021 12:53 PM 12/25/2021 6:39 PM Date Activated Date Inactivated Comments 12/25/2021 9:51 AM 12/25/2021 12:22 PM Date Activated Date Inactivated Comments 01/28/2025 10:30 PM Date Activated Date Inactivated Comments 01/28/2025 10:30 PM Date Activated Date Inactivated Comments 12/25/2021 12:53 PM 12/25/2021 6:39 PM Date Activated Date Inactivated Comments 12/25/2021 9:51 AM 12/25/2021 12:22 PM Advance Directive Response Recorded Date/ Time Do you have a Healthcare Pow er of Channel Opener Outsoles? Yes February 11, 2025 4:52pm Name of Medical Power of Channel Opener Outsoles SW requesting from trust and estates attorney's office. Unsure who is the HCPOA. February 11, 2025 4:52pm Instructions * Patient Instructions - Radha Hughes CNP - 06/29/2018 10:56 AM EST Formatting of this note may be different from the original. Plan: 1. Rx changes: Adjust insulin doses as below Humalog insulin: 0 units at breakfast; 0 units at lunch; 0 units at supper Lantus insulin: 22 units at bedtime Increase blood glucose monitoring to 3-4 times daily Use as directed with Humalog insulin before meals and at bedtime. 151-200: 1 units fast acting insulin 201-250: 2 units fast acting insulin 251-300: 3 units fast acting insulin 301-350: 4 units fast acting insulin 351-400: 5 units fast acting insulin above 400: 6 units fast acting insulin 2. Education: Reviewed ABCs of diabetes management (respective goals in parentheses): A1C (7.0-8.0), blood pressure (<130/80), and cholesterol (LDL <100). 3. Compliance at present is estimated to be good. Efforts to improve compliance (if necessary) willbe directed at dietary modifications: portion control and regular blood sugar monitorin times daily. 4. Follow up: 4 months 5. Record blood sugar readings as instructed. Call if BG consistently <70 or >250. [phone] Check blood sugar 4 times daily. 6. Bring blood sugar meter to follow up appointment. Orders Placed This Encounter Procedures Hemoglobin A1c Comprehensive Metabolic Panel TSH T4, Free Lipid Panel CBC and Differential External Lab Microalbumin/Creatinine in this encounter* Patient Instructions* Dayna Johnson RN - 12/01/2018 7:39 AM EDT How to Contact your Care Team: Provider: Dr. Preston Healy MD [employer] Screen Layout Drafter: Dayna Johnson RN REFILLS: When in need for refills please call your care team or the office at [phone]. Please include medication name, pharmacy name, and specify 30-day or 90-day supply. Please check with your pharmacy within 24 hours of request for your refill. You must follow up as directed to continue current refills. Thank you! NUCLEAR MEDICINE CARDIAC STRESS TEST THIS IS A 3-4 HOUR TEST Instructions: Appointment Time: , ____/____/____ at ____:____ Prep: DO NOT Take your metoprolol prior to stress test. Please bring your metoprolol dose with you. NO CAFFEINE FOR 24 HOURS prior to your test. This includes drinks labeled decaffeinated. Nothing to eat 4 hours prior to your test. A small snack will be provided (crackers, granola bar, juice), or you may bring your own snack for after your stress test. You may drink fluids leading up to your test as long as they are caffeine-free. Decaffeinated drinks still contain some caffeine, please do not drink anything containing caffeine for 24 hours. NO SMOKING the day of your test. Wear comfortable shoes and clothing for exercising. No metal buttons or snaps please. Procedure: Check-in/Registration. Please bring photo ID, insurance cards, and any physician orders. Test explained in detail and IV started. Stress test performed, nuclear medicine will be injected through your IV during the stress test. Stress test recovery period. Heart scan performed. The doctor will review the pictures of your heart and decide if more pictures are needed before youleave. If more are needed you will get another injection of nuclear medicine and this will take an additional hour. The total time for this test is 3-4 hours. There are medications that interfere with this test. You may be instructed to hold medications. If so that will be listed here: If you have any further questions please contact your care team or [phone]. documented in this encounter History of Present Illness * Radha Hughes, EXCELLENCE MANAGER - 06/29/2018 10:49 AM EST Formatting of this note may be different from the original. Patient ID: Andrew Arnold is a 73 y.o. male Subjective: Andrew Arnold presents for follow-up of Type 2 diabetes Patient has had diabetes for 16 years. Diagnosed in 2000. He was seen during recent hospitalizationafter CABG. BG improved with change to QID regimen. Currently taking: Humalog insulin: 5 units at breakfast; 5 units at lunch; 5 units at supper Lantus insulin: 22 units at bedtime Current Hemoglobin A1C= 6.3% on 06/20/18 Weight trend: stable Current diet: diabetic Current exercise: walking Current monitoring regimen: home blood tests - 4 times daily Home blood sugar records: 58-189 Any episodes of hypoglycemia? yes - occas Is patient on PATRICIA inhibitor or angiotensin II receptor julia? no Review of Systems: Review of Systems Constitutional: Negative for appetite change, fatigue and unexpected weight change. Eyes: Negative for visual disturbance. Respiratory: Negative for cough, chest tightness, shortness of breath and wheezing. Cardiovascular: Negative for chest pain, palpitations and leg swelling. Gastrointestinal: Negative for abdominal pain, constipation, diarrhea, nausea and vomiting. Endocrine: Negative for polydipsia, polyphagia and polyuria. Genitourinary: Negative for dysuria and frequency. Musculoskeletal: Negative for arthralgias, gait problem and myalgias. Neurological: Negative for weakness, numbness and headaches. The following portions of the patient's history were reviewed and updated as appropriate: allergies, current medications, past family history, past medical history, past social history, past surgicalhistory and problem list. Objective: Physical Exam: BP 134/77 Pulse 64 Ht 5' 7 Wt 93.6 kg (206 lb 4.8 oz) BMI 32.31 kg/m Wt Readings from Last 3 Encounters: 06/29/18 93.6 kg (206 lb 4.8 oz) 03/31/18 101.2 kg (223 lb) 03/14/18 103.9 kg (229 lb) Physical Exam General: alert, appears stated age and cooperative Eyes: conjunctivae/corneas clear. PERRL, EOM's intact. Neck: no adenopathy, supple, symmetrical, trachea midline. Thyroid: No thyromegaly appreciated Lung: clear to auscultation bilaterally Heart: regular rate and rhythm, S1, S2 normal, no murmur, click, rub or gallop Extremities: extremities normal, atraumatic,+edema right lower leg, eschhar along incision, erythema Feet: Dry skin, Bilateral Feet: DP reduced bilateral and onychomycosis. Monofilament exam Normal , bilateral lower extremities. Neuro: normal without focal findings, mental status, speech normal, alert and oriented x3 and [facility] Lab Review 06/20/18 *labs reviewed 06/29/18 Hgb A1c: 6.3% Creat: 0.9; eGFR: >60 AST: 25; ALT: 17 K: 4.3 03/07/18 HgbA1C 7.9% TSH 2.18 Free T4 0.92 Lipid Panel Total Cholesterol 102 Triglycerides 66 HDL 45 LDL 44 Microal/creat ratio - Serum Creatinine 0.8 Hepatic Enzymes AST 23 ALT 14 Last CBC : Hgb 14.2/ Hct- 42.4/ Plt 194k 11/01/17 Hgb A1c: 10.4% Creat: 0.8; eGFR: >60 AST: 24; ALT: 18 K: 4.5 FreeT4: 0.84 Microalbumin/creatinine Ratio: 25 02/04/17 Hemoglobin A1c 9.8% Creatinine 1.0, potassium 4.6, estimated GFR greater than 60 AST 25, ALT 21 Total cholesterol 122, triglycerides 61, HDL 44, LDL 66 WBC 5.5, hemoglobin 14.4, hematocrit 42.8, platelet count 171,000 Date: 10/01/16 Hgb A1c: 9.4% Creat: 1.0 K: 4.6 Tchol: 125; Tri ; HDL: 45 ; LDL: 68 TSH: 1.92 Microalbumin/creatinine Ratio: 5 12/20/15 Hgb A1c: 6.7% CBC: Hgb: 13.2; Hct: 39.1; Plt: 165 Iron: 54 TSH: 3.92 ; FreeT4: 0.93 Microalbumin/creatinine Ratio: 18 09/05/15 Hgb A1c:10.4 Creat: 1.23 AST:; ALT: K:3.6 CBC: Tchol: ; Trig: HDL:; LDL: TSH: ; FreeT4: Microalbumin/creatinine Ratio: Assessment: Dx: SNOMED CT(R) 1. Type 2 diabetes mellitus with retinopathy of both eyes, with long-term current use of insulin, macular edema presence unspecified, unspecified retinopathy severity (HCC) TYPE 2 DIABETES MELLITUS pen needle, diabetic 31 gauge x 09/23 Ndle Hemoglobin A1c Comprehensive Metabolic Panel TSH T4, Free Lipid Panel CBC and Differential External Lab Microalbumin/Creatinine 2. Hypercholesterolemia HYPERCHOLESTEROLEMIA Type 2 diabetes, under poor control Andrew Arnold presents for follow-up of Type 2 diabetes Patient is currently managed with: QID insulin. He is currenlty taking 5 units of humalog with meals and 22 lantus at HS. He has been eating [employer]. Has lost approximately 43 lbs. Having increased frequency of hypoglycemia. Plan: Stop Humalog May need 3 units with larger (non [employer] meals). Low dose SSI. Continue Lantus 22 units at at bedtime. Check blood glucoses more frequently and report blood sugars to office for adjustment of insulin doses. 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 Exam within last 12 months: yesDate: 07/27. Needs cataract surgery. Nephropathy: Negative Creat: 0.9; eGFR: >60 06/20/18 on lisinopril Mialb/creat ratio: 5 10/01/16 Peripheral Neuropathy: Negative Denies symptoms associated with neuropathy (numbness and/or tingling) Autonomic Neuropathy: Negative Patient aware of lows. Hyperlipidemia: Positive Currently taking: simvistatin (Zocor). LFT's WNL 02/04/17 AST 25, ALT 21 Cholesterol well controlled as above. Hypertension: Positive. Currently taking: bumetanide (Bumex) 0.5 mg QOD, lisinopril 5 mg daily and Toprol-XL 25 mg daily. 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 Denies Chest pain or SOB at this time. Follows routinely with:[facility]: Positive edema right leg Feet: Negative ; no active lesions at this time. Last foot exam: 06/29/18 Thyroid: Negative 03/07/18: TSH 2.18; Free T4 0.92 Other: from colon cancer March 2017. Plan: 1. Rx changes: Adjust insulin doses as below Humalog insulin: 0 units at breakfast; 0 units at lunch; 0 units at supper Lantus insulin: 22 units at bedtime Increase blood glucose monitoring to 3-4 times daily Use as directed with Humalog insulin before meals and at bedtime. 151-200: 1 units fast acting insulin 201-250: 2 units fast acting insulin 251-300: 3 units fast acting insulin 301-350: 4 units fast acting insulin 351-400: 5 units fast acting insulin above 400: 6 units fast acting insulin 2. Education: Reviewed ABCs of diabetes management (respective goals in parentheses): A1C (7.0-8.0), blood pressure (<130/80), and cholesterol (LDL <100). 3. Compliance at present is estimated to be good. Efforts to improve compliance (if necessary) willbe directed at dietary modifications: portion control and regular blood sugar monitorin times daily. 4. Follow up: 4 months 5. Record blood sugar readings as instructed. Call if BG consistently <70 or >250. [phone] Check blood sugar 4 times daily. 6. Bring blood sugar meter to follow up appointment. Orders Placed This Encounter Procedures Hemoglobin A1c Comprehensive Metabolic Panel TSH T4, Free Lipid Panel CBC and Differential External Lab Microalbumin/Creatinine in this encounter* Girish Gramajo PA-C - 10/30/2018 11:37 AM EDT Patient ID: Andrew Arnold is a 73 y.o. male Subjective: Andrew Arnold presents for follow-up of Type 2 diabetes Patient has had diabetes for 16 years. Diagnosed in 2000. He was seen during recent hospitalizationafter CABG. BG improved with change to QID regimen. Currently taking: Lantus insulin: 22 units at bedtime Sliding scale: Use as directed with Humalog insulin before meals and at bedtime. 151-200: 1 units fast acting insulin 201-250: 2 units fast acting insulin 251-300: 3 units fast acting insulin 301-350: 4 units fast acting insulin 351-400: 5 units fast acting insulin above 400: 6 units fast acting insulin Current Hemoglobin A1C= 9.7% on 10/23/2018, increased from 6.3% on 06/20/18 Weight trend: stable Current diet: diabetic -was on [employer] and lost 42 pounds, no longer on this diet. Current exercise: walking Current monitoring regimen: home blood tests - 4 times daily Home blood sugar records: None to review Any episodes of hypoglycemia? States he has had 3 episodes since last visit 4 months ago Is patient on PATRICIA inhibitor or angiotensin II receptor julia? yes lisinopril Review of Systems: Review of Systems Constitutional: Negative for appetite change, fatigue and unexpected weight change. HENT: Negative for mouth sores. Eyes: Negative for visual disturbance. Respiratory: Negative for cough, chest tightness, shortness of breath and wheezing. Cardiovascular: Negative for chest pain, palpitations and leg swelling. Gastrointestinal: Positive for abdominal pain (epigastric related to GERD). Negative for constipation, diarrhea, nausea and vomiting. Endocrine: Negative for polydipsia, polyphagia and polyuria. Genitourinary: Negative for dysuria and frequency. Musculoskeletal: Negative for arthralgias, gait problem and myalgias. Neurological: Negative for weakness, numbness and headaches. The following portions of the patient's history were reviewed and updated as appropriate: allergies, current medications, past family history, past medical history, past social history, past surgicalhistory and problem list. Objective: Physical Exam: BP (!) 150/79 Pulse 66 Ht 5' 7 Wt 91.9 kg (202 lb 11.2 oz) BMI 31.75 kg/m Wt Readings from Last 3 Encounters: 10/30/18 91.9 kg (202 lb 11.2 oz) 06/29/18 93.6 kg (206 lb 4.8 oz) 03/31/18 101.2 kg (223 lb) Physical Exam General: alert, appears stated age and cooperative Eyes: conjunctivae/corneas clear. PERRL, EOM's intact. Neck: no adenopathy, supple, symmetrical, trachea midline. Thyroid: No thyromegaly appreciated Lung: clear to auscultation bilaterally Heart: regular rate and rhythm, S1, S2 normal, no murmur, click, rub or gallop Extremities: extremities normal, atraumatic,+edema right lower leg, eschhar along incision, erythema Feet: Dry skin, Bilateral Feet: DP reduced bilateral and onychomycosis. Monofilament exam Normal , bilateral lower extremities. Neuro: normal without focal findings, mental status, speech normal, alert and oriented x3 and [facility] Lab Review 10/23/2018 Hemoglobin A1c 9.7% Creatinine 1.00, EGFR >60, K4.2 AST 22, ALT 31 Microalbumin/creatinine ratio: 12 TSH 2.03, free T4 0.87 T cholesterol 118, TG 49, HDL 51, LDL 57 CBC: H/H 14.3/42.6, WBC 5.2, platelets 180,000 06/20/18 *labs reviewed 10/30/18 Hgb A1c: 6.3% Creat: 0.9; eGFR: >60 AST: 25; ALT: 17 K: 4.3 03/07/18 HgbA1C 7.9% TSH 2.18 Free T4 0.92 Lipid Panel Total Cholesterol 102 Triglycerides 66 HDL 45 LDL 44 Microal/creat ratio - Serum Creatinine 0.8 Hepatic Enzymes AST 23 ALT 14 Last CBC : Hgb 14.2/ Hct- 42.4/ Plt 194k 11/01/17 Hgb A1c: 10.4% Creat: 0.8; eGFR: >60 AST: 24; ALT: 18 K: 4.5 FreeT4: 0.84 Microalbumin/creatinine Ratio: 25 02/04/17 Hemoglobin A1c 9.8% Creatinine 1.0, potassium 4.6, estimated GFR greater than 60 AST 25, ALT 21 Total cholesterol 122, triglycerides 61, HDL 44, LDL 66 WBC 5.5, hemoglobin 14.4, hematocrit 42.8, platelet count 171,000 Date: 10/01/16 Hgb A1c: 9.4% Creat: 1.0 K: 4.6 Tchol: 125; Tri ; HDL: 45 ; LDL: 68 TSH: 1.92 Microalbumin/creatinine Ratio: 5 12/20/15 Hgb A1c: 6.7% CBC: Hgb: 13.2; Hct: 39.1; Plt: 165 Iron: 54 TSH: 3.92 ; FreeT4: 0.93 Microalbumin/creatinine Ratio: 18 09/05/15 Hgb A1c:10.4 Creat: 1.23 AST:; ALT: K:3.6 CBC: Tchol: ; Trig: HDL:; LDL: TSH: ; FreeT4: Microalbumin/creatinine Ratio: Assessment: Dx: SNOMED CT(R) 1. Type 2 diabetes mellitus with retinopathy of both eyes, with long-term current use of insulin, macular edema presence unspecified, unspecified retinopathy severity (HCC) TYPE 2 DIABETES MELLITUS Comprehensive Metabolic Panel Hemoglobin A1c 2. Coronary 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, unspecified vessel or lesion type CORONARY ARTERIOSCLEROSIS 3. Essential hypertension ESSENTIAL HYPERTENSION 4. Hypercholesterolemia HYPERCHOLESTEROLEMIA Type 2 diabetes, under poor control Andrew Arnold presents for follow-up of Type 2 diabetes Patient is currently managed with: QID insulin. He is currenlty taking sensitive SSI Humalog with meals and 22 lantus at HS. He has since stopped his [employer] diet, and states he has increase his caloric intake. Has lost approximately 43 lbs. patient spent the winter in [place] and states he was not as compliant with mealtime insulin orchecking his BG while away. 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 Exam within last 12 months: yesDate: 07/28. Needs cataract surgery. Nephropathy: Negative Creat: 1.00; eGFR: >60 10/23/2018 on lisinopril Mialb/creat ratio: 06/24/2019 Peripheral Neuropathy: Negative Denies symptoms associated with neuropathy (numbness and/or tingling) Autonomic Neuropathy: Negative Patient aware of lows. Hyperlipidemia: Positive Currently taking: simvistatin (Zocor). LFT's WNL 10/23/2018 AST 22, ALT 31 Cholesterol well controlled as above. Hypertension: Positive. Currently taking: bumetanide (Bumex) 0.5 mg QOD, lisinopril 5 mg daily and Toprol-XL 25 mg daily. 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 Denies Chest pain or SOB at this time. Follows routinely with:[facility]: Positive edema right leg Feet: Negative ; no active lesions at this time. Last foot exam: 10/30/18 Thyroid: Negative 10/23/2018: TSH 2.03, free T4 0.7 Other: from colon cancer March 2017. Plan: 1. Rx changes: Adjust insulin doses as below Humalog insulin: 2 units at breakfast; 2 units at lunch; 2 units at supper Lantus insulin: 22 units at bedtime Increase blood glucose monitoring to 3-4 times daily Use as directed with Humalog insulin before meals and at bedtime. 151-200: 1 units fast acting insulin 201-250: 2 units fast acting insulin 251-300: 3 units fast acting insulin 301-350: 4 units fast acting insulin 351-400: 5 units fast acting insulin above 400: 6 units fast acting insulin Spoke to patient about importance of mealtime insulin and explained how skipping mealtime insulin causes spiking of blood sugars explaining his markedly increased A1c compared to last visit. Patient states he was able to begin using mealtime Humalog for every meal and restarted checking his BG 3 4 times per day. Patient is interested in a StockUpyle johnny CGM. I did inform him if he is able to show proof of 4 times daily SMBG we can submit the proper orders for a CGM. 2. Education: Reviewed ABCs of diabetes management (respective goals in parentheses): A1C (7.0-8.0), blood pressure (<130/80), and cholesterol (LDL <100). 3. Compliance at present is estimated to be good. Efforts to improve compliance (if necessary) willbe directed at dietary modifications: portion control and regular blood sugar monitorin times daily. 4. Follow up: 4 months 5. Record blood sugar readings as instructed. Call if BG consistently <70 or >250. [phone] Check blood sugar 4 times daily. 6. Bring blood sugar meter to follow up appointment. Orders Placed This Encounter Procedures Comprehensive Metabolic Panel Hemoglobin A1c Electronically signed by: Girish Gramajo PA-C, [facility] 10/30/18 1:43 PM documented in this encounter* Jenaro Oquendo MD - 12/15/2018 10:15 AM EDT Subjective: Patient ID: Andrew Arnold is a 73 y.o. male. HPI: Patient is a 73-year-old male with right hand and thumb pain he was diagnosed in [place] with de Quervain's tenosynovitis. He had a shot and a brace with minimal relief for a long. He is interested in a more permanent solution. Review of Systems: Review of Systems Constitutional: Negative for activity change, appetite change, chills, fatigue and fever. HENT: Negative for congestion and trouble swallowing. Respiratory: Negative for chest tightness and shortness of breath. Cardiovascular: Negative for chest pain and palpitations. Gastrointestinal: Negative for constipation and diarrhea. Genitourinary: Negative for difficulty urinating and hematuria. Musculoskeletal: Negative for arthralgias, back pain, gait problem, joint swelling, myalgias, neck pain and neck stiffness. Neurological: Negative for light-headedness and headaches. Hematological: Negative for adenopathy. Does not bruise/bleed easily. Patient Active Problem List Diagnosis SNOMED CT(R) CAD (coronary artery disease) CORONARY ARTERIOSCLEROSIS Hypertension HYPERTENSIVE DISORDER S/P CABG (coronary artery bypass graft) HISTORY OF CORONARY ARTERY BYPASS GRAFTING S/P aortic valve replacement HISTORY OF AORTIC VALVE REPLACEMENT Postoperative atrial fibrillation (HCC) ATRIAL FIBRILLATION Fractured sternal wires (HCC) COMPLICATION AFTER WIRING OF STERNUM Diabetes mellitus, type 2 (HCC) TYPE 2 DIABETES MELLITUS Hypercholesterolemia HYPERCHOLESTEROLEMIA Delayed wound healing IMPAIRED WOUND HEALING Iron deficiency anemia IRON DEFICIENCY ANEMIA RBBB RIGHT BUNDLE BRANCH BLOCK Chest pain CHEST PAIN Prominent abdominal aortic pulse AORTIC PULSATION IN ABDOMEN Wrist pain, chronic, right PAIN IN WRIST De Quervain's disease (radial styloid tenosynovitis) RADIAL STYLOID TENOSYNOVITIS Objective: Physical Exam The patient is a 73-year-old male with deQuervain's tenosynovitis of his right thumb. I reviewed medications, allergies, and history. I reviewed his previous record and x-rays. I reviewed his OARRS and NARxCHECK report. PHYSICAL EXAMINATION General: He is well-developed, well-nourished, in no acute distress, alert and oriented x3. Cranialnerves 2 through 12 intact. Gait: Normal. Psychiatric: Patient's mood, affect, and behavior are appropriate for age, diagnosis, and office visit. Head: Normocephalic. Neck: Supple with good range of motion. Eyes: Extraocular exam within normal limits. Skin: Warm, clear, and dry without trophic changes noted. Vascular: Pulses 2+ and symmetrical in both upper extremities. Neurologic: Patient has normal sensation to light touch and pressure in both upper extremities. Extremities: Patient has a positive Jeffrey test. He has some mild swelling over the first dorsal compartment. He is tender over the first dorsal compartment tendons. We discussed options of management. He wishes to proceed with surgical intervention understanding the risks, complications, and potential benefits. Imaging Studies: Nm Myocardial Perfusion Multiple Spect Result Date: 12/12/2018 Nuclear Report Patient: CLAYTON Mccollum Med Rec#: [id number] (Age): 1945(73y) Height: Study Date: 12/12/2018 Weight: Room#: BSA: Type: Outpatient Loc: Sex: M Indications: -Diagnosis of CAD - Checklists: - Patient verbally identified self -Consent signed and placed in chart -Procedure verified and explained to patient -MedicationReconciliation completed. - Discharge instructions given Nuclear Cardiology Conclusion: Abnormal exercise myocardial perfusion with Tc-99m tetrofosmin imaging. No convincing evidence of inducible ischemia identified. Overall intermediate-risk study based on SCAI criteria (1-3% predicted annual cardiac mortality). Moderate to large inferior, inferolateral and apical infarcts with related LV dysfunction. Moderate LV dilation. Global left ventricular systolic function was moderately reduced, with an EF of 40%. Stress ECG Conclusion: Non-diagnostic exercise stress ECG Non- diagnostic changes secondary to resting ST-T abnormalities. HR Response to stress: normal BP response to stress: normal The patient experienced no chest pain. The test was terminated due to fatigue. An adequate level of stress was achieved. Exercise Protocol: A Thurman treadmill score of 7 was achieved. Total Exercise Time Thepatient exercised for a total of 07:00 min using the Standard Dain exercise protocol, achieving stage 3 and a max METs of 8.3. A Thurman treadmill score of 7 was achieved. Exercise functional capacity was good. Resting ECG RBBB. Tolerated exercise well, denies CP with exertion. Baseline ECG: Normal sinus rhythm. RBBB. Q-waves consistent with prior myocardial infarction. Non-specific ST-T wave changes. Non-specific T wave changes. Stress ECG : ECG was non-diagnostic, secondary to abnormal baselineECG. Hemodynamics REST STRESS RECOVERY SBP 175 mmHg 205 mmHg 205 mmHg DBP 77 mmHg 90 mmHg 90 mmHg HR 60 bpm 146 bpm 85 bpm %MPHR 100 % Imaging Protocol: This was a gated SPECT myocardial perfusion imaging study. A one day rest-stress imaging protocol was followed using Tc-99m tetrofosmin (Myoview) injected intravenously. For the rest portion of the study, 8.9 mCi of the radiopharmaceutical was administered at 12/12/2018 08:10:00. Rest imaging was performed at 09:10:00. For the stress portion ofthe study, 26.9 mCi was administered at 12/12/2018 09:48:00. Stress imaging was performed at 10:00:00. Perfusion Interpretation: The left ventricular cavity was moderately enlarged under post stress conditions. The left ventricular cavity was moderately enlarged under rest conditions. TID Ratio 1. There was a small, fixed defect in the apical anterior, apex segment(s). The extent of this perfusion defect was mild. There was a small, partially reversible defect in the basal inferolateral, apicallateral segment(s). The extent of this perfusion defect was mild to moderate. There was a medium, fixed defect in the basal inferior, mid inferior, apical inferior segment(s). The extent of this perfusion defect was mild to moderate. Wall Motion Interpretation: The patient's calculated post stress LVEF was 40%. Gated imaging under post-stress conditions demonstrated moderate hypokinesis of the basal anteroseptal, basal inferoseptal, basal inferior, mid anteroseptal, mid inferoseptal, mid inferior, apical septal, apical inferior segment(s); severe hypokinesis of the apical anterior, apex segment(s). Nuclear Doctor Interpreted Study and Electronically signed at 12/12/2018 15:06:04 by: Ernesto Gibbs MD, RV Assessment: SNOMED CT(R) 1. Wrist pain, chronic, right PAIN IN WRIST 2. De Quervain's disease (radial styloid tenosynovitis) RADIAL STYLOID TENOSYNOVITIS Plan: 1. Orders Placed This Encounter Procedures XR Wrist Right 3+ Views (Standard) No follow-ups on file. documented in this encounter* Jenaro Oquendo MD - 01/03/2019 10:12 AM EDT Dictation on: 01/03/2019 10:12 AM by: JENARO OQUENDO [[id number]] documented in this encounter* Preston Healy MD - 07/29/2019 1:49 PM EST [facility] [address] ([address]) [facility] [address] [facility] [id number] Subjective: Andrew Arnold is a 74 y.o. male seen in the office today for Chief Complaint Patient presents with Follow-up 6 mo ov w/ no complaints today Medication Refill pt would like RX to [facility] due to leaving tomorrow for [facility] Overview of Problems Addressed: Problem S/P Cabg (Coronary Artery Bypass Graft) ON 08/11/[address] SONAM MÉNDEZ History of coronary bypass grafting 3 History of tissue aortic valve replacement early August 2015. History of postoperative persistent atrial fibrillation no preop afib, history of amiodarone therapy started August 2015. Post op. Amiodarone discontinued Summer 2015. History of EF 48%, preop. Warfarin stopped 04/2016. History of cardioversion October 2015. Assessment & Plan: S/P CABG (coronary artery bypass graft) Nuclear stress test negative for any ischemia December 2018 persistent inferior defect with reduced ejection fraction however echo showed normal ejection fraction and wall motion. Except for postoperative septal wall motion changes. Patient denies any further chest discomfort or shortness of breath he is feeling well. Continued medical therapy See back in 6 months. Laboratory reviewed continues on low-dose of diuretic every other day with potassium. Blood pressure 111/63 pulse 69. Tissue aortic valve unremarkable on echocardiogram. No changes today. Histories: Past Medical History: Diagnosis Date Aortic valve calcification Arrhythmia Atrial fibrillation (HCC) after CABG CAD (coronary artery disease) 3 Vessel Claudication (HCC) Left lower extremity symptoms Diabetes mellitus, type 2 (HCC) Diabetic retinopathy (HCC) Laser treatment Fractures HLD (hyperlipidemia) Hypertension Mitral valve annular calcification Myocardial infarction (HCC) 08/02/2015 Non-ST Obesity Oral cancer (HCC) Pilonidal cyst Subdural hematoma (HCC) 2008 minor trauma while on Plavix at the time. Tendonitis of wrist, right TIA (transient ischemic attack) 2007 was put on plavix then had subdural one year later. Vitreous hemorrhage of left eye (HCC) Past Surgical History: Procedure Laterality Date AORTIC VALVE REPLACEMENT CARDIAC CATHETERIZATION CARDIAC VALVE REPLACEMENT CORONARY ARTERY BYPASS GRAFT 08/13/2015 3 Vessel/YEUNG to the LAD/SVG to obtuse marginal/SVG to a PDA MOUTH SURGERY 2007 Oral cancer TENDON RELEASE DEQUERVAINS Right 12/26/2018 Procedure: TENDON RELEASE DE QUERVAINS RIGHT; Surgeon: Jenaro Oquendo MD; Location: Main OR; Service: Orthopedic Family History Problem Relation Age of Onset COPD Mother Diabetes Father Social History Tobacco Use Smoking status: Former Smoker Packs/day: 3.00 Years: 12.00 Pack years: 36.00 Last attempt to quit: 08/27/1973 Years since quittin.9 Smokeless tobacco: Never Used Substance Use Topics Alcohol use: No Alcohol/week: 0.0 standard drinks Drug use: No Patient's Medications New Prescriptions No medications on file Previous Medications ACETAMINOPHEN (TYLENOL) 325 MG TABLET Take 650 mg by mouth every 6 (six) hours as needed for pain (1-2 tablets). ASCORBIC ACID (VITAMIN C) 500 MG CPER Take 500 mg by mouth every other day . ASPIRIN 81 MG EC TABLET Take 1 tablet (81 mg total) by mouth daily. BLOOD SUGAR DIAGNOSTIC (GLUCOSE BLOOD) STRIPS Dx code E11.9 use to check BG 4x daily. BLOOD SUGAR DIAGNOSTIC (RELION PRIME TEST STRIPS) STRIPS E11.65 Use as directed 4 times per day. BUMETANIDE (BUMEX) 1 MG TABLET Take 0.5 (one-half) tablet (0.5 mg total) by mouth every other day . DOCUSATE SODIUM (COLACE) 100 MG CAPSULE Take 100 mg by mouth 2 (two) times a day as needed . INSULIN GLARGINE (LANTUS U-100 INSULIN) 100 UNIT/ML INJECTION Use as directed approx 30 u per day total. . INSULIN LISPRO (HUMALOG) 100 UNIT/ML INJECTION Use as directed (approx 40 units/day) . INSULIN SYR/NDL U100 HALF JENARO 0.3 ML 31 GAUGE X 5/16 SYRG Diag code E11.319 Use 4 times daily . INSULIN SYRINGE-NEEDLE U-100 0.3 ML 31 X 5/16 SYRG Use as directed QID. LANCETS MISC Use to check BG QID SolusV2 brand Dx E11.65. LISINOPRIL (PRINIVIL,ZESTRIL) 10 MG TABLET Take 1 (one) tablet (10 mg total) by mouth daily . PEN NEEDLE, DIABETIC 31 GAUGE X 3/16 NDLE Use as directed 4 times daily. . Modified Medications Modified Medication Previous Medication METOPROLOL SUCCINATE (TOPROL-XL) 25 MG 24 HR TABLET metoprolol succinate (TOPROL-XL) 25 MG 24 hr tablet Take 1 (one) tablet (25 mg total) by mouth daily . Take 1 (one) tablet (25 mg total) by mouth daily. POTASSIUM CHLORIDE 20 MEQ TBER potassium chloride 20 mEq TbER Take 1 (one) tablet (20 mEq total) by mouth every other day . TAKE 1 TABLET BY MOUTH EVERY OTHER DAY SIMVASTATIN (ZOCOR) 20 MG TABLET simvastatin (ZOCOR) 20 MG tablet Take 1 (one) tablet (20 mg total) by mouth at bedtime . TAKE ONE TABLET BY MOUTH ONCE NIGHTLY Discontinued Medications No medications on file Allergies Allergen Reactions Pioglitazone GI Intolerance Review of Systems Constitution: Negative for diaphoresis, malaise/fatigue, weight gain and weight loss. HENT: Negative for hearing loss, nosebleeds and tinnitus. Eyes: Negative for blurred vision and visual disturbance. Cardiovascular: Negative for chest pain, claudication, cyanosis, dyspnea on exertion, irregular heartbeat, leg swelling, near-syncope, orthopnea, palpitations, paroxysmal nocturnal dyspnea and syncope. Respiratory: Negative for hemoptysis, shortness of breath and snoring. Endocrine: Negative for cold intolerance and heat intolerance. Hematologic/Lymphatic: Does not bruise/bleed easily. Skin: Negative for flushing, poor wound healing and rash. Musculoskeletal: Negative for back pain, muscle weakness and myalgias. Gastrointestinal: Negative for abdominal pain, change in bowel habit, melena, nausea and vomiting. Genitourinary: Negative for decreased libido and hematuria. Neurological: Negative for loss of balance and numbness. Psychiatric/Behavioral: Negative for memory loss. The patient is not nervous/anxious. Objective: Physical Exam Constitutional: He is oriented to person, place, and time. He appears well- developed. No distress. HENT: Head: Normocephalic. Eyes: Pupils are equal, round, and reactive to light. No scleral icterus. Neck: No JVD present. Cardiovascular: Regular rhythm, S1 normal, S2 normal and intact distal pulses. Exam reveals no gallop, no S3 and no S4. Murmur heard. Pulses: Carotid pulses are 2+ on the right side and 2+ on the left side. Radial pulses are 2+ on the right side and 2+ on the left side. Dorsalis pedis pulses are 1+ on the right side and 1+ on the left side. Posterior tibial pulses are 1+ on the right side and 1+ on the left side. 1-2/6 short systolic murmur. Pulmonary/Chest: Breath sounds normal. No stridor. No respiratory distress. He has no wheezes. He has no rales. Abdominal: Soft. He exhibits no distension. There is no abdominal tenderness. There is no guarding. Musculoskeletal: General: No tenderness or edema. Neurological: He is alert and oriented to person, place, and time. Coordination normal. Skin: Skin is warm and dry. He is not diaphoretic. Psychiatric: He has a normal mood and affect. Nursing note and vitals reviewed. Vitals: Vitals: 07/26/19 0930 BP: 111/63 BP Location: Left arm Patient Position: Sitting BP Cuff Size: Adult Pulse: 69 SpO2: 96% Weight: 98 kg (216 lb) Body mass index is 33.83 kg/m . No orders of the defined types were placed in this encounter. Follow Up Ordered: Return in about 6 months (around 01/24/2020). Preston Healy MD * Azalia Hernández MA - 07/26/2019 9:24 AM EST Review of Systems Constitution: Negative for diaphoresis, malaise/fatigue, weight gain and weight loss. HENT: Negative for hearing loss, nosebleeds and tinnitus. Eyes: Negative for blurred vision and visual disturbance. Cardiovascular: Negative for chest pain, claudication, cyanosis, dyspnea on exertion, irregular heartbeat, leg swelling, near-syncope, orthopnea, palpitations, paroxysmal nocturnal dyspnea and syncope. Respiratory: Negative for hemoptysis, shortness of breath and snoring. Endocrine: Negative for cold intolerance and heat intolerance. Hematologic/Lymphatic: Does not bruise/bleed easily. Skin: Negative for flushing, poor wound healing and rash. Musculoskeletal: Negative for back pain, muscle weakness and myalgias. Gastrointestinal: Negative for abdominal pain, change in bowel habit, melena, nausea and vomiting. Genitourinary: Negative for decreased libido and hematuria. Neurological: Negative for loss of balance and numbness. Psychiatric/Behavioral: Negative for memory loss. The patient is not nervous/anxious. documented in this encounter* Santiago Dozier PT - 10/02/2019 1:45 PM EDT [facility] Evaluation Today's Date 10/02/2019 Patient Name: Andrew Arnold Date of : 1945 Case Name: DDD Functional Diagnosis: 1. DDD (degenerative disc disease), lumbar Clinical Information: Subjective Referring Diagnosis: DDD Follow Up With Physician: none scheduled. History of Present Illness Date of Onset: years. Chief Complaint/ Mechanism of Injury: Pt reports c/o low back pain ongoing for years as well as recent onset of right hip pain. Pt states he has had back pain for years, beginning about 4 years ago following open heart surgery. Pt reports no recent injury and denies trauma. Pt states he has been noticing the most impairment with activity tolerance and ambulation. Pt denies numbness/tingling but reports intermittent radicular sx down the RLE described as sore and achy. X-Ray 09/20/19: Mineralization is within normal limits. Lumbar spine is in anatomic alignment with preservation of the vertebral body heights and disc spaces. There is [id number] multilevel disc space narrowing, endplate degenerative change and facet arthropathy. No spondylolisthesis. No focal bony lesion. No acute osseous abnormality. The sacroiliac joint spaces are unremarkable. Calcifications are seen within the abdominal aorta. Previous Imaging: X-ray Status: improving Pain Scale: Average Pain: 5/10 Pain at highest: 8/10 Aggravating factors: prolonged standing, walking Easing factors: sitting 24 Hour Symptom Behavior Morning Pain: gradual End of day pain: worse Functional Status Functional Limitations: standing and limited mobility Premorbid Functional Level: Patient reported and Independent with all ADLs/IADLs Current Functional Level: None Daily activity scale: low active Prior level of function: active Sleep Assessment Preferred sleep position: on side Sleep disturbance: no Sleep Disturbance Red Flags: None Barriers to Care: None Fall risk screening Fallen 2 or more times in the last 12 months: No Injured as a result of a fall in the last 12 months: No Personal Goals: Be able to walk longer distances Social History Occupation: Retired Home environment: house [employer], social, or cultural considerations to be made aware of before starting treatment: No Lumbar Spine Posture: reduced lordosis Trunk AROM: Baseline pain level and symptom location: No pain to begin assessment and no change in sx with ROM testing Movement Loss % of Loss Description Flexion 25% no onset of pain Extension 0% no onset of pain Side Gliding R 0% no onset of pain Side Gliding L 0% no onset of pain Dermatomes Sensation: grossly intact Muscle Strength: Hip Flexion Right: 4+ Left: 4+ Knee extension Right: 4+ Left: 4+ Ankle DF Right: 4+ Left: 4+ Ankle PF Right: 4+ Left: 4+ Knee flexion Right: 4+ Left: 4+ Hip extension Right: 4+ Left: 4+ Hip ABD Right: 4+ Left: 4+ Special Tests CHRISTI Negative bilaterally Scour Negative Bilaterally SLR Positive for HS tightness bilaterally FOTO Score: 49 Treatments: Physical Therapy Exercise Log - 10/02/19 1651 OTHER Notes 14:07 - 14:38 Therapeutic Exercise (89038) Intervention SciFit Parameters SKC Stretch Intervention PPTs Parameters LTR Intervention Seated HS and Piriformis stretches PT Treatment Times Total Treatment Time 30 Goals: Physical Therapy Ortho Goals: MOBILITY: Patient will be able to ambulate for 1 hour in community without difficulty in 4 weeks. MOBILITY: Patient will be able to ambulate on uneven surfaces without difficulty in 4 weeks. MOBILITY: Patient will be able to ascend/descend stairs without difficulty in 4 weeks. CHANGING MAINTAINING POSITON: Patient will be able to stand for 1 hour without pain in 4 weeks IMPAIRMENT: Improve pain from 5/10 to 1/10 on average throughout the day in 4 weeks OTHER: Patient will increase FOTO score to at least 60 to show MDC/MCII and expected functional outcome in 4 weeks. OTHER: Patient will be able to properly demonstrate independence with HEP in 2 weeks. CPT Code 57940 Low 94544 Moderate 66798 High History 0 1-2 3+ Comorbidities: cardiac history, DM, HTN, hx of neurological disease, obesity and prior surgical history, Personal factors: age and chronicity or severity of the current condition Examination of body systems (elements of body structures & functions, activity limitations, and/or participation restrictions) 1-2 elements 3+ elements 4+ elements See below clinical impression Clinical Presentation Stable Evolving Unstable As evidenced by reproduction of or changes in symptoms with certain movements and pt report of overall worsening of symtpoms over time Decision Making Low (FOTO >/= 69) Moderate (FOTO 34 - 68) High (FOTO </= 33) FOTO score= 49 Pt is a 74 y.o. male who presents to PT services with c/o low back pain. Upon assessment, pt has been found with the following impairments: impaired posture, decreased strength, decreased flexibilityof pelvic/hip muculature, antalgic gait and pain. The documented impairments result in the following functional limitations: regular PA/exercise, functional mobility, walking, recreational activitiesand quality of life. The pt would benefit from skilled PT services focused on the above listed impairments and limitations in order to safely progress pt to their desired level of function. Pt to be discharged from OP PT services if/when goals are met, if they fail to make progress with conservative management in PT, if their level of progress plateaus, or if they do not maintain compliance with attendance or HEP. At this time, it is my clinical judgment that services are medically necessary. Plan of Care Frequency of Visits: 2 times per week Duration: 4 weeks Interventions: Therapeutic Exercise, Neuromuscular Re-Education, Manual Therapy, Therapeutic/ Functional Activities, Gait Training and Hot/Cold Pack Rehab Potential: good and with appropriate interventions and HEP adherence Suicide Screen Signs and Symptoms of Abuse/Neglect: No Actions Taken: No Suicide Risk: Does the patient feel like ending their life today?No Actions Taken: No Patient Education Provided Pt was educated on the benefits of therapy and importance of compliance with sessions and HEP for rehabilitation. Pt was also educated on treatment diagnosis, POC, and frequency/duration of treatment. Clinical Impression Pt would benefit from PT interventions for possible lumbar strain/sprain to address impairments in posture, flexibility and core stability as well as pain control. Santiago Dozier PT State License, [id number] documented in this encounter* Amanda Johnson, EXCELLENCE MANAGER - 09/20/2019 10:02 AM EDT Andrew Mccollum Arnold 1945 CC: 74 y.o. is a he with right hip/buttock pain. Chief Complaint Patient presents with Right Hip - Pain . HPI: Hip Pain The patient states that this pain in his buttock and hip started about 4 or 5 years ago after he had his open heart surgery. He states that he had to walk around the [place] and found thathe started to have this pain in the lower buttock area. Over the past couple of years it has remained the same up until about 6 months ago when the pain started to radiate down the side of the leg into the knee. He states that when he walks for long periods of time, the pain gets worse. When he sits down then the pain does subside. He does take Tylenol which does seem to help with the pain. He states that the pain is manageable, he would just like to know what is wrong. The patient's past medical history, surgical history, social history, family history, medications and allergies were reviewed with the patient today and are available in the chart for further review. PMH: Allergies Allergen Reactions Pioglitazone GI Intolerance Current Outpatient Medications: acetaminophen (TYLENOL) 325 MG tablet, Take 650 mg by mouth every 6 (six) hours as needed for pain (1-2 tablets)., Disp: , Rfl: ascorbic Acid (VITAMIN C) 500 mg CpER, Take 500 mg by mouth every other day ., Disp: , Rfl: aspirin 81 MG EC tablet, Take 1 tablet (81 mg total) by mouth daily., Disp: 90 tablet, Rfl: 3 blood sugar diagnostic (glucose blood) strips, Dx code E11.9 use to check BG 4x daily., Disp: 150 strip, Rfl: 11 blood sugar diagnostic (RELION PRIME TEST STRIPS) strips, E11.65 Use as directed 4 times per day., Disp: 150 strip, Rfl: 11 bumetanide (BUMEX) 1 MG tablet, Take 0.5 (one-half) tablet (0.5 mg total) by mouth every other day ., Disp: 45 tablet, Rfl: 3 docusate sodium (COLACE) 100 MG capsule, Take 100 mg by mouth 2 (two) times a day as needed ., Disp: , Rfl: insulin glargine (LANTUS U-100 INSULIN) 100 unit/mL injection, Use as directed approx 30 u per day total. ., Disp: 30 mL, Rfl: 3 insulin lispro (HumaLOG) 100 unit/mL injection, Use as directed (approx 40 units/day) . (Patient taking differently: Use as directed (approx 40 units/day) Reasons: takes 3units or slide scale with breakfast lunch and supper.), Disp: 40 mL, Rfl: 3 insulin syr/ndl U100 half jenaro 0.3 mL 31 gauge x 5/16 Syrg, Diag code E11.319 Use 4 times daily .,Disp: 200 Syringe, Rfl: 10 insulin syringe-needle U-100 0.3 mL 31 x 5/16 Syrg, Use as directed QID., Disp: 400 each, Rfl: 3 lancets Misc, Use to check BG QID SolusV2 brand Dx E11.65., Disp: 200 each, Rfl: 11 lisinopril (PRINIVIL,ZESTRIL) 10 MG tablet, Take 1 (one) tablet (10 mg total) by mouth daily ., Disp: 90 tablet, Rfl: 3 metoprolol succinate (TOPROL-XL) 25 MG 24 hr tablet, Take 1 (one) tablet (25 mg total) by mouth daily ., Disp: 90 tablet, Rfl: 3 pen needle, diabetic 31 gauge x 3/16 Ndle, Use as directed 4 times daily. ., Disp: 400 each, Rfl: 3 potassium chloride 20 mEq TbER, Take 1 (one) tablet (20 mEq total) by mouth every other day ., Disp: 45 tablet, Rfl: 3 predniSONE (DELTASONE) 10 mg tablet pack, See Admin Instructions ., Disp: , Rfl: psyllium (METAMUCIL) 0.52 gram capsule, Take 2 capsules by mouth as needed ., Disp: , Rfl: simvastatin (ZOCOR) 20 MG tablet, Take 1 (one) tablet (20 mg total) by mouth at bedtime ., Disp: 90tablet, Rfl: 3 Past Medical History: Diagnosis Date Aortic valve calcification Arrhythmia Atrial fibrillation (HCC) after CABG CAD (coronary artery disease) 3 Vessel Claudication (HCC) Left lower extremity symptoms Diabetes mellitus, type 2 (HCC) Diabetic retinopathy (HCC) Laser treatment Fractures HLD (hyperlipidemia) Hypertension Mitral valve annular calcification Myocardial infarction (HCC) 08/02/2015 Non-ST Obesity Oral cancer (HCC) Pilonidal cyst Subdural hematoma (HCC) 2008 minor trauma while on Plavix at the time. Tendonitis of wrist, right TIA (transient ischemic attack) 2007 was put on plavix then had subdural one year later. Vitreous hemorrhage of left eye (HCC) Past Surgical History: Procedure Laterality Date AORTIC VALVE REPLACEMENT CARDIAC CATHETERIZATION CARDIAC VALVE REPLACEMENT CORONARY ARTERY BYPASS GRAFT 08/13/2015 3 Vessel/YEUNG to the LAD/SVG to obtuse marginal/SVG to a PDA MOUTH SURGERY 2007 Oral cancer TENDON RELEASE DEQUERVAINS Right 12/26/2018 Procedure: TENDON RELEASE DE QUERVAINS RIGHT; Surgeon: Jenaro Oquendo MD; Location: Main OR; Service: Orthopedic Social History Socioeconomic History Marital status: Spouse name: Not on file Number of children: Not on file Years of education: Not on file Highest education level: Not on file Occupational History Not on file Social Needs Financial resource strain: Not on file Food insecurity Worry: Not on file Inability: Not on file Transportation needs Medical: Not on file Non-medical: Not on file Tobacco Use Smoking status: Former Smoker Packs/day: 3.00 Years: 12.00 Pack years: 36.00 Last attempt to quit: 08/27/1973 Years since quittin.0 Smokeless tobacco: Never Used Substance and Sexual Activity Alcohol use: No Alcohol/week: 0.0 standard drinks Drug use: No Sexual activity: Not on file Lifestyle Physical activity Days per week: Not on file Minutes per session: Not on file Stress: Not on file Relationships Social connections Talks on phone: Not on file Gets together: Not on file Attends sabianism service: Not on file Active member of club or organization: Not on file Attends meetings of clubs or organizations: Not on file Relationship status: Not on file Other Topics Concern Not on file Social History Narrative Not on file ROS: Review of Systems Constitutional: Negative for activity change and fatigue. HENT: Negative for congestion, hearing loss and trouble swallowing. Eyes: Negative for visual disturbance. Respiratory: Negative for chest tightness and shortness of breath. Cardiovascular: Negative for chest pain and palpitations. Gastrointestinal: Negative for abdominal pain, diarrhea, nausea and vomiting. Endocrine: Negative for polydipsia, polyphagia and polyuria. Genitourinary: Negative for decreased urine volume, difficulty urinating and hematuria. Musculoskeletal: Positive for arthralgias. Negative for joint swelling and myalgias. Skin: Negative for color change, rash and wound. Allergic/Immunologic: Negative for immunocompromised state. Neurological: Negative for dizziness, weakness, light-headedness and numbness. Hematological: Does not bruise/bleed easily. Psychiatric/Behavioral: Negative for confusion and sleep disturbance. The patient is not nervous/anxious. PE: Physical Exam Constitutional: He is oriented to person, place, and time. He appears well- developed and well-nourished. HENT: Head: Normocephalic. Eyes: Pupils are equal, round, and reactive to light. Neck: Normal range of motion. Neck supple. Cardiovascular: Normal rate and regular rhythm. Pulmonary/Chest: Effort normal and breath sounds normal. Abdominal: Soft. Bowel sounds are normal. Musculoskeletal: Normal range of motion. Right hip: He exhibits tenderness. Legs: Neurological: He is alert and oriented to person, place, and time. Skin: Skin is warm and dry. ORTHO: Right Hip Exam Tenderness The patient is experiencing tenderness in the posterior. Range of Motion The patient has normal right hip ROM. Muscle Strength The patient has normal right hip strength. Tests CHRISTI: negative Gustavo: negative Other Erythema: absent Scars: absent Sensation: normal Pulse: present Comments: + straight leg raise Imaging: Pelvis There are no acute fractures or dislocations. No radiopaque foreign bodies. Vascular calcifications are visualized. Lumbar Mineralization is within normal limits. Lumbar spine is in anatomic alignment with preservation of the vertebral body heights and disc spaces. There is [id number] multilevel disc space narrowing, endplate degenerative change and facet arthropathy. No spondylolisthesis. No focal bony lesion. Assessment/Plan: After examination and reviewing of patient x-ray images, I offered the patient outpatient physical therapy for the lumbar spine which he gladly accepted. He is to continue OTC pain relief as needed. I will see him back if there is no improvement after finishing physical therapy. The patient verbalizes understanding and is in agreement with the treatment plan. Diagnosis: Problem List Items Addressed This Visit None Follow Up: documented in this encounter* Joyce Moraes PTA - 10/11/2019 1:45 PM EDT [facility] OUTPATIENT REHABILITATION DAILY TREATMENT NOTE Today's Date 10/11/2019 Patient Name: Andrew Arnold Date of : 1945 Current Visit #: 2 Authorized Visits: 100 Case Name: DDD History: Pre-Treatment Pain Scale: 4 Symptoms: 2nd visit Functional Diagnosis: 1. DDD (degenerative disc disease), lumbar Clinical Information: Subjective: Pt reports he has an off brand SciFit and has been using that everyday. He states he continues to work on his stretches from and feels it's already helping him. Objective Exercise program today focused on detailed HEP and educating pt through all exercises due to pt therapy postponed from COVID-19 emergency. Treatments: Physical Therapy Exercise Log - 10/11/19 1340 OTHER Notes 140-220 Vitals Ward Jacoyb, PT Therapeutic Exercise ([id number]) Parameters SKC Stretch, 20x3 Intervention PPTs, x10 Parameters LTR, 5x10 Intervention Seated HS and Piriformis stretches, 20x3 Parameters DKTC, 10x5 Intervention supine hip add, 5x10 Parameters supine hip abd, RTB x10 Intervention abdominal brace, 5x10 Parameters sink exs (hip abd, ext, marches) x10 PT Treatment Times Therex Total Time 40 Direct Treatment Time 40 Total Treatment Time 40 Goals: Physical Therapy Ortho Goals: MOBILITY: Patient will be able to ambulate for 1 hour in community without difficulty in 4 weeks. MOBILITY: Patient will be able to ambulate on uneven surfaces without difficulty in 4 weeks. MOBILITY: Patient will be able to ascend/descend stairs without difficulty in 4 weeks. CHANGING MAINTAINING POSITON: Patient will be able to stand for 1 hour without pain in 4 weeks IMPAIRMENT: Improve pain from 5/10 to 1/10 on average throughout the day in 4 weeks OTHER: Patient will increase FOTO score to at least 60 to show MDC/MCII and expected functional outcome in 4 weeks. OTHER: Patient will be able to properly demonstrate independence with HEP in 2 weeks. Patient Education: Quality of movement, Written HEP and HEP Adherence with patient verbalized understanding and written information provided . Provided pt with education and detailed written handout for HEP this visit. Therapist made sure all exercises were done correctly and understood by patient. Post-Treatment Pain Scale: 2 Assessment: Patient had an expected response to treatment. Pt reports relief post session. He demosgood form and understanding of exercises and asks questions when needed. Pt therapy is to be postponed at this time due to high risk with COVID-19 emergency with pt in agreement. Skilled Intervention demonstrated by modifications of treatment per exercise log including increased cueing, increased mobility, increased volume and assessment of patient's response and safety interventions per exercise log. Progress towards goals as expected. Plan for Next Visit: Pt postponed at this time. Joyce Moraes PTA STATE LICENSE, [id number] documented in this encounter* Radha Hughes CNP - 05/12/2020 9:29 AM EST Patient ID: Andrew Arnold is a 74 y.o. male 1945 Subjective: Andrew Arnold presents for follow-up of Type 2 diabetes Patient has had diabetes for 18 years. Diagnosed in 2000 Outpatient Medications Marked as Taking for the 05/12/20 encounter (Office Visit) with Radha Hughes CNP: acetaminophen (TYLENOL) 325 MG tablet, Take 650 mg by mouth every 6 (six) hours as needed for pain (1-2 tablets). ascorbic Acid (VITAMIN C) 500 mg CpER, Take 500 mg by mouth every other day . aspirin 81 MG EC tablet, Take 1 tablet (81 mg total) by mouth daily. blood sugar diagnostic (glucose blood) strips, Dx code E11.9 use to check BG 4x daily. blood sugar diagnostic (RELION PRIME TEST STRIPS) strips, E11.65 Use as directed 4 times per day. bumetanide (BUMEX) 1 MG tablet, TAKE 1/2 (ONE-HALF) TABLET BY MOUTH EVERY OTHER DAY docusate sodium (COLACE) 100 MG capsule, Take 100 mg by mouth 2 (two) times a day as needed . insulin glargine (LANTUS U-100 INSULIN) 100 unit/mL injection, Use as directed approx 30 u per day total. . insulin lispro (HumaLOG) 100 unit/mL injection, USE DIRECTED, APPROXIMATELY 20 UNITS A DAY. . insulin syr/ndl U100 half jenaro 0.3 mL 31 gauge x 5/16 Syrg, Diag code E11.319 Use 4 times daily . insulin syringe-needle U-100 0.3 mL 31 x 5/16 Syrg, Use as directed QID. lancets Misc, Use to check BG QID SolusV2 brand Dx E11.65. lisinopriL (PRINIVIL,ZESTRIL) 10 MG tablet, Take 1 (one) tablet (10 mg total) by mouth daily . metoprolol succinate (TOPROL-XL) 25 MG 24 hr tablet, Take 1 (one) tablet (25 mg total) by mouth daily . pen needle, diabetic 31 gauge x 3/16 Ndle, Use as directed 4 times daily. . potassium chloride 20 mEq TbER, Take 1 (one) tablet (20 mEq total) by mouth every other day . psyllium (METAMUCIL) 0.52 gram capsule, Take 2 capsules by mouth as needed . simvastatin (ZOCOR) 20 MG tablet, Take 1 (one) tablet (20 mg total) by mouth at bedtime . Review of Systems: Review of Systems Constitutional: Negative for fatigue and unexpected weight change. HENT: Positive for hearing loss. Negative for trouble swallowing. Eyes: Negative for visual disturbance. Respiratory: Negative for cough and shortness of breath. Cardiovascular: Negative for chest pain and leg swelling. Gastrointestinal: Negative for abdominal pain, constipation, diarrhea, nausea and vomiting. Endocrine: Negative for polydipsia, polyphagia and polyuria. Genitourinary: Negative for frequency and urgency. Skin: Negative for wound. Neurological: Negative for numbness and headaches. Psychiatric/Behavioral: Negative for agitation and sleep disturbance. The patient is not nervous/anxious. The following portions of the patient's history were reviewed and updated as appropriate: allergies, current medications, past family history, past medical history, past social history, past surgicalhistory and problem list. Objective: BP 131/69 Pulse 83 Ht 5' 7 Wt 96.7 kg (213 lb 3.2 oz) BMI 33.39 kg/m Wt Readings from Last 3 Encounters: 05/12/20 96.7 kg (213 lb 3.2 oz) 02/01/20 102.5 kg (226 lb) 12/31/19 101.2 kg (223 lb) Physical Exam: General: alert, appears stated age and cooperative Eyes: conjunctivae/corneas clear. PERRL, EOM's intact. Neck: no adenopathy, supple, symmetrical, trachea midline. Thyroid: No thyromegaly appreciated Lung: clear to auscultation bilaterally Heart: regular rate and rhythm, S1, S2 normal, no murmur, click, rub or gallop Extremities: extremities normal, atraumatic, no cyanosis or edema Feet: Dry skin, Bilateral Feet: warm, good capillary refill and normal DP. Monofilament exam Normal, bilateral lower extremities. Neuro: normal without focal findings, mental status, speech normal, alert and oriented x3 and [facility] Laboratory Review: BP 131/69 Pulse 83 Ht 5' 7 Wt 96.7 kg (213 lb 3.2 oz) BMI 33.39 kg/m Lab Results Component Value Date HGBA1C 8.9 05/05/2020 Glucose (mg/dL) Date Value 12/21/2018 159 (H) Creatinine (mg/dL) Date Value 05/05/2020 0.94 No results found for: CHOL, TRIG, HDL, LDLCALC, LDL Lab Results Component Value Date TSH 2.39 05/05/2020 Lab Results Component Value Date WBC 7.00 12/27/2019 HGB 14.0 12/27/2019 HCT 42.7 12/27/2019 MCV 83.1 12/21/2018 PLT 201 12/27/2019 Date: 05/05/20 *labs reviewed 05/12/20 Hgb A1c: 8.9% Creat: 0.94; eGFR: >60 K: 4.0 TSH: 2.39 ; FreeT4: 1.10 12/27/19 Hgb A1c: 9.0% Creat: 0.98; eGFR: >60 AST: 14; ALT: 21 K: 4.6 CBC: WBC:7.0; Hgb: 14.0; Hct: 42.7; Plt: 201 Tchol: 133; Tri ; HDL: 52 ; LDL: 70 TSH: 2.72 ; FreeT4: 1.05 02/20/19 Hgb A1c: 8.8% Creat: 1.0; eGFR: >60 AST: 22; ALT: 25 K: 4.1 10/23/2018 Hemoglobin A1c 9.7% Creatinine 1.00, EGFR >60, K4.2 AST 22, ALT 31 Microalbumin/creatinine ratio: 12 TSH 2.03, free T4 0.87 T cholesterol 118, TG 49, HDL 51, LDL 57 CBC: H/H 14.3/42.6, WBC 5.2, platelets 180,000 06/20/18 Hgb A1c: 6.3% Creat: 0.9; eGFR: >60 AST: 25; ALT: 17 K: 4.3 Assessment/Plan: Dx: 1. Type 2 diabetes mellitus with retinopathy of both eyes, with long-term current use of insulin, macular edema presence unspecified, unspecified retinopathy severity (HCC) 2. Essential hypertension 3. Hypercholesterolemia Type 2 diabetes, under fair control Currently taking: No oral hypoglycemic medications Humalog insulin: 4-6 units at breakfast; 4-6 units at lunch; 4-6 units at supper Lantus insulin: 25 units at bedtime Current Hemoglobin A1C= Lab Results Component Value Date HGBA1C 8.9 05/05/2020 HGBA1C 9.0 12/27/2019 HGBA1C 8.8 02/20/2019 Weight trend: has decreased 2 lbs. Current diet: carb controlled, avoiding concentrated sugars Current exercise: none Current monitoring regimen: home blood tests - 4 times daily Home blood sugar records: Fasting B-272 Pre-lunch B-246 Pre-supper B-252 Bedtime B-254 Any episodes of hypoglycemia? Occasionally, typically <1 time weekly. Aware of lows. NOTES: Hgb A1c increased slightly to 9.0% 12/28; compared to 8.8% 02/26. Patient currently on QID insulin. He would benefit from slight increase in insulin doses along with benefits of CGM for more information on BG control. PLAN: See below Retinopathy: Positive: Background diabetic retinopathy and Laser Treatment Exam within last 12 months: yes Date: 12/31/19 Store Administrative Assistant/Lang Interpreter: Other Ophthalmologic Conditions: None known Nephropathy: Negative Creat: 0.94 04/29 Lab Results Component Value Date CREATININE 0.94 05/05/2020 EXTEGFR >60 12/27/2019 EXTEGFRAFAME >60 12/27/2019 Microlbumin/creat ratio: No results found for: EXTMICROALBC Is patient on PATRICIA inhibitor or angiotensin II receptor julia? yes Lisinopril Peripheral Neuropathy: Negative Denies symptoms associated with neuropathy (numbness and/or tingling) Autonomic Neuropathy: Negative Hypoglycemia unawareness. Senses low BG at <100 mg/dl. Other: Hyperlipidemia: Positive Currently taking: simvastatin (Zocor). LFT's WNL Lab Results Component Value Date AST 14 12/27/2019 ALT 21 12/27/2019 Lab Results Component Value Date EXTCHOL 133 12/27/2019 EXTTRIG 56 12/27/2019 EXTHDL 52 12/27/2019 EXTLDLCALC 70 12/27/2019 Hypertension: Positive. Currently taking: bumetanide (Bumex), lisinopril (Prinivil) and metoprolol (Lopressor, Toprol) BP: 131/69 Cardiac: Positive Experiencing chest pain No . 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 Healy Vascular: Negative History of None Feet: Last foot exam: 05/09/20 saw podiatry. Follows with Podiatry: Yes Professor Of Theater: Dr. Arroyo History of foot ulceration: No History of amputation: No Thyroid: Lab Results Component Value Date TSH 2.39 05/05/2020 Negative Other: from colon cancer March 2017. Plan: 1. Rx changes: Adjust medications as below Humalog insulin: 4-6 units at breakfast; 4-6 units at lunch; 4-6 units at supper Lantus insulin: 25 units at bedtime 2. Education: Reviewed ABCs of diabetes management (respective goals in parentheses): A1C (7.0-8.0), blood pressure (<130/80), and cholesterol (LDL <100). 3. Compliance at present is estimated to be fair. Efforts to improve compliance (if necessary) willbe directed at increased exercise. Also, will be directed at dietary modifications: Limit starches,carbohydrates and concentrated sugar sources 4. Follow up: 4 months 5. Record blood sugar readings as instructed. Call if BG consistently <70 or >250. [phone] Mr. Arnold would benefit from [employer] continuous glucose monitoring system. Patient has had Type 2 diabetes for >20 years. Complications include diabetic retinopathy Patient is currently managed with: insulin injections Patient has been checking their blood sugar 4 times per day Patient is positive for a history of reoccurring hypoglycemia <50. Patient is predisposed to hypoglycemia, and has had 1 hypoglycemic episodes in the last 7-14 days. Patient's most recent Hgb A1c was 9% on 09/27 Patient's HGb is <6.0% or >8.5% Patient currently takes humalog and lantus insulin injections 4 times daily. Patient is negative for a history of hypoglycemic unawareness Patient has inadequate control despite compliance with multiple alterations in insulin doses/medication regimen. Patient has been checking blood glucoses 4 times daily for the past 90 days. Patient needs to continue checking blood glucoses 4 times daily. Blood glucose readings are used to adjust medication or insulin doses for meals, monitor dietary compliance, and adjust for high or low blood glucoses by patient on a daily basis. Blood glucose readings are reviewed at office visits for adjustment in medication regimen and assistance with dietary management, and other self- management issues including exercise, etc. Prognosis: Good. Duration of need for diabetes testing equipment: Permanent #150 strips/month prescribed. 6. Bring blood sugar meter to follow up appointment. Orders Placed This Encounter Procedures Comprehensive Metabolic Panel Hemoglobin A1c TSH T4, Free CBC and Differential Lipid Panel documented in this encounter* Joe Viramontes LPN - 12/15/2018 11:31 AM EDT No auth needed for December 26 procedure documented in this encounter* Radha Hughes CNP - 03/01/2019 8:55 AM EDT Patient ID: Andrew Arnold is a 73 y.o. male 1945 Subjective: Andrew Arnold presents for follow-up of Type 2 diabetes Patient has had diabetes for 18 years. Diagnosed in 2000 Outpatient Medications Marked as Taking for the 03/01/19 encounter (Office Visit) with Radha Hughes CNP: acetaminophen (TYLENOL) 325 MG tablet, Take 650 mg by mouth every 6 (six) hours as needed for pain (1-2 tablets). ascorbic Acid (VITAMIN C) 500 mg CpER, Take 500 mg by mouth every other day . aspirin 81 MG EC tablet, Take 1 tablet (81 mg total) by mouth daily. blood sugar diagnostic (glucose blood) strips, Dx code E11.9 use to check BG 4x daily. blood sugar diagnostic (RELION PRIME TEST STRIPS) strips, E11.65 Use as directed 4 times per day. bumetanide (BUMEX) 1 MG tablet, Take 0.5 tablets (0.5 mg total) by mouth every other day. docusate sodium (COLACE) 100 MG capsule, Take 100 mg by mouth 2 (two) times a day as needed . insulin glargine (LANTUS U-100 INSULIN) 100 unit/mL injection, Use as directed approx 30 u per day total. . insulin lispro (HumaLOG) 100 unit/mL injection, Use as directed (approx 40 units/day) . (Patient taking differently: Use as directed (approx 40 units/day) Reasons: takes 3units or slide scale with breakfast lunch and supper.) insulin syr/ndl U100 half jenaro 0.3 mL 31 gauge x 5/16 Syrg, Diag code E11.319 Use 4 times daily . insulin syringe-needle U-100 0.3 mL 31 x 5/16 Syrg, Use as directed QID. lancets Misc, Use to check BG QID SolusV2 brand Dx E11.65. lisinopril (PRINIVIL,ZESTRIL) 10 MG tablet, Take 1 (one) tablet (10 mg total) by mouth daily . metoprolol succinate (TOPROL-XL) 25 MG 24 hr tablet, Take 1 (one) tablet (25 mg total) by mouth daily . pen needle, diabetic 31 gauge x 3/16 Ndle, Use as directed 4 times daily. . potassium chloride 20 mEq TbER, Take 1 (one) tablet (20 mEq total) by mouth every other day . sildenafil (VIAGRA) 100 MG tablet, Take 1 (one) tablet (100 mg total) by mouth as needed for erectile dysfunction. simvastatin (ZOCOR) 20 MG tablet, TAKE ONE TABLET BY MOUTH ONCE NIGHTLY Review of Systems: Review of Systems The following portions of the patient's history were reviewed and updated as appropriate: allergies, current medications, past family history, past medical history, past social history, past surgicalhistory and problem list. Objective: BP 129/76 Pulse (!) 59 Ht 5' 7 Wt 95.7 kg (211 lb) BMI 33.05 kg/m Wt Readings from Last 3 Encounters: 03/01/19 95.7 kg (211 lb) 12/26/18 91.6 kg (202 lb) 12/15/18 93.9 kg (207 lb) Physical Exam: General: alert, appears stated age and cooperative Eyes: conjunctivae/corneas clear. PERRL, EOM's intact. Neck: no adenopathy, supple, symmetrical, trachea midline. Thyroid: No thyromegaly appreciated Lung: clear to auscultation bilaterally Heart: regular rate and rhythm, S1, S2 normal, no murmur, click, rub or gallop Extremities: extremities normal, atraumatic, no cyanosis or edema Feet: Dry skin, Bilateral Feet: warm, good capillary refill and normal DP. Monofilament exam Normal, bilateral lower extremities. Neuro: normal without focal findings, mental status, speech normal, alert and oriented x3 and SIERRA Laboratory Review: BP 129/76 Pulse (!) 59 Ht 5' 7 Wt 95.7 kg (211 lb) BMI 33.05 kg/m Lab Results Component Value Date HGBA1C 8.8 02/20/2019 Glucose (mg/dL) Date Value 12/21/2018 159 (H) Creatinine (mg/dL) Date Value 02/20/2019 1.00 No results found for: CHOL, TRIG, HDL, LDLCALC, LDL Lab Results Component Value Date TSH 2.03 10/23/2018 Lab Results Component Value Date WBC 5.44 12/21/2018 HGB 13.9 12/21/2018 HCT 41.7 12/21/2018 MCV 83.1 12/21/2018 PLT 163 12/21/2018 Date: 02/20/19 Hgb A1c: 8.8% Creat: 1.0; eGFR: >60 AST: 22; ALT: 25 K: 4.1 10/23/2018 Hemoglobin A1c 9.7% Creatinine 1.00, EGFR >60, K4.2 AST 22, ALT 31 Microalbumin/creatinine ratio: 12 TSH 2.03, free T4 0.87 T cholesterol 118, TG 49, HDL 51, LDL 57 CBC: H/H 14.3/42.6, WBC 5.2, platelets 180,000 06/20/18 Hgb A1c: 6.3% Creat: 0.9; eGFR: >60 AST: 25; ALT: 17 K: 4.3 Assessment/Plan: Dx: 1. Type 2 diabetes mellitus with retinopathy of both eyes, with long-term current use of insulin, macular edema presence unspecified, unspecified retinopathy severity (HCC) 2. Essential hypertension 3. Hypercholesterolemia Type 2 diabetes, under fair control Currently taking: No oral hypoglycemic medications Humalog insulin: 3 units at breakfast; 3 units at lunch; 3 units at supper Lantus insulin: 22 units at bedtime Current Hemoglobin A1C= Lab Results Component Value Date HGBA1C 8.8 02/20/2019 HGBA1C 9.7 10/23/2018 Weight trend: has increased 5 lbs. Current diet: carb controlled, avoiding concentrated sugars Current exercise: none Current monitoring regimen: home blood tests - 4 times daily Home blood sugar records: Fasting B-272 Pre-lunch B-246 Pre-supper B-252 Bedtime B-254 Any episodes of hypoglycemia? no NOTES: Hgb A1c improved slightly to 8.8% 02/26. Patient currently on QID insulin. He would benefit from slight increase in insulin doses. PLAN: See below Retinopathy: Positive: Background diabetic retinopathy and Laser Treatment Exam within last 12 months: yes Date: 07/29 Store Administrative Assistant/Lang Interpreter: Other Ophthalmologic Conditions: None known Nephropathy: Negative Creat: 1.0 02/26 Lab Results Component Value Date CREATININE 1.00 02/20/2019 EXTEGFR >60 02/20/2019 EXTEGFRAFAME >60 02/20/2019 Microlbumin/creat ratio: No results found for: EXTMICROALBC Is patient on PATRICIA inhibitor or angiotensin II receptor julia? yes Lisinopril Peripheral Neuropathy: Negative Denies symptoms associated with neuropathy (numbness and/or tingling) Autonomic Neuropathy: Negative Hypoglycemia unawareness. Senses low BG at <100 mg/dl. Other: Hyperlipidemia: Positive Currently taking: simvastatin (Zocor). LFT's WNL Lab Results Component Value Date AST 22 02/20/2019 ALT 25 02/20/2019 Lab Results Component Value Date EXTCHOL 118 10/23/2018 EXTTRIG 49 10/23/2018 EXTHDL 51 10/23/2018 EXTLDLCALC 57 10/23/2018 Hypertension: Positive. Currently taking: bumetanide (Bumex), lisinopril (Prinivil) and metoprolol (Lopressor, Toprol) BP: 129/76 Cardiac: Positive Experiencing chest pain No . 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 Healy Vascular: Negative History of None Feet: Last foot exam: 03/01/19 Follows with Podiatry: Yes Professor Of Theater: Dr. Arroyo History of foot ulceration: No History of amputation: No Thyroid: Lab Results Component Value Date TSH 2.03 10/23/2018 Negative Other: from colon cancer March 2017. Plan: 1. Rx changes: Adjust medications as below Humalog insulin: 3 units at breakfast; 4 units at lunch; 4 units at supper Lantus insulin: 23 units at bedtime 2. Education: Reviewed ABCs of diabetes management (respective goals in parentheses): A1C (7.0-8.0), blood pressure (<130/80), and cholesterol (LDL <100). 3. Compliance at present is estimated to be fair. Efforts to improve compliance (if necessary) willbe directed at increased exercise. Also, will be directed at dietary modifications: Limit starches,carbohydrates and concentrated sugar sources 4. Follow up: 4 months 5. Record blood sugar readings as instructed. Call if BG consistently <70 or >250. [phone] Patient has been checking blood glucoses 4 times daily for the past 90 days. Patient needs to continue checking blood glucoses 4 times daily. Blood glucose readings are used to adjust medication or insulin doses for meals, monitor dietary compliance, and adjust for high or low blood glucoses by patient on a daily basis. Blood glucose readings are reviewed at office visits for adjustment in medication regimen and assistance with dietary management, and other self- management issues including exercise, etc. Prognosis: Good. Duration of need for diabetes testing equipment: Permanent #150 strips/month prescribed. 6. Bring blood sugar meter to follow up appointment. Orders Placed This Encounter Procedures Hemoglobin A1c Comprehensive Metabolic Panel TSH T4, Free Lipid Panel CBC and Differential documented in this encounter* Radha Hughes CNP - 12/31/2019 2:48 PM EDT Patient ID: Andrew Arnold is a 74 y.o. male 1945 Subjective: Andrew Arnold presents for follow-up of Type 2 diabetes Patient has had diabetes for 18 years. Diagnosed in 2000 Outpatient Medications Marked as Taking for the 12/31/19 encounter (Office Visit) with Radha Hughes CNP: acetaminophen (TYLENOL) 325 MG tablet, Take 650 mg by mouth every 6 (six) hours as needed for pain (1-2 tablets). ascorbic Acid (VITAMIN C) 500 mg CpER, Take 500 mg by mouth every other day . aspirin 81 MG EC tablet, Take 1 tablet (81 mg total) by mouth daily. blood sugar diagnostic (glucose blood) strips, Dx code E11.9 use to check BG 4x daily. blood sugar diagnostic (RELION PRIME TEST STRIPS) strips, E11.65 Use as directed 4 times per day. bumetanide (BUMEX) 1 MG tablet, Take 0.5 (one-half) tablet (0.5 mg total) by mouth every other day . docusate sodium (COLACE) 100 MG capsule, Take 100 mg by mouth 2 (two) times a day as needed . insulin glargine (LANTUS U-100 INSULIN) 100 unit/mL injection, Use as directed approx 30 u per day total. . insulin lispro (HumaLOG) 100 unit/mL injection, Use as directed (approx 40 units/day) . (Patient taking differently: Use as directed (approx 40 units/day) Reasons: takes 3units or slide scale with breakfast lunch and supper.) insulin syr/ndl U100 half jenaro 0.3 mL 31 gauge x 5/16 Syrg, Diag code E11.319 Use 4 times daily . insulin syringe-needle U-100 0.3 mL 31 x 5/16 Syrg, Use as directed QID. lancets [facility] Use to check BG QID SolusV2 brand Dx E11.65. lisinopriL (PRINIVIL,ZESTRIL) 10 MG tablet, Take 1 (one) tablet (10 mg total) by mouth daily . metoprolol succinate (TOPROL-XL) 25 MG 24 hr tablet, Take 1 (one) tablet (25 mg total) by mouth daily . pen needle, diabetic 31 gauge x 3/16 Ndle, Use as directed 4 times daily. . potassium chloride 20 mEq TbER, Take 1 (one) tablet (20 mEq total) by mouth every other day . psyllium (METAMUCIL) 0.52 gram capsule, Take 2 capsules by mouth as needed . simvastatin (ZOCOR) 20 MG tablet, Take 1 (one) tablet (20 mg total) by mouth at bedtime . Review of Systems: Review of Systems Constitutional: Negative for fatigue and unexpected weight change. HENT: Positive for hearing loss. Negative for trouble swallowing. Eyes: Negative for visual disturbance. Respiratory: Negative for cough and shortness of breath. Cardiovascular: Negative for chest pain and leg swelling. Gastrointestinal: Negative for abdominal pain, constipation, diarrhea, nausea and vomiting. Endocrine: Negative for polydipsia, polyphagia and polyuria. Genitourinary: Negative for frequency and urgency. Skin: Negative for wound. Neurological: Negative for numbness and headaches. Psychiatric/Behavioral: Negative for agitation and sleep disturbance. The patient is not nervous/anxious. The following portions of the patient's history were reviewed and updated as appropriate: allergies, current medications, past family history, past medical history, past social history, past surgicalhistory and problem list. Objective: BP (!) 161/72 Pulse 86 Ht 5' 7 Wt 101.2 kg (223 lb) BMI 34.93 kg/m Wt Readings from Last 3 Encounters: 12/31/19 101.2 kg (223 lb) 09/20/19 102.1 kg (225 lb) 07/26/19 98 kg (216 lb) Physical Exam: General: alert, appears stated age and cooperative Eyes: conjunctivae/corneas clear. PERRL, EOM's intact. Neck: no adenopathy, supple, symmetrical, trachea midline. Thyroid: No thyromegaly appreciated Lung: clear to auscultation bilaterally Heart: regular rate and rhythm, S1, S2 normal, no murmur, click, rub or gallop Extremities: extremities normal, atraumatic, no cyanosis or edema Feet: Dry skin, Bilateral Feet: warm, good capillary refill and normal DP. Monofilament exam Normal, bilateral lower extremities. Neuro: normal without focal findings, mental status, speech normal, alert and oriented x3 and [place] Laboratory Review: BP (!) 161/72 Pulse 86 Ht 5' 7 Wt 101.2 kg (223 lb) BMI 34.93 kg/m Lab Results Component Value Date HGBA1C 9.0 12/27/2019 Glucose (mg/dL) Date Value 12/21/2018 159 (H) Creatinine (mg/dL) Date Value 12/27/2019 0.98 No results found for: CHOL, TRIG, HDL, LDLCALC, LDL Lab Results Component Value Date TSH 2.72 12/27/2019 Lab Results Component Value Date WBC 7.00 12/27/2019 HGB 14.0 12/27/2019 HCT 42.7 12/27/2019 MCV 83.1 12/21/2018 PLT 201 12/27/2019 Date: 12/27/19 *labs reviewed 01/03/20 Hgb A1c: 9.0% Creat: 0.98; eGFR: >60 AST: 14; ALT: 21 K: 4.6 CBC: WBC:7.0; Hgb: 14.0; Hct: 42.7; Plt: 201 Tchol: 133; Tri ; HDL: 52 ; LDL: 70 TSH: 2.72 ; FreeT4: 1.05 02/20/19 Hgb A1c: 8.8% Creat: 1.0; eGFR: >60 AST: 22; ALT: 25 K: 4.1 10/23/2018 Hemoglobin A1c 9.7% Creatinine 1.00, EGFR >60, K4.2 AST 22, ALT 31 Microalbumin/creatinine ratio: 12 TSH 2.03, free T4 0.87 T cholesterol 118, TG 49, HDL 51, LDL 57 CBC: H/H 14.3/42.6, WBC 5.2, platelets 180,000 06/20/18 Hgb A1c: 6.3% Creat: 0.9; eGFR: >60 AST: 25; ALT: 17 K: 4.3 Assessment/Plan: Dx: 1. Type 2 diabetes mellitus with retinopathy of both eyes, with long-term current use of insulin, macular edema presence unspecified, unspecified retinopathy severity (HCC) Comprehensive Metabolic Panel Hemoglobin A1c TSH T4, Free 2. Essential hypertension 3. Hypercholesterolemia Type 2 diabetes, under fair control Currently taking: No oral hypoglycemic medications Humalog insulin: 4-6 units at breakfast; 4-6 units at lunch; 4-6 units at supper Lantus insulin: 25 units at bedtime Current Hemoglobin A1C= Lab Results Component Value Date HGBA1C 9.0 12/27/2019 HGBA1C 8.8 02/20/2019 HGBA1C 9.7 10/23/2018 Weight trend: has decreased 2 lbs. Current diet: carb controlled, avoiding concentrated sugars Current exercise: none Current monitoring regimen: home blood tests - 4 times daily Home blood sugar records: Fasting B-272 Pre-lunch B-246 Pre-supper B-252 Bedtime B-254 Any episodes of hypoglycemia? Occasionally, typically <1 time weekly. Aware of lows. NOTES: Hgb A1c increased slightly to 9.0% 12/28; compared to 8.8% 02/26. Patient currently on QID insulin. He would benefit from slight increase in insulin doses along with benefits of CGM for more information on BG control. PLAN: See below Retinopathy: Positive: Background diabetic retinopathy and Laser Treatment Exam within last 12 months: yes Date: 12/31/19 Store Administrative Assistant/Lang Interpreter: Other Ophthalmologic Conditions: None known Nephropathy: Negative Creat: 0.98 12/27/19 Lab Results Component Value Date CREATININE 0.98 12/27/2019 EXTEGFR >60 12/27/2019 EXTEGFRAFAME >60 12/27/2019 Microlbumin/creat ratio: No results found for: EXTMICROALBC Is patient on PATRICIA inhibitor or angiotensin II receptor julia? yes Lisinopril Peripheral Neuropathy: Negative Denies symptoms associated with neuropathy (numbness and/or tingling) Autonomic Neuropathy: Negative Hypoglycemia unawareness. Senses low BG at <100 mg/dl. Other: Hyperlipidemia: Positive Currently taking: simvastatin (Zocor). LFT's WNL Lab Results Component Value Date AST 14 12/27/2019 ALT 21 12/27/2019 Lab Results Component Value Date EXTCHOL 133 12/27/2019 EXTTRIG 56 12/27/2019 EXTHDL 52 12/27/2019 EXTLDLCALC 70 12/27/2019 Hypertension: Positive. Currently taking: bumetanide (Bumex), lisinopril (Prinivil) and metoprolol (Lopressor, Toprol) BP: (!) 161/72 Cardiac: Positive Experiencing chest pain No . 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 Healy Vascular: Negative History of None Feet: Last foot exam: 12/31/19 Follows with Podiatry: Yes Professor Of Theater: Dr. Arroyo History of foot ulceration: No History of amputation: No Thyroid: Lab Results Component Value Date TSH 2.72 12/27/2019 Negative Other: from colon cancer March 2017. Plan: 1. Rx changes: Adjust medications as below Humalog insulin: 4-6 units at breakfast; 4-6 units at lunch; 4-6 units at supper Lantus insulin: 25 units at bedtime 2. Education: Reviewed ABCs of diabetes management (respective goals in parentheses): A1C (7.0-8.0), blood pressure (<130/80), and cholesterol (LDL <100). 3. Compliance at present is estimated to be fair. Efforts to improve compliance (if necessary) willbe directed at increased exercise. Also, will be directed at dietary modifications: Limit starches,carbohydrates and concentrated sugar sources 4. Follow up: 4 months 5. Record blood sugar readings as instructed. Call if BG consistently <70 or >250. [phone] Mr. Arnold would benefit from [employer] continuous glucose monitoring system. Patient has had Type 2 diabetes for >20 years. Complications include diabetic retinopathy Patient is currently managed with: insulin injections Patient has been checking their blood sugar 4 times per day Patient is positive for a history of reoccurring hypoglycemia <50. Patient is predisposed to hypoglycemia, and has had 1 hypoglycemic episodes in the last 7-14 days. Patient's most recent Hgb A1c was 9% on 09/27 Patient's HGb is <6.0% or >8.5% Patient currently takes humalog and lantus insulin injections 4 times daily. Patient is negative for a history of hypoglycemic unawareness Patient has inadequate control despite compliance with multiple alterations in insulin doses/medication regimen. Patient has been checking blood glucoses 4 times daily for the past 90 days. Patient needs to continue checking blood glucoses 4 times daily. Blood glucose readings are used to adjust medication or insulin doses for meals, monitor dietary compliance, and adjust for high or low blood glucoses by patient on a daily basis. Blood glucose readings are reviewed at office visits for adjustment in medication regimen and assistance with dietary management, and other self- management issues including exercise, etc. Prognosis: Good. Duration of need for diabetes testing equipment: Permanent #150 strips/month prescribed. 6. Bring blood sugar meter to follow up appointment. Orders Placed This Encounter Procedures Comprehensive Metabolic Panel Hemoglobin A1c TSH T4, Free documented in this encounter* Preston Healy MD - 12/01/2018 8:04 AM EDT [facility] [address] [facility] [address] [facility] [id number] Subjective: Andrew Arnold is a 73 y.o. male seen in the office today for Chief Complaint Patient presents with Follow-up c/o indigestion- like pains Overview of Problems Addressed: Problem Chest Pain Seen December 01, 2018 new complaint of last couple months of 15 to 30 minutes of discomfort low substernal lobe in the left side. Optically related to exertion might come on after eating some. No diaphoresis no nausea. Lets up after 30 minutes. Otherwise he is feeling reasonably well has gained a little weight blood pressure running high at 162/82 blood work reviewed per Dr. Yeh a month ago liver function tests renal function normal. A1c elevated. Cardiac exam unremarkable regular rhythm. Soft 1/6 short systolic murmur. Abdomen is obese but soft nontender. Chronic low back pain. 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 History of postoperative persistent atrial fibrillation no preop afib, history of amiodarone therapy started August 2015. Post op. Amiodarone discontinued Summer 2015. History of EF 48%, preop. Warfarin stopped 04/2016. History of cardioversion October 2015. Assessment & Plan: Chest pain Concerning for possible angina pectoris. We will set up nuclear stress test Check echocardiogram some mild dyspnea on exertion check aortic root although no upper chest or back pain. Check chest x-ray Check ultrasound abdominal aorta difficult to palpate. No abdominal discomfort. On palpation Recommend he follow-up with PCP regarding further possible testing such as CT scan of the abdomen. Tells me he had a colonoscopy last 5 years. Increase lisinopril 10 mg daily with elevated blood pressure currently only on 2.5 mg daily. May need to be further increase moving forward. Further recommendations pending results of the testing. S/P CABG (coronary artery bypass graft) Vitals: 12/01/18 0746 BP: (!) 162/82 BP Location: Left arm Patient Position: Sitting Pulse: 60 SpO2: 95% Weight: 94.2 kg (207 lb 9.6 oz) Height: 5' 7 Histories: Past Medical History: Diagnosis Date Aortic valve calcification Arrhythmia CAD (coronary artery disease) 3 Vessel Claudication (HCC) Left lower extremity symptoms Diabetes mellitus, type 2 (HCC) Diabetic retinopathy (HCC) Laser treatment Fractures HLD (hyperlipidemia) Hypertension Mitral valve annular calcification Myocardial infarction (HCC) 08/02/2015 Non-ST Obesity Oral cancer (HCC) Pilonidal cyst Subdural hematoma (HCC) 2008 minor trauma while on Plavix at the time. Tendonitis of wrist, right TIA (transient ischemic attack) 2007 was put on plavix then had subdural one year later. Vitreous hemorrhage of left eye (HCC) Past Surgical History: Procedure Laterality Date AORTIC VALVE REPLACEMENT CARDIAC CATHETERIZATION CARDIAC VALVE REPLACEMENT CORONARY ARTERY BYPASS GRAFT 08/13/2015 3 Vessel/YEUNG to the LAD/SVG to obtuse marginal/SVG to a PDA MOUTH SURGERY 2007 Oral cancer Family History Problem Relation Age of Onset COPD Mother Diabetes Father Social History Tobacco Use Smoking status: Former Smoker Packs/day: 3.00 Years: 12.00 Pack years: 36.00 Last attempt to quit: 08/27/1973 Years since quittin.2 Smokeless tobacco: Never Used Substance Use Topics Alcohol use: No Alcohol/week: 0.0 standard drinks Drug use: No Patient's Medications New Prescriptions No medications on file Previous Medications ACETAMINOPHEN (TYLENOL) 325 MG TABLET Take 650 mg by mouth every 6 (six) hours as needed for pain (1-2 tablets). ASCORBIC ACID (VITAMIN C) 500 MG CPER Take 500 mg by mouth every other day . ASPIRIN 81 MG EC TABLET Take 1 tablet (81 mg total) by mouth daily. BLOOD SUGAR DIAGNOSTIC (GLUCOSE BLOOD) STRIPS Dx code E11.9 use to check BG 4x daily. BLOOD SUGAR DIAGNOSTIC (RELION PRIME TEST STRIPS) STRIPS E11.65 Use as directed 4 times per day. BUMETANIDE (BUMEX) 1 MG TABLET Take 0.5 tablets (0.5 mg total) by mouth every other day. DOCUSATE SODIUM (COLACE) 100 MG CAPSULE Take 100 mg by mouth 2 (two) times a day as needed . INSULIN GLARGINE (LANTUS U-100 INSULIN) 100 UNIT/ML INJECTION Inject 30 (thirty) Units under the skin nightly. INSULIN LISPRO (HUMALOG) 100 UNIT/ML INJECTION Use as directed (approx 40 units/day) . INSULIN SYR/NDL U100 HALF JENARO 0.3 ML 31 GAUGE X 5/16 SYRG Diag code E11.319 Use 4 times daily . INSULIN SYRINGE-NEEDLE U-100 0.3 ML 31 X 5/16 SYRG Use as directed QID. LANCETS MISC Use to check BG QID SolusV2 brand Dx E11.65. METOPROLOL SUCCINATE (TOPROL-XL) 25 MG 24 HR TABLET Take 1 (one) tablet (25 mg total) by mouth daily . PEN NEEDLE, DIABETIC 31 GAUGE X /16 NDLE Use as directed 4 times daily. . POTASSIUM CHLORIDE 20 MEQ TBER Take 1 (one) tablet (20 mEq total) by mouth every other day . SILDENAFIL (VIAGRA) 100 MG TABLET Take 1 (one) tablet (100 mg total) by mouth as needed for erectile dysfunction. SIMVASTATIN (ZOCOR) 20 MG TABLET TAKE ONE TABLET BY MOUTH ONCE NIGHTLY Modified Medications Modified Medication Previous Medication LISINOPRIL (PRINIVIL,ZESTRIL) 10 MG TABLET lisinopril (PRINIVIL,ZESTRIL) 2.5 MG tablet Take 1 (one) tablet (10 mg total) by mouth daily . Take 1 (one) tablet (2.5 mg total) by mouth daily . Discontinued Medications No medications on file Allergies Allergen Reactions Pioglitazone Review of Systems Constitution: Negative for diaphoresis, malaise/fatigue, weight gain and weight loss. HENT: Negative for hearing loss, nosebleeds and tinnitus. Eyes: Negative for blurred vision and visual disturbance. Cardiovascular: Negative for chest pain, claudication, cyanosis, dyspnea on exertion, irregular heartbeat, leg swelling, near-syncope, orthopnea, palpitations, paroxysmal nocturnal dyspnea and syncope. Respiratory: Negative for hemoptysis, shortness of breath and snoring. Endocrine: Negative for cold intolerance and heat intolerance. Hematologic/Lymphatic: Does not bruise/bleed easily. Skin: Negative for flushing, poor wound healing and rash. Musculoskeletal: Negative for back pain, muscle weakness and myalgias. Gastrointestinal: Positive for heartburn. Negative for abdominal pain, change in bowel habit, melena, nausea and vomiting. Genitourinary: Negative for decreased libido and hematuria. Neurological: Negative for loss of balance and numbness. Psychiatric/Behavioral: Negative for memory loss. The patient is not nervous/anxious. Objective: Physical Exam Constitutional: He is oriented to person, place, and time. He appears well- developed. No distress. HENT: Head: Normocephalic. Eyes: Pupils are equal, round, and reactive to light. No scleral icterus. Neck: No JVD present. Cardiovascular: Regular rhythm, S1 normal, S2 normal and intact distal pulses. Exam reveals no gallop, no S3 and no S4. Murmur heard. Pulses: Carotid pulses are 2+ on the right side, and 2+ on the left side. Radial pulses are 2+ on the right side, and 2+ on the left side. Dorsalis pedis pulses are 1+ on the right side, and 1+ on the left side. Posterior tibial pulses are 1+ on the right side, and 1+ on the left side. 1-2/6 short systolic murmur. Pulmonary/Chest: Breath sounds normal. No stridor. No respiratory distress. He has no wheezes. He has no rales. Abdominal: Soft. He exhibits no distension. There is no tenderness. There is no guarding. Musculoskeletal: He exhibits no edema or tenderness. Neurological: He is alert and oriented to person, place, and time. Coordination normal. Skin: Skin is warm and dry. He is not diaphoretic. Psychiatric: He has a normal mood and affect. Nursing note and vitals reviewed. Vitals: Vitals: 12/01/18 0746 BP: (!) 162/82 BP Location: Left arm Patient Position: Sitting Pulse: 60 SpO2: 95% Weight: 94.2 kg (207 lb 9.6 oz) Height: 5' 7 Body mass index is 32.51 kg/m . Orders Placed This Encounter Procedures NM Myocardial Perfusion Multiple SPECT Standing Status: Future Standing Expiration Date: 12/02/2019 Scheduling Instructions: Do Not Schedule more than one Nuc Med procedure for a patient per day!!!! (Contact Nuc Med for exceptions) If it is after 12:00pm and procedure is for tomorrow, contact Nuclear Medicine for approval to schedule the procedure. Fax Order/Script to: [phone] for [place] Scheduling scripts [phone] for [facility] Scheduling scripts DO NOT USE R/O A DIAGNOSIS Order Specific Question: What type of stressing agent do you want to be used? Answer: Exercise / Treadmill Order Specific Question: Reason for Exam: Answer: chest discomfort XR Chest AP/PA and LAT Standing Status: Future Standing Expiration Date: 12/01/2019 Scheduling Instructions: OK to schedule at [facility] and all ambulatory sites Fax script to: [facility]- [phone] [facility]-[phone] [phone] [facility] - [phone] Echocardiogram complete Standing Status: Future Standing Expiration Date: 12/02/2019 Order Specific Question: Reason for exam Answer: Chest pain/tightness Order Specific Question: Reason for exam Answer: Dyspnea Order Specific Question: Reason for exam Answer: Aortic valve disease Ultrasound abdominal aorta duplex limited Standing Status: Future Standing Expiration Date: 01/31/2020 Order Specific Question: Reason for Exam Answer: epigastric pain Follow Up Ordered: Return in about 6 months (around 06/03/2019). Preston Healy MD * Rosi Manjarrez MA - 12/01/2018 7:44 AM EDT Review of Systems Constitution: Negative for diaphoresis, malaise/fatigue, weight gain and weight loss. HENT: Negative for hearing loss, nosebleeds and tinnitus. Eyes: Negative for blurred vision and visual disturbance. Cardiovascular: Negative for chest pain, claudication, cyanosis, dyspnea on exertion, irregular heartbeat, leg swelling, near-syncope, orthopnea, palpitations, paroxysmal nocturnal dyspnea and syncope. Respiratory: Negative for hemoptysis, shortness of breath and snoring. Endocrine: Negative for cold intolerance and heat intolerance. Hematologic/Lymphatic: Does not bruise/bleed easily. Skin: Negative for flushing, poor wound healing and rash. Musculoskeletal: Negative for back pain, muscle weakness and myalgias. Gastrointestinal: Positive for heartburn. Negative for abdominal pain, change in bowel habit, melena, nausea and vomiting. Genitourinary: Negative for decreased libido and hematuria. Neurological: Negative for loss of balance and numbness. Psychiatric/Behavioral: Negative for memory loss. The patient is not nervous/anxious. documented in this encounter Reason for Referral Status Reason Specialty Diagnoses / Procedures Referred By Contact Referred To Contact Pending Review Cardiology Diagnoses Prominent abdominal aortic pulse Procedures Ultrasound abdominal aorta duplex limited Preston Healy MD [address] [address] Status Reason Specialty Diagnoses / Procedures Referre d By Contact Referred To Contact Closed Radiology Diagnoses Coronary 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, unspecified vessel or lesion type Chest pain, unspecified type Procedures NM Myocardial Perfusion Multiple SPECT Preston Healy MD [address] [address] Status Reason Specialty Diagnoses / Procedures Referred By Contact Referred To Contact Authorized Specialty Services Required/Carie ent's Best Interest Physical Therapy / Rehabilitation Diagnoses DDD (degenerative disc disease), lumbar Johnson, Amanda Arevalo, EXCELLENCE MANAGER [address] [place] [address] [address] [facility] [address] [place] [phone] Status Reason Specialty Diagnoses / Procedures Referred By Contact Referred To Contact Authorized Cardiology Diagnoses Preoperative testing Procedures ECG 12 Lead Madiha Pandey MD [address] [place] [id number] Status Reason Specialty Diagnoses / Procedures Referred By Contact Referred To Contact Authorized Radiology Diagnoses Coronary 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, unspecified vessel or lesion type Chest pain, unspecified type Procedures NM Myocardial Perfusion Multiple SPECT Preston Healy MD [address] [address] Status Reason Specialty Diagnoses / Procedures Referred By Contact Referred To Contact Authorized Cardiology Diagnoses Chest pain, unspecified type S/P aortic valve replacement Procedures Echocardiogram complete Preston Healy MD [address] [address] Status Reason Specialty Diagnoses / Procedures Referred By Contact Referred To Contact New Request Cardiology Diagnoses Persistent atrial fibrillation (HCC) Procedures Echocardiogram complete Preston Healy MD [address] [address] Status Reason Specialty Diagnoses / Procedures Re ferred By Contact Referred To Contact Authorized Cardiology Diagnoses Persistent atrial fibrillation (HCC) Procedures Extended Holter Monitor (3-7 days) Preston Healy MD [address] [address] Status Reason Specialty Diagnoses / Procedures Referre d By Contact Referred To Contact Closed Cardiology Diagnoses Persistent atrial fibrillation (HCC) Procedures Extended Holter Monitor (3-7 days) Preston Healy MD [address] [address] Specialty Diagnoses / Procedures Referred By Contac t Referred To Contact Behavorist (Outpatient Social Work) Diagnoses Anxiety and depression Vivien Foreman MD [facility] [place] [address] Referral ID Status Reason Start Date Expiration Date V isits Requested Visits Authorized [id number] Authorized 03/02/2021 03/02/2022 1 1 Specialty Diagnoses / Procedures Referred By Contac t Referred To Contact Cardiology Diagnoses Pre-operative cardiovascular examination Hx of aortic valve replacement Procedures Echocardiogram complete Preston Healy MD [address] [address] Referral ID Status Reason Start Date Expiration Date V isits Requested Visits Authorized [id number] Authorized 12/22/2021 12/22/2022 1 1 Specialty Diagnoses / Procedures Referred By Contac t Referred To Contact Vascular Surgery Diagnoses PAD (peripheral artery disease) (HCC) Claudication (HCC) Preston Healy MD [address] [address] Referral ID Status Reason Start Date Expiration Date V isits Requested Visits Authorized [id number] Authorized 01/14/2022 01/14/2023 1 1 Specialty Diagnoses / Procedures Referred By Contac t Referred To Contact Cardiology Diagnoses PAD (peripheral artery disease) (HCC) Procedures Ultrasound ankle / brachial indices extremity complete Osbaldo Jim MD [address] [place] [id number] Referral ID Status Reason Start Date Expiration Date V isits Requested Visits Authorized [id number] Authorized 01/14/2022 01/14/2023 1 1 Specialty Diagnoses / Procedures Referred By Contac t Referred To Contact Cardiology Diagnoses 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, bilateral legs (HCC) PAD (peripheral artery disease) (HCC) Procedures US Doppler ankle/brachial index Sanju Bill III, DO [address] [place] [address] Referral ID Status Reason Start Date Expiration Date V isits Requested Visits Authorized [id number] Pending Review 12/09/2022 12/09/2023 1 1 Specialty Diagnoses / Procedures Referred By Contac t Referred To Contact Cardiology Diagnoses Persistent atrial fibrillation (HCC) Procedures Echocardiogram complete Preston Healy MD [address] [address] Referral ID Status Reason Start Date Expiration Date V isits Requested Visits Authorized [id number] Pending Review 03/04/2023 03/03/2024 1 1 Specialty Diagnoses / Procedures Referred By Contac t Referred To Contact Radiology Diagnoses 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, bilateral legs (HCC) PAD (peripheral artery disease) (HCC) Procedures CT Angiogram Abdominal Aorta With Lower Extremity Sanju Bill III, DO [address] [place] [address] Referral ID Status Reason Start Date Expiration Date V isits Requested Visits Authorized [id number] Authorized 06/30/2023 06/29/2024 1 1 Specialty Diagnoses / Procedures Referred By Contac t Referred To Contact Diagnoses Type 2 diabetes mellitus with retinopathy of both eyes, with long-term current use of insulin, macular edema presence unspecified, unspecified retinopathy severity (HCC) Radha Hughes, JOHN [address] [place] [address] Referral ID Status Reason Start Date Expiration Date Visits Re quested Visits Authorized [id number] Closed 1 1 Specialty Diagnoses / Procedures Referred By Contac t Referred To Contact Rehabilitation Diagnoses At high risk for falls Corina, Vivien Kartik Mounir, MD [address] [address] [address] [place] [address] Referral ID Status Reason Start Date Expiration Date V isits Requested Visits Authorized [id number] Authorized 11/29/2023 11/28/2024 1 1 Referral ID Status Reason Start Date Expiration Date V isits Requested Visits Authorized [id number] Pending Review 01/26/2024 01/25/2025 1 1 Discharge Instructions * Instructions* Faby Low RN - 12/26/2018 Even minor surgery can cause swelling and injury to the tissue and lead to pain. It is important tokeep your pain level low. This will help you heal more quickly. Your pain level is too high if you cannot walk, talk or breath normally, or if you cannot rest. You need plenty of rest so your body can heal properly. At the same time, you need some activity to keep your body systems working properly. Be sure to take your pain medicine as directed. Pain medicine is not supposed to take all your pain away, but to make you able to walk, breathe and rest comfortably. Call your doctor if your pain has not lessened within one (1) hour of taking pain medicine. Take the medicine the doctor prescribes,or any over the counter pain medicine, except aspirin products. Anesthesia: If you were asleep for your anesthetic, or received any medicine to help you relax, it may stay in your body for about twenty four(24) hours. Even if you feel normal, it can affect your judgement. Do not drive or operate any hazardous machinery for twenty four hours. Do not drink alcohol. You should not smoke, but if you do , be very careful of cigarettes and matches so that you don'tstart a fire. Smoke only in the presence of a responsible adult and do not smoke in bed , on the couch, or in a comfortable chair. After you get home: Unless you have been instructed otherwise, you may resume your normal diet, activity, and medicines. Keep your dressing on, clean and dry until you see your doctor has told you otherwise. If you had an IV ( Intravenous) The sight may be slightly sore. It should get better in thenex day or two. You may apply a warm washcloth to the dressing site if you wish. If it is getting worse, reddened or painful, it may be infected, so call the doctor. Call the surgeon if: 1. You have too much pain, persistent nausea or vomiting. 2. You have signs of infection such as fever, chills, or increased redness and swelling, or pus-like drainage from the wound. 3. You have increased bleeding or your wound opens up. 4. Your fingers or toes become bluish or very pale. IF YOU HAVE A PROBLEM OF A MEDICAL NATURE, CALL YOUR DOCTOR/EMERGENCY ROOM. [facility] EMERGENCY ROOM [phone] Make a follow-up appointment with your surgeon. Dr. Oquendo Post-op instructions 1. You will be discharged as soon as you are deemed stable by the nursing staff. 2. You will need someone to drive you home. You should not drive for 24 hours following your procedure if you had anesthesia. If you had a right leg surgery, you may not drive until permission is given by Dr. Oquendo. 3. Watch for signs and symptoms of infection. If you notice redness or swelling, increased pain or fever over 101, please call the office at 4. Please leave your dressing on until seen in the office. You may sponge bathe or wrap it in a bag, but do not get it wet. 5. If you do not already have an appointment for 1 week post operation, please call the office. documented in this encounter Chief Complaint and Reason for Visit Chief Complaint Admit Date LEFT HAND ABSCESS, SEPTIC SHOCK February 092024 4:54pm Reason for Visit Admit Date Abscess of left hand February 09, 2025 4: 54pm Acute encephalopathy February 09, 2025 4: 54pm Acute heart failure with pre served ejection fraction (HFpEF) February 09, 2025 4:54pm Acute kidney injury February 09, 2025 4:5 4pm Atrial fibrillation February 09, 2025 4:5 4pm Blood in stool February 09, 2025 4:5 4pm BPH (benign prostatic hyperplasia) Augus t 2024 4:54pm Cellulitis of left hand February 09, 2025 4:54pm Coronary artery disease February 09, 2025 4:54pm Debility February 09, 2025 4:5 4pm Demand ischemia February 09, 2025 4:5 4pm Diabetic ketoacidosis February 09, 2025 4 :54pm Elevated troponin February 09, 2025 4:5 4pm Esophageal candidiasis February 09, 2025 4:54pm Essential (primary) hypertension February 09, 2025 4:54pm History of subdural hematoma February 09, 2025 4:54pm Mood disorder February 09, 2025 4:5 4pm Septic shock February 09, 2025 4:5 4pm Streptococcal bacteremia February 09 4:54pm TIA (transient ischemic attack) February 092024 4:54pm Transaminitis February 09, 2025 4:5 4pm Type 2 diabetes mellitus with hyperglyce lurdes February 09, 2025 4:54pm Urinary retention February 09, 2025 4:5 4pm Anemia February 18, 2025 11 :57am Blood in stool February 18, 2025 11 :57am Additional Source Comments Assessment & Plan Note - Preston Healy MD - 11/04/2017 8:19 AM EDTAssessment & Plan Note - Preston Healy MD - 11/04/2017 8:19 AM EDT Miscellaneous Notes (unrecog nized section and content) Associated Problem(s): S/P CABG (coronary artery bypass graft) Denies any chest pain. Some mild chronic dyspnea on exertion unchanged. No significant pedal edema. Pulse regular. Check echocardiograms been over 2 years. Encouraged him to check his blood pressure at home. No change in cardiac medications. Diabetes follows with endocrinology. Complains of erectile dysfunction. Not taking nitroglycerin. Prescribed Viagra 50 mg as needed instructed him that cannot be used with any nitroglycerin products. He understands that. Associated Problem(s): S/P aortic valve replacement Soft short systolic murmur. Pulse regular check echocardiogram.in this encounter Associated Problem(s): S/P CABG (coronary artery bypass graft) Has a sharp momentary atypical left-sided chest pain from time to time. Was getting over bronchitis which she says is gotten over no coughing quit smoking years ago. She has been handling stress with the of his a few months ago fairly well. No angina pectoris no palpitation tachycardia cardiac exam unremarkable. Very soft short systolic murmur. [facility] Plan no changes see back in 6 months. It continues to have sharp atypical chest discomfort next couple weeks give us a call would set him up for a chest x-ray. See no need for any stress testing.in this encounter Associated Problem(s): S/P CABG (coronary artery bypass graft) Nuclear stress test negative for any ischemia December 2018 persistent inferior defect with reduced ejection fraction however echo showed normal ejection fraction and wall motion. Except for postoperative septal wall motion changes. Patient denies any further chest discomfort or shortness of breath he is feeling well. Continued medical therapy See back in 6 months. Laboratory reviewed continues on low-dose of diuretic every other day with potassium. Blood pressure 111/63 pulse 69. Tissue aortic valve unremarkable on echocardiogram. No changes today. documented in this encounter Last ov 02/01/20 Message sent to scheduling for ov documented in this encounter Addended by: DAYNA JOHNSON. on: 07/28/2020 07:55 AM Modules accepted: Orders Previous prescription set to print. documented in this encounter Associated Problem(s): S/P CABG (coronary artery bypass graft) Vitals: 12/01/18 0746 BP: (!) 162/82 BP Location: Left arm Patient Position: Sitting Pulse: 60 SpO2: 95% Weight: 94.2 kg (207 lb 9.6 oz) Height: 5' 7 Associated Problem(s): Chest pain Concerning for possible angina pectoris. We will set up nuclear stress test Check echocardiogram some mild dyspnea on exertion check aortic root although no upper chest or back pain. Check chest x-ray Check ultrasound abdominal aorta difficult to palpate. No abdominal discomfort. On palpation Recommend he follow-up with PCP regarding further possible testing such as CT scan of the abdomen. Tells me he had a colonoscopy last 5 years. Increase lisinopril 10 mg daily with elevated blood pressure currently only on 2.5 mg daily. May need to be further increase moving forward. Further recommendations pending results of the testing. documented in this encounter Patient currently traveling in [place] and needs a refills on his Metoprolol succinate 25 mg every day #30/0. RX called to [facility] in [facility] Last OV 02/01/20. Scheduling to contact patient for appointment. documented in this encounter (unrecognized sect ion and content) No Status Records FoundNo Status Records FoundNo Status Records FoundNo Status Records FoundNo Status Records FoundNo Status Records FoundNo Status Records FoundNo Status Records FoundNo Status Records FoundNo Status Records Found INFORMATION SOURCE (unrecogn ized section and content) DATE CREATED AUTHOR 12/28/2017 [facility] DATE CREATED AUTHOR AUTHOR'S ORGANIZ ATION 10/25/2018 [facility] DATE CREATED AUTHOR AUTHOR'S ORGANIZ ATION 02/19/2019 [facility] DATE CREATED AUTHOR AUTHOR'S ORGANIZ ATION 02/21/2019 [facility] DATE CREATED AUTHOR AUTHOR'S ORGANIZ ATION 03/10/2019 [facility] DATE CREATED AUTHOR AUTHOR'S ORGANIZ ATION 05/08/2020 [facility] DATE CREATED AUTHOR AUTHOR'S ORGANIZ ATION 01/29/2025 [facility] DATE CREATED AUTHOR AUTHOR'S ORGANIZ ATION 02/19/2025 [facility] DATE CREATED AUTHOR AUTHOR'S ORGANIZ ATION 02/21/[address] [facility] DATE CREATED AUTHOR AUTHOR'S ORGANIZ ATION 02/23/2025 [facility] Reason for Visit (unrecogniz ed section and content) Reason Comments Physical Therapy Specialty Diagnoses / Procedures Referred By Vinod mercado Referred To Contact Rehabilitation Diagnoses At high risk for falls CorinaVivien cuba MD [address] [address] [address] [place] [address] Referral ID Status Reason Start Date Expiration Date V isits Requested Visits Authorized [id number] Authorized 11/29/2023 11/28/2024 9 199 Reason Comments Diabetes Mellitus Status Reason Specialty Diagnoses / Procedures Referred By Contact Referred To Contact Pending Review Cardiology Diagnoses Prominent abdominal aortic pulse Procedures Ultrasound abdominal aorta duplex limited Preston Healy MD [address] [address] Status Reason Specialty Diagnoses / Procedures Referre d By Contact Referred To Contact Closed Cardiology Diagnoses Chest pain, unspecified type S/P aortic valve replacement Procedures Echocardiogram complete w contrast Echocardiogram complete Preston Healy MD [address] [address] Status Reason Specialty Diagnoses / Procedures Referre d By Contact Referred To Contact Closed Radiology Diagnoses Coronary 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, unspecified vessel or lesion type Chest pain, unspecified type Procedures NM Myocardial Perfusion Multiple SPECT Preston Healy MD [address] [address] Reason Comments Pain Reason Comments Status Reason Specialty Diagnoses / Procedures Referre d By Contact Referred To Contact Diagnoses De Quervain's disease (radial styloid tenosynovitis) De Quervain's disease (radial styloid tenosynovitis) [M65.4] Procedures TENDON RELEASE DE QUERVAINS RIGHT Reason Comments Follow-up 6 mo ov w/ no compla ints today Medication Refill pt would like RX to [facility] due to leaving tomorrow for [facility] Status Reason Specialty Diagnoses / Procedures Referred By Contact Referred To Contact Authorized Specialty Services Required/Carie ent's Best Interest Physical Therapy / Rehabilitation Diagnoses DDD (degenerative disc disease), lumbar Amanda Johnson, EXCELLENCE MANAGER [address] [place] [phone] [address] [place] [address] [place] [address] [place] [address] Reason Comments Pain Reason Onset Date Comments Medication Refill 09/08/2020 Reason Onset Date Comments Medication Refill 07/26/2020 Reason Comments Follow-up c/o indigestion- lik e pains Reason Onset Date Comments Medication Refill 10/15/2020 Reason Comments Establish Care spot on arm Reason Onset Date Comments Medication Refill 12/27/2020 Reason Comments Follow-up 2 WEEK FOR BP AND BA RADHAMES ISSUES Reason Comments Annual Exam no complaints. Status Reason Specialty Diagnoses / Procedures Referre d By Contact Referred To Contact Closed Cardiology Diagnoses Persistent atrial fibrillation (HCC) Procedures Extended Holter Monitor (3-7 days) Preston Healy MD [address] [address] Reason Onset Date Comments Medication Refill 01/26/2021 Reason Comments Follow-up 6 wk f/u- A Fib Reason Comments Medicare Wellness Visit Reason Onset Date Comments Care Coordination-[facility] 03/03/2021 Reason Comments Nail Care Reason Onset Date Comments Medication Refill 04/27/2021 Reason Onset Date Comments Follow-up 4 month f/u- Fee ling a little better but still struggling Not sure when next counseling appointment Fall Risk Screening 06/12/2021 Reason Comments TELEHEATH PH. [phone] -DE NIES CP/ SOB/ DIZZINESS/ PALPITATIONS/ FATIGUE/ LEG SWELLING Reason Onset Date Comments Medication Refill 10/22/2021 Reason Onset Date Comments Medication Refill 12/22/2021 Reason Comments Nail Care Patient is here for diabetic nail care. Blood sugar was 105 this morning. He will be having heart cath on Tuesday for a stent. Reason Onset Date Comments Medication Refill 01/12/2022 Reason Comments Follow-up 2 mo f/u had testing done getting results. Reason Onset Date Comments Medication Refill 03/04/2022 Reason Comments Evaluate Specialty Diagnoses / Procedures Referred By Contac t Referred To Contact Cardiology Diagnoses PAD (peripheral artery disease) (HCC) Claudication (HCC) Preston Healy MD [address] [address] [facility] [address] [place] [address] Referral ID Status Reason Start Date Expiration Date Visits Re quested Visits Authorized [id number] Closed 01/14/2022 01/14/2023 1 1 Reason Comments Medication Refill Reason Comments Nail Care Patient is her for d iabetic nail care. States he went to Dr Bill and was told he needed diabetic shoes. Blood sugar was 92 this morning. Last A1C was 7.8. Reason Comments Follow-up Yearly -pt states he has an indentation from his sock and wants to know if that's normal Reason Onset Date Comments Medicare Wellness Visit Fall Risk Screening 06/14/2022 Gap Closure (Health Maintenance) Urine Microalbumin due on 12/17/2021A1C due on 05/20/2022 Reason Onset Date Comments Medication Refill 06/25/2022 Reason Comments Nail Care Diabetic nail care. Pt last a1c 7.8 four months ago. Reason Comments Follow-up 4 week f/u Reason Comments Follow-up Reason Onset Date Comments Medication Refill 12/10/2022 Reason Comments Nail Care Diabetic nail care. Blood sugar was 141 this morning. Reason Comments Follow-up 6 month f/u Gap Closure (Health Maintenance) There a re no preventive care reminders to display for this patient. Reason Onset Date Comments Medication Refill 02/09/2023 Reason Comments Follow-up 6 mo - occasional cp left sided states its been going on for years, asking ab keto diet Reason Comments Nail Care Diabetic nail care. Blood sugar was 190 this morning. Reason Comments Diabetes Mellitus Gap Closure (Health Maintenance) Diabeti c Foot Exam Never doneDiabetic Eye Exam due on 04/05/2023 Reason Onset Date Comments Medication Refill 06/24/2023 Reason Comments Follow-up Reason Onset Date Comments Medication Refill 08/06/2023 Reason Onset Date Comments Medication Refill 08/25/2023 Reason Comments Follow-up 6 mo -no complaints Reason Comments Nail Care Diabetic nail care. Last A1C 9.2 Reason Comments Diabetes Mellitus Gap Closure (Health Maintenance) Diabeti c Eye Exam due on 04/05/2023Urine Microalbumin due on 11/30/2023 Specialty Diagnoses / Procedures Referred By Vinod mercado Referred To Contact Rehabilitation Diagnoses At high risk for falls Vivien Foreman MD [address] [address] [address] [place] [address] Reason Onset Date Comments Medication Refill 02/04/2024 Reason Onset Date Comments Medication Refill 03/16/2024 Reason Onset Date Comments Medication Refill 05/09/2024 Reason Comments Diabetes Mellitus Diabetic Eye Exam du e on 04/05/2023 Reason Comments Nail Care Diabetic nail care. Last A1C was 7.1 on 05/11/2024. Reason Comments Follow-up No Flu Shot-6 month f/u Reason Onset Date Comments Medication Refill 08/03/2024 Reason Onset Date Comments Medication Refill 09/07/2024 Reason Comments Follow-up Yearly - no complain ts Reason Onset Date Comments Medication Refill 10/24/2024 Reason Comments Hand Pain Left hand pain and b ump x 6 months Reason Comments Diabetes Mellitus There are no prevent aleksander care reminders to display for this patient. Reason Comments Other Specialty Diagnoses / Procedures Referred By Vinod mercado Referred To Contact Sports Medicine Diagnoses Ganglion cyst Babatunde, Liliya Oviedo, JOHN [address] [address] Phone: tel: fax: Amanda Johnson, EXCELLENCE MANAGER [address] [place] [phone] Phone: tel: fax: Referral ID Status Reason Start Date Expiration Date V isits Requested Visits Authorized [id number] Closed Specialty Services Required/Carie ent's Best Interest 10/30/2024 10/30/2025 1 1 Reason Comments Nail Care diab nail care/A1C 8 .3 on 11/09/24. Reason Onset Date Comments Medication Refill 12/14/2024 Reason Comments Pain Wound Check Reason Comments Tachycardia Specialty Diagnoses / Procedures Referred By Contac t Referred To Contact Diagnoses Shortness of breath Shock (HCC) Hyperglycemia Elevated troponin Septic shock (HCC) Referral ID Status Reason Start Date Expiration Date Visits Re quested Visits Authorized [id number] 1 1 Ernesto Gayle RN - 12/12/2018 11:18 AM EDT Nursing Notes (unrecognized section and content) Resting ECG RBBB. Tolerated exercise well, denies CP with exertion. documented in this encounter Jenaro Oquendo MD - 12/26/2018 1:43 PM ARLETHTLeJenaro espinoza MD - 12/15/2018 10:15 AM EDT H&P Notes (unrecognized sect ion and content) INTERVAL HISTORY AND PHYSICAL Patient Name: Andrew Arnold Admit Date: [id number] MR #: [id number] : 1945 The H&P has been reviewed and the patient has been examined. I concur with the findings of the H&P. There are no significant changes. It is appropriate to proceed with the planned procedure. Jenaro Oquendo MD 12/26/2018 1:43 PM Subjective: Patient ID: Andrew Arnold is a 73 y.o. male. HPI: Patient is a 73-year-old male with right hand and thumb pain he was diagnosed in [place] with de Quervain's tenosynovitis. He had a shot and a brace with minimal relief for a long. He is interested in a more permanent solution. Review of Systems: Review of Systems Constitutional: Negative for activity change, appetite change, chills, fatigue and fever. HENT: Negative for congestion and trouble swallowing. Respiratory: Negative for chest tightness and shortness of breath. Cardiovascular: Negative for chest pain and palpitations. Gastrointestinal: Negative for constipation and diarrhea. Genitourinary: Negative for difficulty urinating and hematuria. Musculoskeletal: Negative for arthralgias, back pain, gait problem, joint swelling, myalgias, neck pain and neck stiffness. Neurological: Negative for light-headedness and headaches. Hematological: Negative for adenopathy. Does not bruise/bleed easily. Patient Active Problem List Diagnosis SNOMED CT(R) CAD (coronary artery disease) CORONARY ARTERIOSCLEROSIS Hypertension HYPERTENSIVE DISORDER S/P CABG (coronary artery bypass graft) HISTORY OF CORONARY ARTERY BYPASS GRAFTING S/P aortic valve replacement HISTORY OF AORTIC VALVE REPLACEMENT Postoperative atrial fibrillation (HCC) ATRIAL FIBRILLATION Fractured sternal wires (HCC) COMPLICATION AFTER WIRING OF STERNUM Diabetes mellitus, type 2 (HCC) TYPE 2 DIABETES MELLITUS Hypercholesterolemia HYPERCHOLESTEROLEMIA Delayed wound healing IMPAIRED WOUND HEALING Iron deficiency anemia IRON DEFICIENCY ANEMIA RBBB RIGHT BUNDLE BRANCH BLOCK Chest pain CHEST PAIN Prominent abdominal aortic pulse AORTIC PULSATION IN ABDOMEN Wrist pain, chronic, right PAIN IN WRIST De Quervain's disease (radial styloid tenosynovitis) RADIAL STYLOID TENOSYNOVITIS Objective: Physical Exam The patient is a 73-year-old male with deQuervain's tenosynovitis of his right thumb. I reviewed medications, allergies, and history. I reviewed his previous record and x-rays. I reviewed his OARRS and NARxCHECK report. PHYSICAL EXAMINATION General: He is well-developed, well-nourished, in no acute distress, alert and oriented x3. Cranial nerves 2 through 12 intact. Gait: Normal. Psychiatric: Patient's mood, affect, and behavior are appropriate for age, diagnosis, and office visit. Head: Normocephalic. Neck: Supple with good range of motion. Eyes: Extraocular exam within normal limits. Skin: Warm, clear, and dry without trophic changes noted. Vascular: Pulses 2+ and symmetrical in both upper extremities. Neurologic: Patient has normal sensation to light touch and pressure in both upper extremities. Extremities: Patient has a positive Jeffrey test. He has some mild swelling over the first dorsal compartment. He is tender over the first dorsal compartment tendons. We discussed options of management. He wishes to proceed with surgical intervention understanding the risks, complications, and potential benefits. Imaging Studies: Nm Myocardial Perfusion Multiple Spect Result Date: 12/12/2018 Nuclear Report Patient: CLAYTON Mccollum Med Rec#: [id number] (Age): 1945(73y) Height: Study Date: 12/12/2018 Weight: Room#: BSA: Type: Outpatient Loc: Sex: M Indications: -Diagnosis of CAD - Checklists: -Patient verbally identified self -Consent signed and placed in chart -Procedure verified and explained to patient -Medication Reconciliation completed. -Discharge instructions given Nuclear Cardiology Conclusion: Abnormal exercise myocardial perfusion with Tc-99m tetrofosmin imaging. No convincing evidence of inducible ischemia identified. Overall intermediate-risk study based on SCAI criteria (1-3% predicted annual cardiac mortality). Moderate to large inferior, inferolateral and apical infarcts with related LV dysfunction. Moderate LV dilation. Global left ventricular systolic function was moderately reduced, with an EF of 40%. Stress ECG Conclusion: Non-diagnostic exercise stress ECG Non-diagnostic changes secondary to resting ST-T abnormalities. HR Response to stress: normal BP response to stress: normal The patient experienced no chest pain. The test was terminated due to fatigue. An adequate level of stress was achieved. Exercise Protocol: A Thurman treadmill score of 7 was achieved. Total Exercise Time The patient exercised for a total of 07:00 min using the Standard Dain exercise protocol, achieving stage 3 and a max METs of 8.3. A Thurman treadmill score of 7 was achieved. Exercise functional capacity was good. Resting ECG RBBB. Tolerated exercise well, denies CP with exertion. Baseline ECG: Normal sinus rhythm. RBBB. Q-waves consistent with prior myocardial infarction. Non-specific ST-T wave changes. Non-specific T wave changes. Stress ECG : ECG was non-diagnostic, secondary to abnormal baseline ECG. Hemodynamics REST STRESS RECOVERY SBP 175 mmHg 205 mmHg 205 mmHg DBP 77 mmHg 90 mmHg 90 mmHg HR 60 bpm 146 bpm 85 bpm %MPHR 100 % Imaging Protocol: This was a gated SPECT myocardial perfusion imaging study. A one day rest-stress imaging protocol was followed using Tc-99m tetrofosmin (Myoview) injected intravenously. For the rest portion of the study, 8.9 mCi of the radiopharmaceutical was administered at 12/12/2018 08:10:00. Rest imaging was performed at 09:10:00. For the stress portion of the study, 26.9 mCi was administered at 12/12/2018 09:48:00. Stress imaging was performed at 10:00:00. Perfusion Interpretation: The left ventricular cavity was moderately enlarged under post stress conditions. The left ventricular cavity was moderately enlarged under rest conditions. TID Ratio 1. There was a small, fixed defect in the apical anterior, apex segment(s). The extent of this perfusion defect was mild. There was a small, partially reversible defect in the basal inferolateral, apical lateral segment(s). The extent of this perfusion defect was mild to moderate. There was a medium, fixed defect in the basal inferior, mid inferior, apical inferior segment(s). The extent of this perfusion defect was mild to moderate. Wall Motion Interpretation: The patient's calculated post stress LVEF was 40%. Gated imaging under post-stress conditions demonstrated moderate hypokinesis of the basal anteroseptal, basal inferoseptal, basal inferior, mid anteroseptal, mid inferoseptal, mid inferior, apical septal, apical inferior segment(s); severe hypokinesis of the apical anterior, apex segment(s). Nuclear Doctor Interpreted Study and Electronically signed at 12/12/2018 15:06:04 by: Ernesto Gibbs MD, RV Assessment: SNOMED CT(R) 1. Wrist pain, chronic, right PAIN IN WRIST 2. De Quervain's disease (radial styloid tenosynovitis) RADIAL STYLOID TENOSYNOVITIS Plan: 1. Orders Placed This Encounter Procedures XR Wrist Right 3+ Views (Standard) No follow-ups on file. documented in this encounter Care Teams (unrecognized sec tion and content) Sheet Metal Duct Installer Relationship Specialty Start Date End Date Vivien Foreman MD [address] [place] [address] PCP - General Family Medicine 12/16/20 Sheet Metal Duct Installer Relationship Specialty Start Date End Date Vivien Foreman MD [address] [address] PCP - General Family Medicine 12/16/20 Sheet Metal Duct Installer Relationship Specialty Start Date End Date Vivien Foreman MD [address] [address] PCP - General Family Medicine 12/16/20 Sheet Metal Duct Installer Relationship Specialty Start Date End Date Vivien Foreman MD [address] [address] PCP - General Family Medicine 12/16/20 Sheet Metal Duct Installer Relationship Specialty Start Date End Date Vivien Foreman MD [address] [place] [id number] PCP - General Family Medicine 12/16/20 Sheet Metal Duct Installer Relationship Specialty Start Date End Date Vivien Foreman MD [address] [address] PCP - General Family Medicine 12/16/20 Vivien Foreman MD [address] [address] PCP - CMS Attributed Provider 10/09/20 Sheet Metal Duct Installer Relationship Specialty Start Date End Date Vivien Foreman MD [address] [address] PCP - General Family Medicine 12/16/20 Vivien Foreman MD [address] [address] PCP - CMS Attributed Provider 10/09/20 Sheet Metal Duct Installer Relationship Specialty Start Date End Date Vivien Foreman MD [address] [address] PCP - General Family Medicine 12/16/20 Vivien Foreman MD [address] [address] PCP - CMS Attributed Provider 10/09/20 Sheet Metal Duct Installer Relationship Specialty Start Date End Date Vivien Foreman MD [address] [address] PCP - General Family Medicine 12/16/20 Vivien Foreman MD [address] [address] PCP - CMS Attributed Provider 10/09/20 Sheet Metal Duct Installer Relationship Specialty Start Date End Date Vivien Foreman MD [address] [address] PCP - General Family Medicine 12/16/20 Sheet Metal Duct Installer Relationship Specialty Start Date End Date Vivien Foreman MD [address] [address] PCP - General Family Medicine 12/16/20 Sheet Metal Duct Installer Relationship Specialty Start Date End Date Vivien Foreman MD [address] [address] PCP - General Family Medicine 12/16/20 Sheet Metal Duct Installer Relationship Specialty Start Date End Date Vivien Foreman MD [address] [address] PCP - General Family Medicine 12/16/20 Sheet Metal Duct Installer Relationship Specialty Start Date End Date Vivien Foreman MD [address] [place] [id number] PCP - General Family Medicine 12/16/20 Sheet Metal Duct Installer Relationship Specialty Start Date End Date Vivien Foreman MD [address] [place] [id number] PCP - General Family Medicine 12/16/20 Sheet Metal Duct Installer Relationship Specialty Start Date End Date Vivien Foreman MD [address] [place] [id number] PCP - General Family Medicine 12/16/20 Sheet Metal Duct Installer Relationship Specialty Start Date End Date Vivien Foreman MD [address] [place] [id number] PCP - General Family Medicine 12/16/20 Sheet Metal Duct Installer Relationship Specialty Start Date End Date Vivien Foreman MD [address] [place] [id number] PCP - General Family Medicine 12/16/20 Sheet Metal Duct Installer Relationship Specialty Start Date End Date Vivien Foreman MD [address] [place] [id number] PCP - General Family Medicine 12/16/20 Sheet Metal Duct Installer Relationship Specialty Start Date End Date Vivien Foreman MD [address] [address] PCP - General Family Medicine 12/16/20 Radha Hughes CNP [address] [place] [id number] Nurse Practitioner Nurse Practitioner 02/22/22 Preston Healy MD [address] [place] [address] Consulting Physician Cardiovascular Disease 02/22/22 Adilson Stone MD [address] [place] [address] Cardiology 02/22/22 Hola Arroyo Jr., DPM [address] [place] [address] Podiatry 02/22/22 Sheet Metal Duct Installer Relationship Specialty Start Date End Date Vivien Foreman MD [address] [address] PCP - General Family Medicine 12/16/20 Radha Hughes, JOHN [address] [address] Nurse Practitioner Nurse Practitioner 02/22/22 Preston Healy MD [address] [place] [address] Consulting Physician Cardiovascular Disease 02/22/22 Adilson Stone MD [address] [place] [address] Cardiology 02/22/22 Hola Arroyo Jr., DPOlegario [address] [place] [address] Podiatry 02/22/22 Sheet Metal Duct Installer Relationship Specialty Start Date End Date Vivien Foreman MD [address] [address] PCP - General Family Medicine 12/16/20 Radha Hughes, EXCELLENCE MANAGER [address] [address] Nurse Practitioner Nurse Practitioner 02/22/22 Preston Healy MD [address] [place] [address] Consulting Physician Cardiovascular Disease 02/22/22 Adilson Stone MD [address] [place] [address] Cardiology 02/22/22 Hola Arroyo Jr., DPOlegario [address] [place] [address] Podiatry 02/22/22 Sanju Bill III, DO [address] [place] [address] Consulting Physician Vascular Surgery 03/17/22 Sheet Metal Duct Installer Relationship Specialty Start Date End Date Vivien Foreman MD [address] [address] PCP - General Family Medicine 12/16/20 Radha Hughes, EXCELLENCE MANAGER [address] [address] Nurse Practitioner Nurse Practitioner 02/22/22 Preston Healy MD [address] [place] [address] Consulting Physician Cardiovascular Disease 02/22/22 Adilson Stone MD [address] [place] [address] Cardiology 02/22/22 Hola Arroyo Jr., DPOlegario [address] [place] [address] Podiatry 02/22/22 Sanju Bill III, DO [address] [place] [address] Consulting Physician Vascular Surgery 03/17/22 Sheet Metal Duct Installer Relationship Specialty Start Date End Date Vivien Foreman MD [address] [address] PCP - General Family Medicine 12/16/20 Radha Hughes, EXCELLENCE MANAGER [address] [address] Nurse Practitioner Nurse Practitioner 02/22/22 Preston Healy MD [address] [place] [address] Consulting Physician Cardiovascular Disease 02/22/22 Adilson Stone MD [address] [place] [address] Cardiology 02/22/22 Hola Arroyo Jr., DPM [address] [place] [address] Podiatry 02/22/22 Sanju Bill III, DO [address] [place] [address] Consulting Physician Vascular Surgery 03/17/22 Sheet Metal Duct Installer Relationship Specialty Start Date End Date Vivien Foreman MD [address] [address] PCP - General Family Medicine 12/16/20 Radha Hughes, EXCELLENCE MANAGER [address] [address] Nurse Practitioner Nurse Practitioner 02/22/22 Preston Healy MD [address] [place] [address] Consulting Physician Cardiovascular Disease 02/22/22 Adilson Stone MD [address] [place] [address] Cardiology 02/22/22 Hola Arroyo Jr., DPM [address] [place] [address] Podiatry 02/22/22 Sanju Bill III, DO [address] [place] [address] Consulting Physician Vascular Surgery 03/17/22 Sheet Metal Duct Installer Relationship Specialty Start Date End Date Vivien Foreman MD [address] [address] PCP - General Family Medicine 12/16/20 Radha Hughes CNP [address] [address] Nurse Practitioner Nurse Practitioner 02/22/22 Preston Healy MD [address] [place] [address] Consulting Physician Cardiovascular Disease 02/22/22 Adilson Stone MD [address] [place] [address] Cardiology 02/22/22 Hola Arroyo Jr., DPM [address] [place] [address] Podiatry 02/22/22 Sanju Bill III, DO [address] [place] [address] Consulting Physician Vascular Surgery 03/17/22 Sheet Metal Duct Installer Relationship Specialty Start Date End Date Vivien Foreman MD [address] [address] PCP - General Family Medicine 12/16/20 Radha Hughes CNP [address] [address] Nurse Practitioner Nurse Practitioner 02/22/22 Preston Healy MD [address] [place] [address] Consulting Physician Cardiovascular Disease 02/22/22 Adilson Stone MD [address] [place] [address] Cardiology 02/22/22 Hola Arroyo Jr., DPM [address] [place] [address] Podiatry 02/22/22 Sanju Bill III, DO [address] [place] [address] Consulting Physician Vascular Surgery 03/17/22 Sheet Metal Duct Installer Relationship Specialty Start Date End Date Vivien Foreman MD [address] [address] PCP - General Family Medicine 12/16/20 Vivien Foreman MD [address] [address] PCP - [facility] Attributed Provider 01/08/22 Radha Hughes EXCELLENCE MANAGER [address] [address] Nurse Practitioner Nurse Practitioner 02/22/22 Preston Healy MD [address] [place] [address] Consulting Physician Cardiovascular Disease 02/22/22 Adilson Stone MD [address] [place] [id number] Cardiology 02/22/22 Hola Arroyo Jr., DPM [address] [place] [address] Podiatry 02/22/22 Sanju Bill III, DO [address] [place] [phone] Consulting Physician Vascular Surgery 03/17/22 Sheet Metal Duct Installer Relationship Specialty Start Date End Date Vivien Foreman MD [address] [address] PCP - General Family Medicine 12/16/20 Vivien Foreman MD [address] [address] PCP - [facility] Attributed Provider 01/08/22 Radha Hughes, EXCELLENCE MANAGER [address] [address] Nurse Practitioner Nurse Practitioner 02/22/22 Preston Healy MD [address] [place] [address] Consulting Physician Cardiovascular Disease 02/22/22 Adilson Stone MD [address] [place] [address] Cardiology 02/22/22 Hola Arroyo Jr., DPM [address] [place] [address] Podiatry 02/22/22 Sanju Bill III, [address] [place] [address] Consulting Physician Vascular Surgery 03/17/22 Sheet Metal Duct Installer Relationship Specialty Start Date End Date Vivien Foreman MD [address] [address] PCP - General Family Medicine 12/16/20 Vivien Foreman MD [address] [address] PCP - CMS Attributed Provider 10/09/20 07/10/21 Radha Hugehs, JOHN [address] [place] [address] PCP - CMS Attributed Provider 10/09/21 01/07/22 Vivien Foreman MD [address] [address] PCP - CMS Attributed Provider 01/08/22 Hayley Gimenez, claims assistantManager Mba 12/21/21 12/21/21 Radha Hughes CNP [address] [address] Nurse Practitioner Nurse Practitioner 02/22/22 Preston Healy MD [address] [place] [address] Consulting Physician Cardiovascular Disease 02/22/22 Adilson Stone MD [address] [place] [address] Cardiology 02/22/22 Hola Arroyo Jr., DPM [address] [place] [address] Podiatry 02/22/22 Sanju Bill III, [address] [place] [phone] Consulting Physician Vascular Surgery 03/17/22 Sheet Metal Duct Installer Relationship Specialty Start Date End Date Dieter Bernal MD [address] [place] [id number] PCP - General Family Medicine 09/01/15 12/15/20 Vivien Foreman MD [address] [place] [phone] PCP - General Family Medicine 12/16/20 Vivien Foreman MD [address] [address] PCP - CMS Attributed Provider 10/09/20 07/10/21 Radha Hughes CNP [address] [place] [address] PCP - CMS Attributed Provider 10/09/21 01/07/22 Vivien Foreman MD [address] [address] PCP - CMS Attributed Provider 01/08/22 Hayley Gimenez, claims assistantManager Mba 12/21/21 12/21/21 Radha Hughes CNP [facility] [place] [phone] Nurse Practitioner Nurse Practitioner 02/22/22 Preston Healy MD [address] [place] [address] Consulting Physician Cardiovascular Disease 02/22/22 Adilson Stone MD [address] [place] [address] Cardiology 02/22/22 Hola Arroyo Jr., DPM [facility] [place] [id number] Podiatry 02/22/22 Sanju Bill III, DO [address] [place] [address] Consulting Physician Vascular Surgery 03/17/22 Sheet Metal Duct Installer Relationship Specialty Start Date End Date Dieter Bernal MD [address] [place] [id number] PCP - General Family Medicine 09/01/15 12/15/20 Vivien Foreman MD [address] [address] PCP - General Family Medicine 12/16/20 Vivien Foreman MD [address] [address] PCP - CMS Attributed Provider 10/09/20 07/10/21 Radha Hughes CNP [address] [place] [address] PCP - CMS Attributed Provider 10/09/21 01/07/22 Vivien Foreman MD [address] [address] PCP - CMS Attributed Provider 01/08/22 Hayley Gimenez, claims assistantManager Mba 12/21/21 12/21/21 Radha Hughes, JOHN [address] [address] Nurse Practitioner Nurse Practitioner 02/22/22 Preston Healy MD [address] [place] [address] Consulting Physician Cardiovascular Disease 02/22/22 Adilson Stone MD [address] [place] [address] Cardiology 02/22/22 Hola Arroyo Jr., DPM [address] [place] [id number] Podiatry 02/22/22 Sanju Bill III, [address] [place] [phone] Consulting Physician Vascular Surgery 03/17/22 Sheet Metal Duct Installer Relationship Specialty Start Date End Date Vivien Foreman MD [address] [address] PCP - General Family Medicine 12/16/20 Vivien Foreman MD [address] [address] PCP - CMS Attributed Provider 01/08/22 Radha Hughes, JOHN [address] [address] Nurse Practitioner Nurse Practitioner 02/22/22 Preston Healy MD [address] [place] [address] Consulting Physician Cardiovascular Disease 02/22/22 Adilson Stone MD [address] [place] [address] Cardiology 02/22/22 Hola Arroyo Jr., SAMIR [address] [place] [address] Podiatry 02/22/22 Sanju Bill III, DO [address] [place] [address] Consulting Physician Vascular Surgery 03/17/22 Sheet Metal Duct Installer Relationship Specialty Start Date End Date Vivien Foreman MD [facility] [address] [address] PCP - General Family Medicine 12/16/20 Radha Hughes CNP [facility] [address] [address] Nurse Practitioner Nurse Practitioner 02/22/22 Preston Healy MD [address] [place] [address] Consulting Physician Cardiovascular Disease 02/22/22 Adilson Stone MD [address] [place] [address] Cardiology 02/22/22 Hola Arroyo Jr., DPM [address] [place] [address] Podiatry 02/22/22 Sanju Bill III, DO [address] [place] [address] Consulting Physician Vascular Surgery 03/17/22 Sheet Metal Duct Installer Relationship Specialty Start Date End Date Vivien Foreman MD [address] [address] PCP - General Family Medicine 12/16/20 Radha Hughes CNP [facility] [address] [address] Nurse Practitioner Nurse Practitioner 02/22/22 Preston Healy MD [address] [place] [address] Consulting Physician Cardiovascular Disease 02/22/22 Adilson Stone MD [address] [place] [address] Cardiology 02/22/22 Hola Arroyo Jr., DPM [address] [place] [address] Podiatry 02/22/22 Sanju Bill III, DO [address] [place] [address] Consulting Physician Vascular Surgery 03/17/22 Sheet Metal Duct Installer Relationship Specialty Start Date End Date Vivien Foreman MD [facility] [address] [address] PCP - General Family Medicine 12/16/20 Radha Hughes CNP [facility] [address] [address] Nurse Practitioner Nurse Practitioner 02/22/22 Preston Healy MD [address] [facility] [place] [address] Consulting Physician Cardiovascular Disease 02/22/22 Adilson Stone MD [address] [facility] [place] [address] Cardiology 02/22/22 Hola Arroyo Jr., [place] [address] Podiatry 02/22/22 Sanju Bill III, DO [address] [place] [address] Consulting Physician Vascular Surgery 03/17/22 Sheet Metal Duct Installer Relationship Specialty Start Date End Date Vivien Foreman MD [facility] [address] [address] PCP - General Family Medicine 12/16/20 Radha Hughes CNP [facility] [address] [address] Nurse Practitioner Nurse Practitioner 02/22/22 Preston Healy MD [address] [facility] [place] [address] Consulting Physician Cardiovascular Disease 02/22/22 Adilson Stone MD [address] [place] [address] Cardiology 02/22/22 Hola Arroyo Jr., DPM [address] [place] [address] Podiatry 02/22/22 Sanju Bill III, [address] [place] [address] Consulting Physician Vascular Surgery 03/17/22 Sheet Metal Duct Installer Relationship Specialty Start Date End Date Vivien Foreman MD [address] [address] PCP - General Family Medicine 12/16/20 Radha Hughes, JOHN [facility] [address] [address] Nurse Practitioner Nurse Practitioner 02/22/22 Preston Healy MD [address] [place] [address] Consulting Physician Cardiovascular Disease 02/22/22 Adilson Stone MD [address] [place] [address] Cardiology 02/22/22 Hola Arroyo Jr., DPM [address] [place] [address] Podiatry 02/22/22 Sanju Bill III, 335 [place] [address] Consulting Physician Vascular Surgery 03/17/22 Sheet Metal Duct Installer Relationship Specialty Start Date End Date Vivien Foreman MD [address] [place], [place] [id number] PCP - General Family Medicine 12/16/20 Radha Hughes, JOHN [address] [place], [place] [id number] Nurse Practitioner Nurse Practitioner 02/22/22 Preston Healy MD [address] [place] [address] Consulting Physician Cardiovascular Disease 02/22/22 Adilson Stone MD [address] [place] [id number] Cardiology 02/22/22 Hola Arroyo Jr., DPM [address] [place], [place] [address] Podiatry 02/22/22 Sanju Bill III, DO [address] [place] [address] Consulting Physician Vascular Surgery 03/17/22 Sheet Metal Duct Installer Relationship Specialty Start Date End Date Vivien Foreman MD [address] [place] [address] PCP - General Family Medicine 12/16/20 Radha Hughes, JOHN [address] [place], [place] [phone] Nurse Practitioner Nurse Practitioner 02/22/22 Preston Healy MD [address] [place] [address] Consulting Physician Cardiovascular Disease 02/22/22 Adilson Stone MD [address] [place] [address] Cardiology 02/22/22 Hola Arroyo Jr., DPM [address] [place] [address] Podiatry 02/22/22 Sanju Bill III, DO [address] [place] [address] Consulting Physician Vascular Surgery 03/17/22 Sheet Metal Duct Installer Relationship Specialty Start Date End Date Vivien Foreman MD [address] [address] PCP - General Family Medicine 12/16/20 Radha Hughes CNP [facility] [address] [address] Nurse Practitioner Nurse Practitioner 02/22/22 Preston Healy MD [address] [place] [address] Consulting Physician Cardiovascular Disease 02/22/22 Adilson Stone MD [address] [place] [address] Cardiology 02/22/22 Hola Arroyo Jr. DPM [address] [place] [address] Podiatry 02/22/22 Sanju Bill III, DO [address] [facility] [place] [address] Consulting Physician Vascular Surgery 03/17/22 Sheet Metal Duct Installer Relationship Specialty Start Date End Date Vivien Foreman MD [address] [address] PCP - General Family Medicine 12/16/20 Radha Hughes CNP [address] [address] Nurse Practitioner Nurse Practitioner 02/22/22 Preston Healy MD [address] [place] [address] Consulting Physician Cardiovascular Disease 02/22/22 Adilson Stone MD [address] [place] [address] Cardiology 02/22/22 Hola Arroyo Jr., DPOlegario [address] [place] [address] Podiatry 02/22/22 Sanju Bill III, DO [address] [facility] [place] [address] Consulting Physician Vascular Surgery 03/17/22 Sheet Metal Duct Installer Relationship Specialty Start Date End Date Vivien Foreman MD [address] [address] PCP - General Family Medicine 12/16/20 Radha Hughes, JOHN [facility] [address] [address] Nurse Practitioner Nurse Practitioner 02/22/22 Preston Healy MD 335 [place] [address] Consulting Physician Cardiovascular Disease 02/22/22 Adilson Stone MD [address] [place] [address] Cardiology 02/22/22 Hola Arroyo Jr., DPM [address] [place] [address] Podiatry 02/22/22 Sanju Bill III, DO [address] [place] [address] Consulting Physician Vascular Surgery 03/17/22 Sheet Metal Duct Installer Relationship Specialty Start Date End Date Vivien Foreman MD [facility] [address] [address] PCP - General Family Medicine 12/16/20 Radha Hughes, JOHN [address] [address] Nurse Practitioner Nurse Practitioner 02/22/22 Preston Healy MD [address] [place] [address] Consulting Physician Cardiovascular Disease 02/22/22 Adilson Stone MD [address] [place] [address] Cardiology 02/22/22 Hola Arroyo Jr., DPM [address] [place] [address] Podiatry 02/22/22 Sanju Bill III, DO [address] [place] [address] Consulting Physician Vascular Surgery 03/17/22 Sheet Metal Duct Installer Relationship Specialty Start Date End Date Vivien Foreman MD [facility] [address] [address] PCP - General Family Medicine 12/16/20 Radha Hughes CNP [facility] [address] [address] Nurse Practitioner Nurse Practitioner 02/22/22 Preston Healy MD [address] [place] [address] Consulting Physician Cardiovascular Disease 02/22/22 Adilson Stone MD [address] [place] [address] Cardiology 02/22/22 Hola Arroyo Jr., DPM [address] [place] [address] Podiatry 02/22/22 Sanju Bill III, DO [address] [place] [address] Consulting Physician Vascular Surgery 03/17/[address] Dietitian Case Management 07/20/23 Sheet Metal Duct Installer Relationship Specialty Start Date End Date Vivien Foreman MD [address] [address] PCP - General Family Medicine 12/16/20 Radha Hughes CNP [facility] [address] [address] Nurse Practitioner Nurse Practitioner 02/22/22 Preston Healy MD [address] [facility] [place] [address] Consulting Physician Cardiovascular Disease 02/22/22 Adilson Stone MD 335 [facility] [place] [address] Cardiology 02/22/22 Hola Arroyo Jr., SAMIR [address] [place] [address] Podiatry 02/22/22 Sanju Bill III, DO [address] [place] [address] Consulting Physician Vascular Surgery 03/17/[address] Dietitijose Case Management 07/20/23 Sheet Metal Duct Installer Relationship Specialty Start Date End Date Vivien Foreman MD [address] [address] PCP - General Family Medicine 12/16/20 Radha Hughes, JOHN [address] [address] Nurse Practitioner Nurse Practitioner 02/22/22 Preston Healy MD 335 [place] [address] Consulting Physician Cardiovascular Disease 02/22/22 Adilson Stone MD [address] [place] [address] Cardiology 02/22/22 Hola Arroyo Jr. DPOlegario [address] [place] [address] Podiatry 02/22/22 Sanju Bill III, DO [address] [place] [address] Consulting Physician Vascular Surgery 03/17/[address] Dietitian Case Management 07/20/23 Sheet Metal Duct Installer Relationship Specialty Start Date End Date Vivien Foreman MD [facility] [address] [address] PCP - General Family Medicine 12/16/20 Radha Hughes, JOHN [address] [address] Nurse Practitioner Nurse Practitioner 02/22/22 Preston Healy MD [address] [place] [address] Consulting Physician Cardiovascular Disease 02/22/22 Adilson Stone MD [address] [place] [address] Cardiology 02/22/22 Hola Arroyo Jr., DPM [address] [place] [address] Podiatry 02/22/22 Sanju Bill III, DO [address] [place] [address] Consulting Physician Vascular Surgery 03/17/[address] Dietitian Case Management 07/20/23 Sheet Metal Duct Installer Relationship Specialty Start Date End Date Vivien Foreman MD [facility] [address] [address] PCP - General Family Medicine 12/16/20 Radha Hughes, JOHN [facility] [address] [address] Nurse Practitioner Nurse Practitioner 02/22/22 Preston Healy MD [address] [place] [address] Consulting Physician Cardiovascular Disease 02/22/22 Adilson Stone MD [address] [place] [address] Cardiology 02/22/22 Hola Arroyo Jr. DPOlegario 45 [place] [address] Podiatry 02/22/22 Sanju Bill III, DO [address] [place] [address] Consulting Physician Vascular Surgery 03/17/[address] Dietitian Case Management 07/20/23 Sheet Metal Duct Installer Relationship Specialty Start Date End Date Vivien Foreman MD [address] [address] PCP - General Family Medicine 12/16/20 Radha Hughes CNP [facility]0 [place] [phone] Nurse Practitioner Nurse Practitioner 02/22/22 Preston Healy MD [address] [place] [address] Consulting Physician Cardiovascular Disease 02/22/22 Adilson Stone MD [address] [place] [address] Cardiology 02/22/22 Hola Arroyo Jr., DPOlegario [address] [place] [address] Podiatry 02/22/22 Sanju Bill III, DO [address] [place] [address] Consulting Physician Vascular Surgery 03/17/[address] Dietitian Case Management 07/20/23 Sheet Metal Duct Installer Relationship Specialty Start Date End Date Vivien Foreman MD [facility] [address] [address] PCP - General Family Medicine 12/16/20 Radha Hughes CNP [facility] [address] [address] Nurse Practitioner Nurse Practitioner 02/22/22 Preston Healy MD [address] [place] [phone] Consulting Physician Cardiovascular Disease 02/22/22 Adilson Stone MD [address] [place], [place] [phone] Cardiology 02/22/22 Hola Arroyo Jr., DPM [address] [place], [place] [address] Podiatry 02/22/22 Sanju Bill III, DO [address] [place] [address] Consulting Physician Vascular Surgery 03/17/[address] Dietitian Case Management 07/20/23 Sheet Metal Duct Installer Relationship Specialty Start Date End Date Vivien Foreman MD [facility] [address] [address] PCP - General Family Medicine 12/16/20 Radha Hughes CNP [address] [address] Nurse Practitioner Nurse Practitioner 02/22/22 Preston Healy MD [address] [place] [address] Consulting Physician Cardiovascular Disease 02/22/22 Adilson Stone MD [address] [place] [address] Cardiology 02/22/22 Hola Arroyo Jr., DPM [address] [place] [address] Podiatry 02/22/22 Sanju Bill III, DO [address] [place] [address] Consulting Physician Vascular Surgery 03/17/[address] Dietitian Case Management 07/20/23 Sheet Metal Duct Installer Relationship Specialty Start Date End Date Vivien Foreman MD [facility] [address] [address] PCP - General Family Medicine 12/16/20 Radha Hughes CNP [address] [address] Nurse Practitioner Nurse Practitioner 02/22/22 Preston Healy MD [address] [place] [address] Consulting Physician Cardiovascular Disease 02/22/22 Adilson Stone MD [address] [place] [address] Cardiology 02/22/22 Hola Arroyo Jr., DPM [address] [place] [address] Podiatry 02/22/22 Sanju Bill III, DO [address] [place] [address] Consulting Physician Vascular Surgery 03/17/[address] Dietitian Case Management 07/20/23 Sheet Metal Duct Installer Relationship Specialty Start Date End Date Vivien Foreman MD [address] [address] PCP - General Family Medicine 12/16/20 Radha Hughes, JOHN [address] [address] Nurse Practitioner Nurse Practitioner 02/22/22 Preston Healy MD [address] [place] [address] Consulting Physician Cardiovascular Disease 02/22/22 Adilson Stone MD [address] [place] [address] Cardiology 02/22/22 Hola Arroyo Jr., DPM [address] [place] [address] Podiatry 02/22/22 Sanju Bill III, DO [address] [place] [address] Consulting Physician Vascular Surgery 03/17/[address] Dietitian Case Management 07/20/23 Sheet Metal Duct Installer Relationship Specialty Start Date End Date Vivien Foreman MD [facility] [address] [address] PCP - General Family Medicine 12/16/20 Radha Hughes CNP [facility] [address] [address] Nurse Practitioner Nurse Practitioner 02/22/22 Preston Healy MD [address] [place] [phone] Consulting Physician Cardiovascular Disease 02/22/22 Adilson Stone MD [address] [place] [address] Cardiology 02/22/22 Hola Arroyo Jr., DPM [address] [place] [address] Podiatry 02/22/22 Sanju Bill III, DO [address] [place] [address] Consulting Physician Vascular Surgery 03/17/[address] Dietitian Case Management 07/20/23 Sheet Metal Duct Installer Relationship Specialty Start Date End Date Vivien Foreman MD [facility] [address] [address] PCP - General Family Medicine 12/16/20 Radha Hughes CNP [address] [place] [address] Nurse Practitioner Nurse Practitioner 02/22/22 Preston Healy MD [address] [place] [address] Consulting Physician Cardiovascular Disease 02/22/22 Adilson Stone MD [address] [place] [address] Cardiology 02/22/22 Hola Arroyo Jr., DPM [address] [place] [address] Podiatry 02/22/22 Sanju Bill III, DO [address] [place] [address] Consulting Physician Vascular Surgery 03/17/[address] Dietitian Case Management 07/20/23 Sheet Metal Duct Installer Relationship Specialty Start Date End Date Vivien Foreman MD [address] [place] [address] PCP - General Family Medicine 12/16/20 Radha Hughes CNP [address] [place] [address] Nurse Practitioner Nurse Practitioner 02/22/22 Preston Healy MD [address] [place] [address] Consulting Physician Cardiovascular Disease 02/22/22 Adilson Stone MD [address] [place] [phone] Cardiology 02/22/22 Hola Arroyo Jr., SAMIR [address] [place] [id number] Podiatry 02/22/22 Sanju Bill III, DO [address] [place] [phone] Consulting Physician Vascular Surgery 03/17/[address] Dietitian Case Management 07/20/23 Sheet Metal Duct Installer Relationship Specialty Start Date End Date Vivien Foreman MD [address] [place] [phone] PCP - General Family Medicine 12/16/20 Radha Hughes CNP [address] [place] [phone] Nurse Practitioner Nurse Practitioner 02/22/22 Preston Healy MD [address] [place] [address] Consulting Physician Cardiovascular Disease 02/22/22 Adilson Stone MD [address] [place] [address] Cardiology 02/22/22 Hola Arroyo Jr., DPM [address] [place] [address] Podiatry 02/22/22 Sanju Bill III, DO 335 [facility] [place] [address] Consulting Physician Vascular Surgery 03/17/[address] Dietitian Case Management 07/20/23 Sheet Metal Duct Installer Relationship Specialty Start Date End Date Vivien Foreman MD [address] [address] PCP - General Family Medicine 12/16/20 Radha Hughes CNP [address] [address] Nurse Practitioner Nurse Practitioner 02/22/22 Preston Healy MD [address] [place] [address] Consulting Physician Cardiovascular Disease 02/22/22 Adilson Stone MD [address] [place] [address] Cardiology 02/22/22 Hola Arroyo Jr., SAMIR [address] [place] [address] Podiatry 02/22/22 Sanju Bill III, DO [address] [place] [address] Consulting Physician Vascular Surgery 03/17/[address] Dietitijose Case Management 07/20/23 Sheet Metal Duct Installer Relationship Specialty Start Date End Date Vivien Foreman MD [facility] [address] [address] PCP - General Family Medicine 12/16/20 Radha Hughes, JOHN [facility] [address] [address] Nurse Practitioner Nurse Practitioner 02/22/22 Preston Healy MD [address] [place] [address] Consulting Physician Cardiovascular Disease 02/22/22 Adilson Stone MD [address] [place] [address] Cardiology 02/22/22 Hola Arroyo Jr., DPM [address] [place] [address] Podiatry 02/22/22 Sanju Bill III, DO [address] [place] [address] Consulting Physician Vascular Surgery 03/17/22 Sheet Metal Duct Installer Relationship Specialty Start Date End Date Vivien Foreman MD [facility] [address] [address] PCP - General Family Medicine 12/16/20 Radha Hughes CNP [facility] [address] [address] Nurse Practitioner Nurse Practitioner 02/22/22 Preston Healy MD [address] [facility] [place] [address] Consulting Physician Cardiovascular Disease 02/22/22 Adilson Stone MD [address] [place] [address] Cardiology 02/22/22 Hola Arroyo Jr., DPM [address] [place] [address] Podiatry 02/22/22 Sanju Bill III, DO 335 [facility] [place] [address] Consulting Physician Vascular Surgery 03/17/22 Sheet Metal Duct Installer Relationship Specialty Start Date End Date Vivien Foreman MD [address] [place] [phone] PCP - General Family Medicine 12/16/20 Radha Hughes CNP [address] [address] Nurse Practitioner Nurse Practitioner 02/22/22 Preston Healy MD [address] [place] [address] Consulting Physician Cardiovascular Disease 02/22/22 Adilson Stone MD [address] [place] [address] Cardiology 02/22/22 Hola Arroyo Jr., DPM [address] [place] [address] Podiatry 02/22/22 Sanju Bill III, DO [address] [place] [address] Consulting Physician Vascular Surgery 03/17/22 Sheet Metal Duct Installer Relationship Specialty Start Date End Date Vivien Foreman MD [facility]0 [place] [phone] PCP - General Family Medicine 12/16/20 Radha Hughes CNP [address] [place], [place] [phone] Nurse Practitioner Nurse Practitioner 02/22/22 Preston Healy MD [address] [place], [place] [phone] Consulting Physician Cardiovascular Disease 02/22/22 Adilson Stone MD [address] [place] [address] Cardiology 02/22/22 Hola Arroyo Jr., [place] [address] Podiatry 02/22/22 Sanju Bill III, DO [address] [place] [address] Consulting Physician Vascular Surgery 03/17/22 Sheet Metal Duct Installer Relationship Specialty Start Date End Date Vivien Foreman MD [address] [place] [address] PCP - General Family Medicine 12/16/20 Radha Hughes CNP [address] [place], [place] [phone] Nurse Practitioner Nurse Practitioner 02/22/22 Preston Healy MD [address] [place] [address] Consulting Physician Cardiovascular Disease 02/22/22 Adilson Stone MD [address] [place] [address] Cardiology 02/22/22 Hola Arroyo Jr., DPM [address] [place], [place] [address] Podiatry 02/22/22 Sanju Bill III, DO [address] [place] [address] Consulting Physician Vascular Surgery 03/17/22 Sheet Metal Duct Installer Relationship Specialty Start Date End Date Vivien Foreman MD [address] [place] [address] PCP - General Family Medicine 12/16/20 Radha Hughes CNP [address] [place] [address] Nurse Practitioner Nurse Practitioner 02/22/22 Preston Healy MD [address] [place] [address] Consulting Physician Cardiovascular Disease 02/22/22 Adilson Stone MD 335 [facility] [place] [address] Cardiology 02/22/22 Hola Arroyo Jr., DPM [address] [place] [address] Podiatry 02/22/22 Sanju Bill III, DO [address] [place] [address] Consulting Physician Vascular Surgery 03/17/22 Sheet Metal Duct Installer Relationship Specialty Start Date End Date Vivien Foreman MD [address] [address] PCP - General Family Medicine 12/16/20 Radha Hughes CNP [address] [address] Nurse Practitioner Nurse Practitioner 02/22/22 Preston Healy MD [address] [place] [address] Consulting Physician Cardiovascular Disease 02/22/22 Adilson Stone MD [address] [place] [address] Cardiology 02/22/22 Hola Arroyo Jr., DPOlegario [address] [place] [address] Podiatry 02/22/22 Sanju Bill III, DO [address] [place] [address] Consulting Physician Vascular Surgery 03/17/22 Sheet Metal Duct Installer Relationship Specialty Start Date End Date Vivien Foreman MD [facility] [address] [address] PCP - General Family Medicine 12/16/20 Radha Hughes, EXCELLENCE MANAGER [address] [place] [address] Nurse Practitioner Nurse Practitioner 02/22/22 Preston Healy MD [address] [place] [address] Consulting Physician Cardiovascular Disease 02/22/22 Adilson Stone MD [address] [place] [address] Cardiology 02/22/22 Hola Arroyo Jr., DPM [address] [place] [address] Podiatry 02/22/22 Sanju Bill III, DO [address] [place] [address] Consulting Physician Vascular Surgery 03/17/22 Sheet Metal Duct Installer Relationship Specialty Start Date End Date Vivien Foreman MD [facility] [address] [address] PCP - General Family Medicine 12/16/20 Radha Hughes, JOHN [address] [address] Nurse Practitioner Nurse Practitioner 02/22/22 Preston Healy MD [address] [place] [address] Consulting Physician Cardiovascular Disease 02/22/22 Adilson Stone MD [address] [place] [address] Cardiology 02/22/22 Hola Arroyo Jr., DPM [address] [place] [address] Podiatry 02/22/22 Sanju Bill III, DO [address] [place] [address] Consulting Physician Vascular Surgery 03/17/22 Sheet Metal Duct Installer Relationship Specialty Start Date End Date Vivien Foreman MD [facility] [address] [address] PCP - General Family Medicine 12/16/20 Radha Hughes CNP [facility] [address] [address] Nurse Practitioner Nurse Practitioner 02/22/22 Preston Healy MD [address] [place] [address] Consulting Physician Cardiovascular Disease 02/22/22 Adilson Stone MD [address] [place] [address] Cardiology 02/22/22 Hola Arroyo Jr. DPOlegario [address] [place] [address] Podiatry 02/22/22 Sanju Bill III, [address] [facility] [place] [address] Consulting Physician Vascular Surgery 03/17/22 Sheet Metal Duct Installer Relationship Specialty Start Date End Date Vivien Foreman MD [address] [address] PCP - General Family Medicine 12/16/20 Radha Hughes CNP [address] [place] [phone] Nurse Practitioner Nurse Practitioner 02/22/22 Preston Healy MD [address] [place] [address] Consulting Physician Cardiovascular Disease 02/22/22 Adilson Stone MD [address] [place] [address] Cardiology 02/22/22 Hola Arroyo Jr. DPOlegario [address] [place] [address] Podiatry 02/22/22 Sanju Bill III, DO [address] [place] [address] Consulting Physician Vascular Surgery 03/17/22 Sheet Metal Duct Installer Relationship Specialty Start Date End Date Vivien Foreman MD [facility] [address] [address] PCP - General Family Medicine 12/16/20 Radha Hughes, JOHN [facility] [address] [address] Nurse Practitioner Nurse Practitioner 02/22/22 Preston Healy MD [address] [place] [address] Consulting Physician Cardiovascular Disease 02/22/22 Adilson Stone MD [address] [place] [address] Cardiology 02/22/22 Hola Arroyo Jr., DPM [address] [place] [address] Podiatry 02/22/22 Sanju Bill III, DO [address] [place] [address] Consulting Physician Vascular Surgery 03/17/22 Sheet Metal Duct Installer Relationship Specialty Start Date End Date Vivien Foreman MD [facility] [address] [address] PCP - General Family Medicine 12/16/20 Radha Hughes, JOHN [facility] [address] [address] Nurse Practitioner Nurse Practitioner 02/22/22 Preston Healy MD [address] [facility] [place] [address] Consulting Physician Cardiovascular Disease 02/22/22 Adilson Stone MD [address] [facility] [place] [address] Cardiology 02/22/22 Hola Arroyo Jr., DPM [address] [place] [address] Podiatry 02/22/22 Sanju Bill III, DO [address] [place] [address] Consulting Physician Vascular Surgery 03/17/22 Sheet Metal Duct Installer Relationship Specialty Start Date End Date Vivien Foreman MD [address] [address] PCP - General Family Medicine 12/16/20 Radha Hughes CNP [address] [address] Nurse Practitioner Nurse Practitioner 02/22/22 Preston Healy MD 335 [facility] [place] [address] Consulting Physician Cardiovascular Disease 02/22/22 Adilson Stone MD [address] [place] [address] Cardiology 02/22/22 Hola Arroyo Jr., DPM [address] [place] [address] Podiatry 02/22/22 Sanju Bill III, DO [address] [facility] [place] [address] Consulting Physician Vascular Surgery 03/17/22 Sheet Metal Duct Installer Relationship Specialty Start Date End Date Vivien Foreman MD [address] [address] PCP - General Family Medicine 12/16/20 Radha Hughes CNP [facility] [address] [address] Nurse Practitioner Nurse Practitioner 02/22/22 Preston Healy MD 335 [facility] [place] [address] Consulting Physician Cardiovascular Disease 02/22/22 Adilson Stone MD [address] [place] [address] Cardiology 02/22/22 Hola Arroyo Jr., SAMIR [address] [place] [address] Podiatry 02/22/22 Sanju Bill III, DO [address] [facility] [place] [address] Consulting Physician Vascular Surgery 03/17/22 Sheet Metal Duct Installer Relationship Specialty Start Date End Date Vivien Foreman MD [address] [address] PCP - General Family Medicine 12/16/20 Radha Hughes CNP [facility] [address] [address] Nurse Practitioner Nurse Practitioner 02/22/22 Preston Healy MD [address] [place], [place] [id number] Consulting Physician Cardiovascular Disease 02/22/22 Adilson Stone MD [address] [place] [id number] Cardiology 02/22/22 Hola Arroyo Jr., LIONM [address] [place] [address] Podiatry 02/22/22 Sanju Bill III, DO [address] [place] [address] Consulting Physician Vascular Surgery 03/17/22 Sheet Metal Duct Installer Relationship Specialty Start Date End Date Vivien Foreman MD [address] [place] [id number] PCP - General Family Medicine 12/16/20 Radha Hughes CNP [address] [place] [address] Nurse Practitioner Nurse Practitioner 02/22/22 Preston Healy MD [address] [place] [address] Consulting Physician Cardiovascular Disease 02/22/22 Adilson Stone MD [address] [place] [address] Cardiology 02/22/22 Hola Arroyo Jr., DPM [address] [place] [address] Podiatry 02/22/22 Sanju Bill III, DO [address] [place] [address] Consulting Physician Vascular Surgery 03/17/22 Sheet Metal Duct Installer Relationship Specialty Start Date End Date Vivien Foreman MD [facility] [address] [address] PCP - General Family Medicine 12/16/20 Radha Hughes, JOHN [facility] [address] [address] Nurse Practitioner Nurse Practitioner 02/22/22 Preston Healy MD [address] [place] [address] Consulting Physician Cardiovascular Disease 02/22/22 Adilson Stone MD [address] [place] [address] Cardiology 02/22/22 Hola Arroyo Jr., SAMIR [address] [place] [address] Podiatry 02/22/22 Sajnu Bill III, DO [address] [place] [address] Consulting Physician Vascular Surgery 03/17/22 Sheet Metal Duct Installer Relationship Specialty Start Date End Date Vivien Foreman MD [address] [address] PCP - General Family Medicine 12/16/20 Radha Hughes CNP [facility] [address] [address] Nurse Practitioner Nurse Practitioner 02/22/22 Preston Healy MD [address] [place] [address] Consulting Physician Cardiovascular Disease 02/22/22 Adilson Stone MD [address] [place] [address] Cardiology 02/22/22 Hola Arroyo Jr., DPM [address] [place] [address] Podiatry 02/22/22 Sanju Bill III, DO [address] [place] [address] Consulting Physician Vascular Surgery 03/17/22 Sheet Metal Duct Installer Relationship Specialty Start Date End Date Vivien Foreman MD [facility] [address] [address] PCP - General Family Medicine 12/16/20 Radha Hughes CNP [facility] [address] [address] Nurse Practitioner Nurse Practitioner 02/22/22 Preston Healy MD [address] [facility] [place] [address] Consulting Physician Cardiovascular Disease 02/22/22 Adilson Stone MD [address] [facility] [place] [address] Cardiology 02/22/22 Hola Arroyo Jr., DPM [address] [place] [address] Podiatry 02/22/22 Sanju Bill III, DO [address] [place] [address] Consulting Physician Vascular Surgery 03/17/22 Sheet Metal Duct Installer Relationship Specialty Start Date End Date Vivien Foreman MD [address] [place] [address] PCP - General Family Medicine 12/16/20 Radha Hughes CNP [facility] [address] [address] Nurse Practitioner Nurse Practitioner 02/22/22 Preston Healy MD [address] [facility] [place] [address] Consulting Physician Cardiovascular Disease 02/22/22 Adilson Stone MD [address] [place] [address] Cardiology 02/22/22 Hola Arroyo Jr. DPOlegario [address] [place] [address] Podiatry 02/22/22 Sanju Bill III, DO [address] [place] [address] Consulting Physician Vascular Surgery 03/17/22 Sheet Metal Duct Installer Relationship Specialty Start Date End Date Vivien Foreman MD [facility] [address] [address] PCP - General Family Medicine 12/16/20 Radha Hughes CNP [facility] [address] [address] Nurse Practitioner Nurse Practitioner 02/22/22 Preston Healy MD [address] [place] [address] Consulting Physician Cardiovascular Disease 02/22/22 Adilson Stone MD [address] [place] [address] Cardiology 02/22/22 Hola Arroyo Jr., DPM [address] [place] [address] Podiatry 02/22/22 Sanju Bill III, DO [address] [place] [address] Consulting Physician Vascular Surgery 03/17/22 Sheet Metal Duct Installer Relationship Specialty Start Date End Date Vivien Foreman MD [facility] [address] [address] PCP - General Family Medicine 12/16/20 Radha Hughes CNP [address] [place] [address] Nurse Practitioner Nurse Practitioner 02/22/22 Preston Healy MD [address] [place] [address] Consulting Physician Cardiovascular Disease 02/22/22 Adilson Stone MD [address] [place] [address] Cardiology 02/22/22 Hola Arroyo Jr., SAMIR [address] [place] [address] Podiatry 02/22/22 Sanju Bill III, DO [address] [place] [address] Consulting Physician Vascular Surgery 03/17/22 Sheet Metal Duct Installer Relationship Specialty Start Date End Date Vivien Foreman MD [facility] [address] [address] PCP - General Family Medicine 12/16/20 Radha Hughes CNP [address] [place] [address] Nurse Practitioner Nurse Practitioner 02/22/22 Preston Healy MD [address] [facility] [place] [address] Consulting Physician Cardiovascular Disease 02/22/22 Adilson Stone MD [address] [facility] [place] [address] Cardiology 02/22/22 Hola Arroyo Jr., DPM [address] [place] [address] Podiatry 02/22/22 Sanju Bill III, DO [address] [place] [address] Consulting Physician Vascular Surgery 03/17/22 Sheet Metal Duct Installer Relationship Specialty Start Date End Date Vivien Foreman MD [address] [address] PCP - General Family Medicine 12/16/20 Radha Hughes CNP [address] [address] Nurse Practitioner Nurse Practitioner 02/22/22 Preston Healy MD [address] [facility] [place] [address] Consulting Physician Cardiovascular Disease 02/22/22 Adilson Stone MD [address] [place] [address] Cardiology 02/22/22 Hola Arroyo Jr., SAMIR [address] [place] [address] Podiatry 02/22/22 Sanju Bill III, DO [address] [place] [address] Consulting Physician Vascular Surgery 03/17/22 Sheet Metal Duct Installer Relationship Specialty Start Date End Date Vivien Foreman MD [address] [address] PCP - General Family Medicine 12/16/20 Radha Hughes CNP [address] [address] Nurse Practitioner Nurse Practitioner 02/22/22 Preston Healy MD [address] [facility] [place] [address] Consulting Physician Cardiovascular Disease 02/22/22 Adilson Stone MD [address] [facility] [place] [address] Cardiology 02/22/22 Hola Arroyo Jr., DPM [address] [place] [address] Podiatry 02/22/22 Sanju Bill III, DO [address] [place] [address] Consulting Physician Vascular Surgery 03/17/22 Team Status: Active Member Role/Relationship Status Dates VIVIEN FOREMAN MD Primary Care Provider Active Team Status: Active Member Role/Relationship Status Dates Dr. Gaetano Menendez MD Admit Provider Active Star t: February 09, 2025 Dr. Gaetano Menendez MD Attending Provider Active Start: February 09, 2025 Dr. Nik Snyder MD Other Provider Active Start: February 09, 2025 VIVIEN FOREMAN MD Primary Care Provider Active Start: February 09, 2025 Team Status: Inactive Member Role/Relationship Status Dates VIVIEN FOREMAN MD Primary Care Provider Active Start: February 18, 2025 End: February 18, 2025 VIVIEN FOREMAN MD Referring Provider Active Sta rt: February 18, 2025 End: February 18, 2025 Dr. Kali Gar DO Attending Provider Active Start: February 18, 2025 End: February 18, 2025 Team Status: Active Member Role/Relationship Status Dates VIVIEN FOREMAN MD Primary Care Provider Active Start: February 18, 2025 VIVIEN FOREMAN MD Referring Provider Active Sta rt: February 18, 2025 Dr. Kali Gar DO Attending Provider Active Start: February 18, 2025 Dr. Kali Gar DO Other Provider Active St art: February 18, 2025 Scheduled Active and Recently Administ ered Medications (unrecognized section and content) Medication Order 02/07/2025 02/08/2025 02/09/2025 apixaban (ELIQUIS) tablet 5 mg (CANCELED) 5 mg, Oral, 2 times daily, First dose on Tue02/06/25 at 2000, For atrial fibrillation only - If two of the following then reduce dose to 2.5 mg twice daily: 1.) Age greater than or equal to 79 2.) Weight less than or equal to 60 kg 3.) SCr greater than or equal to 1.5 mg/dL or ESRD, Indication: Atrial Fibrillation 823 (Given - Provider: Farrah Venegas, RYLEY)2211 (Given - Provider: Jonathon Corrigan, RYLEY) 803 (Given - Provider: Jaclyn Ramos RN)2119 (Given - Provider: Chhaya Real, RYLEY) 822 (Given - Provider: Sofi Mcneal, RYLEY) aspirin EC tablet 81 mg 81 mg, Oral, Daily, First dose on Tue01/29/25 at 0900, DO NOT CRUSH OR CHEW. 0824 (Given - Provider: Farrah Venegas RN) 0804 (Given - Provider: Jaclyn Ramos, RYLEY) 0822 (Given - Provider: Sofi Mcneal, RYLEY) bumetanide (BUMEX) tablet 1 mg 1 mg, Oral, Daily, First dose on Tue02/08/25 at 0930, Hold for SBP less than 90 0951 (Given - Provider: Jaclyn Ramos RN) 0823 (Given - Provider: Sofi Mcneal, RYLEY) cefTRIAXone (ROCEPHIN) IVPB 2 g (premix) 2,000 mg, Intravenous, at 100 mL/hr, Every 24 hours, First dose on Tue02/09/25 at 0015, Indication: Bacteremia 0107 (New Bag - Provider: Chhaya Real RN) dextrose 50 % in water (D50W) syringe 12.5 g (COMPLETED) 12.5 g, Intravenous, Once, On Martha 02/07/25 at 0700, For 1 dose, Per Hypoglycemia Protocol: Blood Sugar: 51-69 mg/dL. Patient Condition: and patient is NPO, or NOT ALERT, or is UNABLE to swallow/eat. Intervention: Administer HALF amp (12.5 grams) of D50% intravenously (IV) 0612 (Given - Provider: Farrah Venegas RN) escitalopram oxalate (LEXAPRO) tablet 10 mg 10 mg, Oral, Nightly, First dose on Tue01/28/25 at 2235 0825 (Unheld by provider - Provider: Kelly Burton MD)2212 (Given - Provider: Jonathon Corrigan RN) 212 (Given - Provider: Chhaya Real RN) fluconazole (DIFLUCAN) tablet 200 mg (CANCELED) 200 mg, Oral, Daily, First dose on Martha 02/07/25 at 1200, For 14 days, CATEGORY D HAZARDOUS DRUG use safe handling precautions. Use reference link to view PPE guidelines. Minimize crushing/splitting only to situations where clinically necessary., Indication: Esophageal Candidiasis 1127 (Given - Provider: Farrah Venegas RN) fluconazole (DIFLUCAN) tablet 200 mg 200 mg, Oral, Daily, First dose on Tue02/08/25 at 1545, CATEGORY D HAZARDOUS DRUG use safe handling precautions. Use reference link to view PPE guidelines. Minimize crushing/splitting only to situations where clinically necessary., Indication: Esophageal Candidiasis 1510 (Given - Provider: Jaclyn Ramos, RYLEY) 0823 (Given - Provider: Sofi Mcneal, RYLEY) insulin glargine (LANTUS) injection 15 Units (CANCELED) 15 Units, Subcutaneous, 2 times daily, First dose (after last modification) on Tue02/07/25 at 0900, If patient NPO and BG LESS than 100 before procedure, administer half (rounded up to nearest unit) of the glargine insulin (LANTUS) dose; if BG is GREATER than 100, administer the full dose unless otherwise instructed by ordering physician Do not mix with other insulins in a syringe. Do NOT hold basal insulin without notifying physician 0825 (Given - Provider: Farrah Venegas RN) insulin glargine (LANTUS) injection 15 Units 15 Units, Subcutaneous, Daily, First dose (after last modification) on Tue02/08/25 at 0900, If patient NPO and BG LESS than 100 before procedure, administer half (rounded up to nearest unit) of the glargine insulin (LANTUS) dose; if BG is GREATER than 100, administer the full dose unless otherwise instructed by ordering physician Do not mix with other insulins in a syringe. Do NOT hold basal insulin without notifying physician, On hold since Tue02/08/2025 at 0841 until manually unheld 0804 (Given - Provider: Jaclyn Ramos RN)0841 (Held by provider - Provider: Kelly Burton MD - Reason: Other) 0900 (Automatically Held - Provider: Kelly Burton MD)1745 (Unheld by provider - Provider: Discharge Provider, Automatic) insulin lispro (AdmeLOG,HumaLOG) injection 0-15 Units(Linked Group 1) 0-15 Units, Subcutaneous, At bedtime, First dose (after last modification) on Tue02/07/25 at 2100, IF initial POC glucose is greater than 250, administer insulin as directed and re-check POC glucose no sooner than 2 hours after administration. THEN notify provider if POC glucose is still greater than 250., For nightly BG greater than 250, give: Half ( ) Corrective Scale, Nightly Prandial Snack Dosing Method: NO Snack Coverage - Corrective Scale ONLY, Nightly Insulin Dose Corrective Scale: FOLLOW DAYTIME Prandial Corrective Scale, Corrective Insulin Regimen (select desired scale to cover BG result): USUAL Sensitivity Scale, (REMINDER: Nightly Insulin Dose Corrective Scale will be automatically calculated to be of the daytime scale), Dose Reduction Threshold (at meals) for POC Blood Glucose less than or equal to: 80, For Downtime Calculator, use: Insulin SC NIGHTtime, On hold since Tue02/08/2025 at 0841 until manually unheld 2100 (Not Given - Provider: Jonathon Corrigan RN - Reason: Order parameters not met) 0841 (Held by provider - Provider: Kelly Burton MD - Reason: Other)2100 (Automatically Held - Provider: Kelly Burton MD) 1745 (Unheld by provider - Provider: Discharge Provider, Automatic) insulin lispro (AdmeLOG,HumaLOG) injection 0-30 Units 0-30 Units, Subcutaneous, 3 times daily before meals, First dose on Tue01/29/25 at 1130, * Dose should be given EITHER: No sooner than 10-15 minutes BEFORE a meal (Specific Prandial Doses or NO Prandial Dose - Corrective Scale ONLY) - OR - Immediately AFTER meal completed (Carb Counting Ratio), Prandial Insulin Dosing Method: NO Prandial Dose - Corrective Scale ONLY, Corrective Insulin Regimen (select desired scale to cover BG result): USUAL Sensitivity Scale, Dose Reduction Threshold (at meals) for POC Blood Glucose less than or equal to: 80, For Downtime Calculator, use: Insulin SC MEALtime PREprandial, On hold since Tue02/08/2025 at 0841 until manually unheld 0730 (Not Given - Provider: Farrah Venegas RN - Reason: Order parameters not met)1130 (Not Given - Provider: Farrah Venegas RN - Reason: Order parameters not met)1630 (Not Given - Provider: Mathew Lee RN - Reason: Order parameters not met) 0730 (Not Given - Provider: Jaclyn Ramos RN - Reason: Order parameters not met)0841 (Held by provider - Provider: Kelly Burton MD - Reason: Other)1130 (Automatically Held - Provider: Kelly Burton MD)1630 (Automatically Held - Provider: Kelly Burton MD) 0730 (Automatically Held - Provider: Kelly Burton MD)1130 (Automatically Held - Provider: Kelly Burton MD)1745 (Unheld by provider - Provider: Discharge Provider, Automatic) lisinopriL (PRINIVIL,ZESTRIL) tablet 5 mg 5 mg, Oral, Daily, First dose on Tue01/29/25 at 0900, Hold for SBP less than 110 0900 (Automatically Held) 0841 (Unheld by provider - Provider: Kelly Burton MD)0951 (Given - Provider: Jaclyn Ramos RN) 0900 (Not Given - Provider: Sofi Mcneal RN - Reason: Order parameters not met) magnesium sulfate 2 g in sterile water (SW) 50 mL IVPB (COMPLETED) 2 g, Intravenous, at 50 mL/hr, Once, On Tue02/09/25 at 0645, For 1 dose, 2gm IVPB over 60 minutes x 1 for serum Magnesium in range of 1.4-1.9 mg/dL per Critical/ Intermediate Care Electrolyte Replacement Therapy. 0637 (New Bag - Provider: Chhaya Real RN) metoprolol succinate (TOPROL-XL) 24 hr tablet 12.5 mg 12.5 mg, Oral, Daily, First dose (after last modification) on Tue02/06/25 at 0900, Hold for SBP <100, HR <60 DO NOT CRUSH OR CHEW. 0824 (Given - Provider: Farrah Venegas RN) 0804 (Given - Provider: Jaclyn Ramos RN) 0823 (Given - Provider: Sofi Mcneal, RYLEY) nystatin (MYCOSTATIN) 100,000 unit/mL suspension 500,000 Units (CANCELED) 500,000 Units, Oral, 4 times daily, First dose on Tue02/06/25 at 1700, Swish and SWALLOW, Indication: Oral Candidiasis 0825 (Given - Provider: Farrah Venegas RN)1300 (Not Given - Provider: Farrah Venegas RN - Reason: Other - Comment: per Dr. Burton- give Diflucan pills and discontinue Nystatin)1620 (Given - Provider: Mathew Lee RN)2248 (Given - Provider: Jonathon Corrigan RN) 0810 (Given - Provider: Jaclyn Ramos, RYLEY)1313 (Given - Provider: Jaclyn Ramos RN) pantoprazole (PROTONIX) EC tablet 40 mg 40 mg, Oral, 2 times daily, First dose (after last modification) on Tue02/02/25 at 2100, DO NOT CRUSH OR CHEW. 0824 (Given - Provider: Farrah Venegas RN)2211 (Given - Provider: Jonathon Corrigan RN) 08 (Given - Provider: Jaclyn Ramos RN)2119 (Given - Provider: Chhaya Real, RYLEY) 08 (Given - Provider: Sofi Mcneal, RYLEY) penicillin G potassium 3 million unit/50 mL IVPB 3 Million Units () 3 Million Units, Intravenous, at 200 mL/hr, Every 4 hours, First dose on Tue01/29/25 at 1200, For 63 doses, Indication: Bacteremia 0236 (New Bag - Provider: Girish Meza RN)0511 (New Bag - Provider: Farrah Venegas RN)0937 (New Bag - Provider: Farrah Venegas RN)1324 (New Bag - Provider: Farrah Venegas RN)1805 (New Bag - Provider: Mathew Lee RN)2217 (New Bag - Provider: Jonathon Corrigan RN) 0227 (New Bag - Provider: Arianne Robin RN)0515 (New Bag - Provider: Arianne Robin RN)0943 (New Bag - Provider: Jaclyn Ramos, RYLEY)1015 (Stopped - Provider: Jaclyn Ramos RN)1310 (New Bag - Provider: Jaclyn Ramos RN)1722 (New Bag - Provider: Jaclyn Ramos RN)2126 (New Bag - Provider: Chhaya Real, RYLEY) senna-docusate (SENNA-S) 8.6-50 mg per tablet 1 tablet 1 tablet, Oral, 2 times daily, First dose on Tue01/29/25 at 0900, Do not crush or chew. Hold for loose stool and do not give to patients with ABD surgery. Do Not Crush or Chew if administering orally due to bitter taste. May be crushed if given via tube. 0824 (Given - Provider: Farrah Venegas RN)2099 (Not Given - Provider: Jonathon Corrigan RN - Reason: Patient not available) 08 (Given - Provider: Jaclyn Ramos RN)2119 (Given - Provider: Chhaya Real RN) 08 (Given - Provider: Sofi Mcneal, RYLEY) simvastatin (ZOCOR) tablet 40 mg 40 mg, Oral, At bedtime, First dose on Tue01/28/25 at 2235, On hold since Tue02/07/2025 at 1059 until manually unheld 0825 (Unheld by provider - Provider: Kelly Burton MD)1059 (Held by provider - Provider: Kelly Burton MD - Reason: Other)2100 (Automatically Held - Provider: Kelly Burton MD) 2100 (Automatically Held - Provider: Kelly Burton MD) 1745 (Unheld by provider - Provider: Discharge Provider, Automatic) sodium chloride (PF) (NS) flush 5 mL(Linked Group 2) 5 mL, Intravenous, Every 8 hours scheduled, First dose on Tue01/28/25 at 2235, Saline lock 0512 (Given - Provider: Farrah Venegas RN)1325 (Given - Provider: Farrah Venegas RN)2200 (Not Given - Provider: Jonathon Corriagn RN - Reason: Other - Comment: iv infusing) 0600 (Not Given - Provider: Arianne Robin RN - Reason: Other - Comment: iv infusing)1314 (Given - Provider: Jaclyn Ramos, RYLEY)2126 (Given - Provider: Chhaya Real, RYLEY) 0634 (Given - Provider: Chhaya Real, RYLEY)1400 (Not Given - Provider: Sofi Mcneal RN - Reason: Loss of IV access) tamsulosin (FLOMAX) 24 hr capsule 0.4 mg 0.4 mg, Oral, After evening meal, First dose on Tue02/07/25 at 1800, DO NOT CRUSH OR CHEW. Give 30 minutes after the same meal daily. Monitor for orthostasis due to potential risk of syncope. 1757 (Given - Provider: Mathew Lee RN) 1724 (Given - Provider: Jaclyn Ramos, RYLEY) Continuous Medication Order 02/07/2025 02/08/2025 02/09/2025 dextrose 5 % infusion (CANCELED) 50 mL/hr, Intravenous, Continuous, Starting on 02/02/25 at 0645 0617 (New Bag - Provider: Farrah Venegas RN) 0233 (New Bag - Provider: Arianne Robin, RYLEY)1838 (Stopped - Provider: Jaclyn RamosRYLEY) PRN Medication Order 02/07/2025 02/08/2025 02/09/2025 melatonin tablet 3 mg 3 mg, Oral, Nightly PRN, sleep, Starting on Tue01/31/25 at 0957 naloxone (NARCAN) injection 0.1 mg(Linked Group 3) 0.1 mg, Intravenous, As needed, opioid reversal, For respiratory rate less than or equal to 8 per minute., Starting on Tue01/31/25 at 0957, Mix nalOXone (NARCAN) 0.4 mg (1mL) with 9 mL of Normal Saline to total 10 mL. Administer 0.1 mg (2.5mL) IV Push every 2 minutes until respiratory rate is 10 or greater. naloxone (NARCAN) injection 0.4 mg(Linked Group 3) 0.4 mg, Intravenous, As needed, opioid reversal, patient is pulseless, breathless, and unresponsive, Starting on Tue01/31/25 at 0957, Call a code first, then administer naloxone dose undiluted IV Push over 30 seconds. ondansetron (ZOFRAN) injection 4 mg 4 mg, Intravenous, Every 6 hours PRN, nausea, vomiting, Starting on Tue01/29/25 at 1535 oxyCODONE (ROXICODONE) immediate release tablet 5 mg 5 mg, Oral, Every 4 hours PRN, moderate to severe pain, Starting on Tue01/31/25 at 0957 0517 (Given - Provider: Delmi Robin RN) polyethylene glycol (MIRALAX) powder 17 g 17 g, Oral, 2 times daily PRN, constipation, Starting on Tue02/06/25 at 1201 sodium chloride (PF) (NS) flush 5 mL(Linked Group 2) 5 mL, Intravenous, As needed, line care, Starting on Tue01/28/25 at 2230 sodium chloride 0.9% (NS)(Linked Group 2) 0-150 mL/hr, Intravenous, As needed, To flush line after IV infusions when no maintenance IV ordered or a compatibility issue. Infuse 20ml at the same rate as the secondary infusion, Starting on Tue01/28/25 at 2230, Run as Primary IV. NOT intended for KVO. Linked Groups Order Group 1: insulin lispro (AdmeLOG,HumaLOG) injection 0-15 UnitsJump to med 0-15 Units, Subcutaneous, At bedtime, First dose (after last modification) on Tue02/07/25 at 2100, IF initial POC glucose is greater than 250, administer insulin as directed and re-check POC glucose no sooner than 2 hours after administration. THEN notify provider if POC glucose is still greater than 250., For nightly BG greater than 250, give: Half ( ) Corrective Scale, Nightly Prandial Snack Dosing Method: NO Snack Coverage - Corrective Scale ONLY, Nightly Insulin Dose Corrective Scale: FOLLOW DAYTIME Prandial Corrective Scale, Corrective Insulin Regimen (select desired scale to cover BG result): USUAL Sensitivity Scale, (REMINDER: Nightly Insulin Dose Corrective Scale will be automatically calculated to be of the daytime scale), Dose Reduction Threshold (at meals) for POC Blood Glucose less than or equal to: 80, For Downtime Calculator, use: Insulin SC NIGHTtime, On hold since Tue02/08/2025 at 0841 until manually unheld And Notify physician (CANCELED) Routine, Until discontinued, Starting on Tue02/07/25 at 1103, Until Specified, Other: IF HS POC Glucose RE-CHECK Greater than 250, If initial HS POC glucose is greater than 250, administer insulin as directed and re-check POC glucose no sooner than 2 hours after administration. IF RE-CHECK POC glucose is still greater than 250, notify provider. Group 2: Saline lock IV (CANCELED) Routine, Continuous, Starting on Tue01/28/25 at 2231, Until Specified And sodium chloride (PF) (NS) flush 5 mLJump to med 5 mL, Intravenous, As needed, line care, Starting on Tue01/28/25 at 2230 And sodium chloride (PF) (NS) flush 5 mLJump to med 5 mL, Intravenous, Every 8 hours scheduled, First dose on Tue01/28/25 at 2235, Saline lock And sodium chloride 0.9% (NS)Jump to med 0-150 mL/hr, Intravenous, As needed, To flush line after IV infusions when no maintenance IV ordered or a compatibility issue. Infuse 20ml at the same rate as the secondary infusion, Starting on Tue01/28/25 at 2230, Run as Primary IV. NOT intended for KVO. Group 3: naloxone (NARCAN) injection 0.1 mgJump to med 0.1 mg, Intravenous, As needed, opioid reversal, For respiratory rate less than or equal to 8 per minute., Starting on Martha 01/31/25 at 0957, Mix nalOXone (NARCAN) 0.4 mg (1mL) with 9 mL of Normal Saline to total 10 mL. Administer 0.1 mg (2.5mL) IV Push every 2 minutes until respiratory rate is 10 or greater. And Notify physician (CANCELED) STAT, Until discontinued, Starting on Martha 01/31/25 at 0958, Until Specified, Respiratory rate less than: 8, For respiratory rate less than or equal to 8, notify physician and/or appropriate staff for additional orders. And naloxone (NARCAN) injection 0.4 mgJump to med 0.4 mg, Intravenous, As needed, opioid reversal, patient is pulseless, breathless, and unresponsive, Starting on Martha 01/31/25 at 0957, Call a code first, then administer naloxone dose undiluted IV Push over 30 seconds. FOR RECORDS PERTAINING TO PATIENTS WHO ARE OR HAVE BEEN ENROLLED IN A CHEMICAL DEPENDENCY/SUBSTANCEABUSE PROGRAM, SOME INFORMATION MAY BE OMITTED. This clinical summary was aggregated from multiple sources. Caution should be exercised in using it in the provision of clinical care. This summary normalizes information from multiple sources, and as a consequence, information in this document may materially change the coding, format and clinical context of patient data. In addition, data may be omitted in some cases. CLINICAL DECISIONS SHOULD BE BASED ON THE PRIMARY CLINICAL RECORDS. [facility] [employer] [facility]. provides no warranty or guarantee of the accuracy or completeness of information in this document.
--- NOTE | 2025-02-24 12:20 | CT_ITS ---
EXAM: CT scan of the left hand and wrist with contrast CLINICAL HISTORY: Clinical concern for infection. COMPARISON: None. TECHNIQUE: Multi planer axial, sagittal and coronal views of the left hand. FINDINGS: There is a 3.7 AP, 6 cm longitudinal and 3.7 transverse peripherally enhancing collection which contains air at the dorsal and medial aspect of the left wrist surrounding the ulnar head and consistent with an abscess. The collection extends to the dorsal aspect of the hand. Surrounding soft tissue edema. Extensive lytic changes at the ulnar head and to a lesser degree the radial head, also the proximal scaphoid, lunate and capitate bones consistent with osteomyelitis. Vascular atherosclerotic calcifications consistent with known history of diabetes. CT/Extremity Upper WITH Contrast IMPRESSION: A 3.7 AP, 6 cm longitudinal and 3.7 transverse peripherally enhancing collectio n which contains air at the dorsal and medial aspect of the left wrist surrounding the ulnar head and consistent with an absc ess. Extensive lytic changes at the ulnar head and to a lesser degree the radial hea d, also the proximal scaphoid, lunate and capitate bones consistent with osteomyelitis. Reading Location: [facility]
== END | disposition home or self-care (01) ==
LOC: CT 11:31
PROVIDERS: PCP Family Medicine; Visit Provider Family Medicine Geriatric Medicine
DX: M79.89 Other specified soft tissue disorders (principal)
CPT/HCPCS: 73201; Q9967; A4216